=== PATIENT | female | born 1975 | race Caucasian/White ===

== ENCOUNTER → 2021-09-28 | Outpatient (REF) | payer MEDICAID, SELFPAY ==
[2021-09-28 06:47] LABS: Absolute Lymphocyte Count 2.91 X10^3/uL (0.83-4.51); Absolute Neutrophil Count 3.5 X10^3/uL (2.0-7.7); Basophil# 0.05 X10^3/uL; Basophil% 0.7 % (0-1); Eosinophils% 2.8 % (0-5); Hematocrit 43.9 % (37-47); Lymphocyte # 2.91 X10^3/ul (0.83-4.51); Lymphocyte % 40.9 % (19-41); Mean Corp Hgb Conc 34.2 g/dL (32-36); Mean Corpuscular Hgb 30.2 pg (27.0-32.0); Mean Corpuscular Volume 88.5 fL (81-99); Mean Platelet Vol. 12.3 fl (6.2-12.0); Monocyte# 0.46 X10^3/uL; Monocyte% 6.5 % (0-10); NRBC Flagged by Analyzer 0 % (0-5); Neutrophil # 3.48 X10^3/uL (2.7-7.7); Platelet Count 247 K/mm3 (150-450); RBC Distribution Width CV 13.6 % (11.6-14.6); RBC Distribution Width SD 43.6 fl (35.1-43.9); Red Blood Count 4.96 M/mm3 (4.2-5.4); White Blood Count 7.1 K/mm3 (4.4-11.0)
[2021-09-28 07:13] LABS: ALB/GLOB Ratio 0.8 RATIO (0.9-2.4); AST(SGOT) 11 U/L (15-37); Alanine Aminotransfer ALT/SGPT 26 U/L (13-56); Alkaline Phosphatase 130 U/L (45-117); Anion Gap 5 (5-15); BUN 18 mg/dL (7-18); BUN/Creat Ratio 35.9 RATIO (10-20); Calcium,Total 8.6 mg/dL (8.5-10.1); Chloride 111 mmol/L (98-107); EST Glomerular Filtration Rate 141 mL/min (>60); Est Glom Filt Rate - Afr Amer 170 mL/min (>60); Glucose 93 mg/dL (74-106); Potassium 3.7 mmol/L (3.5-5.1); Sodium Level 139 mmol/L (136-145)
[2021-09-28 07:19] LABS: Carbamazepine (Tegretol) < 0.5 ug/mL (4.0-12.0)
== END | disposition home or self-care (01) ==
LOC: OLS.SANC 04:50
PROVIDERS: Referring Provider Internal Medicine; Visit Provider Internal Medicine
DX: D64.9 Anemia, unspecified (principal); G40.909 Epilepsy, unspecified, not intractable, without status epilepticus
CPT/HCPCS: 36415; 80053; 80156; 85025

== ENCOUNTER → 2021-12-29 | Outpatient (REF) | payer MEDICAID, SELFPAY ==
[2021-12-29 10:48] LABS: Hematocrit 42.8 % (37-47); Hemoglobin 13.5 g/dL (12.0-15.0); Mean Corp Hgb Conc 31.5 g/dL (32-36); Mean Corpuscular Hgb 29.5 pg (27.0-32.0); Mean Corpuscular Volume 93.7 fL (81-99); Mean Platelet Vol. 12.6 fl (6.2-12.0); Platelet Count 241 K/mm3 (150-450); RBC Distribution Width CV 13.3 % (11.6-14.6); RBC Distribution Width SD 45.9 fl (35.1-43.9); Red Blood Count 4.57 M/mm3 (4.2-5.4); White Blood Count 5.8 K/mm3 (4.4-11.0)
[2021-12-29 11:10] LABS: ALB/GLOB Ratio 0.8 RATIO (0.9-2.4); AST(SGOT) 16 U/L (15-37); Alanine Aminotransfer ALT/SGPT 30 U/L (13-56); Albumin, Serum 2.9 g/dL (3.2-5.0); Alkaline Phosphatase 106 U/L (45-117); Anion Gap 7 (5-15); BUN 15 mg/dL (7-18); Calcium,Total 8.5 mg/dL (8.5-10.1); Chloride 112 mmol/L (98-107); Creatinine, Serum 0.72 mg/dL (0.55-1.02); EST Glomerular Filtration Rate 93 mL/min (>60); Est Glom Filt Rate - Afr Amer 113 mL/min (>60); Globulin 3.7 g/dL (2.2-4.2); Glucose 95 mg/dL (74-106); Potassium 3.6 mmol/L (3.5-5.1); Protein, Total 6.6 g/dL (6.4-8.2); Sodium Level 143 mmol/L (136-145)
== END | disposition home or self-care (01) ==
LOC: OLS.SANC 05:00
PROVIDERS: Visit Provider Internal Medicine
DX: I10 Essential (primary) hypertension (principal); D64.9 Anemia, unspecified
CPT/HCPCS: 36415; 80053; 85027

== ENCOUNTER → 2022-02-28 | Outpatient (REF) | payer MEDICAID, SELFPAY ==
[2022-02-28 10:26] LABS: Absolute Lymphocyte Count 1.92 X10^3/uL (0.83-4.51); Absolute Neutrophil Count 2.7 X10^3/uL (2.0-7.7); Basophil# 0.07 X10^3/uL; Basophil% 1.3 % (0-1); Eosinophil# 0.15 X10^3/uL; Eosinophils% 2.9 % (0-5); Hematocrit 47.1 % (37-47); Hemoglobin 15.5 g/dL (12.0-15.0); Lymphocyte # 1.92 X10^3/ul (0.83-4.51); Lymphocyte % 36.7 % (19-41); Mean Corp Hgb Conc 32.9 g/dL (32-36); Mean Corpuscular Hgb 30.3 pg (27.0-32.0); Mean Platelet Vol. 12.2 fl (6.2-12.0); Monocyte# 0.33 X10^3/uL; Monocyte% 6.3 % (0-10); NRBC Flagged by Analyzer 0 % (0-5); Neutrophil # 2.74 X10^3/uL (2.7-7.7); Neutrophil % 52.4 % (47-70); Platelet Count 208 K/mm3 (150-450); RBC Distribution Width CV 13.7 % (11.6-14.6); RBC Distribution Width SD 46.6 fl (35.1-43.9); Red Blood Count 5.12 M/mm3 (4.2-5.4); White Blood Count 5.2 K/mm3 (4.4-11.0)
[2022-02-28 10:38] LABS: ALB/GLOB Ratio 0.7 RATIO (0.9-2.4); AST(SGOT) 23 U/L (15-37); Alanine Aminotransfer ALT/SGPT 49 U/L (13-56); Alkaline Phosphatase 124 U/L (45-117); Anion Gap 7 (5-15); BUN 16 mg/dL (7-18); BUN/Creat Ratio 26.4 RATIO (10-20); Chloride 110 mmol/L (98-107); Creatinine, Serum 0.61 mg/dL (0.55-1.02); EST Glomerular Filtration Rate 113 mL/min (>60); Est Glom Filt Rate - Afr Amer 136 mL/min (>60); Globulin 4.2 g/dL (2.2-4.2); Glucose 81 mg/dL (74-106); Potassium 3.9 mmol/L (3.5-5.1); Protein, Total 7.2 g/dL (6.4-8.2); Sodium Level 139 mmol/L (136-145)
[2022-02-28 10:42] LABS: Carbamazepine (Tegretol) < 0.5 ug/mL (4.0-12.0)
== END | disposition home or self-care (01) ==
LOC: OLS.SANC 04:00
PROVIDERS: Referring Provider Internal Medicine; Visit Provider Internal Medicine
DX: E55.9 Vitamin D deficiency, unspecified (principal); D64.9 Anemia, unspecified; M25.50 Pain in unspecified joint
CPT/HCPCS: 36415; 80053; 80156; 85025

== ENCOUNTER → 2022-06-30 | Outpatient (REF) | payer MEDICAID, SELFPAY ==
[2022-06-30 10:02] LABS: Hematocrit 40.5 % (37-47); Hemoglobin 12.4 g/dL (12.0-15.0); Mean Corp Hgb Conc 30.6 g/dL (32-36); Mean Corpuscular Hgb 27.4 pg (27.0-32.0); Mean Corpuscular Volume 89.4 fL (81-99); Mean Platelet Vol. 10.8 fl (6.2-12.0); Platelet Count 285 K/mm3 (150-450); RBC Distribution Width CV 14.9 % (11.6-14.6); RBC Distribution Width SD 49.1 fl (35.1-43.9); Red Blood Count 4.53 M/mm3 (4.2-5.4); White Blood Count 6.4 K/mm3 (4.4-11.0)
[2022-06-30 10:13] LABS: Anion Gap 7 (5-15); BUN 22 mg/dL (7-18); BUN/Creat Ratio 26.5 RATIO (10-20); Calcium,Total 9.1 mg/dL (8.5-10.1); Chloride 107 mmol/L (98-107); Creatinine, Serum 0.83 mg/dL (0.55-1.02); EST Glomerular Filtration Rate 79 mL/min (>60); Est Glom Filt Rate - Afr Amer 95 mL/min (>60); Glucose 100 mg/dL (74-106); Potassium 3.9 mmol/L (3.5-5.1); Sodium Level 138 mmol/L (136-145)
== END | disposition home or self-care (01) ==
LOC: OLS.SANC 06:20
PROVIDERS: Visit Provider Internal Medicine
DX: I10 Essential (primary) hypertension (principal); D64.9 Anemia, unspecified
CPT/HCPCS: 36415; 80048; 85027

== ENCOUNTER → 2022-08-31 | Outpatient (REF) | payer MEDICAID, SELFPAY ==
[2022-08-31 09:23] LABS: Hemoglobin 12.6 g/dL (12.0-15.0); Mean Corp Hgb Conc 30.7 g/dL (32-36); Mean Corpuscular Volume 87.8 fL (81-99); Platelet Count 354 K/mm3 (150-450); RBC Distribution Width CV 15.6 % (11.6-14.6); Red Blood Count 4.67 M/mm3 (4.2-5.4); White Blood Count 6.6 K/mm3 (4.4-11.0)
[2022-08-31 09:52] LABS: ALB/GLOB Ratio 0.6 RATIO (0.9-2.4); AST(SGOT) 12 U/L (15-37); Alanine Aminotransfer ALT/SGPT 24 U/L (13-56); Albumin, Serum 2.6 g/dL (3.2-5.0); Alkaline Phosphatase 112 U/L (45-117); Anion Gap 8 (5-15); BUN 16 mg/dL (7-18); BUN/Creat Ratio 21.6 RATIO (10-20); Calcium,Total 8.5 mg/dL (8.5-10.1); Chloride 110 mmol/L (98-107); Creatinine, Serum 0.74 mg/dL (0.55-1.02); EST Glomerular Filtration Rate 89 mL/min (>60); Est Glom Filt Rate - Afr Amer 108 mL/min (>60); Globulin 4.5 g/dL (2.2-4.2); Glucose 93 mg/dL (74-106); Potassium 4.2 mmol/L (3.5-5.1); Protein, Total 7.1 g/dL (6.4-8.2); Sodium Level 142 mmol/L (136-145)
== END | disposition home or self-care (01) ==
LOC: OLS.SANC 05:00
PROVIDERS: Visit Provider Internal Medicine
DX: D64.9 Anemia, unspecified (principal); I10 Essential (primary) hypertension; Z79.899 Other long term (current) drug therapy
CPT/HCPCS: 36415; 80053; 85027

== ENCOUNTER → 2022-12-29 | Outpatient (REF) | payer MEDICAID, SELFPAY ==
[2022-12-29 09:58] LABS: Hematocrit 41.1 % (37-47); Hemoglobin 12.5 g/dL (12.0-15.0); Mean Corp Hgb Conc 30.4 g/dL (32-36); Mean Corpuscular Hgb 27.6 pg (27.0-32.0); Mean Corpuscular Volume 90.7 fL (81-99); Mean Platelet Vol. 10.7 fl (6.2-12.0); Platelet Count 324 K/mm3 (150-450); RBC Distribution Width CV 14.9 % (11.6-14.6); RBC Distribution Width SD 49.2 fl (35.1-43.9); Red Blood Count 4.53 M/mm3 (4.2-5.4); White Blood Count 6.6 K/mm3 (4.4-11.0)
[2022-12-29 10:25] LABS: ALB/GLOB Ratio 0.5 RATIO (0.9-2.4); AST(SGOT) 14 U/L (15-37); Alanine Aminotransfer ALT/SGPT 24 U/L (13-56); Albumin, Serum 2.7 g/dL (3.2-5.0); Alkaline Phosphatase 116 U/L (45-117); Anion Gap 6 (5-15); BUN 17 mg/dL (7-18); BUN/Creat Ratio 19.8 RATIO (10-20); Chloride 110 mmol/L (98-107); Creatinine, Serum 0.86 mg/dL (0.55-1.02); EST Glomerular Filtration Rate 75 mL/min (>60); Est Glom Filt Rate - Afr Amer 91 mL/min (>60); Globulin 5.1 g/dL (2.2-4.2); Glucose 93 mg/dL (74-106); Potassium 3.6 mmol/L (3.5-5.1); Protein, Total 7.8 g/dL (6.4-8.2); Sodium Level 141 mmol/L (136-145)
== END | disposition home or self-care (01) ==
LOC: OLS.SANC 05:00
PROVIDERS: Visit Provider Internal Medicine
DX: D64.9 Anemia, unspecified (principal); I10 Essential (primary) hypertension; E78.00 Pure hypercholesterolemia, unspecified
CPT/HCPCS: 36415; 80053; 85027

== ENCOUNTER → 2023-02-28 | Outpatient (REF) | payer MEDICAID, SELFPAY ==
[2023-02-28 10:22] LABS: Hematocrit 40.5 % (37-47); Hemoglobin 12.8 g/dL (12.0-15.0); Mean Corp Hgb Conc 31.6 g/dL (32-36); Mean Corpuscular Hgb 28.4 pg (27.0-32.0); Platelet Count 344 K/mm3 (150-450); RBC Distribution Width CV 15.3 % (11.6-14.6); RBC Distribution Width SD 50.6 fl (35.1-43.9); White Blood Count 7.3 K/mm3 (4.4-11.0)
[2023-02-28 10:53] LABS: ALB/GLOB Ratio 0.5 RATIO (0.9-2.4); AST(SGOT) 11 U/L (15-37); Alanine Aminotransfer ALT/SGPT 20 U/L (13-56); Albumin, Serum 2.7 g/dL (3.2-5.0); Alkaline Phosphatase 126 U/L (45-117); Anion Gap 5 (5-15); BUN 13 mg/dL (7-18); BUN/Creat Ratio 17.6 RATIO (10-20); Calcium,Total 8.8 mg/dL (8.5-10.1); Chloride 111 mmol/L (98-107); Creatinine, Serum 0.74 mg/dL (0.55-1.02); EST Glomerular Filtration Rate 90 mL/min (>60); Est Glom Filt Rate - Afr Amer 108 mL/min (>60); Globulin 5.2 g/dL (2.2-4.2); Glucose 88 mg/dL (74-106); Potassium 3.6 mmol/L (3.5-5.1); Protein, Total 7.9 g/dL (6.4-8.2); Sodium Level 139 mmol/L (136-145)
== END | disposition home or self-care (01) ==
LOC: OLS.SANC 05:00
PROVIDERS: Visit Provider Internal Medicine
DX: D64.9 Anemia, unspecified (principal); I10 Essential (primary) hypertension; G40.909 Epilepsy, unspecified, not intractable, without status epilepticus
CPT/HCPCS: 36415; 80053; 85027

== ENCOUNTER → 2023-04-26 | Outpatient (REF) | payer MEDICAID, SELFPAY ==
[2023-04-26 09:13] LABS: Carbamazepine (Tegretol) < 0.5 ug/mL (4.0-12.0)
== END | disposition home or self-care (01) ==
LOC: OLS.SANC 06:16
PROVIDERS: Visit Provider Internal Medicine
DX: D64.9 Anemia, unspecified (principal); I10 Essential (primary) hypertension; Z79.899 Other long term (current) drug therapy
CPT/HCPCS: 36415; 80156

== ENCOUNTER → 2023-06-20 | Outpatient (REF) | payer MEDICAID, SELFPAY ==
[2023-06-20 10:15] LABS: Hematocrit 41.8 % (37-47); Hemoglobin 12.9 g/dL (12.0-15.0); Mean Corp Hgb Conc 30.9 g/dL (32-36); Mean Corpuscular Hgb 27.9 pg (27.0-32.0); Mean Corpuscular Volume 90.3 fL (81-99); Platelet Count 321 K/mm3 (150-450); RBC Distribution Width CV 15.1 % (11.6-14.6); RBC Distribution Width SD 49.9 fl (35.1-43.9); Red Blood Count 4.63 M/mm3 (4.2-5.4); White Blood Count 6.2 K/mm3 (4.4-11.0)
[2023-06-20 10:26] LABS: ALB/GLOB Ratio 0.5 RATIO (0.9-2.4); AST(SGOT) 12 U/L (15-37); Alanine Aminotransfer ALT/SGPT 15 U/L (13-56); Albumin, Serum 2.6 g/dL (3.2-5.0); Alkaline Phosphatase 119 U/L (45-117); Anion Gap 2 (5-15); BUN 16 mg/dL (7-18); BUN/Creat Ratio 19.4 RATIO (10-20); Chloride 110 mmol/L (98-107); Creatinine, Serum 0.83 mg/dL (0.55-1.02); EST Glomerular Filtration Rate 79 mL/min (>60); Est Glom Filt Rate - Afr Amer 95 mL/min (>60); Globulin 5.2 g/dL (2.2-4.2); Glucose 97 mg/dL (74-106); Potassium 3.9 mmol/L (3.5-5.1); Protein, Total 7.8 g/dL (6.4-8.2); Sodium Level 140 mmol/L (136-145)
== END | disposition home or self-care (01) ==
LOC: OLS.SANC 05:00
PROVIDERS: Visit Provider Internal Medicine
DX: D64.9 Anemia, unspecified (principal); I10 Essential (primary) hypertension
CPT/HCPCS: 36415; 80053; 85027

== ENCOUNTER → 2023-07-19 | Outpatient (REF) | payer MEDICAID, SELFPAY ==
--- OUTSIDE RECORDS SUMMARY | 2023-07-19 04:41 | XMS RPT_ITS | CCD ---
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 oriented x2 Heent wnl Heart regular Lungs ctab Abd benign Ext no edema Labs Notable Labs: Current Medications Medication orders reviewed, see MAR Assessment/Plan Principal Problem: Urinary tract infection Bacteremia if contaminant or real on vanco for now Quadiplegia H/o TBI Migraines Bipolar HTN Normal body habitus Plan Await ID opinion on reaction to vanco await final blood cultures FEN:Adult diet Regular GI prophylaxis: PPI ordered DVT prophylaxis: lovenox # Anticipated Discharge - Date - 2 d - Location - [facility] Facility - Pending the following - YOKO M ESTERLE, DO 07/10/23 9:12 AM Pharmacy Vancomycin Consult Follow-Up Note Non-HEALTH DATA ANALYST Patients Current Dosinmg Q12 CREATININE Date Value Ref Range Status 07/10/2023 0.69 0.52 - 1.04 mg/dL Final 07/03/2021 0.72 0.52 - 1.25 mg/dL Final UREA NITROGEN Date Value Ref Range Status 07/10/2023 9 7 - 17 mg/dL Final Auto WBC Date Value Ref Range Status 07/10/2023 6.5 3.6 - 10.7 10*3/uL Final Ht Readings from Last 1 Encounters: 07/07/23 1.727 m (5' 8 ) Wt Readings from Last 1 Encounters: 07/07/23 87.9 kg (193 lb 12.6 oz) Body mass index is Body mass index is 29.46 kg/m . Random: 19.4 mcg/ml drawn correctly at 07/10/23 0548 Calculated AUC: 659 mg/L.hr Assessment/Plan: Calculated AUC is supratherapeutic at 569 mg/L.hr. Will decrease dose to 1g Q12 and continue to follow. Bright red face/neck noted at end of IV Vanc dose. Denies itch/Shortness of breath. Dr Morse/Dr Toscano notified. Redness faded 90% within 45 min and fiine minmally raised ,tiny dots scattered face/neck, upper chest. Benadryl 25mg IVP per order Dr Toscano. Continues to deny itching/burning. Images from the original note were not included. OCCUPATIONAL THERAPY [facility] Name/MRN: Diana Calabrese ([id number]) Date: 07/09/2023 OT orders received and chart reviewed. Per chart review, pt is dependent with ADLs and is bed bound at baseline. Pt not appropriate for OT evaluations. Will complete orders. Ranjana Enriquez OT Images from the original note were not included. PHYSICAL THERAPY [facility] Name/MRN: Diana Calabrese ([id number]) Date: 07/09/2023 Orders received, chart reviewed, and evaluation attempted. Spoke with nursing and patient is bed-bound and is at baseline functional level. Acute PT not indicated at this time. Orders complete. Wallace Napoles PT Department of Family Medicine Daily Progress Note Subjective Chief Complaint (required for billing): Urinary tract infection Pt doing ok today her second blood culture is positive. Dr Toscano is not sure if this is acccurate or a contaminant. She is on vanco for now ROS: Review of Systems Objective BP 99/65 Pulse 85 Temp 37.1 C (98.7 F) (Temporal) Resp 16 Ht 5' 8 (1.727 m) Wt 193 lb 12.6 oz (87.9 kg) SpO2 97% BMI 29.46 kg/m Physical Exam Pt is alert and oriented x2 Heent wnl Heart regular Lungs ctab Abd benign Ext no edema Labs Notable Labs: K 3.3 Current Medications Medication orders reviewed, see MAR Assessment/Plan Principal Problem: Urinary tract infection Bacteremia if contaminant or real on vanco for now Quadiplegia H/o TBI Migraines Bipolar HTN FEN:Adult diet Regular GI prophylaxis: PPI ordered DVT prophylaxis: lovenox # Anticipated Discharge - Date - 2 d - Location - Skilled Facility - Pending the following - YOKO MORSE DO 07/09/23 9:30 AM Nutrition rescreen completed. Pt referred to RD for poor oral intakes. documented in this encounter [facility] 07-11-2023 Note Formatting of this n ote might be different from the original. Discharge med list transmitted to return back to [facility] via [facility]port per TCC request. [facility] 07-11-2023 Note Formatting of this n ote might be different from the original. Discharge med list transmitted to return back to [facility] via [facility]port per TCC request. [facility] 07-11-2023 Miscellaneous Notes Discharge med list transmitted to return back to [facility] via [facility] per TCC request. Dc to [facility] this evening at 6:00. [facility] to transport. Ambulance form completed. [facility]port message sent the [facility] to notify them of patients return. Left message for patients legal Guardian, Hydropon[employer] Grower [place] to notify him of discharge and the pick up driver time. Report number provided to the bedside nurse. Received message from bedside RN; reports Dr. Morse is ready for DC. 2 [facility] aware. [facility] tasked to send final MAR, DC summary and final updates to [facility]. Received message from Dr. Morse; states patient is now complaining of abdominal pain. CT abdomen ordered. Will plan for discharge later today. Bedside RN and [address] aware. 1045: TCC section of ERNESTO completed. Noted patient discharge today. Received message from [facility]. Patient is a bed hold and no authorization required to return. Noted patient has Legal Guardian; Hydroponics Grower Eric Chappell: office, or Cell, . Spoke with Legal Guardian over the phone. Explained role. He is in agreement to return to [facility] when ready. He is aware to anticipate DC today. Facility updated. Will discuss in rounds today. Referral placed to [facility] via [facility] per TCC request. Await review and response regarding ability to accept. TCC notified. Care Managment Initial Assessment Date: 07/10/2023 Patient Name: Diana Calabrese : 1975 Patient Information Source of Information: Patient Cognition/Language: Impaired, Other (Comment) (Delayed -TBI) Permission given to speak with patient labor union business representative/caregiver as indicated: Yes Confirmation of Payer with patient/family: Yes Payer Name: Blaise Moreno [phone], friend, Erin Mora [phone], friend [place]: No Confirmation of Primary Care Physician: Confirmed PCP Name: Venkat Malin Primary Caregiver: Other (Comment) If assistance needed, confirmed caregiver ready, willing and able to care for patient at discharge: Confirmed with: Living Arrangements Current Residence: Number of Floors Number of Entry Steps: Bed/Bath Levels: Facility: [facility] Facility Name: [facility] Plan to Return: Yes Lives with: Other (Comment) Support Systems: Comments (Other) Activities of Daily Living Ambulation: Total Care (Patient is bed bound) Bathing/Dressing: Total Care Elimination/Continence/Toileting: Total Care Feeding: Total Care Who Assists with Activities of Daily Living: [facility] Instrumental Activities of Daily Living Prescription Coverage: Yes Pharmacy Used: Facility Medication Management: Assistance Type: Dose packaging system Who assists with medication securing and setup?: Facility Transportation/Shopping: Transportation Mode: Needs Assistance with Transportation at Discharge: Yes Meal Preparation: Assistance Provider Meal Prep Assistance Provider Name: Facility Laundry/Cleaning: Assistance Provider Laundry/Cleaning Assistance Provider Name: Facility Finances/Bill Paying: Assistance Provider Finances/Bill Payer Assistance Provider Name: Facility Communication: Independent Types of Care Services/Equipment Utilized Care Services: Dialysis Type: Durable Medical Equipment: Patient's Goal/Discharge Plan Patient expects to be discharged to: Return to [facility] Discharge Planning Actions: Continue to follow, [facility] Facility referral indicated Patient's Choice Rights and [employer] and Collaborative Relationships Disclosed as Indicated for Post-Acute Care: Interdisciplinary Team Engagement: Social Work Referral for: Additional Information: Chart reviewed. Patient admitted to [facility] for treatment of UTI. Blood cultures pending. HX of TBI, Bipolar, Paraplegia. Regular diet. On IV Vancomycin. Met with patient at bedside today. Explained role. Patient informs she is from [facility] and she would like to return there at discharge. W[employer] TURB[employer] ENGINEER tasked to create referral to [facility]. Will need to confirm level of care. DC plan: Return to [facility] Fatuma Palma RN Problem: Knowledge Deficit Goal: Patient/family/caregiver demonstrates understanding of disease process, treatment plan, medications, and discharge instructions Outcome: Progressing Problem: Potential for Compromised Skin Integrity Goal: Skin Integrity is Maintained or Improved Outcome: Progressing Goal: Nutritional status is improving Outcome: Progressing Problem: Urinary Incontinence Goal: Perineal skin integrity is maintained or improved Outcome: Progressing The patient is Moderately Unstable - Medium risk of patient condition declining or worsening The patient's goals for the shift include rest The clinical goals for the shift include rest Over the shift, the patient did not make progress toward the following goals. Barriers to progression include discomfort and decreased rest. Recommendations to address these barriers include medications per MAR, provide a restful environment. Problem: Knowledge Deficit Goal: Patient/family/caregiver demonstrates understanding of disease process, treatment plan, medications, and discharge instructions Outcome: Progressing Problem: Potential for Compromised Skin Integrity Goal: Skin Integrity is Maintained or Improved Outcome: Progressing Goal: Nutritional status is improving Outcome: Progressing Problem: Urinary Incontinence Goal: Perineal skin integrity is maintained or improved Outcome: Progressing The patient is Moderately Stable - Low risk of patient condition declining or worsening The patient's goals for the shift include rest The clinical goals for the shift include rest Over the shift, the patient did not make progress toward the following goals. Barriers to progression include . Recommendations to address these barriers include . Concern for patient BP being low, assessed patient in ED. Map 70s despite 2L IVF bolus. Ordered Albumin as lab revealed slightly low. Mentation baseline per previous notes. After review of previous admissions, patient's normal baseline BP 90/60s. Patient confirmed this is her normal. Does not need ICU level of care at this time. Please reach out if this changes. documented in this encounter [facility] 07-11-2023 Note Formatting of this n ote might be different from the original. Dc to [facility] this evening at 6:00. [facility] to transport. Ambulance form completed. [facility]port message sent the [facility] to notify them of patients return. Left message for patients legal Guardian, Hydropon[employer] Grower [place] to notify him of discharge and the pick up driver time. Report number provided to the bedside nurse. [facility] 07-11-2023 Note Formatting of this n ote might be different from the original. Dc to [facility] this evening at 6:00. [facility] to transport. Ambulance form completed. [facility]port message sent the [facility] to notify them of patients return. Left message for patients legal Guardian, Hydropon[employer] Grower [place] to notify him of discharge and the pick up driver time. Report number provided to the bedside nurse. [facility] 07-11-2023 Note Formatting of this n ote might be different from the original. Received message from bedside RN; reports Dr. Morse is ready for DC. 2 [facility] aware. [employer] ENGINEER tasked to send final MAR, DC summary and final updates to [facility]. [facility] 07-11-2023 Note Formatting of this n ote might be different from the original. Received message from bedside RN; reports Dr. Morse is ready for DC. 2 [facility] aware. W[employer] TURB[employer] ENGINEER tasked to send final MAR, DC summary and final updates to [facility]. [facility] 07-11-2023 Note Discharge Summary Diana Calabrese : 1975 ADMIT DATE: 07/07/2023 DISCHARGE DATE: 07/11/2023 PRIMARY CARE PHYSICIAN: Venkat Malin VISIT STATUS: Admission CODE STATUS: Full Code DISCHARGE DIAGNOSES: Principal Problem: Urinary tract infection HOSPITAL COURSE: Diana Calabrese is a 47 y.o. female with PMH per EMR history of Alzheimer's dementia, hypertension, quadriplegia, [facility] from [facility] facility with concern for altered mental status. Patient endorses recent subjective fever, dehydration, denies any other acute symptoms including chest pain, shortness of breath, vomiting, pain, fall or injury, she is alert and oriented, seemingly answering questions appropriately ocular provide limited history. Per report, patient brought by EMS with concern for changes in mental status. Pt diagnosed with UTI in the ER and now has positive blood cultures for G+ cocci. She is currently on rocephin. Her blood cultures both came back positive for G+ cocci form 2 different sites. ID felt this was a contaminant so her vanco was stopped. She also had an allergic reaction to it with a red rash. They felt that due to the fact she had no urinary s/s that she didn't need treatment for the uti so the rocephin was also stopped. She is returning to the [facility] today. SIGNIFICANT DIAGNOSTIC STUDIES: Labs xrays CONSULTANTS: ID RECOMMENDED NEXT STEPS: snf DISCHARGE MEDICATIONS: Medication List CONTINUE taking these medications acetaminophen 325 MG tablet Commonly known as: Tylenol baclofen 10 MG tablet Commonly known as: Lioresal * bisacodyl 10 MG suppository Commonly known as: Dulcolax * bisacodyl 5 MG EC tablet Commonly known as: Dulcolax clonazePAM 1 MG tablet Commonly known as: KlonoPIN gabapentin 400 MG capsule Commonly known as: Neurontin lactulose 10 GM/15ML solution Commonly known as: Chronulac magnesium hydroxide 400 MG/5ML suspension Commonly known as: Milk of Magnesia omega-3 1000 MG capsule Commonly known as: Fish Oil omeprazole [address] capsule Commonly known as: PriLOSEC OXcarbazepine 300 MG tablet Commonly known as: Trileptal polyethylene glycol (PEG) 3350 17 GM/SCOOP powder Commonly known as: Glycolax * sertraline 25 MG tablet Commonly known as: Zoloft * sertraline 50 MG tablet Commonly known as: Zoloft tamsulosin 0.4 MG 24 hr capsule Commonly known as: Flomax topiramate 200 MG tablet Commonly known as: Topamax * This list has 4 medication(s) that are the same as other medications prescribed for you. Read the directions carefully, and ask your doctor or other care provider to review them with you. DIET: Adult diet Regular ACTIVITY: Up with assist COMPLEXITY OF FOLLOW UP: [] Moderate Complexity: follow up within 7-14 calendar days (91135) [] Severe Complexity: follow up within 7 calendar days (49526) FOLLOW UP TESTING, PENDING RESULTS OR REFERRALS AT TRANSITIONAL CARE VISIT: [] Yes [] No PENDING STUDIES: none DISPOSITION: Skilled Facility [facility]ACILITY[facility]ARE [facility] up [facility]in at [facility] INSTRUCTIONS TO MA/SW: Please call patient on day after discharge (must document patient contacted within 2 business days of discharge). FOLLOW UP QUESTIONS FOR MA/SW: 1. Did you get medications filled and taking them as instructed from discharge? 2. Are you following your discharge instructions from your hospital stay? 3. Please confirm patient is scheduled for a follow up appointment within the above time frame. DISCHARGE TIME: > 30 minutes SIGNED: YOKO MORSE DO 07/11/2023, 8:54 AM [facility] 07-11-2023 Note Formatting of this n ote might be different from the original. Received message from Dr. Morse; states patient is now complaining of abdominal pain. CT abdomen ordered. Will plan for discharge later today. Bedside RN and [address] [place] [address] aware. 1045: TCC section of ERNESTO completed. [facility] 07-11-2023 Note Formatting of this n ote might be different from the original. Received message from Dr. Morse; states patient is now complaining of abdominal pain. CT abdomen ordered. Will plan for discharge later today. Bedside RN and [address] aware. 1045: TCC section of ERNESTO completed. [facility] 07-11-2023 Hospital course Narrative Images from the original note were not included. Discharge Summary Diana Calabrese : 1975 ADMIT DATE: 07/07/2023 DISCHARGE DATE: 07/11/2023 PRIMARY CARE PHYSICIAN: Venkat Malin VISIT STATUS: Admission CODE STATUS: Full Code DISCHARGE DIAGNOSES: Principal Problem: Urinary tract infection HOSPITAL COURSE: Diana Calabrese is a 47 y.o. female with PMH per EMR history of Alzheimer's dementia, hypertension, quadriplegia, presents from [facility] facility with concern for altered mental status. Patient endorses recent subjective fever, dehydration, denies any other acute symptoms including chest pain, shortness of breath, vomiting, pain, fall or injury, she is alert and oriented, seemingly answering questions appropriately ocular provide limited history. Per report, patient brought by EMS with concern for changes in mental status. Pt diagnosed with UTI in the ER and now has positive blood cultures for G+ cocci. She is currently on rocephin. Her blood cultures both came back positive for G+ cocci form 2 different sites. ID felt this was a contaminant so her vanco was stopped. She also had an allergic reaction to it with a red rash. They felt that due to the fact she had no urinary s/s that she didn't need treatment for the uti so the rocephin was also stopped. She is returning to the [facility] today. SIGNIFICANT DIAGNOSTIC STUDIES: Labs xrays CONSULTANTS: ALEKSEY RECOMMENDED NEXT STEPS: snf DISCHARGE MEDICATIONS: Medication List CONTINUE taking these medications acetaminophen 325 MG tablet Commonly known as: Tylenol baclofen 10 MG tablet Commonly known as: Lioresal * bisacodyl 10 MG suppository Commonly known as: Dulcolax * bisacodyl 5 MG EC tablet Commonly known as: Dulcolax clonazePAM 1 MG tablet Commonly known as: KlonoPIN gabapentin 400 MG capsule Commonly known as: Neurontin lactulose 10 GM/15ML solution Commonly known as: Chronulac magnesium hydroxide 400 MG/5ML suspension Commonly known as: Milk of Magnesia omega-3 1000 MG capsule Commonly known as: Fish Oil omeprazole [address] capsule Commonly known as: PriLOSEC OXcarbazepine 300 MG tablet Commonly known as: Trileptal polyethylene glycol (PEG) 3350 17 GM/SCOOP powder Commonly known as: Glycolax * sertraline 25 MG tablet Commonly known as: Zoloft * sertraline 50 MG tablet Commonly known as: Zoloft tamsulosin 0.4 MG 24 hr capsule Commonly known as: Flomax topiramate 200 MG tablet Commonly known as: Topamax * This list has 4 medication(s) that are the same as other medications prescribed for you. Read the directions carefully, and ask your doctor or other care provider to review them with you. DIET: Adult diet Regular ACTIVITY: Up with assist COMPLEXITY OF FOLLOW UP: [] Moderate Complexity: follow up within 7-14 calendar days (54528) [] Severe Complexity: follow up within 7 calendar days (56095) FOLLOW UP TESTING, PENDING RESULTS OR REFERRALS AT TRANSITIONAL CARE VISIT: [] Yes [] No PENDING STUDIES: none DISPOSITION: Skilled Facility FACILITY[facility]HOME CARE AGENCY [facility] Follow up with [facility] Malin at the [facility] INSTRUCTIONS TO MA/SW: Please call patient on day after discharge (must document patient contacted within 2 business days of discharge). FOLLOW UP QUESTIONS FOR MA/SW: 1. Did you get medications filled and taking them as instructed from discharge? 2. Are you following your discharge instructions from your hospital stay? 3. Please confirm patient is scheduled for a follow up appointment within the above time frame. DISCHARGE TIME: > 30 minutes SIGNED: YOKO MORSE DO 07/11/2023, 8:54 AM documented in this encounter [facility] 07-11-2023 Note Formatting of this n ote might be different from the original. Noted patient discharge today. Received message from [facility]. Patient is a bed hold and no authorization required to return. Noted patient has Legal Guardian; Hydroponics Grower Eric Chappell: office, or Cell, . Spoke with Legal Guardian over the phone. Explained role. He is in agreement to return to [facility] when ready. He is aware to anticipate DC today. Facility updated. Will discuss in rounds today. [facility] 07-11-2023 Note Formatting of this n ote might be different from the original. Noted patient discharge today. Received message from [facility]. Patient is a bed hold and no authorization required to return. Noted patient has Legal Guardian; Hydroponics Grower Eric Chappell: office, or Cell, . Spoke with Legal Guardian over the phone. Explained role. He is in agreement to return to [facility] when ready. He is aware to anticipate DC today. Facility updated. Will discuss in rounds today. [facility] 07-10-2023 Hospital Discharg e suki Da Silva RN - 07/10/2023 7:36 PM EST Continuity of Care Form Patient Name: Diana Calabrese : 1975 Admit date: 07/07/2023 Discharge date: 07-11-23 Code Status Order: Full Code Advance Directives: Y Admitting Physician: Yoko Morse DO PCP: Venkat Malin Discharging Nurse: Jere RN Discharging Hospital Unit/Room#: B2-266/B2-266 B Discharging Unit Emergency Contact: Extended Emergency Contact Information Primary Emergency Contact: Blaise Moreno Relation: Other Secondary Emergency Contact: Erin Mora Relation: Other Past Surgical History: Past Surgical History: Procedure Laterality Date CHOLECYSTECTOMY 11/03/2016 TRACHEOSTOMY Immunization History: Immunization History Administered Date(s) Administered Pfizer SARS-CoV-2 Vaccination 08/05/2020, 08/26/2020, 05/20/2021 Tdap 07/03/2021 Active Problems: Medical Problems Problem List * (Principal) Urinary tract infection Calculus of gallbladder with chronic cholecystitis without obstruction Quadriplegia (HCC) Low back pain Chronic pain due to injury Abnormal uterine bleeding Elevated liver enzymes Isolation/Infection: No active isolations No active infections Nurse Assessment: Last Vital Signs: BP 102/61 (BP Location: Right arm, Patient Position: Lying) Pulse 74 Temp 36.6 C (97.8 F) (Temporal) Resp 16 Ht 5' 8 (1.727 m) Wt 202 lb (91.6 kg) SpO2 100% BMI 30.71 kg/m Last documented pain score (0-10 scale): Last Weight: Wt Readings from Last 1 Encounters: 07/10/23 202 lb (91.6 kg) Mental Status: ERNESTO Patient Mental Status: oriented, alert, and poor frustrayion tolerance. IV Access: ERNESTO IV Access: None Nursing Mobility/ADLs: Walking Total assistance Transfer Independent Bathing Total assistance Dressing Total assistance Toileting Total assistance Feeding Minimal assistance Health Center Associate Total assistance Med Delivery no Wound Care Documentation and Therapy: Elimination: Continence: Bowel: no Bladder: no Urinary Catheter: None Colostomy/Ileostomy/Ileal Conduit: None Date of Last BM: 07/11/23 Intake/Output Summary (Last 24 hours) at 07/10/2023 1936 Last data filed at 07/10/2023 0800 Gross per 24 hour Intake 370 ml Output 1000 ml Net -630 ml I/O last 3 completed shifts: In: 620 (6.8 mL/kg) [P.O.:370; IV Piggyback:250] Out: 1700 (18.6 mL/kg) [Urine:1700 (0.5 mL/kg/hr)] Weight: 91.6 kg Safety Concerns: at risk for falls Impairments/Disabilities: paralysis - quad Nutrition Therapy: Current Nutrition Therapy: Oral diet: general Routes of Feeding: oral Liquids: thin liquids Daily Fluid Restriction: no Last Modified Barium Swallow with Video (Video Swallowing Test): not done Treatments at the Time of Hospital Discharge: Respiratory Treatments: na Oxygen Therapy: is not on home oxygen therapy. Ventilator: No ventilator support Rehab Therapies: physical therapy Weight Bearing Status/Restrictions: non-weight bearing Other Medical Equipment (for information only, NOT a DME order): none Other Treatments: Patient's personal belongings (please select all that are sent with patient): 2 stuffed toys RN SIGNATURE: MANAGEMENT/SOCIAL WORK SECTION Inpatient Status Date: 07-07-2023 Readmission Risk Assessment Score: @[email or web address]@ Discharging to Facility/ Agency Name: Return to [facility] Address: [address] [place] [address] Fax: Dialysis Facility (if applicable) Name: Address: Dialysis Schedule: Phone: Fax: [employer] signature: ICIAN SECTION Prognosis: poor Condition at Discharge: stable Rehab Potential (if transferring to Rehab): poor Recommended Labs or Other Treatments After Discharge: none Physician Certification: I certify the above information and transfer of Diana Calabrese is necessary for the continuing treatment of the diagnosis listed and that she requires correction facility for greater than 30 days. Update Admission H&P: No change in H&P PHYSICIAN SIGNATURE: documented in this encounter [facility] 07-10-2023 Note [facility] - Infectious Diseases Attending Progress Note Subjective: Follow up for CoNS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 questionnaire Fear of Current or Ex-Partner: No Emotionally Abused: No Physically Abused: No Sexually Abused: No Housing Stability: High Risk (07/08/2023) Housing Stability Vital Sign Unable to Pay for Housing in the Last Year: No Number of Places Lived in the Last Year: 4 Unstable Housing in the Last Year: No Family History: No family history on file. REVIEW OF SYSTEMS: Review of Systems 10 point ros negative except for HPI Objective Vitals: BP 92/60 Pulse 88 Temp 36.9 C (98.5 F) (Temporal) Resp 20 Ht 5' 8 (1.727 m) Wt 193 lb 12.6 oz (87.9 kg) SpO2 95% BMI 29.46 kg/m Physical Exam Pt is alert and oriented x2 Heent wnl Heart regular Lungs ctab Abd benign Ext no edema Assessment/Plan Patient Active Problem List Diagnosis Calculus of gallbladder with chronic cholecystitis without obstruction Quadriplegia (HCC) Low back pain Chronic pain due to injury Abnormal uterine bleeding Elevated liver enzymes Urinary tract infection Urosepsis Quadiplegia H/o TBI Migraines Bipolar HTN Plan Admit to tele Consult ID Iv rocephin Pt/ot Await blood culture results YOKO MORSE DO 07/08/23 9:35 AM [facility] 07-08-2023 History and physical note Department of Family Medicine Attending History and Physical CHIEF COMPLAINT: AMS Reason for Admission: uti History Obtained From: medical records History of Present Illness Diana Calabrese is a 47 y.o. female with PMH per EMR history of Alzheimer's dementia, hypertension, quadriplegia, [facility] from [facility] with concern for altered mental status. Patient endorses recent subjective fever, dehydration, denies any other acute symptoms including chest pain, shortness of breath, vomiting, pain, fall or injury, she is alert and oriented, seemingly answering questions appropriately ocular provide limited history. Per report, patient brought by EMS with concern for changes in mental status. Pt diagnosed with UTI in the ER and now has positive blood cultures for G+ cocci. She is currently on rocephin Past Medical History: Past Medical History: Diagnosis Date Abnormal uterine bleeding 07/19/2017 Alzheimer's dementia (HCC) Anemia Anxiety Bipolar 1 disorder (HCC) Cholecystitis with cholelithiasis SCHEDULED FOR SURGERY TODAT (11/03/2016) Constipated Dementia (HCC) Dysarthria Dysphagia Elevated liver enzymes Epilepsy (HCC) H/O urinary tract infection High blood cholesterol Hypertension Insomnia Joint pain Major depression Migraine Mononeuropathy Neuromuscular dysfunction of bladder Other migraine, not intractable, with status migrainosus Personal history of traumatic brain injury Pseudobulbar affect PTSD (post-traumatic stress disorder) Quadriplegia (HCC) Quadriplegia, unspecified (CMS/HCC) (HCC) Urine retention Vitamin D deficiency Past Surgical History: Past Surgical History: Procedure Laterality Date CHOLECYSTECTOMY 11/03/2016 TRACHEOSTOMY Medications Prior to Admission: Medications Prior to Admission Medication Sig Dispense Refill Last Dose acetaminophen (Tylenol) 325 MG tablet Take 650 mg by mouth every 6 hours as needed. baclofen (Lioresal) 10 MG tablet bisacodyl (Dulcolax) 10 MG suppository Insert 10 mg into the rectum. bisacodyl (Dulcolax) 5 MG EC tablet Take 5 mg by mouth daily as needed. clonazePAM (KlonoPIN) 1 MG tablet gabapentin (Neurontin) 400 MG capsule lactulose (Chronulac) 10 GM/15ML solution magnesium hydroxide (Milk of Magnesia) 400 MG/5ML suspension Take 30 mL by mouth. omega-3 (Fish Oil) 1000 MG capsule Take 1,000 mg by mouth daily. omeprazole (PriLOSEC) [address] capsule Take 20 mg by mouth in the morning. OXcarbazepine (Trileptal) 300 MG tablet polyethylene glycol, PEG, 3350 (Glycolax) 17 GM/SCOOP powder Take 17 g by mouth daily. sertraline (Zoloft) 25 MG tablet Take by mouth daily. sertraline (Zoloft) 50 MG tablet tamsulosin (Flomax) 0.4 MG 24 hr capsule topiramate (Topamax) 200 MG tablet Allergies: Alcohol, Avocado, Kiwi extract, Morphine, Pineapple, and Latex Social History: Social History Socioeconomic History Marital status: Single Tobacco Use Smoking status: Former Smokeless tobacco: Never Vaping Use Vaping Use: Never used Substance and Sexual Activity Alcohol use: No Drug use: No Sexual activity: Defer Social Determinants of Health Financial Resource Strain: Low Risk (07/08/2023) Overall Financial Resource Strain (CARDIA) Difficulty of Paying Living Expenses: Not hard at all Food Insecurity: No Food Insecurity (07/08/2023) Hunger Vital Sign Worried About Running Out of Food in the Last Year: Never true Ran Out of Food in the Last Year: Never true Transportation Needs: No Transportation Needs (07/08/2023) PRAPARE - Transportation Lack of Transportation (Medical): No Lack of Transportation (Non-Medical): No Physical Activity: Inactive (07/08/2023) Exercise Vital Sign Days of Exercise per Week: 0 days Minutes of Exercise per Session: 0 min Stress: No Stress Concern Present (07/08/2023) [employer] [place] [employer] - Occupational Stress Questionnaire Feeling of Stress : Not at all Social Connections: Unknown (07/08/2023) Social Connection and Isolation Panel [NHANES] Frequency of Communication with Friends and Family: Patient refused Frequency of Social Gatherings with Friends and Family: Patient refused Attends Gnosticism Services: Never Active Member of Clubs or Organizations: No Attends Club or Organization Meetings: Never Marital Status: Never Intimate Partner Violence: Not At Risk (07/07/2023) Humiliation, Afraid, Rape, and Kick questionnaire Fear of Current or Ex-Partner: No Emotionally Abused: No Physically Abused: No Sexually Abused: No Housing Stability: High Risk (07/08/2023) Housing Stability Vital Sign Unable to Pay for Housing in the Last Year: No Number of Places Lived in the Last Year: 4 Unstable Housing in the Last Year: No Family History: No family history on file. REVIEW OF SYSTEMS: Review of Systems 10 point ros negative except for HPI Objective Vitals: BP 92/60 Pulse 88 Temp 36.9 C (98.5 F) (Temporal) Resp 20 Ht 5' 8 (1.727 m) Wt 193 lb 12.6 oz (87.9 kg) SpO2 95% BMI 29.46 kg/m Physical Exam Pt is alert and oriented x2 Heent wnl Heart regular Lungs ctab Abd benign Ext no edema Assessment/Plan Patient Active Problem List Diagnosis Calculus of gallbladder with chronic cholecystitis without obstruction Quadriplegia (HCC) Low back pain Chronic pain due to injury Abnormal uterine bleeding Elevated liver enzymes Urinary tract infection Urosepsis Quadiplegia H/o TBI Migraines Bipolar HTN Plan Admit to tele Consult ID Iv rocephin Pt/ot Await blood culture results YOKO MORSE DO 07/08/23 9:35 AM documented in this encounter [employer] 07-08-2023 Plan of care note Problem: Knowledge Deficit Goal: Patient/family/caregiver demonstrates understanding of disease process, treatment plan, medications, and discharge instructions Outcome: Progressing Problem: Potential for Compromised Skin Integrity Goal: Skin Integrity is Maintained or Improved Outcome: Progressing Goal: Nutritional status is improving Outcome: Progressing Problem: Urinary Incontinence Goal: Perineal skin integrity is maintained or improved Outcome: Progressing The patient is Moderately Stable - Low risk of patient condition declining or worsening The patient's goals for the shift include rest The clinical goals for the shift include rest Over the shift, the patient did not make progress toward the following goals. Barriers to progression include . Recommendations to address these barriers include . [facility] 07-07-2023 Note Formatting of this n ote might be different from the original. Concern for patient BP being low, assessed patient in ED. Map 70s despite 2L IVF bolus. Ordered Albumin as lab revealed slightly low. Mentation baseline per previous notes. After review of previous admissions, patient's normal baseline BP 90/60s. Patient confirmed this is her normal. Does not need ICU level of care at this time. Please reach out if this changes. [employer] Work Phone: 07-07-2023 Note Formatting of this n ote might be different from the original. Concern for patient BP being low, assessed patient in ED. Map 70s despite 2L IVF bolus. Ordered Albumin as lab revealed slightly low. Mentation baseline per previous notes. After review of previous admissions, patient's normal baseline BP 90/60s. Patient confirmed this is her normal. Does not need ICU level of care at this time. Please reach out if this changes. [employer] Work Phone: 07-07-2023 Emergency department Note Bed: 14 Expected date: Expected time: Means of arrival: Comments: Darshan Read RN 07/07/23 [id number] [employer] 07-07-2023 Emergency department Note Emergency Department Encounter [facility] ED Patient: Diana Calabrese : 1975 Date of Evaluation: 07/07/2023 ED Provider: Dakotah Walters MD Note: I wore an N95 mask and gloves during this encounter. CHIEF COMPLAINT: Altered mental status HPI: Diana Calabrese is a 47 y.o. female with PMH per EMR history of Alzheimer's dementia, hypertension, quadriplegia, presents from [facility] facility with concern for altered mental status. Patient endorses recent subjective fever, dehydration, denies any other acute symptoms including chest pain, shortness of breath, vomiting, pain, fall or injury, she is alert and oriented, seemingly answering questions appropriately ocular provide limited history. Per report, patient brought by EMS with concern for changes in mental status. REVIEW OF SYSTEMS: Pertinent positives and negatives as per HPI. HISTORIES: PAST MEDICAL HISTORY: as per HPI SOCIAL HISTORY: Per EMR former tobacco use, no alcohol or drug use MEDICATIONS: Nursing notes and EMR reviewed ALLERGIES: Nursing notes and EMR reviewed PHYSICAL EXAM: Vital signs: reviewed General: no apparent distress or discomfort, chronically ill appearing, nontoxic appearing Eyes: no conjunctival injection, eyes tracking HEENT: airway patent, mucous membranes dry Cardiovascular: regular rhythm, normal rate Respiratory: non-labored breathing, breath sounds clear, no wheezing crackles or rhonchi, no tachypnea Gastrointestinal: soft, non-distended, non-tender to palpation throughout Extremities: no obvious deformity, non edematous, no wounds bilateral feet Integumentary: warm, dry, no sacral wound Neurologic: Alert, oriented to month and age, seemingly answering questions appropriately, tracks with eyes, follows commands, motor weakness in all extremities-patient reports baseline MEDICAL DECISION MAKING: Medications - No data to display Diana Calabrese is a 47 y.o. female who presents as above, report of altered mental status, patient endorses subjective fever, dehydration, clinically appears dehydrated, she is afebrile, borderline hypotensive with otherwise reassuring vitals, presentation concerning for an occult infectious or metabolic process, lesser suspicion for an intracranial process, will obtain workup to evaluate including CT head, EKG, chest x-ray, labs evaluation, urinalysis, will treat with IV fluids. Labs obtained, interpreted by me, notable for glucose within acceptable range, no renal dysfunction, leukocytosis urinalysis nitrite positive loaded with bacteria-we will obtain urine culture treat with ceftriaxone, patient developed hypotensive blood pressure-will obtain blood cultures and lactate and treat with additional IV fluid bolus (total greater than 30 cc/kg) EKG obtained, per my interpretation, notable for sinus rhythm. Troponin WNL CXR obtained, interpreted per radiologist no acute findings CT head per radiologist interpretation, no significant interval change since May 2022, fairly extensive bilateral frontal parietal encephalomalacia Patient's blood pressure remained hypotensive, however MAP greater than 65, discussed with admitting Dr. Morse, she is comfortable deferring ICU consult, and accepts for telemetry admission for further evaluation and management including antibiotics, patient appropriate for admission at this time. Note: Due to hypotension, ICU consulted, VALENCIA Fernando evaluated the patient, MAP currently greater than 65, agrees with telemetry admission. DIAGNOSIS: Urinary tract infection, hypotension DISPOSITION: Admission Comment: Please note this report has been produced using speech recognition software and may contain errors related to that system including errors in grammar, punctuation, and spelling, as well as words and phrases that may be inappropriate. If there are any questions or concerns please feel free to contact the dictating provider for clarification. Dakotah Walters MD [facility] Dakotah Walters MD 07/07/232049 Dakotah Walters MD 07/07/232131 Arrived via ems [place] [facility] [place] AMS per staff, A/0 x3 per EMS, patient A/0 x3, GCS 15, able to speak in slow clear sentences and respond to questions, providing limited pmhx, placed on monitor, continue with plan of care, patient with call light within reach Bed: 14 Expected date: Expected time: Means of arrival: Comments: Darshan Read RN 07/07/23 [id number] documented in this encounter [facility] 07-07-2023 Emergency department Triage note Arrived via ems from [facility] [place] AMS per staff, A/0 x3 per EMS, patient A/0 x3, GCS 15, able to speak in slow clear sentences and respond to questions, providing limited pmhx, placed on monitor, continue with plan of care, patient with call light within reach [facility] 07-07-2023 Physician Emergency department Note Emergency Department Encounter [facility] ED Patient: Diana Calabrese : 1975 Date of Evaluation: 07/07/2023 ED Provider: Dakotah Walters MD Note: I wore an N95 mask and gloves during this encounter. CHIEF COMPLAINT: Altered mental status HPI: Diana Calabrese is a 47 y.o. female with PMH per EMR history of Alzheimer's dementia, hypertension, quadriplegia, presents from [facility] facility with concern for altered mental status. Patient endorses recent subjective fever, dehydration, denies any other acute symptoms including chest pain, shortness of breath, vomiting, pain, fall or injury, she is alert and oriented, seemingly answering questions appropriately ocular provide limited history. Per report, patient brought by EMS with concern for changes in mental status. REVIEW OF SYSTEMS: Pertinent positives and negatives as per HPI. HISTORIES: PAST MEDICAL HISTORY: as per HPI SOCIAL HISTORY: Per EMR former tobacco use, no alcohol or drug use MEDICATIONS: Nursing notes and EMR reviewed ALLERGIES: Nursing notes and EMR reviewed PHYSICAL EXAM: Vital signs: reviewed General: no apparent distress or discomfort, chronically ill appearing, nontoxic appearing Eyes: no conjunctival injection, eyes tracking HEENT: airway patent, mucous membranes dry Cardiovascular: regular rhythm, normal rate Respiratory: non-labored breathing, breath sounds clear, no wheezing crackles or rhonchi, no tachypnea Gastrointestinal: soft, non-distended, non-tender to palpation throughout Extremities: no obvious deformity, non edematous, no wounds bilateral feet Integumentary: warm, dry, no sacral wound Neurologic: Alert, oriented to month and age, seemingly answering questions appropriately, tracks with eyes, follows commands, motor weakness in all extremities-patient reports baseline MEDICAL DECISION MAKING: Medications - No data to display Diana Calabrese is a 47 y.o. female who presents as above, report of altered mental status, patient endorses subjective fever, dehydration, clinically appears dehydrated, she is afebrile, borderline hypotensive with otherwise reassuring vitals, presentation concerning for an occult infectious or metabolic process, lesser suspicion for an intracranial process, will obtain workup to evaluate including CT head, EKG, chest x-ray, labs evaluation, urinalysis, will treat with IV fluids. Labs obtained, interpreted by me, notable for glucose within acceptable range, no renal dysfunction, leukocytosis urinalysis nitrite positive loaded with bacteria-we will obtain urine culture treat with ceftriaxone, patient developed hypotensive blood pressure-will obtain blood cultures and lactate and treat with additional IV fluid bolus (total greater than 30 cc/kg) EKG obtained, per my interpretation, notable for sinus rhythm. Troponin WNL CXR obtained, interpreted per radiologist no acute findings CT head per radiologist interpretation, no significant interval change since May 2022, fairly extensive bilateral frontal parietal encephalomalacia Patient's blood pressure remained hypotensive, however MAP greater than 65, discussed with admitting Dr. Morse, she is comfortable deferring ICU consult, and accepts for telemetry admission for further evaluation and management including antibiotics, patient appropriate for admission at this time. Note: Due to hypotension, ICU consulted, VALENCIA Fernando evaluated the patient, MAP currently greater than 65, agrees with telemetry admission. DIAGNOSIS: Urinary tract infection, hypotension DISPOSITION: Admission Comment: Please note this report has been produced using speech recognition software and may contain errors related to that system including errors in grammar, punctuation, and spelling, as well as words and phrases that may be inappropriate. If there are any questions or concerns please feel free to contact the dictating provider for clarification. Dakotah Walters MD Acute Care [facility] Dakotah Walters MD 07/07/232049 Dakotah Walters MD 07/07/232131 [facility] 05-09-2023 Note General Surgery History and Physical Zi Wright MD, MPH Patient ID: Diana Calabrese [id number] 47 y.o. 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 Malin HPI: Diana Calabrese is a 47 y.o. female who presents with abnormal US of L breast Patient presents today for evaluation of L breast lesion found on exam and screening US. Patient comes from [facility] and is joined by her transporter. Patient is unfortunately a very poor historian with difficulty speaking as a result of her quadriplegia, dementia, multiple underlying comorbidities. She is able to provide some detail but ultimately it is little. Patient states that she has experienced bilateral breast pain. She states that she had history of breast cancer in her R breast, no treatment was pursued and patient unable to provide further details and we have no records of this. Her transport nurse was also unsure of any of this and this was not documented anywhere is her chart both paper from [place] or from EMR. Patient states that she has family history of breast cancer but unable to name which family members. She notes that she is having normal bowel and bladder function. An outside US of L breast demonstrates superficial nodule may be associated with skin rather than a breast mass, overall appearance is benign, correlate with L breast mammogram; however, there is no mammogram and she cannot tell us if there is a mammogram on file in the past. Exam in the office is limited due to contractures. PMH notable for quadriplegia, dementia, bipolar I disorder, dysarthria. PSH notable for tracheostomy and PEG tube placement, cholecystectomy. Patient is not on blood thinning medication. US L Breast, Focused 01/06/2023: Past Medical History: Diagnosis Date Abnormal uterine bleeding 07/19/2017 Alzheimer's dementia (HCC) Anemia Anxiety Bipolar 1 disorder (HCC) Cholecystitis with cholelithiasis SCHEDULED FOR SURGERY TODAT (11/03/2016) Constipated Dementia (HCC) Dysarthria Dysphagia Elevated liver enzymes Epilepsy (HCC) H/O urinary tract infection High blood cholesterol Hypertension Insomnia Joint pain Major depression Migraine Mononeuropathy Neuromuscular dysfunction of bladder Other migraine, not intractable, with status migrainosus Personal history of traumatic brain injury Pseudobulbar affect PTSD (post-traumatic stress disorder) Quadriplegia (HCC) Quadriplegia, unspecified (CMS/HCC) (HCC) Urine retention Vitamin D deficiency Past Surgical History: Procedure Laterality Date CHOLECYSTECTOMY 11/03/2016 TRACHEOSTOMY Medications Prior to Visit: Prior to Admission medications Medication Sig Start Date End Date Taking? Authorizing Provider acetaminophen (Tylenol) 325 MG tablet Take 650 mg by mouth every 6 hours as needed. Yes Historical Provider, baclofen (Lioresal) 10 MG tablet 05/02/23 Yes Historical Provider, bisacodyl (Dulcolax) 10 MG suppository Insert 10 mg into the rectum. Yes Historical Provider, bisacodyl (Dulcolax) 5 MG EC tablet Take 5 mg by mouth daily as needed. Yes Historical Provider, clonazePAM (KlonoPIN) 1 MG tablet 04/07/23 Yes Historical Provider, gabapentin (Neurontin) 400 MG capsule 04/08/23 Yes Historical Provider, lactulose (Chronulac) 10 GM/15ML solution 04/10/23 Yes Historical Provider, magnesium hydroxide (Milk of Magnesia) 400 MG/5ML suspension Take 30 mL by mouth. Yes Historical Provider, omega-3 (Fish Oil) 1000 MG capsule Take 1,000 mg by mouth daily. Yes Historical Provider, omeprazole (PriLOSEC) [address] capsule Take 20 mg by mouth in the morning. Yes Historical Provider, OXcarbazepine (Trileptal) 300 MG tablet 04/11/23 Yes Historical Provider, polyethylene glycol, PEG, 3350 (Glycolax) 17 GM/SCOOP powder Take 17 g by mouth daily. Yes Historical Provider, sertraline (Zoloft) 25 MG tablet Take by mouth daily. Yes Historical Provider, sertraline (Zoloft) 50 MG tablet 05/08/23 Yes Historical Provider, tamsulosin (Flomax) 0.4 MG 24 hr capsule 04/21/23 Yes Historical Provider, topiramate (Topamax) 200 MG tablet 04/29/23 Yes Historical Provider, Allergies: Alcohol, Avocado, Kiwi extract, Morphine, Pineapple, and Latex Social History Socioeconomic History Marital status: Single Tobacco Use Smoking status: Former Smokeless tobacco: Never Substance and Sexual Activity Alcohol use: No Drug use: No No family history on file. Review of Systems: Review of Systems Constitutional: Positive for fatigue. Negative for appetite change, chills, fever and unexpected weight change. HENT: Positive for voice change (difficulty with talking. States seizures make speech worse and nurse at bedside states she has had a lot lately). Negative for hearing loss, nosebleeds, sneezing, sore throat and trouble (more content not included)... [facility] 05-09-2023 History of Presen t illness Narrative Images from the original note were not included. General Surgery History and Physical Zi Wright MD, MPH Patient ID: Diana Calabrese [id number] 47 y.o. 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 Malin HPI: Diana Calabrese is a 47 y.o. female who presents with abnormal US of L breast Patient presents today for evaluation of L breast lesion found on exam and screening US. Patient comes from [facility] and is joined by her transporter. Patient is unfortunately a very poor historian with difficulty speaking as a result of her quadriplegia, dementia, multiple underlying comorbidities. She is able to provide some detail but ultimately it is little. Patient states that she has experienced bilateral breast pain. She states that she had history of breast cancer in her R breast, no treatment was pursued and patient unable to provide further details and we have no records of this. Her transport nurse was also unsure of any of this and this was not documented anywhere is her chart both paper from [facility] or from EMR. Patient states that she has family history of breast cancer but unable to name which family members. She notes that she is having normal bowel and bladder function. An outside US of L breast demonstrates superficial nodule may be associated with skin rather than a breast mass, overall appearance is benign, correlate with L breast mammogram; however, there is no mammogram and she cannot tell us if there is a mammogram on file in the past. Exam in the office is limited due to contractures. PMH notable for quadriplegia, dementia, bipolar I disorder, dysarthria. PSH notable for tracheostomy and PEG tube placement, cholecystectomy. Patient is not on blood thinning medication. US L Breast, Focused 01/06/2023: Past Medical History: Diagnosis Date Abnormal uterine bleeding 07/19/2017 Alzheimer's dementia (HCC) Anemia Anxiety Bipolar 1 disorder (HCC) Cholecystitis with cholelithiasis SCHEDULED FOR SURGERY TODAT (11/03/2016) Constipated Dementia (HCC) Dysarthria Dysphagia Elevated liver enzymes Epilepsy (HCC) H/O urinary tract infection High blood cholesterol Hypertension Insomnia Joint pain Major depression Migraine Mononeuropathy Neuromuscular dysfunction of bladder Other migraine, not intractable, with status migrainosus Personal history of traumatic brain injury Pseudobulbar affect PTSD (post-traumatic stress disorder) Quadriplegia (HCC) Quadriplegia, unspecified (CMS/HCC) (HCC) Urine retention Vitamin D deficiency Past Surgical History: Procedure Laterality Date CHOLECYSTECTOMY 11/03/2016 TRACHEOSTOMY Medications Prior to Visit: Prior to Admission medications Medication Sig Start Date End Date Taking? Authorizing Provider acetaminophen (Tylenol) 325 MG tablet Take 650 mg by mouth every 6 hours as needed. Yes Historical Provider, baclofen (Lioresal) 10 MG tablet 05/02/23 Yes Historical Provider, bisacodyl (Dulcolax) 10 MG suppository Insert 10 mg into the rectum. Yes Historical Provider, bisacodyl (Dulcolax) 5 MG EC tablet Take 5 mg by mouth daily as needed. Yes Historical Provider, clonazePAM (KlonoPIN) 1 MG tablet 04/07/23 Yes Historical Provider, gabapentin (Neurontin) 400 MG capsule 04/08/23 Yes Historical Provider, lactulose (Chronulac) 10 GM/15ML solution 04/10/23 Yes Historical Provider, magnesium hydroxide (Milk of Magnesia) 400 MG/5ML suspension Take 30 mL by mouth. Yes Historical Provider, omega-3 (Fish Oil) 1000 MG capsule Take 1,000 mg by mouth daily. Yes Historical Provider, omeprazole (PriLOSEC) [address] capsule Take 20 mg by mouth in the morning. Yes Historical Provider, OXcarbazepine (Trileptal) 300 MG tablet 04/11/23 Yes Historical Provider, polyethylene glycol, PEG, 3350 (Glycolax) 17 GM/SCOOP powder Take 17 g by mouth daily. Yes Historical Provider, sertraline (Zoloft) 25 MG tablet Take by mouth daily. Yes Historical Provider, sertraline (Zoloft) 50 MG tablet 05/08/23 Yes Historical Provider, tamsulosin (Flomax) 0.4 MG 24 hr capsule 04/21/23 Yes Historical Provider, topiramate (Topamax) 200 MG tablet 04/29/23 Yes Historical Provider, Allergies: Alcohol, Avocado, Kiwi extract, Morphine, Pineapple, and Latex Social History Socioeconomic History Marital status: Single Tobacco Use Smoking status: Former Smokeless tobacco: Never Substance and Sexual Activity Alcohol use: No Drug use: No No family history on file. Review of Systems: Review of Systems Constitutional: Positive for fatigue. Negative for appetite change, chills, fever and unexpected weight change. HENT: Positive for voice change (difficulty with talking. States seizures make speech worse and nurse at bedside states she has had a lot lately). Negative for hearing loss, nosebleeds, sneezing, sore throat and trouble swallowing. Eyes: Negative for redness. Respiratory: Negative for cough, shortness of breath and wheezing. No evidence of requirement for supplementary oxygen Cardiovascular: Positive for chest pain (Bilateral breast pain, no cardiac or sternal pain) and leg swelling. Negative for palpitations. Gastrointestinal: Negative for abdominal distention, abdominal pain, constipation, diarrhea, nausea, rectal pain and vomiting. Endocrine: Negative for polydipsia and polyuria. Genitourinary: Negative for difficulty urinating (denies requiring catheterizations), dysuria, frequency, hematuria and urgency. Musculoskeletal: Positive for gait problem (quadriplegia) and neck stiffness. Skin: Negative for color change, pallor, rash and wound. Allergic/Immunologic: Negative for immunocompromised state. Neurological: Positive for seizures, speech difficulty and weakness. Negative for syncope. Hematological: Negative for adenopathy. Does not bruise/bleed easily. Psychiatric/Behavioral: Negative for agitation and confusion. Physical Exam: Ht 6' 2 (1.88 m) BMI 28.16 kg/m Physical Exam Exam conducted with a director drug safety present. Constitutional: General: She is not in acute distress. Appearance: She is ill-appearing (chronically). She is not toxic-appearing or diaphoretic. Comments: Chronically ill, appears much older than stated age given debility. HENT: Head: Normocephalic. Right Ear: External ear normal. Left Ear: External ear normal. Nose: Nose normal. Mouth/Throat: Mouth: Mucous membranes are dry. Eyes: Extraocular Movements: Extraocular movements intact. Pupils: Pupils are equal, round, and reactive to light. Neck: Comments: Well healed prior tracheostomy. Cardiovascular: Rate and Rhythm: Normal rate and regular rhythm. Pulses: Normal pulses. Pulmonary: Effort: Pulmonary effort is normal. No respiratory distress. Breath sounds: No rales. Chest: Breasts: Right: No swelling, bleeding, inverted nipple, mass, nipple discharge, skin change or tenderness. Left: No swelling, bleeding, inverted nipple, mass, nipple discharge, skin change or tenderness. Abdominal: General: There is no distension. Palpations: Abdomen is soft. There is no mass. Tenderness: There is no abdominal tenderness. Hernia: No hernia is present. Comments: Well healed prior periumbilical scar Musculoskeletal: General: Deformity (Contractures bilateral upper extremities and hands, lower extremities with supports in place) present. No tenderness. Cervical back: Rigidity present. No tenderness. Right lower leg: Edema present. Left lower leg: Edema present. Lymphadenopathy: Cervical: No cervical adenopathy. Upper Body: Right upper body: No supraclavicular or axillary adenopathy. Left upper body: No supraclavicular or axillary adenopathy. Skin: General: Skin is warm and dry. Coloration: Skin is not jaundiced or pale. Findings: Erythema (inframammary folds, power in place) present. No bruising. Neurological: Mental Status: She is alert. Mental status is at baseline. Comments: Challenging to assess given baseline debility. Psychiatric: Behavior: Behavior normal. Comments: Challenging to assess given baseline debility. Orders Placed This Encounter Procedures Bilateral diagnostic mammogram Left breast US limited Impression/Treatment Plan: Diana Calabrese is a 47 y.o. female with L breast lesion, concern for underlying breast mass, possible right sided breast cancer in the remote past without recent imaging and no reported treatment, minimal records overall to compare, only information available is an outside ultrasound showing left ?dermal breast lesion. -Unfortunately, the exam and discussion was very limited given lacking information, records, and inability of patient to appropriately contribute given debility and comorbids. -Given examination and symptoms, will proceed with bilateral diagnostic mammogram and US L breast to obtain in our own system. -Patient to return to office after imaging to discuss further treatment planning Patient counseled on risks, benefits, and alternatives of treatment plan at length while in the office today. Patient states an understandingand willingness to proceed with plan. I spent 30 minutes total on the day of the visit obtaining history, reviewing imaging and laboratory results, performing a physical exam and providing patient education and counseling. Department of Surgery [facility] documented in this encounter [facility] [employer] documented in this encounter [facility] Work Phone: Evaluation note* Diagnosis Mass of lower inner quadrant of left breast- Primary [facility] Diagnosis Mass of lower inner quadrant of left breast [facility] Diagnosis Urinary tract infection- Primary Urinary tract infection, site not specified Urinary tract infection Urinary tract infection, site not specified documented in this encounter [facility] Summary Purpose Family History No Family History Records FoundNo Family History Records FoundNo Family History Records FoundNo Family History Records FoundNo Family History Records FoundNo Family History Records Found Advance Directives No Advanced Directives Records FoundDocuments on File Type Date Recorded 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 ACP-Advance Directive ACP-Power of [employer]drop[employer] Grower ACP-Power of [employer]er 10/02/2020 3:31 PM PA IN [facility]- POA Latest Code Status on File Code Status Date Activated Date Inactivated Comments Full Code 11/03/2016 4:21 PM 11/04/2016 7:24 PM Full Code 11/03/2016 10:26 AM 11/03/2016 4:10 PM Documents on File Type Date Recorded 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 Advance Directives and Livin g Will 06/08/2023 2:26 PM Latest Code Status on File Code Status Date Activated Date Inactivated Comments Full Code 07/07/2023 10:13 PM 07/11/2023 9:26 PM Additional Source Comments INFORMATION SOURCE (unrecogn ized section and content) DATE CREATED AUTHOR AUTHOR'S ORGANIZ ATION 01/23/2018 [employer] DATE CREATED AUTHOR AUTHOR'S ORGANIZ ATION 06/20/2018 [employer] [place] DATE CREATED AUTHOR AUTHOR'S ORGANIZ ATION 08/03/2021 [facility] DATE CREATED AUTHOR AUTHOR'S ORGANIZ ATION 11/21/2022 [employer] DATE CREATED AUTHOR AUTHOR'S ORGANIZ ATION 07/15/2023 [employer] [facility] Reason for Visit (unrecogniz ed section and content) Reason Comments 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 Malin Reason Comments Altered Mental Status Per SNF, A/0 x3 pe r EMS Specialty Diagnoses / Procedures Referred By Contac t Referred To Contact Diagnoses Urinary tract infection Procedures . Yoko Morse M, DO [address] [place] [address] [facility] [address] [place] [address] Referral ID Status Reason Start Date Expiration Date Visits Re quested Visits Authorized [id number] 1 Scheduled Active and Recently Administ ered Medications (unrecognized section and content) Scheduled Medication Order 07/09/2023 07/10/2023 07/11/2023 baclofen (Lioresal) tablet 10 mg 10 mg, Oral, 3 times daily, First dose on Mon07/07/23 at 2215 1004 (Given - Provider: Dena Dejesus RN)1530 (Given - Provider: Dena Dejesus RN)2044 (Given - Provider: Azucena Godfrey RN) 1235 (Given - Provider: Tatianna Da Silva RN)1400 (Not Given - Provider: Tatianna Da Silva RN - Reason: Other - Comment: too close to last dose)2204 (Given - Provider: Azucena Godfrey RN) 1013 (Given - Provider: Tatianna Da Silva RN)1534 (Given - Provider: Tatianna Da Silva, RN)2100 (Canceled Entry - Provider: Automatic Discharge Provider - Comment: Automatically canceled at discontinue of medication order) clonazePAM (KlonoPIN) tablet 1 mg 1 mg, Oral, 2 times daily, First dose on Mon07/07/23 at 2215 1004 (Given - Provider: Dena Dejesus RN)2043 (Given - Provider: Azucena Godfrey RN) 1235 (Given - Provider: Tatianna Da Silva RN)2204 (Given - Provider: Azucena Godfrey RN) 1014 (Given - Provider: Tatianna Da Silva RN)2100 (Canceled Entry - Provider: Automatic Discharge Provider - Comment: Automatically canceled at discontinue of medication order) enoxaparin (Lovenox) syringe 40 mg 40 mg, SubCUTAneous, Every 24 hours scheduled (Daily), First dose on Mon07/08/23 at 0900, Indication of Use: Prophylaxis-DVT/PE, Indications: Prophylaxis of Venous Thromboembolism 1011 (Given - Provider: Dena Dejesus RN) 1237 (Given - Provider: Tatianna Da Silva RN) 1014 (Given - Provider: Tatianna Da Silva RN) gabapentin (Neurontin) capsule 400 mg 400 mg, Oral, Nightly, First dose on Mon07/07/23 at 2215 2044 (Given - Provider: Azucena Gdofrey RN) 2204 (Given - Provider: Azucena Godfrey RN) 2100 (Canceled Entry - Provider: Automatic Discharge Provider - Comment: Automatically canceled at discontinue of medication order) influenza vac subunit quadrivalent (Flucelvax) injection 0.5 mL 0.5 mL, IntraMUSCular, Prior to discharge, Starting on Mon07/08/23 at 0900, For 1 dose OXcarbazepine (Trileptal) tablet 300 mg 300 mg, Oral, 2 times daily, First dose on Mon07/07/23 at 2215 1004 (Given - Provider: Dena Dejesus RN)2043 (Given - Provider: Azucena Godfrey, MEGHNA) 1235 (Given - Provider: Tatianna Da Silva RN)2204 (Given - Provider: Azucena Godfrey RN) 1014 (Given - Provider: Tatianna Da Silva RN)2100 (Canceled Entry - Provider: Automatic Discharge Provider - Comment: Automatically canceled at discontinue of medication order) pantoprazole (ProtoNix) EC tablet 40 mg 40 mg, Oral, Daily before breakfast, First dose on 07/08/23 at 0700, Substituted for omeprazole (Prilosec). Do not crush, chew, or split. 0640 (Given - Provider: Summer Mora RN) 0559 (Given - Provider: Azucena Godfrey RN) 0524 (Given - Provider: Azucena Godfrey RN) polyethylene glycol (PEG) 3350 (Miralax) packet 17 g 17 g, Oral, Daily, First dose on 07/08/23 at 0900 1005 (Given - Provider: Dena Dejesus RN) 1200 (Not Given - Provider: Tatianna Da Silva RN - Reason: Patient/family refused) 0900 (Not Given - Provider: Tatianna Da Silva RN - Reason: Patient/family refused) potassium chloride CR (Klor-Con M20) ER tablet 20 mEq (COMPLETED) 20 mEq, Oral, Once, On 07/09/23 at 0930, For 1 dose, Best given with food and plenty of water to minimize gastric irritation. Do not crush or chew. 1004 (Given - Provider: Dena Dejesus RN) sertraline (Zoloft) tablet 25 mg 25 mg, Oral, Daily, First dose on 07/08/23 at 0900 1005 (Given - Provider: Dena Dejesus RN) 1236 (Given - Provider: Tatianna Da Silva RN) 1013 (Given - Provider: Tatianna Da Silva RN) sertraline (Zoloft) tablet 50 mg 50 mg, Oral, Daily, First dose on 07/08/23 at 0900 1004 (Given - Provider: Dena Dejesus RN) 1237 (Given - Provider: Tatianna Da Silva RN) 1015 (Given - Provider: Tatianna Da Silva RN) tamsulosin (Flomax) 24 hr capsule 0.4 mg 0.4 mg, Oral, Daily, First dose on Mon07/08/23 at 0900, Do not crush, chew, or split. 1004 (Given - Provider: Dena Dejesus RN) 1236 (Given - Provider: Tatianna Da Silva RN) 1014 (Given - Provider: Tatianna Da Silva RN) topiramate (Topamax) tablet 200 mg 200 mg, Oral, Daily, First dose on Mon07/08/23 at 0900, Do not crush, chew, or split. 1004 (Given - Provider: Dena Dejesus RN) 1234 (Given - Provider: Tatianna Da Silva RN) 1013 (Given - Provider: Tatianna Da Silva RN) vancomycin IVPB 1250 mg in 250 mL NS (premix) (CANCELED) 1,250 mg, IntraVENous, Administer over 90 Minutes, Every 12 hours, First dose on Mon07/09/23 at 0930, premix bag, Suspected Indication (Select all that apply): Sepsis of Unknown Etiology 1016 (New Bag - Provider: Dena Dejesus RN)1146 (Stopped - Provider: Dena Dejesus RN)2034 (New Bag - Provider: Azucena Godfrey, MEGHNA)2204 (Stopped - Provider: Azucena Godfrey, MEGHNA) Continuous Medication Order 07/09/2023 07/10/2023 07/11/2023 sodium chloride 0.9 % infusion 100 mL/hr, IntraVENous, Continuous, Starting on Mon07/07/23 at 2215 1002 (New Bag - Provider: Dena Dejesus RN) 1900 (Stopped - Provider: Azucena Godfrey, MEGHNA) PRN Medication Order 07/09/2023 07/10/2023 07/11/2023 acetaminophen (Tylenol) suppository 650 mg(Linked Group 1) 650 mg, Rectal, Every 6 hours PRN, mild pain (1-3), fever, For temp greater than 100.4 F (38 C), Starting on Mon07/07/23 at 2213, Administer if oral route cannot be used. Maximum dose of acetaminophen is 4000 mg from all sources in 24 hours. 1014 (See Alternative - Provider: Tatianna Da Silva RN) acetaminophen (Tylenol) tablet 650 mg(Linked Group 1) 650 mg, Oral, Every 6 hours PRN, mild pain (1-3), fever, For temp greater than 100.4 F (38 C), Starting on 07/07/23 at 2213, Maximum dose of acetaminophen is 4000 mg from all sources in 24 hours. 1014 (Given - Provider: Taitanna Da Silva, MEGHNA) diphenhydrAMINE (BENADryl) injection 25 mg(Linked Group 2) 25 mg, IntraVENous, Every 6 hours PRN, itching, Starting on 07/09/23 at 2241 0033 (Given - Provider: Azucena Godfrey, MEGHNA) diphenhydrAMINE (BENADryl) tablet/capsule 25 mg(Linked Group 2) 25 mg, Oral, Every 6 hours PRN, itching, Starting on 07/09/23 at 2241 0033 (See Alternative - Provider: Azucena Godfrey, MEGHNA) ondansetron (Zofran) injection 4 mg(Linked Group 3) 4 mg, IntraVENous, Every 6 hours PRN, nausea, vomiting, Starting on 07/07/23 at 2213, 1st Line. Give IV if patient is unable to take orally. If inadequate response within 60 minutes, proceed to next-line agent or contact provider if no further options ordered. ondansetron ODT (Zofran-ODT) disintegrating tablet 4 mg(Linked Group 3) 4 mg, Oral, Every 8 hours PRN, nausea, vomiting, Starting on 07/07/23 at 2213, 1st Line. If inadequate response within 60 minutes, proceed to next-line agent or contact provider if no further options ordered. Patient should allow tablet to dissolve on tongue. Do not remove from blister pack until just before administering. oxyCODONE (Roxicodone) immediate release tablet 2.5 mg(Linked Group 4) 2.5 mg, Oral, Every 4 hours PRN, moderate pain (4-6), Starting on 07/08/23 at 2316 0640 (See Alternative - Provider: Summer Mora RN)1843 (See Alternative - Provider: Dena Dejesus RN) 0053 (See Alternative - Provider: Azucena Godfrey, MEGHNA)1234 (See Alternative - Provider: Tatianna Da Silva RN)1709 (See Alternative - Provider: Tatianna Da Silva, MEGHNA)2252 (See Alternative - Provider: Azucena Godfrey, MEGHNA) 1135 (See Alternative - Provider: Tatianna Da Silva, MEGHNA)1534 (See Alternative - Provider: Tatianna Da Silva RN) oxyCODONE (Roxicodone) immediate release tablet 5 mg(Linked Group 4) 5 mg, Oral, Every 4 hours PRN, severe pain (7-10), Starting on Mon07/08/23 at 2316 0640 (Given - Provider: Summer Mora, MEGHNA)1843 (Given - Provider: Dena Dejesus RN) 0053 (Given - Provider: Azucena Godfrey, MEGHNA)1234 (Given - Provider: Tatianna Da Silva, MEGHNA)1709 (Given - Provider: Tatianna Da Silva RN)2252 (Given - Provider: Azucena Godfrey RN) 1135 (Given - Provider: Tatianna Da Silva, MEGHNA)1534 (Given - Provider: Tatianna Da Silva, MEGHNA) polyethylene glycol (PEG) 3350 (Miralax) packet 17 g 17 g, Oral, Daily PRN, constipation, Starting on Mon07/07/23 at 2213, 1st line for treatment of constipation - give scheduled if no bowel movement in past 24 hours. Linked Groups Order Group 1: acetaminophen (Tylenol) tablet 650 mgJump to med 650 mg, Oral, Every 6 hours PRN, mild pain (1-3), fever, For temp greater than 100.4 F (38 C), Starting on Mon07/07/23 at 2213, Maximum dose of acetaminophen is 4000 mg from all sources in 24 hours. Or acetaminophen (Tylenol) suppository 650 mgJump to med 650 mg, Rectal, Every 6 hours PRN, mild pain (1-3), fever, For temp greater than 100.4 F (38 C), Starting on Mon07/07/23 at 2213, Administer if oral route cannot be used. Maximum dose of acetaminophen is 4000 mg from all sources in 24 hours. Group 2: diphenhydrAMINE (BENADryl) injection 25 mgJump to med 25 mg, IntraVENous, Every 6 hours PRN, itching, Starting on Mon07/09/23 at 2241 Or diphenhydrAMINE (BENADryl) tablet/capsule 25 mgJump to med 25 mg, Oral, Every 6 hours PRN, itching, Starting on 07/09/23 at 2241 Group 3: ondansetron ODT (Zofran-ODT) disintegrating tablet 4 mgJump to med 4 mg, Oral, Every 8 hours PRN, nausea, vomiting, Starting on 07/07/23 at 2213, 1st Line. If inadequate response within 60 minutes, proceed to next-line agent or contact provider if no further options ordered. Patient should allow tablet to dissolve on tongue. Do not remove from blister pack until just before administering. Or ondansetron (Zofran) injection 4 mgJump to med 4 mg, IntraVENous, Every 6 hours PRN, nausea, vomiting, Starting on Mon07/07/23 at 2213, 1st Line. Give IV if patient is unable to take orally. If inadequate response within 60 minutes, proceed to next-line agent or contact provider if no further options ordered. Group 4: oxyCODONE (Roxicodone) immediate release tablet 2.5 mgJump to med 2.5 mg, Oral, Every 4 hours PRN, moderate pain (4-6), Starting on 07/08/23 at 2316 Or oxyCODONE (Roxicodone) immediate release tablet 5 mgJump to med 5 mg, Oral, Every 4 hours PRN, severe pain (7-10), Starting on 07/08/23 at 2316 Care Teams (unrecognized sec tion and content) [employer] Relationship Specialty Start Date End Date Venkat Malin [address] [facility] [address] [place] [phone] PCP - General Internal Medicine 06/03/22 [employer] Curric[employer] Developer Relationship Specialty Start Date End Date Venkat Malin [address] [facility] [address] [place] [phone] PCP - General Internal Medicine 06/03/22 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 This clinical summary was aggregated from multiple sources. Caution should be exercised in using it in the provision of clinical care. This summary normalizes information from multiple sources, and as a consequence, information in this document may materially change the coding, format and clinical context of patient data. In addition, data may be omitted in some cases. CLINICAL DECISIONS SHOULD BE BASED ON THE PRIMARY CLINICAL RECORDS. [facility] [employer] [facility]. provides no warranty or guarantee of the accuracy or completeness of information in this document.
[2023-07-19 08:10] LABS: Hematocrit 46.5 % (37-47); Hemoglobin 14.5 g/dL (12.0-15.0); Mean Corp Hgb Conc 31.2 g/dL (32-36); Mean Corpuscular Hgb 28.2 pg (27.0-32.0); Mean Corpuscular Volume 90.3 fL (81-99); Mean Platelet Vol. 11.1 fl (6.2-12.0); Platelet Count 341 K/mm3 (150-450); RBC Distribution Width CV 14.9 % (11.6-14.6); Red Blood Count 5.15 M/mm3 (4.2-5.4); White Blood Count 5.4 K/mm3 (4.4-11.0)
[2023-07-19 08:24] LABS: ALB/GLOB Ratio 0.7 RATIO (0.9-2.4); AST(SGOT) 15 U/L (15-37); Alanine Aminotransfer ALT/SGPT 33 U/L (13-56); Albumin, Serum 3.2 g/dL (3.2-5.0); Alkaline Phosphatase 170 U/L (45-117); Anion Gap 3 (5-15); BUN 17 mg/dL (7-18); BUN/Creat Ratio 19.5 RATIO (10-20); Calcium,Total 9.1 mg/dL (8.5-10.1); Chloride 110 mmol/L (98-107); Creatinine, Serum 0.87 mg/dL (0.55-1.02); EST Glomerular Filtration Rate 74 mL/min (>60); Est Glom Filt Rate - Afr Amer 89 mL/min (>60); Globulin 4.8 g/dL (2.2-4.2); Glucose 85 mg/dL (74-106); Potassium 3.7 mmol/L (3.5-5.1); Sodium Level 140 mmol/L (136-145)
== END | disposition home or self-care (01) ==
LOC: OLS.SANC 04:00
PROVIDERS: Referring Provider Internal Medicine; Visit Provider Internal Medicine
DX: D64.9 Anemia, unspecified (principal); I10 Essential (primary) hypertension
CPT/HCPCS: 36415; 80053; 85027

== ENCOUNTER → 2023-08-31 | Outpatient (REF) | payer MEDICAID, SELFPAY ==
[2023-08-31 10:28] LABS: Absolute Lymphocyte Count 2.12 X10^3/uL (0.83-4.51); Absolute Neutrophil Count 2.6 X10^3/uL (2.0-7.7); Basophil# 0.05 X10^3/uL; Basophil% 0.9 % (0-1); Eosinophil# 0.14 X10^3/uL; Eosinophils% 2.6 % (0-5); Hematocrit 44.1 % (37-47); Hemoglobin 13.3 g/dL (12.0-15.0); Lymphocyte # 2.12 X10^3/ul (0.83-4.51); Mean Corp Hgb Conc 30.2 g/dL (32-36); Mean Corpuscular Hgb 27.4 pg (27.0-32.0); Mean Corpuscular Volume 90.7 fL (81-99); Mean Platelet Vol. 11.7 fl (6.2-12.0); Monocyte# 0.47 X10^3/uL; Monocyte% 8.7 % (0-10); NRBC Flagged by Analyzer 0 % (0-5); Neutrophil # 2.63 X10^3/uL (2.7-7.7); Neutrophil % 48.4 % (47-70); Platelet Count 297 K/mm3 (150-450); RBC Distribution Width CV 14.4 % (11.6-14.6); RBC Distribution Width SD 47.8 fl (35.1-43.9); Red Blood Count 4.86 M/mm3 (4.2-5.4); White Blood Count 5.4 K/mm3 (4.4-11.0)
[2023-08-31 10:51] LABS: Carbamazepine (Tegretol) 0.7 ug/mL (4.0-12.0)
[2023-08-31 11:03] LABS: ALB/GLOB Ratio 0.6 RATIO (0.9-2.4); AST(SGOT) 10 U/L (15-37); Alanine Aminotransfer ALT/SGPT 14 U/L (13-56); Albumin, Serum 2.7 g/dL (3.2-5.0); Alkaline Phosphatase 103 U/L (45-117); Anion Gap 2 (5-15); BUN 15 mg/dL (7-18); BUN/Creat Ratio 21.6 RATIO (10-20); Calcium,Total 8.7 mg/dL (8.5-10.1); Chloride 108 mmol/L (98-107); Creatinine, Serum 0.69 mg/dL (0.55-1.02); EST Glomerular Filtration Rate 96 mL/min (>60); Est Glom Filt Rate - Afr Amer 116 mL/min (>60); Globulin 4.6 g/dL (2.2-4.2); Glucose 84 mg/dL (74-106); Potassium 3.4 mmol/L (3.5-5.1); Protein, Total 7.3 g/dL (6.4-8.2); Sodium Level 135 mmol/L (136-145)
--- OUTSIDE RECORDS SUMMARY | 2023-08-31 11:45 | XMS RPT_ITS | CCD ---
Author Name Unknown Address [address] [place] [address] Organization [facility] Care Team Providers Care Superior Court Judge Name Role Phone JUNIOR QUINONES Unavailable Unavailable JONI, JUNIOR J Unavailable Unavailable Egeland, Junior Unavailable Unavailable Esterle, Yoko Unavailable Unavailable Esterle, Yoko Unavailable Unavailable Aamir, Maurice Unavailable Unavailable Esterle DOYoko M Primary Care Provider Venkat Malin Primary Care Provider [phone] ZI WRIGHT Referring Unavailable ZI WRIGHT Attending [...] reactions to drug (disorder) 7 Rash, Swelling [facility] Repository (7 sources) morphine; Translations: [MORPHINE] Drug Allergy 7 Swelling [facility] Repository (7 sources) pineapple flavor; Translations: [PINEAPPLE] Drug Allergy 7 Swelling [facility] Repository (1 source) avocado allergenic extract Drug Allergy 1 [facility] (6 sources) Alcohol Propensity to adverse reactions to drug 7 Unknown [facility] (5 sources) avocado oil Drug Allergy 1 [facility] (5 sources) Kiwi fruit Allergy to substance 3 [facility] NEGATED: Highlighted row has been ruled out! (1 source) Other Propensity to adverse reactions 1 [employer] Work Phone: Medications Current Medications Medication Drug [...] 97.11 [degF] Dakotah Walters MD Work Phone: [facility] [employer] 07-11-2023 16:05-0500 Diastolic blood pressure 58 mm[Hg] Dakotah Walters MD Work Phone: [facility] [employer] 07-11-2023 16:05-0500 Heart rate 67 /min Dakotah Walters MD Work Phone: [facility] [employer] 07-11-2023 16:05-0500 Respiratory rate 18 /min Dakotah Walters MD Work Phone: [facility] [employer] 07-11-2023 16:05-0500 SaO2% (BldA) [Mass fraction] 95 % Dakotah Walters MD Work Phone: [facility] [employer] 07-11-2023 16:05-0500 Systolic blood pressure 102 mm[Hg] Dakotah Walters MD Work Phone: [facility] [employer] 07-10-2023 13:27-0500 Body height 172.7 cm Dakotah Walters MD Work Phone: [facility] [employer] 07-10-2023 13:00-0500 Body mass index (BMI) [Ratio] 30.71 kg/m2 Dakotah Walters MD Work Phone: [facility] 07-10-2023 13:00-0500 Body weight 91.63 kg Dakotah Walters MD Work Phone: [facility] 05-09-2023 13:57-0400 Body height 188 cm Zi Wright MD Work Phone: [facility] 07-03-2021 19:25-0500 Diastolic blood pressure 59 mm[Hg] Juanjose Patton MD Work Phone: [facility] 07-03-2021 19:25-0500 Systolic blood pressure 91 mm[Hg] Juanjose Patton MD Work Phone: [facility] 07-03-2021 19:21-0500 Heart rate 75 /min Juanjose Patton MD Work Phone: [facility] 07-03-2021 19:21-0500 Respiratory rate 15 /min Juanjose Patton MD Work Phone: [facility] 07-03-2021 19:21-0500 SaO2% (BldA) [Mass fraction] 97 % Juanjose Patton MD Work Phone: [facility] 07-03-2021 15:22-0500 Body temperature 98.01 [degF] Juanjose Patton MD Work Phone: [facility] Encounters Encounter Date Encounter Type Care Provider Facility Start: 07-07-2023 End: 07-11-2023 Evaluation and management of inpatient [facility] Start: 07-07-2023 End: 07-11-2023 Evaluation and management of inpatient Dakotah Walters MD Work Phone: [facility] Cardiac Progressive Care Unit PCU 2E Procedures [...] or older (1 - 1-dose 60+ series) [facility] Start: 07-03-2031 DTaP/Tdap/Td vaccine (2 - Td or Tdap) DTaP/Tdap/Td vaccine (2 - Td or Tdap) [facility] Start: 07-03-2031 DTaP/Tdap/Td Vaccine s (2 - Td or Tdap) DTaP/Tdap/Td Vaccines (2 - Td or Tdap) [facility] Start: 2025 Zoster Vaccines (1 of 2) Zoster Vacc lin (1 of 2) [facility] Start: 05-09-2023 End: 07-09-2024 MG Breast - bilateral Diagnostic Bilateral diagnostic mammogram Imaging Routine Mass of lower inner quadrant of left breast Expected: 05/09/2023, Expires: 07/09/2024 [facility] Work Phone: Immunizations Immunization Date Immunization Notes Care Provider Fa cili 07-08-2023 influenza vac subuni t quadrivalent (Flucelvax) injection 0.5 mL Dakotah Walters MD Work Phone: [facility] 07-03-2021 tetanus toxoid, redu teodoro diphtheria toxoid, and acellular pertussis vaccine, adsorbed Juanjose Patton MD Work Phone: [facility] 05-04-2021 influenza virus vacc ine, unspecified formulation Zi Wright MD Work Phone: [facility] [employer] Payers Date Payer Category Payer Medicaid 2016 Medicaid [id number] Unknown [id number] Social History Date Type Detail Facility Start: 09-06-2016 Tobacco smoking status NHIS Ex-smoke r [employer] Work Phone: Start: 09-06-2016 Tobacco use and exposure Smoke less tobacco non-user [employer] Work Phone: Start: 07-03-2021 End: 07-09-2023 Alcohol intake Current non-drinker of alcohol (finding) [employer] Work Phone: Start: 1975 Sex Assigned At Not on file S [facility] Work Phone: Exposure to SARS-CoV -2 (event) Unable to assess [facility] History of tobacco use Current smoker [facility] Start: 06-03-2022 End: 07-08-2023 History of Social function [facility] [employer] Start: 06-03-2022 End: 07-08-2023 Alcohol Use Disorder Identification Test - Consumption [AUDIT-C] [facility] How often to you hav e a drink containing alcohol? Never [facility] Average Number of Drinks Not on file [facility] [employer] Has the [employer], [employer], or water [employer] threatened to shut off services in your home in past 12Mo No [facility] Are you now , , , , never or living with a partner? Never [facility] Do you feel stress - tense, restless, nervous, or anxious, or unable to sleep at night because your mind is troubled all the time - these days [OSQ] Not at all [facility] [employer] (I/We) worried wheth er (my/our) food would run out before (I/we) got money to buy more. Never true [facility] Clinical Notes 05-09-2023 to 07-11-2023 Tatianna Da Silva RN - 07/11/2023 5:33 PM Rashard Da Silva RN - 07/11/2023 5:[address] - 07/10/2023 1:37 PM Declan Pelayo MD - 07/10/2023 12:57 PM Eunice Instr - ERNESTO Note Date & Type Note Facility 07-11-2023 History of Presen t illness Narrative Report was called to [facility]. They were notified of the estimated lease picker time of 1800. This nurse called [facility] to give report but received no answer. [...] muscle mass loss Fluid Accumulation: Mild Extremities Salesperson Books Strength: Not Performed Nutrition Assessment: Pt was [...] On: Kcal/kg Weight Used for Energy Requirements: [place] Weight for Energy Calculation (kg): 64 kg Total Energy Requirements (kcals/day): 9888-8336 kcals (25-30 kcals/kg) Weight Used for Protein Requirements: [place] Weight in Kg Used for Protein Requirements: 64 kg Estimated Total Protein (g/day): 51-64 (0.8-1g/kg) Estimated Daily Total Fluid (ml/day): 6499-9002 ml/day or per MD Nutrition Related Findings: [...] (219 lb) (estimated) Usual Body Weight: (BON) [place] Body Weight (lbs) (Calculated): 140 lbs [place] Body Weight (Kg) (Calculated): 64 kg % [place] Body Weight (Calculated): 144.3 % BMI (kg/m2) [...] soon to determine Addison Marroquin RD Contact: *[phone] or via Secure Chat Images from the [...] She was admitted on 07/07/23 from a group home facility via EMS with concern for altered [...] #1 - Assess for effectiveness of treatment [[id number]] Blood, Venous Preliminary result Component Value Blood Culture Blood culture incubation started P 07/09/2023 1237 07/09/2023 1701 Blood culture Site #2 - Assess for effectiveness of treatment [[id number]] Blood, Venous Preliminary result Component Value Blood Culture Blood culture incubation started P 07/08/2023 0655 07/10/2023 0734 Urine culture [[id number]] (Abnormal) Urine, Clean Catch Final result Component Value Urine Culture Normal urogenital alin present 50,000-90,000 CFU/mL Escherichia coli Abnormal 07/07/2023 1852 07/10/2023 0935 Blood culture Site #2 - Suspected Infection [[id number]] (Abnormal) Blood, Venous Final result Component Value Blood Culture Staphylococcus capitis Panic Contamination likely unless additional blood culture sets are found to be positive with the same organism. This is an edited result. Previous organism was Gram-positive cocci on 07/09/2023 at 0049 EST. 07/07/2023 1846 07/10/2023 0935 Blood culture Site #1 - Suspected Infection [[id number]] (Abnormal) Blood, Venous Final result Component Value Blood Culture Staphylococcus warneri Panic Contamination likely unless additional blood culture sets are found to be positive with the same organism. This is an edited result. Previous organism was Gram-positive cocci on 07/08/2023 at 1347 EST. 07/07/2023 1846 07/08/2023 1341 Blood Culture Identification - Anaerobic [[id number]] (Abnormal) Blood, Venous Final result Component Value Coagulase-negative Staphylococcus Detected Abnormal Lines: PIV site ok Radiography/Echo/Other: CT head wo IV contrast [[id number]] Collected: 07/07/231822 Order Status: Completed Updated: 07/07/231828 [...] 6:28 PM EST XR chest 1 view [[id number]] Collected: 07/07/231553 Order Status: Completed Updated: 07/07/231556 Narrative: [facility] 1975 [id number] Exam Date/Time: 07/07/2023 15:57 Procedure: XR CHEST [...] Date - 2 d - Location - [facility] Facility - Pending the following - YOKO M ESTERLE, DO 07/10/23 9:12 AM Pharmacy Vancomycin Consult Follow-Up Note Non-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 OCCUPATIONAL THERAPY [facility] Name/MRN: Diana Calabrese ([id number]) Date: 07/09/2023 OT orders received and chart reviewed. Per chart review, pt is dependent with ADLs and is bed bound at baseline. Pt not appropriate for OT evaluations. Will complete orders. Ranjana Enriquez OT Images from the original note were not included. PHYSICAL THERAPY [facility] Name/MRN: Diana Calabrese ([id number]) Date: 07/09/2023 Orders received, chart reviewed, and [...] poor oral intakes. documented in this encounter [facility] 07-11-2023 Note Formatting of this n ote might be different from the original. Discharge med list transmitted to return back to [facility] via [facility] per TCC request. [facility] 07-11-2023 Note Formatting of this n ote might be different from the original. Discharge med list transmitted to return back to [facility] via [facility] per TCC request. [facility] 07-11-2023 Miscellaneous Notes Discharge med list transmitted to return back to [facility] via [facility] per TCC request. Dc to [facility] this evening at 6:00. [facility] to transport. Ambulance form completed. [facility] message sent the [facility] to notify them of patients return. Left message for patients legal Guardian, Costume Design Teacher [place] to notify him of discharge and the lease picker time. Report number provided to the bedside nurse. Received message from bedside RN; reports Dr. Morse is ready for DC. 2 [facility] aware. [facility] tasked to send final MAR, DC summary and final updates to [facility]. Received message from Dr. Morse; states patient is now complaining of abdominal pain. CT abdomen ordered. Will plan for discharge later today. Bedside RN and [address] aware. 1045: TCC section of ERNESTO completed. Noted patient discharge today. Received message from [facility]. Patient is a bed hold and no authorization required to return. Noted patient has Legal Guardian; Costume Design Teacher Eric Chappell: office, or Cell, . Spoke with Legal Guardian over the phone. Explained role. He is in agreement to return to [facility] when ready. He is aware to anticipate DC today. Facility updated. Will discuss in rounds today. Referral placed to Return [facility] via [facility] per TCC request. Await review and response regarding ability to accept. TCC notified. Care Managment Initial Assessment Date: 07/10/2023 Patient Name: Diana Calabrese : 1975 Patient Information Source of Information: Patient Cognition/Language: Impaired, Other (Comment) (Delayed -TBI) Permission given to speak with patient practice representative/caregiver as indicated: Yes Confirmation of Payer with patient/family: Yes Payer Name: Blaise Moreno [phone], friend, Erin Mora [phone], friend [place]: No Confirmation of Primary Care Physician: Confirmed PCP Name: Venkat Malin Primary Caregiver: Other (Comment) If assistance needed, confirmed caregiver ready, willing and able to care for patient at discharge: Confirmed with: Living Arrangements Current Residence: Number of Floors Number of Entry Steps: Bed/Bath Levels: Facility: [facility] Facility Name: [facility] Plan to Return: Yes Lives with: Other (Comment) Support Systems: Comments (Other) Activities of Daily Living Ambulation: Total Care (Patient is bed bound) Bathing/Dressing: Total Care Elimination/Continence/Toileting: Total Care Feeding: Total Care Who Assists with Activities of Daily Living: [facility] Instrumental Activities of Daily Living Prescription Coverage: [...] expects to be discharged to: Return to [facility] Discharge Planning Actions: Continue to follow, Shelter Facility referral indicated Patient's Choice Rights and [employer] and Collaborative Relationships Disclosed as Indicated for Post-Acute Care: Interdisciplinary Team Engagement: Social Work Referral for: Additional Information: Chart reviewed. Patient admitted to [facility] for treatment of UTI. Blood cultures pending. HX of TBI, Bipolar, Paraplegia. Regular diet. On IV Vancomycin. Met with patient at bedside today. Explained role. Patient informs she is from [facility] and she would like to return there at discharge. 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 Will need to confirm level of care. DC plan: Return to [facility] Fatuma aPlma RN Problem: Knowledge Deficit Goal: Patient/family/caregiver demonstrates [...] if this changes. documented in this encounter [facility] 07-11-2023 Note Formatting of this n ote might be different from the original. Dc to [facility] this evening at 6:00. [facility] to transport. Ambulance form completed. [facility] message sent the [facility] to notify them of patients return. Left message for patients legal Guardian, Costume Design Teacher [place] to notify him of discharge and the lease picker time. Report number provided to the bedside nurse. [facility] 07-11-2023 Note Formatting of this n ote might be different from the original. Dc to [facility] this evening at 6:00. [facility] to transport. Ambulance form completed. [facility] message sent the [facility] to notify them of patients return. Left message for patients legal Guardian, Costume Design Teacher [place] to notify him of discharge and the lease picker time. Report number provided to the bedside nurse. [facility] 07-11-2023 Note Formatting of this n ote might be different from the original. Received message from bedside RN; reports Dr. Morse is ready for DC. 2 [facility] aware. LUMBER LOADER tasked to send final MAR, DC summary and final updates to [facility]. [facility] 07-11-2023 Note Formatting of this n ote might be different from the original. Received message from bedside RN; reports Dr. Morse is ready for DC. 2 [facility] aware. LUMBER LOADER tasked to send final MAR, DC summary and final updates to [facility]. [facility] 07-11-2023 Note Discharge Summary Diana Calabrese : 1975 ADMIT DATE: 07/07/2023 DISCHARGE DATE: 07/11/2023 PRIMARY CARE PHYSICIAN: Venkat Malin VISIT STATUS: Admission CODE STATUS: Full Code DISCHARGE DIAGNOSES: Principal Problem: Urinary tract infection HOSPITAL COURSE: Diana Calabrese is a 47 y.o. female with PMH per EMR history of Alzheimer's dementia, hypertension, quadriplegia, presents from group home facility with concern for altered mental status. [...] She [facility]. SIGNIFICANT DIAGNOSTIC STUDIES: Labs xrays CONSULTANTS: [...] Complexity: follow up within 7-14 calendar days (20339) [] Severe Complexity: follow up within 7 calendar days (58673) FOLLOW UP TESTING, PENDING RESULTS OR REFERRALS AT TRANSITIONAL CARE VISIT: [] Yes [] No PENDING STUDIES: none DISPOSITION: Skilled Facility FACILITY/HOME CARE AGENCY NAME: [facility] Follow up with Dr Malin at the [facility] INSTRUCTIONS TO MA/SW: Please call patient on [...] SIGNED: YOKO MORSE DO 07/11/2023, 8:54 AM [facility] 07-11-2023 Note Formatting of this n ote might be different from the original. Received message from Dr. Morse; states patient is now complaining of abdominal pain. CT abdomen ordered. Will plan for discharge later today. Bedside RN and [address] [place] [address] aware. 1045: TCC section of ERNESTO completed. [facility] 07-11-2023 Note Formatting of this n ote might be different from the original. Received message from Dr. Morse; states patient is now complaining of abdominal pain. CT abdomen ordered. Will plan for discharge later today. Bedside RN and [address] 1045: TCC section of ERNESTO completed. [facility] 07-11-2023 Hospital course Narrative Images from the [...] of Alzheimer's dementia, hypertension, quadriplegia, presents from group home facility with concern for altered mental status. [...] She is returning to [facility] today. SIGNIFICANT DIAGNOSTIC STUDIES: Labs xrays CONSULTANTS: [...] Complexity: follow up within 7-14 calendar days (27105) [] Severe Complexity: follow up within 7 calendar days (54953) FOLLOW UP TESTING, PENDING RESULTS OR REFERRALS AT TRANSITIONAL CARE VISIT: [] Yes [] No PENDING STUDIES: none DISPOSITION: Skilled Facility FACILITY/HOME CARE AGENCY NAME: [facility] Follow up with Dr Malin at the [...] 07/11/2023, 8:54 AM documented in this encounter [facility] 07-11-2023 Note Formatting of this n ote might be different from the original. Noted patient discharge today. Received message from [facility]. Patient is a bed hold and no authorization required to return. Noted patient has Legal Guardian; Costume Design Teacher Eric Chappell: office, or Cell, . Spoke with Legal Guardian over the phone. Explained role. He is in agreement to return to [facility] when ready. He is aware to anticipate DC today. Facility updated. Will discuss in rounds today. [facility] 07-11-2023 Note Formatting of this n ote might be different from the original. Noted patient discharge today. Received message from [facility]. Patient is a bed hold and no authorization required to return. Noted patient has Legal Guardian; Costume Design Teacher Eric Chappell: office, or Cell, . Spoke with Legal Guardian over the phone. Explained role. He is in agreement to return to [facility] when ready. He is aware to anticipate DC today. Facility updated. Will discuss in rounds today. [facility] 07-10-2023 Hospital Discharg e suki Da Silva [...] assistance Toileting Total assistance Feeding Minimal assistance Program And Research Coordinator Total assistance Med Delivery no Wound Care [...] Discharging to Facility/ Agency Name: Return to [facility] Address: [address] [place] [address] Fax: Dialysis Facility (if applicable) Name: Address: Dialysis Schedule: Phone: Fax: Teacher Of The Emotionally Disturbed/Alligator Trapper signature: ICIAN SECTION Prognosis: poor Condition at Discharge: stable Rehab Potential (if transferring to Rehab): poor Recommended Labs or Other Treatments After Discharge: none Physician Certification: I certify the above information and transfer of Diana Calabrese is necessary for the continuing treatment of the diagnosis listed and that she requires group home facility for greater than 30 days. Update Admission H&P: No change in H&P PHYSICIAN SIGNATURE: documented in this encounter [facility] 07-10-2023 Note [facility] Medical Group - Infectious Diseases Attending Progress [...] She was admitted on 07/07/23 from a group home facility via EMS with concern for altered [...] #1 - Assess for effectiveness of treatment [[id number]] Blood, Venous Preliminary result Component Value Blood Culture Blood culture incubation started P 07/09/2023 1237 07/09/2023 1701 Blood culture Site #2 - Assess for effectiveness of treatment [[id number]] Blood, Venous Preliminary result Component Value Blood Culture Blood culture incubation started P 07/08/2023 0655 07/10/2023 0734 Urine culture [[id number]] (Abnormal) Urine, Clean Catch Final result Component Value Urine Culture Normal urogenital alin present 50,000-90,000 CFU/mL Escherichia coli Abnormal 07/07/2023 1852 07/10/2023 0935 Blood culture Site #2 - Suspected Infection [[id number]] (Abnormal) Blood, Venous Final result Component Value Blood Culture Staphylococcus capitis Panic Contamination likely unless additional blood culture sets are found to be positive with the same organism. This is an edited result. Previous organism was Gram-positive cocci on 07/09/2023 at 0049 EST. 07/07/2023 1846 07/10/2023 0935 Blood culture Site #1 - Suspected Infection [[id number]] (Abnormal) Blood, Venous Final result Component Value Blood Culture Staphylococcus warneri Panic Contamination likely unless additional blood culture sets are found to be positive with the same organism. This is an edited (more content not included)... [facility] 07-10-2023 Note Referral placed to Emiliano gramajo [facility] via [facility] per [facility] request. Await review and response regarding ability to accept. [facility] notified. [facility] 07-10-2023 Consult note Associated Order (s): PHARMACY TO DOSE VANCO Vancomycin therapy has been discontinued by Dr Pelayo on 07/10/23. Thank you for the consult. Pharmacy signing off for vancomycin dosing. Mayra Cespedes PharmD Date: 07/10/23 Time: 1:29 PM [facility] 07-10-2023 Consult note Associated Order (s): PHARMACY TO DOSE VANCO Vancomycin therapy has been discontinued by Dr Pelayo on 07/10/23. Thank you for the consult. Pharmacy signing off for vancomycin dosing. 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 year [...] from the original note were not included. [facility] - Infectious Diseases Attending Consult Note Reason for Consult: UTI Bacteremia History of Present Illness: Patient is 47 year old admitted to [facility] because of mentation changes. History from patient [...] min Stress: No Stress Concern Present (07/08/2023) [place] [employer] - Occupational Stress Questionnaire Feeling of Stress : Not at all Social Connections: Unknown (07/08/2023) Social Connection and Isolation Panel [NHANES] Frequency of Communication with Friends and Family: Patient refused Frequency of Social Gatherings with Friends and Family: Patient refused Attends Scientology Services: Never Active Member of Clubs or [...] MD, MACP, FIDSA documented in this encounter [facility] 07-10-2023 Note Formatting of this n ote might be different from the original. Referral placed to Return [facility] via [facility] per [facility] request. Await review and response regarding ability to accept. [facility] notified. [facility] 07-10-2023 Note Formatting of this n ote might be different from the original. Referral placed to Return [facility] via [facility] per [facility] request. Await review and response regarding ability to accept. [facility] notified. [facility] 07-10-2023 Note Formatting of this n ote might be different from the original. Care Managment Initial Assessment Date: 07/10/2023 Patient Name: Diana Calabrese : 1975 Patient Information Source of Information: Patient Cognition/Language: Impaired, Other (Comment) (Delayed -TBI) Permission given to speak with patient practice representative/caregiver as indicated: Yes Confirmation of Payer with patient/family: Yes Payer Name: Blaise Moreno [phone], friend, Erin Mora [phone], friend : No Confirmation of Primary Care Physician: Confirmed PCP Name: Venkat Malin Primary Caregiver: Other (Comment) If assistance needed, confirmed caregiver ready, willing and able to care for patient at discharge: Confirmed with: Living Arrangements Current Residence: Number of Floors Number of Entry Steps: Bed/Bath Levels: Facility: [facility] Facility Name: [facility] Plan to Return: Yes Lives with: Other (Comment) Support Systems: Comments (Other) Activities of Daily Living Ambulation: Total Care (Patient is bed bound) Bathing/Dressing: Total Care Elimination/Continence/Toileting: Total Care Feeding: Total Care Who Assists with Activities of Daily Living: [facility] Instrumental Activities of Daily Living Prescription Coverage: [...] expects to be discharged to: Return to [facility] Discharge Planning Actions: Continue to follow, Shelter Facility referral indicated Patient's Choice Rights and [employer] and Collaborative Relationships Disclosed as Indicated for Post-Acute Care: Interdisciplinary Team Engagement: Social Work Referral for: Additional Information: Chart reviewed. Patient admitted to [facility] for treatment of UTI. Blood cultures pending. HX of TBI, Bipolar, Paraplegia. Regular diet. On IV Vancomycin. Met with patient at bedside today. Explained role. Patient informs she is from [facility] and she would like to return there at discharge. 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 Will need to confirm level of care. DC plan: Return to [facility] Fatuma Palma RN [facility] 07-10-2023 Note Formatting of this n ote might be different from the original. Care Managment Initial Assessment Date: 07/10/2023 Patient Name: Diana Calabrese : 1975 Patient Information Source of Information: Patient Cognition/Language: Impaired, Other (Comment) (Delayed -TBI) Permission given to speak with patient practice representative/caregiver as indicated: Yes Confirmation of Payer with patient/family: Yes Payer Name: Blaise Moreno [phone], friend, Erin Mora [phone], friend [place]: No Confirmation of Primary Care Physician: Confirmed PCP Name: Venkat Malin Primary Caregiver: Other (Comment) If assistance needed, confirmed caregiver ready, willing and able to care for patient at discharge: Confirmed with: Living Arrangements Current Residence: Number of Floors Number of Entry Steps: Bed/Bath Levels: Facility: [facility] Facility Name: [facility] Plan to Return: Yes Lives with: Other (Comment) Support Systems: Comments (Other) Activities of Daily Living Ambulation: Total Care (Patient is bed bound) Bathing/Dressing: Total Care Elimination/Continence/Toileting: Total Care Feeding: Total Care Who Assists with Activities of Daily Living: [facility] Instrumental Activities of Daily Living Prescription Coverage: [...] expects to be discharged to: Return to [facility] Discharge Planning Actions: Continue to follow, Shelter Facility referral indicated Patient's Choice Rights and [employer] and Collaborative Relationships Disclosed as Indicated for Post-Acute Care: Interdisciplinary Team Engagement: Social Work Referral for: Additional Information: Chart reviewed. Patient admitted to [facility] for treatment of UTI. Blood cultures pending. HX of TBI, Bipolar, Paraplegia. Regular diet. On IV Vancomycin. Met with patient at bedside today. Explained role. Patient informs she is from [facility] and she would like to return there at discharge. 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 Will need to confirm level of care. DC plan: Return to [facility] Fatuma Palma RN [facility] 07-10-2023 Note Department of Family Medicine Daily [...] - YOKO MORSE, DO 07/10/23 9:12 AM [facility] 07-09-2023 Note Department of Family Medicine Daily [...] - YOKO MORSE, DO 07/09/23 9:30 AM [facility] 07-09-2023 Consult note Formatting of th is note is different from the original. 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 year [...] for the consult. Will continue to follow. [facility] 07-09-2023 Consult note Associated Order (s): IP CONSULT TO INFECTIOUS DISEASES Images from the original note were not included. [facility] - Infectious Diseases Attending Consult Note Reason for Consult: UTI Bacteremia History of Present Illness: Patient is 47 year old admitted to [facility] because of mentation changes. History from patient [...] min Stress: No Stress Concern Present (07/08/2023) [place] [employer] - Occupational Stress Questionnaire Feeling of Stress : Not at all Social Connections: Unknown (07/08/2023) Social Connection and Isolation Panel [NHANES] Frequency of Communication with Friends and Family: Patient refused Frequency of Social Gatherings with Friends and Family: Patient refused Attends Scientology Services: Never Active Member of Clubs or [...] accounting for open encounter. Michael Toscano MD, [facility] Work Phone: 07-09-2023 Plan of care note [...] medications per MAR, provide a restful environment. [facility] 07-08-2023 Note Department of Family Medicine Attending History and Physical CHIEF COMPLAINT: AMS Reason for Admission: uti History Obtained From: medical records History of Present Illness Diana Calabrese is a 47 y.o. female with PMH per EMR history of Alzheimer's dementia, hypertension, quadriplegia, presents from group home facility with concern for altered mental status. [...] SCHEDULED FOR SURGERY TODAT (11/03/2016) Constipated Dementia ([facility]) Dysarthria Dysphagia Elevated liver enzymes Epilepsy (HCC) [...] min Stress: No Stress Concern Present (07/08/2023) [place] [employer] - Occupational Stress Questionnaire Feeling of Stress : Not at all Social Connections: Unknown (07/08/2023) Social Connection and Isolation Panel [NHANES] Frequency of Communication with Friends and Family: Patient refused Frequency of Social Gatherings with Friends and Family: Patient refused Attends Scientology Services: Never Active Member of Clubs or [...] 88 Temp 36 (more content not included)... [facility] 07-08-2023 History and physical note Department of Family Medicine Attending History and Physical CHIEF COMPLAINT: AMS Reason for Admission: uti History Obtained From: medical records History of Present Illness Diana Calabrese is a 47 y.o. female with PMH per EMR history of Alzheimer's dementia, hypertension, quadriplegia, presents from group home facility with concern for altered mental status. [...] min Stress: No Stress Concern Present (07/08/2023) [place] [employer] - Occupational Stress Questionnaire Feeling of Stress : Not at all Social Connections: Unknown (07/08/2023) Social Connection and Isolation Panel [NHANES] Frequency of Communication with Friends and Family: Patient refused Frequency of Social Gatherings with Friends and Family: Patient refused Attends Scientology Services: Never Active Member of Clubs or [...] results YOKO MORSE DO 07/08/23 9:35 AM [facility] 07-08-2023 History and physical note Department of Family Medicine Attending History and Physical CHIEF COMPLAINT: AMS Reason for Admission: uti History Obtained From: medical records History of Present Illness Diana Calabrese is a 47 y.o. female with PMH per EMR history of Alzheimer's dementia, hypertension, quadriplegia, presents from group home facility with concern for altered mental status. [...] min Stress: No Stress Concern Present (07/08/2023) [place] [employer] - Occupational Stress Questionnaire Feeling of Stress : Not at all Social Connections: Unknown (07/08/2023) Social Connection and Isolation Panel [NHANES] Frequency of Communication with Friends and Family: Patient refused Frequency of Social Gatherings with Friends and Family: Patient refused Attends Scientology Services: Never Active Member of Clubs or [...] 07/08/23 9:35 AM [facility] of care note Problem: Knowledge [...] Recommendations to address these barriers include . [facility] 07-07-2023 Note Formatting of this n ote [...] time. Please reach out if this changes. [employer] Work Phone: 07-07-2023 Note Formatting of this [...] time. Please reach out if this changes. [facility] Work Phone: 07-07-2023 Emergency department Note Bed: 14 Expected date: Expected time: Means of arrival: Comments: Darshan Read RN 07/07/23 7930 [place] 07-07-2023 Emergency department Note Emergency Department Encounter [facility] ED Patient: Diana Calabrese : 1975 Date of Evaluation: 07/07/2023 ED Provider: Dakotah Walters MD Note: I wore an N95 mask and gloves during this encounter. CHIEF COMPLAINT: Altered mental status HPI: Diana Calabrese is a 47 y.o. female with PMH per EMR history of Alzheimer's dementia, hypertension, quadriplegia, presents from group home facility with concern for altered mental status. [...] dictating provider for clarification. Dakotah Walters MD [facility] Dakotah Walters MD 07/07/232049 Dakotah Walters MD 07/07/232131 Arrived via ems [place] [facility] [place] AMS per staff, A/0 x3 per EMS, patient A/0 x3, GCS 15, able to speak in slow clear sentences and respond to questions, providing limited pmhx, placed on monitor, continue with plan of care, patient with call light within reach Bed: 14 Expected date: Expected time: Means of arrival: Comments: Darshan Read RN 07/07/23 1510 documented in this encounter [facility] 07-07-2023 Emergency department Triage note Arrived via ems from [facility] AMS per staff, A/0 x3 per EMS, patient A/0 x3, GCS 15, able to speak in slow clear sentences and respond to questions, providing limited pmhx, placed on monitor, continue with plan of care, patient with call light within reach [facility] 07-07-2023 Physician Emergency department Note Emergency Department Encounter [facility] ED Patient: Diana Calabrese : 1975 Date of Evaluation: 07/07/2023 ED Provider: Dakotah Walters MD Note: I wore an N95 mask and gloves during this encounter. CHIEF COMPLAINT: Altered mental status HPI: Diana Calabrese is a 47 y.o. female with PMH per EMR history of Alzheimer's dementia, hypertension, quadriplegia, presents from group home facility with concern for altered mental status. [...] for clarification. Dakotah Walters MD Acute Care [facility] Dakotah Walters MD 07/07/232049 Dakotah Walters MD 07/07/232131 [facility] 05-09-2023 Note General Surgery History and Physical Zi Wright MD, MPH Patient ID: Diana Calabrese [id number] 47 y.o. 1975 CHIEF COMPLAINT: Chief Complaint Patient presents with Abnormal Breast US SLUNK SKINNER Abnormal Breast US referral from Dr. Malin HPI: Diana Calabrese is a 47 y.o. female who presents with abnormal US of L breast Patient presents today for evaluation of L breast lesion found on exam and screening US. Patient comes from [facility] and is joined by her transporter. Patient [...] anywhere is her chart both paper from [place] or from EMR. Patient states that she [...] throat and trouble (more content not included)... [facility] 05-09-2023 History of Presen t illness Narrative Images from the original note were not included. General Surgery History and Physical Zi Wright MD, MPH Patient ID: Diana Calabrese [id number] 47 y.o. 1975 CHIEF COMPLAINT: Chief Complaint Patient presents with Abnormal Breast US SLUNK SKINNER Abnormal Breast US referral from Dr. Malin HPI: Diana Calabrese is a 47 y.o. female who presents with abnormal US of L breast Patient presents today for evaluation of L breast lesion found on exam and screening US. Patient comes from [facility] and is joined by her transporter. Patient [...] anywhere is her chart both paper from [place] or from EMR. Patient states that she [...] kg/m Physical Exam Exam conducted with a tamale machine feeder present. 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 Automatic Expl anation ACP-Advance Directive ACP-Power of Costume Design Teacher ACP-Power of Costume Design Teacher 10/02/2020 3:31 PM PA IN [facility]- POA Latest Code Status on File Code Status Date Activated Date Inactivated Comments Full Code 11/03/2016 4:21 PM 11/04/2016 7:24 PM Full Code 11/03/2016 10:26 AM 11/03/2016 4:10 PM Documents on File Type Date Recorded 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 Automatic Expl anation Advance Directives and Livin g Will 06/08/2023 2:26 PM Latest Code Status on File Code Status Date Activated Date Inactivated Comments Full Code 07/07/2023 10:13 PM 07/11/2023 9:26 PM Additional Source Comments INFORMATION SOURCE (unrecogn ized section and content) DATE CREATED AUTHOR AUTHOR'S ORGANIZ ATION 01/23/2018 [employer] DATE CREATED AUTHOR AUTHOR'S ORGANIZ ATION 06/20/2018 [facility] [place] DATE CREATED AUTHOR AUTHOR'S ORGANIZ ATION 08/03/2021 [facility] DATE CREATED AUTHOR AUTHOR'S ORGANIZ ATION 11/21/2022 [facility] DATE CREATED AUTHOR AUTHOR'S ORGANIZ ATION 07/15/2023 [employer] [facility] Reason for Visit (unrecogniz ed section and content) Reason Comments Abnormal Breast US SLUNK SKINNER Abnormal Breast U S referral from Dr. Malin Reason Comments Altered Mental Status Per SNF, A/0 x3 pe r EMS Specialty Diagnoses / Procedures Referred By Contac t Referred To Contact Diagnoses Urinary tract infection Procedures . Yoko Morse M, DO [address] [place] [address] [facility] [address] [place] [address] Referral ID Status Reason Start Date Expiration Date Visits Re quested Visits Authorized [id number] 1 Scheduled Active and Recently Administ [...] at 2215 2044 (Given - Provider: Azucena Godfrey RN) 2204 (Given - Provider: Azucena Godfrey [...] Dena Dejesus RN) 1236 (Given - Provider: Tatainna Da Silva RN) 1014 (Given - Provider: [...] in 24 hours. 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 [facility]. provides no warranty or guarantee of the accuracy or completeness of information in this document.
== END | disposition home or self-care (01) ==
LOC: OLS.SANC 08:00
PROVIDERS: Visit Provider Internal Medicine
DX: F03.90 Unspecified dementia, unspecified severity, without behavioral disturbance, psychotic disturbance, mood disturbance, and anxiety (principal); Z79.899 Other long term (current) drug therapy
CPT/HCPCS: 36415; 80053; 80156; 85025

== ENCOUNTER → 2023-09-19 | Outpatient (REF) | payer MEDICAID, SELFPAY ==
[2023-09-19 09:44] LABS: Hematocrit 44.8 % (37-47); Hemoglobin 13.6 g/dL (12.0-15.0); Mean Corp Hgb Conc 30.4 g/dL (32-36); Mean Corpuscular Hgb 27.3 pg (27.0-32.0); Mean Platelet Vol. 11.4 fl (6.2-12.0); Platelet Count 331 K/mm3 (150-450); RBC Distribution Width CV 14.5 % (11.6-14.6); Red Blood Count 4.98 M/mm3 (4.2-5.4); White Blood Count 7.7 K/mm3 (4.4-11.0)
[2023-09-19 10:40] LABS: ALB/GLOB Ratio 0.5 RATIO (0.9-2.4); AST(SGOT) 12 U/L (15-37); Alanine Aminotransfer ALT/SGPT 12 U/L (13-56); Albumin, Serum 2.8 g/dL (3.2-5.0); Alkaline Phosphatase 122 U/L (45-117); Anion Gap 5 (5-15); BUN 16 mg/dL (7-18); BUN/Creat Ratio 20.3 RATIO (10-20); Calcium,Total 9.3 mg/dL (8.5-10.1); Chloride 111 mmol/L (98-107); Creatinine, Serum 0.79 mg/dL (0.55-1.02); EST Glomerular Filtration Rate 83 mL/min (>60); Est Glom Filt Rate - Afr Amer 100 mL/min (>60); Globulin 5.1 g/dL (2.2-4.2); Glucose 97 mg/dL (74-106); Potassium 3.9 mmol/L (3.5-5.1); Protein, Total 7.9 g/dL (6.4-8.2); Sodium Level 139 mmol/L (136-145)
[2023-09-24 16:07] LABS: Trileptal-Oxcarbazepine 17 ug/mL (10-35)
== END | disposition home or self-care (01) ==
LOC: OLS.SANC 08:00
PROVIDERS: Visit Provider Internal Medicine
DX: D64.9 Anemia, unspecified (principal); F03.90 Unspecified dementia, unspecified severity, without behavioral disturbance, psychotic disturbance, mood disturbance, and anxiety; I10 Essential (primary) hypertension; Z79.899 Other long term (current) drug therapy
CPT/HCPCS: 36415; 80053; 82542; 85027

== ENCOUNTER → 2023-09-20 | Outpatient (REF) | payer MEDICAID, SELFPAY ==
--- OUTSIDE RECORDS SUMMARY | 2023-09-20 04:33 | XMS RPT_ITS | CCD ---
Author Name Unknown Address [address] [place] [address] Organization [facility] Care Team Providers Care Housekeeping Room Attendant Name Role Phone JUNIOR QUINONES Unavailable Unavailable JONI, JUNIOR J Unavailable Unavailable Gresham, Junior Unavailable Unavailable Esterle, Yoko Unavailable Unavailable Esterle, Yoko Unavailable Unavailable Aamir, Maurice Unavailable Unavailable Esterle DOYoko M Primary Care Provider Venkat Malin Primary Care Provider ZI WRIGHT Referring Unavailable ZI WRIGHT Attending [...] reactions to drug (disorder) 7 Rash, Swelling [facility] Repository (7 sources) morphine; Translations: [MORPHINE] Drug Allergy 7 Swelling [facility] Repository (7 sources) pineapple flavor; Translations: [PINEAPPLE] Drug Allergy 7 Swelling [facility] Repository (1 source) avocado allergenic extract Drug Allergy 1 [facility] (6 sources) Alcohol Propensity to adverse reactions to drug 7 Unknown [facility] (5 sources) avocado oil Drug Allergy 1 [facility] (5 sources) Kiwi fruit Allergy to substance 3 [facility] NEGATED: Highlighted row has been ruled out! (1 source) Other Propensity to adverse reactions 1 [employer] Work Phone: Medications Current Medications Medication Drug [...] 97.11 [degF] Dakotah Walters MD Work Phone: [facility] [employer] 07-11-2023 16:05-0500 Diastolic blood pressure 58 mm[Hg] Dakotah Walters MD Work Phone: [facility] [employer] 07-11-2023 16:05-0500 Heart rate 67 /min Dakotah Walters MD Work Phone: [facility] [employer] 07-11-2023 16:05-0500 Respiratory rate 18 /min Dakotah Walters MD Work Phone: [facility] [employer] 07-11-2023 16:05-0500 SaO2% (BldA) [Mass fraction] 95 % Dakotah Walters MD Work Phone: [facility] [employer] 07-11-2023 16:05-0500 Systolic blood pressure 102 mm[Hg] Dakotah Walters MD Work Phone: [facility] [employer] 07-10-2023 13:27-0500 Body height 172.7 cm Dakotah Walters MD Work Phone: [facility] [employer] 07-10-2023 13:00-0500 Body mass index (BMI) [Ratio] 30.71 kg/m2 Dakotah Walters MD Work Phone: [facility] 07-10-2023 13:00-0500 Body weight 91.63 kg Dakotah Walters MD Work Phone: [facility] 05-09-2023 13:57-0400 Body height 188 cm Zi Wright MD Work Phone: [facility] 07-03-2021 19:25-0500 Diastolic blood pressure 59 mm[Hg] Juanjose Patton MD Work Phone: [facility] 07-03-2021 19:25-0500 Systolic blood pressure 91 mm[Hg] Juanjose Patton MD Work Phone: [facility] 07-03-2021 19:21-0500 Heart rate 75 /min Juanjose Patton MD Work Phone: [facility] 07-03-2021 19:21-0500 Respiratory rate 15 /min Juanjose Patton MD Work Phone: [facility] 07-03-2021 19:21-0500 SaO2% (BldA) [Mass fraction] 97 % Juanjose Patton MD Work Phone: [facility] 07-03-2021 15:22-0500 Body temperature 98.01 [degF] Juanjose Patton MD Work Phone: [facility] Encounters Encounter Date Encounter Type Care Provider Facility Start: 07-07-2023 End: 07-11-2023 Evaluation and management of inpatient [facility] Start: 07-07-2023 End: 07-11-2023 Evaluation and management of inpatient Dakotah Walters MD Work Phone: [facility] Cardiac Progressive Care Unit PCU 2E Procedures Date Procedure Procedure Detail Performing Clinician Start: 07-11-2023 Ct abdomen & pelvis w/o contrast material Yoko Morse DO Work Phone: Start: 07-10-2023 Basic metabolic pane l calcium total Yoko Duran Esterlenore DO Work Phone: Start: 07-10-2023 Drug screen quantita tive vancomycin Michael Toscaon MD Work Phone: Start: 07-09-2023 Bacteria identified [...] or older (1 - 1-dose 60+ series) [facility] Start: 07-03-2031 DTaP/Tdap/Td vaccine (2 - Td or Tdap) DTaP/Tdap/Td vaccine (2 - Td or Tdap) [facility] Start: 07-03-2031 DTaP/Tdap/Td Vaccine s (2 - Td or Tdap) DTaP/Tdap/Td Vaccines (2 - Td or Tdap) [facility] Start: 2025 Zoster Vaccines (1 of 2) Zoster Vacc lin (1 of 2) [facility] Start: 05-09-2023 End: 07-09-2024 MG Breast - bilateral Diagnostic Bilateral diagnostic mammogram Imaging Routine Mass of lower inner quadrant of left breast Expected: 05/09/2023, Expires: 07/09/2024 [facility] Work Phone: Immunizations Immunization Date Immunization Notes Care Provider Fa cili 07-08-2023 influenza vac subuni t quadrivalent (Flucelvax) injection 0.5 mL Dakotah Walters MD Work Phone: [facility] 07-03-2021 tetanus toxoid, redu teodoro diphtheria toxoid, and acellular pertussis vaccine, adsorbed Juanjose Patton MD Work Phone: [facility] 05-04-2021 influenza virus vacc ine, unspecified formulation Zi Wright MD Work Phone: [facility] [employer] Payers Date Payer Category Payer Medicaid 2016 Medicaid [id number] Unknown [id number] Social History Date Type Detail Facility Start: 09-06-2016 Tobacco smoking status NHIS Ex-smoke r [facility] Work Phone: Start: 09-06-2016 Tobacco use and exposure Smoke less tobacco non-user [facility] Work Phone: Start: 07-03-2021 End: 07-09-2023 Alcohol intake Current non-drinker of alcohol (finding) [facility] Work Phone: Start: 1975 Sex Assigned At Not on file [facility] Work Phone: Exposure to SARS-CoV -2 (event) Unable to assess [facility] History of tobacco use Current smoker [facility] Start: 06-03-2022 End: 07-08-2023 History of Social function [facility] [employer] Start: 06-03-2022 End: 07-08-2023 Alcohol Use Disorder Identification Test - Consumption [AUDIT-C] [facility] How often to you hav e a drink containing alcohol? Never [facility] Average Number of Drinks Not on file [facility] [employer] Has the [employer], [employer], or water [employer] threatened to shut off services in your home in past 12Mo No [facility] Are you now , , , , never or living with a partner? Never [facility] Do you feel stress - tense, restless, nervous, or anxious, or unable to sleep at night because your mind is troubled all the time - these days [OSQ] Not at all [facility] (I/We) worried wheth er (my/our) food would run out before (I/we) got money to buy more. Never true [facility] Clinical Notes 05-09-2023 to 07-11-2023 Tatianna Da Silva RN - 07/11/2023 5:33 PM Rashard Da Silva RN - 07/11/2023 5:[address] - 07/10/2023 1:37 PM Declan Pelayo MD - 07/10/2023 12:57 PM Eunice Instr - ERNESTO Note Date & Type Note Facility 07-11-2023 History of Presen t illness Narrative Report was called to [facility]. They were notified of the estimated oyster picker time of 1800. This nurse called [facility] to give report but received no answer. [...] muscle mass loss Fluid Accumulation: Mild Extremities Technology Manager Strength: Not Performed Nutrition Assessment: Pt was [...] On: Kcal/kg Weight Used for Energy Requirements: [place] Weight for Energy Calculation (kg): 64 kg Total Energy Requirements (kcals/day): 1471-0491 kcals (25-30 kcals/kg) Weight Used for Protein Requirements: [place] Weight in Kg Used for Protein Requirements: 64 kg Estimated Total Protein (g/day): 51-64 (0.8-1g/kg) Estimated Daily Total Fluid (ml/day): 5730-2786 ml/day or per MD Nutrition Related Findings: [...] (219 lb) (estimated) Usual Body Weight: (BON) [place] Body Weight (lbs) (Calculated): 140 lbs [place] Body Weight (Kg) (Calculated): 64 kg % [place] Body Weight (Calculated): 144.3 % BMI (kg/m2) [...] soon to determine Addison Marroquin RD Contact: *[phone] or via Secure Chat Images from the [...] #1 - Assess for effectiveness of treatment [[id number]] Blood, Venous Preliminary result Component Value Blood Culture Blood culture incubation started P 07/09/2023 1237 07/09/2023 1701 Blood culture Site #2 - Assess for effectiveness of treatment [[id number]] Blood, Venous Preliminary result Component Value Blood Culture Blood culture incubation started P 07/08/2023 0655 07/10/2023 0734 Urine culture [[id number]] (Abnormal) Urine, Clean Catch Final result Component Value Urine Culture Normal urogenital alin present 50,000-90,000 CFU/mL Escherichia coli Abnormal 07/07/2023 1852 07/10/2023 0935 Blood culture Site #2 - Suspected Infection [[id number]] (Abnormal) Blood, Venous Final result Component Value Blood Culture Staphylococcus capitis Panic Contamination likely unless additional blood culture sets are found to be positive with the same organism. This is an edited result. Previous organism was Gram-positive cocci on 07/09/2023 at 0049 EST. 07/07/2023 1846 07/10/2023 0935 Blood culture Site #1 - Suspected Infection [[id number]] (Abnormal) Blood, Venous Final result Component Value Blood Culture Staphylococcus warneri Panic Contamination likely unless additional blood culture sets are found to be positive with the same organism. This is an edited result. Previous organism was Gram-positive cocci on 07/08/2023 at 1347 EST. 07/07/2023 1846 07/08/2023 1341 Blood Culture Identification - Anaerobic [[id number]] (Abnormal) Blood, Venous Final result Component Value Coagulase-negative Staphylococcus Detected Abnormal Lines: PIV site ok Radiography/Echo/Other: CT head wo IV contrast [[id number]] Collected: 07/07/231822 Order Status: Completed Updated: 07/07/231828 [...] 6:28 PM EST XR chest 1 view [[id number]] Collected: 07/07/231553 Order Status: Completed Updated: 07/07/231556 Narrative: Patient Name: DIA[facility] CALABRESE : 1975 [id number] Exam Date/Time: 07/07/2023 15:57 Procedure: XR CHEST [...] Date - 2 d - Location - [facility] Facility - Pending the following - YOKO M ESTERLE, DO 07/10/23 9:12 AM Pharmacy Vancomycin Consult Follow-Up Note 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 OCCUPATIONAL THERAPY [facility] Name/MRN: Diana Calabrese ([id number]) Date: 07/09/2023 OT orders received and chart reviewed. Per chart review, pt is dependent with ADLs and is bed bound at baseline. Pt not appropriate for OT evaluations. Will complete orders. Ranjana Enriquez OT Images from the original note were not included. PHYSICAL THERAPY [facility] Name/MRN: Diana Calabrese ([id number]) Date: 07/09/2023 Orders received, chart reviewed, and [...] poor oral intakes. documented in this encounter [facility] 07-11-2023 Note Formatting of this n ote might be different from the original. Discharge med list transmitted to return back to [facility] via [facility] per TCC request. [facility] 07-11-2023 Note Formatting of this n ote might be different from the original. Discharge med list transmitted to return back to [facility] via [facility] per TCC request. [facility] 07-11-2023 Miscellaneous Notes Discharge med list transmitted to return back to [facility] via [facility] per TCC request. Dc to [facility] this evening at 6:00. [facility] to transport. Ambulance form completed. [facility] message sent the [facility] to notify them of patients return. Left message for patients legal Guardian, Utility Lineman [place] to notify him of discharge and the oyster picker time. Report number provided to the bedside nurse. Received message from bedside RN; reports Dr. Morse is ready for DC. 2 [facility] aware. [facility] tasked to send final MAR, DC summary and final updates to [facility]. Received message from Dr. Morse; states patient is now complaining of abdominal pain. CT abdomen ordered. Will plan for discharge later today. Bedside RN and [address] aware. 1045: TCC section of ERNESTO completed. Noted patient discharge today. Received message from [facility]. Patient is a bed hold and no authorization required to return. Noted patient has Legal Guardian; Utility Lineman Eric Chappell: office, or Cell, . Spoke with Legal Guardian over the phone. Explained role. He is in agreement to return to [facility] when ready. He is aware to anticipate DC today. Facility updated. Will discuss in rounds today. Referral placed to Return [facility] via [facility] per TCC request. Await review and response regarding ability to accept. TCC notified. Care Managment Initial Assessment Date: 07/10/2023 Patient Name: Diana Calabrese : 1975 Patient Information Source of Information: Patient Cognition/Language: Impaired, Other (Comment) (Delayed -TBI) Permission given to speak with patient insurance claim representative/caregiver as indicated: Yes Confirmation of Payer with patient/family: Yes Payer Name: Blaise Moreno [phone], friend, Erin Mora [phone], friend [place]: No Confirmation of Primary Care Physician: Confirmed PCP Name: Venkat Malin Primary Caregiver: Other (Comment) If assistance needed, confirmed caregiver ready, willing and able to care for patient at discharge: Confirmed with: Living Arrangements Current Residence: Number of Floors Number of Entry Steps: Bed/Bath Levels: Facility: [facility] Facility Name: [facility] Plan to Return: Yes Lives with: Other (Comment) Support Systems: Comments (Other) Activities of Daily Living Ambulation: Total Care (Patient is bed bound) Bathing/Dressing: Total Care Elimination/Continence/Toileting: Total Care Feeding: Total Care Who Assists with Activities of Daily Living: [facility] Instrumental Activities of Daily Living Prescription Coverage: [...] expects to be discharged to: Return to [facility] Discharge Planning Actions: Continue to follow, Long Term Facility referral indicated Patient's Choice Rights and [employer] and Collaborative Relationships Disclosed as Indicated for Post-Acute Care: Interdisciplinary Team Engagement: Social Work Referral for: Additional Information: Chart reviewed. [facility]. Blood cultures pending. HX of TBI, Bipolar, Paraplegia. Regular diet. On IV Vancomycin. Met with patient at bedside today. Explained role. Patient informs she is from [facility] and she would like to return there at discharge. CONSTRUCTION PROJECT ADMINISTRATOR tasked to create referral to [facility]. Will need to confirm level of care. DC plan: Return to [facility] Fatuma Palma RN Problem: Knowledge Deficit Goal: [...] if this changes. documented in this encounter [facility] 07-11-2023 Note Formatting of this n ote might be different from the original. Dc to [facility] this evening at 6:00. [facility] to transport. Ambulance form completed. [facility] message sent the [facility] to notify them of patients return. Left message for patients legal Guardian, Utility Lineman G[place]ock to notify him of discharge and the oyster picker time. Report number provided to the bedside nurse. [facility] 07-11-2023 Note Formatting of this n ote might be different from the original. Dc to [facility] this evening at 6:00. [facility] to transport. Ambulance form completed. [facility] message sent the [facility] to notify them of patients return. Left message for patients legal Guardian, Utility Lineman Gresock to notify him of discharge and the oyster picker time. Report number provided to the bedside nurse. [facility] 07-11-2023 Note Formatting of this n ote might be different from the original. Received message from bedside RN; reports Dr. Morse is ready for DC. 2 [facility] aware. CONSTRUCTION PROJECT ADMINISTRATOR tasked to send final MAR, DC summary and final updates to [facility]. [facility] 07-11-2023 Note Formatting of this n ote might be different from the original. Received message from bedside RN; reports Dr. Morse is ready for DC. 2 [facility] aware. CONSTRUCTION PROJECT ADMINISTRATOR tasked to send final MAR, DC summary and final updates to [facility]. [facility] 07-11-2023 Note Discharge Summary Diana Calabrese [...] She is [facility] today. SIGNIFICANT DIAGNOSTIC STUDIES: Labs xrays CONSULTANTS: [...] Complexity: follow up within 7-14 calendar days (85511) [] Severe Complexity: follow up within 7 calendar days (74075) FOLLOW UP TESTING, PENDING RESULTS OR REFERRALS AT TRANSITIONAL CARE VISIT: [] Yes [] No PENDING STUDIES: none DISPOSITION: Skilled Facility FACILITY/HOME CARE AGENCY NAME: [facility] Follow up with Dr Malin at the [facility] INSTRUCTIONS TO MA/SW: Please call patient [...] SIGNED: YOKO MORSE DO 07/11/2023, 8:54 AM [facility] 07-11-2023 Note Formatting of this n ote might be different from the original. Received message from Dr. Morse; states patient is now complaining of abdominal pain. CT abdomen ordered. Will plan for discharge later today. Bedside RN and [address] [place] [address] aware. 1045: TCC section of ERNESTO completed. [facility] 07-11-2023 Note Formatting of this n ote might be different from the original. Received message from Dr. Morse; states patient is now complaining of abdominal pain. CT abdomen ordered. Will plan for discharge later today. Bedside RN and [address] aware. 1045: TCC section of ERNESTO completed. [facility] 07-11-2023 Hospital course Narrative Images from [...] She is returning to [facility] today. SIGNIFICANT DIAGNOSTIC STUDIES: Labs xrays CONSULTANTS: [...] Complexity: follow up within 7-14 calendar days (48818) [] Severe Complexity: follow up within 7 calendar days (09501) FOLLOW UP TESTING, PENDING RESULTS OR REFERRALS AT TRANSITIONAL CARE VISIT: [] Yes [] No PENDING STUDIES: none DISPOSITION: Skilled Facility FACILITY/HOME CARE AGENCY NAME: [facility] Follow up with Dr Malin at the [...] 07/11/2023, 8:54 AM documented in this encounter [facility] 07-11-2023 Note Formatting of this n ote might be different from the original. Noted patient discharge today. Received message from [facility]. Patient is a bed hold and no authorization required to return. Noted patient has Legal Guardian; Utility Lineman Eric Chappell: office, or Cell, . Spoke with Legal Guardian over the phone. Explained role. He is in agreement to return to [facility] when ready. He is aware to anticipate DC today. Facility updated. Will discuss in rounds today. [facility] 07-11-2023 Note Formatting of this n ote might be different from the original. Noted patient discharge today. Received message from [facility]. Patient is a bed hold and no authorization required to return. Noted patient has Legal Guardian; Utility Lineman Eric Chappell: office, or Cell, . Spoke with Legal Guardian over the phone. Explained role. He is in agreement to return to [facility] when ready. He is aware to anticipate DC today. Facility updated. Will discuss in rounds today. [facility] 07-10-2023 Hospital Discharg e suki [...] assistance Toileting Total assistance Feeding Minimal assistance Cripple Chaser Total assistance Med Delivery no Wound Care [...] Discharging to Facility/ Agency Name: Return to [facility] Address: [address] [place] [address] Fax: Dialysis Facility (if applicable) Name: Address: Dialysis Schedule: Phone: Fax: Entry Level Business Analyst/Cathode Builder signature: ICIAN SECTION Prognosis: poor Condition at [...] H&P PHYSICIAN SIGNATURE: documented in this encounter [facility] 07-10-2023 Note [facility] - Infectious Diseases [...] #1 - Assess for effectiveness of treatment [[id number]] Blood, Venous Preliminary result Component Value Blood Culture Blood culture incubation started P 07/09/2023 1237 07/09/2023 1701 Blood culture Site #2 - Assess for effectiveness of treatment [[id number]] Blood, Venous Preliminary result Component Value Blood Culture Blood culture incubation started P 07/08/2023 0655 07/10/2023 0734 Urine culture [[id number]] (Abnormal) Urine, Clean Catch Final result Component Value Urine Culture Normal urogenital alin present 50,000-90,000 CFU/mL Escherichia coli Abnormal 07/07/2023 1852 07/10/2023 0935 Blood culture Site #2 - Suspected Infection [[id number]] (Abnormal) Blood, Venous Final result Component Value Blood Culture Staphylococcus capitis Panic Contamination likely unless additional blood culture sets are found to be positive with the same organism. This is an edited result. Previous organism was Gram-positive cocci on 07/09/2023 at 0049 EST. 07/07/2023 1846 07/10/2023 0935 Blood culture Site #1 - Suspected Infection [[id number]] (Abnormal) Blood, Venous Final result Component Value Blood Culture Staphylococcus warneri Panic Contamination likely unless additional blood culture sets are found to be positive with the same organism. This is an edited (more content not included)... [facility] 07-10-2023 Note Referral placed to Emiliano gramajo [facility] via [facility] per [facility] request. Await review and response regarding ability to accept. [facility] notified. [facility] 07-10-2023 Consult note Associated Order (s): PHARMACY TO DOSE VANCO Vancomycin therapy has been discontinued by Dr Pelayo on 07/10/23. Thank you for the consult. Pharmacy signing off for vancomycin dosing. Mayra Cespedes PharmD Date: 07/10/23 Time: 1:29 PM [facility] 07-10-2023 Consult note Associated Order (s): PHARMACY TO DOSE VANCO Vancomycin therapy has been discontinued by Dr Pelayo on 07/10/23. Thank you for the consult. Pharmacy signing off for vancomycin dosing. 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 year [...] from the original note were not included. [facility] - Infectious Diseases Attending Consult Note Reason for Consult: UTI Bacteremia History of Present Illness: Patient is 47 year old admitted to [facility] because of mentation changes. History from [...] min Stress: No Stress Concern Present (07/08/2023) [employer] [place] [employer] - Occupational Stress Questionnaire Feeling of Stress : Not at all Social Connections: Unknown (07/08/2023) Social Connection and Isolation Panel [NHANES] Frequency of Communication with Friends and Family: Patient refused Frequency of Social Gatherings with Friends and Family: Patient refused Attends Hinduism Services: Never Active Member of Clubs or [...] MD, MACP, FIDSA documented in this encounter [facility] 07-10-2023 Note Formatting of this n ote might be different from the original. Referral placed to Return [facility] via [facility] per [facility] request. Await review and response regarding ability to accept. TCC notified. [facility] 07-10-2023 Note Formatting of this n ote might be different from the original. Referral placed to [facility] via [facility] per TCC request. Await review and response regarding ability to accept. TCC notified. [facility] 07-10-2023 Note Formatting of this n ote might be different from the original. Care Managment Initial Assessment Date: 07/10/2023 Patient Name: Diana Calabrese : 1975 Patient Information Source of Information: Patient Cognition/Language: Impaired, Other (Comment) (Delayed -TBI) Permission given to speak with patient insurance claim representative/caregiver as indicated: Yes Confirmation of Payer with patient/family: Yes Payer Name: Blaise Moreno [phone], friend, Erin Mora [phone], friend : No Confirmation of Primary Care Physician: Confirmed PCP Name: Venkat Malin Primary Caregiver: Other (Comment) If assistance needed, confirmed caregiver ready, willing and able to care for patient at discharge: Confirmed with: Living Arrangements Current Residence: Number of Floors Number of Entry Steps: Bed/Bath Levels: Facility: [facility] Facility Name: [facility] Plan to Return: Yes Lives with: Other (Comment) Support Systems: Comments (Other) Activities of Daily Living Ambulation: Total Care (Patient is bed bound) Bathing/Dressing: Total Care Elimination/Continence/Toileting: Total Care Feeding: Total Care Who Assists with Activities of Daily Living: [facility] Instrumental Activities of Daily Living Prescription Coverage: [...] expects to be discharged to: Return to [facility] Discharge Planning Actions: Continue to follow, Long Term Facility referral indicated Patient's Choice Rights and [employer] and Collaborative Relationships Disclosed as Indicated for Post-Acute Care: Interdisciplinary Team Engagement: Social Work Referral for: Additional Information: Chart reviewed. [facility] Blood cultures pending. HX of TBI, Bipolar, Paraplegia. Regular diet. On IV Vancomycin. Met with patient at bedside today. Explained role. Patient informs she is from [facility] and she would like to return there at discharge. CONSTRUCTION PROJECT ADMINISTRATOR tasked to create referral to [facility]. Will need to confirm level of care. DC plan: Return to [facility] Fatuma Palma RN [facility] 07-10-2023 Note Formatting of this n ote might be different from the original. Care Managment Initial Assessment Date: 07/10/2023 Patient Name: Diana Calabrese : 1975 Patient Information Source of Information: Patient Cognition/Language: Impaired, Other (Comment) (Delayed -TBI) Permission given to speak with patient insurance claim representative/caregiver as indicated: Yes Confirmation of Payer with patient/family: Yes Payer Name: Blaise Moreno [phone], friend, Erin Mora [phone], friend : No Confirmation of Primary Care Physician: Confirmed PCP Name: Venkat Malin Primary Caregiver: Other (Comment) If assistance needed, confirmed caregiver ready, willing and able to care for patient at discharge: Confirmed with: Living Arrangements Current Residence: Number of Floors Number of Entry Steps: Bed/Bath Levels: Facility: [facility] Facility Name: [facility] Plan to Return: Yes Lives with: Other (Comment) Support Systems: Comments (Other) Activities of Daily Living Ambulation: Total Care (Patient is bed bound) Bathing/Dressing: Total Care Elimination/Continence/Toileting: Total Care Feeding: Total Care Who Assists with Activities of Daily Living: [facility] Instrumental Activities of Daily Living Prescription Coverage: [...] expects to be discharged to: Return to [facility] Discharge Planning Actions: Continue to follow, Long Term Facility referral indicated Patient's Choice Rights and [employer] and Collaborative Relationships Disclosed as Indicated for Post-Acute Care: Interdisciplinary Team Engagement: Social Work Referral for: Additional Information: Chart reviewed. [facility]. Blood cultures pending. HX of TBI, Bipolar, Paraplegia. Regular diet. On IV Vancomycin. Met with patient at bedside today. Explained role. Patient informs she is from [facility] and she would like to return there at discharge. CONSTRUCTION PROJECT ADMINISTRATOR tasked to create referral to [facility]. Will need to confirm level of care. DC plan: Return to [facility] Fatuma Palma RN [facility] 07-10-2023 Note Department of Family Medicine [...] - YOKO MORSE, DO 07/10/23 9:12 AM [facility] 07-09-2023 Note Department of Family Medicine [...] - YOKO MORSE, DO 07/09/23 9:30 AM [facility] 07-09-2023 Consult note Formatting of th is note is different from the original. 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 year [...] for the consult. Will continue to follow. [facility] 07-09-2023 Consult note Associated Order (s): IP CONSULT TO INFECTIOUS DISEASES Images from the original note were not included. [facility] - Infectious Diseases Attending Consult Note Reason for Consult: UTI Bacteremia History of Present Illness: Patient is 47 year old admitted to [facility] because of mentation changes. History from [...] min Stress: No Stress Concern Present (07/08/2023) [employer] - Occupational Stress Questionnaire Feeling of Stress : Not at all Social Connections: Unknown (07/08/2023) Social Connection and Isolation Panel [NHANES] Frequency of Communication with Friends and Family: Patient refused Frequency of Social Gatherings with Friends and Family: Patient refused Attends Hinduism Services: Never Active Member of Clubs or [...] accounting for open encounter. Michael Toscano MD, [facility] [employer] Work Phone: 07-09-2023 Plan of care note [...] medications per MAR, provide a restful environment. [facility] 07-08-2023 Note Department of Family Medicine [...] SCHEDULED FOR SURGERY TODAT (11/03/2016) Constipated Dementia ([facility]) Dysarthria Dysphagia Elevated liver enzymes Epilepsy (HCC) [...] min Stress: No Stress Concern Present (07/08/2023) [employer] - Occupational Stress Questionnaire Feeling of Stress : Not at all Social Connections: Unknown (07/08/2023) Social Connection and Isolation Panel [NHANES] Frequency of Communication with Friends and Family: Patient refused Frequency of Social Gatherings with Friends and Family: Patient refused Attends Hinduism Services: Never Active Member of Clubs or [...] 88 Temp 36 (more content not included)... [facility] 07-08-2023 History and physical note Department [...] min Stress: No Stress Concern Present (07/08/2023) [employer] - Occupational Stress Questionnaire Feeling of Stress : Not at all Social Connections: Unknown (07/08/2023) Social Connection and Isolation Panel [NHANES] Frequency of Communication with Friends and Family: Patient refused Frequency of Social Gatherings with Friends and Family: Patient refused Attends Hinduism Services: Never Active Member of Clubs or [...] results YOKO MORSE DO 07/08/23 9:35 AM [facility] 07-08-2023 History and physical note Department [...] min Stress: No Stress Concern Present (07/08/2023) [employer] - Occupational Stress Questionnaire Feeling of Stress : Not at all Social Connections: Unknown (07/08/2023) Social Connection and Isolation Panel [NHANES] Frequency of Communication with Friends and Family: Patient refused Frequency of Social Gatherings with Friends and Family: Patient refused Attends Hinduism Services: Never Active Member of Clubs or [...] 07/08/23 9:35 AM documented in this encounter [facility] 07-08-2023 Plan of care note Problem: Knowledge [...] Recommendations to address these barriers include . [facility] 07-07-2023 Note Formatting of this [...] time. Please reach out if this changes. [employer] Work Phone: 07-07-2023 Note Formatting of this [...] time. Please reach out if this changes. [employer] Work Phone: 07-07-2023 Emergency department Note Bed: 14 Expected date: Expected time: Means of arrival: Comments: Darshan Read RN 07/07/23 [id number] [employer] 07-07-2023 Emergency department Note Emergency Department Encounter [facility] ED Patient: Diana Calabrese : 1975 [...] dictating provider for clarification. Dakotah Walters MD [facility] Dakotah Walters MD 07/07/232049 Dakotah Walters MD 07/07/232131 Arrived via ems [facility] AMS per staff, A/0 x3 per EMS, patient A/0 x3, GCS 15, able to speak in slow clear sentences and respond to questions, providing limited pmhx, placed on monitor, continue with plan of care, patient with call light within reach Bed: 14 Expected date: Expected time: Means of arrival: Comments: Darshan Read RN 07/07/23 1510 documented in this encounter [facility] 07-07-2023 Emergency department Triage note Arrived via ems from [facility] AMS per staff, A/0 x3 per EMS, patient A/0 x3, GCS 15, able to speak in slow clear sentences and respond to questions, providing limited pmhx, placed on monitor, continue with plan of care, patient with call light within reach [facility] 07-07-2023 Physician Emergency department Note Emergency Department Encounter [facility] ED Patient: Diana Calabrese : 1975 [...] for clarification. Dakotah Walters MD [facility] Dakotah Walters MD 07/07/232049 Dakotah Walters MD 07/07/232131 [facility] 05-09-2023 Note General Surgery History and Physical iZ Wright MD, MPH Patient ID: Diana Calabrese [id number] 47 y.o. 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 Malin HPI: Diana Calabrese is a 47 y.o. female who presents with abnormal US of L breast Patient presents today for evaluation of L breast lesion found on exam and screening US. Patient comes from [facility] and is joined by her transporter. Patient [...] anywhere is her chart both paper from [facility] or from EMR. Patient states that she [...] throat and trouble (more content not included)... [facility] 05-09-2023 History of Presen t illness Narrative Images from the original note were not included. General Surgery History and Physical Zi Wright MD, MPH Patient ID: Diana Calabrese [id number] 47 y.o. 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 Malin HPI: Diana Calabrese is a 47 y.o. female who presents with abnormal US of L breast Patient presents today for evaluation of L breast lesion found on exam and screening US. Patient comes from [facility] and is joined by her transporter. Patient [...] anywhere is her chart both paper from [facility] or from EMR. Patient states that she [...] kg/m Physical Exam Exam conducted with a airframe and power plant mechanic present. Constitutional: General: She is not in [...] of Surgery AG documented in this encounter [facility] [employer] documented in this encounter [facility] Work Phone: [...] FoundDocuments on File Type Date Recorded Patient Paper Coating Supervisor Expl anation ACP-Advance Directive ACP-Power of Utility Lineman ACP-Power of Utility Lineman 10/02/2020 3:31 PM PA IN [facility]- POA Latest Code Status on File Code Status Date Activated Date Inactivated Comments Full Code 11/03/2016 4:21 PM 11/04/2016 7:24 PM Full Code 11/03/2016 10:26 AM 11/03/2016 4:10 PM Documents on File Type Date Recorded Patient Paper Coating Supervisor Expl anation Advance Directives and Livin g Will 06/08/2023 2:26 PM Latest Code Status on File Code Status Date Activated Date Inactivated Comments Full Code 07/07/2023 10:13 PM 07/11/2023 9:26 PM Additional Source Comments INFORMATION SOURCE (unrecogn ized section and content) DATE CREATED AUTHOR AUTHOR'S ORGANIZ ATION 01/23/2018 [employer] [facility] DATE CREATED AUTHOR AUTHOR'S ORGANIZ ATION [facility] [place] DATE CREATED AUTHOR AUTHOR'S ORGANIZ ATION 08/03/2021 [facility] DATE CREATED AUTHOR AUTHOR'S ORGANIZ ATION [facility] DATE CREATED AUTHOR AUTHOR'S ORGANIZ ATION 07/15/2023 [facility] Reason for Visit (unrecogniz ed section and content) Reason Comments Abnormal Breast US SPOOL CLEANER Abnormal Breast U S referral from Dr. Malin Reason Comments Altered Mental Status Per SNF, A/0 x3 pe r EMS Specialty Diagnoses / Procedures Referred By Contac t Referred To Contact Diagnoses Urinary tract infection Procedures . Yoko Morse M, DO [address] [place] [address] [facility] [address] [place] [address] Referral ID Status Reason Start Date Expiration Date Visits Re quested Visits Authorized [id number] 1 1 Scheduled Active and Recently Administ [...] Care Teams (unrecognized sec tion and content) Housekeeping Room Attendant Relationship Specialty Start Date End Date Venkat Malin [address] [facility] [address] [place] [phone] PCP - General Internal Medicine 06/03/22 Housekeeping Room Attendant Relationship Specialty Start Date End Date Venkat Malin [address] [facility] [address] [place] [phone] PCP - General Internal Medicine 06/03/22 Housekeeping Room Attendant Relationship Specialty Start Date End Date Venkat Malin [address] [facility] [address] [place] [phone] PCP - General Internal Medicine 06/03/22 FOR [...] BE BASED ON THE PRIMARY CLINICAL RECORDS. [facility] [employer] [facility]. provides no warranty or guarantee of the accuracy or completeness of information in this document.
[2023-09-20 08:47] LABS: Hematocrit 44.2 % (37-47); Mean Corp Hgb Conc 31.7 g/dL (32-36); Mean Corpuscular Hgb 27.9 pg (27.0-32.0); Mean Platelet Vol. 11.6 fl (6.2-12.0); Platelet Count 276 K/mm3 (150-450); RBC Distribution Width CV 14.5 % (11.6-14.6); RBC Distribution Width SD 46.5 fl (35.1-43.9); Red Blood Count 5.02 M/mm3 (4.2-5.4); White Blood Count 7.2 K/mm3 (4.4-11.0)
[2023-09-20 09:39] LABS: ALB/GLOB Ratio 0.5 RATIO (0.9-2.4); AST(SGOT) 11 U/L (15-37); Alanine Aminotransfer ALT/SGPT 14 U/L (13-56); Albumin, Serum 2.6 g/dL (3.2-5.0); Alkaline Phosphatase 117 U/L (45-117); Anion Gap 6 (5-15); BUN 15 mg/dL (7-18); BUN/Creat Ratio 17.5 RATIO (10-20); Calcium,Total 9.3 mg/dL (8.5-10.1); Chloride 111 mmol/L (98-107); Creatinine, Serum 0.86 mg/dL (0.55-1.02); EST Glomerular Filtration Rate 75 mL/min (>60); Est Glom Filt Rate - Afr Amer 91 mL/min (>60); Globulin 5.1 g/dL (2.2-4.2); Glucose 105 mg/dL (74-106); Potassium 3.4 mmol/L (3.5-5.1); Protein, Total 7.7 g/dL (6.4-8.2); Sodium Level 140 mmol/L (136-145)
== END | disposition home or self-care (01) ==
LOC: OLS.SANC 05:00
PROVIDERS: Visit Provider Internal Medicine
DX: D64.9 Anemia, unspecified (principal); I10 Essential (primary) hypertension; F03.90 Unspecified dementia, unspecified severity, without behavioral disturbance, psychotic disturbance, mood disturbance, and anxiety
CPT/HCPCS: 36415; 80053; 85027

== ENCOUNTER → 2023-09-28 | Outpatient (REF) | payer MEDICAID, SELFPAY ==
[2023-09-28 09:41] LABS: Anion Gap 5 (5-15); BUN 18 mg/dL (7-18); BUN/Creat Ratio 21.7 RATIO (10-20); Calcium,Total 9.5 mg/dL (8.5-10.1); Chloride 110 mmol/L (98-107); Creatinine, Serum 0.83 mg/dL (0.55-1.02); EST Glomerular Filtration Rate 78 mL/min (>60); Est Glom Filt Rate - Afr Amer 95 mL/min (>60); Glucose 90 mg/dL (74-106); Potassium 3.6 mmol/L (3.5-5.1); Sodium Level 140 mmol/L (136-145)
== END | disposition home or self-care (01) ==
LOC: OLS.SANC 06:50
PROVIDERS: Visit Provider Internal Medicine
DX: D64.9 Anemia, unspecified (principal); I10 Essential (primary) hypertension
CPT/HCPCS: 36415; 80048

== ENCOUNTER → 2023-10-09 | Outpatient (REF) | payer MEDICAID, SELFPAY ==
[2023-10-09 10:11] LABS: Anion Gap 7 (5-15); BUN 19 mg/dL (7-18); BUN/Creat Ratio 25.7 RATIO (10-20); Calcium,Total 9.1 mg/dL (8.5-10.1); Chloride 108 mmol/L (98-107); Creatinine, Serum 0.74 mg/dL (0.55-1.02); EST Glomerular Filtration Rate 89 mL/min (>60); Est Glom Filt Rate - Afr Amer 108 mL/min (>60); Glucose 77 mg/dL (74-106); Potassium 3.7 mmol/L (3.5-5.1); Sodium Level 139 mmol/L (136-145)
== END | disposition home or self-care (01) ==
LOC: OLS.SANC 05:00
PROVIDERS: Visit Provider Internal Medicine
DX: D64.9 Anemia, unspecified (principal); I10 Essential (primary) hypertension
CPT/HCPCS: 36415; 80048

== ENCOUNTER → 2023-10-18 | Outpatient (REF) | payer MEDICAID, SELFPAY ==
[2023-10-18 07:59] LABS: Hematocrit 41.3 % (37-47); Hemoglobin 13.3 g/dL (12.0-15.0); Mean Corp Hgb Conc 32.2 g/dL (32-36); Mean Corpuscular Hgb 28.1 pg (27.0-32.0); Mean Corpuscular Volume 87.1 fL (81-99); Mean Platelet Vol. 12.1 fl (6.2-12.0); Platelet Count 224 K/mm3 (150-450); RBC Distribution Width CV 14.9 % (11.6-14.6); RBC Distribution Width SD 48.1 fl (35.1-43.9); Red Blood Count 4.74 M/mm3 (4.2-5.4)
[2023-10-18 08:15] LABS: Anion Gap 5 (5-15); BUN 16 mg/dL (7-18); BUN/Creat Ratio 24.5 RATIO (10-20); Calcium,Total 9.1 mg/dL (8.5-10.1); Chloride 111 mmol/L (98-107); Creatinine, Serum 0.65 mg/dL (0.55-1.02); EST Glomerular Filtration Rate 103 mL/min (>60); Est Glom Filt Rate - Afr Amer 124 mL/min (>60); Glucose 92 mg/dL (74-106); Potassium 3.6 mmol/L (3.5-5.1); Sodium Level 139 mmol/L (136-145)
== END | disposition home or self-care (01) ==
LOC: OLS.SANC 05:00
PROVIDERS: Visit Provider Internal Medicine
DX: D64.9 Anemia, unspecified (principal); Z79.899 Other long term (current) drug therapy
CPT/HCPCS: 36415; 80048; 85027

== ENCOUNTER → 2023-10-30 | Outpatient (REF) | payer MEDICAID, SELFPAY ==
[2023-10-30 09:01] LABS: Mucous, Urine 0 SEEN /hpf (<or=2+)
[2023-10-30 09:08] LABS: Color, Urine Yellow (Yellow); Glucose, Dipstick Normal (Normal); Ketone-Dipstick 5 mg/dl (Negative); Leukocyte Esterase-Dipstick 100 /ul (Negative); Nitrite-Dipstick Positive (Negative); Occult Blood-Urine 250 /ul (Negative); Protein-Dipstick 30 mg/dl (Negative); Urine Bilirubin Dipstick Negative (Negative); Urine Clarity Sl. Cloudy (Clear); Urine Urobilinogen 1 mg/dl (Normal)
[2023-10-30 09:17] LABS: Bacteria 3+ /hpf (None Seen)
[2023-10-30 09:18] LABS: Red Blood Cells-Urine 25-50 SEEN /hpf (0-5); Squamous Epithelial Cells - UA 0-5 SEEN /hpf (5-10); White Blood Cells 10-25 SEEN /hpf (0-5)
== END | disposition home or self-care (01) ==
LOC: OLS.SANC 05:00
PROVIDERS: Visit Provider Internal Medicine
DX: N39.0 Urinary tract infection, site not specified (principal)
CPT/HCPCS: 81001; 87077; 87086; 87088; 87186

== ENCOUNTER → 2023-11-21 | Outpatient (REF) | payer MEDICAID, SELFPAY ==
[2023-11-21 08:28] LABS: Hematocrit 40.8 % (37-47); Hemoglobin 12.8 g/dL (12.0-15.0); Mean Corp Hgb Conc 31.4 g/dL (32-36); Mean Corpuscular Hgb 27.8 pg (27.0-32.0); Mean Corpuscular Volume 88.7 fL (81-99); Mean Platelet Vol. 11.4 fl (6.2-12.0); Platelet Count 332 K/mm3 (150-450); RBC Distribution Width CV 15.4 % (11.6-14.6); RBC Distribution Width SD 50.4 fl (35.1-43.9); White Blood Count 8.4 K/mm3 (4.4-11.0)
[2023-11-21 08:29] LABS: ALB/GLOB Ratio 0.6 RATIO (0.9-2.4); AST(SGOT) 8 U/L (15-37); Alanine Aminotransfer ALT/SGPT 8 U/L (13-56); Albumin, Serum 2.6 g/dL (3.2-5.0); Alkaline Phosphatase 102 U/L (45-117); Anion Gap 4 (5-15); BUN 16 mg/dL (7-18); BUN/Creat Ratio 20.8 RATIO (10-20); Calcium,Total 8.7 mg/dL (8.5-10.1); Chloride 110 mmol/L (98-107); Creatinine, Serum 0.77 mg/dL (0.55-1.02); EST Glomerular Filtration Rate 85 mL/min (>60); Est Glom Filt Rate - Afr Amer 103 mL/min (>60); Globulin 4.7 g/dL (2.2-4.2); Glucose 99 mg/dL (74-106); Potassium 3.4 mmol/L (3.5-5.1); Protein, Total 7.3 g/dL (6.4-8.2); Sodium Level 139 mmol/L (136-145)
== END | disposition home or self-care (01) ==
LOC: OLS.SANC 05:00
PROVIDERS: Visit Provider Internal Medicine
DX: D64.9 Anemia, unspecified (principal); I10 Essential (primary) hypertension
CPT/HCPCS: 36415; 80053; 85027

== ENCOUNTER → 2023-11-28 | Outpatient (REF) | payer MEDICAID, SELFPAY ==
[2023-11-28 08:29] LABS: Anion Gap 4 (5-15); BUN 20 mg/dL (7-18); BUN/Creat Ratio 28.2 RATIO (10-20); Calcium,Total 8.9 mg/dL (8.5-10.1); Chloride 110 mmol/L (98-107); Creatinine, Serum 0.71 mg/dL (0.55-1.02); EST Glomerular Filtration Rate 93 mL/min (>60); Est Glom Filt Rate - Afr Amer 113 mL/min (>60); Glucose 91 mg/dL (74-106); Potassium 3.4 mmol/L (3.5-5.1); Sodium Level 140 mmol/L (136-145)
== END | disposition home or self-care (01) ==
LOC: OLS.SANC 05:00
PROVIDERS: Visit Provider Internal Medicine
DX: D64.9 Anemia, unspecified (principal); I10 Essential (primary) hypertension
CPT/HCPCS: 36415; 80048

== ENCOUNTER → 2023-11-29 | Outpatient (REF) | payer MEDICAID, SELFPAY ==
[2023-11-29 07:34] LABS: Hematocrit 44.3 % (37-47); Hemoglobin 13.6 g/dL (12.0-15.0); Mean Corp Hgb Conc 30.7 g/dL (32-36); Mean Corpuscular Hgb 27.3 pg (27.0-32.0); Mean Corpuscular Volume 88.8 fL (81-99); Mean Platelet Vol. 11.8 fl (6.2-12.0); Platelet Count 189 K/mm3 (150-450); RBC Distribution Width CV 15.3 % (11.6-14.6); RBC Distribution Width SD 49.2 fl (35.1-43.9); Red Blood Count 4.99 M/mm3 (4.2-5.4); White Blood Count 6.6 K/mm3 (4.4-11.0)
[2023-11-29 07:51] LABS: ALB/GLOB Ratio 0.6 RATIO (0.9-2.4); AST(SGOT) 12 U/L (15-37); Alanine Aminotransfer ALT/SGPT 8 U/L (13-56); Albumin, Serum 2.7 g/dL (3.2-5.0); Alkaline Phosphatase 108 U/L (45-117); Anion Gap 3 (5-15); BUN 16 mg/dL (7-18); BUN/Creat Ratio 25.8 RATIO (10-20); Calcium,Total 8.7 mg/dL (8.5-10.1); Chloride 110 mmol/L (98-107); Creatinine, Serum 0.62 mg/dL (0.55-1.02); EST Glomerular Filtration Rate 109 mL/min (>60); Est Glom Filt Rate - Afr Amer 132 mL/min (>60); Globulin 4.3 g/dL (2.2-4.2); Glucose 88 mg/dL (74-106); Potassium 4.2 mmol/L (3.5-5.1); Sodium Level 138 mmol/L (136-145)
[2023-12-04 07:07] LABS: Trileptal-Oxcarbazepine 12 ug/mL (10-35)
== END | disposition home or self-care (01) ==
LOC: OLS.SANC 05:00
PROVIDERS: Visit Provider Internal Medicine
DX: G40.909 Epilepsy, unspecified, not intractable, without status epilepticus (principal)
CPT/HCPCS: 36415; 80053; 82542; 85027

== ENCOUNTER → 2023-12-05 | Outpatient (REF) | payer MEDICAID, SELFPAY ==
[2023-12-05 09:06] LABS: Anion Gap 4 (5-15); BUN 18 mg/dL (7-18); BUN/Creat Ratio 26.1 RATIO (10-20); Calcium,Total 8.9 mg/dL (8.5-10.1); Chloride 111 mmol/L (98-107); Creatinine, Serum 0.69 mg/dL (0.55-1.02); EST Glomerular Filtration Rate 97 mL/min (>60); Est Glom Filt Rate - Afr Amer 117 mL/min (>60); Glucose 86 mg/dL (74-106); Potassium 3.6 mmol/L (3.5-5.1); Sodium Level 140 mmol/L (136-145)
== END | disposition home or self-care (01) ==
LOC: OLS.SANC 05:00
PROVIDERS: Visit Provider Internal Medicine
DX: D64.9 Anemia, unspecified (principal); I10 Essential (primary) hypertension
CPT/HCPCS: 36415; 80048

== ENCOUNTER → 2023-12-20 | Outpatient (REF) | payer MEDICAID, SELFPAY ==
[2023-12-20 08:03] LABS: Hematocrit 36.9 % (37-47); Hemoglobin 11.5 g/dL (12.0-15.0); Mean Corp Hgb Conc 31.2 g/dL (32-36); Mean Corpuscular Hgb 27.8 pg (27.0-32.0); Mean Corpuscular Volume 89.1 fL (81-99); Mean Platelet Vol. 11.1 fl (6.2-12.0); Platelet Count 367 K/mm3 (150-450); RBC Distribution Width CV 14.8 % (11.6-14.6); RBC Distribution Width SD 48.2 fl (35.1-43.9); Red Blood Count 4.14 M/mm3 (4.2-5.4)
[2023-12-20 08:26] LABS: Anion Gap 8 (5-15); BUN 15 mg/dL (7-18); BUN/Creat Ratio 24.4 RATIO (10-20); Calcium,Total 8.6 mg/dL (8.5-10.1); Chloride 108 mmol/L (98-107); Creatinine, Serum 0.62 mg/dL (0.55-1.02); EST Glomerular Filtration Rate 110 mL/min (>60); Est Glom Filt Rate - Afr Amer 133 mL/min (>60); Glucose 94 mg/dL (74-106); Potassium 3.2 mmol/L (3.5-5.1); Sodium Level 137 mmol/L (136-145)
== END | disposition home or self-care (01) ==
LOC: OLS.SANC 05:00
PROVIDERS: Visit Provider Internal Medicine
DX: I10 Essential (primary) hypertension (principal)
CPT/HCPCS: 36415; 80048; 85027

== ENCOUNTER → 2023-12-27 | Outpatient (REF) | payer MEDICAID, SELFPAY ==
[2023-12-27 08:09] LABS: Anion Gap 7 (5-15); BUN 16 mg/dL (7-18); BUN/Creat Ratio 24.5 RATIO (10-20); Chloride 107 mmol/L (98-107); Creatinine, Serum 0.65 mg/dL (0.55-1.02); EST Glomerular Filtration Rate 103 mL/min (>60); Est Glom Filt Rate - Afr Amer 124 mL/min (>60); Glucose 89 mg/dL (74-106); Potassium 4.1 mmol/L (3.5-5.1); Sodium Level 135 mmol/L (136-145)
== END | disposition home or self-care (01) ==
LOC: OLS.SANC 05:00
PROVIDERS: Visit Provider Internal Medicine
DX: D64.9 Anemia, unspecified (principal); I10 Essential (primary) hypertension
CPT/HCPCS: 36415; 80048

== ENCOUNTER → 2024-01-12 | Outpatient (REF) | payer MEDICAID, SELFPAY ==
[2024-01-12 08:40] LABS: Mucous, Urine 0 SEEN /hpf (<or=2+); Red Blood Cells-Urine 0 SEEN /hpf (0-5); Squamous Epithelial Cells - UA 0 SEEN /hpf (5-10)
[2024-01-12 08:50] LABS: Color, Urine Yellow (Yellow); Glucose, Dipstick Normal (Normal); Ketone-Dipstick Negative (Negative); Leukocyte Esterase-Dipstick Negative /ul (Negative); Nitrite-Dipstick Positive (Negative); Occult Blood-Urine 10 /ul (Negative); Protein-Dipstick 15 mg/dl (Negative); Specific Gravity, Urine 1.015 (1.002-1.030); Urine Bilirubin Dipstick Negative (Negative); Urine Clarity Clear (Clear); Urine Urobilinogen 1 mg/dl (Normal)
[2024-01-12 09:11] LABS: White Blood Cells 0-5 SEEN /hpf (0-5)
[2024-01-12 09:12] LABS: Bacteria 4+ /hpf (None Seen)
== END | disposition home or self-care (01) ==
LOC: OLS.SANC 05:00
PROVIDERS: Visit Provider Internal Medicine
DX: R39.89 Other symptoms and signs involving the genitourinary system (principal); F98.9 Unspecified behavioral and emotional disorders with onset usually occurring in childhood and adolescence
CPT/HCPCS: 81001; 87077; 87086; 87088; 87186

== ENCOUNTER → 2024-01-29 | Outpatient (REF) | payer MEDICAID, SELFPAY ==
[2024-01-29 08:20] LABS: Hematocrit 42.3 % (37-47); Hemoglobin 12.8 g/dL (12.0-15.0); Mean Corp Hgb Conc 30.3 g/dL (32-36); Mean Corpuscular Hgb 27.6 pg (27.0-32.0); Mean Corpuscular Volume 91.2 fL (81-99); Mean Platelet Vol. 11.2 fl (6.2-12.0); Platelet Count 344 K/mm3 (150-450); RBC Distribution Width CV 15.2 % (11.6-14.6); RBC Distribution Width SD 50.7 fl (35.1-43.9); Red Blood Count 4.64 M/mm3 (4.2-5.4); White Blood Count 5.1 K/mm3 (4.4-11.0)
[2024-01-29 08:29] LABS: ALB/GLOB Ratio 0.6 RATIO (0.9-2.4); AST(SGOT) 11 U/L (15-37); Alanine Aminotransfer ALT/SGPT 13 U/L (13-56); Albumin, Serum 2.8 g/dL (3.2-5.0); Alkaline Phosphatase 127 U/L (45-117); Anion Gap 7 (5-15); BUN 14 mg/dL (7-18); BUN/Creat Ratio 26.6 RATIO (10-20); Calcium,Total 8.8 mg/dL (8.5-10.1); Chloride 107 mmol/L (98-107); Creatinine, Serum 0.53 mg/dL (0.55-1.02); EST Glomerular Filtration Rate 132 mL/min (>60); Est Glom Filt Rate - Afr Amer 160 mL/min (>60); Globulin 4.5 g/dL (2.2-4.2); Glucose 70 mg/dL (74-106); Potassium 3.7 mmol/L (3.5-5.1); Protein, Total 7.3 g/dL (6.4-8.2); Sodium Level 138 mmol/L (136-145)
== END | disposition home or self-care (01) ==
LOC: OLS.SANC 05:00
PROVIDERS: Visit Provider Internal Medicine
DX: D64.9 Anemia, unspecified (principal); I10 Essential (primary) hypertension
CPT/HCPCS: 36415; 80053; 85027

== ENCOUNTER → 2024-02-20 | Outpatient (REF) | payer MEDICAID, SELFPAY ==
[2024-02-20 09:51] LABS: Hematocrit 46.1 % (37-47); Hemoglobin 13.9 g/dL (12.0-15.0); Mean Corp Hgb Conc 30.2 g/dL (32-36); Mean Corpuscular Volume 89.5 fL (81-99); Mean Platelet Vol. 11.4 fl (6.2-12.0); Platelet Count 412 K/mm3 (150-450); RBC Distribution Width SD 49.2 fl (35.1-43.9); Red Blood Count 5.15 M/mm3 (4.2-5.4); White Blood Count 10.4 K/mm3 (4.4-11.0)
[2024-02-20 10:01] LABS: Anion Gap 5 (5-15); BUN 17 mg/dL (7-18); BUN/Creat Ratio 23.8 RATIO (10-20); Chloride 112 mmol/L (98-107); Creatinine, Serum 0.71 mg/dL (0.55-1.02); EST Glomerular Filtration Rate 93 mL/min (>60); Est Glom Filt Rate - Afr Amer 112 mL/min (>60); Glucose 86 mg/dL (74-106); Potassium 3.7 mmol/L (3.5-5.1); Sodium Level 141 mmol/L (136-145)
== END | disposition home or self-care (01) ==
LOC: OLS.SANC 05:00
PROVIDERS: Referring Provider Internal Medicine; Visit Provider Internal Medicine
DX: D64.9 Anemia, unspecified (principal); I10 Essential (primary) hypertension
CPT/HCPCS: 36415; 80048; 85027

== ENCOUNTER → 2024-03-11 | Outpatient (REF) | payer MEDICAID, SELFPAY ==
[2024-03-11 09:23] LABS: Thyroid Stim Hormone (TSH) 1.37 uIU/mL (0.358-3.74)
== END | disposition home or self-care (01) ==
LOC: OLS.SANC 05:00
PROVIDERS: Visit Provider Internal Medicine
DX: E03.9 Hypothyroidism, unspecified (principal)
CPT/HCPCS: 36415; 84443

== ENCOUNTER → 2024-03-27 | Outpatient (REF) | payer MEDICAID, SELFPAY ==
[2024-03-27 09:18] LABS: Hematocrit 36.7 % (37-47); Hemoglobin 11.2 g/dL (12.0-15.0); Mean Corp Hgb Conc 30.5 g/dL (32-36); Mean Corpuscular Volume 88.4 fL (81-99); Mean Platelet Vol. 11.2 fl (6.2-12.0); Platelet Count 370 K/mm3 (150-450); RBC Distribution Width CV 15.5 % (11.6-14.6); RBC Distribution Width SD 50.2 fl (35.1-43.9); Red Blood Count 4.15 M/mm3 (4.2-5.4); White Blood Count 8.8 K/mm3 (4.4-11.0)
[2024-03-27 09:31] LABS: Anion Gap 4 (5-15); BUN 22 mg/dL (7-18); BUN/Creat Ratio 27.7 RATIO (10-20); Calcium,Total 8.9 mg/dL (8.5-10.1); Chloride 110 mmol/L (98-107); Creatinine, Serum 0.79 mg/dL (0.55-1.02); EST Glomerular Filtration Rate 82 mL/min (>60); Est Glom Filt Rate - Afr Amer 99 mL/min (>60); Glucose 91 mg/dL (74-106); Potassium 3.5 mmol/L (3.5-5.1); Sodium Level 139 mmol/L (136-145)
== END | disposition home or self-care (01) ==
LOC: OLS.SANC 05:00
PROVIDERS: Visit Provider Internal Medicine
DX: D64.9 Anemia, unspecified (principal); I10 Essential (primary) hypertension; Z87.820 Personal history of traumatic brain injury
CPT/HCPCS: 36415; 80048; 85027

== ENCOUNTER → 2024-04-26 | Outpatient (REF) | payer MEDICAID, SELFPAY ==
[2024-04-26 09:23] LABS: Hematocrit 34.6 % (37-47); Hemoglobin 10.4 g/dL (12.0-15.0); Mean Corp Hgb Conc 30.1 g/dL (32-36); Mean Corpuscular Hgb 26.9 pg (27.0-32.0); Mean Corpuscular Volume 89.4 fL (81-99); Mean Platelet Vol. 11.6 fl (6.2-12.0); Platelet Count 373 K/mm3 (150-450); RBC Distribution Width CV 15.5 % (11.6-14.6); Red Blood Count 3.87 M/mm3 (4.2-5.4); White Blood Count 7.9 K/mm3 (4.4-11.0)
[2024-04-26 09:30] LABS: Anion Gap 3 (5-15); BUN 19 mg/dL (7-18); BUN/Creat Ratio 24.6 RATIO (10-20); Calcium,Total 8.6 mg/dL (8.5-10.1); Chloride 108 mmol/L (98-107); Creatinine, Serum 0.77 mg/dL (0.55-1.02); EST Glomerular Filtration Rate 85 mL/min (>60); Est Glom Filt Rate - Afr Amer 103 mL/min (>60); Glucose 105 mg/dL (74-106); Potassium 3.5 mmol/L (3.5-5.1); Sodium Level 138 mmol/L (136-145)
== END | disposition home or self-care (01) ==
LOC: OLS.SANC 05:00
PROVIDERS: Visit Provider Internal Medicine
DX: D64.9 Anemia, unspecified (principal); I10 Essential (primary) hypertension; R33.9 Retention of urine, unspecified
CPT/HCPCS: 36415; 80048; 85027

== ENCOUNTER → 2024-05-17 | Outpatient (REF) | payer MEDICAID, SELFPAY ==
[2024-05-17 07:47] LABS: Mucous, Urine 0 SEEN /hpf (<or=2+); Red Blood Cells-Urine 0 SEEN /hpf (0-5); Squamous Epithelial Cells - UA 0 SEEN /hpf (5-10)
[2024-05-17 07:58] LABS: Color, Urine Yellow (Yellow); Glucose, Dipstick Normal (Normal); Ketone-Dipstick Negative (Negative); Leukocyte Esterase-Dipstick 100 /ul (Negative); Nitrite-Dipstick Positive (Negative); Occult Blood-Urine 150 /ul (Negative); Protein-Dipstick 30 mg/dl (Negative); Specific Gravity, Urine 1.015 (1.002-1.030); Urine Bilirubin Dipstick Negative (Negative); Urine Clarity Sl. Cloudy (Clear); Urine Urobilinogen Normal (Normal)
[2024-05-17 08:11] LABS: Bacteria 2+ /hpf (None Seen); Calcium Oxalate Crystals Ur 2+ /hpf (<or=2+); White Blood Cells 0-5 SEEN /hpf (0-5)
== END | disposition home or self-care (01) ==
LOC: OLS.SANC 02:00
PROVIDERS: Visit Provider Internal Medicine
DX: R39.9 Unspecified symptoms and signs involving the genitourinary system (principal)
CPT/HCPCS: 81001; 87077; 87086; 87088; 87186

== ENCOUNTER → 2024-05-24 | Outpatient (REF) | payer MEDICAID, SELFPAY ==
[2024-05-24 10:07] LABS: Hematocrit 34.3 % (37-47); Hemoglobin 10.4 g/dL (12.0-15.0); Mean Corp Hgb Conc 30.3 g/dL (32-36); Mean Corpuscular Hgb 27.2 pg (27.0-32.0); Mean Corpuscular Volume 89.6 fL (81-99); Mean Platelet Vol. 11.3 fl (6.2-12.0); Platelet Count 369 K/mm3 (150-450); RBC Distribution Width CV 15.5 % (11.6-14.6); RBC Distribution Width SD 50.7 fl (35.1-43.9); Red Blood Count 3.83 M/mm3 (4.2-5.4); White Blood Count 6.1 K/mm3 (4.4-11.0)
[2024-05-24 10:22] LABS: Vitamin B12 434 pg/mL (211-911)
[2024-05-24 11:01] LABS: Anion Gap 5 (5-15); BUN 17 mg/dL (7-18); BUN/Creat Ratio 19.4 RATIO (10-20); Calcium,Total 8.6 mg/dL (8.5-10.1); Chloride 112 mmol/L (98-107); Creatinine, Serum 0.88 mg/dL (0.55-1.02); EST Glomerular Filtration Rate 73 mL/min (>60); Est Glom Filt Rate - Afr Amer 88 mL/min (>60); Glucose 83 mg/dL (74-106); Iron 48 ug/dL (50-170); Iron Binding Capacity,Total 297 ug/dL (250-450); PERCENT IRON SATURATION 16.2 % (15.0-55.0); Potassium 3.9 mmol/L (3.5-5.1); Sodium Level 139 mmol/L (136-145)
== END | disposition home or self-care (01) ==
LOC: OLS.SANC 05:00
PROVIDERS: Visit Provider Internal Medicine
DX: D64.9 Anemia, unspecified (principal); I10 Essential (primary) hypertension; Z87.820 Personal history of traumatic brain injury
CPT/HCPCS: 36415; 80048; 82607; 82746; 83540; 83550; 85027

== ENCOUNTER → 2024-06-03 | Outpatient (REF) | payer MEDICAID, SELFPAY ==
[2024-06-03 08:53] LABS: Hematocrit 43.9 % (37-47); Hemoglobin 13.4 g/dL (12.0-15.0); Mean Corp Hgb Conc 30.5 g/dL (32-36); Mean Corpuscular Hgb 27.2 pg (27.0-32.0); Mean Corpuscular Volume 89.2 fL (81-99); Mean Platelet Vol. 11.3 fl (6.2-12.0); Platelet Count 324 K/mm3 (150-450); RBC Distribution Width CV 15.6 % (11.6-14.6); RBC Distribution Width SD 50.7 fl (35.1-43.9); Red Blood Count 4.92 M/mm3 (4.2-5.4); White Blood Count 5.2 K/mm3 (4.4-11.0)
[2024-06-03 09:08] LABS: ALB/GLOB Ratio 0.5 RATIO (0.9-2.4); AST(SGOT) 20 U/L (15-37); Alanine Aminotransfer ALT/SGPT 18 U/L (13-56); Albumin, Serum 2.8 g/dL (3.2-5.0); Alkaline Phosphatase 113 U/L (45-117); Anion Gap 6 (5-15); BUN 15 mg/dL (7-18); Chloride 111 mmol/L (98-107); Creatinine, Serum 0.79 mg/dL (0.55-1.02); EST Glomerular Filtration Rate 82 mL/min (>60); Est Glom Filt Rate - Afr Amer 99 mL/min (>60); Globulin 5.3 g/dL (2.2-4.2); Glucose 78 mg/dL (74-106); Protein, Total 8.1 g/dL (6.4-8.2); Sodium Level 139 mmol/L (136-145)
== END | disposition home or self-care (01) ==
LOC: OLS.SANC 05:00
PROVIDERS: Visit Provider Internal Medicine
DX: D64.9 Anemia, unspecified (principal); I10 Essential (primary) hypertension; E78.00 Pure hypercholesterolemia, unspecified; E55.9 Vitamin D deficiency, unspecified
CPT/HCPCS: 36415; 80053; 85027

== ENCOUNTER → 2024-06-05 | Outpatient (REF) | payer MEDICAID, SELFPAY | END | disposition home or self-care (01) | LOC: OLS.SANC 05:00 | PROVIDERS: Visit Provider Internal Medicine | DX: D64.9 Anemia, unspecified (principal); Z79.899 Other long term (current) drug therapy | CPT/HCPCS: 36415 ==

== ENCOUNTER → 2024-06-24 05:00 | Outpatient (REF) | payer MEDICAID, SELFPAY ==
[2024-06-24 08:50] LABS: Hematocrit 38.9 % (37-47); Hemoglobin 11.7 g/dL (12.0-15.0); Mean Corp Hgb Conc 30.1 g/dL (32-36); Mean Corpuscular Hgb 27.1 pg (27.0-32.0); Mean Platelet Vol. 11.4 fl (6.2-12.0); Platelet Count 306 K/mm3 (150-450); RBC Distribution Width SD 50.2 fl (35.1-43.9); Red Blood Count 4.32 M/mm3 (4.2-5.4); White Blood Count 7.3 K/mm3 (4.4-11.0)
[2024-06-24 09:18] LABS: ALB/GLOB Ratio 0.6 RATIO (0.9-2.4); AST(SGOT) 14 U/L (15-37); Alanine Aminotransfer ALT/SGPT 13 U/L (13-56); Albumin, Serum 2.7 g/dL (3.2-5.0); Alkaline Phosphatase 115 U/L (45-117); Anion Gap 4 (5-15); BUN 20 mg/dL (7-18); BUN/Creat Ratio 27.9 RATIO (10-20); Calcium,Total 8.8 mg/dL (8.5-10.1); Chloride 113 mmol/L (98-107); Creatinine, Serum 0.72 mg/dL (0.55-1.02); EST Glomerular Filtration Rate 92 mL/min (>60); Est Glom Filt Rate - Afr Amer 111 mL/min (>60); Globulin 4.8 g/dL (2.2-4.2); Glucose 87 mg/dL (74-106); Potassium 3.5 mmol/L (3.5-5.1); Protein, Total 7.5 g/dL (6.4-8.2); Sodium Level 142 mmol/L (136-145); Total Bilirubin < 0.10 mg/dL (0.20-1.00)
== END ==
LOC: OLS.SANC 05:00
PROVIDERS: Visit Provider Internal Medicine
DX: D64.9 Anemia, unspecified (principal); F03.90 Unspecified dementia, unspecified severity, without behavioral disturbance, psychotic disturbance, mood disturbance, and anxiety; Z79.899 Other long term (current) drug therapy
CPT/HCPCS: 36415; 80053; 85027

== ENCOUNTER → 2024-07-25 | Outpatient (REF) | payer MEDICAID, SELFPAY ==
[2024-07-25 09:09] LABS: Hematocrit 38.9 % (37-47); Hemoglobin 11.9 g/dL (12.0-15.0); Mean Corp Hgb Conc 30.6 g/dL (32-36); Mean Corpuscular Hgb 27.2 pg (27.0-32.0); Mean Platelet Vol. 10.7 fl (6.2-12.0); Platelet Count 401 K/mm3 (150-450); RBC Distribution Width CV 14.9 % (11.6-14.6); RBC Distribution Width SD 48.8 fl (35.1-43.9); Red Blood Count 4.37 M/mm3 (4.2-5.4); White Blood Count 7.6 K/mm3 (4.4-11.0)
[2024-07-25 10:30] LABS: ALB/GLOB Ratio 0.5 RATIO (0.9-2.4); AST(SGOT) 21 U/L (15-37); Alanine Aminotransfer ALT/SGPT 23 U/L (13-56); Albumin, Serum 2.5 g/dL (3.2-5.0); Alkaline Phosphatase 121 U/L (45-117); Anion Gap 3 (5-15); BUN 16 mg/dL (7-18); BUN/Creat Ratio 22.3 RATIO (10-20); Chloride 111 mmol/L (98-107); Creatinine, Serum 0.72 mg/dL (0.55-1.02); EST Glomerular Filtration Rate 92 mL/min (>60); Est Glom Filt Rate - Afr Amer 112 mL/min (>60); Glucose 104 mg/dL (74-106); Potassium 3.8 mmol/L (3.5-5.1); Protein, Total 7.5 g/dL (6.4-8.2); Sodium Level 140 mmol/L (136-145)
== END | disposition home or self-care (01) ==
LOC: OLS.SANC 04:00
PROVIDERS: Referring Provider Internal Medicine; Visit Provider Internal Medicine
DX: D64.9 Anemia, unspecified (principal); Z79.899 Other long term (current) drug therapy
CPT/HCPCS: 36415; 80053; 85027

== ENCOUNTER → 2024-09-03 | Outpatient (REF) | payer MEDICAID, SELFPAY ==
[2024-09-03 09:50] LABS: Hematocrit 37.9 % (37-47); Hemoglobin 11.6 g/dL (12.0-15.0); Mean Corp Hgb Conc 30.6 g/dL (32-36); Mean Corpuscular Hgb 27.4 pg (27.0-32.0); Mean Corpuscular Volume 89.4 fL (81-99); Mean Platelet Vol. 11.2 fl (6.2-12.0); Platelet Count 344 K/mm3 (150-450); RBC Distribution Width SD 49.1 fl (35.1-43.9); Red Blood Count 4.24 M/mm3 (4.2-5.4)
[2024-09-03 10:08] LABS: ALB/GLOB Ratio 0.5 RATIO (0.9-2.4); AST(SGOT) 13 U/L (15-37); Alanine Aminotransfer ALT/SGPT 15 U/L (13-56); Albumin, Serum 2.3 g/dL (3.2-5.0); Alkaline Phosphatase 116 U/L (45-117); Anion Gap 6 (5-15); BUN 19 mg/dL (7-18); BUN/Creat Ratio 24.2 RATIO (10-20); Calcium,Total 8.8 mg/dL (8.5-10.1); Chloride 109 mmol/L (98-107); Creatinine, Serum 0.79 mg/dL (0.55-1.02); EST Glomerular Filtration Rate 83 mL/min (>60); Est Glom Filt Rate - Afr Amer 100 mL/min (>60); Globulin 5.1 g/dL (2.2-4.2); Glucose 84 mg/dL (74-106); Potassium 3.7 mmol/L (3.5-5.1); Protein, Total 7.4 g/dL (6.4-8.2); Sodium Level 138 mmol/L (136-145)
== END | disposition home or self-care (01) ==
LOC: OLS.SANC 05:00
PROVIDERS: Visit Provider Internal Medicine
DX: D64.9 Anemia, unspecified (principal); I10 Essential (primary) hypertension; G82.50 Quadriplegia, unspecified
CPT/HCPCS: 36415; 80053; 85027

== ENCOUNTER → 2024-10-24 | Outpatient (REF) | payer MEDICAID, SELFPAY ==
[2024-10-24 08:09] LABS: Hematocrit 41.1 % (37-47); Hemoglobin 12.7 g/dL (12.0-15.0); Mean Corp Hgb Conc 30.9 g/dL (32-36); Mean Corpuscular Hgb 27.5 pg (27.0-32.0); Mean Platelet Vol. 11.1 fl (6.2-12.0); Platelet Count 348 K/mm3 (150-450); RBC Distribution Width CV 15.2 % (11.6-14.6); RBC Distribution Width SD 49.9 fl (35.1-43.9); Red Blood Count 4.62 M/mm3 (4.2-5.4); White Blood Count 7.9 K/mm3 (4.4-11.0)
[2024-10-24 09:52] LABS: ALB/GLOB Ratio 0.7 RATIO (0.9-2.4); AST(SGOT) 22 U/L (<=31); Alanine Aminotransfer ALT/SGPT 15 U/L (<=34); Alkaline Phosphatase 130 U/L (35-104); Anion Gap 10 (5-15); BUN 15 mg/dL (4-19); BUN/Creat Ratio 21.5 RATIO (10-20); Calcium,Total 8.7 mg/dL (7.6-11.0); Carbon Dioxide 21.9 mmol/L (21.0-32.0); Chloride 108 mmol/L (98-108); Creatinine, Serum 0.67 mg/dL (0.70-1.20); EST Glomerular Filtration Rate 107 (>60); Globulin 4.3 g/dL (2.2-4.2); Glucose 90 mg/dL (70-99); Potassium 3.9 mmol/L (3.3-5.1); Protein, Total 7.3 g/dL (5.9-8.4); Sodium Level 140 mmol/L (133-145); Total Bilirubin 0.18 mg/dL (0.00-1.30)
== END | disposition home or self-care (01) ==
LOC: OLS.SANC 04:00
PROVIDERS: Referring Provider Internal Medicine; Visit Provider Internal Medicine
DX: D64.9 Anemia, unspecified (principal); I10 Essential (primary) hypertension
CPT/HCPCS: 36415; 80053; 85027

== ENCOUNTER → 2024-12-11 | Outpatient (REF) | payer MEDICAID, SELFPAY ==
[2024-12-11 09:59] LABS: Absolute Lymphocyte Count 2.74 X10^3/uL (0.83-4.51); Absolute Neutrophil Count 4.3 X10^3/uL (2.0-7.7); Basophil# 0.04 X10^3/uL; Basophil% 0.5 % (0-1); Eosinophil# 0.14 X10^3/uL; Eosinophils% 1.8 % (0-5); Hematocrit 37.1 % (37-47); Hemoglobin 11.4 g/dL (12.0-15.0); Lymphocyte # 2.74 X10^3/ul (0.83-4.51); Lymphocyte % 34.7 % (19-41); Mean Corp Hgb Conc 30.7 g/dL (32-36); Mean Corpuscular Hgb 27.5 pg (27.0-32.0); Mean Corpuscular Volume 89.4 fL (81-99); Mean Platelet Vol. 10.8 fl (6.2-12.0); Monocyte% 8.9 % (0-10); NRBC Flagged by Analyzer 0 % (0-5); Neutrophil # 4.25 X10^3/uL (2.7-7.7); Neutrophil % 53.8 % (47-70); Platelet Count 345 K/mm3 (150-450); RBC Distribution Width CV 15.2 % (11.6-14.6); RBC Distribution Width SD 49.8 fl (35.1-43.9); Red Blood Count 4.15 M/mm3 (4.2-5.4); White Blood Count 7.9 K/mm3 (4.4-11.0)
== END | disposition home or self-care (01) ==
LOC: OLS.SANC 05:00
PROVIDERS: Visit Provider Internal Medicine
DX: D64.9 Anemia, unspecified (principal); N40.0 Benign prostatic hyperplasia without lower urinary tract symptoms
CPT/HCPCS: 36415; 85025

== ENCOUNTER → 2025-01-13 01:00 | Outpatient (REF) | payer MEDICAID, SELFPAY | LOC: OLS.SANC 01:00 | PROVIDERS: Referring Provider Internal Medicine; Visit Provider Internal Medicine | DX: T14.8XXA Other injury of unspecified body region, initial encounter (principal) | CPT/HCPCS: 87070; 87077; 87186; 87205 ==

== ENCOUNTER → 2025-01-28 | Outpatient (REF) | payer MEDICAID, SELFPAY ==
[2025-01-28 11:35] LABS: Hematocrit 38.1 % (37-47); Hemoglobin 11.7 g/dL (12.0-15.0); Mean Corp Hgb Conc 30.7 g/dL (32-36); Mean Corpuscular Volume 89.9 fL (81-99); Mean Platelet Vol. 11.1 fl (6.2-12.0); Platelet Count 309 K/mm3 (150-450); RBC Distribution Width CV 14.9 % (11.6-14.6); RBC Distribution Width SD 49.3 fl (35.1-43.9); Red Blood Count 4.24 M/mm3 (4.2-5.4); White Blood Count 6.8 K/mm3 (4.4-11.0)
[2025-01-28 11:51] LABS: AST(SGOT) 18 U/L (<=31); Alanine Aminotransfer ALT/SGPT 17 U/L (<=34); Albumin, Serum 3.2 g/dL (3.5-5.0); Alkaline Phosphatase 123 U/L (35-104); Anion Gap 11 (5-15); BUN 22 mg/dL (4-19); BUN/Creat Ratio 27.3 RATIO (10-20); Calcium,Total 9.2 mg/dL (7.6-11.0); Carbon Dioxide 23.7 mmol/L (21.0-32.0); Chloride 106 mmol/L (98-108); Globulin 3.8 g/dL (2.2-4.2); Glucose 91 mg/dL (70-99); Potassium 3.6 mmol/L (3.3-5.1)
== END | disposition home or self-care (01) ==
LOC: OLS.SANC 04:00
PROVIDERS: Referring Provider Internal Medicine; Visit Provider Internal Medicine
DX: D64.9 Anemia, unspecified (principal); N40.0 Benign prostatic hyperplasia without lower urinary tract symptoms
CPT/HCPCS: 36415; 80053; 85027

== ENCOUNTER → 2025-02-21 05:00 | Outpatient (REF) | payer MEDICAID, SELFPAY ==
--- OUTSIDE RECORDS SUMMARY | 2025-02-21 04:15 | XMS RPT_ITS | CCD ---
Author Organization [facility] Care Team Providers [facility] Social Worker Name Role Phone JONIELVER Unavailable Unavailable JONI, ELVER J Unavailable Unavailable [place], Elver Unavailable Unavailable Esterle, Yoko Unavailable Unavailable Esterle, Yoko Unavailable Unavailable Aamir, Maurice Unavailable Unavailable Esterle DO, Yoko M Primary Care Provider [phone] Venkat Malin Primary Care Provider Venkat Malin Primary Care Provider Venkat Melo Attending Provider Unavailab le Katsaros OLS, Venkat Referring Provider Unavailab le [place] OLS, Venkat Attending Provider Unavailab le [place] OLS, Venkat Referring Provider Unavailab le [place] OLS, Venkat Attending Provider Unavailab le [place] OLS, Venkat Referring Provider Unavailab le KATSAROSVENKAT Primary Care Unavailable DAJA VOGEL Admitting Unavailable CHERYL RAMIREZ Consulting Unavailable FLORENCIO HENNING Attending Unavailable [place] OLS, Venkat Attending Unavailable [place] OLS, Venkat Referring Unavailable [place] OLS, Venkat Attending Unavailable [place] OLS, Venkat Attending Unavailable K[place]ar[place] OLSVenkat Referring Unavailable [place] OLS, Venkat Attending Unavailable [place] OLS, Venkat Attending Unavailable [place] OLS, Venkat Attending Unavailable [place] OLS, Venkat Referring Unavailable [place] OLS, Venkat Attending Unavailable [place] OLS, Venkat Attending Unavailable [place] OLS, Venkat Attending Unavailable [place] OLS, Venkat Attending Unavailable [place] OLS, Venkat Attending Unavailable [place] OLS, Venkat Referring Unavailable [place] OLS, Venkat Attending Unavailable [place] OLS, Venkat Referring Unavailable [place] OLS, Venkat Attending Unavailable [place] OLS, Venkat Attending Unavailable Katsaros OLS, Venkat Attending Unavailable Allergies Allergy Classification Reported Allergen(s) Allergy Type Date of Onset Reaction(s) Facility (10 sources) Latex; Translations: [LATEX] Propensity to adverse reactions to drug (disorder) 7 Rash, Swelling [facility] Repository (10 sources) morphine; Translations: [MORPHINE] Drug Allergy 7 Swelling [facility] Repository (10 sources) pineapple flavor; Translations: [PINEAPPLE] Drug Allergy 7 Swelling [facility] Repository (1 source) avocado allergenic extract [facility] [address] [facility]) Alcohol Propensity to adverse reactions to drug 7 Unknown [facility] (8 sources) avocado oil [facility] Kiwi fruit Allergy to substance 3 [facility] NEGATED: Highlighted row has been ruled out! (1 source) Other Propensity to adverse reactions 1 [employer] Work Phone: Medications Current Medications Medication Drug Class(es) Dates Sig (Normalized) Sig (Original) Carboxymethylcellulose (1 source) take 3 drop(s) into the eye(s) every eight hours as needed Carboxymethylcellulose Sodium (ARTIFICIAL TEARS OP) Apply 3 drops to eye every 8 hours as needed (both eyes) 0 Active cetirizine hydrochloride 10 mg oral tablet (1 source) Histamine-1 Receptor Antagonist take 1 tablet by mouth once daily cetirizine (ZYRTEC) 10 MG tablet Take 10 mg by mouth daily 0 Active dextran 70 1 mg/ml / glycerin 2 mg/ml / hypromellose 3 mg/ml ophthalmic solution (3 sources) Plasma Volume Extension Service Specialist In Charge, Non-Standardize d Chemical Allergen Artificial Tears ophthalmic solution Administer 1 drop into both eyes as needed (Instill 1 drop in both eyes every 4 hours as needed). Active dextromethorphan hydrobromide 20 mg / quiNIDine sulfate 10 mg oral capsule (1 source) Antiarrhythmic, Uncompetitive S-zsuqbn-I-aspa rtate Receptor Antagonist, Cytochrome P450 2D6 Inhibitor, Sigma-1 Agonist dextromethorphan-irina NIDi ne (NUEDEXTA) 20-10 MG CAPS per capsule 1 capsule 0 Active docosahexaenoic acid 120 mg / eicosapentaenoic acid 180 mg oral capsule (9 sources) take 1 capsule by mouth once daily omega-3 (Fish Oil) 1000 MG capsule Take 1,000 mg by mouth daily. Active hypromellose (1 source) Hypromellose (NA TURAL BALANCE TEARS OP) Apply to eye 0 Active methadone hydrochloride 10 mg oral tablet (1 source) Opioid Agonist take 1 tablet by mouth every four hours as needed for pain methadone (DOLOPHINE) 10 MG tablet Take 10 mg by mouth every 4 hours as needed for Pain . 0 Active MULTIPLE VITAMIN PO (3 sources) take 1 tablet by mouth once daily MULTIPLE VITAMIN PO Indications: Supplement Take 1 tablet by mouth daily. Active Multiple Vitamins-Minerals (MULTIVITAMIN & MINERAL PO) (1 source) Multiple Vitamins-Minerals (MULTIVITAMIN & MINERAL PO) Take by mouth 0 Active naphazoline hydrochloride 0.25 mg/ml / pheniramine maleate 3 mg/ml ophthalmic solution (1 source) take 1 drop(s) into the eye(s) three times daily as needed naphazoline-pheniramine (VISINE-A) 0.025-0.3 % ophthalmic solution 1 drop 3 times daily as needed 0 Active nitrofurantoin, macrocrystals 50 mg oral capsule (1 source) Nitrofuran Antibacterial take 1 capsule by mouth once daily nitrofurantoin (MACRODANTIN) 50 MG capsule Take 50 mg by mouth nightly 0 Active omeprazole 20 mg delayed release oral capsule (9 sources) Proton Pump Inhibitor Start: 017 take 1 capsule by mouth once daily omeprazole (PRILOSEC) 20 MG delayed release capsule Take 1 capsule by mouth daily 30 capsule 0 11/05/2016 Active Completed/Discontinued Medications Medication Drug Class(es) Dates Sig (Normalized) Sig (Original) Acetaminophen (13 sources) Start: 01-14-2025 End: 01-20-2025 take 1 tablet by mouth every six hours as needed for pain and fever acetaminophen (Tylenol) tablet 650 mg Start: 07-07-2023 End: 07-11-2023 take 1 tablet by mouth every six hours as needed for pain and fever acetaminophen (Tylenol) tablet 650 mg take 2 tablets by mo uth every six hours as needed for fever and pain acetaminophen (Tylenol) 325 MG tablet Take 650 mg by mouth every 6 hours as needed for fever or mild pain (1-3). Active 20 ml albumin human, senior living 250 mg/ml injection (4 sources) Human Serum Albumin Start: 01-14-2025 End: 01-14-2025 50 g, IntraVENous, at 180 mL/hr, Once, On Mon01/14/25 at 1815, For 1 dose, Infusion rate depends on indication and clinical situation. In emergencies, may administer as rapidly as necessary to improve clinical condition. After initial volume replacement: 25%: Do not exceed 1 mL/minute (60 mL/hr) in patients with normal plasma volume; 2 to 3 mL/minute (120 to 180 mL/hr) in patients with hypoproteinemia Start: 07-07-2023 End: 07-08-2023 albumin human 25 % IV soluti on 50 g baclofen 10 mg oral tablet (13 sources) gamma-Aminobutyric Acid-ergic Agonist Start: 01-17-2025 End: 01-20-2025 take 10 mg by mouth three times daily 10 mg, Oral, 3 times daily, First dose on Mon01/17/25 at 2100, Indications: Muscle Spasm Start: 05-02-2023 End: 07-11-2023 take 1 tablet by mouth three times daily baclofen (Lioresal) 10 MG tablet Indications: Muscle Spasm Take 10 mg by mouth 3 times daily. 05/02/2023 Active take 10 mg by mouth three times daily baclofen (LIORESAL) 20 MG tablet Take 10 mg by mouth 3 times daily 0 Active bisacodyl 5 mg delayed relea se oral tablet (19 sources) Stimulant Laxative Start: 01-17-2025 End: 01-20-2025 End: 01-17-2025 bisacodyl (Dulcolax) 10 MG s uppository Insert 10 mg into the rectum. 01/17/2025 Discontinued (Med list cleanup) calcium chloride 0.0014 meq/ ml / potassium chloride 0.004 meq/ml / sodium chloride 0.103 meq/ml / sodium lactate 0.028 meq/ml injectable solution (2 sources) Start: 01-14-2025 End: 01-14-2025 1,000 mL, IntraVENous, at 1, 000 mL/hr, Administer over 1 Hours, Once, On Mon01/14/25 at 1330, For 1 dose cefTRIAXone (Rocephin) 1,000 mg in sodium chloride 0.9 % 50 mL IVPB Mini-Bag Plus (4 sources) Start: 07-08-2023 End: 07-09-2023 1,000 mg, IntraVENous, at 10 0 mL/hr, Administer over 30 Minutes, Every 24 hours, First dose on Mon07/08/23 at 1930, Mini-Bag Plus bag, Suspected Indication (Select all that apply): Urinary Tract Infection Start: 07-07-2023 End: 07-07-2023 cefTRIAXone (Rocephin) 1,000 mg in sodium chloride 0.9 % 50 mL IVPB Mini-Bag Plus clonazePAM 1 mg oral tablet (13 sources) Benzodiazepine Start: 01-17-2025 End: 01-20-2025 take 1 mg by mouth twice daily 1 mg, Oral, 2 times daily, First dose on Mon01/17/25 at 2100, Indications: Seizures Start: 04-07-2023 End: 07-11-2023 take 1 tablet by mouth twice daily clonazePAM (KlonoPIN) 1 MG tablet Indications: Seizures Take 1 mg by mouth 2 times daily. 04/07/2023 Active take 1 tablet by arlyn th once daily clonazePAM (KLONOPIN) 1 MG tablet Take 1 mg by mouth daily. 0 Active 2 ml dicyclomine hydrochloride 10 mg/ml injection (2 sources) Anticholinergic Start: 01-14-2025 End: 01-15-2025 inject 20 mg by intramuscular injection four times daily 20 mg, IntraMUSCular, 4 times daily, First dose on Mon01/14/25 at 2330, For 3 doses diphenhydrAMINE (BENADryl) injection 25 mg (2 sources) Start: 07-09-2023 End: 07-11-2023 take 25 mg intravenously every six hours as needed diphenhydrAMINE (BENADryl) injection 25 mg 0.4 ml enoxaparin sodium 100 mg/ml prefilled syringe (2 sources) Low Molecular Weight Heparin Start: 07-08-2023 End: 07-11-2023 inject 40 mg by subcutaneous injection every twenty-four hours 40 mg, SubCUTAneous, Every 24 hours scheduled (Daily), First dose on Mon07/08/23 at 0900, Indication of Use: Prophylaxis-DVT/PE , Indications: Prophylaxis of Venous Thromboembolism EPINEPHrine 0.01 mg/ml / lidocaine hydrochloride 10 mg/ml injectable solution (2 sources) Antiarrhythmic, alpha-Adrenergic Agonist, beta-Adrenergic Agonist, Catecholamine, Amide Local Anesthetic Start: 01-14-2025 End: 01-14-2025 5 mL, Infiltration, Once, On Mon01/14/25 at 1130, For 1 dose ferrous sulfate 325 mg oral tablet (5 sources) Start: 01-17-2025 End: 01-20-2025 take 325 mg by mouth twice daily 325 mg, Oral, 2 times daily, First dose on Mon01/17/25 at 2000 folic acid 1 mg oral tablet (5 sources) Start: 01-17-2025 End: 01-20-2025 take 1 mg by mouth once daily 1 mg, Oral, Daily, First dose on Mon01/17/25 at 2000, Indications: Supplement gabapentin 400 mg oral capsule (13 sources) Anti-epileptic Agent Start: 04-08-2023 End: 01-20-2025 take 400 mg by mouth twice daily 400 mg, Oral, 2 times daily, First dose on Mon01/17/25 at 2100, Indications: Epilepsy, unspecified, not intractable, without status epilepticus Start: 04-08-2023 End: 07-11-2023 take 400 mg by mouth once daily 400 mg, Oral, Nightly, First dose on Mon07/07/23 at 2215 take 1 capsule by [facility] three times daily gabapentin (NEURONTIN) 300 MG capsule Take 300 mg by mouth 3 times daily 0 Active glycerin 3 mg/ml / propylene glycol 10 mg/ml ophthalmic solution (2 sources) Non-Standardized Chemical Allergen Start: 01-17-2025 End: 01-20-2025 take 1 drop(s) into the eye(s) every four hours as needed 1 drop, Both Eyes, Every 4 hours PRN, dry eyes, Instill 1 drop in both eyes every 4 hours as needed for dry eyes, Starting on Mon01/17/25 at 1842 12 hr guaiFENesin 600 mg extended release oral tablet (11 sources) Start: 01-17-2025 End: 01-20-2025 take 600 mg by mouth once daily 600 mg, Oral, Daily, First dose on Mon01/17/25 at 2000, Administer with plenty of fluids to ensure proper action. Do not crush, chew, or split., Indications: Congestion take 100 mg by mouth every four hours as needed for cough guaiFENesin (Robitussin) 100 MG/5ML liqu id Take 100 mg by mouth every 4 hours as needed for cough. Active guaiFENesin (Muc us Relief) 400 MG tablet Take 400 mg by mouth. Active 0.5 ml heparin sodium, porcine 55083 unt/ml prefilled syringe (2 sources) Unfractionated Heparin, Anti-coagulant Start: 01-14-2025 End: 01-20-2025 inject 1 dose by subcutaneous injection twice daily 5,000 Units, SubCUTAneous, Every 12 hours scheduled (2 times per day), First dose on Mon01/14/25 at 2255 Ibuprofen (6 sources) Nonsteroidal Anti-inflammatory Drug Start: 01-17-2025 End: 01-20-2025 take 1 tablet by arlyn th every eight hours as needed for pain ibuprofen 800 MG tablet Indications: Lalito n , Encourage 6-8 onces of fluid to minimize possible GI irritation Take 800 mg by mouth every 8 hours as needed for mild pain (1-3). Active take 1 tablet by arlyn th every eight hours as needed for pain ibuprofen (ADVIL;MOTRIN) 200 MG tablet T rebeka 200 mg by mouth every 8 hours as needed for Pain 0 Active lactulose 667 mg/ml oral solution (11 sources) Osmotic Laxative Start: 04-10-2023 End: 01-20-2025 take 10 g by mouth once daily 10 g (15 mL), Oral, Daily, First dose on Mon01/17/25 at 1999, Indications: Constipation take 10 g by mouth once daily la ctulose (CEPHULAC) 10 G packet Take 10 g by mouth daily 0 Active magnesium hydroxide 80 mg/ml oral suspension (11 sources) Start: 01-17-2025 End: 01-20-2025 take 8 [oz_av] by mouth every twenty-four hours 30 mL, Oral, Every 24 hours, First dose on Mon01/17/25 at 1999, Follow dose with 8 oz of water., Indications: Constipation magnesium hydrox darcy (Milk of Magnesia) 400 MG/5ML suspension Take 30 mL by mouth. 0 Active take 30 mL by mouth once daily M agnesium Hydroxide (MILK OF MAGNESIA PO) Take 30 mLs by mouth daily 0 Active melatonin 3 mg oral tablet (2 sources) Start: 01-14-2025 End: 01-20-2025 take 3 mg by mouth once daily 3 mg, Oral, Nightly, First dose on Mon01/14/25 at 2255 mirtazapine 15 mg oral tablet (5 sources) Start: 01-17-2025 End: 01-20-2025 take 7.5 mg by mouth once daily 7.5 mg, Oral, Nightly, First dose on Mon01/17/25 at 2100, Indications: Appetite stimulant related to major depressive disorder take 0.5 mg by mouth once daily mirtazapine (Remeron) 15 MG tablet Indications: Appetite stimulant related to major depressive disorder Take 0.5 mg by mouth Nightly. Active ondansetron ODT (Zofran-ODT) disintegrating tablet 4 mg (4 sources) Start: 01-14-2025 End: 01-20-2025 take 1 tablet by mouth every eight hours as needed for nausea and vomiting ondansetron ODT (Zofran-ODT) disintegrating tablet 4 mg Start: 07-07-2023 End: 07-11-2023 take 1 tablet by mouth every eight hours as needed for nausea and vomiting ondansetron ODT (Zofran-ODT) disintegrating tablet 4 mg OXcarbazepine 150 mg oral tablet (13 sources) Anti-epileptic Agent Start: 01-17-2025 End: 01-20-2025 take 300 mg by mouth twice daily 300 mg, Oral, 2 times daily, First dose on Mon01/17/25 at 2015, Indications: Epilepsy Start: 07-07-2023 End: 07-11-2023 take 300 mg by mouth twice daily 300 mg, Oral, 2 times daily, First dose on Mon07/07/23 at 2215 Start: 04-11-2023 take 1 tablet by arlyn twice daily OXcarbazepine (Trileptal) 300 MG tablet Indications: Epilepsy Take 300 mg by mouth 2 times daily. 04/11/2023 Active take 1 tablet by arlyn th twice daily OXcarbazepine (TRILEPTAL) 300 MG tablet Take 300 mg by mouth 2 times daily 0 Active oxyCODONE (2 sources) Opioid Agonist Start: 07-08-2023 End: 07-11-2023 take 1 tablet by mouth every four hours as needed for pain oxyCODONE (Roxicodone) immediate release tablet 2.5 mg pantoprazole 40 mg delayed release oral tablet (4 sources) Proton Pump Inhibitor Start: 01-18-2025 End: 01-20-2025 take 40 mg by mouth once daily before breakfast 40 mg, Oral, Daily before breakfast, First dose on Mon01/18/25 at 0600, Substituted for omeprazole (Prilosec). Do not crush, chew, or split. Start: 07-08-2023 End: 07-11-2023 take 40 mg by mouth once daily before breakfast 40 mg, Oral, Daily before breakfast, First dose on Mon07/08/23 at 0700, Substituted for omeprazole (Prilosec). Do not crush, chew, or split. polyethylene glycol 3350 50009 mg powder for oral solution (15 sources) Osmotic Laxative Start: 01-14-2025 End: 01-20-2025 take 17 g by mouth every twenty-four hours as needed for constipation Start: 07-07-2023 End: 07-11-2023 17 g, Oral, Daily, First dos e on Mon07/08/23 at 0900 microencapsulated potassium chloride 10 meq extended release oral tablet (7 sources) Start: 01-17-2025 End: 01-17-2025 40 mEq, Oral, Once, On Mon01/17/25 at 1030, For 1 dose, Best given with food and plenty of water to minimize gastric irritation. Do not crush or chew. Start: 07-09-2023 End: 07-09-2023 potassium chloride CR (Klor- Con M20) ER tablet 20 mEq potassium chlori de CR (Klor-Con) 8 MEQ ER tablet Indications: Hypokalemia Take 20 mEq by mouth daily. Do not crush, chew, or split. Active Sertraline (20 sources) Serotonin Reuptake Inhibitor Start: 01-19-2025 End: 01-20-2025 take 75 mg by mouth once daily 75 mg, Oral, Daily, First dose (after last modification) on Mon01/19/25 at 0900 Start: 01-17-2025 End: 01-18-2025 take 25 mg by mouth once daily 25 mg, Oral, Daily, Fir st dose on Mon01/17/25 at 2015 Start: 07-08-2023 End: 07-11-2023 take 25 mg by mouth once daily 25 mg, Oral, Daily, Fir st dose on Mon07/08/23 at 0900 Start: 05-08-2023 End: 07-11-2023 sertraline (Zoloft) 50 MG ta blet 05/08/2023 Active take 1 tablet by arlyn th once daily sertraline (ZOLOFT) 100 MG tablet Take 100 mg by mouth daily 0 Active 50 ml sodium chloride 9 mg/m l injection (10 sources) Start: 01-14-2025 End: 01-14-2025 2,000 mL, IntraVENous, at 4, 000 mL/hr, Administer over 0.5 Hours, Once, On Mon01/14/25 at 1020, For 1 dose Start: 07-07-2023 End: 07-07-2023 1,000 mL, IntraVENous, at 2, 000 mL/hr, Administer over 30 Minutes, Once, On Mon07/07/23 at 2215, For 1 dose Start: 07-07-2023 End: 07-11-2023 take 100 mL intravenously every hour 100 mL/hr, IntraVENous, Continuous, Starting on Mon07/07/23 at 2215 Start: 07-07-2023 End: 07-07-2023 sodium chloride 0.9 % bolus 1,000 mL tamsulosin hydrochloride 0.4 mg oral capsule (13 sources) alpha-Adrenergic David Start: 01-17-2025 End: 01-20-2025 take 0.4 mg by mouth once daily 0.4 mg, Oral, Daily, First dose on Mon01/17/25 at 2000, Do not crush, chew, or split., Indications: Bladder spasms Start: 04-21-2023 End: 07-11-2023 take 1 capsule by mouth once daily tamsulosin (Flomax) 0.4 MG 24 hr capsule Indications: Bladder spasms Take 0.4 mg by mouth daily. 04/21/2023 Active Start: 04-21-2023 tamsulosin (Fl omax) 0.4 MG 24 hr capsule take 1 capsule by mo uth once daily tamsulosin (FLOMAX) 0.4 MG capsule Take 0.4 mg by mouth daily 0 Active topiramate 100 mg oral tablet (13 sources) Start: 01-18-2025 End: 01-20-2025 take 100 mg by mouth twice daily 100 mg, Oral, 2 times daily, First dose on Mon01/18/25 at 1145, Do not crush, chew, or split. Start: 07-08-2023 End: 07-11-2023 take 200 mg by mouth once daily 200 mg, Oral, Daily, F irst dose on 07/08/23 at 0900, Do not crush, chew, or split. Start: 04-29-2023 topiramate (To pamax) 200 MG tablet 04/29/2023 Active take 1 tablet by arlyn th twice daily topiramate (TOPAMAX) 200 MG tablet Take 200 mg by mouth 2 times daily 0 Active Vancomycin (2 sources) Glycopeptide Antibacterial Start: 07-09-2023 End: 07-10-2023 take 1250 mg intravenously every twelve hours vancomycin IVPB 1250 mg in 250 mL NS (premix) Problems Active Problems Problem Classification Problem Date Documented Da te Episodic/Chronic Deficiency and other anemia (2 sources) Anemia, unspecified; Translations: [Anemia, unspecified] Onset: 01-01-2025 Episodic Delirium, dementia, and amnestic and other cognitive disorders (1 source) Unspecified dementia without behavioral disturbance; Translations: [Unspecified dementia, unspecified severity, without behavioral disturbance, psychotic disturbance, mood disturbance, and anxiety] Onset: 07-05-2024 Chronic Disorders of lipid metabolism (1 source) Pure hypercholesterolemi a, unspecified; Translations: [Pure hypercholesterolemi a, unspecified] Onset: 07-05-2024 Chronic Essential hypertension (1 source) Essential (primary) hypertension; Translations: [Essential (primary) hypertension] Onset: 11-05-2024 Chronic Hyperplasia of prostate (2 sources) Benign prostatic hyperplasia without lower urinary tract symptoms; Translations: [Benign prostatic hyperplasia without lower urinary tract symptoms] Onset: 01-01-2025 Chronic Menstrual disorders (1 source) Excessive and frequent menstruation with regular cycle; Translations: [Excessive and frequent menstruation with regular cycle] Onset: 08-23-2017 Chronic Nonmalignant breast conditions (3 sources) Lump in lower inner quadrant of left breast; Translations: [Unspecified lump in the left breast, lower inner quadrant] 05-09-2023 Episodic Nutritional deficiencies (1 source) Vitamin D deficiency, unspecified; Translations: [Vitamin D deficiency, unspecified] Onset: 07-05-2024 Chronic Open wounds of head; neck; and trunk (1 source) Scalp laceration; Translations: [Laceration without foreign body of scalp, initial encounter] Episodic Other circulatory disease (10 sources) Low blood pressure; Translations: [Hypotension, unspecified] Onset: 01-14-2025 01-14-2025 Episodic Other circulatory disease (2 sources) Hypotension, unspecified; Translations: [Hypotension, unspecified] Onset: 01-14-2025 Episodic Other female genital disorders (10 sources) Abnormal uterine bleeding; Translations: [Abnormal uterine and vaginal bleeding, unspecified] Onset: 07-19-2017 07-19-2017 Chronic Other injuries and conditions due to external causes (1 source) Injury of head; Translations: [Unspecified injury of head, initial encounter] Episodic Other nervous system disorders (10 sources) Chronic pain due to injury; Translations: [Chronic pain due to trauma] Onset: 10-06-2020 10-06-2020 Chronic Paralysis (15 sources) Tetraplegia; Translations: [Quadriplegia, unspecified] Onset: 10-06-2020 10-06-2020 Chronic Residual codes; unclassified (2 sources) Disorientated; Translations: [Disorientation, unspecified] 01-14-2025 Episodic Residual codes; unclassified (2 sources) Disorientation, unspecified; Translations: [Disorientation, unspecified] Onset: 01-14-2025 Episodic Thyroid disorders (1 source) Hypothyroidism, unspecified; Translations: [Hypothyroidism, unspecified] Onset: 03-25-2024 Chronic Unclassified (1 source) Unknown / UNK(Unknown) Onset: 05-21-2018 Past or Other Problems Problem Classification Problem Date Documented Date Episodic/Chronic Benign neoplasm of uterus (2 sources) Leiomyoma of uterus, unspecified; Translations: [Leiomyoma of uterus, unspecified] Onset: 07-21-2017 Episodic Biliary tract disease (10 sources) Cholelithiasis AND cholecystitis without obstruction; Translations: [Calculus of gallbladder with chronic cholecystitis without obstruction] Onset: 09-06-2016 09-06-2016 Episodic Genitourinary symptoms and ill-defined conditions (1 source) Retention of urine, unspecified; Translations: [Retention of urine, unspecified] Onset: 05-03-2024 Episodic Intracranial injury (1 source) Personal history of traumatic brain injury; Translations: [Personal history of traumatic brain injury] Onset: 04-10-2024 Episodic Other aftercare (2 sources) Other senior care (current) drug therapy; Translations: [Other senior care (current) drug therapy] Onset: 07-05-2024 Episodic Other liver diseases (10 sources) Elevated liver enzymes level; Translations: [Abnormal levels of other serum enzymes] Onset: 08-17-2017 08-17-2017 Episodic Other non-traumatic joint disorders (1 source) Joint pain; Translations: [Pain in unspecified joint] Episodic Spondylosis; intervertebral disc disorders; other back problems (10 sources) Low back pain; Translations: [Low back pain] Onset: 10-06-2020 10-06-2020 Episodic Unclassified (1 source) ELEVATED LIVER ENZYMES~ Onset: 05-21-2018 Urinary tract infections (10 sources) Urinary tract infectious disease; Translations: [Urinary tract infection, site not specified] Onset: 07-07-2023 07-07-2023 Episodic Results Test Name Value Interpretation Reference Range Facility CBC-Complete Blood Cnt No Di ffon 01-28-2025 Erythrocyte distribution width (RBC) [Ratio] 14.9 % High 11.6-14.6 [facility] Comment on above: Order Comment: 302.1 Performed By: #### L [id number], L100.0500 #### [facility] [address] [place], [address] Hematocrit (Bld) [Volume fraction] 38.1 % Normal 37-47 [facility] Comment on above: Order Comment: 302.1 Performed By: #### L [id number], L100.0500 #### [facility] [address] [place], [address] Hemoglobin (Bld) [Mass/Vol] 11.7 g/dL Low 12.0-15.0 [facility] Comment on above: Order Comment: 302.1 Performed By: #### L 500.4050, L100.0500 #### [facility] [address] [place], [address] MCH (RBC) [Entitic mass] 27.6 pg Normal 27.0-32.0 [facility] Comment on above: Order Comment: 302.1 Performed By: #### L 500.4050, L100.0500 #### [facility] [address] [place], [address] MCHC (RBC) [Mass/Vol] 30.7 g/dL Low 32-36 [facility] Comment on above: Order Comment: 302.1 Performed By: #### L 500.4050, L100.0500 #### [facility] [address] [place], [address] MCV (RBC) [Entitic vol] 89.9 fL Normal 81-99 [facility] Comment on above: Order Comment: 302.1 Performed By: #### L 500.4050, L100.0500 #### [facility] [address] [place], [address] Platelet mean volume (Bld) [Entitic vol] 11.1 fL Normal 6.2-12.0 [facility] Comment on above: Order Comment: 302.1 Performed By: #### L 500.4050, L100.0500 #### [facility] [address] [place], [address] Platelets (Bld) [#/Vol] 309 10*3/uL Normal 150-450 [facility] Comment on above: Order Comment: 302.1 Performed By: #### L 500.4050, L100.0500 #### [facility] [address] [place], [address] RBC (Bld) [#/Vol] 4.24 10*6/uL Normal 4.2-5.[address] [facility] Comment on above: Order Comment: 302.1 Performed By: #### L 500.4050, L100.0500 #### [facility] [address] [place], [address] RDW SD 49.3 fl High 35.1-43.9 [facility] Comment on above: Order Comment: 302.1 Performed By: #### L 500.4050, L100.0500 #### [facility] [address] [place], [address] WBC (Bld) [#/Vol] 6.8 10*3/uL Normal 4.4-11.0 [facility] Comment on above: Order Comment: 302.1 Performed By: #### L 500.4050, L100.0500 #### [facility] [address] [place], [address] Comprehensive Metabolic Prof ilon 01-28-2025 Albumin [Mass/Vol] 3.2 g/dL Low 3.5-5.0 [facility] Comment on above: Order Comment: 302-1 Performed By: #### L 500.4050, L100.0500 #### [facility] [address] [place], [address] Albumin/Globulin [Mass ratio] 0.8 {ratio} Low 0.9-2.4 [facility] Comment on above: Order Comment: 302-1 Performed By: #### L 500.4050, L100.0500 #### [facility] [address] [place], [address] ALK PHOS 123 U/L High 35-104 [facility] Comment on above: Order Comment: 302-1 Performed By: #### L 500.4050, L100.0500 #### [facility] [address] [place], [address] ALT [Catalytic activity/Vol] 17 U/L Normal <=34 [facility] Comment on above: Order Comment: 302-1 Performed By: #### L 500.4050, L100.0500 #### [facility] [address] [place], [address] AST [Catalytic activity/Vol] 18 U/L Normal <=31 [facility] Comment on above: Order Comment: 302-1 Performed By: #### L 500.4050, L100.0500 #### [facility] [address] [place], [address] Bilirubin [Mass/Vol] 0.18 mg/dL Normal 0.00-1.30 [facility] Comment on above: Order Comment: 302-1 Performed By: #### L 500.4050, L100.0500 #### [facility] [address] [place], [address] BUN/CRE 27.3 RATIO High 10-20 [facility] Comment on above: Order Comment: 302-1 Performed By: #### L 500.4050, L100.0500 #### [facility] [address] [place], [address] Calcium [Mass/Vol] 9.2 mg/dL Normal 7.6-11.0 [facility] Comment on above: Order Comment: 302-1 Performed By: #### L 500.4050, L100.0500 #### [facility] [address] [place], [address] Chloride [Moles/Vol] 106 mmol/L Normal 98-108 [facility] Comment on above: Order Comment: 302-1 Performed By: #### L 500.4050, L100.0500 #### [facility] [address] [place], [address] CO2 [Moles/Vol] 23.7 mmol/L Normal 21.0-32.0 [facility] Comment on above: Order Comment: 302-1 Performed By: #### L 500.4050, L100.0500 #### [facility] [address] [place], [address] Creatinine [Mass/Vol] 0.79 mg/dL Normal 0.70-1.20 [facility] Comment on above: Order Comment: 302-1 Performed By: #### L 500.4050, L100.0500 #### [facility] [address] [place], [address] GAP 11 Normal 5-15 [facility] Comment on above: Order Comment: 302-1 Performed By: #### L 500.4050, L100.0500 #### [facility] [address] [place], [address] GFR/1.73 sq M.predicted among non-blacks MDRD (S/P/Bld) [Vol rate/Area] 92 mL/min/{1.73_m2} Normal >60 [facility] Comment on above: Order Comment: 302-1 Result Comment: mL/m in/1.73m2 CKD-EPI Creatinine Equation (2020) Performed By: #### L 500.4050, L100.0500 #### [facility] [address] [place], [address] Globulin (S) [Mass/Vol] 3.8 g/dL Normal 2.2-4.2 [facility] Comment on above: Order Comment: 302-1 Performed By: #### L 500.4050, L100.0500 #### [facility] [address] [place], [address] Glucose [Mass/Vol] 91 mg/dL Normal 70-99 [facility] Comment on above: Order Comment: 302-1 Performed By: #### L 500.4050, L100.0500 #### [facility] [address] [place], [address] Potassium [Moles/Vol] 3.6 mmol/L Normal 3.3-5.1 [facility] Comment on above: Order Comment: 302-1 Performed By: #### L 500.4050, L100.0500 #### [facility] [address] [place], [address] Sodium [Moles/Vol] 141 mmol/L Normal 133-145 [facility] Comment on above: Order Comment: 302-1 Performed By: #### L 500.4050, L100.0500 #### [facility] [address] [place], [address] T PROT 7.0 g/dL Normal 5.9-8.4 [facility] Comment on above: Order Comment: 302-1 Performed By: #### L 500.4050, L100.0500 #### [facility] [address] [place], [address] Urea nitrogen [Mass/Vol] 22 mg/dL High 4-19 [facility] Comment on above: Order Comment: 302-1 Performed By: #### L 500.4050, L100.0500 #### [facility] [address] [place], [address] 30on 01-20-2025 30 Problem: Knowledge D eficit Goal: Patient/family/caregiver demonstrates understanding of disease process, treatment plan, medications, and discharge instructions Outcome: Progressing Problem: Potential for Compromised Skin Integrity Goal: Skin Integrity is Maintained or Improved Outcome: Progressing [facility] [id number] 01-20-2025 [id number] Confirmed pickup tariq e of 5:00pm by transport company [employer] at phone number [phone]. Location of facility drop off is [facility]. Facility notified via [employer], TCC notified on secure chat. [facility] [phone] MAR, Med Rec and Upd ated Clinicals sent to [facility] via [employer] per TCC request. [facility] [phone] Pt is stable for DC. Attending to place DC orders and MAR. RN to complete ERNESTO. HOTEL ATTENDANT tasked to arrange transport for 5:00 today and to sen DC Summary and MAR. SNF updated. Legal Guardian Eric [phone] called and messaged left @DC. [facility] 36on 01-20-2025 36 S: Denise from [facility] spoke with CAC nurse regarding patient update B: Onset of symptoms/concern today A: Denise calling to updated Dr Malin patient was discharged from [facility] today and admitted to [facility]. R: Message to provider. Reason for Disposition General information question, no triage required and triager able to answer question Protocols used: Information Only Call - No [id number] Normal [facility] BASIC METABOLIC PANELon 12-30 Anion gap [Moles/Vol] 7 mmol/L Normal 3-13 [facility] Comment on above: Performed By: #### L AB15 ####Concrete Pourer: ERIKA ANGELO ([id number])[address] Calcium [Mass/Vol] 9.2 mg/dL Normal 8.4-10.2 [facility] Comment on above: Performed By: #### L AB15 ####Concrete Pourer: ERIKA ANGELO ([id number])[address] Chloride [Moles/Vol] 106 mmol/L Normal 98-107 [facility] Comment on above: Performed By: #### L AB15 ####Concrete Pourer: ERIKA ANGELO ([id number])[address] CO2 [Moles/Vol] 23 mmol/L Normal 22-29 [facility] Comment on above: Performed By: #### L AB15 ####Concrete Pourer: ERIKA ANGELO ([id number])[address] Creatinine [Mass/Vol] 0.73 mg/dL Normal 0.57-1.11 [facility] Comment on above: Performed By: #### L AB15 ####Concrete Pourer: ERIKA [id number])[facility])[address] [place] [address] GLOMERULAR FILTRATION RATE ML/MIN/1.73 SQ M.PREDICTED >90.0 Normal >60.0 [facility] Comment on above: Result Comment: Calc ulation based on the Chronic Kidney Disease Epidemiology Collaboration (CKD-EPI) equation refit without adjustment for race Performed By: #### L AB15 ####Concrete Pourer: ERIKA ANGELO ([id number])[facility])[address] [place] [address] Glucose [Mass/Vol] 98 mg/dL Normal 74-100 [facility] Comment on above: Performed By: #### L AB15 ####Concrete Pourer: ERIKA ANGELO ([id number])[facility])[address] [place] [address] Potassium [Moles/Vol] 3.9 mmol/L Normal 3.5-5.1 [facility] Comment on above: Result Comment: [facility] potassium values may be up to 0.5 mmol/L lower than serum values. Performed By: #### L AB15 ####Concrete Pourer: ERIKA ANGELO ([id number])[facility])[address] [place] [address] Sodium [Moles/Vol] 136 mmol/L Normal 136-145 [facility] Comment on above: Performed By: #### L AB15 ####Concrete Pourer: ERIKA ANGELO ([phone])[facility])[address] [place] [address] Urea nitrogen [Mass/Vol] 22 mg/dL High 8-21 [facility] Comment on above: Performed By: #### L AB15 ####Concrete Pourer: ERIKA ANGELO ([id number])[facility])[address] [place] [address] Basic metabolic 1998 panelon 01-20-2025 Anion gap [Moles/Vol] 7 mmol/L 3 - 13 mmol/L [facility] Calcium [Mass/Vol] 9.2 mg/dL 8.4 - 10. 2 mg/dL [facility] Chloride [Moles/Vol] 106 mmol/L 98 - 10 7 mmol/L [facility] CO2 [Moles/Vol] 23 mmol/L 22 - 29 mmol/L [facility] Creatinine [Mass/Vol] 0.73 mg/dL 0.57 - 1.11 mg/dL [facility] GFR/1.73 sq M.predicted (S/P/Bld) [Vol rate/Area] - PINF [facility] Comment on above: Calculation based on the Chronic Kidney Disease Epidemiology Collaboration (CKD-EPI) equation refit without adjustment for race Glucose [Mass/Vol] 98 mg/dL 74 - 100 mg/dL [facility] Interpretation and review of laboratory results Abnormal [facility] Potassium [Moles/Vol] 3.9 mmol/L 3.5 - 5.1 mmol/L [facility] Comment on above: Plasma potassium stacey ues may be up to 0.5 mmol/L lower than serum values. 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 Pt IV dcd tip intact. Awaiting transport. Normal [facility] 30on 01-19-2025 30 Problem: Knowledge D eficit Goal: Patient/family/caregiver demonstrates understanding of disease process, treatment plan, medications, and discharge instructions Outcome: Progressing Problem: Potential for Compromised Skin Integrity Goal: Skin Integrity is Maintained or Improved Outcome: Progressing Goal: Nutritional status is improving Outcome: Progressing Problem: Urinary Incontinence Goal: Perineal skin integrity is maintained or improved Outcome: Progressing Problem: Problem Interventions Goal: Assess Nutritional Intake Outcome: Progressing Normal [facility] Bacteria identified Cx Nom ( Bld)on 01-19-2025 Interpretation and review of laboratory results Normal [facility] Blood Collection Sit e: Left Arm [facility] Interpretation and review of laboratory results Normal [facility] Blood Collection Sit e: Right Femoral Line [facility] Laboratory - Microbiology an d Antimicrobial susceptibilityon 01-19-2025 Bacteria identified Cx Nom (Bld) No growth at 5 days [facility] Bacteria identified Cx Nom (Bld) No growth at 5 days [facility] 30on 01-18-2025 30 Problem: Potential f or Compromised Skin Integrity Goal: Skin Integrity is Maintained or Improved Outcome: Progressing Flowsheets (Taken 01/18/20251937) Skin integrity is maintained or improved: Assess and monitor skin integrity Collaborate with interdisciplinary team and initiate plans and interventions as needed Relieve pressure to bony prominences Keep skin clean and dry Encourage use of lotion/moisturizer on skin Collaborate with wound, ostomy, and continence nurse Identify patients at risk for skin breakdown on admission and per policy Turn patient Avoid shearing Problem: Urinary Incontinence Goal: Perineal skin integrity is maintained or improved Outcome: Progressing Flowsheets (Taken 01/18/20251937) Perineal skin integrity is maintained or improved: Assess genitourinary system, perineal skin, labs (urinalysis), and history of incontinence to include past management, aggravating, and alleviating factors Collaborate with interdisciplinary team including wound, ostomy, and continence nurse and initiate plans and interventions as needed Keep skin clean and dry Apply urine containment device Apply skin protectant Develop skin care regimen Provide privacy when changing patient's incontinence device to maintain their dignity Normal [facility] BASIC METABOLIC PANELon 06- Anion gap [Moles/Vol] 8 mmol/L Normal 3-13 [facility] Comment on above: Performed By: #### L AB15 ####Concrete Pourer: ERIKA ANGELO ([phone])[address] Calcium [Mass/Vol] 9.0 mg/dL Normal 8.4-10.2 [facility] Comment on above: Performed By: #### L AB15 ####Concrete Pourer: ERIKA ANGELO ([id number])[facility])[address] [place] [address] Chloride [Moles/Vol] 112 mmol/L High 98-107 [facility] Comment on above: Performed By: #### L AB15 ####Concrete Pourer: ERIKA ANGELO ([id number])[facility] ([facility])[address] [place] [address] CO2 [Moles/Vol] 23 mmol/L Normal 22-29 [facility] Comment on above: Performed By: #### L AB15 ####Concrete Pourer: ERIKA ANGELO ([id number])[facility])[address] [place] [address] Creatinine [Mass/Vol] 0.70 mg/dL Normal 0.57-1.11 [facility] Comment on above: Performed By: #### L AB15 ####Concrete Pourer: ERIKA ANGELO ([id number])[facility])[address] [place] [address] GLOMERULAR FILTRATION RATE ML/MIN/1.73 SQ M.PREDICTED >90.0 Normal >60.0 [facility] Comment on above: Result Comment: Calc ulation based on the Chronic Kidney Disease Epidemiology Collaboration (CKD-EPI) equation refit without adjustment for race Performed By: #### L AB15 ####Concrete Pourer: ERIKA ANGELO ([id number])[facility] ([facility])[address] [place] [address] Glucose [Mass/Vol] 95 mg/dL Normal 74-100 [facility] Comment on above: Performed By: #### L AB15 ####Concrete Pourer: ERIKA ANGELO ([id number])[facility])[address] [place] [address] Potassium [Moles/Vol] 4.8 mmol/L Normal 3.5-5.1 [facility] Comment on above: Result Comment: [facility] potassium values may be up to 0.5 mmol/L lower than serum values. Performed By: #### L AB15 ####Concrete Pourer: ERIKA ANGELO ([id number])[facility])[address] [place] [address] Sodium [Moles/Vol] 143 mmol/L Normal 136-145 [facility] Comment on above: Performed By: #### L AB15 ####Concrete Pourer: ERIKA ANGELO ([id number])[facility])[address] [place] [address] Urea nitrogen [Mass/Vol] 16 mg/dL Normal 8-21 [facility] Comment on above: Performed By: #### L AB15 ####Concrete Pourer: ERIKA ANGELO ([id number])[facility] ([facility])[address] [place] [address] Basic metabolic 1998 panelOr dered By: Libby Gregory on 01-18-2025 Anion gap [Moles/Vol] 8 mmol/L 3 - 13 mmol/L [facility] Calcium [Mass/Vol] 9 mg/dL 8.4 - 10. 2 mg/dL [facility] Chloride [Moles/Vol] 112 mmol/L High 98 - 10 7 mmol/L [facility] CO2 [Moles/Vol] 23 mmol/L 22 - 29 mmol/L [facility] Creatinine [Mass/Vol] 0.7 mg/dL 0.57 - 1.11 mg/dL [facility] GFR/1.73 sq M.predicted (S/P/Bld) [Vol rate/Area] - PINF [facility] Comment on above: Calculation based on the Chronic Kidney Disease Epidemiology Collaboration (CKD-EPI) equation refit without adjustment for race Glucose [Mass/Vol] 95 mg/dL 74 - 100 mg/dL [facility] Interpretation and review of laboratory results Abnormal [facility] Potassium [Moles/Vol] 4.8 mmol/L 3.5 - 5.1 mmol/L [facility] Comment on above: Plasma potassium stacey ues may be up to 0.5 mmol/L lower than serum values. Sodium [Moles/Vol] 143 mmol/L 136 - 145 mmol/L [facility] Urea nitrogen [Mass/Vol] 16 mg/dL 8 - 21 mg/dL [facility] CBC (HEMOGRAM)on 01-18-2025 Erythrocyte distribution width (RBC) [Ratio] 14.8 % Normal 11.5-15.0 [facility] Comment on above: Performed By: #### L AB294 ####Concrete Pourer: ERIKA ANGELO ([id number])[facility] ([facility])[address] [place] [address] Hematocrit (Bld) [Volume fraction] 37.2 % Normal 35.0-47.0 [facility] Comment on above: Performed By: #### L AB294 ####Concrete Pourer: ERIKA ANGELO ([id number])[facility] ([facility])[address] [place] [address] Hemoglobin (Bld) [Mass/Vol] 11.5 g/dL Low 11.7-16.0 [facility] Comment on above: Performed By: #### L AB294 ####Concrete Pourer: ERIKA ANGELO ([id number])[facility] ([facility])[address] [place] [address] MCH (RBC) [Entitic mass] 27.3 pg Normal 26.0-34.0 [facility] Comment on above: Performed By: #### L AB294 ####Concrete Pourer: ERIKA ANGELO ([id number])[facility])[address] [place] [address] MCHC 30.9 % Normal 30.5-36.0 [facility] Comment on above: Performed By: #### L AB294 ####Concrete Pourer: ERIKA ANGELO ([id number])[facility] ([facility])[address] [place] [address] MCV (RBC) [Entitic vol] 88.4 fL Normal 77.0-99.0 [facility] Comment on above: Performed By: #### L AB294 ####Concrete Pourer: ERIKA ANGELO ([id number])[facility])[address] [place] [address] Platelet mean volume (Bld) [Entitic vol] 10.3 fL Normal 9.0-12.7 [facility] Comment on above: Performed By: #### L AB294 ####Concrete Pourer: ERIKA ANGELO ([id number])[facility])[address] [place] [address] Platelets (Bld) [#/Vol] 299 10*3/uL Normal 140-440 [facility] Comment on above: Performed By: #### L AB294 ####Concrete Pourer: ERIKA ANGELO ([id number])[facility] ([facility])[address] [place] [address] RBC (Bld) [#/Vol] 4.21 10*6/uL Normal 3.80-5.20 [facility] Comment on above: Performed By: #### L AB294 ####Concrete Pourer: ERIKA ANGELO ([id number])[facility] ([facility])[address] [place] [address] WBC (Bld) [#/Vol] 7.1 10*3/uL Normal 3.6-10.7 [facility] Comment on above: Performed By: #### L AB294 ####Concrete Pourer: ERIKA ANGELO ([id number])[facility])[address] [place] [address] CBC panel Auto (Bld)on 01-18 Erythrocyte distribution width (RBC) [Ratio] 14.8 % 11.5 - 15.0 % [facility] Hematocrit (Bld) [Volume fraction] 37.2 % 35.0 - 47.0 % [facility] Hemoglobin (Bld) [Mass/Vol] 11.5 g/dL Low 11.7 - 16.0 g/dL [facility] Interpretation and review of laboratory results Abnormal [facility] MCH (RBC) [Entitic mass] 27.3 pg 26.0 - 34.0 pg [facility] MCHC (RBC) [Mass/Vol] 30.9 % 30.5 - 36.0 % [facility] MCV (RBC) [Entitic vol] 88.4 fL 77.0 - 99.0 fL [facility] Platelet mean volume (Bld) [Entitic vol] 10.3 fL 9.0 - 12.7 fL [facility] Platelets (Bld) [#/Vol] 299 10*3/uL 140 - 440 10*3/uL [facility] RBC (Bld) [#/Vol] 4.21 10*6/uL 3.80 - 5.20 10*6/uL [facility] WBC (Bld) [#/Vol] 7.1 10*3/uL 3.6 - 10.7 10*3/uL [facility] 30on 01-17-2025 30 Problem: Knowledge D eficit Goal: Patient/family/caregiver demonstrates understanding of disease process, treatment plan, medications, and discharge instructions Outcome: Progressing Problem: Potential for Compromised Skin Integrity Goal: Skin Integrity is Maintained or Improved Flowsheets (Taken 01/17/20252000) Skin integrity is maintained or improved: Assess and monitor skin integrity Collaborate with interdisciplinary team and initiate plans and interventions as needed Relieve pressure to bony prominences Keep skin clean and dry Encourage use of lotion/moisturizer on skin Monitor patient's hygiene practices Turn patient Identify patients at risk for skin breakdown on admission and per policy Avoid shearing Normal [facility] 30 Problem: Knowledge D eficit Goal: Patient/family/caregiver demonstrates understanding of disease process, treatment plan, medications, and discharge instructions Outcome: Progressing Problem: Potential for Compromised Skin Integrity Goal: Skin Integrity is Maintained or Improved Outcome: Progressing Goal: Nutritional status is improving Outcome: Progressing Problem: Urinary Incontinence Goal: Perineal skin integrity is maintained or improved Outcome: Progressing Normal [facility] 30 Problem: Knowledge D eficit Goal: Patient/family/caregiver demonstrates understanding of disease process, treatment plan, medications, and discharge instructions Outcome: Progressing Problem: Potential for Compromised Skin Integrity Goal: Skin Integrity is Maintained or Improved Outcome: Progressing Goal: Nutritional status is improving Outcome: Progressing Problem: Urinary Incontinence Goal: Perineal skin integrity is maintained or improved Outcome: Progressing Normal [facility] CBC W Auto Differential pane l (Bld)on 01-17-2025 Basophils (Bld) [#/Vol] 0 10*3/uL 0.0 - 0.2 10*3/uL [facility] Basophils/100 WBC (Bld) 0.5 % 0.0 - 2.0 % [facility] Eosinophils (Bld) [#/Vol] 0.1 10*3/uL 0.0 - 0.5 10*3/uL [facility] Eosinophils/100 WBC (Bld) 1.3 % 0.0 - 6.0 % [facility] Erythrocyte distribution width (RBC) [Ratio] 14.6 % 11.5 - 15.0 % [facility] Hematocrit (Bld) [Volume fraction] 40.1 % 35.0 - 47.0 % [facility] Hemoglobin (Bld) [Mass/Vol] 12.4 g/dL 11.7 - 16.0 g/dL [facility] Immature granulocytes (Bld) [#/Vol] 0 10*3/uL NINF - 0.1 10*3/uL [facility] Immature granulocytes/100 WBC (Bld) 0 % 0.0 - 2.0 % [facility] Interpretation and review of laboratory results Normal [facility] Lymphocytes (Bld) [#/Vol] 2.1 10*3/uL 1.0 - 4.3 10*3/uL [facility] Lymphocytes/100 WBC (Bld) 34.8 % 15.0 - 45.0 % [facility] MCH (RBC) [Entitic mass] 27.3 pg 26.0 - 34.0 pg [facility] MCHC (RBC) [Mass/Vol] 30.9 % 30.5 - 36.0 % [facility] MCV (RBC) [Entitic vol] 88.1 fL 77.0 - 99.0 fL [facility] Monocytes (Bld) [#/Vol] 0.4 10*3/uL 0.0 - 0.9 10*3/uL [facility] Monocytes/100 WBC (Bld) 6.9 % 5.0 - 13.0 % [facility] Neutrophils (Bld) [#/Vol] 3.4 10*3/uL 1.8 - 7.5 10*3/uL [facility] Neutrophils/100 WBC (Bld) 56.5 % 38.0 - 82.0 % [facility] Nucleated RBC/100 WBC (Bld) [Ratio] 0 % [facility] Platelet mean volume (Bld) [Entitic vol] 10.4 fL 9.0 - 12.7 fL [facility] Platelets (Bld) [#/Vol] 352 10*3/uL 140 - 440 10*3/uL [facility] RBC (Bld) [#/Vol] 4.55 10*6/uL 3.80 - 5.20 10*6/uL [facility] WBC (Bld) [#/Vol] 6 10*3/uL 3.6 - 10.7 10*3/uL [facility] CBC WITH AUTO DIFFERENTIALon 01-17-2025 Basophils (Bld) [#/Vol] 0.0 10*3/uL Normal 0.0-0.2 [facility] Comment on above: Performed By: #### L [id number] ####Concrete Pourer: ERIKA [id number])[facility])[address] [place] [address] Basophils/100 WBC (Bld) 0.5 % Normal 0.0-2.0 [facility] Comment on above: Performed By: #### L [id number] ####Concrete Pourer: ERIKA ANGELO ([phone])[facility])[address] [place] [address] Eosinophils (Bld) [#/Vol] 0.1 10*3/uL Normal 0.0-0.5 [facility] Comment on above: Performed By: #### L [id number] ####Concrete Pourer: ERIKA ANGELO ([phone])[address] Eosinophils/100 WBC (Bld) 1.3 % Normal 0.0-6.0 [facility] Comment on above: Performed By: #### L [id number] ####Concrete Pourer: ERIKA ANGELO ([phone])[facility])[address] [place] [address] Erythrocyte distribution width (RBC) [Ratio] 14.6 % Normal 11.5-15.0 [facility] Comment on above: Performed By: #### L [id number] ####Concrete Pourer: ERIKA ANGELO ([phone])[address] Hematocrit (Bld) [Volume fraction] 40.1 % Normal 35.0-47.0 [facility] Comment on above: Performed By: #### L [id number] ####Concrete Pourer: ERIKA ANGELO ([id number])[facility])[address] [place] [address] Hemoglobin (Bld) [Mass/Vol] 12.4 g/dL Normal 11.7-16.0 [facility] Comment on above: Performed By: #### L [id number] ####Concrete Pourer: ERIKA ANGELO ([phone])[facility] [address] IMMATURE GRANS % 0.0 % Normal 0.0-2.0 [facility] Comment on above: Performed By: #### L [id number] ####Concrete Pourer: ERIKA ANGELO ([phone])[facility])[address] [place] [address] IMMATURE GRANS ABSOLUTE 0.0 10*3/uL Normal <0.1 [facility] Comment on above: Performed By: #### L [id number] ####Concrete Pourer: ERIKA ANGELO ([phone])[facility])[address] [place] [address] Lymphocytes (Bld) [#/Vol] 2.1 10*3/uL Normal 1.0-4.3 [facility] Comment on above: Performed By: #### L [id number] ####Concrete Pourer: ERIKA ANGELO ([phone])[facility])[address] [place] [address] Lymphocytes/100 WBC (Bld) 34.8 % Normal 15.0-45.0 [facility] Comment on above: Performed By: #### L [id number] ####Concrete Pourer: ERIKA ANGELO ([phone])[facility])[address] [place] [address] MCH (RBC) [Entitic mass] 27.3 pg Normal 26.0-34.0 [facility] Comment on above: Performed By: #### L [id number] ####Concrete Pourer: ERIKA ANGELO ([phone])[facility])[address] [place] [address] MCHC 30.9 % Normal 30.5-36.0 [facility] Comment on above: Performed By: #### L [id number] ####Concrete Pourer: ERIKA ANGELO ([phone])[facility])[address] [place] [address] MCV (RBC) [Entitic vol] 88.1 fL Normal 77.0-99.0 [facility] Comment on above: Performed By: #### L [id number] ####Concrete Pourer: ERIKA ANGELO ([id number])[facility] ([facility])[address] [place] [address] Monocytes (Bld) [#/Vol] 0.4 10*3/uL Normal 0.0-0.9 [facility] Comment on above: Performed By: #### L [id number] ####Concrete Pourer: ERIKA ANGELO ([id number])[facility] ([facility])[address] [place] [address] Monocytes/100 WBC (Bld) 6.9 % Normal 5.0-13.0 [facility] Comment on above: Performed By: #### L [id number] ####Concrete Pourer: ERIKA ANGELO ([phone])[facility])[address] [place] [address] NEUTROPHILS ABSOLUTE 3.4 10*3/uL Normal 1.8-7.5 [facility] Comment on above: Performed By: #### L [id number] ####Concrete Pourer: ERIKA ANGELO ([id number])[facility] ([facility])[address] [place] [address] Neutrophils/100 WBC (Bld) 56.5 % Normal 38.0-82.0 [facility] Comment on above: Performed By: #### L [id number] ####Concrete Pourer: ERIKA ANGELO ([id number])[facility])[address] [place] [address] NRBC 0.0 /100 WBCs Normal 0.0-2.0 [facility] Comment on above: Performed By: #### L [id number] ####Concrete Pourer: ERIKA ANGELO ([id number])[facility])[address] [place] [address] Platelet mean volume (Bld) [Entitic vol] 10.4 fL Normal 9.0-12.7 [facility] Comment on above: Performed By: #### L [id number] ####Concrete Pourer: ERIKA ANGELO ([phone])[facility] ([facility])[address] [place] [address] Platelets (Bld) [#/Vol] 352 10*3/uL Normal 140-440 [facility] Comment on above: Performed By: #### L [id number] ####Concrete Pourer: ERIKA ANGELO ([id number])[facility] ([facility])[address] [place] [address] RBC (Bld) [#/Vol] 4.55 10*6/uL Normal 3.80-5.20 [facility] Comment on above: Performed By: #### L [id number] ####Concrete Pourer: ERIKA ANGELO ([id number])[facility] ([facility])[address] [place] [address] WBC (Bld) [#/Vol] 6.0 10*3/uL Normal 3.6-10.7 [facility] Comment on above: Performed By: #### L [id number] ####Concrete Pourer: ERIKA ANGELO ([phone])[facility] ([facility])[address] [place] [address] COMPREHENSIVE METABOLIC PANE Patricio 01-17-2025 Albumin [Mass/Vol] 2.8 g/dL Low 3.5-5.0 [facility] Comment on above: Performed By: #### L [id number], [id number] ####Concrete Pourer: ERIKA ANGELO ([phone])[facility] ([facility])[address] [place] [address] ALP [Catalytic activity/Vol] 125 U/L Normal 40-150 [facility] Comment on above: Performed By: #### L [id number], [id number] ####Concrete Pourer: ERIKA ANGELO ([id number])[facility])[address] [place] [address] ALT [Catalytic activity/Vol] 16 U/L Normal <30 [facility] Comment on above: Performed By: #### L AB17, [id number] ####Concrete Pourer: ERIKA ANGELO ([phone])[facility])[address] [place] [address] Anion gap [Moles/Vol] 7 mmol/L Normal 3-13 [facility] Comment on above: Performed By: #### L AB17, [id number] ####Concrete Pourer: ERIKA ANGELO ([id number])[facility] ([facility])[address] [place] [address] AST [Catalytic activity/Vol] 21 U/L Normal <34 [facility] Comment on above: Performed By: #### L [id number], [id number] ####Concrete Pourer: ERIKA ANGELO ([phone])[facility] ([facility])[address] [place] [address] Bilirubin [Mass/Vol] 0.2 mg/dL Normal <1.2 [facility] Comment on above: Performed By: #### L [id number], [id number] ####Concrete Pourer: ERIKA ANGELO ([id number])[facility] ([facility])[address] [place] [address] Calcium [Mass/Vol] 9.0 mg/dL Normal 8.4-10.2 [facility] Comment on above: Performed By: #### L [id number], [id number] ####Concrete Pourer: ERIKA ANGELO ([id number])[facility] ([facility])[address] [place] [address] [place] Chloride [Moles/Vol] 111 mmol/L High 98-107 [facility] Comment on above: Performed By: #### L AB17, [id number] ####Concrete Pourer: ERIKA ANGELO ([id number])[facility] ([facility])[address] [place] [address] [place] CO2 [Moles/Vol] 23 mmol/L Normal 22-29 [facility] Comment on above: Performed By: #### L AB17, [id number] ####Concrete Pourer: REIKA ANGELO ([id number])[facility] ([facility])[address] [place] [address] Creatinine [Mass/Vol] 0.67 mg/dL Normal 0.57-1.11 [facility] Comment on above: Performed By: #### L AB17, [id number] ####Concrete Pourer: ERIKA ANGELO ([phone])[facility])[address] [place] [address] GLOMERULAR FILTRATION RATE ML/MIN/1.73 SQ M.PREDICTED >90.0 Normal >60.0 [facility] Comment on above: Result Comment: Calc ulation based on the Chronic Kidney Disease Epidemiology Collaboration (CKD-EPI) equation refit without adjustment for race Performed By: #### L AB17, [id number] ####Concrete Pourer: ERIKA ANGELO ([id number])[facility] ([facility])[address] [place] [address] Glucose [Mass/Vol] 98 mg/dL Normal 74-100 [facility] Comment on above: Performed By: #### L AB17, [id number] ####Concrete Pourer: ERIKA ANGELO ([phone])[facility])[address] [place] [address] Potassium [Moles/Vol] 3.4 mmol/L Low 3.5-5.1 [facility] Comment on above: Result Comment: [facility] potassium values may be up to 0.5 mmol/L lower than serum values. Performed By: #### L AB17, [id number] ####Concrete Pourer: ERIKA ANGELO ([phone])[facility])[address] [place] [address] [place] Protein [Mass/Vol] 7.6 g/dL Normal 6.4-8.3 [facility] Comment on above: Performed By: #### L AB17, [id number] ####Concrete Pourer: ERIKA ANGELO ([id number])[facility])[address] [place] [address] [place] Sodium [Moles/Vol] 141 mmol/L Normal 136-145 [facility] Comment on above: Performed By: #### L AB17, [id number] ####Concrete Pourer: ERIKA ANGELO ([phone])[facility])[address] [place] [address] [place] Urea nitrogen [Mass/Vol] 13 mg/dL Normal 8-21 [facility] Comment on above: Performed By: #### L AB17, [id number] ####Concrete Pourer: ERIKA ANGELO ([id number])[facility] ([facility] Comprehensive metabolic 1998 panelon 01-17-2025 Albumin [Mass/Vol] 2.8 g/dL Low 3.5 - 5.0 g/dL [facility] ALP [Catalytic activity/Vol] 125 U/L 40 - 150 U/L [facility] ALT [Catalytic activity/Vol] 16 U/L NINF - 30 U/L [facility] Anion gap [Moles/Vol] 7 mmol/L 3 - 13 mmol/L [facility] AST [Catalytic activity/Vol] 21 U/L NINF - 34 U/L [facility] Bilirubin [Mass/Vol] 0.2 mg/dL NINF - 1.2 mg/dL [facility] Calcium [Mass/Vol] 9 mg/dL 8.4 - 10. 2 mg/dL [facility] Chloride [Moles/Vol] 111 mmol/L High 98 - 10 7 mmol/L [facility] CO2 [Moles/Vol] 23 mmol/L 22 - 29 mmol/L [facility] Creatinine [Mass/Vol] 0.67 mg/dL 0.57 - 1.11 mg/dL [facility] GFR/1.73 sq M.predicted (S/P/Bld) [Vol rate/Area] - PINF [facility] Comment on above: Calculation based on the Chronic Kidney Disease Epidemiology Collaboration (CKD-EPI) equation refit without adjustment for race Glucose [Mass/Vol] 98 mg/dL 74 - 100 mg/dL [facility] Interpretation and review of laboratory results Abnormal [facility] Potassium [Moles/Vol] 3.4 mmol/L Low 3.5 - 5.1 mmol/L [facility] Comment on above: Plasma potassium stacey ues may be up to 0.5 mmol/L lower than serum values. Protein [Mass/Vol] 7.6 g/dL 6.4 - 8.3 g/dL [facility] Sodium [Moles/Vol] 141 mmol/L 136 - 145 mmol/L [facility] Urea nitrogen [Mass/Vol] 13 mg/dL 8 - 21 mg/dL [facility] - Chemistry and C hemistry - challengeon 01-17-2025 Magnesium [Mass/Vol] 2.2 mg/dL 1.6 - 2 .6 mg/dL [facility] MAGNESIUMon 01-17-2025 Magnesium [Mass/Vol] 2.2 mg/dL Normal 1.6-2.6 [facility] Comment on above: Result Comment: BRIANA R COMMENTS: Higher values can be expected in females during menses. Performed By: #### L AB17, [id number] ####Concrete Pourer: ERIKA ANGELO ([phone])[facility] ([facility])[address] [place] [address] Magnesium [Mass/Vol]on 01-17 Interpretation and review of laboratory results Normal [facility] Higher values can be expected in females during menses. [facility] Nursing Noteon 01-17-2025 Nursing Note Called [facility] Emma houston to request an updated patient medication list to be faxed to [phone] [facility] Wound Cultureon 01-17-2025 WC UNKNOWN LOCATION OF WOUND #3 Clinical correlation necessary, Possible skin contamination. Wound Culture Copy of report sent to Infection Control Printer MS#[id number] 01/16/25 0805 CRISTHIAN. Wound Culture RESULTS CALLED TO SANCTUARY ANNALISA 01/16/25 0830 [place]. REPORT READ BACK BY ANNALISA. ESBL Klebsiella pneumoniae pne Amount Growth 2+ Providencia stuartii Providencia stuartii SCAP Amount Growth 1+ Staphylococcus capitis Amikacin Islt DARIO 4 Ampicillin Islt DARIO >=32 R Ampicillin+Sulbac Islt DARIO >=32 Cefepime Islt DARIO >=32 R Eravacycline Islt DARIO 0.25 S cefTRIAXone Islt DARIO >=64 R Ciprofloxacin Islt DARIO >=4 R B-Lactamase Extended Susc Islt POS Gentamicin Islt DARIO <=1 S Imipenem Islt DARIO <=0.25 S levoFLOXacin Islt DARIO 4 R Meropenem Islt DARIO <=0.25 S Pip+Tazo Islt DARIO 32 R Tobramycin Islt DARIO 8 R TMP SMX Islt DARIO >=320 R Providencia stuartii: REACTION Ampicillin Islt DARIO >=32 R Ampicillin+Sulbac Islt DARIO 16 I Cefepime Islt DARIO <=0.12 cefTRIAXone Islt DARIO <=0.25 S Ciprofloxacin Islt DARIO >=4 R Gentamicin Islt DARIO R levoFLOXacin Islt DARIO 4 R Meropenem Islt DARIO 1 S Pip+Tazo Islt DARIO <=4 S TMP SMX Islt DARIO >=320 R Staphylococcus capitis: REACTION Doxycycline Islt DARIO <=0.5 S Clindamycin Islt DARIO R Erythromycin Islt DARIO Gentamicin Islt DARIO <=0.5 S Oxacillin Susc Islt <=0.25 S Tetracycline Islt DARIO 2 S TMP SMX Islt DARIO <=10 S Vancomycin Islt DARIO 1 S Normal [facility] Comment on above: Performed By: #### L 500.4050, L100.0500 #### [facility] [address] [place], [address] 30on 01-16-2025 30 Problem: Knowledge D eficit Goal: Patient/family/caregiver demonstrates understanding of disease process, treatment plan, medications, and discharge instructions Outcome: Progressing Problem: Potential for Compromised Skin Integrity Goal: Skin Integrity is Maintained or Improved Outcome: Progressing Goal: Nutritional status is improving Outcome: Progressing Problem: Urinary Incontinence Goal: Perineal skin integrity is maintained or improved Outcome: Progressing [facility] [id number] 01-16-2025 [id number] Pt adm to hosp from [facility] w AMS, Hypotension, dehydration, N/V. BP stable. HOTEL ATTENDANT tasked to send return referral to SNF. Met w pt, A+O today. Voice is very weak. Soft. Called Legal Guardian,Leola Chappell, , updates given. Pt is a Quad and is Bed bound. CM to follow for DC needs. [facility] CBC W Auto Differential pane l (Bld)Ordered By: Celia Judge on 01-16-2025 Basophils (Bld) [#/Vol] 0 10*3/uL 0.0 - 0.2 10*3/uL [facility] Basophils/100 WBC (Bld) 0.6 % 0.0 - 2.0 % [facility] Eosinophils (Bld) [#/Vol] 0.1 10*3/uL 0.0 - 0.5 10*3/uL [facility] Eosinophils/100 WBC (Bld) 1.7 % 0.0 - 6.0 % [facility] Erythrocyte distribution width (RBC) [Ratio] 14.7 % 11.5 - 15.0 % [facility] Hematocrit (Bld) [Volume fraction] 34.6 % Low 35.0 - 47.0 % [facility] Hemoglobin (Bld) [Mass/Vol] 10.8 g/dL Low 11.7 - 16.0 g/dL [facility] Immature granulocytes (Bld) [#/Vol] 0 10*3/uL NINF - 0.1 10*3/uL [facility] Immature granulocytes/100 WBC (Bld) 0.4 % 0.0 - 2.0 % [facility] Interpretation and review of laboratory results Abnormal [facility] Lymphocytes (Bld) [#/Vol] 2 10*3/uL 1.0 - 4.3 10*3/uL [facility] Lymphocytes/100 WBC (Bld) 38.8 % 15.0 - 45.0 % [facility] MCH (RBC) [Entitic mass] 27.4 pg 26.0 - 34.0 pg [facility] MCHC (RBC) [Mass/Vol] 31.2 % 30.5 - 36.0 % [facility] MCV (RBC) [Entitic vol] 87.8 fL 77.0 - 99.0 fL [facility] Monocytes (Bld) [#/Vol] 0.3 10*3/uL 0.0 - 0.9 10*3/uL [facility] Monocytes/100 WBC (Bld) 5.8 % 5.0 - 13.0 % [facility] Neutrophils (Bld) [#/Vol] 2.8 10*3/uL 1.8 - 7.5 10*3/uL [facility] Neutrophils/100 WBC (Bld) 52.7 % 38.0 - 82.0 % [facility] Nucleated RBC/100 WBC (Bld) [Ratio] 0 % [facility] Platelet mean volume (Bld) [Entitic vol] 10.5 fL 9.0 - 12.7 fL [facility] Platelets (Bld) [#/Vol] 327 10*3/uL 140 - 440 10*3/uL [facility] RBC (Bld) [#/Vol] 3.94 10*6/uL 3.80 - 5.20 10*6/uL [facility] WBC (Bld) [#/Vol] 5.2 10*3/uL 3.6 - 10.7 10*3/uL [facility] CBC WITH AUTO DIFFERENTIALon 01-16-2025 Basophils (Bld) [#/Vol] 0.0 10*3/uL Normal 0.0-0.2 [facility] Comment on above: Performed By: #### L [id number] ####Concrete Pourer: ERIKA ANGELO ([phone])[facility])[address] [place] [address] Basophils/100 WBC (Bld) 0.6 % Normal 0.0-2.0 [facility] Comment on above: Performed By: #### L [id number] ####Concrete Pourer: ERIKA ANGELO ([phone])[facility] ([facility])[address] [place] [address] Eosinophils (Bld) [#/Vol] 0.1 10*3/uL Normal 0.0-0.5 [facility] Comment on above: Performed By: #### L [id number] ####Concrete Pourer: ERIKA ANGELO ([id number])[facility])[address] [place] [address] Eosinophils/100 WBC (Bld) 1.7 % Normal 0.0-6.0 [facility] Comment on above: Performed By: #### L [id number] ####Concrete Pourer: ERIKA ANGELO ([phone])[facility])[address] [place] [address] Erythrocyte distribution width (RBC) [Ratio] 14.7 % Normal 11.5-15.0 [facility] Comment on above: Performed By: #### L [id number] ####Concrete Pourer: ERIKA ANGELO ([phone])[facility] ([facility])[address] [place] [address] [place] Hematocrit (Bld) [Volume fraction] 34.6 % Low 35.0-47.0 [facility] Comment on above: Performed By: #### L [id number] ####Concrete Pourer: ERIKA ANGELO ([phone])[facility])[address] [place] [address] Hemoglobin (Bld) [Mass/Vol] 10.8 g/dL Low 11.7-16.0 [facility] Comment on above: Performed By: #### L [id number] ####Concrete Pourer: ERIKA ANGELO ([id number])[facility])[address] [place] [address] IMMATURE GRANS % 0.4 % Normal 0.0-2.0 [facility] Comment on above: Performed By: #### L [id number] ####Concrete Pourer: ERIKA ANGELO ([phone])[facility])[address] [place] [address] IMMATURE GRANS ABSOLUTE 0.0 10*3/uL Normal <0.1 [facility] Comment on above: Performed By: #### L [id number] ####Concrete Pourer: ERIKA ANGELO ([phone])[facility])[address] [place] [address] Lymphocytes (Bld) [#/Vol] 2.0 10*3/uL Normal 1.0-4.3 [facility] Comment on above: Performed By: #### L [id number] ####Concrete Pourer: ERIKA ANGELO ([phone])[facility])[address] [place] [address] [place] Lymphocytes/100 WBC (Bld) 38.8 % Normal 15.0-45.0 [facility] Comment on above: Performed By: #### L [id number] ####Concrete Pourer: ERIKA ANGELO ([id number])[facility])[address] [place] [address] MCH (RBC) [Entitic mass] 27.4 pg Normal 26.0-34.0 [facility] Comment on above: Performed By: #### L [id number] ####Concrete Pourer: ERIKA ANGELO ([id number])[facility])[address] [place] [address] MCHC 31.2 % Normal 30.5-36.0 [facility] Comment on above: Performed By: #### L [id number] ####Concrete Pourer: ERIKA ANGELO ([id number])[facility])[address] [place] [address] MCV (RBC) [Entitic vol] 87.8 fL Normal 77.0-99.0 [facility] Comment on above: Performed By: #### L [id number] ####Concrete Pourer: ERIKA ANGELO ([id number])[facility])[address] [place] [address] Monocytes (Bld) [#/Vol] 0.3 10*3/uL Normal 0.0-0.9 [facility] Comment on above: Performed By: #### L [id number] ####Concrete Pourer: ERIKA ANGELO ([phone])[facility])[address] [place] [address] Monocytes/100 WBC (Bld) 5.8 % Normal 5.0-13.0 [facility] Comment on above: Performed By: #### L [id number] ####Concrete Pourer: ERIKA ANGELO ([phone])[facility])[address] [place] [address] NEUTROPHILS ABSOLUTE 2.8 10*3/uL Normal 1.8-7.5 [facility] Comment on above: Performed By: #### L [id number] ####Concrete Pourer: ERIKA ANGELO ([id number])[facility])[address] [place] [address] Neutrophils/100 WBC (Bld) 52.7 % Normal 38.0-82.0 [facility] Comment on above: Performed By: #### L [id number] ####Concrete Pourer: ERIKA ANGELO ([id number])[facility] [place] [address] NRBC 0.0 /100 WBCs Normal 0.0-2.0 [facility] Comment on above: Performed By: #### L [id number] ####Concrete Pourer: ERIKA ANGELO ([id number])[facility])[address] [place] [address] Platelet mean volume (Bld) [Entitic vol] 10.5 fL Normal 9.0-12.7 [facility] Comment on above: Performed By: #### L [id number] ####Concrete Pourer: ERIKA ANGELO ([id number])[facility])[address] [place] [address] Platelets (Bld) [#/Vol] 327 10*3/uL Normal 140-440 [facility] Comment on above: Performed By: #### L [id number] ####Concrete Pourer: ERIKA ANGELO ([id number])[facility])[address] [place] [address] RBC (Bld) [#/Vol] 3.94 10*6/uL Normal 3.80-5.20 [facility] Comment on above: Performed By: #### L [id number] ####Concrete Pourer: ERIKA ANGELO ([phone])[facility] HE[facility])[address] [place] [address] WBC (Bld) [#/Vol] 5.2 10*3/uL Normal 3.6-10.7 [facility] Comment on above: Performed By: #### L [id number] ####Concrete Pourer: ERIKA ANGELO ([phone])[facility])[address] [place] [address] COMPREHENSIVE METABOLIC PANE Patricio 01-16-2025 Albumin [Mass/Vol] 2.7 g/dL Low 3.5-5.0 [facility] Comment on above: Performed By: #### L [id number], LAB17 ####Concrete Pourer: ERIKA ANGELO ([phone])[facility])[address] [place] [address] ALP [Catalytic activity/Vol] 127 U/L Normal 40-150 [facility] Comment on above: Performed By: #### L AB103, LAB17 ####Concrete Pourer: ERIKA ANGELO ([phone])[facility] ([facility])[address] [place] [address] ALT [Catalytic activity/Vol] 14 U/L Normal <30 [facility] Comment on above: Performed By: #### L AB103, LAB17 ####Concrete Pourer: ERIKA ANGELO ([phone])[facility] ([facility])[address] [place] [address] Anion gap [Moles/Vol] 8 mmol/L Normal 3-13 [facility] Comment on above: Performed By: #### L FRANCINE, LAB17 ####Concrete Pourer: ERIKA ANGELO ([phone])[facility] ([facility])[address] [place] [address] AST [Catalytic activity/Vol] 18 U/L Normal <34 [facility] Comment on above: Performed By: #### L ABBriseida, LAB17 ####Concrete Pourer: ERIKA ANGELO ([phone])[facility] ([facility])[address] [place] [address] Bilirubin [Mass/Vol] 0.2 mg/dL Normal <1.2 [facility] Comment on above: Performed By: #### L FRANCINE, LAB17 ####Concrete Pourer: ERIKA ANGELO ([phone])[facility])[address] [place] [address] Calcium [Mass/Vol] 8.8 mg/dL Normal 8.4-10.2 [facility] Comment on above: Performed By: #### L AB103, LAB17 ####Concrete Pourer: ERIKA ANGELO ([phone])[facility])[address] [place] [address] Chloride [Moles/Vol] 112 mmol/L High 98-107 [facility] Comment on above: Performed By: #### L AB103, LAB17 ####Concrete Pourer: ERIKA ANGELO ([phone])[facility])[address] [place] [address] CO2 [Moles/Vol] 21 mmol/L Low 22-29 [facility] Comment on above: Performed By: #### L AB103, LAB17 ####Concrete Pourer: ERIKA ANGELO ([phone])[facility])[address] [place] [address] Creatinine [Mass/Vol] 0.70 mg/dL Normal 0.57-1.11 [facility] Comment on above: Performed By: #### L AB103, LAB17 ####Concrete Pourer: ERIKA ANGELO ([phone])[facility])[address] [place] [address] GLOMERULAR FILTRATION RATE ML/MIN/1.73 SQ M.PREDICTED >90.0 Normal >60.0 [facility] Comment on above: Result Comment: Calc ulation based on the Chronic Kidney Disease Epidemiology Collaboration (CKD-EPI) equation refit without adjustment for race Performed By: #### L AB103, LAB17 ####Concrete Pourer: ERIKA ANGELO ([phone])[facility])[address] [place] [address] Glucose [Mass/Vol] 100 mg/dL Normal 74-100 [facility] Comment on above: Performed By: #### L AB103, LAB17 ####Concrete Pourer: ERIKA ANGELO ([phone])[facility])[address] [place] [address] Potassium [Moles/Vol] 3.5 mmol/L Normal 3.5-5.1 [facility] Comment on above: Result Comment: [facility] potassium values may be up to 0.5 mmol/L lower than serum values. Performed By: #### L AB103, LAB17 ####Concrete Pourer: ERIKA ANGELO ([phone])[facility])[address] [place] [address] Protein [Mass/Vol] 7.0 g/dL Normal 6.4-8.3 [facility] Comment on above: Performed By: #### L AB103, LAB17 ####Concrete Pourer: ERIKA ANGELO ([phone])[facility])[address] [place] [address] Sodium [Moles/Vol] 141 mmol/L Normal 136-145 [facility] Comment on above: Performed By: #### L AB103, LAB17 ####Concrete Pourer: ERIKA ANGELO ([phone])[facility] ([facility])[address] [place] [address] Urea nitrogen [Mass/Vol] 14 mg/dL Normal 8-21 [facility] Comment on above: Performed By: #### Hemal [id number], LAB17 ####Concrete Pourer: ERIKA ANGELO ([phone])[facility])[address] [place] [address] Comprehensive metabolic 1998 panelon 01-16-2025 Albumin [Mass/Vol] 2.7 g/dL Low 3.5 - 5.0 g/dL [facility] ALP [Catalytic activity/Vol] 127 U/L 40 - 150 U/L [facility] ALT [Catalytic activity/Vol] 14 [facility] Anion gap [Moles/Vol] 8 mmol/L 3 - 13 mmol/L [facility] AST [Catalytic activity/Vol] 18 U/L [facility]/L [facility] Bilirubin [Mass/Vol] 0.2 mg/dL NINF - 1.2 mg/dL [facility] Calcium [Mass/Vol] 8.8 mg/dL 8.4 - 10. 2 mg/dL [facility] Chloride [Moles/Vol] 112 mmol/L High 98 - 10 7 mmol/L [facility] CO2 [Moles/Vol] 21 mmol/L Low 22 - 29 mmol/L [facility] Creatinine [Mass/Vol] 0.7 mg/dL 0.57 - 1.11 mg/dL [facility] GFR/1.73 sq M.predicted (S/P/Bld) [Vol rate/Area] - PINF [facility] Comment on above: Calculation based on the Chronic Kidney Disease Epidemiology Collaboration (CKD-EPI) equation refit without adjustment for race Glucose [Mass/Vol] 100 mg/dL 74 - 100 mg/dL [facility] Interpretation and review of laboratory results Abnormal [facility] Potassium [Moles/Vol] 3.5 mmol/L 3.5 - 5.1 mmol/L [facility] Comment on above: Plasma potassium stacey ues may be up to 0.5 mmol/L lower than serum values. Protein [Mass/Vol] 7 g/dL 6.4 - 8.3 g/dL [facility] Sodium [Moles/Vol] 141 mmol/L 136 - 145 mmol/L [facility] Urea nitrogen [Mass/Vol] 14 mg/dL 8 - 21 mg/dL [facility] Laboratory - Chemistry and C hemistry - challengeon 01-16-2025 Magnesium [Mass/Vol] 2.2 mg/dL 1.6 - 2 .6 mg/dL [facility] MAGNESIUMon 01-16-2025 Magnesium [Mass/Vol] 2.2 mg/dL Normal 1.6-2.6 [facility] Comment on above: Result Comment: BRIANA Cummings COMMENTS: Higher values can be expected in females during menses. Performed By: #### L AB103, LAB17 ####Concrete Pourer: ERIKA ANGELO ([phone])[address] Magnesium [Mass/Vol]on 01-16 Interpretation and review of laboratory results Normal [facility] Higher values can be expected in females during menses. [facility] Progress Noteon 01-16-2025 Progress Note Nutrition rescreen completed. Patient referred to the Dietitian. Pressure injury. Normal [facility] CBC W Auto Differential pane l (Bld)Ordered By: Flip Kimball on 01-15-2025 Basophils (Bld) [#/Vol] 0 10*3/uL 0.0 - 0.2 10*3/uL [facility] Basophils/100 WBC (Bld) 0.6 % 0.0 - 2.0 % [facility] Eosinophils (Bld) [#/Vol] 0.1 10*3/uL 0.0 - 0.5 10*3/uL [facility] Eosinophils/100 WBC (Bld) 1.2 % 0.0 - 6.0 % [facility] Erythrocyte distribution width (RBC) [Ratio] 14.7 % 11.5 - 15.0 % [facility] Hematocrit (Bld) [Volume fraction] 37 % 35.0 - 47.0 % [facility] Hemoglobin (Bld) [Mass/Vol] 11.4 g/dL Low 11.7 - 16.0 g/dL [facility] Immature granulocytes (Bld) [#/Vol] 0 10*3/uL NINF - 0.1 10*3/uL [facility] Immature granulocytes/100 WBC (Bld) 0.3 % 0.0 - 2.0 % [facility] Interpretation and review of laboratory results Abnormal [facility] Lymphocytes (Bld) [#/Vol] 1.6 10*3/uL 1.0 - 4.3 10*3/uL [facility] Lymphocytes/100 WBC (Bld) 24.2 % 15.0 - 45.0 % [facility] MCH (RBC) [Entitic mass] 27.5 pg 26.0 - 34.0 pg [facility] MCHC (RBC) [Mass/Vol] 30.8 % 30.5 - 36.0 % [facility] MCV (RBC) [Entitic vol] 89.2 fL 77.0 - 99.0 fL [facility] Monocytes (Bld) [#/Vol] 0.4 10*3/uL 0.0 - 0.9 10*3/uL [facility] Monocytes/100 WBC (Bld) 6.7 % 5.0 - 13.0 % [facility] Neutrophils (Bld) [#/Vol] 4.4 10*3/uL 1.8 - 7.5 10*3/uL [facility] Neutrophils/100 WBC (Bld) 67 % 38.0 - 82.0 % [facility] Nucleated RBC/100 WBC (Bld) [Ratio] 0 % [facility] Platelet mean volume (Bld) [Entitic vol] 10.4 fL 9.0 - 12.7 fL [facility] Platelets (Bld) [#/Vol] 309 10*3/uL 140 - 440 10*3/uL [facility] RBC (Bld) [#/Vol] 4.15 10*6/uL 3.80 - 5.20 10*6/uL [facility] WBC (Bld) [#/Vol] 6.6 10*3/uL 3.6 - 10.7 10*3/uL [facility] CBC WITH AUTO DIFFERENTIALon 01-15-2025 Basophils (Bld) [#/Vol] 0.0 10*3/uL Normal 0.0-0.2 [facility] Comment on above: Performed By: #### L [id number] ####Concrete Pourer: ERIKA ANGELO ([phone])[facility])[address] [place] [address] Basophils/100 WBC (Bld) 0.6 % Normal 0.0-2.0 [facility] Comment on above: Performed By: #### L [id number] ####Concrete Pourer: ERIKA ANGELO ([phone])[facility])[address] [place] [address] Eosinophils (Bld) [#/Vol] 0.1 10*3/uL Normal 0.0-0.5 [facility] Comment on above: Performed By: #### L [id number] ####Concrete Pourer: ERIKA ANGELO ([phone])[facility])[address] [place] [address] Eosinophils/100 WBC (Bld) 1.2 % Normal 0.0-6.0 [facility] Comment on above: Performed By: #### L [id number] ####Concrete Pourer: ERIKA ANGELO ([phone])[facility])[address] [place] [address] Erythrocyte distribution width (RBC) [Ratio] 14.7 % Normal 11.5-15.0 [facility] Comment on above: Performed By: #### L [id number] ####Concrete Pourer: ERIKA ANGELO ([phone])[address] Hematocrit (Bld) [Volume fraction] 37.0 % Normal 35.0-47.0 [facility] Comment on above: Performed By: #### L [id number] ####Concrete Pourer: ERIKA [id number])[facility])[address] [place] [address] Hemoglobin (Bld) [Mass/Vol] 11.4 g/dL Low 11.7-16.0 [facility] Comment on above: Performed By: #### L [id number] ####Concrete Pourer: ERIKA ANGELO ([phone])[facility])[address] [place] [address] IMMATURE GRANS % 0.3 % Normal 0.0-2.0 [facility] Comment on above: Performed By: #### L [id number] ####Concrete Pourer: ERIKA ANGELO ([phone])[facility])[address] [place] [address] IMMATURE GRANS ABSOLUTE 0.0 10*3/uL Normal <0.1 [facility] Comment on above: Performed By: #### L [id number] ####Concrete Pourer: ERIKA ANGELO ([phone])[facility])[address] [place] [address] Lymphocytes (Bld) [#/Vol] 1.6 10*3/uL Normal 1.0-4.3 [facility] Comment on above: Performed By: #### L [id number] ####Concrete Pourer: ERIKA ANGELO ([phone])[facility])[address] [place] [address] Lymphocytes/100 WBC (Bld) 24.2 % Normal 15.0-45.0 [facility] Comment on above: Performed By: #### L [id number] ####Concrete Pourer: ERIKA ANGELO ([phone])[facility])[address] [place] [address] MCH (RBC) [Entitic mass] 27.5 pg Normal 26.0-34.0 [facility] Comment on above: Performed By: #### L [id number] ####Concrete Pourer: ERIKA ANGELO ([phone])[facility])[address] [place] [address] MCHC 30.8 % Normal 30.5-36.0 [facility] Comment on above: Performed By: #### L [id number] ####Concrete Pourer: ERIKA ANGELO ([phone])[facility])[address] [place] [address] MCV (RBC) [Entitic vol] 89.2 fL Normal 77.0-99.0 [facility] Comment on above: Performed By: #### L [id number] ####Concrete Pourer: ERIKA ANGELO ([phone])[facility])[address] [place] [address] Monocytes (Bld) [#/Vol] 0.4 10*3/uL Normal 0.0-0.9 [facility] Comment on above: Performed By: #### L [id number] ####Concrete Pourer: ERIKA ANGELO ([phone])[facility])[address] [place] [address] Monocytes/100 WBC (Bld) 6.7 % Normal 5.0-13.0 [facility] Comment on above: Performed By: #### L [id number] ####Concrete Pourer: ERIKA ANGELO ([phone])[facility])[address] [place] [address] NEUTROPHILS ABSOLUTE 4.4 10*3/uL Normal 1.8-7.5 [facility] Comment on above: Performed By: #### L [id number] ####Concrete Pourer: ERIKA ANGELO ([phone])[facility])[address] [place] [address] Neutrophils/100 WBC (Bld) 67.0 % Normal 38.0-82.0 [facility] Comment on above: Performed By: #### L [id number] ####Concrete Pourer: ERIKA ANGELO ([phone])[facility])[address] [place] [address] NRBC 0.0 /100 WBCs Normal 0.0-2.0 [facility] Comment on above: Performed By: #### L [id number] ####Concrete Pourer: ERIKA ANGELO ([phone])[facility] ([facility])[address] [place] [address] Platelet mean volume (Bld) [Entitic vol] 10.4 fL Normal 9.0-12.7 [facility] Comment on above: Performed By: #### L [id number] ####Concrete Pourer: ERIKA ANGELO ([phone])[facility] ([facility])[address] [place] [address] Platelets (Bld) [#/Vol] 309 10*3/uL Normal 140-440 [facility] Comment on above: Performed By: #### L [id number] ####Concrete Pourer: ERIKA ANGELO ([phone])[facility] ([facility])[address] [place] [address] RBC (Bld) [#/Vol] 4.15 10*6/uL Normal 3.80-5.20 [facility] Comment on above: Performed By: #### L [id number] ####Concrete Pourer: ERIKA ANGELO ([phone])[facility] ([facility])[address] [place] [address] WBC (Bld) [#/Vol] 6.6 10*3/uL Normal 3.6-10.7 [facility] Comment on above: Performed By: #### L [id number] ####Concrete Pourer: ERIKA ANGELO ([phone])[facility] ([facility])[address] [place] [address] COMPREHENSIVE METABOLIC PANE Patricio 01-15-2025 Albumin [Mass/Vol] 2.7 g/dL Low 3.5-5.0 [facility] Comment on above: Performed By: #### L [id number] ####Concrete Pourer: ERIKA ANGELO ([phone])[facility])[address] [place] [address] ALP [Catalytic activity/Vol] 116 U/L Normal 40-150 [facility] Comment on above: Performed By: #### L [id number] ####Concrete Pourer: ERIKA ANGELO ([phone])[facility] ([facility])[address] [place] [address] ALT [Catalytic activity/Vol] 18 U/L Normal <30 [facility] Comment on above: Performed By: #### L [id number] ####Concrete Pourer: ERIKA ANGELO ([phone])[facility] ([facility])[address] [place] [address] Anion gap [Moles/Vol] 6 mmol/L Normal 3-13 [facility] Comment on above: Performed By: #### L [id number] ####Concrete Pourer: ERIKA ANGELO ([phone])[facility] ([facility])[address] [place] [address] AST [Catalytic activity/Vol] 24 U/L Normal <34 [facility] Comment on above: Performed By: #### L [id number] ####Concrete Pourer: ERIKA ANGELO ([phone])[facility] ([facility])[address] [place] [address] Bilirubin [Mass/Vol] 0.3 mg/dL Normal <1.2 [facility] Comment on above: Performed By: #### L [id number] ####Concrete Pourer: ERIKA ANGELO ([phone])[facility] ([facility])[address] [place] [address] Calcium [Mass/Vol] 8.6 mg/dL Normal 8.4-10.2 [facility] Comment on above: Performed By: #### L [id number] ####Concrete Pourer: ERIKA ANGELO ([phone])[facility] ([facility])[address] [place] [address] Chloride [Moles/Vol] 113 mmol/L High 98-107 [facility] Comment on above: Performed By: #### L [id number] ####Concrete Pourer: ERIKA ANGELO ([phone])[facility])[address] [place] [address] CO2 [Moles/Vol] 21 mmol/L Low 22-29 [facility] Comment on above: Performed By: #### L [id number] ####Concrete Pourer: ERIKA ANGELO ([phone])[facility] ([facility])[address] [place] [address] Creatinine [Mass/Vol] 0.67 mg/dL Normal 0.57-1.11 [facility] Comment on above: Performed By: #### L [id number] ####Concrete Pourer: ERIKA ANGELO ([phone])[facility] ([facility])[address] [place] [address] [place] GLOMERULAR FILTRATION RATE ML/MIN/1.73 SQ M.PREDICTED >90.0 Normal >60.0 [facility] Comment on above: Result Comment: Calc ulation based on the Chronic Kidney Disease Epidemiology Collaboration (CKD-EPI) equation refit without adjustment for race Performed By: #### L [id number] ####Concrete Pourer: ERIKA ANGELO ([phone])[facility] ([facility])[address] [place] [address] Glucose [Mass/Vol] 94 mg/dL Normal 74-100 [facility] Comment on above: Performed By: #### L [id number] ####Concrete Pourer: ERIKA ANGELO ([phone])[facility])[address] [place] [address] [place] Potassium [Moles/Vol] 4.1 mmol/L Normal 3.5-5.1 [facility] Comment on above: Result Comment: [facility] potassium values may be up to 0.5 mmol/L lower than serum values. Performed By: #### L AB17 ####Concrete Pourer: ERIKA ANGELO ([phone])[facility] ([facility])[address] [place] [address] [place] Protein [Mass/Vol] 7.0 g/dL Normal 6.4-8.3 [facility] Comment on above: Performed By: #### L [id number] ####Concrete Pourer: ERIKA ANGELO ([phone])[facility])[address] [place] [address] [place] Sodium [Moles/Vol] 140 mmol/L Normal 136-145 [facility] Comment on above: Performed By: #### L [id number] ####Concrete Pourer: ERIKA ANGELO ([phone])[facility] ([facility])[address] [place] [address] Urea nitrogen [Mass/Vol] 12 mg/dL Normal 8-21 [facility] Comment on above: Performed By: #### L [id number] ####Concrete Pourer: ERIKA ANGELO ([phone])[facility] ([facility])[address] [place] [address] CT SHOULDER LEFT WO IV CONTR Freddy 01-15-2025 CT SHOULDER LEFT WO IV CONTRAST Patient Name: DIANA CALABRESE : 1975 Exam Date/Time: 01/15/2025 01:23 Procedure: CT SHOULDER LEFT WO IV CONTRAST Ordering Provider: VOGEL OSAMA Reason For Exam: s/p L humeral head IO, c/f arthrotomy CT LEFT SHOULDER WITHOUT CONTRAST CLINICAL INDICATION: Status post left humeral head intraosseous access. Pain. Concern for glenohumeral arthrotomy. Noncontrast axial CT images of the left shoulder were obtained. Coronal and sagittal reformatted images were also made available for interpretation. Dose reduction was employed with automated exposure control. COMPARISON: Plain films of the left shoulder performed the day prior FINDINGS: No fracture or dislocation of the left shoulder is identified. There is a faint linear density within the lateral aspect of the left humeral head which likely represent sequelae of the patient's recent intraosseous vascular access. The tract does not appear to extend to the posterior cortex of the left humeral head. No evidence of joint effusion is identified. No soft tissue gas is seen. There is moderate joint space loss and degenerative spurring of the glenohumeral joint. Mild joint space loss and degenerative spurring of the acromioclavicular joint is present. The visualized portion of the left lung, left basilar atelectasis and a left pleural effusion is noted, not fully imaged. IMPRESSION: No fracture or dislocation of the left shoulder is identified. No joint effusion, fluid collection, or soft tissue gas is identified. Degenerative changes of the left acromioclavicular and glenohumeral joints. Report Dictated on Electronically Signed By: Preston Ferrari MD Electronically Signed Date/Time: 01/15/2025 2:43 AM EDT s/p L humeral head IO, c/f arthrotomy Normal [facility] CT Shoulder - left WO vivi smyth 01-15-2025 No fracture or dislocation of the left shoulder is identified. No joint effusion, fluid collection, or soft tissue gas is identified. Degenerative changes of the left acromioclavicular and glenohumeral joints. Report Dictated on Electronically Signed By: Preston Ferrari MD Electronically Signed Date/Time: 01/15/2025 2:43 AM EDT [facility] [employer] Patient Name: [facility]IANA PUGH : 1975 [id number] Exam Date/Time: 01/15/2025 01:23 Procedure: CT SHOULDER LEFT WO IV CONTRAST Ordering Provider: VOGEL OSAMA Reason For Exam: s/p L humeral head IO, c/f arthrotomy CT LEFT SHOULDER WITHOUT CONTRAST CLINICAL INDICATION: Status post left humeral head intraosseous access. Pain. Concern for glenohumeral arthrotomy. Noncontrast axial CT images of the left shoulder were obtained. Coronal and sagittal reformatted images were also made available for interpretation. Dose reduction was employed with automated exposure control. COMPARISON: Plain films of the left shoulder performed the day prior FINDINGS: No fracture or dislocation of the left shoulder is identified. There is a faint linear density within the lateral aspect of the left humeral head which likely represent sequelae of the patient's recent intraosseous vascular access. The tract does not appear to extend to the posterior cortex of the left humeral head. No evidence of joint effusion is identified. No soft tissue gas is seen. There is moderate joint space loss and degenerative spurring of the glenohumeral joint. Mild joint space loss and degenerative spurring of the acromioclavicular joint is present. The visualized portion of the left lung, left basilar atelectasis and a left pleural effusion is noted, not fully imaged. [facility] [employer] Preston Ferrari MD - 01/15/2025 Patient Name: DIANA CALABRESE : 1975 [facility]#: [id number] Exam Date/Time: 01/15/2025 01:23 Procedure: CT SHOULDER LEFT WO IV CONTRAST Ordering Provider: VOGEL OSAMA Reason For Exam: s/p L humeral head IO, c/f arthrotomy CT LEFT SHOULDER WITHOUT CONTRAST CLINICAL INDICATION: Status post left humeral head intraosseous access. Pain. Concern for glenohumeral arthrotomy. Noncontrast axial CT images of the left shoulder were obtained. Coronal and sagittal reformatted images were also made available for interpretation. Dose reduction was employed with automated exposure control. COMPARISON: Plain films of the left shoulder performed the day prior FINDINGS: No fracture or dislocation of the left shoulder is identified. There is a faint linear density within the lateral aspect of the left humeral head which likely represent sequelae of the patient's recent intraosseous vascular access. The tract does not appear to extend to the posterior cortex of the left humeral head. No evidence of joint effusion is identified. No soft tissue gas is seen. There is moderate joint space loss and degenerative spurring of the glenohumeral joint. Mild joint space loss and degenerative spurring of the acromioclavicular joint is present. The visualized portion of the left lung, left basilar atelectasis and a left pleural effusion is noted, not fully imaged. IMPRESSION: No fracture or dislocation of the left shoulder is identified. No joint effusion, fluid collection, or soft tissue gas is identified. Degenerative changes of the left acromioclavicular and glenohumeral joints. Report Dictated on Electronically Signed By: Preston Ferrari MD Electronically Signed Date/Time: 01/15/2025 2:43 AM EDT [facility] Radiology Study observation (narrative) [facility] Comprehensive metabolic 1998 panelon 01-15-2025 Albumin [Mass/Vol] 2.7 g/dL Low 3.5 - 5.0 g/dL [facility] ALP [Catalytic activity/Vol] 116 U/L 40 - 150 U/L [facility] ALT [Catalytic activity/Vol] 18 U/L NINF - 30 U/L [facility] Anion gap [Moles/Vol] 6 mmol/L 3 - 13 mmol/L [facility] AST [Catalytic activity/Vol] 24 U/L NINF - 34 U/L [facility] Bilirubin [Mass/Vol] 0.3 mg/dL NINF - 1.2 mg/dL [facility] Calcium [Mass/Vol] 8.6 mg/dL 8.4 - 10. 2 mg/dL [facility] Chloride [Moles/Vol] 113 mmol/L High 98 - 10 7 mmol/L [facility] CO2 [Moles/Vol] 21 mmol/L Low 22 - 29 mmol/L [facility] Creatinine [Mass/Vol] 0.67 mg/dL 0.57 - 1.11 mg/dL [facility] GFR/1.73 sq M.predicted (S/P/Bld) [Vol rate/Area] - PINF [facility] Comment on above: Calculation based on the Chronic Kidney Disease Epidemiology Collaboration (CKD-EPI) equation refit without adjustment for race Glucose [Mass/Vol] 94 mg/dL 74 - 100 mg/dL [facility] Interpretation and review of laboratory results Abnormal [facility] Potassium [Moles/Vol] 4.1 mmol/L 3.5 - 5.1 mmol/L [facility] Comment on above: Plasma potassium stacey ues may be up to 0.5 mmol/L lower than serum values. Protein [Mass/Vol] 7 g/dL 6.4 - 8.3 g/dL [facility] Sodium [Moles/Vol] 140 mmol/L 136 - 145 mmol/L [facility] Urea nitrogen [Mass/Vol] 12 mg/dL 8 - 21 mg/dL [facility] Consulton 01-15-2025 Consult [facility] Wound Care CONSULT Note Diana Calabrese AGE: 49 y.o. GENDER: female : 1975 Subjective: HISTORY of PRESENT ILLNESS HPI Diana Calabrese is a 49 y.o. female who presents for a wound consult. HPI: 47 y.o. female with PMH per EMR history of Alzheimer's dementia, hypertension, quadriplegia, presents from [facility] facility with concern for altered mental status. Admitted for urosepsis, quadraplegia, H/O TBI, migraines, bipolar and HTN. Wound Care consulted for post head wound. Patient is resting in bed, aide assisted with lifting patient's head to assess ulcer. Treatment applied at time of visit today. PAST MEDICAL HISTORY Medical History[1] PAST SURGICAL HISTORY Surgical History[2] FAMILY HISTORY Family History[3] SOCIAL HISTORY Social History[4] ALLERGIES Allergies[5] MEDICATIONS Medications Ordered Prior to Encounter[6] REVIEW OF SYSTEMS Pertinent items are noted in HPI. Objective: BP 103/60 (BP Location: Right arm, Patient Position: Lying) Pulse 62 Temp 36.3 ?C (97.4 ?F) (Temporal) Resp 16 Ht 5' 7" (1.702 m) Wt 200 lb (90.7 kg) SpO2 98% BMI 31.32 kg/m? PHYSICAL EXAM General appearance: in no apparent distress, well developed and well nourished, in no respiratory distress and acyanotic, and alert Skin: warm and dry Pulmonary: Normal effort, no respiratory distress, no cyanosis Abdomen: soft, nontender, and nondistended Occiput - 1.0 x 0.8 x 0.1cm - wound bed with part thickness red tissue loss, ajay wound intact with small sanguinous drainage LABS CBC: Lab Results Component Value Date WBC 6.6 01/15/2025 HGB 11.4 (L) 01/15/2025 HCT 37.0 01/15/2025 MCV 89.2 01/15/2025 PLT 309 01/15/2025 BMP: Lab Results Component Value Date NA 140 01/15/2025 K 4.1 01/15/2025 CL 113 (H) 01/15/2025 CO2 21 (L) 01/15/2025 PHOS 4.3 01/14/2025 BUN 12 01/15/2025 CREATININE 0.67 01/15/2025 PT/INR: Lab Results Component Value Date PROTIME 11.1 01/14/2025 INR 1.0 01/14/2025 Prealbumin: No results found for: "PREALBUMIN" Albumin:No components found for: "LABALBU" Sed Rate:No results found for: "SEDRATE" Micro: No components found for: "BC" Assessment/Plan: Nursing staff to perform dressing change: Occiput - stage 2 pressure injury: -cleanse with NS, apply adaptic, cover with foam dressing daily and PRN. Nutritional support Wound Care to follow Recommend to follow up at [facility] Outpatient wound care center after hospital discharge. Any questions or concerns please secure chat "ACH wound/ostomy". Thank you for the consult! I personally obtained the ludwig and critical portions of the history and physical exam. I reviewed the labs, imaging studies, and electronic medical record. I reviewed the chart documentation and discussed the patient with treatment team members. I have edited the note to reflect my clinical findings and my assessment and plan. Please note, the time of this note does not reflect the time I saw this patient today, but the time of this documentaton. Portions of this note including HPI, ROS, impression/plan, and examination may have been copied forward from admission to today as to provide important historical information essential in contributing to medical decision making. Documentation has been reviewed and edited as necessary to support clinical decision making for today's visit and to reflect my own independent evaluation of this patient. Decision making for today's visit and to reflect my own independent evaluation of this patient. [1] Past Medical History: Diagnosis Date Abnormal uterine bleeding 07/19/2017 Anemia Anxiety Bipolar 1 disorder (HCC) Cholecystitis [...] (CMS/HCC) (HCC) Urine retention Vitamin D deficiency [2] Past Surgical History: Procedure Laterality Date CHOLECYSTECTOMY 11/03/2016 TRACHEOSTOMY [3] No family history on file. [4] Social History Tobacco Use Smoking status: Former Smokeless tobacco: Never Vaping Use Vaping status: Never Used Substance Use Topics Alcohol use: No Drug use: No [5] Allergies Allergen Reactions Alcohol Unknown Avocado Kiwi Extract Morphine Swelling Pineapple Swelling Latex Rash and Swelling [6] No current facility-administere (more content not included)... Normal [facility] ECG 12-LEADon 01-15-2025 ECG 12-LEAD IMPRESSION: Sinus rhythm Borderline T abnormalities, inferior leads Electronically Signed On 01-15-2025 15:46:22 EDT by Mendel Santiago Normal [facility] - Chemistry and C hemistry - challengeon 01-15-2025 Magnesium [Mass/Vol] 2.3 mg/dL 1.6 - 2 .6 mg/dL [facility] Magnesium [Mass/Vol]on 01-15 Higher values can be expected in females during menses. [facility] No Panel InformationOrdered By: Mendel Santiago on 01-15-2025 P [place] 65 degrees [employer] Work Phone: VA Interval 160 ms [facility] [facility] Work Phone: QRS [place] 60 degrees [employer] [facility] Work Phone: QRSD Interval 93 ms [facility] Work Phone: QT Interval 380 ms [facility] Work Phone: QTC Interval 425 ms [facility] Work Phone: T Wave [place] -29 degrees [employer] Work Phone: [facility] Work Phone: No Panel Informationon 01-15 Sinus rhythm Borderline T abnormalities, inferior leads Electronically Signed On 01-15-2025 15:46:22 EDT by Mendel Fuller MD - 01/15/2025 IMPRESSION: Sinus rhythm Borderline T abnormalities, inferior leads Electronically Signed On 01-15-2025 15:46:22 EDT by Mendel Santiago [facility] Interpretation and review of laboratory results Normal [facility] [employer] Phosphate [Moles/Vol]on 12-29 Phosphate [Mass/Vol] 4.3 mg/dL 2.3 - 4 .7 mg/dL [facility] Progress Noteon 01-15-2025 Progress Note PHYSICAL THERAPY [facility] Name/MRN: Diana Calabrese ([id number]) Date: 01/15/2025 DC Note Chart reviewed. Per chart , pt is dependent with ADLs and is bed bound at baseline. Pt not appropriate for PT. Will sign off. Manny Sucaldito, PT Normal [facility] Progress Note OCCUPATIONAL THERAPY [facility] Name/MRN: Diana Calabrese ([id number]) Date: 01/15/2025 Chart reviewed. Per chart , pt is dependent with ADLs and is bed bound at baseline. Pt not appropriate for OT. Will sign off. Dakotah Barnes, OT Normal [facility] Progress Note CT Left Shoulder (01/15/25): no acute fractures. Glenohumeral joint is reduced with advanced osteoarthritis. There is no obvious defects in the bone or evidence of prior IO access. There is no subcutaneous air or intra articular air. No plan for intervention. Low concern for arthrotomy at this time. Medical and pain management per primary. Ortho to sign off. Angela Quinones MD PGY-2, Orthopaedic Surgery Normal [facility] Vital signsOrdered By: Meet Jack on 01-15-2025 Heart rate 75 /min bpm [facility] Work Phone: 30on 01-14-2025 30 Problem: Knowledge D eficit Goal: Patient/family/caregiver demonstrates understanding of disease process, treatment plan, medications, and discharge instructions Outcome: Progressing Problem: Potential for Compromised Skin Integrity Goal: Skin Integrity is Maintained or Improved Outcome: Progressing Goal: Nutritional status is improving Outcome: Progressing Problem: Urinary Incontinence Goal: Perineal skin integrity is maintained or improved Outcome: Progressing Normal [facility] APTTon 01-14-2025 aPTT Coag (Bld) [Time] 29.1 s Normal 20.0-30.5 [facility] Comment on above: Result Comment: BRIANA Cummings COMMENTS: NOTE: The therapeutic time for Heparin anticoagulation, based on Xa activity inhibition, is an APTT of 46-80 seconds. Performed By: #### L [id number] ####Concrete Pourer: ERIKA ANGELO ([phone])[facility] ([facility])[address] [place] [address] BLOOD CULTUREon 01-14-2025 Bacteria identified Cx Nom (Bld) BLOOD CULTURE Reference No growth at 5 days ORDER COMMENTS: Blood Collection Site: Left Arm [ S = SUSCEPTIBLE R = RESISTANT I = INTERMEDIATE S-DD = Susceptible-dose dependent NS = Non-susceptible NO = No Interpretation ] Normal [facility] Comment on above: Performed By: #### L [id number] #### Concrete Pourer: ERIKA ANGELO ([id number]) [facility]) [address] [place] [address] Bacteria identified Cx Nom (Bld) BLOOD CULTURE Reference No growth at 5 days ORDER COMMENTS: Blood Collection Site: Right Femoral Line [ S = SUSCEPTIBLE R = RESISTANT I = INTERMEDIATE S-DD = Susceptible-dose dependent NS = Non-susceptible NO = No Interpretation ] Normal [facility] Comment on above: Performed By: #### L [id number] ####Concrete Pourer: ERIKA ANGELO ([id number])[facility] ([facility])[address] [place] [address] CBC W Auto Differential pane l (Bld)Ordered By: Melvi Jordan on 01-14-2025 Basophils (Bld) [#/Vol] 0 10*3/uL 0.0 - 0.2 10*3/uL [facility] Basophils/100 WBC (Bld) 0.5 % 0.0 - 2.0 % [facility] Eosinophils (Bld) [#/Vol] 0.1 10*3/uL 0.0 - 0.5 10*3/uL [facility] Eosinophils/100 WBC (Bld) 1.6 % 0.0 - 6.0 % [facility] Erythrocyte distribution width (RBC) [Ratio] 14.8 % 11.5 - 15.0 % [facility] Hematocrit (Bld) [Volume fraction] 42.9 % 35.0 - 47.0 % [facility] Hemoglobin (Bld) [Mass/Vol] 13.5 g/dL 11.7 - 16.0 g/dL [facility] Immature granulocytes (Bld) [#/Vol] 0 10*3/uL NINF - 0.1 10*3/uL [facility] Health Immature granulocytes/100 WBC (Bld) 0.4 % 0.0 - 2.0 % [facility] Interpretation and review of laboratory results Normal [facility] Lymphocytes (Bld) [#/Vol] 2.3 10*3/uL 1.0 - 4.3 10*3/uL [facility] Lymphocytes/100 WBC (Bld) 31.7 % 15.0 - 45.0 % [facility] MCH (RBC) [Entitic mass] 27.6 pg 26.0 - 34.0 pg [facility] MCHC (RBC) [Mass/Vol] 31.5 % 30.5 - 36.0 % [facility] MCV (RBC) [Entitic vol] 87.7 fL 77.0 - 99.0 fL [facility] Monocytes (Bld) [#/Vol] 0.7 10*3/uL 0.0 - 0.9 10*3/uL [facility] Monocytes/100 WBC (Bld) 10 % 5.0 - 13.0 % [facility] Neutrophils (Bld) [#/Vol] 4.1 10*3/uL 1.8 - 7.5 10*3/uL [facility] Neutrophils/100 WBC (Bld) 55.8 % 38.0 - 82.0 % [facility] Nucleated RBC/100 WBC (Bld) [Ratio] 0 % [facility] Platelet mean volume (Bld) [Entitic vol] 10.1 fL 9.0 - 12.7 fL [facility] Comment on above: MPV is a calculated measurement using platelet volume ratio Platelets (Bld) [#/Vol] 363 10*3/uL 140 - 440 10*3/uL [facility] RBC (Bld) [#/Vol] 4.89 10*6/uL 3.80 - 5.20 10*6/uL [facility] WBC (Bld) [#/Vol] 7.3 10*3/uL 3.6 - 10.7 10*3/uL [facility] CBC WITH AUTO DIFFERENTIALon 01-14-2025 Basophils (Bld) [#/Vol] 0.0 10*3/uL Normal 0.0-0.2 [facility] Comment on above: Performed By: #### L [id number] ####Concrete Pourer: ERIKA ANGELO ([id number])[facility] ([address] Basophils/100 WBC (Bld) 0.5 % Normal 0.0-2.0 [facility] Comment on above: Performed By: #### L [id number] ####Concrete Pourer: ERIKA ANGELO ([id number])[facility] ([facility])[address] [place] [address] Eosinophils (Bld) [#/Vol] 0.1 10*3/uL Normal 0.0-0.5 [facility] Comment on above: Performed By: #### L [id number] ####Concrete Pourer: ERIKA ANGELO ([id number])[facility] JIMENE[facility] ([facility])[address] [place] [address] Eosinophils/100 WBC (Bld) 1.6 % Normal 0.0-6.0 [facility] Comment on above: Performed By: #### L [id number] ####Concrete Pourer: ERIKA ANGELO ([id number])[facility] ([facility])[address] [place] [address] Erythrocyte distribution width (RBC) [Ratio] 14.8 % Normal 11.5-15.0 [facility] Comment on above: Performed By: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 a 49 y.o. that presents to the emergency department for evaluation after transfer from [facility] ER. Apparently the patient was transferred due to hypotension with plan for ICU evaluation. They apparently had trouble getting IVs established there and an IO was placed in the humerus. They did given her 3 L of fluid as well as albumin although never started Levophed. Her only complaint on arrival is left shoulder plain where the IO had been placed but interestingly removed prior to transport. She also had a reported wound to the back of her scalp. Her labs done at [facility] were without any acute findings. No chest x-ray have been performed. No antibiotics have been given. She apparently had been fed macaroni and cheese prior to transport. She has a history of TBI as well as quadriplegia. Focused exam: Alert and oriented x 2, small pressure wound noted to the back of her scalp, please see pictures in chart, heart rate is regular, lungs are clear, left anterior shoulder with puncture wound noted from recent IO that is in line with a axilla, tender to palpation with surrounding ecchymosis, contractures to all 4 extremities Brief ED course/MDM: X-rays were obtained of the left shoulder due to questionable placement of the IO. Orthopedics was also consulted secondary to this. ICU was consulted on arrival and states the patient is stable for the floor. Patient will be admitted to medicine for further evaluation and treatment Diagnostics interpreted by me: Left shoulder x-ray interpreted by me, no acute fracture Diagnoses as of 01/26/25 1624 Disorientation Functional quadriplegia (CMS/HCC) (HCC) Hypotension, unspecified hypotension type I personally discussed the patient's management with other clinicians: ICU and orthopedics CRITICAL CARE TIME None All diagnostic, treatment, and disposition decisions were made by myself in conjunction with the Resident. I also supervised ludwig portions of any procedures performed by the Resident. For all further details of the patient's emergency department visit, please see their documentation. (Comment: Please note this report has been produced using speech recognition software and may contain errors related to that system including errors in grammar, punctuation, and spelling, as well as words and phrases that may be inappropriate. If there are any questions or concerns please feel free to contact the dictating provider for clarification.) Luli Martins, [employer] Luli Martins DO 01/26/25 1624 [facility] ED Provider Note EMERGENCY DEPARTMENT ENCOUNTER Pt Name: Diana Calabrese Birthdate 1975 Date of evaluation: 01/14/2025 CHIEF COMPLAINT Chief Complaint Patient presents with Altered Mental Status HISTORY OF PRESENT ILLNESS History limited by: Mental status change Diana Calabrese is a 49 y.o. female who presents to the emergency department with change in mental status from nursing facility. Per nursing facility next of kin has not visited in 2 years. Patient is full code. Spoke with patient's court-appointed guardian Eric he gave permission for any and all treatments and procedures as necessary REVIEW OF SYSTEMS Review of Systems Problem List[1] CURRENT MEDICATIONS Previous Medications ACETAMINOPHEN (TYLENOL) 325 MG TABLET Take 650 mg by mouth every 6 hours as needed. BACLOFEN (LIORESAL) 10 MG TABLET BISACODYL (DULCOLAX) 10 MG SUPPOSITORY Insert 10 mg into the rectum. BISACODYL (DULCOLAX) 5 MG EC TABLET Take 5 mg by mouth daily as needed. CLONAZEPAM (KLONOPIN) 1 MG TABLET GABAPENTIN (NEURONTIN) 400 MG CAPSULE LACTULOSE (CHRONULAC) 10 GM/15ML SOLUTION MAGNESIUM HYDROXIDE (MILK OF MAGNESIA) 400 MG/5ML SUSPENSION Take 30 mL by mouth. OMEGA-3 (FISH OIL) 1000 MG CAPSULE Take 1,000 mg by mouth daily. OMEPRAZOLE (PRILOSEC) [address] CAPSULE Take 20 mg by mouth in the morning. OXCARBAZEPINE (TRILEPTAL) 300 MG TABLET POLYETHYLENE GLYCOL, PEG, 3350 (GLYCOLAX) 17 GM/SCOOP POWDER Take 17 g by mouth daily. SERTRALINE (ZOLOFT) 25 MG TABLET Take by mouth daily. SERTRALINE (ZOLOFT) 50 MG TABLET TAMSULOSIN (FLOMAX) 0.4 MG 24 HR CAPSULE TOPIRAMATE (TOPAMAX) 200 MG TABLET ALLERGIES Alcohol, Avocado, Kiwi extract, Morphine, Pineapple, and Latex SOCIAL HISTORY Social History[2] PHYSICAL EXAM Vitals: 01/14/25 1238 01/14/25 1430 01/14/25 1620 01/14/25 1715 BP: 95/63 92/62 88/59 84/55 BP Location: Right arm Right arm Right arm Patient Position: Lying Sitting Sitting Pulse: 83 63 85 72 Resp: 14 12 18 14 Temp: TempSrc: SpO2: 100% 100% 98% 98% Weight: Height: Physical Exam Vitals and nursing note reviewed. Eyes: General: No scleral icterus. Right eye: Discharge present. Left eye: Discharge present. Pupils: Pupils are equal, round, and reactive to light. Funduscopic exam: Right eye: No papilledema. Left eye: No papilledema. Cardiovascular: Rate and Rhythm: Normal rate and regular rhythm. Pulmonary: Effort: Pulmonary effort is normal. No respiratory distress. Breath sounds: No stridor. Abdominal: General: Bowel sounds are normal. Palpations: Abdomen is soft. Hernia: No hernia is present. Skin: General: Skin is warm. Coloration: Skin is not cyanotic or jaundiced. Findings: Wound (streaking erythema. some slough, biofilm) present. Neurological: Mental Status: She is alert. She is disoriented. Motor: Abnormal muscle tone present. Gait: Gait is intact. Psychiatric: Attention and Perception: She is inattentive. SCREENINGS Rock Coma Scale Best Eye Response: Spontaneous Best Verbal Response: Confused Best Motor Response: Withdraws to pain [place] Coma Scale Score: 12 HEART Score Age: 45-64 NIH Stroke Scale 1A. Level of Consciousness: Alert, Keenly Responsive 1B. Ask Month and Age: Both Questions Right 1C. Blink Eyes & Squeeze Hands: Performs 1 Task 2. Best Gaze: Normal 3. Visual: No Visual Loss 4. Facial Palsy: Normal Symmetrical Movements 5A. Motor - Left Arm: No Drift 5B. Motor - Right Arm: No Drift 6A. Motor - Left Leg: No Effort Against [place] 6B. Motor - Right Leg: No Effort Against [place] 7. Limb Ataxia: Absent 8. Sensory Loss: Enwj-tp-Vmzyohyj Sensory Loss 9. Best Language: Severe Aphasia 10. Dysarthria: Severe Dysarthria 11. Extinction and Inattention: Visual, Tactile, Auditory, Spatial, or Personal Inattention NIH Stroke Scale: 13 Medical decision making DIAGNOSTIC RESULTS Procedures/EKG: Physician EKG interpretation can be found in [facility] if done Radiologist results reviewed: CT head wo IV contrast Final Result 1. No acute intracranial abnormality is identified. 2. Redemonstration of extensive bilateral frontoparietal encephalomalacia. Report Dictated on Electronically Signed By: Dai Jones MD Electronically Signed Date/Time: 01/14/2025 11:37 AM EDT LABS: Labs Reviewed COMPREHENSIVE METABOLIC PANEL - Abnormal Result Value SODIUM 142 POTASSIUM 4.4 CHLORIDE 110 (*) CARBON DIOXIDE 25 ANION GAP 7 UREA NITROGEN 13 CREATININE 0.76 GLUCOSE 86 CALCIUM 9.1 AST (SGOT) 30 ALT 23 ALKALINE PHOSPHATASE 150 ALBUMIN 2.7 (*) BILIRUBIN, TOTAL 0.2 TOTAL PROTEIN 8.2 eGFR >90.0 BLOOD CULTURE - Normal Blood Culture Blood culture incubation started Narrative: Blood Collection Site: Right Femoral Line CBC WITH AUTO DIFFERENTIAL - Normal Auto WBC 7.3 RBC 4.89 Hemoglobin 13.5 Hematocrit 42.9 MCV 87.7 MCH 27.6 (more content not included)... Normal [facility] ED Provider Note EMERGENCY DEPARTMENT ENCOUNTER Patient Name: Diana Calabrese Birthdate 1975 Date of evaluation: 01/14/2025 ED Physician: Anuj Glover DO CHIEF COMPLAINT Chief Complaint Patient presents with Altered Mental Status HISTORY OF PRESENT ILLNESS (Location/Symptom, Timing/Onset, Context/Setting, Quality, Duration, Modifying Factors, Severity) Note limiting factors. I wore appropriate PPE for the entirety of this encounter. HPI Diana Calabrese is a 49 y.o. female presenting with hypotension, altered mental status, and multiple pain complaints after transfer from [place] ED. BP per EMS, last reading at 93 and previous readings in the low 80s. Her mean arterial pressure (MAP) has been between 61 and 65. The patient reports left shoulder pain. She also complains of left shoulder pain, which she believes may be due to a pulled muscle. The left shoulder pain began approximately 30 minutes ago. The pain is exacerbated by straightening the arm. Additionally, the patient reports hip pain that started today, specifically on the bottom of her hips. Limitations to history: Acuity REVIEW OF SYSTEMS Review of Systems Pertinent positives and negatives as per HPI. PAST MEDICAL HISTORY Medical History[1] SURGICAL HISTORY Surgical History[2] CURRENT MEDICATIONS Previous Medications ACETAMINOPHEN (TYLENOL) 325 MG TABLET Take 650 mg by mouth every 6 hours as needed. BACLOFEN (LIORESAL) 10 MG TABLET BISACODYL (DULCOLAX) 10 MG SUPPOSITORY Insert 10 mg into the rectum. BISACODYL (DULCOLAX) 5 MG EC TABLET Take 5 mg by mouth daily as needed. CLONAZEPAM (KLONOPIN) 1 MG TABLET GABAPENTIN (NEURONTIN) 400 MG CAPSULE LACTULOSE (CHRONULAC) 10 GM/15ML SOLUTION MAGNESIUM HYDROXIDE (MILK OF MAGNESIA) 400 MG/5ML SUSPENSION Take 30 mL by mouth. OMEGA-3 (FISH OIL) 1000 MG CAPSULE Take 1,000 mg by mouth daily. OMEPRAZOLE (PRILOSEC) [address] CAPSULE Take 20 mg by mouth in the morning. OXCARBAZEPINE (TRILEPTAL) 300 MG TABLET POLYETHYLENE GLYCOL, PEG, 3350 (GLYCOLAX) 17 GM/SCOOP POWDER Take 17 g by mouth daily. SERTRALINE (ZOLOFT) 25 MG TABLET Take by mouth daily. SERTRALINE (ZOLOFT) 50 MG TABLET TAMSULOSIN (FLOMAX) 0.4 MG 24 HR CAPSULE TOPIRAMATE (TOPAMAX) 200 MG TABLET ALLERGIES Alcohol, Avocado, Kiwi extract, Morphine, Pineapple, and Latex FAMILY HISTORY Family History[3] SOCIAL HISTORY Social History[4] SCREENINGS [place] Coma Scale Best Eye Response: Spontaneous Best Verbal Response: Confused Best Motor Response: Withdraws to pain [place] Coma Scale Score: 12 HEART Score Age: 45-64 NIH Stroke Scale 1A. Level of Consciousness: Alert, Keenly Responsive 1B. Ask Month and Age: Both Questions Right 1C. Blink Eyes & Squeeze Hands: Performs 1 Task 2. Best Gaze: Normal 3. Visual: No Visual Loss 4. Facial Palsy: Normal Symmetrical Movements 5A. Motor - Left Arm: No Drift 5B. Motor - Right Arm: No Drift 6A. Motor - Left Leg: No Effort Against [place] 6B. Motor - Right Leg: No Effort Against [place] 7. Limb Ataxia: Absent 8. Sensory Loss: Shkw-oe-Fwoxzqff Sensory Loss 9. Best Language: Severe Aphasia 10. Dysarthria: Severe Dysarthria 11. Extinction and Inattention: Visual, Tactile, Auditory, Spatial, or Personal Inattention NIH Stroke Scale: 13 PHYSICAL EXAM ED Triage Vitals [01/14/25 0925] Temp Heart Rate Resp BP 36.6 ?C (97.8 ?F) 71 16 91/64 SpO2 Temp Source Heart Rate Source Patient Position 99 % Oral Monitor Lying BP Location FiO2 (%) Right arm -- Physical Exam Vitals and nursing note reviewed. Constitutional: General: She is not in acute distress. Appearance: Normal appearance. HENT: Head: Normocephalic. Comments: 1 x 1 cm pressure wound on the back of the head Right Ear: External ear normal. Left Ear: External ear normal. Nose: Nose normal. Mouth/Throat: Mouth: Mucous membranes are moist. Eyes: Extraocular Movements: Extraocular movements intact. Pupils: Pupils are equal, round, and reactive to light. Cardiovascular: Rate and Rhythm: Regular rhythm. Tachycardia present. Pulmonary: Effort: Pulmonary effort is normal. No respiratory distress. Abdominal: General: There is no distension. Palpations: There is no mass. Tenderness: There is no abdominal tenderness. There is no guarding or rebound. Hernia: No hernia is present. Musculoskeletal: Comments: All 4 extremities with chronic contractures. Left anterior shoulder with pinpoint wound likely from recent IO. With tenderness to palpation. Skin: General: Skin is warm and dry. Neurological: Mental Status: She is alert. Comments: Aox2 DIAGNOSTIC RESULTS Procedures/EKG: EKG was reviewed by myself. Physician EKG interpretation can be found in [facility] RADIOLOGY (Per Emergency Physician): Interpretation per the Radiologist below, if available at the time of this note: XR shoulder 2+ views left Final Result 1. Allowi (more content not included)... Normal [facility] LACTIC ACID WITH REFLEXon Lactate [Moles/Vol] 1.5 mmol/L Normal 0.5-2.2 [facility] Comment on above: Performed By: #### L [id number] ####Concrete Pourer: ERIKA ANGELO ([phone])[facility] BARBARA MitokyneDOMENICJUWAN (SWRLAB)[address] [place] [address] Laboratory - Chemistry and C hemistry - challengeon 01-14-2025 Glucose [Mass/Vol] 76 mg/dL 70 - 100 mg/dL [facility] Lactate [Moles/Vol] 1.5 mmol/L 0.5 - 2. 2 mmol/L [facility] Laboratory - Coagulationon 0 01-14-2025 PT Coag (Bld) [Time] 11.1 s 9.0 - 1 2.0 s [facility] MAGNESIUMon 01-14-2025 Magnesium [Mass/Vol] 2.3 mg/dL Normal 1.6-2.6 [facility] Comment on above: Result Comment: BRIANA Cummings COMMENTS: Higher values can be expected in females during menses. Performed By: #### L [id number], [id number], [id number] ####Concrete Pourer: ERIKA ANGELO ([phone])[facility] ALISASHELLY (SWRLAB)[address] [place] [address] No Panel Informationon 01-14 Interpretation and review of laboratory results Normal [facility] Performed by: [facility], [address] [place] [address] CLIA ID: [id number] [facility] Interpretation and review of laboratory results Normal [facility] P [place] 43 degrees [facility] Interval 133 ms [facility] QRS [place] 37 degrees [facility] QRSD Interval 92 ms [facility] QT Interval 398 ms [facility] QTC Interval 432 ms [facility] T Wave [place] -3 degrees [facility] Sinus rhythm Low voltage, precordial leads Electronically Signed On 01-14-2025 11:27:04 EDT by Danny Balderas CV Danny Avila MD - 01/14/2025 IMPRESSION: Sinus rhythm Low voltage, precordial leads Electronically Signed On 01-14-2025 11:27:04 EDT by Danny Balderas [facility] Danny Balderas MD 12/29 6:23 PM IO Line Insertion Performed by: Danny Balderas MD Authorized by: Danny Balderas MD Consent: Consent was not able to be obtained because the procedure was emergent or the patient was unable to give consent and a surrogate decision maker was not available. Timeout: Completed immediately prior to the start of the procedure which included verification of the correct patient, correct site and agreement on the procedure to be done. Indications: Indications: hemodynamic instability and rapid vascular access Anesthetic: Local anesthetic used: lidocaine with epinephrine Preparation: Patient was prepped and draped in usual sterile fashion. Skin prepped: skin prepped with chlorhexidine Procedure details: Orientation: left Insertion site: proximal humerus Insertion device: drill device and 15 gauge IO needle Needle length: 45mm (yellow) Insertion: Needle was inserted through the bony cortex Number of attempts: 1 Insertion confirmation: aspiration of blood/marrow and easy infusion of fluids Post-procedure: Post-procedure: securement device and line flushed Estimated blood loss: none Specify complication(s): no apparent complications General Comments: Limited consent was obtained from patient. Rapid vascular access need secondary to failed multiple peripheral IV attempts multiple times by nursing staff. indication rapid Infuse fluids as patient systolic blood pressures less than 100 mmHg and altered mental status concern for sepsis. [facility] Nursing Noteon 01-14-2025 Nursing Note Pt arrived from ED, incontinent of urine and stool, cleaned and changed, external cath applied, pt A&O x 1, hallucinating, unable to do admit questions at this time, pt unable to move any extremities, blow in call light requested from [facility], bed alarm on for safety. Normal [facility] PHOSPHORUSon 01-14-2025 Phosphate [Mass/Vol] 4.3 mg/dL Normal 2.3-4.7 [facility] Comment on above: Performed By: #### L [id number], [id number], [id number] ####Concrete Pourer: ERIKA ANGELO ([phone])[facility]ITAL[facility] HUGHES (SWRLAB)[address] [place] [address] [place] PROTHROMBIN TIMEon INR Coag (PPP) [Relative time] 1.0 {INR} Normal 0.9-1.1 [facility] Comment on above: Result Comment: Keith mmended Anticoagulant Therapy: SEE BELOW ----- INR of 2.0 - 3.0 : - Prophylaxis of Venous Thrombosis (high-risk surgery) - Treatment of Venous Thrombosis - Treatment of Pulmonary Embolism (Includes tissue heart valves, Acute Myocardial Infarction to prevent systemic embolism, Valvular Heart Disease, and Atrial Fibrillation) ----- INR of 2.5 - 3.5 : - Mechanical Prosthetic Valves (high risk) - If oral anticoagulant therapy is used to prevent Myocardial Infarction Performed By: #### Hemal [id number] ####Concrete Pourer: ERIKA ANGELO ([phone])[facility]ITAL[facility] HUGHES (SWRLAB)[address] [place] [address] PT Coag (PPP) [Time] 11.1 s Normal 9.0-12.0 [facility] Comment on above: Performed By: #### Hemal [id number] ####Concrete Pourer: ERIKA ANGELO ([phone])[facility]ITAL[facility] HUGHES (SWRLAB)[address] [place] [address] [place] PT Coag (Bld) [Time]on 01-14 INR Coag (PPP) [Relative time] 1 {INR} 0.9 - 1.1 [facility] Comment on above: Recommended Anticoag ulant Therapy: SEE BELOW ----- INR of 2.0 - 3.0 : - Prophylaxis of Venous Thrombosis (high-risk surgery) - Treatment of Venous Thrombosis - Treatment of Pulmonary Embolism (Includes tissue heart valves, Acute Myocardial Infarction to prevent systemic embolism, Valvular Heart Disease, and Atrial Fibrillation) ----- INR of 2.5 - 3.5 : - Mechanical Prosthetic Valves (high risk) - If oral anticoagulant therapy is used to prevent Myocardial Infarction Interpretation and review of laboratory results Normal [facility] Progress Noteon 01-14-2025 Progress Note Care Coordination: Patient transferred to [facility] ED for ED to ED transfer by Dr. Sims for hypotension and possible sepsis. On arrival to [facility] ED ICU paged to assess patient. She had received 3L in crystalloid and albumin, and BP had normalized 110/70s (MAP 80s). Quadriplegic. Lungs CTAB. Heart RRR no m/r/g. Patient has chronic contractures and small wound on her posterior scalp. Getting XR of the shoulder for I/O which was placed at outside ED. She was awake, alert, mildly confused, uncertain her baseline. Reporting 1 week of ongoing nausea and vomiting, and associated dyspnea. No acute ICU needs at this time, hemodynamically stable, BP normalized IV fluids, no alarming lab abnormalities. Overall suspect volume depletion from ongoing nausea/vomiting. Discussed with Dr. Flynn. Discussed with ED Resident who was OK with forgoing formal ICU consult. Please call ICU if any change in patient condition or question and place consult. This is not a billable encounter. Normal [facility] Urinalysis complete panel (U )on 01-14-2025 Bilirubin Ql (U) Negative Negative mg/dL [facility] Clarity (U) Clear Clear [facility] Color (U) Colorless Lt. Yellow [facility] Glucose Ql (U) Normal Normal (<70) mg/dL [facility] Hemoglobin Ql (U) Negative Negative mg/dL [facility] Interpretation and review of laboratory results Normal [facility] Ketones (U) [Mass/Vol] Negative Negat golden mg/dL [facility] Leukocyte esterase Test strip Ql (U) Negative Negative Robert/uL [facility] Nitrite Ql (U) Negative Negative [facility] pH (U) 5.5 [pH] 5.0 - 8.0 pH [facility] Protein (U) [Mass/Vol] Negative Negat golden mg/dL [facility] Specific gravity (U) [Rel density] 1.006 1.005 - 1.030 [facility] Urobilinogen (U) [Mass/Vol] Normal Normal (0-1) mg/dL [facility] A specimen with <=10 WBC is not consistent with inflammation. This specimen will not reflex to a urine culture. [facility] Vital signson 01-14-2025 Heart rate 71 /min bpm [facility] XR Abdomen Single viewon Nonspecific, nonobstructive gas pattern. Large amount of stool within the rectum, which is suspected to measure at least 11 cm in diameter. Multiple large left renal calculi, similar to a CT from 07/11/2023. Report Dictated on Electronically Signed By: Preston Ferrari MD Electronically Signed Date/Time: 01/14/2025 11:59 PM EDT [facility] Patient Name: DIANA PUGH : 1975 Exam Date/Time: 01/14/2025 23:33 Procedure: XR ABDOMEN 1 VIEW Ordering Provider: VOGEL OSAMA Reason For Exam: ABDOMINAL PAIN SUPINE ABDOMEN (KUB) CLINICAL INDICATION: Hypotension A supine plain film of the abdomen was obtained. COMPARISON: CT dated 07/11/2023 FINDINGS: The bowel demonstrates a nonspecific, nonobstructive gas pattern. There appears to be a large amount of stool within the rectum. Free air under the diaphragm cannot be adequately assessed on this single, supine view. Upright or decubitus films may be obtained if clinically warranted. Multiple calcifications overlying the expected location of the left kidney and left renal pelvis are noted, measuring up to 2.7 cm in greatest diameter, similar to the study from 07/11/2023 calcifications are also noted within the lower pelvis which appear to correspond to dystrophic appearing calcifications near the expected location of the coccyx. [facility] Preston Ferrari MD - 01/15/2025 Patient Name: DIANA CALABRESE : 1975 Exam Date/Time: 01/14/2025 23:33 Procedure: XR ABDOMEN 1 VIEW Ordering Provider: VOGEL OSAMA Reason For Exam: ABDOMINAL PAIN SUPINE ABDOMEN (KUB) CLINICAL INDICATION: Hypotension A supine plain film of the abdomen was obtained. COMPARISON: CT dated 07/11/2023 FINDINGS: The bowel demonstrates a nonspecific, nonobstructive gas pattern. There appears to be a large amount of stool within the rectum. Free air under the diaphragm cannot be adequately assessed on this single, supine view. Upright or decubitus films may be obtained if clinically warranted. Multiple calcifications overlying the expected location of the left kidney and left renal pelvis are noted, measuring up to 2.7 cm in greatest diameter, similar to the study from 07/11/2023 calcifications are also noted within the lower pelvis which appear to correspond to dystrophic appearing calcifications near the expected location of the coccyx. IMPRESSION: Nonspecific, nonobstructive gas pattern. Large amount of stool within the rectum, which is suspected to measure at least 11 cm in diameter. Multiple large left renal calculi, similar to a CT from 07/11/2023. Report Dictated on Electronically Signed By: Preston Ferrari MD Electronically Signed Date/Time: 01/14/2025 11:59 PM EDT [facility] Rad[facility] Study observation (narrative) [id number] [address] [facility] XR Abdomen Single viewOrdere d By: Preston Ferrari on 01-14-2025 [facility] XR Shoulder - left 2 Viewson 01-14-2025 1. Allowing for limitations, no acute fracture or dislocation. 2. Moderate degenerative changes in the left glenohumeral joint and to lesser extent left acromioclavicular joint. Report Dictated on Electronically Signed By: Manoj Hogan MD Electronically Signed Date/Time: 01/14/2025 9:13 PM EDT [facility] Patient Name: DIANA PUGH : 1975 [id number] Exam Date/Time: 01/14/2025 20:57 Procedure: XR SHOULDER 2+ VIEWS LEFT Ordering Provider: ARMSTRONG SHELDON Reason For Exam: injury to left shoulder EXAM: XR Left Shoulder Complete, 2 or More Views CLINICAL INDICATION: injury to left shoulder. Left shoulder pain status post injury. TECHNIQUE: Two or more views of the left shoulder. COMPARISON: None available. FINDINGS: Limitations: Limited by patient positioning. Bones/joints: Allowing for limitations, no acute fracture or dislocation. Moderate degenerative changes in the left glenohumeral joint and to lesser extent left acromioclavicular joint. Mild subacromial spurring. Degenerative spondylosis in the visualized spine. Soft tissues: Within normal limits. [facility] Candy Hogan MD - 01/14/2025 Patient Name: DIANA CALABRESE : 1975 Exam Date/Time: 01/14/2025 20:57 Procedure: XR SHOULDER 2+ VIEWS LEFT Ordering Provider: ARMSTRONG SHELDON Reason For Exam: injury to left shoulder EXAM: XR Left Shoulder Complete, 2 or More Views CLINICAL INDICATION: injury to left shoulder. Left shoulder pain status post injury. TECHNIQUE: Two or more views of the left shoulder. COMPARISON: None available. FINDINGS: Limitations: Limited by patient positioning. Bones/joints: Allowing for limitations, no acute fracture or dislocation. Moderate degenerative changes in the left glenohumeral joint and to lesser extent left acromioclavicular joint. Mild subacromial spurring. Degenerative spondylosis in the visualized spine. Soft tissues: Within normal limits. IMPRESSION: 1. Allowing for limitations, no acute fracture or dislocation. 2. Moderate degenerative changes in the left glenohumeral joint and to lesser extent left acromioclavicular joint. Report Dictated on Electronically Signed By: Manoj Hogan MD Electronically Signed Date/Time: 01/14/2025 9:13 PM EDT [facility] Radiology Study observation (narrative) [facility] [address] XR Shoulder - left 2 ViewsOr dered By: Candy Hogan on 01-14-2025 [id number] Work Phone: aPTT Coag (Bld) [Time]on aPTT Coag (PPP) [Time] 29.1 s 20.0 - 30.5 s [facility] Interpretation and review of laboratory results Normal [facility] [address] NOTE: The therapeuti c time for Heparin anticoagulation, based on Xa activity inhibition, is an APTT of 46-80 seconds. [facility] Gram Stainon 01-13-2025 GS UNKNOWN LOCATION OF WOUND Gram Stain 2+ Gram negative rods Rare Gram positive cocci Normal [facility] Comment on above: Performed By: #### L [id number], L100.0500 #### [facility] [address] [place], [address] Absolute lymphocyte countOrd ered By: Venkat Malin on 12-11-2024 Lymphocytes Auto (Unsp spec) [#/Vol] 2.74 10*3/uL 0.83-4.51 [facility] Absolute neutrophil countOrd ered By: Venkat Malin on 12-11-2024 Neutrophils (Bld) [#/Vol] 4.3 10*3/uL 2.0-7.7 [facility] Automated lymphocyte count a s percentage of total leukocytesOrdered By: Venkat Malin on 12-11-2024 Lymphocytes/100 WBC Auto (Unsp spec) 34.7 % 19-41 [facility] Basophil percentageOrdered B y: Venkat Malin on 12-11-2024 Basophils/100 WBC (Bld) 0.5 % 0-1 [facility] CBC W/Diff, Automatedon 11-28 Absolute Lymph 2.74 X10 3/uL Normal 0.83-4.51 [facility] Comment on above: Order Comment: 302-1 Performed By: #### L [id number], [id number] #### [facility] [address] [place], [address] Absolute Neut 4.3 X10 3/uL Normal 2.0-7.7 [facility] Comment on above: Order Comment: 302-1 Performed By: #### L [id number], L100.0500 #### [facility] [address] [place], [address] Basophils/100 WBC (Bld) 0.5 % Normal 0-1 [facility] Comment on above: Order Comment: 302-1 Performed By: #### L [id number], [id number] #### [facility] [address] [place], [address] Eosinophils/100 WBC (Bld) 1.8 % Normal 0-5 [facility] Comment on above: Order Comment: 302-1 Performed By: #### L [id number], L100.0500 #### [facility] [address] [place], [address] Erythrocyte distribution width (RBC) [Ratio] 15.2 % High 11.6-14.6 [facility] Comment on above: Order Comment: 302-1 Performed By: #### L [id number], [id number] #### [facility] [address] [place], [address] Hematocrit (Bld) [Volume fraction] 37.1 % Normal 37-47 [facility] Comment on above: Order Comment: 302-1 Performed By: #### L [id number], [id number] #### [facility] [address] [place], [address] Hemoglobin (Bld) [Mass/Vol] 11.4 g/dL Low 12.0-15.0 [facility] Comment on above: Order Comment: 302-1 Performed By: #### L [id number], [id number] #### [facility] [address] [place], [address] IG% 0.300 Normal 0.0-0.9 [facility] Comment on above: Order Comment: 302-1 Result Comment: IG% - Immature Granulocytes (promyelocytes, myelocytes and metamyelocytes) > 1% indicates that a LEFT SHIFT is Present. Performed By: #### L [id number], L100.0500 #### [facility] [address] [place], [address] Lymphocytes/100 WBC (Bld) 34.7 % Normal 19-41 [facility] Comment on above: Order Comment: 302-1 Performed By: #### L [id number], [id number] #### [facility] [address], [address] MCH (RBC) [Entitic mass] 27.5 pg Normal 27.0-32.0 [facility] Comment on above: Order Comment: 302-1 Performed By: #### L [id number], L100.0500 #### [facility] [address] [place], [address] MCHC (RBC) [Mass/Vol] 30.7 g/dL Low 32-36 [facility] Comment on above: Order Comment: 302-1 Performed By: #### L [id number], [id number] #### [facility] [address] [place], [address] MCV (RBC) [Entitic vol] 89.4 fL Normal 81-99 [facility] Comment on above: Order Comment: 302-1 Performed By: #### L [id number], L100.0500 #### [facility] [address] [place], [address] Monocytes/100 WBC (Bld) 8.9 % Normal 0-10 [facility] Comment on above: Order Comment: 302-1 Performed By: #### L [id number], [id number] #### [facility] [address] [place], [address] Neutrophils/100 WBC (Bld) 53.8 % Normal 47-70 [facility] Comment on above: Order Comment: 302-1 Performed By: #### L [id number], [id number] #### [facility] [address] [place], [address] Nucleated RBC (Bld) [#/Vol] 0 10*3/uL Normal 0-5 [facility] Comment on above: Order Comment: 302-1 Performed By: #### L [id number], L100.0500 #### [facility] [address] [place], [address] Platelet mean volume (Bld) [Entitic vol] 10.8 fL Normal 6.2-12.0 [facility] Comment on above: Order Comment: 302-1 Performed By: #### L 500.4050, L100.0500 #### [facility] [address] [place], [address] Platelets (Bld) [#/Vol] 345 10*3/uL Normal 150-450 [facility] Comment on above: Order Comment: 302-1 Performed By: #### L 500.4050, L100.0500 #### [facility] [address] [place], [address] RBC (Bld) [#/Vol] 4.15 10*6/uL Low 4.2-5.[address] [facility] Comment on above: Order Comment: 302-1 Performed By: #### L 500.4050, L100.0500 #### [facility] [address] [place], [address] RDW SD 49.8 fl High 35.1-43.9 [facility] Comment on above: Order Comment: 302-1 Performed By: #### L 500.4050, L100.0500 #### [facility] [address] [place], [address] WBC (Bld) [#/Vol] 7.9 10*3/uL Normal 4.4-11.0 [facility] Comment on above: Order Comment: 302-1 Performed By: #### L 500.4050, L100.0500 #### [facility] [address] [place], [address] Eosinophil percentageOrdered By: Venkat Malin on 12-11-2024 Eosinophils/100 WBC (Bld) 1.8 % 0-5 [facility] Erythrocyte distribution wid th ratioOrdered By: Venkat Malin on 12-11-2024 Erythrocyte distribution width (RBC) [Ratio] 15.2 % High 11.6-14.6 [facility] Erythrocyte distribution wid th standard deviationOrdered By: Venkat Malin on 12-11-2024 Erythrocyte distribution width (RBC) [Ratio] 49.8 fl High 35.1-43.9 [facility] Hematocrit Auto (Bld) [Volum e fraction]Ordered By: Venkat Malin on 12-11-2024 Hematocrit (Bld) [Volume fraction] 37.1 % 37-47 [facility] Hemoglobin measurementOrdere d By: Venkat Malin on 12-11-2024 Hemoglobin (Bld) [Mass/Vol] 11.4 g/dL Low 12.0-15.0 [facility] Immature granulocytes/100 WB C Auto (Bld)Ordered By: Venkat Malin on 12-11-2024 Immature granulocytes/100 WBC (Bld) 0.300 % 0.0-0.9 [facility] Comment on above: IG% - Immature Granu locytes (promyelocytes, myelocytes and metamyelocytes) > 1% indicates that a LEFT SHIFT is Present. MCV (mean corpuscular volume ) determinationOrdered By: Venkat Malin on 12-11-2024 MCV (RBC) [Entitic vol] 89.4 fL 81-99 [facility] Mean corpuscular hemoglobin (MCH) determinationOrdered By: Venkat Malin on 12-11-2024 MCH (RBC) [Entitic mass] 27.5 pg 27.0-32.0 [facility] Mean corpuscular hemoglobin concentration (MCHC) determinationOrdered By: Venkat Malin on 12-11-2024 MCHC (RBC) [Mass/Vol] 30.7 g/dL Low 32-36 [facility] Mean platelet volume determi nationOrdered By: Venkat Malin on 12-11-2024 Platelet mean volume (Bld) [Entitic vol] 10.8 fL 6.2-12.0 [facility] Monocyte percentageOrdered B y: Venkat Mailn on 12-11-2024 Monocytes/100 WBC (Bld) 8.9 % 0-10 [facility] Neutrophil percentageOrdered By: Venkat Malin on 12-11-2024 Neutrophils/100 WBC (Bld) 53.8 % 47-70 [facility] Nucleated red blood cell per centageOrdered By: Venkat Malin on 12-11-2024 Nucleated RBC/100 WBC (Bld) [Ratio] 0 % 0-5 [facility] Platelet countOrdered By: Dov Gonzalez on 12-11-2024 Platelets (Bld) [#/Vol] 345 10*3/uL 150-450 [facility] RBC Auto (Bld) [#/Vol]Ordere d By: Venkat Malin on 12-11-2024 RBC (Bld) [#/Vol] 4.15 10*6/uL Low 4.2-5.[address] [facility] White blood cell (WBC) count Ordered By: Venkat Malin on 12-11-2024 WBC (Bld) [#/Vol] 7.9 10*3/uL 4.4-11.0 [facility] Anion gap in Serum or Plasma Ordered By: Venkat Malin on 10-24-2024 Anion gap [Moles/Vol] 10 mmol/L 5-15 [facility] BUN/creatinine ratioOrdered By: Venkat Malin on 10-24-2024 Urea nitrogen/Creatinine [Mass ratio] 21.5 mg/mg High 10-20 [facility] Bilirubin, totalOrdered By: Venkat Malin on 10-24-2024 Bilirubin [Mass/Vol] 0.18 mg/dL 0.00-1.30 [facility] CBC-Complete Blood Cnt No Di ffon 10-24-2024 Erythrocyte distribution width (RBC) [Ratio] 15.2 % High 11.6-14.6 [facility] Comment on above: Order Comment: 302.1 Performed By: #### L 500.4050, L100.0500 #### [facility] [address] [place], [address] Hematocrit (Bld) [Volume fraction] 41.1 % Normal 37-47 [facility] Comment on above: Order Comment: 302.1 Performed By: #### L 500.4050, L100.0500 #### [facility] [address] [place], [address] Hemoglobin (Bld) [Mass/Vol] 12.7 g/dL Normal 12.0-15.0 [facility] Comment on above: Order Comment: 302.1 Performed By: #### L 500.4050, L100.0500 #### [facility] [address] [place], [address] MCH (RBC) [Entitic mass] 27.5 pg Normal 27.0-32.0 [facility] Comment on above: Order Comment: 302.1 Performed By: #### L 500.4050, L100.0500 #### [facility] [address] [place], [address] MCHC (RBC) [Mass/Vol] 30.9 g/dL Low 32-36 [facility] Comment on above: Order Comment: 302.1 Performed By: #### L 500.4050, L100.0500 #### [facility] [address] [place], [address] MCV (RBC) [Entitic vol] 89.0 fL Normal 81-99 [facility] Comment on above: Order Comment: 302.1 Performed By: #### L [id number], L100.0500 #### [facility] [address] [place], [address] Platelet mean volume (Bld) [Entitic vol] 11.1 fL Normal 6.2-12.0 [facility] Comment on above: Order Comment: 302.1 Performed By: #### L 500.4050, L100.0500 #### [facility] [address] [place], [address] Platelets (Bld) [#/Vol] 348 10*3/uL Normal 150-450 [facility] Comment on above: Order Comment: 302.1 Performed By: #### L 500.4050, L100.0500 #### [facility] [address] [place], [address] RBC (Bld) [#/Vol] 4.62 10*6/uL Normal 4.2-5.[address] [facility] Comment on above: Order Comment: 302.1 Performed By: #### L 500.4050, L100.0500 #### [facility] [address] [place], [address] RDW SD 49.9 fl High 35.1-43.9 [facility] Comment on above: Order Comment: 302.1 Performed By: #### L 500.4050, L100.0500 #### [facility] [address] [place], [address] WBC (Bld) [#/Vol] 7.9 10*3/uL Normal 4.4-11.0 [facility] Comment on above: Order Comment: 302.1 Performed By: #### L 500.4050, L100.0500 #### [facility] [address] [place], [address] Carbon dioxide, total [Moles /volume] in Central venous bloodOrdered By: Venkat Malin on 10-24-2024 CO2 [Moles/Vol] 21.9 mmol/L 21.0-32.0 [facility] Chloride assayOrdered By: Dov Gonzalez on 10-24-2024 Chloride [Moles/Vol] 108 mmol/L 98-108 [facility] Comprehensive Metabolic Prof ilon 10-24-2024 Albumin [Mass/Vol] 3.0 g/dL Low 3.5-5.0 [facility] Comment on above: Order Comment: 302.1 Performed By: #### L 500.4050, L100.0500 #### [facility] [address] [place], [address] Albumin/Globulin [Mass ratio] 0.7 {ratio} Low 0.9-2.4 [facility] Comment on above: Order Comment: 302.1 Performed By: #### L 500.4050, L100.0500 #### [facility] [address] [place], [address] ALK PHOS 130 U/L High 35-104 [facility] Comment on above: Order Comment: 302.1 Performed By: #### L 500.4050, L100.0500 #### [facility] [address] [place], [address] ALT [Catalytic activity/Vol] 15 U/L Normal <=34 [facility] Comment on above: Order Comment: 302.1 Performed By: #### L 500.4050, L100.0500 #### [facility] [address] [place], [address] AST [Catalytic activity/Vol] 22 U/L Normal <=31 [facility] Comment on above: Order Comment: 302.1 Performed By: #### L 500.4050, L100.0500 #### [facility] [address] [place], [address] Bilirubin [Mass/Vol] 0.18 mg/dL Normal 0.00-1.30 [facility] Comment on above: Order Comment: 302.1 Performed By: #### L 500.4050, L100.0500 #### [facility] [address] [place], [address] BUN/CRE 21.5 RATIO High 10-20 [facility] Comment on above: Order Comment: 302.1 Performed By: #### L 500.4050, L100.0500 #### [facility] [address] [place], [address] Calcium [Mass/Vol] 8.7 mg/dL Normal 7.6-11.0 [facility] Comment on above: Order Comment: 302.1 Performed By: #### L 500.4050, L100.0500 #### [facility] [address] [place], [address] Chloride [Moles/Vol] 108 mmol/L Normal 98-108 [facility] Comment on above: Order Comment: 302.1 Performed By: #### L 500.4050, L100.0500 #### [facility] [address] [place], [address] CO2 [Moles/Vol] 21.9 mmol/L Normal 21.0-32.0 [facility] Comment on above: Order Comment: 302.1 Performed By: #### L 500.4050, L100.0500 #### [facility] [address] [place], [address] Creatinine [Mass/Vol] 0.67 mg/dL Low 0.70-1.20 [facility] Comment on above: Order Comment: 302.1 Performed By: #### L 500.4050, L100.0500 #### [facility] [address] [place], [address] GAP 10 Normal 5-15 [facility] Comment on above: Order Comment: 302.1 Performed By: #### L 500.4050, L100.0500 #### [facility] [address] [place], [address] GFR/1.73 sq M.predicted among non-blacks MDRD (S/P/Bld) [Vol rate/Area] 107 mL/min/{1.73_m2} Normal >60 [facility] Comment on above: Order Comment: 302.1 Result Comment: mL/m in/1.73m2 CKD-EPI Creatinine Equation (2020) Performed By: #### L 500.4050, L100.0500 #### [facility] [address] [place], [address] Globulin (S) [Mass/Vol] 4.3 g/dL High 2.2-4.2 [facility] Comment on above: Order Comment: 302.1 Performed By: #### L 500.4050, L100.0500 #### [facility] [address] [place], [address] Glucose [Mass/Vol] 90 mg/dL Normal 70-99 [facility] Comment on above: Order Comment: 302.1 Performed By: #### L 500.4050, L100.0500 #### [facility] [address] [place], [address] Potassium [Moles/Vol] 3.9 mmol/L Normal 3.3-5.1 [facility] Comment on above: Order Comment: 302.1 Result Comment: Hemo lysis present, Results??could be affected. ?? Performed By: #### L 500.4050, L100.0500 #### [facility] [address] [place], [address] Sodium [Moles/Vol] 140 mmol/L Normal 133-145 [facility] Comment on above: Order Comment: 302.1 Performed By: #### L 500.4050, L100.0500 #### [facility] [address] [place], [address] T PROT 7.3 g/dL Normal 5.9-8.4 [facility] Comment on above: Order Comment: 302.1 Performed By: #### L 500.4050, L100.0500 #### [facility] [address] [place], [address] Urea nitrogen [Mass/Vol] 15 mg/dL Normal 4-19 [facility] Comment on above: Order Comment: 302.1 Performed By: #### L 500.4050, L100.0500 #### [facility] [address] [place], [address] Erythrocyte distribution wid th (RBC) [Ratio]Ordered By: Venkat Malin on 10-24-2024 Erythrocyte distribution width (RBC) [Entitic vol] 49.9 fL High 35.1-43.9 [facility] Erythrocyte distribution wid th ratioOrdered By: Venkat Malin on 10-24-2024 Erythrocyte distribution width (RBC) [Ratio] 15.2 % High 11.6-14.6 [facility] Erythrocyte distribution wid th standard deviationOrdered By: Venkat Malin on 10-24-2024 Erythrocyte distribution width (RBC) [Ratio] 49.9 fl High 35.1-43.9 [facility] GFR/1.73 sq M.predicted jose g non-blacks MDRD (S/P/Bld) [Vol rate/Area]Ordered By: Venkat Malin on 10-24-2024 Estimated GFR (MDRD) Non-Af Amer 107 >60 [facility] Comment on above: mL/min/1.73m2 CKD-EP I Creatinine Equation (2020) Glomerular filtration rate ( GFR) estimation/1.73 sq m using serum, plasma, or whole bOrdered By: Venkat Malin on 10-24-2024 GFR/1.73 sq M.predicted among non-blacks MDRD (S/P/Bld) [Vol rate/Area] 107 mL/min/{1.73_m2} >60 [facility] Comment on above: mL/min/1.73m2 CKD-EP I Creatinine Equation (2020) Hematocrit Auto (Bld) [Volum e fraction]Ordered By: Venkat Malin on 10-24-2024 Hematocrit (Bld) [Volume fraction] 41.1 % 37-47 [facility] Hemoglobin measurementOrdere d By: Venkat Malin on 10-24-2024 Hemoglobin (Bld) [Mass/Vol] 12.7 g/dL 12.0-15.0 [facility] - Chemistry and C hemistry - challengeOrdered By: Venkat Malin on 10-24-2024 AST [Catalytic activity/Vol] 22 U/L <32 [facility] MCV (mean corpuscular volume ) determinationOrdered By: Venkat Malin on 10-24-2024 MCV (RBC) [Entitic vol] 89.0 fL 81-99 [facility] Mean corpuscular hemoglobin (MCH) determinationOrdered By: Venkat Malin on 10-24-2024 MCH (RBC) [Entitic mass] 27.5 pg 27.0-32.0 [facility] Mean corpuscular hemoglobin concentration (MCHC) determinationOrdered By: Venkat Malin on 10-24-2024 MCHC (RBC) [Mass/Vol] 30.9 g/dL Low 32-36 [facility] Mean platelet volume determi nationOrdered By: Venkat Malin on 10-24-2024 Platelet mean volume (Bld) [Entitic vol] 11.1 fL 6.2-12.0 [facility] Platelet countOrdered By: Dov Gonzalez on 10-24-2024 Platelets (Bld) [#/Vol] 348 10*3/uL 150-450 [facility] Potassium (Unsp spec) [Mass/ Vol]Ordered By: Venkat Malin on 10-24-2024 Potassium [Moles/Vol] 3.9 mmol/L 3.3-5.1 [facility] Comment on above: Hemolysis present, R esults could be affected. Potassium measurement (mass/ volume)Ordered By: Venkat Malin on 10-24-2024 Potassium (Unsp spec) [Mass/Vol] 3.9 mmol/L 3.3-5.1 [facility] Comment on above: Hemolysis present, R esults could be affected. RBC Auto (Bld) [#/Vol]Ordere d By: Venkat Malin on 10-24-2024 RBC (Bld) [#/Vol] 4.62 10*6/uL 4.2-5.[address] [facility] Serum creatinine measurement (mass/volume)Ordered By: Venkat Malin on 10-24-2024 Creatinine [Mass/Vol] 0.67 mg/dL Low 0.70-1.20 [facility] Serum globulin measurementOr dered By: Venkat Malin on 10-24-2024 Globulin (S) [Mass/Vol] 4.3 g/dL High 2.2-4.2 [facility] Serum glucose measurement (m ass/volume)Ordered By: Venkat Malin on 10-24-2024 Glucose [Mass/Vol] 90 mg/dL 70-99 [facility] Serum or plasma alanine gregorio otransferase (ALT) measurementOrdered By: Venkat Malin on 10-24-2024 ALT [Catalytic activity/Vol] 15 U/L <35 [facility] Serum or plasma albumin kavin urement (mass/volume)Ordered By: Venkat Malin on 10-24-2024 Albumin [Mass/Vol] 3.0 g/dL Low 3.5-5.0 [facility] Serum or plasma albumin/glob ulin mass ratioOrdered By: Venkat Malin on 10-24-2024 Albumin/Globulin [Mass ratio] 0.7 {ratio} Low 0.9-2.4 [facility] Serum or plasma alkaline raymond sphatase measurementOrdered By: Venkat Malin on 10-24-2024 ALP [Catalytic activity/Vol] 130 U/L High 35-104 [facility] Serum or plasma calcium kavin urement (mass/volume)Ordered By: Venkat Malin on 10-24-2024 Calcium [Mass/Vol] 8.7 mg/dL 7.6-11.0 [facility] Serum or plasma urea nitroge n measurement (mass/volume)Ordered By: Venkat Malin on 10-24-2024 Urea nitrogen [Mass/Vol] 15 mg/dL 4-19 [facility] Sodium levelOrdered By: Sai Malin on 10-24-2024 Sodium [Moles/Vol] 140 mmol/L 133-145 [facility] Total proteinOrdered By: Sarah Malin on 10-24-2024 Protein [Mass/Vol] 7.3 g/dL 5.9-8.4 [facility] White blood cell (WBC) count Ordered By: Venkat Malin on 10-24-2024 WBC (Bld) [#/Vol] 7.9 10*3/uL 4.4-11.0 [facility] Albumin to globulin ratioOrd ered By: Venkat Malin on 09-03-2024 Albumin/Globulin [Mass ratio] 0.5 {ratio} Low 0.9-2.4 [facility] Bilirubin, totalOrdered By: Venkat Malin on 09-03-2024 Bilirubin [Mass/Vol] 0.20 mg/dL 0.20-1.00 [facility] Comment on above: For patients on eltr ombopag therapy, use of Dimension [place] TBIL is not recommended. Blood urea nitrogen (BUN)/cr eatinine ratioOrdered By: Venkat Malin on 09-03-2024 Urea nitrogen/Creatinine [Mass ratio] 24.2 mg/mg High 10-20 [facility] CBC-Complete Blood Cnt No Di ffon 09-03-2024 Erythrocyte distribution width (RBC) [Ratio] 15.0 % High 11.6-14.6 [facility] Comment on above: Order Comment: 302-1 Performed By: #### L 500.4050, L100.0500 #### [facility] [address] [place], [address] Hematocrit (Bld) [Volume fraction] 37.9 % Normal 37-47 [facility] Comment on above: Order Comment: 302-1 Performed By: #### L 500.4050, L100.0500 #### [facility] [address] [place], [address] Hemoglobin (Bld) [Mass/Vol] 11.6 g/dL Low 12.0-15.0 [facility] Comment on above: Order Comment: 302-1 Performed By: #### L 500.4050, L100.0500 #### [facility] [address] [place], [address] MCH (RBC) [Entitic mass] 27.4 pg Normal 27.0-32.0 [facility] Comment on above: Order Comment: 302-1 Performed By: #### L 500.4050, L100.0500 #### [facility] [address] [place], [address] MCHC (RBC) [Mass/Vol] 30.6 g/dL Low 32-36 [facility] Comment on above: Order Comment: 302-1 Performed By: #### L 500.4050, L100.0500 #### [facility] [address] [place], [address] MCV (RBC) [Entitic vol] 89.4 fL Normal 81-99 [facility] Comment on above: Order Comment: 302-1 Performed By: #### L 500.4050, L100.0500 #### [facility] [address] [place], [address] Platelet mean volume (Bld) [Entitic vol] 11.2 fL Normal 6.2-12.0 [facility] Comment on above: Order Comment: 302-1 Performed By: #### L 500.4050, L100.0500 #### [facility] [address] [place], [address] Platelets (Bld) [#/Vol] 344 10*3/uL Normal 150-450 [facility] Comment on above: Order Comment: 302-1 Performed By: #### L 500.4050, L100.0500 #### [facility] [address] [place], [address] RBC (Bld) [#/Vol] 4.24 10*6/uL Normal 4.2-5.[address] [facility] Comment on above: Order Comment: 302-1 Performed By: #### L 500.4050, L100.0500 #### [facility] [address] [place], [address] RDW SD 49.1 fl High 35.1-43.9 [facility] Comment on above: Order Comment: 302-1 Performed By: #### L 500.4050, L100.0500 #### [facility] [address] [place], [address] WBC (Bld) [#/Vol] 7.0 10*3/uL Normal 4.4-11.0 [facility] Comment on above: Order Comment: 302-1 Performed By: #### L 500.4050, L100.0500 #### [facility] [address] [place], [address] Carbon dioxide measurementOr dered By: Venkat Malin on 09-03-2024 CO2 [Moles/Vol] 23.0 mmol/L 21.0-32.0 [facility] Chloride measurementOrdered By: Venkat Malin on 09-03-2024 Chloride [Moles/Vol] 109 mmol/L High 98-107 [facility] Comprehensive Metabolic Prof ilon 09-03-2024 Albumin [Mass/Vol] 2.3 g/dL Low 3.2-5.0 [facility] Comment on above: Order Comment: 302-1 Performed By: #### L 500.4050, L100.0500 #### [facility] [address] [place], [address] Albumin/Globulin [Mass ratio] 0.5 {ratio} Low 0.9-2.4 [facility] Comment on above: Order Comment: 302-1 Performed By: #### L 500.4050, L100.0500 #### [facility] [address] [place], [address] ALK P 116 U/L Normal 45-117 [facility] Comment on above: Order Comment: 302-1 Performed By: #### L 500.4050, L100.0500 #### [facility] [address] [place], [address] ALT [Catalytic activity/Vol] 15 U/L Normal 13-56 [facility] Comment on above: Order Comment: 302-1 Performed By: #### L 500.4050, L100.0500 #### [facility] [address] [place], [address] AST [Catalytic activity/Vol] 13 U/L Low 15-37 [facility] Comment on above: Order Comment: 302-1 Performed By: #### L 500.4050, L100.0500 #### [facility] [address] [place], [address] Bilirubin [Mass/Vol] 0.20 mg/dL Normal 0.20-1.00 [facility] Comment on above: Order Comment: 302-1 Result Comment: For patients on eltrombopag therapy, use of Dimension [place] TBIL is not recommended. Performed By: #### L 500.4050, L100.0500 #### [facility] [address] [place], [address] BUN/CRE 24.2 RATIO High 10-20 [facility] Comment on above: Order Comment: 302-1 Performed By: #### L 500.4050, L100.0500 #### [facility] [address] [place], [address] CA,Total 8.8 mg/dL Normal 8.5-10.1 [facility] Comment on above: Order Comment: 302-1 Performed By: #### L 500.4050, L100.0500 #### [facility] [address] [place], [address] Chloride [Moles/Vol] 109 mmol/L High 98-107 [facility] Comment on above: Order Comment: 302-1 Performed By: #### L 500.4050, L100.0500 #### [facility] [address] [place], [address] CO2 [Moles/Vol] 23.0 mmol/L Normal 21.0-32.0 [facility] Comment on above: Order Comment: 302-1 Performed By: #### L 500.4050, L100.0500 #### [facility] [address] [place], [address] Creatinine [Mass/Vol] 0.79 mg/dL Normal 0.55-1.02 [facility] Comment on above: Order Comment: 302-1 Result Comment: The validity of the calculated GFR GFRAA in patients over 70 years has not been determined. Clinical correlation is essential. Performed By: #### L 500.4050, L100.0500 #### [facility] [address] [place], [address] EST GFR - AA 100 mL/min Normal >60 [facility] Comment on above: Order Comment: 302- Result Comment: Afri can Spanish GFR Calc Performed By: #### L 500.4050, L100.0500 #### [facility] [address] [place], [address] GAP 6 Normal 5-15 [facility] Comment on above: Order Comment: 302-1 Performed By: #### L 500.4050, L100.0500 #### [facility] [address] [place], [address] GFR/1.73 sq M.predicted among non-blacks MDRD (S/P/Bld) [Vol rate/Area] 83 mL/min/{1.73_m2} Normal >60 [facility] Comment on above: Order Comment: 302- Result Comment: Non- GFR Calc Performed By: #### L 500.4050, L100.0500 #### [facility] [address] [place], [address] Globulin (S) [Mass/Vol] 5.1 g/dL High 2.2-4.2 [facility] Comment on above: Order Comment: 302-1 Performed By: #### L 500.4050, L100.0500 #### [facility] [address] [place], [address] Glucose [Mass/Vol] 84 mg/dL Normal 74-106 [facility] Comment on above: Order Comment: 302-1 Performed By: #### L 500.4050, L100.0500 #### [facility] [address] [place], [address] Potassium [Moles/Vol] 3.7 mmol/L Normal 3.5-5.1 [facility] Comment on above: Order Comment: 302-1 Performed By: #### L 500.4050, L100.0500 #### [facility] [address] [place], [address] Sodium [Moles/Vol] 138 mmol/L Normal 136-145 [facility] Comment on above: Order Comment: 302-1 Performed By: #### L 500.4050, L100.0500 #### [facility] [address] [place], [address] T PROT 7.4 g/dL Normal 6.4-8.2 [facility] Comment on above: Order Comment: 302-1 Performed By: #### L 500.4050, L100.0500 #### [facility] [address] [place], [address] Urea nitrogen [Mass/Vol] 19 mg/dL High 7-18 [facility] Comment on above: Order Comment: 302-1 Performed By: #### L 500.4050, L100.0500 #### [facility] [address] [place], [address] Erythrocyte distribution wid th ratioOrdered By: Venkat Malin on 09-03-2024 Erythrocyte distribution width (RBC) [Ratio] 15.0 % High 11.6-14.6 [facility] Erythrocyte distribution wid th standard deviationOrdered By: Venkat Malin on 09-03-2024 Erythrocyte distribution width (RBC) [Entitic vol] 49.1 fL High 35.1-43.9 [facility] Erythrocyte distribution width (RBC) [Ratio] 49.1 fl High 35.1-43.9 [facility] Estimated glomerular filtrat ion rate (GFR) AmericanOrdered By: Venkat Malin on 09-03-2024 Estimated GFR (MDRD) Amer 100 mL/min >60 [facility] Comment on above: GFR Calc Glomerular filtration rate ( GFR) estimationOrdered By: Venkat Malin on 09-03-2024 Estimated GFR (MDRD) Non-Af Amer 83 mL/min >60 [facility] Comment on above: Non- GFR Calc GFR/1.73 sq M.predicted among non-blacks MDRD (S/P/Bld) [Vol rate/Area] 83 mL/min/{1.73_m2} >60 [facility] Comment on above: Non- GFR Calc Glucose measurementOrdered B y: Venkat Malin on 09-03-2024 Glucose [Mass/Vol] 84 mg/dL 74-106 [facility] Hematocrit Auto (Bld) [Volum e fraction]Ordered By: Venkat Malin on 09-03-2024 Hematocrit (Bld) [Volume fraction] 37.9 % 37-47 [facility] Hemoglobin measurementOrdere d By: Venkat Malin on 09-03-2024 Hemoglobin (Bld) [Mass/Vol] 11.6 g/dL Low 12.0-15.0 [facility] - Chemistry and C hemistry - challengeOrdered By: Venkat Malin on 09-03-2024 AST [Catalytic activity/Vol] 13 U/L Low 15-37 [facility] MCV (mean corpuscular volume ) determinationOrdered By: Venkat Malin on 09-03-2024 MCV (RBC) [Entitic vol] 89.4 fL 81-99 [facility] Mean corpuscular hemoglobin (MCH) determinationOrdered By: Venkat Malin on 09-03-2024 MCH (RBC) [Entitic mass] 27.4 pg 27.0-32.0 [facility] Mean corpuscular hemoglobin concentration (MCHC) determinationOrdered By: Venkat Malin on 09-03-2024 MCHC (RBC) [Mass/Vol] 30.6 g/dL Low 32-36 [facility] Mean platelet volume determi nationOrdered By: Venkat Malin on 09-03-2024 Platelet mean volume (Bld) [Entitic vol] 11.2 fL 6.2-12.0 [facility] Platelet countOrdered By: Dov Gonzalez on 09-03-2024 Platelets (Bld) [#/Vol] 344 10*3/uL 150-450 [facility] Potassium measurementOrdered By: Venkat Malin on 09-03-2024 Potassium [Moles/Vol] 3.7 mmol/L 3.5-5.1 [facility] RBC Auto (Bld) [#/Vol]Ordere d By: Venkat Malin on 09-03-2024 RBC (Bld) [#/Vol] 4.24 10*6/uL 4.2-5.[address] [facility] Serum anion gap measurementO rdered By: Venkat Malin on 09-03-2024 Anion gap [Moles/Vol] 6 mmol/L 5-15 [facility] Serum globulin measurementOr dered By: Venkat Malin on 09-03-2024 Globulin (S) [Mass/Vol] 5.1 g/dL High 2.2-4.2 [facility] Serum or plasma alanine gregorio otransferase (ALT) measurementOrdered By: Venkat Malin on 09-03-2024 ALT [Catalytic activity/Vol] 15 U/L 13-56 [facility] Serum or plasma albumin kavin urement (mass/volume)Ordered By: Venkat Malin on 09-03-2024 Albumin [Mass/Vol] 2.3 g/dL Low 3.2-5.0 [facility] Serum or plasma alkaline raymond sphatase measurementOrdered By: Venkat Malin on 09-03-2024 ALP [Catalytic activity/Vol] 116 U/L 45-117 [facility] Serum or plasma calcium kavin urement (mass/volume)Ordered By: Venkat Malin on 09-03-2024 Calcium [Mass/Vol] 8.8 mg/dL 8.5-10.1 [facility] Serum or plasma creatinine m easurement (mass/volume)Ordered By: Venkat Malin on 09-03-2024 Creatinine [Mass/Vol] 0.79 mg/dL 0.55-1.02 [facility] Comment on above: The validity of the calculated GFR & GFRAA in patients over 70 years has not been determined. Clinical correlation is essential. Serum or plasma urea nitroge n measurement (mass/volume)Ordered By: Venkat Malin on 09-03-2024 Urea nitrogen [Mass/Vol] 19 mg/dL High 7-18 [facility] Sodium levelOrdered By: Sai Malin on 09-03-2024 Sodium [Moles/Vol] 138 mmol/L 136-145 [facility] Total proteinOrdered By: Sarah Malin on 09-03-2024 Protein [Mass/Vol] 7.4 g/dL 6.4-8.2 [facility] White blood cell (WBC) count Ordered By: Venkat Malin on 09-03-2024 WBC (Bld) [#/Vol] 7.0 10*3/uL 4.4-11.0 [facility] Albumin to globulin ratioOrd ered By: Venkat Malin on 07-25-2024 Albumin/Globulin [Mass ratio] 0.5 {ratio} Low 0.9-2.4 [facility] Bilirubin, totalOrdered By: Venkat Malin on 07-25-2024 Bilirubin [Mass/Vol] 0.20 mg/dL 0.20-1.00 [facility] Comment on above: For patients on eltr ombopag therapy, use of Dimension [place] TBIL is not recommended. Blood urea nitrogen (BUN)/cr eatinine ratioOrdered By: Venkat Malin on 07-25-2024 Urea nitrogen/Creatinine [Mass ratio] 22.3 mg/mg High 10-20 [facility] CBC-Complete Blood Cnt No Di ffon 07-25-2024 Erythrocyte distribution width (RBC) [Ratio] 14.9 % High 11.6-14.6 [facility] Comment on above: Order Comment: 302.1 Performed By: #### L 100.0500, L500.4050 #### [facility] [address] [place], [address] Hematocrit (Bld) [Volume fraction] 38.9 % Normal 37-47 [facility] Comment on above: Order Comment: 302.1 Performed By: #### L 100.0500, L500.4050 #### [facility] [address] [place], [address] Hemoglobin (Bld) [Mass/Vol] 11.9 g/dL Low 12.0-15.0 [facility] Comment on above: Order Comment: 302.1 Performed By: #### L 100.0500, L500.4050 #### [facility] [address] [place], [address] MCH (RBC) [Entitic mass] 27.2 pg Normal 27.0-32.0 [facility] Comment on above: Order Comment: 302.1 Performed By: #### L 100.0500, L500.4050 #### [facility] [address] [place], [address] MCHC (RBC) [Mass/Vol] 30.6 g/dL Low 32-36 [facility] Comment on above: Order Comment: 302.1 Performed By: #### L 100.0500, L500.4050 #### [facility] [address] [place], [address] MCV (RBC) [Entitic vol] 89.0 fL Normal 81-99 [facility] Comment on above: Order Comment: 302.1 Performed By: #### L 100.0500, L500.4050 #### [facility] [address] [place], [address] Platelet mean volume (Bld) [Entitic vol] 10.7 fL Normal 6.2-12.0 [facility] Comment on above: Order Comment: 302.1 Performed By: #### L 100.0500, L500.4050 #### [facility] [address] [place], [address] Platelets (Bld) [#/Vol] 401 10*3/uL Normal 150-450 [facility] Comment on above: Order Comment: 302.1 Performed By: #### L 100.0500, L500.4050 #### [facility] [address] [place], [address] RBC (Bld) [#/Vol] 4.37 10*6/uL Normal 4.2-5.[address] [facility] Comment on above: Order Comment: 302.1 Performed By: #### L 100.0500, L500.4050 #### [facility] [address] [place], [address] RDW SD 48.8 fl High 35.1-43.9 [facility] Comment on above: Order Comment: 302.1 Performed By: #### L 100.0500, L500.4050 #### [facility] [address] [place], [address] WBC (Bld) [#/Vol] 7.6 10*3/uL Normal 4.4-11.0 [facility] Comment on above: Order Comment: 302.1 Performed By: #### L 100.0500, L500.4050 #### [facility] [address] [place], [address] Carbon dioxide measurementOr dered By: Venkat Malin on 07-25-2024 CO2 [Moles/Vol] 26.0 mmol/L 21.0-32.0 [facility] Chloride measurementOrdered By: Venkat Malin on 07-25-2024 Chloride [Moles/Vol] 111 mmol/L High 98-107 [facility] Comprehensive Metabolic Prof ilon 07-25-2024 Albumin [Mass/Vol] 2.5 g/dL Low 3.2-5.0 [facility] Comment on above: Order Comment: 302.1 Performed By: #### L 100.0500, L500.4050 #### [facility] [address] [place], [address] Albumin/Globulin [Mass ratio] 0.5 {ratio} Low 0.9-2.4 [facility] Comment on above: Order Comment: 302.1 Performed By: #### L 100.0500, L500.4050 #### [facility] [address] [place], [address] ALK P 121 U/L High 45-117 [facility] Comment on above: Order Comment: 302.1 Performed By: #### L 100.0500, L500.4050 #### [facility] [address] [place], [address] ALT [Catalytic activity/Vol] 23 U/L Normal 13-56 [facility] Comment on above: Order Comment: 302.1 Performed By: #### L 100.0500, L500.4050 #### [facility] [address] [place], [address] AST [Catalytic activity/Vol] 21 U/L Normal 15-37 [facility] Comment on above: Order Comment: 302.1 Performed By: #### L 100.0500, L500.4050 #### [facility] [address] [place], [address] Bilirubin [Mass/Vol] 0.20 mg/dL Normal 0.20-1.00 [facility] Comment on above: Order Comment: 302.1 Result Comment: For patients on eltrombopag therapy, use of Dimension [place] TBIL is not recommended. Performed By: #### L 100.0500, L500.4050 #### [facility] [address] [place], [address] BUN/CRE 22.3 RATIO High 10-20 [facility] Comment on above: Order Comment: 302.1 Performed By: #### L 100.0500, L500.4050 #### [facility] [address] [place], [address] CA,Total 9.0 mg/dL Normal 8.5-10.1 [facility] Comment on above: Order Comment: 302.1 Performed By: #### L 100.0500, L500.4050 #### [facility] [address] [place], [address] Chloride [Moles/Vol] 111 mmol/L High 98-107 [facility] Comment on above: Order Comment: 302.1 Performed By: #### L 100.0500, L500.4050 #### [facility] [address] [place], [address] CO2 [Moles/Vol] 26.0 mmol/L Normal 21.0-32.0 [facility] Comment on above: Order Comment: 302.1 Performed By: #### L 100.0500, L500.4050 #### [facility] [address] [place], [address] Creatinine [Mass/Vol] 0.72 mg/dL Normal 0.55-1.02 [facility] Comment on above: Order Comment: 302.1 Result Comment: The validity of the calculated GFR GFRAA in patients over 70 years has not been determined. Clinical correlation is essential. Performed By: #### L 100.0500, L500.4050 #### [facility] [address] [place], [address] EST GFR - AA 112 mL/min Normal >60 [facility] Comment on above: Order Comment: 302.1 Result Comment: Afri can Spanish GFR Calc Performed By: #### L 100.0500, L500.4050 #### [facility] [address] [place], [address] GAP 3 Low 5-15 [facility] Comment on above: Order Comment: 302.1 Performed By: #### L 100.0500, L500.4050 #### [facility] [address] [place], [address] GFR/1.73 sq M.predicted among non-blacks MDRD (S/P/Bld) [Vol rate/Area] 92 mL/min/{1.73_m2} Normal >60 [facility] Comment on above: Order Comment: 302.1 Result Comment: Non- GFR Calc Performed By: #### L 100.0500, L500.4050 #### [facility] [address] [place], [address] Globulin (S) [Mass/Vol] 5.0 g/dL High 2.2-4.2 [facility] Comment on above: Order Comment: 302.1 Performed By: #### L 100.0500, L500.4050 #### [facility] [address] [place], [address] Glucose [Mass/Vol] 104 mg/dL Normal 74-106 [facility] Comment on above: Order Comment: 302.1 Result Comment: Fast ing Glucose result from 100 to 125 mg/dL suggests IMPAIRED HOMEOSTASIS per A.D.A. criteria. Performed By: #### L 100.0500, L500.4050 #### [facility] [address] [place], [address] Potassium [Moles/Vol] 3.8 mmol/L Normal 3.5-5.1 [facility] Comment on above: Order Comment: 302.1 Performed By: #### L 100.0500, L500.4050 #### [facility] [address] [place], [address] Sodium [Moles/Vol] 140 mmol/L Normal 136-145 [facility] Comment on above: Order Comment: 302.1 Performed By: #### L 100.0500, L500.4050 #### [facility] [address] [place], [address] T PROT 7.5 g/dL Normal 6.4-8.2 [facility] Comment on above: Order Comment: 302.1 Performed By: #### L 100.0500, L500.4050 #### [facility] [address] [place], [address] Urea nitrogen [Mass/Vol] 16 mg/dL Normal 7-18 [facility] Comment on above: Order Comment: 302.1 Performed By: #### L 100.0500, L500.4050 #### [facility] [address] [place], [address] Erythrocyte distribution wid th ratioOrdered By: Veknat Malin on 07-25-2024 Erythrocyte distribution width (RBC) [Ratio] 14.9 % High 11.6-14.6 [facility] Erythrocyte distribution wid th standard deviationOrdered By: Venkat Malin on 07-25-2024 Erythrocyte distribution width (RBC) [Entitic vol] 48.8 fL High 35.1-43.9 [facility] Estimated glomerular filtrat ion rate (GFR) AmericanOrdered By: Venkat Malin on 07-25-2024 Estimated GFR (MDRD) Amer 112 mL/min >60 [facility] Comment on above: GFR Calc Glomerular filtration rate ( GFR) estimationOrdered By: Venkat Malin on 07-25-2024 Estimated GFR (MDRD) Non-Af Amer 92 mL/min >60 [facility] Comment on above: Non- GFR Calc Glucose measurementOrdered B y: Venkat Malin on 07-25-2024 Glucose [Mass/Vol] 104 mg/dL 74-106 [facility] Comment on above: Fasting Glucose resu lt from 100 to 125 mg/dL suggests IMPAIRED HOMEOSTASIS per A.D.A. criteria. Hematocrit Auto (Bld) [Volum e fraction]Ordered By: Venkat Malin on 07-25-2024 Hematocrit (Bld) [Volume fraction] 38.9 % 37-47 [facility] Hemoglobin measurementOrdere d By: Venkat Malin on 07-25-2024 Hemoglobin (Bld) [Mass/Vol] 11.9 g/dL Low 12.0-15.0 [facility] - Chemistry and C hemistry - challengeOrdered By: Venkat Malin on 07-25-2024 AST [Catalytic activity/Vol] 21 U/L 15-37 [facility] MCV (mean corpuscular volume ) determinationOrdered By: Venkat Malin on 07-25-2024 MCV (RBC) [Entitic vol] 89.0 fL 81-99 [facility] Mean corpuscular hemoglobin (MCH) determinationOrdered By: Venkat Malin on 07-25-2024 MCH (RBC) [Entitic mass] 27.2 pg 27.0-32.0 [facility] Mean corpuscular hemoglobin concentration (MCHC) determinationOrdered By: Venkat Malin on 07-25-2024 MCHC (RBC) [Mass/Vol] 30.6 g/dL Low 32-36 [facility] Mean platelet volume determi nationOrdered By: Venkat Malin on 07-25-2024 Platelet mean volume (Bld) [Entitic vol] 10.7 fL 6.2-12.0 [facility] Platelet countOrdered By: Dov Gonzalez on 07-25-2024 Platelets (Bld) [#/Vol] 401 10*3/uL 150-450 [facility] Potassium measurementOrdered By: Venkat Malin on 07-25-2024 Potassium [Moles/Vol] 3.8 mmol/L 3.5-5.1 [facility] RBC Auto (Bld) [#/Vol]Ordere d By: Venkat Malin on 07-25-2024 RBC (Bld) [#/Vol] 4.37 10*6/uL 4.2-5.[address] [facility] Serum anion gap measurementO rdered By: Venkat Malin on 07-25-2024 Anion gap [Moles/Vol] 3 mmol/L Low 5-15 [facility] Serum globulin measurementOr dered By: Venkat Malin on 07-25-2024 Globulin (S) [Mass/Vol] 5.0 g/dL High 2.2-4.2 [facility] Serum or plasma alanine gregorio otransferase (ALT) measurementOrdered By: Venkat Malin on 07-25-2024 ALT [Catalytic activity/Vol] 23 U/L 13-56 [facility] Serum or plasma albumin kavin urement (mass/volume)Ordered By: Venkat Malin on 07-25-2024 Albumin [Mass/Vol] 2.5 g/dL Low 3.2-5.0 [facility] Serum or plasma alkaline raymond sphatase measurementOrdered By: Venkat Malin on 07-25-2024 ALP [Catalytic activity/Vol] 121 U/L High 45-117 [facility] Serum or plasma calcium kavin urement (mass/volume)Ordered By: Venkat Malin on 07-25-2024 Calcium [Mass/Vol] 9.0 mg/dL 8.5-10.1 [facility] Serum or plasma creatinine m easurement (mass/volume)Ordered By: Venkat Malin on 07-25-2024 Creatinine [Mass/Vol] 0.72 mg/dL 0.55-1.02 [facility] Comment on above: The validity of the calculated GFR & GFRAA in patients over 70 years has not been determined. Clinical correlation is essential. Serum or plasma urea nitroge n measurement (mass/volume)Ordered By: Venkat Malin on 07-25-2024 Urea nitrogen [Mass/Vol] 16 mg/dL 7-18 [facility] Sodium levelOrdered By: Sai Malin on 07-25-2024 Sodium [Moles/Vol] 140 mmol/L 136-145 [facility] Total proteinOrdered By: Sarah Malin on 07-25-2024 Protein [Mass/Vol] 7.5 g/dL 6.4-8.2 [facility] White blood cell (WBC) count Ordered By: Venkat Malin on 07-25-2024 WBC (Bld) [#/Vol] 7.6 10*3/uL 4.4-11.0 [facility] Albumin to globulin ratioOrd ered By: Venkat Malin on 06-24-2024 Albumin/Globulin [Mass ratio] 0.6 {ratio} Low 0.9-2.4 [facility] Bilirubin, totalOrdered By: Venkat Malin on 06-24-2024 Bilirubin [Mass/Vol] mg/dL Low 0.20-1.00 [facility] Comment on above: For patients on eltr ombopag therapy, use of Dimension [place] TBIL is not recommended. Blood urea nitrogen (BUN)/cr eatinine ratioOrdered By: Venkat Malin on 06-24-2024 Urea nitrogen/Creatinine [Mass ratio] 27.9 mg/mg High 10- [facility] CBC-Complete Blood Cnt No Di ffon 06-24-2024 Erythrocyte distribution width (RBC) [Ratio] 15.0 % High 11.6-14.6 [facility] Comment on above: Order Comment: 302-1 Performed By: #### L 500.4050, L100.0500 #### [facility] [place], [address] Hematocrit (Bld) [Volume fraction] 38.9 % Normal 37-47 [facility] Comment on above: Order Comment: 302-1 Performed By: #### L 500.4050, L100.0500 #### [facility] [address] [place], [address] Hemoglobin (Bld) [Mass/Vol] 11.7 g/dL Low 12.0-15.0 [facility] Comment on above: Order Comment: 302-1 Performed By: #### L 500.4050, L100.0500 #### [facility] [address] [place], [address] MCH (RBC) [Entitic mass] 27.1 pg Normal 27.0-32.0 [facility] Comment on above: Order Comment: 302-1 Performed By: #### L 500.4050, L100.0500 #### [facility] [address] [place], [address] MCHC (RBC) [Mass/Vol] 30.1 g/dL Low 32-36 [facility] Comment on above: Order Comment: 302-1 Performed By: #### L 500.4050, L100.0500 #### [facility] [address] [place], [address] MCV (RBC) [Entitic vol] 90.0 fL Normal 81-99 [facility] Comment on above: Order Comment: 302-1 Performed By: #### L 500.4050, L100.0500 #### [facility] [address] [place], [address] Platelet mean volume (Bld) [Entitic vol] 11.4 fL Normal 6.2-12.0 [facility] Comment on above: Order Comment: 302-1 Performed By: #### L 500.4050, L100.0500 #### [facility] [address] [place], [address] Platelets (Bld) [#/Vol] 306 10*3/uL Normal 150-450 [facility] Comment on above: Order Comment: 302-1 Performed By: #### L 500.4050, L100.0500 #### [facility] [address] [place], [address] RBC (Bld) [#/Vol] 4.32 10*6/uL Normal 4.2-5.[address] [facility] Comment on above: Order Comment: 302-1 Performed By: #### L 500.4050, L100.0500 #### [facility] [address] [place], [address] RDW SD 50.2 fl High 35.1-43.9 [facility] Comment on above: Order Comment: 302-1 Performed By: #### L 500.4050, L100.0500 #### [facility] [address] [place], [address] WBC (Bld) [#/Vol] 7.3 10*3/uL Normal 4.4-11.0 [facility] Comment on above: Order Comment: 302-1 Performed By: #### L 500.4050, L100.0500 #### [facility] [address] [place], [address] Carbon dioxide measurementOr dered By: Venkat Malin on 06-24-2024 CO2 [Moles/Vol] 25.0 mmol/L 21.0-32.0 [facility] Chloride measurementOrdered By: Venkat Malin on 06-24-2024 Chloride [Moles/Vol] 113 mmol/L High 98-107 [facility] Comprehensive Metabolic Prof ilon 06-24-2024 Albumin [Mass/Vol] 2.7 g/dL Low 3.2-5.0 [facility] Comment on above: Order Comment: 302-1 Performed By: #### L 500.4050, L100.0500 #### [facility] [address] [place], [address] Albumin/Globulin [Mass ratio] 0.6 {ratio} Low 0.9-2.4 [facility] Comment on above: Order Comment: 302-1 Performed By: #### L 500.4050, L100.0500 #### [facility] [address] [place], [address] ALK P 115 U/L Normal 45-117 [facility] Comment on above: Order Comment: 302-1 Performed By: #### L 500.4050, L100.0500 #### [facility] [address] [place], [address] ALT [Catalytic activity/Vol] 13 U/L Normal 13-56 [facility] Comment on above: Order Comment: 302-1 Performed By: #### L 500.4050, L100.0500 #### [facility] [address] [place], [address] AST [Catalytic activity/Vol] 14 U/L Low 15-37 [facility] Comment on above: Order Comment: 302-1 Performed By: #### L 500.4050, L100.0500 #### [facility] [address] [place], [address] BUN/CRE 27.9 RATIO High 10-20 [facility] Comment on above: Order Comment: 302-1 Performed By: #### L 500.4050, L100.0500 #### [facility] [address] [place], [address] CA,Total 8.8 mg/dL Normal 8.5-10.1 [facility] Comment on above: Order Comment: 302-1 Performed By: #### L 500.4050, L100.0500 #### [facility] [address] [place], [address] Chloride [Moles/Vol] 113 mmol/L High 98-107 [facility] Comment on above: Order Comment: 302-1 Performed By: #### L 500.4050, L100.0500 #### [facility] [address] [place], [address] CO2 [Moles/Vol] 25.0 mmol/L Normal 21.0-32.0 [facility] Comment on above: Order Comment: 302-1 Performed By: #### L 500.4050, L100.0500 #### [facility] [address] [place], [address] Creatinine [Mass/Vol] 0.72 mg/dL Normal 0.55-1.02 [facility] Comment on above: Order Comment: 302- Result Comment: The validity of the calculated GFR GFRAA in patients over 70 years has not been determined. Clinical correlation is essential. Performed By: #### L 500.4050, L100.0500 #### [facility] [address] [place], [address] EST GFR - AA 111 mL/min Normal >60 [facility] Comment on above: Order Comment: 302- Result Comment: Afri can Spanish GFR Calc Performed By: #### L 500.4050, L100.0500 #### [facility] [address] [place], [address] GAP 4 Low 5-15 [facility] Comment on above: Order Comment: 302-1 Performed By: #### L 500.4050, L100.0500 #### [facility] [address] [place], [address] GFR/1.73 sq M.predicted among non-blacks MDRD (S/P/Bld) [Vol rate/Area] 92 mL/min/{1.73_m2} Normal >60 [facility] Comment on above: Order Comment: 302- Result Comment: Non- GFR Calc Performed By: #### L 500.4050, L100.0500 #### [facility] [address] [place], [address] Globulin (S) [Mass/Vol] 4.8 g/dL High 2.2-4.2 [facility] Comment on above: Order Comment: 302-1 Performed By: #### L 500.4050, L100.0500 #### [facility] [address] [place], [address] Glucose [Mass/Vol] 87 mg/dL Normal 74-106 [facility] Comment on above: Order Comment: 302-1 Performed By: #### L 500.4050, L100.0500 #### [facility] [address] [place], [address] Potassium [Moles/Vol] 3.5 mmol/L Normal 3.5-5.1 [facility] Comment on above: Order Comment: 302-1 Performed By: #### L 500.4050, L100.0500 #### [facility] [address] [place], [address] Sodium [Moles/Vol] 142 mmol/L Normal 136-145 [facility] Comment on above: Order Comment: 302-1 Performed By: #### L 500.4050, L100.0500 #### [facility] [address] [place], [address] T BILI < 0.10 Low 0.20-1.00 [facility] Comment on above: Order Comment: 302-1 Result Comment: For patients on eltrombopag therapy, use of Dimension [place] TBIL is not recommended. Performed By: #### L 500.4050, L100.0500 #### [facility] [address] [place], [address] T PROT 7.5 g/dL Normal 6.4-8.2 [facility] Comment on above: Order Comment: 302-1 Performed By: #### L 500.4050, L100.0500 #### [facility] [address] [place], [address] Urea nitrogen [Mass/Vol] 20 mg/dL High 7-18 [facility] Comment on above: Order Comment: 302-1 Performed By: #### L 500.4050, L100.0500 #### [facility] [address] [place], [address] Erythrocyte distribution wid th ratioOrdered By: Venkat Malin on 06-24-2024 Erythrocyte distribution width (RBC) [Ratio] 15.0 % High 11.6-14.6 [facility] Erythrocyte distribution wid th standard deviationOrdered By: Venkat Malin on 06-24-2024 Erythrocyte distribution width (RBC) [Entitic vol] 50.2 fL High 35.1-43.9 [facility] Estimated glomerular filtrat ion rate (GFR) AmericanOrdered By: Venkat Malin on 06-24-2024 Estimated GFR (MDRD) Amer 111 mL/min >60 [facility] Comment on above: GFR Calc Glomerular filtration rate ( GFR) estimationOrdered By: Venkat Malin on 06-24-2024 Estimated GFR (MDRD) Non-Af Amer 92 mL/min >60 [facility] Comment on above: Non- GFR Calc Glucose measurementOrdered B y: Venkat Malin on 06-24-2024 Glucose [Mass/Vol] 87 mg/dL 74-106 [facility] Hematocrit Auto (Bld) [Volum e fraction]Ordered By: Venkat Malin on 06-24-2024 Hematocrit (Bld) [Volume fraction] 38.9 % 37-47 [facility] Hemoglobin measurementOrdere d By: Venkat Malin on 06-24-2024 Hemoglobin (Bld) [Mass/Vol] 11.7 g/dL Low 12.0-15.0 [facility] - Chemistry and C hemistry - challengeOrdered By: Venkat Malin on 06-24-2024 AST [Catalytic activity/Vol] 14 U/L Low 15-37 [facility] MCV (mean corpuscular volume ) determinationOrdered By: Venkat Malin on 06-24-2024 MCV (RBC) [Entitic vol] 90.0 fL 81-99 [facility] Mean corpuscular hemoglobin (MCH) determinationOrdered By: Venkat Malin on 06-24-2024 MCH (RBC) [Entitic mass] 27.1 pg 27.0-32.0 [facility] Mean corpuscular hemoglobin concentration (MCHC) determinationOrdered By: Venkat Malin on 06-24-2024 MCHC (RBC) [Mass/Vol] 30.1 g/dL Low 32-36 [facility] Mean platelet volume determi nationOrdered By: Venkat Malin on 06-24-2024 Platelet mean volume (Bld) [Entitic vol] 11.4 fL 6.2-12.0 [facility] Platelet countOrdered By: Dov Gonzalez on 06-24-2024 Platelets (Bld) [#/Vol] 306 10*3/uL 150-450 [facility] Potassium measurementOrdered By: Venkat Malin on 06-24-2024 Potassium [Moles/Vol] 3.5 mmol/L 3.5-5.1 [facility] RBC Auto (Bld) [#/Vol]Ordere d By: Venkat Malin on 06-24-2024 RBC (Bld) [#/Vol] 4.32 10*6/uL 4.2-5.[address] [facility] Serum anion gap measurementO rdered By: Venkat Malin on 06-24-2024 Anion gap [Moles/Vol] 4 mmol/L Low 5-15 [facility] Serum globulin measurementOr dered By: Venkat Malin on 06-24-2024 Globulin (S) [Mass/Vol] 4.8 g/dL High 2.2-4.2 [facility] Serum or plasma alanine gregorio otransferase (ALT) measurementOrdered By: Venkat Malin on 06-24-2024 ALT [Catalytic activity/Vol] 13 U/L 13-56 [facility] Serum or plasma albumin kavin urement (mass/volume)Ordered By: Venkat Malin on 06-24-2024 Albumin [Mass/Vol] 2.7 g/dL Low 3.2-5.0 [facility] Serum or plasma alkaline raymond sphatase measurementOrdered By: Venkat Malin on 06-24-2024 ALP [Catalytic activity/Vol] 115 U/L 45-117 [facility] Serum or plasma calcium kavin urement (mass/volume)Ordered By: Venkat Malin on 06-24-2024 Calcium [Mass/Vol] 8.8 mg/dL 8.5-10.1 [facility] Serum or plasma creatinine m easurement (mass/volume)Ordered By: Venkat Malin on 06-24-2024 Creatinine [Mass/Vol] 0.72 mg/dL 0.55-1.02 [facility] Comment on above: The validity of the calculated GFR & GFRAA in patients over 70 years has not been determined. Clinical correlation is essential. Serum or plasma urea nitroge n measurement (mass/volume)Ordered By: Venkat Malin on 06-24-2024 Urea nitrogen [Mass/Vol] 20 mg/dL High 7-18 [facility] Sodium levelOrdered By: Sai Malin on 06-24-2024 Sodium [Moles/Vol] 142 mmol/L 136-145 [facility] Total proteinOrdered By: Sarah Malin on 06-24-2024 Protein [Mass/Vol] 7.5 g/dL 6.4-8.2 [facility] White blood cell (WBC) count Ordered By: Venkat Malin on 06-24-2024 WBC (Bld) [#/Vol] 7.3 10*3/uL 4.4-11.0 [facility] Miscellaneous Lab Procedureo n 06-10-2024 [facility] TEST Normal [facility] Comment on above: Order Comment: 302.1 Result Comment: TEST RESULTS LIMITS Oxcarbazepine (Trileptal),S Oxcarbazepine, 10 ug/mL 10-35 Detection Limit = 1 TESTING PERFORMED AT [facility]. ORIGINAL REPORT ON FILE IN LAB CONTAINS ADDITIONAL TEST SITE INFORMATION. Performed By: #### L 500.4050, L100.0500 #### [facility] [address] [place], [address] CBC-Complete Blood Cnt No Di ffon 06-03-2024 Erythrocyte distribution width (RBC) [Ratio] 15.6 % High 11.6-14.6 [facility] Comment on above: Order Comment: 302.1 Performed By: #### L 500.4050, L100.0500 #### [facility] [address] [place], [address] Hematocrit (Bld) [Volume fraction] 43.9 % Normal 37-47 [facility] Comment on above: Order Comment: 302.1 Performed By: #### L 500.4050, L100.0500 #### [facility] [address] [place], [address] Hemoglobin (Bld) [Mass/Vol] 13.4 g/dL Normal 12.0-15.0 [facility] Comment on above: Order Comment: 302.1 Performed By: #### L 500.4050, L100.0500 #### [facility] [address] [place], [address] MCH (RBC) [Entitic mass] 27.2 pg Normal 27.0-32.0 [facility] Comment on above: Order Comment: 302.1 Performed By: #### L 500.4050, L100.0500 #### [facility] [address] [place], [address] MCHC (RBC) [Mass/Vol] 30.5 g/dL Low 32-36 [facility] Comment on above: Order Comment: 302.1 Performed By: #### L 500.4050, L100.0500 #### [facility] [address] [place], [address] MCV (RBC) [Entitic vol] 89.2 fL Normal 81-99 [facility] Comment on above: Order Comment: 302.1 Performed By: #### L 500.4050, L100.0500 #### [facility] [address] [place], [address] Platelet mean volume (Bld) [Entitic vol] 11.3 fL Normal 6.2-12.0 [facility] Comment on above: Order Comment: 302.1 Performed By: #### L 500.4050, L100.0500 #### [facility] [address] [place], [address] Platelets (Bld) [#/Vol] 324 10*3/uL Normal 150-450 [facility] Comment on above: Order Comment: 302.1 Performed By: #### L 500.4050, L100.0500 #### [facility] [address] [place], [address] RBC (Bld) [#/Vol] 4.92 10*6/uL Normal 4.2-5.[address] [facility] Comment on above: Order Comment: 302.1 Performed By: #### L 500.4050, L100.0500 #### [facility] [address] [place], [address] RDW SD 50.7 fl High 35.1-43.9 [facility] Comment on above: Order Comment: 302.1 Performed By: #### L 500.4050, L100.0500 #### [facility] [address] [place], [address] WBC (Bld) [#/Vol] 5.2 10*3/uL Normal 4.4-11.0 [facility] Comment on above: Order Comment: 302.1 Performed By: #### L 500.4050, L100.0500 #### [facility] [address] [place], [address] Comprehensive Metabolic Prof karin 06-03-2024 Albumin [Mass/Vol] 2.8 g/dL Low 3.2-5.0 [facility] Comment on above: Order Comment: 302.1 Performed By: #### L 500.4050, L100.0500 #### [facility] [address] [place], [address] Albumin/Globulin [Mass ratio] 0.5 {ratio} Low 0.9-2.4 [facility] Comment on above: Order Comment: 302.1 Performed By: #### L 500.4050, L100.0500 #### [facility] [address] [place], [address] ALK P 113 U/L Normal 45-117 [facility] Comment on above: Order Comment: 302.1 Performed By: #### L 500.4050, L100.0500 #### [facility] [address] [place], [address] ALT [Catalytic activity/Vol] 18 U/L Normal 13-56 [facility] Comment on above: Order Comment: 302.1 Performed By: #### L 500.4050, L100.0500 #### [facility] [address] [place], [address] AST [Catalytic activity/Vol] 20 U/L Normal 15-37 [facility] Comment on above: Order Comment: 302.1 Result Comment: Slig ht Hemolysis, Result may be falsely increased. Performed By: #### L 500.4050, L100.0500 #### [facility] [address] [place], [address] Bilirubin [Mass/Vol] 0.40 mg/dL Normal 0.20-1.00 [facility] Comment on above: Order Comment: 302.1 Result Comment: For patients on eltrombopag therapy, use of Dimension [place] TBIL is not recommended. Performed By: #### L 500.4050, L100.0500 #### [facility] [address] [place], [address] BUN/CRE 19.0 RATIO Normal 10-20 [facility] Comment on above: Order Comment: 302.1 Performed By: #### L 500.4050, L100.0500 #### [facility] [address] [place], [address] CA,Total 9.0 mg/dL Normal 8.5-10.1 [facility] Comment on above: Order Comment: 302.1 Performed By: #### L 500.4050, L100.0500 #### [facility] [address] [place], [address] Chloride [Moles/Vol] 111 mmol/L High 98-107 [facility] Comment on above: Order Comment: 302.1 Performed By: #### L 500.4050, L100.0500 #### [facility] [address] [place], [address] CO2 [Moles/Vol] 22.0 mmol/L Normal 21.0-32.0 [facility] Comment on above: Order Comment: 302.1 Performed By: #### L 500.4050, L100.0500 #### [facility] [address] [place], [address] Creatinine [Mass/Vol] 0.79 mg/dL Normal 0.55-1.02 [facility] Comment on above: Order Comment: 302.1 Result Comment: The validity of the calculated GFR GFRAA in patients over 70 years has not been determined. Clinical correlation is essential. Performed By: #### L 500.4050, L100.0500 #### [facility] [address] [place], [address] EST GFR - AA 99 mL/min Normal >60 [facility] Comment on above: Order Comment: 302.1 Result Comment: Afri can Spanish GFR Calc Performed By: #### L 500.4050, L100.0500 #### [facility] [address] [place], [address] GAP 6 Normal 5-15 [facility] Comment on above: Order Comment: 302.1 Performed By: #### L 500.4050, L100.0500 #### [facility] [address] [place], [address] GFR/1.73 sq M.predicted among non-blacks MDRD (S/P/Bld) [Vol rate/Area] 82 mL/min/{1.73_m2} Normal >60 [facility] Comment on above: Order Comment: 302.1 Result Comment: Non- GFR Calc Performed By: #### L 500.4050, L100.0500 #### [facility] [address] [place], [address] Globulin (S) [Mass/Vol] 5.3 g/dL High 2.2-4.2 [facility] Comment on above: Order Comment: 302.1 Performed By: #### L 500.4050, L100.0500 #### [facility] [address] [place], [address] Glucose [Mass/Vol] 78 mg/dL Normal 74-106 [facility] Comment on above: Order Comment: 302.1 Performed By: #### L 500.4050, L100.0500 #### [facility] [address] [place], [address] Potassium [Moles/Vol] 4.0 mmol/L Normal 3.5-5.1 [facility] Comment on above: Order Comment: 302.1 Result Comment: Slig ht Hemolysis, Result may be falsely increased. Performed By: #### L 500.4050, L100.0500 #### [facility] [address] [place], [address] Sodium [Moles/Vol] 139 mmol/L Normal 136-145 [facility] Comment on above: Order Comment: 302.1 Performed By: #### L 500.4050, L100.0500 #### [facility] [address] [place], [address] T PROT 8.1 g/dL Normal 6.4-8.2 [facility] Comment on above: Order Comment: 302.1 Performed By: #### L 500.4050, L100.0500 #### [facility] [address] [place], [address] Urea nitrogen [Mass/Vol] 15 mg/dL Normal 7-18 [facility] Comment on above: Order Comment: 302.1 Performed By: #### L 500.4050, L100.0500 #### [facility] [address] [place], [address] Urine Cultureon 05-29-2024 URC #2 Sensitivity perfo rmed at [facility] Escherichia coli [place] Count >100,000 Pseudomonas stutzeri Pseudomonas stutzeri PMIR [place] Count 1000-10,000 Proteus mirabilis Ampicillin Islt DARIO >=32 Ampicillin+Sulbac Islt DARIO >=32 R ceFAZolin Islt DARIO <=4 Cefepime Islt DARIO <=0.12 S cefTRIAXone Islt DARIO <=0.25 S Ciprofloxacin Islt DARIO >=4 R B-Lactamase Extended Susc Islt NEG Gentamicin Islt DARIO <=1 S Imipenem Islt DARIO <=0.25 S levoFLOXacin Islt DARIO >=8 R Nitrofurantoin Islt DARIO 64 I Pip+Tazo Islt DARIO <=4 S Tobramycin Islt DARIO <=1 S TMP SMX Islt DARIO <=20 S Pseudomonas stutzeri: REACTION Amikacin Islt DARIO S Aztreonam Islt DARIO S Cefepime Islt DARIO Cefotaxime Islt DARIO S cefTAZidime Islt DARIO S cefTRIAXone Islt DARIO S Gentamicin Islt DARIO S Imipenem Islt DARIO S Pip+Tazo Islt DARIO I Tetracycline Islt DARIO S Ticarcillin+Clav Islt DARIO S Tobramycin Islt DARIO S TMP SMX Islt DARIO S Proteus mirabilis: REACTION Ampicillin Islt DARIO >=32 R Ampicillin+Sulbac Islt DARIO 8 S ceFAZolin Islt DARIO Cefepime Islt DARIO 16 R cefTRIAXone Islt DARIO <=0.25 S Ciprofloxacin Islt DARIO >=4 R Gentamicin Islt DARIO <=1 S levoFLOXacin Islt DARIO >=8 R Nitrofurantoin Islt DARIO 128 R Pip+Tazo Islt DARIO <=4 S Tobramycin Islt DARIO <=1 S TMP SMX Islt DARIO >=320 R Normal [facility] Comment on above: Performed By: #### L 500.4050, L100.0500 #### [facility] [address] [place], [address] Basic Metabolic Profile (BMP )on 05-24-2024 BUN/CRE 19.4 RATIO Normal - [facility] Comment on above: Order Comment: 302.1 Performed By: #### L 500.4050, L100.0500 #### [facility] [address] [place], [address] CA,Total 8.6 mg/dL Normal 8.5-10.1 [facility] Comment on above: Order Comment: 302.1 Performed By: #### L 500.4050, L100.0500 #### [facility] [address] [place], [address] Chloride [Moles/Vol] 112 mmol/L High 98-107 [facility] Comment on above: Order Comment: 302.1 Performed By: #### L 500.4050, L100.0500 #### [facility] [address] [place], [address] CO2 [Moles/Vol] 22.0 mmol/L Normal 21.0-32.0 [facility] Comment on above: Order Comment: 302.1 Performed By: #### L 500.4050, L100.0500 #### [facility] [address] [place], [address] Creatinine [Mass/Vol] 0.88 mg/dL Normal 0.55-1.02 [facility] Comment on above: Order Comment: 302.1 Result Comment: The validity of the calculated GFR GFRAA in patients over 70 years has not been determined. Clinical correlation is essential. Performed By: #### L 500.4050, L100.0500 #### [facility] [address] [place], [address] EST GFR - AA 88 mL/min Normal >60 [facility] Comment on above: Order Comment: 302.1 Result Comment: Afri can Spanish GFR Calc Performed By: #### L 500.4050, L100.0500 #### [facility] [address] [place], [address] GAP 5 Normal 5-15 [facility] Comment on above: Order Comment: 302.1 Performed By: #### L 500.4050, L100.0500 #### [facility] [address] [place], [address] GFR/1.73 sq M.predicted among non-blacks MDRD (S/P/Bld) [Vol rate/Area] 73 mL/min/{1.73_m2} Normal >60 [facility] Comment on above: Order Comment: 302.1 Result Comment: Non- GFR Calc Performed By: #### L 500.4050, L100.0500 #### [facility] [address] [place], [address] Glucose [Mass/Vol] 83 mg/dL Normal 74-106 [facility] Comment on above: Order Comment: 302.1 Performed By: #### L 500.4050, L100.0500 #### [facility] [address] [place], [address] Potassium [Moles/Vol] 3.9 mmol/L Normal 3.5-5.1 [facility] Comment on above: Order Comment: 302.1 Performed By: #### L 500.4050, L100.0500 #### [facility] [address] [place], [address] Sodium [Moles/Vol] 139 mmol/L Normal 136-145 [facility] Comment on above: Order Comment: 302.1 Performed By: #### L 500.4050, L100.0500 #### [facility] [address] [place], [address] Urea nitrogen [Mass/Vol] 17 mg/dL Normal 7-18 [facility] Comment on above: Order Comment: 302.1 Performed By: #### L 500.4050, L100.0500 #### [facility] [address] [place], [address] CBC-Complete Blood Cnt No Di ffon 05-24-2024 Erythrocyte distribution width (RBC) [Ratio] 15.5 % High 11.6-14.6 [facility] Comment on above: Order Comment: 302.1 Performed By: #### L 500.4050, L100.0500 #### [facility] [address] [place], [address] Hematocrit (Bld) [Volume fraction] 34.3 % Low 37-47 [facility] Comment on above: Order Comment: 302.1 Performed By: #### L 500.4050, L100.0500 #### [facility] [address] [place], [address] Hemoglobin (Bld) [Mass/Vol] 10.4 g/dL Low 12.0-15.0 [facility] Comment on above: Order Comment: 302.1 Performed By: #### L 500.4050, L100.0500 #### [facility] [address] [place], [address] MCH (RBC) [Entitic mass] 27.2 pg Normal 27.0-32.0 [facility] Comment on above: Order Comment: 302.1 Performed By: #### L 500.4050, L100.0500 #### [facility] [address] [place], [address] MCHC (RBC) [Mass/Vol] 30.3 g/dL Low 32-36 [facility] Comment on above: Order Comment: 302.1 Performed By: #### L 500.4050, L100.0500 #### [facility] [address] [place], [address] MCV (RBC) [Entitic vol] 89.6 fL Normal 81-99 [facility] Comment on above: Order Comment: 302.1 Performed By: #### L 500.4050, L100.0500 #### [facility] [address] [place], [address] Platelet mean volume (Bld) [Entitic vol] 11.3 fL Normal 6.2-12.0 [facility] Comment on above: Order Comment: 302.1 Performed By: #### L 500.4050, L100.0500 #### [facility] [address] [place], [address] Platelets (Bld) [#/Vol] 369 10*3/uL Normal 150-450 [facility] Comment on above: Order Comment: 302.1 Performed By: #### L 500.4050, L100.0500 #### [facility] [address] [place], [address] RBC (Bld) [#/Vol] 3.83 10*6/uL Low 4.2-5.[address] [facility] Comment on above: Order Comment: 302.1 Performed By: #### L 500.4050, L100.0500 #### [facility] [address] [place], [address] RDW SD 50.7 fl High 35.1-43.9 [facility] Comment on above: Order Comment: 302.1 Performed By: #### L 500.4050, L100.0500 #### [facility] [address] [place], [address] WBC (Bld) [#/Vol] 6.1 10*3/uL Normal 4.4-11.0 [facility] Comment on above: Order Comment: 302.1 Performed By: #### L 500.4050, L100.0500 #### [facility] [address] [place], [address] Folates, (Folic Acid)on 05-01 FOLATES 2.20 ng/mL Low 3.1-55.4 [facility] Comment on above: Order Comment: 302.1 Result Comment: Slig ht Hemolysis, Result may be falsely increased. Performed By: #### L 500.4050, L100.0500 #### [facility] [address] [place], [address] Iron+Iron Binding Capacityon 05-24-2023 Iron [Mass/Vol] 48 ug/dL Low 50-170 [facility] Comment on above: Order Comment: 302.1 Performed By: #### L 500.4050, L100.0500 #### [facility] [address] [place], [address] IRON SATURATION 16.2 Normal 15.0-55.0 [facility] Comment on above: Order Comment: 302.1 Performed By: #### L 500.4050, L100.0500 #### [facility] [address] [place], [address] TIBC 297 ug/dL Normal 250-450 [facility] Comment on above: Order Comment: 302.1 Performed By: #### L 500.4050, L100.0500 #### [facility] [address] [place], [address] Vitamin B12on 05-24-2024 Cobalamin (Vitamin B12) [Mass/Vol] 434 pg/mL Normal 211-911 [facility] Comment on above: Order Comment: 302.1 Performed By: #### L 500.4050, L100.0500 #### [facility] [address] [place], [address] Urinalysis, Completeon 05-17 BACTERIA 2+ /hpf Normal None Seen [facility] Comment on above: Order Comment: 302-1 Performed By: #### L 500.4050, L100.0500 #### [facility] [address] [place], [address] CA OX CRYSTAL 2+ /hpf Normal [facility] Comment on above: Order Comment: 302-1 Performed By: #### L 500.4050, L100.0500 #### [facility] [address] [place], [address] WBC 0-5 SEEN Normal 0-5 [facility] Comment on above: Order Comment: 302-1 Performed By: #### L 500.4050, L100.0500 #### [facility] [address] [place], [address] EPI,SQUAMOUS 0 SEEN Normal 5-10 [facility] Comment on above: Order Comment: 302-1 Performed By: #### L 500.4050, L100.0500 #### [facility] [address] [place], [address] Mucus Ql (Urine sed) 0 SEEN Normal [facility] Comment on above: Order Comment: 302-1 Performed By: #### L 500.4050, L100.0500 #### [facility] [address] [place], [address] RBC 0 SEEN Normal 0-5 [facility] Comment on above: Order Comment: 302-1 Performed By: #### L 500.4050, L100.0500 #### [facility] [address] [place], [address] Basic Metabolic Profile (BMP )on 04-26-2024 BUN/CRE 24.6 RATIO High 10-20 [facility] Comment on above: Order Comment: 302.1 Performed By: #### L 500.4050, L100.0500 #### [facility] [address] [place], [address] CA,Total 8.6 mg/dL Normal 8.5-10.1 [facility] Comment on above: Order Comment: 302.1 Performed By: #### L 500.4050, L100.0500 #### [facility] [address] [place], [address] Chloride [Moles/Vol] 108 mmol/L High 98-107 [facility] Comment on above: Order Comment: 302.1 Performed By: #### L 500.4050, L100.0500 #### [facility] [address] [place], [address] CO2 [Moles/Vol] 27.0 mmol/L Normal 21.0-32.0 [facility] Comment on above: Order Comment: 302.1 Performed By: #### L 500.4050, L100.0500 #### [facility] [address] [place], [address] Creatinine [Mass/Vol] 0.77 mg/dL Normal 0.55-1.02 [facility] Comment on above: Order Comment: 302.1 Result Comment: The validity of the calculated GFR GFRAA in patients over 70 years has not been determined. Clinical correlation is essential. Performed By: #### L 500.4050, L100.0500 #### [facility] [address] [place], [address] EST GFR - AA 103 mL/min Normal >60 [facility] Comment on above: Order Comment: 302.1 Result Comment: Afri can Spanish GFR Calc Performed By: #### L 500.4050, L100.0500 #### [facility] [address] [place], [address] GAP 3 Low 5-15 [facility] Comment on above: Order Comment: 302.1 Performed By: #### L 500.4050, L100.0500 #### [facility] [address] [place], [address] GFR/1.73 sq M.predicted among non-blacks MDRD (S/P/Bld) [Vol rate/Area] 85 mL/min/{1.73_m2} Normal >60 [facility] Comment on above: Order Comment: 302.1 Result Comment: Non- GFR Calc Performed By: #### L 500.4050, L100.0500 #### [facility] [address] [place], [address] Glucose [Mass/Vol] 105 mg/dL Normal 74-106 [facility] Comment on above: Order Comment: 302.1 Result Comment: Fast ing Glucose result from 100 to 125 mg/dL suggests IMPAIRED HOMEOSTASIS per A.D.A. criteria. Performed By: #### L 500.4050, L100.0500 #### [facility] [address] [place], [address] Potassium [Moles/Vol] 3.5 mmol/L Normal 3.5-5.1 [facility] Comment on above: Order Comment: 302.1 Performed By: #### L 500.4050, L100.0500 #### [facility] [address] [place], [address] Sodium [Moles/Vol] 138 mmol/L Normal 136-145 [facility] Comment on above: Order Comment: 302.1 Performed By: #### L 500.4050, L100.0500 #### [facility] [address] [place], [address] Urea nitrogen [Mass/Vol] 19 mg/dL High 7-18 [facility] Comment on above: Order Comment: 302.1 Performed By: #### L 500.4050, L100.0500 #### [facility] [address] [place], [address] CBC-Complete Blood Cnt No Di ffon 04-26-2024 Erythrocyte distribution width (RBC) [Ratio] 15.5 % High 11.6-14.6 [facility] Comment on above: Order Comment: 302-1 Performed By: #### L 500.2500, L100.0500 #### [facility] [address] [place], [address] Hematocrit (Bld) [Volume fraction] 34.6 % Low 37-47 [facility] Comment on above: Order Comment: 302-1 Performed By: #### L 500.2500, L100.0500 #### [facility] [address] [place], [address] Hemoglobin (Bld) [Mass/Vol] 10.4 g/dL Low 12.0-15.0 [facility] Comment on above: Order Comment: 302-1 Performed By: #### L 500.2500, L100.0500 #### [facility] [address] [place], [address] MCH (RBC) [Entitic mass] 26.9 pg Low 27.0-32.0 [facility] Comment on above: Order Comment: 302-1 Performed By: #### L 500.2500, L100.0500 #### [facility] [address] [place], [address] MCHC (RBC) [Mass/Vol] 30.1 g/dL Low 32-36 [facility] Comment on above: Order Comment: 302-1 Performed By: #### L 500.2500, L100.0500 #### [facility] [address] [place], [address] MCV (RBC) [Entitic vol] 89.4 fL Normal 81-99 [facility] Comment on above: Order Comment: 302-1 Performed By: #### L 500.2500, L100.0500 #### [facility] [address] [place], [address] Platelet mean volume (Bld) [Entitic vol] 11.6 fL Normal 6.2-12.0 [facility] Comment on above: Order Comment: 302-1 Performed By: #### L 500.2500, L100.0500 #### [facility] [address] [place], [address] Platelets (Bld) [#/Vol] 373 10*3/uL Normal 150-450 [facility] Comment on above: Order Comment: 302-1 Performed By: #### L 500.2500, L100.0500 #### [facility] [address] [place], [address] RBC (Bld) [#/Vol] 3.87 10*6/uL Low 4.2-5.[address] [facility] Comment on above: Order Comment: 302-1 Performed By: #### L 500.2500, L100.0500 #### [facility] [address] [place], [address] RDW SD 51.0 fl High 35.1-43.9 [facility] Comment on above: Order Comment: 302-1 Performed By: #### L 500.2500, L100.0500 #### [facility] [address] [place], [address] WBC (Bld) [#/Vol] 7.9 10*3/uL Normal 4.4-11.0 [facility] Comment on above: Order Comment: 302-1 Performed By: #### L 500.2500, L100.0500 #### [facility] [address] [place], [address] Basic Metabolic Profile (BMP )on 03-27-2024 BUN/CRE 27.7 RATIO High 10-20 [facility] Comment on above: Order Comment: 302-1 Performed By: #### L 500.4050, L100.0500 #### [facility] [address] [place], [address] CA,Total 8.9 mg/dL Normal 8.5-10.1 [facility] Comment on above: Order Comment: 302-1 Performed By: #### L 500.4050, L100.0500 #### [facility] [address] [place], [address] Chloride [Moles/Vol] 110 mmol/L High 98-107 [facility] Comment on above: Order Comment: 302-1 Performed By: #### L 500.4050, L100.0500 #### [facility] [address] [place], [address] CO2 [Moles/Vol] 25.0 mmol/L Normal 21.0-32.0 [facility] Comment on above: Order Comment: 302-1 Performed By: #### L 500.4050, L100.0500 #### [facility] [address] [place], [address] Creatinine [Mass/Vol] 0.79 mg/dL Normal 0.55-1.02 [facility] Comment on above: Order Comment: 302-1 Result Comment: The validity of the calculated GFR GFRAA in patients over 70 years has not been determined. Clinical correlation is essential. Performed By: #### L 500.4050, L100.0500 #### [facility] [address] [place], [address] EST GFR - AA 99 mL/min Normal >60 [facility] Comment on above: Order Comment: 302-1 Result Comment: Afri can Spanish GFR Calc Performed By: #### L 500.4050, L100.0500 #### [facility] [address] [place], [address] GAP 4 Low 5-15 [facility] Comment on above: Order Comment: 302-1 Performed By: #### L 500.4050, L100.0500 #### [facility] [address] [place], [address] GFR/1.73 sq M.predicted among non-blacks MDRD (S/P/Bld) [Vol rate/Area] 82 mL/min/{1.73_m2} Normal >60 [facility] Comment on above: Order Comment: 302- Result Comment: Non- GFR Calc Performed By: #### L 500.4050, L100.0500 #### [facility] [address] [place], [address] Glucose [Mass/Vol] 91 mg/dL Normal 74-106 [facility] Comment on above: Order Comment: 302-1 Performed By: #### L 500.4050, L100.0500 #### [facility] [address] [place], [address] Potassium [Moles/Vol] 3.5 mmol/L Normal 3.5-5.1 [facility] Comment on above: Order Comment: 302-1 Performed By: #### L 500.4050, L100.0500 #### [facility] [address] [place], [address] Sodium [Moles/Vol] 139 mmol/L Normal 136-145 [facility] Comment on above: Order Comment: 302-1 Performed By: #### L 500.4050, L100.0500 #### [facility] [address] [place], [address] Urea nitrogen [Mass/Vol] 22 mg/dL High 7-18 [facility] Comment on above: Order Comment: 302-1 Performed By: #### L 500.4050, L100.0500 #### [facility] [address] [place], [address] CBC-Complete Blood Cnt No Di ffon 03-27-2024 Erythrocyte distribution width (RBC) [Ratio] 15.5 % High 11.6-14.6 [facility] Comment on above: Order Comment: 302-1 Performed By: #### L 500.4050, L100.0500 #### [facility] [address] [place], [address] Hematocrit (Bld) [Volume fraction] 36.7 % Low 37-47 [facility] Comment on above: Order Comment: 302-1 Performed By: #### L 500.4050, L100.0500 #### [facility] [address] [place], [address] Hemoglobin (Bld) [Mass/Vol] 11.2 g/dL Low 12.0-15.0 [facility] Comment on above: Order Comment: 302-1 Performed By: #### L 500.4050, L100.0500 #### [facility] [address] [place], [address] MCH (RBC) [Entitic mass] 27.0 pg Normal 27.0-32.0 [facility] Comment on above: Order Comment: 302-1 Performed By: #### L 500.4050, L100.0500 #### [facility] [address] [place], [address] MCHC (RBC) [Mass/Vol] 30.5 g/dL Low 32-36 [facility] Comment on above: Order Comment: 302-1 Performed By: #### L 500.4050, L100.0500 #### [facility] [address] [place], [address] MCV (RBC) [Entitic vol] 88.4 fL Normal 81-99 [facility] Comment on above: Order Comment: 302-1 Performed By: #### L 500.4050, L100.0500 #### [facility] [address] [place], [address] Platelet mean volume (Bld) [Entitic vol] 11.2 fL Normal 6.2-12.0 [facility] Comment on above: Order Comment: 302-1 Performed By: #### L 500.4050, L100.0500 #### [facility] [address] [place], [address] Platelets (Bld) [#/Vol] 370 10*3/uL Normal 150-450 [facility] Comment on above: Order Comment: 302-1 Performed By: #### L 500.4050, L100.0500 #### [facility] [address] [place], [address] RBC (Bld) [#/Vol] 4.15 10*6/uL Low 4.2-5.[address] [facility] Comment on above: Order Comment: 302-1 Performed By: #### L 500.4050, L100.0500 #### [facility] [address] [place], [address] RDW SD 50.2 fl High 35.1-43.9 [facility] Comment on above: Order Comment: 302-1 Performed By: #### L 500.4050, L100.0500 #### [facility] [address] [place], [address] WBC (Bld) [#/Vol] 8.8 10*3/uL Normal 4.4-11.0 [facility] Comment on above: Order Comment: 302-1 Performed By: #### L 500.4050, L100.0500 #### [facility] [address] [place], [address] Basic Metabolic Profile (BMP )on 03-26-2024 BUN Normal 7-18 [facility] Comment on above: Order Comment: Result Comment: UTO X1 TOLD NURSE Performed By: #### L 500.4050, L100.0500 #### [facility] [address] [place], [address] BUN/CRE Normal 10-20 [facility] Comment on above: Order Comment: Result Comment: UTO X1 TOLD NURSE Performed By: #### L 500.4050, L100.0500 #### [facility] [address] [place], [address] CA,Total Normal 8.5-10.1 [facility] Comment on above: Order Comment: Result Comment: UTO X1 TOLD NURSE Performed By: #### L 500.4050, L100.0500 #### [facility] [address] [place], [address] CL Normal 98-107 [facility] Comment on above: Order Comment: Result Comment: UTO X1 TOLD NURSE Performed By: #### L 500.4050, L100.0500 #### [facility] [address] [place], [address] CO2 Normal 21.0-32.0 [facility] Comment on above: Order Comment: Result Comment: UTO X1 TOLD NURSE Performed By: #### L 500.4050, L100.0500 #### [facility] [address] [place], [address] CREAT,SERUM Normal 0.55-1.02 [facility] Comment on above: Order Comment: Result Comment: UTO X1 TOLD NURSE Performed By: #### L 500.4050, L100.0500 #### [facility] [address] [place], [address] EST GFR Normal >60 [facility] Comment on above: Order Comment: Result Comment: UTO X1 TOLD NURSE Performed By: #### L 500.4050, L100.0500 #### [facility] [address] [place], [address] EST GFR - AA Normal >60 [facility] Comment on above: Order Comment: Result Comment: UTO X1 TOLD NURSE Performed By: #### L 500.4050, L100.0500 #### [facility] [address] [place], [address] GAP Normal 5-15 [facility] Comment on above: Order Comment: Result Comment: UTO X1 TOLD NURSE Performed By: #### L 500.4050, L100.0500 #### [facility] [address] [place], [address] GLU Normal 74-106 [facility] Comment on above: Order Comment: Result Comment: UTO X1 TOLD NURSE Performed By: #### L 500.4050, L100.0500 #### [facility] [address] [place], [address] Potassium Normal 3.5-5.1 [facility] Comment on above: Order Comment: Result Comment: UTO X1 TOLD NURSE Performed By: #### L 500.4050, L100.0500 #### [facility] [address] [place], [address] Basic Metabolic Profile (BMP) Normal 136-145 [facility] Comment on above: Order Comment: Result Comment: UTO X1 TOLD NURSE Performed By: #### L 500.4050, L100.0500 #### [facility] [address] [place], [address] CBC-Complete Blood Cnt No Di ffon 03-26-2024 HCT Normal 37-47 [facility] Comment on above: Order Comment: Result Comment: UTO X1 TOLD NURSE Performed By: #### L 500.4050, L100.0500 #### [facility] [address] [place], [address] HGB Normal 12.0-15.0 [facility] Comment on above: Order Comment: Result Comment: UTO X1 TOLD NURSE Performed By: #### L 500.4050, L100.0500 #### [facility] [address] [place], [address] MCH Normal 27.0-32.0 [facility] Comment on above: Order Comment: Result Comment: UTO X1 TOLD NURSE Performed By: #### L 500.4050, L100.0500 #### [facility] [address] [place], [address] MCHC Normal 32-36 [facility] Comment on above: Order Comment: Result Comment: UTO X1 TOLD NURSE Performed By: #### L 500.4050, L100.0500 #### [facility] [address] [place], [address] MCV Normal 81-99 [facility] Comment on above: Order Comment: Result Comment: UTO X1 TOLD NURSE Performed By: #### L 500.4050, L100.0500 #### [facility] [address] [place], [address] PLT Normal 150-450 [facility] Comment on above: Order Comment: Result Comment: UTO X1 TOLD NURSE Performed By: #### L 500.4050, L100.0500 #### [facility] [address] [place], [address] RBC Normal 4.2-5.4 [facility] Comment on above: Order Comment: Result Comment: UTO X1 TOLD NURSE Performed By: #### L 500.4050, L100.0500 #### [facility] [address] [place], [address] RDW CV Normal 11.6-14.6 [facility] Comment on above: Order Comment: 302- Result Comment: UTO X1 TOLD NURSE Performed By: #### L 500.4050, L100.0500 #### [facility] [address] [place], [address] RDW SD Normal 35.1-43.9 [facility] Comment on above: Order Comment: 302- Result Comment: UTO X1 TOLD NURSE Performed By: #### L 500.4050, L100.0500 #### [facility] [address] [place], [address] WBC Normal 4.4-11.0 [facility] Comment on above: Order Comment: 302- Result Comment: UTO X1 TOLD NURSE Performed By: #### L 500.4050, L100.0500 #### [facility] [address] [place], [address] Basic Metabolic Profile (BMP )on 03-25-2024 BUN Normal 7-18 [facility] Comment on above: Order Comment: 302.1 Result Comment: UTO X1-TOLD NURSE Performed By: #### L 500.2500, L100.0500 #### [facility] [address] [place], [address] BUN/CRE Normal 10-20 [facility] Comment on above: Order Comment: 302.1 Result Comment: UTO X1-TOLD NURSE Performed By: #### L 500.2500, L100.0500 #### [facility] [address] [place], [address] CA,Total Normal 8.5-10.1 [facility] Comment on above: Order Comment: 302.1 Result Comment: UTO X1-TOLD NURSE Performed By: #### L 500.2500, L100.0500 #### [facility] [address] [place], [address] CL Normal 98-107 [facility] Comment on above: Order Comment: 302.1 Result Comment: UTO X1-TOLD NURSE Performed By: #### L 500.2500, L100.0500 #### [facility] [address] [place], [address] CO2 Normal 21.0-32.0 [facility] Comment on above: Order Comment: 302.1 Result Comment: UTO X1-TOLD NURSE Performed By: #### L 500.2500, L100.0500 #### [facility] [address] [place], [address] CREAT,SERUM Normal 0.55-1.02 [facility] Comment on above: Order Comment: 302.1 Result Comment: UTO X1-TOLD NURSE Performed By: #### L 500.2500, L100.0500 #### [facility] [address] [place], [address] EST GFR Normal >60 [facility] Comment on above: Order Comment: 302.1 Result Comment: UTO X1-TOLD NURSE Performed By: #### L 500.2500, L100.0500 #### [facility] [address] [place], [address] EST GFR - AA Normal >60 [facility] Comment on above: Order Comment: 302.1 Result Comment: UTO X1-TOLD NURSE Performed By: #### L 500.2500, L100.0500 #### [facility] [address] [place], [address] GAP Normal 5-15 [facility] Comment on above: Order Comment: 302.1 Result Comment: UTO X1-TOLD NURSE Performed By: #### L 500.2500, L100.0500 #### [facility] [address] [place], [address] GLU Normal 74-106 [facility] Comment on above: Order Comment: 302.1 Result Comment: UTO X1-TOLD NURSE Performed By: #### L 500.2500, L100.0500 #### [facility] [address] [place], [address] Potassium Normal 3.5-5.1 [facility] Comment on above: Order Comment: 302.1 Result Comment: UTO X1-TOLD NURSE Performed By: #### L 500.2500, L100.0500 #### [facility] [address] [place], [address] Basic Metabolic Profile (BMP) Normal 136-145 [facility] Comment on above: Order Comment: 302.1 Result Comment: UTO X1-TOLD NURSE Performed By: #### L 500.2500, L100.0500 #### [facility] [address] [place], [address] CBC-Complete Blood Cnt No Di ffon 03-25-2024 HCT Normal 37-47 [facility] Comment on above: Order Comment: 302.1 Result Comment: UTO X1-TOLD NURSE Performed By: #### L 500.2500, L100.0500 #### [facility] [address] [place], [address] HGB Normal 12.0-15.0 [facility] Comment on above: Order Comment: 302.1 Result Comment: UTO X1-TOLD NURSE Performed By: #### L 500.2500, L100.0500 #### [facility] [address] [place], [address] MCH Normal 27.0-32.0 [facility] Comment on above: Order Comment: 302.1 Result Comment: UTO X1-TOLD NURSE Performed By: #### L 500.2500, L100.0500 #### [facility] [address] [place], [address] MCHC Normal 32-36 [facility] Comment on above: Order Comment: 302.1 Result Comment: UTO X1-TOLD NURSE Performed By: #### L 500.2500, L100.0500 #### [facility] [address] [place], [address] MCV Normal 81-99 [facility] Comment on above: Order Comment: 302.1 Result Comment: UTO X1-TOLD NURSE Performed By: #### L 500.2500, L100.0500 #### [facility] [address] [place], [address] PLT Normal 150-450 [facility] Comment on above: Order Comment: 302.1 Result Comment: UTO X1-TOLD NURSE Performed By: #### L 500.2500, L100.0500 #### [facility] [address] [place], [address] RBC Normal 4.2-5.4 [facility] Comment on above: Order Comment: 302.1 Result Comment: UTO X1-TOLD NURSE Performed By: #### L 500.2500, L100.0500 #### [facility] [address] [place], [address] RDW CV Normal 11.6-14.6 [facility] Comment on above: Order Comment: 302.1 Result Comment: UTO X1-TOLD NURSE Performed By: #### L 500.2500, L100.0500 #### [facility] [address] [place], [address] RDW SD Normal 35.1-43.9 [facility] Comment on above: Order Comment: 302.1 Result Comment: UTO X1-TOLD NURSE Performed By: #### L 500.2500, L100.0500 #### [facility] [address] [place], [address] WBC Normal 4.4-11.0 [facility] Comment on above: Order Comment: 302.1 Result Comment: UTO X1-TOLD NURSE Performed By: #### L 500.2500, L100.0500 #### [facility] [address] [place], [address] Thyroid Stim Hormone (TSH)on 03-11-2024 TSH 1.37 uIU/mL Normal 0.358-3.74 [facility] Comment on above: Order Comment: 302-1 Performed By: #### L 501.9520 #### [facility] [address] [place], [address] Basic Metabolic Profile (BMP )on 02-20-2024 BUN/CRE 23.8 RATIO High 10-20 [facility] Comment on above: Order Comment: 302-1 Performed By: #### L 500.4050, L100.0500 #### [facility] [address] [place], [address] CA,Total 9.0 mg/dL Normal 8.5-10.1 [facility] Comment on above: Order Comment: 302-1 Performed By: #### L 500.4050, L100.0500 #### [facility] [address] [place], [address] Chloride [Moles/Vol] 112 mmol/L High 98-107 [facility] Comment on above: Order Comment: 302-1 Performed By: #### L 500.4050, L100.0500 #### [facility] [address] [place], [address] CO2 [Moles/Vol] 24.0 mmol/L Normal 21.0-32.0 [facility] Comment on above: Order Comment: 302-1 Performed By: #### L 500.4050, L100.0500 #### [facility] Laboratory [address] [place], [address] Creatinine [Mass/Vol] 0.71 mg/dL Normal 0.55-1.02 [facility] Comment on above: Order Comment: 302-1 Result Comment: The validity of the calculated GFR GFRAA in patients over 70 years has not been determined. Clinical correlation is essential. Performed By: #### L 500.4050, [id number] #### [facility] [address] [place], [address] EST GFR - AA 112 mL/min Normal >60 [facility] Comment on above: Order Comment: 302- Result Comment: Afri can Spanish GFR Calc Performed By: #### L 500.4050, [id number] #### [facility] [address] [place], [address] GAP 5 Normal 5-15 [facility] Comment on above: Order Comment: 302- Performed By: #### L [id number], [id number] #### [facility] [address] [place], [address] GFR/1.73 sq M.predicted among non-blacks MDRD (S/P/Bld) [Vol rate/Area] 93 mL/min/{1.73_m2} Normal >60 [facility] Comment on above: Order Comment: 302- Result Comment: Non- GFR Calc Performed By: #### L 500.4050, [id number] #### [facility] [address] [place], [address] Glucose [Mass/Vol] 86 mg/dL Normal 74-106 [facility] Comment on above: Order Comment: 302-1 Performed By: #### L [id number], [id number] #### [facility] [address] [place], [address] Potassium [Moles/Vol] 3.7 mmol/L Normal 3.5-5.1 [facility] Comment on above: Order Comment: 302-1 Performed By: #### L [id number], [id number] #### [facility] [address] [place], [address] Sodium [Moles/Vol] 141 mmol/L Normal 136-145 [facility] Comment on above: Order Comment: 302-1 Performed By: #### L [id number], [id number] #### [facility] [address] [place], [address] Urea nitrogen [Mass/Vol] 17 mg/dL Normal 7-18 [facility] Comment on above: Order Comment: 302-1 Performed By: #### L [id number], [id number] #### [facility] [address] [place], [address] CBC-Complete Blood Cnt No ffon 02-20-2024 Erythrocyte distribution width (RBC) [Ratio] 15.0 % High 11.6-14.6 [facility] Comment on above: Order Comment: 302-1 Performed By: #### L 500.4050, [id number] #### [facility] [address] [place], [address] Hematocrit (Bld) [Volume fraction] 46.1 % Normal 37-47 [facility] Comment on above: Order Comment: 302-1 Performed By: #### L [id number], [id number] #### [facility] [address] [place], [address] Hemoglobin (Bld) [Mass/Vol] 13.9 g/dL Normal 12.0-15.0 [facility] Comment on above: Order Comment: 302-1 Performed By: #### L [id number], [id number] #### [facility] [address] [place], [address] MCH (RBC) [Entitic mass] 27.0 pg Normal 27.0-32.0 [facility] Comment on above: Order Comment: 302-1 Performed By: #### L [id number], [id number] #### [facility] [address] [place], [address] MCHC (RBC) [Mass/Vol] 30.2 g/dL Low 32-36 [facility] Comment on above: Order Comment: 302-1 Performed By: #### L [id number], [id number] #### [facility] [address] [place], [address] MCV (RBC) [Entitic vol] 89.5 fL Normal 81-99 [facility] Comment on above: Order Comment: 302-1 Performed By: #### L [id number], [id number] #### [facility] [address] [place], [address] Platelet mean volume (Bld) [Entitic vol] 11.4 fL Normal 6.2-12.0 [facility] Comment on above: Order Comment: 302-1 Performed By: #### L 500.4050, L100.0500 #### [facility] [address] [place], [address] Platelets (Bld) [#/Vol] 412 10*3/uL Normal 150-450 [facility] Comment on above: Order Comment: 302-1 Performed By: #### L [id number], [id number] #### [facility] [address] [place], [address] RBC (Bld) [#/Vol] 5.15 10*6/uL Normal 4.2-5.[address] [facility] Comment on above: Order Comment: 302-1 Performed By: #### L 500.4050, L100.0500 #### [facility] [address] [place], [address] RDW SD 49.2 fl High 35.1-43.9 [facility] Comment on above: Order Comment: 302-1 Performed By: #### L [id number], L100.0500 #### [facility] [address] [place], [address] WBC (Bld) [#/Vol] 10.4 10*3/uL Normal 4.4-11.[address] [facility] Comment on above: Order Comment: 302-1 Performed By: #### L 500.4050, L100.0500 #### [facility] [address] [place], [place], [address] Basophil percentageOrdered B y: Venkat Malin on 10-29-2023 Basophil percentage 10-25 SEEN /hpf 0-5 [facility] Bilirubin Test strip Ql (U)O rdered By: Venkat Malin on 10-29-2023 Bilirubin Ql (U) Negative Negative [facility] Culture, urineOrdered By: Dov Gonzalez on 10-29-2023 Bacteria identified Cx Nom (U) Escherichia coli [facility] Ketones Test strip Ql (U)Ord ered By: Venkat Malin on 10-29-2023 Ketones Ql (U) 5 mg/dl Negative [facility] Mucus LM Ql (Urine sed)Order ed By: Venkat Malin on 10-29-2023 Mucus Ql (Urine sed) 0 SEEN /hpf [facility] Nitrite Test strip Ql (U)Ord ered By: Venkat Malin on 10-29-2023 Nitrite Ql (U) Positive Negative [facility] No Panel InformationOrdered By: Venkat Malin on 10-29-2023 Urine RBC 25-50 SEEN /hpf 0-5 [facility] Protein Test strip Ql (U)Ord ered By: Venkat Malin on 10-29-2023 Protein Ql (U) 30 mg/dl Negative [facility] Squamous epithelial cells de tection in urine sediment by light microscopyOrdered By: Venkat Malin on 10-29-2023 Epithelial cells.squamous LM Ql (Urine sed) 0-5 SEEN /hpf 5-10 [facility] Urine blood detectionOrdered By: Venkat Malin on 10-29-2023 RBC Ql (U) 250 /ul Negative [facility] Urine clarityOrdered By: Sarah Malin on 10-29-2023 Clarity (U) Sl. Cloudy Clear [facility] Urine color determinationOrd ered By: Venkat Malin on 10-29-2023 Color (U) Yellow Yellow [facility] Urine glucose detectionOrder ed By: Venkat Malin on 10-29-2023 Glucose Ql (U) Normal mg/dl Normal [facility] Urine leukocyte esterase det ection by dipstickOrdered By: Venkat Malin on 10-29-2023 Leukocyte esterase Test strip Ql (U) 100 /ul Negative [facility] Urine pHOrdered By: Venkat glynn on 10-29-2023 pH (U) 6.0 [pH] 5.0 - 8.0 [facility] Urine sediment bacteria coun t by microscopy (number/high power field)Ordered By: Venkat Malin on 10-29-2023 Bacteria LM.HPF (Urine sed) [#/Area] 3 /[HPF] None Seen [facility] Urine specific gravity measu rementOrdered By: Venkat Malin on 10-29-2023 Specific gravity (U) [Rel density] 1.020 1.002-1.03 0 [facility] Urine urobilinogen measureme ntOrdered By: Venkat Malin on 10-29-2023 Urobilinogen Ql (U) 1 mg/dl Normal [facility] Basophil percentageOrdered B y: Venkat Malin on 10-18-2023 Chloride [Moles/Vol] 111 mmol/L 98-107 [facility] Glucose [Mass/Vol] 92 mg/dL 74-106 [facility] Hemoglobin (Bld) [Mass/Vol] 13.3 g/dL 12.0-15.0 [facility] Potassium [Moles/Vol] 3.6 mmol/L 3.5-5.1 [facility] Comment on above: Slight Hemolysis, Re sult may be falsely increased. Sodium [Moles/Vol] 139 mmol/L 136-145 [facility] WBC (Bld) [#/Vol] 8.0 10*3/uL 4.4-11.0 [facility] Determination of erythrocyte mean corpuscular volume (MCV)Ordered By: Venkat Malin on 10-18-2023 MCV (RBC) [Entitic vol] 87.1 fL 81-99 [facility] Erythrocyte distribution wid th ratioOrdered By: Venkat Malin on 10-18-2023 Erythrocyte distribution width (RBC) [Ratio] 14.9 % 11.6-14.6 [facility] Erythrocyte distribution wid th standard deviationOrdered By: Venkat Malin on 10-18-2023 Erythrocyte distribution width (RBC) [Entitic vol] 48.1 fL 35.1-43.9 [facility] Hematocrit Auto (Bld) [Volum e fraction]Ordered By: Venkat Malin on 10-18-2023 Hematocrit (Bld) [Volume fraction] 41.3 % 37-47 [facility] Laboratory - Chemistry and C hemistry - challengeOrdered By: Venkat Malin on 10-18-2023 CO2 [Moles/Vol] 23.0 mmol/L 21.0-32.0 [facility] Urea nitrogen/Creatinine [Mass ratio] 24.5 mg/mg 10-20 [facility] Laboratory - Hematology and Cell countsOrdered By: Venkat Malin on 10-18-2023 MCH (RBC) [Entitic mass] 28.1 pg 27.0-32.0 [facility] MCHC (RBC) [Mass/Vol] 32.2 g/dL 32-36 [facility] Platelet mean volume (Bld) [Entitic vol] 12.1 fL 6.2-12.0 [facility] Platelets (Bld) [#/Vol] 224 10*3/uL 150-450 [facility] No Panel InformationOrdered By: Venkat Malin on 10-18-2023 Estimated GFR (MDRD) Amer 124 mL/min >60 [facility] Comment on above: GFR Calc Estimated GFR (MDRD) Non-Af Amer 103 mL/min >60 [facility] Comment on above: Non- GFR Calc RBC Auto (Bld) [#/Vol]Ordere d By: Venkat Malin on 10-18-2023 RBC (Bld) [#/Vol] 4.74 10*6/uL 4.2-5.4 [facility] Serum or plasma calcium kavin urement (mass/volume)Ordered By: Venkat Malin on 10-18-2023 Calcium [Mass/Vol] 9.1 mg/dL 8.5-10.1 [facility] Serum or plasma creatinine m easurement (mass/volume)Ordered By: Venkat Malin on 10-18-2023 Creatinine [Mass/Vol] 0.65 mg/dL 0.55-1.02 [facility] Comment on above: The validity of the calculated GFR & GFRAA in patients over 70 years has not been determined. Clinical correlation is essential. Serum or plasma urea nitroge n measurement (mass/volume)Ordered By: Venkat Malin on 10-18-2023 Urea nitrogen [Mass/Vol] 16 mg/dL 7-18 [facility] Thin prep Papanicolaou smear with manual screeningOrdered By: Venkat Malin on 10-18-2023 Thin prep Papanicolaou smear with manual screening 5 5-15 [facility] Basophil percentageOrdered B y: Venkat Malin on 10-09-2023 Chloride [Moles/Vol] 108 mmol/L 98-107 [facility] Glucose [Mass/Vol] 77 mg/dL 74-106 [facility] Potassium [Moles/Vol] 3.7 mmol/L 3.5-5.1 [facility] Sodium [Moles/Vol] 139 mmol/L 136-145 [facility] Laboratory - Chemistry and C hemistry - challengeOrdered By: Venkat Malin on 10-09-2023 CO2 [Moles/Vol] 24.0 mmol/L 21.0-32.0 [facility] Urea nitrogen/Creatinine [Mass ratio] 25.7 mg/mg 10- [facility] No Panel InformationOrdered By: Venkat Malin on 10-09-2023 Estimated GFR (MDRD) Amer 108 mL/min >60 [facility] Comment on above: GFR Calc Estimated GFR (MDRD) Non-Af Amer 89 mL/min >60 [facility] Comment on above: Non- GFR Calc Serum or plasma calcium kavin urement (mass/volume)Ordered By: Venkat Malin on 10-09-2023 Calcium [Mass/Vol] 9.1 mg/dL 8.5-10.1 [facility] Serum or plasma creatinine m easurement (mass/volume)Ordered By: Venkat Malin on 10-09-2023 Creatinine [Mass/Vol] 0.74 mg/dL 0.55-1.02 [facility] Comment on above: The validity of the calculated GFR & GFRAA in patients over 70 years has not been determined. Clinical correlation is essential. Serum or plasma urea nitroge n measurement (mass/volume)Ordered By: Venkat Malin on 10-09-2023 Urea nitrogen [Mass/Vol] 19 mg/dL 7-18 [facility] Thin prep Papanicolaou smear with manual screeningOrdered By: Venkat Malin on 10-09-2023 Thin prep Papanicolaou smear with manual screening 7 5-15 [facility] Basophil percentageOrdered B y: Venkat Malin on 09-28-2023 Chloride [Moles/Vol] 110 mmol/L 98-107 [facility] Glucose [Mass/Vol] 90 mg/dL 74-106 [facility] Potassium [Moles/Vol] 3.6 mmol/L 3.5-5.1 [facility] Sodium [Moles/Vol] 140 mmol/L 136-145 [facility] Laboratory - Chemistry and C hemistry - challengeOrdered By: Venkat Malin on 09-28-2023 CO2 [Moles/Vol] 25.0 mmol/L 21.0-32.0 [facility] Urea nitrogen/Creatinine [Mass ratio] 21.7 mg/mg 10-20 [facility] No Panel InformationOrdered By: Venkat Malin on 09-28-2023 Estimated GFR (MDRD) Amer 95 mL/min >60 [facility] Comment on above: GFR Calc Estimated GFR (MDRD) Non-Af Amer 78 mL/min >60 [facility] Comment on above: Non- GFR Calc Serum or plasma calcium kavin urement (mass/volume)Ordered By: Venkat Malin on 09-28-2023 Calcium [Mass/Vol] 9.5 mg/dL 8.5-10.1 [facility] Serum or plasma creatinine m easurement (mass/volume)Ordered By: Venkat Malin on 09-28-2023 Creatinine [Mass/Vol] 0.83 mg/dL 0.55-1.02 [facility] Comment on above: The validity of the calculated GFR & GFRAA in patients over 70 years has not been determined. Clinical correlation is essential. Serum or plasma urea nitroge n measurement (mass/volume)Ordered By: Venkat Malin on 09-28-2023 Urea nitrogen [Mass/Vol] 18 mg/dL 7-18 [facility] Thin prep Papanicolaou smear with manual screeningOrdered By: Venkat Malin on 09-28-2023 Thin prep Papanicolaou smear with manual screening 5 5-15 [facility] Basophil percentageOrdered B y: Venkat Malin on 09-20-2023 Bilirubin [Mass/Vol] 0.40 mg/dL 0.20-1.00 [facility] Comment on above: For patients on eltr ombopag therapy, use of Dimension [place] TBIL is not recommended. Chloride [Moles/Vol] 111 mmol/L 98-107 [facility] Glucose [Mass/Vol] 105 mg/dL 74-106 [facility] Comment on above: Fasting Glucose resu lt from 100 to 125 mg/dL suggests IMPAIRED HOMEOSTASIS per A.D.A. criteria. Hemoglobin (Bld) [Mass/Vol] 14.0 g/dL 12.0-15.0 [facility] Potassium [Moles/Vol] 3.4 mmol/L 3.5-5.1 [facility] Comment on above: Slight Hemolysis, Re sult may be falsely increased. Protein [Mass/Vol] 7.7 g/dL 6.4-8.2 [facility] Sodium [Moles/Vol] 140 mmol/L 136-145 [facility] WBC (Bld) [#/Vol] 7.2 10*3/uL 4.4-11.0 [facility] Determination of erythrocyte mean corpuscular volume (MCV)Ordered By: Venkat Malin on 09-20-2023 MCV (RBC) [Entitic vol] 88.0 fL 81-99 [facility] Erythrocyte distribution wid th ratioOrdered By: Venkat Malin on 09-20-2023 Erythrocyte distribution width (RBC) [Ratio] 14.5 % 11.6-14.6 [facility] Erythrocyte distribution wid th standard deviationOrdered By: Venkat Malin on 09-20-2023 Erythrocyte distribution width (RBC) [Entitic vol] 46.5 fL 35.1-43.9 [facility] Hematocrit Auto (Bld) [Volum e fraction]Ordered By: Venkat Malin on 09-20-2023 Hematocrit (Bld) [Volume fraction] 44.2 % 37-47 [facility] Laboratory - Chemistry and C hemistry - challengeOrdered By: Venkat Malin on 09-20-2023 Albumin/Globulin [Mass ratio] 0.5 {ratio} 0.9-2.4 [facility] ALP [Catalytic activity/Vol] 117 U/L 45-117 [facility] ALT [Catalytic activity/Vol] 14 U/L 13-56 [facility] CO2 [Moles/Vol] 23.0 mmol/L 21.0-32.0 [facility] Globulin (S) [Mass/Vol] 5.1 g/dL 2.2-4.2 [facility] Urea nitrogen/Creatinine [Mass ratio] 17.5 mg/mg 10-20 [facility] Laboratory - Hematology and Cell countsOrdered By: Venkat Malin on 09-20-2023 MCH (RBC) [Entitic mass] 27.9 pg 27.0-32.0 [facility] MCHC (RBC) [Mass/Vol] 31.7 g/dL 32-36 [facility] Platelet mean volume (Bld) [Entitic vol] 11.6 fL 6.2-12.0 [facility] Platelets (Bld) [#/Vol] 276 10*3/uL 150-450 [facility] No Panel InformationOrdered By: Venkat Malin on 09-20-2023 Estimated GFR (MDRD) Amer 91 mL/min >60 [facility] Comment on above: GFR Calc Estimated GFR (MDRD) Non-Af Amer 75 mL/min >60 [facility] Comment on above: Non- GFR Calc RBC Auto (Bld) [#/Vol]Ordere d By: Venkat Malin on 09-20-2023 RBC (Bld) [#/Vol] 5.02 10*6/uL 4.2-5.4 [facility] Serum or plasma calcium kavin urement (mass/volume)Ordered By: Venkat Malin on 09-20-2023 Calcium [Mass/Vol] 9.3 mg/dL 8.5-10.1 [facility] Serum or plasma creatinine m easurement (mass/volume)Ordered By: Venkat Mlain on 09-20-2023 Creatinine [Mass/Vol] 0.86 mg/dL 0.55-1.02 [facility] Comment on above: The validity of the calculated GFR & GFRAA in patients over 70 years has not been determined. Clinical correlation is essential. Serum or plasma urea nitroge n measurement (mass/volume)Ordered By: Venkat Malin on 09-20-2023 Urea nitrogen [Mass/Vol] 15 mg/dL 7-18 [facility] Thin prep Papanicolaou smear with manual screeningOrdered By: Venkat Malin on 09-20-2023 Thin prep Papanicolaou smear with manual screening 2.6 g/dL 3.2-5.0 [facility] Thin prep Papanicolaou smear with manual screening 11 U/L 15-37 [facility] Comment on above: Slight Hemolysis, Re sult may be falsely increased. Thin prep Papanicolaou smear with manual screening 6 5-15 [facility] Basophil percentageOrdered B y: Venkat Malin on 09-19-2023 Bilirubin [Mass/Vol] 0.30 mg/dL 0.20-1.00 [facility] Comment on above: For patients on eltr ombopag therapy, use of Dimension [place] TBIL is not recommended. Chloride [Moles/Vol] 111 mmol/L 98-107 [facility] Glucose [Mass/Vol] 97 mg/dL 74-106 [facility] Hemoglobin (Bld) [Mass/Vol] 13.6 g/dL 12.0-15.0 [facility] Potassium [Moles/Vol] 3.9 mmol/L 3.5-5.1 [facility] Protein [Mass/Vol] 7.9 g/dL 6.4-8.2 [facility] Sodium [Moles/Vol] 139 mmol/L 136-145 [facility] WBC (Bld) [#/Vol] 7.7 10*3/uL 4.4-11.0 [facility] Determination of erythrocyte mean corpuscular volume (MCV)Ordered By: Venkat Malin on 09-19-2023 MCV (RBC) [Entitic vol] 90.0 fL 81-99 [facility] Erythrocyte distribution wid th ratioOrdered By: Venkat Malin on 09-19-2023 Erythrocyte distribution width (RBC) [Ratio] 14.5 % 11.6-14.6 [facility] Erythrocyte distribution wid th standard deviationOrdered By: Venkat Malin on 09-19-2023 Erythrocyte distribution width (RBC) [Entitic vol] 48.0 fL 35.1-43.9 [facility] Hematocrit Auto (Bld) [Volum e fraction]Ordered By: Venkat Malin on 09-19-2023 Hematocrit (Bld) [Volume fraction] 44.8 % 37-47 [facility] Laboratory - Chemistry and C hemistry - challengeOrdered By: Venkat Malin on 09-19-2023 Albumin/Globulin [Mass ratio] 0.5 {ratio} 0.9-2.4 [facility] ALP [Catalytic activity/Vol] 122 U/L 45-117 [facility] ALT [Catalytic activity/Vol] 12 U/L 13-56 [facility] CO2 [Moles/Vol] 23.0 mmol/L 21.0-32.0 [facility] Globulin (S) [Mass/Vol] 5.1 g/dL 2.2-4.2 [facility] Urea nitrogen/Creatinine [Mass ratio] 20.3 mg/mg 10-20 [facility] Laboratory - Hematology and Cell countsOrdered By: Venkat Malin on 09-19-2023 MCH (RBC) [Entitic mass] 27.3 pg 27.0-32.0 [facility] MCHC (RBC) [Mass/Vol] 30.4 g/dL 32-36 [facility] Platelet mean volume (Bld) [Entitic vol] 11.4 fL 6.2-12.0 [facility] Platelets (Bld) [#/Vol] 331 10*3/uL 150-450 [facility] No Panel InformationOrdered By: Venkat Malin on 09-19-2023 Estimated GFR (MDRD) Amer 100 mL/min >60 [facility] Comment on above: GFR Calc Estimated GFR (MDRD) Non-Af Amer 83 mL/min >60 [facility] Comment on above: Non- GFR Calc RBC Auto (Bld) [#/Vol]Ordere d By: Venkat Malin on 09-19-2023 RBC (Bld) [#/Vol] 4.98 10*6/uL 4.2-5.[address] [facility] Serum or plasma calcium kavin urement (mass/volume)Ordered By: Venkat Malin on 09-19-2023 Calcium [Mass/Vol] 9.3 mg/dL 8.5-10.1 [facility] Serum or plasma creatinine m easurement (mass/volume)Ordered By: Venkat Malin on 09-19-2023 Creatinine [Mass/Vol] 0.79 mg/dL 0.55-1.02 [facility] Comment on above: The validity of the calculated GFR & GFRAA in patients over 70 years has not been determined. Clinical correlation is essential. Serum or plasma oxcarbazepin e measurement (mass/volume)Ordered By: Venkat Malin on 09-19-2023 OXcarbazepine [Mass/Vol] 17 ug/mL 10- [facility] Comment on above: This test was develo ped and its performance characteristicsdetermined by [employer]. It has not been cleared orapproved by the Food and Drug Administration. Detection Limit = 1Performed at: [facility] [employer] [id number] Director: Martha Estrada MD, Phone: [phone] Serum or plasma urea nitroge n measurement (mass/volume)Ordered By: Venkat Malin on 09-19-2023 Urea nitrogen [Mass/Vol] 16 mg/dL 7-18 [facility] Thin prep Papanicolaou smear with manual screeningOrdered By: Venkat Malin on 09-19-2023 Thin prep Papanicolaou smear with manual screening 2.8 g/dL 3.2-5.0 [facility] Thin prep Papanicolaou smear with manual screening 12 U/L 15-37 [facility] Thin prep Papanicolaou smear with manual screening 5 5-15 [facility] Absolute lymphocyte countOrd ered By: Venkat Malin on 08-31-2023 Lymphocytes Auto (Unsp spec) [#/Vol] 2.12 10*3/uL 0.83-4.51 [facility] Automated lymphocyte count a s percentage of total leukocytesOrdered By: Venkat Malin on 08-31-2023 Lymphocytes/100 WBC Auto (Unsp spec) 39.0 % 19-41 [facility] Basophil percentageOrdered B y: Venkat Malin on 08-31-2023 Basophils/100 WBC (Bld) 0.9 % 0-1 [facility] Bilirubin [Mass/Vol] 0.30 mg/dL 0.20-1.00 [facility] Comment on above: For patients on eltr ombopag therapy, use of Dimension [place] TBIL is not recommended. Chloride [Moles/Vol] 108 mmol/L 98-107 [facility] Eosinophils/100 WBC (Bld) 2.6 % 0-5 [facility] Glucose [Mass/Vol] 84 mg/dL 74-106 [facility] Hemoglobin (Bld) [Mass/Vol] 13.3 g/dL 12.0-15.0 [facility] Monocytes/100 WBC (Bld) 8.7 % 0-10 [facility] Neutrophils (Bld) [#/Vol] 2.6 10*3/uL 2.0-7.7 [facility] Neutrophils/100 WBC (Bld) 48.4 % 47-70 [facility] Potassium [Moles/Vol] 3.4 mmol/L 3.5-5.1 [facility] Protein [Mass/Vol] 7.3 g/dL 6.4-8.2 [facility] Sodium [Moles/Vol] 135 mmol/L 136-145 [facility] WBC (Bld) [#/Vol] 5.4 10*3/uL 4.4-11.0 [facility] Determination of erythrocyte mean corpuscular volume (MCV)Ordered By: Venkat Malin on 08-31-2023 MCV (RBC) [Entitic vol] 90.7 fL 81-99 [facility] Erythrocyte distribution wid th ratioOrdered By: Venkat Malin on 08-31-2023 Erythrocyte distribution width (RBC) [Ratio] 14.4 % 11.6-14.6 [facility] Erythrocyte distribution wid th standard deviationOrdered By: Venkat Malin on 08-31-2023 Erythrocyte distribution width (RBC) [Entitic vol] 47.8 fL 35.1-43.9 [facility] Hematocrit Auto (Bld) [Volum e fraction]Ordered By: Venkat Malin on 08-31-2023 Hematocrit (Bld) [Volume fraction] 44.1 % 37-47 [facility] Immature granulocytes/100 WB C Auto (Bld)Ordered By: Venkat Malin on 08-31-2023 Immature granulocytes/100 WBC (Bld) 0.400 % 0.0-0.9 [facility] Comment on above: IG% - Immature Granu locytes (promyelocytes, myelocytes and metamyelocytes) > 1% indicates that a LEFT SHIFT is Present. Laboratory - Chemistry and C hemistry - challengeOrdered By: Venkat Malin on 08-31-2023 Albumin/Globulin [Mass ratio] 0.6 {ratio} 0.9-2.4 [facility] ALP [Catalytic activity/Vol] 103 U/L 45-117 [facility] ALT [Catalytic activity/Vol] 14 U/L 13-56 [facility] CO2 [Moles/Vol] 25.0 mmol/L 21.0-32.0 [facility] Globulin (S) [Mass/Vol] 4.6 g/dL 2.2-4.2 [facility] Urea nitrogen/Creatinine [Mass ratio] 21.6 mg/mg 10-20 [facility] Laboratory - Hematology and Cell countsOrdered By: Venkat Malin on 08-31-2023 MCH (RBC) [Entitic mass] 27.4 pg 27.0-32.0 [facility] MCHC (RBC) [Mass/Vol] 30.2 g/dL 32-36 [facility] Nucleated RBC/100 WBC (Bld) [Ratio] 0 % 0-5 [facility] Platelets (Bld) [#/Vol] 297 10*3/uL 150-450 [facility] No Panel InformationOrdered By: Venkat Malin on 08-31-2023 Carbamazepine (Tegretol) Level 0.7 ug/mL 4.0-12.0 [facility] Estimated GFR (MDRD) Amer 116 mL/min >60 [facility] Comment on above: GFR Calc Estimated GFR (MDRD) Non-Af Amer 96 mL/min >60 [facility] Comment on above: Non- GFR Calc Platelet mean volume [place] [facility] (Bld) [Entitic vol]Ordered By: Venkat Malin on 08-31-2023 Platelet mean volume (Bld) [Entitic vol] 11.7 fL 6.2-12.0 [facility] RBC Auto (Bld) [#/Vol]Ordere d By: Venkat Malin on 08-31-2023 RBC (Bld) [#/Vol] 4.86 10*6/uL 4.2-5.[address] [facility] Serum or plasma calcium kavin urement (mass/volume)Ordered By: Venkat Malin on 08-31-2023 Calcium [Mass/Vol] 8.7 mg/dL 8.5-10.1 [facility] Serum or plasma creatinine m easurement (mass/volume)Ordered By: Venkat Malin on 08-31-2023 Creatinine [Mass/Vol] 0.69 mg/dL 0.55-1.02 [facility] Comment on above: The validity of the calculated GFR & GFRAA in patients over 70 years has not been determined. Clinical correlation is essential. Serum or plasma urea nitroge n measurement (mass/volume)Ordered By: Venkat Malin on 08-31-2023 Urea nitrogen [Mass/Vol] 15 mg/dL 7-18 [facility] Thin prep Papanicolaou smear with manual screeningOrdered By: Venkat Malin on 08-31-2023 Thin prep Papanicolaou smear with manual screening 2.7 g/dL 3.2-5.0 [facility] Thin prep Papanicolaou smear with manual screening 10 U/L 15-37 [facility] Thin prep Papanicolaou smear with manual screening 2 5-15 [facility] Basophil percentageOrdered B y: Venkat Malin on 07-19-2023 Bilirubin [Mass/Vol] 0.30 mg/dL 0.20-1.00 [facility] Comment on above: For patients on eltr ombopag therapy, use of Dimension [place] TBIL is not recommended. Chloride [Moles/Vol] 110 mmol/L 98-107 [facility] Glucose [Mass/Vol] 85 mg/dL 74-106 [facility] Potassium [Moles/Vol] 3.7 mmol/L 3.5-5.1 [facility] Protein [Mass/Vol] 8.0 g/dL 6.4-8.2 [facility] Sodium [Moles/Vol] 140 mmol/L 136-145 [facility] WBC (Bld) [#/Vol] 5.4 10*3/uL 4.4-11.0 [facility] Blood erythrocytes count (nu mber/volume)Ordered By: Venkat Malin on 07-19-2023 RBC (Bld) [#/Vol] 5.15 10*6/uL 4.2-5.[address] [facility] Blood hemoglobin measurement (mass/volume)Ordered By: Venkat Malin on 07-19-2023 Hemoglobin (Bld) [Mass/Vol] 14.5 g/dL 12.0-15.0 [facility] Blood platelet mean volumeOr dered By: Venkat Malin on 07-19-2023 Platelet mean volume (Bld) [Entitic vol] 11.1 fL 6.2-12.0 [facility] Determination of erythrocyte mean corpuscular volume (MCV)Ordered By: Venkat Malin on 07-19-2023 MCV (RBC) [Entitic vol] 90.3 fL 81-99 [facility] Hematocrit Auto (Bld) [Volum e fraction]Ordered By: Venkat Malin on 07-19-2023 Hematocrit (Bld) [Volume fraction] 46.5 % 37-47 [facility] Laboratory - Chemistry and C hemistry - challengeOrdered By: Venkat Malin on 07-19-2023 ALP [Catalytic activity/Vol] 170 U/L 45-117 [facility] ALT [Catalytic activity/Vol] 33 U/L 13-56 [facility] CO2 [Moles/Vol] 27.0 mmol/L 21.0-32.0 [facility] Globulin (S) [Mass/Vol] 4.8 g/dL 2.2-4.2 [facility] Urea nitrogen/Creatinine [Mass ratio] 19.5 mg/mg 10-20 [facility] Laboratory - Hematology and Cell countsOrdered By: Venkat Malin on 07-19-2023 Erythrocyte distribution width (RBC) [Entitic vol] 50.0 fL 35.1-43.9 [facility] Erythrocyte distribution width (RBC) [Ratio] 14.9 % 11.6-14.6 [facility] MCH (RBC) [Entitic mass] 28.2 pg 27.0-32.0 [facility] MCHC Auto (RBC) [Mass/Vol]Or dered By: Venkat Malin on 07-19-2023 MCHC (RBC) [Mass/Vol] 31.2 g/dL 32-36 [facility] No Panel InformationOrdered By: Venkat Malin on 07-19-2023 Estimated GFR (MDRD) Amer 89 mL/min >60 [facility] Comment on above: GFR Calc Estimated GFR (MDRD) Non-Af Amer 74 mL/min >60 [facility] Comment on above: Non- GFR Calc Platelets bldOrdered By: Sarah Malin on 07-19-2023 Platelets (Bld) [#/Vol] 341 10*3/uL 150-450 [facility] Serum or plasma albumin kavin urement (mass/volume)Ordered By: Venkat Malin on 07-19-2023 Albumin [Mass/Vol] 3.2 g/dL 3.2-5.0 [facility] Serum or plasma albumin/glob ulin mass ratioOrdered By: Venkat Malin on 07-19-2023 Albumin/Globulin [Mass ratio] 0.7 {ratio} 0.9-2.4 [facility] Serum or plasma calcium kavin urement (mass/volume)Ordered By: Venkat Mailn on 07-19-2023 Calcium [Mass/Vol] 9.1 mg/dL 8.5-10.1 [facility] Serum or plasma creatinine m easurement (mass/volume)Ordered By: Venkat Malin on 07-19-2023 Creatinine [Mass/Vol] 0.87 mg/dL 0.55-1.02 [facility] Comment on above: The validity of the calculated GFR & GFRAA in patients over 70 years has not been determined. Clinical correlation is essential. Serum or plasma urea nitroge n measurement (mass/volume)Ordered By: Venkat Malin on 07-19-2023 Urea nitrogen [Mass/Vol] 17 mg/dL 7-18 [facility] Thin prep Papanicolaou smear with manual screeningOrdered By: Venkat Malin on 07-19-2023 Thin prep Papanicolaou smear with manual screening 15 U/L 15-37 [facility] Thin prep Papanicolaou smear with manual screening 3 5-[address] [facility] [address] Abdomen WO contraston 1. Left UPJ calculus and multiple left renal calculi. Moderate left hydronephrosis. 2. Moderate to large amount of stool in the colon. Consider constipation. 3. Left pleural effusion. Report Dictated on Electronically Signed By: Dakotah Alan MD Electronically Signed Date/Time: 07/11/2023 12:46 PM [facility] RADIOLOGY SYSTEM Patient Name: DIANA PUGH : 1975 Exam Date/Time: 07/11/2023 11:09 Procedure: CT ABDOMEN PELVIS WO IV CONTRAST Ordering Provider: WATERS LISA Reason For Exam: Abdominal pain, acute, nonlocalized CT ABDOMEN AND PELVIS WITHOUT IV CONTRAST CLINICAL INDICATION: Abdominal pain TECHNIQUE: Multidetector spiral transaxial sequence was performed through the abdomen and pelvis without intravenous contrast. Images were reconstructed at 3 mm slice width at 3 mm interval. Dose reduction was employed with automated exposure control. COMPARISON: None FINDINGS: Exam quality: This examination is limited for the evaluation of solid organs and vascular structures due to the lack of intravenous contrast. Also limited due to streak artifact from the patient's arms. Chest base: Small to moderate left pleural effusion and left basilar atelectasis. Liver: Normal size and contour. No identifiable lesion. Biliary tree: Normal caliber. The gallbladder is surgically absent. Spleen: Normal. Adrenals: Normal. Pancreas: Normal. Kidneys: No contour abnormality or focal renal lesion. Renal collecting systems: Large 17 mm left UPJ calculus causing moderate hydronephrosis. Numerous left renal calculi are present, measuring up to 11 mm. No radiopaque right-sided urinary calculi or hydroureteronephrosis. Free fluid: None. Retroperitoneal/mesenteric lymphadenopathy: None. Bowel: Normal caliber. The appendix is nondistended. There is a moderate to large amount of stool throughout the colon rectum. Aorta: Atherosclerotic calcifications are seen in the aorta and its branches. The aorta is normal in caliber. Abdominal wall: Normal. Pelvic organs/viscera: No mass identified. Bladder: No calculi or filling defects. Pelvic lymphadenopathy: None. Osseous structures: Dextrocurvature of the visualized spine. [facility] RAD[facility] Dakotah Alan MD - 07/11/2023 Patient Name: DIANA CALABRESE : 1975 [facility]#: [id number] Exam Date/Time: 07/11/2023 11:09 Procedure: CT ABDOMEN PELVIS WO IV CONTRAST Ordering Provider: WATERS LISA Reason For Exam: Abdominal pain, acute, nonlocalized CT ABDOMEN AND PELVIS WITHOUT IV CONTRAST CLINICAL INDICATION: Abdominal pain TECHNIQUE: Multidetector spiral transaxial sequence was performed through the abdomen and pelvis without intravenous contrast. Images were reconstructed at 3 mm slice width at 3 mm interval. Dose reduction was employed with automated exposure control. COMPARISON: None FINDINGS: Exam quality: This examination is limited for the evaluation of solid organs and vascular structures due to the lack of intravenous contrast. Also limited due to streak artifact from the patient's arms. Chest base: Small to moderate left pleural effusion and left basilar atelectasis. Liver: Normal size and contour. No identifiable lesion. Biliary tree: Normal caliber. The gallbladder is surgically absent. Spleen: Normal. Adrenals: Normal. Pancreas: Normal. Kidneys: No contour abnormality or focal renal lesion. Renal collecting systems: Large 17 mm left UPJ calculus causing moderate hydronephrosis. Numerous left renal calculi are present, measuring up to 11 mm. No radiopaque right-sided urinary calculi or hydroureteronephrosis. Free fluid: None. Retroperitoneal/mesenteric lymphadenopathy: None. Bowel: Normal caliber. The appendix is nondistended. There is a moderate to large amount of stool throughout the colon rectum. Aorta: Atherosclerotic calcifications are seen in the aorta and its branches. The aorta is normal in caliber. Abdominal wall: Normal. Pelvic organs/viscera: No mass identified. Bladder: No calculi or filling defects. Pelvic lymphadenopathy: None. Osseous structures: Dextrocurvature of the visualized spine. IMPRESSION: 1. Left UPJ calculus and multiple left renal calculi. Moderate left hydronephrosis. 2. Moderate to large amount of stool in the colon. Consider constipation. 3. Left pleural effusion. Report Dictated on Electronically Signed By: Dakotah Alan MD Electronically Signed Date/Time: 07/11/2023 12:46 PM EST [facility] Radiology Study observation (narrative) [facility] CT Abdomen WO contrastOrdere d By: Dakotah Alan on 07-11-2023 [facility] Work Phone: Bacteria identified Cx Nom ( Bld)Ordered By: Fide Lobato on 07-10-2023 Interpretation and review of laboratory results Abnormal [facility] Blood Collection Sit e: Left Hand [facility] Bacteria identified Cx Nom ( Bld)on 07-10-2023 Interpretation and review of laboratory results Abnormal [facility] Blood Collection Sit e: Right Arm [facility] Bacteria identified Cx Nom ( U)Ordered By: Duong Hall on 07-10-2023 Interpretation and review of laboratory results Abnormal [facility] Basic metabolic 1998 panelon 07-10-2023 Anion gap [Moles/Vol] 7 mmol/L 3 - 13 mmol/L [facility] Calcium [Mass/Vol] 8.2 mg/dL Low 8.4 - 10. 4 mg/dL [facility] Chloride [Moles/Vol] 109 mmol/L High 98 - 10 7 mmol/L [facility] CO2 [Moles/Vol] 21 mmol/L Low 22 - 30 mmol/L [facility] Creatinine [Mass/Vol] 0.69 mg/dL 0.52 - 1.04 mg/dL [facility] GFR/1.73 sq M.predicted MDRD (S/P/Bld) [Vol rate/Area] - PINF [facility] Comment on above: Calculation based on the Chronic Kidney Disease Epidemiology Collaboration (CKD-EPI) equation refit without adjustment for race Glucose [Mass/Vol] 89 mg/dL 70 - 100 mg/dL [facility] Interpretation and review of laboratory results Abnormal [facility] Potassium [Moles/Vol] 3.8 mmol/L 3.5 - 5.1 mmol/L [facility] Sodium [Moles/Vol] 137 mmol/L 135 - 145 mmol/L [facility] Urea nitrogen [Mass/Vol] 9 mg/dL 7 - 17 mg/dL [facility] CBC panel Auto (Bld)Ordered By: Dariel Hollins on 07-10-2023 Erythrocyte distribution width (RBC) [Ratio] 15.1 % High 11.5 - 14.5 % [facility] Hematocrit (Bld) [Volume fraction] 32.7 % Low 35.0 - 47.0 % [facility] Hemoglobin (Bld) [Mass/Vol] 10.8 g/dL Low 11.7 - 16.0 g/dL [facility] Interpretation and review of laboratory results Abnormal [facility] MCH (RBC) [Entitic mass] 28.4 pg 26.0 - 34.0 pg [facility] MCHC (RBC) [Mass/Vol] 33.1 % 32.0 - 36.0 % [facility] MCV (RBC) [Entitic vol] 85.8 fL 80.0 - 98.0 fL [facility] Platelet mean volume (Bld) [Entitic vol] 8.6 fL 7.4 - 12.4 fL [facility] Platelets (Bld) [#/Vol] 291 10*3/uL 140 - 440 10*3/uL [facility] RBC (Bld) [#/Vol] 3.82 10*6/uL 3.8 - 5.20 10*6/uL [facility] WBC (Bld) [#/Vol] 6.5 10*3/uL 3.6 - 10.7 10*3/uL [facility] Laboratory - Drug toxicology on 07-10-2023 Vancomycin [Mass/Vol] 19.4 ug/mL 15.0 - 20.0 ug/mL [facility] Laboratory - Microbiology an d Antimicrobial susceptibilityOrdered By: Fide Lobato on 07-10-2023 Bacteria identified Cx Nom (Bld) Staphylococcus warneri Critically abnormal [facility] Comment on above: Contamination likely unless additional blood culture sets are found to be positive with the same organism. This is an edited result. Previous organism was Gram-positive cocci on 07/08/2023 at 1347 EST. Laboratory - Microbiology an d Antimicrobial susceptibilityon 07-10-2023 Bacteria identified Cx Nom (Bld) Staphylococcus capitis Critically abnormal [facility] Comment on above: Contamination likely unless additional blood culture sets are found to be positive with the same organism. This is an edited result. Previous organism was Gram-positive cocci on 07/09/2023 at 0049 EST. Laboratory - Microbiology an d Antimicrobial susceptibilityOrdered By: Duong Hall on 07-10-2023 Bacteria identified Cx Nom (U) Normal urogenital alin present [facility] Bacteria identified Cx Nom (U) 50,000-90,000 CFU/mL Escherichia coli Abnormal [facility] No Panel Informationon 07-10 Interpretation and review of laboratory results Normal [facility] Basic metabolic 1998 panelon 07-09-2023 Anion gap [Moles/Vol] 10 mmol/L 3 - 13 mmol/L [facility] Calcium [Mass/Vol] 8.3 mg/dL Low 8.4 - 10. 4 mg/dL [facility] Chloride [Moles/Vol] 111 mmol/L High 98 - 10 7 mmol/L [facility] CO2 [Moles/Vol] 20 mmol/L Low 22 - 30 mmol/L [facility] Creatinine [Mass/Vol] 0.68 mg/dL 0.52 - 1.04 mg/dL [facility] GFR/1.73 sq M.predicted MDRD (S/P/Bld) [Vol rate/Area] - PINF [facility] Comment on above: Calculation based on the Chronic Kidney Disease Epidemiology Collaboration (CKD-EPI) equation refit without adjustment for race Glucose [Mass/Vol] 86 mg/dL 70 - 100 mg/dL [facility] Interpretation and review of laboratory results Abnormal [facility] Potassium [Moles/Vol] 3.4 mmol/L Low 3.5 - 5.1 mmol/L [facility] Sodium [Moles/Vol] 141 mmol/L 135 - 145 mmol/L [facility] Urea nitrogen [Mass/Vol] 9 mg/dL 7 - 17 mg/dL [facility] CBC panel Auto (Bld)Ordered By: Amanda Cedillo on 07-09-2023 Erythrocyte distribution width (RBC) [Ratio] 14.8 % High 11.5 - 14.5 % [facility] Hematocrit (Bld) [Volume fraction] 31.1 % Low 35.0 - 47.0 % [facility] Hemoglobin (Bld) [Mass/Vol] 10.3 g/dL Low 11.7 - 16.0 g/dL [facility] Interpretation and review of laboratory results Abnormal [facility] MCH (RBC) [Entitic mass] 28.7 pg 26.0 - 34.0 pg [facility] MCHC (RBC) [Mass/Vol] 33.2 % 32.0 - 36.0 % [facility] MCV (RBC) [Entitic vol] 86.3 fL 80.0 - 98.0 fL [facility] Platelet mean volume (Bld) [Entitic vol] 8.4 fL 7.4 - 12.4 fL [facility] Platelets (Bld) [#/Vol] 261 10*3/uL 140 - 440 10*3/uL [facility] RBC (Bld) [#/Vol] 3.61 10*6/uL Low 3.8 - 5.20 10*6/uL [facility] WBC (Bld) [#/Vol] 6.5 10*3/uL 3.6 - 10.7 10*3/uL [facility] No Panel Informationon 07-08 Coagulase-negative Staphylococcus Detected Abnormal Not Detected [facility] Interpretation and review of laboratory results Abnormal [facility] Methodology: Multipl ex PCR The [employer] BCID panel can detect the following organisms: E. faecalis, E. faecium, Staphylococcus spp., S. aureus, S. epidermidis, S. lugdunensis, Streptococcus spp., S. pyogenes (Group A), S. agalactiae (Group B), S. pneumoniae, A. baumannii complex, B. fragilis, H. influenzae, N. meningitidis, P. aeruginosa, S. maltophilia, Enterobacterales, E. cloacae complex, E. coli, K. aerogenes, K. oxytoca, K. pneumoniae, Proteus spp., Salmonella spp., S. marcescens, C. albicans, C. auris, C. glabrata, C. krusei, C. parapsilosis, C. tropicalis, and C. neoformans/gattii. The following antimicrobial resistance genes are reported if appropriate organisms are detected: mecA/C and Jalil/B. The following antimicrobial resistance genes are reported if detected and the appropriate organisms are detected: CTX-M, IMP, KPC, NDM, OXA-48-like, VIM, and mcr-1. [facility] CBC panel Auto (Bld)Ordered By: Sarahi Haas on 07-07-2023 Erythrocyte distribution width (RBC) [Ratio] 15.0 % High 11.5 - 14.5 % [facility] Hematocrit (Bld) [Volume fraction] 37.3 % 35.0 - 47.0 % [facility] Hemoglobin (Bld) [Mass/Vol] 12.3 g/dL 11.7 - 16.0 g/dL [facility] Interpretation and review of laboratory results Abnormal [facility] MCH (RBC) [Entitic mass] 28.2 pg 26.0 - 34.0 pg [facility] MCHC (RBC) [Mass/Vol] 33.0 % 32.0 - 36.0 % [facility] MCV (RBC) [Entitic vol] 85.4 fL 80.0 - 98.0 fL [facility] Platelet mean volume (Bld) [Entitic vol] 8.3 fL 7.4 - 12.4 fL [facility] Platelets (Bld) [#/Vol] 331 10*3/uL 140 - 440 10*3/uL [facility] RBC (Bld) [#/Vol] 4.37 10*6/uL 3.8 - 5.20 10*6/uL [facility] WBC (Bld) [#/Vol] 6.5 10*3/uL 3.6 - 10.7 10*3/uL [facility] CT Head WO contraston 2022 No significant inter stacey change since May 2022. Fairly extensive bilateral frontal-parietal encephalomalacia Report Dictated on Electronically Signed By: Denilson Gage MD Electronically Signed Date/Time: 07/07/2023 6:28 PM [facility] Patient Name: DIANA PUGH : 1975 Exam Date/Time: 07/07/2023 18:16 Procedure: CT HEAD WO IV CONTRAST Ordering Provider: DEJESUS NICHOLAS Reason For Exam: AMS EXAMINATION: CT [...] of the clivus and with C1 (anteriorly). [facility] Denilson Gage MD - 07/07/2023 Patient Name: DIA[facility] CALABRESE : 1975 [id number] Exam Date/Time: 07/07/2023 18:16 Procedure: CT HEAD WO IV CONTRAST Ordering Provider: DEJESUS NICHOLAS Reason For Exam: AMS EXAMINATION: CT [...] of the clivus and with C1 (anteriorly). IMPRESSION: No significant interval change since May 2022. Fairly extensive bilateral frontal-parietal encephalomalacia Report Dictated on Electronically Signed By: Denilson Gage MD Electronically Signed Date/Time: 07/07/2023 6:28 PM EST [facility] [address] Head WO contrastOrdered B y: Denilson Gage on 07-07-2023 [facility] Work Phone: Comprehensive metabolic 1998 panelon 07-07-2023 Albumin [Mass/Vol] 3.4 g/dL Low 3.5 - 5.0 g/dL [facility] ALP [Catalytic activity/Vol] 91 U/L 38 - 126 U/L [facility] ALT [Catalytic activity/Vol] 15 U/L 0 - 34 U/L [facility] Anion gap [Moles/Vol] 10 mmol/L 3 - 13 mmol/L [facility] AST [Catalytic activity/Vol] 26 U/L 15 - 46 U/L [facility] Bilirubin [Mass/Vol] 0.4 mg/dL 0.2 - 1 .3 mg/dL [facility] Calcium [Mass/Vol] 8.8 mg/dL 8.4 - 10. 4 mg/dL [facility] Chloride [Moles/Vol] 105 mmol/L 98 - 10 7 mmol/L [facility] CO2 [Moles/Vol] 23 mmol/L 22 - 30 mmol/L [facility] Creatinine [Mass/Vol] 0.76 mg/dL 0.52 - 1.04 mg/dL [facility] GFR/1.73 sq M.predicted MDRD (S/P/Bld) [Vol rate/Area] - PINF [facility] Comment on above: Calculation based on the Chronic Kidney Disease Epidemiology Collaboration (CKD-EPI) equation refit without adjustment for race Glucose [Mass/Vol] 110 mg/dL High 70 - 100 mg/dL [facility] Interpretation and review of laboratory results Abnormal [facility] Potassium [Moles/Vol] 4.3 mmol/L 3.5 - 5.1 mmol/L [facility] Protein [Mass/Vol] 8.0 g/dL 6.3 - 8.2 g/dL [facility] Sodium [Moles/Vol] 137 mmol/L 135 - 145 mmol/L [facility] Urea nitrogen [Mass/Vol] 20 mg/dL High 7 - 17 mg/dL [facility] Slight hemolysis [facility] Laboratory - Chemistry and C hemistry - challengeon 07-07-2023 Lactate [Moles/Vol] 0.7 mmol/L 0.7 - 2. 0 mmol/L [facility] Troponin I.cardiac [Mass/Vol] ng/mL NINF - 0.034 ng/mL [facility] Glucose [Mass/Vol] 106 mg/dL High 70 - 100 mg/dL [facility] No Panel Informationon 07-07 Interpretation and review of laboratory results Normal [facility] P [place] 40 degrees [facility] VA Interval 151 ms [facility] QRS [place] 39 degrees [facility] QRSD Interval 92 ms [facility] QT Interval 384 ms [facility] QTC Interval 423 ms [facility] T Wave [place] 24 degrees [facility] Sinus rhythm Compared to ECG 11/03/2016 11:45:08 T-wave abnormality no longer present Electronically Signed On 07-07-2023 17:12:08 EST by Dakotah Dejesus CV Dakotah Schuster MD - 07/07/2023 IMPRESSION: Sinus rhythm Compared to ECG 11/03/2016 11:45:08 T-wave abnormality no longer present Electronically Signed On 07-07-2023 17:12:08 EST by Dakotah Dejesus [facility] Interpretation and review of laboratory results Abnormal [facility]: [facility], [address] [place] [address] CLIA ID: [id number] [facility] Radiology Study observation (narrative) [facility] Troponin I.cardiac [Mass/Vol ]on 07-07-2023 Interpretation and review of laboratory results Normal [facility] Patients with high l evels of Biotin oral intake (ie >5 mg/day) may have falsely decreased Troponin levels. [facility] Urinalysis complete panel (U )Ordered By: Gabriella Bonilla on 07-07-2023 Bacteria LM.HPF (Urine sed) [#/Area] Loaded Abnormal Negative /HPF [facility] Bilirubin Ql (U) Negative Negative mg/dL [facility] Clarity (U) Turbid Abnormal Clear [facility] Color (U) Yellow Lt. Yellow [facility] Epithelial cells.squamous LM.HPF (Urine sed) [#/Area] 3-5 [facility] Glucose Ql (U) Normal Normal (<70) mg/dL [facility] Hemoglobin Ql (U) Negative Negative mg/dL [facility] Interpretation and review of laboratory results Abnormal [facility] Ketones (U) [Mass/Vol] Negative Negat golden mg/dL [facility] Leukocyte esterase Test strip Ql (U) Negative Negative Robert/uL [facility] Mucus LM.HPF (Urine sed) [#/Area] Few Negative /LPF [facility] Nitrite Ql (U) Positive Abnormal Negative [facility] Non-Squamous Epithalial Cells, Urine 0-2 Abnormal Negative /HPF [facility] pH (U) 6.0 [pH] 5.0 - 8.0 pH [facility] Protein (U) [Mass/Vol] 10 mg/dL Abnormal Negative [facility] RBC LM.HPF (Urine sed) [#/Area] 0-2 [facility] Specific gravity (U) [Rel density] 1.019 1.005 - 1.030 [facility] Urobilinogen (U) [Mass/Vol] Normal Normal (0-1) mg/dL [facility] WBC LM.HPF (Urine sed) [#/Area] 3-5 [facility] Vital signson 07-07-2023 Heart rate 73 /min bpm [facility] XR Chest Single viewon 07-07 Low lung volumes. No evidence of an acute abnormality. Report Dictated on Electronically Signed By: Jaspal Schwartz MD Electronically Signed Date/Time: 07/07/2023 3:56 PM [facility] [employer] Patient Name: DIANA PUGH : 1975 Exam Date/Time: 07/07/2023 15:57 Procedure: XR CHEST 1 VIEW Ordering Provider: DEJESUS NICHOLAS Reason For Exam: AMS AP CHEST X-RAY CLINICAL INDICATION: AMS TECHNIQUE: AP portable x-ray of the chest. COMPARISON: 07/03/2021 FINDINGS: Heart/Mediastinum: Within normal limits Lungs: Low lung volumes. No definite airspace consolidation or pleural effusion. Bones: Degenerative changes are seen in the thoracic spine and shoulders. No acute osseous findings. [facility] Jaspal Schwartz M D - 07/07/2023 Patient Name: DIANA CALABRESE : 1975 Exam Date/Time: 07/07/2023 15:57 Procedure: XR CHEST 1 VIEW Ordering Provider: DEJESUS NICHOLAS Reason For Exam: AMS AP CHEST X-RAY CLINICAL INDICATION: AMS TECHNIQUE: AP portable x-ray of the chest. COMPARISON: 07/03/2021 FINDINGS: Heart/Mediastinum: Within normal limits Lungs: Low lung volumes. No definite airspace consolidation or pleural effusion. Bones: Degenerative changes are seen in the thoracic spine and shoulders. No acute osseous findings. IMPRESSION: Low lung volumes. No evidence of an acute abnormality. Report Dictated on Electronically Signed By: Jaspal Schwartz MD Electronically Signed Date/Time: 07/07/2023 3:56 PM EST [facility] [address] XR Chest Single viewOrdered By: Jaspal Schwartz on 07-07-2023 [facility] [address] Work Phone: Basophil percentageOrdered B y: Venkat Malin on 06-20-2023 Bilirubin [Mass/Vol] 0.20 mg/dL 0.20-1.00 [facility] Comment on above: For patients on eltr ombopag therapy, use of Dimension [place] TBIL is not recommended. Chloride [Moles/Vol] 110 mmol/L 98-107 [facility] Glucose [Mass/Vol] 97 mg/dL 74-106 [facility] Potassium [Moles/Vol] 3.9 mmol/L 3.5-5.1 [facility] Protein [Mass/Vol] 7.8 g/dL 6.4-8.2 [facility] Sodium [Moles/Vol] 140 mmol/L 136-145 [facility] WBC (Bld) [#/Vol] 6.2 10*3/uL 4.4-11.0 [facility] Blood erythrocytes count (nu mber/volume)Ordered By: Venkat Malin on 06-20-2023 RBC (Bld) [#/Vol] 4.63 10*6/uL 4.2-5.[address] [facility] Blood hemoglobin measurement (mass/volume)Ordered By: Venkat Malin on 06-20-2023 Hemoglobin (Bld) [Mass/Vol] 12.9 g/dL 12.0-15.0 [facility] Blood platelet mean volumeOr dered By: Venkat Malin on 06-20-2023 Platelet mean volume (Bld) [Entitic vol] 11.0 fL 6.2-12.0 [facility] Determination of erythrocyte mean corpuscular volume (MCV)Ordered By: Venkat Malin on 06-20-2023 MCV (RBC) [Entitic vol] 90.3 fL 81-99 [facility] Hematocrit Auto (Bld) [Volum e fraction]Ordered By: Venkat Malin on 06-20-2023 Hematocrit (Bld) [Volume fraction] 41.8 % 37-47 [facility] Laboratory - Chemistry and C hemistry - challengeOrdered By: Venkat Malin on 06-20-2023 ALP [Catalytic activity/Vol] 119 U/L 45-117 [facility] ALT [Catalytic activity/Vol] 15 U/L 13-56 [facility] CO2 [Moles/Vol] 28.0 mmol/L 21.0-32.0 [facility] Globulin (S) [Mass/Vol] 5.2 g/dL 2.2-4.2 [facility] Urea nitrogen/Creatinine [Mass ratio] 19.4 mg/mg 10-20 [facility] Laboratory - Hematology and Cell countsOrdered By: Venkat Malin on 06-20-2023 Erythrocyte distribution width (RBC) [Entitic vol] 49.9 fL 35.1-43.9 [facility] Erythrocyte distribution width (RBC) [Ratio] 15.1 % 11.6-14.6 [facility] MCH (RBC) [Entitic mass] 27.9 pg 27.0-32.0 [facility] MCHC Auto (RBC) [Mass/Vol]Or dered By: Venkat Malin on 06-20-2023 MCHC (RBC) [Mass/Vol] 30.9 g/dL 32-36 [facility] No Panel InformationOrdered By: Venkat Malin on 06-20-2023 Estimated GFR (MDRD) Amer 95 mL/min >60 [facility] Comment on above: GFR Calc Estimated GFR (MDRD) Non-Af Amer 79 mL/min >60 [facility] Comment on above: Non- GFR Calc Platelets bldOrdered By: Pet er Katsaros on 06-20-2023 Platelets (Bld) [#/Vol] 321 10*3/uL 150-450 [facility] Serum or plasma albumin kavin urement (mass/volume)Ordered By: Venkat Malin on 06-20-2023 Albumin [Mass/Vol] 2.6 g/dL 3.2-5.0 [facility] Serum or plasma albumin/glob ulin mass ratioOrdered By: Venkat Malin on 06-20-2023 Albumin/Globulin [Mass ratio] 0.5 {ratio} 0.9-2.4 [facility] Serum or plasma calcium kavin urement (mass/volume)Ordered By: Venkat Malin on 06-20-2023 Calcium [Mass/Vol] 9.0 mg/dL 8.5-10.1 [facility] Serum or plasma creatinine m easurement (mass/volume)Ordered By: Venkat Malin on 06-20-2023 Creatinine [Mass/Vol] 0.83 mg/dL 0.55-1.02 [facility] Comment on above: The validity of the calculated GFR & GFRAA in patients over 70 years has not been determined. Clinical correlation is essential. Serum or plasma urea nitroge n measurement (mass/volume)Ordered By: Venkat Malin on 06-20-2023 Urea nitrogen [Mass/Vol] 16 mg/dL 7-18 [facility] Thin prep Papanicolaou smear with manual screeningOrdered By: Venkat Malin on 06-20-2023 Thin prep Papanicolaou smear with manual screening 12 U/L 15-37 [facility] Thin prep Papanicolaou smear with manual screening 2 5-15 [facility] US Breast - left limitedon 1 08-08-2022 Skin lesion likely representing a sebaceous cyst or epidermal cyst. ASSESSMENT: Category 2 Benign RECOMMENDATION: Clinical correlation Left Report Dictated on Electronically Signed By: Kylah Perez MD Electronically Signed Date/Time: 06/08/2023 3:24 PM [facility] [employer] Patient Name: DIANA PUGH : 1975 Exam Date/Time: 06/08/2023 15:01 Procedure: BI US BREAST LIMITED LEFT Ordering Provider: WRIGHT KYLE Reason For Exam: L breast lesion, pain Prior study Comparisons: There were no priors available for comparison. Findings: The patient is a 47-year-old presenting with a left breast mass. A mass was described on a prior mammogram however imaging is not available for comparison. Targeted ultrasound was performed in the area of palpable concern at the 8:00 position 4 cm from the nipple. At this location there is a predominantly hypoechoic mass within the dermis measuring 1.7 x 1.5 x 0.9 cm. There is no vascular flow. No tract is seen to the skin surface. The findings may represent a sebaceous cyst or epidermal cyst. The underlying breast parenchyma is normal. [facility] Kylah Perez MD - 06/08/2023 Patient Name: DIANA CALABRESE : 1975 Exam Date/Time: 06/08/2023 15:01 Procedure: BI US BREAST LIMITED LEFT Ordering Provider: WRIGHT KYLE Reason For Exam: L breast lesion, pain Prior study Comparisons: There were no priors available for comparison. Findings: The patient is a 47-year-old presenting with a left breast mass. A mass was described on a prior mammogram however imaging is not available for comparison. Targeted ultrasound was performed in the area of palpable concern at the 8:00 position 4 cm from the nipple. At this location there is a predominantly hypoechoic mass within the dermis measuring 1.7 x 1.5 x 0.9 cm. There is no vascular flow. No tract is seen to the skin surface. The findings may represent a sebaceous cyst or epidermal cyst. The underlying breast parenchyma is normal. IMPRESSION: Skin lesion likely representing a sebaceous cyst or epidermal cyst. ASSESSMENT: Category 2 Benign RECOMMENDATION: Clinical correlation Left Report Dictated on Electronically Signed By: Kylah Perez MD Electronically Signed Date/Time: 06/08/2023 3:24 PM EST [facility] [address] Radiology Study observation (narrative) [id number] [address] US Breast - left limitedOrde red By: Kylah Perez on 06-08-2023 [employer] Work Phone: No Panel InformationOrdered By: Venkat Malin on 04-26-2023 Carbamazepine (Tegretol) Level < 0.5 ug/mL 4.0-12.0 [facility] Basophil percentageOrdered B y: Venkat Malin on 02-28-2023 Bilirubin [Mass/Vol] 0.40 mg/dL 0.20-1.00 [facility] Comment on above: For patients on eltr ombopag therapy, use of Dimension [place] TBIL is not recommended. Chloride [Moles/Vol] 111 mmol/L 98-107 [facility] Glucose [Mass/Vol] 88 mg/dL 74-106 [facility] Potassium [Moles/Vol] 3.6 mmol/L 3.5-5.1 [facility] Protein [Mass/Vol] 7.9 g/dL 6.4-8.2 [facility] Sodium [Moles/Vol] 139 mmol/L 136-145 [facility] WBC (Bld) [#/Vol] 7.3 10*3/uL 4.4-11.0 [facility] Blood erythrocytes count (nu mber/volume)Ordered By: Venkat Malin on 02-28-2023 RBC (Bld) [#/Vol] 4.50 10*6/uL 4.2-5.[address] [facility] Blood hemoglobin measurement (mass/volume)Ordered By: Venkat Malin on 02-28-2023 Hemoglobin (Bld) [Mass/Vol] 12.8 g/dL 12.0-15.0 [facility] Blood platelet mean volumeOr dered By: Venkat Malin on 02-28-2023 Platelet mean volume (Bld) [Entitic vol] 11.0 fL 6.2-12.0 [facility] Determination of erythrocyte mean corpuscular volume (MCV)Ordered By: Venkat Malin on 02-28-2023 MCV (RBC) [Entitic vol] 90.0 fL 81-99 [facility] Hematocrit Auto (Bld) [Volum e fraction]Ordered By: Venkat Malin on 02-28-2023 Hematocrit (Bld) [Volume fraction] 40.5 % 37-47 [facility] Laboratory - Chemistry and C hemistry - challengeOrdered By: Venkat Malin on 02-28-2023 ALP [Catalytic activity/Vol] 126 U/L 45-117 [facility] ALT [Catalytic activity/Vol] 20 U/L 13-56 [facility] CO2 [Moles/Vol] 23.0 mmol/L 21.0-32.0 [facility] Globulin (S) [Mass/Vol] 5.2 g/dL 2.2-4.2 [facility] Urea nitrogen/Creatinine [Mass ratio] 17.6 mg/mg 10-20 [facility] Laboratory - Hematology and Cell countsOrdered By: Venkat Malin on 02-28-2023 Erythrocyte distribution width (RBC) [Entitic vol] 50.6 fL 35.1-43.9 [facility] Erythrocyte distribution width (RBC) [Ratio] 15.3 % 11.6-14.6 [facility] MCH (RBC) [Entitic mass] 28.4 pg 27.0-32.0 [facility] MCHC Auto (RBC) [Mass/Vol]Or dered By: Venkat Malin on 02-28-2023 MCHC (RBC) [Mass/Vol] 31.6 g/dL 32-36 [facility] No Panel InformationOrdered By: Venkat Malin on 02-28-2023 Estimated GFR (MDRD) Amer 108 mL/min >60 [facility] Comment on above: GFR Calc Estimated GFR (MDRD) Non-Af Amer 90 mL/min >60 [facility] Comment on above: Non- GFR Calc Miscellaneous Test See comment [facility] Comment on above: TEST RESULTS LIMITSC arbamazepine(Tegretol), S 1.6 Low ug/mL 4.0-12.0 In conjunction with other antiepileptic drugs Therapeutic 4.0 - 8.0 Toxicity 9.0 - 12.0 Carbamazepine alone Therapeutic 8.0 - 12.0 Detection Limit = 2.0 <2.0 indicates None Detected TESTING PERFORMED AT [facility]. ORIGINAL REPORT ON FILE IN LAB CONTAINS ADDITIONAL TEST SITE INFORMATION. Platelets bldOrdered By: Sarah Malin on 02-28-2023 Platelets (Bld) [#/Vol] 344 10*3/uL 150-450 [facility] Serum or plasma albumin kavin urement (mass/volume)Ordered By: Venkat Malin on 02-28-2023 Albumin [Mass/Vol] 2.7 g/dL 3.2-5.0 [facility] Serum or plasma albumin/glob ulin mass ratioOrdered By: Venkat Malin on 02-28-2023 Albumin/Globulin [Mass ratio] 0.5 {ratio} 0.9-2.4 [facility] Serum or plasma calcium kavin urement (mass/volume)Ordered By: Venkat Malin on 02-28-2023 Calcium [Mass/Vol] 8.8 mg/dL 8.5-10.1 [facility] Serum or plasma creatinine m easurement (mass/volume)Ordered By: Venkat Malin on 02-28-2023 Creatinine [Mass/Vol] 0.74 mg/dL 0.55-1.02 [facility] Comment on above: The validity of the calculated GFR & GFRAA in patients over 70 years has not been determined. Clinical correlation is essential. Serum or plasma urea nitroge n measurement (mass/volume)Ordered By: Venkat Malin on 02-28-2023 Urea nitrogen [Mass/Vol] 13 mg/dL 7-18 [facility] Thin prep Papanicolaou smear with manual screeningOrdered By: Venkat Malin on 02-28-2023 Thin prep Papanicolaou smear with manual screening 11 U/L 15-37 [facility] Thin prep Papanicolaou smear with manual screening 5 5-15 [facility] Basophil percentageOrdered B y: Venakt Malin on 12-29-2022 Bilirubin [Mass/Vol] 0.30 mg/dL 0.20-1.00 [facility] Comment on above: For patients on eltr ombopag therapy, use of Dimension [place] TBIL is not recommended. Chloride [Moles/Vol] 110 mmol/L 98-107 [facility] Glucose [Mass/Vol] 93 mg/dL 74-106 [facility] Potassium [Moles/Vol] 3.6 mmol/L 3.5-5.1 [facility] Protein [Mass/Vol] 7.8 g/dL 6.4-8.2 [facility] Sodium [Moles/Vol] 141 mmol/L 136-145 [facility] WBC (Bld) [#/Vol] 6.6 10*3/uL 4.4-11.0 [facility] Blood erythrocytes count (nu mber/volume)Ordered By: Venkat Malin on 12-29-2022 RBC (Bld) [#/Vol] 4.53 10*6/uL 4.2-5.[address] [facility] Blood hemoglobin measurement (mass/volume)Ordered By: Venkat Malin on 12-29-2022 Hemoglobin (Bld) [Mass/Vol] 12.5 g/dL 12.0-15.0 [facility] Blood platelet mean volumeOr dered By: Venkat Malin on 12-29-2022 Platelet mean volume (Bld) [Entitic vol] 10.7 fL 6.2-12.0 [facility] Determination of erythrocyte mean corpuscular volume (MCV)Ordered By: Venkat Malin on 12-29-2022 MCV (RBC) [Entitic vol] 90.7 fL 81-99 [facility] Hematocrit Auto (Bld) [Volum e fraction]Ordered By: Venkat Malin on 12-29-2022 Hematocrit (Bld) [Volume fraction] 41.1 % 37-47 [facility] Laboratory - Chemistry and C hemistry - challengeOrdered By: Venkat Malin on 12-29-2022 ALP [Catalytic activity/Vol] 116 U/L 45-117 [facility] ALT [Catalytic activity/Vol] 24 U/L 13-56 [facility] CO2 [Moles/Vol] 25.0 mmol/L 21.0-32.0 [facility] Globulin (S) [Mass/Vol] 5.1 g/dL 2.2-4.2 [facility] Urea nitrogen/Creatinine [Mass ratio] 19.8 mg/mg 10-20 [facility] Laboratory - Hematology and Cell countsOrdered By: Venkat Malin on 12-29-2022 Erythrocyte distribution width (RBC) [Entitic vol] 49.2 fL 35.1-43.9 [facility] Erythrocyte distribution width (RBC) [Ratio] 14.9 % 11.6-14.6 [facility] MCH (RBC) [Entitic mass] 27.6 pg 27.0-32.0 [facility] MCHC Auto (RBC) [Mass/Vol]Or dered By: Venkat Malin on 12-29-2022 MCHC (RBC) [Mass/Vol] 30.4 g/dL 32-36 [facility] No Panel InformationOrdered By: Venkat Malin on 12-29-2022 Estimated GFR (MDRD) Amer 91 mL/min >60 [facility] Comment on above: GFR Calc Estimated GFR (MDRD) Non-Af Amer 75 mL/min >60 [facility] Comment on above: Non- GFR Calc Platelets bldOrdered By: Sarah Malin on 12-29-2022 Platelets (Bld) [#/Vol] 324 10*3/uL 150-450 [facility] Serum or plasma albumin kavin urement (mass/volume)Ordered By: Venkat Malin on 12-29-2022 Albumin [Mass/Vol] 2.7 g/dL 3.2-5.0 [facility] Serum or plasma albumin/glob ulin mass ratioOrdered By: Venkat Malin on 12-29-2022 Albumin/Globulin [Mass ratio] 0.5 {ratio} 0.9-2.4 [facility] Serum or plasma calcium kavin urement (mass/volume)Ordered By: Venkat Malin on 12-29-2022 Calcium [Mass/Vol] 9.0 mg/dL 8.5-10.1 [facility] Serum or plasma creatinine m easurement (mass/volume)Ordered By: Venkat Malin on 12-29-2022 Creatinine [Mass/Vol] 0.86 mg/dL 0.55-1.02 [facility] Comment on above: The validity of the calculated GFR & GFRAA in patients over 70 years has not been determined. Clinical correlation is essential. Serum or plasma urea nitroge n measurement (mass/volume)Ordered By: Venkat Malin on 12-29-2022 Urea nitrogen [Mass/Vol] 17 mg/dL 7-18 [facility] Thin prep Papanicolaou smear with manual screeningOrdered By: Venkat Malin on 12-29-2022 Thin prep Papanicolaou smear with manual screening 14 U/L 15-37 [facility] Thin prep Papanicolaou smear with manual screening 6 5-15 [facility] CNCOon 11-21-2022 [facility] Letter Text [facility] Basophil percentageOrdered B y: Venkat Malin on 08-31-2022 Bilirubin [Mass/Vol] 0.20 mg/dL 0.20-1.00 [facility] Comment on above: For patients on eltr ombopag therapy, use of Dimension [place] TBIL is not recommended. Chloride [Moles/Vol] 110 mmol/L 98-107 [facility] Glucose [Mass/Vol] 93 mg/dL 74-106 [facility] Potassium [Moles/Vol] 4.2 mmol/L 3.5-5.1 [facility] Protein [Mass/Vol] 7.1 g/dL 6.4-8.2 [facility] Sodium [Moles/Vol] 142 mmol/L 136-145 [facility] WBC (Bld) [#/Vol] 6.6 10*3/uL 4.4-11.0 [facility] Blood erythrocytes count (nu mber/volume)Ordered By: Venkat Malin on 08-31-2022 RBC (Bld) [#/Vol] 4.67 10*6/uL 4.2-5.[address] [facility] Blood hemoglobin measurement (mass/volume)Ordered By: Venkat Malin on 08-31-2022 Hemoglobin (Bld) [Mass/Vol] 12.6 g/dL 12.0-15.0 [facility] Blood platelet mean volumeOr dered By: Venkat Malin on 08-31-2022 Platelet mean volume (Bld) [Entitic vol] 11.0 fL 6.2-12.0 [facility] Determination of erythrocyte mean corpuscular volume (MCV)Ordered By: Venkat Malin on 08-31-2022 MCV (RBC) [Entitic vol] 87.8 fL 81-99 [facility] Hematocrit Auto (Bld) [Volum e fraction]Ordered By: Venkat Malin on 08-31-2022 Hematocrit (Bld) [Volume fraction] 41.0 % 37-47 [facility] Laboratory - Chemistry and C hemistry - challengeOrdered By: Venkat Malin on 08-31-2022 ALP [Catalytic activity/Vol] 112 U/L 45-117 [facility] ALT [Catalytic activity/Vol] 24 U/L 13-56 [facility] CO2 [Moles/Vol] 24.0 mmol/L 21.0-32.0 [facility] Globulin (S) [Mass/Vol] 4.5 g/dL 2.2-4.2 [facility] Urea nitrogen/Creatinine [Mass ratio] 21.6 mg/mg 10-20 [facility] Laboratory - Hematology and Cell countsOrdered By: Venkat Malin on 08-31-2022 Erythrocyte distribution width (RBC) [Entitic vol] 50.0 fL 35.1-43.9 [facility] Erythrocyte distribution width (RBC) [Ratio] 15.6 % 11.6-14.6 [facility] MCH (RBC) [Entitic mass] 27.0 pg 27.0-32.0 [facility] MCHC Auto (RBC) [Mass/Vol]Or dered By: Venkat Malin on 08-31-2022 MCHC (RBC) [Mass/Vol] 30.7 g/dL 32-36 [facility] No Panel InformationOrdered By: Venkat Malin on 08-31-2022 Estimated GFR (MDRD) Amer 108 mL/min >60 [facility] Comment on above: GFR Calc Estimated GFR (MDRD) Non-Af Amer 89 mL/min >60 [facility] Comment on above: Non- GFR Calc Miscellaneous Test See comment [facility] Comment on above: TEST RESULT LIMITSCa rbamazepine (Tegretol), S <0.5 Low ug/mL 4.0-12.0 In conjunction with other antiepileptic drugs Therapeutic 4.0 - 8.0 Toxicity 9.0 - 12.0 Carbamazepine alone Therapeutic 8.0 - 12.0 Detection Limit = 2.0 <2.0 indicated None Detected Verified by repeat analysis ____ TESTING PERFORMED AT [facility]. ORIGINAL REPORT ON FILE IN LAB CONTAINS ADDITIONAL TEST SITE INFORMATION. Platelets bldOrdered By: Sarah Malin on 08-31-2022 Platelets (Bld) [#/Vol] 354 10*3/uL 150-450 [facility] Serum or plasma albumin kavin urement (mass/volume)Ordered By: Venkat Malin on 08-31-2022 Albumin [Mass/Vol] 2.6 g/dL 3.2-5.0 [facility] Serum or plasma albumin/glob ulin mass ratioOrdered By: Venkat Malin on 08-31-2022 Albumin/Globulin [Mass ratio] 0.6 {ratio} 0.9-2.4 [facility] Serum or plasma calcium kavin urement (mass/volume)Ordered By: Venkat Malin on 08-31-2022 Calcium [Mass/Vol] 8.5 mg/dL 8.5-10.1 [facility] Serum or plasma creatinine m easurement (mass/volume)Ordered By: Venkat Malin on 08-31-2022 Creatinine [Mass/Vol] 0.74 mg/dL 0.55-1.02 [facility] Comment on above: The validity of the calculated GFR & GFRAA in patients over 70 years has not been determined. Clinical correlation is essential. Serum or plasma urea nitroge n measurement (mass/volume)Ordered By: Venkat Malin on 08-31-2022 Urea nitrogen [Mass/Vol] 16 mg/dL 7-18 [facility] Thin prep Papanicolaou smear with manual screeningOrdered By: Venkat Malin on 08-31-2022 Thin prep Papanicolaou smear with manual screening 12 U/L 15-37 [facility] Thin prep Papanicolaou smear with manual screening 8 5-15 [facility] Basophil percentageOrdered B y: Venkat aMlin on 06-30-2022 Chloride [Moles/Vol] 107 mmol/L 98-107 [facility] Glucose [Mass/Vol] 100 mg/dL 74-106 [facility] Comment on above: Fasting Glucose resu lt from 100 to 125 mg/dL suggests IMPAIRED HOMEOSTASIS per A.D.A. criteria. Potassium [Moles/Vol] 3.9 mmol/L 3.5-5.1 [facility] Sodium [Moles/Vol] 138 mmol/L 136-145 [facility] WBC (Bld) [#/Vol] 6.4 10*3/uL 4.4-11.0 [facility] Blood erythrocytes count (nu mber/volume)Ordered By: Venkat Malin on 06-30-2022 RBC (Bld) [#/Vol] 4.53 10*6/uL 4.2-5.[address] [facility] Blood hemoglobin measurement (mass/volume)Ordered By: Venkat Malin on 06-30-2022 Hemoglobin (Bld) [Mass/Vol] 12.4 g/dL 12.0-15.0 [facility] Blood platelet mean volumeOr dered By: Venkat Malin on 06-30-2022 Platelet mean volume (Bld) [Entitic vol] 10.8 fL 6.2-12.0 [facility] Determination of erythrocyte mean corpuscular volume (MCV)Ordered By: Venkat Malin on 06-30-2022 MCV (RBC) [Entitic vol] 89.4 fL 81-99 [facility] Hematocrit Auto (Bld) [Volum e fraction]Ordered By: Venkat Malin on 06-30-2022 Hematocrit (Bld) [Volume fraction] 40.5 % 37-47 [facility] Laboratory - Chemistry and C hemistry - challengeOrdered By: Venkat Malin on 06-30-2022 CO2 [Moles/Vol] 24.0 mmol/L 21.0-32.0 [facility] Urea nitrogen/Creatinine [Mass ratio] 26.5 mg/mg 10-20 [facility] Laboratory - Hematology and Cell countsOrdered By: Venkat Malin on 06-30-2022 Erythrocyte distribution width (RBC) [Entitic vol] 49.1 fL 35.1-43.9 [facility] Erythrocyte distribution width (RBC) [Ratio] 14.9 % 11.6-14.6 [facility] MCH (RBC) [Entitic mass] 27.4 pg 27.0-32.0 [facility] MCHC Auto (RBC) [Mass/Vol]Or dered By: Venkat Malin on 06-30-2022 MCHC (RBC) [Mass/Vol] 30.6 g/dL 32-36 [facility] No Panel InformationOrdered By: Venkat Malin on 06-30-2022 Estimated GFR (MDRD) Amer 95 mL/min >60 [facility] Comment on above: GFR Calc Estimated GFR (MDRD) Non-Af Amer 79 mL/min >60 [facility] Comment on above: Non- GFR Calc Platelets bldOrdered By: Sarah Malin on 06-30-2022 Platelets (Bld) [#/Vol] 285 10*3/uL 150-450 [facility] Serum or plasma calcium kavin urement (mass/volume)Ordered By: Venkat Malin on 06-30-2022 Calcium [Mass/Vol] 9.1 mg/dL 8.5-10.1 [facility] Serum or plasma creatinine m easurement (mass/volume)Ordered By: Venkat Malin on 06-30-2022 Creatinine [Mass/Vol] 0.83 mg/dL 0.55-1.02 [facility] Comment on above: The validity of the calculated GFR & GFRAA in patients over 70 years has not been determined. Clinical correlation is essential. Serum or plasma urea nitroge n measurement (mass/volume)Ordered By: Venkat Malin on 06-30-2022 Urea nitrogen [Mass/Vol] 22 mg/dL 7-18 [facility] Thin prep Papanicolaou smear with manual screeningOrdered By: Venkat Malin on 06-30-2022 Thin prep Papanicolaou smear with manual screening 7 5-15 [facility] Absolute lymphocyte counton 02-28-2022 Lymphocytes Auto (Unsp spec) [#/Vol] 1.92 10*3/uL 0.83-4.51 [facility] Work Phone: Basophil percentageon 2021 Basophils/100 WBC (Bld) 1.3 % 0-1 [facility] Work Phone: Bilirubin [Mass/Vol] 0.40 mg/dL 0.20-1.00 [facility] Work Phone: Comment on above: For patients on eltr ombopag therapy, use of Dimension [place]man TBIL is not recommended. Chloride [Moles/Vol] 110 mmol/L 98-107 [facility] Work Phone: Eosinophils/100 WBC (Bld) 2.9 % 0-5 [facility] Work Phone: Glucose [Mass/Vol] 81 mg/dL 74-106 [facility] Work Phone: Neutrophils (Bld) [#/Vol] 2.7 10*3/uL 2.0-7.7 [facility] Work Phone: Neutrophils/100 WBC (Bld) 52.4 % 47-70 [facility] Work Phone: Potassium [Moles/Vol] 3.9 mmol/L 3.5-5.1 [facility] Work Phone: Protein [Mass/Vol] 7.2 g/dL 6.4-8.2 [facility] Work Phone: Sodium [Moles/Vol] 139 mmol/L 136-145 [facility] Work Phone: WBC (Bld) [#/Vol] 5.2 10*3/uL 4.4-11.0 [facility] Work Phone: Blood erythrocytes count (nu mber/volume)on 02-28-2022 RBC (Bld) [#/Vol] 5.12 10*6/uL 4.2-5.[address] [facility] Work Phone: Blood hemoglobin measurement (mass/volume)on 02-28-2022 Hemoglobin (Bld) [Mass/Vol] 15.5 g/dL 12.0-15.0 [facility] Work Phone: Blood lymphocytes/100 leukoc yteson 02-28-2022 Lymphocytes/100 WBC (Bld) 36.7 % 19-41 [facility] Work Phone: Blood monocytes/100 leukocyt eson 02-28-2022 Monocytes/100 WBC (Bld) 6.3 % 0-10 [facility] Work Phone: Blood platelet mean volumeon 02-28-2022 Platelet mean volume (Bld) [Entitic vol] 12.2 fL 6.2-12.0 [facility] Work Phone: Determination of erythrocyte mean corpuscular volume (MCV)on 02-28-2022 MCV (RBC) [Entitic vol] 92.0 fL 81-99 [facility] Work Phone: Hematocrit Auto (Bld) [Volum e fraction]on 02-28-2022 Hematocrit (Bld) [Volume fraction] 47.1 % 37-47 [facility] Work Phone: Laboratory - Chemistry and C hemistry - challengeon 02-28-2022 ALP [Catalytic activity/Vol] 124 U/L 45-117 [facility] Work Phone: ALT [Catalytic activity/Vol] 49 U/L 13-56 [facility] Work Phone: CO2 [Moles/Vol] 22.0 mmol/L 21.0-32.0 [facility] Work Phone: Globulin (S) [Mass/Vol] 4.2 g/dL 2.2-4.2 [facility] Work Phone: Urea nitrogen/Creatinine [Mass ratio] 26.4 mg/mg 10-20 [facility] Work Phone: Laboratory - Hematology and Cell countson 08-01-2022 Erythrocyte distribution width (RBC) [Entitic vol] 46.6 fL 35.1-43.9 [facility] Work Phone: Erythrocyte distribution width (RBC) [Ratio] 13.7 % 11.6-14.6 [facility] Work Phone: Immature granulocytes/100 WBC (Bld) 0.400 % 0.0-0.9 [facility] Work Phone: Comment on above: IG% - Immature Granu locytes (promyelocytes, myelocytes and metamyelocytes) > 1% indicates that a LEFT SHIFT is Present. MCH (RBC) [Entitic mass] 30.3 pg 27.0-32.0 [facility] Work Phone: Nucleated RBC/100 WBC (Bld) [Ratio] 0 % 0-5 [facility] Work Phone: MCHC Auto (RBC) [Mass/Vol]on 02-28-2022 MCHC (RBC) [Mass/Vol] 32.9 g/dL 32-36 [facility] Work Phone: No Panel Informationon 02-28 Carbamazepine (Tegretol) Level < 0.5 ug/mL 4.0-12.0 [facility] Work Phone: Estimated GFR (MDRD) Amer 136 mL/min >60 [facility] Work Phone: Comment on above: GFR Calc Estimated GFR (MDRD) Non-Af Amer 113 mL/min >60 [facility] Work Phone: Comment on above: Non- GFR Calc Platelets bldon 02-28-2022 Platelets (Bld) [#/Vol] 208 10*3/uL 150-450 [facility] Work Phone: Serum or plasma albumin kavin urement (mass/volume)on 02-28-2022 Albumin [Mass/Vol] 3.0 g/dL 3.2-5.0 [facility] Work Phone: Serum or plasma albumin/glob ulin mass ratioon 02-28-2022 Albumin/Globulin [Mass ratio] 0.7 {ratio} 0.9-2.4 [facility] Work Phone: Serum or plasma calcium kavin urement (mass/volume)on 02-28-2022 Calcium [Mass/Vol] 9.0 mg/dL 8.5-10.1 [facility] Work Phone: Serum or plasma creatinine m easurement (mass/volume)on 02-28-2022 Creatinine [Mass/Vol] 0.61 mg/dL 0.55-1.02 [facility] Work Phone: Comment on above: The validity of the calculated GFR & GFRAA in patients over 70 years has not been determined. Clinical correlation is essential. Serum or plasma urea nitroge n measurement (mass/volume)on 02-28-2022 Urea nitrogen [Mass/Vol] 16 mg/dL 7-18 [facility] Work Phone: Thin prep Papanicolaou smear with manual screeningon 02-28-2022 Thin prep Papanicolaou smear with manual screening 23 U/L 15-37 [facility] Work Phone: Thin prep Papanicolaou smear with manual screening 7 5-15 [facility] Work Phone: Basophil percentageon 2021 Bilirubin [Mass/Vol] 0.30 mg/dL 0.20-1.00 [facility] Work Phone: Comment on above: For patients on eltr ombopag therapy, use of Dimension [place] TBIL is not recommended. Chloride [Moles/Vol] 112 mmol/L 98-107 [facility] Work Phone: Glucose [Mass/Vol] 95 mg/dL 74-106 [facility] Work Phone: Potassium [Moles/Vol] 3.6 mmol/L 3.5-5.1 [facility] Work Phone: Protein [Mass/Vol] 6.6 g/dL 6.4-8.2 [facility] Work Phone: Sodium [Moles/Vol] 143 mmol/L 136-145 [facility] Work Phone: WBC (Bld) [#/Vol] 5.8 10*3/uL 4.4-11.0 [facility] Work Phone: Blood erythrocytes count (nu mber/volume)on 12-29-2021 RBC (Bld) [#/Vol] 4.57 10*6/uL 4.2-5.4 [facility]: Blood hemoglobin measurement (mass/volume)on 12-29-2021 Hemoglobin (Bld) [Mass/Vol] 13.5 g/dL 12.0-15.0 [facility] Work Phone: Blood platelet mean volumeon 12-29-2021 Platelet mean volume (Bld) [Entitic vol] 12.6 fL 6.2-12.0 [facility] Work Phone: Determination of erythrocyte mean corpuscular volume (MCV)on 12-29-2021 MCV (RBC) [Entitic vol] 93.7 fL 81-99 [facility] Work Phone: Hematocrit Auto (Bld) [Volum e fraction]on 12-29-2021 Hematocrit (Bld) [Volume fraction] 42.8 % 37-47 [facility] Work Phone: Laboratory - Chemistry and C hemistry - challengeon 12-29-2021 ALP [Catalytic activity/Vol] 106 U/L 45-117 [facility] Work Phone: ALT [Catalytic activity/Vol] 30 U/L 13-56 [facility] Work Phone: CO2 [Moles/Vol] 24.0 mmol/L 21.0-32.0 [facility] Work Phone: Globulin (S) [Mass/Vol] 3.7 g/dL 2.2-4.2 [facility] Work Phone: Urea nitrogen/Creatinine [Mass ratio] 21.0 mg/mg 10-20 [facility] Work Phone: Laboratory - Hematology and Cell countson 12-29-2021 Erythrocyte distribution width (RBC) [Entitic vol] 45.9 fL 35.1-43.9 [facility] Work Phone: Erythrocyte distribution width (RBC) [Ratio] 13.3 % 11.6-14.6 [facility] Work Phone: MCH (RBC) [Entitic mass] 29.5 pg 27.0-32.0 [facility] Work Phone: MCHC Auto (RBC) [Mass/Vol]on 12-29-2021 MCHC (RBC) [Mass/Vol] 31.5 g/dL 32-36 [facility] Work Phone: No Panel Informationon 12-29 Estimated GFR (MDRD) Amer 113 mL/min >60 [facility] Work Phone: Comment on above: GFR Calc Estimated GFR (MDRD) Non-Af Amer 93 mL/min >60 [facility] Work Phone: Comment on above: Non- GFR Calc Platelets bldon 12-29-2021 Platelets (Bld) [#/Vol] 241 10*3/uL 150-450 [facility] Work Phone: Serum or plasma albumin kavin urement (mass/volume)on 12-29-2021 Albumin [Mass/Vol] 2.9 g/dL 3.2-5.0 [facility] Work Phone: Serum or plasma albumin/glob ulin mass ratioon 12-29-2021 Albumin/Globulin [Mass ratio] 0.8 {ratio} 0.9-2.4 [facility] Work Phone: Serum or plasma calcium kavin urement (mass/volume)on 12-29-2021 Calcium [Mass/Vol] 8.5 mg/dL 8.5-10.1 [facility] Work Phone: Serum or plasma creatinine m easurement (mass/volume)on 12-29-2021 Creatinine [Mass/Vol] 0.72 mg/dL 0.55-1.02 [facility] Work Phone: Comment on above: The validity of the calculated GFR & GFRAA in patients over 70 years has not been determined. Clinical correlation is essential. Serum or plasma urea nitroge n measurement (mass/volume)on 12-29-2021 Urea nitrogen [Mass/Vol] 15 mg/dL 7-18 [facility] Work Phone: Thin prep Papanicolaou smear with manual screeningon 12-29-2021 Thin prep Papanicolaou smear with manual screening 16 U/L 15-37 [facility] Work Phone: Thin prep Papanicolaou smear with manual screening 7 5-15 [facility] Work Phone: Absolute lymphocyte counton 09-28-2021 Lymphocytes Auto (Unsp spec) [#/Vol] 2.91 10*3/uL 0.83-4.51 [facility] Work Phone: Basophil percentageon 2021 Basophils/100 WBC (Bld) 0.7 % 0-1 [facility] Work Phone: Bilirubin [Mass/Vol] 0.20 mg/dL 0.20-1.00 [facility] Work Phone: Comment on above: For patients on eltr ombopag therapy, use of Dimension [place] TBIL is not recommended. Chloride [Moles/Vol] 111 mmol/L 98-107 [facility] Work Phone: Eosinophils/100 WBC (Bld) 2.8 % 0-5 [facility] Work Phone: Glucose [Mass/Vol] 93 mg/dL 74-106 [facility] Work Phone: Neutrophils (Bld) [#/Vol] 3.5 10*3/uL 2.0-7.7 [facility] Work Phone: Neutrophils/100 WBC (Bld) 49.0 % 47-70 [facility] Work Phone: Potassium [Moles/Vol] 3.7 mmol/L 3.5-5.1 [facility] Work Phone: Protein [Mass/Vol] 7.0 g/dL 6.4-8.2 [facility] Work [facility]: Sodium [Moles/Vol] 139 mmol/L 136-145 [facility] Work Phone: WBC (Bld) [#/Vol] 7.1 10*3/uL 4.4-11.0 [facility] Work Phone: Blood erythrocytes count (nu mber/volume)on 09-28-2021 RBC (Bld) [#/Vol] 4.96 10*6/uL 4.2-5.4 [facility] Work [facility]: Blood hemoglobin measurement (mass/volume)on 09-28-2021 Hemoglobin (Bld) [Mass/Vol] 15.0 g/dL 12.0-15.0 [facility] Work Phone: Blood lymphocytes/100 leukoc yteson 09-28-2021 Lymphocytes/100 WBC (Bld) 40.9 % 19-41 [facility] Work Phone: Blood monocytes/100 leukocyt eson 09-28-2021 Monocytes/100 WBC (Bld) 6.5 % 0-10 [facility] Work Phone: Blood platelet mean volumeon 09-28-2021 Platelet mean volume (Bld) [Entitic vol] 12.3 fL 6.2-12.0 [facility] Work Phone: Determination of erythrocyte mean corpuscular volume (MCV)on 09-28-2021 MCV (RBC) [Entitic vol] 88.5 fL 81-99 [facility] Work Phone: Hematocrit Auto (Bld) [Volum e fraction]on 09-28-2021 Hematocrit (Bld) [Volume fraction] 43.9 % 37-47 [facility] Work Phone: Laboratory - Chemistry and C hemistry - challengeon 09-28-2021 ALP [Catalytic activity/Vol] 130 U/L 45-117 [facility] Work Phone: ALT [Catalytic activity/Vol] 26 U/L 13-56 [facility] Work Phone: CO2 [Moles/Vol] 23.0 mmol/L 21.0-32.0 [facility] Work Phone: Globulin (S) [Mass/Vol] 4.0 g/dL 2.2-4.2 [facility] Work Phone: Urea nitrogen/Creatinine [Mass ratio] 35.9 mg/mg 10-20 [facility] Work Phone: Laboratory - Hematology and Cell countson 09-28-2021 Erythrocyte distribution width (RBC) [Entitic vol] 43.6 fL 35.1-43.9 [facility] Work Phone: Erythrocyte distribution width (RBC) [Ratio] 13.6 % 11.6-14.6 [facility] Work Phone: Immature granulocytes/100 WBC (Bld) 0.100 % 0.0-0.9 [facility] Work Phone: Comment on above: IG% - Immature Granu locytes (promyelocytes, myelocytes and metamyelocytes) > 1% indicates that a LEFT SHIFT is Present. MCH (RBC) [Entitic mass] 30.2 pg 27.0-32.0 [facility] Work Phone: Nucleated RBC/100 WBC (Bld) [Ratio] 0 % 0-5 [facility] Work Phone: MCHC Auto (RBC) [Mass/Vol]on 09-28-2021 MCHC (RBC) [Mass/Vol] 34.2 g/dL 32-36 [facility] Work Phone: No Panel Informationon 09-28 Carbamazepine (Tegretol) Level < 0.5 ug/mL 4.0-12.0 [facility] Work Phone: Estimated GFR (MDRD) Amer 170 mL/min >60 [facility] Work Phone: [phone] Comment on above: GFR Calc Estimated GFR (MDRD) Non-Af Amer 141 mL/min >60 [facility] Work Phone: Comment on above: Non- GFR Calc Platelets bldon 09-28-2021 Platelets (Bld) [#/Vol] 247 10*3/uL 150-450 [facility] Work Phone: Serum or plasma albumin kavin urement (mass/volume)on 09-28-2021 Albumin [Mass/Vol] 3.0 g/dL 3.2-5.0 [facility] Work Phone: Serum or plasma albumin/glob ulin mass ratioon 09-28-2021 Albumin/Globulin [Mass ratio] 0.8 {ratio} 0.9-2.4 [facility] Work Phone: Serum or plasma calcium kavin urement (mass/volume)on 09-28-2021 Calcium [Mass/Vol] 8.6 mg/dL 8.5-10.1 [facility] Work Phone: Serum or plasma creatinine m easurement (mass/volume)on 09-28-2021 Creatinine [Mass/Vol] 0.50 mg/dL 0.55-1.02 [facility] Work Phone: Comment on above: The validity of the calculated GFR & GFRAA in patients over 70 years has not been determined. Clinical correlation is essential. Serum or plasma urea nitroge n measurement (mass/volume)on 09-28-2021 Urea nitrogen [Mass/Vol] 18 mg/dL 7-18 [facility] Work Phone: Thin prep Papanicolaou smear with manual screeningon 09-28-2021 Thin prep Papanicolaou smear with manual screening 11 U/L 15-37 [facility] Work Phone: Thin prep Papanicolaou smear with manual screening 5 5-15 [facility] Work Phone: Basic Metabolic Panelon 12-0 Anion gap [Moles/Vol] 8 mmol/L Normal 3-13 [facility] Comment on above: Performed By: #### B MP3, HEMOG #### [facility] [address], [place] Calcium [Mass/Vol] 9.0 mg/dL Normal 8.4-10.4 [facility] Comment on above: Performed By: #### B MP3, HEMOG #### [facility] [address], [place] CO2 [Moles/Vol] 24 mmol/L Normal 22-30 [facility] Comment on above: Performed By: #### B MP3, HEMOG #### [facility] [address], [place] Creatinine [Mass/Vol] 0.72 mg/dL Normal 0.52-1.25 [facility] Comment on above: Performed By: #### B MP3, HEMOG #### [facility] [address], [place] eGFR OTHER > 90.0 Normal >60 [facility] Comment on above: Result Comment: KDIG O guidelines provide the following GFR categories: Stage GFR(ml/min/1.73 m2) Terms G1 >=90 Normal or high G2 60-89 Mildly decreased* G3a 45-59 Mildly to moderately decreased G3b 30-44 Moderately to severely decreased G4 15-29 Severely decreased G5 <15 Kidney failure *Relative to young adult level. In the absence of evidence of kidney damage, neither GFR category G1 nor G2 fulfill the criteria for CKD. The CKD-EPI equation is validated in individuals 18 years of age and older. Currently the best equation for estimating glomerular filtration rate (GFR) from serum creatinine in children is the Bedside Charles equation. It is less accurate in patients with extremes of muscle mass, restriction of dietary protein, ingestion of creatine, extra-renal metabolism of creatinine, or treatment with medications that affect renal tubular creatinine secretion. Performed By: #### B MP3, HEMOG #### [facility] [address], [place] GFR/1.73 sq M.predicted among blacks MDRD (S/P/Bld) [Vol rate/Area] mL/min/{1.73_m2} Normal >60 [facility] Comment on above: Performed By: #### B MP3, HEMOG #### [facility] [address], [place] Glucose [Mass/Vol] 111 mg/dL High 70-100 [facility] Comment on above: Performed By: #### B MP3, HEMOG #### [facility] [address] [place] [address] Urea nitrogen [Mass/Vol] 18 mg/dL Normal 9-20 [facility] Comment on above: Performed By: #### B MP3, HEMOG #### [facility] [address], [place] Chloride [Moles/Vol] 110 mmol/L High 98-107 [facility] Comment on above: Performed By: #### B MP3, HEMOG #### [facility] [address], [place] Potassium [Moles/Vol] 4.1 mmol/L Normal 3.5-5.1 [facility] Comment on above: Performed By: #### B MP3, HEMOG #### [facility] [address], [place] Sodium [Moles/Vol] 141 mmol/L Normal 135-145 [facility] Comment on above: Performed By: #### B MP3, HEMOG #### [facility] [address], [place] Anion gap [Moles/Vol] 8 mmol/L 3 - 13 mmol/L [facility] Calcium [Mass/Vol] 9.0 mg/dL 8.4 - 10. 4 mg/dL [facility] Chloride [Moles/Vol] 110 mmol/L High 98 - 10 7 mmol/L [facility] CO2 [Moles/Vol] 24 mmol/L 22 - 30 mmol/L [facility] Creatinine [Mass/Vol] 0.72 mg/dL 0.52 - 1.25 mg/dL [facility] EGFR IF NonAfrican Spanish >90.0 >60 mL/min [facility] Comment on above: KDIGO guidelines pro vide the following GFR categories: Stage GFR(ml/min/1.73 m2) Terms G1 >=90 Normal or high G2 60-89 Mildly decreased* G3a 45-59 Mildly to moderately decreased G3b 30-44 Moderately to severely decreased G4 15-29 Severely decreased G5 <15 Kidney failure *Relative to young adult level. In the absence of evidence of kidney damage, neither GFR category G1 nor G2 fulfill the criteria for CKD. The CKD-EPI equation is validated in individuals 18 years of age and older. Currently the best equation for estimating glomerular filtration rate (GFR) from serum creatinine in children is the Bedside Charles equation. It is less accurate in patients with extremes of muscle mass, restriction of dietary protein, ingestion of creatine, extra-renal metabolism of creatinine, or treatment with medications that affect renal tubular creatinine secretion. GFR/1.73 sq M.predicted among blacks MDRD (S/P/Bld) [Vol rate/Area] mL/min/{1.73_m2} >60 mL/min [facility] Glucose [Mass/Vol] 111 mg/dL High 70 - 100 mg/dL [facility] Interpretation and review of laboratory results Abnormal [facility] Potassium [Moles/Vol] 4.1 mmol/L 3.5 - 5.1 mmol/L [facility] Sodium [Moles/Vol] 141 mmol/L 135 - 145 mmol/L [facility] Urea nitrogen (BldV) [Mass/Vol] 18 mg/dL 9 - 20 mg/dL [facility] Test Performed by [address] [facility] COVID-19on 07-03-2021 Interpretation and review of laboratory results Abnormal [facility] SARS-CoV-2 (COVID-19) RNA ELVIS+probe Ql (Unsp spec) Detected Abnormal Not Detected [facility] Comment on above: DETECTED Expected result: Not Detected _ Method: Real-time, RT-PCR Negative results do not preclude SARS-CoV-2 infection and should not be used as the sole basis for treatment or other patient management decisions. This assay was developed by [employer] and distributed under an Emergency Use Authorization (EUA) granted by the FDA for the qualitative detection of SARS-CoV-2 nucleic acid. Provider and patient fact sheets can be found at https://www.fda.gov/media/606915/download and https://www.fda.gov/media/844477/download. [place] [address] [facility] CR Chest Portableon 07-03-20 21 CR Chest Portable Patient Name: DIANA PUGH Diagnostic Radiology ACCESSION EXAM DATE/TIME PROCEDURE ORDERING PROVIDER [id number] 07/03/2021 16:22 EST CR Chest Portable [id number] RAFAT QIU CPT code 46329 Reason For Exam (CR Chest Portable) fall and shoulder pain Report EXAMINATION: XR chest AP. EXAM DATE and TIME: 07/03/2021 4:22 PM EST INDICATION: fall and shoulder pain ADDITIONAL INFORMATION: 45-year-old female status post fall with shoulder plain presents for evaluation COMPARISON: none TECHNIQUE: Frontal view of the chest was obtained. FINDINGS: Lines/support devices: None. Cardiomediastinal silhouette: Within normal limits. Lungs/pleura: No focal consolidation, pleural effusion or pneumothorax. Osseous structures: Degenerative changes of the shoulders are seen. No acute osseous abnormality is demonstrated. Other findings: Cholecystectomy clips project over the right upper quadrant. IMPRESSION: No acute cardiopulmonary abnormality identified. Report Dictated on Final Dictated: 07/03/2021 4:41 pm Dictating Physician: MD ANGEL CHRISTOPHER Signed Date and Time: 07/03/2021 4:43 pm Signed by: MD ANGEL CHRISTOPHER Transcribed Date and Time: 07/03/2021 4:41 Normal [facility] CR Foot Complete 3+ Views [facility] 07-03-2021 CR Foot Complete 3+ Views Right Patient Name: DIANA CALABRESE Diagnostic Radiology ACCESSION EXAM DATE/TIME PROCEDURE ORDERING PROVIDER [id number] 07/03/2021 16:22 EST CR Foot Complete 3+ [id number] RAFAT QIU Views Right CPT code 09631 Reason For Exam (CR Foot Complete 3+ Views Right) R foot pain following a fall Report RIGHT FOOT 3 VIEWS CLINICAL INDICATION: R foot pain following a fall TECHNIQUE: 3 views of the right foot. COMPARISON: None. FINDINGS: Chronic-appearing deformities, including plantar flexion of the foot and flexion configuration of all toes, with associated suboptimal positioning, limited evaluation somewhat. No apparent fracture or dislocation. Degenerative change in the midfoot. Soft tissues grossly unremarkable. IMPRESSION: 1. Limited examination. No apparent, acute osseous abnormality. 2. Degenerative change. Report Dictated on Workstation: CHAR Final Dictated: 07/03/2021 5:09 pm Dictating Physician: MD HICKS WENDELL Signed Date and Time: 07/03/2021 5:12 pm Signed by: MD HICKS WENDELL Transcribed Date and Time: 07/03/2021 5:09 Normal [facility] CR Shoulder 2+ Views Righton 07-03-2021 CR Shoulder 2+ Views Right Patient Name: DIANA CALABRESE Diagnostic Radiology ACCESSION EXAM DATE/TIME PROCEDURE ORDERING PROVIDER [id number] 07/03/2021 16:22 EST CR Shoulder 2+ Views [id number] -RAFAT HANEY Right CPT code 79252 Reason For Exam (CR Shoulder 2+ Views Right) shoulder pain following fall Report EXAMINATION: XR right shoulder. EXAM DATE and TIME: 07/03/2021 4:22 PM EST INDICATION: shoulder pain following fall ADDITIONAL INFORMATION: 45-year-old female status post fall with right shoulder pain presents for evaluation COMPARISON: None TECHNIQUE: AP, Grashey, axillary, and scapular Y views of the right shoulder were obtained. Limitations are present secondary to patient positioning and cooperation with the examination. FINDINGS: No acute fracture or traumatic dislocation is identified. The bones are well-mineralized and the joint spaces are satisfactorily maintained. No focal soft tissue abnormality is demonstrated. IMPRESSION: Limited examination as above. Allowing for this, no acute osseous abnormality identified. Follow-up imaging may be obtained when the patient is able. Report Dictated on Final Dictated: 07/03/2021 5:04 pm Dictating Physician: MD ANGEL CHRISTOPHER Signed Date and Time: 07/03/2021 5:05 pm Signed by: MD ANGEL CHRISTOPHER Transcribed Date and Time: 07/03/2021 5:04 Normal [facility] CT CERVICAL SPINE WO CONTRAS Ton 07-03-2021 Patient Name: DIANA MENEZES Computed Tomography ACCESSION EXAM DATE/TIME PROCEDURE ORDERING PROVIDER [id number] 07/03/2021 16:[address] Spine Cervical w/o [id number] -BLAKE PELAEZ Contrast CPT code 36352 Reason For Exam (CT Spine Cervical w/o Contrast) head injury, cannot clear c spine Report EXAMINATION: CT of the cervical spine without intravenous contrast. EXAM DATE & TIME: 07/03/2021 4:37 PM EST INDICATION: head injury, cannot clear c spine ADDITIONAL INFORMATION: 45-year-old female status post fall presents for evaluation COMPARISON: None LIMITATIONS: None TECHNIQUE: Thin isotropic axial images were obtained from the skull base to the upper thoracic spine without intravenous contrast. Images were reformatted in coronal and sagittal projections using the raw CT data and were interpreted in conjunction with the axial images to render the findings listed below. FINDINGS: Vertebrae: No acute fracture or traumatic malalignment. No aggressive osseous lesions. Multilevel spondylosis is present, including partial fusion of the atlas to the dens. Soft Tissues: No acute abnormality. IMPRESSION: No acute cervical spine fracture or traumatic malalignment. Spondylosis. Report Dictated on --- Final --- Dictated: 07/03/2021 4:58 pm Dictating Physician: MD ANGEL CHRISTOPHER Signed Date and Time: 07/03/2021 5:00 pm Signed by: MD ANGEL CHRISTOPHER Transcribed Date and Time: 07/03/2021 4:58 [facility] Result, Unknown Prov ider - 07/03/2021 Patient Name: DIANA CALABRESE Computed Tomography ACCESSION EXAM DATE/TIME PROCEDURE ORDERING PROVIDER [id number] 07/03/2021 16:[address] Spine Cervical w/o [id number] -BLAKE PELAEZ Contrast CPT code 44117 Reason For Exam (CT Spine Cervical w/o Contrast) head injury, cannot clear c spine Report EXAMINATION: CT of the cervical spine without intravenous contrast. EXAM DATE & TIME: 07/03/2021 4:37 PM EST INDICATION: head injury, cannot clear c spine ADDITIONAL INFORMATION: 45-year-old female status post fall presents for evaluation COMPARISON: None LIMITATIONS: None TECHNIQUE: Thin isotropic axial images were obtained from the skull base to the upper thoracic spine without intravenous contrast. Images were reformatted in coronal and sagittal projections using the raw CT data and were interpreted in conjunction with the axial images to render the findings listed below. FINDINGS: Vertebrae: No acute fracture or traumatic malalignment. No aggressive osseous lesions. Multilevel spondylosis is present, including partial fusion of the atlas to the dens. Soft Tissues: No acute abnormality. IMPRESSION: No acute cervical spine fracture or traumatic malalignment. Spondylosis. Report Dictated on --- Final --- Dictated: 07/03/2021 4:58 pm Dictating Physician: MD ANGEL CHRISTOPHER Signed Date and Time: 07/03/2021 5:00 pm Signed by: MD ANGEL CHRISTOPHER Transcribed Date and Time: 07/03/2021 4:58 [facility] Work Phone: [facility] Work Phone: CT HEAD WO CONTRASTon 2020 [id number] Computed Tomography ACCESSION EXAM DATE/TIME PROCEDURE ORDERING PROVIDER [id number] 07/03/2021 16:[address] Head or Brain w/o [id number] -JUANJOSE PATTON Contrast CPT code 08826 Reason For Exam (CT Head or Brain w/o Contrast) fall, trauma Report EXAMINATION: CT of the head without intravenous contrast. EXAM DATE & TIME: 07/03/2021 4:36 PM EST INDICATION: fall, trauma ADDITIONAL INFORMATION: 45-year-old female status post fall presents for evaluation COMPARISON: CT head dated 07/03/2006 LIMITATIONS: None TECHNIQUE: Thin axial imaging of the head was performed without intravenous contrast. Images were reformatted in coronal and sagittal projections using the raw CT data and were interpreted in conjunction with the axial images to render the findings listed below. FINDINGS: Brain: No mass or acute hemorrhage. No evidence of acute infarct. Large areas of encephalomalacia are present in the bilateral parietal lobes, right greater than left. Small elements of encephalomalacia are present in the bilateral frontal lobes. There is increased prominence of the right sylvian fissure. Multiple osseous fragments are present in the parafalcine region and in the right temporal lobe. Ventricles: Generalized enlargement of the ventricles and sulci is noted without extracerebral collection with mass effect. Skull and orbits: The patient is status post bilateral frontal craniotomies and a left parietal craniectomy with slight anterolateral displacement of the cranioplasty flap by approximately 1.7 cm on series 4, image 53. There is hyperostosis frontalis interna. The orbits and paranasal sinuses are unremarkable in appearance. IMPRESSION: Anterolateral displacement of the left parietal cranioplasty flap as described. No evidence of acute hemorrhage or infarction. CRITICAL TEST RESULT COMMUNICATION: The findings were discussed with Dr. Haney on 07/03/21 at 4:56 PM. Computed Tomography Report Report Dictated on --- Final --- Dictated: 07/03/2021 4:45 pm Dictating Physician: MD ANGEL CHRISTOPHER Signed Date and Time: 07/03/2021 4:57 pm Signed by: MD ANGEL CHRISTOPHER Transcribed Date and Time: 07/03/2021 4:45 [facility] Result, Unknown Prov ider - 07/03/2021 Patient Name: [facility] CALABRESE [facility] [id number] Computed Tomography ACCESSION EXAM DATE/TIME PROCEDURE ORDERING PROVIDER [id number] 07/03/2021 16:[address] Head or Brain w/o 035668 -JUANJOSE PATTON Contrast CPT code 11574 Reason For Exam (CT Head or Brain w/o Contrast) fall, trauma Report EXAMINATION: CT of the head without intravenous contrast. EXAM DATE & TIME: 07/03/2021 4:36 PM EST INDICATION: fall, trauma ADDITIONAL INFORMATION: 45-year-old female status post fall presents for evaluation COMPARISON: CT head dated 07/03/2006 LIMITATIONS: None TECHNIQUE: Thin axial imaging of the head was performed without intravenous contrast. Images were reformatted in coronal and sagittal projections using the raw CT data and were interpreted in conjunction with the axial images to render the findings listed below. FINDINGS: Brain: No mass or acute hemorrhage. No evidence of acute infarct. Large areas of encephalomalacia are present in the bilateral parietal lobes, right greater than left. Small elements of encephalomalacia are present in the bilateral frontal lobes. There is increased prominence of the right sylvian fissure. Multiple osseous fragments are present in the parafalcine region and in the right temporal lobe. Ventricles: Generalized enlargement of the ventricles and sulci is noted without extracerebral collection with mass effect. Skull and orbits: The patient is status post bilateral frontal craniotomies and a left parietal craniectomy with slight anterolateral displacement of the cranioplasty flap by approximately 1.7 cm on series 4, image 53. There is hyperostosis frontalis interna. The orbits and paranasal sinuses are unremarkable in appearance. IMPRESSION: Anterolateral displacement of the left parietal cranioplasty flap as described. No evidence of acute hemorrhage or infarction. CRITICAL TEST RESULT COMMUNICATION: The findings were discussed with Dr. Haney on 07/03/21 at 4:56 PM. Computed Tomography Report Report Dictated on --- Final --- Dictated: 07/03/2021 4:45 pm Dictating Physician: MD ANGEL CHRISTOPHER Signed Date and Time: 07/03/2021 4:57 pm Signed by: MD ANGEL CHRISTOPHER Transcribed Date and Time: 07/03/2021 4:45 [facility] Work Phone: [facility] Work Phone: CT Head or Brain w/o Contras ton 07-03-2021 CT Head or Brain w/o Contrast Patient Name: DIA[facility] CALABRESE [facility] [id number] Computed Tomography ACCESSION EXAM DATE/TIME PROCEDURE ORDERING PROVIDER [id number] 07/03/2021 16:[address] Head or Brain w/o 031982 -JUANJOSE PATTON Contrast CPT code 02074 Reason For Exam (CT Head or Brain w/o Contrast) fall, trauma Report EXAMINATION: CT of the head without intravenous contrast. EXAM DATE and TIME: 07/03/2021 4:36 PM EST INDICATION: fall, trauma ADDITIONAL INFORMATION: 45-year-old female status post fall presents for evaluation COMPARISON: CT head dated 07/03/2006 LIMITATIONS: None TECHNIQUE: Thin axial imaging of the head was performed without intravenous contrast. Images were reformatted in coronal and sagittal projections using the raw CT data and were interpreted in conjunction with the axial images to render the findings listed below. FINDINGS: Brain: No mass or acute hemorrhage. No evidence of acute infarct. Large areas of encephalomalacia are present in the bilateral parietal lobes, right greater than left. Small elements of encephalomalacia are present in the bilateral frontal lobes. There is increased prominence of the right sylvian fissure. Multiple osseous fragments are present in the parafalcine region and in the right temporal lobe. Ventricles: Generalized enlargement of the ventricles and sulci is noted without extracerebral collection with mass effect. Skull and orbits: The patient is status post bilateral frontal craniotomies and a left parietal craniectomy with slight anterolateral displacement of the cranioplasty flap by approximately 1.7 cm on series 4, image 53. There is hyperostosis frontalis interna. The orbits and paranasal sinuses are unremarkable in appearance. IMPRESSION: Anterolateral displacement of the left parietal cranioplasty flap as described. No evidence of acute hemorrhage or infarction. CRITICAL TEST RESULT COMMUNICATION: The findings were discussed with Dr. Haney on 07/03/21 at 4:56 PM. Computed Tomography Report Report Dictated on Final Dictated: 07/03/2021 4:45 pm Dictating Physician: MD ANGEL CHRISTOPHER Signed Date and Time: 07/03/2021 4:57 pm Signed by: MD ANGEL CHRISTOPHER Transcribed Date and Time: 07/03/2021 4:45 Normal [facility] CT Spine Cervical w/o Contra ston 07-03-2021 CT Spine Cervical w/o Contrast Patient Name: DIANA CALABRESE Computed Tomography ACCESSION EXAM DATE/TIME PROCEDURE ORDERING PROVIDER [id number] 07/03/2021 16:[address] Spine Cervical w/o [id number] -BLAKE PELAEZ Contrast CPT code 84652 Reason For Exam (CT Spine Cervical w/o Contrast) head injury, cannot clear c spine Report EXAMINATION: CT of the cervical spine without intravenous contrast. EXAM DATE and TIME: 07/03/2021 4:37 PM EST INDICATION: head injury, cannot clear c spine ADDITIONAL INFORMATION: 45-year-old female status post fall presents for evaluation COMPARISON: None LIMITATIONS: None TECHNIQUE: Thin isotropic axial images were obtained from the skull base to the upper thoracic spine without intravenous contrast. Images were reformatted in coronal and sagittal projections using the raw CT data and were interpreted in conjunction with the axial images to render the findings listed below. FINDINGS: Vertebrae: No acute fracture or traumatic malalignment. No aggressive osseous lesions. Multilevel spondylosis is present, including partial fusion of the atlas to the dens. Soft Tissues: No acute abnormality. IMPRESSION: No acute cervical spine fracture or traumatic malalignment. Spondylosis. Report Dictated on Final Dictated: 07/03/2021 4:58 pm Dictating Physician: MD ANGEL CHRISTOPHER Signed Date and Time: 07/03/2021 5:00 pm Signed by: MD ANGEL CHRISTOPHER Transcribed Date and Time: 07/03/2021 4:58 Normal [facility] ED [facility] Patient: Diana Calabrese : 1975 Date of Evaluation: 07/03/2021 ED Resident Provider: Rafat Haney MD ED care was supervised by Dr. Patton who independently examined and evaluated the patient. Please see their attestation note for further details. Chief Complaint Chief Complaint Patient presents with ? Fall Per EMS, patient fell out of bed 3ft, from correction, has laceration to back of head, arrives with C-collar. ? Laceration LIME I was wearing a surgical mask for the entirety of this encounter. Does this patient come from an ECF, SNF, Rehab, [facility] or other Congregate setting: Yes (If yes to above patient needs a Covid-19 test) Diana Calabrese is a 45 y.o. quadripilegic female who presents to the emergency department due to a fall at correction from a bed about 3 1/2 feet witnessed by medical csr that was helping take care of her. PMHx significant for quadriplegia following previous TBI. Complaining of pain in the back of her head, in her R shoulder/clavicle and R foot. Patient unable to give detailed history due to pain and baseline functional status. ROS: Review of Systems Unable to perform ROS: Other Musculoskeletal: Positive for arthralgias. Patient unable to respond to complete ROS due to baseline functional status Past History Past Medical History: Diagnosis Date ? Abnormal uterine bleeding 07/19/2017 ? Alzheimer's dementia (HCC) ? Anemia ? Anxiety ? Bipolar 1 disorder (HCC) ? Cholecystitis with cholelithiasis SCHEDULED FOR SURGERY TOT (11/03/2016) ? Constipated ? Dementia (HCC) ? Dysarthria ? Dysphagia ? Elevated liver enzymes ? Epilepsy (HCC) ? H/O urinary tract infection ? High blood cholesterol ? Hypertension ? Insomnia ? Joint pain ? Major depression ? Migraine ? Mononeuropathy ? Neuromuscular dysfunction of bladder ? Other migraine, not intractable, with status migrainosus ? Personal history of traumatic brain injury ? Pseudobulbar affect ? PTSD (post-traumatic stress disorder) ? Quadriplegia (HCC) ? Quadriplegia, unspecified (HCC) ? Urine retention ? Vitamin D deficiency Past Surgical History: Procedure Laterality Date ? CHOLECYSTECTOMY, LAPAROSCOPIC 11/03/2016 ? TRACHEOSTOMY Social History Socioeconomic History ? Marital status: Single Spouse name: None ? Number of children: None ? Years of education: None ? Highest education level: None Occupational History ? None Tobacco Use ? Smoking status: Former Smoker ? Smokeless tobacco: Never Used Substance and Sexual Activity ? Alcohol use: No ? Drug use: No ? Sexual activity: None Other Topics Concern ? None Social History Narrative ? None Social Determinants of Health Financial Resource Strain: ? Difficulty of Paying Living Expenses: Not on file Food Insecurity: ? Worried About Running Out of Food in the Last Year: Not on file ? Ran Out of Food in the Last Year: Not on file Transportation Needs: ? Lack of Transportation (Medical): Not on file ? Lack of Transportation (Non-Medical): Not on file Physical Activity: ? Days of Exercise per Week: Not on file ? Minutes of Exercise per Session: Not on file Stress: ? Feeling of Stress : Not on file Social Connections: ? Frequency of Communication with Friends and Family: Not on file ? Frequency of Social Gatherings with Friends and Family: Not on file ? Attends Yazidi Services: Not on file ? Active Member of Clubs or Organizations: Not on file ? Attends Club or Organization Meetings: Not on file ? Marital Status: Not on file Intimate Partner Violence: ? Fear of Current or Ex-Partner: Not on file ? Emotionally Abused: Not on file ? Physically Abused: Not on file ? Sexually Abused: Not on file Housing Stability: ? Unable to Pay for Housing in the Last Year: Not on file ? Number of Places Lived in the Last Year: Not on file ? Unstable Housing in the Last Year: Not on file Medications/Allergies Current Discharge Medication List CONTINUE these medications which have NOT CHANGED Details bisacodyl (DULCOLAX) 5 MG EC tablet Take 5 mg by mouth daily as needed for Constipation tamsulosin (FLOMAX) 0.4 MG capsule Take 0.4 mg by mouth daily ibuprofen (ADVIL;MOTRIN) 200 MG tablet Take 200 mg by mouth every 8 hours as needed for Pain !! Carboxymethylcellulose Sodium (ARTIFICIAL TEARS OP) Apply 3 drops to eye every 8 hours as needed (both eyes) naphazoline-pheniramine (VISINE-A) 0.025-0.3 % ophthalmic solution 1 drop 3 times daily as needed cetirizine (ZYRTEC) 10 MG tablet Take 10 mg by mouth daily dextromethorphan-quiNIDine (NUEDEXTA) 20-10 MG CAPS per capsule 1 capsule omeprazole (PRILOSEC) 20 MG delayed release capsule Take 1 capsule by mouth daily Qty: 30 capsule, Refills: 0 acetaminophen (TYLENOL) 325 MG tablet Take 650 mg by mouth every 6 hours as (more content not included)... Normal [facility] ED Provider Note Emergency Department Encounter [facility] EMERGENCY DEPT Patient: Diana Calabrese : 1975 Date of Evaluation: 07/03/2021 ED Supervising Physician: Juanjose Patton MD I independently examined and evaluated Diana Calabrese. In brief, Diana Calabrese is a 45 y.o. female that presents to the emergency department for evaluation after fall at correction. Focused exam: Awake and alert, no acute distress, hemodynamically stable. Normocephalic, atraumatic. Trachea midline. Breathing comfortably on room air. Breath sounds are clear to auscultation bilaterally. Regular rate and rhythm. Abdomen is soft, nondistended, nontender. No rebound or guarding. The patient moves all extremities equally. Distal pulses are intact and equal bilaterally. Posterior scalp laceration. Brief ED course/MDM: Patient presented after a fall at correction. Imaging reveals no acute traumatic injury. There was a questionable read of displacement of previous cranioplasty that was discussed with neurosurgery and deemed to require no intervention. The patient is stable for transfer back to sending facility. Discussed treatment plan, follow-up plan, and return precautions at bedside. Total critical care time today provided was at least 0 minutes. All diagnostic, treatment, and disposition decisions were made by myself in conjunction with the Resident. I also supervised ludwig portions of any procedures performed by the Resident. For all further details of the patient's emergency department visit, please see their documentation. (Please note that portions of this note may have been completed with a voice recognition program. Efforts were made to edit the dictations but occasionally words are mis-transcribed.) Juanjose Patton MD Acute Care [facility] Juanjose Patton MD 07/19/21 0821 Normal [facility] Hemogramon 07-03-2021 Erythrocyte distribution width (RBC) [Ratio] 13.8 % Normal 11.5-14.5 [facility] Comment on above: Performed By: #### B MP3, HEMOG #### [facility] [address], [place] Hematocrit (Bld) [Volume fraction] 45.3 % Normal 35.0-47.0 [facility] Comment on above: Performed By: #### B MP3, HEMOG #### [facility] [address], [place] Hemoglobin (Bld) [Mass/Vol] 14.9 g/dL Normal 11.7-16.0 [facility] Comment on above: Performed By: #### B MP3, HEMOG #### [facility] [address], [place] MCH (RBC) [Entitic mass] 29.8 pg Normal 26.0-34.0 [facility] Comment on above: Performed By: #### B MP3, HEMOG #### [facility] [address], [place] MCHC 32.9 % Normal 32.0-36.0 [facility] Comment on above: Performed By: #### B MP3, HEMOG #### [facility] [address], [place] MCV (RBC) [Entitic vol] 90.6 fL Normal 79.0-98.0 [facility] Comment on above: Performed By: #### B MP3, HEMOG #### [facility] [address], [place] Platelet mean volume (Bld) [Entitic vol] 10.5 fL High 7.4-10.4 [facility] Comment on above: Performed By: #### B MP3, HEMOG #### [place] [address] [place], [place] Platelets (Bld) [#/Vol] 220 10*3/uL Normal 140-440 [facility] Comment on above: Performed By: #### B MP3, HEMOG #### [place] [address] [place], [place] RBC (Bld) [#/Vol] 5.00 10*6/uL Normal 3.80-5.20 [facility] Comment on above: Performed By: #### B MP3, HEMOG #### [place] [address] [place], [place] WBC (Bld) [#/Vol] 7.6 10*3/uL Normal 3.6-10.7 [facility] Comment on above: Performed By: #### B MP3, HEMOG #### [place] [address] [place], [place] Hemogram (CBC)on 07-03-2021 Hematocrit (Bld) [Volume fraction] 45.3 % 35.0 - 47.0 % [facility] Hemoglobin.gastrointes tinal spec 1 Ql (Stl) 14.9 g/dL 11.7 - 16.0 g/dL [facility] Interpretation and review of laboratory results Abnormal [facility] MCH (RBC) [Entitic mass] 29.8 pg 26.0 - 34.0 pg [facility] MCHC (RBC) [Mass/Vol] 32.9 % 32.0 - 36.0 % [facility] MCV (RBC) [Entitic vol] 90.6 fL 79.0 - 98.0 fL [facility] Platelet distribution width (Bld) [Ratio] 13.8 % 11.5 - 14.5 % [facility] Platelet mean volume (Bld) [Entitic vol] 10.5 fL High 7.4 - 10.4 fL [facility] Platelets (Bld) [#/Vol] 220 10*3/uL 140 - 440 10*3/uL [facility] RBC (Bld) [#/Vol] 5.00 10*6/uL 3.80 - 5.20 10*6/uL [facility] WBC (Bld) [#/Vol] 7.6 10*3/uL 3.6 - 10.7 10*3/uL [facility] Test Performed by [address] [facility] No Panel Informationon 07-03 Radiology Study observation (narrative) [facility] Work Phone: Radiology Study observation (narrative) [facility] Work Phone: [id number] 07-03-2021 SARS-CoV-2 (COVID-19) RNA ELVIS+probe Ql (Unsp spec) SARS-CoV-2 --> Status: F DETECTED Expected result: Not Detected _ Method: Real-time, RT-PCR Negative results do not preclude SARS-CoV-2 infection and should not be used as the sole basis for treatment or other patient management decisions. This assay was developed by [employer] and distributed under an Emergency Use Authorization (EUA) granted by the FDA for the qualitative detection of SARS-CoV-2 nucleic acid. Provider and patient fact sheets can be found at https://www.fda.gov/media/ 52621/download and https://www.fda.gov/media/ 55954/download. Expected result: Not Detected _ Method: Real-time, RT-PCR Negative results do not preclude SARS-CoV-2 infection and should not be used as the sole basis for treatment or other patient management decisions. This assay was developed by [employer] and distributed under an Emergency Use Authorization (EUA) granted by the FDA for the qualitative detection of SARS-CoV-2 nucleic acid. Provider and patient fact sheets can be found at https://www.fda.gov/media/1 66496/download and https://www.fda.gov/media/1 49961/download. Abnormal [facility] Comment on above: Performed By: #### C OVID #### [facility] [address] [place] [address] XR CHEST PORTABLEon 07-03-20 Patient Name: DIANA PUGH Diagnostic Radiology ACCESSION EXAM DATE/TIME PROCEDURE ORDERING PROVIDER [id number] 07/03/2021 16:22 EST CR Chest Portable T[place] RAFAT QIU CPT code 45807 Reason For Exam (CR Chest Portable) fall and shoulder pain Report EXAMINATION: XR chest AP. EXAM DATE & TIME: 07/03/2021 4:22 PM EST INDICATION: fall and shoulder pain ADDITIONAL INFORMATION: 45-year-old female status post fall with shoulder plain presents for evaluation COMPARISON: none TECHNIQUE: Frontal view of the chest was obtained. FINDINGS: Lines/support devices: None. Cardiomediastinal silhouette: Within normal limits. Lungs/pleura: No focal consolidation, pleural effusion or pneumothorax. Osseous structures: Degenerative changes of the shoulders are seen. No acute osseous abnormality is demonstrated. Other findings: Cholecystectomy clips project over the right upper quadrant. IMPRESSION: No acute cardiopulmonary abnormality identified. Report Dictated on --- Final --- Dictated: 07/03/2021 4:41 pm Dictating Physician: MD ANGEL CHRISTOPHER Signed Date and Time: 07/03/2021 4:43 pm Signed by: MD ANGEL CHRISTOPHER Transcribed Date and Time: 07/03/2021 4:41 [facility] Result, Unknown Prov ider - 07/03/2021 Patient Name: DIANA CALABRESE Diagnostic Radiology ACCESSION EXAM DATE/TIME PROCEDURE ORDERING PROVIDER [id number] 07/03/2021 16:22 EST CR Chest Portable [id number] CARLSON CPT code 51531 Reason For Exam (CR Chest Portable) fall and shoulder pain Report EXAMINATION: XR chest AP. EXAM DATE & TIME: 07/03/2021 4:22 PM EST INDICATION: fall and shoulder pain ADDITIONAL INFORMATION: 45-year-old female status post fall with shoulder plain presents for evaluation COMPARISON: none TECHNIQUE: Frontal view of the chest was obtained. FINDINGS: Lines/support devices: None. Cardiomediastinal silhouette: Within normal limits. Lungs/pleura: No focal consolidation, pleural effusion or pneumothorax. Osseous structures: Degenerative changes of the shoulders are seen. No acute osseous abnormality is demonstrated. Other findings: Cholecystectomy clips project over the right upper quadrant. IMPRESSION: No acute cardiopulmonary abnormality identified. Report Dictated on --- Final --- Dictated: 07/03/2021 4:41 pm Dictating Physician: MD ANGEL CHRISTOPHER Signed Date and Time: 07/03/2021 4:43 pm Signed by: MD ANGEL CHRISTOPHER Transcribed Date and Time: 07/03/2021 4:41 [facility] Work Phone: XR CHEST PORTABLEOrdered By: Unknown Result on 07-03-2021 [facility] XR FOOT RIGHT (MIN 3 VIEWS)o n 07-03-2021 Patient Name: [id number] Diagnostic Radiology ACCESSION EXAM DATE/TIME PROCEDURE ORDERING PROVIDER [id number] 07/03/2021 16:22 EST CR Foot Complete 3+ [id number] -RAFAT HANEY Views Right CPT code 92359 Reason For Exam (CR Foot Complete 3+ Views Right) R foot pain following a fall Report RIGHT FOOT 3 VIEWS CLINICAL INDICATION: R foot pain following a fall TECHNIQUE: 3 views of the right foot. COMPARISON: None. FINDINGS: Chronic-appearing deformities, including plantar flexion of the foot and flexion configuration of all toes, with associated suboptimal positioning, limited evaluation somewhat. No apparent fracture or dislocation. Degenerative change in the midfoot. Soft tissues grossly unremarkable. IMPRESSION: 1. Limited examination. No apparent, acute osseous abnormality. 2. Degenerative change. Report Dictated on Workstation: CHAR --- Final --- Dictated: 07/03/2021 5:09 pm Dictating Physician: MD HICKS WENDELL Signed Date and Time: 07/03/2021 5:12 pm Signed by: MD HICKS WENDELL Transcribed Date and Time: 07/03/2021 5:09 [facility] Zak Hicks MD - 07/03/2021 Patient Name: DIANA CALABRESE Diagnostic Radiology ACCESSION EXAM DATE/TIME PROCEDURE ORDERING PROVIDER [id number] 07/03/2021 16:22 EST CR Foot Complete 3+ [id number] -LYNDON, RAFAT Views Right CPT code 48466 Reason For Exam (CR Foot Complete 3+ Views Right) R foot pain following a fall Report RIGHT FOOT 3 VIEWS CLINICAL INDICATION: R foot pain following a fall TECHNIQUE: 3 views of the right foot. COMPARISON: None. FINDINGS: Chronic-appearing deformities, including plantar flexion of the foot and flexion configuration of all toes, with associated suboptimal positioning, limited evaluation somewhat. No apparent fracture or dislocation. Degenerative change in the midfoot. Soft tissues grossly unremarkable. IMPRESSION: 1. Limited examination. No apparent, acute osseous abnormality. 2. Degenerative change. Report Dictated on Workstation: CHAR --- Final --- Dictated: 07/03/2021 5:09 pm Dictating Physician: MD HICKS WENDELL Signed Date and Time: 07/03/2021 5:12 pm Signed by: MD HICKS WENDELL Transcribed Date and Time: 07/03/2021 5:09 [facility] Work Phone: XR FOOT RIGHT (MIN 3 VIEWS)O rdered By: Zak Hicks on 07-03-2021 [facility] Work Phone: XR Shoulder Right 2 VWon Patient Name: DIANA PUGH Diagnostic Radiology ACCESSION EXAM DATE/TIME PROCEDURE ORDERING PROVIDER [id number] 07/03/2021 16:22 EST CR Shoulder 2+ Views [id number] -RAFAT HANEY Right CPT code 70021 Reason For Exam (CR Shoulder 2+ Views Right) shoulder pain following fall Report EXAMINATION: XR right shoulder. EXAM DATE & TIME: 07/03/2021 4:22 PM EST INDICATION: shoulder pain following fall ADDITIONAL INFORMATION: 45-year-old female status post fall with right shoulder pain presents for evaluation COMPARISON: None TECHNIQUE: AP, Grashey, axillary, and scapular Y views of the right shoulder were obtained. Limitations are present secondary to patient positioning and cooperation with the examination. FINDINGS: No acute fracture or traumatic dislocation is identified. The bones are well-mineralized and the joint spaces are satisfactorily maintained. No focal soft tissue abnormality is demonstrated. IMPRESSION: Limited examination as above. Allowing for this, no acute osseous abnormality identified. Follow-up imaging may be obtained when the patient is able. Report Dictated on --- Final --- Dictated: 07/03/2021 5:04 pm Dictating Physician: MD ANGEL CHRISTOPHER Signed Date and Time: 07/03/2021 5:05 pm Signed by: MD ANGEL CHRISTOPHER Transcribed Date and Time: 07/03/2021 5:04 [facility] RAD Result, Unknown Prov ider - 07/03/2021 Patient Name: DIANA CALABRESE Diagnostic Radiology ACCESSION EXAM DATE/TIME PROCEDURE ORDERING PROVIDER [id number] 07/03/2021 16:22 EST CR Shoulder 2+ Views [id number] -RAFAT HANEY Right CPT code 95065 Reason For Exam (CR Shoulder 2+ Views Right) shoulder pain following fall Report EXAMINATION: XR right shoulder. EXAM DATE & TIME: 07/03/2021 4:22 PM EST INDICATION: shoulder pain following fall ADDITIONAL INFORMATION: 45-year-old female status post fall with right shoulder pain presents for evaluation COMPARISON: None TECHNIQUE: AP, Grashey, axillary, and scapular Y views of the right shoulder were obtained. Limitations are present secondary to patient positioning and cooperation with the examination. FINDINGS: No acute fracture or traumatic dislocation is identified. The bones are well-mineralized and the joint spaces are satisfactorily maintained. No focal soft tissue abnormality is demonstrated. IMPRESSION: Limited examination as above. Allowing for this, no acute osseous abnormality identified. Follow-up imaging may be obtained when the patient is able. Report Dictated on --- Final --- Dictated: 07/03/2021 5:04 pm Dictating Physician: MD ANGEL CHRISTOPHER Signed Date and Time: 07/03/2021 5:05 pm Signed by: MD ANGEL CHRISTOPHER Transcribed Date and Time: 07/03/2021 5:04 [facility] Work Phone: [facility] Work Phone: ELASTOGRAPHY WITH IMAGINGon 05-21-2018 ELASTOGRAPHY WITH IMAGING US ABDOMEN LIMITED, ELASTOGRAPHY WITH IMAGINGOrdering Physician: Maurice Rutledge05/21/2018 1:30 PMULTRASOUND ABDOMEN LIMITED AND ELASTOGRAPHYClinical Statement: Elevated liver enzymesCOMPARISON: NoneFINDINGS: The pancreatic tail is obscured by bowel gas. Remainingpancreas is visualized segmentally and is not enlarged.The liver is visualized intercostally. There is no enlargement mass orduct dilatation. There is mild increased parenchymal echogenicitywhich can be seen with steatosis and or changes of chronic liverdisease.There is either gas within the gastric antrum versus incompletevisualization of the gallbladder containing a large calculus. Thepatient's caregiver cannot inform us if the patient still has hergallbladder.Common duct is upper normal caliber at 6 mm. The spleen is notenlarged.Elastography evaluation is limited due to intercostal scanning andlimited sonographic windowARFI median: 2.23 M/secIQR - 0.15IQR/median ratio equals 0.07 (must be 0.3 or less to ensure technicaladequacy)Optimal cutoffs for ARFI:Greater than or equal to F1 - 1.02 M/sec n/aGreater than or equal to F2 - 1.34 M/sec 5.7 kPaGreater than or equal to F3 - 1.55 M/sec 7.3 kPaGreater than or equal to F4 - 1.8 M/sec 10.0 kPaIMPRESSION:Limited study due to patient's clinical condition.Mild fatty metamorphosis of the visualized liver.Either incomplete visualization of the gallbladder containing a largecalculus versus lack of visualization of the gallbladder and imaging aportion of the stomach. Elastography score F4 indicating significant fibrosis. The accuracy isquestioned as noted above.---- Electronic Signature on File ----Signed By: Aayush Duran [email or web address]: 05/21/2018 2:03 PMSigned: 05/21/2018 2:15 PM Reported By: AAYUSH DURAN M.D. Signed By: AAYUSH DURAN M.D. [facility] US ABDOMEN LIMITEDon 018 US ABDOMEN LIMITED US ABDOMEN LIMITED, ELASTOGRAPHY WITH IMAGINGOrdering Physician: Maurice Rutledge05/21/2018 1:30 PMULTRASOUND ABDOMEN LIMITED AND ELASTOGRAPHYClinical Statement: Elevated liver enzymesCOMPARISON: NoneFINDINGS: The pancreatic tail is obscured by bowel gas. Remainingpancreas is visualized segmentally and is not enlarged.The liver is visualized intercostally. There is no enlargement mass orduct dilatation. There is mild increased parenchymal echogenicitywhich can be seen with steatosis and or changes of chronic liverdisease.There is either gas within the gastric antrum versus incompletevisualization of the gallbladder containing a large calculus. Thepatient's caregiver cannot inform us if the patient still has hergallbladder.Common duct is upper normal caliber at 6 mm. The spleen is notenlarged.Elastography evaluation is limited due to intercostal scanning andlimited sonographic windowARFI median: 2.23 M/secIQR - 0.15IQR/median ratio equals 0.07 (must be 0.3 or less to ensure technicaladequacy)Optimal cutoffs for ARFI:Greater than or equal to F1 - 1.02 M/sec n/aGreater than or equal to F2 - 1.34 M/sec 5.7 kPaGreater than or equal to F3 - 1.55 M/sec 7.3 kPaGreater than or equal to F4 - 1.8 M/sec 10.0 kPaIMPRESSION:Limited study due to patient's clinical condition.Mild fatty metamorphosis of the visualized liver.Either incomplete visualization of the gallbladder containing a largecalculus versus lack of visualization of the gallbladder and imaging aportion of the stomach. Elastography score F4 indicating significant fibrosis. The accuracy isquestioned as noted above.---- Electronic Signature on File ----Signed By: Aayush Duran [email or web address]: 05/21/2018 2:03 PMSigned: 05/21/2018 2:15 PM Reported By: AAYUSH DURAN M.D. Signed By: AAYUSH DURAN M.D. [facility] ANES Katiana 08-23-2017 ANES POST HNO ID: [id number] thor: Desmond MarteService: AnesthesiologyAuthor Type: AnesthesiologistType: Anesthesia PostOpFiled: 08/23/2017 3:23 PMNote Text:POST ANESTHESIA EVALUATION NOTESERVICE DATE: 08/23/2017SERVICE TIME: 1430DOB: 1975Vitals: 08/23/1812Temp: 37.7 ?C (99.9 ?F) 37 ?C (98.6 ?F) 08/23/1813BP: 108/73 103/67 106/70 105/72 08/23/1813Pulse: 73 73 79 75 08/23/1813Resp: 16 16 17 16 08/23/1813SpO2: 97% 94% 93% 95%Validated Vital Signs: YESNo apparent anesthetic complications. The patient is appropriatelyhydrated with stable respiratory and cardiovascular status. Patient hassafe and adequate airway control. The patient has appropriate pain reliefand no significant post operative nausea or vomiting. The patient hasachieved baseline mental status.Further assessment by Anesthesia Service: NoneOther Remarks:SIGNATURE: Desmond Marte MD PATIENT NAME: Diana CalabreseDATE: August 23, 2017 : 3:23 PM PAGER/CONTACT #: [phone] [facility] ANES PREOPon 08-23-2017 ANES PREOP HNO ID: [id number] thor: Desmond EstuardoService: AnesthesiologyAuthor Type: AnesthesiologistType: Anesthesia PreOpFiled: 08/23/2017 11:35 AMNote Text: ANESTHESIOLOGY DAY OF SURGERY NOTESERVICE DATE: 08/23/2017SERVICE TIME: 11:30 AMDOB: 1975Procedure(s) (LRB):HYSTEROSCOPY WITH ENDOMETRIAL ABLATION (N/A)DILATION AND CURETTAGE (N/A)Surgeon(s):Elvre Miller is no height or weight on file to calculate BMI.Most recent hematocrit and potassium results:No results found for this basename: HCT,HEMATOCRIT,K,POTASSIUMA WALLY DOS/PREOP NOTE:Vitals:There were no vitals filed for this visit.QuadriplegicHTNHLDDem entiaBipolarDysphagiaDepres sionSocial History:Social HistorySubstance Use Topics- Smoking status: Not on file- Smokeless tobacco: Not on file- Alcohol use Not on fileNo current facility-administered medications on file prior to encounter.No current outpatient prescriptions on file prior to encounter.Current Facility-Administered Medications:0.9% NaCl 2-10 mL 2-10 mL INTRAVENOUS q 12 H Elver Nguyenergies:ALLERGIESAl lergen Reactions- Latex Swelling- Morphine Swelling- Pineapple SwellingDOS EXAM: Adequate NPO Status: YesAnesthetic Risks, Benefits, Alternatives, Personnel and Consent Discussed:No, POA not presentPatient agrees to proceed: Yes per POAPrevious Anesthesia: No history of adverse eventAirway Assessment: MP 2; Neck ROM: Full ROM without neurologic symptoms;Airway Evaluation: No significant abnormalitiesSymptoms of Sleep Apnea: NoneDentition: Teeth intactAdditional Physical Exam:Lungs: Patient health status unchanged since recent history and physical.See history and physical for exam findings.Cardiac: Patient health status unchanged since recent history andphysical. See history and physical for exam findings.Additional Pertinent Findings: N/ABlood Products: Not anticipated for this procedureAnesthetic Plan: GeneralAnesthetic Monitoring: Standard ASA MonitorsPain Management Plan: Parenteral or OralASA Class: 4Other Medical Problems: quadriplegicChronic Beta David medication administered within 24 hours: N/AI have interviewed and examined the patient. I have reviewed the medicalrecord and/or the pre-anesthesia evaluation, pertinent labs, and testresults.Significant changes in the patient's condition since the History andPhysical, not otherwise documented in primary service progress notes: NoThis contains updated information obtained within 48 hours ofSurgery/Procedure.SIGNATU RE: Desmond Marte MD PATIENT NAME: Diana CalabreseDATE: August 23, 2017 : 11:30 AM CSN: [id number] [facility] BRIEF OP NOTon 08-23-2017 BRIEF OP NOT HNO ID: [id number] thor: Elver Correiaervice: GynecologyAuthor Type: PhysicianType: Brief Op NoteFiled: 08/23/2017 1:31 PMNote Text:Pre-op dx: menorragiaPost-op dx: sameSurgery: hysteroscopy, DANDC, Chrissy endometrial ablationSurgeon: Elver QuinonesAnesthesia: generalEBL: 0 [facility] HISTORY PHYSICALon 8 HISTORY PHYSICAL HNO ID: [id number] thor: Elver Correiaervice: GynecologyAuthor Type: PhysicianType: HANDPFiled: 08/25/2017 7:27 AMNote Text:[facility]- Surgical History and Physical PUNEET CALABRESE: 1975 AGE: 41 SEX: FMRN: [id number] ACCTNUM: [id number] [facility] LOCATION: [address] PHYSICIAN: Elver Quinones M.D.ADMIT DATE: 08/23/2017PREOPERATIVE DIAGNOSIS: Abnormal uterine bleeding, spastic quadriplegia.HISTORY: The patient is a 41-year-old, white female, who was presented tothe office from a correction for evaluation and treatment of abnormaluterine bleeding. History was unable to be obtained from the patientbecause of a previous traumatic brain injury. Apparently, the patienthas had random bleeding episodes which have been quite heavy. This hasbeen making care for the patient difficult. Pelvic ultrasound performedafter that visit showed 2 small fibroids. Uterus otherwise wasnormal-sized, endometrial stripe measures 7 mm. Ovaries appeared normal. Because of her history, the patient will undergo examination underanesthesia, hysteroscopy with D and C, and Chrissy endometrial ablation.The patient received medical clearance from her family physician, .PAST MEDICAL HISTORY: Illnesses: Traumatic brain injury, neuromusculardysfunction of the uterus, spastic quadriplegia.Surgeries: Tracheostomy, laparoscopic cholecystectomy.ALLERGIES: Latex, alcohol, morphine, and pineapple. Reactions are notindicated.SOCIAL HISTORY: The patient was a former smoker.FAMILY HISTORY: Unknown.REVIEW OF SYSTEMS: Unable to obtain.PHYSICAL EXAM: Showed a white female. General Appearance: Shows a whitefemale, who responds to some questioning, but is unable to give ahistory. She does not appear to be in distress at this time. NeckExamination: Negative. Heart has a regular rate and rhythm. Lungs areclear to auscultation and percussion. Abdominal exam showed the abdomento be soft. No masses felt. Pelvic exam unable to be performed becauseof the spastic quadriplegia.IMPRESSION: Abnormal uterine bleeding.PLAN OF ACTION: Hysteroscopy, D and C, with Chrissy endometrial ablation.Elver Quinones M.D.OB/GYNPJN:[id number]: 08/23/2017 10:49:41T: 08/23/2017 12:42:17Job #: [id number] [facility] NURSING PROGon 08-23-2017 NURSING PROG HNO ID: [id number] thor: Ann (Rn) CALISTA Griderervice: NursingAuthor Type: Registered NurseType: Nursing Progress NoteFiled: 08/23/2017 12:40 PMNote Text: Nursing Progress NotePatient Name: Diana CalabreseMRN: [id number] Location: [place] Surgery/[facility] Surgery 1230 Per HILARIO Oconnor dictated this morning. Consent with [facility] on it. stated he had discussed with POA, but miswrote on consentusing abbrev instead of words. Unable to reach POA at this time forclarification.This note was completed by: Ann Grider RN [facility] OPERATIVE NOon 08-23-2017 OPERATIVE NO HNO ID: [id number] thor: Elver Correiaervice: GynecologyAuthor Type: PhysicianType: Operative ReportFiled: 08/25/2017 7:27 AMNote Text:[facility]- Operative ReportBEAUDIANA JAMESDOB: 1975 AGE: 41 SEX: FMRN: [id number] ACCTNUM: [id number] SVC: [id number] LOCATION: [id number] PHYSICIAN: Elver Quinones M.D.DATE OF PROCEDURE: 08/23/2017SURGEON: Elver Quinones M.D.DOOR MACHINE OPERATOR: NONEANESTHESIA:PREOPERATIVE DIAGNOSIS(ES): Abnormal uterine bleeding.POSTOPERATIVE DIAGNOSIS(ES): Abnormal uterine bleeding.NAME OF OPERATION: Hysteroscopy, D and C, Chrissy endometrial ablation.INDICATIONS:OPERAT GOLDEN FINDINGS: Exam under anesthesia showed the vaginal lining andcervix appeared normal. The uterus sounded to 9 centimeters.Hysteroscopic examination of the endocervical canal revealed noabnormalities. Examination uterine cavity showed a thickenedbenign-appearing endometrium, after the curettage was completed, theendometrium was thinned out. No polyps or fibroids were noted.OPERATIVE PROCEDURE: The patient was taken to the operating room whereshe received a general anesthetic, placed in the supine position becauseof her spastic paraplegia. She could not be placed in stirrups and thelegs were held apart by the nurses. After the patient was prepped, abivalve speculum was placed. Cervix was grasped with a single-toothtenaculum. The uterus was sounded, cervix was dilated with #6 Hegardilator. A slimline hysteroscope was placed under direct visualization.After visualization was completed, sharp curettage was performed. TheMinerva device was prepared and entered into the uterine cavity. A2-minute treatment cycle was performed after procedure was completed.All instruments were removed. The patient was taken recovery room instable satisfactory condition.PROCEDURE:Elver Quinones M.D.OB/GYNPJN:[id number]: 08/23/2017 13:25:16T: 08/23/2017 22:37:56Job #: [id number] [facility] PROGRESSon 08-23-2017 PROGRESS HNO ID: [id number] thor: Elver Jackson Masoodervice: GynecologyAuthor Type: PhysicianType: Progress NotesFiled: 08/23/2017 12:45 PMNote Text:Pre-op note:Patient is non-communicative secondary to traumatic brain injury. She isscheduled for hysteroscopy, dilatation and curettage, and Minervaendometrial ablation. Consent inadvertantly had "DANDC" for dilatation andcurettage. Patient's doctor and power of assistant district attorney understand the procedurebeing performed. Patient received medical clearance from Dr. Waters. [facility] PT EDon 08-23-2017 PT ED HNO ID: [id number] thor: Agnieszka (Rn) CALISTA Meadervice: (none)Author Type: Registered NurseType: Patient EducationFiled: 08/23/2017 3:22 PMNote Text:POST OP LEARNING RESPONSEINSTRUCTION PROVIDED TO: Caregiver and SNF Nurse JessicaMETHOD OF INSTRUCTION: Written instruction - handoutsVerbal instructionPATIENT / FAMILY RESPONSE: Verbalizes understanding of: Post -OperativeInstructionsFOLLO W-UP PLAN: Complete - No need for follow-upSUPPLEMENTAL MATERIAL: NoneREFERRAL (RECOMMENDATION): NoneElectronically Signed By: Agnieszka Mead RN In Department: [facility] SURGERY [facility] PT ED HNO ID: [id number] thor: Ann WaldronRn) CALISTA Griderervice: NursingAuthor Type: Registered NurseType: Patient EducationFiled: 08/23/2017 11:50 AMNote Text:PRE OP LEARNING ASSESSMENTPROCEDURE/SURGERY : SURGERY: Hysteroscopy, DANDC, Endometrial AblationREADINESS TO LEARNCOGNITIVE ABILITY: Confused at timesMOTIVATION TO LEARN: ReluctantFAMILY SUPPORT: caregiver presentPATIENT LEARNS BEST BY: Verbal InstructionFACTORS AFFECTING LEARNING: Other mentally challengedPHYSICAL LIMITATIONS AFFECTING LEARNING: Limited Mobility and OtherLimitations quadriplegic, traumatic brain injuryElectronically Signed By: Ann Grider RN In Department: [facility] SURGICAL PATHOLOGYon 018 SURGICAL PATHOLOGY Specimen originated from [facility] #: [id number] Physician: Elver Quinones M.D. FIN AL DIAGNOSISEndometrial, curettings - Inactive endometrium with patchy stromalbreakdown.- Fragments of benign smooth muscle. - Benign endocervical tissue. SMS/dss 08/25/2017 Di Marcum M.D.(Electronic Signature) SPEC IMEN SUBMITTEDA: ENDOMETRIAL, CURETTINGS CLINICAL DATAMENORRHAGIA WITH REGULAR CYCLE, LMP: HCG NEGATIVEHYSTEROSCOPY, D & C CHRISSY ABLATIONGROSS DESCRIPTIONA. Received in formalin on Telfa gauze are multiple raya-red, soft featherysegments of tissue aggregating to 6.5 x 1.7 x 0.2 cm. Totally submitted inthree cassettes.Gross examination performed at [facility], [address] [place] [address] [id number] 08/23/2017 7:39:11 PMPatient ID #: [id number] of Report: 08/25/2017Date of Procedure: 08/23/2017Date of Receipt: 08/23/2017Submitted by: Elver Quinones M.D.Location: MEORDiagnostic interpretation performed at [facility], [address] [place] [address]. [facility] Comment on above: Performed By: #### P ATHS ####[facility] [address] [phone] Serum Beta HCG East/West/Med /Superior/[facility] use ONLYon 08-23-2017 HCG.beta subunit Qn Negative Normal Negative [facility] Comment on above: Result Comment: Fals e positives and false negatives are rare but have been described. Clinical correlation of the findings is recommended. Performed By: #### B ETAMM ####[facility] [address] [place], [place] [phone] HOSPon 08-22-2017 HOSP Patient:Henrik Calabrese N: Height:6' 2"(1.88 m)Weight:237 lb (107.502 kg)Outpatient Medications as of 08/23/17:norethindrone (AYGESTIN) 5 mg tabletbaclofen (LIORESAL) 20 mg tabletBISACODYL RECTALBlack Cohosh 540 mg capclonazePAM (KLONOPIN) 1 mg tabletferrous sulfate 325 mg (65 mg iron) [id number]-EPA-Fish Oil (FISH OIL) 1,000 mg (120 mg-180 mg) capgabapentin (NEURONTIN) 300 mg capsulegabapentin (NEURONTIN) 600 mg tabletlactulose (DUPHALAC, CONSTULOSE) 10 gram/15 mL solutionATORVASTATIN CALCIUM (LIPITOR ORAL)methadone (DOLOPHINE) 10 mg tabletmethadone (DOLOPHINE) 5 mg tabletMULTI-VITAMIN ORALNITROFURANTOIN MACROCRYSTAL ORALdextromethorphan 20 mg - quiNIDine 10 mg (NUEDEXTA) 20-10 mg capsuleOXcarbazepine (TRILEPTAL) 300 mg tabletpolyethylene glycol 3350 (MIRALAX, GLYCOLAX) 17 gram packetomeprazole (PRILOSEC) 20 mg capsuletopiramate (TOPAMAX) 200 mg tabletnaphazoline-phenirami ne eye drops (VISINE-A) 0.025-0.3 % ophthalmic solutionB Complex Vitamins capsulecholecalciferol (VITAMIN D-3) 2,000 unit tabletSERTRALINE HCL (ZOLOFT ORAL)Admission/Clinic Administered Medications as of 08/23/17:0.9% NaCl 2-10 mLProblem List:No problem list on file for this patient.Allergies:LatexMorp hinePineappleDate Verified: 08/23/17Lab ValuesNo results within the last 30 days for the following basenames: K,HCTProgress Notes ():Nancy Mittal RN, RN 08/22/2017 4:50 PM SignedPA Nurse Progress NoteHistory AND Physical:PACC Visit Date: N/AOutside HANDP Scanned Date: 07/19/17 office notes outdated.Nurse Pena from [place] will try to send a current HANDPLabs Within Last 6 Months:CBC: Date 08/11/17BMP/CMP: Date 08/11/17 AST 435,ALT 644PT: Date 08/11/17PTT: Date 08/11/17Imaging Within Last 12 Months:N/ACardiac Testing:EKG in last 12 Months: Yes: Date: 08/14/17, Comment: SR non-specific STANDT waveabnormalityLast Menstrual Period:LMP Date: unknownRisk Assessment: Medical Date: 08/15/17 Stephanie Chaudhry CNPAnesthesia Review:Email sentNarrative:Resident of [place] [phone] signed by guardian and scanned in epicTransportation by Maurice Conway to accompany patientPre-op Considerations:Quadriplegic ,Chart Check:COMPLETEDNancy Mittal RNAugust 22, 2017 4:31 PMInstructions reviewed with nurse PenaPATIENT PREOPERATIVE INSTRUCTIONSNo ref. provider found has scheduled you for your procedure at this surgerycenter:[facility]: [phone] -- [address] [id number].Please read below carefully for your personalized instructions.Blood Thinning Medications:- Stop NSAIDS (Ibuprofen, Advil, Aleve, Motrin, Celebrex, Mobic, etc.) 1 daysbefore surgery, as directed by your surgeon.- Stop Aspirin 1 days before surgery, as directed by your surgeon.- Stop Vitamin E, ALL multi-vitamins, herbals and dietary supplements 1 daysbefore surgery.Dietary Restrictions:- No solid food after midnight.- You may have 12 ounces of clear liquids (water, clear juices such as applejuice or gatorade, carbonated beverages, clear tea, black coffee, jello) until 2hours before scheduled arrival at facility.Pain Medications:- Please continue your current pain medications.Medications:Payton roved medications to take the morning of surgery with a sip of water:Prilosec,Neurontin,Me thadone,Baclofen,Oxycarbazp ineIf you start any new medications after today's visit, please contact the surgerycenter above.Important Reminders:- If you are prescribed inhalers for breathing, continue using them AND bringthem to the surgery center.- Candy, mints, gum and tobacco products are NOT permitted the morning ofsurgery.- Hearing aids, dentures and glasses may be worn the morning of surgery.- NO jewelry, body piercings, makeup, nail cypriot, hairpins or contacts are nara worn the day of surgery.If you develop symptoms such as a fever, cold, or flu, or have other changes toyour health within TWO DAYS of scheduled surgery or the morning of surgery,please contact the surgery center above.Personal Belongings:- Leave ALL valuables and money at home or with family members.For Outpatient Procedures: - YOU MUST HAVE A RESPONSIBLE LEGAL RECOVERY SPECIALIST TAKE YOU HOME. A SQL ENGINEER OR CAB DRIVERCANNOT BE MADE A RESPONSIBLE LEGAL RECOVERY SPECIALIST.- We recommend that a responsible person stays with you overnight to take careof you.- You cannot stay in a hotel alone after outpatient surgery. You will not bepermitted to have your surgery, if you do not have someone to take care of you. Arrival Time for Surgery:- The Surgery Center or hospital where you are having surgery will call theafternoon before surgery (or Monday for Monday surgery) with a scheduled arrivaltime.- If you have not heard by 4 pm, please contact the surgery center above.Please be aware that emergency situations arise, which may delay or change yoursurgical time. If this happens, we will notify you as soon as possible andregret any inconvenience.Hernando Tao MD 08/23/2017 11:35 AM Addendum ANESTHESIOLOGY DAY OF SURGERY NOTESERVICE DATE: 08/23/2017SERVICE TIME: 11:30 AMDOB: 1975Procedure(s) (LRB):HYSTEROSCOPY WITH ENDOMETRIAL ABLATION (N/A)DILATION AND CURETTAGE (N/A)Surgeon(s):Elver Miller is no height or weight on file to calculate BMI.Most recent hematocrit and potassium results:No results found for this basename: HCT,HEMATOCRIT,K,POTASSIUMA WALLY DOS/PREOP NOTE:Vitals:There were no vitals filed for this visit.QuadriplegicHTNHLDDem entiaBipolarDysphagiaDepres sionSocial History:Social HistorySubstance Use Topics- Smoking status: Not on file- Smokeless tobacco: Not on file- Alcohol use Not on fileNo current facility-administered medications on file prior to encounter.No current outpatient prescriptions on file prior to encounter.Current Facility-Administered Medications:0.9% NaCl 2-10 mL 2-10 mL INTRAVENOUS q 12 H Elver Nguyenergies:ALLERGIESAl lergen Reactions- Latex Swelling- Morphine Swelling- Pineapple SwellingDOS EXAM: Adequate NPO Status: YesAnesthetic Risks, Benefits, Alternatives, Personnel and Consent Discussed:No, POA not presentPatient agrees to proceed: Yes per POAPrevious Anesthesia: No history of adverse eventAirway Assessment: MP 2; Neck ROM: Full ROM without neurologic symptoms; AirwayEvaluation: No significant abnormalitiesSymptoms of Sleep Apnea: NoneDentition: Teeth intactAdditional Physical Exam:Lungs: Patient health status unchanged since recent history and physical. Seehistory and physical for exam findings.Cardiac: Patient health status unchanged since recent history and physical. Seehistory and physical for exam findings.Additional Pertinent Findings: N/ABlood Products: Not anticipated for this procedureAnesthetic Plan: GeneralAnesthetic Monitoring: Standard ASA MonitorsPain Management Plan: Parenteral or OralASA Class: 4Other Medical Problems: quadriplegicChronic Beta David medication administered within 24 hours: N/AI have interviewed and examined the patient. I have reviewed the medical recordand/or the pre-anesthesia evaluation, pertinent labs, and test results.Significant changes in the patient's condition since the History and Physical,not otherwise documented in primary service progress notes: [facility] information obtained within 48 hours of Surgery/Procedure.SIGNATURE : Desmond Marte MD PATIENT NAME: Diana CalabreseDATE: August 23, 2017 : 11:30 AM CSN: [id number] Lisa Grider RN, RN 08/23/2017 11:50 AM SignedPRE OP LEARNING ASSESSMENTPROCEDURE/SURGERY : SURGERY: Hysteroscopy, DANDC, Endometrial AblationREADINESS TO LEARNCOGNITIVE ABILITY: Confused at timesMOTIVATION TO LEARN: ReluctantFAMILY SUPPORT: caregiver presentPATIENT LEARNS BEST BY: Verbal InstructionFACTORS AFFECTING LEARNING: Other mentally challengedPHYSICAL LIMITATIONS AFFECTING LEARNING: Limited Mobility and Other Limitationsquadriplegic, traumatic brain injuryElectronically Signed By: Ann Grider, RN In Department: [facility]ENTERCharla Grider RN, RN 08/23/2017 12:40 PM Signed Nursing Progress NotePatient Name: Diana CalabreseMRN: [id number] Location: [place] [facility]/[place] Surgery [address] Quinones, HILARIO dictated this morning. Consent with initials DANDC onit. stated he had discussed with POA, but miswrote on consent using abbrevinstead of words. Unable to reach POA at this time for clarification.This note was completed by: Traci Wakefield MD 08/23/2017 12:45 PM SignedPre-op note:Patient is non-communicative secondary to traumatic brain injury. She isscheduled for hysteroscopy, dilatation and curettage, and Chrissy endometrialablation. Consent inadvertantly had "DANDC" for dilatation and curettage.Patient's doctor and power of assistant district attorney understand the procedure being performed.Patient received medical clearance from Dr. Waters. Normal [facility] NURSING PROGon 08-22-2017 NURSING PROG HNO ID: [id number] thor: Nancy (Rn) CALISTA Mittalervice: (none)Author Type: Registered NurseType: Nursing Progress NoteFiled: 08/22/2017 4:50 PMNote Text:PACC Nurse Progress NoteHistory AND Physical:PACC Visit Date: N/AOutside HANDP Scanned Date: 07/19/17 office notes outdated.Nurse Becky from [place] will try to send a current HANDPLabs Within Last 6 Months:CBC: Date 08/11/17BMP/CMP: Date 08/11/17 AST 435,ALT 644PT: Date 08/11/17PTT: Date 08/11/17Imaging Within Last 12 Months:N/ACardiac Testing:EKG in last 12 Months: Yes: Date: 08/14/17, Comment: SR non-specific STANDTwave abnormalityLast Menstrual Period:LMP Date: unknownRisk Assessment: Medical Date: 08/15/17 Stephanie Chaudhry CNPAnesthesia Review:Email sentNarrative:Resident tierney [place] [phone] signed by guardian and scanned in epicTransportation by Maurice Conway to accompany patientPre-op Considerations:Quadriplegic ,Chart Check:Jules Mittal RNJanuary 2017 4:31 PMInstructions reviewed with nurse David PREOPERATIVE INSTRUCTIONSNo ref. provider found has scheduled you for your procedure at [facility]: [phone] -- [address] [id number].Please read below carefully for your personalized instructions.Blood Thinning Medications:- Stop NSAIDS (Ibuprofen, Advil, Aleve, Motrin, Celebrex, Mobic, etc.) 1days before surgery, as directed by your surgeon.- Stop Aspirin 1 days before surgery, as directed by your surgeon.- Stop Vitamin E, ALL multi-vitamins, herbals and dietary supplements 1days before surgery.Dietary Restrictions:- No solid food after midnight.- You may have 12 ounces of clear liquids (water, clear juices such asapple juice or gatorade, carbonated beverages, clear tea, black coffee,jello) until 2 hours before scheduled arrival at facility.Pain Medications:- Please continue your current pain medications.Medications:Payton roved medications to take the morning of surgery with a sip of water:Prilosec,Neurontin,Me thadone,Baclofen,Oxycarbazp ineIf you start any new medications after today's visit, please [facility].Important Reminders:- If you are prescribed inhalers for breathing, continue using them ANDbring them to the surgery center.- Candy, mints, gum and tobacco products are NOT permitted the morning ofsurgery.- Hearing aids, dentures and glasses may be worn the morning of surgery.- NO jewelry, body piercings, makeup, nail cypriot, hairpins or contactsare to be worn the day of surgery.If you develop symptoms such as a fever, cold, or flu, or have otherchanges to your health within TWO DAYS of scheduled surgery or the morningof surgery, please contact the surgery center above.Personal Belongings:- Leave ALL valuables and money at home or with family members.For Outpatient Procedures: - YOU MUST HAVE A RESPONSIBLE LEGAL RECOVERY SPECIALIST TAKE YOU HOME. A SQL ENGINEER OR CABDRIVER CANNOT BE MADE A RESPONSIBLE LEGAL RECOVERY SPECIALIST.- We recommend that a responsible person stays with you overnight to takecare of you.- You cannot stay in a hotel alone after outpatient surgery. You will notbe permitted to have your surgery, if you do not have someone to take careof you. Arrival Time for Surgery:- The Surgery Center or hospital where you are having surgery will callthe afternoon before surgery (or Monday for Monday surgery) with ascheduled arrival time.- If you have not heard by 4 pm, please contact the surgery center above.Please be aware that emergency situations arise, which may delay or changeyour surgical time. If this happens, we will notify you as soon aspossible and regret any inconvenience.Nancy Mittal RN [facility] US Pelvis Completeon 017 US Pelvis Complete Patient Name: DIANA PUGH Ultrasound Exam Date/Time 07/21/2017 15:15:00 EST Exam US Pelvis Complete Ordering Physician ELVER QUINONES Accession Number [id number] CPT4 Codes 55421 () Reason For Exam Abnormal uterine bleeding Report ULTRASOUND PELVIS: CLINICAL INDICATION: Irregular bleeding LMP: Unknown COMPARISON: 04/29/2013 TECHNIQUE: Transabdominal ultrasound of pelvis, including color flow and spectral Doppler imaging FINDINGS: Uterus: Orientation: Anteverted Size: 9.3 x 8.3 x 4.8 cm Endometrium: 7 mm Mass: Two hypoechoic leiomyomas are seen, one located posteriorly measuring 4.3 x 4.4 x 3.1 cm, and the other located more anteriorly in the fundus measuring 6.2 x 4.8 x 4.2 cm. Cervix: normal Neither ovary was visualized. Cul-de-sac: No free fluid IMPRESSION: 1. Uterine leiomyomata. 2. Neither ovary was identified. Report Dictated on Final Dictating Physician: MD AALN NICHOLAS Signed Date and Time: 07/21/2017 4:31 pm Signed by: MD ALAN NICHOLAS Transcribed Date and Time: 07/21/2017 4:32 Normal [facility] Vital Signs Date Time Vital Sign Value Performing Clinician Faci lity 01-20-2025 07:47-0400 Body temperature 97.81 [degF] Danny Balderas MD Work Phone: [facility] 01-20-2025 07:47-0400 Diastolic blood pressure 63 mm[Hg] Danny Balderas MD Work Phone: [facility] 01-20-2025 07:47-0400 Heart rate 84 /min Danny Balderas MD Work Phone: [facility] 01-20-2025 07:47-0400 Respiratory rate 16 /min Danny Balderas MD Work Phone: [facility] 01-20-2025 07:47-0400 SaO2% (BldA) [Mass fraction] 99 % Danny Balderas MD Work Phone: [facility] 01-20-2025 07:47-0400 Systolic blood pressure 96 mm[Hg] Danny Balderas MD Work Phone: [facility] 01-20-2025 06:00-0400 Body mass index (BMI) [Ratio] 26.47 kg/m2 Danny Balderas MD Work Phone: [facility] 01-20-2025 06:00-0400 Body weight 76.66 kg Danny Balderas MD Work Phone: [facility] 01-17-2025 11:37-0400 Body height 170.2 cm Danny Balderas MD Work Phone: [facility] 07-11-2023 16:05-0500 Body temperature 97.11 [degF] Dakotah Dejesus MD Work Phone: [facility] 07-11-2023 16:05-0500 Diastolic blood pressure 58 mm[Hg] Dakotah Dejesus MD Work Phone: [facility] 07-11-2023 16:05-0500 Heart rate 67 /min Dakotah Dejesus MD Work Phone: [facility] 07-11-2023 16:05-0500 Respiratory rate 18 /min Dakotah Dejesus MD Work Phone: [facility] 07-11-2023 16:05-0500 SaO2% (BldA) [Mass fraction] 95 % Dakotah Dejesus MD Work Phone: [facility] 07-11-2023 16:05-0500 Systolic blood pressure 102 mm[Hg] Dakotah Dejesus MD Work Phone: [facility] 07-10-2023 13:27-0500 Body height 172.7 cm Dakotah Dejesus MD Work Phone: [facility] 07-10-2023 13:00-0500 Body mass index (BMI) [Ratio] 30.71 kg/m2 Dakotah Dejesus MD Work Phone: [facility] 07-10-2023 13:00-0500 Body weight 91.63 kg Dakotah Dejesus MD Work Phone: [facility] 05-09-2023 13:57-0400 Body height 188 cm Zi Wright MD Work Phone: [facility] 07-03-2021 19:25-0500 Diastolic blood pressure 59 mm[Hg] Juanjose Patton MD Work Phone: [facility] 07-03-2021 19:25-0500 Systolic blood pressure 91 mm[Hg] Juanjose Patton MD Work Phone: [facility] 07-03-2021 19:21-0500 Heart rate 75 /min Juanjose Patton MD Work Phone: [facility] 07-03-2021 19:21-0500 Respiratory rate 15 /min Juanjose Patton MD Work Phone: [facility] 07-03-2021 19:21-0500 SaO2% (BldA) [Mass fraction] 97 % Juanjose Patton MD Work Phone: [facility] 07-03-2021 15:22-0500 Body temperature 98.01 [degF] Juanjose Patton MD Work Phone: [facility] Encounters Encounter Date Encounter Type Care Provider Facility Start: 01-28-2025 ambulatory Venkat HONEYCUTT Faci lity:[facility] Start: 01-20-2025 End: 01-20-2025 ambulatory Diana Paredes RN [facility] Clinical Communication Start: 01-20-2025 End: 01-20-2025 Patient encounter procedure Diana Paredes RN [facility] Clinical Communication Start: 01-14-2025 End: 01-20-2025 Evaluation and management of inpatient Danny Balderas MD Work Phone: [facility] Comment on above: Hypotension, unspeci fied hypotension type (Primary Dx); Disorientation; Functional quadriplegia (CMS/HCC) (HCC) Start: 01-13-2025 ambulatory Venkat HONEYCUTT Faci lity:[facility] Start: 12-11-2024 End: 12-11-2024 ambulatory Venkat Delaneymaura HONEYCUTT [facility] Work Phone: Start: 12-11-2024 End: 12-11-2024 Departed Referred Venkat Moser [facility] Start: 12-11-2024 End: 12-11-2024 ambulatory Venkat HONEYCUTT Facility:[facility] Start: 10-24-2024 End: 10-24-2024 ambulatory Venkat HONEYCUTT [facility] Work Phone: Start: 10-24-2024 End: 10-24-2024 Departed Referred Venkat Moser [employer] Start: 10-24-2024 End: 10-24-2024 ambulatory Venkat HONEYCUTT Facility:[facility] Start: 09-03-2024 End: 09-03-2024 ambulatory Venkat HONEYCUTT [facility] Work Phone: Start: 09-03-2024 End: 09-03-2024 Departed Referred Venkat Malin -[facility] Start: 09-03-2024 End: 09-03-2024 ambulatory Venkat HONEYCUTT Facility:[facility] Start: 07-25-2024 End: 07-25-2024 Departed Referred Venkat Delaneymaura -[facility] Start: 07-25-2024 End: 07-25-2024 ambulatory Venkat HONEYCUTT Facility:[facility] Start: 06-24-2024 ambulatory Venkat HONEYCUTT Faci lity:[facility] Start: 06-24-2024 Registered Referred Venkat Malin - [facility] [employer] [facility] Start: 06-05-2024 End: 06-05-2024 ambulatory Venkat HONEYCUTT Facility:[facility] Start: 06-03-2024 End: 06-03-2024 ambulatory Venkat HONEYCUTT Facility:[facility] Start: 05-24-2024 End: 05-24-2024 ambulatory Venkat HONEYCUTT Facility:[facility] Start: 05-17-2024 End: 05-17-2024 ambulatory Venkat Baltazarsaredd [facility] Facility:[facility] Start: 04-26-2024 End: 04-26-2024 ambulatory Venkat HONEYCUTT Facility:[facility] Start: 03-27-2024 End: 03-27-2024 ambulatory Venkat Baltazarsaredd OLS Facility:[facility] Start: 03-11-2024 End: 03-11-2024 ambulatory Venkat Baltazarsaredd HONEYCUTT Facility:[facility] Start: 02-20-2024 End: 02-20-2024 ambulatory Venkat Katsaros OLS Facility:[facility] Start: 10-30-2023 End: 10-30-2023 ambulatory [facility] Work Phone: Start: 10-30-2023 End: 10-30-2023 [facility] Start: 10-30-[facility]23 [facility] [employer] [facility] Start: 10-18-2023 End: 10-18-2023 ambulatory [facility] Work Phone: Start: 10-18-2023 End: 10-18-2023 [facility] Start: 10-09-2023 End: 10-09-2023 ambulatory [facility] Work Phone: Start: 10-09-2023 End: 10-09-2023 [facility] Start: 09-28-2023 End: 09-28-2023 ambulatory [facility] Work Phone: Start: 09-28-2023 End: 09-28-2023 [facility] Start: 09-28-2023 [facility] [employer] [facility] Start: 09-20-2023 End: 09-20-2023 ambulatory [facility] Work Phone: Start: 09-20-2023 End: 09-20-2023 [facility] Start: 09-19-2023 End: 09-19-2023 ambulatory [facility] Work Phone: Start: 09-19-2023 End: 09-19-2023 [facility] Start: 09-19-2023 [facility] Start: 08-31-2023 End: 08-31-2023 ambulatory [facility] Work Phone: Start: 08-31-2023 End: 08-31-2023 [facility] Start: 07-19-2023 End: 07-19-2023 [facility] Start: 07-07-2023 End: 07-11-2023 Evaluation and management of inpatient Dakotah Dejesus MD Work Phone: [facility] Cardiac Progressive Care Unit PCU 2E Comment on above: Urinary tract infect ion (Primary Dx) Start: 06-20-2023 End: 06-20-2023 ambulatory [facility] Work Phone: Start: 06-20-2023 End: 06-20-2023 Departed Referred [facility] Start: 06-08-2023 End: 06-08-2023 Subsequent hospital visit by physician Zi Wright MD Work Phone: [facility] Comment on above: Mass of lower inner quadrant of left breast Start: 05-09-2023 End: 05-09-2023 Office outpatient new 45 minutes Zi Wright MD Work Phone: [facility] Comment on above: Mass of lower inner quadrant of left breast (Primary Dx) Start: 04-26-2023 End: 04-26-2023 ambulatory [facility] Work Phone: Start: 04-26-2023 End: 04-26-2023 Departed Referred [facility] [employer] Start: 02-28-2023 End: 02-28-2023 ambulatory [facility] Work Phone: Start: 02-28-2023 End: 02-28-2023 Departed Referred [facility] [employer] Start: 12-29-2022 End: 12-29-2022 ambulatory [facility] Work Phone: Start: 12-29-2022 End: 12-29-2022 Departed Referred [facility] [employer] Start: 08-31-2022 End: 08-31-2022 ambulatory [facility] Work Phone: Start: 08-31-2022 End: 08-31-2022 Departed Referred [facility] [employer] Start: 06-30-2022 End: 06-30-2022 ambulatory [facility] Work Phone: Start: 06-30-2022 End: 06-30-2022 Departed Referred [facility] Start: 06-07-2022 Transcribe Orders Venkat Delaneykiana os Work Phone: [facility] Central Scheduling Comment on above: Pain in unspecified joint (Primary Dx) Start: 02-28-2022 End: 02-28-2022 ambulatory [facility] Work Phone: Start: 02-28-2022 End: 02-28-2022 Departed Referred [facility] Start: 12-29-2021 End: 12-29-2021 Departed Referred [facility] Start: 09-28-2021 End: 09-28-2021 Departed Referred [facility] Start: 07-03-2021 End: 07-03-2021 Emergency department patient visit Juanjose Patton MD Work Phone: [facility] Emergency Dept Comment on above: Injury of head, init ial encounter (Primary Dx); Laceration of scalp, initial encounter Start: 05-21-2018 Patient encounter Maurice Mahoney ity:[facility] Start: 08-23-2017 End: 08-23-2017 Ambulatory [facility] Start: 07-21-2017 Ambulatory [facility] Procedures Date Procedure Procedure Detail Performing Clinician Start: 01-20-2025 Basic metabolic pane l calcium total Florencio Henning MD Work Phone: Start: 01-18-2025 Basic metabolic pane l calcium total Evy Núñez MD Work Phone: Start: 01-17-2025 Comprehensive metabo lic panel Daja Vogel MD Work Phone: Start: 01-16-2025 Comprehensive metabo lic panel Daja Vogel MD Work Phone: Start: 01-15-2025 Ecg routine ecg w/le ast 12 lds trcg only w/o i&r Daja Vogel MD Work Phone: Start: 01-15-2025 Comprehensive metabo lic panel Daja Vogel MD Work Phone: Start: 01-15-2025 Ct upper extremity w /o contrast material Angela Quinones MD Work Phone: Start: 01-14-2025 Radiologic exam abdo men 1 view Daja Vogel MD Work Phone: Start: 01-14-2025 Bacteria identified in Blood by Culture Bernard Isabel MD Work Phone: Start: 01-14-2025 Radex shoulder compl ete minimum 2 views Anuj Truongtravis DO Work Phone: Start: 01-14-2025 Urnls dip stick/tabl et rgnt auto w/o microscopy Danny Balderas MD Work Phone: Start: 01-14-2025 Glucose quantitative blood xcpt reagent strip Danny Balderas MD Work Phone: Start: 01-14-2025 Bacteria identified in Blood by Culture Danny Balderas MD Work Phone: Start: 01-14-2025 End: 01-14-2025 Comprehensive metabolic panel Danny Balderas MD Work Phone: Start: 01-14-2025 Ct head/brain w/o co ntrast material Danny Balderas MD Work Phone: Start: 01-14-2025 Ecg routine ecg w/le ast 12 lds trcg only w/o i&r Danny Balderas MD Work Phone: Start: 01-14-2025 HCS INTRAOSSEOUS LINE N cyndee Balderas MD Work Phone: Start: 01-14-2025 Placement needle intraosseous infusion Danny Balderas MD Work Phone: Start: 09-03-2024 Measurement of renal function Venkat HONEYCUTT Comment on above: GFR Calc Start: 10-29-2023 Urine culture Start: 07-11-2023 Ct abdomen & pelvis w/o contrast material Yoko M Esterle DO Work Phone: Start: 07-10-2023 Basic metabolic pane l calcium total Yoko M Esterle DO Work Phone: Start: 07-10-2023 Drug screen quantita tive vancomycin Prem Raya MD Work Phone: Start: 07-09-2023 Bacteria identified in Blood by Culture Prem Raya MD Work Phone: Start: 07-09-2023 Basic metabolic pane l calcium total Yoko M Esterle DO Work Phone: Start: 07-08-2023 Culture bacterial quanttative colony count urine Yoko M Esterle DO Work Phone: Start: 07-07-2023 Assay of lactate Ruby Dejesus MD Work Phone: Start: 07-07-2023 End: 07-07-2023 Bacteria identified in Blood by Culture Dakotah Dejesus MD Work Phone: Start: 07-07-2023 BLOOD CULTURE IDENTIFICATION - ANAEROBIC Dakotah Dejesus MD Work Phone: Start: 07-07-2023 Ct head/brain w/o co ntrast material Dakotah Dejesus MD Work Phone: Start: 07-07-2023 Urnls dip stick/tabl et reagent auto microscopy Dakotah Dejesus MD Work Phone: Start: 07-07-2023 End: 07-07-2023 Comprehensive metabolic panel Dakotah Dejesus MD Work Phone: Start: 07-07-2023 Ecg routine ecg w/le ast 12 lds trcg only w/o i&r Dakotah Dejesus MD Work Phone: Start: 07-07-2023 Radiologic exam ches t single view Dakotah Dejesus MD Work Phone: Start: 06-08-2023 Us breast uni real t marcelina with image limited Zi Wright MD Work Phone: Start: 07-03-2021 Ct cervical spine w/ o contrast material Blake Pelaez DO Work Phone: Start: 07-03-2021 Ct head/brain w/o co ntrast material Juanjose Patton MD Work Phone: Start: 07-03-2021 Radex foot complete minimum 3 views Rafat Haney MD Work Phone: Start: 07-03-2021 Radiologic exam ches t single view Rafat Haney MD Work Phone: Start: 07-03-2021 COVID-19 Rafat gonzalez MD Work Phone: Start: 07-03-2021 Basic metabolic pane l calcium total Rafat Haney MD Work Phone: Plan of Treatment Date Care Activity Detail Author Start: 2050 RSV Immunization for Adults (1 - 1-dose 75+ series) RSV Immunization for Adults (1 - 1-dose 75+ series) [facility] Start: 2035 RSV Immunization age d 60 or older (1 - 1-dose 60+ series) RSV Immunization aged 60 or older (1 - 1-dose 60+ series) [facility] Start: 07-03-2031 DTaP/Tdap/Td vaccine (2 - Td or Tdap) DTaP/Tdap/Td vaccine (2 - Td or Tdap) [facility] Start: 07-03-2031 DTaP/Tdap/Td Vaccine s (2 - Td or Tdap) DTaP/Tdap/Td Vaccines (2 - Td or Tdap) [facility] Start: 2025 Zoster Vaccines (1 of 2) Zoste r Vaccines (1 of 2) [facility] Start: 03-31-2025 Influenza vaccination Influenz a Vaccine (Season Ended) [facility] Start: 03-31-2024 COVID-19 Vaccine ( season) COVID-19 Vaccine ( season) [facility] Start: 09-19-2023 Measurement [facility] substance [facility] Start: 05-09-2023 End: 07-09-2024 MG Breast - bilateral Diagnostic Bilateral diagnostic mammogram Imaging Routine Mass of lower inner quadrant of left breast Expected: 05/09/2023, Expires: 07/09/2024 [facility] Work Phone: Comment on above: Expected: 05/09/2023 , Expires: 07/09/2024 Start: 05-09-2023 End: 07-09-2024 US Breast - left limited Left breast US limited Imaging Routine Mass of lower inner quadrant of left breast Expected: 05/09/2023, Expires: 07/09/2024 [facility] Comment on above: Expected: 05/09/2023 , Expires: 07/09/2024 Start: 03-31-2023 COVID-19 Vaccine ( season) COVID-19 Vaccine ( season) [facility] Start: 03-31-2023 Influenza vaccination Influenza Vacc ine (#1) [facility] Start: 06-07-2022 End: 06-07-2023 CT Lumbar spine WO contrast CT lumbar spine wo IV contrast Imaging Routine Pain in unspecified joint Expected: 06/07/2022, Expires: 06/07/2023 [facility] Work Phone: Comment on above: Expected: 06/07/2022 , Expires: 06/07/2023 Start: 06-07-2022 End: 06-07-2023 CT Pelvis WO contrast CT pelvis wo IV contrast Imaging Routine Pain in unspecified joint Expected: 06/07/2022, Expires: 06/07/2023 [facility] Comment on above: Expected: 06/07/2022 , Expires: 06/07/2023 Start: 03-31-2022 Influenza vaccination Influenza Vacc ine (#1) [facility] Start: 07-15-2021 COVID-19 Vaccine (4 - Booster for Pfizer series) COVID-19 Vaccine (4 - Booster for Pfizer series) [facility] Start: 07-15-2021 COVID-19 Vaccine (4 - Pfizer series) COVID-19 Vaccine (4 - Pfizer series) [facility] Start: 03-31-2021 Influenza vaccination Flu vaccine (# 1) [facility] Start: 2020 Screening for malign ant neoplasm of colon Colon cancer screen colonoscopy [facility] Start: 02-19-2020 Lipid panel [facility] screen [facility] Start: 2015 Diabetes screen Diabetes screen [facility] Start: 2015 Screening for malign ant neoplasm of breast Mammogram [facility] Start: 2005 Screening for malign ant neoplasm of cervix [facility] Start: 1996 Screening for malign ant neoplasm of cervix Pap smear [facility] Start: 1994 Hepatitis B Vaccines (1 of 3 - 19+ 3-dose series) Hepatitis B Vaccines (1 of 3 - 19+ 3-dose series) [facility] Start: 1993 Diabetes mellitus screening Diabetes Screening [facility] Start: 1993 Hepatitis C screening Hepatitis C Sc reening [facility] Start: 1990 HIV screening HIV screen [facility] Start: 1987 COVID-19 Vaccine (1) COVID-19 Vaccin e (1) [facility] Start: 1987 Depression Screening Depression Scre ening [facility] Start: 1976 MMR Vaccines (1 of 1 - Standard series) MMR Vaccines (1 of 1 - Standard series) [facility] Start: 1975 Hepatitis B Vaccines (1 of 3 - 3-dose series) Hepatitis B Vaccines (1 of 3 - 3-dose series) [facility] Start: 1975 Hepatitis C screening Hepatitis C sc reen [facility] Start: 1975 HIV screening HIV Screening [facility] Start: 1975 Lipid panel Lipid Panel [facility] Start: 1975 Screening for malign ant neoplasm of colon [facility] Bacteria identified in Blood by Culture [facility] Work Phone: Immunizations Immunization Date Immunization Notes Care Provider Fa [facility] 07-08-2023 influenza vac subuni t quadrivalent (Flucelvax) injection 0.5 mL Dakotah Dejesus MD Work Phone: [facility] 07-03-2021 tetanus toxoid, redu teodoro diphtheria toxoid, and acellular pertussis vaccine, adsorbed Juanjose Patton MD Work Phone: [facility] 05-04-2021 influenza virus vacc ine, unspecified formulation Venkat Malin Work Phone: [facility] Payers Date Payer Category Payer Self-pay 2017 Medicaid 2016 Medicaid [id number] Unknown [id number] 2.16.8 [id number] Unknown [id number] 2.16.8 [id number] Unknown [id number] 2.16.8 [id number] Unknown [id number] 2.16.8 [id number] Unknown [id number] 2.16.8 [id number] Unknown [id number] 2.16.8 [id number] Unknown [id number] 2.16.8 [id number] Unknown [id number] 2.16.8 [id number] Unknown [id number] 2.16.8 [id number] Unknown [id number] 2.16.8 [id number] Unknown [id number] 2.16.8 [id number] Unknown [id number] 2.16.8 [id number] Unknown [id number] 2.16.8 [id number] Unknown [id number] 2.16.8 [id number] Unknown [id number] 2.16.8 [id number] Unknown [id number] 2.16.8 [id number] Social History Date Type Detail Facility Start: [facility]07[facility]: Start: 09-06-2016 Tobacco use and exposure Smoke less tobacco non-user [facility] Work Phone: Start: 07-03-2021 End: 01-14-2025 Alcohol intake Current non-drinker of alcohol (finding) [facility] Work Phone: Start: 1975 Sex Assigned At Not on file [facility] Work Phone: Exposure to SARS-CoV -2 (event) Unable to assess [facility] Start: 1975 Sex Assigned At Female [facility] History of tobacco use Current smoker [facility] Start: 06-03-2022 End: 07-08-2023 History of Social function [facility] Start: 06-03-2022 End: 07-08-2023 Alcohol Use Disorder Identification Test - Consumption [AUDIT-C] [facility] How often to you hav e a drink containing alcohol? Never [facility] Average Number of Drinks Not on file [facility] Has the [employer], [employer], or [employer] threatened to shut off services in your home in past 12Mo No [facility] Are you now , , , , never or living with a partner? Never [facility] Do you feel stress - tense, restless, nervous, or anxious, or unable to sleep at night because your mind is troubled all the time - these days [OSQ] Not at all [facility] (I/We) worried wheth er (my/our) food would run out before (I/we) got money to buy more. Never true [facility] Start: 06-03-2022 History SDOH Alcohol Frequency 1 [facility] Start: 05-31-2022 End: 06-10-2022 Exposure to SARS-CoV-2 (event) Not sure [facility] Tobacco smoking stat [facility] Unknown if ever smoked [facility] Work Phone: Start: 02-28-2022 End: 10-04-2024 Sex Female (finding) [facility] Functional Status Date Assessment Result Facility [facility] Clinical Notes 05-09-2023 to 01-20-2025 Erika Gabriel RN - 01/20/2025 6:53 PM Deion Gabriel RN - 01/20/2025 6:53 PM Deion Gabriel RN - 01/20/2025 4:12 PM EDTJessica Hernandez RN - 01/17/2025 11:02 AM Deion Gabriel RN - 01/20/2025 4:12 PM EDT Note Date & Type Note Facility 01-20-2025 Nurse Note Pt taken to SNF with transportation [facility] 01-20-2025 Nurse Note Pt taken to SNF with transportation Report called to [facility] RN questions answered aware 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 Pt IV dcd tip intact. Awaiting transport. Called [facility] to request an updated patient medication list to be faxed to [phone] Pt arrived from ED, incontinent of urine and stool, cleaned and changed, external cath applied, pt A&O x 1, hallucinating, unable to do admit questions at this time, pt unable to move any extremities, blow in call light requested from [facility], bed alarm on for safety. documented in this encounter [facility] 01-20-2025 Telephone encounter Note S: Denise from [facility] spoke with [facility] nurse regarding patient update B: Onset of symptoms/concern today A: Denise calling to updated Dr Malin patient was discharged from [facility] today and admitted to [facility]. R: Message to provider. Reason for Disposition General information question, no triage required and triager able to answer question Protocols used: Information Only Call - No [id number] [facility] 01-20-2025 Miscellaneous Notes S: Denise from [facility] spoke with [facility] nurse regarding patient update B: Onset of symptoms/concern today A: Denise calling to updated Dr Malin patient was discharged from [facility] today and admitted to [facility]. R: Message to provider. 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 Pt IV dcd tip intact. Awaiting transport. [facility] 01-20-2025 Note Formatting of this n ote might be different from the original. Confirmed pickup time of 5:00pm by transport [facility] at phone number [phone]. Location of facility drop off is [facility]. Facility notified via [facility], [facility] notified on secure chat. [facility] 01-20-2025 Note Formatting of this n ote might be different from the original. Confirmed pickup time of 5:00pm by transport [facility] at phone number [phone]. Location of facility drop off is [facility]. Facility notified via [facility]port, [facility] notified on secure chat. [facility] 01-20-2025 Miscellaneous Notes Confirmed pickup time of 5:00pm by transport [facility] at phone number [phone]. Location of facility drop off is [facility]. Facility notified via Careport, [facility] notified on secure chat. MAR, Med Rec and Updated Clinicals sent to [facility] via [facility] per [facility] request. Pt is stable for DC. Attending to place DC orders and MAR. RN to complete ERNESTO. HOTEL ATTENDANT tasked to arrange transport for 5:00 today and to sen DC Summary and MAR. SNF updated. Legal Guardian Eric [phone] called and messaged left @DC. Problem: Knowledge Deficit Goal: Patient/family/caregiver demonstrates understanding of disease process, treatment plan, medications, and discharge instructions Outcome: Progressing Problem: Potential for Compromised Skin Integrity Goal: Skin Integrity is Maintained or Improved Outcome: Progressing Problem: Knowledge Deficit Goal: Patient/family/caregiver demonstrates understanding of disease process, treatment plan, medications, and discharge instructions Outcome: Progressing Problem: Potential for Compromised Skin Integrity Goal: Skin Integrity is Maintained or Improved Outcome: Progressing Goal: Nutritional status is improving Outcome: Progressing Problem: Urinary Incontinence Goal: Perineal skin integrity is maintained or improved Outcome: Progressing Problem: Problem Interventions Goal: Assess Nutritional Intake Outcome: Progressing Problem: Potential for Compromised Skin Integrity Goal: Skin Integrity is Maintained or Improved Outcome: Progressing Flowsheets (Taken 01/18/20251937) Skin integrity is maintained or improved: Assess and monitor skin integrity Collaborate with interdisciplinary team and initiate plans and interventions as needed Relieve pressure to bony prominences Keep skin clean and dry Encourage use of lotion/moisturizer on skin Collaborate with wound, ostomy, and continence nurse Identify patients at risk for skin breakdown on admission and per policy Turn patient Avoid shearing Problem: Urinary Incontinence Goal: Perineal skin integrity is maintained or improved Outcome: Progressing Flowsheets (Taken 01/18/20251937) Perineal skin integrity is maintained or improved: Assess genitourinary system, perineal skin, labs (urinalysis), and history of incontinence to include past management, aggravating, and alleviating factors Collaborate with interdisciplinary team including wound, ostomy, and continence nurse and initiate plans and interventions as needed Keep skin clean and dry Apply urine containment device Apply skin protectant Develop skin care regimen Provide privacy when changing patient's incontinence device to maintain their dignity Problem: Knowledge Deficit Goal: Patient/family/caregiver demonstrates understanding of disease process, treatment plan, medications, and discharge instructions Outcome: Progressing Problem: Potential for Compromised Skin Integrity Goal: Skin Integrity is Maintained or Improved Flowsheets (Taken 01/17/20252000) Skin integrity is maintained or improved: Assess and monitor skin integrity Collaborate with interdisciplinary team and initiate plans and interventions as needed Relieve pressure to bony prominences Keep skin clean and dry Encourage use of lotion/moisturizer on skin Monitor patient's hygiene practices Turn patient Identify patients at risk for skin breakdown on admission and per policy Avoid shearing Problem: Knowledge Deficit Goal: Patient/family/caregiver demonstrates understanding of disease process, treatment plan, medications, and discharge instructions Outcome: Progressing Problem: Potential for Compromised Skin Integrity Goal: Skin Integrity is Maintained or Improved Outcome: Progressing Goal: Nutritional status is improving Outcome: Progressing Problem: Urinary Incontinence Goal: Perineal skin integrity is maintained or improved Outcome: Progressing Problem: Knowledge Deficit Goal: Patient/family/caregiver demonstrates understanding of disease process, treatment plan, medications, and discharge instructions Outcome: Progressing Problem: Potential for Compromised Skin Integrity Goal: Skin Integrity is Maintained or Improved Outcome: Progressing Goal: Nutritional status is improving Outcome: Progressing Problem: Urinary Incontinence Goal: Perineal skin integrity is maintained or improved Outcome: Progressing Referral placed to [facility] via Careport per [facility] request. Await review and response regarding ability to accept. [facility] notified. Pt adm to hosp from [facility] w AMS, Hypotension, dehydration, N/V. BP stable. HOTEL ATTENDANT tasked to send return referral to SNF. Met w pt, A+O today. Voice is very weak. Soft. Called Legal Guardian,Eric Chappell, , updates given. Pt is a Quad and is Bed bound. CM to follow for DC needs. Problem: Knowledge Deficit Goal: Patient/family/caregiver demonstrates understanding of disease process, treatment plan, medications, and discharge instructions Outcome: Progressing Problem: Potential for Compromised Skin Integrity Goal: Skin Integrity is Maintained or Improved Outcome: Progressing Goal: Nutritional status is improving Outcome: Progressing Problem: Urinary Incontinence Goal: Perineal skin integrity is maintained or improved Outcome: Progressing Problem: Knowledge Deficit Goal: Patient/family/caregiver demonstrates understanding of disease process, treatment plan, medications, and discharge instructions Outcome: Progressing Problem: Potential for Compromised Skin Integrity Goal: Skin Integrity is Maintained or Improved Outcome: Progressing Goal: Nutritional status is improving Outcome: Progressing Problem: Urinary Incontinence Goal: Perineal skin integrity is maintained or improved Outcome: Progressing documented in this encounter [facility] 01-20-2025 Note Formatting of this n ote might be different from the original. MAR, Med Rec and Updated Clinicals sent to [facility] via Careport per [facility] request. [facility] 01-20-2025 Note Formatting of this n ote might be different from the original. MAR, Med Rec and Updated Clinicals sent to [facility] via Careport per [facility] request. [facility] 01-20-2025 Hospital course Narrative Hospitalist Discharge Summary Diana Calabrese : 1975 Admit date: 01/14/2025 Discharge date: 01/20/2025 Admitting Physician: Daja Vogel MD Primary Care Physician: Venkat Malin Visit Status: IP Code Status: Full Code BRIEF HOSPITAL COURSE: 49-year-old patient with past medical history of Major depressive disorder, anxiety, bipolar disorder, Alzheimer's dementia, hypertension, quadriplegia who presented with concerns of altered mentation and low blood pressure from his nursing facility (of note has not had an okay visit for 2 years, now with court-appointed guardian Eric ). Of note patient was originally at [facility] emergency department, EMS had a blood pressure with systolic reading of 80-90 when he was taken there. ICU originally paged at [facility] however no acute issues requiring further intensive management. Admitted to the floor where patient continued to receive management of his AMS which is resolving, hypotension which was also resolving after fluids abdominal pain being treated accordingly and pressure wound on back POA being managed as well. Did have to get proximal humerus IO access, Ortho was paged for assistance. Imaging of shoulder was ordered by orthopedic surgery and signed off 01/15. 01/17 Referral placed to [facility] via Careport per [facility] request. Await review and response regarding ability to accept. 01/20 still waiting on SNF. Later in afternoon, CM touched base, able to send pt back. Discharged in stable condition. Acute, acute on chronic, unstable/uncontrolled chronic problems/discharge diagnoses: Metabolic encephalopathy, resolved Hypotension resolved Abdominal pain due to constipation Pressure wound on back POA Left shoulder IO access Stable chronic problems affecting care, new non-acute discharge diagnoses: Quadriplegia Alzheimer's dementia HTN GERD Anxiety Medical History[1] Procedures: as above Hospital Course: See discharge diagnoses list above and medication adjustments below in med rec.The patient is discharged in improved and stable condition. Consults: IP CONSULT TO WOUND PREVENTION IP CONSULT TO ORTHOPAEDIC SURGERY INPATIENT CONSULT TO WOUND CARE PROVIDERS Discharge Instructions: Diet: Dietary Orders (From admission, onward) Start Ordered 01/17/25 153 Supplement:Breakfast, Dinner; Vanilla Ensure Plus High Protein Until discontinued Question Answer Comment Frequency Breakfast Frequency Dinner Select supplement: Vanilla Ensure Plus High Protein 01/17/25 1530 01/17/25 1531 Supplement:Lunch; Vanilla Magic Cup Until discontinued Question Answer Comment Frequency Lunch Select supplement: Vanilla Magic Cup 01/17/25 1530 01/14/25 2252 Adult diet Regular Diet effective now Comments: If the pt passed the swallow eval Question: Diet type Answer: Regular 01/14/25 2251 Activity: as tolerated Recommended Outpatient Tests: Disposition: Patient discharged in stable condition to [facility] . Greater than 31 minutes spent discharging the patient and coming up with patient discharge plan. Vitals: BP 96/63 (BP Location: Right arm, Patient Position: Sitting) Pulse 84 Temp 36.6 C (97.8 F) (Temporal) Resp 16 Ht 5' 7" (1.702 m) Wt 169 lb (76.7 kg) SpO2 99% BMI 26.47 kg/m Pulse Ox: SpO2 Av % Min: 99 % Max: 99 % Supplemental O2: Physical Exam Vitals reviewed. Constitutional: General: She is not in acute distress. Appearance: She is not ill-appearing or toxic-appearing. Cardiovascular: Rate and Rhythm: Normal rate. Pulmonary: Effort: Pulmonary effort is normal. No respiratory distress. Musculoskeletal: General: Deformity (contractures) present. Neurological: Mental Status: She is alert. Comments: Twitches in head/neck generalized non focal Psychiatric: Mood and Affect: Mood normal. Thought Content: Thought content normal. Comments: Thought content normal today LABS: Recent Labs 01/18/25 0440 01/20/25 0612 NA 143 136 K 4.8 3.9 CL 112* 106 CO2 23 23 BUN 16 22* CREATININE 0.70 0.73 GLUCOSE 95 98 CALCIUM 9.0 9.2 Recent Labs 01/18/25 0440 WBC 7.1 RBC 4.21 HGB 11.5* HCT 37.2 MCV 88.4 MCH 27.3 MCHC 30.9 RDW 14.8 PLT 299 MPV 10.3 Discharge Medications: Medication List CONTINUE taking these medications acetaminophen 325 MG tablet Commonly known as: Tylenol Artificial Tears ophthalmic solution baclofen 10 MG tablet Commonly known as: Lioresal bisacodyl 5 MG EC tablet Commonly known as: Dulcolax clonazePAM 1 MG tablet Commonly known as: KlonoPIN ferrous sulfate 325 (65 Fe) MG tablet folic acid 1 MG tablet Commonly known as: Folvite gabapentin 400 MG capsule Commonly known as: Neurontin * guaiFENesin 100 MG/5ML liquid Commonly known as: Robitussin * Mucus Relief 400 MG tablet Generic drug: guaiFENesin * guaiFENesin 600 MG 12 hr tablet Commonly known as: Mucinex ibuprofen 800 MG tablet lactulose 10 GM/15ML solution Commonly known as: Chronulac magnesium hydroxide 400 MG/5ML suspension Commonly known as: Milk of Magnesia mirtazapine 15 MG tablet Commonly known as: Remeron MULTIPLE VITAMIN PO omega-3 1000 MG capsule Commonly known as: Fish Oil omeprazole [address] capsule Commonly known as: PriLOSEC OXcarbazepine 300 MG tablet Commonly known as: Trileptal polyethylene glycol (PEG) 3350 17 GM/SCOOP powder Commonly known as: Glycolax potassium chloride CR 8 MEQ ER tablet Commonly known as: Klor-Con * sertraline 25 MG tablet Commonly known as: Zoloft * sertraline 50 MG tablet Commonly known as: Zoloft tamsulosin 0.4 MG 24 hr capsule Commonly known as: Flomax topiramate 200 MG tablet Commonly known as: Topamax * This list has 5 medication(s) that are the same as other medications prescribed for you. Read the directions carefully, and ask your doctor or other care provider to review them with you. Recommended Follow-up: Venkat Malin [address] [facility] [address] [facility] [id number] Follow up Complexity of Follow up: [] Moderate Complexity: follow up within 7-14 calendar days (14875) [x] Severe Complexity: follow up within 7 calendar days (38976) Follow up Testing, Pending results or Referrals at Transitional Care Visit: [x] yes [] no Instructions to MA: Please call patient on day after discharge (must document patient contacted within 2 business days of discharge). Follow up questions for MA: 1. Did you get medications filled and taking them as instructed from discharge? 2. Are you following your discharge instructions from your hospital stay? 3. Please confirm patient is scheduled for a follow up appointment within the above time frame. Signed: Florencio Henning MD Division of Hospitalist Medicine [facility] 01/20/2025, 9:30 PM [1] Past Medical History: Diagnosis Date Abnormal uterine bleeding 07/19/2017 Anemia Anxiety Bipolar 1 disorder (HCC) Cholecystitis [...] (CMS/HCC) (HCC) Urine retention Vitamin D deficiency documented in this encounter [facility] 01-20-2025 Note Formatting of this n ote might be different from the original. Pt is stable for DC. Attending to place DC orders and EMANI. RN to complete ERNESTO. HOTEL ATTENDANT tasked to arrange transport for 5:00 today and to [facility] DC Summary and MAR. SNF updated. Legal Guardian Eric, called and messaged left @DC. [facility] 01-20-2025 Note Formatting of this n ote might be different from the original. Pt is stable for DC. Attending to place DC orders and MAR. RN to complete ERNESTO. HOTEL ATTENDANT tasked to arrange transport for 5:00 today and to [facility] DC Summary and MAR. SNF updated. Legal Guardian Eric, called and messaged left @DC. [facility] 01-20-2025 Note Hospitalist Discharg e Summary Diana Calabrese : 1975 Admit date: 01/14/2025 Discharge date: 01/20/2025 Admitting Physician: Daja Vogel MD Primary Care Physician: Venkat Malin Visit Status: IP Code Status: Full Code BRIEF HOSPITAL COURSE: 49-year-old patient with past medical history of Major depressive disorder, anxiety, bipolar disorder, Alzheimer's dementia, hypertension, quadriplegia who presented with concerns of altered mentation and low blood pressure from his nursing facility (of note has not had an okay visit for 2 years, now with court-appointed guardijuwan BhagatEric ). Of note patient was originally at [place] emergency department, EMS had a blood pressure with systolic reading of 80-90 when he was taken there. ICU originally paged at [facility] however no acute issues requiring further intensive management. Admitted to the floor where patient continued to receive management of his AMS which is resolving, hypotension which was also resolving after fluids abdominal pain being treated accordingly and pressure wound on back POA being managed as well. Did have to get proximal humerus IO access, Ortho was paged for assistance. Imaging of shoulder was ordered by orthopedic surgery and signed off 01/15. 01/17 Referral placed to [facility] via [facility] per [facility] request. Await review and response regarding ability to accept. 01/20 still waiting on SNF. Later in afternoon, CM touched base, able to send pt back. Discharged in stable condition. Acute, acute on chronic, unstable/uncontrolled chronic problems/discharge diagnoses: Metabolic encephalopathy, resolved Hypotension resolved Abdominal pain due to constipation Pressure wound on back POA Left shoulder IO access Stable chronic problems affecting care, new non-acute discharge diagnoses: Quadriplegia Alzheimer's dementia HTN GERD Anxiety Medical History[1] Procedures: as above Hospital Course: See discharge diagnoses list above and medication adjustments below in med rec.The patient is discharged in improved and stable condition. Consults: IP CONSULT TO WOUND PREVENTION IP CONSULT TO ORTHOPAEDIC SURGERY INPATIENT CONSULT TO WOUND CARE PROVIDERS Discharge Instructions: Diet: Dietary Orders (From admission, onward) Start Ordered 01/17/25 1531 Supplement:Breakfast, Dinner; Vanilla Ensure Plus High Protein Until discontinued Question Answer Comment Frequency Breakfast Frequency Dinner Select supplement: Vanilla Ensure Plus High Protein 01/17/25 1530 01/17/25 1531 Supplement:Lunch; Vanilla Magic Cup Until discontinued Question Answer Comment Frequency Lunch Select supplement: Vanilla Magic Cup 01/17/25 1530 01/14/25 2252 Adult diet Regular Diet effective now Comments: If the pt passed the swallow eval Question: Diet type Answer: Regular 01/14/25 2251 Activity: as tolerated Recommended Outpatient Tests: Disposition: Patient discharged in stable condition to [facility] . Greater than 31 minutes spent discharging the patient and coming up with patient discharge plan. Vitals: BP 96/63 (BP Location: Right arm, Patient Position: Sitting) Pulse 84 Temp 36.6 ?C (97.8 ?F) (Temporal) Resp 16 Ht 5' 7" (1.702 m) Wt 169 lb (76.7 kg) SpO2 99% BMI 26.47 kg/m? Pulse Ox: SpO2 Av % Min: 99 % Max: 99 % Supplemental O2: Physical Exam Vitals reviewed. Constitutional: General: She is not in acute distress. Appearance: She is not ill-appearing or toxic-appearing. Cardiovascular: Rate and Rhythm: Normal rate. Pulmonary: Effort: Pulmonary effort is normal. No respiratory distress. Musculoskeletal: General: Deformity (contractures) present. Neurological: Mental Status: She is alert. Comments: Twitches in head/neck generalized non focal Psychiatric: Mood and Affect: Mood normal. Thought Content: Thought content normal. Comments: Thought content normal today LABS: Recent Labs 01/18/25 0440 01/20/25 0612 NA 143 136 K 4.8 3.9 CL 112* 106 CO2 23 23 BUN 16 22* CREATININE 0.70 0.73 GLUCOSE 95 98 CALCIUM 9.0 9.2 Recent Labs 01/18/25 0440 WBC 7.1 RBC 4.21 HGB 11.5* HCT 37.2 MCV 88.4 MCH 27.3 MCHC 30.9 RDW 14.8 PLT 299 MPV 10.3 Discharge Medications: Medication List CONTINUE taking these medications acetaminophen 325 MG tablet Commonly known as: Tylenol Artificial Tears ophthalmic solution baclofen 10 MG tablet Commonly known as: Lioresal bisacodyl 5 MG EC tablet Commonly known as: Dulcolax clonazePAM 1 MG tablet Commonly known as: KlonoPIN ferrous sulfate 325 (65 Fe) MG tablet folic acid 1 MG tablet Commonly known as: Folvite gabapentin 400 MG capsule Commonly known as: Neurontin * guaiFENesin 100 MG/5ML liquid Commonly known as: Robitussin * Mucus Relief 400 MG tablet Generic drug: guaiFENesin * guaiFENesin 600 MG 12 hr tablet Commonly known as: Mucinex (more content not included)... [facility] 01-20-2025 Note Hospitalist Progress Note 01/20/2025 Subjective: Admit Date: 01/14/2025 PCP: Venkat Malin Room#: [id number] A BRIEF HOSPITAL COURSE: 49-year-old patient with past medical history of Major depressive disorder, anxiety, bipolar disorder, Alzheimer's dementia, hypertension, quadriplegia who presented with concerns of altered mentation and low blood pressure from his nursing facility (of note has not had an okay visit for 2 years, now with court-appointed guardian Eric ). Of note patient was originally at [place] emergency department, EMS had a blood pressure with systolic reading of 80-90 when he was taken there. ICU originally paged at [facility] however no acute issues requiring further intensive management. Admitted to the floor where patient continued to receive management of his AMS which is resolving, hypotension which was also resolving after fluids abdominal pain being treated accordingly and pressure wound on back POA being managed as well. Did have to get proximal humerus IO access, Ortho was paged for assistance. Imaging of shoulder was ordered by orthopedic surgery and signed off 01/15. 01/17 Referral placed to [facility] via [facility] per [facility] request. Await review and response regarding ability to accept. 01/20 still waiting on SNF Interval History: No overnight issues. No major changes. Labs and vitals reviewed.BP a bit soft with SBP in the 90s. Adult diet Regular 24HR INTAKE/OUTPUT: BP a bit soft Intake/Output Summary (Last 24 hours) at 01/20/2025 1046 Last data filed at 01/20/2025 0900 Gross per 24 hour Intake 540 ml Output 800 ml Net -260 ml Past Medical History: Medical History[1] LABS: CBC: Recent Labs 01/18/25 0440 WBC 7.1 RBC 4.21 HGB 11.5* HCT 37.2 MCV 88.4 RDW 14.8 PLT 299 BMP: Recent Labs 01/18/25 0440 01/20/25 0612 NA 143 136 K 4.8 3.9 CL 112* 106 CO2 23 23 BUN 16 22* CREATININE 0.70 0.73 GLUCOSE 95 98 CALCIUM 9.0 9.2 ANIONGAP 8 7 LIVER PROFILE: No results for input(s): "AST", "ALT", "BILITOT", "ALKPHOS", "PROT" in the last 72 hours. No lab exists for component: LABALBU PT/INR: No results for input(s): "PROTIME", "INR" in the last 72 hours. CARDIAC ENZYMES: No results for input(s): "TROPONINI" in the last 72 hours. Procalcitonin: No results found for: "PROCAL" COVID-19 PCR: No results for input(s): "COVID19" in the last 72 hours. Objective: Vitals: BP 96/63 (BP Location: Right arm, Patient Position: Sitting) Pulse 84 Temp 36.6 ?C (97.8 ?F) (Temporal) Resp 16 Ht 5' 7" (1.702 m) Wt 169 lb (76.7 kg) SpO2 99% BMI 26.47 kg/m? Pulse Ox: SpO2 Av % Min: 99 % Max: 99 % Supplemental O2: Physical Exam Vitals reviewed. Constitutional: General: She is not in acute distress. Appearance: She is not ill-appearing or toxic-appearing. Cardiovascular: Rate and Rhythm: Normal rate. Pulmonary: Effort: Pulmonary effort is normal. No respiratory distress. Musculoskeletal: General: Deformity (contractures) present. Neurological: Mental Status: She is alert. Comments: Twitches in head/neck generalized non focal Psychiatric: Mood and Affect: Mood normal. Thought Content: Thought content normal. Comments: Thought content normal today Medications: Scheduled PRN Scheduled Meds[2] PRN Meds[3] Continuous Continuous Meds[4] Assessment Data: (LOW: 2x CAT1 or independent historian MOD: 3x CAT1 or 1x CAT3 EXTENSIVE: 3x CAT1 and 1x CAT3) Acute, acute on chronic, unstable/uncontrolled chronic problems/diagnoses: Metabolic encephalopathy, resolving Hypotension resolved Abdominal pain due to constipation Pressure wound on back POA Left shoulder IO access Stable chronic problems affecting care, new non-acute diagnoses: Quadriplegia Alzheimer's dementia HTN GERD Anxiety Plan As a result of the above findings & factors, the following mgmt was pursued: Metabolic encephalopathy resolved Hypertension resolved Abdominal pain due to constipation resolved - currently just awaiting fpc facility placement/return -Labs and vitals have remained stable otherwise - am labs, replace lytes prn - PT/OT/CM/SW - delirium precautions: increase activity - DVT prophylaxis: heparin and encourage ambulation Complexity: Acute illness with systemic symptoms (MOD). Risk: Admission to hospital-level care was considered or occurred (HIGH). Advance Directive: Full Code Anticipated Discharge - Date -medically stable - Location -SNF - Pending the following -improvement of acute medical issue Total time spent (which include face to face and non face to face encounters) : 35 minutes Toxic drug monitoring/narrow therapeutic index drug monitoring : # Drug name : na # Route administered : NA # Method of monitoring : NA Extended Emergency Contact Information Primary Emergency Contact: Blaise Moreno Relation: Oth (more content not included)... [facility] 01-20-2025 History of Presen t illness Narrative Hospitalist Progress Note 01/20/2025 Subjective: Admit Date: 01/14/2025 PCP: Venkat Malin Room#: [id number] A BRIEF HOSPITAL COURSE: 49-year-old patient with past medical history of Major depressive disorder, anxiety, bipolar disorder, Alzheimer's dementia, hypertension, quadriplegia who presented with concerns of altered mentation and low blood pressure from his nursing facility (of note has not had an okay visit for 2 years, now with court-appointed guardian Eric ). Of note patient was originally at [place] emergency department, EMS had a blood pressure with systolic reading of 80-90 when he was taken there. ICU originally paged at [facility] however no acute issues requiring further intensive management. Admitted to the floor where patient continued to receive management of his AMS which is resolving, hypotension which was also resolving after fluids abdominal pain being treated accordingly and pressure wound on back POA being managed as well. Did have to get proximal humerus IO access, Ortho was paged for assistance. Imaging of shoulder was ordered by orthopedic surgery and signed off 01/15. 01/17 [facility] per [facility] request. Await review and response regarding ability to accept. 01/20 still waiting on SNF Interval History: No overnight issues. No major changes. Labs and vitals reviewed.BP a bit soft with SBP in the 90s. Adult diet Regular 24HR INTAKE/OUTPUT: BP a bit soft Intake/Output Summary (Last 24 hours) at 01/20/2025 1046 Last data filed at 01/20/2025 0900 Gross per 24 hour Intake 540 ml Output 800 ml Net -260 ml Past Medical History: Medical History[1] LABS: CBC: Recent Labs 01/18/25 0440 WBC 7.1 RBC 4.21 HGB 11.5* HCT 37.2 MCV 88.4 RDW 14.8 PLT 299 BMP: Recent Labs 01/18/25 0440 01/20/25 0612 NA 143 136 K 4.8 3.9 CL 112* 106 CO2 23 23 BUN 16 22* CREATININE 0.70 0.73 GLUCOSE 95 98 CALCIUM 9.0 9.2 ANIONGAP 8 7 LIVER PROFILE: No results for input(s): "AST", "ALT", "BILITOT", "ALKPHOS", "PROT" in the last 72 hours. No lab exists for component: LABALBU PT/INR: No results for input(s): "PROTIME", "INR" in the last 72 hours. CARDIAC ENZYMES: No results for input(s): "TROPONINI" in the last 72 hours. Procalcitonin: No results found for: "PROCAL" COVID-19 PCR: No results for input(s): "COVID19" in the last 72 hours. Objective: Vitals: BP 96/63 (BP Location: Right arm, Patient Position: Sitting) Pulse 84 Temp 36.6 C (97.8 F) (Temporal) Resp 16 Ht 5' 7" (1.702 m) Wt 169 lb (76.7 kg) SpO2 99% BMI 26.47 kg/m Pulse Ox: SpO2 Av % Min: 99 % Max: 99 % Supplemental O2: Physical Exam Vitals reviewed. Constitutional: General: She is not in acute distress. Appearance: She is not ill-appearing or toxic-appearing. Cardiovascular: Rate and Rhythm: Normal rate. Pulmonary: Effort: Pulmonary effort is normal. No respiratory distress. Musculoskeletal: General: Deformity (contractures) present. Neurological: Mental Status: She is alert. Comments: Twitches in head/neck generalized non focal Psychiatric: Mood and Affect: Mood normal. Thought Content: Thought content normal. Comments: Thought content normal today Medications: Scheduled PRN Scheduled Meds[2] PRN Meds[3] Continuous Continuous Meds[4] Assessment Data: (LOW: 2x CAT1 or independent historian MOD: 3x CAT1 or 1x CAT3 EXTENSIVE: 3x CAT1 and 1x CAT3) Acute, acute on chronic, unstable/uncontrolled chronic problems/diagnoses: Metabolic encephalopathy, resolving Hypotension resolved Abdominal pain due to constipation Pressure wound on back POA Left shoulder IO access Stable chronic problems affecting care, new non-acute diagnoses: Quadriplegia Alzheimer's dementia HTN GERD Anxiety Plan As a result of the above findings & factors, the following mgmt was pursued: Metabolic encephalopathy resolved Hypertension resolved Abdominal pain due to constipation resolved - currently just awaiting fpc facility placement/return -Labs and vitals have remained stable otherwise - am labs, replace lytes prn - PT/OT/CM/SW - delirium precautions: increase activity - DVT prophylaxis: heparin and encourage ambulation Complexity: Acute illness with systemic symptoms (MOD). Risk: Admission to hospital-level care was considered or occurred (HIGH). Advance Directive: Full Code Anticipated Discharge - Date -medically stable - Location -SNF - Pending the following -improvement of acute medical issue Total time spent (which include face to face and non face to face encounters) : 35 minutes Toxic drug monitoring/narrow therapeutic index drug monitoring : # Drug name : na # Route administered : NA # Method of monitoring : NA Extended Emergency Contact Information Primary Emergency Contact: Blaise Moreno Relation: Other Secondary Emergency Contact: Erin Mora Relation: Other Comment: Please note that portions of the note for this encounter were entered using an speech recognition software and may contain errors related to that system including errors in grammar, punctuation, and spelling, as well as words and phrases that may be inappropriate. Best attempts were made to edit/proofread the information prior to note completion. Despite the review of information, some errors may remain. If there are questions related to the information contained within the note please contact the signing provider for clarification. Florencio Henning MD Division of Hospitalist Medicine [facility] [1] Past Medical History: Diagnosis Date Abnormal uterine bleeding 07/19/2017 Anemia Anxiety Bipolar 1 disorder (HCC) Cholecystitis [...] (CMS/HCC) (HCC) Urine retention Vitamin D deficiency [2] baclofen, 10 mg, Oral, TID clonazePAM, 1 mg, Oral, BID ferrous sulfate, 325 mg, Oral, BID folic acid, 1 mg, Oral, Daily gabapentin, 400 mg, Oral, BID guaiFENesin, 600 mg, Oral, Daily heparin, 5,000 Units, SubCUTAneous, 2 times per day lactulose, 15 mL, Oral, Daily magnesium hydroxide, 30 mL, Oral, q24h melatonin, 3 mg, Oral, Nightly mirtazapine, 7.5 mg, Oral, Nightly OXcarbazepine, 300 mg, Oral, BID pantoprazole, 40 mg, Oral, qAM AC sertraline, 75 mg, Oral, Daily tamsulosin, 0.4 mg, Oral, Daily topiramate, 100 mg, Oral, BID [3] PRN medications: acetaminophen OR acetaminophen, bisacodyl, ibuprofen, ondansetron ODT OR ondansetron, polyethylene glycol (PEG) 3350, Propylene Glycol-Glycerin [4] Hospitalist Progress Note 01/19/2025 Subjective: Admit Date: 01/14/2025 PCP: Venkat Malin Room#: [id number] A BRIEF HOSPITAL COURSE: 49-year-old patient with past medical history of Major depressive disorder, anxiety, bipolar disorder, Alzheimer's dementia, hypertension, quadriplegia who presented with concerns of altered mentation and low blood pressure from his nursing facility (of note has not had an okay visit for 2 years, now with court-appointed guardian Eric ). Of note patient was originally at [place] emergency department, EMS had a blood pressure with systolic reading of 80-90 when he was taken there. ICU originally paged at [facility] however no acute issues requiring further intensive management. Admitted to the floor where patient continued to receive management of his AMS which is resolving, hypotension which was also resolving after fluids abdominal pain being treated accordingly and pressure wound on back POA being managed as well. Did have to get proximal humerus IO access, Ortho was paged for assistance. Imaging of shoulder was ordered by orthopedic surgery and signed off 01/15. 01/17 Referral placed to [facility] [place] via [facility] per [facility] request. Await review and response regarding ability to accept. Interval History: No overnight issues. No major changes. Patient still laying in bed without any complaints today. Adult diet Regular 24HR INTAKE/OUTPUT: Intake/Output Summary (Last 24 hours) at 01/19/2025 0921 Last data filed at 01/19/2025 0300 Gross per 24 hour Intake 915 ml Output 950 ml Net -35 ml Past Medical History: Medical History[1] LABS: CBC: Recent Labs 01/17/25 0523 01/18/25 0440 WBC 6.0 7.1 RBC 4.55 4.21 HGB 12.4 11.5* HCT 40.1 37.2 MCV 88.1 88.4 RDW 14.6 14.8 PLT 352 299 BMP: Recent Labs 01/17/25 0523 01/18/25 0440 NA 141 143 K 3.4* 4.8 CL 111* 112* CO2 23 23 BUN 13 16 CREATININE 0.67 0.70 GLUCOSE 98 95 CALCIUM 9.0 9.0 ANIONGAP 7 8 LIVER PROFILE: Recent Labs 01/17/25 0523 AST 21 ALT 16 BILITOT 0.2 ALKPHOS 125 PROT 7.6 PT/INR: No results for input(s): "PROTIME", "INR" in the last 72 hours. CARDIAC ENZYMES: No results for input(s): "TROPONINI" in the last 72 hours. Procalcitonin: No results found for: "PROCAL" COVID-19 PCR: No results for input(s): "COVID19" in the last 72 hours. Objective: Vitals: BP 99/70 (BP Location: Right arm, Patient Position: Sitting) Pulse 83 Temp 36.9 C (98.4 F) (Temporal) Resp 16 Ht 5' 7" (1.702 m) Wt 169 lb 3.2 oz (76.7 kg) SpO2 97% BMI 26.50 kg/m Pulse Ox: SpO2 Av % Min: 97 % Max: 97 % Supplemental O2: Physical Exam Vitals reviewed. Constitutional: General: She is not in acute distress. Appearance: She is not ill-appearing or toxic-appearing. Cardiovascular: Rate and Rhythm: Normal rate. Pulmonary: Effort: Pulmonary effort is normal. No respiratory distress. Musculoskeletal: General: Deformity (contractures) present. Neurological: Mental Status: She is alert. Comments: Twitches in head/neck generalized non focal Psychiatric: Mood and Affect: Mood normal. Thought Content: Thought content normal. Comments: Thought content normal today Medications: Scheduled PRN Scheduled Meds[2] PRN Meds[3] Continuous Continuous Meds[4] Assessment Data: (LOW: 2x CAT1 or independent historian MOD: 3x CAT1 or 1x CAT3 EXTENSIVE: 3x CAT1 and 1x CAT3) Acute, acute on chronic, unstable/uncontrolled chronic problems/diagnoses: Metabolic encephalopathy, resolving Hypotension resolved Abdominal pain due to constipation Pressure wound on back POA Left shoulder IO access Stable chronic problems affecting care, new non-acute diagnoses: Quadriplegia Alzheimer's dementia HTN GERD Anxiety Plan As a result of the above findings & factors, the following mgmt was pursued: - Continues to do well off IV fluids, mentation continues to improve, monitoring hemoglobin transfuse if less than 10 - am labs, replace lytes prn - PT/OT/CM/SW - delirium precautions: increase activity - DVT prophylaxis: heparin and encourage ambulation Complexity: Acute illness with systemic symptoms (MOD). Risk: Admission to hospital-level care was considered or occurred (HIGH). Advance Directive: Full Code Anticipated Discharge - Date -medically stable - Location -SNF - Pending the following -improvement of acute medical issue Total time spent (which include face to face and non face to face encounters) : 35 minutes Toxic drug monitoring/narrow therapeutic index drug monitoring : # Drug name : na # Route administered : NA # Method of monitoring : NA Extended Emergency Contact Information Primary Emergency Contact: Blaise Moreno Relation: Other Secondary Emergency Contact: Eirn Mora Relation: Other Comment: Please note that portions of the note for this encounter were entered using an speech recognition software and may contain errors related to that system including errors in grammar, punctuation, and spelling, as well as words and phrases that may be inappropriate. Best attempts were made to edit/proofread the information prior to note completion. Despite the review of information, some errors may remain. If there are questions related to the information contained within the note please contact the signing provider for clarification. Florencio Henning MD Division of Hospitalist Medicine Acute care [facility] [1] Past Medical History: Diagnosis Date Abnormal uterine bleeding 07/19/2017 Anemia Anxiety Bipolar 1 disorder (HCC) Cholecystitis [...] (CMS/HCC) (HCC) Urine retention Vitamin D deficiency [2] baclofen, 10 mg, Oral, TID clonazePAM, 1 mg, Oral, BID ferrous sulfate, 325 mg, Oral, BID folic acid, 1 mg, Oral, Daily gabapentin, 400 mg, Oral, BID guaiFENesin, 600 mg, Oral, Daily heparin, 5,000 Units, SubCUTAneous, 2 times per day lactulose, 15 mL, Oral, Daily magnesium hydroxide, 30 mL, Oral, q24h melatonin, 3 mg, Oral, Nightly mirtazapine, 7.5 mg, Oral, Nightly OXcarbazepine, 300 mg, Oral, BID pantoprazole, 40 mg, Oral, qAM AC sertraline, 75 mg, Oral, Daily tamsulosin, 0.4 mg, Oral, Daily topiramate, 100 mg, Oral, BID [3] PRN medications: acetaminophen OR acetaminophen, bisacodyl, ibuprofen, ondansetron ODT OR ondansetron, polyethylene glycol (PEG) 3350, Propylene Glycol-Glycerin [4] Hospitalist Progress Note 01/18/2025 Subjective: Admit Date: 01/14/2025 PCP: Venkat Malin Room#: [id number] A BRIEF HOSPITAL COURSE: 49-year-old patient with past medical history of Major depressive disorder, anxiety, bipolar disorder, Alzheimer's dementia, hypertension, quadriplegia who presented with concerns of altered mentation and low blood pressure from his nursing facility (of note has not had an okay visit for 2 years, now with court-appointed guardian Eric ). Of note patient was originally at [place] emergency department, EMS had a blood pressure with systolic reading of 80-90 when he was taken there. ICU originally paged at [facility] however no acute issues requiring further intensive management. Admitted to the floor where patient continued to receive management of his AMS which is resolving, hypotension which was also resolving after fluids abdominal pain being treated accordingly and pressure wound on back POA being managed as well. Did have to get proximal humerus IO access, Ortho was paged for assistance. Imaging of shoulder was ordered by orthopedic surgery and signed off 01/15. 01/17 Referral placed to [facility] via [facility] per [facility] request. Await review and response regarding ability to accept. Interval History: No overnight issues. Case and plan discussed with patient and bedside nurse. All questions answered. States that she needs something for her nerves but just had klonopin. Also having some twithces, states she's getting shocked by an electric unit, and had to hide in a bomb longterm. Otherwise no major complaints today. Adult diet Regular 24HR INTAKE/OUTPUT: Intake/Output Summary (Last 24 hours) at 01/18/2025 0811 Last data filed at 01/17/2025 1829 Gross per 24 hour Intake 720 ml Output -- Net 720 ml Past Medical History: Medical History[1] LABS: CBC: Recent Labs 01/16/25 0602 01/17/25 0523 01/18/25 0440 WBC 5.2 6.0 7.1 RBC 3.94 4.55 4.21 HGB 10.8* 12.4 11.5* HCT 34.6* 40.1 37.2 MCV 87.8 88.1 88.4 RDW 14.7 14.6 14.8 PLT 327 352 299 BMP: Recent Labs 01/16/25 0602 01/17/25 0523 01/18/25 0440 NA 141 141 143 K 3.5 3.4* 4.8 CL 112* 111* 112* CO2 21* 23 23 BUN 14 13 16 CREATININE 0.70 0.67 0.70 GLUCOSE 100 98 95 CALCIUM 8.8 9.0 9.0 ANIONGAP 8 7 8 LIVER PROFILE: Recent Labs 01/16/25 0602 01/17/25 0523 AST 18 21 ALT 14 16 BILITOT 0.2 0.2 ALKPHOS 127 125 PROT 7.0 7.6 PT/INR: No results for input(s): "PROTIME", "INR" in the last 72 hours. CARDIAC ENZYMES: No results for input(s): "TROPONINI" in the last 72 hours. Procalcitonin: No results found for: "PROCAL" COVID-19 PCR: No results for input(s): "COVID19" in the last 72 hours. Objective: Vitals: BP 106/66 (BP Location: Left arm, Patient Position: Lying) Pulse 77 Temp 37.2 C (99 F) (Temporal) Resp 16 Ht 5' 7" (1.702 m) Wt 168 lb 12.8 oz (76.6 kg) SpO2 97% BMI 26.44 kg/m Pulse Ox: SpO2 Av % Min: 97 % Max: 97 % Supplemental O2: Physical Exam Vitals reviewed. Constitutional: General: She is not in acute distress. Appearance: She is not ill-appearing or toxic-appearing. Cardiovascular: Rate and Rhythm: Normal rate. Pulmonary: Effort: Pulmonary effort is normal. No respiratory distress. Musculoskeletal: General: Deformity (contractures) present. Neurological: Mental Status: She is alert. Comments: Twitches in head/neck generalized non focal Psychiatric: Mood and Affect: Mood normal. Comments: Thought content with delirious things Medications: Scheduled PRN Scheduled Meds[2] PRN Meds[3] Continuous Continuous Meds[4] Assessment Data: (LOW: 2x CAT1 or independent historian MOD: 3x CAT1 or 1x CAT3 EXTENSIVE: 3x CAT1 and 1x CAT3) Acute, acute on chronic, unstable/uncontrolled chronic problems/diagnoses: Metabolic encephalopathy, resolving Hypotension resolved Abdominal pain due to constipation Pressure wound on back POA Left shoulder IO access Stable chronic problems affecting care, new non-acute diagnoses: Quadriplegia Alzheimer's dementia HTN GERD Anxiety Plan As a result of the above findings & factors, the following mgmt was pursued: - Continues to do well off IV fluids, mentation continues to improve, monitoring hemoglobin transfuse if less than 10 - am labs, replace lytes prn - PT/OT/CM/SW - delirium precautions: increase activity - DVT prophylaxis: heparin and encourage ambulation Complexity: Acute illness with systemic symptoms (MOD). Risk: Admission to hospital-level care was considered or occurred (HIGH). Advance Directive: Full Code Anticipated Discharge - Date -medically stable - Location -SNF - Pending the following -improvement of acute medical issue Total time spent (which include face to face and non face to face encounters) : 45 minutes Toxic drug monitoring/narrow therapeutic index drug monitoring : # Drug name : na # Route administered : NA # Method of monitoring : NA Extended Emergency Contact Information Primary Emergency Contact: Blaise Moreno Relation: Other Secondary Emergency Contact: Erin Mora Relation: Other Comment: Please note that portions of the note for this encounter were entered using an speech recognition software and may contain errors related to that system including errors in grammar, punctuation, and spelling, as well as words and phrases that may be inappropriate. Best attempts were made to edit/proofread the information prior to note completion. Despite the review of information, some errors may remain. If there are questions related to the information contained within the note please contact the signing provider for clarification. Florencio Henning MD Division of Hospitalist Medicine [facility] [1] Past Medical History: Diagnosis Date Abnormal uterine bleeding 07/19/2017 Anemia Anxiety Bipolar 1 disorder (HCC) Cholecystitis with cholelithiasis SCHEDULED FOR SURGERY TODAT (11/03/2016) Constipated Dementia ([facility]) Dysarthria Dysphagia Elevated liver enzymes Epilepsy (HCC) H/O urinary tract infection High blood cholesterol Hypertension Insomnia Joint pain Major depression Migraine Mononeuropathy Neuromuscular dysfunction of bladder Other migraine, not intractable, with status migrainosus Personal history of traumatic brain injury Pseudobulbar affect PTSD (post-traumatic stress disorder) Quadriplegia (HCC) Quadriplegia, unspecified (CMS/HCC) (HCC) Urine retention Vitamin D deficiency [2] baclofen, 10 mg, Oral, TID clonazePAM, 1 mg, Oral, BID ferrous sulfate, 325 mg, Oral, BID folic acid, 1 mg, Oral, Daily gabapentin, 400 mg, Oral, BID guaiFENesin, 600 mg, Oral, Daily heparin, 5,000 Units, SubCUTAneous, 2 times per day lactulose, 15 mL, Oral, Daily magnesium hydroxide, 30 mL, Oral, q24h melatonin, 3 mg, Oral, Nightly mirtazapine, 7.5 mg, Oral, Nightly OXcarbazepine, 300 mg, Oral, BID pantoprazole, 40 mg, Oral, qAM AC sertraline, 25 mg, Oral, Daily tamsulosin, 0.4 mg, Oral, Daily [3] PRN medications: acetaminophen OR acetaminophen, bisacodyl, ibuprofen, ondansetron ODT OR ondansetron, polyethylene glycol (PEG) 3350, Propylene Glycol-Glycerin [4] Nutrition Assessment Type and Reason for Visit: Initial (DT referral -pressure injury) Nutrition Recommendations/Plan: Continue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 7.0 PT/INR: Recent Labs 01/14/25 1211 PROTIME 11.1 INR 1.0 CARDIAC ENZYMES: No results for input(s): "TROPONINI" in the last 72 hours. Procalcitonin: No results found for: "PROCAL" @RISRSLTSPECIALTY@ Objective: Vitals: BP 116/76 (BP Location: Right arm, Patient Position: Lying) Pulse 73 Temp 36 ?C (96.8 ?F) (Temporal) Resp 16 Ht 5' 7" (1.702 m) Wt 200 lb (90.7 kg) SpO2 100% BMI 31.32 kg/m? Pulse Ox: SpO2 Av % Min: 100 % Max: 100 % Supplemental O2: 01/16/2025 General appearance: No apparent distress, appears stated age, AAOX4 Cardiovascular: S1/S2 heard, RRR Respiratory: Clear to auscultation bilaterally Abdomen: Soft, non-tender, non-distended bowel sounds positive Medications: Continuous Meds[1] Scheduled Meds[2] Assessment Metabolic encephalopathy, resolving Hypotension resolved Abdominal pain due to constipation Pressure wound on back POA Left shoulder IO access Chronic problems Quadriplegia Alzheimer's dementia HTN GERD Anxiety Plan Blood pressure stable off IV fluids now Mental status improving Monitor hemoglobin likely dilutional, transfuse for hemoglobin less than 10 PT, OT Medically stable for discharge -am labs, replace lytes prn -increase activity Diet Adult diet Regular DVT Prophylaxis [] Lovenox, [x] Heparin, [] SCDs, [] Ambulation [] Already on Anticoagulation GI Prophylaxis [] PPI, [] H2 David, [] Carafate, [] Diet/Tube Feeds Code Status Full Code MDM [] Low, [x] Moderate,[] High Patient's risk as above Anticipated Discharge - Date -01/17 - Location - Skilled Facility - Pending the following -placement arrangements Total time spent (which include face to face and non face to face encounters) : 45 minutes Toxic drug monitoring/narrow therapeutic index drug monitoring : # Drug name : # Route administered : # Method of monitoring : Extended Emergency Contact Information Primary Emergency Contact: Blaise Moreno Relation: Other Secondary Emergency Contact: Erin Mora Relation: Other Advance Directive: Full Code Discharge planning: TBD Evy Núñez MD Division of Hospitalist Medicine Inpatient Medical Services/[facility] [1] [2] heparin, 5,000 Units, SubCUTAneous, 2 times per day melatonin, 3 mg, Oral, Nightly [facility] 01-16-2025 Plan of care note Problem: Knowledge Deficit Goal: Patient/family/caregiver demonstrates understanding of disease process, treatment plan, medications, and discharge instructions Outcome: Progressing Problem: Potential for Compromised Skin Integrity Goal: Skin Integrity is Maintained or Improved Outcome: Progressing Goal: Nutritional status is improving Outcome: Progressing Problem: Urinary Incontinence Goal: Perineal skin integrity is maintained or improved Outcome: Progressing [id number] [facility] 01-15-2025 Consult note Associated Order (s): INPATIENT CONSULT TO WOUND CARE PROVIDERS Images from the original note were not included. [facility] Wound Care CONSULT Note Diana Calabrese AGE: 49 y.o. GENDER: female : 1975 Subjective: HISTORY of PRESENT ILLNESS HPI Diana Calabrese is a 49 y.o. female who presents for a wound consult. HPI: 47 y.o. female with PMH per EMR history of Alzheimer's dementia, hypertension, quadriplegia, presents from [facility] facility with concern for altered mental status. Admitted for urosepsis, quadraplegia, H/O TBI, migraines, bipolar and HTN. Wound Care consulted for post head wound. Patient is resting in bed, aide assisted with lifting patient's head to assess ulcer. Treatment applied at time of visit today. PAST MEDICAL HISTORY Medical History[1] PAST SURGICAL HISTORY Surgical History[2] FAMILY HISTORY Family History[3] SOCIAL HISTORY Social History[4] ALLERGIES Allergies[5] MEDICATIONS Medications Ordered Prior to Encounter[6] REVIEW OF SYSTEMS Pertinent items are noted in HPI. Objective: BP 103/60 (BP Location: Right arm, Patient Position: Lying) Pulse 62 Temp 36.3 C (97.4 F) (Temporal) Resp 16 Ht 5' 7" (1.702 m) Wt 200 lb (90.7 kg) SpO2 98% BMI 31.32 kg/m PHYSICAL EXAM General appearance: in no apparent distress, well developed and well nourished, in no respiratory distress and acyanotic, and alert Skin: warm and dry Pulmonary: Normal effort, no respiratory distress, no cyanosis Abdomen: soft, nontender, and nondistended Occiput - 1.0 x 0.8 x 0.1cm - wound bed with part thickness red tissue loss, ajay wound intact with small sanguinous drainage LABS CBC: Lab Results Component Value Date WBC 6.6 01/15/2025 HGB 11.4 (L) 01/15/2025 HCT 37.0 01/15/2025 MCV 89.2 01/15/2025 PLT 309 01/15/2025 BMP: Lab Results Component Value Date NA 140 01/15/2025 K 4.1 01/15/2025 CL 113 (H) 01/15/2025 CO2 21 (L) 01/15/2025 PHOS 4.3 01/14/2025 BUN 12 01/15/2025 CREATININE 0.67 01/15/2025 PT/INR: Lab Results Component Value Date PROTIME 11.1 01/14/2025 INR 1.0 01/14/2025 Prealbumin: No results found for: PREALBUMIN Albumin:No components found for: LABALBU Sed Rate:No results found for: SEDRATE Micro: No components found for: BC Assessment/Plan: Nursing staff to perform dressing change: Occiput - stage 2 pressure injury: -cleanse with NS, apply adaptic, cover with foam dressing daily and PRN. Nutritional support Wound Care to follow Recommend to follow up at [facility] Outpatient wound care center after hospital discharge. Any questions or concerns please secure chat "ACH wound/ostomy". Thank you for the consult! I personally obtained the ludwig and critical portions of the history and physical exam. I reviewed the labs, imaging studies, and electronic medical record. I reviewed the chart documentation and discussed the patient with treatment team members. I have edited the note to reflect my clinical findings and my assessment and plan. Please note, the time of this note does not reflect the time I saw this patient today, but the time of this documentaton. Portions of this note including HPI, ROS, impression/plan, and examination may have been copied forward from admission to today as to provide important historical information essential in contributing to medical decision making. Documentation has been reviewed and edited as necessary to support clinical decision making for today's visit and to reflect my own independent evaluation of this patient. Decision making for today's visit and to reflect my own independent evaluation of this patient. [1] Past Medical History: Diagnosis Date Abnormal uterine bleeding 07/19/2017 Anemia Anxiety Bipolar 1 disorder (HCC) Cholecystitis [...] (CMS/HCC) (HCC) Urine retention Vitamin D deficiency [2] Past Surgical History: Procedure Laterality Date CHOLECYSTECTOMY 11/03/2016 TRACHEOSTOMY [3] No family history on file. [4] Social History Tobacco Use Smoking status: Former Smokeless tobacco: Never Vaping Use Vaping status: Never Used Substance Use Topics Alcohol use: No Drug use: No [5] Allergies Allergen Reactions Alcohol Unknown Avocado Kiwi Extract Morphine Swelling Pineapple Swelling Latex Rash and Swelling [6] No current facility-administered medications on file prior to encounter. Current Outpatient Medications on File Prior to Encounter Medication Sig Dispense Refill acetaminophen (Tylenol) 325 MG tablet Take 650 [...] hr capsule topiramate (Topamax) 200 MG tablet Cosigned by Aleksandr Gustafson DO at 01/20/2025 4:44 PM EDT [employer] Phone: 01-15-2025 Consult note Associated Order (s): INPATIENT CONSULT TO WOUND CARE PROVIDERS Images from the original note were not included. [facility] Wound Care CONSULT Note Diana Calabrese AGE: 49 y.o. GENDER: female : 1975 Subjective: HISTORY of PRESENT ILLNESS HPI Diana Calabrese is a 49 y.o. female who presents for a wound consult. HPI: 47 y.o. female with PMH per EMR history of Alzheimer's dementia, hypertension, quadriplegia, presents from [facility] facility with concern for altered mental status. Admitted for urosepsis, quadraplegia, H/O TBI, migraines, bipolar and HTN. Wound Care consulted for post head wound. Patient is resting in bed, aide assisted with lifting patient's head to assess ulcer. Treatment applied at time of visit today. PAST MEDICAL HISTORY Medical History[1] PAST SURGICAL HISTORY Surgical History[2] FAMILY HISTORY Family History[3] SOCIAL HISTORY Social History[4] ALLERGIES Allergies[5] MEDICATIONS Medications Ordered Prior to Encounter[6] REVIEW OF SYSTEMS Pertinent items are noted in HPI. Objective: BP 103/60 (BP Location: Right arm, Patient Position: Lying) Pulse 62 Temp 36.3 C (97.4 F) (Temporal) Resp 16 Ht 5' 7" (1.702 m) Wt 200 lb (90.7 kg) SpO2 98% BMI 31.32 kg/m PHYSICAL EXAM General appearance: in no apparent distress, well developed and well nourished, in no respiratory distress and acyanotic, and alert Skin: warm and dry Pulmonary: Normal effort, no respiratory distress, no cyanosis Abdomen: soft, nontender, and nondistended Occiput - 1.0 x 0.8 x 0.1cm - wound bed with part thickness red tissue loss, ajay wound intact with small sanguinous drainage LABS CBC: Lab Results Component Value Date WBC 6.6 01/15/2025 HGB 11.4 (L) 01/15/2025 HCT 37.0 01/15/2025 MCV 89.2 01/15/2025 PLT 309 01/15/2025 BMP: Lab Results Component Value Date NA 140 01/15/2025 K 4.1 01/15/2025 CL 113 (H) 01/15/2025 CO2 21 (L) 01/15/2025 PHOS 4.3 01/14/2025 BUN 12 01/15/2025 CREATININE 0.67 01/15/2025 PT/INR: Lab Results Component Value Date PROTIME 11.1 01/14/2025 INR 1.0 01/14/2025 Prealbumin: No results found for: PREALBUMIN Albumin:No components found for: LABALBU Sed Rate:No results found for: SEDRATE Micro: No components found for: BC Assessment/Plan: Nursing staff to perform dressing change: Occiput - stage 2 pressure injury: -cleanse with NS, apply adaptic, cover with foam dressing daily and PRN. Nutritional support Wound Care to follow Recommend to follow up at [facility] Outpatient wound care center after hospital discharge. Any questions or concerns please secure chat "ACH wound/ostomy". Thank you for the consult! I personally obtained the ludwig and critical portions of the history and physical exam. I reviewed the labs, imaging studies, and electronic medical record. I reviewed the chart documentation and discussed the patient with treatment team members. I have edited the note to reflect my clinical findings and my assessment and plan. Please note, the time of this note does not reflect the time I saw this patient today, but the time of this documentaton. Portions of this note including HPI, ROS, impression/plan, and examination may have been copied forward from admission to today as to provide important historical information essential in contributing to medical decision making. Documentation has been reviewed and edited as necessary to support clinical decision making for today's visit and to reflect my own independent evaluation of this patient. Decision making for today's visit and to reflect my own independent evaluation of this patient. [1] Past Medical History: Diagnosis Date Abnormal uterine bleeding 07/19/2017 Anemia Anxiety Bipolar 1 disorder (HCC) Cholecystitis [...] (CMS/HCC) (HCC) Urine retention Vitamin D deficiency [2] Past Surgical History: Procedure Laterality Date CHOLECYSTECTOMY 11/03/2016 TRACHEOSTOMY [3] No family history on file. [4] Social History Tobacco Use Smoking status: Former Smokeless tobacco: Never Vaping Use Vaping status: Never Used Substance Use Topics Alcohol use: No Drug use: No [5] Allergies Allergen Reactions Alcohol Unknown Avocado Kiwi Extract Morphine Swelling Pineapple Swelling Latex Rash and Swelling [6] No current facility-administered medications on file prior to encounter. Current Outpatient Medications on File Prior to Encounter Medication Sig Dispense Refill acetaminophen (Tylenol) 325 MG tablet Take 650 [...] hr capsule topiramate (Topamax) 200 MG tablet Cosigned by Aleksandr Gustafson DO at 01/20/2025 4:44 PM EDT Associated Order(s): IP CONSULT TO ORTHOPAEDIC SURGERY Images from the original note were not included. Ortho Consult Patient: Diana Calabrese Date of : 1975 Acct: [id number] PCP: Venkat Malin Date of Admission: 01/14/2025 Date of Service: Pt seen/examined on 01/14/2025 Chief Complaint: left shoulder pain, concern for glenohumeral arthrotomy History Of Present Illness: This is a 49 y.o. female who initially presented to [place] ED for altered mental status. Patient was then transferred to [facility] for further evaluation and possible ICU admit. While patient was at [facility], 15 gauge IO access was placed in the left proximal humerus. Procedure documentation indicates skin was appropriately prepped with chlorhexidine and that intramedullary placement was confirmed with aspiration of marrow. It was reported that this access was more anterior than typical placement, and therefore there was concern for shoulder arthrotomy. Reportedly, 3 L of fluids and albumin were given to the patient by this access. Ortho was consulted for concern for left shoulder arthrotomy 2/2 anterior placement of the IO. Patient mentation fluctuates, answers some questions and does not respond to others. She endorses pain in her stomach. Patient has past medical history of dementia, hypertension, quadriplegia. She currently lives in a facility. Patient ambulation status: wheelchair bound Antiplatelets/Anticoagulation includes: none Hx from chart and/or Pt. Past Medical History: Medical History[1] Past Surgical History: Surgical History[2] Home Medications: Prior to Admission medications Medication Sig Start Date End Date Taking? Authorizing Provider acetaminophen (Tylenol) 325 MG tablet Take 650 mg by mouth every 6 hours as needed. Historical Provider, baclofen (Lioresal) 10 MG tablet 05/02/23 Historical Provider, bisacodyl (Dulcolax) 10 MG suppository Insert 10 mg into the rectum. Historical Provider, bisacodyl (Dulcolax) 5 MG EC tablet Take 5 mg by mouth daily as needed. Historical Provider, clonazePAM (KlonoPIN) 1 MG tablet 04/07/23 Historical Provider, gabapentin (Neurontin) 400 MG capsule 04/08/23 Historical Provider, lactulose (Chronulac) 10 GM/15ML solution 04/10/23 Historical Provider, magnesium hydroxide (Milk of Magnesia) 400 MG/5ML suspension Take 30 mL by mouth. Historical Provider, omega-3 (Fish Oil) 1000 MG capsule Take 1,000 mg by mouth daily. Historical Provider, omeprazole (PriLOSEC) [address] capsule Take 20 mg by mouth in the morning. Historical Provider, OXcarbazepine (Trileptal) 300 MG tablet 04/11/23 Historical Provider, polyethylene glycol, PEG, 3350 (Glycolax) 17 GM/SCOOP powder Take 17 g by mouth daily. Historical Provider, sertraline (Zoloft) 25 MG tablet Take by mouth daily. Historical Provider, sertraline (Zoloft) 50 MG tablet 05/08/23 Historical Provider, tamsulosin (Flomax) 0.4 MG 24 hr capsule 04/21/23 Historical ProviderMD topiramate (Topamax) 200 MG tablet 04/29/23 Historical Provider, Current Hospital Medications: Current Medications[3] Allergies: Alcohol, Avocado, Kiwi extract, Morphine, Pineapple, and Latex Social History: Social History Socioeconomic History Marital status: Single Spouse name: Not on file Number of children: Not on file Years of education: Not on file Highest education level: Not on file Occupational History Not on file Tobacco Use Smoking status: Former Smokeless tobacco: Never Vaping Use Vaping status: Never Used Substance and Sexual Activity Alcohol use: No Drug use: No Sexual activity: Defer Other Topics Concern Not on file Social History Narrative Not on file Social Drivers of Health Financial Resource Strain: Low Risk [...] min Stress: No Stress Concern Present (07/08/2023) [employer] - Occupational Stress Questionnaire Feeling of Stress : Not at all Social Connections: Unknown (07/08/2023) Social Connection and Isolation Panel [NHANES] Frequency of Communication with Friends and Family: Patient declined Frequency of Social Gatherings with Friends and Family: Patient declined Attends Yazidi Services: Never Active Member of Clubs or [...] in the Last Year: No Family History: Family History[4] Further Family History is noncontributory to this injury. REVIEW OF SYSTEMS: Review of Systems - General ROS: negative for - chills, fatigue, fever, malaise or night sweats Psychological ROS: negative Ophthalmic ROS: negative ENT ROS: negative for - headaches or sore throat Hematological and Lymphatic ROS: negative for - bleeding problems or blood clots Respiratory ROS: no cough, shortness of breath, or wheezing Cardiovascular ROS: no chest pain or dyspnea on exertion Gastrointestinal ROS: negative Musculoskeletal ROS: See HPI Neurological ROS: negative for - bowel and bladder control changes, gait disturbance or numbness/tingling All other systems reviewed and are negative PHYSICAL EXAM: BP 101/62 Pulse 79 Temp 36.8 C (98.3 F) (Oral) Resp 16 Ht 1.702 m (5' 7") Wt 90.7 kg (200 lb) SpO2 99% BMI 31.32 kg/m GENERAL APPEARANCE: Awake and oriented x1. No acute distress, except appropriate to injury. MOOD AND AFFECT: Calm appropriate to situation GAIT AND STATION: Patient is in bed and unable to ambulate at baseline COORDINATION and BALANCE: Patient is quadriplegic Lymphadenopathy: none on examination of the affected extremity(s) Right Upper Extremity: -Radial pulse palpable -No Lymphedema -Skin intact except where noted below Quadriplegic at baseline. Flexion contracture of the elbow, wrist, fingers. these are not passively correctable. All compartments are soft and compressible. Patient endorses diffuse TTP throughout the extremity. No palpable instability, crepitance, or deformity noted. There are no focal areas of exquisite TTP. Unable to formally assess sensation 2/2 patient mentation Left Upper Extremity: -Radial pulse palpable -No Lymphedema -Skin intact except where noted below There is a small puncture wound over the anterior humerus with surrounding ecchymosis. There is no drainage from the site. This is lateral to the palpated glenohumeral joint. There is no apparent extravasation of fluid within the arm. quadriplegic at baseline. Flexion contracture of the elbow, wrist, fingers. these are not passively correctable. All compartments are soft and compressible. Patient endorses diffuse TTP throughout the extremity. There are no focal areas of exquisite TTP, including the shoulder. No palpable instability, crepitance, or deformity noted. Unable to formally assess sensation 2/2 patient mentation Right Lower Extremity: -DP pulse palpable -No Lymphedema -Skin intact except where noted below Quadriplegic at baseline. Patient endorses diffuse TTP over the entire extremity. Patient has equinus contracture of the foot with prominence of the talar head. This causes a small area of overlying erythema, which blanches. All compartments are soft and compresisble no focal areas of exquisite TTP, unable to assess sensation 2/2 patient mentation. No palpable instability, crepitance, or deformity noted. Left Lower Extremity: -DP pulse palpable -No Lymphedema -Skin intact except where noted below Quadriplegic at baseline. Patient endorses diffuse TTP over the entire extremity. Patient has equinus contracture of the foot with prominence of the talar head. This causes a small area of overlying erythema, which blanches. All compartments are soft and compresisble no focal areas of exquisite TTP, unable to assess sensation 2/2 patient mentation. No palpable instability, crepitance, or deformity noted. Labs: CBC: Lab Results Component Value Date WBC 7.3 01/14/2025 RBC 4.89 01/14/2025 BMP: Lab Results Component Value Date GLUCOSE 86 01/14/2025 CO2 25 01/14/2025 BUN 13 01/14/2025 CREATININE 0.76 01/14/2025 CALCIUM 9.1 01/14/2025 PT/INR: Lab Results Component Value Date INR 1.0 01/14/2025 APTT 29.1 01/14/2025 Type and Screen: No results found for: "RH", "LABANTI" CRP: No results found for: "CRP" ESR: No results found for: SEDRATE HgBA1c: No components found for: LABA1C The above labs were reviewed by me. Radiology: The below images were independently reviewed and interpreted with pertinent findings noted below. XR: XR Left Shoulder (01/14/25): No obvious fractures or osseous abnormalities. Osteoarthritis of the glenohumeral joint. No obvious bony path of previous IO access. No soft tissue gas or intra articular gas. Osteopenia. Radiology reports reviewed. ASSESSMENT: 49 y.o. female s/p L proximal humerus IO access PLAN: -No acute surgical intervention. Due to patient baseline mentation and inability to reliably participate in exam, plan for CT left shoulder -Up with assistance, NWB all extremities, patient is quadriplegic at baseline -no prophylactic antibiotics indicated at this time -Orthopaedic surgery will follow for CT results. Please page multi operation machine operator orthopaedic resident for questions or concerns. Angela Quinones MD PGY-2, Orthopaedic Surgery Attestation: The patient was seen and examined on 01/15/25. All relevant radiographs were reviewed and independently interpreted which show no free air within the left shoulder joint. Baseline glenohumeral arthritis. I agree with what is documented above with any changes noted. The plan of care was discussed with the evaluating resident. No surgical intervention required. Follow-up on as-needed basis. Electronically signed by Cheryl Ramirez M.D. 01/15/2025 at 8:37 AM. [1] Past Medical History: Diagnosis Date Abnormal uterine bleeding 07/19/2017 Anemia Anxiety Bipolar 1 disorder (HCC) Cholecystitis [...] (CMS/HCC) (HCC) Urine retention Vitamin D deficiency [2] Past Surgical History: Procedure Laterality Date CHOLECYSTECTOMY 11/03/2016 TRACHEOSTOMY [3] Current Facility-Administered Medications: acetaminophen (Tylenol) tablet 650 mg, 650 mg, Oral, q6h PRN OR acetaminophen (Tylenol) suppository 650 mg, 650 mg, Rectal, q6h PRN, Daja Vogel MD dicyclomine (Bentyl) injection 20 mg, 20 mg, IntraMUSCular, 4x daily, Daja Vogel MD heparin injection 5,000 Units, 5,000 Units, SubCUTAneous, 2 times per day, Daja Vogel MD melatonin tablet 3 mg, 3 mg, Oral, Nightly, Daja Vogel MD ondansetron ODT (Zofran-ODT) disintegrating tablet 4 mg, 4 mg, Oral, q8h PRN OR ondansetron (Zofran) injection 4 mg, 4 mg, IntraVENous, q6h PRN, Daja Vogel MD polyethylene glycol (PEG) 3350 (Miralax) packet 17 g, 17 g, Oral, Daily PRN, Daja Vogel MD [4] No family history on file. documented in this encounter [facility] 01-15-2025 Note Hospitalist Progress Note 01/15/2025 Subjective: Admit Date: 01/14/2025 PCP: Venkat Malin Room#: [id number] A BRIEF HOSPITAL COURSE: 49-year-old patient with past medical history of Major depressive disorder, anxiety, bipolar disorder, Alzheimer's dementia, hypertension, quadriplegia who presented with concerns of altered mentation and low blood pressure from his nursing facility (of note has not had an okay visit for 2 years, now with court-appointed guardian Eric ). Of note patient was originally at [facility] emergency department, EMS had a blood pressure with systolic reading of 80-90 when he was taken there. ICU originally paged at [facility] however no acute issues requiring further intensive management. Admitted to the floor where patient continued to receive management of his AMS which is resolving, his hypotension which was also resolving after fluids abdominal pain being treated accordingly and pressure wound on back POA being managed as well. Did have to get proximal humerus IO access, Ortho was paged for assistance. Imaging of shoulder was ordered by orthopedic surgery and signed off 01/15. Interval History: No overnight issues. Patient only complaining of being chilly this morning and requesting extra blankets. Otherwise no other complaints on review of systems. Adult diet Regular 24HR INTAKE/OUTPUT: Intake/Output Summary (Last 24 hours) at 01/15/2025 0734 Last data filed at 01/14/2025 2101 Gross per 24 hour Intake 2100 ml Output -- Net 2100 ml Past Medical History: Medical History[1] LABS: CBC: Recent Labs 01/14/25 1143 01/15/25 0300 WBC 7.3 6.6 RBC 4.89 4.15 HGB 13.5 11.4* HCT 42.9 37.0 MCV 87.7 89.2 RDW 14.8 14.7 PLT 363 309 BMP: Recent Labs 01/14/25 1143 01/15/25 0300 NA 142 140 K 4.4 4.1 CL 110* 113* CO2 25 21* BUN 13 12 CREATININE 0.76 0.67 GLUCOSE 86 94 CALCIUM 9.1 8.6 ANIONGAP 7 6 LIVER PROFILE: Recent Labs 01/14/25 1143 01/15/25 0300 AST 30 24 ALT 23 18 BILITOT 0.2 0.3 ALKPHOS 150 116 PROT 8.2 7.0 PT/INR: Recent Labs 01/14/25 1211 PROTIME 11.1 INR 1.0 CARDIAC ENZYMES: No results for input(s): "TROPONINI" in the last 72 hours. Procalcitonin: No results found for: "PROCAL" COVID-19 PCR: No results for input(s): "COVID19" in the last 72 hours. Objective: Vitals: BP 103/60 (BP Location: Right arm, Patient Position: Lying) Pulse 62 Temp 36.3 ?C (97.4 ?F) (Temporal) Resp 16 Ht 5' 7" (1.702 m) Wt 200 lb (90.7 kg) SpO2 98% BMI 31.32 kg/m? Pulse Ox: SpO2 Av.9 % Min: 98 % Max: 100 % Supplemental O2: Physical Exam Vitals reviewed. Constitutional: General: She is not in acute distress. Appearance: She is ill-appearing. She is not toxic-appearing. HENT: Head: Normocephalic. Neck: Comments: Trach scar on neck Cardiovascular: Rate and Rhythm: Normal rate. Heart sounds: No friction rub. Pulmonary: Effort: Pulmonary effort is normal. No respiratory distress. Musculoskeletal: Comments: Contractures of extremities Skin: General: Skin is warm. Neurological: Mental Status: She is alert. Psychiatric: Mood and Affect: Mood normal. Behavior: Behavior normal. Medications: Scheduled PRN Scheduled Meds[2] PRN Meds[3] Continuous Continuous Meds[4] Assessment Data: (LOW: 2x CAT1 or independent historian MOD: 3x CAT1 or 1x CAT3 EXTENSIVE: 3x CAT1 and 1x CAT3) Acute, acute on chronic, unstable/uncontrolled chronic problems/diagnoses: Metabolic encephalopathy, resolving Hypotension resolved Abdominal pain due to constipation Pressure wound on back POA Left shoulder IO access Electrolyte derangement including hypomagnesemia, hypophosphatemia Stable chronic problems affecting care, new non-acute diagnoses: Quadriplegia Alzheimer's dementia HTN GERD Anxiety Plan As a result of the above findings & factors, the following mgmt was pursued: - Blood pressure has been stable since yesterday. Patient with continuing improvement with her mentation. -KUB with large amount of stool, adjust bowel regimen and optimize as able -Mentation continues to improve, due to history of Alzheimer's will need continued delirium protocol - am labs, replace lytes prn - PT/OT/CM/SW - delirium precautions: schedule melatonin at bedtime and limit nighttime disturbances - DVT prophylaxis: heparin and encourage ambulation Complexity: Acute illness with systemic symptoms (MOD). Risk: Admission to hospital-level care was considered or occurred (HIGH). Advance Directive: Full Code Anticipated Discharge - Date - 01/16 - Location - [facility] - Pending the following -improvement of acute medical issue Total time spent (which include face to face and non face to face encounters) : 45 minutes Toxic drug monitoring/narrow therapeutic index drug monitoring : # Drug name : na # Route administered : NA # Method of monitoring : NA Extended Nabila (more content not included)... [facility] 01-14-2025 Consult note Associated Order (s): IP CONSULT TO ORTHOPAEDIC SURGERY Images from the original note were not included. Ortho Consult Patient: Diana Calabrese Date of : 1975 Acct: [id number] PCP: Venkat Malin Date of Admission: 01/14/2025 Date of Service: Pt seen/examined on 01/14/2025 Chief Complaint: left shoulder pain, concern for glenohumeral arthrotomy History Of Present Illness: This is a 49 y.o. female who initially presented to [place] ED for altered mental status. Patient was then transferred to [facility] for further evaluation and possible ICU admit. While patient was at [facility], 15 gauge IO access was placed in the left proximal humerus. Procedure documentation indicates skin was appropriately prepped with chlorhexidine and that intramedullary placement was confirmed with aspiration of marrow. It was reported that this access was more anterior than typical placement, and therefore there was concern for shoulder arthrotomy. Reportedly, 3 L of fluids and albumin were given to the patient by this access. Ortho was consulted for concern for left shoulder arthrotomy 2/2 anterior placement of the IO. Patient mentation fluctuates, answers some questions and does not respond to others. She endorses pain in her stomach. Patient has past medical history of dementia, hypertension, quadriplegia. She currently lives in a facility. Patient ambulation status: wheelchair bound Antiplatelets/Anticoagulation includes: none Hx from chart and/or Pt. Past Medical History: Medical History[1] Past Surgical History: Surgical History[2] Home Medications: Prior to Admission medications Medication Sig Start Date End Date Taking? Authorizing Provider acetaminophen (Tylenol) 325 MG tablet Take 650 mg by mouth every 6 hours as needed. Historical Provider, baclofen (Lioresal) 10 MG tablet 05/02/23 Historical Provider, bisacodyl (Dulcolax) 10 MG suppository Insert 10 mg into the rectum. Historical Provider, bisacodyl (Dulcolax) 5 MG EC tablet Take 5 mg by mouth daily as needed. Historical Provider, clonazePAM (KlonoPIN) 1 MG tablet 04/07/23 Historical Provider, gabapentin (Neurontin) 400 MG capsule 04/08/23 Historical Provider, lactulose (Chronulac) 10 GM/15ML solution 04/10/23 Historical Provider, magnesium hydroxide (Milk of Magnesia) 400 MG/5ML suspension Take 30 mL by mouth. Historical Provider, omega-3 (Fish Oil) 1000 MG capsule Take 1,000 mg by mouth daily. Historical Provider, omeprazole (PriLOSEC) [address] capsule Take 20 mg by mouth in the morning. Historical Provider, OXcarbazepine (Trileptal) 300 MG tablet 04/11/23 Historical Provider, polyethylene glycol, PEG, 3350 (Glycolax) 17 GM/SCOOP powder Take 17 g by mouth daily. Historical Provider, sertraline (Zoloft) 25 MG tablet Take by mouth daily. Historical Provider, sertraline (Zoloft) 50 MG tablet 05/08/23 Historical ProviderMD tamsulosin (Flomax) 0.4 MG 24 hr capsule 04/21/23 Historical ProviderMD topiramate (Topamax) 200 MG tablet 04/29/23 Historical Provider, Current Hospital Medications: Current Medications[3] Allergies: Alcohol, Avocado, Kiwi extract, Morphine, Pineapple, and Latex Social History: Social History Socioeconomic History Marital status: Single Spouse name: Not on file Number of children: Not on file Years of education: Not on file Highest education level: Not on file Occupational History Not on file Tobacco Use Smoking status: Former Smokeless tobacco: Never Vaping Use Vaping status: Never Used Substance and Sexual Activity Alcohol use: No Drug use: No Sexual activity: Defer Other Topics Concern Not on file Social History Narrative Not on file Social Drivers of Health Financial Resource Strain: Low Risk [...] min Stress: No Stress Concern Present (07/08/2023) [employer] - Occupational Stress Questionnaire Feeling of Stress : Not at all Social Connections: Unknown (07/08/2023) Social Connection and Isolation Panel [NHANES] Frequency of Communication with Friends and Family: Patient declined Frequency of Social Gatherings with Friends and Family: Patient declined Attends Yazidi Services: Never Active Member of Clubs or [...] in the Last Year: No Family History: Family History[4] Further Family History is noncontributory to this injury. REVIEW OF SYSTEMS: Review of Systems - General ROS: negative for - chills, fatigue, fever, malaise or night sweats Psychological ROS: negative Ophthalmic ROS: negative ENT ROS: negative for - headaches or sore throat Hematological and Lymphatic ROS: negative for - bleeding problems or blood clots Respiratory ROS: no cough, shortness of breath, or wheezing Cardiovascular ROS: no chest pain or dyspnea on exertion Gastrointestinal ROS: negative Musculoskeletal ROS: See HPI Neurological ROS: negative for - bowel and bladder control changes, gait disturbance or numbness/tingling All other systems reviewed and are negative PHYSICAL EXAM: BP 101/62 Pulse 79 Temp 36.8 C (98.3 F) (Oral) Resp 16 Ht 1.702 m (5' 7") Wt 90.7 kg (200 lb) SpO2 99% BMI 31.32 kg/m GENERAL APPEARANCE: Awake and oriented x1. No acute distress, except appropriate to injury. MOOD AND AFFECT: Calm appropriate to situation GAIT AND STATION: Patient is in bed and unable to ambulate at baseline COORDINATION and BALANCE: Patient is quadriplegic Lymphadenopathy: none on examination of the affected extremity(s) Right Upper Extremity: -Radial pulse palpable -No Lymphedema -Skin intact except where noted below Quadriplegic at baseline. Flexion contracture of the elbow, wrist, fingers. these are not passively correctable. All compartments are soft and compressible. Patient endorses diffuse TTP throughout the extremity. No palpable instability, crepitance, or deformity noted. There are no focal areas of exquisite TTP. Unable to formally assess sensation 2/2 patient mentation Left Upper Extremity: -Radial pulse palpable -No Lymphedema -Skin intact except where noted below There is a small puncture wound over the anterior humerus with surrounding ecchymosis. There is no drainage from the site. This is lateral to the palpated glenohumeral joint. There is no apparent extravasation of fluid within the arm. quadriplegic at baseline. Flexion contracture of the elbow, wrist, fingers. these are not passively correctable. All compartments are soft and compressible. Patient endorses diffuse TTP throughout the extremity. There are no focal areas of exquisite TTP, including the shoulder. No palpable instability, crepitance, or deformity noted. Unable to formally assess sensation 2/2 patient mentation Right Lower Extremity: -DP pulse palpable -No Lymphedema -Skin intact except where noted below Quadriplegic at baseline. Patient endorses diffuse TTP over the entire extremity. Patient has equinus contracture of the foot with prominence of the talar head. This causes a small area of overlying erythema, which blanches. All compartments are soft and compresisble no focal areas of exquisite TTP, unable to assess sensation 2/2 patient mentation. No palpable instability, crepitance, or deformity noted. Left Lower Extremity: -DP pulse palpable -No Lymphedema -Skin intact except where noted below Quadriplegic at baseline. Patient endorses diffuse TTP over the entire extremity. Patient has equinus contracture of the foot with prominence of the talar head. This causes a small area of overlying erythema, which blanches. All compartments are soft and compresisble no focal areas of exquisite TTP, unable to assess sensation 2/2 patient mentation. No palpable instability, crepitance, or deformity noted. Labs: CBC: Lab Results Component Value Date WBC 7.3 01/14/2025 RBC 4.89 01/14/2025 BMP: Lab Results Component Value Date GLUCOSE 86 01/14/2025 CO2 25 01/14/2025 BUN 13 01/14/2025 CREATININE 0.76 01/14/2025 CALCIUM 9.1 01/14/2025 PT/INR: Lab Results Component Value Date INR 1.0 01/14/2025 APTT 29.1 01/14/2025 Type and Screen: No results found for: "RH", "LABANTI" CRP: No results found for: "CRP" ESR: No results found for: SEDRATE HgBA1c: No components found for: LABA1C The above labs were reviewed by me. Radiology: The below images were independently reviewed and interpreted with pertinent findings noted below. XR: XR Left Shoulder (01/14/25): No obvious fractures or osseous abnormalities. Osteoarthritis of the glenohumeral joint. No obvious bony path of previous IO access. No soft tissue gas or intra articular gas. Osteopenia. Radiology reports reviewed. ASSESSMENT: 49 y.o. female s/p L proximal humerus IO access PLAN: -No acute surgical intervention. Due to patient baseline mentation and inability to reliably participate in exam, plan for CT left shoulder -Up with assistance, NWB all extremities, patient is quadriplegic at baseline -no prophylactic antibiotics indicated at this time -Orthopaedic surgery will follow for CT results. Please page multi operation machine operator orthopaedic resident for questions or concerns. Angela Quinones MD PGY-2, Orthopaedic Surgery Attestation: The patient was seen and examined on 01/15/25. All relevant radiographs were reviewed and independently interpreted which show no free air within the left shoulder joint. Baseline glenohumeral arthritis. I agree with what is documented above with any changes noted. The plan of care was discussed with the evaluating resident. No surgical intervention required. Follow-up on as-needed basis. Electronically signed by Cheryl Ramirez M.D. 01/15/2025 at 8:37 AM. [1] Past Medical History: Diagnosis Date Abnormal uterine bleeding 07/19/2017 Anemia Anxiety Bipolar 1 disorder (HCC) Cholecystitis [...] (CMS/HCC) (HCC) Urine retention Vitamin D deficiency [2] Past Surgical History: Procedure Laterality Date CHOLECYSTECTOMY 11/03/2016 TRACHEOSTOMY [3] Current Facility-Administered Medications: acetaminophen (Tylenol) tablet 650 mg, 650 mg, Oral, q6h PRN OR acetaminophen (Tylenol) suppository 650 mg, 650 mg, Rectal, q6h PRN, Daja Vogel MD dicyclomine (Bentyl) injection 20 mg, 20 mg, IntraMUSCular, 4x daily, Daja Vogel MD heparin injection 5,000 Units, 5,000 Units, SubCUTAneous, 2 times per day, Daja Vogel MD melatonin tablet 3 mg, 3 mg, Oral, Nightly, Daja Vogel MD ondansetron ODT (Zofran-ODT) disintegrating tablet 4 mg, 4 mg, Oral, q8h PRN OR ondansetron (Zofran) injection 4 mg, 4 mg, IntraVENous, q6h PRN, Daja Vogel MD polyethylene glycol (PEG) 3350 (Miralax) packet 17 g, 17 g, Oral, Daily PRN, Daja Vogel MD [4] No family history on file. [facility] [address] Work Phone: 01-14-2025 Plan of care note Problem: Knowledge Deficit Goal: Patient/family/caregiver demonstrates understanding of disease process, treatment plan, medications, and discharge instructions Outcome: Progressing Problem: Potential for Compromised Skin Integrity Goal: Skin Integrity is Maintained or Improved Outcome: Progressing Goal: Nutritional status is improving Outcome: Progressing Problem: Urinary Incontinence Goal: Perineal skin integrity is maintained or improved Outcome: Progressing [facility] 01-14-2025 Nurse Note Pt arrived from ED, incontinent of urine and stool, cleaned and changed, external cath applied, pt A&O x 1, hallucinating, unable to do admit questions at this time, pt unable to move any extremities, blow in call light requested from [employer], bed alarm on for safety. [facility] 01-14-2025 History and physical note Attending History and Physical Admit Date: 01/14/2025 PCP: Venkat Malin CHIEF COMPLAINT: AMS & Low BP History Obtained From: The patient & EHR HISTORY OF PRESENT ILLNESS: Diana is a 49 y.o. female with with PMH below who got admitted from the ED to the hospital for further evaluation and management of AMS & Low BP. Pt was brought initially from [facility] to [facility] ED with altered mental status, nausea, vomiting, hypotension. skilled nursing staff reports patient was lethargic and disoriented. Patient states that she has had nausea, vomiting, and abdominal pain for the past week Upon arrival to the [facility] ED, the pt was HDS, afebrile, satting well on RA. The initial workup at the ED revealed: - CBC, CMP, UA, Lactate are all unremarkable - EKG showed NSR - XR Lt Shoulder showed: 1. Allowing for limitations, no acute fracture or dislocation. 2. Moderate degenerative changes in the left glenohumeral joint and to lesser extent left acromioclavicular joint. - CTH showed: 1. No acute intracranial abnormality is identified. 2. Redemonstration of extensive bilateral frontoparietal encephalomalacia. At the ED, the pt was given Albumin, LR bolus, and NS bolus. The decision was then made to admit the pt to the hospital for further evaluation and management of Upon interviewing, the pt was lying on the bed in NAD. Pt reports stomachache, nausea & vomiting. Pt denies chest pain, SOB, fever. I attempted calling the legal guardian twice to confirm code status but they didn't citrus picker. Pt was able to communicate why she is in the hospital and expressed interests in being FULL CODE. Past Medical History: Medical History[1] Past Surgical History: Surgical History[2] Social History: Social History Socioeconomic History Marital status: Single Spouse name: Not on file Number of children: Not on file Years of education: Not on file Highest education level: Not on file Occupational History Not on file Tobacco Use Smoking status: Former Smokeless tobacco: Never Vaping Use Vaping status: Never Used Substance and Sexual Activity Alcohol use: No Drug use: No Sexual activity: Defer Other Topics Concern Not on file Social History Narrative Not on file Social Drivers of Health Financial Resource Strain: Low Risk [...] min Stress: No Stress Concern Present (07/08/2023) [employer] - Occupational Stress Questionnaire Feeling of Stress : Not at all Social Connections: Unknown (07/08/2023) Social Connection and Isolation Panel [NHANES] Frequency of Communication with Friends and Family: Patient declined Frequency of Social Gatherings with Friends and Family: Patient declined Attends Yazidi Services: Never Active Member of Clubs or [...] in the Last Year: No Family History: Family History[3] Medications Prior to Admission: Current Medications[4] Allergies: Allergies[5] REVIEW OF SYSTEMS: NEG with pert pos in HPI Vitals: BP 101/62 Pulse 79 Temp 36.8 C (98.3 F) (Oral) Resp 16 Ht 5' 7" (1.702 m) Wt 200 lb (90.7 kg) SpO2 99% BMI 31.32 kg/m BMI Classification: Body mass index is 31.32 kg/m . Pulse Ox: SpO2 Av.1 % Min: 98 % Max: 100 % Supplemental O2: PHYSICAL EXAM: Physical Exam Vitals reviewed. Cardiovascular: Pulses: Normal pulses. Pulmonary: Effort: Pulmonary effort is normal. No respiratory distress. Abdominal: General: Abdomen is flat. Bowel sounds are normal. Tenderness: There is abdominal tenderness. Musculoskeletal: Right lower leg: Edema present. Left lower leg: Edema present. Comments: Diffuse contractures Neurological: Mental Status: She is alert and oriented to person, place, and time. DATA: CBC: Recent Labs 01/14/25 1143 WBC 7.3 RBC 4.89 HGB 13.5 HCT 42.9 MCV 87.7 RDW 14.8 PLT 363 BMP: Recent Labs 01/14/25 1143 NA 142 K 4.4 CL 110* CO2 25 BUN 13 CREATININE 0.76 GLUCOSE 86 CALCIUM 9.1 ANIONGAP 7 LIVER PROFILE: Recent Labs 01/14/25 1143 AST 30 ALT 23 BILITOT 0.2 ALKPHOS 150 PROT 8.2 PT/INR: Recent Labs 01/14/25 1211 PROTIME 11.1 INR 1.0 CARDIAC ENZYMES: No results for input(s): "TROPONINI" in the last 72 hours. I reviewed: [x] laboratory results [x] radiographic results At the time of today's encounter. Pt was advised of the results. Data: Per HPI (LOW: 2x CAT1 or independent historian MOD: 3x CAT1 or 1x CAT3 EXTENSIVE: 3x CAT1 and 1x CAT3) Assessment Discussed management with the ED provider and agree with hospitalization. Acute, acute on chronic, unstable/uncontrolled chronic problems/diagnoses: - AMS (resolving) - Hypotension (resolving) - Abdominal pain - Pressure wound on the back (POA) - Lt Shoulder I/O Stable chronic problems affecting care, new non-acute diagnoses: SEE HPI - Quadriplegia - Alzheimer's dementia - HTN - GERD - Anxiety Plan As a result of the above findings & factors, the following mgmt was pursued: - Mg, Phos, TSH - EKG - Call SNF for Med Rec - TELE - Ortho Consult for shoulder I/O - Wound Care consult - KUB - Bentyl - AM labs, replace lytes prn - PT/OT/CM/SW - Delirium precautions: increase activity and limit nighttime disturbances - DVT prophylaxis: heparin and encourage ambulation Complexity: Acute illness or injury posing a threat to life or body function (HIGH). Risk: Admission to hospital-level care was considered or occurred (HIGH). Advance Directive: Full Code Anticipated Discharge - Date - TBD - Location - TBD - Pending the following - improvement in acute issue leading to hosp Extended Emergency Contact Information Primary Emergency Contact: Blaise Moreno Relation: Other Secondary Emergency Contact: Erin Mora Relation: Other [employer] Diana Calabrese : 1975 Primary Care Physician: Venkat Malin The patient and/or family/surrogate voluntarily agreed to participate in ACP services. Patient s cognitive capacity: FULL Code Status: Full Code ------- TOTAL time spent on H&P: 55 minutes were spent in patient care for this admission (including face to face, chart review, including discussion with ED providers and/or review of their notes, labs and images). TOTAL time spent on ACP: 10 minutes were spent discussing the patient's resuscitation status and end of life care, with patient and/or family/surrogate. Daja Vogel MD Division of Hospitalist Medicine [facility] [1] Past Medical History: Diagnosis Date Abnormal uterine bleeding 07/19/2017 Anemia Anxiety Bipolar 1 disorder (HCC) Cholecystitis [...] (CMS/HCC) (HCC) Urine retention Vitamin D deficiency [2] Past Surgical History: Procedure Laterality Date CHOLECYSTECTOMY 11/03/2016 TRACHEOSTOMY [3] No family history on file. [4] Current Facility-Administered Medications: acetaminophen (Tylenol) tablet 650 mg, 650 mg, Oral, q6h PRN OR acetaminophen (Tylenol) suppository 650 mg, 650 mg, Rectal, q6h PRN, Daja Vogel MD dicyclomine (Bentyl) injection 20 mg, 20 mg, IntraMUSCular, 4x daily, Daja Vogel MD heparin injection 5,000 Units, 5,000 Units, SubCUTAneous, 2 times per day, Daja Vogel MD melatonin tablet 3 mg, 3 mg, Oral, Nightly, Daja Vogel MD ondansetron ODT (Zofran-ODT) disintegrating tablet 4 mg, 4 mg, Oral, q8h PRN OR ondansetron (Zofran) injection 4 mg, 4 mg, IntraVENous, q6h PRN, Daja Vogel MD polyethylene glycol (PEG) 3350 (Miralax) packet 17 g, 17 g, Oral, Daily PRN, Daja Vogel MD Current Outpatient Medications: acetaminophen (Tylenol) 325 MG tablet, Take 650 mg by mouth every 6 hours as needed., Disp: , Rfl: baclofen (Lioresal) 10 MG tablet, , Disp: , Rfl: bisacodyl (Dulcolax) 10 MG suppository, Insert 10 mg into the rectum., Disp: , Rfl: bisacodyl (Dulcolax) 5 MG EC tablet, Take 5 mg by mouth daily as needed., Disp: , Rfl: clonazePAM (KlonoPIN) 1 MG tablet, , Disp: , Rfl: gabapentin (Neurontin) 400 MG capsule, , Disp: , Rfl: lactulose (Chronulac) 10 GM/15ML solution, , Disp: , Rfl: magnesium hydroxide (Milk of Magnesia) 400 MG/5ML suspension, Take 30 mL by mouth., Disp: , Rfl: omega-3 (Fish Oil) 1000 MG capsule, Take 1,000 mg by mouth daily., Disp: , Rfl: omeprazole (PriLOSEC) [address] capsule, Take 20 mg by mouth in the morning., Disp: , Rfl: OXcarbazepine (Trileptal) 300 MG tablet, , Disp: , Rfl: polyethylene glycol, PEG, 3350 (Glycolax) 17 GM/SCOOP powder, Take 17 g by mouth daily., Disp: , Rfl: sertraline (Zoloft) 25 MG tablet, Take by mouth daily., Disp: , Rfl: sertraline (Zoloft) 50 MG tablet, , Disp: , Rfl: tamsulosin (Flomax) 0.4 MG 24 hr capsule, , Disp: , Rfl: topiramate (Topamax) 200 MG tablet, , Disp: , Rfl: [5] Allergies Allergen Reactions Alcohol Unknown Avocado Kiwi Extract Morphine Swelling Pineapple Swelling Latex Rash and Swelling [employer] Work Phone: 01-14-2025 Note Attending History an d Physical Admit Date: 01/14/2025 PCP: Venkat Malni CHIEF COMPLAINT: AMS & Low BP History Obtained From: The patient & EHR HISTORY OF PRESENT ILLNESS: Diana is a 49 y.o. female with with PMH below who got admitted from the ED to the hospital for further evaluation and management of AMS & Low BP. Pt was brought initially from [facility] to [place] ED with altered mental status, nausea, vomiting, hypotension. skilled nursing staff reports patient was lethargic and disoriented. Patient states that she has had nausea, vomiting, and abdominal pain for the past week Upon arrival to the [facility] ED, the pt was HDS, afebrile, satting well on RA. The initial workup at the ED revealed: - CBC, CMP, UA, Lactate are all unremarkable - EKG showed NSR - XR Lt Shoulder showed: 1. Allowing for limitations, no acute fracture or dislocation. 2. Moderate degenerative changes in the left glenohumeral joint and to lesser extent left acromioclavicular joint. - CTH showed: 1. No acute intracranial abnormality is identified. 2. Redemonstration of extensive bilateral frontoparietal encephalomalacia. At the ED, the pt was given Albumin, LR bolus, and NS bolus. The decision was then made to admit the pt to the hospital for further evaluation and management of Upon interviewing, the pt was lying on the bed in NAD. Pt reports stomachache, nausea & vomiting. Pt denies chest pain, SOB, fever. I attempted calling the legal guardian twice to confirm code status but they didn't citrus picker. Pt was able to communicate why she is in the hospital and expressed interests in being FULL CODE. Past Medical History: Medical History[1] Past Surgical History: Surgical History[2]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 Blood culture Site #2 - Assess for effectiveness of treatment [[id number]] Blood, Venous Preliminary result Component Value Blood Culture Blood culture incubation started P 07/08/2023 0655 07/10/2023 0734 Urine culture [[id number]] (Abnormal) Urine, Clean Catch Final result Component Value Urine Culture Normal urogenital alin present 50,000-90,000 CFU/mL Escherichia coli Abnormal 07/07/2023 1852 07/10/2023 0935 Blood culture Site #2 - Suspected Infection [[id number]] (Abnormal) Blood, Venous Final result Component Value Blood Culture Staphylococcus capitis Panic Contamination likely unless additional blood culture sets are found to be positive with the same organism. This is an edited result. Previous organism was Gram-positive cocci on 07/09/2023 at 0049 EST. 07/07/2023 1846 07/10/2023 0935 Blood culture Site #1 - Suspected Infection [[id number]] (Abnormal) Blood, Venous Final result Component Value Blood Culture Staphylococcus warneri Panic Contamination likely unless additional blood culture sets are found to be positive with the same organism. This is an edited result. Previous organism was Gram-positive cocci on 07/08/2023 at 1347 EST. 07/07/2023 1846 07/08/2023 1341 Blood Culture Identification - Anaerobic [[id number]] (Abnormal) Blood, Venous Final result Component Value Coagulase-negative Staphylococcus Detected Abnormal Lines: PIV site ok Radiography/Echo/Other: CT head wo IV contrast [[id number]] Collected: 07/07/231822 Order Status: Completed Updated: 07/07/231828 Narrative: Patient Name: DIANA CALABRESE : 1975 Exam Date/Time: 07/07/2023 18:16 Procedure: CT HEAD WO IV CONTRAST Ordering Provider: DEJESUS NICHOLAS Reason For Exam: AMS EXAMINATION: CT [...] 6:28 PM EST XR chest 1 view [[id number]] Collected: 07/07/231553 Order Status: Completed Updated: 07/07/231556 Narrative: Patient Name: DIANA CALABRESE : 1975 [id number] Exam Date/Time: 07/07/2023 15:57 Procedure: XR CHEST 1 VIEW Ordering Provider: DEJESUS NICHOLAS Reason For Exam: AMS AP CHEST [...] (97.7 F) (Temporal) Resp 16 Ht 5' 8" (1.727 m) Wt 193 lb 12.6 oz [...] Facility - Pending the following - YOKO WATERS DO 07/10/23 9:12 AM Pharmacy Vancomycin Consult Follow-Up Note Non-COMPOSING ROOM SUPERVISOR Patients Current Dosinmg Q12 CREATININE Date Value Ref Range Status 07/10/2023 0.69 0.52 - 1.04 mg/dL Final 07/03/2021 0.72 0.52 - 1.25 mg/dL Final UREA NITROGEN Date Value Ref Range Status 07/10/2023 9 7 - 17 mg/dL Final Auto WBC Date Value Ref Range Status 07/10/2023 6.5 3.6 - 10.7 10*3/uL Final Ht Readings from Last 1 Encounters: 07/07/23 1.727 m (5' 8") Wt Readings from Last 1 Encounters: 07/07/23 [...] Vanc dose. Denies itch/Shortness of breath. Dr Waters/Dr Raya notified. Redness faded 90% within 45 min and fiine minmally raised ,tiny dots scattered face/neck, upper chest. Benadryl 25mg IVP per order Dr Raya. Continues to deny itching/burning. Images from the original note were not included. OCCUPATIONAL THERAPY [facility]'s Name/MRN: Diana Calabrese ([id number]) Date: 07/09/2023 OT orders received and chart reviewed. Per chart review, pt is dependent with ADLs and is bed bound at baseline. Pt not appropriate for OT evaluations. Will complete orders. Ranjana Enriquez OT Images from the original note were not included. PHYSICAL THERAPY [facility] Name/MRN: Diana Calabrese ([id number]) Date: 07/09/2023 Orders received, chart reviewed, and evaluation attempted. Spoke with nursing and patient is bed-bound and is at baseline functional level. Acute PT not indicated at this time. Orders complete. Wallace Napoles PT Department of Family Medicine Daily Progress Note Subjective Chief Complaint (required for billing): Urinary tract infection Pt doing ok today her second blood culture is positive. Dr Raya is not sure if this is acccurate or a contaminant. She is on vanco for now ROS: Review of Systems Objective BP 99/65 Pulse 85 Temp 37.1 C (98.7 F) (Temporal) Resp 16 Ht 5' 8" (1.727 m) Wt 193 lb 12.6 oz [...] Facility - Pending the following - YOKO WATERS DO 07/09/23 9:30 AM Nutrition rescreen completed. Pt referred to RD for poor oral intakes. documented in this encounter [facility] 07-11-2023 Note Formatting of this n ote might be different from the original. Discharge med list transmitted to return back to [facility] via [facility] per TCC request. [facility] 07-11-2023 Note Formatting of this n ote might be different from the original. Discharge med list transmitted to return back to [facility] via [facility] per TCC request. [facility] 07-11-2023 Miscellaneous Notes Discharge med list transmitted to return back to [facility] via [facility] per TCC request. Dc to [facility] this evening at 6:00. [facility] to transport. Ambulance form completed. [facility] message sent the [facility] to notify them of patients return. Left message for patients legal Guardian, Business Insight And Analytics Manager Patrizia to notify him of discharge and the citrus picker time. Report number provided to the bedside nurse. Received message from bedside RN; reports Dr. Waters is ready for DC. 2 [facility] aware. [facility] tasked to send final MAR, DC summary and final updates to [facility]. Received message from Dr. Waters; states patient is now complaining of abdominal pain. CT abdomen ordered. Will plan for discharge later today. Bedside RN and 2 [facility] aware. 1045: TCC section of ERNESTO completed. Noted patient discharge today. Received message from [facility]. Patient is a bed hold and no authorization required to return. Noted patient has Legal Guardian; Business Insight And Analytics Manager Eric Chappell: office, or Cell, . Spoke with Legal Guardian over the phone. Explained role. He is in agreement to return to [facility] when ready. He is aware to anticipate DC today. Facility updated. Will discuss in rounds today. Referral placed to Return [facility] via [facility] per TCC request. Await review and response regarding ability to accept. TCC notified. Care Managment Initial Assessment Date: 07/10/2023 Patient Name: Diana Calabrese : 1975 Patient Information Source of Information: Patient Cognition/Language: Impaired, Other (Comment) (Delayed -TBI) Permission given to speak with patient artists' booking representative/caregiver as indicated: Yes Confirmation of Payer with patient/family: Yes Payer Name: Blaise Moreno [phone], friend, Erin Mora [phone], friend : No Confirmation of Primary Care Physician: Confirmed PCP Name: Venkat Malin Primary Caregiver: Other (Comment) If assistance needed, confirmed caregiver ready, willing and able to care for patient at discharge: Confirmed with: Living Arrangements Current Residence: Number of Floors Number of Entry Steps: Bed/Bath Levels: Facility: [facility] Facility Name: [facility] Plan to Return: Yes Lives with: Other (Comment) Support Systems: Comments (Other) Activities of Daily Living Ambulation: Total Care (Patient is bed bound) Bathing/Dressing: Total Care Elimination/Continence/Toileting: Total Care Feeding: Total Care Who Assists with Activities of Daily Living: [facility] Instrumental Activities of Daily Living Prescription [...] expects to be discharged to: Return to [facility] Discharge Planning Actions: Continue to follow, Prison Facility referral indicated Patient's Choice Rights and [employer] and Collaborative Relationships Disclosed as Indicated for Post-Acute Care: Interdisciplinary Team Engagement: Social Work Referral for: Additional Information: Chart reviewed. Patient admitted to [facility] for treatment of UTI. Blood cultures pending. HX of TBI, Bipolar, Paraplegia. Regular diet. On IV Vancomycin. Met with patient at bedside today. Explained role. Patient informs she is from [facility] and she would like to return there at discharge. HOTEL ATTENDANT tasked to create referral to [facility]. Will need to confirm level of care. DC plan: Return to [facility] Fatuma Palma RN Problem: Knowledge Deficit [...] if this changes. documented in this encounter [facility] 07-11-2023 Note Formatting of this n ote might be different from the original. Dc to [facility] this evening at 6:00. [facility] to transport. Ambulance form completed. [facility] message sent the [facility] to notify them of patients return. Left message for patients legal Guardian, Business Insight And Analytics Manager [place] to notify him of discharge and the citrus picker time. Report number provided to the bedside nurse. [facility] 07-11-2023 Note Formatting of this n ote might be different from the original. [facility] to transport. Ambulance form completed. [facility] message sent the [facility] to notify them of patients return. Left message for patients legal Guardian, Business Insight And Analytics Manager [place] to notify him of discharge and the citrus picker time. Report number provided to the bedside nurse. [facility] 07-11-2023 Note Formatting of this n ote might be different from the original. Received message from bedside RN; reports Dr. Waters is ready for DC. 2 [facility] aware. HOTEL ATTENDANT tasked to send final MAR, DC summary and final updates to [facility]. [facility] 07-11-2023 Note Formatting of this n ote might be different from the original. Received message from bedside RN; reports Dr. Waters is ready for DC. 2 [facility] aware. HOTEL ATTENDANT tasked to send final MAR, DC summary and final updates to [facility]. [facility] [facility] 07-11-2023 Note Formatting of this n ote might be different from the original. Received message from Dr. Waters; states patient is now complaining of abdominal pain. CT abdomen ordered. Will plan for discharge later today. Bedside RN and 2 [facility] aware. 1045: TCC section of ERNESTO completed. [facility] 07-11-2023 Note Formatting of this n ote might be different from the original. Received message from Dr. Waters; states patient is now complaining of abdominal pain. CT abdomen ordered. Will plan for discharge later today. Bedside RN and 2 [facility] aware. 1045: TCC section of ERNESTO completed. [facility] 07-11-2023 Hospital course Narrative Images from the [...] of Alzheimer's dementia, hypertension, quadriplegia, presents from [facility]pc facility with concern for altered mental status. [...] She is returning to [facility] today. SIGNIFICANT DIAGNOSTIC STUDIES: Labs xrays CONSULTANTS: [...] Complexity: follow up within 7-14 calendar days (21409) [] Severe Complexity: follow up within 7 calendar days (30768) FOLLOW UP TESTING, PENDING RESULTS OR REFERRALS AT TRANSITIONAL CARE VISIT: [] Yes [] No PENDING STUDIES: none DISPOSITION: Skilled Facility FACILITY/HOME CARE AGENCY NAME: [facility] Follow up with Dr Malin at [...] DISCHARGE TIME: > 30 minutes SIGNED: YOKO WATERS DO 07/11/2023, 8:54 AM documented in this encounter [facility] 07-11-2023 Note Formatting of this n ote might be different from the original. Noted patient discharge today. Received message from [facility]. Patient is a bed hold and no authorization required to return. Noted patient has Legal Guardian; Business Insight And Analytics Manager Eric Chappell: office, or Cell, . Spoke with Legal Guardian over the phone. Explained role. He is in agreement to return to [facility] when ready. He is aware to anticipate DC today. Facility updated. Will discuss in rounds today. [facility] 07-11-2023 Note Formatting of this n ote might be different from the original. Noted patient discharge today. Received message from [facility]. Patient is a bed hold and no authorization required to return. Noted patient has Legal Guardian; Business Insight And Analytics Manager Eric Chappell: office, or Cell, . Spoke with Legal Guardian over the phone. Explained role. He is in agreement [facility]. He is aware to anticipate DC today. Facility updated. Will discuss in rounds today. [facility] 07-10-2023 Hospital Discharg e suki Da Silva RN - 07/10/2023 7:36 PM EST Continuity of Care Form Patient Name: Diana Calabrese : 1975 Admit date: 07/07/2023 Discharge date: 07-11-23 Code Status Order: Full Code Advance Directives: Y Admitting Physician: Yoko Waters DO PCP: Venkat Malin Discharging Nurse: Jere COFFMAN Discharging Hospital Unit/Room#: B2266/B2-266 B Discharging Unit Emergency Contact: Extended Emergency Contact Information Primary Emergency Contact: GatonathanielBlaise Relation: Other Secondary Emergency Contact: MorganErin cummings Relation: Other Past Surgical History: Past Surgical [...] (97.8 F) (Temporal) Resp 16 Ht 5' 8" (1.727 m) Wt 202 lb (91.6 kg) [...] assistance Toileting Total assistance Feeding Minimal assistance Stationary Equipment Mechanic Total assistance Med Delivery no Wound Care Documentation and Therapy: Elimination: Continence: Bowel: no Bladder: no Urinary Catheter: None Colostomy/Ileostomy/Ileal Conduit: None Date of Last BM: 07/11/23 Intake/Output Summary (Last 24 hours) at 07/10/2023 193 Last data filed at 07/10/2023 0800 Gross [...] all that are sent with patient): 2 nicko maxwell RN SIGNATURE: MANAGEMENT/SOCIAL WORK SECTION Inpatient Status Date: 07-07-2023 Readmission Risk Assessment Score: @READMISSIONRISKDETAILS@ Discharging to Facility/ Agency Name: Return to [facility] Address: [address] [place] [address] Fax: Dialysis Facility (if applicable) Name: Address: Dialysis Schedule: Phone: Fax: Signal Technician/Courtroom Deputy signature: ICIAN SECTION Prognosis: poor Condition at Discharge: stable Rehab Potential (if transferring to Rehab): poor Recommended Labs or Other Treatments After Discharge: none Physician Certification: I certify the above information and transfer of Diana Calabrese is necessary for the continuing treatment of the diagnosis listed and that she requires fpc facility for greater than 30 days. Update Admission H&P: No change in H&P PHYSICIAN SIGNATURE: documented in this encounter [facility] 07-10-2023 Consult note Associated Order (s): PHARMACY TO DOSE VANCO Vancomycin therapy has been discontinued by Dr Pelayo on 07/10/23. Thank you for the consult. Pharmacy signing off for vancomycin dosing. Mayra Cespedes PharmD Date: 07/10/23 Time: 1:29 PM [facility] 07-10-2023 Consult note Associated Order (s): PHARMACY TO DOSE VANCO Vancomycin therapy has been discontinued by Dr Pelayo on 07/10/23. Thank you for the consult. Pharmacy signing off for vancomycin dosing. Mayra Cespedes PharmD Date: 07/10/23 Time: 1:29 PM Pharmacy Note Vancomycin Consult Non-COMPOSING ROOM SUPERVISOR Diana Calabrese is a 47 y.o. year old female ordered vancomycin for bloodstream infection; consult from Dr. Raya to manage therapy. Patient Active Problem List [...] Last 1 Encounters: 07/07/23 1.727 m (5' 8") Wt Readings from Last 1 Encounters: 07/07/23 [...] from the original note were not included. [facility] - Infectious Diseases Attending Consult Note Reason for Consult: "UTI" Bacteremia History of Present Illness: Patient is 47 year old admitted to [facility] because of mentation changes. History from patient [...] or alleviating factors. Consult obtained because of "UTI and positive blood cultures." Past Medical History: Past Medical History: Diagnosis [...] Yoko M Esterle, DO 5 mg at 07/09/23 0640 pantoprazole (ProtoNix) EC tablet 40 mg 40 mg Oral qAM AC Yoko M Esterle, DO 40 mg at 07/09/23 0640 polyethylene glycol (PEG) 3350 (Miralax) packet 17 g 17 g Oral Daily Yoko M Esterle, DO 17 g at 07/08/23 0939 polyethylene glycol (PEG) 3350 (Miralax) packet 17 g 17 g Oral Daily PRN Yoko M Esterle, DO sertraline (Zoloft) tablet 25 mg 25 mg Oral Daily Yoko M Esterle, DO 25 mg at 07/08/23 0938 sertraline (Zoloft) tablet 50 mg 50 mg Oral Daily Yoko M Esterle, DO 50 mg at 07/08/23 0939 sodium chloride 0.9 % infusion 100 mL/hr IntraVENous Continuous Yoko M Esterle, DO 100 mL/hr at 07/08/23 2333 100 mL/hr at 07/08/23 2333 tamsulosin (Flomax) 24 hr capsule 0.4 mg 0.4 mg Oral Daily Yoko M Esterle, DO 0.4 mg at 07/08/23 0938 topiramate (Topamax) tablet 200 mg 200 mg Oral Daily Yoko M Esterle, DO 200 mg at 07/08/23 0938 Allergies: Allergies Allergen Reactions Alcohol Unknown Avocado [...] min Stress: No Stress Concern Present (07/08/2023) [employer] - Occupational Stress Questionnaire Feeling of Stress : Not at all Social Connections: Unknown (07/08/2023) Social Connection and Isolation Panel [NHANES] Frequency of Communication with Friends and Family: Patient refused Frequency of Social Gatherings with Friends and Family: Patient refused Attends Yazidi Services: Never Active Member of Clubs or [...] (99.2 F) Temporal 85 18 98 % 07/08/232026 98/59 37.2 C (99 F) Temporal 83 [...] 3-5 WBC. Micro: No results for input(s): "COVID19" in the last 72 hours. 07/07 Blood [...] time stamp for accounting for open encounter. Prem Raya MD, MACP, FIDSA documented in this encounter [facility] 07-10-2023 Note Formatting of this n ote might be different from the original. Referral placed to Return [facility] via [facility] per TCC request. Await review and response regarding ability to accept. TCC notified. [facility] 07-10-2023 Note Formatting of this n ote might be different from the original. Referral placed to Return [facility] via [facility] per TCC request. Await review and response regarding ability to accept. TCC notified. [facility] 07-10-2023 Note Formatting of this n ote might be different from the original. Care Managment Initial Assessment Date: 07/10/2023 Patient Name: Diana Calabrese : 1975 Patient Information Source of Information: Patient Cognition/Language: Impaired, Other (Comment) (Delayed -TBI) Permission given to speak with patient artists' booking representative/caregiver as indicated: Yes Confirmation of Payer with patient/family: Yes Payer Name: Blaise Moreno [phone], friend, Erin Mora [phone], friend : No Confirmation of Primary Care Physician: Confirmed PCP Name: Venkat Malin Primary Caregiver: Other (Comment) If assistance needed, confirmed caregiver ready, willing and able to care for patient at discharge: Confirmed with: Living Arrangements Current Residence: Number of Floors Number of Entry Steps: Bed/Bath Levels: Facility: [facility] Facility Name: [facility] Plan to Return: Yes Lives with: Other (Comment) Support Systems: Comments (Other) Activities of Daily Living Ambulation: Total Care (Patient is bed bound) Bathing/Dressing: Total Care Elimination/Continence/Toileting: Total Care Feeding: Total Care Who Assists with Activities of Daily Living: [facility] Instrumental Activities of Daily Living Prescription [...] expects to be discharged to: Return to [facility] Discharge Planning Actions: Continue to follow, Prison Facility referral indicated Patient's Choice Rights and [employer] and Collaborative Relationships Disclosed as Indicated for Post-Acute Care: Interdisciplinary Team Engagement: Social Work Referral for: Additional Information: Chart reviewed. Patient admitted to [facility] for treatment of UTI. Blood cultures pending. HX of TBI, Bipolar, Paraplegia. Regular diet. On IV Vancomycin. Met with patient at bedside today. Explained role. Patient informs she is from [facility] and she would like to return there at discharge. HOTEL ATTENDANT tasked to create referral to [facility]. Will need to confirm level of care. DC plan: Return to [facility] Fatuma Palma RN [facility] 07-10-2023 Note Formatting of this n ote might be different from the original. Care Managment Initial Assessment Date: 07/10/2023 Patient Name: Diana Calabrese : 1975 Patient Information Source of Information: Patient Cognition/Language: Impaired, Other (Comment) (Delayed -TBI) Permission given to speak with patient artists' booking representative/caregiver as indicated: Yes Confirmation of Payer with patient/family: Yes Payer Name: Blaise Moreno [phone], friend, Erin Mora [phone], friend : No Confirmation of Primary Care Physician: Confirmed PCP Name: Venkat Malin Primary Caregiver: Other (Comment) If assistance needed, confirmed caregiver ready, willing and able to care for patient at discharge: Confirmed with: Living Arrangements Current Residence: Number of Floors Number of Entry Steps: Bed/Bath Levels: Facility: [facility] Facility Name: [facility] Plan to Return: Yes Lives with: Other (Comment) Support Systems: Comments (Other) Activities of Daily Living Ambulation: Total Care (Patient is bed bound) Bathing/Dressing: Total Care Elimination/Continence/Toileting: Total Care Feeding: Total Care Who Assists with Activities of Daily Living: [facility] Instrumental Activities of Daily Living Prescription [...] expects to be discharged to: Return to [facility] Discharge Planning Actions: Continue to follow, Prison Facility referral indicated Patient's Choice Rights and [employer] and Collaborative Relationships Disclosed as Indicated for Post-Acute Care: Interdisciplinary Team Engagement: Social Work Referral for: Additional Information: Chart reviewed. Patient admitted to [facility] for treatment of UTI. Blood cultures pending. HX of TBI, Bipolar, Paraplegia. Regular diet. On IV Vancomycin. Met with patient at bedside today. Explained role. Patient informs she is from [facility] and she would like to return there at discharge. HOTEL ATTENDANT tasked to create referral to [facility]. Will need to confirm level of care. DC plan: Return to [facility] Fatuma Palma RN [facility] 07-09-2023 Consult note Formatting of th is note is different from the original. Pharmacy Note Vancomycin Consult Non-COMPOSING ROOM SUPERVISOR Diana S Deaver is a 47 y.o. year old female ordered vancomycin for bloodstream infection; consult from Dr. Raya to manage therapy. Patient Active Problem List [...] Last 1 Encounters: 07/07/23 1.727 m (5' 8") Wt Readings from Last 1 Encounters: 07/07/23 87.9 kg (193 lb 12.6 oz) Plan: Will initiate vancomycin 1250 mg IV every 12 hours based on predicted AUC of 481 mg/L.hr . Goal AUC is 400-600 mg/L.hr. Random level will be scheduled for 07/10/2023 @ 06:00. Thank you for the consult. Will continue to follow. [facility] 07-09-2023 Consult note Associated Order (s): IP CONSULT TO INFECTIOUS DISEASES Images from the original note were not included. [facility] - Infectious Diseases Attending Consult Note Reason for Consult: "UTI" Bacteremia History of Present Illness: Patient is 47 year old admitted to [facility] because of mentation changes. History from patient [...] or alleviating factors. Consult obtained because of "UTI and positive blood cultures." Past Medical History: Past Medical History: Diagnosis [...] Yoko M Esterle, DO 5 mg at 07/09/23 0640 pantoprazole (ProtoNix) EC tablet 40 mg 40 mg Oral qAM AC Yoko M Esterle, DO 40 mg at 07/09/23 0640 polyethylene glycol (PEG) 3350 (Miralax) packet 17 g 17 g Oral Daily Yoko M Esterle, DO 17 g at 07/08/23 0939 polyethylene glycol (PEG) 3350 (Miralax) packet 17 g 17 g Oral Daily PRN Yoko M Esterle, DO sertraline (Zoloft) tablet 25 mg 25 mg Oral Daily Yoko M Esterle, DO 25 mg at 07/08/2338 sertraline (Zoloft) tablet 50 mg 50 mg Oral Daily Yoko M Esterle, DO 50 mg at 07/08/23 0939 sodium chloride 0.9 % infusion 100 mL/hr IntraVENous Continuous Yoko M Esterle, DO 100 mL/hr at 07/08/23 2333 100 mL/hr at 07/08/23 2333 tamsulosin (Flomax) 24 hr capsule 0.4 mg 0.4 mg Oral Daily Yoko M Esterle, DO 0.4 mg at 07/08/23 0938 topiramate (Topamax) tablet 200 mg 200 mg Oral Daily Yoko M Esterle, DO 200 mg at 07/08/2338 Allergies: Allergies Allergen Reactions Alcohol Unknown Avocado [...] min Stress: No Stress Concern Present (07/08/2023) [employer] - Occupational Stress Questionnaire Feeling of Stress : Not at all Social Connections: Unknown (07/08/2023) Social Connection and Isolation Panel [NHANES] Frequency of Communication with Friends and Family: Patient refused Frequency of Social Gatherings with Friends and Family: Patient refused Attends Yazidi Services: Never Active Member of Clubs or [...] BP Temp Temp src Pulse Resp SpO2 12/10/23 0312 100/58 36.9 C (98.5 F) Temporal [...] 3-5 WBC. Micro: No results for input(s): "COVID19" in the last 72 hours. 07/07 Blood [...] time stamp for accounting for open encounter. Prem Raya MD, [facility] [place] FIDSA [facility] Work Phone: 07-09-2023 Plan of care note [...] medications per MAR, provide a restful environment. [facility] 07-08-2023 History and physical note Department of Family Medicine Attending History and Physical CHIEF COMPLAINT: AMS Reason for Admission: uti History Obtained From: medical records History of Present Illness Diana Calabrese is a 47 y.o. female with PMH per EMR history of Alzheimer's dementia, hypertension, quadriplegia, [facility] from [facility] facility with concern for altered mental status. [...] min Stress: No Stress Concern Present (07/08/2023) [employer] - Occupational Stress Questionnaire Feeling of Stress : Not at all Social Connections: Unknown (07/08/2023) Social Connection and Isolation Panel [NHANES] Frequency of Communication with Friends and Family: Patient refused Frequency of Social Gatherings with Friends and Family: Patient refused Attends Yazidi Services: Never Active Member of Clubs or [...] (98.5 F) (Temporal) Resp 20 Ht 5' 8" (1.727 m) Wt 193 lb 12.6 oz [...] rocephin Pt/ot Await blood culture results YOKO WATERS DO 07/08/23 9:35 AM [facility] 07-08-2023 History and physical note Department of Family Medicine Attending History and Physical CHIEF COMPLAINT: AMS Reason for Admission: uti History Obtained From: medical records History of Present Illness Diana Calabrese is a 47 y.o. female with PMH per EMR history of Alzheimer's dementia, hypertension, quadriplegia, presents from [facility] facility with concern for altered mental status. [...] min Stress: No Stress Concern Present (07/08/2023) [employer] - Occupational Stress Questionnaire Feeling of Stress : Not at all Social Connections: Unknown (07/08/2023) Social Connection and Isolation Panel [NHANES] Frequency of Communication with Friends and Family: Patient refused Frequency of Social Gatherings with Friends and Family: Patient refused Attends Yazidi Services: Never Active Member of Clubs or [...] (98.5 F) (Temporal) Resp 20 Ht 5' 8" (1.727 m) Wt 193 lb 12.6 oz [...] rocephin Pt/ot Await blood culture results YOKO WATERS DO 07/08/23 9:35 AM documented in this encounter [facility] 07-08-2023 Plan of care note Problem: [...] Recommendations to address these barriers include . [facility] 07-07-2023 Note Formatting of this n ote [...] time. Please reach out if this changes. [facility] Work Phone: 07-07-2023 Note Formatting of this [...] time. Please reach out if this changes. [facility] Work Phone: 07-07-2023 Emergency department Note Bed: 14 Expected date: Expected time: Means of arrival: Comments: Barbara Read RN 07/07/23 1510 [facility] 07-07-2023 Emergency department Note Emergency Department Encounter [facility] ED Patient: Diana Calabrese : 1975 Date of Evaluation: 07/07/2023 ED Provider: Dakotah Dejesus MD Note: I wore an N95 mask and gloves during this encounter. CHIEF COMPLAINT: Altered mental status HPI: Diana Calabrese is a 47 y.o. female with PMH per EMR history of Alzheimer's dementia, hypertension, quadriplegia, presents from [facility] facility with concern for altered mental status. [...] greater than 65, discussed with admitting Dr. Waters, she is comfortable deferring ICU consult, and accepts for telemetry admission for further evaluation and management including antibiotics, patient appropriate for admission at this time. Note: Due to hypotension, ICU consulted, PAYTON Fernando evaluated the patient, MAP currently greater [...] contact the dictating provider for clarification. Dakotah Dejesus MD Acute [facility] Dakotah Dejesus MD 07/07/232049 Dakotah Dejesus MD 07/07/232131 Arrived [place] em[place] from [facility] A[place] per staff, A/0 x3 per EMS, patient A/0 x3, GCS 15, able to speak in slow clear sentences and respond to questions, providing limited pmhx, placed on monitor, continue with plan of care, patient with call light within reach Bed: 14 Expected date: Expected time: Means of arrival: Comments: Barbara Read RN 07/07/23 1510 documented in this encounter [facility] 07-07-2023 Emergency department Triage note Arrived via ems from [facility] [place] AMS per staff, A/0 x3 per EMS, patient A/0 x3, GCS 15, able to speak in slow clear sentences and respond to questions, providing limited pmhx, placed on monitor, continue with plan of care, patient with call light within reach [facility] 07-07-2023 Physician Emergency department Note Emergency Department Encounter [facility] ED Patient: Diana Calabrese : 1975 Date of Evaluation: 07/07/2023 ED Provider: Dakotah Dejesus MD Note: I wore an N95 mask and gloves during this encounter. CHIEF COMPLAINT: Altered mental status HPI: Diana Calabrese is a 47 y.o. female with PMH per EMR history of Alzheimer's dementia, hypertension, quadriplegia, presents from [facility] facility with concern for altered mental status. [...] greater than 65, discussed with admitting Dr. Waters, she is comfortable deferring ICU consult, and accepts for telemetry admission for further evaluation and management including antibiotics, patient appropriate for admission at this time. Note: Due to hypotension, ICU consulted, PAYTON Fernando evaluated the patient, MAP currently greater [...] contact the dictating provider for clarification. Dakotah Dejesus MD [employer] Dakotah Deejsus MD 07/07/232049 Dakotah Dejesus MD 07/07/232131 [facility] 05-09-2023 History of Presen t illness Narrative Images from the original note were not included. General Surgery History and Physical Zi Wright MD, MPH Patient ID: Diana Calabrese [id number] 47 y.o. 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 Malin HPI: Diana Calabrese is a 47 y.o. female who presents with abnormal US of L breast Patient presents today for evaluation of L breast lesion found on exam and screening US. [facility] transporter. Patient [...] anywhere is her chart both paper from [facility] or from EMR. Patient states that she [...] agitation and confusion. Physical Exam: Ht 6' 2" (1.88 m) BMI 28.16 kg/m Physical Exam Exam conducted with a deputy chief executive present. Constitutional: General: She is not in [...] of Surgery AG [facility] Diagnosis Injury of head, initial encounter- Primary Laceration of scalp, initial encounter documented in this encounter [facility] Work Phone: Evaluation noteNo assessment information available [facility] Work Phone: Evaluation note* Diagnosis Mass of lower inner quadrant of left breast- Primary [facility] Diagnosis Mass of lower inner quadrant of left breast [facility] Diagnosis Urinary tract infection- Primary Urinary tract infection, site not specified Urinary tract infection Urinary tract infection, site not specified documented in this encounter [facility] note* Diagnosis Pain in unspecified joint- Primary [facility] Diagnosis Disorientation Other general symptoms Functional quadriplegia (CMS/HCC) (HCC) Functional quadriplegia Hypotension, unspecified hypotension type Hypotension, unspecified hypotension type documented in this encounter [facility] for referral (narrative)No reason for referral information [facility]WAvita [facility] Work Phone: Summary Purpose Family History No Family History Records FoundNo Family History Records FoundNo Family History Records FoundNo Family History Records FoundNo Family History Records FoundNo Family History Records FoundNo Family History Records Found Advance Directives No Advanced Directives Records FoundDocuments on File Type Date Recorded Patient Grinder Gear Expl anation ACP-Advance Directive ACP-Power of Business Insight And Analytics Manager ACP-Power of Business Insight And Analytics Manager 10/02/2020 3:31 PM PA IN [facility]- A Latest Code Status on File Code Status Date Activated Date Inactivated Comments Full Code 11/03/2016 4:21 PM 11/04/2016 7:24 PM Full Code 11/03/2016 10:26 AM 11/03/2016 4:10 PM Documents on File Type Date Recorded Patient Grinder Gear Expl anation Advance Directives and Livin g Will 06/08/2023 2:26 PM Latest Code Status on File Code Status Date Activated Date Inactivated Comments Full Code 07/07/2023 10:13 PM 07/11/2023 9:26 PM Documents on File Type Date Recorded Patient Grinder Gear Expl anation Power of Business Insight And Analytics Manager 01/14/2025 10:25 AM Advance Directives and Livin g Will 06/08/2023 2:26 PM Advance Directives and Livin g Will 01/14/2025 10:25 AM Date Activated Date Inactivated Comments 01/14/2025 11:25 PM 01/20/2025 10:18 PM Date Activated Date Inactivated Comments 07/07/2023 10:13 PM 07/11/2023 9:26 PM Healthcare Agents on File Name Relationship Healthcare Agent Relationship Communication Erin Mora Other Health Care Agent Eric Ba-Patrizia Legal Guardian Health Care Agent Blaise Moreno Other First Alternate Health Care Agent Healthcare Agents on File Name Relationship Healthcare Agent Relationship Communication Erin Mora Other Health Care Agent Eric Halland-Janettsorobert Legal Guardian Health Care Agent Blaise Moreno Other First Alternate Health Care Agent Chief Complaint and Reason for Visit Chief Complaint LABWORK HALFWAY LAB WORK Chief Complaint HALFWAY LABWORK Chief Complaint HALFWAY LABWORK LABWORK Chief Complaint HALFWAY LABWORK HALFWAY LABWORK Chief Complaint LABWORK HALFWAY LABWORK Chief Complaint HALFWAY LABWORK HALFWAY LAB WORK LABWORK Chief Complaint HALFWAY LABWORK HALFWAY LAB WORK LABWORK LABWORK Chief Complaint HALFWAY LABWORK HALFWAY LAB WORK LABWORK LABWORK LABWORK Chief Complaint HALFWAY LABWORK HALFWAY LAB WORK LABWORK LABWORK LABWORK LABWORK Chief Complaint HALFWAY LABWORK HALFWAY LAB WORK LABWORK LABWORK LABWORK LABWORK LABWORK Chief Complaint HALFWAY LAB WOR K LABWORK LABWORK LABWORK LABWORK LABWORK LABWORK Chief Complaint HALFWAY LAB WOR K LABWORK LABWORK LABWORK LABWORK LABWORK LABWORK LABWORK Chief Complaint Admit Date LABWORK June 24, 2024 5:00am HALFWAY LAB WORK July 25 4:00am HALFWAY LAB WORK September 03, 2024 5:00am Chief Complaint Admit Date HALFWAY LAB WORK July 25 4:00am HALFWAY LAB WORK September 03, 2024 5:00am HALFWAY LAB WORK October 24, 2024 4 :00am Chief Complaint Admit Date HALFWAY LAB WORK September 03, 2024 5:00am HALFWAY LAB WORK October 24, 2024 4 :00am LABOWRK December 11, 2024 5:00a m Reason for Referral Specialty Diagnoses / Procedures Referred By Contac t Referred To Contact Radiology Diagnoses Pain in unspecified joint Procedures CT pelvis wo IV contrast Venkat Malin [address] [place] [address] Referral ID Status Reason Start Date Expiration Date V isits Requested Visits Authorized [id number] Authorized 06/07/2022 12/04/2022 1 1 Specialty Diagnoses / Procedures Referred By Contac t Referred To Contact Radiology Diagnoses Pain in unspecified joint Procedures CT lumbar spine wo IV contrast Venkat Malin [address] [place] [address] Referral ID Status Reason Start Date Expiration Date V isits Requested Visits Authorized [id number] Authorized 06/07/2022 12/04/2022 1 1 Additional Source Comments INFORMATION SOURCE (unrecogn ized section and content) DATE CREATED AUTHOR 01/22/2018 [facility] DATE CREATED AUTHOR AUTHOR'S ORGANIZ ATION 01/23/2018 [facility] DATE CREATED AUTHOR AUTHOR'S ORGANIZ ATION 06/20/2018 [facility] DATE CREATED AUTHOR AUTHOR'S ORGANIZ ATION 08/03/2021 [facility] DATE CREATED AUTHOR AUTHOR'S ORGANIZ ATION 11/21/[address] [facility] DATE CREATED AUTHOR AUTHOR'S ORGANIZ ATION 01/26/2025 [facility] DATE CREATED AUTHOR AUTHOR'S ORGANIZ ATION 02/18/2025 [facility] Reason for Visit (unrecogniz ed section and content) Reason Comments Fall Per EMS, patient chris macias out of bed 3ft, from correction, has laceration to back of head, arrives with C-collar. 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 Malin Reason Comments Altered Mental Status Per SNF, A/0 x3 pe r EMS Specialty Diagnoses / Procedures Referred By Contac t Referred To Contact Diagnoses Urinary tract infection Procedures . Yoko Waters M, DO [address] [place] [address] [facility] [address] [place] [address] Referral ID Status Reason Start Date Expiration Date Visits Re quested Visits Authorized [id number] 1 1 Reason Onset Date Comments Other 01/20/2025 Reason Comments Altered Mental Status Specialty Diagnoses / Procedures Referred By Fabian t Referred To Contact Diagnoses Hypotension Disorientation Functional quadriplegia (CMS/HCC) (HCC) Hypotension, unspecified hypotension type Procedures ... Daja Vogel MD [address] [place] [address] Phone: tel: fax: [facility] [address] [place] [id number] Phone: tel: Referral ID Status Reason Start Date Expiration Date Visits Re quested Visits Authorized [id number] 1 1 Scheduled Active and Recently Administ ered Medications (unrecognized section and content) Medication Order 07/01/2021 07/02/2021 07/03/2021 lidocaine-EPINEPHrine 1 %-1:230254 injection 20 mL 20 mL, IntraDERmal, ONCE, On 07/03/21 at 1845, For 1 dose 1845 (Due) Scheduled Medication Order 07/09/2023 07/10/2023 07/11/2023 baclofen (Lioresal) tablet 10 mg 10 mg, Oral, 3 times daily, First dose on Mon07/07/23 at 2215 1004 (Given - Provider: Dena Pelaez RN)1530 (Given - Provider: Dena Pelaez RN)2044 (Given - Provider: Azucena Godfrey, MEGHNA) 1235 (Given - Provider: Tatianna Da Silva, RN)1400 (Not Given - Provider: Tatianna Da Silva, MEGHNA - Reason: Other - Comment: too close to last dose)2204 (Given - Provider: Azucena Godfrey RN) 1013 (Given - Provider: Tatianna Da Silva RN)1534 (Given - Provider: Tatianna Da Silva RN)2100 (Canceled Entry - Provider: Automatic Discharge Provider - Comment: Automatically canceled at discontinue of medication order) clonazePAM (KlonoPIN) tablet 1 mg 1 mg, Oral, 2 times daily, First dose on Mon07/07/23 at 2215 1004 (Given - Provider: Dena Pelaez RN)2043 (Given - Provider: Azucena Godfrey RN) 1235 (Given - Provider: Tatianna Da Silva RN)2203 (Given - Provider: Azucena Godfrey RN) 1014 (Given - Provider: Tatianna Da Silva RN)2100 (Canceled Entry - Provider: Automatic Discharge Provider - Comment: Automatically canceled at discontinue of medication order) enoxaparin (Lovenox) syringe 40 mg 40 mg, SubCUTAneous, Every 24 hours scheduled (Daily), First dose on Mon07/08/23 at 0900, Indication of Use: Prophylaxis-DVT/PE, Indications: Prophylaxis of Venous Thromboembolism 1011 (Given - Provider: Dena Pelaez RN) 1237 (Given - Provider: Tatianna Da Silva RN) 1014 (Given - Provider: Tatianna Da Silva RN) gabapentin (Neurontin) capsule 400 mg 400 mg, Oral, Nightly, First dose on Mon07/07/23 at 2215 2044 (Given - Provider: Azucena Godfrey RN) 2203 (Given - Provider: Azucena Godfrey RN) 2100 [...] at 2215 1004 (Given - Provider: Dena Pelaez RN)3 (Given - Provider: Azucena Godfrey RN) 1235 (Given - Provider: Tatianna Da Silva RN)2203 (Given - Provider: Azucena Godfrey RN) 1014 (Given - Provider: Tatianna Da Silva RN)2100 (Canceled Entry - Provider: Automatic Discharge Provider - Comment: Automatically canceled at discontinue of medication order) pantoprazole (ProtoNix) EC tablet 40 mg 40 mg, Oral, Daily before breakfast, First dose on Mon07/08/23 at 0700, Substituted for omeprazole (Prilosec). Do not crush, chew, or split. 0640 (Given - Provider: Summer Mora RN) 0559 (Given - Provider: Azucena Godfrey, MEGHNA) 0524 (Given - Provider: Azucena Godfrey RN) polyethylene glycol (PEG) 3350 (Miralax) packet 17 g 17 g, Oral, Daily, First dose on 07/08/23 at 0900 1005 (Given - Provider: Dena Pelaez RN) 1200 (Not Given - Provider: Tatianna [...] or chew. 1004 (Given - Provider: Dena Pelaez RN) sertraline (Zoloft) tablet 25 mg 25 mg, Oral, Daily, First dose on 07/08/23 at 0900 1005 (Given - Provider: Dena Pelaez RN) 1236 (Given - Provider: Tatianna Da Silva RN) 1013 (Given - Provider: Tatianna Da Silva RN) sertraline (Zoloft) tablet 50 mg 50 mg, Oral, Daily, First dose on 07/08/23 at 0900 1004 (Given - Provider: Dena Pelaez RN) 1237 (Given - Provider: Tatianna Da Silva RN) 1015 (Given - Provider: Tatianna Da Silva RN) tamsulosin (Flomax) 24 hr capsule 0.4 mg 0.4 mg, Oral, Daily, First dose on 07/08/23 at 0900, Do not crush, chew, or split. 1004 (Given - Provider: Dena Pelaez RN) 1236 (Given - Provider: Tatianna Da Silva RN) 1014 (Given - Provider: Tatianna Da Silva, MEGHNA) topiramate (Topamax) tablet 200 mg 200 mg, Oral, Daily, First dose on 07/08/23 at 0900, Do not crush, chew, or split. 1004 (Given - Provider: Dena Pelaez RN) 1234 (Given - Provider: Tatianna Da Silva RN) 1013 (Given - Provider: Tatianna Da Silva RN) vancomycin IVPB 1250 mg in 250 mL NS (premix) (CANCELED) 1,250 mg, IntraVENous, Administer over 90 Minutes, Every 12 hours, First dose on Mon07/09/23 at 0930, premix bag, Suspected Indication (Select all that apply): Sepsis of Unknown Etiology 1016 (New Bag - Provider: Dena Pelaez RN)1146 (Stopped - Provider: Dena Pelaez RN)2034 (New Bag - Provider: Azucena Godfrey, RN)2204 (Stopped - Provider: Azucena Godfrey, RN) Continuous Medication Order 07/09/2023 07/10/2023 07/11/2023 sodium chloride 0.9 % infusion 100 mL/hr, IntraVENous, Continuous, Starting on Mon07/07/23 at 2215 1002 (New Bag - Provider: Dena Pelaez RN) 1900 (Stopped - Provider: Azcuena Godfrey, MEGHNA) PRN Medication Order 07/09/2023 07/10/2023 [...] hours. 1014 (Given - Provider: Tatianna Da Silva RN) diphenhydrAMINE (BENADryl) injection 25 mg(Linked Group 2) 25 mg, IntraVENous, Every 6 hours PRN, itching, Starting on Mon07/09/23 at 2241 0033 (Given - Provider: Azucena Godfrey RN) diphenhydrAMINE (BENADryl) tablet/capsule 25 mg(Linked Group 2) 25 mg, Oral, Every 6 hours PRN, itching, Starting on 07/09/23 at 2241 0033 (See Alternative - Provider: Azucena Godfrey RN) ondansetron (Zofran) injection 4 mg(Linked Group 3) [...] Mora RN)1843 (See Alternative - Provider: Dena Pelaez RN) 0053 (See Alternative - Provider: Azucena Godfrey RN)1234 (See Alternative - Provider: Tatianna Da Silva RN)1709 (See Alternative - Provider: Tatianna Da Silva RN)2252 (See Alternative - Provider: Azucena Godfrey RN) 1135 (See Alternative - Provider: Tatianna Da Silva, MEGHNA)1534 (See Alternative - Provider: Tatianna Da Silva, MEGHNA) oxyCODONE (Roxicodone) immediate release tablet 5 mg(Linked Group 4) 5 mg, Oral, Every 4 hours PRN, severe pain (7-10), Starting on 07/08/23 at 2316 0640 (Given - Provider: Summer Mora RN)1843 (Given - Provider: Dena Pelaez RN) 0053 (Given - Provider: Azucena Godfrey, MEGHNA)1234 (Given - Provider: Tatianna Da Silva, RN)1709 (Given - Provider: Tatianna Da Silva, RN)2252 (Given - Provider: Azucena Godfrey, MEGHNA) 1135 (Given - Provider: Tatianna Da Silva, RN)1534 (Given - Provider: Tatianna Da Silva, RN) polyethylene glycol (PEG) 3350 (Miralax) packet [...] PRN, itching, Starting on 07/09/23 at 2241 Or diphenhydrAMINE (BENADryl) tablet/capsule 25 mgJump to med 25 mg, Oral, Every 6 hours PRN, itching, Starting on 07/09/23 at 2241 Group 3: ondansetron ODT (Zofran-ODT) disintegrating tablet 4 mgJump to med 4 mg, Oral, Every 8 hours PRN, nausea, vomiting, Starting on Mon07/07/23 at 2213, 1st Line. If inadequate response [...] pain (7-10), Starting on 07/08/23 at 2316 Scheduled Medication Order 01/18/2025 01/19/2025 01/20/2025 baclofen (Lioresal) tablet 10 mg 10 mg, Oral, 3 times daily, First dose on Mon01/17/25 at 2100, Indications: Muscle Spasm 0932 (Given - Provider: Liborio Mendoza RN)1403 (Given - Provider: Liborio Mendoza RN)2106 (Given - Provider: Diane Laguerre RN) 0928 (Given - Provider: Jessica Hernandez RN)1515 (Given - Provider: Jessica Hernandez RN)2139 (Given - Provider: Diane Laguerre RN) 0813 (Given - Provider: Erika Gabriel RN)1451 (Given - Provider: Erika Gabriel RN)2100 (Canceled Entry - Provider: Automatic Discharge Provider - Comment: Automatically canceled at discontinue of medication order) clonazePAM (KlonoPIN) tablet 1 mg 1 mg, Oral, 2 times daily, First dose on Mon01/17/25 at 2100, Indications: Seizures 0932 (Given - Provider: Liborio Mendoza RN)2106 (Given - Provider: Diane Laguerre RN) 0928 (Given - Provider: Jessica Hernandez RN)2139 (Given - Provider: Diane Laguerre RN) 0813 (Given - Provider: Erika Gabriel RN)2100 (Canceled Entry - Provider: Automatic Discharge Provider - Comment: Automatically canceled at discontinue of medication order) ferrous sulfate tablet 325 mg 325 mg, Oral, 2 times daily, First dose on Mon01/17/25 at 1999 0525 (Given - Provider: Diane Laguerre RN)1501 (Given - Provider: Liborio Mendoza RN) 0537 (Given - Provider: Diane Laguerre RN)1515 (Given - Provider: Jessica Hernandez RN) 0556 (Given - Provider: Diane Laguerre RN)1451 (Given - Provider: Erika Gabriel RN) folic acid (Folvite) tablet 1 mg 1 mg, Oral, Daily, First dose on Mon01/17/25 at 1999, Indications: Supplement 0933 (Given - Provider: Liborio Mendoza RN) 0929 (Given - Provider: Jessica Hernandez RN) 0813 (Given - Provider: Erika Gabriel RN) gabapentin (Neurontin) capsule 400 mg 400 mg, Oral, 2 times daily, First dose on Mon01/17/25 at 2100, Indications: Epilepsy, unspecified, not intractable, without status epilepticus 0931 (Given - Provider: Liborio Mendoza RN)2105 (Given - Provider: Diane Laguerre RN) 0928 (Given - Provider: Jessica Hernandez RN)213 (Given - Provider: Diane Laguerre RN) 0814 (Given - Provider: Erika Gabriel RN)2100 (Canceled Entry - Provider: Automatic Discharge Provider - Comment: Automatically canceled at discontinue of medication order) guaiFENesin (Mucinex) 12 hr tablet 600 mg 600 mg, Oral, Daily, First dose on Mon01/17/25 at 1999, Administer with plenty of fluids to ensure proper action. Do not crush, chew, or split., Indications: Congestion 0933 (Given - Provider: Liborio Mendoza RN) 0929 (Given - Provider: Jessica Hernandez RN) 0813 (Given - Provider: Erika Gabriel RN) heparin injection 5,000 Units 5,000 Units, SubCUTAneous, Every 12 hours scheduled (2 times per day), First dose on Mon01/14/25 at 2255 0935 (Given - Provider: Liborio Mendoza RN)210 (Given - Provider: Diane Laguerre RN) 09 (Given - Provider: Jessica Hernandez RN)213 (Given - Provider: Diane Laguerre RN) 0814 (Given - Provider: Erika Gabriel RN)2099 (Canceled Entry - Provider: Automatic Discharge Provider - Comment: Automatically canceled at discontinue of medication order) lactulose (Chronulac) 10 GM/15ML solution 10 g 10 g (15 mL), Oral, Daily, First dose on Mon01/17/25 at 1999, Indications: Constipation 0935 (Given - Provider: Liborio Mendoza RN) 0928 (Given - Provider: Jessica Hernandez RN) 0814 (Given - Provider: Erika Gabriel RN) magnesium hydroxide (Milk of Magnesia) 400 MG/5ML suspension 30 mL 30 mL, Oral, Every 24 hours, First dose on Mon01/17/25 at 1999, Follow dose with 8 oz of water., Indications: Constipation 2104 (Given - Provider: Diane Laguerre RN) 2139 (Given - Provider: Diane Laguerre RN) 1999 (Canceled Entry - Provider: Automatic Discharge Provider - Comment: Automatically canceled at discontinue of medication order) melatonin tablet 3 mg 3 mg, Oral, Nightly, First dose on Mon01/14/25 at 2255 2105 (Given - Provider: Diane Laguerre, MEGHNA) 2139 (Given - Provider: Diane Laguerre RN) 2099 (Canceled Entry - Provider: Automatic Discharge Provider - Comment: Automatically canceled at discontinue of medication order) mirtazapine (Remeron) tablet 7.5 mg 7.5 mg, Oral, Nightly, First dose on Mon01/17/25 at 2099, Indications: Appetite stimulant related to major depressive disorder 2105 (Given - Provider: Diane Laguerre RN) 2139 (Given - Provider: Diane Laguerre RN) 2099 (Canceled Entry - Provider: Automatic Discharge Provider - Comment: Automatically canceled at discontinue of medication order) OXcarbazepine (Trileptal) tablet 300 mg 300 mg, Oral, 2 times daily, First dose on Mon01/17/25 at 2015, Indications: Epilepsy 0526 (Given - Provider: Diane Laguerre, MEGHNA)1500 (Given - Provider: Liborio Mendoza RN) 0537 (Given - Provider: Diane Laguerre RN)1515 (Given - Provider: Jessica Hernandez RN) 0556 (Given - Provider: Diane Laguerre RN)1451 (Given - Provider: Erika Gabriel RN) pantoprazole (ProtoNix) EC tablet 40 mg 40 mg, Oral, Daily before breakfast, First dose on Mon01/18/25 at 0600, Substituted for omeprazole (Prilosec). Do not crush, chew, or split. 0526 (Given - Provider: Diane Laguerre RN) 0537 (Given - Provider: Diane Laguerre RN) 0556 (Given - Provider: Diane Laguerre RN) sertraline (Zoloft) tablet 25 mg (CANCELED) 25 mg, Oral, Daily, First dose on Mon01/17/25 at 2015 0934 (Given - Provider: Liborio Mendoza RN) sertraline (Zoloft) tablet 75 mg 75 mg, Oral, Daily, First dose (after last modification) on Mon01/19/25 at 0900 0928 (Given - Provider: Jessica Hernandez RN) 0948 (Given - Provider: Erika Gabriel RN) tamsulosin (Flomax) 24 hr capsule 0.4 mg 0.4 mg, Oral, Daily, First dose on Mon01/17/25 at 2000, Do not crush, chew, or split., Indications: Bladder spasms 0933 (Given - Provider: Liborio Mendoza RN) 0928 (Given - Provider: Jessica Hernandez RN) 0813 (Given - Provider: Erika Gabriel RN) topiramate (Topamax) tablet 100 mg 100 mg, Oral, 2 times daily, First dose on Mon01/18/25 at 1145, Do not crush, chew, or split. 1402 (Given - Provider: Liborio Mendoza RN - Comment: pt sleeping)2106 (Given - Provider: Diane Laguerre RN) 0929 (Given - Provider: Jessica Hernandez RN)2140 (Given - Provider: Diane Laguerre RN) 0814 (Given - Provider: Erika Gabriel RN)2100 (Canceled Entry - Provider: Automatic Discharge Provider - Comment: Automatically canceled at discontinue of medication order) PRN Medication Order 01/18/2025 01/19/2025 01/20/2025 acetaminophen (Tylenol) suppository 650 mg(Linked Group 1) 650 mg, Rectal, Every 6 hours PRN, mild pain (1-3), fever, For temp greater than 100.4 F (38 C), Starting on Mon01/14/25 at 2251, Administer if oral route cannot be used. Maximum dose of acetaminophen is 4000 mg from all sources in 24 hours. 1402 (See Alternative - Provider: Liborio Mendoza, EMGHNA) acetaminophen (Tylenol) tablet 650 mg(Linked Group 1) 650 mg, Oral, Every 6 hours PRN, mild pain (1-3), fever, For temp greater than 100.4 F (38 C), Starting on Mon01/14/25 at 2251, Maximum dose of acetaminophen is 4000 mg from all sources in 24 hours. 1402 (Given - Provider: Liborio Mendoza, MEGHNA) bisacodyl (Dulcolax) EC tablet 5 mg 5 mg, Oral, Daily PRN, constipation, Starting on Mon01/17/25 at 1759, Do not give within 1 hour of antacids, milk, or dairy products. Do not crush, chew, or split., Indications: Constipation ibuprofen tablet 800 mg 800 mg, Oral, Every 8 hours PRN, mild pain (1-3), Starting on Mon01/17/25 at 1759, Indications: Pain, Encourage 6-8 onces of fluid to minimize possible GI irritation ondansetron (Zofran) injection 4 mg(Linked Group 2) 4 mg, IntraVENous, Every 6 hours PRN, nausea, vomiting, Starting on Mon01/14/25 at 2251, 1st Line. Give IV if patient is unable to take orally. If inadequate response within 60 minutes, proceed to next-line agent or contact provider if no further options ordered. ondansetron ODT (Zofran-ODT) disintegrating tablet 4 mg(Linked Group 2) 4 mg, Oral, Every 8 hours PRN, nausea, vomiting, Starting on Mon01/14/25 at 2251, 1st Line. If inadequate response within 60 minutes, proceed to next-line agent or contact provider if no further options ordered. Patient should allow tablet to dissolve on tongue. Do not remove from blister pack until just before administering. polyethylene glycol (PEG) 3350 (Miralax) packet 17 g 17 g, Oral, Daily PRN, constipation, Starting on Mon01/14/25 at 2251, 1st line for treatment of constipation - give scheduled if no bowel movement in past 24 hours. Propylene Glycol-Glycerin (Artificial tears) 1-0.3 % solution 1 drop 1 drop, Both Eyes, Every 4 hours PRN, dry eyes, Instill 1 drop in both eyes every 4 hours as needed for dry eyes, Starting on Mon01/17/25 at 1842 0929 (Given - Provider: Jessica Hernandez RN) Linked Groups Order Group 1: acetaminophen (Tylenol) tablet 650 mgJump to med 650 mg, Oral, Every 6 hours PRN, mild pain (1-3), fever, For temp greater than 100.4 F (38 C), Starting on Mon01/14/25 at 2251, Maximum dose of acetaminophen is 4000 mg from all sources in 24 hours. Or acetaminophen (Tylenol) suppository 650 mgJump to med 650 mg, Rectal, Every 6 hours PRN, mild pain (1-3), fever, For temp greater than 100.4 F (38 C), Starting on Mon01/14/25 at 2251, Administer if oral route cannot be used. Maximum dose of acetaminophen is 4000 mg from all sources in 24 hours. Group 2: ondansetron ODT (Zofran-ODT) disintegrating tablet 4 mgJump to med 4 mg, Oral, Every 8 hours PRN, nausea, vomiting, Starting on Mon01/14/25 at 2251, 1st Line. If inadequate response within 60 minutes, proceed to next-line agent or contact provider if no further options ordered. Patient should allow tablet to dissolve on tongue. Do not remove from blister pack until just before administering. Or ondansetron (Zofran) injection 4 mgJump to med 4 mg, IntraVENous, Every 6 hours PRN, nausea, vomiting, Starting on Mon01/14/25 at 2251, 1st Line. Give IV if patient is unable to take orally. If inadequate response within 60 minutes, proceed to next-line agent or contact provider if no further options ordered. Care Teams (unrecognized sec tion and content) Team Status: Inactive Member Role Status Dates Venkat HONEYCUTT Attending Provider Active Team Status: Inactive Member Role Status Dates Venkat HONEYCUTT Attending Provider, Referring Provi yevgeniy Active Team Status: Active Member Role Status Dates Venkat HONEYCUTT Attending Provider Active Hospital Social Worker Relationship Specialty Start Date End Date Yoko Waters, DO [address] [place], [place] [id number] PCP - General 11/02/16 Team Status: Inactive Member Role Status Dates Venkat Malin Attending Provider Active Hospital Social Worker Relationship Specialty Start Date End Date Venkat Malin [address] [place] [phone] PCP - General Internal Medicine 06/03/22 Hospital Social Worker Relationship Specialty Start Date End Date Venkat Malin [address] [place] [phone] PCP - General Internal Medicine 06/03/22 Hospital Social Worker Relationship Specialty Start Date End Date Venkat Malin [address] [place] [phone] PCP - General Internal Medicine 06/03/22 Hospital Social Worker Relationship Specialty Start Date End Date Venkat Malin [address] [place] [phone] PCP - General Internal Medicine 06/03/22 Team Status: Active Member Role Status Dates Venkat HONEYCUTT Attending Provider Active Sta rt: June 24, 2024 Team Status: Inactive Member Role Status Dates Venkat HONEYCUTT Attending Provider Active Sta rt: July 25, 2024 End: July 25, 2024 Venkat HONEYCUTT Referring Provider Active Sta rt: July 25, 2024 End: July 25, 2024 Team Status: Inactive Member Role Status Dates Venkat HONEYCUTT Attending Provider Active Sta rt: September 03, 2024 End: September 03, 2024 Team Status: Inactive Member Role Status Dates Venkat HONEYCUTT Attending Provider Active Sta rt: October 24, 2024 End: October 24, 2024 Venkat HONEYCUTT Referring Provider Active Sta rt: October 24, 2024 End: October 24, 2024 Team Status: Inactive Member Role Status Dates Venkat HONEYCUTT Attending Provider Active Sta rt: December 11, 2024 End: December 11, 2024 Hospital Social Worker Relationship Specialty Start Date End Date Venkat Malin [address] [place] [phone] PCP - General Internal Medicine 06/03/22 Hospital Social Worker Relationship Specialty Start Date End Date Venkat Malin [address] [place] [phone] PCP - General Internal Medicine 06/03/22 Goals (unrecognized section and content) Goals may be documented in a n alternate sectionGoals may be documented in an alternate sectionGoals may be documented in an alternate sectionGoals may be documented in an alternate sectionGoals may be documented in an alternate sectionGoals may be documented in an alternate sectionGoals may be documented in an alternate sectionGoals may be documented in an alternate sectionGoals may be documented in an alternate sectionGoals may be documented in an alternate sectionGoals may be documented in an alternate sectionGoals may be documented in an alternate sectionGoals may be documented in an alternate sectionGoals may be documented in an alternate sectionGoals may be documented in an alternate sectionGoals may be documented in an alternate sectionGoals may be documented in an alternate sectionGoals may be documented in an alternate section FOR RECORDS PERTAINING TO PATIENTS WHO ARE [...] BE BASED ON THE PRIMARY CLINICAL RECORDS. [facility] [employer] [facility]. provides no warranty or guarantee of the accuracy or completeness of information in this document.
[2025-02-21 08:20] LABS: Hematocrit 44.0 % (37-47); Hemoglobin 13.5 g/dL (12.0-15.0); Mean Corp Hgb Conc 30.7 g/dL (32-36); Mean Corpuscular Volume 89.4 fL (81-99); Mean Platelet Vol. 11.2 fl (6.2-12.0); Platelet Count 325 K/mm3 (150-450); RBC Distribution Width CV 14.8 % (11.6-14.6); RBC Distribution Width SD 48.7 fl (35.1-43.9); Red Blood Count 4.92 M/mm3 (4.2-5.4); White Blood Count 7.4 K/mm3 (4.4-11.0)
[2025-02-21 08:38] LABS: AST(SGOT) 19 U/L (<=31); Alanine Aminotransfer ALT/SGPT 19 U/L (<=34); Albumin, Serum 3.4 g/dL (3.5-5.0); Alkaline Phosphatase 150 U/L (35-104); Anion Gap 12 (5-15); BUN 19 mg/dL (4-19); BUN/Creat Ratio 25.3 RATIO (10-20); Calcium,Total 9.3 mg/dL (7.6-11.0); Carbon Dioxide 23.0 mmol/L (21.0-32.0); Chloride 105 mmol/L (98-108); Globulin 4.5 g/dL (2.2-4.2); Glucose 86 mg/dL (70-99); Potassium 3.7 mmol/L (3.3-5.1)
== END ==
LOC: OLS.SANC 05:00
PROVIDERS: Visit Provider Internal Medicine
DX: D64.9 Anemia, unspecified (principal); F03.90 Unspecified dementia, unspecified severity, without behavioral disturbance, psychotic disturbance, mood disturbance, and anxiety; E11.9 Type 2 diabetes mellitus without complications; I10 Essential (primary) hypertension
CPT/HCPCS: 36415; 80053; 85027

== ENCOUNTER → 2025-04-10 | Outpatient (REF) | payer MEDICAID, SELFPAY ==
--- OUTSIDE RECORDS SUMMARY | 2025-04-10 04:52 | XMS RPT_ITS | CCD ---
Author Organization [facility] Care Team Providers Care Crystalizer Tender Name Role Phone ELVER QUINONES Unavailable Unavailable JONI, ELVER J Unavailable Unavailable Joni, Elver Unavailable Unavailable Esterle, Yoko Unavailable Unavailable Esterle, Yoko Unavailable Unavailable Aamir, Maurice Unavailable Unavailable Esterle DO, Yoko M Primary Care Provider Venkat Malin Primary Care Provider Venkat Malin Primary Care Provider [phone] Venkat Melo Attending Provider Unavailab le Katsaros Venkat HONEYCUTT Referring Provider Unavailab le Katsaros OLSVenkat Attending Provider Unavailab le Katsaros OLSVenkat Referring Provider Unavailab le Katsaros OLS, Venkat Attending Provider Unavailab le Katsaros YINKA, Venkat Referring Provider Unavailab le KATSAROSVENKAT Primary Care Unavailable DAJA VOGEL Admitting Unavailable CHERYL RAMIREZ Consulting Unavailable FLORENCIO HENNING Attending Unavailable Katsaros OLS, Venkat Attending Unavailable Katsaros OLS, Venkat Attending Unavailable Katsaros OLS, Venkat Attending Unavailable Katsaros Venkat HONEYCUTT Attending Unavailable Katsaros Venkat HONEYCUTT Referring Unavailable Katsaros OLSVenkat Attending Unavailable Katsaros OLS, Venkat Attending Unavailable [...] reactions to drug (disorder) 7 Rash, Swelling [facility] Repository (10 sources) morphine; Translations: [MORPHINE] Drug Allergy 7 Swelling [facility] Repository (10 sources) pineapple flavor; Translations: [PINEAPPLE] Drug Allergy 7 Swelling [facility] Repository (1 source) avocado allergenic extract Drug Allergy 1 [facility] (9 sources) Alcohol Propensity to adverse reactions to drug 7 Unknown [facility] (8 sources) avocado oil Drug Allergy 1 [facility] [employer] (8 sources) Kiwi fruit Allergy to substance 3 [facility] [employer] NEGATED: Highlighted row has been ruled out! (1 source) Other Propensity to adverse reactions 1 [facility] Work Phone: Medications Current Medications Medication Drug [...] mg/ml ophthalmic solution (3 sources) Plasma Volume Arbitrator, Non-Standardize d Chemical Allergen Artificial Tears ophthalmic solution Administer 1 drop into both eyes as needed (Instill 1 drop in both eyes every 4 hours as needed). Active dextromethorphan hydrobromide 20 mg / quiNIDine sulfate 10 mg oral capsule (1 source) Antiarrhythmic, Uncompetitive J-ondgxb-F-aspa rtate Receptor Antagonist, Cytochrome P450 2D6 Inhibitor, [...] 650 mg take 2 tablets by mo ut every six hours as needed for fever and pain acetaminophen (Tylenol) 325 MG tablet Take 650 mg by mouth every 6 hours as needed for fever or mild pain (1-3). Active 20 ml albumin human, group home 250 mg/ml injection (4 sources) Human Serum [...] Mon07/07/23 at 2215 take 1 capsule by [facility] three times daily gabapentin (NEURONTIN) 300 MG [...] mouth. Active 0.5 ml heparin sodium, porcine 54669 unt/ml prefilled syringe (2 sources) Unfractionated Heparin, [...] Start: 04-11-2023 take 1 tablet by arlyn th twice daily OXcarbazepine (Trileptal) 300 MG tablet [...] crush, chew, or split. polyethylene glycol 3350 07536 mg powder for oral solution (15 sources) [...] psychotic disturbance, mood disturbance, and anxiety] Onset: 03-12-2025 Chronic Diabetes mellitus without complication (1 source) Type 2 diabetes mellitus without complications; Translations: [Type 2 diabetes mellitus without complications] Onset: 03-12-2025 Chronic Disorders of lipid metabolism (1 source) Pure hypercholesterolemi a, unspecified; Translations: [Pure hypercholesterolemi a, unspecified] Onset: 07-05-2024 Chronic Essential hypertension (2 sources) Essential (primary) hypertension; Translations: [Essential (primary) hypertension] [...] unspecified; Translations: [Disorientation, unspecified] Onset: 01-14-2025 Episodic Unclassified (1 source) Unknown / UNK(Unknown) Onset: [...] 04-10-2024 Episodic Other aftercare (2 sources) Other terminal makeup operator (current) drug therapy; Translations: [Other terminal makeup operator (current) drug therapy] Onset: 07-05-2024 Episodic Other [...] Test Name Value Interpretation Reference Range Facility Comprehensive Metabolic Prof [facility] 02-21-2025 Albumin [Mass/Vol] 3.4 g/dL Low 3.5-5.0 [facility] Comment on above: Order Comment: 302.1 Performed By: #### L 500.4050, L100.0500 #### [facility] [address] [address] Albumin/Globulin [Mass ratio] 0.8 {ratio} Low 0.9-2.4 [facility] Comment on above: Order Comment: 302.1 Performed By: #### L 500.4050, L100.0500 #### [facility] [address] [address] ALK PHOS 150 U/L High 35-104 [facility] Comment on above: Order Comment: 302.1 Performed By: #### L 500.4050, L100.0500 #### [facility] [address] [address] ALT [Catalytic activity/Vol] 19 U/L Normal <=34 [facility] Comment on above: Order Comment: 302.1 Performed By: #### L 500.4050, L100.0500 #### [facility] [address] [place], [address] AST [Catalytic activity/Vol] 19 U/L Normal <=31 [facility] Comment on above: Order Comment: 302.1 Performed By: #### L 500.4050, L100.0500 #### [facility] [address] [place], [address] Bilirubin [Mass/Vol] 0.25 mg/dL Normal 0.00-1.30 [facility] Comment on above: Order Comment: 302.1 Performed By: #### L 500.4050, L100.0500 #### [facility] [address] [place], [address] BUN/CRE 25.3 RATIO High 10-20 [facility] Comment on above: Order Comment: 302.1 Performed By: #### L 500.4050, L100.0500 #### [facility] [address] [place], [address] Calcium [Mass/Vol] 9.3 mg/dL Normal 7.6-11.0 [facility] Comment on above: Order Comment: 302.1 Performed By: #### L 500.4050, L100.0500 #### [facility] [address] [place], [address] Chloride [Moles/Vol] 105 mmol/L Normal 98-108 [facility] Comment on above: Order Comment: 302.1 Performed By: #### L 500.4050, L100.0500 #### [facility] [address] [place], [address] CO2 [Moles/Vol] 23.0 mmol/L Normal 21.0-32.0 [facility] Comment on above: Order Comment: 302.1 Performed By: #### L 500.4050, L100.0500 #### [facility] [address] [place], [address] Creatinine [Mass/Vol] 0.75 mg/dL Normal 0.70-1.20 [facility] Comment on above: Order Comment: 302.1 Performed By: #### L 500.4050, L100.0500 #### [facility] [address] [place], [address] GAP 12 Normal 5-15 [facility] Comment on above: Order Comment: 302.1 Performed By: #### L 500.4050, L100.0500 #### [facility] [address] [place], [address] GFR/1.73 sq M.predicted among non-blacks MDRD (S/P/Bld) [Vol rate/Area] 97 mL/min/{1.73_m2} Normal >60 [facility] Comment on above: Order Comment: 302.1 Result Comment: mL/m in/1.73m2 CKD-EPI Creatinine Equation (2020) Performed By: #### L 500.4050, L100.0500 #### [facility] [address] [place], [address] Globulin (S) [Mass/Vol] 4.5 g/dL High 2.2-4.2 [facility] Comment on above: Order Comment: 302.1 Performed By: #### L 500.4050, L100.0500 #### [facility] [address] [place], [address] Glucose [Mass/Vol] 86 mg/dL Normal 70-99 [facility] Comment on above: Order Comment: 302.1 Performed By: #### L 500.4050, L100.0500 #### [facility] [address] [place], [address] Potassium [Moles/Vol] 3.7 mmol/L Normal 3.3-5.1 [facility] Comment on above: Order Comment: 302.1 Performed By: #### L 500.4050, L100.0500 #### [facility] [address] [place], [address] Sodium [Moles/Vol] 139 mmol/L Normal 133-145 [facility] Comment on above: Order Comment: 302.1 Performed By: #### L 500.4050, L100.0500 #### [facility] [address] [place], [address] T PROT 7.8 g/dL Normal 5.9-8.4 [facility] Comment on above: Order Comment: 302.1 Performed By: #### L 500.4050, L100.0500 #### [facility] [address] [place], [address] Urea nitrogen [Mass/Vol] 19 mg/dL Normal 4-19 [facility] Comment on above: Order Comment: 302.1 Performed By: #### L 500.4050, L100.0500 #### [facility] [address] [place], [address] CBC-Complete [facility] Erythrocyte distribution width (RBC) [Ratio] 14.9 % High 11.6-14.6 [facility] Comment on above: Order Comment: 302.1 Performed By: #### L 500.4050, L100.0500 #### [facility] [address] [place], [address] Hematocrit (Bld) [Volume fraction] 38.1 % Normal 37-47 [facility] Comment on above: Order Comment: 302.1 Performed By: #### L 500.4050, L100.0500 #### [facility] [address] [place], [address] Hemoglobin (Bld) [Mass/Vol] 11.7 g/dL Low 12.0-15.0 [facility] Comment on above: Order Comment: 302.1 Performed By: #### L 500.4050, L100.0500 #### [facility] [address] [place], [address] MCH (RBC) [Entitic mass] 27.6 pg Normal 27.0-32.0 [facility] Comment on above: Order Comment: 302.1 Performed By: #### L 500.4050, L100.0500 #### [facility] [address] [place], [address] MCHC (RBC) [Mass/Vol] 30.7 g/dL Low 32-36 [facility] Comment on above: Order Comment: 302.1 Performed By: #### L 500.4050, L100.0500 #### [facility] [address] [place], [address] MCV (RBC) [Entitic vol] 89.9 fL Normal 81-99 [facility] Comment on above: Order Comment: 302.1 Performed By: #### L 500.4050, L100.0500 #### [facility] [address] [place], [address] Platelet mean volume (Bld) [Entitic vol] 11.1 fL Normal 6.2-12.0 [facility] Comment on above: Order Comment: 302.1 Performed By: #### L 500.4050, L100.0500 #### [facility] [address] [place], [address] Platelets (Bld) [#/Vol] 309 10*3/uL Normal 150-450 [facility] Comment on above: Order Comment: 302.1 Performed By: #### L 500.4050, L100.0500 #### [facility] [address] [place], [address] RBC (Bld) [#/Vol] 4.24 10*6/uL Normal 4.2-5.4 [facility] Comment on above: Order Comment: 302.1 Performed By: #### L 500.4050, L100.0500 #### [facility] [address] [place], [address] RDW SD 49.3 fl High 35.1-43.9 [facility] Comment on above: Order Comment: 302.1 Performed By: #### L 500.4050, L100.0500 #### [facility] [address] [place], [address] WBC (Bld) [#/Vol] 6.8 10*3/uL Normal 4.4-11.0 [facility] Comment on above: Order Comment: 302.1 Performed By: #### L 500.4050, L100.0500 #### [facility] [address] [place], [address] Comprehensive Metabolic Prof [facility] 01-28-2025 Albumin [Mass/Vol] 3.2 g/dL Low 3.5-5.0 [facility] Comment on above: Order Comment: 302.1 Performed By: #### L 500.4050, L100.0500 #### [facility] [address] [place], [address] Albumin/Globulin [Mass ratio] 0.8 {ratio} Low 0.9-2.4 [facility] Comment on above: Order Comment: 302.1 Performed By: #### L 500.4050, L100.0500 #### [facility] [address] [place], [address] ALK PHOS 123 U/L High 35-104 [facility] Comment on above: Order Comment: 302.1 Performed By: #### L 500.4050, L100.0500 #### [facility] [address] [place], [address] ALT [Catalytic activity/Vol] 17 U/L Normal <=34 [facility] Comment on above: Order Comment: 302.1 Performed By: #### L 500.4050, L100.0500 #### [facility] [address] [place], [address] AST [Catalytic activity/Vol] 18 U/L Normal <=31 [facility] Comment on above: Order Comment: 302.1 Performed By: #### L 500.4050, L100.0500 #### [facility] [address] [place], [address] Bilirubin [Mass/Vol] 0.18 mg/dL Normal 0.00-1.30 [facility] Comment on above: Order Comment: 302.1 Performed By: #### L 500.4050, L100.0500 #### [facility] [address] [place], [address] BUN/CRE 27.3 RATIO High 10-20 [facility] Comment on above: Order Comment: 302.1 Performed By: #### L 500.4050, L100.0500 #### [facility] [address] [place], [address] Calcium [Mass/Vol] 9.2 mg/dL Normal 7.6-11.0 [facility] Comment on above: Order Comment: 302.1 Performed By: #### L 500.4050, L100.0500 #### [facility] [address] [place], [address] Chloride [Moles/Vol] 106 mmol/L Normal 98-108 [facility] Comment on above: Order Comment: 302.1 Performed By: #### L 500.4050, L100.0500 #### [facility] [address] [place], [address] CO2 [Moles/Vol] 23.7 mmol/L Normal 21.0-32.0 [facility] Comment on above: Order Comment: 302.1 Performed By: #### L 500.4050, L100.0500 #### [facility] [address] [place], [address] Creatinine [Mass/Vol] 0.79 mg/dL Normal 0.70-1.20 [facility] Comment on above: Order Comment: 302.1 Performed By: #### L 500.4050, L100.0500 #### [facility] [address] [place], [address] GAP 11 Normal 5-15 [facility] Comment on above: Order Comment: 302.1 Performed By: #### L 500.4050, L100.0500 #### [facility] [address] [place], [address] GFR/1.73 sq M.predicted among non-blacks MDRD (S/P/Bld) [Vol rate/Area] 92 mL/min/{1.73_m2} Normal >60 [facility] Comment on above: Order Comment: 302.1 Result Comment: mL/m in/1.73m2 CKD-EPI Creatinine Equation (2020) Performed By: #### L 500.4050, L100.0500 #### [facility] [address] [place], [address] Globulin (S) [Mass/Vol] 3.8 g/dL Normal 2.2-4.2 [facility] Comment on above: Order Comment: 302.1 Performed By: #### L 500.4050, L100.0500 #### [facility] [address] [place], [address] Glucose [Mass/Vol] 91 mg/dL Normal 70-99 [facility] Comment on above: Order Comment: 302.1 Performed By: #### L 500.4050, L100.0500 #### [facility] [address] [place], [address] Potassium [Moles/Vol] 3.6 mmol/L Normal 3.3-5.1 [facility] Comment on above: Order Comment: 302.1 Performed By: #### L 500.4050, L100.0500 #### [facility] [address] [place], [address] Sodium [Moles/Vol] 141 mmol/L Normal 133-145 [facility] Comment on above: Order Comment: 302.1 Performed By: #### L 500.4050, L100.0500 #### [facility] [address] [place], [address] T PROT 7.0 g/dL Normal 5.9-8.4 [facility] Comment on above: Order Comment: 302.1 Performed By: #### L 500.4050, L100.0500 #### [facility] [address] [place], [address] Urea nitrogen [Mass/Vol] 22 mg/dL High 4-19 [facility] Comment on above: Order Comment: 302.1 Performed By: #### L 500.4050, L100.0500 #### [facility] [address] [place], [address] 30on 01-20-2025 30 Problem: Knowledge D eficit Goal: Patient/family/caregiver demonstrates understanding of disease process, treatment plan, medications, and discharge instructions Outcome: Progressing Problem: Potential for Compromised Skin Integrity Goal: Skin Integrity is Maintained or Improved Outcome: Progressing Normal [facility] [id number] 01-20-2025 [id number] Confirmed pickup tariq e of 5:00pm by transport [employer] at phone number [phone]. Location of facility drop off is [facility]. Facility notified via [employer], TCC notified on secure chat. [facility] [phone] MAR, Med Rec and Upd ated Clinicals sent to [facility] via [employer] per TCC request. [facility] [phone] Pt is stable for DC. Attending to place DC orders and MAR. RN to complete ERNESTO. REFERRAL RN tasked to arrange transport for 5:00 today and to sen DC Summary and MAR. SNF updated. Legal Guardian Eric, called and messaged left @DC. [facility] 36on 01-20-2025 36 S: Denise from [facility] spoke with [facility] nurse regarding patient update B: Onset of symptoms/concern today A: Denise calling to updated Dr Malin patient was discharged from [facility] today and admitted to [place]. R: Message to provider. Reason for Disposition General information question, no triage required and triager able to answer question Protocols used: Information Only Call - [facility] BASIC METABOLIC PANELon 12-30 Anion gap [Moles/Vol] 7 mmol/L Normal 3-13 [facility] Comment on above: Performed By: #### L AB15 ####[employer] Area Supervisor: ERIKA ANGELO ([phone])[address] Calcium [Mass/Vol] 9.2 mg/dL Normal 8.4-10.2 [facility] Comment on above: Performed By: #### L AB15 ####[employer] Area Supervisor: ERIKA ANGELO ([phone])[address] Chloride [Moles/Vol] 106 mmol/L Normal 98-107 [facility] Comment on above: Performed By: #### L AB15 ####[employer] Area Supervisor: ERIKA [phone])[address] CO2 [Moles/Vol] 23 mmol/L Normal 22-29 [facility] Comment on above: Performed By: #### L AB15 ####[employer] Area Supervisor: ERIKA [phone])[facility] [place] [address] Creatinine [Mass/Vol] 0.73 mg/dL Normal 0.57-1.11 [facility] Comment on above: Performed By: #### L AB15 ####[employer] Area Supervisor: ERIKA ANGELO ([phone])[facility])[address] [place] [address] GLOMERULAR FILTRATION RATE ML/MIN/1.73 SQ M.PREDICTED >90.0 Normal >60.0 [facility] Comment on above: Result Comment: Calc ulation based on the Chronic Kidney Disease Epidemiology Collaboration (CKD-EPI) equation refit without adjustment for race Performed By: #### L AB15 ####[employer] Area Supervisor: ERIKA ANGELO ([phone])[facility] ([facility])[address] [place] [address] Glucose [Mass/Vol] 98 mg/dL Normal 74-100 [facility] Comment on above: Performed By: #### L AB15 ####[employer] Area Supervisor: ERIKA ANGELO ([phone])[facility])[address] [place] [address] Potassium [Moles/Vol] 3.9 mmol/L Normal 3.5-5.1 [facility] Comment on above: Result Comment: [facility] potassium values may be up to 0.5 mmol/L lower than serum values. Performed By: #### L AB15 ####[employer] Area Supervisor: ERIKA ANGELO ([phone])[facility] ([facility])[address] [place] [address] [place] Sodium [Moles/Vol] 136 mmol/L Normal 136-145 [facility] Comment on above: Performed By: #### L AB15 ####[employer] Area Supervisor: ERIKA ANGELO ([phone])[facility])[address] [place] [address] Urea nitrogen [Mass/Vol] 22 mg/dL High 8-21 [facility] Comment on above: Performed By: #### L AB15 ####[employer] Area Supervisor: ERIKA ANGELO ([phone])[facility] ([facility])[address] [place] [address] Basic metabolic 1998 panelon 01-20-2025 Anion gap [Moles/Vol] 7 mmol/L 3 - 13 mmol/L [facility] Calcium [Mass/Vol] 9.2 mg/dL 8.4 - 10. 2 mg/dL [facility] Chloride [Moles/Vol] 106 mmol/L 98 - 10 7 mmol/L [facility] CO2 [Moles/Vol] 23 mmol/L 22 - 29 mmol/L [facility] Creatinine [Mass/Vol] 0.73 mg/dL 0.57 - 1.11 mg/dL [facility] GFR/1.73 sq M.predicted (S/P/Bld) [Vol rate/Area] - PINF [facility] Comment on above: Calculation based on the Chronic Kidney Disease Epidemiology Collaboration (CKD-EPI) equation refit without adjustment for race Glucose [Mass/Vol] 98 mg/dL 74 - 100 mg/dL [facility] Interpretation and review of laboratory results Abnormal [facility] Potassium [Moles/Vol] 3.9 mmol/L 3.5 - 5.1 mmol/L [facility] Comment on above: Plasma potassium stacey ues may be up to 0.5 mmol/L lower than serum values. Sodium [Moles/Vol] 136 mmol/L 136 - 145 mmol/L [facility] Urea nitrogen [Mass/Vol] 22 mg/dL High 8 - 21 mg/dL [facility] Nursing Noteon 01-20-2025 Nursing Note Pt taken to SNF with transportation Normal [facility] Nursing Note Report called to [facility] RN questions answered aware 1700 pickle cutter. Pt IV dcd tip intact. Awaiting transport. Normal [facility] 30on 01-19-2025 30 Problem: Knowledge D eficit [...] Goal: Assess Nutritional Intake Outcome: Progressing Normal [facility] Bacteria identified Cx Nom ( Bld)on 01-19-2025 Interpretation and review of laboratory results Normal [facility] Blood Collection Sit e: Left Arm [facility] Interpretation and review of laboratory results Normal [facility] Blood Collection Sit e: Right Femoral Line [facility] Laboratory - Microbiology an d Antimicrobial susceptibilityon 01-19-2025 Bacteria identified Cx Nom (Bld) No growth at 5 days [facility] Bacteria identified Cx Nom (Bld) No growth at 5 days [facility] 30on 01-18-2025 30 Problem: Potential f [...] incontinence device to maintain their dignity Normal [facility] BASIC METABOLIC PANELon 12-30 Anion gap [Moles/Vol] 8 mmol/L Normal 3-13 [facility] Comment on above: Performed By: #### L AB15 ####[employer] Area Supervisor: ERIKA ANGELO ([phone])[facility] ([facility])[address] [place] [address] Calcium [Mass/Vol] 9.0 mg/dL Normal 8.4-10.2 [facility] Comment on above: Performed By: #### L AB15 ####[employer] Area Supervisor: ERIKA ANGELO ([phone])[facility] [place] [address] [place] Chloride [Moles/Vol] 112 mmol/L High 98-107 [facility] Comment on above: Performed By: #### L AB15 ####[employer] Area Supervisor: ERIKA ANGELO ([phone])[facility])[address] [place] [address] CO2 [Moles/Vol] 23 mmol/L Normal 22-29 [facility] Comment on above: Performed By: #### L AB15 ####[employer] Area Supervisor: ERIKA ANGELO ([phone])[facility])[address] [place] [address] Creatinine [Mass/Vol] 0.70 mg/dL Normal 0.57-1.11 [facility] Comment on above: Performed By: #### L AB15 ####[employer] Area Supervisor: ERIKA ANGELO ([phone])[facility])[address] [place] [address] GLOMERULAR FILTRATION RATE ML/MIN/1.73 SQ M.PREDICTED >90.0 Normal >60.0 [facility] Comment on above: Result Comment: Calc ulation based on the Chronic Kidney Disease Epidemiology Collaboration (CKD-EPI) equation refit without adjustment for race Performed By: #### L AB15 ####[employer] Area Supervisor: ERIKA ANGELO ([phone])[facility])[address] [place] [address] Glucose [Mass/Vol] 95 mg/dL Normal 74-100 [facility] Comment on above: Performed By: #### L AB15 ####[employer] Area Supervisor: ERIKA ANGELO ([phone])[facility])[address] [place] [address] Potassium [Moles/Vol] 4.8 mmol/L Normal 3.5-5.1 [facility] Comment on above: Result Comment: [facility] potassium values may be up to 0.5 mmol/L lower than serum values. Performed By: #### L AB15 ####[employer] Area Supervisor: ERIKA ANGELO ([phone])[facility])[address] [place] [address] [place] Sodium [Moles/Vol] 143 mmol/L Normal 136-145 [facility] Comment on above: Performed By: #### L AB15 ####[employer] Area Supervisor: ERIKA ANGELO ([phone])[facility])[address] [place] [address] Urea nitrogen [Mass/Vol] 16 mg/dL Normal 8-21 [facility] Comment on above: Performed By: #### L AB15 ####[employer] Area Supervisor: ERIKA ANGELO ([phone])[facility])[address] [place] [address] Basic metabolic 1998 panelOr dered By: Libby Gregory on 01-18-2025 Anion gap [Moles/Vol] 8 mmol/L 3 - 13 mmol/L [facility] Calcium [Mass/Vol] 9 mg/dL 8.4 - 10. 2 mg/dL [facility] Chloride [Moles/Vol] 112 mmol/L High 98 - 10 7 mmol/L [facility] CO2 [Moles/Vol] 23 mmol/L 22 - 29 mmol/L [facility] Creatinine [Mass/Vol] 0.7 mg/dL 0.57 - 1.11 mg/dL [facility] GFR/1.73 sq M.predicted (S/P/Bld) [Vol rate/Area] - PINF [facility] Comment on above: Calculation based on the Chronic Kidney Disease Epidemiology Collaboration (CKD-EPI) equation refit without adjustment for race Glucose [Mass/Vol] 95 mg/dL 74 - 100 mg/dL [facility] Interpretation and review of laboratory results Abnormal [facility] Potassium [Moles/Vol] 4.8 mmol/L 3.5 - 5.1 mmol/L [facility] Comment on above: Plasma potassium stacey ues may be up to 0.5 mmol/L lower than serum values. Sodium [Moles/Vol] 143 mmol/L 136 - 145 mmol/L [facility] Urea nitrogen [Mass/Vol] 16 mg/dL 8 - 21 mg/dL [facility] CBC (HEMOGRAM)on 01-18-2025 Erythrocyte distribution width (RBC) [Ratio] 14.8 % Normal 11.5-15.0 [facility] Comment on above: Performed By: #### L [id number] ####[employer] Area Supervisor: ERIKA ANGELO ([phone])[facility])[address] [place] [address] Hematocrit (Bld) [Volume fraction] 37.2 % Normal 35.0-47.0 [facility] Comment on above: Performed By: #### L [id number] ####[employer] Area Supervisor: ERIKA ANGELO ([phone])[facility])[address] [place] [address] Hemoglobin (Bld) [Mass/Vol] 11.5 g/dL Low 11.7-16.0 [facility] Comment on above: Performed By: #### L [id number] ####[employer] Area Supervisor: ERIKA ANGELO ([phone])[facility])[address] [place] [address] MCH (RBC) [Entitic mass] 27.3 pg Normal 26.0-34.0 [facility] Comment on above: Performed By: #### L [id number] ####[employer] Area Supervisor: ERIKA ANGELO ([phone])[facility])[address] [place] [address] MCHC 30.9 % Normal 30.5-36.0 [facility] Comment on above: Performed By: #### L [id number] ####[employer] Area Supervisor: ERIKA ANGELO ([phone])[facility])[address] [place] [address] MCV (RBC) [Entitic vol] 88.4 fL Normal 77.0-99.0 [facility] Comment on above: Performed By: #### L [id number] ####[employer] Area Supervisor: ERIKA ANGEOL ([phone])[facility])[address] [place] [address] Platelet mean volume (Bld) [Entitic vol] 10.3 fL Normal 9.0-12.7 [facility] Comment on above: Performed By: #### L [id number] ####[employer] Area Supervisor: ERIKA ANGELO ([phone])[facility])[address] [place] [address] Platelets (Bld) [#/Vol] 299 10*3/uL Normal 140-440 [facility] Comment on above: Performed By: #### L [id number] ####[employer] Area Supervisor: ERIKA ANGELO ([phone])[facility])[address] [place] [address] RBC (Bld) [#/Vol] 4.21 10*6/uL Normal 3.80-5.20 [facility] Comment on above: Performed By: #### L [id number] ####[employer] Area Supervisor: ERIKA ANGELO ([phone])[address] WBC (Bld) [#/Vol] 7.1 10*3/uL Normal 3.6-10.7 [facility] Comment on above: Performed By: #### L [id number] ####[employer] Area Supervisor: ERIKA ANGELO ([phone])[facility] ([facility])[address] [place] [address] CBC panel Auto (Bld)on 01-18 Erythrocyte distribution width (RBC) [Ratio] 14.8 % 11.5 - 15.0 % [facility] Hematocrit (Bld) [Volume fraction] 37.2 % 35.0 - 47.0 % [facility] Hemoglobin (Bld) [Mass/Vol] 11.5 g/dL Low 11.7 - 16.0 g/dL [facility] Interpretation and review of laboratory results Abnormal [facility] MCH (RBC) [Entitic mass] 27.3 pg 26.0 - 34.0 pg [facility] MCHC (RBC) [Mass/Vol] 30.9 % 30.5 - 36.0 % [facility] MCV (RBC) [Entitic vol] 88.4 fL 77.0 - 99.0 fL [facility] Platelet mean volume (Bld) [Entitic vol] 10.3 fL 9.0 - 12.7 fL [facility] Platelets (Bld) [#/Vol] 299 10*3/uL 140 - 440 10*3/uL [facility] RBC (Bld) [#/Vol] 4.21 10*6/uL 3.80 - 5.20 10*6/uL [facility] WBC (Bld) [#/Vol] 7.1 10*3/uL 3.6 - 10.7 10*3/uL [facility] 30on 01-17-2025 30 Problem: Knowledge D eficit [...] admission and per policy Avoid shearing Normal [facility] 30 Problem: Knowledge D eficit Goal: Patient/family/caregiver demonstrates understanding of disease process, treatment plan, medications, and discharge instructions Outcome: Progressing Problem: Potential for Compromised Skin Integrity Goal: Skin Integrity is Maintained or Improved Outcome: Progressing Goal: Nutritional status is improving Outcome: Progressing Problem: Urinary Incontinence Goal: Perineal skin integrity is maintained or improved Outcome: Progressing Normal [facility] 30 Problem: Knowledge D eficit Goal: Patient/family/caregiver demonstrates understanding of disease process, treatment plan, medications, and discharge instructions Outcome: Progressing Problem: Potential for Compromised Skin Integrity Goal: Skin Integrity is Maintained or Improved Outcome: Progressing Goal: Nutritional status is improving Outcome: Progressing Problem: Urinary Incontinence Goal: Perineal skin integrity is maintained or improved Outcome: Progressing Normal [facility] CBC W Auto Differential pane l (Bld)on 01-17-2025 Basophils (Bld) [#/Vol] 0 10*3/uL 0.0 - 0.2 10*3/uL [facility] Basophils/100 WBC (Bld) 0.5 % 0.0 - 2.0 % [facility] Eosinophils (Bld) [#/Vol] 0.1 10*3/uL 0.0 - 0.5 10*3/uL [facility] Eosinophils/100 WBC (Bld) 1.3 % 0.0 - 6.0 % [facility] Erythrocyte distribution width (RBC) [Ratio] 14.6 % 11.5 - 15.0 % [facility] Hematocrit (Bld) [Volume fraction] 40.1 % 35.0 - 47.0 % [facility] Hemoglobin (Bld) [Mass/Vol] 12.4 g/dL 11.7 - 16.0 g/dL [facility] Immature granulocytes (Bld) [#/Vol] 0 10*3/uL NINF - 0.1 10*3/uL [facility] Immature granulocytes/100 WBC (Bld) 0 % 0.0 - 2.0 % [facility] Interpretation and review of laboratory results Normal [facility] Lymphocytes (Bld) [#/Vol] 2.1 10*3/uL 1.0 - 4.3 10*3/uL [facility] Lymphocytes/100 WBC (Bld) 34.8 % 15.0 - 45.0 % [facility] MCH (RBC) [Entitic mass] 27.3 pg 26.0 - 34.0 pg [facility] MCHC (RBC) [Mass/Vol] 30.9 % 30.5 - 36.0 % [facility] MCV (RBC) [Entitic vol] 88.1 fL 77.0 - 99.0 fL [facility] Monocytes (Bld) [#/Vol] 0.4 10*3/uL 0.0 - 0.9 10*3/uL [facility] Monocytes/100 WBC (Bld) 6.9 % 5.0 - 13.0 % [facility] Neutrophils (Bld) [#/Vol] 3.4 10*3/uL 1.8 - 7.5 10*3/uL [facility] Neutrophils/100 WBC (Bld) 56.5 % 38.0 - 82.0 % [facility] Nucleated RBC/100 WBC (Bld) [Ratio] 0 % [facility] Platelet mean volume (Bld) [Entitic vol] 10.4 fL 9.0 - 12.7 fL [facility] Platelets (Bld) [#/Vol] 352 10*3/uL 140 - 440 10*3/uL [facility] RBC (Bld) [#/Vol] 4.55 10*6/uL 3.80 - 5.20 10*6/uL [facility] WBC (Bld) [#/Vol] 6 10*3/uL 3.6 - 10.7 10*3/uL [facility] CBC WITH AUTO DIFFERENTIALon 01-17-2025 Basophils (Bld) [#/Vol] 0.0 10*3/uL Normal 0.0-0.2 [facility] Comment on above: Performed By: #### L [id number] ####[employer] Area Supervisor: ERIKA ANGELO ([phone])[facility] ([facility])[address] [place] [address] [place] Basophils/100 WBC (Bld) 0.5 % Normal 0.0-2.0 [facility] Comment on above: Performed By: #### L [id number] ####[employer] Area Supervisor: ERIKA ANGELO ([phone])[facility])[address] [place] [address] Eosinophils (Bld) [#/Vol] 0.1 10*3/uL Normal 0.0-0.5 [facility] Comment on above: Performed By: #### L [id number] ####[employer] Area Supervisor: ERIKA ANGELO ([phone])[facility] ([facility])[address] [place] [address] Eosinophils/100 WBC (Bld) 1.3 % Normal 0.0-6.0 [facility] Comment on above: Performed By: #### L [id number] ####[employer] Area Supervisor: ERIKA ANGELO ([phone])[facility])[address] [place] [address] Erythrocyte distribution width (RBC) [Ratio] 14.6 % Normal 11.5-15.0 [facility] Comment on above: Performed By: #### L [id number] ####[employer] Area Supervisor: ERIKA ANGELO ([phone])[facility] ([facility])[address] [place] [address] Hematocrit (Bld) [Volume fraction] 40.1 % Normal 35.0-47.0 [facility] Comment on above: Performed By: #### L [id number] ####[employer] Area Supervisor: ERIKA ANGELO ([phone])[facility])[address] [place] [address] Hemoglobin (Bld) [Mass/Vol] 12.4 g/dL Normal 11.7-16.0 [facility] Comment on above: Performed By: #### L [id number] ####[employer] Area Supervisor: ERIKA ANGELO ([phone])[facility])[address] [place] [address] IMMATURE GRANS % 0.0 % Normal 0.0-2.0 [facility] Comment on above: Performed By: #### L [id number] ####[employer] Area Supervisor: ERIKA ANGELO ([phone])[facility])[address] [place] [address] IMMATURE GRANS ABSOLUTE 0.0 10*3/uL Normal <0.1 [facility] Comment on above: Performed By: #### L [id number] ####[employer] Area Supervisor: ERIKA ANGELO ([phone])[address] Lymphocytes (Bld) [#/Vol] 2.1 10*3/uL Normal 1.0-4.3 [facility] Comment on above: Performed By: #### L [id number] ####[employer] Area Supervisor: ERIKA ANGELO ([phone])[address] Lymphocytes/100 WBC (Bld) 34.8 % Normal 15.0-45.0 [facility] Comment on above: Performed By: #### L [id number] ####[employer] Area Supervisor: ERIKA ANGELO ([phone])[facility])[address] [place] [address] MCH (RBC) [Entitic mass] 27.3 pg Normal 26.0-34.0 [facility] Comment on above: Performed By: #### L [id number] ####[employer] Area Supervisor: ERIKA ANGELO ([phone])[facility])[address] [place] [address] MCHC 30.9 % Normal 30.5-36.0 [facility] Comment on above: Performed By: #### L [id number] ####[employer] Area Supervisor: ERKIA ANGELO ([phone])[facility] ([facility])[address] [place] [address] MCV (RBC) [Entitic vol] 88.1 fL Normal 77.0-99.0 [facility] Comment on above: Performed By: #### L [id number] ####[employer] Area Supervisor: ERIKA ANGELO ([phone])[facility] ([facility])[address] [place] [address] Monocytes (Bld) [#/Vol] 0.4 10*3/uL Normal 0.0-0.9 [facility] Comment on above: Performed By: #### L [id number] ####[employer] Area Supervisor: ERIKA ANGELO ([phone])[facility] ([facility])[address] [place] [address] Monocytes/100 WBC (Bld) 6.9 % Normal 5.0-13.0 [facility] Comment on above: Performed By: #### L [id number] ####[employer] Area Supervisor: ERIKA ANGELO ([phone])[facility] ([facility])[address] [place] [address] NEUTROPHILS ABSOLUTE 3.4 10*3/uL Normal 1.8-7.5 [facility] Comment on above: Performed By: #### L [id number] ####[employer] Area Supervisor: ERIKA ANGELO ([phone])[facility] ([facility])[address] [place] [address] Neutrophils/100 WBC (Bld) 56.5 % Normal 38.0-82.0 [facility] Comment on above: Performed By: #### L [id number] ####[employer] Area Supervisor: ERIKA ANGELO ([phone])[facility])[address] [place] [address] NRBC 0.0 /100 WBCs Normal 0.0-2.0 [facility] Comment on above: Performed By: #### L [id number] ####[employer] Area Supervisor: ERIKA ANGELO ([phone])[facility] ([facility])[address] [place] [address] Platelet mean volume (Bld) [Entitic vol] 10.4 fL Normal 9.0-12.7 [facility] Comment on above: Performed By: #### L [id number] ####[employer] Area Supervisor: ERIKA ANGELO ([phone])[facility])[address] [place] [address] Platelets (Bld) [#/Vol] 352 10*3/uL Normal 140-440 [facility] Comment on above: Performed By: #### L [id number] ####[employer] Area Supervisor: ERIKA ANGELO ([phone])[facility])[address] [place] [address] RBC (Bld) [#/Vol] 4.55 10*6/uL Normal 3.80-5.20 [facility] Comment on above: Performed By: #### L [id number] ####[employer] Area Supervisor: ERIKA ANGELO ([phone])[facility] ([facility])[address] [place] [address] WBC (Bld) [#/Vol] 6.0 10*3/uL Normal 3.6-10.7 [facility] Comment on above: Performed By: #### L [id number] ####[employer] Area Supervisor: ERIKA ANGELO ([phone])[facility])[address] [place] [address] COMPREHENSIVE METABOLIC PANE Patricio 01-17-2025 Albumin [Mass/Vol] 2.8 g/dL Low 3.5-5.0 [facility] Comment on above: Performed By: #### L AB17, [id number] ####[employer] Area Supervisor: ERIKA ANGELO ([phone])[facility])[address] [place] [address] ALP [Catalytic activity/Vol] 125 U/L Normal 40-150 [facility] Comment on above: Performed By: #### L AB17, [id number] ####[employer] Area Supervisor: ERIKA ANGELO ([phone])[facility])[address] ALT [Catalytic activity/Vol] 16 U/L Normal <30 [facility] Comment on above: Performed By: #### L AB17, [id number] ####[employer] Area Supervisor: ERIKA ANGELO ([phone])[facility] ([facility])[address] [place] [address] Anion gap [Moles/Vol] 7 mmol/L Normal 3-13 [facility] Comment on above: Performed By: #### L AB17, [id number] ####[employer] Area Supervisor: ERIKA ANGELO ([phone])[facility] ([facility])[address] [place] [address] AST [Catalytic activity/Vol] 21 U/L Normal <34 [facility] Comment on above: Performed By: #### L AB17, [id number] ####[employer] Area Supervisor: ERIKA ANGELO ([phone])[facility] ([facility])[address] [place] [address] Bilirubin [Mass/Vol] 0.2 mg/dL Normal <1.2 [facility] Comment on above: Performed By: #### L AB17, [id number] ####[employer] Area Supervisor: ERIKA ANGELO ([phone])[facility])[address] [place] [address] Calcium [Mass/Vol] 9.0 mg/dL Normal 8.4-10.2 [facility] Comment on above: Performed By: #### L AB17, [id number] ####[employer] Area Supervisor: ERIKA ANGELO ([phone])[facility])[address] [place] [address] [place] Chloride [Moles/Vol] 111 mmol/L High 98-107 [facility] Comment on above: Performed By: #### L AB17, [id number] ####[employer] Area Supervisor: ERIKA ANGELO ([phone])[facility])[address] [place] [address] [place] CO2 [Moles/Vol] 23 mmol/L Normal 22-29 [facility] Comment on above: Performed By: #### L AB17, [id number] ####[employer] Area Supervisor: ERIKA ANGELO ([phone])[facility] ([facility])[address] [place] [address] Creatinine [Mass/Vol] 0.67 mg/dL Normal 0.57-1.11 [facility] Comment on above: Performed By: #### L AB17, [id number] ####[employer] Area Supervisor: ERIKA ANGELO ([phone])[facility] ([facility])[address] [place] [address] GLOMERULAR FILTRATION RATE ML/MIN/1.73 SQ M.PREDICTED >90.0 Normal >60.0 [facility] Comment on above: Result Comment: Calc ulation based on the Chronic Kidney Disease Epidemiology Collaboration (CKD-EPI) equation refit without adjustment for race Performed By: #### L AB17, [id number] ####[employer] Area Supervisor: ERIKA ANGELO ([phone])[facility] ([facility])[address] [place] [address] Glucose [Mass/Vol] 98 mg/dL Normal 74-100 [facility] Comment on above: Performed By: #### L AB17, [id number] ####[employer] Area Supervisor: ERIKA ANGELO ([phone])[facility] ([facility])[address] [place] [address] Potassium [Moles/Vol] 3.4 mmol/L Low 3.5-5.1 [facility] Comment on above: Result Comment: [facility] potassium values may be up to 0.5 mmol/L lower than serum values. Performed By: #### L AB17, [id number] ####[employer] Area Supervisor: ERIKA ANGELO ([phone])[facility] [place] [address] [place] Protein [Mass/Vol] 7.6 g/dL Normal 6.4-8.3 [facility] Comment on above: Performed By: #### L AB17, [id number] ####[employer] Area Supervisor: ERIKA ANGELO ([phone])[facility] ([facility])[address] [place] [address] [place] Sodium [Moles/Vol] 141 mmol/L Normal 136-145 [facility] Comment on above: Performed By: #### L AB17, [id number] ####[employer] Area Supervisor: ERIKA ANGELO ([phone])[facility] ([facility])[address] [place] [address] Urea nitrogen [Mass/Vol] 13 mg/dL Normal 8-21 [facility] Comment on above: Performed By: #### L AB17, [id number] ####[employer] Area Supervisor: ERIKA ANGELO ([phone])[facility] [place] [address] Comprehensive metabolic 1998 panelon 01-17-2025 Albumin [Mass/Vol] 2.8 g/dL Low 3.5 - 5.0 g/dL [facility] ALP [Catalytic activity/Vol] 125 U/L 40 - 150 U/L [facility] ALT [Catalytic activity/Vol] 16 U/L NINF - 30 U/L [facility] Anion gap [Moles/Vol] 7 mmol/L 3 - 13 mmol/L [facility] AST [Catalytic activity/Vol] 21 U/L NINF - 34 U/L [facility] Bilirubin [Mass/Vol] 0.2 mg/dL NINF - 1.2 mg/dL [facility] Calcium [Mass/Vol] 9 mg/dL 8.4 - 10. 2 mg/dL [facility] Chloride [Moles/Vol] 111 mmol/L High 98 - 10 7 mmol/L [facility] CO2 [Moles/Vol] 23 mmol/L 22 - 29 mmol/L [facility] Creatinine [Mass/Vol] 0.67 mg/dL 0.57 - 1.11 mg/dL [facility] GFR/1.73 sq M.predicted (S/P/Bld) [Vol rate/Area] - PINF [facility] Comment on above: Calculation based on the Chronic Kidney Disease Epidemiology Collaboration (CKD-EPI) equation refit without adjustment for race Glucose [Mass/Vol] 98 mg/dL 74 - 100 mg/dL [facility] Interpretation and review of laboratory results Abnormal [facility] Potassium [Moles/Vol] 3.4 mmol/L Low 3.5 - 5.1 mmol/L [facility] Comment on above: Plasma potassium stacey ues may be up to 0.5 mmol/L lower than serum values. Protein [Mass/Vol] 7.6 g/dL 6.4 - 8.3 g/dL [facility] Sodium [Moles/Vol] 141 mmol/L 136 - 145 mmol/L [facility] Urea nitrogen [Mass/Vol] 13 mg/dL 8 - 21 mg/dL [facility] Laboratory - Chemistry and C hemistry - challengeon 01-17-2025 Magnesium [Mass/Vol] 2.2 mg/dL 1.6 - 2 .6 mg/dL [facility] MAGNESIUMon 01-17-2025 Magnesium [Mass/Vol] 2.2 mg/dL Normal 1.6-2.6 [facility] Comment on above: Result Comment: BRIANA R COMMENTS: Higher values can be expected in females during menses. Performed By: #### L AB17, [id number] ####[employer] Area Supervisor: ERIKA ANGELO ([phone])[facility] ([address] Magnesium [Mass/Vol]on 01-17 Interpretation and review of laboratory results Normal [facility] Higher values can be expected in females during menses. [facility] Nursing Noteon 01-17-2025 Nursing Note Called [facility] [place] to request an updated patient medication list to be faxed to [phone] [facility] Wound Cultureon 01-17-2025 WC UNKNOWN LOCATION OF WOUND #3 Clinical correlation necessary, Possible skin contamination. Wound Culture Copy of report sent to Infection Control Printer [id number] 01/16/25 0805 CRISTHIAN. Wound Culture RESULTS CALLED TO [facility] 01/16/25 0882 [place]. REPORT READ BACK BY [...] S Vancomycin Islt DARIO 1 S Normal [facility] Comment on above: Performed By: #### L 500.4050, L100.0500 #### [facility] Laboratory [address] [place], [address] 30on 01-16-2025 30 Problem: Knowledge D eficit Goal: Patient/family/caregiver demonstrates understanding of disease process, treatment plan, medications, and discharge instructions Outcome: Progressing Problem: Potential for Compromised Skin Integrity Goal: Skin Integrity is Maintained or Improved Outcome: Progressing Goal: Nutritional status is improving Outcome: Progressing Problem: Urinary Incontinence Goal: Perineal skin integrity is maintained or improved Outcome: Progressing Normal [facility] [phone] 01-16-2025 [id number] Pt adm to hosp from [facility] w AMS, Hypotension, dehydration, N/V. BP stable. REFERRAL RN tasked to send return referral to SNF. Met w pt, A+O today. Voice is very weak. Soft. Called Legal Guardian,Leola Chappell, , updates given. Pt is a Quad and is Bed bound. CM to follow for DC needs. [facility] CBC W Auto Differential pane l (Bld)Ordered By: Celia Judge on 01-16-2025 Basophils (Bld) [#/Vol] 0 10*3/uL 0.0 - 0.2 10*3/uL [facility] Basophils/100 WBC (Bld) 0.6 % 0.0 - 2.0 % [facility] Eosinophils (Bld) [#/Vol] 0.1 10*3/uL 0.0 - 0.5 10*3/uL [facility] Eosinophils/100 WBC (Bld) 1.7 % 0.0 - 6.0 % [facility] Erythrocyte distribution width (RBC) [Ratio] 14.7 % 11.5 - 15.0 % [facility] Hematocrit (Bld) [Volume fraction] 34.6 % Low 35.0 - 47.0 % [facility] Hemoglobin (Bld) [Mass/Vol] 10.8 g/dL Low 11.7 - 16.0 g/dL [facility] Immature granulocytes (Bld) [#/Vol] 0 10*3/uL NINF - 0.1 10*3/uL [facility] Immature granulocytes/100 WBC (Bld) 0.4 % 0.0 - 2.0 % [facility] Interpretation and review of laboratory results Abnormal [facility] Lymphocytes (Bld) [#/Vol] 2 10*3/uL 1.0 - 4.3 10*3/uL [facility] Lymphocytes/100 WBC (Bld) 38.8 % 15.0 - 45.0 % [facility] MCH (RBC) [Entitic mass] 27.4 pg 26.0 - 34.0 pg [facility] MCHC (RBC) [Mass/Vol] 31.2 % 30.5 - 36.0 % [facility] MCV (RBC) [Entitic vol] 87.8 fL 77.0 - 99.0 fL [facility] Monocytes (Bld) [#/Vol] 0.3 10*3/uL 0.0 - 0.9 10*3/uL [facility] Monocytes/100 WBC (Bld) 5.8 % 5.0 - 13.0 % [facility] Neutrophils (Bld) [#/Vol] 2.8 10*3/uL 1.8 - 7.5 10*3/uL [facility] Neutrophils/100 WBC (Bld) 52.7 % 38.0 - 82.0 % [facility] Nucleated RBC/100 WBC (Bld) [Ratio] 0 % [facility] Platelet mean volume (Bld) [Entitic vol] 10.5 fL 9.0 - 12.7 fL [facility] Platelets (Bld) [#/Vol] 327 10*3/uL 140 - 440 10*3/uL [facility] RBC (Bld) [#/Vol] 3.94 10*6/uL 3.80 - 5.20 10*6/uL [facility] WBC (Bld) [#/Vol] 5.2 10*3/uL 3.6 - 10.7 10*3/uL [facility] CBC WITH AUTO DIFFERENTIALon 01-16-2025 Basophils (Bld) [#/Vol] 0.0 10*3/uL Normal 0.0-0.2 [facility] Comment on above: Performed By: #### L [id number] ####[employer] Area Supervisor: ERIKA ANGELO ([phone])[facility])[address] [place] [address] Basophils/100 WBC (Bld) 0.6 % Normal 0.0-2.0 [facility] Comment on above: Performed By: #### L [id number] ####[employer] Area Supervisor: ERIKA ANGELO ([phone])[facility])[address] [place] [address] Eosinophils (Bld) [#/Vol] 0.1 10*3/uL Normal 0.0-0.5 [facility] Comment on above: Performed By: #### L [id number] ####[employer] Area Supervisor: ERIKA ANGELO ([phone])[facility])[address] [place] [address] Eosinophils/100 WBC (Bld) 1.7 % Normal 0.0-6.0 [facility] Comment on above: Performed By: #### L [id number] ####[employer] Area Supervisor: ERIKA ANGELO ([phone])[facility])[address] [place] [address] Erythrocyte distribution width (RBC) [Ratio] 14.7 % Normal 11.5-15.0 [facility] Comment on above: Performed By: #### L [id number] ####[employer] Area Supervisor: ERIKA ANGELO ([phone])[facility])[address] [place] [address] Hematocrit (Bld) [Volume fraction] 34.6 % Low 35.0-47.0 [facility] Comment on above: Performed By: #### L [id number] ####[employer] Area Supervisor: ERIKA ANGELO ([phone])[facility])[address] [place] [address] Hemoglobin (Bld) [Mass/Vol] 10.8 g/dL Low 11.7-16.0 [facility] Comment on above: Performed By: #### L [id number] ####[employer] Area Supervisor: ERIKA ANGELO ([phone])[address] IMMATURE GRANS % 0.4 % Normal 0.0-2.0 [facility] Comment on above: Performed By: #### L [id number] ####[employer] Area Supervisor: ERIKA ANGELO ([phone])[address] IMMATURE GRANS ABSOLUTE 0.0 10*3/uL Normal <0.1 [facility] Comment on above: Performed By: #### L [id number] ####[employer] Area Supervisor: ERIKA ANGELO ([phone])[facility])[address] [place] [address] Lymphocytes (Bld) [#/Vol] 2.0 10*3/uL Normal 1.0-4.3 [facility] Comment on above: Performed By: #### L [id number] ####[employer] Area Supervisor: ERIKA ANGELO ([phone])[address] Lymphocytes/100 WBC (Bld) 38.8 % Normal 15.0-45.0 [facility] Comment on above: Performed By: #### L [id number] ####[employer] Area Supervisor: ERIKA NAGELO ([phone])[facility])[address] [place] [address] MCH (RBC) [Entitic mass] 27.4 pg Normal 26.0-34.0 [facility] Comment on above: Performed By: #### L [id number] ####[employer] Area Supervisor: ERIKA ANGELO ([phone])[facility])[address] [place] [address] MCHC 31.2 % Normal 30.5-36.0 [facility] Comment on above: Performed By: #### L [id number] ####[employer] Area Supervisor: ERIKA ANGELO ([phone])[facility])[address] [place] [address] MCV (RBC) [Entitic vol] 87.8 fL Normal 77.0-99.0 [facility] Comment on above: Performed By: #### L [id number] ####[employer] Area Supervisor: ERIKA ANGELO ([phone])[facility] ([facility])[address] [place] [address] Monocytes (Bld) [#/Vol] 0.3 10*3/uL Normal 0.0-0.9 [facility] Comment on above: Performed By: #### L [id number] ####[employer] Area Supervisor: ERIKA ANGELO ([phone])[facility])[address] [place] [address] Monocytes/100 WBC (Bld) 5.8 % Normal 5.0-13.0 [facility] Comment on above: Performed By: #### L [id number] ####[employer] Area Supervisor: ERIKA ANGELO ([phone])[facility])[address] [place] [address] NEUTROPHILS ABSOLUTE 2.8 10*3/uL Normal 1.8-7.5 [facility] Comment on above: Performed By: #### L [id number] ####[employer] Area Supervisor: ERIKA ANGELO ([phone])[facility])[address] [place] [address] Neutrophils/100 WBC (Bld) 52.7 % Normal 38.0-82.0 [facility] Comment on above: Performed By: #### L [id number] ####[employer] Area Supervisor: ERIKA ANGELO ([phone])[facility])[address] [place] [address] NRBC 0.0 /100 WBCs Normal 0.0-2.0 [facility] Comment on above: Performed By: #### L [id number] ####[employer] Area Supervisor: ERIKA ANGELO ([phone])[facility])[address] [place] [address] Platelet mean volume (Bld) [Entitic vol] 10.5 fL Normal 9.0-12.7 [facility] Comment on above: Performed By: #### L [id number] ####[employer] Area Supervisor: ERIKA ANGELO ([phone])[facility] ([facility])[address] [place] [address] Platelets (Bld) [#/Vol] 327 10*3/uL Normal 140-440 [facility] Comment on above: Performed By: #### L [id number] ####[employer] Area Supervisor: ERIKA ANGELO ([phone])[facility])[address] [place] [address] RBC (Bld) [#/Vol] 3.94 10*6/uL Normal 3.80-5.20 [facility] Comment on above: Performed By: #### L [id number] ####[employer] Area Supervisor: ERIKA ANGELO ([phone])[facility])[address] [place] [address] WBC (Bld) [#/Vol] 5.2 10*3/uL Normal 3.6-10.7 [facility] Comment on above: Performed By: #### L [id number] ####[employer] Area Supervisor: ERIKA ANGELO ([phone])[facility])[address] [place] [address] COMPREHENSIVE METABOLIC PANE Patricio 01-16-2025 Albumin [Mass/Vol] 2.7 g/dL Low 3.5-5.0 [facility] Comment on above: Performed By: #### Hemal ESCAMILLA, LAB17 ####[employer] Area Supervisor: ERIKA ANGELO ([phone])[facility] ([facility])[address] [place] [address] ALP [Catalytic activity/Vol] 127 U/L Normal 40-150 [facility] Comment on above: Performed By: #### Hemal ESCAMILLA, LAB17 ####[employer] Area Supervisor: ERIKA ANGELO ([phone])[facility] ([facility])[address] [place] [address] ALT [Catalytic activity/Vol] 14 U/L Normal <30 [facility] Comment on above: Performed By: #### Hemal ESCAMILLA, LAB17 ####[employer] Area Supervisor: ERIKA ANGELO ([phone])[facility] ([facility])[address] [place] [address] Anion gap [Moles/Vol] 8 mmol/L Normal 3-13 [facility] Comment on above: Performed By: #### Hemal ESCAMILLA, LAB17 ####[employer] Area Supervisor: ERIKA ANGELO ([phone])[facility] ([facility])[address] [place] [address] AST [Catalytic activity/Vol] 18 U/L Normal <34 [facility] Comment on above: Performed By: #### Hemal ESCAMILLA, LAB17 ####[employer] Area Supervisor: ERIKA ANGELO ([phone])[facility])[address] [place] [address] Bilirubin [Mass/Vol] 0.2 mg/dL Normal <1.2 [facility] Comment on above: Performed By: #### Hemal ESCAMILLA, LAB17 ####[employer] Area Supervisor: ERIKA ANGELO ([phone])[facility])[address] [place] [address] Calcium [Mass/Vol] 8.8 mg/dL Normal 8.4-10.2 [facility] Comment on above: Performed By: #### L ABBriseida, LAB17 ####[employer] Area Supervisor: ERIKA ANGELO ([phone])[facility] ([facility])[address] [place] [address] Chloride [Moles/Vol] 112 mmol/L High 98-107 [facility] Comment on above: Performed By: #### L AB103, LAB17 ####[employer] Area Supervisor: ERIKA ANGELO ([phone])[facility])[address] [place] [address] CO2 [Moles/Vol] 21 mmol/L Low 22-29 [facility] Comment on above: Performed By: #### L 103, LAB17 ####[employer] Area Supervisor: ERIKA ANGELO ([phone])[facility])[address] [place] [address] Creatinine [Mass/Vol] 0.70 mg/dL Normal 0.57-1.11 [facility] Comment on above: Performed By: #### Hemal ESCAMILLA, LAB17 ####[employer] Area Supervisor: ERIKA ANGELO ([phone])[facility])[address] [place] [address] GLOMERULAR FILTRATION RATE ML/MIN/1.73 SQ M.PREDICTED >90.0 Normal >60.0 [facility] Comment on above: Result Comment: Calc ulation based on the Chronic Kidney Disease Epidemiology Collaboration (CKD-EPI) equation refit without adjustment for race Performed By: #### L FRANCINE, LAB17 ####[employer] Area Supervisor: ERIKA ANGELO ([phone])[facility])[address] [place] [address] Glucose [Mass/Vol] 100 mg/dL Normal 74-100 [facility] Comment on above: Performed By: #### L AB103, LAB17 ####[employer] Area Supervisor: ERIKA ANGELO ([phone])[facility])[address] [place] [address] Potassium [Moles/Vol] 3.5 mmol/L Normal 3.5-5.1 [facility] Comment on above: Result Comment: [facility] potassium values may be up to 0.5 mmol/L lower than serum values. Performed By: #### L AB103, LAB17 ####[employer] Area Supervisor: ERIKA ANGELO ([phone])[facility] ([facility])[address] [place] [address] Protein [Mass/Vol] 7.0 g/dL Normal 6.4-8.3 [facility] Comment on above: Performed By: #### L AB103, LAB17 ####[employer] Area Supervisor: ERIKA ANGELO ([phone])[facility] ([facility])[address] [place] [address] Sodium [Moles/Vol] 141 mmol/L Normal 136-145 [facility] Comment on above: Performed By: #### L AB103, LAB17 ####[employer] Area Supervisor: ERIKA ANGELO ([phone])[facility] ([facility])[address] [place] [address] Urea nitrogen [Mass/Vol] 14 mg/dL Normal 8-21 [facility] Comment on above: Performed By: #### L AB103, LAB17 ####[employer] Area Supervisor: ERIKA ANGELO ([phone])[facility] ([facility])[address] [place] [address] Comprehensive metabolic 1998 panelon 01-16-2025 Albumin [Mass/Vol] 2.7 g/dL Low 3.5 - 5.0 g/dL [facility] ALP [Catalytic activity/Vol] 127 U/L 40 - 150 U/L [facility] ALT [Catalytic activity/Vol] 14 U/L NINF - 30 U/L [facility] Anion gap [Moles/Vol] 8 mmol/L 3 - 13 mmol/L [facility] AST [Catalytic activity/Vol] 18 U/L NINF - 34 U/L [facility] Bilirubin [Mass/Vol] 0.2 mg/dL NINF - 1.2 mg/dL [facility] Calcium [Mass/Vol] 8.8 mg/dL 8.4 - 10. 2 mg/dL [facility] Chloride [Moles/Vol] 112 mmol/L High 98 - 10 7 mmol/L [facility] CO2 [Moles/Vol] 21 mmol/L Low 22 - 29 mmol/L [facility] Creatinine [Mass/Vol] 0.7 mg/dL 0.57 - 1.11 mg/dL [facility] GFR/1.73 sq M.predicted (S/P/Bld) [Vol rate/Area] - PINF [facility] Comment on above: Calculation based on the Chronic Kidney Disease Epidemiology Collaboration (CKD-EPI) equation refit without adjustment for race Glucose [Mass/Vol] 100 mg/dL 74 - 100 mg/dL [facility] Interpretation and review of laboratory results Abnormal [facility] Potassium [Moles/Vol] 3.5 mmol/L 3.5 - 5.1 mmol/L [facility] Comment on above: Plasma potassium stacey ues may be up to 0.5 mmol/L lower than serum values. Protein [Mass/Vol] 7 g/dL 6.4 - 8.3 g/dL [facility] Sodium [Moles/Vol] 141 mmol/L 136 - 145 mmol/L [facility] Urea nitrogen [Mass/Vol] 14 mg/dL 8 - 21 mg/dL [facility] Laboratory - Chemistry and C hemistry - challengeon 01-16-2025 Magnesium [Mass/Vol] 2.2 mg/dL 1.6 - 2 .6 mg/dL [facility] MAGNESIUMon 01-16-2025 Magnesium [Mass/Vol] 2.2 mg/dL Normal 1.6-2.6 [facility] Comment on above: Result Comment: BRIANA Cummings COMMENTS: Higher values can be expected in females during menses. Performed By: #### L AB103, LAB17 ####[employer] Area Supervisor: ERIKA ANGELO ([phone])[address] Magnesium [Mass/Vol]on 01-16 Interpretation and review of laboratory results Normal [facility] Higher values can be expected in females during menses. [facility] Progress Noteon 01-16-2025 Progress Note Nutrition rescreen completed. Patient referred to the Dietitian. Pressure injury. Normal [facility] CBC W Auto Differential pane l (Bld)Ordered By: Flip Kimball on 01-15-2025 Basophils (Bld) [#/Vol] 0 10*3/uL 0.0 - 0.2 10*3/uL [facility] Basophils/100 WBC (Bld) 0.6 % 0.0 - 2.0 % [facility] Eosinophils (Bld) [#/Vol] 0.1 10*3/uL 0.0 - 0.5 10*3/uL [facility] Eosinophils/100 WBC (Bld) 1.2 % 0.0 - 6.0 % [facility] Erythrocyte distribution width (RBC) [Ratio] 14.7 % 11.5 - 15.0 % [facility] Hematocrit (Bld) [Volume fraction] 37 % 35.0 - 47.0 % [facility] Hemoglobin (Bld) [Mass/Vol] 11.4 g/dL Low 11.7 - 16.0 g/dL [facility] Immature granulocytes (Bld) [#/Vol] 0 10*3/uL NINF - 0.1 10*3/uL [facility] Immature granulocytes/100 WBC (Bld) 0.3 % 0.0 - 2.0 % [facility] Interpretation and review of laboratory results Abnormal [facility] Lymphocytes (Bld) [#/Vol] 1.6 10*3/uL 1.0 - 4.3 10*3/uL [facility] Lymphocytes/100 WBC (Bld) 24.2 % 15.0 - 45.0 % [facility] MCH (RBC) [Entitic mass] 27.5 pg 26.0 - 34.0 pg [facility] MCHC (RBC) [Mass/Vol] 30.8 % 30.5 - 36.0 % [facility] MCV (RBC) [Entitic vol] 89.2 fL 77.0 - 99.0 fL [facility] Monocytes (Bld) [#/Vol] 0.4 10*3/uL 0.0 - 0.9 10*3/uL [facility] Monocytes/100 WBC (Bld) 6.7 % 5.0 - 13.0 % [facility] Neutrophils (Bld) [#/Vol] 4.4 10*3/uL 1.8 - 7.5 10*3/uL [facility] Neutrophils/100 WBC (Bld) 67 % 38.0 - 82.0 % [facility] Nucleated RBC/100 WBC (Bld) [Ratio] 0 % [facility] Platelet mean volume (Bld) [Entitic vol] 10.4 fL 9.0 - 12.7 fL [facility] Platelets (Bld) [#/Vol] 309 10*3/uL 140 - 440 10*3/uL [facility] RBC (Bld) [#/Vol] 4.15 10*6/uL 3.80 - 5.20 10*6/uL [facility] WBC (Bld) [#/Vol] 6.6 10*3/uL 3.6 - 10.7 10*3/uL [facility] CBC WITH AUTO DIFFERENTIALon 01-15-2025 Basophils (Bld) [#/Vol] 0.0 10*3/uL Normal 0.0-0.2 [facility] Comment on above: Performed By: #### L [id number] ####[employer] Area Supervisor: ERIKA ANGELO ([phone])[facility])[address] [place] [address] Basophils/100 WBC (Bld) 0.6 % Normal 0.0-2.0 [facility] Comment on above: Performed By: #### L [id number] ####[employer] Area Supervisor: ERIKA ANGELO ([phone])[facility] ([facility])[address] [place] [address] Eosinophils (Bld) [#/Vol] 0.1 10*3/uL Normal 0.0-0.5 [facility] Comment on above: Performed By: #### L [id number] ####[employer] Area Supervisor: ERIKA ANGELO ([phone])[facility] ([facility])[address] [place] [address] Eosinophils/100 WBC (Bld) 1.2 % Normal 0.0-6.0 [facility] Comment on above: Performed By: #### L [id number] ####[employer] Area Supervisor: ERIKA ANGELO ([phone])[facility])[address] [place] [address] Erythrocyte distribution width (RBC) [Ratio] 14.7 % Normal 11.5-15.0 [facility] Comment on above: Performed By: #### L [id number] ####[employer] Area Supervisor: ERIKA ANGELO ([phone])[facility] [address] Hematocrit (Bld) [Volume fraction] 37.0 % Normal 35.0-47.0 [facility] Comment on above: Performed By: #### L [id number] ####[employer] Area Supervisor: ERIKA ANGELO ([phone])[facility])[address] [place] [address] Hemoglobin (Bld) [Mass/Vol] 11.4 g/dL Low 11.7-16.0 [facility] Comment on above: Performed By: #### L [id number] ####[employer] Area Supervisor: ERIKA ANGELO ([phone])[facility])[address] [place] [address] IMMATURE GRANS % 0.3 % Normal 0.0-2.0 [facility] Comment on above: Performed By: #### L [id number] ####[employer] Area Supervisor: ERIKA ANGELO ([phone])[facility])[address] [place] [address] IMMATURE GRANS ABSOLUTE 0.0 10*3/uL Normal <0.1 [facility] Comment on above: Performed By: #### L [id number] ####[employer] Area Supervisor: ERIKA ANGELO ([phone])[facility])[address] [place] [address] Lymphocytes (Bld) [#/Vol] 1.6 10*3/uL Normal 1.0-4.3 [facility] Comment on above: Performed By: #### L [id number] ####[employer] Area Supervisor: ERIKA ANGELO ([phone])[facility])[address] [place] [address] Lymphocytes/100 WBC (Bld) 24.2 % Normal 15.0-45.0 [facility] Comment on above: Performed By: #### L [id number] ####[employer] Area Supervisor: ERIKA ANGELO ([phone])[facility])[address] [place] [address] MCH (RBC) [Entitic mass] 27.5 pg Normal 26.0-34.0 [facility] Comment on above: Performed By: #### L [id number] ####[employer] Area Supervisor: ERIKA ANGELO ([phone])[facility])[address] [place] [address] MCHC 30.8 % Normal 30.5-36.0 [facility] Comment on above: Performed By: #### L [id number] ####[employer] Area Supervisor: ERIKA ANGELO ([phone])[facility])[address] [place] [address] MCV (RBC) [Entitic vol] 89.2 fL Normal 77.0-99.0 [facility] Comment on above: Performed By: #### L [id number] ####[employer] Area Supervisor: ERIKA ANGELO ([phone])[facility])[address] [place] [address] Monocytes (Bld) [#/Vol] 0.4 10*3/uL Normal 0.0-0.9 [facility] Comment on above: Performed By: #### L [id number] ####[employer] Area Supervisor: ERIKA ANGELO ([phone])[facility])[address] [place] [address] Monocytes/100 WBC (Bld) 6.7 % Normal 5.0-13.0 [facility] Comment on above: Performed By: #### L [id number] ####[employer] Area Supervisor: ERIKA ANGELO ([phone])[facility])[address] [place] [address] NEUTROPHILS ABSOLUTE 4.4 10*3/uL Normal 1.8-7.5 [facility] Comment on above: Performed By: #### L [id number] ####[employer] Area Supervisor: ERIKA ANGELO ([phone])[facility])[address] [place] [address] Neutrophils/100 WBC (Bld) 67.0 % Normal 38.0-82.0 [facility] Comment on above: Performed By: #### L [id number] ####[employer] Area Supervisor: ERIKA [phone])[facility] ([facility])[address] [place] [address] NRBC 0.0 /100 WBCs Normal 0.0-2.0 [facility] Comment on above: Performed By: #### L [id number] ####[employer] Area Supervisor: ERIKA ANGELO ([phone])[facility])[address] [place] [address] Platelet mean volume (Bld) [Entitic vol] 10.4 fL Normal 9.0-12.7 [facility] Comment on above: Performed By: #### L [id number] ####[employer] Area Supervisor: ERIKA ANGELO ([phone])[facility])[address] [place] [address] Platelets (Bld) [#/Vol] 309 10*3/uL Normal 140-440 [facility] Comment on above: Performed By: #### L [id number] ####[employer] Area Supervisor: ERIKA ANGELO ([phone])[facility] ([facility])[address] [place] [address] RBC (Bld) [#/Vol] 4.15 10*6/uL Normal 3.80-5.20 [facility] Comment on above: Performed By: #### L [id number] ####[employer] Area Supervisor: ERIKA ANGELO ([phone])[facility])[address] [place] [address] WBC (Bld) [#/Vol] 6.6 10*3/uL Normal 3.6-10.7 [facility] Comment on above: Performed By: #### L [id number] ####[employer] Area Supervisor: ERIKA ANGELO ([phone])[facility])[address] [place] [address] COMPREHENSIVE METABOLIC PANE Patricio 01-15-2025 Albumin [Mass/Vol] 2.7 g/dL Low 3.5-5.0 [facility] Comment on above: Performed By: #### L AB17 ####[employer] Area Supervisor: ERIKA ANGELO ([phone])[facility] [place] [address] ALP [Catalytic activity/Vol] 116 U/L Normal 40-150 [facility] Comment on above: Performed By: #### L AB17 ####[employer] Area Supervisor: ERIKA ANGELO ([phone])[facility] ([facility])[address] [place] [address] ALT [Catalytic activity/Vol] 18 U/L Normal <30 [facility] Comment on above: Performed By: #### L AB17 ####[employer] Area Supervisor: ERIKA ANGELO ([phone])[facility] ([facility])[address] [place] [address] Anion gap [Moles/Vol] 6 mmol/L Normal 3-13 [facility] Comment on above: Performed By: #### L [id number] ####[employer] Area Supervisor: ERIKA ANGELO ([phone])[facility] ([facility])[address] [place] [address] AST [Catalytic activity/Vol] 24 U/L Normal <34 [facility] Comment on above: Performed By: #### L AB17 ####[employer] Area Supervisor: ERIKA ANGELO ([phone])[facility] ([facility])[address] [place] [address] Bilirubin [Mass/Vol] 0.3 mg/dL Normal <1.2 [facility] Comment on above: Performed By: #### L AB17 ####[employer] Area Supervisor: ERIKA ANGELO ([phone])[facility] ([facility])[address] [place] [address] Calcium [Mass/Vol] 8.6 mg/dL Normal 8.4-10.2 [facility] Comment on above: Performed By: #### L AB17 ####[employer] Area Supervisor: ERIKA ANGELO ([phone])[facility] ([facility])[address] [place] [address] Chloride [Moles/Vol] 113 mmol/L High 98-107 [facility] Comment on above: Performed By: #### L [id number] ####[employer] Area Supervisor: ERIKA ANGELO ([phone])[facility] [place] [address] CO2 [Moles/Vol] 21 mmol/L Low 22-29 [facility] Comment on above: Performed By: #### L AB17 ####[employer] Area Supervisor: ERIKA ANGELO ([phone])[facility] [facility])[address] [place] [address] Creatinine [Mass/Vol] 0.67 mg/dL Normal 0.57-1.11 [facility] Comment on above: Performed By: #### L [id number] ####[employer] Area Supervisor: ERIKA ANGELO ([phone])[facility])[address] [place] [address] GLOMERULAR FILTRATION RATE ML/MIN/1.73 SQ M.PREDICTED >90.0 Normal >60.0 [facility] Comment on above: Result Comment: Calc ulation based on the Chronic Kidney Disease Epidemiology Collaboration (CKD-EPI) equation refit without adjustment for race Performed By: #### L [id number] ####[employer] Area Supervisor: ERIKA ANGELO ([phone])[facility] ([facility])[address] [place] [address] Glucose [Mass/Vol] 94 mg/dL Normal 74-100 [facility] Comment on above: Performed By: #### L [id number] ####[employer] Area Supervisor: ERIKA ANGELO ([phone])[facility] ([facility])[address] [place] [address] Potassium [Moles/Vol] 4.1 mmol/L Normal 3.5-5.1 [facility] Comment on above: Result Comment: [facility] potassium values may be up to 0.5 mmol/L lower than serum values. Performed By: #### L [id number] ####[employer] Area Supervisor: ERIKA ANGELO ([phone])[facility] ([facility])[address] [place] [address] Protein [Mass/Vol] 7.0 g/dL Normal 6.4-8.3 [facility] Comment on above: Performed By: #### L [id number] ####[employer] Area Supervisor: ERIKA CABRERASOLEGregor ([phone])[facility] ([facility])[address] [place] [address] Sodium [Moles/Vol] 140 mmol/L Normal 136-145 [facility] Comment on above: Performed By: #### L [id number] ####[employer] Area Supervisor: ERIKA KAMARIGregor ([phone])[facility])[address] [place] [address] Urea nitrogen [Mass/Vol] 12 mg/dL Normal 8-21 [facility] Comment on above: Performed By: #### L [id number] ####[employer] Area Supervisor: ERIKA ANGELO ([phone])[facility] ([facility])[address] [place] [address] CT SHOULDER LEFT WO IV CONTR Freddy 01-15-2025 CT SHOULDER LEFT WO IV CONTRAST [facility] Name[facility]E [facility] 1975 [id number] Exam Date/Time: 01/15/2025 01:23 Procedure: CT SHOULDER [...] s/p L humeral head IO, c/f arthrotomy [facility] CT Shoulder - left WO vivi [facility] 01-15-2025 No fracture or dislocation of the left shoulder is identified. No joint effusion, fluid collection, or soft tissue gas is identified. Degenerative changes of the left acromioclavicular and glenohumeral joints. Report Dictated on Electronically Signed By: Preston Ferrari MD Electronically Signed Date/Time: 01/15/2025 2:43 AM EDT [facility] RADIOLOGY SYSTEM Patient Name: DIANA PUGH : 1975 Exam Date/Time: 01/15/2025 01:23 Procedure: [...] pleural effusion is noted, not fully imaged. [facility] RADIOLOGY SYSTEM Preston Ferrari MD - 01/15/2025 Patient Name: DIANA CALABRESE : 1975 [id number] Exam Date/Time: 01/15/2025 01:23 Procedure: CT SHOULDER [...] Electronically Signed Date/Time: 01/15/2025 2:43 AM EDT [facility] Radiology Study observation (narrative) [facility] Comprehensive metabolic 1998 panelon 01-15-2025 Albumin [Mass/Vol] 2.7 g/dL Low 3.5 - 5.0 g/dL [facility] ALP [Catalytic activity/Vol] 116 U/L 40 - 150 U/L [facility] ALT [Catalytic activity/Vol] 18 U/L NINF - 30 U/L [facility] Anion gap [Moles/Vol] 6 mmol/L 3 - 13 mmol/L [facility] AST [Catalytic activity/Vol] 24 U/L NINF - 34 U/L [facility] Bilirubin [Mass/Vol] 0.3 mg/dL NINF - 1.2 mg/dL [facility] Calcium [Mass/Vol] 8.6 mg/dL 8.4 - 10. 2 mg/dL [facility] Chloride [Moles/Vol] 113 mmol/L High 98 - 10 7 mmol/L [facility] CO2 [Moles/Vol] 21 mmol/L Low 22 - 29 mmol/L [facility] Creatinine [Mass/Vol] 0.67 mg/dL 0.57 - 1.11 mg/dL [facility] GFR/1.73 sq M.predicted (S/P/Bld) [Vol rate/Area] - PINF [facility] Comment on above: Calculation based on the Chronic Kidney Disease Epidemiology Collaboration (CKD-EPI) equation refit without adjustment for race Glucose [Mass/Vol] 94 mg/dL 74 - 100 mg/dL [facility] Interpretation and review of laboratory results Abnormal [facility] Potassium [Moles/Vol] 4.1 mmol/L 3.5 - 5.1 mmol/L [facility] Comment on above: Plasma potassium stacey ues may be up to 0.5 mmol/L lower than serum values. Protein [Mass/Vol] 7 g/dL 6.4 - 8.3 g/dL [facility] Sodium [Moles/Vol] 140 mmol/L 136 - 145 mmol/L [facility] Urea nitrogen [Mass/Vol] 12 mg/dL 8 - 21 mg/dL [facility] Consulton 01-15-2025 Consult [facility] Wound Care CONSULT Note Diana Calabrese AGE: [...] to follow Recommend to follow up at [facility] Outpatient wound care center after hospital [...] current facility-administere (more content not included)... Normal [facility] ECG 12-LEADon 01-15-2025 ECG 12-LEAD IMPRESSION: Sinus rhythm Borderline T abnormalities, inferior leads Electronically Signed On 01-15-2025 15:46:22 EDT by Mendel Santiago Normal [facility] Laboratory - Chemistry and C hemistry - challengeon 01-15-2025 Magnesium [Mass/Vol] 2.3 mg/dL 1.6 - 2 .6 mg/dL [employer] Magnesium [Mass/Vol]on 01-15 Higher values can be expected in females during menses. [employer] No Panel InformationOrdered By: Mendel Santiago on 01-15-2025 P [place] 65 degrees [employer] Work Phone: MO Interval 160 ms [employer] Work Phone: QRS [place] 60 degrees [employer] Work Phone: QRSD Interval 93 ms Hand[employer] Phone: QT Interval 380 ms Hand[employer] Phone: QTC Interval 425 ms Hand[employer] Phone: T Wave [place] -29 degrees [employer] Work Phone: [employer] Work Phone: No Panel Informationon 01-15 Sinus rhythm Borderline T abnormalities, inferior leads Electronically Signed On 01-15-2025 15:46:22 EDT by Mendel Fuller MD - 01/15/2025 IMPRESSION: Sinus rhythm Borderline T abnormalities, inferior leads Electronically Signed On 01-15-2025 15:46:22 EDT by Mendel Santiago [facility] Interpretation and review of laboratory results Normal [facility] Phosphate [Moles/Vol]on 12-29 Phosphate [Mass/Vol] 4.3 mg/dL 2.3 - 4 .7 mg/dL [facility] Progress Noteon 01-15-2025 Progress Note PHYSICAL THERAPY [facility] Name/MRN: Diana Calabrese ([id number]) Date: 01/15/2025 DC Note Chart reviewed. Per chart , pt is dependent with ADLs and is bed bound at baseline. Pt not appropriate for PT. Will sign off. Manny Bruner, PT Normal [facility] Progress Note OCCUPATIONAL THERAPY [facility] Name/MRN: Diana Calabrese ([id number]) Date: 01/15/2025 Chart reviewed. Per chart , pt is dependent with ADLs and is bed bound at baseline. Pt not appropriate for OT. Will sign off. Dakotah Barnes, OT Normal [facility] Progress Note CT Left Shoulder (01/15/25): no [...] Angela Quinones MD PGY-2, Orthopaedic Surgery Normal [facility] Vital signsOrdered By: Meet Jack on 01-15-2025 Heart rate 75 /min bpm [facility] Work Phone: 30on 01-14-2025 30 Problem: Knowledge D eficit Goal: Patient/family/caregiver demonstrates understanding of disease process, treatment plan, medications, and discharge instructions Outcome: Progressing Problem: Potential for Compromised Skin Integrity Goal: Skin Integrity is Maintained or Improved Outcome: Progressing Goal: Nutritional status is improving Outcome: Progressing Problem: Urinary Incontinence Goal: Perineal skin integrity is maintained or improved Outcome: Progressing Normal [facility] APTTon 01-14-2025 aPTT Coag (Bld) [Time] 29.1 s Normal 20.0-30.5 [facility] Comment on above: Result Comment: BRIANA Cummings COMMENTS: NOTE: The therapeutic time for Heparin anticoagulation, based on Xa activity inhibition, is an APTT of 46-80 seconds. Performed By: #### L [id number] ####[employer] Area Supervisor: ERIKA ANGELO ([phone])[facility])[address] [place] [address] BLOOD CULTUREon 01-14-2025 Bacteria identified Cx Nom (Bld) BLOOD CULTURE Reference No growth at 5 days ORDER COMMENTS: Blood Collection Site: Left Arm [ S = SUSCEPTIBLE R = RESISTANT I = INTERMEDIATE S-DD = Susceptible-dose dependent NS = Non-susceptible NO = No Interpretation ] Normal [facility] Comment on above: Performed By: #### L [id number] #### [employer] Area Supervisor: ERIKA ANGELO ([phone]) [facility] ([facility]) [address] [place] [address] Bacteria identified Cx Nom (Bld) BLOOD CULTURE Reference No growth at 5 days ORDER COMMENTS: Blood Collection Site: Right Femoral Line [ S = SUSCEPTIBLE R = RESISTANT I = INTERMEDIATE S-DD = Susceptible-dose dependent NS = Non-susceptible NO = No Interpretation ] Normal [facility] Comment on above: Performed By: #### L [id number] ####[employer] Area Supervisor: ERIKA ANGELO ([phone])[facility])[address] [place] [address] CBC W Auto Differential pane l (Bld)Ordered By: Melvi Jordan on 01-14-2025 Basophils (Bld) [#/Vol] 0 10*3/uL 0.0 - 0.2 10*3/uL [facility] Bas[facility]/100 WBC (Bld) 0.5 % 0.0 - 2.0 % [facility] Eosinophils (Bld) [#/Vol] 0.1 10*3/uL 0.0 - 0.5 10*3/uL [facility] Eosinophils/100 WBC (Bld) 1.6 % 0.0 - 6.0 % [facility] Erythrocyte distribution width (RBC) [Ratio] 14.8 % 11.5 - 15.0 % [facility] Hematocrit (Bld) [Volume fraction] 42.9 % 35.0 - 47.0 % [facility] Hemoglobin (Bld) [Mass/Vol] 13.5 g/dL 11.7 - 16.0 g/dL [facility] Immature granulocytes (Bld) [#/Vol] 0 10*3/uL NINF - 0.1 10*3/uL [facility] Immature granulocytes/100 WBC (Bld) 0.4 % 0.0 - 2.0 % [facility] Interpretation and review of laboratory results Normal [facility] Lymphocytes (Bld) [#/Vol] 2.3 10*3/uL 1.0 - 4.3 10*3/uL [facility] Lymphocytes/100 WBC (Bld) 31.7 % 15.0 - 45.0 % [facility] MCH (RBC) [Entitic mass] 27.6 pg 26.0 - 34.0 pg [facility] MCHC (RBC) [Mass/Vol] 31.5 % 30.5 - 36.0 % [facility] MCV (RBC) [Entitic vol] 87.7 fL 77.0 - 99.0 fL [facility] Monocytes (Bld) [#/Vol] 0.7 10*3/uL 0.0 - 0.9 10*3/uL [facility] Monocytes/100 WBC (Bld) 10 % 5.0 - 13.0 % [facility] Neutrophils (Bld) [#/Vol] 4.1 10*3/uL 1.8 - 7.5 10*3/uL [facility] Neutrophils/100 WBC (Bld) 55.8 % 38.0 - 82.0 % [facility] Nucleated RBC/100 WBC (Bld) [Ratio] 0 % [facility] Platelet mean volume (Bld) [Entitic vol] 10.1 fL 9.0 - 12.7 fL [facility] Comment on above: MPV is a calculated measurement using platelet volume ratio Platelets (Bld) [#/Vol] 363 10*3/uL 140 - 440 10*3/uL [facility] RBC (Bld) [#/Vol] 4.89 10*6/uL 3.80 - 5.20 10*6/uL [facility] WBC (Bld) [#/Vol] 7.3 10*3/uL 3.6 - 10.7 10*3/uL [facility] CBC WITH AUTO DIFFERENTIALon 01-14-2025 Basophils (Bld) [#/Vol] 0.0 10*3/uL Normal 0.0-0.2 [facility] Comment on above: Performed By: #### L [id number] ####[employer] Area Supervisor: ERIKA ANGELO ([phone])[facility] ([facility])[address] [place] [address] [place] Basophils/100 WBC (Bld) 0.5 % Normal 0.0-2.0 [facility] Comment on above: Performed By: #### L [id number] ####[employer] Area Supervisor: ERIKA ANGELO ([phone])[facility]ANNE JIMENEZ [facility] ([facility])[address] [place] [address] Eosinophils (Bld) [#/Vol] 0.1 10*3/uL Normal 0.0-0.5 [facility] Comment on above: Performed By: #### L [id number] ####[employer] Area Supervisor: ERIKA ANGELO ([phone])[facility] JIMENZE [facility]ITTMAN ([facility])[address] [place] [address] Eosinophils/100 WBC (Bld) 1.6 % Normal 0.0-6.0 [facility] Comment on above: Performed By: #### L [id number] ####[employer] Area Supervisor: ERIKA ANGELO ([phone])[facility] JIMENE[facility] ([facility])[address] [place] [address] Erythrocyte distribution width (RBC) [Ratio] 14.8 % Normal 11.5-15.0 [facility] Comment on above: Performed By: #### L [id number] ####[employer] Area Supervisor: ERIKA ANGELO ([phone])[facility] JIM[facility] ([facility])[address] [place] [address] Hematocrit (Bld) [Volume fraction] 42.9 % Normal 35.0-47.0 [facility] Comment on above: Performed By: #### L [id number] ####[employer] Area Supervisor: ERIKA ANGELO ([phone])[facility] JIMENEZ [facility] ([facility])[address] [place] [address] Hemoglobin (Bld) [Mass/Vol] 13.5 g/dL Normal 11.7-16.0 [facility] Comment on above: Performed By: #### L [id number] ####[employer] Area Supervisor: ERIKA ANGELO ([phone])[facility] ([facility])[address] [place] [address] IMMATURE GRANS % 0.4 % Normal 0.0-2.0 [facility] Comment on above: Performed By: #### L [id number] ####[employer] Area Supervisor: ERIKA ANGELO ([phone])[facility] JIMENE[facility] ([facility])[address] [place] [address] IMMATURE GRANS ABSOLUTE 0.0 10*3/uL Normal <0.1 [facility] Comment on above: Performed By: #### L [id number] ####[employer] Area Supervisor: ERIKA ANGELO ([phone])[facility] JIMENE[facility]IT[facility] ([facility])[address] [place] [address] Lymphocytes (Bld) [#/Vol] 2.3 10*3/uL Normal 1.0-4.3 [facility] Comment on above: Performed By: #### L [id number] ####[employer] Area Supervisor: ERIKA ANGELO ([phone])[facility] JIMENE[facility] R[facility] ([facility])[address] [place] [address] Lymphocytes/100 WBC (Bld) 31.7 % Normal 15.0-45.0 [facility] Comment on above: Performed By: #### L [id number] ####[employer] Area Supervisor: ERIKA ANGELO ([phone])[facility] JIMENE[facility] ([facility])[address] [place] [address] MCH (RBC) [Entitic mass] 27.6 pg Normal 26.0-34.0 [facility] Comment on above: Performed By: #### L [id number] ####[employer] Area Supervisor: ERIKA ANGELO ([phone])[facility] JIM[facility]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 19-41 [facility] Basophil percentageOrdered B y: Venkat Malin on 12-11-2024 Basophils/100 WBC (Bld) 0.5 % 0-1 [facility] CBC W/Diff, Automatedon 11-28 Absolute Lymph 2.74 X10 3/uL Normal 0.83-4.51 [facility] Comment on above: Order Comment: 302.1 Performed By: #### L [id number], L100.0500 #### [facility] [address] [place], [address] Absolute Neut 4.3 X10 3/uL Normal 2.0-7.7 [facility] Comment on above: Order Comment: 302.1 Performed By: #### L [id number], L100.0500 #### [facility] [address] [place], [address] Basophils/100 WBC (Bld) 0.5 % Normal 0-1 [facility] Comment on above: Order Comment: 302.1 Performed By: #### L 500.4050, L100.0500 #### [facility] [address] [place], [address] Eosinophils/100 WBC (Bld) 1.8 % Normal 0-5 [facility] Comment on above: Order Comment: 302.1 Performed By: #### L 500.4050, L100.0500 #### [facility] [address] [place], [address] Erythrocyte distribution width (RBC) [Ratio] 15.2 % High 11.6-14.6 [facility] Comment on above: Order Comment: 302.1 Performed By: #### L 500.4050, L100.0500 #### [facility] [address] [place], [address] Hematocrit (Bld) [Volume fraction] 37.1 % Normal 37-47 [facility] Comment on above: Order Comment: 302.1 Performed By: #### L 500.4050, L100.0500 #### [facility] [address] [place], [address] Hemoglobin (Bld) [Mass/Vol] 11.4 g/dL Low 12.0-15.0 [facility] Comment on above: Order Comment: 302.1 Performed By: #### L 500.4050, L100.0500 #### [facility] [address] [place], [address] IG% 0.300 Normal 0.0-0.9 [facility] Comment on above: Order Comment: 302.1 Result Comment: IG% - Immature Granulocytes (promyelocytes, myelocytes and metamyelocytes) > 1% indicates that a LEFT SHIFT is Present. Performed By: #### L 500.4050, L100.0500 #### [facility] [address] [place], [address] Lymphocytes/100 WBC (Bld) 34.7 % Normal 19-41 [facility] Comment on above: Order Comment: 302.1 Performed By: #### L 500.4050, L100.0500 #### [facility] [address] [place], [address] MCH (RBC) [Entitic mass] 27.5 pg Normal 27.0-32.0 [facility] Comment on above: Order Comment: 302.1 Performed By: #### L 500.4050, L100.0500 #### [facility] [address] [place], [address] MCHC (RBC) [Mass/Vol] 30.7 g/dL Low 32-36 [facility] Comment on above: Order Comment: 302.1 Performed By: #### L 500.4050, L100.0500 #### [facility] [address] [place], [address] MCV (RBC) [Entitic vol] 89.4 fL Normal 81-99 [facility] Comment on above: Order Comment: 302.1 Performed By: #### L 500.4050, L100.0500 #### [facility] [address] [place], [address] Monocytes/100 WBC (Bld) 8.9 % Normal 0-10 [facility] Comment on above: Order Comment: 302.1 Performed By: #### L 500.4050, L100.0500 #### [facility] [address] [place], [address] Neutrophils/100 WBC (Bld) 53.8 % Normal 47-70 [facility] Comment on above: Order Comment: 302.1 Performed By: #### L 500.4050, L100.0500 #### [facility] [address] [place], [address] Nucleated RBC (Bld) [#/Vol] 0 10*3/uL Normal 0-5 [facility] Comment on above: Order Comment: 302.1 Performed By: #### L 500.4050, L100.0500 #### [facility] [address] [place], [address] Platelet mean volume (Bld) [Entitic vol] 10.8 fL Normal 6.2-12.0 [facility] Comment on above: Order Comment: 302.1 Performed By: #### L 500.4050, L100.0500 #### [facility] [address] [place], [address] Platelets (Bld) [#/Vol] 345 10*3/uL Normal 150-450 [facility] Comment on above: Order Comment: 302.1 Performed By: #### L 500.4050, L100.0500 #### [facility] [address] [place], [address] RBC (Bld) [#/Vol] 4.15 10*6/uL Low 4.2-5.4 [facility] Comment on above: Order Comment: 302.1 Performed By: #### L 500.4050, L100.0500 #### [facility] [address] [place], [address] RDW SD 49.8 fl High 35.1-43.9 [facility] Comment on above: Order Comment: 302.1 Performed By: #### L 500.4050, L100.0500 #### [facility] [address] [place], [address] WBC (Bld) [#/Vol] 7.9 10*3/uL Normal 4.4-11.0 [facility] Comment on above: Order Comment: 302.1 Performed By: #### L 500.4050, L100.0500 #### [facility] [address] [place], [address] Eosinophil percentageOrdered By: Venkat Malin on 12-11-2024 Eosinophils/100 WBC (Bld) 1.8 % 0-5 [facility] Erythrocyte distribution wid th ratioOrdered By: Venkat Malin on 12-11-2024 Erythrocyte distribution width (RBC) [Ratio] 15.2 % High 11.6-14.6 [facility] Erythrocyte distribution wid th standard deviationOrdered By: Venkat Malin on 12-11-2024 Erythrocyte distribution width (RBC) [Ratio] 49.8 fl High 35.1-43.9 [facility] Hematocrit Auto (Bld) [Volum e fraction]Ordered By: Venkat Malin on 12-11-2024 Hematocrit (Bld) [Volume fraction] 37.1 % 37-47 [facility] Hemoglobin measurementOrdere d By: Venkat Malin on 12-11-2024 Hemoglobin (Bld) [Mass/Vol] 11.4 g/dL Low 12.0-15.0 [facility] Immature granulocytes/100 WB C Auto (Bld)Ordered By: Venkat Malin on 12-11-2024 Immature granulocytes/100 WBC (Bld) 0.300 % 0.0-0.9 [facility] Comment on above: IG% - Immature Granu locytes (promyelocytes, myelocytes and metamyelocytes) > 1% indicates that a LEFT SHIFT is Present. MCV (mean corpuscular volume ) determinationOrdered By: Venkat Malin on 12-11-2024 MCV (RBC) [Entitic vol] 89.4 fL 81-99 [facility] Mean corpuscular hemoglobin (MCH) determinationOrdered By: Venkat Malin on 12-11-2024 MCH (RBC) [Entitic mass] 27.5 pg 27.0-32.0 [facility] Mean corpuscular hemoglobin concentration (MCHC) determinationOrdered By: Venkat Malin on 12-11-2024 MCHC (RBC) [Mass/Vol] 30.7 g/dL Low 32-36 [facility] Mean platelet volume determi nationOrdered By: Venkat Malin on 12-11-2024 Platelet mean volume (Bld) [Entitic vol] 10.8 fL 6.2-12.0 [facility] Monocyte percentageOrdered B y: Venkat Malin on 12-11-2024 Monocytes/100 WBC (Bld) 8.9 % 0-10 [facility] Neutrophil percentageOrdered By: Venkat Malin on 12-11-2024 Neutrophils/100 WBC (Bld) 53.8 % 47-70 [facility] Nucleated red blood cell per centageOrdered By: Venkat Malin on 12-11-2024 Nucleated RBC/100 WBC (Bld) [Ratio] 0 % 0-5 [facility] Platelet countOrdered By: Dov Gonzalez on 12-11-2024 Platelets (Bld) [#/Vol] 345 10*3/uL 150-450 [facility] RBC Auto (Bld) [#/Vol]Ordere d By: Venkat Malin on 12-11-2024 RBC (Bld) [#/Vol] 4.15 10*6/uL Low 4.2-5.4 [facility] White blood cell (WBC) count Ordered By: Venkat Malin on 12-11-2024 WBC (Bld) [#/Vol] 7.9 10*3/uL 4.4-11.0 [facility] Anion gap in Serum or Plasma Ordered By: Venkat Malin on 10-24-2024 Anion gap [Moles/Vol] 10 mmol/L 5-15 [facility] BUN/creatinine ratioOrdered By: Venkat Malin on 10-24-2024 Urea nitrogen/Creatinine [Mass ratio] 21.5 mg/mg High 10-20 [facility] Bilirubin, totalOrdered By: Venkat Malin on 10-24-2024 Bilirubin [Mass/Vol] 0.18 mg/dL 0.00-1.30 [facility] CBC-Complete Blood Cnt No Di ffon 10-24-2024 Erythrocyte distribution width (RBC) [Ratio] 15.2 % High 11.6-14.6 [facility] Comment on above: Order Comment: 302.1 Performed By: #### M 100.2200, L400.0001 #### [facility] [address] [place] [address], [address] Hematocrit (Bld) [Volume fraction] 41.1 % Normal 37-47 [facility] Comment on above: Order Comment: 302.1 Performed By: #### M 100.2200, L400.0001 #### [facility] [address] [place], [address] Hemoglobin (Bld) [Mass/Vol] 12.7 g/dL Normal 12.0-15.0 [facility] Comment on above: Order Comment: 302.1 Performed By: #### M 100.2200, L400.0001 #### [facility] [address] [place], [address] MCH (RBC) [Entitic mass] 27.5 pg Normal 27.0-32.0 [facility] Comment on above: Order Comment: 302.1 Performed By: #### M 100.2200, L400.0001 #### [facility] [address] [place], [address] MCHC (RBC) [Mass/Vol] 30.9 g/dL Low 32-36 [facility] Comment on above: Order Comment: 302.1 Performed By: #### M 100.2200, L400.0001 #### [facility] [address] [place], [address] MCV (RBC) [Entitic vol] 89.0 fL Normal 81-99 [facility] Comment on above: Order Comment: 302.1 Performed By: #### M 100.2200, L400.0001 #### [facility] [address] [place], [address] Platelet mean volume (Bld) [Entitic vol] 11.1 fL Normal 6.2-12.0 [facility] Comment on above: Order Comment: 302.1 Performed By: #### M 100.2200, L400.0001 #### [facility] [address] [place], [address] Platelets (Bld) [#/Vol] 348 10*3/uL Normal 150-450 [facility] Comment on above: Order Comment: 302.1 Performed By: #### M 100.2200, L400.0001 #### [facility] [address] [place], [address] RBC (Bld) [#/Vol] 4.62 10*6/uL Normal 4.2-5.4 [facility] Comment on above: Order Comment: 302.1 Performed By: #### M 100.2200, L400.0001 #### [facility] [address] [place], [address] RDW SD 49.9 fl High 35.1-43.9 [facility] Comment on above: Order Comment: 302.1 Performed By: #### M 100.2200, L400.0001 #### [facility] [address] [place], [address] WBC (Bld) [#/Vol] 7.9 10*3/uL Normal 4.4-11.0 [facility] Comment on above: Order Comment: 302.1 Performed By: #### M 100.2200, L400.0001 #### [facility] [address] [place], [address] Carbon dioxide, total [Moles /volume] in Central venous bloodOrdered By: Venkat Malin on 10-24-2024 CO2 [Moles/Vol] 21.9 mmol/L 21.0-32.0 [facility] Chloride assayOrdered By: Dov Gonzalez on 10-24-2024 Chloride [Moles/Vol] 108 mmol/L 98-108 [facility] Comprehensive Metabolic Prof ilon 10-24-2024 Albumin [Mass/Vol] 3.0 g/dL Low 3.5-5.0 [facility] Comment on above: Order Comment: 302.1 Performed By: #### M 100.2200, L400.0001 #### [facility] [address] [place], [address] Albumin/Globulin [Mass ratio] 0.7 {ratio} Low 0.9-2.4 [facility] Comment on above: Order Comment: 302.1 Performed By: #### M 100.2200, L400.0001 #### [facility] [address] [place], [address] ALK PHOS 130 U/L High 35-104 [facility] Comment on above: Order Comment: 302.1 Performed By: #### M 100.2200, L400.0001 #### [facility] [address] [place], [address] ALT [Catalytic activity/Vol] 15 U/L Normal <=34 [facility] Comment on above: Order Comment: 302.1 Performed By: #### M 100.2200, L400.0001 #### [facility] [address] [place], [address] AST [Catalytic activity/Vol] 22 U/L Normal <=31 [facility] Comment on above: Order Comment: 302.1 Performed By: #### M 100.2200, L400.0001 #### [facility] [address] [place], [address] Bilirubin [Mass/Vol] 0.18 mg/dL Normal 0.00-1.30 [facility] Comment on above: Order Comment: 302.1 Performed By: #### M 100.2200, L400.0001 #### [facility] [address] [place], [address] BUN/CRE 21.5 RATIO High 10-20 [facility] Comment on above: Order Comment: 302.1 Performed By: #### M 100.2200, L400.0001 #### [facility] [address] [place], [address] Calcium [Mass/Vol] 8.7 mg/dL Normal 7.6-11.0 [facility] Comment on above: Order Comment: 302.1 Performed By: #### M 100.2200, L400.0001 #### [facility] [address] [place], [address] Chloride [Moles/Vol] 108 mmol/L Normal 98-108 [facility] Comment on above: Order Comment: 302.1 Performed By: #### M 100.2200, L400.0001 #### [facility] [address] [place], [address] CO2 [Moles/Vol] 21.9 mmol/L Normal 21.0-32.0 [facility] Comment on above: Order Comment: 302.1 Performed By: #### M 100.2200, L400.0001 #### [facility] [address] [place], [address] Creatinine [Mass/Vol] 0.67 mg/dL Low 0.70-1.20 [facility] Comment on above: Order Comment: 302.1 Performed By: #### M 100.2200, L400.0001 #### [facility] [address] [place], [address] GAP 10 Normal 5-15 [facility] Comment on above: Order Comment: 302.1 Performed By: #### M 100.2200, L400.0001 #### [facility] [address] [place], [address] GFR/1.73 sq M.predicted among non-blacks MDRD (S/P/Bld) [Vol rate/Area] 107 mL/min/{1.73_m2} Normal >60 [facility] Comment on above: Order Comment: 302.1 Result Comment: mL/m in/1.73m2 CKD-EPI Creatinine Equation (2020) Performed By: #### M 100.2200, L400.0001 #### [facility] [address] [place], [address] Globulin (S) [Mass/Vol] 4.3 g/dL High 2.2-4.2 [facility] Comment on above: Order Comment: 302.1 Performed By: #### M 100.2200, L400.0001 #### [facility] [address] [place], [address] Glucose [Mass/Vol] 90 mg/dL Normal 70-99 [facility] Comment on above: Order Comment: 302.1 Performed By: #### M 100.2200, L400.0001 #### [facility] [address] [place], [address] Potassium [Moles/Vol] 3.9 mmol/L Normal 3.3-5.1 [facility] Comment on above: Order Comment: 302.1 Result Comment: Hemo lysis present, Results??could be affected. ?? Performed By: #### M 100.2200, L400.0001 #### [facility] [address] [place], [address] Sodium [Moles/Vol] 140 mmol/L Normal 133-145 [facility] Comment on above: Order Comment: 302.1 Performed By: #### M 100.2200, L400.0001 #### [facility] [address] [place], [address] T PROT 7.3 g/dL Normal 5.9-8.4 [facility] Comment on above: Order Comment: 302.1 Performed By: #### M 100.2200, L400.0001 #### [facility] [address] [place], [address] Urea nitrogen [Mass/Vol] 15 mg/dL Normal 4-19 [facility] Comment on above: Order Comment: 302.1 Performed By: #### M 100.2200, L400.0001 #### [facility] [address] [place], [address] Erythrocyte distribution wid th (RBC) [Ratio]Ordered By: Venkat Malin on 10-24-2024 Erythrocyte distribution width (RBC) [Entitic vol] 49.9 fL High 35.1-43.9 [facility] Erythrocyte distribution wid th ratioOrdered By: Venkat Malin on 10-24-2024 Erythrocyte distribution width (RBC) [Ratio] 15.2 % High 11.6-14.6 [facility] Erythrocyte distribution wid th standard deviationOrdered By: Venkat Malin on 10-24-2024 Erythrocyte distribution width (RBC) [Ratio] 49.9 fl High 35.1-43.9 [facility] GFR/1.73 sq M.predicted jose g non-blacks MDRD (S/P/Bld) [Vol rate/Area]Ordered By: Venkat Malin on 10-24-2024 Estimated GFR (MDRD) Non-Af Amer 107 >60 [facility] Comment on above: mL/min/1.73m2 CKD-EP I Creatinine Equation (2020) Glomerular filtration rate ( GFR) estimation/1.73 sq m using serum, plasma, or whole bOrdered By: Venkat Malin on 10-24-2024 GFR/1.73 sq M.predicted among non-blacks MDRD (S/P/Bld) [Vol rate/Area] 107 mL/min/{1.73_m2} >60 [facility] Comment on above: mL/min/1.73m2 CKD-EP I Creatinine Equation (2020) Hematocrit Auto (Bld) [Volum e fraction]Ordered By: Venkat Malin on 10-24-2024 Hematocrit (Bld) [Volume fraction] 41.1 % 37-47 [facility] Hemoglobin measurementOrdere d By: Venkat Malin on 10-24-2024 Hemoglobin (Bld) [Mass/Vol] 12.7 g/dL 12.0-15.0 [facility] - Chemistry and C hemistry - challengeOrdered By: Venkat Malin on 10-24-2024 AST [Catalytic activity/Vol] 22 U/L <32 [facility] MCV (mean corpuscular volume ) determinationOrdered By: Venkat Malin on 10-24-2024 MCV (RBC) [Entitic vol] 89.0 fL 81-99 [facility] Mean corpuscular hemoglobin (MCH) determinationOrdered By: Venkat Malin on 10-24-2024 MCH (RBC) [Entitic mass] 27.5 pg 27.0-32.0 [facility] Mean corpuscular hemoglobin concentration (MCHC) determinationOrdered By: Venkat Malin on 10-24-2024 MCHC (RBC) [Mass/Vol] 30.9 g/dL Low 32-36 [facility] Mean platelet volume determi nationOrdered By: Venkat Malin on 10-24-2024 Platelet mean volume (Bld) [Entitic vol] 11.1 fL 6.2-12.0 [facility] Platelet countOrdered By: Dov Gonzalez on 10-24-2024 Platelets (Bld) [#/Vol] 348 10*3/uL 150-450 [facility] Potassium (Unsp spec) [Mass/ Vol]Ordered By: Venkat Malin on 10-24-2024 Potassium [Moles/Vol] 3.9 mmol/L 3.3-5.1 [facility] Comment on above: Hemolysis present, R esults could be affected. Potassium measurement (mass/ volume)Ordered By: Venkat Malin on 10-24-2024 Potassium (Unsp spec) [Mass/Vol] 3.9 mmol/L 3.3-5.1 [facility] Comment on above: Hemolysis present, R esults could be affected. RBC Auto (Bld) [#/Vol]Ordere d By: Venkat Malin on 10-24-2024 RBC (Bld) [#/Vol] 4.62 10*6/uL 4.2-5.4 [facility] Serum creatinine measurement (mass/volume)Ordered By: Venkat Malin on 10-24-2024 Creatinine [Mass/Vol] 0.67 mg/dL Low 0.70-1.20 [facility] Serum globulin measurementOr dered By: Venkat Malin on 10-24-2024 Globulin (S) [Mass/Vol] 4.3 g/dL High 2.2-4.2 [facility] Serum glucose measurement (m ass/volume)Ordered By: Venkat Malin on 10-24-2024 Glucose [Mass/Vol] 90 mg/dL 70-99 [facility] Serum or plasma alanine gregorio otransferase (ALT) measurementOrdered By: Venkat Malin on 10-24-2024 ALT [Catalytic activity/Vol] 15 U/L <35 [facility] Serum or plasma albumin kavin urement (mass/volume)Ordered By: Venkat Malin on 10-24-2024 Albumin [Mass/Vol] 3.0 g/dL Low 3.5-5.0 [facility] Serum or plasma albumin/glob ulin mass ratioOrdered By: Venkat Malin on 10-24-2024 Albumin/Globulin [Mass ratio] 0.7 {ratio} Low 0.9-2.4 [facility] Serum or plasma alkaline raymond sphatase measurementOrdered By: Venkat Malin on 10-24-2024 ALP [Catalytic activity/Vol] 130 U/L High 35-104 [facility] Serum or plasma calcium kavin urement (mass/volume)Ordered By: Venkat Malin on 10-24-2024 Calcium [Mass/Vol] 8.7 mg/dL 7.6-11.0 [facility] Serum or plasma urea nitroge n measurement (mass/volume)Ordered By: Venkat Malin on 10-24-2024 Urea nitrogen [Mass/Vol] 15 mg/dL 4-19 [facility] Sodium levelOrdered By: Sai Malin on 10-24-2024 Sodium [Moles/Vol] 140 mmol/L 133-145 [facility] Total proteinOrdered By: Sarah Malin on 10-24-2024 Protein [Mass/Vol] 7.3 g/dL 5.9-8.4 [facility] White blood cell (WBC) count Ordered By: Venkat Malin on 10-24-2024 WBC (Bld) [#/Vol] 7.9 10*3/uL 4.4-11.0 [facility] Albumin to globulin ratioOrd ered By: Venkat Malin on 09-03-2024 Albumin/Globulin [Mass ratio] 0.5 {ratio} Low 0.9-2.4 [facility] Bilirubin, totalOrdered By: Venkat Malin on 09-03-2024 Bilirubin [Mass/Vol] 0.20 mg/dL 0.20-1.00 [facility] Comment on above: For patients on eltr ombopag therapy, use of Dimension [place] TBIL is not recommended. Blood urea nitrogen (BUN)/cr eatinine ratioOrdered By: Venkat Malin on 09-03-2024 Urea nitrogen/Creatinine [Mass ratio] 24.2 mg/mg High 10-20 [facility] CBC-Complete Blood Cnt No Di ffon 09-03-2024 Erythrocyte distribution width (RBC) [Ratio] 15.0 % High 11.6-14.6 [facility] Comment on above: Order Comment: 302.1 Performed By: #### L 500.4050, L100.0500 #### [facility] [address] [place], [address] Hematocrit (Bld) [Volume fraction] 37.9 % Normal 37-47 [facility] Comment on above: Order Comment: 302.1 Performed By: #### L 500.4050, L100.0500 #### [facility] [address] [place], [address] Hemoglobin (Bld) [Mass/Vol] 11.6 g/dL Low 12.0-15.0 [facility] Comment on above: Order Comment: 302.1 Performed By: #### L [id number], L100.0500 #### [facility] [address] [place], [address] MCH (RBC) [Entitic mass] 27.4 pg Normal 27.0-32.0 [facility] Comment on above: Order Comment: 302.1 Performed By: #### L [id number], L100.0500 #### [facility] [address] [place], [address] MCHC (RBC) [Mass/Vol] 30.6 g/dL Low 32-36 [facility] Comment on above: Order Comment: 302.1 Performed By: #### L 500.4050, L100.0500 #### [facility] [address] [place], [address] MCV (RBC) [Entitic vol] 89.4 fL Normal 81-99 [facility] Comment on above: Order Comment: 302.1 Performed By: #### L [id number], L100.0500 #### [facility] [address] [place], [address] Platelet mean volume (Bld) [Entitic vol] 11.2 fL Normal 6.2-12.0 [facility] Comment on above: Order Comment: 302.1 Performed By: #### L 500.4050, L100.0500 #### [facility] [address] [place], [address] Platelets (Bld) [#/Vol] 344 10*3/uL Normal 150-450 [facility] Comment on above: Order Comment: 302.1 Performed By: #### L 500.4050, L100.0500 #### [facility] [address] [place], [address] RBC (Bld) [#/Vol] 4.24 10*6/uL Normal 4.2-5.4 [facility] Comment on above: Order Comment: 302.1 Performed By: #### L 500.4050, L100.0500 #### [facility] [address] [place], [address] RDW SD 49.1 fl High 35.1-43.9 [facility] Comment on above: Order Comment: 302.1 Performed By: #### L [id number], L100.0500 #### [facility] [address] [place], [address] WBC (Bld) [#/Vol] 7.0 10*3/uL Normal 4.4-11.0 [facility] Comment on above: Order Comment: 302.1 Performed By: #### L 500.4050, L100.0500 #### [facility] [address] [place], [address] Carbon dioxide measurementOr dered By: Venkat Malin on 09-03-2024 CO2 [Moles/Vol] 23.0 mmol/L 21.0-32.0 [facility] Chloride measurementOrdered By: Venkat Malin on 09-03-2024 Chloride [Moles/Vol] 109 mmol/L High 98-107 [facility] Comprehensive Metabolic Prof ilon 09-03-2024 Albumin [Mass/Vol] 2.3 g/dL Low 3.2-5.0 [facility] Comment on above: Order Comment: 302.1 Performed By: #### L 500.4050, L100.0500 #### [facility] [address] [place], [address] Albumin/Globulin [Mass ratio] 0.5 {ratio} Low 0.9-2.4 [facility] Comment on above: Order Comment: 302.1 Performed By: #### L 500.4050, L100.0500 #### [facility] [address] [place], [address] ALK P 116 U/L Normal 45-117 [facility] Comment on above: Order Comment: 302.1 Performed By: #### L 500.4050, L100.0500 #### [facility] [address] [place], [address] ALT [Catalytic activity/Vol] 15 U/L Normal 13-56 [facility] Comment on above: Order Comment: 302.1 Performed By: #### L 500.4050, L100.0500 #### [facility] [address] [place], [address] AST [Catalytic activity/Vol] 13 U/L Low 15-37 [facility] Comment on above: Order Comment: 302.1 Performed By: #### L 500.4050, L100.0500 #### [facility] [address] [place], [address] Bilirubin [Mass/Vol] 0.20 mg/dL Normal 0.20-1.00 [facility] Comment on above: Order Comment: 302.1 Result Comment: For patients on eltrombopag therapy, use of Dimension [place] TBIL is not recommended. Performed By: #### L 500.4050, L100.0500 #### [facility] [address] [place], [address] BUN/CRE 24.2 RATIO High 10-20 [facility] Comment on above: Order Comment: 302.1 Performed By: #### L 500.4050, L100.0500 #### [facility] [address] [place], [address] CA,Total 8.8 mg/dL Normal 8.5-10.1 [facility] Comment on above: Order Comment: 302.1 Performed By: #### L 500.4050, L100.0500 #### [facility] [address] [place], [address] Chloride [Moles/Vol] 109 mmol/L High 98-107 [facility] Comment on above: Order Comment: 302.1 Performed By: #### L 500.4050, L100.0500 #### [facility] [address] [place], [address] CO2 [Moles/Vol] 23.0 mmol/L Normal 21.0-32.0 [facility] Comment on above: Order Comment: 302.1 Performed By: #### L 500.4050, L100.0500 #### [facility] [address] [place], [address] Creatinine [Mass/Vol] 0.79 mg/dL Normal 0.55-1.02 [facility] Comment on above: Order Comment: 302.1 Result Comment: The validity of the calculated GFR GFRAA in patients over 70 years has not been determined. Clinical correlation is essential. Performed By: #### L 500.4050, L100.0500 #### [facility] [address] [place], [address] EST GFR - AA 100 mL/min Normal >60 [facility] Comment on above: Order Comment: 302.1 Result Comment: Afri can Taiwanese GFR Calc Performed By: #### L 500.4050, L100.0500 #### [facility] [address] [place], [address] GAP 6 Normal 5-15 [facility] Comment on above: Order Comment: 302.1 Performed By: #### L 500.4050, L100.0500 #### [facility] [address] [place], [address] GFR/1.73 sq M.predicted among non-blacks MDRD (S/P/Bld) [Vol rate/Area] 83 mL/min/{1.73_m2} Normal >60 [facility] Comment on above: Order Comment: 302.1 Result Comment: Non- GFR Calc Performed By: #### L 500.4050, L100.0500 #### [facility] [address] [place], [address] Globulin (S) [Mass/Vol] 5.1 g/dL High 2.2-4.2 [facility] Comment on above: Order Comment: 302.1 Performed By: #### L 500.4050, L100.0500 #### [facility] [address] [place], [address] Glucose [Mass/Vol] 84 mg/dL Normal 74-106 [facility] Comment on above: Order Comment: 302.1 Performed By: #### L 500.4050, L100.0500 #### [facility] [address] [place], [address] Potassium [Moles/Vol] 3.7 mmol/L Normal 3.5-5.1 [facility] Comment on above: Order Comment: 302.1 Performed By: #### L 500.4050, L100.0500 #### [facility] [address] [place], [address] Sodium [Moles/Vol] 138 mmol/L Normal 136-145 [facility] Comment on above: Order Comment: 302.1 Performed By: #### L 500.4050, L100.0500 #### [facility] [address] [place], [address] T PROT 7.4 g/dL Normal 6.4-8.2 [facility] Comment on above: Order Comment: 302.1 Performed By: #### L 500.4050, L100.0500 #### [facility] [address] [place], [address] Urea nitrogen [Mass/Vol] 19 mg/dL High 7-18 [facility] Comment on above: Order Comment: 302.1 Performed By: #### L 500.4050, L100.0500 #### [facility] [address] [place], [address] Erythrocyte distribution wid th ratioOrdered By: Venkat Malin on 09-03-2024 Erythrocyte distribution width (RBC) [Ratio] 15.0 % High 11.6-14.6 [facility] Erythrocyte distribution wid th standard deviationOrdered By: Venkat Malin on 09-03-2024 Erythrocyte distribution width (RBC) [Entitic vol] 49.1 fL High 35.1-43.9 [facility] Erythrocyte distribution width (RBC) [Ratio] 49.1 fl High 35.1-43.9 [facility] Estimated glomerular filtrat ion rate (GFR) AmericanOrdered By: Venkat Malin on 09-03-2024 Estimated GFR (MDRD) Amer 100 mL/min >60 [facility] Comment on above: GFR Calc Glomerular filtration rate ( GFR) estimationOrdered By: Venkat Malin on 09-03-2024 Estimated GFR (MDRD) Non-Af Amer 83 mL/min >60 [facility] Comment on above: Non- GFR Calc GFR/1.73 sq M.predicted among non-blacks MDRD (S/P/Bld) [Vol rate/Area] 83 mL/min/{1.73_m2} >60 [facility] Comment on above: Non- GFR Calc Glucose measurementOrdered B y: Venkat Malin on 09-03-2024 Glucose [Mass/Vol] 84 mg/dL 74-106 [facility] Hematocrit Auto (Bld) [Volum e fraction]Ordered By: Venkat Malin on 09-03-2024 Hematocrit (Bld) [Volume fraction] 37.9 % 37-47 [facility] Hemoglobin measurementOrdere d By: Venkat Malin on 09-03-2024 Hemoglobin (Bld) [Mass/Vol] 11.6 g/dL Low 12.0-15.0 [facility] Laboratory - Chemistry and C hemistry - challengeOrdered By: Venkat Malin on 09-03-2024 AST [Catalytic activity/Vol] 13 U/L Low 15-37 [facility] MCV (mean corpuscular volume ) determinationOrdered By: Venkat Malin on 09-03-2024 MCV (RBC) [Entitic vol] 89.4 fL 81-99 [facility] Mean corpuscular hemoglobin (MCH) determinationOrdered By: Venkat Malin on 09-03-2024 MCH (RBC) [Entitic mass] 27.4 pg 27.0-32.0 [facility] Mean corpuscular hemoglobin concentration (MCHC) determinationOrdered By: Venkat Malin on 09-03-2024 MCHC (RBC) [Mass/Vol] 30.6 g/dL Low 32-36 [facility] Mean platelet volume determi nationOrdered By: Venkat Malin on 09-03-2024 Platelet mean volume (Bld) [Entitic vol] 11.2 fL 6.2-12.0 [facility] Platelet countOrdered By: Dov Gonzalez on 09-03-2024 Platelets (Bld) [#/Vol] 344 10*3/uL 150-450 [facility] Potassium measurementOrdered By: Venkat Malin on 09-03-2024 Potassium [Moles/Vol] 3.7 mmol/L 3.5-5.1 [facility] RBC Auto (Bld) [#/Vol]Ordere d By: Venkat Malin on 09-03-2024 RBC (Bld) [#/Vol] 4.24 10*6/uL 4.2-5.4 [facility] Serum anion gap measurementO rdered By: Venkat Malin on 09-03-2024 Anion gap [Moles/Vol] 6 mmol/L 5-15 [facility] Serum globulin measurementOr dered By: Venkat Malin on 09-03-2024 Globulin (S) [Mass/Vol] 5.1 g/dL High 2.2-4.2 [facility] Serum or plasma alanine gregorio otransferase (ALT) measurementOrdered By: Venkat Malin on 09-03-2024 ALT [Catalytic activity/Vol] 15 U/L 13-56 [facility] Serum or plasma albumin kavin urement (mass/volume)Ordered By: Venkat Malin on 09-03-2024 Albumin [Mass/Vol] 2.3 g/dL Low 3.2-5.0 [facility] Serum or plasma alkaline raymond sphatase measurementOrdered By: Venkat Malin on 09-03-2024 ALP [Catalytic activity/Vol] 116 U/L 45-117 [facility] Serum or plasma calcium kavin urement (mass/volume)Ordered By: Venkat Malin on 09-03-2024 Calcium [Mass/Vol] 8.8 mg/dL 8.5-10.1 [facility] Serum or plasma creatinine m easurement (mass/volume)Ordered By: Venkat Malin on 09-03-2024 Creatinine [Mass/Vol] 0.79 mg/dL 0.55-1.02 [facility] Comment on above: The validity of the calculated GFR & GFRAA in patients over 70 years has not been determined. Clinical correlation is essential. Serum or plasma urea nitroge n measurement (mass/volume)Ordered By: Venkat Malin on 09-03-2024 Urea nitrogen [Mass/Vol] 19 mg/dL High 7-18 [facility] Sodium levelOrdered By: Sai Malin on 09-03-2024 Sodium [Moles/Vol] 138 mmol/L 136-145 [facility] Total proteinOrdered By: Sarah Malin on 09-03-2024 Protein [Mass/Vol] 7.4 g/dL 6.4-8.2 [facility] White blood cell (WBC) count Ordered By: Venkat Malin on 09-03-2024 WBC (Bld) [#/Vol] 7.0 10*3/uL 4.4-11.0 [facility] Albumin to globulin ratioOrd ered By: Venkat Malin on 07-25-2024 Albumin/Globulin [Mass ratio] 0.5 {ratio} Low 0.9-2.4 [facility] Bilirubin, totalOrdered By: Venkat Malin on 07-25-2024 Bilirubin [Mass/Vol] 0.20 mg/dL 0.20-1.00 [facility] Comment on above: For patients on eltr ombopag therapy, use of Dimension [place] TBIL is not recommended. Blood urea nitrogen (BUN)/cr eatinine ratioOrdered By: Venkat Malin on 07-25-2024 Urea nitrogen/Creatinine [Mass ratio] 22.3 mg/mg High 10-20 [facility] CBC-Complete Blood Cnt No Di ffon 07-25-2024 Erythrocyte distribution width (RBC) [Ratio] 14.9 % High 11.6-14.6 [facility] Comment on above: Order Comment: 302.1 Performed By: #### L 100.0500, L500.4050 #### [facility] Laboratory [address] [place], [address] Hematocrit (Bld) [Volume fraction] 38.9 % Normal 37-47 [facility] Comment on above: Order Comment: 302.1 Performed By: #### L 100.0500, L500.4050 #### [facility] [address] [place], [address] Hemoglobin (Bld) [Mass/Vol] 11.9 g/dL Low 12.0-15.0 [facility] Comment on above: Order Comment: 302.1 Performed By: #### L 100.0500, L500.4050 #### [facility] [address] [place], [address] MCH (RBC) [Entitic mass] 27.2 pg Normal 27.0-32.0 [facility] Comment on above: Order Comment: 302.1 Performed By: #### L 100.0500, L500.4050 #### [facility] [address] [place], [address] MCHC (RBC) [Mass/Vol] 30.6 g/dL Low 32-36 [facility] Comment on above: Order Comment: 302.1 Performed By: #### L 100.0500, L500.4050 #### [facility] [address] [place], [address] MCV (RBC) [Entitic vol] 89.0 fL Normal 81-99 [facility] Comment on above: Order Comment: 302.1 Performed By: #### L 100.0500, L500.4050 #### [facility] [address] [place], [address] Platelet mean volume (Bld) [Entitic vol] 10.7 fL Normal 6.2-12.0 [facility] Comment on above: Order Comment: 302.1 Performed By: #### L 100.0500, L500.4050 #### [facility] [address] [place], [address] Platelets (Bld) [#/Vol] 401 10*3/uL Normal 150-450 [facility] Comment on above: Order Comment: 302.1 Performed By: #### L 100.0500, L500.4050 #### [facility] [address] [place], [address] RBC (Bld) [#/Vol] 4.37 10*6/uL Normal 4.2-5.4 [facility] Comment on above: Order Comment: 302.1 Performed By: #### L 100.0500, L500.4050 #### [facility] [address] [place], [address] RDW SD 48.8 fl High 35.1-43.9 [facility] Comment on above: Order Comment: 302.1 Performed By: #### L 100.0500, L500.4050 #### [facility] [address] [place], [address] WBC (Bld) [#/Vol] 7.6 10*3/uL Normal 4.4-11.0 [facility] Comment on above: Order Comment: 302.1 Performed By: #### L 100.0500, L500.4050 #### [facility] [address] [place], [address] Carbon dioxide measurementOr dered By: Venkat Malin on 07-25-2024 CO2 [Moles/Vol] 26.0 mmol/L 21.0-32.0 [facility] Chloride measurementOrdered By: Venkat Malin on 07-25-2024 Chloride [Moles/Vol] 111 mmol/L High 98-107 [facility] Comprehensive Metabolic Prof ilon 07-25-2024 Albumin [Mass/Vol] 2.5 g/dL Low 3.2-5.0 [facility] Comment on above: Order Comment: 302.1 Performed By: #### L 100.0500, L500.4050 #### [facility] [address] [place], [address] Albumin/Globulin [Mass ratio] 0.5 {ratio} Low 0.9-2.4 [facility] Comment on above: Order Comment: 302.1 Performed By: #### L 100.0500, L500.4050 #### [facility] [address] [place], [address] ALK P 121 U/L High 45-117 [facility] Comment on above: Order Comment: 302.1 Performed By: #### L 100.0500, L500.4050 #### [facility] [address] [place], [address] ALT [Catalytic activity/Vol] 23 U/L Normal 13-56 [facility] Comment on above: Order Comment: 302.1 Performed By: #### L 100.0500, L500.4050 #### [facility] [address] [place], [address] AST [Catalytic activity/Vol] 21 U/L Normal 15-37 [facility] Comment on above: Order Comment: 302.1 Performed By: #### L 100.0500, L500.4050 #### [facility] [address] [place], [address] Bilirubin [Mass/Vol] 0.20 mg/dL Normal 0.20-1.00 [facility] Comment on above: Order Comment: 302.1 Result Comment: For patients on eltrombopag therapy, use of Dimension [place] TBIL is not recommended. Performed By: #### L 100.0500, L500.4050 #### [facility] [address] [place], [address] BUN/CRE 22.3 RATIO High 10-20 [facility] Comment on above: Order Comment: 302.1 Performed By: #### L 100.0500, L500.4050 #### [facility] [address] [place], [address] CA,Total 9.0 mg/dL Normal 8.5-10.1 [facility] Comment on above: Order Comment: 302.1 Performed By: #### L 100.0500, L500.4050 #### [facility] [address] [place], [address] Chloride [Moles/Vol] 111 mmol/L High 98-107 [facility] Comment on above: Order Comment: 302.1 Performed By: #### L 100.0500, L500.4050 #### [facility] [address] [place], [address] CO2 [Moles/Vol] 26.0 mmol/L Normal 21.0-32.0 [facility] Comment on above: Order Comment: 302.1 Performed By: #### L 100.0500, L500.4050 #### [facility] [address] [place], [address] Creatinine [Mass/Vol] 0.72 mg/dL Normal 0.55-1.02 [facility] Comment on above: Order Comment: 302.1 Result Comment: The validity of the calculated GFR GFRAA in patients over 70 years has not been determined. Clinical correlation is essential. Performed By: #### L 100.0500, L500.4050 #### [facility] [address] [place], [address] EST GFR - AA 112 mL/min Normal >60 [facility] Comment on above: Order Comment: 302.1 Result Comment: Afri can Taiwanese GFR Calc Performed By: #### L 100.0500, L500.4050 #### [facility] [address] [place], [address] GAP 3 Low 5-15 [facility] Comment on above: Order Comment: 302.1 Performed By: #### L 100.0500, L500.4050 #### [facility] [address] [place], [address] GFR/1.73 sq M.predicted among non-blacks MDRD (S/P/Bld) [Vol rate/Area] 92 mL/min/{1.73_m2} Normal >60 [facility] Comment on above: Order Comment: 302.1 Result Comment: Non- GFR Calc Performed By: #### L 100.0500, L500.4050 #### [facility] [address] [place], [address] Globulin (S) [Mass/Vol] 5.0 g/dL High 2.2-4.2 [facility] Comment on above: Order Comment: 302.1 Performed By: #### L 100.0500, L500.4050 #### [facility] [address] [place], [address] Glucose [Mass/Vol] 104 mg/dL Normal 74-106 [facility] Comment on above: Order Comment: 302.1 Result Comment: Fast ing Glucose result from 100 to 125 mg/dL suggests IMPAIRED HOMEOSTASIS per A.D.A. criteria. Performed By: #### L 100.0500, L500.4050 #### [facility] [address] [place], [address] Potassium [Moles/Vol] 3.8 mmol/L Normal 3.5-5.1 [facility] Comment on above: Order Comment: 302.1 Performed By: #### L 100.0500, L500.4050 #### [facility] [address] [place], [address] Sodium [Moles/Vol] 140 mmol/L Normal 136-145 [facility] Comment on above: Order Comment: 302.1 Performed By: #### L 100.0500, L500.4050 #### [facility] [address] [place], [address] T PROT 7.5 g/dL Normal 6.4-8.2 [facility] Comment on above: Order Comment: 302.1 Performed By: #### L 100.0500, L500.4050 #### [facility] [address] [place], [address] Urea nitrogen [Mass/Vol] 16 mg/dL Normal 7-18 [facility] Comment on above: Order Comment: 302.1 Performed By: #### L 100.0500, L500.4050 #### [facility] [address] [place], [address] Erythrocyte distribution wid th ratioOrdered By: Venkat Malin on 07-25-2024 Erythrocyte distribution width (RBC) [Ratio] 14.9 % High 11.6-14.6 [facility] Erythrocyte distribution wid th standard deviationOrdered By: Venkat Malin on 07-25-2024 Erythrocyte distribution width (RBC) [Entitic vol] 48.8 fL High 35.1-43.9 [facility] Estimated glomerular filtrat ion rate (GFR) AmericanOrdered By: Venkat Malin on 07-25-2024 Estimated GFR (MDRD) Amer 112 mL/min >60 [facility] Comment on above: GFR Calc Glomerular filtration rate ( GFR) estimationOrdered By: Venkat Malin on 07-25-2024 Estimated GFR (MDRD) Non-Af Amer 92 mL/min >60 [facility] Comment on above: Non- GFR Calc Glucose measurementOrdered B y: Venkat Malin on 07-25-2024 Glucose [Mass/Vol] 104 mg/dL 74-106 [facility] Comment on above: Fasting Glucose resu lt from 100 to 125 mg/dL suggests IMPAIRED HOMEOSTASIS per A.D.A. criteria. Hematocrit Auto (Bld) [Volum e fraction]Ordered By: Venkat Malin on 07-25-2024 Hematocrit (Bld) [Volume fraction] 38.9 % 37-47 [facility] Hemoglobin measurementOrdere d By: Venkat Malin on 07-25-2024 Hemoglobin (Bld) [Mass/Vol] 11.9 g/dL Low 12.0-15.0 [facility] Laboratory - Chemistry and C hemistry - challengeOrdered By: Venkat Malin on 07-25-2024 AST [Catalytic activity/Vol] 21 U/L 15-37 [facility] MCV (mean corpuscular volume ) determinationOrdered By: Venkat Malin on 07-25-2024 MCV (RBC) [Entitic vol] 89.0 fL 81-99 [facility] Mean corpuscular hemoglobin (MCH) determinationOrdered By: Venkat Malin on 07-25-2024 MCH (RBC) [Entitic mass] 27.2 pg 27.0-32.0 [facility] Mean corpuscular hemoglobin concentration (MCHC) determinationOrdered By: Venkat Malin on 07-25-2024 MCHC (RBC) [Mass/Vol] 30.6 g/dL Low 32-36 [facility] Mean platelet volume determi nationOrdered By: Venkat Malin on 07-25-2024 Platelet mean volume (Bld) [Entitic vol] 10.7 fL 6.2-12.0 [facility] Platelet countOrdered By: Dov Gonzalez on 07-25-2024 Platelets (Bld) [#/Vol] 401 10*3/uL 150-450 [facility] Potassium measurementOrdered By: Venkat Malin on 07-25-2024 Potassium [Moles/Vol] 3.8 mmol/L 3.5-5.1 [facility] RBC Auto (Bld) [#/Vol]Ordere d By: Venkat Malin on 07-25-2024 RBC (Bld) [#/Vol] 4.37 10*6/uL 4.2-5.4 [facility] Serum anion gap measurementO rdered By: Venkat Malin on 07-25-2024 Anion gap [Moles/Vol] 3 mmol/L Low 5-15 [facility] Serum globulin measurementOr dered By: Venkat Malin on 07-25-2024 Globulin (S) [Mass/Vol] 5.0 g/dL High 2.2-4.2 [facility] Serum or plasma alanine gregorio otransferase (ALT) measurementOrdered By: Venkat Malin on 07-25-2024 ALT [Catalytic activity/Vol] 23 U/L 13-56 [facility] Serum or plasma albumin kavin urement (mass/volume)Ordered By: Venkat Malin on 07-25-2024 Albumin [Mass/Vol] 2.5 g/dL Low 3.2-5.0 [facility] Serum or plasma alkaline raymond sphatase measurementOrdered By: Venkat Malin on 07-25-2024 ALP [Catalytic activity/Vol] 121 U/L High 45-117 [facility] Serum or plasma calcium kavin urement (mass/volume)Ordered By: Venkat Malin on 07-25-2024 Calcium [Mass/Vol] 9.0 mg/dL 8.5-10.1 [facility] Serum or plasma creatinine m easurement (mass/volume)Ordered By: Venkat Malin on 07-25-2024 Creatinine [Mass/Vol] 0.72 mg/dL 0.55-1.02 [facility] Comment on above: The validity of the calculated GFR & GFRAA in patients over 70 years has not been determined. Clinical correlation is essential. Serum or plasma urea nitroge n measurement (mass/volume)Ordered By: Venkat Malin on 07-25-2024 Urea nitrogen [Mass/Vol] 16 mg/dL 7-18 [facility] Sodium levelOrdered By: Sai Malin on 07-25-2024 Sodium [Moles/Vol] 140 mmol/L 136-145 [facility] Total proteinOrdered By: Sarah Malin on 07-25-2024 Protein [Mass/Vol] 7.5 g/dL 6.4-8.2 [facility] White blood cell (WBC) count Ordered By: Venkat Malin on 07-25-2024 WBC (Bld) [#/Vol] 7.6 10*3/uL 4.4-11.0 [facility] Albumin to globulin ratioOrd ered By: Venkat Malin on 06-24-2024 Albumin/Globulin [Mass ratio] 0.6 {ratio} Low 0.9-2.4 [facility] Bilirubin, totalOrdered By: Venkat Malin on 06-24-2024 Bilirubin [Mass/Vol] mg/dL Low 0.20-1.00 [facility] Comment on above: For patients on eltr ombopag therapy, use of Dimension [place] TBIL is not recommended. Blood urea nitrogen (BUN)/cr eatinine ratioOrdered By: Venkat Malin on 06-24-2024 Urea nitrogen/Creatinine [Mass ratio] 27.9 mg/mg High 10- [facility] CBC-Complete Blood Cnt No Di ffon 06-24-2024 Erythrocyte distribution width (RBC) [Ratio] 15.0 % High 11.6-14.6 [facility] Comment on above: Order Comment: 302-1 Performed By: #### L 500.9834, L100.0500 #### [facility] [address] [place], [address] Hematocrit (Bld) [Volume fraction] 38.9 % Normal 37-47 [facility] Comment on above: Order Comment: 302-1 Performed By: #### L 500.4050, L100.0500 #### [facility] [address] [place], [address] Hemoglobin (Bld) [Mass/Vol] 11.7 g/dL Low 12.0-15.0 [facility] Comment on above: Order Comment: 302-1 Performed By: #### L 500.4050, L100.0500 #### [facility] [address] [place], [address] MCH (RBC) [Entitic mass] 27.1 pg Normal 27.0-32.0 [facility] Comment on above: Order Comment: 302-1 Performed By: #### L 500.4050, L100.0500 #### [facility] [address] [place], [address] MCHC (RBC) [Mass/Vol] 30.1 g/dL Low 32-36 [facility] Comment on above: Order Comment: 302-1 Performed By: #### L 500.4050, L100.0500 #### [facility] [address] [place], [address] MCV (RBC) [Entitic vol] 90.0 fL Normal 81-99 [facility] Comment on above: Order Comment: 302-1 Performed By: #### L 500.4050, L100.0500 #### [facility] [address] [place], [address] Platelet mean volume (Bld) [Entitic vol] 11.4 fL Normal 6.2-12.0 [facility] Comment on above: Order Comment: 302-1 Performed By: #### L 500.4050, L100.0500 #### [facility] [address] [place], [address] Platelets (Bld) [#/Vol] 306 10*3/uL Normal 150-450 [facility] Comment on above: Order Comment: 302-1 Performed By: #### L 500.4050, L100.0500 #### [facility] [address] [place], [address] RBC (Bld) [#/Vol] 4.32 10*6/uL Normal 4.2-5.4 [facility] Comment on above: Order Comment: 302-1 Performed By: #### L 500.4050, L100.0500 #### [facility] [address] [place], [address] RDW SD 50.2 fl High 35.1-43.9 [facility] Comment on above: Order Comment: 302-1 Performed By: #### L 500.4050, L100.0500 #### [facility] [address] [place], [address] WBC (Bld) [#/Vol] 7.3 10*3/uL Normal 4.4-11.0 [facility] Comment on above: Order Comment: 302-1 Performed By: #### L 500.4050, L100.0500 #### [facility] [address] [place], [address] Carbon dioxide measurementOr dered By: Venkat Malin on 06-24-2024 CO2 [Moles/Vol] 25.0 mmol/L 21.0-32.0 [facility] Chloride measurementOrdered By: Venkat Malin on 06-24-2024 Chloride [Moles/Vol] 113 mmol/L High 98-107 [facility] Comprehensive Metabolic Prof ilon 06-24-2024 Albumin [Mass/Vol] 2.7 g/dL Low 3.2-5.0 [facility] Comment on above: Order Comment: 302-1 Performed By: #### L 500.4050, L100.0500 #### [facility] [address] [place], [address] Albumin/Globulin [Mass ratio] 0.6 {ratio} Low 0.9-2.4 [facility] Comment on above: Order Comment: 302-1 Performed By: #### L 500.4050, L100.0500 #### [facility] [address] [place], [address] ALK P 115 U/L Normal 45-117 [facility] Comment on above: Order Comment: 302-1 Performed By: #### L 500.4050, L100.0500 #### [facility] [address] [place], [address] ALT [Catalytic activity/Vol] 13 U/L Normal 13-56 [facility] Comment on above: Order Comment: 302-1 Performed By: #### L 500.4050, L100.0500 #### [facility] [address] [place], [address] AST [Catalytic activity/Vol] 14 U/L Low 15-37 [facility] Comment on above: Order Comment: 302-1 Performed By: #### L 500.4050, L100.0500 #### [facility] [address] [place], [address] BUN/CRE 27.9 RATIO High 10-20 [facility] Comment on above: Order Comment: 302-1 Performed By: #### L 500.4050, L100.0500 #### [facility] [address] [place], [address] CA,Total 8.8 mg/dL Normal 8.5-10.1 [facility] Comment on above: Order Comment: 302-1 Performed By: #### L 500.4050, L100.0500 #### [facility] [address] [place], [address] Chloride [Moles/Vol] 113 mmol/L High 98-107 [facility] Comment on above: Order Comment: 302-1 Performed By: #### L 500.4050, L100.0500 #### [facility] [address] [place], [address] CO2 [Moles/Vol] 25.0 mmol/L Normal 21.0-32.0 [facility] Comment on above: Order Comment: 302-1 Performed By: #### L 500.4050, L100.0500 #### [facility] [address] [place], [address] Creatinine [Mass/Vol] 0.72 mg/dL Normal 0.55-1.02 [facility] Comment on above: Order Comment: 302-1 Result Comment: The validity of the calculated GFR GFRAA in patients over 70 years has not been determined. Clinical correlation is essential. Performed By: #### L 500.4050, L100.0500 #### [facility] [address] [place], [address] EST GFR - AA 111 mL/min Normal >60 [facility] Comment on above: Order Comment: 302-1 Result Comment: Afri can Taiwanese GFR Calc Performed By: #### L 500.4050, L100.0500 #### [facility] [address] [place], [address] GAP 4 Low 5-15 [facility] Comment on above: Order Comment: 302-1 Performed By: #### L 500.4050, L100.0500 #### [facility] [address] [place], [address] GFR/1.73 sq M.predicted among non-blacks MDRD (S/P/Bld) [Vol rate/Area] 92 mL/min/{1.73_m2} Normal >60 [facility] Comment on above: Order Comment: 302-1 Result Comment: Non- GFR Calc Performed By: #### L 500.4050, L100.0500 #### [facility] [address] [place], [address] Globulin (S) [Mass/Vol] 4.8 g/dL High 2.2-4.2 [facility] Comment on above: Order Comment: 302-1 Performed By: #### L 500.4050, L100.0500 #### [facility] [address] [place], [address] Glucose [Mass/Vol] 87 mg/dL Normal 74-106 [facility] Comment on above: Order Comment: 302-1 Performed By: #### L 500.4050, L100.0500 #### [facility] [address] [place], [address] Potassium [Moles/Vol] 3.5 mmol/L Normal 3.5-5.1 [facility] Comment on above: Order Comment: 302-1 Performed By: #### L 500.4050, L100.0500 #### [facility] [address] [place], [address] Sodium [Moles/Vol] 142 mmol/L Normal 136-145 [facility] Comment on above: Order Comment: 302-1 Performed By: #### L 500.4050, L100.0500 #### [facility] [address] [place], [address] T BILI < 0.10 Low 0.20-1.00 [facility] Comment on above: Order Comment: 302-1 Result Comment: For patients on eltrombopag therapy, use of Dimension [place] TBIL is not recommended. Performed By: #### L 500.4050, L100.0500 #### [facility] [address] [place], [address] T PROT 7.5 g/dL Normal 6.4-8.2 [facility] Comment on above: Order Comment: 302-1 Performed By: #### L 500.4050, L100.0500 #### [facility] [address] [place], [address] Urea nitrogen [Mass/Vol] 20 mg/dL High 7-18 [facility] Comment on above: Order Comment: 302-1 Performed By: #### L 500.4050, L100.0500 #### [facility] [address] [place], [address] Erythrocyte distribution wid th ratioOrdered By: Venkat Malin on 06-24-2024 Erythrocyte distribution width (RBC) [Ratio] 15.0 % High 11.6-14.6 [facility] Erythrocyte distribution wid th standard deviationOrdered By: Venkat Malin on 06-24-2024 Erythrocyte distribution width (RBC) [Entitic vol] 50.2 fL High 35.1-43.9 [facility] Estimated glomerular filtrat ion rate (GFR) AmericanOrdered By: Venkat Malin on 06-24-2024 Estimated GFR (MDRD) Amer 111 mL/min >60 [facility] Comment on above: GFR Calc Glomerular filtration rate ( GFR) estimationOrdered By: Venkat Malin on 06-24-2024 Estimated GFR (MDRD) Non-Af Amer 92 mL/min >60 [facility] Comment on above: Non- GFR Calc Glucose measurementOrdered B y: Venkat Malin on 06-24-2024 Glucose [Mass/Vol] 87 mg/dL 74-106 [facility] Hematocrit Auto (Bld) [Volum e fraction]Ordered By: Venkat Malin on 06-24-2024 Hematocrit (Bld) [Volume fraction] 38.9 % 37-47 [facility] Hemoglobin measurementOrdere d By: Venkat Malin on 06-24-2024 Hemoglobin (Bld) [Mass/Vol] 11.7 g/dL Low 12.0-15.0 [facility] - Chemistry and C hemistry - challengeOrdered By: Venkat Malin on 06-24-2024 AST [Catalytic activity/Vol] 14 U/L Low 15-37 [facility] MCV (mean corpuscular volume ) determinationOrdered By: Venkat Malin on 06-24-2024 MCV (RBC) [Entitic vol] 90.0 fL 81-99 [facility] Mean corpuscular hemoglobin (MCH) determinationOrdered By: Venkat Malin on 06-24-2024 MCH (RBC) [Entitic mass] 27.1 pg 27.0-32.0 [facility] Mean corpuscular hemoglobin concentration (MCHC) determinationOrdered By: Venkat Malin on 06-24-2024 MCHC (RBC) [Mass/Vol] 30.1 g/dL Low 32-36 [facility] Mean platelet volume determi nationOrdered By: Venkat Malin on 06-24-2024 Platelet mean volume (Bld) [Entitic vol] 11.4 fL 6.2-12.0 [facility] Platelet countOrdered By: Dov Gonzalez on 06-24-2024 Platelets (Bld) [#/Vol] 306 10*3/uL 150-450 [facility] Potassium measurementOrdered By: Venkat Malin on 06-24-2024 Potassium [Moles/Vol] 3.5 mmol/L 3.5-5.1 [facility] RBC Auto (Bld) [#/Vol]Ordere d By: Venkat Malin on 06-24-2024 RBC (Bld) [#/Vol] 4.32 10*6/uL 4.2-5.4 [facility] Serum anion gap measurementO rdered By: Venkat Malin on 06-24-2024 Anion gap [Moles/Vol] 4 mmol/L Low 5-15 [facility] Serum globulin measurementOr dered By: Venkat Malin on 06-24-2024 Globulin (S) [Mass/Vol] 4.8 g/dL High 2.2-4.2 [facility] Serum or plasma alanine gregorio otransferase (ALT) measurementOrdered By: Venkat Malin on 06-24-2024 ALT [Catalytic activity/Vol] 13 U/L 13-56 [facility] Serum or plasma albumin kavin urement (mass/volume)Ordered By: Venkat Malin on 06-24-2024 Albumin [Mass/Vol] 2.7 g/dL Low 3.2-5.0 [facility] Serum or plasma alkaline raymond sphatase measurementOrdered By: Venkat Malin on 06-24-2024 ALP [Catalytic activity/Vol] 115 U/L 45-117 [facility] Serum or plasma calcium kavin urement (mass/volume)Ordered By: Venkat Malin on 06-24-2024 Calcium [Mass/Vol] 8.8 mg/dL 8.5-10.1 [facility] Serum or plasma creatinine m easurement (mass/volume)Ordered By: Venkat Malin on 06-24-2024 Creatinine [Mass/Vol] 0.72 mg/dL 0.55-1.02 [facility] Comment on above: The validity of the calculated GFR & GFRAA in patients over 70 years has not been determined. Clinical correlation is essential. Serum or plasma urea nitroge n measurement (mass/volume)Ordered By: Venkat Malin on 06-24-2024 Urea nitrogen [Mass/Vol] 20 mg/dL High 7-18 [facility] Sodium levelOrdered By: Sai Malin on 06-24-2024 Sodium [Moles/Vol] 142 mmol/L 136-145 [facility] Total proteinOrdered By: Sarah Malin on 06-24-2024 Protein [Mass/Vol] 7.5 g/dL 6.4-8.2 [facility] White blood cell (WBC) count Ordered By: Venkat Malin on 06-24-2024 WBC (Bld) [#/Vol] 7.3 10*3/uL 4.4-11.0 [facility] Miscellaneous Lab Procedureo n 06-10-2024 MISC LAB TEST Normal [facility] Comment on above: Order Comment: 302.1 [id number] oxcarbazepine/serum/RT Result Comment: TEST RESULTS LIMITS Oxcarbazepine (Trileptal),S Oxcarbazepine, 10 ug/mL 10-35 Detection Limit = 1 [facility] ORIGINAL REPORT ON FILE IN LAB CONTAINS ADDITIONAL TEST SITE INFORMATION. Performed By: #### M 100.2200, L400.0001 #### [facility] [address] [place], [address] CBC-Complete Blood Cnt No Di ffon 06-03-2024 Erythrocyte distribution width (RBC) [Ratio] 15.6 % High 11.6-14.6 [facility] Comment on above: Order Comment: 302.1 Performed By: #### L 500.4050, L100.0500 #### [facility] [address] [place], [address] Hematocrit (Bld) [Volume fraction] 43.9 % Normal 37-47 [facility] Comment on above: Order Comment: 302.1 Performed By: #### L 500.4050, L100.0500 #### [facility] [address] [place], [address] Hemoglobin (Bld) [Mass/Vol] 13.4 g/dL Normal 12.0-15.0 [facility] Comment on above: Order Comment: 302.1 Performed By: #### L 500.4050, L100.0500 #### [facility] [address] [place], [address] MCH (RBC) [Entitic mass] 27.2 pg Normal 27.0-32.0 [facility] Comment on above: Order Comment: 302.1 Performed By: #### L 500.4050, L100.0500 #### [facility] [address] [place], [address] MCHC (RBC) [Mass/Vol] 30.5 g/dL Low 32-36 [facility] Comment on above: Order Comment: 302.1 Performed By: #### L 500.4050, L100.0500 #### [facility] [address] [place], [address] MCV (RBC) [Entitic vol] 89.2 fL Normal 81-99 [facility] Comment on above: Order Comment: 302.1 Performed By: #### L 500.4050, L100.0500 #### [facility] [address] [place], [address] Platelet mean volume (Bld) [Entitic vol] 11.3 fL Normal 6.2-12.0 [facility] Comment on above: Order Comment: 302.1 Performed By: #### L 500.4050, L100.0500 #### [facility] [address] [place], [address] Platelets (Bld) [#/Vol] 324 10*3/uL Normal 150-450 [facility] Comment on above: Order Comment: 302.1 Performed By: #### L 500.4050, L100.0500 #### [facility] [address] [place], [address] RBC (Bld) [#/Vol] 4.92 10*6/uL Normal 4.2-5.4 [facility] Comment on above: Order Comment: 302.1 Performed By: #### L 500.4050, L100.0500 #### [facility] [address] [place], [address] RDW SD 50.7 fl High 35.1-43.9 [facility] Comment on above: Order Comment: 302.1 Performed By: #### L 500.4050, L100.0500 #### [facility] [address] [place], [address] WBC (Bld) [#/Vol] 5.2 10*3/uL Normal 4.4-11.0 [facility] Comment on above: Order Comment: 302.1 Performed By: #### L 500.4050, L100.0500 #### [facility] [address] [place], [address] Comprehensive Metabolic Prof ilon 06-03-2024 Albumin [Mass/Vol] 2.8 g/dL Low 3.2-5.0 [facility] Comment on above: Order Comment: 302.1 Performed By: #### L 500.4050, L100.0500 #### [facility] [address] [place], [address] Albumin/Globulin [Mass ratio] 0.5 {ratio} Low 0.9-2.4 [facility] Comment on above: Order Comment: 302.1 Performed By: #### L 500.4050, L100.0500 #### [facility] [address] [place], [address] ALK P 113 U/L Normal 45-117 [facility] Comment on above: Order Comment: 302.1 Performed By: #### L 500.4050, L100.0500 #### [facility] [address] [place], [address] ALT [Catalytic activity/Vol] 18 U/L Normal 13-56 [facility] Comment on above: Order Comment: 302.1 Performed By: #### L 500.4050, L100.0500 #### [facility] [address] [place], [address] AST [Catalytic activity/Vol] 20 U/L Normal 15-37 [facility] Comment on above: Order Comment: 302.1 Result Comment: Slig ht Hemolysis, Result may be falsely increased. Performed By: #### L 500.4050, L100.0500 #### [facility] [address] [place], [address] Bilirubin [Mass/Vol] 0.40 mg/dL Normal 0.20-1.00 [facility] Comment on above: Order Comment: 302.1 Result Comment: For patients on eltrombopag therapy, use of Dimension [place] TBIL is not recommended. Performed By: #### L 500.4050, L100.0500 #### [facility] [address] [place], [address] BUN/CRE 19.0 RATIO Normal 10-20 [facility] Comment on above: Order Comment: 302.1 Performed By: #### L 500.4050, L100.0500 #### [facility] [address] [place], [address] CA,Total 9.0 mg/dL Normal 8.5-10.1 [facility] Comment on above: Order Comment: 302.1 Performed By: #### L 500.4050, L100.0500 #### [facility] [address] [place], [address] Chloride [Moles/Vol] 111 mmol/L High 98-107 [facility] Comment on above: Order Comment: 302.1 Performed By: #### L 500.4050, L100.0500 #### [facility] [address] [place], [address] CO2 [Moles/Vol] 22.0 mmol/L Normal 21.0-32.0 [facility] Comment on above: Order Comment: 302.1 Performed By: #### L 500.4050, L100.0500 #### [facility] [address] [place], [address] Creatinine [Mass/Vol] 0.79 mg/dL Normal 0.55-1.02 [facility] Comment on above: Order Comment: 302.1 Result Comment: The validity of the calculated GFR GFRAA in patients over 70 years has not been determined. Clinical correlation is essential. Performed By: #### L 500.4050, L100.0500 #### [facility] [address] [place], [address] EST GFR - AA 99 mL/min Normal >60 [facility] Comment on above: Order Comment: 302.1 Result Comment: Afri can Taiwanese GFR Calc Performed By: #### L 500.4050, L100.0500 #### [facility] [address] [place], [address] GAP 6 Normal 5-15 [facility] Comment on above: Order Comment: 302.1 Performed By: #### L 500.4050, L100.0500 #### [facility] [address] [place], [address] GFR/1.73 sq M.predicted among non-blacks MDRD (S/P/Bld) [Vol rate/Area] 82 mL/min/{1.73_m2} Normal >60 [facility] Comment on above: Order Comment: 302.1 Result Comment: Non- GFR Calc Performed By: #### L 500.4050, L100.0500 #### [facility] [address] [place], [address] Globulin (S) [Mass/Vol] 5.3 g/dL High 2.2-4.2 [facility] Comment on above: Order Comment: 302.1 Performed By: #### L 500.4050, L100.0500 #### [facility] [address] [place], [address] Glucose [Mass/Vol] 78 mg/dL Normal 74-106 [facility] Comment on above: Order Comment: 302.1 Performed By: #### L 500.4050, L100.0500 #### [facility] [address] [place], [address] Potassium [Moles/Vol] 4.0 mmol/L Normal 3.5-5.1 [facility] Comment on above: Order Comment: 302.1 Result Comment: Slig ht Hemolysis, Result may be falsely increased. Performed By: #### L 500.4050, L100.0500 #### [facility] [address] [place], [address] Sodium [Moles/Vol] 139 mmol/L Normal 136-145 [facility] Comment on above: Order Comment: 302.1 Performed By: #### L 500.4050, L100.0500 #### [facility] [address] [place], [address] T PROT 8.1 g/dL Normal 6.4-8.2 [facility] Comment on above: Order Comment: 302.1 Performed By: #### L 500.4050, L100.0500 #### [facility] [address] [place], [address] Urea nitrogen [Mass/Vol] 15 mg/dL Normal 7-18 [facility] Comment on above: Order Comment: 302.1 Performed By: #### L 500.4050, L100.0500 #### [facility] [address] [place], [address] Urine Cultureon 05-29-2024 URC #2 Sensitivity perfo rmed at [facility] Escherichia coli [place] Count >100,000 Pseudomonas stutzeri Pseudomonas stutzeri PMIR [place] Count 1000-10,000 Proteus mirabilis Ampicillin Islt DARIO [...] TMP SMX Islt DARIO >=320 R Normal [facility] Comment on above: Performed By: #### M 100.2200, L400.0001 #### [facility] [address] [place], [address] Basic Metabolic Profile (BMP )on 05-24-2024 BUN/CRE 19.4 RATIO Normal 05-19 [facility] Comment on above: Order Comment: 302-1 N Performed By: #### M 100.2200, L400.0001 #### [facility] [address] [place], [address] CA,Total 8.6 mg/dL Normal 8.5-10.1 [facility] Comment on above: Order Comment: 302-1 N Performed By: #### M 100.2200, L400.0001 #### [facility] [address] [place], [address] Chloride [Moles/Vol] 112 mmol/L High 98-107 [facility] Comment on above: Order Comment: 302-1 N Performed By: #### M 100.2200, L400.0001 #### [facility] [address] [place], [address] CO2 [Moles/Vol] 22.0 mmol/L Normal 21.0-32.0 [facility] Comment on above: Order Comment: 302-1 N Performed By: #### M 100.2200, L400.0001 #### [facility] [address] [place], [address] Creatinine [Mass/Vol] 0.88 mg/dL Normal 0.55-1.02 [facility] Comment on above: Order Comment: 302-1 N Result Comment: The validity of the calculated GFR GFRAA in patients over 70 years has not been determined. Clinical correlation is essential. Performed By: #### M 100.2200, L400.0001 #### [facility] [address] [place], [address] EST GFR - AA 88 mL/min Normal >60 [facility] Comment on above: Order Comment: 302-1 N Result Comment: Afri can Taiwanese GFR Calc Performed By: #### M 100.2200, L400.0001 #### [facility] [address] [place], [address] GAP 5 Normal 5-15 [facility] Comment on above: Order Comment: 302-1 N Performed By: #### M 100.2200, L400.0001 #### [facility] [address] [place], [address] GFR/1.73 sq M.predicted among non-blacks MDRD (S/P/Bld) [Vol rate/Area] 73 mL/min/{1.73_m2} Normal >60 [facility] Comment on above: Order Comment: 302-1 N Result Comment: Non- GFR Calc Performed By: #### M 100.2200, L400.0001 #### [facility] [address] [place], [address] Glucose [Mass/Vol] 83 mg/dL Normal 74-106 [facility] Comment on above: Order Comment: 302-1 N Performed By: #### M 100.2200, L400.0001 #### [facility] [address] [place], [address] Potassium [Moles/Vol] 3.9 mmol/L Normal 3.5-5.1 [facility] Comment on above: Order Comment: 302-1 N Performed By: #### M 100.2200, L400.0001 #### [facility] [address] [place], [address] Sodium [Moles/Vol] 139 mmol/L Normal 136-145 [facility] Comment on above: Order Comment: 302-1 N Performed By: #### M 100.2200, L400.0001 #### [facility] [address] [place], [address] Urea nitrogen [Mass/Vol] 17 mg/dL Normal 7-18 [facility] Comment on above: Order Comment: 302-1 N Performed By: #### M 100.2200, L400.0001 #### [facility] [address] [place], [address] CBC-Complete Blood Cnt No Di ffon 05-24-2024 Erythrocyte distribution width (RBC) [Ratio] 15.5 % High 11.6-14.6 [facility] Comment on above: Order Comment: 302-1 Performed By: #### M 100.2200, L400.0001 #### [facility] [address] [place], [address] Hematocrit (Bld) [Volume fraction] 34.3 % Low 37-47 [facility] Comment on above: Order Comment: 302-1 Performed By: #### M 100.2200, L400.0001 #### [facility] [address] [place], [address] Hemoglobin (Bld) [Mass/Vol] 10.4 g/dL Low 12.0-15.0 [facility] Comment on above: Order Comment: 302-1 Performed By: #### M 100.2200, L400.0001 #### [facility] [address] [place], [address] MCH (RBC) [Entitic mass] 27.2 pg Normal 27.0-32.0 [facility] Comment on above: Order Comment: 302-1 Performed By: #### M 100.2200, L400.0001 #### [facility] [address] [place], [address] MCHC (RBC) [Mass/Vol] 30.3 g/dL Low 32-36 [facility] Comment on above: Order Comment: 302-1 Performed By: #### M 100.2200, L400.0001 #### [facility] [address] [place], [address] MCV (RBC) [Entitic vol] 89.6 fL Normal 81-99 [facility] Comment on above: Order Comment: 302-1 Performed By: #### M 100.2200, L400.0001 #### [facility] [address] [place], [address] Platelet mean volume (Bld) [Entitic vol] 11.3 fL Normal 6.2-12.0 [facility] Comment on above: Order Comment: 302-1 Performed By: #### M 100.2200, L400.0001 #### [facility] [address] [place], [address] Platelets (Bld) [#/Vol] 369 10*3/uL Normal 150-450 [facility] Comment on above: Order Comment: 302-1 Performed By: #### M 100.2200, L400.0001 #### [facility] [address] [place], [address] RBC (Bld) [#/Vol] 3.83 10*6/uL Low 4.2-5.4 [facility] Comment on above: Order Comment: 302-1 Performed By: #### M 100.2200, L400.0001 #### [facility] [address] [place], [address] RDW SD 50.7 fl High 35.1-43.9 [facility] Comment on above: Order Comment: 302-1 Performed By: #### M 100.2200, L400.0001 #### [facility] [address] [place], [address] WBC (Bld) [#/Vol] 6.1 10*3/uL Normal 4.4-11.0 [facility] Comment on above: Order Comment: 302-1 Performed By: #### M 100.2200, L400.0001 #### [facility] [address] [place], [address] Folates, (Folic Acid)on 05-01 FOLATES 2.20 ng/mL Low 3.1-55.4 [facility] Comment on above: Order Comment: 302-1 N Result Comment: Slig ht Hemolysis, Result may be falsely increased. Performed By: #### M 100.2200, L400.0001 #### [facility] [address] [place], [address] Iron+Iron Binding Capacityon 05-24-2024 Iron [Mass/Vol] 48 ug/dL Low 50-170 [facility] Comment on above: Order Comment: 302-1 N Performed By: #### M 100.2200, L400.0001 #### [facility] [address] [place], [address] IRON SATURATION 16.2 Normal 15.0-55.0 [facility] Comment on above: Order Comment: 302-1 N Performed By: #### M 100.2200, L400.0001 #### [facility] [address] [place], [address] TIBC 297 ug/dL Normal 250-450 [facility] Comment on above: Order Comment: 302-1 N Performed By: #### M 100.2200, L400.0001 #### [facility] Laboratory [address] [place], [address] Vitamin B12on 05-24-2024 Cobalamin (Vitamin B12) [Mass/Vol] 434 pg/mL Normal 211-911 [facility] Comment on above: Order Comment: 302-1 Performed By: #### M 100.2200, L400.0001 #### [facility] [address] [place], [address] Urinalysis, Completeon 05-17 BACTERIA 2+ /hpf Normal None Seen [facility] Comment on above: Order Comment: KALYANI TER SPECIMEN Performed By: #### M 100.2200, L400.0001 #### [facility] [address] [place], [address] CA OX CRYSTAL 2+ /hpf Normal [facility] Comment on above: Order Comment: KALYANI TER SPECIMEN Performed By: #### M 100.2200, L400.0001 #### [facility] [address] [place], [address] WBC 0-5 SEEN Normal 0-5 [facility] Comment on above: Order Comment: KALYANI TER SPECIMEN Performed By: #### M 100.2200, L400.0001 #### [facility] [address] [place], [address] EPI,SQUAMOUS 0 SEEN Normal 5-10 [facility] Comment on above: Order Comment: KALYANI TER SPECIMEN Performed By: #### M 100.2200, L400.0001 #### [facility] [address] [place], [address] Mucus Ql (Urine sed) 0 SEEN Normal [facility] Comment on above: Order Comment: KALYANI TER SPECIMEN Performed By: #### M 100.2200, L400.0001 #### [facility] [address] [place], [address] RBC 0 SEEN Normal 0-5 [facility] Comment on above: Order Comment: KALYANI TER SPECIMEN Performed By: #### M 100.2200, L400.0001 #### [facility] [address] [place], [address] Basic Metabolic Profile (BMP )on 04-26-2024 BUN/CRE 24.6 RATIO High 10-20 [facility] Comment on above: Order Comment: 302-1 Performed By: #### M 100.2200, L400.0001 #### [facility] [address] [place], [address] CA,Total 8.6 mg/dL Normal 8.5-10.1 [facility] Comment on above: Order Comment: 302-1 Performed By: #### M 100.2200, L400.0001 #### [facility] [address] [place], [address] Chloride [Moles/Vol] 108 mmol/L High 98-107 [facility] Comment on above: Order Comment: 302-1 Performed By: #### M 100.2200, L400.0001 #### [facility] [address] [place], [address] CO2 [Moles/Vol] 27.0 mmol/L Normal 21.0-32.0 [facility] Comment on above: Order Comment: 302-1 Performed By: #### M 100.2200, L400.0001 #### [facility] [address] [place], [address] Creatinine [Mass/Vol] 0.77 mg/dL Normal 0.55-1.02 [facility] Comment on above: Order Comment: 302-1 Result Comment: The validity of the calculated GFR GFRAA in patients over 70 years has not been determined. Clinical correlation is essential. Performed By: #### M 100.2200, L400.0001 #### [facility] [address] [place], [address] EST GFR - AA 103 mL/min Normal >60 [facility] Comment on above: Order Comment: 302- Result Comment: Afri can Taiwanese GFR Calc Performed By: #### M 100.2200, L400.0001 #### [facility] [address] [place], [address] GAP 3 Low 5-15 [facility] Comment on above: Order Comment: 302- Performed By: #### M 100.2200, L400.0001 #### [facility] [address] [place], [address] GFR/1.73 sq M.predicted among non-blacks MDRD (S/P/Bld) [Vol rate/Area] 85 mL/min/{1.73_m2} Normal >60 [facility] Comment on above: Order Comment: 302- Result Comment: Non- GFR Calc Performed By: #### M 100.2200, L400.0001 #### [facility] [address] [place], [address] Glucose [Mass/Vol] 105 mg/dL Normal 74-106 [facility] Comment on above: Order Comment: 302- Result Comment: Fast ing Glucose result from 100 to 125 mg/dL suggests IMPAIRED HOMEOSTASIS per A.D.A. criteria. Performed By: #### M 100.2200, L400.0001 #### [facility] [address] [place], [address] Potassium [Moles/Vol] 3.5 mmol/L Normal 3.5-5.1 [facility] Comment on above: Order Comment: 302- Performed By: #### M 100.2200, L400.0001 #### [facility] [address] [place], [address] Sodium [Moles/Vol] 138 mmol/L Normal 136-145 [facility] Comment on above: Order Comment: 302-1 Performed By: #### M 100.2200, L400.0001 #### [facility] [address] [place], [address] Urea nitrogen [Mass/Vol] 19 mg/dL High 7-18 [facility] Comment on above: Order Comment: 302-1 Performed By: #### M 100.2200, L400.0001 #### [facility] [address] [place], [address] CBC-Complete Blood Cnt No Di ffon 04-26-2024 Erythrocyte distribution width (RBC) [Ratio] 15.5 % High 11.6-14.6 [facility] Comment on above: Order Comment: 302-1 Performed By: #### M 100.2200, L400.0001 #### [facility] [address] [place], [address] Hematocrit (Bld) [Volume fraction] 34.6 % Low 37-47 [facility] Comment on above: Order Comment: 302-1 Performed By: #### M 100.2200, L400.0001 #### [facility] [address] [place], [address] Hemoglobin (Bld) [Mass/Vol] 10.4 g/dL Low 12.0-15.0 [facility] Comment on above: Order Comment: 302-1 Performed By: #### M 100.2200, L400.0001 #### [facility] [address] [place], [address] MCH (RBC) [Entitic mass] 26.9 pg Low 27.0-32.0 [facility] Comment on above: Order Comment: 302-1 Performed By: #### M 100.2200, L400.0001 #### [facility] [address] [place], [address] MCHC (RBC) [Mass/Vol] 30.1 g/dL Low 32-36 [facility] Comment on above: Order Comment: 302-1 Performed By: #### M 100.2200, L400.0001 #### [facility] [address] [place], [address] MCV (RBC) [Entitic vol] 89.4 fL Normal 81-99 [facility] Comment on above: Order Comment: 302-1 Performed By: #### M 100.2200, L400.0001 #### [facility] [address] [place], [address] Platelet mean volume (Bld) [Entitic vol] 11.6 fL Normal 6.2-12.0 [facility] Comment on above: Order Comment: 302-1 Performed By: #### M 100.2200, L400.0001 #### [facility] Laboratory [address] [place], [address] Platelets (Bld) [#/Vol] 373 10*3/uL Normal 150-450 [facility] Comment on above: Order Comment: 302-1 Performed By: #### M 100.2200, L400.0001 #### [facility] [address] [place], [address] RBC (Bld) [#/Vol] 3.87 10*6/uL Low 4.2-5.4 [facility] Comment on above: Order Comment: 302-1 Performed By: #### M 100.2200, L400.0001 #### [facility] [address] [place], [address] RDW SD 51.0 fl High 35.1-43.9 [facility] Comment on above: Order Comment: 302-1 Performed By: #### M 100.2200, L400.0001 #### [facility] [address] [place], [address] WBC (Bld) [#/Vol] 7.9 10*3/uL Normal 4.4-11.0 [facility] Comment on above: Order Comment: 302-1 Performed By: #### M 100.2200, L400.0001 #### [facility] [address] [place], [address] Basic Metabolic Profile (BMP )on 03-27-2024 BUN/CRE 27.7 RATIO High 10-20 [facility] Comment on above: Order Comment: 302.1 Performed By: #### L 500.4050, L100.0500 #### [facility] [address] [place], [address] CA,Total 8.9 mg/dL Normal 8.5-10.1 [facility] Comment on above: Order Comment: 302.1 Performed By: #### L 500.4050, L100.0500 #### [facility] [address] [place], [address] Chloride [Moles/Vol] 110 mmol/L High 98-107 [facility] Comment on above: Order Comment: 302.1 Performed By: #### L 500.4050, L100.0500 #### [facility] [address] [place], [address] CO2 [Moles/Vol] 25.0 mmol/L Normal 21.0-32.0 [facility] Comment on above: Order Comment: 302.1 Performed By: #### L 500.4050, L100.0500 #### [facility] [address] [place], [address] Creatinine [Mass/Vol] 0.79 mg/dL Normal 0.55-1.02 [facility] Comment on above: Order Comment: 302.1 Result Comment: The validity of the calculated GFR GFRAA in patients over 70 years has not been determined. Clinical correlation is essential. Performed By: #### L 500.4050, L100.0500 #### [facility] [address] [place], [address] EST GFR - AA 99 mL/min Normal >60 [facility] Comment on above: Order Comment: 302.1 Result Comment: Afri can Taiwanese GFR Calc Performed By: #### L 500.4050, L100.0500 #### [facility] [address] [place], [address] GAP 4 Low 5-15 [facility] Comment on above: Order Comment: 302.1 Performed By: #### L 500.4050, L100.0500 #### [facility] [address] [place], [address] GFR/1.73 sq M.predicted among non-blacks MDRD (S/P/Bld) [Vol rate/Area] 82 mL/min/{1.73_m2} Normal >60 [facility] Comment on above: Order Comment: 302.1 Result Comment: Non- GFR Calc Performed By: #### L 500.4050, L100.0500 #### [facility] [address] [place], [address] Glucose [Mass/Vol] 91 mg/dL Normal 74-106 [facility] Comment on above: Order Comment: 302.1 Performed By: #### L 500.4050, L100.0500 #### [facility] [address] [place], [address] Potassium [Moles/Vol] 3.5 mmol/L Normal 3.5-5.1 [facility] Comment on above: Order Comment: 302.1 Performed By: #### L 500.4050, L100.0500 #### [facility] [address] [place], [address] Sodium [Moles/Vol] 139 mmol/L Normal 136-145 [facility] Comment on above: Order Comment: 302.1 Performed By: #### L 500.4050, L100.0500 #### [place] [facility] [address] [place], [address] Urea nitrogen [Mass/Vol] 22 mg/dL High 7-18 [facility] Comment on above: Order Comment: 302.1 Performed By: #### L 500.4050, L100.0500 #### [facility] [address] [place], [address] CBC-Complete Blood Cnt No Di ffon 03-27-2024 Erythrocyte distribution width (RBC) [Ratio] 15.5 % High 11.6-14.6 [facility] Comment on above: Order Comment: 302.1 Performed By: #### L 500.4050, L100.0500 #### [facility] [address] [place], [address] Hematocrit (Bld) [Volume fraction] 36.7 % Low 37-47 [facility] Comment on above: Order Comment: 302.1 Performed By: #### L 500.4050, L100.0500 #### [facility] [address] [place], [address] Hemoglobin (Bld) [Mass/Vol] 11.2 g/dL Low 12.0-15.0 [facility] Comment on above: Order Comment: 302.1 Performed By: #### L 500.4050, L100.0500 #### [facility] [address] [place], [address] MCH (RBC) [Entitic mass] 27.0 pg Normal 27.0-32.0 [facility] Comment on above: Order Comment: 302.1 Performed By: #### L 500.4050, L100.0500 #### [facility] [address] [place], [address] MCHC (RBC) [Mass/Vol] 30.5 g/dL Low 32-36 [facility] Comment on above: Order Comment: 302.1 Performed By: #### L 500.4050, L100.0500 #### [facility] [address] [place], [address] MCV (RBC) [Entitic vol] 88.4 fL Normal 81-99 [facility] Comment on above: Order Comment: 302.1 Performed By: #### L 500.4050, L100.0500 #### [facility] [address] [place], [address] Platelet mean volume (Bld) [Entitic vol] 11.2 fL Normal 6.2-12.0 [facility] Comment on above: Order Comment: 302.1 Performed By: #### L 500.4050, L100.0500 #### [facility] [address] [place], [address] Platelets (Bld) [#/Vol] 370 10*3/uL Normal 150-450 [facility] Comment on above: Order Comment: 302.1 Performed By: #### L 500.4050, L100.0500 #### [facility] [address] [place], [address] RBC (Bld) [#/Vol] 4.15 10*6/uL Low 4.2-5.4 [facility] Comment on above: Order Comment: 302.1 Performed By: #### L 500.4050, L100.0500 #### [facility] [address] [place], [address] RDW SD 50.2 fl High 35.1-43.9 [facility] Comment on above: Order Comment: 302.1 Performed By: #### L 500.4050, L100.0500 #### [facility] [address] [place], [address] WBC (Bld) [#/Vol] 8.8 10*3/uL Normal 4.4-11.0 [facility] Comment on above: Order Comment: 302.1 Performed By: #### L 500.4050, L100.0500 #### [facility] [address] [place], [address] Basic Metabolic Profile (BMP )on 03-26-2024 BUN Normal 7-18 [facility] Comment on above: Order Comment: 302.1 Result Comment: UTO X1 TOLD NURSE Performed By: #### L 500.4050, L100.0500 #### [facility] [address] [place], [address] BUN/CRE Normal 10-20 [facility] Comment on above: Order Comment: 302.1 Result Comment: UTO X1 TOLD NURSE Performed By: #### L 500.4050, L100.0500 #### [facility] [address] [place], [address] CA,Total Normal 8.5-10.1 [facility] Comment on above: Order Comment: 302.1 Result Comment: UTO X1 TOLD NURSE Performed By: #### L 500.4050, L100.0500 #### [facility] [address] [place], [address] CL Normal 98-107 [facility] Comment on above: Order Comment: 302.1 Result Comment: UTO X1 TOLD NURSE Performed By: #### L 500.4050, L100.0500 #### [facility] [address] [place], [address] CO2 Normal 21.0-32.0 [facility] Comment on above: Order Comment: 302.1 Result Comment: UTO X1 TOLD NURSE Performed By: #### L 500.4050, L100.0500 #### [facility] [address] [place], [address] CREAT,SERUM Normal 0.55-1.02 [facility] Comment on above: Order Comment: 302.1 Result Comment: UTO X1 TOLD NURSE Performed By: #### L 500.4050, L100.0500 #### [facility] [address] [place], [address] EST GFR Normal >60 [facility] Comment on above: Order Comment: 302.1 Result Comment: UTO X1 TOLD NURSE Performed By: #### L 500.4050, L100.0500 #### [facility] [address] [place], [address] EST GFR - AA Normal >60 [facility] Comment on above: Order Comment: 302.1 Result Comment: UTO X1 TOLD NURSE Performed By: #### L 500.4050, L100.0500 #### [facility] [address] [place], [address] GAP Normal 5-15 [facility] Comment on above: Order Comment: 302.1 Result Comment: UTO X1 TOLD NURSE Performed By: #### L 500.4050, L100.0500 #### [facility] [address] [place], [address] GLU Normal 74-106 [facility] Comment on above: Order Comment: 302.1 Result Comment: UTO X1 TOLD NURSE Performed By: #### L 500.4050, L100.0500 #### [facility] [address] [place], [address] Potassium Normal 3.5-5.1 [facility] Comment on above: Order Comment: 302.1 Result Comment: UTO X1 TOLD NURSE Performed By: #### L 500.4050, L100.0500 #### [facility] [address] [place], [address] Basic Metabolic Profile (BMP) Normal 136-145 [facility] Comment on above: Order Comment: 302.1 Result Comment: UTO X1 TOLD NURSE Performed By: #### L 500.4050, L100.0500 #### [facility] [address] [place], [address] CBC-Complete Blood Cnt No Di fareedon 03-26-2024 HCT Normal 37-47 [facility] Comment on above: Order Comment: 302.1 Result Comment: UTO X1 TOLD NURSE Performed By: #### L 500.4050, L100.0500 #### [facility] [address] [place], [address] HGB Normal 12.0-15.0 [facility] Comment on above: Order Comment: 302.1 Result Comment: UTO X1 TOLD NURSE Performed By: #### L 500.4050, L100.0500 #### [facility] [address] [place], [address] MCH Normal 27.0-32.0 [facility] Comment on above: Order Comment: 302.1 Result Comment: UTO X1 TOLD NURSE Performed By: #### L 500.4050, L100.0500 #### [facility] [address] [place], [address] MCHC Normal 32-36 [facility] Comment on above: Order Comment: 302.1 Result Comment: UTO X1 TOLD NURSE Performed By: #### L 500.4050, L100.0500 #### [facility] [address] [place], [address] MCV Normal 81-99 [facility] Comment on above: Order Comment: 302.1 Result Comment: UTO X1 TOLD NURSE Performed By: #### L 500.4050, L100.0500 #### [facility] [address] [place], [address] PLT Normal 150-450 [facility] Comment on above: Order Comment: 302.1 Result Comment: UTO X1 TOLD NURSE Performed By: #### L 500.4050, L100.0500 #### [facility] [address] [place], [address] RBC Normal 4.2-5.4 [facility] Comment on above: Order Comment: 302.1 Result Comment: UTO X1 TOLD NURSE Performed By: #### L 500.4050, L100.0500 #### [facility] [address] [place], [address] RDW CV Normal 11.6-14.6 [facility] Comment on above: Order Comment: 302.1 Result Comment: UTO X1 TOLD NURSE Performed By: #### L 500.4050, L100.0500 #### [facility] [address] [place], [address] RDW SD Normal 35.1-43.9 [facility] Comment on above: Order Comment: 302.1 Result Comment: UTO X1 TOLD NURSE Performed By: #### L 500.4050, L100.0500 #### [facility] [address] [place], [address] WBC Normal 4.4-11.0 [facility] Comment on above: Order Comment: 302.1 Result Comment: UTO X1 TOLD NURSE Performed By: #### L 500.4050, L100.0500 #### [facility] [address] [place], [address] Basic Metabolic Profile (BMP )on 03-25-2024 BUN Normal 7-18 [facility] Comment on above: Order Comment: 302.1 Result Comment: UTO X1-TOLD NURSE Performed By: #### L 500.2500, L100.0500 #### [facility] [address] [place], [address] BUN/CRE Normal 10-20 [facility] Comment on above: Order Comment: 302.1 Result Comment: UTO X1-TOLD NURSE Performed By: #### L 500.2500, L100.0500 #### [facility] [address] [place], [address] CA,Total Normal 8.5-10.1 [facility] Comment on above: Order Comment: 302.1 Result Comment: UTO X1-TOLD NURSE Performed By: #### L 500.2500, L100.0500 #### [facility] [address] [place], [address] CL Normal 98-107 [facility] Comment on above: Order Comment: 302.1 Result Comment: UTO X1-TOLD NURSE Performed By: #### L 500.2500, L100.0500 #### [facility] [address] [place], [address] CO2 Normal 21.0-32.0 [facility] Comment on above: Order Comment: 302.1 Result Comment: UTO X1-TOLD NURSE Performed By: #### L 500.2500, L100.0500 #### [facility] [address] [place], [address] CREAT,SERUM Normal 0.55-1.02 [facility] Comment on above: Order Comment: 302.1 Result Comment: UTO X1-TOLD NURSE Performed By: #### L 500.2500, L100.0500 #### [facility] [address] [place], [address] EST GFR Normal >60 [facility] Comment on above: Order Comment: 302.1 Result Comment: UTO X1-TOLD NURSE Performed By: #### L 500.2500, L100.0500 #### [facility] [address] [place], [address] EST GFR - AA Normal >60 [facility] Comment on above: Order Comment: 302.1 Result Comment: UTO X1-TOLD NURSE Performed By: #### L 500.2500, L100.0500 #### [facility] [address] [place], [address] GAP Normal 5-15 [facility] Comment on above: Order Comment: 302.1 Result Comment: UTO X1-TOLD NURSE Performed By: #### L 500.2500, L100.0500 #### [facility] [address] [place], [address] GLU Normal 74-106 [facility] Comment on above: Order Comment: 302.1 Result Comment: UTO X1-TOLD NURSE Performed By: #### L 500.2500, L100.0500 #### [facility] [address] [place], [address] Potassium Normal 3.5-5.1 [facility] Comment on above: Order Comment: 302.1 Result Comment: UTO X1-TOLD NURSE Performed By: #### L 500.2500, L100.0500 #### [facility] [address] [place], [address] Basic Metabolic Profile (BMP) Normal 136-145 [facility] Comment on above: Order Comment: 302.1 Result Comment: UTO X1-TOLD NURSE Performed By: #### L 500.2500, L100.0500 #### [facility] [address] [place], [address] CBC-Complete Blood Cnt No Di ffon 03-25-2024 HCT Normal 37-47 [facility] Comment on above: Order Comment: 302.1 Result Comment: UTO X1-TOLD NURSE Performed By: #### L 500.2500, L100.0500 #### [facility] [address] [place], [address] HGB Normal 12.0-15.0 [facility] Comment on above: Order Comment: 302.1 Result Comment: UTO X1-TOLD NURSE Performed By: #### L 500.2500, L100.0500 #### [facility] [address] [place], [address] MCH Normal 27.0-32.0 [facility] Comment on above: Order Comment: 302.1 Result Comment: UTO X1-TOLD NURSE Performed By: #### L 500.2500, L100.0500 #### [facility] [address] [place], [address] MCHC Normal 32-36 [facility] Comment on above: Order Comment: 302.1 Result Comment: UTO X1-TOLD NURSE Performed By: #### L 500.2500, L100.0500 #### [facility] [address] [place], [address] MCV Normal 81-99 [facility] Comment on above: Order Comment: 302.1 Result Comment: UTO X1-TOLD NURSE Performed By: #### L 500.2500, L100.0500 #### [facility] [address] [place], [address] PLT Normal 150-450 [facility] Comment on above: Order Comment: 302.1 Result Comment: UTO X1-TOLD NURSE Performed By: #### L 500.2500, L100.0500 #### [facility] [address] [place], [address] RBC Normal 4.2-5.4 [facility] Comment on above: Order Comment: 302.1 Result Comment: UTO X1-TOLD NURSE Performed By: #### L 500.2500, L100.0500 #### [facility] [address] [place], [address] RDW CV Normal 11.6-14.6 [facility] Comment on above: Order Comment: 302.1 Result Comment: UTO X1-TOLD NURSE Performed By: #### L 500.2500, L100.0500 #### [facility] [address] [place], [address] RDW SD Normal 35.1-43.9 [facility] Comment on above: Order Comment: 302.1 Result Comment: UTO X1-TOLD NURSE Performed By: #### L 500.2500, L100.0500 #### [facility] [address] [place], [address] WBC Normal 4.4-11.0 [facility] Comment on above: Order Comment: 302.1 Result Comment: UTO X1-TOLD NURSE Performed By: #### L 500.2500, L100.0500 #### [facility] [address] [place], [address] Basophil percentageOrdered B y: Venkat Malin on 10-29-2023 Basophil percentage 10-25 SEEN /hpf 0-5 [facility] Bilirubin Test strip Ql (U)O rdered By: Venkat Malin on 10-29-2023 Bilirubin Ql (U) Negative Negative [facility] Culture, urineOrdered By: Dov Gonzalez on 10-29-2023 Bacteria identified Cx Nom (U) Escherichia coli [facility] Ketones Test strip Ql (U)Ord ered By: Venkat Malin on 10-29-2023 Ketones Ql (U) 5 mg/dl Negative [facility] Mucus LM Ql (Urine sed)Order ed By: Venkat Malin on 10-29-2023 Mucus Ql (Urine sed) 0 SEEN /hpf [facility] Nitrite Test strip Ql (U)Ord ered By: Venkat Malin on 10-29-2023 Nitrite Ql (U) Positive Negative [facility] No Panel InformationOrdered By: Venkat Malin on 10-29-2023 Urine RBC 25-50 SEEN /hpf 0-5 [facility] Protein Test strip Ql (U)Ord ered By: Venkat Malin on 10-29-2023 Protein Ql (U) 30 mg/dl Negative [facility] Squamous epithelial cells de tection in urine sediment by light microscopyOrdered By: Venkat Malin on 10-29-2023 Epithelial cells.squamous LM Ql (Urine sed) 0-5 SEEN /hpf 5-10 [facility] Urine blood detectionOrdered By: Venkat Malin on 10-29-2023 RBC Ql (U) 250 /ul Negative [facility] Urine clarityOrdered By: Sarah Malin on 10-29-2023 Clarity (U) Sl. Cloudy Clear [facility] Urine color determinationOrd ered By: Venkat Malin on 10-29-2023 Color (U) Yellow Yellow [facility] Urine glucose detectionOrder ed By: Venkat Malin on 10-29-2023 Glucose Ql (U) Normal mg/dl Normal [facility] Urine leukocyte esterase det ection by dipstickOrdered By: Venkat Malin on 10-29-2023 Leukocyte esterase Test strip Ql (U) 100 /ul Negative [facility] Urine pHOrdered By: Venkat glynn on 10-29-2023 pH (U) 6.0 [pH] 5.0 - 8.0 [facility] Urine sediment bacteria coun t by microscopy (number/high power field)Ordered By: Venkat Malin on 10-29-2023 Bacteria LM.HPF (Urine sed) [#/Area] 3 /[HPF] None Seen [facility] Urine specific gravity measu rementOrdered By: Venkat Malin on 10-29-2023 Specific gravity (U) [Rel density] 1.020 1.002-1.03 0 [facility] Urine urobilinogen measureme ntOrdered By: Venkat Malin on 10-29-2023 Urobilinogen Ql (U) 1 mg/dl Normal [facility] Basophil percentageOrdered B y: Venkat Malin on 10-18-2023 Chloride [Moles/Vol] 111 mmol/L 98-107 [facility] Glucose [Mass/Vol] 92 mg/dL 74-106 [facility] Hemoglobin (Bld) [Mass/Vol] 13.3 g/dL 12.0-15.0 [facility] Potassium [Moles/Vol] 3.6 mmol/L 3.5-5.1 [facility] Comment on above: Slight Hemolysis, Re sult may be falsely increased. Sodium [Moles/Vol] 139 mmol/L 136-145 [facility] WBC (Bld) [#/Vol] 8.0 10*3/uL 4.4-11.0 [facility] Determination of erythrocyte mean corpuscular volume (MCV)Ordered By: Venkat Malin on 10-18-2023 MCV (RBC) [Entitic vol] 87.1 fL 81-99 [facility] Erythrocyte distribution wid th ratioOrdered By: Venkat Malin on 10-18-2023 Erythrocyte distribution width (RBC) [Ratio] 14.9 % 11.6-14.6 [facility] Erythrocyte distribution wid th standard deviationOrdered By: Venkat Malin on 10-18-2023 Erythrocyte distribution width (RBC) [Entitic vol] 48.1 fL 35.1-43.9 [facility] Hematocrit Auto (Bld) [Volum e fraction]Ordered By: Venkat Malin on 10-18-2023 Hematocrit (Bld) [Volume fraction] 41.3 % 37-47 [facility] - Chemistry and C hemistry - challengeOrdered By: Venkat Malin on 10-18-2023 CO2 [Moles/Vol] 23.0 mmol/L 21.0-32.0 [facility] Urea nitrogen/Creatinine [Mass ratio] 24.5 mg/mg 10-20 [facility] - Hematology and Cell countsOrdered By: Venkat Malin on 10-18-2023 MCH (RBC) [Entitic mass] 28.1 pg 27.0-32.0 [facility] MCHC (RBC) [Mass/Vol] 32.2 g/dL 32-36 [facility] Platelet mean volume (Bld) [Entitic vol] 12.1 fL 6.2-12.0 [facility] Platelets (Bld) [#/Vol] 224 10*3/uL 150-450 [facility] No Panel InformationOrdered By: Venkat Malin on 10-18-2023 Estimated GFR (MDRD) Amer 124 mL/min >60 [facility] Comment on above: GFR Calc Estimated GFR (MDRD) Non-Af Amer 103 mL/min >60 [facility] Comment on above: Non- GFR Calc RBC Auto (Bld) [#/Vol]Ordere d By: Venkat Malin on 10-18-2023 RBC (Bld) [#/Vol] 4.74 10*6/uL 4.2-5.4 [facility] Serum or plasma calcium kavin urement (mass/volume)Ordered By: Venkat Malin on 10-18-2023 Calcium [Mass/Vol] 9.1 mg/dL 8.5-10.1 [facility] Serum or plasma creatinine m easurement (mass/volume)Ordered By: Venkat Malin on 10-18-2023 Creatinine [Mass/Vol] 0.65 mg/dL 0.55-1.02 [facility] Comment on above: The validity of the calculated GFR & GFRAA in patients over 70 years has not been determined. Clinical correlation is essential. Serum or plasma urea nitroge n measurement (mass/volume)Ordered By: Venkat Malin on 10-18-2023 Urea nitrogen [Mass/Vol] 16 mg/dL 7-18 [facility] Thin prep Papanicolaou smear with manual screeningOrdered By: Venkat Malin on 10-18-2023 Thin prep Papanicolaou smear with manual screening 5 5-15 [facility] Basophil percentageOrdered B y: Venkat Malin on 10-09-2023 Chloride [Moles/Vol] 108 mmol/L 98-107 [facility] Glucose [Mass/Vol] 77 mg/dL 74-106 [facility] Potassium [Moles/Vol] 3.7 mmol/L 3.5-5.1 [facility] Sodium [Moles/Vol] 139 mmol/L 136-145 [facility] Laboratory - Chemistry and C hemistry - challengeOrdered By: Venkat Malin on 10-09-2023 CO2 [Moles/Vol] 24.0 mmol/L 21.0-32.0 [facility] Urea nitrogen/Creatinine [Mass ratio] 25.7 mg/mg 10- [facility] No Panel InformationOrdered By: Venkat Malin on 10-09-2023 Estimated GFR (MDRD) Amer 108 mL/min >60 [facility] Comment on above: GFR Calc Estimated GFR (MDRD) Non-Af Amer 89 mL/min >60 [facility] Comment on above: Non- GFR Calc Serum or plasma calcium kavin urement (mass/volume)Ordered By: Venkat Malin on 10-09-2023 Calcium [Mass/Vol] 9.1 mg/dL 8.5-10.1 [facility] Serum or plasma creatinine m easurement (mass/volume)Ordered By: Venkat Malin on 10-09-2023 Creatinine [Mass/Vol] 0.74 mg/dL 0.55-1.02 [facility] Comment on above: The validity of the calculated GFR & GFRAA in patients over 70 years has not been determined. Clinical correlation is essential. Serum or plasma urea nitroge n measurement (mass/volume)Ordered By: Venkat Malin on 10-09-2023 Urea nitrogen [Mass/Vol] 19 mg/dL 7-18 [facility] Thin prep Papanicolaou smear with manual screeningOrdered By: Venkat Malin on 10-09-2023 Thin prep Papanicolaou smear with manual screening 7 5-15 [facility] Basophil percentageOrdered B y: Venkat Malin on 09-28-2023 Chloride [Moles/Vol] 110 mmol/L 98-107 [facility] Glucose [Mass/Vol] 90 mg/dL 74-106 [facility] Potassium [Moles/Vol] 3.6 mmol/L 3.5-5.1 [facility] Sodium [Moles/Vol] 140 mmol/L 136-145 [facility] Laboratory - Chemistry and C hemistry - challengeOrdered By: Venkat Malin on 09-28-2023 CO2 [Moles/Vol] 25.0 mmol/L 21.0-32.0 [facility] Urea nitrogen/Creatinine [Mass ratio] 21.7 mg/mg 10-20 [facility] No Panel InformationOrdered By: Venkat Malin on 09-28-2023 Estimated GFR (MDRD) Amer 95 mL/min >60 [facility] Comment on above: GFR Calc Estimated GFR (MDRD) Non-Af Amer 78 mL/min >60 [facility] Comment on above: Non- GFR Calc Serum or plasma calcium kavin urement (mass/volume)Ordered By: Venkat Malin on 09-28-2023 Calcium [Mass/Vol] 9.5 mg/dL 8.5-10.1 [facility] Serum or plasma creatinine m easurement (mass/volume)Ordered By: Venkat Malin on 09-28-2023 Creatinine [Mass/Vol] 0.83 mg/dL 0.55-1.02 [facility] Comment on above: The validity of the calculated GFR & GFRAA in patients over 70 years has not been determined. Clinical correlation is essential. Serum or plasma urea nitroge n measurement (mass/volume)Ordered By: Venkat Malin on 09-28-2023 Urea nitrogen [Mass/Vol] 18 mg/dL 7-18 [facility] Thin prep Papanicolaou smear with manual screeningOrdered By: Venkat Malin on 09-28-2023 Thin prep Papanicolaou smear with manual screening 5 5-15 [facility] Basophil percentageOrdered B y: Venkat Malin on 09-20-2023 Bilirubin [Mass/Vol] 0.40 mg/dL 0.20-1.00 [facility] Comment on above: For patients on eltr ombopag therapy, use of Dimension [place] TBIL is not recommended. Chloride [Moles/Vol] 111 mmol/L 98-107 [facility] Glucose [Mass/Vol] 105 mg/dL 74-106 [facility] Comment on above: Fasting Glucose resu lt from 100 to 125 mg/dL suggests IMPAIRED HOMEOSTASIS per A.D.A. criteria. Hemoglobin (Bld) [Mass/Vol] 14.0 g/dL 12.0-15.0 [facility] Potassium [Moles/Vol] 3.4 mmol/L 3.5-5.1 [facility] Comment on above: Slight Hemolysis, Re sult may be falsely increased. Protein [Mass/Vol] 7.7 g/dL 6.4-8.2 [facility] Sodium [Moles/Vol] 140 mmol/L 136-145 [facility] WBC (Bld) [#/Vol] 7.2 10*3/uL 4.4-11.0 [facility] Determination of erythrocyte mean corpuscular volume (MCV)Ordered By: Venkat Malin on 09-20-2023 MCV (RBC) [Entitic vol] 88.0 fL 81-99 [facility] Erythrocyte distribution wid th ratioOrdered By: Venkat Malin on 09-20-2023 Erythrocyte distribution width (RBC) [Ratio] 14.5 % 11.6-14.6 [facility] Erythrocyte distribution wid th standard deviationOrdered By: Venkat Malin on 09-20-2023 Erythrocyte distribution width (RBC) [Entitic vol] 46.5 fL 35.1-43.9 [facility] Hematocrit Auto (Bld) [Volum e fraction]Ordered By: Venkat Malin on 09-20-2023 Hematocrit (Bld) [Volume fraction] 44.2 % 37-47 [facility] - Chemistry and C hemistry - challengeOrdered By: Venkat Malin on 09-20-2023 Albumin/Globulin [Mass ratio] 0.5 {ratio} 0.9-2.4 [facility] ALP [Catalytic activity/Vol] 117 U/L 45-117 [facility] ALT [Catalytic activity/Vol] 14 U/L 13-56 [facility] CO2 [Moles/Vol] 23.0 mmol/L 21.0-32.0 [facility] Globulin (S) [Mass/Vol] 5.1 g/dL 2.2-4.2 [facility] Urea nitrogen/Creatinine [Mass ratio] 17.5 mg/mg 10-20 [facility] - Hematology and Cell countsOrdered By: Venkat Malin on 09-20-2023 MCH (RBC) [Entitic mass] 27.9 pg 27.0-32.0 [facility] MCHC (RBC) [Mass/Vol] 31.7 g/dL 32-36 [facility] Platelet mean volume (Bld) [Entitic vol] 11.6 fL 6.2-12.0 [facility] Platelets (Bld) [#/Vol] 276 10*3/uL 150-450 [facility] No Panel InformationOrdered By: Venkat Malin on 09-20-2023 Estimated GFR (MDRD) Amer 91 mL/min >60 [facility] Comment on above: GFR Calc Estimated GFR (MDRD) Non-Af Amer 75 mL/min >60 [facility] Comment on above: Non- GFR Calc RBC Auto (Bld) [#/Vol]Ordere d By: Venkat Malin on 09-20-2023 RBC (Bld) [#/Vol] 5.02 10*6/uL 4.2-5.4 [facility] Serum or plasma calcium kavin urement (mass/volume)Ordered By: Venkat Malin on 09-20-2023 Calcium [Mass/Vol] 9.3 mg/dL 8.5-10.1 [facility] Serum or plasma creatinine m easurement (mass/volume)Ordered By: Venkat Malin on 09-20-2023 Creatinine [Mass/Vol] 0.86 mg/dL 0.55-1.02 [facility] Comment on above: The validity of the calculated GFR & GFRAA in patients over 70 years has not been determined. Clinical correlation is essential. Serum or plasma urea nitroge n measurement (mass/volume)Ordered By: Venkat Malin on 09-20-2023 Urea nitrogen [Mass/Vol] 15 mg/dL 7-18 [facility] Thin prep Papanicolaou smear with manual screeningOrdered By: Venkat Malin on 09-20-2023 Thin prep Papanicolaou smear with manual screening 2.6 g/dL 3.2-5.0 [facility] Thin prep Papanicolaou smear with manual screening 11 U/L 15-37 [facility] Comment on above: Slight Hemolysis, Re sult may be falsely increased. Thin prep Papanicolaou smear with manual screening 6 5-15 [facility] Basophil percentageOrdered B y: Venkat Malin on 09-19-2023 Bilirubin [Mass/Vol] 0.30 mg/dL 0.20-1.00 [facility] Comment on above: For patients on eltr ombopag therapy, use of Dimension [place] TBIL is not recommended. Chloride [Moles/Vol] 111 mmol/L 98-107 [facility] Glucose [Mass/Vol] 97 mg/dL 74-106 [facility] Hemoglobin (Bld) [Mass/Vol] 13.6 g/dL 12.0-15.0 [facility] Potassium [Moles/Vol] 3.9 mmol/L 3.5-5.1 [facility] Protein [Mass/Vol] 7.9 g/dL 6.4-8.2 [facility] Sodium [Moles/Vol] 139 mmol/L 136-145 [facility] WBC (Bld) [#/Vol] 7.7 10*3/uL 4.4-11.0 [facility] Determination of erythrocyte mean corpuscular volume (MCV)Ordered By: Venkat Malin on 09-19-2023 MCV (RBC) [Entitic vol] 90.0 fL 81-99 [facility] Erythrocyte distribution wid th ratioOrdered By: Venkat Malin on 09-19-2023 Erythrocyte distribution width (RBC) [Ratio] 14.5 % 11.6-14.6 [facility] Erythrocyte distribution wid th standard deviationOrdered By: Venkat Malin on 09-19-2023 Erythrocyte distribution width (RBC) [Entitic vol] 48.0 fL 35.1-43.9 [facility] Hematocrit Auto (Bld) [Volum e fraction]Ordered By: Venkat Malin on 09-19-2023 Hematocrit (Bld) [Volume fraction] 44.8 % 37-47 [facility] - Chemistry and C hemistry - challengeOrdered By: Venkat Malin on 09-19-2023 Albumin/Globulin [Mass ratio] 0.5 {ratio} 0.9-2.4 [facility] ALP [Catalytic activity/Vol] 122 U/L 45-117 [facility] ALT [Catalytic activity/Vol] 12 U/L 13-56 [facility] CO2 [Moles/Vol] 23.0 mmol/L 21.0-32.0 [facility] Globulin (S) [Mass/Vol] 5.1 g/dL 2.2-4.2 [facility] Urea nitrogen/Creatinine [Mass ratio] 20.3 mg/mg 10-20 [facility] - Hematology and Cell countsOrdered By: Venkat Malin on 09-19-2023 MCH (RBC) [Entitic mass] 27.3 pg 27.0-32.0 [facility] MCHC (RBC) [Mass/Vol] 30.4 g/dL 32-36 [facility] Platelet mean volume (Bld) [Entitic vol] 11.4 fL 6.2-12.0 [facility] Platelets (Bld) [#/Vol] 331 10*3/uL 150-450 [facility] No Panel InformationOrdered By: Venkat Malin on 09-19-2023 Estimated GFR (MDRD) Amer 100 mL/min >60 [facility] Comment on above: GFR Calc Estimated GFR (MDRD) Non-Af Amer 83 mL/min >60 [facility] Comment on above: Non- GFR Calc RBC Auto (Bld) [#/Vol]Ordere d By: Venkat Malin on 09-19-2023 RBC (Bld) [#/Vol] 4.98 10*6/uL 4.2-5.4 [facility] Serum or plasma calcium kavin urement (mass/volume)Ordered By: Venkat Malin on 09-19-2023 Calcium [Mass/Vol] 9.3 mg/dL 8.5-10.1 [facility] Serum or plasma creatinine m easurement (mass/volume)Ordered By: Venkat Malin on 09-19-2023 Creatinine [Mass/Vol] 0.79 mg/dL 0.55-1.02 [facility] Comment on above: The validity of the calculated GFR & GFRAA in patients over 70 years has not been determined. Clinical correlation is essential. Serum or plasma oxcarbazepin e measurement (mass/volume)Ordered By: Venkat Malin on 09-19-2023 OXcarbazepine [Mass/Vol] 17 ug/mL 10-35 [facility] Comment on above: This test was develo ped and its performance characteristicsdetermined by [employer]. It has not been cleared orapproved by the Food and Drug Administration. Detection Limit = 1Performed at: [facility] [address] [id number] Director: Martha Estrada MD, Phone: [phone] Serum or plasma urea nitroge n measurement (mass/volume)Ordered By: Venkat Malin on 09-19-2023 Urea nitrogen [Mass/Vol] 16 mg/dL 7-18 [facility] Thin prep Papanicolaou smear with manual screeningOrdered By: Venkat Malin on 09-19-2023 Thin prep Papanicolaou smear with manual screening 2.8 g/dL 3.2-5.0 [facility] Thin prep Papanicolaou smear with manual screening 12 U/L 15-37 [facility] Thin prep Papanicolaou smear with manual screening 5 5-15 [facility] Absolute lymphocyte countOrd ered By: Venkat Malin on 08-31-2023 Lymphocytes Auto (Unsp spec) [#/Vol] 2.12 10*3/uL 0.83-4.51 [facility] Automated lymphocyte count a s percentage of total leukocytesOrdered By: Venkat Mailn on 08-31-2023 Lymphocytes/100 WBC Auto (Unsp spec) 39.0 % 19-41 [facility] Basophil percentageOrdered B y: Venkat Malin on 08-31-2023 Basophils/100 WBC (Bld) 0.9 % 0-1 [facility] Bilirubin [Mass/Vol] 0.30 mg/dL 0.20-1.00 [facility] Comment on above: For patients on eltr ombopag therapy, use of Dimension [place] TBIL is not recommended. Chloride [Moles/Vol] 108 mmol/L 98-107 [facility] Eosinophils/100 WBC (Bld) 2.6 % 0-5 [facility] Glucose [Mass/Vol] 84 mg/dL 74-106 [facility] Hemoglobin (Bld) [Mass/Vol] 13.3 g/dL 12.0-15.0 [facility] Monocytes/100 WBC (Bld) 8.7 % 0-10 [facility] Neutrophils (Bld) [#/Vol] 2.6 10*3/uL 2.0-7.7 [facility] Neutrophils/100 WBC (Bld) 48.4 % 47-70 [facility] Potassium [Moles/Vol] 3.4 mmol/L 3.5-5.1 [facility] Protein [Mass/Vol] 7.3 g/dL 6.4-8.2 [facility] Sodium [Moles/Vol] 135 mmol/L 136-145 [facility] WBC (Bld) [#/Vol] 5.4 10*3/uL 4.4-11.0 [facility] Determination of erythrocyte mean corpuscular volume (MCV)Ordered By: Venkat Malin on 08-31-2023 MCV (RBC) [Entitic vol] 90.7 fL 81-99 [facility] Erythrocyte distribution wid th ratioOrdered By: Venkat Malin on 08-31-2023 Erythrocyte distribution width (RBC) [Ratio] 14.4 % 11.6-14.6 [facility] Erythrocyte distribution wid th standard deviationOrdered By: Venkat Malin on 08-31-2023 Erythrocyte distribution width (RBC) [Entitic vol] 47.8 fL 35.1-43.9 [facility] Hematocrit Auto (Bld) [Volum e fraction]Ordered By: Venkat Malin on 08-31-2023 Hematocrit (Bld) [Volume fraction] 44.1 % 37-47 [facility] Immature granulocytes/100 WB C Auto (Bld)Ordered By: Venkat Malin on 08-31-2023 Immature granulocytes/100 WBC (Bld) 0.400 % 0.0-0.9 [facility] Comment on above: IG% - Immature Granu locytes (promyelocytes, myelocytes and metamyelocytes) > 1% indicates that a LEFT SHIFT is Present. Laboratory - Chemistry and C hemistry - challengeOrdered By: Venkat Malin on 08-31-2023 Albumin/Globulin [Mass ratio] 0.6 {ratio} 0.9-2.4 [facility] ALP [Catalytic activity/Vol] 103 U/L 45-117 [facility] ALT [Catalytic activity/Vol] 14 U/L 13-56 [facility] CO2 [Moles/Vol] 25.0 mmol/L 21.0-32.0 [facility] Globulin (S) [Mass/Vol] 4.6 g/dL 2.2-4.2 [facility] Urea nitrogen/Creatinine [Mass ratio] 21.6 mg/mg 10-20 [facility] Laboratory - Hematology and Cell countsOrdered By: Venkat Malni on 08-31-2023 MCH (RBC) [Entitic mass] 27.4 pg 27.0-32.0 [facility] MCHC (RBC) [Mass/Vol] 30.2 g/dL 32-36 [facility] Nucleated RBC/100 WBC (Bld) [Ratio] 0 % 0-5 [facility] Platelets (Bld) [#/Vol] 297 10*3/uL 150-450 [facility] No Panel InformationOrdered By: Venkat Malin on 08-31-2023 Carbamazepine (Tegretol) Level 0.7 ug/mL 4.0-12.0 [facility] Estimated GFR (MDRD) Amer 116 mL/min >60 [facility] Comment on above: GFR Calc Estimated GFR (MDRD) Non-Af Amer 96 mL/min >60 [facility] Comment on above: Non- GFR Calc Platelet mean volume [place]-Ec ker (Bld) [Entitic vol]Ordered By: Venkat Malin on 08-31-2023 Platelet mean volume (Bld) [Entitic vol] 11.7 fL 6.2-12.0 [facility] RBC Auto (Bld) [#/Vol]Ordere d By: Venkat Malin on 08-31-2023 RBC (Bld) [#/Vol] 4.86 10*6/uL 4.2-5.4 [facility] Serum or plasma calcium kavin urement (mass/volume)Ordered By: Venkat aMlin on 08-31-2023 Calcium [Mass/Vol] 8.7 mg/dL 8.5-10.1 [facility] Serum or plasma creatinine m easurement (mass/volume)Ordered By: Venkat Malin on 08-31-2023 Creatinine [Mass/Vol] 0.69 mg/dL 0.55-1.02 [facility] Comment on above: The validity of the calculated GFR & GFRAA in patients over 70 years has not been determined. Clinical correlation is essential. Serum or plasma urea nitroge n measurement (mass/volume)Ordered By: Venkat Malin on 08-31-2023 Urea nitrogen [Mass/Vol] 15 mg/dL 7-18 [facility] Thin prep Papanicolaou smear with manual screeningOrdered By: Venkat Malin on 08-31-2023 Thin prep Papanicolaou smear with manual screening 2.7 g/dL 3.2-5.0 [facility] Thin prep Papanicolaou smear with manual screening 10 U/L 15-37 [facility] Thin prep Papanicolaou smear with manual screening 2 5-15 [facility] Basophil percentageOrdered B y: Venkat Malin on 07-19-2023 Bilirubin [Mass/Vol] 0.30 mg/dL 0.20-1.00 [facility] Comment on above: For patients on eltr ombopag therapy, use of Dimension [place] TBIL is not recommended. Chloride [Moles/Vol] 110 mmol/L 98-107 [facility] Glucose [Mass/Vol] 85 mg/dL 74-106 [facility] Potassium [Moles/Vol] 3.7 mmol/L 3.5-5.1 [facility] Protein [Mass/Vol] 8.0 g/dL 6.4-8.2 [facility] Sodium [Moles/Vol] 140 mmol/L 136-145 [facility] WBC (Bld) [#/Vol] 5.4 10*3/uL 4.4-11.0 [facility] Blood erythrocytes count (nu mber/volume)Ordered By: Venkat Malin on 07-19-2023 RBC (Bld) [#/Vol] 5.15 10*6/uL 4.2-5.4 [facility] Blood hemoglobin measurement (mass/volume)Ordered By: Venkat Malin on 07-19-2023 Hemoglobin (Bld) [Mass/Vol] 14.5 g/dL 12.0-15.0 [facility] Blood platelet mean volumeOr dered By: Venkat Malin on 07-19-2023 Platelet mean volume (Bld) [Entitic vol] 11.1 fL 6.2-12.0 [facility] Determination of erythrocyte mean corpuscular volume (MCV)Ordered By: Venkat Malin on 07-19-2023 MCV (RBC) [Entitic vol] 90.3 fL 81-99 [facility] Hematocrit Auto (Bld) [Volum e fraction]Ordered By: Venkat Malin on 07-19-2023 Hematocrit (Bld) [Volume fraction] 46.5 % 37-47 [facility] Laboratory - Chemistry and C hemistry - challengeOrdered By: Venkat Malin on 07-19-2023 ALP [Catalytic activity/Vol] 170 U/L 45-117 [facility] ALT [Catalytic activity/Vol] 33 U/L 13-56 [facility] CO2 [Moles/Vol] 27.0 mmol/L 21.0-32.0 [facility] Globulin (S) [Mass/Vol] 4.8 g/dL 2.2-4.2 [facility] Urea nitrogen/Creatinine [Mass ratio] 19.5 mg/mg 10-20 [facility] Laboratory - Hematology and Cell countsOrdered By: Venkat Malin on 07-19-2023 Erythrocyte distribution width (RBC) [Entitic vol] 50.0 fL 35.1-43.9 [facility] Erythrocyte distribution width (RBC) [Ratio] 14.9 % 11.6-14.6 [facility] MCH (RBC) [Entitic mass] 28.2 pg 27.0-32.0 [facility] MCHC Auto (RBC) [Mass/Vol]Or dered By: Venkat Malin on 07-19-2023 MCHC (RBC) [Mass/Vol] 31.2 g/dL 32-36 [facility] No Panel InformationOrdered By: Venkat Malin on 07-19-2023 Estimated GFR (MDRD) Amer 89 mL/min >60 [facility] Comment on above: GFR Calc Estimated GFR (MDRD) Non-Af Amer 74 mL/min >60 [facility] Comment on above: Non- GFR Calc Platelets bldOrdered By: Sarah Malin on 07-19-2023 Platelets (Bld) [#/Vol] 341 10*3/uL 150-450 [facility] Serum or plasma albumin kavin urement (mass/volume)Ordered By: Venkat Malin on 07-19-2023 Albumin [Mass/Vol] 3.2 g/dL 3.2-5.0 [facility] Serum or plasma albumin/glob ulin mass ratioOrdered By: Venkat Malin on 07-19-2023 Albumin/Globulin [Mass ratio] 0.7 {ratio} 0.9-2.4 [facility] Serum or plasma calcium kavin urement (mass/volume)Ordered By: Venkat Malin on 07-19-2023 Calcium [Mass/Vol] 9.1 mg/dL 8.5-10.1 [facility] Serum or plasma creatinine m easurement (mass/volume)Ordered By: Venkat Malin on 07-19-2023 Creatinine [Mass/Vol] 0.87 mg/dL 0.55-1.02 [facility] Comment on above: The validity of the calculated GFR & GFRAA in patients over 70 years has not been determined. Clinical correlation is essential. Serum or plasma urea nitroge n measurement (mass/volume)Ordered By: Venkat Malin on 07-19-2023 Urea nitrogen [Mass/Vol] 17 mg/dL 7-18 [facility] Thin prep Papanicolaou smear with manual screeningOrdered By: Venkat Malin on 07-19-2023 Thin prep Papanicolaou smear with manual screening 15 U/L 15-37 [facility] Thin prep Papanicolaou smear with manual screening 3 5-[address] [facility] [address] Abdomen WO contraston 1. Left UPJ calculus and multiple left renal calculi. Moderate left hydronephrosis. 2. Moderate to large amount of stool in the colon. Consider constipation. 3. Left pleural effusion. Report Dictated on Electronically Signed By: Dakotah Alan MD Electronically Signed Date/Time: 07/11/2023 12:46 PM [facility] RADIOLOGY SYSTEM Patient Name: DIANA PUGH : [...] Osseous structures: Dextrocurvature of the visualized spine. [facility] RADIOLOGY SYSTEM Dakotah Alan MD - 07/11/2023 [facility] Name: [facility]ABRESE [facility] 1975 [id number] Exam Date/Time: 07/11/2023 11:09 Procedure: CT ABDOMEN [...] Electronically Signed Date/Time: 07/11/2023 12:46 PM EST [facility] Radiology Study observation (narrative) [facility] CT Abdomen WO contrastOrdere d By: Dakotah Alan on 07-11-2023 [facility] Work Phone: Bacteria identified Cx Nom ( Bld)Ordered By: Fide Lobato on 07-10-2023 Interpretation and review of laboratory results Abnormal [facility] Blood Collection Sit e: Left Hand [facility] Bacteria identified Cx Nom ( Bld)on 07-10-2023 Interpretation and review of laboratory results Abnormal [facility] Blood Collection Sit e: Right Arm [facility] Bacteria identified Cx Nom ( U)Ordered By: Duong Hall on 07-10-2023 Interpretation and review of laboratory results Abnormal [facility] Basic metabolic 1998 panelon 07-10-2023 Anion gap [Moles/Vol] 7 mmol/L 3 - 13 mmol/L [facility] Calcium [Mass/Vol] 8.2 mg/dL Low 8.4 - 10. 4 mg/dL [facility] Chloride [Moles/Vol] 109 mmol/L High 98 - 10 7 mmol/L [facility] CO2 [Moles/Vol] 21 mmol/L Low 22 - 30 mmol/L [facility] Creatinine [Mass/Vol] 0.69 mg/dL 0.52 - 1.04 mg/dL [facility] GFR/1.73 sq M.predicted MDRD (S/P/Bld) [Vol rate/Area] - PINF [facility] Comment on above: Calculation based on the Chronic Kidney Disease Epidemiology Collaboration (CKD-EPI) equation refit without adjustment for race Glucose [Mass/Vol] 89 mg/dL 70 - 100 mg/dL [facility] Interpretation and review of laboratory results Abnormal [facility] Potassium [Moles/Vol] 3.8 mmol/L 3.5 - 5.1 mmol/L [facility] Sodium [Moles/Vol] 137 mmol/L 135 - 145 mmol/L [facility] Urea nitrogen [Mass/Vol] 9 mg/dL 7 - 17 mg/dL [facility] CBC panel Auto (Bld)Ordered By: Dariel Hollins on 07-10-2023 Erythrocyte distribution width (RBC) [Ratio] 15.1 % High 11.5 - 14.5 % [facility] Hematocrit (Bld) [Volume fraction] 32.7 % Low 35.0 - 47.0 % [facility] Hemoglobin (Bld) [Mass/Vol] 10.8 g/dL Low 11.7 - 16.0 g/dL [facility] Interpretation and review of laboratory results Abnormal [facility] MCH (RBC) [Entitic mass] 28.4 pg 26.0 - 34.0 pg [facility] MCHC (RBC) [Mass/Vol] 33.1 % 32.0 - 36.0 % [facility] MCV (RBC) [Entitic vol] 85.8 fL 80.0 - 98.0 fL [facility] Platelet mean volume (Bld) [Entitic vol] 8.6 fL 7.4 - 12.4 fL [facility] Platelets (Bld) [#/Vol] 291 10*3/uL 140 - 440 10*3/uL [facility] RBC (Bld) [#/Vol] 3.82 10*6/uL 3.8 - 5.20 10*6/uL [facility] WBC (Bld) [#/Vol] 6.5 10*3/uL 3.6 - 10.7 10*3/uL [facility] Laboratory - Drug toxicology on 07-10-2023 Vancomycin [Mass/Vol] 19.4 ug/mL 15.0 - 20.0 ug/mL [facility] Laboratory - Microbiology an d Antimicrobial susceptibilityOrdered By: Fide Lobato on 07-10-2023 Bacteria identified Cx Nom (Bld) Staphylococcus warneri Critically abnormal [facility] Comment on above: Contamination likely unless additional blood culture sets are found to be positive with the same organism. This is an edited result. Previous organism was Gram-positive cocci on 07/08/2023 at 1347 EST. Laboratory - Microbiology an d Antimicrobial susceptibilityon 07-10-2023 Bacteria identified Cx Nom (Bld) Staphylococcus capitis Critically abnormal [facility] Comment on above: Contamination likely unless additional blood culture sets are found to be positive with the same organism. This is an edited result. Previous organism was Gram-positive cocci on 07/09/2023 at 0049 EST. Laboratory - Microbiology an d Antimicrobial susceptibilityOrdered By: Duong Hall on 07-10-2023 Bacteria identified Cx Nom (U) Normal urogenital alin present [facility] Bacteria identified Cx Nom (U) 50,000-90,000 CFU/mL Escherichia coli Abnormal [facility] No Panel Informationon 07-10 Interpretation and review of laboratory results Normal [facility] Basic metabolic 1998 panelon 07-09-2023 Anion gap [Moles/Vol] 10 mmol/L 3 - 13 mmol/L [facility] Calcium [Mass/Vol] 8.3 mg/dL Low 8.4 - 10. 4 mg/dL [facility] Chloride [Moles/Vol] 111 mmol/L High 98 - 10 7 mmol/L [facility] CO2 [Moles/Vol] 20 mmol/L Low 22 - 30 mmol/L [facility] Creatinine [Mass/Vol] 0.68 mg/dL 0.52 - 1.04 mg/dL [facility] GFR/1.73 sq M.predicted MDRD (S/P/Bld) [Vol rate/Area] - PINF [facility] Comment on above: Calculation based on the Chronic Kidney Disease Epidemiology Collaboration (CKD-EPI) equation refit without adjustment for race Glucose [Mass/Vol] 86 mg/dL 70 - 100 mg/dL [facility] Interpretation and review of laboratory results Abnormal [facility] Potassium [Moles/Vol] 3.4 mmol/L Low 3.5 - 5.1 mmol/L [facility] Sodium [Moles/Vol] 141 mmol/L 135 - 145 mmol/L [facility] Urea nitrogen [Mass/Vol] 9 mg/dL 7 - 17 mg/dL [facility] CBC panel Auto (Bld)Ordered By: Amanda Cedillo on 07-09-2023 Erythrocyte distribution width (RBC) [Ratio] 14.8 % High 11.5 - 14.5 % [facility] Hematocrit (Bld) [Volume fraction] 31.1 % Low 35.0 - 47.0 % [facility] Hemoglobin (Bld) [Mass/Vol] 10.3 g/dL Low 11.7 - 16.0 g/dL [facility] Interpretation and review of laboratory results Abnormal [facility] MCH (RBC) [Entitic mass] 28.7 pg 26.0 - 34.0 pg [facility] MCHC (RBC) [Mass/Vol] 33.2 % 32.0 - 36.0 % [facility] MCV (RBC) [Entitic vol] 86.3 fL 80.0 - 98.0 fL [facility] Platelet mean volume (Bld) [Entitic vol] 8.4 fL 7.4 - 12.4 fL [facility] Platelets (Bld) [#/Vol] 261 10*3/uL 140 - 440 10*3/uL [facility] RBC (Bld) [#/Vol] 3.61 10*6/uL Low 3.8 - 5.20 10*6/uL [facility] WBC (Bld) [#/Vol] 6.5 10*3/uL 3.6 - 10.7 10*3/uL [facility] No Panel Informationon 07-08 Coagulase-negative Staphylococcus Detected Abnormal Not Detected [facility] Interpretation and review of laboratory results Abnormal [facility] Methodology: Multipl ex PCR [employer] BCID panel can detect the following organisms: [...] IMP, KPC, NDM, OXA-48-like, VIM, and mcr-1. [facility] CBC panel Auto (Bld)Ordered By: Sarahi Haas on 07-07-2023 Erythrocyte distribution width (RBC) [Ratio] 15.0 % High 11.5 - 14.5 % [facility] Hematocrit (Bld) [Volume fraction] 37.3 % 35.0 - 47.0 % [facility] Hemoglobin (Bld) [Mass/Vol] 12.3 g/dL 11.7 - 16.0 g/dL [facility] Interpretation and review of laboratory results Abnormal [facility] MCH (RBC) [Entitic mass] 28.2 pg 26.0 - 34.0 pg [facility] MCHC (RBC) [Mass/Vol] 33.0 % 32.0 - 36.0 % [facility] MCV (RBC) [Entitic vol] 85.4 fL 80.0 - 98.0 fL [facility] Platelet mean volume (Bld) [Entitic vol] 8.3 fL 7.4 - 12.4 fL [facility] Platelets (Bld) [#/Vol] 331 10*3/uL 140 - 440 10*3/uL [facility] RBC (Bld) [#/Vol] 4.37 10*6/uL 3.8 - 5.20 10*6/uL [facility] WBC (Bld) [#/Vol] 6.5 10*3/uL 3.6 - 10.7 10*3/uL [facility] CT Head WO contraston 2022 No significant inter stacey change since May 2022. Fairly extensive bilateral frontal-parietal encephalomalacia Report Dictated on Electronically Signed By: Denilson Gage MD Electronically Signed Date/Time: 07/07/2023 6:28 PM [facility] RADIOLOGY [facility] Patient Name[facility]IA[facility]GH [facility] 1975 [id number] Exam Date/Time: 07/07/2023 18:16 Procedure: CT HEAD [...] of the clivus and with C1 (anteriorly). [facility] RADIOLOGY SYSTEM Denilson Gage MD - 07/07/2023 Patient [...] Electronically Signed Date/Time: 07/07/2023 6:28 PM EST [employer] CT Head WO contrastOrdered B y: Denilson Gage on 07-07-2023 [employer] Work Phone: Comprehensive metabolic 1998 panelon 07-07-2023 Albumin [Mass/Vol] 3.4 g/dL Low 3.5 - 5.0 g/dL [facility] ALP [Catalytic activity/Vol] 91 U/L 38 - 126 U/L [facility] ALT [Catalytic activity/Vol] 15 U/L 0 - 34 U/L [facility] Anion gap [Moles/Vol] 10 mmol/L 3 - 13 mmol/L [facility] AST [Catalytic activity/Vol] 26 U/L 15 - 46 U/L [facility] Bilirubin [Mass/Vol] 0.4 mg/dL 0.2 - 1 .3 mg/dL [facility] Calcium [Mass/Vol] 8.8 mg/dL 8.4 - 10. 4 mg/dL [facility] Chloride [Moles/Vol] 105 mmol/L 98 - 10 7 mmol/L [facility] CO2 [Moles/Vol] 23 mmol/L 22 - 30 mmol/L [facility] Creatinine [Mass/Vol] 0.76 mg/dL 0.52 - 1.04 mg/dL [facility] GFR/1.73 sq M.predicted MDRD (S/P/Bld) [Vol rate/Area] - PINF [facility] Comment on above: Calculation based on the Chronic Kidney Disease Epidemiology Collaboration (CKD-EPI) equation refit without adjustment for race Glucose [Mass/Vol] 110 mg/dL High 70 - 100 mg/dL [facility] Interpretation and review of laboratory results Abnormal [facility] Potassium [Moles/Vol] 4.3 mmol/L 3.5 - 5.1 mmol/L [facility] Protein [Mass/Vol] 8.0 g/dL 6.3 - 8.2 g/dL [facility] Sodium [Moles/Vol] 137 mmol/L 135 - 145 mmol/L [facility] Urea nitrogen [Mass/Vol] 20 mg/dL High 7 - 17 mg/dL [facility] Slight hemolysis [facility] Laboratory - Chemistry and C hemistry - challengeon 07-07-2023 Lactate [Moles/Vol] 0.7 mmol/L 0.7 - 2. 0 mmol/L [facility] Troponin I.cardiac [Mass/Vol] ng/mL NINF - 0.034 ng/mL [facility] Glucose [Mass/Vol] 106 mg/dL High 70 - 100 mg/dL [facility] No Panel Informationon 07-07 Interpretation and review of laboratory results Normal [facility] P [place] 40 degrees [facility] MO Interval 151 ms [facility] QRS [place] 39 degrees [facility] QRSD Interval 92 ms [facility] QT Interval 384 ms [facility] QTC Interval 423 ms [facility] T Wave [place] 24 degrees [facility] Sinus rhythm Compared to ECG 11/03/2016 11:45:08 T-wave abnormality no longer present Electronically Signed On 07-07-2023 17:12:08 EST by Dakotah Dejesus CV Dakotah Schuster MD - 07/07/2023 IMPRESSION: Sinus rhythm Compared to ECG 11/03/2016 11:45:08 T-wave abnormality no longer present Electronically Signed On 07-07-2023 17:12:08 EST by Dakotah Dejesus [facility] Interpretation and review of laboratory results Abnormal [facility]formed by: [facility], [address] [place], [place] [id number] CLIA ID: [id number] [facility] Radiology Study observation (narrative) [facility] Troponin I.cardiac [Mass/Vol ]on 07-07-2023 Interpretation and review of laboratory results Normal [facility] Patients with high l evels of Biotin oral intake (ie >5 mg/day) may have falsely decreased Troponin levels. [facility] Urinalysis complete panel (U )Ordered By: Gabriella Bonilla on 07-07-2023 Bacteria LM.HPF (Urine sed) [#/Area] Loaded Abnormal Negative /HPF [facility] Bilirubin Ql (U) Negative Negative mg/dL [facility] Clarity (U) Turbid Abnormal Clear [facility] Color (U) Yellow Lt. Yellow [facility] Epithelial cells.squamous LM.HPF (Urine sed) [#/Area] 3-5 [facility] Glucose Ql (U) Normal Normal (<70) mg/dL [facility] Hemoglobin Ql (U) Negative Negative mg/dL [facility] Interpretation and review of laboratory results Abnormal [facility] Ketones (U) [Mass/Vol] Negative Negat golden mg/dL [facility] Leukocyte esterase Test strip Ql (U) Negative Negative Robert/uL [facility] Mucus LM.HPF (Urine sed) [#/Area] Few Negative /LPF [facility] Nitrite Ql (U) Positive Abnormal Negative [facility] Non-Squamous Epithalial Cells, Urine 0-2 Abnormal Negative /HPF [facility] pH (U) 6.0 [pH] 5.0 - 8.0 pH [facility] Protein (U) [Mass/Vol] 10 mg/dL Abnormal Negative [facility] RBC LM.HPF (Urine sed) [#/Area] 0-2 [facility] Specific gravity (U) [Rel density] 1.019 1.005 - 1.030 [facility] Urobilinogen (U) [Mass/Vol] Normal Normal (0-1) mg/dL [facility] WBC LM.HPF (Urine sed) [#/Area] 3-5 [facility] Vital signson 07-07-2023 Heart rate 73 /min bpm [facility] XR Chest Single viewon 07-07 Low lung volumes. No evidence of an acute abnormality. Report Dictated on Electronically Signed By: Jaspal Schwartz MD Electronically Signed Date/Time: 07/07/2023 3:56 PM EST [facility] Patient Name: DIANA PUGH : [...] spine and shoulders. No acute osseous findings. [facility] Jaspal Schwartz M D - 07/07/2023 Patient [...] Electronically Signed Date/Time: 07/07/2023 3:56 PM EST [employer] XR Chest Single viewOrdered By: Jaspal Schwartz on 07-07-2023 [employer] Work Phone: Basophil percentageOrdered B y: Venkat Malin on 06-20-2023 Bilirubin [Mass/Vol] 0.20 mg/dL 0.20-1.00 [facility] Comment on above: For patients on eltr ombopag therapy, use of Dimension [place] TBIL is not recommended. Chloride [Moles/Vol] 110 mmol/L 98-107 [facility] Glucose [Mass/Vol] 97 mg/dL 74-106 [facility] Potassium [Moles/Vol] 3.9 mmol/L 3.5-5.1 [facility] Protein [Mass/Vol] 7.8 g/dL 6.4-8.2 [facility] Sodium [Moles/Vol] 140 mmol/L 136-145 [facility] WBC (Bld) [#/Vol] 6.2 10*3/uL 4.4-11.0 [facility] Blood erythrocytes count (nu mber/volume)Ordered By: Venkat Malin on 06-20-2023 RBC (Bld) [#/Vol] 4.63 10*6/uL 4.2-5.4 [facility] Blood hemoglobin measurement (mass/volume)Ordered By: Venkat Malin on 06-20-2023 Hemoglobin (Bld) [Mass/Vol] 12.9 g/dL 12.0-15.0 [facility] Blood platelet mean volumeOr dered By: Venkat Malin on 06-20-2023 Platelet mean volume (Bld) [Entitic vol] 11.0 fL 6.2-12.0 [facility] Determination of erythrocyte mean corpuscular volume (MCV)Ordered By: Venkat Malin on 06-20-2023 MCV (RBC) [Entitic vol] 90.3 fL 81-99 [facility] Hematocrit Auto (Bld) [Volum e fraction]Ordered By: Venkat Malin on 06-20-2023 Hematocrit (Bld) [Volume fraction] 41.8 % 37-47 [facility] Laboratory - Chemistry and C hemistry - challengeOrdered By: Venkat Malin on 06-20-2023 ALP [Catalytic activity/Vol] 119 U/L 45-117 [facility] ALT [Catalytic activity/Vol] 15 U/L 13-56 [facility] CO2 [Moles/Vol] 28.0 mmol/L 21.0-32.0 [facility] Globulin (S) [Mass/Vol] 5.2 g/dL 2.2-4.2 [facility] Urea nitrogen/Creatinine [Mass ratio] 19.4 mg/mg 10-20 [facility] Laboratory - Hematology and Cell countsOrdered By: Venkat Malin on 06-20-2023 Erythrocyte distribution width (RBC) [Entitic vol] 49.9 fL 35.1-43.9 [facility] Erythrocyte distribution width (RBC) [Ratio] 15.1 % 11.6-14.6 [facility] MCH (RBC) [Entitic mass] 27.9 pg 27.0-32.0 [facility] MCHC Auto (RBC) [Mass/Vol]Or dered By: Venkat Malin on 06-20-2023 MCHC (RBC) [Mass/Vol] 30.9 g/dL 32-36 [facility] No Panel InformationOrdered By: Venkat Malin on 06-20-2023 Estimated GFR (MDRD) Amer 95 mL/min >60 [facility] Comment on above: GFR Calc Estimated GFR (MDRD) Non-Af Amer 79 mL/min >60 [facility] Comment on above: Non- GFR Calc Platelets bldOrdered By: Pet andrew Malin on 06-20-2023 Platelets (Bld) [#/Vol] 321 10*3/uL 150-450 [facility] Serum or plasma albumin kavin urement (mass/volume)Ordered By: Venkat Malin on 06-20-2023 Albumin [Mass/Vol] 2.6 g/dL 3.2-5.0 [facility] Serum or plasma albumin/glob ulin mass ratioOrdered By: Venkat Malin on 06-20-2023 Albumin/Globulin [Mass ratio] 0.5 {ratio} 0.9-2.4 [facility] Serum or plasma calcium kavin urement (mass/volume)Ordered By: Venkat Malin on 06-20-2023 Calcium [Mass/Vol] 9.0 mg/dL 8.5-10.1 [facility] Serum or plasma creatinine m easurement (mass/volume)Ordered By: Venkat Malin on 06-20-2023 Creatinine [Mass/Vol] 0.83 mg/dL 0.55-1.02 [facility] Comment on above: The validity of the calculated GFR & GFRAA in patients over 70 years has not been determined. Clinical correlation is essential. Serum or plasma urea nitroge n measurement (mass/volume)Ordered By: Venkat Malin on 06-20-2023 Urea nitrogen [Mass/Vol] 16 mg/dL 7-18 [facility] Thin prep Papanicolaou smear with manual screeningOrdered By: Venkat Malin on 06-20-2023 Thin prep Papanicolaou smear with manual screening 12 U/L 15-37 [facility] Thin prep Papanicolaou smear with manual screening 2 5-15 [facility] US Breast - left limitedon 1 08-08-2022 Skin lesion likely representing a sebaceous cyst or epidermal cyst. ASSESSMENT: Category 2 Benign RECOMMENDATION: Clinical correlation Left Report Dictated on Electronically Signed By: Kylah Perez MD Electronically Signed Date/Time: 06/08/2023 3:24 PM [facility] [employer] RADIOLOGY SYSTEM Patient Name: DIANA PUGH : [...] cyst. The underlying breast parenchyma is normal. [facility] EM[facility] RADIOLOGY [facility] Kylah Perez MD - 06/08/2023 Patient [...] Electronically Signed Date/Time: 06/08/2023 3:24 PM EST [facility] [employer] Radiology Study observation (narrative) [employer] US Breast - left limitedOrde red By: Kylah Perez on 06-08-2023 [employer] Work Phone: No Panel InformationOrdered By: Venkat Malin on 04-26-2023 Carbamazepine (Tegretol) Level < 0.5 ug/mL 4.0-12.0 [facility] Basophil percentageOrdered B y: Venkat Malin on 02-28-2023 Bilirubin [Mass/Vol] 0.40 mg/dL 0.20-1.00 [facility] Comment on above: For patients on eltr ombopag therapy, use of Dimension [place] TBIL is not recommended. Chloride [Moles/Vol] 111 mmol/L 98-107 [facility] Glucose [Mass/Vol] 88 mg/dL 74-106 [facility] Potassium [Moles/Vol] 3.6 mmol/L 3.5-5.1 [facility] Protein [Mass/Vol] 7.9 g/dL 6.4-8.2 [facility] Sodium [Moles/Vol] 139 mmol/L 136-145 [facility] WBC (Bld) [#/Vol] 7.3 10*3/uL 4.4-11.0 [facility] Blood erythrocytes count (nu mber/volume)Ordered By: Venkat Malin on 02-28-2023 RBC (Bld) [#/Vol] 4.50 10*6/uL 4.2-5.4 [facility] Blood hemoglobin measurement (mass/volume)Ordered By: Venkat Malin on 02-28-2023 Hemoglobin (Bld) [Mass/Vol] 12.8 g/dL 12.0-15.0 [facility] [facility] Blood platelet mean volumeOr dered By: Venkat Malin on 02-28-2023 Platelet mean volume (Bld) [Entitic vol] 11.0 fL 6.2-12.0 [facility] Determination of erythrocyte mean corpuscular volume (MCV)Ordered By: Venkat Malin on 02-28-2023 MCV (RBC) [Entitic vol] 90.0 fL 81-99 [facility] Hematocrit Auto (Bld) [Volum e fraction]Ordered By: Venkat Malin on 02-28-2023 Hematocrit (Bld) [Volume fraction] 40.5 % 37-47 [facility] Laboratory - Chemistry and C hemistry - challengeOrdered By: Venkat Malin on 02-28-2023 ALP [Catalytic activity/Vol] 126 U/L 45-117 [facility] ALT [Catalytic activity/Vol] 20 U/L 13-56 [facility] CO2 [Moles/Vol] 23.0 mmol/L 21.0-32.0 [facility] Globulin (S) [Mass/Vol] 5.2 g/dL 2.2-4.2 [facility] Urea nitrogen/Creatinine [Mass ratio] 17.6 mg/mg 10-20 [facility] Laboratory - Hematology and Cell countsOrdered By: Venkat Malin on 02-28-2023 Erythrocyte distribution width (RBC) [Entitic vol] 50.6 fL 35.1-43.9 [facility] Erythrocyte distribution width (RBC) [Ratio] 15.3 % 11.6-14.6 [facility] MCH (RBC) [Entitic mass] 28.4 pg 27.0-32.0 [facility] MCHC Auto (RBC) [Mass/Vol]Or dered By: Venkat Malin on 02-28-2023 MCHC (RBC) [Mass/Vol] 31.6 g/dL 32-36 [facility] No Panel InformationOrdered By: Venkat Malin on 02-28-2023 Estimated GFR (MDRD) Amer 108 mL/min >60 [facility] Comment on above: GFR Calc Estimated GFR (MDRD) Non-Af Amer 90 mL/min >60 [facility] Comment on above: Non- GFR Calc Miscellaneous Test See comment [facility] Comment on above: TEST RESULTS LIMITSC arbamazepine(Tegretol), S 1.6 Low ug/mL 4.0-12.0 In conjunction with other antiepileptic drugs Therapeutic 4.0 - 8.0 Toxicity 9.0 - 12.0 Carbamazepine alone Therapeutic 8.0 - 12.0 Detection Limit = 2.0 <2.0 indicates None Detected TESTING PERFORMED AT [facility]. ORIGINAL REPORT ON FILE IN LAB CONTAINS ADDITIONAL TEST SITE INFORMATION. Platelets bldOrdered By: Sarah Malin on 02-28-2023 Platelets (Bld) [#/Vol] 344 10*3/uL 150-450 [facility] Serum or plasma albumin kavin urement (mass/volume)Ordered By: Venkat Malin on 02-28-2023 Albumin [Mass/Vol] 2.7 g/dL 3.2-5.0 [facility] Serum or plasma albumin/glob ulin mass ratioOrdered By: Venkat Malin on 02-28-2023 Albumin/Globulin [Mass ratio] 0.5 {ratio} 0.9-2.4 [facility] Serum or plasma calcium kavin urement (mass/volume)Ordered By: Venkat Malin on 02-28-2023 Calcium [Mass/Vol] 8.8 mg/dL 8.5-10.1 [facility] Serum or plasma creatinine m easurement (mass/volume)Ordered By: Venkat Malin on 02-28-2023 Creatinine [Mass/Vol] 0.74 mg/dL 0.55-1.02 [facility] Comment on above: The validity of the calculated GFR & GFRAA in patients over 70 years has not been determined. Clinical correlation is essential. Serum or plasma urea nitroge n measurement (mass/volume)Ordered By: Venkat Malin on 02-28-2023 Urea nitrogen [Mass/Vol] 13 mg/dL 7-18 [facility] Thin prep Papanicolaou smear with manual screeningOrdered By: Venkat Malin on 02-28-2023 Thin prep Papanicolaou smear with manual screening 11 U/L 15-37 [facility] Thin prep Papanicolaou smear with manual screening 5 5-15 [facility] Basophil percentageOrdered B y: Venkat Malin on 12-29-2022 Bilirubin [Mass/Vol] 0.30 mg/dL 0.20-1.00 [facility] Comment on above: For patients on eltr ombopag therapy, use of Dimension [place] TBIL is not recommended. Chloride [Moles/Vol] 110 mmol/L 98-107 [facility] Glucose [Mass/Vol] 93 mg/dL 74-106 [facility] Potassium [Moles/Vol] 3.6 mmol/L 3.5-5.1 [facility] Protein [Mass/Vol] 7.8 g/dL 6.4-8.2 [facility] Sodium [Moles/Vol] 141 mmol/L 136-145 [facility] WBC (Bld) [#/Vol] 6.6 10*3/uL 4.4-11.0 [facility] Blood erythrocytes count (nu mber/volume)Ordered By: Venkat Malin on 12-29-2022 RBC (Bld) [#/Vol] 4.53 10*6/uL 4.2-5.4 [facility] Blood hemoglobin measurement (mass/volume)Ordered By: Venkat Malin on 12-29-2022 Hemoglobin (Bld) [Mass/Vol] 12.5 g/dL 12.0-15.0 [facility] Blood platelet mean volumeOr dered By: Venkat Malin on 12-29-2022 Platelet mean volume (Bld) [Entitic vol] 10.7 fL 6.2-12.0 [facility] Determination of erythrocyte mean corpuscular volume (MCV)Ordered By: Venkat Malin on 12-29-2022 MCV (RBC) [Entitic vol] 90.7 fL 81-99 [facility] Hematocrit Auto (Bld) [Volum e fraction]Ordered By: Venkat Malin on 12-29-2022 Hematocrit (Bld) [Volume fraction] 41.1 % 37-47 [facility] Laboratory - Chemistry and C hemistry - challengeOrdered By: Venkat Malin on 12-29-2022 ALP [Catalytic activity/Vol] 116 U/L 45-117 [facility] ALT [Catalytic activity/Vol] 24 U/L 13-56 [facility] CO2 [Moles/Vol] 25.0 mmol/L 21.0-32.0 [facility] Globulin (S) [Mass/Vol] 5.1 g/dL 2.2-4.2 [facility] Urea nitrogen/Creatinine [Mass ratio] 19.8 mg/mg 10-20 [facility] Laboratory - Hematology and Cell countsOrdered By: Venkat Malin on 12-29-2022 Erythrocyte distribution width (RBC) [Entitic vol] 49.2 fL 35.1-43.9 [facility] Erythrocyte distribution width (RBC) [Ratio] 14.9 % 11.6-14.6 [facility] MCH (RBC) [Entitic mass] 27.6 pg 27.0-32.0 [facility] MCHC Auto (RBC) [Mass/Vol]Or dered By: Venkat Malin on 12-29-2022 MCHC (RBC) [Mass/Vol] 30.4 g/dL 32-36 [facility] No Panel InformationOrdered By: Venkat Malin on 12-29-2022 Estimated GFR (MDRD) Amer 91 mL/min >60 [facility] Comment on above: GFR Calc Estimated GFR (MDRD) Non-Af Amer 75 mL/min >60 [facility] Comment on above: Non- GFR Calc Platelets bldOrdered By: Sarah Malin on 12-29-2022 Platelets (Bld) [#/Vol] 324 10*3/uL 150-450 [facility] Serum or plasma albumin kavin urement (mass/volume)Ordered By: Venkat Malin on 12-29-2022 Albumin [Mass/Vol] 2.7 g/dL 3.2-5.0 [facility] Serum or plasma albumin/glob ulin mass ratioOrdered By: Venkat Malin on 12-29-2022 Albumin/Globulin [Mass ratio] 0.5 {ratio} 0.9-2.4 [facility] Serum or plasma calcium kavin urement (mass/volume)Ordered By: Venkat Malin on 12-29-2022 Calcium [Mass/Vol] 9.0 mg/dL 8.5-10.1 [facility] Serum or plasma creatinine m easurement (mass/volume)Ordered By: Venkat Malin on 12-29-2022 Creatinine [Mass/Vol] 0.86 mg/dL 0.55-1.02 [facility] Comment on above: The validity of the calculated GFR & GFRAA in patients over 70 years has not been determined. Clinical correlation is essential. Serum or plasma urea nitroge n measurement (mass/volume)Ordered By: Venkat Malin on 12-29-2022 Urea nitrogen [Mass/Vol] 17 mg/dL 7-18 [facility] Thin prep Papanicolaou smear with manual screeningOrdered By: Venkat Malin on 12-29-2022 Thin prep Papanicolaou smear with manual screening 14 U/L 15-37 [facility] Thin prep Papanicolaou smear with manual screening 6 5-15 [facility] CNCOon 11-21-2022 CNCO Letter Text Normal [facility] Basophil percentageOrdered B y: Venkat Malin on 08-31-2022 Bilirubin [Mass/Vol] 0.20 mg/dL 0.20-1.00 [facility] Comment on above: For patients on eltr ombopag therapy, use of Dimension [place] TBIL is not recommended. Chloride [Moles/Vol] 110 mmol/L 98-107 [facility] Glucose [Mass/Vol] 93 mg/dL 74-106 [facility] Potassium [Moles/Vol] 4.2 mmol/L 3.5-5.1 [facility] Protein [Mass/Vol] 7.1 g/dL 6.4-8.2 [facility] Sodium [Moles/Vol] 142 mmol/L 136-145 [facility] WBC (Bld) [#/Vol] 6.6 10*3/uL 4.4-11.0 [facility] Blood erythrocytes count (nu mber/volume)Ordered By: Venkat Malin on 08-31-2022 RBC (Bld) [#/Vol] 4.67 10*6/uL 4.2-5.4 [facility] Blood hemoglobin measurement (mass/volume)Ordered By: Venkat Malin on 08-31-2022 Hemoglobin (Bld) [Mass/Vol] 12.6 g/dL 12.0-15.0 [facility] Blood platelet mean volumeOr dered By: Venkat Malin on 08-31-2022 Platelet mean volume (Bld) [Entitic vol] 11.0 fL 6.2-12.0 [facility] Determination of erythrocyte mean corpuscular volume (MCV)Ordered By: Venkat Malin on 08-31-2022 MCV (RBC) [Entitic vol] 87.8 fL 81-99 [facility] Hematocrit Auto (Bld) [Volum e fraction]Ordered By: Venkat Malin on 08-31-2022 Hematocrit (Bld) [Volume fraction] 41.0 % 37-47 [facility] Laboratory - Chemistry and C hemistry - challengeOrdered By: Venkat Malin on 08-31-2022 ALP [Catalytic activity/Vol] 112 U/L 45-117 [facility] ALT [Catalytic activity/Vol] 24 U/L 13-56 [facility] CO2 [Moles/Vol] 24.0 mmol/L 21.0-32.0 [facility] Globulin (S) [Mass/Vol] 4.5 g/dL 2.2-4.2 [facility] Urea nitrogen/Creatinine [Mass ratio] 21.6 mg/mg 10-20 [facility] Laboratory - Hematology and Cell countsOrdered By: Venkat Malin on 08-31-2022 Erythrocyte distribution width (RBC) [Entitic vol] 50.0 fL 35.1-43.9 [facility] Erythrocyte distribution width (RBC) [Ratio] 15.6 % 11.6-14.6 [facility] MCH (RBC) [Entitic mass] 27.0 pg 27.0-32.0 [facility] MCHC Auto (RBC) [Mass/Vol]Or dered By: Venkat Malin on 08-31-2022 MCHC (RBC) [Mass/Vol] 30.7 g/dL 32-36 [facility] No Panel InformationOrdered By: Venkat Malin on 08-31-2022 Estimated GFR (MDRD) Amer 108 mL/min >60 [facility] Comment on above: GFR Calc Estimated GFR (MDRD) Non-Af Amer 89 mL/min >60 [facility] Comment on above: Non- GFR Calc Miscellaneous Test See comment [facility] Comment on above: TEST RESULT LIMITSCa rbamazepine (Tegretol), S <0.5 Low ug/mL 4.0-12.0 In conjunction with other antiepileptic drugs Therapeutic 4.0 - 8.0 Toxicity 9.0 - 12.0 Carbamazepine alone Therapeutic 8.0 - 12.0 Detection Limit = 2.0 <2.0 indicated None Detected Verified by repeat analysis ____ TESTING PERFORMED AT [facility]. ORIGINAL REPORT ON FILE IN LAB CONTAINS ADDITIONAL TEST SITE INFORMATION. Platelets bldOrdered By: Sarah Malin on 08-31-2022 Platelets (Bld) [#/Vol] 354 10*3/uL 150-450 [facility] Serum or plasma albumin kavin urement (mass/volume)Ordered By: Venkat Malin on 08-31-2022 Albumin [Mass/Vol] 2.6 g/dL 3.2-5.0 [facility] Serum or plasma albumin/glob ulin mass ratioOrdered By: Venkat Malin on 08-31-2022 Albumin/Globulin [Mass ratio] 0.6 {ratio} 0.9-2.4 [facility] Serum or plasma calcium kavin urement (mass/volume)Ordered By: Venkat Malin on 08-31-2022 Calcium [Mass/Vol] 8.5 mg/dL 8.5-10.1 [facility] Serum or plasma creatinine m easurement (mass/volume)Ordered By: Venkat Malin on 08-31-2022 Creatinine [Mass/Vol] 0.74 mg/dL 0.55-1.02 [facility] Comment on above: The validity of the calculated GFR & GFRAA in patients over 70 years has not been determined. Clinical correlation is essential. Serum or plasma urea nitroge n measurement (mass/volume)Ordered By: Venkat Malin on 08-31-2022 Urea nitrogen [Mass/Vol] 16 mg/dL 7-18 [facility] Thin prep Papanicolaou smear with manual screeningOrdered By: Venkat Malin on 08-31-2022 Thin prep Papanicolaou smear with manual screening 12 U/L 15-37 [facility] Thin prep Papanicolaou smear with manual screening 8 5-15 [facility] Basophil percentageOrdered B y: Venkat Malin on 06-30-2022 Chloride [Moles/Vol] 107 mmol/L 98-107 [facility] Glucose [Mass/Vol] 100 mg/dL 74-106 [facility] Comment on above: Fasting Glucose resu lt from 100 to 125 mg/dL suggests IMPAIRED HOMEOSTASIS per A.D.A. criteria. Potassium [Moles/Vol] 3.9 mmol/L 3.5-5.1 [facility] Sodium [Moles/Vol] 138 mmol/L 136-145 [facility] WBC (Bld) [#/Vol] 6.4 10*3/uL 4.4-11.0 [facility] Blood erythrocytes count (nu mber/volume)Ordered By: Venkat Malin on 06-30-2022 RBC (Bld) [#/Vol] 4.53 10*6/uL 4.2-5.4 [facility] Blood hemoglobin measurement (mass/volume)Ordered By: Venkat Malin on 06-30-2022 Hemoglobin (Bld) [Mass/Vol] 12.4 g/dL 12.0-15.0 [facility] Blood platelet mean volumeOr dered By: Venkat Malin on 06-30-2022 Platelet mean volume (Bld) [Entitic vol] 10.8 fL 6.2-12.0 [facility] Determination of erythrocyte mean corpuscular volume (MCV)Ordered By: Venkat Malin on 06-30-2022 MCV (RBC) [Entitic vol] 89.4 fL 81-99 [facility] Hematocrit Auto (Bld) [Volum e fraction]Ordered By: Venkat Malin on 06-30-2022 Hematocrit (Bld) [Volume fraction] 40.5 % 37-47 [facility] Laboratory - Chemistry and C hemistry - challengeOrdered By: Venkat Malin on 06-30-2022 CO2 [Moles/Vol] 24.0 mmol/L 21.0-32.0 [facility] Urea nitrogen/Creatinine [Mass ratio] 26.5 mg/mg 10-20 [facility] Laboratory - Hematology and Cell countsOrdered By: Venkat Malin on 06-30-2022 Erythrocyte distribution width (RBC) [Entitic vol] 49.1 fL 35.1-43.9 [facility] Erythrocyte distribution width (RBC) [Ratio] 14.9 % 11.6-14.6 [facility] MCH (RBC) [Entitic mass] 27.4 pg 27.0-32.0 [facility] MCHC Auto (RBC) [Mass/Vol]Or dered By: Venkat Malin on 06-30-2022 MCHC (RBC) [Mass/Vol] 30.6 g/dL 32-36 [facility] No Panel InformationOrdered By: Venkat Malin on 06-30-2022 Estimated GFR (MDRD) Amer 95 mL/min >60 [facility] Comment on above: GFR Calc Estimated GFR (MDRD) Non-Af Amer 79 mL/min >60 [facility] Comment on above: Non- GFR Calc Platelets bldOrdered By: Sarah Malin on 06-30-2022 Platelets (Bld) [#/Vol] 285 10*3/uL 150-450 [facility] Serum or plasma calcium kavin urement (mass/volume)Ordered By: Venkat Malin on 06-30-2022 Calcium [Mass/Vol] 9.1 mg/dL 8.5-10.1 [facility] Serum or plasma creatinine m easurement (mass/volume)Ordered By: Venkat Malin on 06-30-2022 Creatinine [Mass/Vol] 0.83 mg/dL 0.55-1.02 [facility] Comment on above: The validity of the calculated GFR & GFRAA in patients over 70 years has not been determined. Clinical correlation is essential. Serum or plasma urea nitroge n measurement (mass/volume)Ordered By: Venkat Malin on 06-30-2022 Urea nitrogen [Mass/Vol] 22 mg/dL 7-18 [facility] Thin prep Papanicolaou smear with manual screeningOrdered By: Venkat Malin on 06-30-2022 Thin prep Papanicolaou smear with manual screening 7 5-15 [facility] Absolute lymphocyte counton 02-28-2022 Lymphocytes Auto (Unsp spec) [#/Vol] 1.92 10*3/uL 0.83-4.51 [facility] Work Phone: Basophil percentageon 2021 Basophils/100 WBC (Bld) 1.3 % 0-1 [facility] Work Phone: [phone] Bilirubin [Mass/Vol] 0.40 mg/dL 0.20-1.00 [facility] Work Phone: Comment on above: For patients on eltr ombopag therapy, use of Dimension [place] TBIL is not recommended. Chloride [Moles/Vol] 110 mmol/L 98-107 [facility] Work Phone: [phone] Eosinophils/100 WBC (Bld) 2.9 % 0-5 [facility] Work Phone: Glucose [Mass/Vol] 81 mg/dL 74-106 [facility] Work Phone: Neutrophils (Bld) [#/Vol] 2.7 10*3/uL 2.0-7.7 [facility] Work Phone: [phone] Neutrophils/100 WBC (Bld) 52.4 % 47-70 [facility] Work Phone: [phone] Potassium [Moles/Vol] 3.9 mmol/L 3.5-5.1 [facility] Work Phone: [phone] Protein [Mass/Vol] 7.2 g/dL 6.4-8.2 [facility] Work Phone: [phone] Sodium [Moles/Vol] 139 mmol/L 136-145 [facility] Work Phone: [phone] WBC (Bld) [#/Vol] 5.2 10*3/uL 4.4-11.0 [facility] Work Phone: Blood erythrocytes count (nu mber/volume)on 02-28-2022 RBC (Bld) [#/Vol] 5.12 10*6/uL 4.2-5.4 [facility] Work Phone: Blood hemoglobin measurement (mass/volume)on 02-28-2022 Hemoglobin (Bld) [Mass/Vol] 15.5 g/dL 12.0-15.0 [facility] Work Phone: Blood lymphocytes/100 leukoc yteson 02-28-2022 Lymphocytes/100 WBC (Bld) 36.7 % 19-41 [facility] Work Phone: Blood monocytes/100 leukocyt eson 02-28-2022 Monocytes/100 WBC (Bld) 6.3 % 0-10 [facility] Work Phone: Blood platelet mean volumeon 02-28-2022 Platelet mean volume (Bld) [Entitic vol] 12.2 fL 6.2-12.0 [facility] Work Phone: Determination of erythrocyte mean corpuscular volume (MCV)on 02-28-2022 MCV (RBC) [Entitic vol] 92.0 fL 81-99 [facility] Work Phone: Hematocrit Auto (Bld) [Volum e fraction]on 02-28-2022 Hematocrit (Bld) [Volume fraction] 47.1 % 37-47 [facility] Work Phone: Laboratory - Chemistry and C hemistry - challengeon 02-28-2022 ALP [Catalytic activity/Vol] 124 U/L 45-117 [facility] Work Phone: ALT [Catalytic activity/Vol] 49 U/L 13-56 [facility] Work Phone: CO2 [Moles/Vol] 22.0 mmol/L 21.0-32.0 [facility] Work Phone: Globulin (S) [Mass/Vol] 4.2 g/dL 2.2-4.2 [facility] Work Phone: Urea nitrogen/Creatinine [Mass ratio] 26.4 mg/mg 10-20 [facility] Work Phone: Laboratory - Hematology and Cell countson 02-28-2022 Erythrocyte distribution width (RBC) [Entitic vol] 46.6 fL 35.1-43.9 [facility] Work Phone: Erythrocyte distribution width (RBC) [Ratio] 13.7 % 11.6-14.6 [facility] Work Phone: Immature granulocytes/100 WBC (Bld) 0.400 % 0.0-0.9 [facility] Work Phone: Comment on above: IG% - Immature Granu locytes (promyelocytes, myelocytes and metamyelocytes) > 1% indicates that a LEFT SHIFT is Present. MCH (RBC) [Entitic mass] 30.3 pg 27.0-32.0 [facility] Work Phone: Nucleated RBC/100 WBC (Bld) [Ratio] 0 % 0-5 [facility] Work Phone: MCHC Auto (RBC) [Mass/Vol]on 02-28-2022 MCHC (RBC) [Mass/Vol] 32.9 g/dL 32-36 [facility] Work Phone: No Panel Informationon 02-28 Carbamazepine (Tegretol) Level < 0.5 ug/mL 4.0-12.0 [facility] Work Phone: Estimated GFR (MDRD) Amer 136 mL/min >60 [facility] Work Phone: Comment on above: GFR Calc Estimated GFR (MDRD) Non-Af Amer 113 mL/min >60 [facility] Work Phone: Comment on above: Non- GFR Calc Platelets bldon 02-28-2022 Platelets (Bld) [#/Vol] 208 10*3/uL 150-450 [facility] Work Phone: Serum or plasma albumin kavin urement (mass/volume)on 02-28-2022 Albumin [Mass/Vol] 3.0 g/dL 3.2-5.0 [facility] Work Phone: Serum or plasma albumin/glob ulin mass ratioon 02-28-2022 Albumin/Globulin [Mass ratio] 0.7 {ratio} 0.9-2.4 [facility] Work Phone: Serum or plasma calcium kavin urement (mass/volume)on 02-28-2022 Calcium [Mass/Vol] 9.0 mg/dL 8.5-10.1 [facility] Work Phone: Serum or plasma creatinine m easurement (mass/volume)on 02-28-2022 Creatinine [Mass/Vol] 0.61 mg/dL 0.55-1.02 [facility] Work Phone: Comment on above: The validity of the calculated GFR & GFRAA in patients over 70 years has not been determined. Clinical correlation is essential. Serum or plasma urea nitroge n measurement (mass/volume)on 02-28-2022 Urea nitrogen [Mass/Vol] 16 mg/dL 7-18 [facility] Work Phone: Thin prep Papanicolaou smear with manual screeningon 02-28-2022 Thin prep Papanicolaou smear with manual screening 23 U/L 15-37 [facility] Work Phone: Thin prep Papanicolaou smear with manual screening 7 5-15 [facility] Work Phone: Basophil percentageon 2021 Bilirubin [Mass/Vol] 0.30 mg/dL 0.20-1.00 [facility] Work Phone: Comment on above: For patients on eltr ombopag therapy, use of Dimension [place] TBIL is not recommended. Chloride [Moles/Vol] 112 mmol/L 98-107 [facility] Work Phone: Glucose [Mass/Vol] 95 mg/dL 74-106 [facility] Work Phone: Potassium [Moles/Vol] 3.6 mmol/L 3.5-5.1 [facility] Work Phone: Protein [Mass/Vol] 6.6 g/dL 6.4-8.2 [facility] Work Phone: Sodium [Moles/Vol] 143 mmol/L 136-145 [facility] Work Phone: WBC (Bld) [#/Vol] 5.8 10*3/uL 4.4-11.0 [facility] Work Phone: Blood erythrocytes count (nu mber/volume)on 12-29-2021 RBC (Bld) [#/Vol] 4.57 10*6/uL 4.2-5.4 [facility] Work Phone: Blood hemoglobin measurement (mass/volume)on 12-29-2021 Hemoglobin (Bld) [Mass/Vol] 13.5 g/dL 12.0-15.0 [facility] Work Phone: Blood platelet mean volumeon 12-29-2021 Platelet mean volume (Bld) [Entitic vol] 12.6 fL 6.2-12.0 [facility] Work Phone: Determination of erythrocyte mean corpuscular volume (MCV)on 12-29-2021 MCV (RBC) [Entitic vol] 93.7 fL 81-99 [facility] Work Phone: Hematocrit Auto (Bld) [Volum e fraction]on 12-29-2021 Hematocrit (Bld) [Volume fraction] 42.8 % 37-47 [facility] Work Phone: Laboratory - Chemistry and C hemistry - challengeon 12-29-2021 ALP [Catalytic activity/Vol] 106 U/L 45-117 [facility] Work Phone: ALT [Catalytic activity/Vol] 30 U/L 13-56 [facility] Work Phone: CO2 [Moles/Vol] 24.0 mmol/L 21.0-32.0 [facility] Work Phone: Globulin (S) [Mass/Vol] 3.7 g/dL 2.2-4.2 [facility] Work Phone: Urea nitrogen/Creatinine [Mass ratio] 21.0 mg/mg 10-20 [facility] Work Phone: Laboratory - Hematology and Cell countson 12-29-2021 Erythrocyte distribution width (RBC) [Entitic vol] 45.9 fL 35.1-43.9 [facility] Work Phone: Erythrocyte distribution width (RBC) [Ratio] 13.3 % 11.6-14.6 [facility] Work Phone: MCH (RBC) [Entitic mass] 29.5 pg 27.0-32.0 [facility] Work Phone: MCHC Auto (RBC) [Mass/Vol]on 12-29-2021 MCHC (RBC) [Mass/Vol] 31.5 g/dL 32-36 [facility] Work Phone: No Panel Informationon 12-29 Estimated GFR (MDRD) Amer 113 mL/min >60 [facility] Work Phone: Comment on above: GFR Calc Estimated GFR (MDRD) Non-Af Amer 93 mL/min >60 [facility] Work Phone: Comment on above: Non- GFR Calc Platelets bldon 12-29-2021 Platelets (Bld) [#/Vol] 241 10*3/uL 150-450 [facility] Work Phone: Serum or plasma albumin kavin urement (mass/volume)on 12-29-2021 Albumin [Mass/Vol] 2.9 g/dL 3.2-5.0 [facility] Work Phone: Serum or plasma albumin/glob ulin mass ratioon 12-29-2021 Albumin/Globulin [Mass ratio] 0.8 {ratio} 0.9-2.4 [facility] Work Phone: Serum or plasma calcium kavin urement (mass/volume)on 12-29-2021 Calcium [Mass/Vol] 8.5 mg/dL 8.5-10.1 [facility] Work Phone: Serum or plasma creatinine m easurement (mass/volume)on 12-29-2021 Creatinine [Mass/Vol] 0.72 mg/dL 0.55-1.02 [facility] Work Phone: Comment on above: The validity of the calculated GFR & GFRAA in patients over 70 years has not been determined. Clinical correlation is essential. Serum or plasma urea nitroge n measurement (mass/volume)on 12-29-2021 Urea nitrogen [Mass/Vol] 15 mg/dL 7-18 [facility] Work Phone: Thin prep Papanicolaou smear with manual screeningon 12-29-2021 Thin prep Papanicolaou smear with manual screening 16 U/L 15-37 [facility] Work Phone: Thin prep Papanicolaou smear with manual screening 7 5-15 [facility] Work Phone: Absolute lymphocyte counton 09-28-2021 Lymphocytes Auto (Unsp spec) [#/Vol] 2.91 10*3/uL 0.83-4.51 [facility] Work Phone: Basophil percentageon 2021 Basophils/100 WBC (Bld) 0.7 % 0-1 [facility] Work Phone: Bilirubin [Mass/Vol] 0.20 mg/dL 0.20-1.00 [facility] Work Phone: Comment on above: For patients on eltr ombopag therapy, use of Dimension [place] TBIL is not recommended. Chloride [Moles/Vol] 111 mmol/L 98-107 [facility] Work Phone: [phone] Eosinophils/100 WBC (Bld) 2.8 % 0-5 [facility] Work Phone: [phone] Glucose [Mass/Vol] 93 mg/dL 74-106 [facility] Work Phone: Neutrophils (Bld) [#/Vol] 3.5 10*3/uL 2.0-7.7 [facility] Work Phone: [phone] Neutrophils/100 WBC (Bld) 49.0 % 47-70 [facility] Work Phone: [phone] Potassium [Moles/Vol] 3.7 mmol/L 3.5-5.1 [facility] Work Phone: Protein [Mass/Vol] 7.0 g/dL 6.4-8.2 [facility] Work Phone: Sodium [Moles/Vol] 139 mmol/L 136-145 [facility] Work Phone: [phone] WBC (Bld) [#/Vol] 7.1 10*3/uL 4.4-11.0 [facility] Work Phone: Blood erythrocytes count (nu mber/volume)on 09-28-2021 RBC (Bld) [#/Vol] 4.96 10*6/uL 4.2-5.4 [facility] Work Phone: Blood hemoglobin measurement (mass/volume)on 09-28-2021 Hemoglobin (Bld) [Mass/Vol] 15.0 g/dL 12.0-15.0 [facility] Work Phone: Blood lymphocytes/100 leukoc yteson 09-28-2021 Lymphocytes/100 WBC (Bld) 40.9 % 19-41 [facility] Work Phone: Blood monocytes/100 leukocyt eson 09-28-2021 Monocytes/100 WBC (Bld) 6.5 % 0-10 [facility] Work Phone: Blood platelet mean volumeon 09-28-2021 Platelet mean volume (Bld) [Entitic vol] 12.3 fL 6.2-12.0 [facility] Work Phone: Determination of erythrocyte mean corpuscular volume (MCV)on 09-28-2021 MCV (RBC) [Entitic vol] 88.5 fL 81-99 [facility] Work Phone: Hematocrit Auto (Bld) [Volum e fraction]on 09-28-2021 Hematocrit (Bld) [Volume fraction] 43.9 % 37-47 [facility] Work Phone: Laboratory - Chemistry and C hemistry - challengeon 09-28-2021 ALP [Catalytic activity/Vol] 130 U/L 45-117 [facility] Work Phone: ALT [Catalytic activity/Vol] 26 U/L 13-56 [facility] Work Phone: CO2 [Moles/Vol] 23.0 mmol/L 21.0-32.0 [facility] Work Phone: Globulin (S) [Mass/Vol] 4.0 g/dL 2.2-4.2 [facility] Work Phone: Urea nitrogen/Creatinine [Mass ratio] 35.9 mg/mg 10-20 [facility] Work Phone: Laboratory - Hematology and Cell countson 09-28-2021 Erythrocyte distribution width (RBC) [Entitic vol] 43.6 fL 35.1-43.9 [facility] Work Phone: Erythrocyte distribution width (RBC) [Ratio] 13.6 % 11.6-14.6 [facility] Work Phone: Immature granulocytes/100 WBC (Bld) 0.100 % 0.0-0.9 [facility] Work Phone: Comment on above: IG% - Immature Granu locytes (promyelocytes, myelocytes and metamyelocytes) > 1% indicates that a LEFT SHIFT is Present. MCH (RBC) [Entitic mass] 30.2 pg 27.0-32.0 [facility] Work Phone: Nucleated RBC/100 WBC (Bld) [Ratio] 0 % 0-5 [facility] Work Phone: MCHC Auto (RBC) [Mass/Vol]on 09-28-2021 MCHC (RBC) [Mass/Vol] 34.2 g/dL 32-36 [facility] Work Phone: No Panel Informationon 09-28 Carbamazepine (Tegretol) Level < 0.5 ug/mL 4.0-12.0 [facility] Work Phone: Estimated GFR (MDRD) Amer 170 mL/min >60 [facility] Work Phone: Comment on above: GFR Calc Estimated GFR (MDRD) Non-Af Amer 141 mL/min >60 [facility] Work Phone: Comment on above: Non- GFR Calc Platelets bldon 09-28-2021 Platelets (Bld) [#/Vol] 247 10*3/uL 150-450 [facility] Work Phone: Serum or plasma albumin kavin urement (mass/volume)on 09-28-2021 Albumin [Mass/Vol] 3.0 g/dL 3.2-5.0 [facility] Work Phone: Serum or plasma albumin/glob ulin mass ratioon 09-28-2021 Albumin/Globulin [Mass ratio] 0.8 {ratio} 0.9-2.4 [facility] Work Phone: Serum or plasma calcium kavin urement (mass/volume)on 09-28-2021 Calcium [Mass/Vol] 8.6 mg/dL 8.5-10.1 [facility] Work Phone: Serum or plasma creatinine m easurement (mass/volume)on 09-28-2021 Creatinine [Mass/Vol] 0.50 mg/dL 0.55-1.02 [facility] Work Phone: Comment on above: The validity of the calculated GFR & GFRAA in patients over 70 years has not been determined. Clinical correlation is essential. Serum or plasma urea nitroge n measurement (mass/volume)on 09-28-2021 Urea nitrogen [Mass/Vol] 18 mg/dL 7-18 [facility] Work Phone: Thin prep Papanicolaou smear with manual screeningon 09-28-2021 Thin prep Papanicolaou smear with manual screening 11 U/L 15-37 [facility] Work Phone: Thin prep Papanicolaou smear with manual screening 5 5-15 [facility] Work Phone: Basic Metabolic Panelon 12-0 Anion gap [Moles/Vol] 8 mmol/L Normal 3-13 [facility] Comment on above: Performed By: #### B MP3, HEMOG #### [facility] [address], [place] Calcium [Mass/Vol] 9.0 mg/dL Normal 8.4-10.4 [facility] Comment on above: Performed By: #### B MP3, HEMOG #### [facility] [address], [place] CO2 [Moles/Vol] 24 mmol/L Normal 22-30 [facility] Comment on above: Performed By: #### B MP3, HEMOG #### [facility] [address], [place] Creatinine [Mass/Vol] 0.72 mg/dL Normal 0.52-1.25 [facility] Comment on above: Performed By: #### B MP3, HEMOG #### [facility] [address], [place] eGFR OTHER > 90.0 Normal >60 [facility] Comment on above: Result Comment: KDIG [...] Performed By: #### B MP3, HEMOG #### [facility] [address], [place] GFR/1.73 sq M.predicted among blacks MDRD (S/P/Bld) [Vol rate/Area] mL/min/{1.73_m2} Normal >60 [facility] Comment on above: Performed By: #### B MP3, HEMOG #### [facility] [address], [place] Glucose [Mass/Vol] 111 mg/dL High 70-100 [facility] Comment on above: Performed By: #### B MP3, HEMOG #### [facility] [address] [place], [place] Urea nitrogen [Mass/Vol] 18 mg/dL Normal 9-20 [facility] Comment on above: Performed By: #### B MP3, HEMOG #### [facility] [address], [place] Chloride [Moles/Vol] 110 mmol/L High 98-107 [facility] Comment on above: Performed By: #### B MP3, HEMOG #### [address] [address] [place], [place] Potassium [Moles/Vol] 4.1 mmol/L Normal 3.5-5.1 [facility] Comment on above: Performed By: #### Clementina FIGUEROA3, HEMOG #### [address] [place], [place] Sodium [Moles/Vol] 141 mmol/L Normal 135-145 [facility] Comment on above: Performed By: #### B MP3, HEMOG #### [address] [address] [place], [place] Anion gap [Moles/Vol] 8 mmol/L 3 - 13 mmol/L [facility] Calcium [Mass/Vol] 9.0 mg/dL 8.4 - 10. 4 mg/dL [facility] Chloride [Moles/Vol] 110 mmol/L High 98 - 10 7 mmol/L [facility] CO2 [Moles/Vol] 24 mmol/L 22 - 30 mmol/L [facility] Creatinine [Mass/Vol] 0.72 mg/dL 0.52 - 1.25 mg/dL [facility] EGFR IF NonAfrican Taiwanese >90.0 >60 mL/min [facility] Comment on above: KDIGO guidelines pro vide [...] 111 mg/dL High 70 - 100 mg/dL [facility] Interpretation and review of laboratory results Abnormal [facility] Potassium [Moles/Vol] 4.1 mmol/L 3.5 - 5.1 mmol/L [facility] Sodium [Moles/Vol] 141 mmol/L 135 - 145 mmol/L [facility] Urea nitrogen (BldV) [Mass/Vol] 18 mg/dL 9 - 20 mg/dL [facility] Test Performed by [address] [facility] COVID-19on 07-03-2021 Interpretation and review of laboratory results Abnormal [facility] SARS-CoV-2 (COVID-19) RNA ELVIS+probe Ql (Unsp spec) Detected Abnormal Not Detected [facility] Comment on above: DETECTED Expected result: Not Detected _ Method: Real-time, RT-PCR Negative results do not preclude SARS-CoV-2 infection and should not be used as the sole basis for treatment or other patient management decisions. This assay was developed by [employer] and distributed under an Emergency Use Authorization (EUA) granted by the FDA for the qualitative detection of SARS-CoV-2 nucleic acid. Provider and patient fact sheets can be found at https://www.fda.gov/media/566888/download and https://www.fda.gov/media/010079/download. Test Performed by [address] [address] [facility] CR Chest Portableon 07-03-20 21 CR Chest Portable Patient Name: DIANA PUGH Diagnostic Radiology ACCESSION EXAM DATE/TIME PROCEDURE ORDERING PROVIDER [id number] 07/03/2021 16:22 EST CR Chest Portable [id number] CARLSON CPT code 46660 Reason For Exam (CR Chest Portable) fall [...] Transcribed Date and Time: 07/03/2021 4:41 Normal [facility] CR Foot Complete 3+ Views [facility] 07-03-2021 CR Foot Complete 3+ Views Right Patient Name: DIANA CALABRESE Diagnostic Radiology ACCESSION EXAM DATE/TIME PROCEDURE ORDERING PROVIDER [id number] 07/03/2021 16:22 EST CR Foot Complete 3+ [id number] CARLSON Views Right CPT code 68251 Reason For Exam (CR Foot Complete 3+ [...] Transcribed Date and Time: 07/03/2021 5:09 Normal [facility] CR Shoulder 2+ Views Righton 07-03-2021 CR Shoulder 2+ Views Right Patient Name: DIANA CALABRESE Diagnostic Radiology ACCESSION EXAM DATE/TIME PROCEDURE ORDERING PROVIDER [id number] 07/03/2021 16:22 EST CR Shoulder 2+ Views [id number] -RAFAT HANEY Right CPT code 91185 Reason For Exam (CR Shoulder 2+ Views [...] Transcribed Date and Time: 07/03/2021 5:04 [address] [facility] [address] CERVICAL SPINE WO CONTRAS Ton 07-03-2021 Patient Name: DIANA PUGH Computed Tomography ACCESSION EXAM DATE/TIME PROCEDURE ORDERING PROVIDER [id number] 07/03/2021 16:[address] Spine Cervical w/o [id number] -BLAKE PELAEZ Contrast CPT code 17314 Reason For Exam (CT Spine Cervical w/o [...] ider - 07/03/2021 [facility]: [id number] Tomography ACCESSION EXAM DATE/TIME PROCEDURE ORDERING PROVIDER [id number] 07/03/2021 16:[address] Spine Cervical w/o [id number] -BLAKE PELAEZ Contrast CPT code 96919 Reason For Exam (CT Spine Cervical w/o [...] WO CONTRASTon 2020 [facility]: [id number] Computed Tomography ACCESSION EXAM DATE/TIME PROCEDURE ORDERING PROVIDER [id number] 07/03/2021 16:[address] Head or Brain w/o 926086 -JUANJOSE PATTON Contrast CPT code 87565 Reason For Exam (CT Head or Brain [...] Tomography ACCESSION EXAM DATE/TIME PROCEDURE ORDERING PROVIDER [id number] 07/03/2021 16:[address] Head or Brain w/o 936476 -JUANJOSE PATTON Contrast CPT code 01377 Reason For Exam (CT Head or Brain [...] Phone: CT Head or Brain w/o Contras leidy 07-03-2021 CT Head or Brain w/o Contrast Patient Name: DIANA CALABRESE Computed Tomography ACCESSION EXAM DATE/TIME PROCEDURE ORDERING PROVIDER [id number] 07/03/2021 16:[address] Head or Brain w/o [id number] -JUANJOSE PATTON Contrast CPT code 77771 Reason For Exam (CT Head or Brain [...] Transcribed Date and Time: 07/03/2021 4:45 [address] [facility] [address] Spine Cervical w/o Contra ston 07-03-2021 CT Spine Cervical w/o Contrast Patient Name: DIANA CALABRESE [facility]#: [id number] Computed Tomography ACCESSION EXAM DATE/TIME PROCEDURE ORDERING PROVIDER [id number] 07/03/2021 16:[address] Spine Cervical w/o 720952 -BLAKE PELAEZ Contrast CPT code 55166 Reason For Exam (CT Spine Cervical w/o [...] Transcribed Date and Time: 07/03/2021 4:58 Normal [facility] ED [facility] Patient: Diana Calabrese : 1975 Date of Evaluation: 07/03/2021 ED Resident Provider: Rafat Haney MD ED care was supervised by Dr. Patton who independently examined and evaluated the patient. Please see their attestation note for further details. Chief Complaint Chief Complaint Patient presents with ? Fall Per EMS, patient fell out of bed 3ft, from custodial, has laceration to back of head, arrives with C-collar. ? Laceration UPPER [place] I was wearing a surgical mask for the entirety of this encounter. Does this patient come from an ECF, SNF, Rehab, Detention or other Congregate setting: Yes (If yes to above patient needs a Covid-19 test) Diana Calabrese is a 45 y.o. 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 [...] ? Cholecystitis with cholelithiasis SCHEDULED FOR SURGERY TODAT (11/03/2016) ? Constipated ? Dementia (HCC) ? [...] and Family: Not on file ? Attends Church Services: Not on file ? Active Member [...] hours as (more content not included)... Normal [facility] ED Provider Note Emergency Department Encounter [facility] EMERGENCY DEPT Patient: Diana Calabrese : 1975 Date of Evaluation: 07/03/2021 ED Supervising Physician: Juanjose Patton MD I independently examined and evaluated Diana Calabrese. In brief, Diana Calabrese is a 45 y.o. female that presents to the emergency department for evaluation after fall at custodial. Focused exam: Awake and alert, no acute [...] course/MDM: Patient presented after a fall at custodial. Imaging reveals no acute traumatic injury. There [...] are mis-transcribed.) Juanjose Patton MD Acute Care [facility] Juanjose Patton MD 07/19/21 0821 Normal [facility] Hemogramon 07-03-2021 Erythrocyte distribution width (RBC) [Ratio] 13.8 % Normal 11.5-14.5 [facility] Comment on above: Performed By: #### B MP3, HEMOG #### [address] Hematocrit (Bld) [Volume fraction] 45.3 % Normal 35.0-47.0 [facility] Comment on above: Performed By: #### Clementina MP3, HEMOG #### [address] [address] Hemoglobin (Bld) [Mass/Vol] 14.9 g/dL Normal 11.7-16.0 [facility] Comment on above: Performed By: #### B MP3, HEMOG #### [address] [address] MCH (RBC) [Entitic mass] 29.8 pg Normal 26.0-34.0 [facility] Comment on above: Performed By: #### B MP3, HEMOG #### [address] [address] MCHC 32.9 % Normal 32.0-36.0 [facility] Comment on above: Performed By: #### B MP3, HEMOG #### [address] [address] [place], [place] MCV (RBC) [Entitic vol] 90.6 fL Normal 79.0-98.0 [facility] Comment on above: Performed By: #### B MP3, HEMOG #### [facility] [address], [place] Platelet mean volume (Bld) [Entitic vol] 10.5 fL High 7.4-10.4 [facility] Comment on above: Performed By: #### B MP3, HEMOG #### [address], [place] Platelets (Bld) [#/Vol] 220 10*3/uL Normal 140-440 [facility] Comment on above: Performed By: #### B MP3, HEMOG #### [address] [address] [place], [place] RBC (Bld) [#/Vol] 5.00 10*6/uL Normal 3.80-5.20 [facility] Comment on above: Performed By: #### B MP3, HEMOG #### [address] [address] [place], [place] WBC (Bld) [#/Vol] 7.6 10*3/uL Normal 3.6-10.7 [facility] Comment on above: Performed By: #### B MP3, HEMOG #### [address] [address] [place], [place] Hemogram (CBC)on 07-03-2021 Hematocrit (Bld) [Volume fraction] 45.3 % 35.0 - 47.0 % [facility] Hemoglobin.gastrointes tinal spec 1 Ql (Stl) 14.9 g/dL 11.7 - 16.0 g/dL [facility] Interpretation and review of laboratory results [...] - 10.7 10*3/uL [facility] Test Performed by [facility], [address] [place] [id number] [place] [address] LAB [facility] No Panel Informationon 07-03 Radiology Study observation (narrative) [facility] Work Phone: Radiology Study observation (narrative) [facility] Work Phone: [id number] 07-03-2021 SARS-CoV-2 (COVID-19) RNA ELVIS+probe Ql (Unsp spec) SARS-CoV-2 --> Status: F DETECTED Expected result: Not Detected _ Method: Real-time, RT-PCR Negative results do not preclude SARS-CoV-2 infection and should not be used as the sole basis for treatment or other patient management decisions. This assay was developed by [employer] and distributed under an Emergency Use Authorization (EUA) granted by the FDA for the qualitative detection of SARS-CoV-2 nucleic acid. Provider and patient fact sheets can be found at https://www.fda.gov/media/ 60759/download and https://www.fda.gov/media/ 13946/download. Expected result: Not Detected _ Method: Real-time, RT-PCR Negative results do not preclude SARS-CoV-2 infection and should not be used as the sole basis for treatment or other patient management decisions. This assay was developed by [employer] and distributed under an Emergency Use Authorization (EUA) granted by the FDA for the qualitative detection of SARS-CoV-2 nucleic acid. Provider and patient fact sheets can be found at https://www.fda.gov/media/ 34033/download and https://www.fda.gov/media/ 81067/download. Abnormal [facility] Comment on above: Performed By: #### C OVID #### [address] [address] XR CHEST PORTABLEon 07-03-20 Patient Name: DIANA PUGH Diagnostic Radiology ACCESSION EXAM DATE/TIME PROCEDURE ORDERING PROVIDER [id number] 07/03/2021 16:22 EST CR Chest Portable Tico VarnerRAFAT HANEY CPT code 88448 Reason For Exam (CR Chest Portable) fall [...] CHRISTOPHER Transcribed Date and Time: 07/03/2021 4:41 [facility] RAD Result, Unknown Prov ider - 07/03/2021 Patient Name: DIANA CALABRESE Diagnostic Radiology ACCESSION EXAM DATE/TIME PROCEDURE ORDERING PROVIDER [id number] 07/03/2021 16:22 EST CR Chest Portable T[place] RAFAT QIU CPT code 34530 Reason For Exam (CR Chest Portable) fall [...] VIEWS)o n 07-03-2021 Patient Name: DIANA PUGH Diagnostic Radiology ACCESSION EXAM DATE/TIME PROCEDURE ORDERING PROVIDER [id number] 07/03/2021 16:22 EST CR Foot Complete 3+ [id number] -RAFAT HANEY Views Right CPT code 78733 Reason For Exam (CR Foot Complete 3+ [...] WENDELL Transcribed Date and Time: 07/03/2021 5:09 [facility] RAD Zak Hicks MD - 07/03/2021 Patient Name: DIANA CALABRESE Diagnostic Radiology ACCESSION EXAM DATE/TIME PROCEDURE ORDERING PROVIDER [id number] 07/03/2021 16:22 EST CR Foot Complete 3+ [id number] UYEN RAFAT Views Right CPT code 75019 Reason For Exam (CR Foot Complete 3+ [...] WENDELL Transcribed Date and Time: 07/03/2021 5:09 [facility] Work Phone: XR FOOT RIGHT (MIN 3 VIEWS)O rdered By: Zak Hicks on 07-03-2021 [facility] Work Phone: XR Shoulder Right 2 VWon Patient Name: DIANA MENEZES Diagnostic Radiology ACCESSION EXAM DATE/TIME PROCEDURE ORDERING PROVIDER [id number] 07/03/2021 16:22 EST CR Shoulder 2+ Views [id number] GardeniaLYNDON RAFAT Right CPT code 23648 Reason For Exam (CR Shoulder 2+ Views [...] ider - 07/03/2021 [facility]: [id number] Radiology ACCESSION EXAM DATE/TIME PROCEDURE ORDERING PROVIDER [id number] 07/03/2021 16:22 EST CR Shoulder 2+ Views [id number] -RAFAT HANEY Right CPT code 54430 Reason For Exam (CR Shoulder 2+ Views [...] Signature on File ----Signed By: Aayush Duran [email or web address]: 05/21/2018 2:03 PMSigned: 05/21/2018 2:15 PM Reported By: AAYUSH DURAN M.D. Signed By: AAYUSH DURAN M.D. [facility] US ABDOMEN LIMITEDon 05-21- 018 US ABDOMEN LIMITED US ABDOMEN LIMITED, [...] above.---- Electronic Signature on File ----Signed By: Annmarie [email or web address]: 05/21/2018 2:03 PMSigned: 05/21/2018 2:15 PM Reported By: AAYUSH DURAN M.D. Signed By: AAYUSH DURAN M.D. [facility] ANE Katiana 08-23-2017 ANES POST HNO ID: [id number] thor: Desmond Valladarese: AnesthesiologyAuthor Type: AnesthesiologistType: Anesthesia PostOpFiled: 08/23/2017 3:23 [...] Remarks:SIGNATURE: Desmond Marte MD PATIENT NAME: Diana ClarkregardDATE: August 23, 2017 : 3:23 PM PAGER/CONTACT #: [phone] [facility] ANE PREOPon 08-23-2017 ANES PREOP HNO ID: [id number] thor: Desmond Valladarese: AnesthesiologyAuthor Type: AnesthesiologistType: Anesthesia PreOpFiled: 08/23/2017 11:35 [...] August 23, 2017 : 11:30 AM CSN: [id number] [facility] BRIEF OP NOTon 08-23-2017 BRIEF OP NOT HNO ID: [id number] thor: Elver Correiaervice: GynecologyAuthor Type: PhysicianType: Brief Op NoteFiled: 08/23/2017 1:31 PMNote Text:Pre-op dx: menorragiaPost-op dx: sameSurgery: hysteroscopy, DANDC, Chrissy endometrial ablationSurgeon: Elver QuinonesAnesthesia: generalEBL: 0 [facility] HISTORY PHYSICALon 8 HISTORY PHYSICAL HNO ID: [id number] thor: Elver Desouzaice: GynecologyAuthor Type: PhysicianType: HANDPFiled: 08/25/2017 7:27 AMNote Text:[facility]- [facility] and Physical DIANA CALABRESEDOB: 1975 AGE: 41 SEX: FMRN: [id number] ACCTNUM: [id number] [facility]: [facility] LOCATION: [address] PHYSICIAN: Elver Quinones M.D.ADMIT DATE: 08/23/2017PREOPERATIVE DIAGNOSIS: Abnormal uterine bleeding, spastic quadriplegia.HISTORY: The patient is a 41-year-old, white female, who was presented tothe office from a custodial for evaluation and treatment of abnormaluterine bleeding. [...] and C, with Chrissy endometrial ablation.Elver Quinones M.D.OB/GYNPJN:[id number]: 08/23/2017 10:49:41T: 08/23/2017 12:42:17Job #: [id number] [facility] NURSING PROGon 08-23-2017 NURSING PROG HNO ID: [id number] thor: Ann (Rn) CALISTA Griderervice: NursingAuthor Type: Registered NurseType: Nursing Progress NoteFiled: 08/23/2017 12:40 PMNote Text: Nursing Progress NotePatient Name: Diana CalabreseMRN: [id number] Location: [place] [facility] 1230 Per HILARIO Oconnor dictated this morning. Consent with [facility] on it. stated he had discussed with POA, but miswrote on consentusing abbrev instead of words. Unable to reach POA at this time forclarification.This note was completed by: Ann Grider, MEGHNA [facility] OPERATIVE NOon 08-23-2017 OPERATIVE NO HNO ID: [id number] thor: Elver Correiaervice: GynecologyAuthor Type: PhysicianType: Operative ReportFiled: 08/25/2017 7:27 AMNote Text:[facility]- Operative ReportBEMIKAL VILLARREALB: 1975 AGE: 41 SEX: FMRN: [id number] ACCTNUM: [id number] SVC: OBN LOCATION: [address] PHYSICIAN: Elver Quinones M.D.DATE OF PROCEDURE: 08/23/2017SURGEON: Elver Quinones M.D.DIE GRINDER: NONEANESTHESIA:PREOPERATIVE DIAGNOSIS(ES): Abnormal uterine bleeding.POSTOPERATIVE DIAGNOSIS(ES): Abnormal [...] taken recovery room instable satisfactory condition.PROCEDURE:Elver Quinones M.D.OB/GYNPJN:[id number]: 08/23/2017 13:25:16T: 08/23/2017 22:37:56Job #: [id number] Normal [facility] PROGRESSon 08-23-2017 PROGRESS HNO ID: [id number] thor: Elver Correiaervice: GynecologyAuthor Type: PhysicianType: Progress NotesFiled: 08/23/2017 12:45 PMNote Text:Pre-op note:Patient is non-communicative secondary to traumatic brain injury. She isscheduled for hysteroscopy, dilatation and curettage, and Minervaendometrial ablation. Consent inadvertantly had "DANDC" for dilatation andcurettage. Patient's doctor and power of managing attorney understand the procedurebeing performed. Patient received medical clearance from Dr. Waters. [facility] PT EDon 08-23-2017 PT ED HNO ID: [id number] thor: Agnieszka (Rn) CALISTA Meadervice: (none)Author Type: Registered NurseType: Patient EducationFiled: 08/23/2017 3:22 PMNote Text:POST OP LEARNING RESPONSEINSTRUCTION PROVIDED TO: Caregiver and SNF Nurse JessicaMETHOD OF INSTRUCTION: Written instruction - handoutsVerbal instructionPATIENT / FAMILY RESPONSE: Verbalizes understanding of: Post -OperativeInstructionsFOLLO W-UP PLAN: Complete - No need for follow-upSUPPLEMENTAL MATERIAL: NoneREFERRAL (RECOMMENDATION): NoneElectronically Signed By: Agnieszka Mead RN In Department: [facility] PT ED HNO ID: [id number] thor: Ann WaldronRn) CALISTA Griderervice: NursingAuthor Type: [...] Signed By: Ann Grider RN In Department: [facility] SURGICAL PATHOLOGYon 018 SURGICAL PATHOLOGY [facility]: [id number] Physician: Elver Quinones M.D. FIN AL DIAGNOSISEndometrial, curettings - Inactive endometrium with patchy stromalbreakdown.- Fragments of benign smooth muscle. - Benign endocervical tissue. [facility]/dss 08/25/2017 Di Marcum M.D.(Electronic Signature) SPEC IMEN SUBMITTEDA: ENDOMETRIAL, CURETTINGS CLINICAL DATAMENORRHAGIA WITH REGULAR CYCLE, LMP: HCG NEGATIVEHYSTEROSCOPY, D & C CHRISSY ABLATIONGROSS DESCRIPTIONA. Received in formalin on Telfa gauze are multiple raya-red, soft featherysegments of tissue aggregating to 6.5 x 1.7 x 0.2 cm. Totally submitted inthree cassettes.Gross examination performed at [facility], [address] [place] [address] [id number] 08/23/2017 7:39:11 PMPatient ID #: [id number] of Report: 08/25/2017Date of Procedure: 08/23/2017Date of Receipt: 08/23/2017Submitted by: Elver Quinones M.D.Location: MEORDiagnostic interpretation performed at [facility], [address] [place] [address]. Normal [facility] Comment on above: Performed By: #### P ATHS ####[facility] [address] [phone] Serum Beta HCG East/West/Med /Superior/[facility] use ONLYon 08-23-2017 HCG.beta subunit Qn Negative Normal Negative [facility] Comment on above: Result Comment: Fals e positives and false negatives are rare but have been described. Clinical correlation of the findings is recommended. Performed By: #### B ETAMM ####[facility] [address] [place], [place] [id number] HOSPon 08-22-2017 HOSP Patient:Henrik Calabrese N: Height:6' 2"(1.88 m)Weight:237 lb (107.502 kg)Outpatient Medications as of 08/23/17:norethindrone (AYGESTIN) 5 mg tabletbaclofen (LIORESAL) 20 mg tabletBISACODYL RECTALBlack Cohosh 540 mg capclonazePAM (KLONOPIN) 1 mg tabletferrous sulfate 325 mg (65 mg iron) vusuktWucay-6-LVY-EPA-Fish Oil (FISH OIL) 1,000 mg (120 mg-180 [...] for the following basenames: K,HCTProgress Notes ():Nancy Mittal, RN, RN 08/22/2017 4:50 PM SignedPA Nurse Progress NoteHistory AND Physical:PACC Visit Date: N/AOutside HANDP Scanned Date: 07/19/17 office notes outdated.Nurse Becky from [place] will try to send a current HANDPLabs Within Last 6 Months:CBC: Date 08/11/17BMP/CMP: Date 08/11/17 AST 435,ALT 644PT: Date 08/11/17PTT: Date 08/11/17Imaging Within Last 12 Months:N/ACardiac Testing:EKG in last 12 Months: Yes: Date: 08/14/17, Comment: SR non-specific STANDT waveabnormalityLast Menstrual Period:LMP Date: unknownRisk Assessment: Medical Date: 08/15/17 Dr Waters,Stephanie Graham CNPAnesthesia Review:Email sentNarrative:Resident of [place] [phone] signed by guardian and scanned in epicTransportation by Maurice Conway to accompany patientPre-op Considerations:Quadriplegic ,Chart Check:Jules Mittal RNJanuary 2017 4:31 PMInstructions reviewed with nurse PenaPATIENT PREOPERATIVE INSTRUCTIONSNo ref. provider found has scheduled you for your procedure at this surgerycenter:[facility]: [phone] -- [address] [facility] [id number].Please read below carefully for your personalized instructions.Blood [...] surgery.- NO jewelry, body piercings, makeup, nail lao, hairpins or contacts are nara worn the day of surgery.If you develop symptoms such as a fever, cold, or flu, or have other changes [facility] within TWO DAYS of scheduled surgery or the morning of surgery,please contact the surgery center above.Personal Belongings:- Leave ALL valuables and money at home or with family members.For Outpatient Procedures: - YOU MUST HAVE A RESPONSIBLE SCROLL SAW OPERATOR TAKE YOU HOME. A EQUAL OPPORTUNITY REPRESENTATIVE OR CAB DRIVERCANNOT BE MADE A RESPONSIBLE SCROLL SAW OPERATOR.- We recommend that a responsible person stays [...] otherwise documented in primary service progress notes: [facility] contains updated information obtained within 48 hours of Surgery/Procedure.SIGNATURE : Desmond Marte MD PATIENT NAME: Diana CalabreseDATE: August 23, 2017 : 11:30 AM CSN: [id number] Lisa Grider RN, RN 08/23/2017 11:50 AM SignedPRE OP LEARNING ASSESSMENTPROCEDURE/SURGERY : SURGERY: Hysteroscopy, DANDC, Endometrial AblationREADINESS TO LEARNCOGNITIVE ABILITY: Confused at timesMOTIVATION TO LEARN: ReluctantFAMILY SUPPORT: caregiver presentPATIENT LEARNS BEST BY: Verbal InstructionFACTORS AFFECTING LEARNING: Other mentally challengedPHYSICAL LIMITATIONS AFFECTING LEARNING: Limited Mobility and Other Limitationsquadriplegic, traumatic brain injuryElectronically Signed By: Ann Grider RN In Department: [facility]OSPITALCharla Grider RN, RN 08/23/2017 12:40 PM Signed Nursing Progress NotePatient Name: Diana CalabreseMRN: [id number] Location: [facility] 1230 Per HILARIO Oconnor dictated this morning. Consent with initials DANDC [...] dilatation and curettage.Patient's doctor and power of managing attorney understand the procedure being performed.Patient received medical clearance from Dr. Waters. Normal [facility] NURSING PROGon 08-22-2017 NURSING PROG HNO ID: [id number] thor: Nancy (Rn) CALISTA Mittalervice: (none)Author Type: Registered NurseType: Nursing Progress NoteFiled: 08/22/2017 4:50 PMNote Text:PACC Nurse Progress NoteHistory AND Physical:PACC Visit Date: N/AOutsdarcy HANDP Scanned Date: 07/19/17 office notes outdated.Nurse Becky from [place] will try to send a current HANDPLabs Within Last 6 Months:CBC: Date 08/11/17BMP/CMP: Date 08/11/17 AST 435,ALT 644PT: Date 08/11/17PTT: Date 08/11/17Imaging Within Last 12 Months:N/ACardiac Testing:EKG in last 12 Months: Yes: Date: 08/14/17, Comment: SR non-specific STANDTwave abnormalityLast Menstrual Period:LMP Date: unknownRisk Assessment: Medical Date: 08/15/17 Stephanie Chaudhry CNPAnesthesia Review:Email sentNarrative:Resident tierney Pathak [phone] signed by guardian and scanned in epicTransportation by Maurice Conway to accompany patientPre-op Considerations:Quadriplegic ,Chart Check:Jules Mittal RNJanuary 2017 4:31 PMInstructions reviewed with nurse David PREOPERATIVE INSTRUCTIONSNo ref. provider found has scheduled you for your procedure at [facility]: [phone] -- [address] [facility] [id number].Please read below carefully for your personalized instructions.Blood [...] new medications after today's visit, please contact [facility] above.Important Reminders:- If you are prescribed inhalers for breathing, continue using them ANDbring them to the surgery center.- Candy, mints, gum and tobacco products are NOT permitted the morning ofsurgery.- Hearing aids, dentures and glasses may be worn the morning of surgery.- NO jewelry, body piercings, makeup, nail lao, hairpins or contactsare to be worn the day of surgery.If you develop symptoms such as a fever, cold, or flu, or have otherchanges to your health within TWO DAYS of scheduled surgery or the morningof surgery, please contact the surgery center above.Personal Belongings:- Leave ALL valuables and money at home or with family members.For Outpatient Procedures: - YOU MUST HAVE A RESPONSIBLE SCROLL SAW OPERATOR TAKE YOU HOME. A EQUAL OPPORTUNITY REPRESENTATIVE OR CABDRIVER CANNOT BE MADE A RESPONSIBLE SCROLL SAW OPERATOR.- We recommend that a responsible person stays [...] aspossible and regret any inconvenience.Nancy Mittal RN [facility] US Pelvis Completeon 017 US Pelvis Complete Patient Name: DIANA PUGH Ultrasound Exam Date/Time 07/21/2017 15:15:00 EST Exam US Pelvis Complete Ordering Physician ELVER QUINONES Accession Number [id number] CPT4 Codes 81171 () Reason For Exam Abnormal uterine bleeding [...] Report Dictated on Final Dictating Physician: MD ALAN NICHOLAS Signed Date and Time: 07/21/2017 4:31 pm Signed by: MD ALAN NICHOLAS Transcribed Date and Time: 07/21/2017 4:32 Normal [facility] Vital Signs Date Time Vital Sign Value Performing Clinician Faci lity 01-20-2025 07:47-0400 Body temperature 97.81 [degF] Danny Balderas MD Work Phone: [facility] 01-20-2025 07:47-0400 Diastolic blood pressure 63 mm[Hg] Danny Balderas MD Work Phone: [facility] 01-20-2025 07:47-0400 Heart rate 84 /min Danny Balderas MD Work Phone: [facility] 01-20-2025 07:47-0400 Respiratory rate 16 /min Danny Balderas MD Work Phone: [facility] 01-20-2025 07:47-0400 SaO2% (BldA) [Mass fraction] 99 % Danny Balderas MD Work Phone: [facility] 01-20-2025 07:47-0400 Systolic blood pressure 96 mm[Hg] Danny Balderas MD Work Phone: [facility] 01-20-2025 06:00-0400 Body mass index (BMI) [Ratio] 26.47 kg/m2 Danny Balderas MD Work Phone: [facility] 01-20-2025 06:00-0400 Body weight 76.66 kg Danny Balderas MD Work Phone: [facility] [employer] 01-17-2025 11:37-0400 Body height 170.2 cm Danny Balderas MD Work Phone: [facility] [employer] 07-11-2023 16:05-0500 Body temperature 97.11 [degF] Dak[facility] Dejesus [facility] 07-11-2023 16:05-0500 Diastolic blood pressure 58 mm[Hg] Dakotah Dejesus MD Work Phone: [facility] 07-11-2023 16:05-0500 Heart rate 67 /min Dakotah Dejesus MD Work Phone: [facility] 07-11-2023 16:05-0500 Respiratory rate 18 /min Dakotah Dejesus MD Work Phone: [facility] 07-11-2023 16:05-0500 SaO2% (BldA) [Mass fraction] 95 % Dakotah Dejesus MD Work Phone: [facility] 07-11-2023 16:05-0500 Systolic blood pressure 102 mm[Hg] Dakotah Dejesus MD Work Phone: [facility] 07-10-2023 13:27-0500 Body height 172.7 cm Dakotah Dejesus MD Work Phone: [facility] 07-10-2023 13:00-0500 Body mass index (BMI) [Ratio] 30.71 kg/m2 Dakotah Dejesus MD Work Phone: [facility] 07-10-2023 13:00-0500 Body weight 91.63 kg Dakotah Dejesus MD Work Phone: [facility] 05-09-2023 13:57-0400 Body height 188 cm Zi Wrihgt MD Work Phone: [facility] 07-03-2021 19:25-0500 Diastolic blood pressure 59 mm[Hg] Juanjose Patton MD Work Phone: [facility] 07-03-2021 19:25-0500 Systolic blood pressure 91 mm[Hg] Juanjose Patton MD Work Phone: [facility] 07-03-2021 19:21-0500 Heart rate 75 /min Juanjose Patton MD Work Phone: [facility] 07-03-2021 19:21-0500 Respiratory rate 15 /min Juanjose Patton MD Work Phone: [facility] 07-03-2021 19:21-0500 SaO2% (BldA) [Mass fraction] 97 % Juanjose Patton MD Work Phone: [facility] 07-03-2021 15:22-0500 Body temperature 98.01 [degF] Juanjose Patton MD Work Phone: [facility] Encounters Encounter Date Encounter Type Care Provider Facility Start: 02-21-2025 ambulatory Venkat HONEYCUTT Faci lity:[facility] Start: 01-28-2025 ambulatory Venkat HONEYCUTT Faci lity:[facility] Start: 01-20-2025 End: 01-20-2025 ambulatory Diana Paredes RN [facility] Clinical Communication Start: 01-20-2025 End: 01-20-2025 Patient encounter procedure Diana Paredes RN [facility] Communication Start: 01-14-2025 End: 01-20-2025 Evaluation and management of inpatient Danny Balderas MD Work Phone: [facility] Comment on above: Hypotension, unspeci fied hypotension type (Primary Dx); Disorientation; Functional quadriplegia (CMS/HCC) (HCC) Start: 01-13-2025 ambulatory Venkta HONEYCUTT Faci lity:[facility] Start: 12-11-2024 End: 12-11-2024 ambulatory Venkat HONEYCUTT [facility] Work Phone: Start: 12-11-2024 End: 12-11-2024 Departed Referred Venkat Malin -[facility] Start: 12-11-2024 End: 12-11-2024 ambulatory Venkat HONEYCUTT Facility:[facility] Start: 10-24-2024 End: 10-24-2024 ambulatory Venkat HONEYCUTT [facility] Work Phone: Start: 10-24-2024 End: 10-24-2024 Departed Referred Venkat Moser [facility] Start: 10-24-2024 End: 10-24-2024 ambulatory Venkat HONEYCUTT Facility:[facility] Start: 09-03-2024 End: 09-03-2024 ambulatory Venkat HONEYCUTT [facility] Work Phone: Start: 09-03-2024 End: 09-03-2024 Departed Referred Venkat Malin -[facility] Start: 09-03-2024 End: 09-03-2024 ambulatory Venkat HONEYCUTT Facility:[facility] Start: 07-25-2024 End: 07-25-2024 Departed Referred Venkat Malin -[facility] Start: 07-25-2024 End: 07-25-2024 ambulatory Venkat HONEYCUTT Facility:[facility] Start: 06-24-2024 ambulatory Venkat HONEYCUTT Faci lity:[facility] Start: 06-24-2024 Registered [facility] [employer] [facility] Start: 06-05-2024 End: 06-05-2024 ambulatory Venkat HONEYCUTT Facility:[facility] Start: 06-03-2024 End: 06-03-2024 ambulatory Venkat HONEYCUTT Facility:[facility] Start: 05-24-2024 End: 05-24-2024 ambulatory Venkat HONEYCUTT Facility:[facility] Start: 05-17-2024 End: 05-17-2024 ambulatory Venkat HONEYCUTT Facility:[facility] Start: 04-26-2024 End: 04-26-2024 ambulatory Venkat HONEYCUTT Facility:[facility] Start: 03-27-2024 End: 03-27-2024 ambulatory Venkat HONEYCUTT Facility:[facility] Start: 10-30-2023 End: 10-30-2023 ambulatory [facility] Work Phone: Start: 10-30-2023 End: 10-30-2023 [facility] Start: 10-30-2023 [facility] Start: 10-18-2023 End: 10-18-2023 ambulatory [facility] Work Phone: Start: 10-18-2023 End: 10-18-2023 Departed Referred [facility] [employer] Start: 10-09-2023 End: 10-09-2023 ambulatory [facility] Work Phone: Start: 10-09-2023 End: 10-09-2023 Departed Referred [facility] Start: 09-28-2023 End: 09-28-2023 ambulatory [facility] Work Phone: Start: 09-28-2023 End: 09-28-2023 Departed Referred [facility] Start: 09-28-2023 [facility] Start: 09-20-2023 End: 09-20-2023 ambulatory [facility] Work Phone: Start: 09-20-2023 End: 09-20-2023 Departed Referred [facility] Start: 09-19-2023 End: 09-19-2023 ambulatory [facility] Work Phone: Start: 09-19-2023 End: 09-19-2023 [facility] Start: 09-19-2023 [facility] Start: 08-31-2023 End: 08-31-2023 ambulatory [facility] Work Phone: Start: 08-31-2023 End: 08-31-2023 [facility] Start: 07-19-2023 End: 07-19-2023 Departed Referred [facility] [employer] Start: 07-07-2023 End: 07-11-2023 Evaluation and management of inpatient Dakotah Dejesus MD Work Phone: [facility] Cardiac Progressive Care Unit PCU 2E Comment on above: Urinary tract infect ion (Primary Dx) Start: 06-20-2023 End: 06-20-2023 ambulatory [facility] Work Phone: Start: 06-20-2023 End: 06-20-2023 [facility] Start: 06-08-2023 End: 06-08-2023 Subsequent hospital visit by physician Zi Wright MD Work Phone: [facility] Comment on above: Mass of lower inner quadrant of left breast Start: 05-09-2023 End: 05-09-2023 Office outpatient new 45 minutes Zi Wright MD Work Phone: [facility] General Surgery Comment on above: Mass of lower inner quadrant of left breast (Primary Dx) Start: 04-26-2023 End: 04-26-2023 ambulatory [facility] Work Phone: Start: 04-26-2023 End: 04-26-2023 [facility] Start: 02-28-2023 End: 02-28-2023 ambulatory [facility] Work Phone: Start: 02-28-2023 End: 02-28-2023 Departed Referred [facility] [employer] Start: 12-29-2022 End: 12-29-2022 ambulatory [facility] Work Phone: Start: 12-29-2022 End: 12-29-2022 Departed Referred [facility] [employer] Start: 08-31-2022 End: 08-31-2022 ambulatory [facility] Work Phone: Start: 08-31-2022 End: 08-31-2022 Departed Referred [facility] [employer] Start: 06-30-2022 End: 06-30-2022 ambulatory [facility] Work Phone: Start: 06-30-2022 End: 06-30-2022 Departed Referred [facility] [employer] Start: 06-07-2022 Transcribe Orders Venkat paz Work Phone: [facility] Scheduling Comment on above: Pain in unspecified joint (Primary Dx) Start: 02-28-2022 End: 02-28-2022 ambulatory [facility] Work Phone: Start: 02-28-2022 End: 02-28-2022 Departed Referred [facility] Start: 12-29-2021 End: 12-29-2021 Departed Referred [facility] Start: 09-28-2021 End: 09-28-2021 Departed Referred [facility] Start: 07-03-2021 End: 07-03-2021 Emergency department patient visit Juanjose Patton MD Work Phone: [facility] Emergency Dept Comment on above: Injury of head, init ial encounter (Primary Dx); Laceration of scalp, initial encounter Start: 05-21-2018 Patient encounter Maurice Mahoney ity:[facility] Start: 08-23-2017 End: 08-23-2017 Ambulatory [facility] Start: 07-21-2017 Ambulatory [facility] Procedures Date Procedure Procedure Detail Performing [...] shoulder compl ete minimum 2 views Anuj Glover DO Work Phone: Start: 01-14-2025 Urnls dip [...] abdomen & pelvis w/o contrast material Yoko Renee Esterle DO Work Phone: Start: 07-10-2023 Basic metabolic pane l calcium total Yoko M Esterle DO Work Phone: Start: 07-10-2023 Drug screen quantita tive vancomycin Prem Raya MD Work Phone: Start: 07-09-2023 Bacteria identified in Blood by Culture Prem Raya MD Work Phone: Start: 07-09-2023 Basic metabolic pane l calcium total Yoko Renee Esterle DO Work Phone: Start: 07-08-2023 Culture [...] 07-07-2023 End: 07-07-2023 Comprehensive metabolic panel Dakotah Djeesus MD Work Phone: Start: 07-07-2023 Ecg routine [...] for Adults (1 - 1-dose 75+ series) [facility] Start: 2035 RSV Immunization age d 60 or older (1 - 1-dose 60+ series) RSV Immunization aged 60 or older (1 - 1-dose 60+ series) [facility] Start: 07-03-2031 DTaP/Tdap/Td vaccine (2 - Td or Tdap) DTaP/Tdap/Td vaccine (2 - Td or Tdap) [facility] Start: 07-03-2031 DTaP/Tdap/Td Vaccine s (2 - Td or Tdap) DTaP/Tdap/Td Vaccines (2 - Td or Tdap) [facility] Start: 2025 Zoster Vaccines (1 of 2) Zoste r Vaccines (1 of 2) [facility] Start: 03-31-2025 Influenza vaccination Influenz a Vaccine (Season Ended) [facility] Start: 03-31-2024 COVID-19 Vaccine ( season) COVID-19 Vaccine ( season) [facility] Start: 09-19-2023 Measurement of substance [facility] Start: 05-09-2023 End: 07-09-2024 MG Breast - bilateral Diagnostic Bilateral diagnostic mammogram Imaging Routine Mass of lower inner quadrant of left breast Expected: 05/09/2023, Expires: 07/09/2024 [facility] Work Phone: Comment on above: Expected: 05/09/2023 , Expires: 07/09/2024 Start: 05-09-2023 End: 07-09-2024 US Breast - left limited Left breast US limited Imaging Routine Mass of lower inner quadrant of left breast Expected: 05/09/2023, Expires: 07/09/2024 [facility] Comment on above: Expected: 05/09/2023 , Expires: 07/09/2024 Start: 03-31-2023 COVID-19 Vaccine () COVID-19 Vaccine () [facility] Start: 03-31-2023 Influenza vaccination Influenza Vacc ine (#1) [facility] Start: 06-07-2022 End: 06-07-2023 CT Lumbar spine WO contrast CT lumbar spine wo IV contrast Imaging Routine Pain in unspecified joint Expected: 06/07/2022, Expires: 06/07/2023 [facility] Work Phone: Comment on above: Expected: 06/07/2022 , Expires: 06/07/2023 Start: 06-07-2022 End: 06-07-2023 CT Pelvis WO contrast CT pelvis wo IV contrast Imaging Routine Pain in unspecified joint Expected: 06/07/2022, Expires: 06/07/2023 [facility] Comment on above: Expected: 06/07/2022 , Expires: 06/07/2023 Start: 03-31-2022 Influenza vaccination Influenza Vacc ine (#1) [facility] Start: 07-15-2021 COVID-19 Vaccine (4 - Booster for Pfizer series) COVID-19 Vaccine (4 - Booster for Pfizer series) [facility] Start: 07-15-2021 COVID-19 Vaccine (4 - Pfizer series) COVID-19 Vaccine (4 - Pfizer series) [facility] Start: 03-31-2021 Influenza vaccination Flu vaccine (# 1) [facility] Start: 2020 Screening for malign ant neoplasm of colon Colon [facility] Start: 02-19-2020 Lipid panel Lipid screen [facility] Start: 2015 Diabetes screen Diabetes screen [facility] Start: 2015 Screening for malign ant neoplasm of breast Mammogram [facility] Start: 2005 Screening for malign ant neoplasm of cervix [facility] Start: 1996 Screening for malign ant neoplasm of cervix Pap smear [facility] Start: 1994 Hepatitis B Vaccines (1 of 3 - 19+ 3-dose series) Hepatitis B Vaccines (1 of 3 - 19+ 3-dose series) [facility] Start: 1993 Diabetes mellitus screening Diabetes Screening [facility] Start: 1993 Hepatitis C screening Hepatitis C Sc reening [facility] Start: 1990 HIV screening [facility] screen [facility] Start: 1987 COVID-19 Vaccine (1) COVID-19 Vaccin e (1) [facility] Start: 1987 Depression Screening Depression Scre ening [facility] Start: 1976 MMR Vaccines (1 of 1 - Standard series) MMR Vaccines (1 of 1 - Standard series) [facility] Start: 1975 Hepatitis B Vaccines (1 of 3 - 3-dose series) Hepatitis B Vaccines (1 of 3 - 3-dose series) [facility] Start: 1975 Hepatitis C screening Hepatitis C sc reen [facility] Start: 1975 HIV screening HIV Screening [facility] Start: 1975 Lipid panel Lipid Panel [facility] Start: 1975 Screening for malign ant neoplasm of colon [facility] Bacteria identified in Blood by Culture [facility] Work Phone: Immunizations Immunization Date Immunization Notes Care Provider [facility] 07-08-2023 influenza vac subuni t quadrivalent (Flucelvax) injection 0.5 mL Dakotah Dejesus MD Work Phone: [facility] 07-03-2021 tetanus toxoid, redu teodoro diphtheria toxoid, and acellular pertussis vaccine, adsorbed Juanjose Patton MD Work Phone: [facility] 05-04-2021 influenza virus vacc ine, unspecified formulation Venkat Malin Work Phone: [facility] Payers Date Payer Category Payer Self-pay 2017 Medicaid 2016 Medicaid [id number] Unknown [id number] 2.16.8 [id number] Unknown [id number] 2.16.8 [id number] Unknown [id number] 2.16.8 [id number] Unknown [id number] 2.16.8 [id number] Unknown [id number] 2.16.8 [id number] Unknown [id number] 2.16.8 [id number] Unknown [id number] 2.16.8 [id number] Unknown [id number] 2.16.8 [id number] Unknown [id number] 2.16.8 [id number] Unknown [id number] 2.16.8 [id number] Unknown [id number] 2.16.8 [id number] Unknown [id number] 2.16.8 [id number] Unknown [id number] 2.16.8 [id number] Unknown [id number] 2.16.8 [id number] Unknown [id number] 2.16.8 [id number] Social History Date Type Detail Facility Start[facility] 09-06-2016 [facility] Work Phone: Start: 09-06-2016 Tobacco use and exposure Smoke less tobacco non-user [facility] Work Phone: Start: 07-03-2021 End: 01-14-2025 Alcohol intake Current non-drinker of alcohol (finding) [facility] Work Phone: Start: 1975 Sex Assigned At Not on file [facility] Work Phone: Exposure to SARS-CoV -2 (event) Unable to assess [facility] Start: 1975 Sex Assigned At Female [facility] History of tobacco use Current smoker [employer] Start: 06-03-2022 End: 07-08-2023 History of Social function [facility] Start: 06-03-2022 End: 07-08-2023 Alcohol Use Disorder Identification Test - Consumption [AUDIT-C] [facility] How often to you hav e a drink containing alcohol? Never [facility] Average Number of Drinks Not on file Sum [facility] Has the [employer], [employer], or water company threatened to shut off services in your home in past 12Mo No [facility] Are you now , , , , never or living with a partner? Never [facility] Do you feel stress - tense, restless, nervous, or anxious, or unable to sleep at night because your mind is troubled all the time - these days [OSQ] Not at all [facility] (I/We) worried whecece er (my/our) food would run out before (I/we) got money to buy more. Never true [facility] Start: 06-03-2022 History SDOH Alcohol Frequency 1 [facility] Start: 05-31-2022 End: 06-10-2022 Exposure to SARS-CoV-2 (event) Not sure [facility] Tobacco smoking stat [facility] Unknown if ever smoked [facility] Work Phone: Start: 02-28-2022 End: 10-04-2024 Sex Female (finding) [facility] Functional Status Date Assessment Result Facility [facility] Clinical Notes 05-09-2023 to 01-20-2025 Erika Gabriel RN - 01/20/2025 6:53 PM Deion Gabriel RN - 01/20/2025 6:53 PM Deion Gabriel RN - 01/20/2025 4:12 PM EDTJessica Hernandez RN - 01/17/2025 11:02 AM Deion Gabriel RN - 01/20/2025 4:12 PM EDT Note Date & Type Note Facility 01-20-2025 Nurse Note Pt taken to SNF with transportation [facility] 01-20-2025 Nurse Note Pt taken to SNF with transportation Report called to [facility] RN questions answered aware 1700 pickle cutter. Pt IV dcd tip intact. Awaiting transport. [facility] patient medication list to be faxed to [phone] Pt arrived from ED, incontinent of urine and stool, cleaned and changed, external cath applied, pt A&O x 1, hallucinating, unable to do admit questions at this time, pt unable to move any extremities, [facility] bed alarm on for safety. documented in this encounter [facility] 01-20-2025 Telephone encounter Note S: Denise from [facility] spoke with [facility] nurse regarding patient update B: Onset of symptoms/concern today A: Denise calling to updated Dr Malin patient was discharged from [facility] today and admitted to [facility]. R: Message to provider. Reason for Disposition General information question, no triage required and triager able to answer question Protocols used: Information Only Call - No [id number] [facility] 01-20-2025 Miscellaneous Notes S: Denise from [facility] spoke with [facility] nurse regarding patient update B: Onset of symptoms/concern today A: Denise calling to updated Dr Malin patient was discharged from [facility] today and admitted to [facility]. R: Message to provider. Reason for Disposition General information question, no triage required and triager able to answer question Protocols used: Information Only Call - No [id number] documented in this encounter [facility] 01-20-2025 Nurse Note Report called to [facility] RN questions answered aware [address] pickle cutter. Pt IV dcd tip intact. Awaiting transport. [facility] 01-20-2025 Note Formatting of this n ote might be different from the original. Confirmed pickup time of 5:00pm by transport [employer] at phone number [phone]. Location of facility drop off is [facility]. Facility notified via [facility] notified on secure chat. [facility] 01-20-2025 Note Formatting of this n ote might be different from the original. Confirmed pickup time of 5:00pm by transport [facility] at phone number [phone]. Location of facility drop off is [facility]. Facility notified via [facility] [place] notified on secure chat. [facility] 01-20-2025 Miscellaneous Notes Confirmed pickup time of 5:00pm by transport [facility] at phone number [phone]. Location of facility drop off is [facility]. Facility notified via [facility] [place] notified on secure chat. MAR, Med Rec and Updated Clinicals sent to [facility] via [facility] per TCC request. Pt is stable for DC. Attending to place DC orders and MAR. RN to complete ERNESTO. REFERRAL RN tasked to arrange transport for 5:00 today and to sen DC Summary and MAR. SNF updated. Legal Guardian Eric [phone] called and messaged left @DC. Problem: Knowledge [...] Maintained or Improved Outcome: Progressing Flowsheets (Taken 01/18/2025 1938) Skin integrity is maintained or improved: Assess [...] maintained or improved Outcome: Progressing Flowsheets (Taken 01/18/2025 1938) Perineal skin integrity is maintained or improved: [...] or improved Outcome: Progressing Referral placed to [facility] via [facility] per TCC request. Await review and response regarding ability to accept. TCC notified. Pt adm to hosp from [facility] w AMS, Hypotension, dehydration, N/V. BP stable. REFERRAL RN tasked to send return referral to SNF. [...] improved Outcome: Progressing documented in this encounter [facility] 01-20-2025 Note Formatting of this n ote might be different from the original. MAR, Med Rec and Updated Clinicals [facility] request. [facility] 01-20-2025 Note Formatting of this n ote might be different from the original. MAR, Med Rec and Updated Clinicals sent to [facility] via [facility] per TCC request. [facility] 01-20-2025 Hospital course Narrative Hospitalist Discharge [...] ). Of note patient was originally at [place] [facility], EMS had a blood pressure with systolic reading of 80-90 when he was taken there. ICU originally paged at [facility] however no acute issues requiring further intensive [...] signed off 01/15. 01/17 Referral placed to [facility] via [facility] per TCC request. Await [...] Disposition: [facility] . Greater than 31 minutes spent discharging [...] with you. Recommended Follow-up: Venkat Malin [address] [facility] [id number] Follow up Complexity of Follow up: [] Moderate Complexity: follow up within 7-14 calendar days (92178) [x] Severe Complexity: follow up within 7 calendar days (22338) Follow up Testing, Pending results or Referrals [...] Florencio Henning MD Division of Hospitalist Medicine [facility] 01/20/2025, 9:30 PM [1] Past Medical History: [...] Vitamin D deficiency documented in this encounter [facility] 01-20-2025 Note Formatting of this n ote might be different from the original. Pt is stable for DC. Attending to place DC orders and MAR. RN to complete ERNESTO. REFERRAL RN tasked to arrange transport for 5:00 today and to sen DC Summary and MAR. SNF updated. Legal Guardian Eric [phone] called and messaged left @DC. [facility] 01-20-2025 Note Formatting of this n ote might be different from the original. Pt is stable for DC. Attending to place DC orders and MAR. RN to complete ERNESTO. REFERRAL RN tasked to arrange transport for 5:00 today and to sen DC Summary and MAR. SNF updated. Legal Guardian Eric, called and messaged left @DC. [facility] 01-20-2025 Note Hospitalist Discharg e Summary [...] ). Of note patient was originally at [place] [facility], EMS had a blood pressure with systolic reading of 80-90 when he was taken there. ICU originally paged at [facility] however no acute issues requiring further intensive [...] signed off 01/15. 01/17 [facility] per [facility] request. Await review and response regarding [...] swallow eval Question: Diet type Answer: Regular 01/14/252250 Activity: as tolerated Recommended Outpatient Tests: Disposition: Patient discharged in stable condition to [facility] . Greater than 31 minutes spent discharging [...] known as: Mucinex (more content not included)... [facility] 01-20-2025 Note Hospitalist Progress Note 01/20/2025 Subjective: Admit Date: 01/14/2025 PCP: Venkat Malin Room#: [id number] A BRIEF HOSPITAL COURSE: 49-year-old patient with past medical history of Major depressive disorder, anxiety, bipolar disorder, Alzheimer's dementia, hypertension, quadriplegia who presented with concerns of altered mentation and low blood pressure from his nursing facility (of note has not had an okay visit for 2 years, now with court-appointed guardian Eric ). Of note patient was originally at [place] [facility], EMS had a blood pressure with systolic reading of 80-90 when he was taken there. ICU originally paged at [facility] however no acute issues requiring further intensive [...] signed off 01/15. 01/17 [facility] per TCC request. [...] to constipation resolved - currently just awaiting group home facility placement/return -Labs and vitals have remained [...] Moreno Relation: Oth (more content not included)... [facility] 01-20-2025 History of Presen t illness Narrative Hospitalist Progress Note 01/20/2025 Subjective: Admit Date: 01/14/2025 PCP: Venkat Malin Room#: [id number] A BRIEF HOSPITAL COURSE: 49-year-old patient with past medical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 discuss in rounds today. [facility] 07-10-2023 Hospital Discharg e instructions Tatianna Da Silva RN - 07/10/2023 7:36 PM EST Continuity of Care Form Patient Name: Diana Calabrese : 1975 Admit date: 07/07/2023 Discharge date: 07-11-23 Code Status Order: Full Code Advance Directives: Y Admitting Physician: Yoko Waters DO PCP: Venkat Malin Discharging Nurse: Jere COFFMAN Discharging Hospital Unit/Room#: B2-266/B2-266 B Discharging Unit [...] assistance Toileting Total assistance Feeding Minimal assistance Coiler Operator Total assistance Med Delivery no Wound Care [...] Discharging to Facility/ Agency Name: Return to [facility] Address: [address] [place] [address] Fax: Dialysis Facility (if applicable) Name: Address: Dialysis Schedule: Phone: Fax: Medical Director Of Hospice/Thread Marker signature: ICIAN SECTION Prognosis: poor Condition at [...] H&P PHYSICIAN SIGNATURE: documented in this encounter [facility] 07-10-2023 Consult note Associated Order (s): PHARMACY TO DOSE VANCO Vancomycin therapy has been discontinued by Dr Pelayo on 07/10/23. Thank you for the consult. Pharmacy signing off for vancomycin dosing. Mayra Cespedes PharmD Date: 07/10/23 Time: 1:29 PM [facility] 07-10-2023 Consult note Associated Order (s): PHARMACY TO DOSE VANCO Vancomycin therapy has been discontinued by Dr Pelayo on 07/10/23. Thank you for the consult. Pharmacy signing off for vancomycin dosing. 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 year [...] from the original note were not included. [facility] - Infectious Diseases Attending Consult Note Reason for Consult: "UTI" Bacteremia History of Present Illness: Patient is 47 year old admitted to [facility] because of mentation changes. History from patient [...] Yoko M Esterle, DO 40 mg at 12/10/23 0640 polyethylene glycol (PEG) 3350 (Miralax) packet [...] min Stress: No Stress Concern Present (07/08/2023) [place] of [employer]ational Health - Occupational Stress Questionnaire Feeling of Stress : Not at all Social Connections: Unknown (07/08/2023) Social Connection and Isolation Panel [NHANES] Frequency of Communication with Friends and Family: Patient refused Frequency of Social Gatherings with Friends and Family: Patient refused Attends Church Services: Never Active Member of Clubs or [...] MD, MACP, FIDSA documented in this encounter [facility] 07-10-2023 Note Formatting of this n ote might be different from the original. Referral placed to [facility] via [facility] per TCC request. Await review and response regarding ability to accept. TCC notified. [facility] 07-10-2023 Note Formatting of this n ote might be different from the original. Referral placed to Return [facility] via [facility] per TCC request. Await review and response regarding ability to accept. TCC notified. [facility] 07-10-2023 Note Formatting of this n ote might be different from the original. Care Managment Initial Assessment Date: 07/10/2023 Patient Name: Diana Calabrese : 1975 Patient Information Source of Information: Patient Cognition/Language: Impaired, Other (Comment) (Delayed -TBI) Permission given to speak with patient technical sales representative/caregiver as indicated: Yes Confirmation of Payer with patient/family: Yes Payer Name: Blaise Moreno [phone], friend, Erin Mora [phone], friend [place]: No Confirmation of Primary Care Physician: Confirmed PCP Name: Venkat Malin Primary Caregiver: Other (Comment) If assistance needed, confirmed caregiver ready, willing and able to care for patient at discharge: Confirmed with: Living Arrangements Current Residence: Number of Floors Number of Entry Steps: Bed/Bath Levels: Facility: Intermediate/Residental Care Facility Name: [facility] Plan to Return: Yes Lives with: Other (Comment) Support Systems: Comments (Other) Activities of Daily Living Ambulation: Total Care (Patient is bed bound) Bathing/Dressing: Total Care Elimination/Continence/Toileting: Total Care Feeding: Total Care Who Assists with Activities of Daily Living: [facility] Instrumental Activities of Daily Living [...] expects to be discharged to: Return to [facility] Discharge Planning Actions: Continue to follow, Long-Term Facility referral indicated Patient's Choice Rights and [employer] and Collaborative Relationships Disclosed as Indicated for Post-Acute Care: Interdisciplinary Team Engagement: Social Work Referral for: Additional Information: Chart reviewed. Patient admitted to [facility] for treatment of UTI. Blood cultures pending. HX of TBI, Bipolar, Paraplegia. Regular diet. On IV Vancomycin. Met with patient at bedside today. Explained role. Patient informs she is from [facility] and she would like to return there at discharge. REFERRAL RN tasked to create referral to [facility]. Will need to confirm level of care. DC plan: Return to [facility] Fatuma Palma RN [facility] 07-10-2023 Note Formatting of this n ote might be different from the original. Care Managment Initial Assessment Date: 07/10/2023 Patient Name: Diana Calabrese : 1975 Patient Information Source of Information: Patient Cognition/Language: Impaired, Other (Comment) (Delayed -TBI) Permission given to speak with patient technical sales representative/caregiver as indicated: Yes Confirmation of Payer with patient/family: Yes Payer Name: Blaise Moreno [phone], friend, Erin Mora [phone], friend : No Confirmation of Primary Care Physician: Confirmed PCP Name: Venkat Malin Primary Caregiver: Other (Comment) If assistance needed, confirmed caregiver ready, willing and able to care for patient at discharge: Confirmed with: Living Arrangements Current Residence: Number of Floors Number of Entry Steps: Bed/Bath Levels: Facility: Intermediate/Residental Care Facility Name: [facility] Plan to Return: Yes Lives with: Other (Comment) Support Systems: Comments (Other) Activities of Daily Living Ambulation: Total Care (Patient is bed bound) Bathing/Dressing: Total Care Elimination/Continence/Toileting: Total Care Feeding: Total Care Who Assists with Activities of Daily Living: [facility] Instrumental Activities of Daily Living [...] expects to be discharged to: Return to [facility] Discharge Planning Actions: Continue to follow, Long-Term Facility referral indicated Patient's Choice Rights and [employer] and Collaborative Relationships Disclosed as Indicated for Post-Acute Care: Interdisciplinary Team Engagement: Social Work Referral for: Additional Information: Chart reviewed. Patient admitted to [facility] for treatment of UTI. Blood cultures pending. HX of TBI, Bipolar, Paraplegia. Regular diet. On IV Vancomycin. Met with patient at bedside today. Explained role. Patient informs she is from [facility] and she would like to return there at discharge. REFERRAL RN tasked to create referral to [facility]. Will need to confirm level of care. DC plan: Return to [facility] Fatuma Palma RN [facility] 07-09-2023 Consult note Formatting of th is note is different from the original. 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 year [...] for the consult. Will continue to follow. [facility] 07-09-2023 Consult note Associated Order (s): IP CONSULT TO INFECTIOUS DISEASES Images from the original note were not included. [facility] - Infectious Diseases Attending Consult Note Reason for Consult: "UTI" Bacteremia History of Present Illness: Patient is 47 year old admitted to [facility] because of mentation changes. History from patient [...] min Stress: No Stress Concern Present (07/08/2023) [place] [facility] [employer] - Occupational Stress Questionnaire Feeling of Stress : Not at all Social Connections: Unknown (07/08/2023) Social Connection and Isolation Panel [NHANES] Frequency of Communication with Friends and Family: Patient refused Frequency of Social Gatherings with Friends and Family: Patient refused Attends Church Services: Never Active Member of Clubs or [...] in the last 72 hours. 07/07 Blood 2/ GPC, 07/07 molecular CoNS, no mec A [...] accounting for open encounter. Prem Raya MD, [facility], FIDSA [employer] Work Phone: 07-09-2023 Plan of care note [...] medications per MAR, provide a restful environment. [employer] 07-08-2023 History and physical note Department of [...] min Stress: No Stress Concern Present (07/08/2023) [place] [facility] [employer] - Occupational Stress Questionnaire Feeling of Stress : Not at all Social Connections: Unknown (07/08/2023) Social Connection and Isolation Panel [NHANES] Frequency of Communication with Friends and Family: Patient refused Frequency of Social Gatherings with Friends and Family: Patient refused Attends Church Services: Never Active Member of Clubs or [...] results YOKO WATERS DO 07/08/23 9:35 AM [facility] 07-08-2023 History and physical note Department [...] min Stress: No Stress Concern Present (07/08/2023) [place] [facility] [employer] [facility] - Occupational Stress Questionnaire Feeling of Stress : Not at all Social Connections: Unknown (07/08/2023) Social Connection and Isolation Panel [NHANES] Frequency of Communication with Friends and Family: Patient refused Frequency of Social Gatherings with Friends and Family: Patient refused Attends Church Services: Never Active Member of Clubs or [...] 07/08/23 9:35 AM documented in this encounter [facility] 07-08-2023 Plan of care note Problem: [...] Recommendations to address these barriers include . [facility] 07-07-2023 Note Formatting of this n ote [...] time. Please reach out if this changes. [employer] Phone: 07-07-2023 Note Formatting of this n [...] time. Please reach out if this changes. [employer] Phone: 07-07-2023 Emergency department Note Bed: 14 Expected date: Expected time: Means of arrival: Comments: Barbara Read RN 07/07/23 1510 [employer] 07-07-2023 Emergency department Note Emergency Department Encounter [facility] ED Patient: Diana Calabrese : 1975 Date [...] Note: Due to hypotension, ICU consulted, PAYTON King evaluated the patient, MAP currently greater than [...] provider for clarification. Dakotah Dejesus MD Acute [facility] Dakotah Dejesus MD 07/07/232049 Dakotah Dejesus MD 07/07/232131 Arrived via ems from [facility], co AMS per staff, A/0 x3 per EMS, patient A/0 x3, GCS 15, able to speak in slow clear sentences and respond to questions, providing limited pmhx, placed on monitor, continue with plan of care, patient with call light within reach Bed: 14 Expected date: Expected time: Means of arrival: Comments: Barbara Read RN 07/07/23 1510 documented in this encounter [facility] 07-07-2023 Emergency department Triage note Arrived via ems from [facility], co AMS per staff, A/0 x3 per EMS, patient A/0 x3, GCS 15, able to speak in slow clear sentences and respond to questions, providing limited pmhx, placed on monitor, continue with plan of care, patient with call light within reach [facility] 07-07-2023 Physician Emergency department Note Emergency Department Encounter [facility] ED Patient: Diana Calabrese : 1975 Date [...] for clarification. Dakotah Dejesus MD Acute Care [facility] Dakotah Dejesus MD 07/07/232049 Dakotah Dejesus MD 07/07/232131 [facility] 05-09-2023 History of Presen t illness Narrative Images from the original note were not included. General Surgery History and Physical Zi Wright MD, MPH Patient ID: Diana Calabrese [id number] 47 y.o. 1975 CHIEF COMPLAINT: Chief Complaint Patient presents with Abnormal Breast US NUCLEAR PHYSICIST Abnormal Breast US referral from Dr. Malin HPI: Diana Calabrese is a 47 y.o. female who presents with abnormal US of L breast Patient presents today for evaluation of L breast lesion found on exam and screening US. Patient comes from [facility] and is joined by her transporter. [...] anywhere is her chart both paper from [place] or from EMR. Patient states that she [...] kg/m Physical Exam Exam conducted with a building surveyor present. Constitutional: General: She is not in [...] of Surgery AG documented in this encounter [facility] Evaluation note Diagnosis Injury of head, initial encounter- Primary Laceration of scalp, initial encounter [facility] Work Phone: Evaluation noteNo assessment information available [facility] Work Phone: Evaluation note* Diagnosis Mass of lower inner quadrant of left breast- Primary [facility] Diagnosis Mass of lower inner quadrant of left breast [facility] Diagnosis Urinary tract infection- Primary Urinary tract infection, site not specified Urinary tract infection Urinary tract infection, site not specified [facility] Diagnosis Pain in unspecified joint- Primary documented [facility]* Diagnosis Disorientation Other general symptoms Functional quadriplegia (CMS/HCC) (HCC) Functional quadriplegia Hypotension, unspecified hypotension type Hypotension, unspecified hypotension type [facility]No reason for referral information availableWLicking [facility] Work Phone: Summary Purpose Family History No Family History Records FoundNo Family History Records FoundNo Family History Records FoundNo Family History Records FoundNo Family History Records FoundNo Family History Records FoundNo Family History Records Found Advance Directives No Advanced Directives Records FoundDocuments on File Type Date Recorded 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 ACP-Advance Directive ACP-Power of Tape Rules Printing Machine Operator ACP-Power of Tape Rules Printing Machine Operator 10/02/2020 3:31 PM PA IN MGNT- POA Latest Code Status on File Code Status Date Activated Date Inactivated Comments Full Code 11/03/2016 4:21 PM 11/04/2016 7:24 PM Full Code 11/03/2016 10:26 AM 11/03/2016 4:10 PM Documents on File Type Date Recorded 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 Advance Directives and Livin g Will 06/08/2023 2:26 PM Latest Code Status on File Code Status Date Activated Date Inactivated Comments Full Code 07/07/2023 10:13 PM 07/11/2023 9:26 PM Documents on File Type Date Recorded 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 Power of Tape Rules Printing Machine Operator 01/14/2025 10:25 AM Advance Directives and Livin g Will 06/08/2023 2:26 PM Advance Directives and Livin g Will 01/14/2025 10:25 AM Date Activated Date Inactivated Comments 01/14/2025 11:25 PM 01/20/2025 10:18 PM Date Activated Date Inactivated Comments 07/07/2023 10:13 PM 07/11/2023 9:26 PM Healthcare Agents on File Name Relationship Healthcare Agent Relationship Communication Erin Mora Other Health Care Agent Eric Chappell Legal Guardian Health Care Agent Blaise Moreno Other First Alternate Health Care Agent Healthcare Agents on File Name Relationship Healthcare Agent Relationship Communication Erin Moar Other Health Care Agent Eric Misti Legal Guardian Health Care Agent Blaise Moreno Other First Alternate Health Care Agent Chief Complaint and Reason for Visit Chief Complaint LABWORK [facility] LAB WORK Chief Complaint [facility] LABWORK Chief Complaint [facility] LABWORK LABWORK Chief Complaint [facility] LABWORK [facility] LABWORK Chief Complaint LABWORK [facility] LABWORK Chief Complaint [facility] LABWORK [facility] LAB WORK LABWORK Chief Complaint [facility] LABWORK [facility] LAB WORK LABWORK LABWORK Chief Complaint [facility] LABWORK [facility] LAB WORK LABWORK LABWORK LABWORK Chief Complaint [facility] LABWORK [facility] LAB WORK LABWORK LABWORK LABWORK LABWORK Chief Complaint [facility] LABWORK [facility] LAB WORK LABWORK LABWORK LABWORK LABWORK LABWORK Chief Complaint [facility] LAB WOR K LABWORK LABWORK LABWORK LABWORK LABWORK LABWORK Chief Complaint [facility] LAB WOR K LABWORK LABWORK LABWORK LABWORK LABWORK LABWORK LABWORK Chief Complaint Admit Date LABWORK June 24, 2024 5:00am [facility] LAB WORK July 25 4:00am [facility] LAB WORK September 03, 2024 5:00am Chief Complaint Admit Date [facility] LAB WORK July 25 4:00am [facility] LAB WORK September 03, 2024 5:00am [facility] LAB WORK October 24, 2024 4 :00am Chief Complaint Admit Date [facility] LAB WORK September 03, 2024 5:00am [facility] LAB WORK October 24, 2024 4 :00am [facility] December 11, 2024 5:00a m Reason for Referral Specialty Diagnoses / Procedures Referred By Fabian singh Referred To Contact Radiology Diagnoses Pain in unspecified joint Procedures CT pelvis wo IV contrast Venkat Malin [address] [facility] [address] [place] [address] Referral ID Status Reason Start Date Expiration Date V isits Requested Visits Authorized [id number] Authorized 06/07/2022 12/04/2022 1 1 Specialty Diagnoses / Procedures Referred By Contac t Referred To Contact Radiology Diagnoses Pain in unspecified joint Procedures CT lumbar spine wo IV contrast Venkat Malin [address] [place] [address] Referral ID Status Reason Start Date Expiration Date V isits Requested Visits Authorized [id number] Authorized 06/07/2022 12/04/2022 1 1 Additional Source Comments INFORMATION SOURCE (unrecogn ized section and content) DATE CREATED AUTHOR 01/22/2018 [facility] DATE CREATED AUTHOR AUTHOR'S ORGANIZ ATION 01/23/2018 [facility] DATE CREATED AUTHOR AUTHOR'S ORGANIZ ATION 06/20/2018 [facility] [place] DATE CREATED AUTHOR AUTHOR'S ORGANIZ ATION 08/03/2021 [facility] DATE CREATED AUTHOR AUTHOR'S ORGANIZ ATION 11/21/2022 [facility] DATE CREATED AUTHOR AUTHOR'S ORGANIZ ATION 01/26/2025 [facility] DATE CREATED AUTHOR AUTHOR'S ORGANIZ ATION 03/13/2025 [facility] Reason for Visit (unrecogniz ed section and content) Reason Comments Fall Per EMS, patient chris macias out of bed 3ft, from custodial, has laceration to back of head, arrives with C-collar. Laceration Reason Comments Abnormal Breast US NUCLEAR PHYSICIST Abnormal Breast U S referral from Dr. Malin Reason Comments Altered Mental Status Per SNF, A/0 x3 pe r EMS Specialty Diagnoses / Procedures Referred By Contac t Referred To Contact Diagnoses Urinary tract infection Procedures . Yoko Waters M, DO [address] [place] [address] [facility] [address] [place] [address] Referral ID Status Reason Start Date Expiration Date Visits Re quested Visits Authorized [id number] 1 1 Reason Onset Date Comments Other 01/20/2025 Reason Comments Altered Mental Status Specialty Diagnoses / Procedures Referred By Contac t Referred To Contact Diagnoses Hypotension Disorientation Functional quadriplegia (CMS/HCC) (HCC) Hypotension, unspecified hypotension type Procedures ... Daja Vogel MD [address] [place] [address] Phone: tel: fax: [facility] [address] [place] [address] Phone: tel: Referral ID Status Reason Start Date Expiration Date Visits Re quested Visits Authorized [id number] 1 1 Scheduled Active and Recently Administ ered Medications (unrecognized section and content) Medication Order 07/01/2021 07/02/2021 07/03/2021 lidocaine-EPINEPHrine 1 %-[id number] injection 20 mL 20 mL, IntraDERmal, ONCE, On 07/03/21 at 1845, For 1 dose 1845 (Due) Scheduled Medication Order 07/09/2023 07/10/2023 07/11/2023 baclofen (Lioresal) tablet 10 mg 10 mg, Oral, 3 times daily, First dose on Mon07/07/23 at 2215 1004 (Given - Provider: Dena Pelaez, MEGHNA)1530 (Given - Provider: Dena Pelaez RN)2044 (Given - Provider: Azucena Godfrey RN) [...] 2215 1004 (Given - Provider: Dena Pelaez RN)2044 (Given [...] 17 g, Oral, Daily, First dose on Mon07/08/23 at 0900 1005 (Given - Provider: Dena [...] RN) 1015 (Given - Provider: Tatianna Da Silva, RN) tamsulosin (Flomax) 24 hr capsule 0.4 [...] RN) 1013 (Given - Provider: Tatianna Da Silva, MEGHNA) vancomycin IVPB 1250 mg in 250 mL NS (premix) (CANCELED) 1,250 mg, IntraVENous, Administer over 90 Minutes, Every 12 hours, First dose on 07/09/23 at 0930, premix bag, Suspected Indication (Select all that apply): Sepsis of Unknown Etiology 1016 (New Bag - Provider: Dena Pelaez RN)1146 (Stopped - Provider: Dena Pelaez RN)2033 (New Bag - Provider: Azucena Godfrey RN)220 (Stopped - Provider: Azucena Godfrey RN) Continuous Medication Order 07/09/2023 07/10/2023 07/11/2023 sodium chloride 0.9 % infusion 100 mL/hr, IntraVENous, Continuous, Starting on Mon07/07/23 at 2215 1002 (New Bag - Provider: Dena Pelaez RN) 1900 (Stopped - Provider: Azucena Godfrey RN) PRN Medication Order 07/09/2023 07/10/2023 07/11/2023 acetaminophen [...] 1135 (See Alternative - Provider: Tatianna Da Silva RN)1534 (See Alternative - Provider: Tatianna Da Silva, RN) oxyCODONE (Roxicodone) immediate release tablet 5 mg(Linked Group 4) 5 mg, Oral, Every 4 hours PRN, severe pain (7-10), Starting on 07/08/23 at 2316 0640 (Given - Provider: Summer Mora RN)1843 (Given - Provider: Dena Pelaez RN) 0053 (Given - Provider: Azucena Godfrey RN)1234 (Given - Provider: Tatianna Da Silva RN)1709 (Given - Provider: Tatianna Da Silva RN)2252 (Given - Provider: Azucena Godfrey RN) 1135 (Given - Provider: Tatianna Da Silva RN)1534 (Given - Provider: Tatianna Da Silva RN) polyethylene glycol (PEG) 3350 (Miralax) packet [...] Seizures 0932 (Given - Provider: Liborio Mendoza RN)210 (Given - Provider: Diane Laguerre RN) 0928 (Given - Provider: Jessica Hernandez RN)2139 (Given - Provider: Diane Laguerre RN) 0813 (Given - Provider: Erika Gabriel RN)2100 (Canceled Entry - Provider: Automatic Discharge Provider - Comment: Automatically canceled at discontinue of medication order) ferrous sulfate tablet 325 mg 325 mg, Oral, 2 times daily, First dose on Mon01/17/25 at 2000 0525 (Given - Provider: Diane Laguerre RN)1501 [...] times daily, First dose on Mon01/17/25 at 2099, Indications: Epilepsy, unspecified, not intractable, without status epilepticus 0931 (Given - Provider: Liborio Mendoza RN)2105 (Given - Provider: Diane Laguerre, MEGHNA) 09 (Given - Provider: Jessica Hernandez RN)2138 (Given - Provider: Diane Laguerre RN) 0814 [...] Mendoza RN) 0929 (Given - Provider: Jessica Hernandez, MEGHNA) 0813 (Given - Provider: Erika Gabriel RN) heparin injection 5,000 Units 5,000 Units, SubCUTAneous, Every 12 hours scheduled (2 times per day), First dose on Mon01/14/25 at 2255 0935 (Given - Provider: Liborio Mendoza RN)2105 (Given - Provider: Diane Laguerre RN) 09 (Given - Provider: Jessica Hernandez, MEGHNA)2138 (Given - Provider: Diane Laguerre, MEGHNA) 0814 (Given - Provider: Erika Gabriel RN)2100 (Canceled Entry - Provider: Automatic Discharge Provider - Comment: Automatically canceled at discontinue of medication order) lactulose (Chronulac) 10 GM/15ML solution 10 g 10 g (15 mL), Oral, Daily, First dose on Mon01/17/25 at 1999, Indications: Constipation 0935 (Given - Provider: Liborio Mendoza RN) 0928 (Given - Provider: Jessica Hernandez, RN) 0814 (Given - Provider: Erika Gabriel, MEGHNA) magnesium hydroxide (Milk of Magnesia) 400 MG/5ML [...] at 2255 2105 (Given - Provider: Diane Laguerre RN) [...] Indications: Epilepsy 0526 (Given - Provider: Diane Laguerre RN)1500 (Given - Provider: Liborio Mendoza RN) 0537 (Given - Provider: Diane Laguerre, MEGHNA)1515 (Given - Provider: Jessica Hernandez, MEGHNA) 0556 (Given - Provider: Diane Laguerre, MEGHNA)1451 (Given - Provider: Erika Gabriel, MEGHNA) pantoprazole (ProtoNix) EC tablet 40 mg 40 [...] hours. 1402 (See Alternative - Provider: Liborio Mendoza RN) acetaminophen (Tylenol) tablet 650 mg(Linked Group 1) 650 mg, Oral, Every 6 hours PRN, mild pain (1-3), fever, For temp greater than 100.4 F (38 C), Starting on Mon01/14/25 at 2251, Maximum dose of acetaminophen is 4000 mg from all sources in 24 hours. 1402 (Given - Provider: Liborio Mendoza RN) bisacodyl (Dulcolax) EC tablet 5 mg 5 [...] Status Dates Venkat HONEYCUTT Attending Provider Active Crystalizer Tender Relationship Specialty Start Date End Date Yoko Waters, DO [address] [place] [address] PCP - General 11/02/16 Team Status: Inactive Member Role Status Dates Venkat Malin Attending Provider Active Crystalizer Tender Relationship Specialty Start Date End Date Venkat Malin [address] [place] [phone] PCP - General Internal Medicine 06/03/22 Crystalizer Tender Relationship Specialty Start Date End Date Delaneymaura Venkat [address] [place] [address] PCP - General Internal Medicine 06/03/22 Crystalizer Tender Relationship Specialty Start Date End Date Venkat Malin [address] [place] [phone] PCP - General Internal Medicine 06/03/22 Crystalizer Tender Relationship Specialty Start Date End Date Venkat Malin [address] [place] [phone] PCP - General Internal Medicine 06/03/22 Team [...] December 11, 2024 End: December 11, 2024 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 [facility]. provides no warranty or guarantee of the accuracy or completeness of information in this document.
== END | disposition home or self-care (01) ==
LOC: OLS.SANC 05:00
PROVIDERS: Visit Provider Internal Medicine
DX: Z79.899 Other long term (current) drug therapy (principal)
CPT/HCPCS: 36415

== ENCOUNTER → 2025-06-09 05:00 | Outpatient (REF) | payer MEDICAID, SELFPAY ==
--- OUTSIDE RECORDS SUMMARY | 2025-06-09 03:33 | XMS RPT_ITS | CCD ---
Author Organization [facility] Care Team Providers Care Architecture Department Chair Name Role Phone ELVER QUINONES Unavailable Unavailable JONI, ELVER J Unavailable Unavailable Bivalve, Elver Unavailable Unavailable Esterle, Yoko Unavailable Unavailable Esterle, Yoko Unavailable Unavailable Aamir, Maurice Unavailable Unavailable Esterle DO, Yoko M Primary Care Provider Venkat Malin Primary Care Provider Venkat Malin Primary Care Provider Venkat Melo Attending Provider Unavailab le Katsaros OLS, Venkat Referring Provider Unavailab le Katsaros OLS, Venkat Attending Provider Unavailab le Katsaros OLSVenkat Referring Provider Unavailab le Katsaros OLS, Venkat Attending Provider Unavailab le Katsaros OLS, Venkat Referring Provider Unavailab le KATSAROSVENKAT Primary Care Unavailable DAJA VOGEL Admitting Unavailable CHERYL RAMIREZ Consulting Unavailable FLORENCIO HENNING Attending Unavailable Katsaros OLS, Venkat Attending Unavailable Katsaros OLS, Venkat Attending Unavailable Katsaros OLS, Venkat Attending Unavailable Katsaros Venkat H[place]T Referring Unavailable Katsaros OLS, Venkat Attending Unavailable Katsaros OLS, Venkat Attending Unavailable Katsaros OLS, Venkat Referring Unavailable Katsaros OLS, Venkat Attending Unavailable Katsaros OLS, Venkat Attending Unavailable Katsaros OLS, Venkat Referring Unavailable Katsaros OLS, Venkat Attending Unavailable Katsaros OLS, Venkat Attending Unavailable Katsaros OLS, Venkat Attending Unavailable Katsaros OLS, Venkat Attending Unavailable Katsaros OLS, Venkat Referring Unavailable Allergies Allergy Classification Reported Allergen(s) Allergy Type Date of Onset Reaction(s) Facility (10 sources) Latex; Translations: [LATEX] Propensity to adverse reactions to drug (disorder) Rash, Swelling [facility] Other [facility] (10 sources) morphine; Translations: [MORPHINE] Drug Allergy 7 Swelling [facility] Repository (10 sources) pineapple flavor; Translations: [PINEAPPLE] Drug Allergy 7 Swelling [facility] Repository (1 source) avocado allergenic extract [facility]) Alcohol Propensity to adverse reactions to drug 7 Unknown [facility] (8 sources) avocado oil Drug Allergy 1 [facility] [employer] (8 sources) Kiwi fruit Allergy to substance 3 [facility] [employer] NEGATED: Highlighted row has been ruled out! (1 source) Other Propensity to adverse reactions 1 [facility] Work Phone: Medications Current Medications Medication Drug [...] mg/ml ophthalmic solution (3 sources) Plasma Volume Store Worker, Non-Standardize d Chemical Allergen Artificial Tears ophthalmic solution Administer 1 drop into both eyes as needed (Instill 1 drop in both eyes every 4 hours as needed). Active dextromethorphan hydrobromide 20 mg / quiNIDine sulfate 10 mg oral capsule (1 source) Antiarrhythmic, Uncompetitive G-habwzi-Q-aspa rtate Receptor Antagonist, Cytochrome P450 2D6 Inhibitor, [...] pain (1-3). Active 20 ml albumin human, half-way 250 mg/ml injection (4 sources) Human Serum [...] Mon07/07/23 at 2215 take 1 capsule by [facility] three times daily gabapentin (NEURONTIN) 300 [...] mouth. Active 0.5 ml heparin sodium, porcine 93059 unt/ml prefilled syringe (2 sources) Unfractionated Heparin, [...] First dose on Mon01/17/25 at 2000, Indications: Constipation take 10 g by mouth [...] crush, chew, or split. polyethylene glycol 3350 39566 mg powder for oral solution (15 sources) Osmotic Laxative Start: 01-14-2025 End: 01-20-2025 take 17 g by mouth every twenty-four hours as needed for constipation Start: 07-07-2023 End: 07-11-2023 17 g, Oral, Daily, First dos e on 07/08/23 at 0900 microencapsulated potassium chloride 10 meq [...] Daily, Fir st dose on Mon01/17/25 at 2014 Start: 07-08-2023 End: 07-11-2023 take 25 mg by mouth once daily 25 mg, Oral, Daily, Fir st dose on 07/08/23 at 0900 Start: 05-08-2023 End: 07-11-2023 sertraline (Zoloft) 50 MG ta blet 05/08/2023 Active take 1 tablet by arlyn once daily sertraline (ZOLOFT) 100 MG tablet [...] hr capsule take 1 capsule by mo [facility] once daily tamsulosin (FLOMAX) 0.4 MG capsule [...] sources) Anemia, unspecified; Translations: [Anemia, unspecified] Onset: 03-12-2025 Episodic Delirium, dementia, and amnestic and other [...] hypertension] Onset: 11-05-2024 Chronic Hyperplasia of prostate (1 source) Benign prostatic hyperplasia without lower urinary tract symptoms; Translations: [Benign prostatic hyperplasia without lower urinary tract symptoms] Onset: 05-30-2025 Chronic Menstrual disorders (1 source) Excessive and [...] body of scalp, initial encounter] Episodic Other aftercare (2 sources) Other roasterman (current) drug therapy; Translations: [Other roasterman (current) drug therapy] Onset: 07-05-2024 Episodic Other circulatory disease (10 sources) Low [...] Onset: 09-06-2016 09-06-2016 Episodic Other liver diseases (10 sources) Elevated [...] LIVER ENZYMES~ Onset: 05-21-2018 Urinary tract infections (9 sources) Urinary tract infectious disease; Translations: [Urinary tract infection, site not specified] Onset: 07-07-2023 07-07-2023 Episodic Results Test Name Value Interpretation Reference Range Facility L3410.9992on 04-14-2025 [facility] Misc. COMMENT Normal . [facility] Comment on above: Order Comment: 302.1 [id number] OXCARBAZEPINE Result Comment: Test Ordered: [id number] Oxcarbazepine (Trileptal),S Oxcarbazepine Metabolite 11 ug/mL Reference Range: 10-35 This test was developed and its performance characteristics determined by [facility]. It has not been cleared or approved by the Food and Drug Administration. Detection Limit = 1 Performed at: [address] [id number] [employer]vel Log Loader Operator: Martha Estrada MD, Phone: [phone] Performed at: [address] [id number] [employer] Load[employer] Operator: Hans Hagen PhD, Phone: [phone] Performed By: #### L 3410.9992 #### [facility] [address] [place], [place], [id number] Comprehensive Metabolic Prof [facility] 02-21-2025 Albumin [Mass/Vol] 3.4 g/dL Low 3.5-5.0 [facility] Comment on above: Order Comment: 302.1 Performed By: #### L 500.4050, L100.0500 #### [facility] [address] [place], [place], [address] Albumin/Globulin [Mass ratio] 0.8 {ratio} Low 0.9-2.4 [facility] Comment on above: Order Comment: 302.1 Performed By: #### L 500.4050, L100.0500 #### [facility] [address] [place], [address] ALK PHOS 150 U/L High 35-104 [facility] Comment on above: Order Comment: 302.1 Performed By: #### L 500.4050, L100.0500 #### [facility] [address] [place], [address] ALT [Catalytic activity/Vol] 19 U/L Normal <=34 [facility] Comment on above: Order Comment: 302.1 Performed By: #### L 500.4050, L100.0500 #### [facility] [address] [place], [address] AST [Catalytic activity/Vol] 19 U/L Normal <=31 [facility] Comment on above: Order Comment: 302.1 Performed By: #### L 500.4050, L100.0500 #### [facility] [address] [place], [address] Bilirubin [Mass/Vol] 0.25 mg/dL Normal 0.00-1.30 [facility] Comment on above: Order Comment: 302.1 Performed By: #### L 500.4050, L100.0500 #### [facility] [address] [place], [address] BUN/CRE 25.3 RATIO High 10-20 [facility] Comment on above: Order Comment: 302.1 Performed By: #### L 500.4050, L100.0500 #### [facility] [address] [place], [address] Calcium [Mass/Vol] 9.3 mg/dL Normal 7.6-11.0 [facility] Comment on above: Order Comment: 302.1 Performed By: #### L 500.4050, L100.0500 #### [facility] [address] [place], [address] Chloride [Moles/Vol] 105 mmol/L Normal 98-108 [facility] Comment on above: Order Comment: 302.1 Performed By: #### L 500.4050, L100.0500 #### [facility] [address] [place], [address] CO2 [Moles/Vol] 23.0 mmol/L Normal 21.0-32.0 [facility] Comment on above: Order Comment: 302.1 Performed By: #### L 500.4050, L100.0500 #### [facility] [address] [place], [address] Creatinine [Mass/Vol] 0.75 mg/dL Normal 0.70-1.20 [facility] Comment on above: Order Comment: 302.1 Performed By: #### L 500.4050, L100.0500 #### [facility] [address] [place], [address] GAP 12 Normal 5-15 [facility] Comment on above: Order Comment: 302.1 Performed By: #### L 500.4050, L100.0500 #### [facility] [address] [place], [address] GFR/1.73 sq M.predicted among non-blacks MDRD (S/P/Bld) [Vol rate/Area] 97 mL/min/{1.73_m2} Normal >60 [facility] Comment on above: Order Comment: 302.1 Result Comment: mL/m in/1.73m2 CKD-EPI Creatinine Equation (2020) Performed By: #### L 500.4050, L100.0500 #### [facility] [address] [place], [address] Globulin (S) [Mass/Vol] 4.5 g/dL High 2.2-4.2 [facility] Comment on above: Order Comment: 302.1 Performed By: #### L 500.4050, L100.0500 #### [facility] [address] [place], [address] Glucose [Mass/Vol] 86 mg/dL Normal 70-99 [facility] Comment on above: Order Comment: 302.1 Performed By: #### L 500.4050, L100.0500 #### [facility] [address] [place], [address] Potassium [Moles/Vol] 3.7 mmol/L Normal 3.3-5.1 [facility] Comment on above: Order Comment: 302.1 Performed By: #### L 500.4050, L100.0500 #### [facility] [address] [place], [address] Sodium [Moles/Vol] 139 mmol/L Normal 133-145 [facility] Comment on above: Order Comment: 302.1 Performed By: #### L 500.4050, L100.0500 #### [facility] [address] [place], [address] T PROT 7.8 g/dL Normal 5.9-8.4 [facility] Comment on above: Order Comment: 302.1 Performed By: #### L 500.4050, L100.0500 #### [facility] [address] [place], [address] Urea nitrogen [Mass/Vol] 19 mg/dL Normal 4-19 [facility] Comment on above: Order Comment: 302.1 Performed By: #### L 500.4050, L100.0500 #### [facility] [address] [place], [address] CBC-Complete Blood Cnt No Di ffon 01-28-2025 Erythrocyte distribution width (RBC) [Ratio] 14.9 % High 11.6-14.6 [facility] Comment on above: Order Comment: 302.1 Performed By: #### L 500.4050, L100.0500 #### [facility] [address] [place], [address] Hematocrit (Bld) [Volume fraction] 38.1 % Normal 37-47 [facility] Comment on above: Order Comment: 302.1 Performed By: #### L 500.4050, L100.0500 #### [facility] [address] [place], [address] Hemoglobin (Bld) [Mass/Vol] 11.7 g/dL Low 12.0-15.0 [facility] Comment on above: Order Comment: 302.1 Performed By: #### L 500.4050, L100.0500 #### [facility] [address] [place], [address] MCH (RBC) [Entitic mass] 27.6 pg Normal 27.0-32.0 [facility] Comment on above: Order Comment: 302.1 Performed By: #### L 500.4050, L100.0500 #### [facility] [address] [place], [address] MCHC (RBC) [Mass/Vol] 30.7 g/dL Low 32-36 [facility] Comment on above: Order Comment: 302.1 Performed By: #### L 500.4050, L100.0500 #### [facility] [address] [place], [address] MCV (RBC) [Entitic vol] 89.9 fL Normal 81-99 [facility] Comment on above: Order Comment: 302.1 Performed By: #### L 500.4050, L100.0500 #### [facility] [address] [place], [address] Platelet mean volume (Bld) [Entitic vol] 11.1 fL Normal 6.2-12.0 [facility] Comment on above: Order Comment: 302.1 Performed By: #### L 500.4050, L100.0500 #### [facility] [address] [place], [address] Platelets (Bld) [#/Vol] 309 10*3/uL Normal 150-450 [facility] Comment on above: Order Comment: 302.1 Performed By: #### L 500.4050, L100.0500 #### [facility] [address] [place], [address] RBC (Bld) [#/Vol] 4.24 10*6/uL Normal 4.2-5.4 [facility] Comment on above: Order Comment: 302.1 Performed By: #### L 500.4050, L100.0500 #### [facility] [address] [place], [address] RDW SD 49.3 fl High 35.1-43.9 [facility] Comment on above: Order Comment: 302.1 Performed By: #### L 500.4050, L100.0500 #### [facility] [address] [place], [address] WBC (Bld) [#/Vol] 6.8 10*3/uL Normal 4.4-11.0 [facility] Comment on above: Order Comment: 302.1 Performed By: #### L 500.4050, L100.0500 #### [facility] [address] [place], [address] Comprehensive Metabolic Prof [facility] 01-28-2025 Albumin [Mass/Vol] 3.2 g/dL Low 3.5-5.0 [facility] Comment on above: Order Comment: 302.1 Performed By: #### L 500.4050, L100.0500 #### [facility] [address] [place], [address] Albumin/Globulin [Mass ratio] 0.8 {ratio} Low 0.9-2.4 [facility] Comment on above: Order Comment: 302.1 Performed By: #### L 500.4050, L100.0500 #### [facility] [address] [place], [address] ALK PHOS 123 U/L High 35-104 [facility] Comment on above: Order Comment: 302.1 Performed By: #### L 500.4050, L100.0500 #### [facility] [address] [place], [address] ALT [Catalytic activity/Vol] 17 U/L Normal <=34 [facility] Comment on above: Order Comment: 302.1 Performed By: #### L 500.4050, L100.0500 #### [facility] [address] [place], [address] AST [Catalytic activity/Vol] 18 U/L Normal <=31 [facility] Comment on above: Order Comment: 302.1 Performed By: #### L 500.4050, L100.0500 #### [facility] [address] [place], [address] Bilirubin [Mass/Vol] 0.18 mg/dL Normal 0.00-1.30 [facility] Comment on above: Order Comment: 302.1 Performed By: #### L 500.4050, L100.0500 #### [facility] [address] [place], [address] BUN/CRE 27.3 RATIO High 10-20 [facility] Comment on above: Order Comment: 302.1 Performed By: #### L 500.4050, L100.0500 #### [facility] [address] [place], [address] Calcium [Mass/Vol] 9.2 mg/dL Normal 7.6-11.0 [facility] Comment on above: Order Comment: 302.1 Performed By: #### L 500.4050, L100.0500 #### [facility] [address] [place], [address] Chloride [Moles/Vol] 106 mmol/L Normal 98-108 [facility] Comment on above: Order Comment: 302.1 Performed By: #### L 500.4050, L100.0500 #### [facility] [address] [place], [address] CO2 [Moles/Vol] 23.7 mmol/L Normal 21.0-32.0 [facility] Comment on above: Order Comment: 302.1 Performed By: #### L 500.4050, L100.0500 #### [facility] [address] [place], [address] Creatinine [Mass/Vol] 0.79 mg/dL Normal 0.70-1.20 [facility] Comment on above: Order Comment: 302.1 Performed By: #### L 500.4050, L100.0500 #### [facility] [address] [place], [address] GAP 11 Normal 5-15 [facility] Comment on above: Order Comment: 302.1 Performed By: #### L 500.4050, L100.0500 #### [facility] [address] [place], [address] GFR/1.73 sq M.predicted among non-blacks MDRD (S/P/Bld) [Vol rate/Area] 92 mL/min/{1.73_m2} Normal >60 [facility] Comment on above: Order Comment: 302.1 Result Comment: mL/m in/1.73m2 CKD-EPI Creatinine Equation (2020) Performed By: #### L 500.4050, L100.0500 #### [facility] [address] [place], [address] Globulin (S) [Mass/Vol] 3.8 g/dL Normal 2.2-4.2 [facility] Comment on above: Order Comment: 302.1 Performed By: #### L 500.4050, L100.0500 #### [facility] [address] [place], [address] Glucose [Mass/Vol] 91 mg/dL Normal 70-99 [facility] Comment on above: Order Comment: 302.1 Performed By: #### L 500.4050, L100.0500 #### [facility] [address] [place], [address] Potassium [Moles/Vol] 3.6 mmol/L Normal 3.3-5.1 [facility] Comment on above: Order Comment: 302.1 Performed By: #### L 500.4050, L100.0500 #### [facility] [address] [place], [address] Sodium [Moles/Vol] 141 mmol/L Normal 133-145 [facility] Comment on above: Order Comment: 302.1 Performed By: #### L 500.4050, L100.0500 #### [facility] [address] [place], [address] T PROT 7.0 g/dL Normal 5.9-8.4 [facility] Comment on above: Order Comment: 302.1 Performed By: #### L 500.4050, L100.0500 #### [facility] [address] [place], [address] Urea nitrogen [Mass/Vol] 22 mg/dL High 4-19 [facility] Comment on above: Order Comment: 302.1 Performed By: #### L 500.4050, L100.0500 #### [facility] [address] [place], [address] 30on 01-20-2025 30 Problem: Knowledge D eficit Goal: Patient/family/caregiver demonstrates understanding of disease process, treatment plan, medications, and discharge instructions Outcome: Progressing Problem: Potential for Compromised Skin Integrity Goal: Skin Integrity is Maintained or Improved Outcome: Progressing Normal [facility] [id number] 01-20-2025 [id number] Confirmed pickup tariq e of 5:00pm by transport company [employer] at phone number [phone]. Location of facility drop off is [facility]. Facility notified via [facility], TCC notified on secure chat. [facility] [phone] MAR, Med Rec and Upd ated Clinicals sent to [facility] via [employer] per TCC request. [facility] [phone] Pt is stable for DC. Attending to place DC orders and MAR. RN to complete ERNESTO. DOUBLE END SEWER tasked to arrange transport for 5:00 today and to sen DC Summary and MAR. SNF updated. Legal Guardian Eric, called and messaged left @DC. [facility] 36on 01-20-2025 36 S: Denise from [facility] spoke with [facility] nurse regarding patient update B: Onset of symptoms/concern today A: Denise calling to updated Dr Malin patient was discharged from [facility] today and admitted to [facility]. R: Message to provider. Reason for Disposition General information question, no triage required and triager able to answer question Protocols used: Information Only Call - No [id number] Normal [facility] BASIC METABOLIC PANELon 12-30 Anion gap [Moles/Vol] 7 mmol/L Normal 3- [facility] Comment on above: Performed By: #### L AB15 ####Lace Cutter: ERIKA ANGELO ([id number])[facility] ([address] Calcium [Mass/Vol] 9.2 mg/dL Normal 8.4-10.2 [facility] Comment on above: Performed By: #### L AB15 ####Lace Cutter: ERIKA ANGELO ([phone])[facility] ([facility] [place] [address] Chloride [Moles/Vol] 106 mmol/L Normal 98-107 [facility] Comment on above: Performed By: #### L AB15 ####Lace Cutter: ERIKA ANGELO ([phone])[facility] ([facility])[address] [place] [address] CO2 [Moles/Vol] 23 mmol/L Normal 22-29 [facility] Comment on above: Performed By: #### L AB15 ####Lace Cutter: ERIKA ANGELO ([phone])[facility] ([facility])[address] [place] [address] Creatinine [Mass/Vol] 0.73 mg/dL Normal 0.57-1.11 [facility] Comment on above: Performed By: #### L AB15 ####Lace Cutter: ERIKA ANGELO ([phone])[facility] ([facility])[address] [place] [address] GLOMERULAR FILTRATION RATE ML/MIN/1.73 SQ M.PREDICTED >90.0 Normal >60.0 [facility] Comment on above: Result Comment: Calc ulation based on the Chronic Kidney Disease Epidemiology Collaboration (CKD-EPI) equation refit without adjustment for race Performed By: #### L AB15 ####Lace Cutter: ERIKA ANGELO ([phone])[facility])[address] [place] [address] Glucose [Mass/Vol] 98 mg/dL Normal 74-100 [facility] Comment on above: Performed By: #### L AB15 ####Lace Cutter: ERIKA ANGELO ([phone])[facility] ([facility])[address] [place] [address] [place] Potassium [Moles/Vol] 3.9 mmol/L Normal 3.5-5.1 [facility] Comment on above: Result Comment: [facility] potassium values may be up to 0.5 mmol/L lower than serum values. Performed By: #### L AB15 ####Lace Cutter: ERIKA ANGELO ([phone])[facility] ([facility] [place] [address] Sodium [Moles/Vol] 136 mmol/L Normal 136-145 [facility] Comment on above: Performed By: #### L AB15 ####Lace Cutter: ERIKA ANGELO ([phone])[facility] ([facility])[address] [place] [address] Urea nitrogen [Mass/Vol] 22 mg/dL High 8-21 [facility] Comment on above: Performed By: #### L AB15 ####Lace Cutter: ERIKA ANGELO ([phone])[facility] ([facility])[address] [place] [address] Basic metabolic 1998 panelon 01-20-2025 Anion gap [Moles/Vol] 7 mmol/L 3 - 13 mmol/L [facility] Calcium [Mass/Vol] 9.2 mg/dL 8.4 - 10. 2 mg/dL [facility] Chloride [Moles/Vol] 106 mmol/L 98 - 10 7 mmol/L [facility] CO2 [Moles/Vol] 23 mmol/L 22 - 29 mmol/L [facility] Creatinine [Mass/Vol] 0.73 mg/dL 0.57 - 1.11 mg/dL [facility] GFR/1.73 sq M.predicted (S/P/Bld) [Vol rate/Area] - PINF [facility] Comment on above: Calculation based on the Chronic Kidney Disease Epidemiology Collaboration (CKD-EPI) equation refit without adjustment for race Glucose [Mass/Vol] 98 mg/dL 74 - 100 mg/dL [facility] Interpretation and review of laboratory results Abnormal [facility] Potassium [Moles/Vol] 3.9 mmol/L 3.5 - 5.1 mmol/L [facility] Comment on above: Plasma potassium stacey ues may be up to 0.5 mmol/L lower than serum values. Sodium [Moles/Vol] 136 mmol/L 136 - 145 mmol/L [facility] Urea nitrogen [Mass/Vol] 22 mg/dL High 8 - 21 mg/dL [facility] Nursing Noteon 01-20-2025 Nursing Note Pt taken to SNF with transportation Normal [facility] Nursing Note Report called to [facility] emergency department RN questions answered aware 1700 grape picker. Pt IV dcd tip intact. Awaiting transport. Normal [facility] 30on 01-19-2025 30 Problem: Knowledge D [...] Assess Nutritional Intake Outcome: Progressing Normal [facility] Bacteria identified Cx Nom ( Bld)on 01-19-2025 Interpretation and review of laboratory results Normal [facility] Blood Collection Sit e: Left Arm [facility] Interpretation and review of laboratory results Normal [facility] Blood Collection Sit e: Right Femoral Line [facility] Laboratory - Microbiology an d Antimicrobial susceptibilityon 01-19-2025 Bacteria identified Cx Nom (Bld) No growth at 5 days [facility] Bacteria identified Cx Nom (Bld) No growth at 5 days [facility] 30on 01-18-2025 30 Problem: Potential f or [...] device to maintain their dignity Normal [facility] BASIC METABOLIC PANELon 12-30 Anion gap [Moles/Vol] 8 mmol/L Normal 3-13 [facility] Comment on above: Performed By: #### L [id number] ####Lace Cutter: ERIKA ANGELO ([phone])[facility] ([facility])[address] [place] [address] Calcium [Mass/Vol] 9.0 mg/dL Normal 8.4-10.2 [facility] Comment on above: Performed By: #### L AB15 ####Lace Cutter: ERIKA ANGELO ([phone])[facility] ([facility])[address] [place] [address] Chloride [Moles/Vol] 112 mmol/L High 98-107 [facility] Comment on above: Performed By: #### L AB15 ####Lace Cutter: ERIKA ANGELO ([phone])[facility] ([facility])[address] [place] [address] CO2 [Moles/Vol] 23 mmol/L Normal 22-29 [facility] Comment on above: Performed By: #### L AB15 ####Lace Cutter: ERIKA ANGELO ([phone])[facility] ([facility])[address] [place] [address] Creatinine [Mass/Vol] 0.70 mg/dL Normal 0.57-1.11 [facility] Comment on above: Performed By: #### L AB15 ####Lace Cutter: ERIKA ANGELO ([phone])[facility] ([facility])[address] [place] [address] GLOMERULAR FILTRATION RATE ML/MIN/1.73 SQ M.PREDICTED >90.0 Normal >60.0 [facility] Comment on above: Result Comment: Calc ulation based on the Chronic Kidney Disease Epidemiology Collaboration (CKD-EPI) equation refit without adjustment for race Performed By: #### L AB15 ####Lace Cutter: ERIKA ANGELO ([phone])[facility] ([facility])[address] [place] [address] Glucose [Mass/Vol] 95 mg/dL Normal 74-100 [facility] Comment on above: Performed By: #### L AB15 ####Lace Cutter: ERIKA ANGELO ([phone])[facility] ([facility])[address] [place] [address] Potassium [Moles/Vol] 4.8 mmol/L Normal 3.5-5.1 [facility] Comment on above: Result Comment: [facility] potassium values may be up to 0.5 mmol/L lower than serum values. Performed By: #### L AB15 ####Lace Cutter: ERIKA ANGELO ([phone])[facility] ([facility])[address] [place] [address] Sodium [Moles/Vol] 143 mmol/L Normal 136-145 [facility] Comment on above: Performed By: #### L AB15 ####Lace Cutter: ERIKA ANGELO ([phone])[facility] ([facility])[address] [place] [address] Urea nitrogen [Mass/Vol] 16 mg/dL Normal 8-21 [facility] Comment on above: Performed By: #### L AB15 ####Lace Cutter: ERIKA ANGELO ([phone])[facility] ([facility])[address] [place] [address] Basic metabolic 1998 panelOr dered By: Libby Gregory on 01-18-2025 Anion gap [Moles/Vol] 8 mmol/L 3 - 13 mmol/L [facility] Calcium [Mass/Vol] 9 mg/dL 8.4 - 10. 2 mg/dL [facility] Chloride [Moles/Vol] 112 mmol/L High 98 - 10 7 mmol/L [facility] CO2 [Moles/Vol] 23 mmol/L 22 - 29 mmol/L [facility] Creatinine [Mass/Vol] 0.7 mg/dL 0.57 - 1.11 mg/dL [facility] GFR/1.73 sq M.predicted (S/P/Bld) [Vol rate/Area] - PINF [facility] Comment on above: Calculation based on the Chronic Kidney Disease Epidemiology Collaboration (CKD-EPI) equation refit without adjustment for race Glucose [Mass/Vol] 95 mg/dL 74 - 100 mg/dL [facility] Interpretation and review of laboratory results Abnormal [facility] Potassium [Moles/Vol] 4.8 mmol/L 3.5 - 5.1 mmol/L [facility] Comment on above: Plasma potassium stacey ues may be up to 0.5 mmol/L lower than serum values. Sodium [Moles/Vol] 143 mmol/L 136 - 145 mmol/L [facility] Urea nitrogen [Mass/Vol] 16 mg/dL 8 - 21 mg/dL [facility] CBC (HEMOGRAM)on 01-18-2025 Erythrocyte distribution width (RBC) [Ratio] 14.8 % Normal 11.5-15.0 [facility] Comment on above: Performed By: #### L [id number] ####Lace Cutter: ERIKA ANGELO ([phone])[facility])[address] [place] [address] Hematocrit (Bld) [Volume fraction] 37.2 % Normal 35.0-47.0 [facility] Comment on above: Performed By: #### L [id number] ####Lace Cutter: ERIKA ANGELO ([phone])[facility])[address] [place] [address] Hemoglobin (Bld) [Mass/Vol] 11.5 g/dL Low 11.7-16.0 [facility] Comment on above: Performed By: #### L [id number] ####Lace Cutter: ERIKA ANGELO ([phone])[facility])[address] [place] [address] MCH (RBC) [Entitic mass] 27.3 pg Normal 26.0-34.0 [facility] Comment on above: Performed By: #### L [id number] ####Lace Cutter: ERIKA ANGELO ([phone])[facility])[address] [place] [address] MCHC 30.9 % Normal 30.5-36.0 [facility] Comment on above: Performed By: #### L [id number] ####Lace Cutter: ERIKA ANGELO ([phone])[facility])[address] [place] [address] MCV (RBC) [Entitic vol] 88.4 fL Normal 77.0-99.0 [facility] Comment on above: Performed By: #### L [id number] ####Lace Cutter: ERIKA ANGELO ([id number])[facility])[address] [place] [address] Platelet mean volume (Bld) [Entitic vol] 10.3 fL Normal 9.0-12.7 [facility] Comment on above: Performed By: #### L [id number] ####Lace Cutter: ERIKA ANGELO ([phone])[facility] ([facility])[address] [place] [address] Platelets (Bld) [#/Vol] 299 10*3/uL Normal 140-440 [facility] Comment on above: Performed By: #### L [id number] ####Lace Cutter: ERIKA ANGELO ([id number])[facility] ([facility])[address] [place] [address] RBC (Bld) [#/Vol] 4.21 10*6/uL Normal 3.80-5.20 [facility] Comment on above: Performed By: #### L [id number] ####Lace Cutter: ERIKA ANGELO ([phone])[facility] ([facility])[address] [place] [address] WBC (Bld) [#/Vol] 7.1 10*3/uL Normal 3.6-10.7 [facility] Comment on above: Performed By: #### L [id number] ####Lace Cutter: ERIKA ANGELO ([phone])[facility] ([facility])[address] [place] [address] CBC panel Auto (Bld)on 01-18 Erythrocyte distribution width (RBC) [Ratio] 14.8 % 11.5 - 15.0 % [facility] Hematocrit (Bld) [Volume fraction] 37.2 % 35.0 - 47.0 % [facility] Hemoglobin (Bld) [Mass/Vol] 11.5 g/dL Low 11.7 - 16.0 g/dL [facility] Interpretation and review of laboratory results Abnormal [facility] MCH (RBC) [Entitic mass] 27.3 pg 26.0 - 34.0 pg [facility] MCHC (RBC) [Mass/Vol] 30.9 % 30.5 - 36.0 % [facility] MCV (RBC) [Entitic vol] 88.4 fL 77.0 - 99.0 fL [facility] Platelet mean volume (Bld) [Entitic vol] 10.3 fL 9.0 - 12.7 fL [facility] Platelets (Bld) [#/Vol] 299 10*3/uL 140 - 440 10*3/uL [facility] RBC (Bld) [#/Vol] 4.21 10*6/uL 3.80 - 5.20 10*6/uL [facility] WBC (Bld) [#/Vol] 7.1 10*3/uL 3.6 - 10.7 10*3/uL [facility] 30on 01-17-2025 Problem: Knowledge D eficit Goal: Patient/family/caregiver demonstrates [...] and per policy Avoid shearing Normal [facility] 30 Problem: Knowledge D eficit Goal: Patient/family/caregiver demonstrates understanding of disease process, treatment plan, medications, and discharge instructions Outcome: Progressing Problem: Potential for Compromised Skin Integrity Goal: Skin Integrity is Maintained or Improved Outcome: Progressing Goal: Nutritional status is improving Outcome: Progressing Problem: Urinary Incontinence Goal: Perineal skin integrity is maintained or improved Outcome: Progressing Normal [facility] 30 Problem: Knowledge D eficit Goal: Patient/family/caregiver demonstrates understanding of disease process, treatment plan, medications, and discharge instructions Outcome: Progressing Problem: Potential for Compromised Skin Integrity Goal: Skin Integrity is Maintained or Improved Outcome: Progressing Goal: Nutritional status is improving Outcome: Progressing Problem: Urinary Incontinence Goal: Perineal skin integrity is maintained or improved Outcome: Progressing Normal [facility] CBC W Auto Differential pane l (Bld)on 01-17-2025 Basophils (Bld) [#/Vol] 0 10*3/uL 0.0 - 0.2 10*3/uL [facility] Basophils/100 WBC (Bld) 0.5 % 0.0 - 2.0 % [facility] Eosinophils (Bld) [#/Vol] 0.1 10*3/uL 0.0 - 0.5 10*3/uL [facility] Eosinophils/100 WBC (Bld) 1.3 % 0.0 - 6.0 % [facility] Erythrocyte distribution width (RBC) [Ratio] 14.6 % 11.5 - 15.0 % [facility] Hematocrit (Bld) [Volume fraction] 40.1 % 35.0 - 47.0 % [facility] Hemoglobin (Bld) [Mass/Vol] 12.4 g/dL 11.7 - 16.0 g/dL [facility] Immature granulocytes (Bld) [#/Vol] 0 10*3/uL NINF - 0.1 10*3/uL [facility] Immature granulocytes/100 WBC (Bld) 0 % 0.0 - 2.0 % [facility] Interpretation and review of laboratory results Normal [facility] Lymphocytes (Bld) [#/Vol] 2.1 10*3/uL 1.0 - 4.3 10*3/uL [facility] Lymphocytes/100 WBC (Bld) 34.8 % 15.0 - 45.0 % [facility] MCH (RBC) [Entitic mass] 27.3 pg 26.0 - 34.0 pg [facility] MCHC (RBC) [Mass/Vol] 30.9 % 30.5 - 36.0 % [facility] MCV (RBC) [Entitic vol] 88.1 fL 77.0 - 99.0 fL [facility] Monocytes (Bld) [#/Vol] 0.4 10*3/uL 0.0 - 0.9 10*3/uL [facility] Monocytes/100 WBC (Bld) 6.9 % 5.0 - 13.0 % [facility] Neutrophils (Bld) [#/Vol] 3.4 10*3/uL 1.8 - 7.5 10*3/uL [facility] Neutrophils/100 WBC (Bld) 56.5 % 38.0 - 82.0 % [facility] Nucleated RBC/100 WBC (Bld) [Ratio] 0 % [facility] Platelet mean volume (Bld) [Entitic vol] 10.4 fL 9.0 - 12.7 fL [facility] Platelets (Bld) [#/Vol] 352 10*3/uL 140 - 440 10*3/uL [facility] RBC (Bld) [#/Vol] 4.55 10*6/uL 3.80 - 5.20 10*6/uL [facility] WBC (Bld) [#/Vol] 6 10*3/uL 3.6 - 10.7 10*3/uL [facility] CBC WITH AUTO DIFFERENTIALon 01-17-2025 Basophils (Bld) [#/Vol] 0.0 10*3/uL Normal 0.0-0.2 [facility] Comment on above: Performed By: #### L [id number] ####Lace Cutter: ERIKA ANGELO ([phone])[facility])[address] [place] [address] Basophils/100 WBC (Bld) 0.5 % Normal 0.0-2.0 [facility] Comment on above: Performed By: #### L [id number] ####Lace Cutter: ERIKA ANGELO ([phone])[facility])[address] [place] [address] Eosinophils (Bld) [#/Vol] 0.1 10*3/uL Normal 0.0-0.5 [facility] Comment on above: Performed By: #### L [id number] ####Lace Cutter: ERIKA ANGELO ([phone])[facility])[address] [place] [address] Eosinophils/100 WBC (Bld) 1.3 % Normal 0.0-6.0 [facility] Comment on above: Performed By: #### L [id number] ####Lace Cutter: ERIKA ANGELO ([id number])[facility])[address] [place] [address] Erythrocyte distribution width (RBC) [Ratio] 14.6 % Normal 11.5-15.0 [facility] Comment on above: Performed By: #### L [id number] ####Lace Cutter: ERIKA ANGELO ([phone])[address] Hematocrit (Bld) [Volume fraction] 40.1 % Normal 35.0-47.0 [facility] Comment on above: Performed By: #### L [id number] ####Lace Cutter: ERIKA ANGELO ([id number])[facility])[address] [place] [address] Hemoglobin (Bld) [Mass/Vol] 12.4 g/dL Normal 11.7-16.0 [facility] Comment on above: Performed By: #### L [id number] ####Lace Cutter: ERIKA ANGELO ([phone])[address] IMMATURE GRANS % 0.0 % Normal 0.0-2.0 [facility] Comment on above: Performed By: #### L [id number] ####Lace Cutter: ERIKA ANGELO ([id number])[address] IMMATURE GRANS ABSOLUTE 0.0 10*3/uL Normal <0.1 [facility] Comment on above: Performed By: #### L [id number] ####Lace Cutter: ERIKA ANGELO ([id number])[address] Lymphocytes (Bld) [#/Vol] 2.1 10*3/uL Normal 1.0-4.3 [facility] Comment on above: Performed By: #### L [id number] ####Lace Cutter: ERIKA ANGELO ([id number])[address] Lymphocytes/100 WBC (Bld) 34.8 % Normal 15.0-45.0 [facility] Comment on above: Performed By: #### L [id number] ####Lace Cutter: ERIKA ANGELO ([phone])[facility])[address] [place] [address] MCH (RBC) [Entitic mass] 27.3 pg Normal 26.0-34.0 [facility] Comment on above: Performed By: #### L [id number] ####Lace Cutter: ERIKA ANGELO ([phone])[facility])[address] [place] [address] MCHC 30.9 % Normal 30.5-36.0 [facility] Comment on above: Performed By: #### L [id number] ####Lace Cutter: ERIKA ANGELO ([phone])[facility])[address] [place] [address] MCV (RBC) [Entitic vol] 88.1 fL Normal 77.0-99.0 [facility] Comment on above: Performed By: #### L [id number] ####Lace Cutter: ERIKA ANGELO ([phone])[facility])[address] [place] [address] Monocytes (Bld) [#/Vol] 0.4 10*3/uL Normal 0.0-0.9 [facility] Comment on above: Performed By: #### L [id number] ####Lace Cutter: EIRKA ANGELO ([phone])[facility])[address] [place] [address] Monocytes/100 WBC (Bld) 6.9 % Normal 5.0-13.0 [facility] Comment on above: Performed By: #### L [id number] ####Lace Cutter: ERIKA ANGELO ([phone])[facility])[address] [place] [address] NEUTROPHILS ABSOLUTE 3.4 10*3/uL Normal 1.8-7.5 [facility] Comment on above: Performed By: #### L [id number] ####Lace Cutter: ERIKA ANGELO ([id number])[facility])[address] [place] [address] Neutrophils/100 WBC (Bld) 56.5 % Normal 38.0-82.0 [facility] Comment on above: Performed By: #### L [id number] ####Lace Cutter: ERIKA ANGELO ([phone])[facility] ([facility])[address] [place] [address] NRBC 0.0 /100 WBCs Normal 0.0-2.0 [facility] Comment on above: Performed By: #### L [id number] ####Lace Cutter: ERIKA ANGELO ([phone])[facility] ([facility])[address] [place] [address] Platelet mean volume (Bld) [Entitic vol] 10.4 fL Normal 9.0-12.7 [facility] Comment on above: Performed By: #### L [id number] ####Lace Cutter: ERIKA ANGELO ([phone])[facility] ([facility])[address] [place] [address] Platelets (Bld) [#/Vol] 352 10*3/uL Normal 140-440 [facility] Comment on above: Performed By: #### L [id number] ####Lace Cutter: ERIKA ANGELO ([phone])[facility] ([facility])[address] [place] [address] RBC (Bld) [#/Vol] 4.55 10*6/uL Normal 3.80-5.20 [facility] Comment on above: Performed By: #### L [id number] ####Lace Cutter: ERIKA ANGELO ([phone])[facility] ([facility])[address] [place] [address] WBC (Bld) [#/Vol] 6.0 10*3/uL Normal 3.6-10.7 [facility] Comment on above: Performed By: #### L [id number] ####Lace Cutter: ERIKA ANGELO ([phone])[facility] ([facility])[address] [place] [address] COMPREHENSIVE METABOLIC PANE Patricio 01-17-2025 Albumin [Mass/Vol] 2.8 g/dL Low 3.5-5.0 [facility] Comment on above: Performed By: #### L AB17, [id number] ####Lace Cutter: ERIKA ANGELO ([phone])[facility] ([facility])[address] [place] [address] ALP [Catalytic activity/Vol] 125 U/L Normal 40-150 [facility] Comment on above: Performed By: #### L AB17, [id number] ####Lace Cutter: ERIKA ANGELO ([id number])[facility] ([facility])[address] [place] [address] ALT [Catalytic activity/Vol] 16 U/L Normal <30 [facility] Comment on above: Performed By: #### L AB17, [id number] ####Lace Cutter: ERIKA ANGELO ([phone])[facility] ([facility])[address] [place] [address] Anion gap [Moles/Vol] 7 mmol/L Normal 3-13 [facility] Comment on above: Performed By: #### L AB17, [id number] ####Lace Cutter: ERIKA ANGELO ([phone])[facility] ([facility])[address] [place] [address] AST [Catalytic activity/Vol] 21 U/L Normal <34 [facility] Comment on above: Performed By: #### L AB17, [id number] ####Lace Cutter: ERIKA ANGELO ([phone])[facility])[address] [place] [address] Bilirubin [Mass/Vol] 0.2 mg/dL Normal <1.2 [facility] Comment on above: Performed By: #### L AB17, [id number] ####Lace Cutter: ERIKA ANGELO ([phone])[facility])[address] [place] [address] Calcium [Mass/Vol] 9.0 mg/dL Normal 8.4-10.2 [facility] Comment on above: Performed By: #### L AB17, [id number] ####Lace Cutter: ERIKA ANGELO ([phone])[facility] ([facility])[address] [place] [address] Chloride [Moles/Vol] 111 mmol/L High 98-107 [facility] Comment on above: Performed By: #### L AB17, [id number] ####Lace Cutter: ERIKA ANGELO ([phone])[facility])[address] [place] [address] CO2 [Moles/Vol] 23 mmol/L Normal 22-29 [facility] Comment on above: Performed By: #### L AB17, [id number] ####Lace Cutter: ERIKA ANGELO ([phone])[facility])[address] [place] [address] Creatinine [Mass/Vol] 0.67 mg/dL Normal 0.57-1.11 [facility] Comment on above: Performed By: #### L AB17, [id number] ####Lace Cutter: ERIKA ANGELO ([phone])[facility])[address] [place] [address] GLOMERULAR FILTRATION RATE ML/MIN/1.73 SQ M.PREDICTED >90.0 Normal >60.0 [facility] Comment on above: Result Comment: Calc ulation based on the Chronic Kidney Disease Epidemiology Collaboration (CKD-EPI) equation refit without adjustment for race Performed By: #### L AB17, [id number] ####Lace Cutter: ERIKA ANGELO ([id number])[facility])[address] [place] [address] Glucose [Mass/Vol] 98 mg/dL Normal 74-100 [facility] Comment on above: Performed By: #### L AB17, [id number] ####Lace Cutter: ERIKA ANGELO ([phone])[facility])[address] [place] [address] Potassium [Moles/Vol] 3.4 mmol/L Low 3.5-5.1 [facility] Comment on above: Result Comment: [facility] potassium values may be up to 0.5 mmol/L lower than serum values. Performed By: #### L AB17, [id number] ####Lace Cutter: ERIKA ANGELO ([phone])[facility] ([facility])[address] [place] [address] Protein [Mass/Vol] 7.6 g/dL Normal 6.4-8.3 [facility] Comment on above: Performed By: #### L AB17, [id number] ####Lace Cutter: ERIKA ANGELO ([phone])[facility] ([facility])[address] [place] [address] Sodium [Moles/Vol] 141 mmol/L Normal 136-145 [facility] Comment on above: Performed By: #### L AB17, [id number] ####Lace Cutter: ERIKA ANGELO ([phone])[facility] ([facility])[address] [place] [address] Urea nitrogen [Mass/Vol] 13 mg/dL Normal 8-21 [facility] Comment on above: Performed By: #### L AB17, [id number] ####Lace Cutter: ERIKA ANGELO ([phone])[facility] ([facility])[address] [place] [address] Comprehensive metabolic 1998 panelon 01-17-2025 Albumin [Mass/Vol] 2.8 g/dL Low 3.5 - 5.0 g/dL [facility] ALP [Catalytic activity/Vol] 125 U/L 40 - 150 U/L [facility] ALT [Catalytic activity/Vol] 16 U/L NINF - 30 U/L [facility] Anion gap [Moles/Vol] 7 mmol/L 3 - 13 mmol/L [facility] AST [Catalytic activity/Vol] 21 U/L NINF - 34 U/L [facility] Bilirubin [Mass/Vol] 0.2 mg/dL NINF - 1.2 mg/dL [facility] Calcium [Mass/Vol] 9 mg/dL 8.4 - 10. 2 mg/dL [facility] Chloride [Moles/Vol] 111 mmol/L High 98 - 10 7 mmol/L [facility] CO2 [Moles/Vol] 23 mmol/L 22 - 29 mmol/L [facility] Creatinine [Mass/Vol] 0.67 mg/dL 0.57 - 1.11 mg/dL [facility] GFR/1.73 sq M.predicted (S/P/Bld) [Vol rate/Area] - PINF [facility] Comment on above: Calculation based on the Chronic Kidney Disease Epidemiology Collaboration (CKD-EPI) equation refit without adjustment for race Glucose [Mass/Vol] 98 mg/dL 74 - 100 mg/dL [facility] Interpretation and review of laboratory results Abnormal [facility] Potassium [Moles/Vol] 3.4 mmol/L Low 3.5 - 5.1 mmol/L [facility] Comment on above: Plasma potassium stacey ues may be up to 0.5 mmol/L lower than serum values. Protein [Mass/Vol] 7.6 g/dL 6.4 - 8.3 g/dL [facility] Sodium [Moles/Vol] 141 mmol/L 136 - 145 mmol/L [facility] Urea nitrogen [Mass/Vol] 13 mg/dL 8 - 21 mg/dL [facility] - Chemistry and C hemistry - challengeon 01-17-2025 Magnesium [Mass/Vol] 2.2 mg/dL 1.6 - 2 .6 mg/dL [facility] MAGNESIUMon 01-17-2025 Magnesium [Mass/Vol] 2.2 mg/dL Normal 1.6-2.6 [facility] Comment on above: Result Comment: BRIANA Cummings COMMENTS: Higher values can be expected in females during menses. Performed By: #### L AB17, [id number] ####Lace Cutter: ERIKA ANGELO ([id number])[address] Magnesium [Mass/Vol]on 01-17 Interpretation and review of laboratory results Normal [facility] Higher values can be expected in females during menses. [facility] Nursing Noteon 01-17-2025 Nursing Note Called [facility] to request an updated patient medication list to be faxed to [phone] [facility] Wound Cultureon 01-17-2025 WC UNKNOWN LOCATION OF WOUND #3 Clinical correlation necessary, Possible skin contamination. Wound Culture Copy of report sent to Infection Control Printer MS#[id number] 01/16/25 08Willie MORROW. Wound Culture RESULTS CALLED TO SANCTUARY ANNALISA [...] Gentamicin Islt DARIO <=1 S Imipenem Islt DAROI <=0.25 S levoFLOXacin Islt DARIO 4 R [...] S Vancomycin Islt DARIO 1 S Normal [facility] Comment on above: Performed By: #### M 100.2000, M100.3000 #### [facility] [address] [place], [address] 30on 01-16-2025 30 Problem: Knowledge D eficit Goal: Patient/family/caregiver demonstrates understanding of disease process, treatment plan, medications, and discharge instructions Outcome: Progressing Problem: Potential for Compromised Skin Integrity Goal: Skin Integrity is Maintained or Improved Outcome: Progressing Goal: Nutritional status is improving Outcome: Progressing Problem: Urinary Incontinence Goal: Perineal skin integrity is maintained or improved Outcome: Progressing Normal [facility] [id number] 01-16-2025 [id number] Pt adm to hosp from [facility] w AMS, Hypotension, dehydration, N/V. BP stable. DOUBLE END SEWER tasked to send return referral to SNF. Met w pt, A+O today. Voice is very weak. Soft. Called Legal Guardian,Leola Chappell, , updates given. Pt is a Quad and is Bed bound. CM to follow for DC needs. Normal [facility] CBC W Auto Differential pane l (Bld)Ordered By: Celia Judge on 01-16-2025 Basophils (Bld) [#/Vol] 0 10*3/uL 0.0 - 0.2 10*3/uL [facility] Basophils/100 WBC (Bld) 0.6 % 0.0 - 2.0 % [facility] Eosinophils (Bld) [#/Vol] 0.1 10*3/uL 0.0 - 0.5 10*3/uL [facility] Eosinophils/100 WBC (Bld) 1.7 % 0.0 - 6.0 % [facility] Erythrocyte distribution width (RBC) [Ratio] 14.7 % 11.5 - 15.0 % [facility] Hematocrit (Bld) [Volume fraction] 34.6 % Low 35.0 - 47.0 % [facility] Hemoglobin (Bld) [Mass/Vol] 10.8 g/dL Low 11.7 - 16.0 g/dL [facility] Immature granulocytes (Bld) [#/Vol] 0 10*3/uL NINF - 0.1 10*3/uL [facility] Immature granulocytes/100 WBC (Bld) 0.4 % 0.0 - 2.0 % [facility] [employer] Interpretation and review of laboratory results Abnormal [facility] Lymphocytes (Bld) [#/Vol] 2 10*3/uL 1.0 - 4.3 10*3/uL [facility] Lymphocytes/100 WBC (Bld) 38.8 % 15.0 - 45.0 % [facility] [employer] MCH (RBC) [Entitic mass] 27.4 pg 26.0 - 34.0 pg [facility] MCHC (RBC) [Mass/Vol] 31.2 % 30.5 - 36.0 % [facility] MCV (RBC) [Entitic vol] 87.8 fL 77.0 - 99.0 fL [facility] Monocytes (Bld) [#/Vol] 0.3 10*3/uL 0.0 - 0.9 10*3/uL [facility] Monocytes/100 WBC (Bld) 5.8 % 5.0 - 13.0 % [facility] Neutrophils (Bld) [#/Vol] 2.8 10*3/uL 1.8 - 7.5 10*3/uL [facility] Neutrophils/100 WBC (Bld) 52.7 % 38.0 - 82.0 % [facility] Nucleated RBC/100 WBC (Bld) [Ratio] 0 % [facility] Platelet mean volume (Bld) [Entitic vol] 10.5 fL 9.0 - 12.7 fL [facility] Platelets (Bld) [#/Vol] 327 10*3/uL 140 - 440 10*3/uL [facility] RBC (Bld) [#/Vol] 3.94 10*6/uL 3.80 - 5.20 10*6/uL [facility] WBC (Bld) [#/Vol] 5.2 10*3/uL 3.6 - 10.7 10*3/uL [facility] CBC WITH AUTO DIFFERENTIALon 01-16-2025 Basophils (Bld) [#/Vol] 0.0 10*3/uL Normal 0.0-0.2 [facility] Comment on above: Performed By: #### L [id number] ####Lace Cutter: ERIKA ANGELO ([id number])[address] Basophils/100 WBC (Bld) 0.6 % Normal 0.0-2.0 [facility] Comment on above: Performed By: #### L [id number] ####Lace Cutter: ERIKA ANGELO ([phone])[facility])[address] [place] [address] Eosinophils (Bld) [#/Vol] 0.1 10*3/uL Normal 0.0-0.5 [facility] Comment on above: Performed By: #### L [id number] ####Lace Cutter: ERIKA ANGELO ([id number])[address] Eosinophils/100 WBC (Bld) 1.7 % Normal 0.0-6.0 [facility] Comment on above: Performed By: #### L [id number] ####Lace Cutter: ERIKA ANGELO ([id number])[facility])[address] [place] [address] Erythrocyte distribution width (RBC) [Ratio] 14.7 % Normal 11.5-15.0 [facility] Comment on above: Performed By: #### L [id number] ####Lace Cutter: ERIKA ANGELO ([id number])[address] Hematocrit (Bld) [Volume fraction] 34.6 % Low 35.0-47.0 [facility] Comment on above: Performed By: #### L [id number] ####Lace Cutter: ERIKA ANGELO ([id number])[address] Hemoglobin (Bld) [Mass/Vol] 10.8 g/dL Low 11.7-16.0 [facility] Comment on above: Performed By: #### L [id number] ####Lace Cutter: ERIKA ANGELO ([id number])[address] IMMATURE GRANS % 0.4 % Normal 0.0-2.0 [facility] Comment on above: Performed By: #### L [id number] ####Lace Cutter: ERIKA ANGELO ([id number])[address] IMMATURE GRANS ABSOLUTE 0.0 10*3/uL Normal <0.1 [facility] Comment on above: Performed By: #### L [id number] ####Lace Cutter: ERIKA [id number])[facility])[address] [place] [address] Lymphocytes (Bld) [#/Vol] 2.0 10*3/uL Normal 1.0-4.3 [facility] Comment on above: Performed By: #### L [id number] ####Lace Cutter: ERIKA ANGELO ([id number])[facility])[address] [place] [address] Lymphocytes/100 WBC (Bld) 38.8 % Normal 15.0-45.0 [facility] Comment on above: Performed By: #### L [id number] ####Lace Cutter: ERIKA ANGELO ([id number])[facility])[address] [place] [address] MCH (RBC) [Entitic mass] 27.4 pg Normal 26.0-34.0 [facility] Comment on above: Performed By: #### L [id number] ####Lace Cutter: ERIKA ANGELO ([id number])[facility])[address] [place] [address] MCHC 31.2 % Normal 30.5-36.0 [facility] Comment on above: Performed By: #### L [id number] ####Lace Cutter: ERIKA ANGELO ([id number])[facility])[address] [place] [address] MCV (RBC) [Entitic vol] 87.8 fL Normal 77.0-99.0 [facility] Comment on above: Performed By: #### L [id number] ####Lace Cutter: ERIKA ANGELO ([id number])[facility])[address] [place] [address] Monocytes (Bld) [#/Vol] 0.3 10*3/uL Normal 0.0-0.9 [facility] Comment on above: Performed By: #### L [id number] ####Lace Cutter: ERIKA ANGELO ([id number])[facility])[address] [place] [address] [place] Monocytes/100 WBC (Bld) 5.8 % Normal 5.0-13.0 [facility] Comment on above: Performed By: #### L [id number] ####Lace Cutter: ERIKA ANGELO ([id number])[facility] ([facility])[address] [place] [address] NEUTROPHILS ABSOLUTE 2.8 10*3/uL Normal 1.8-7.5 [facility] Comment on above: Performed By: #### L [id number] ####Lace Cutter: ERIKA ANGELO ([id number])[facility] ([facility])[address] [place] [address] Neutrophils/100 WBC (Bld) 52.7 % Normal 38.0-82.0 [facility] Comment on above: Performed By: #### L [id number] ####Lace Cutter: ERIKA ANGELO ([id number])[facility])[address] [place] [address] NRBC 0.0 /100 WBCs Normal 0.0-2.0 [facility] Comment on above: Performed By: #### L [id number] ####Lace Cutter: ERIKA ANGELO ([id number])[facility] ([facility])[address] [place] [address] Platelet mean volume (Bld) [Entitic vol] 10.5 fL Normal 9.0-12.7 [facility] Comment on above: Performed By: #### L [id number] ####Lace Cutter: ERIKA ANGELO ([id number])[facility] ([facility])[address] [place] [address] [place] Platelets (Bld) [#/Vol] 327 10*3/uL Normal 140-440 [facility] Comment on above: Performed By: #### L [id number] ####Lace Cutter: ERIKA ANGELO ([id number])[facility] ([facility])[address] [place] [address] RBC (Bld) [#/Vol] 3.94 10*6/uL Normal 3.80-5.20 [facility] Comment on above: Performed By: #### L [id number] ####Lace Cutter: ERIKA ANGELO ([id number])[facility] ([facility])[address] [place] [address] WBC (Bld) [#/Vol] 5.2 10*3/uL Normal 3.6-10.7 [facility] Comment on above: Performed By: #### L [id number] ####Lace Cutter: ERIKA ANGELO ([phone])[facility] ([facility])[address] [place] [address] COMPREHENSIVE METABOLIC PANE Patricio 01-16-2025 Albumin [Mass/Vol] 2.7 g/dL Low 3.5-5.0 [facility] Comment on above: Performed By: #### L AB103, LAB17 ####Lace Cutter: ERIKA ANGELO ([id number])[facility])[address] [place] [address] ALP [Catalytic activity/Vol] 127 U/L Normal 40-150 [facility] Comment on above: Performed By: #### L AB103, LAB17 ####Lace Cutter: ERIKA ANGELO ([id number])[facility] ([facility])[address] [place] [address] ALT [Catalytic activity/Vol] 14 U/L Normal <30 [facility] Comment on above: Performed By: #### L AB103, LAB17 ####Lace Cutter: ERIKA ANGELO ([phone])[facility])[address] [place] [address] Anion gap [Moles/Vol] 8 mmol/L Normal 3-13 [facility] Comment on above: Performed By: #### L AB103, LAB17 ####Lace Cutter: ERIKA ANGELO ([id number])[facility])[address] [place] [address] AST [Catalytic activity/Vol] 18 U/L Normal <34 [facility] Comment on above: Performed By: #### L AB103, LAB17 ####Lace Cutter: ERIKA ANGELO ([id number])[facility])[address] [place] [address] Bilirubin [Mass/Vol] 0.2 mg/dL Normal <1.2 [facility] Comment on above: Performed By: #### Hemal ESCAMILLA, LAB17 ####Lace Cutter: ERIKA ANGELO ([id number])[facility])[address] [place] [address] Calcium [Mass/Vol] 8.8 mg/dL Normal 8.4-10.2 [facility] Comment on above: Performed By: #### Hemal ESCAMILLA, LAB17 ####Lace Cutter: ERIKA ANGELO ([id number])[facility] ([facility])[address] [place] [address] Chloride [Moles/Vol] 112 mmol/L High 98-107 [facility] Comment on above: Performed By: #### Hemal ESCAMILLA, LAB17 ####Lace Cutter: ERIKA ANGELO ([phone])[facility] ([facility])[address] [place] [address] CO2 [Moles/Vol] 21 mmol/L Low 22-29 [facility] Comment on above: Performed By: #### Hemal ESCAMILLA, LAB17 ####Lace Cutter: ERIKA ANGELO ([phone])[facility])[address] [place] [address] Creatinine [Mass/Vol] 0.70 mg/dL Normal 0.57-1.11 [facility] Comment on above: Performed By: #### Hemal ESCAMILLA, LAB17 ####Lace Cutter: ERIKA ANGELO ([phone])[facility])[address] [place] [address] GLOMERULAR FILTRATION RATE ML/MIN/1.73 SQ M.PREDICTED >90.0 Normal >60.0 [facility] Comment on above: Result Comment: Calc ulation based on the Chronic Kidney Disease Epidemiology Collaboration (CKD-EPI) equation refit without adjustment for race Performed By: #### Hemal ESCAMILLA, LAB17 ####Lace Cutter: ERIKA ANGELO ([phone])[facility])[address] [place] [address] Glucose [Mass/Vol] 100 mg/dL Normal 74-100 [facility] Comment on above: Performed By: #### L AB103, LAB17 ####Lace Cutter: ERIKA ANGELO ([id number])[facility] ([facility])[address] [place] [address] Potassium [Moles/Vol] 3.5 mmol/L Normal 3.5-5.1 [facility] Comment on above: Result Comment: [facility] potassium values may be up to 0.5 mmol/L lower than serum values. Performed By: #### L AB103, LAB17 ####Lace Cutter: ERIKA ANGELO ([id number])[facility] ([facility])[address] [place] [address] Protein [Mass/Vol] 7.0 g/dL Normal 6.4-8.3 [facility] Comment on above: Performed By: #### L AB103, LAB17 ####Lace Cutter: ERIKA ANGELO ([phone])[facility] ([facility])[address] [place] [address] Sodium [Moles/Vol] 141 mmol/L Normal 136-145 [facility] Comment on above: Performed By: #### L AB103, LAB17 ####Lace Cutter: ERIKA ANGELO ([phone])[facility] ([facility])[address] [place] [address] Urea nitrogen [Mass/Vol] 14 mg/dL Normal 8-21 [facility] Comment on above: Performed By: #### L AB103, LAB17 ####Lace Cutter: ERIKA ANGELO ([phone])[facility])[address] [place] [address] Comprehensive metabolic 1998 panelon 01-16-2025 Albumin [Mass/Vol] 2.7 g/dL Low 3.5 - 5.0 g/dL [facility] ALP [Catalytic activity/Vol] 127 U/L 40 - 150 U/L [facility] ALT [Catalytic activity/Vol] 14 U/L NINF - 30 U/L [facility] Anion gap [Moles/Vol] 8 mmol/L 3 - 13 mmol/L [facility] AST [Catalytic activity/Vol] 18 U/L NINF - 34 U/L [facility] Bilirubin [Mass/Vol] 0.2 mg/dL NINF - 1.2 mg/dL [facility] Calcium [Mass/Vol] 8.8 mg/dL 8.4 - 10. 2 mg/dL [facility] Chloride [Moles/Vol] 112 mmol/L High 98 - 10 7 mmol/L [facility] CO2 [Moles/Vol] 21 mmol/L Low 22 - 29 mmol/L [facility] Creatinine [Mass/Vol] 0.7 mg/dL 0.57 - 1.11 mg/dL [facility] GFR/1.73 sq M.predicted (S/P/Bld) [Vol rate/Area] - PINF [facility] Comment on above: Calculation based on the Chronic Kidney Disease Epidemiology Collaboration (CKD-EPI) equation refit without adjustment for race Glucose [Mass/Vol] 100 mg/dL 74 - 100 mg/dL [facility] Interpretation and review of laboratory results Abnormal [facility] Potassium [Moles/Vol] 3.5 mmol/L 3.5 - 5.1 mmol/L [facility] Comment on above: Plasma potassium stacey ues may be up to 0.5 mmol/L lower than serum values. Protein [Mass/Vol] 7 g/dL 6.4 - 8.3 g/dL [facility] Sodium [Moles/Vol] 141 mmol/L 136 - 145 mmol/L [facility] Urea nitrogen [Mass/Vol] 14 mg/dL 8 - 21 mg/dL [facility] - Chemistry and C hemistry - challengeon 01-16-2025 Magnesium [Mass/Vol] 2.2 mg/dL 1.6 - 2 .6 mg/dL [facility] MAGNESIUMon 01-16-2025 Magnesium [Mass/Vol] 2.2 mg/dL Normal 1.6-2.6 [facility] Comment on above: Result Comment: BRIANA Cummings COMMENTS: Higher values can be expected in females during menses. Performed By: #### L AB103, LAB17 ####Lace Cutter: ERIKA ANGELO ([phone])[facility] ([facility])[address] [place], [place] [id number] [facility] Magnesium [Mass/Vol]on 01-16 Interpretation and review of laboratory results Normal [facility] Higher values can be expected in females during menses. [facility] Progress Noteon 01-16-2025 Progress Note Nutrition rescreen completed. Patient referred to the Dietitian. Pressure injury. Normal [facility] CBC W Auto Differential pane l (Bld)Ordered By: Flip Kimball on 01-15-2025 Basophils (Bld) [#/Vol] 0 10*3/uL 0.0 - 0.2 10*3/uL [facility] Basophils/100 WBC (Bld) 0.6 % 0.0 - 2.0 % [facility] Eosinophils (Bld) [#/Vol] 0.1 10*3/uL 0.0 - 0.5 10*3/uL [facility] Eosinophils/100 WBC (Bld) 1.2 % 0.0 - 6.0 % [facility] Erythrocyte distribution width (RBC) [Ratio] 14.7 % 11.5 - 15.0 % [facility] Hematocrit (Bld) [Volume fraction] 37 % 35.0 - 47.0 % [facility] Hemoglobin (Bld) [Mass/Vol] 11.4 g/dL Low 11.7 - 16.0 g/dL [facility] Immature granulocytes (Bld) [#/Vol] 0 10*3/uL NINF - 0.1 10*3/uL [facility] Immature granulocytes/100 WBC (Bld) 0.3 % 0.0 - 2.0 % [facility] Interpretation and review of laboratory results Abnormal [facility] Lymphocytes (Bld) [#/Vol] 1.6 10*3/uL 1.0 - 4.3 10*3/uL [facility] Lymphocytes/100 WBC (Bld) 24.2 % 15.0 - 45.0 % [facility] MCH (RBC) [Entitic mass] 27.5 pg 26.0 - 34.0 pg [facility] MCHC (RBC) [Mass/Vol] 30.8 % 30.5 - 36.0 % [facility] MCV (RBC) [Entitic vol] 89.2 fL 77.0 - 99.0 fL [facility] Monocytes (Bld) [#/Vol] 0.4 10*3/uL 0.0 - 0.9 10*3/uL [facility] Monocytes/100 WBC (Bld) 6.7 % 5.0 - 13.0 % [facility] Neutrophils (Bld) [#/Vol] 4.4 10*3/uL 1.8 - 7.5 10*3/uL [facility] Neutrophils/100 WBC (Bld) 67 % 38.0 - 82.0 % [facility] Nucleated RBC/100 WBC (Bld) [Ratio] 0 % [facility] Platelet mean volume (Bld) [Entitic vol] 10.4 fL 9.0 - 12.7 fL [facility] Platelets (Bld) [#/Vol] 309 10*3/uL 140 - 440 10*3/uL [facility] RBC (Bld) [#/Vol] 4.15 10*6/uL 3.80 - 5.20 10*6/uL [facility] WBC (Bld) [#/Vol] 6.6 10*3/uL 3.6 - 10.7 10*3/uL [facility] CBC WITH AUTO DIFFERENTIALon 01-15-2025 Basophils (Bld) [#/Vol] 0.0 10*3/uL Normal 0.0-0.2 [facility] Comment on above: Performed By: #### L [id number] ####Lace Cutter: ERIKA ANGELO ([phone])[facility])[address] [place] [address] Basophils/100 WBC (Bld) 0.6 % Normal 0.0-2.0 [facility] Comment on above: Performed By: #### L [id number] ####Lace Cutter: ERIKA ANGELO ([phone])[facility] ([facility])[address] [place] [address] [place] Eosinophils (Bld) [#/Vol] 0.1 10*3/uL Normal 0.0-0.5 [facility] Comment on above: Performed By: #### L [id number] ####Lace Cutter: ERIKA ANGELO ([phone])[facility] ([facility])[address] [place] [address] [place] Eosinophils/100 WBC (Bld) 1.2 % Normal 0.0-6.0 [facility] Comment on above: Performed By: #### L [id number] ####Lace Cutter: ERIKA ANGELO ([id number])[facility])[address] [place] [address] Erythrocyte distribution width (RBC) [Ratio] 14.7 % Normal 11.5-15.0 [facility] Comment on above: Performed By: #### L [id number] ####Lace Cutter: ERIKA ANGELO ([id number])[facility])[address] [place] [address] Hematocrit (Bld) [Volume fraction] 37.0 % Normal 35.0-47.0 [facility] Comment on above: Performed By: #### L [id number] ####Lace Cutter: ERIKA ANGELO ([id number])[address] Hemoglobin (Bld) [Mass/Vol] 11.4 g/dL Low 11.7-16.0 [facility] Comment on above: Performed By: #### L [id number] ####Lace Cutter: ERIKA ANGELO ([phone])[address] IMMATURE GRANS % 0.3 % Normal 0.0-2.0 [facility] Comment on above: Performed By: #### L [id number] ####Lace Cutter: ERIKA ANGELO ([id number])[address] IMMATURE GRANS ABSOLUTE 0.0 10*3/uL Normal <0.1 [facility] Comment on above: Performed By: #### L [id number] ####Lace Cutter: ERIKA ANGELO ([phone])[place] [address] [place] Lymphocytes (Bld) [#/Vol] 1.6 10*3/uL Normal 1.0-4.3 [facility] Comment on above: Performed By: #### L [id number] ####Lace Cutter: ERIKA ANGELO ([phone])[facility] ([facility])[address] [place] [address] Lymphocytes/100 WBC (Bld) 24.2 % Normal 15.0-45.0 [facility] Comment on above: Performed By: #### L [id number] ####Lace Cutter: ERIKA ANGELO ([phone])[facility])[address] [place] [address] MCH (RBC) [Entitic mass] 27.5 pg Normal 26.0-34.0 [facility] Comment on above: Performed By: #### L [id number] ####Lace Cutter: ERIKA ANGELO ([phone])[facility])[address] [place] [address] MCHC 30.8 % Normal 30.5-36.0 [facility] Comment on above: Performed By: #### L [id number] ####Lace Cutter: ERIKA ANGELO ([phone])[facility] ([facility])[address] [place] [address] MCV (RBC) [Entitic vol] 89.2 fL Normal 77.0-99.0 [facility] Comment on above: Performed By: #### L [id number] ####Lace Cutter: ERIKA ANGELO ([phone])[facility])[address] [place] [address] Monocytes (Bld) [#/Vol] 0.4 10*3/uL Normal 0.0-0.9 [facility] Comment on above: Performed By: #### L [id number] ####Lace Cutter: ERIKA ANGELO ([id number])[facility])[address] [place] [address] Monocytes/100 WBC (Bld) 6.7 % Normal 5.0-13.0 [facility] Comment on above: Performed By: #### L [id number] ####Lace Cutter: ERIKA ANGELO ([id number])[facility])[address] [place] [address] NEUTROPHILS ABSOLUTE 4.4 10*3/uL Normal 1.8-7.5 [facility] Comment on above: Performed By: #### L [id number] ####Lace Cutter: ERIKA ANGELO ([phone])[facility] ([facility])[address] [place] [address] Neutrophils/100 WBC (Bld) 67.0 % Normal 38.0-82.0 [facility] Comment on above: Performed By: #### L [id number] ####Lace Cutter: ERIKA ANGELO ([phone])[facility] ([facility])[address] [place] [address] NRBC 0.0 /100 WBCs Normal 0.0-2.0 [facility] Comment on above: Performed By: #### L [id number] ####Lace Cutter: ERIKA ANGELO ([id number])[facility] ([facility])[address] [place] [address] Platelet mean volume (Bld) [Entitic vol] 10.4 fL Normal 9.0-12.7 [facility] Comment on above: Performed By: #### L [id number] ####Lace Cutter: ERIKA ANGELO ([phone])[facility] ([facility])[address] [place] [address] Platelets (Bld) [#/Vol] 309 10*3/uL Normal 140-440 [facility] Comment on above: Performed By: #### L [id number] ####Lace Cutter: ERIKA ANGELO ([id number])[facility] ([facility])[address] [place] [address] [place] RBC (Bld) [#/Vol] 4.15 10*6/uL Normal 3.80-5.20 [facility] Comment on above: Performed By: #### L [id number] ####Lace Cutter: ERIKA ANGELO ([id number])[facility] ([facility])[address] [place] [address] [place] WBC (Bld) [#/Vol] 6.6 10*3/uL Normal 3.6-10.7 [facility] Comment on above: Performed By: #### L [id number] ####Lace Cutter: ERIKA ANGELO ([phone])[facility])[address] [place] [address] COMPREHENSIVE METABOLIC PANE Patricio 01-15-2025 Albumin [Mass/Vol] 2.7 g/dL Low 3.5-5.0 [facility] Comment on above: Performed By: #### L [id number] ####Lace Cutter: ERIKA ANGELO ([id number])[facility] ([facility])[address] [place] [address] ALP [Catalytic activity/Vol] 116 U/L Normal 40-150 [facility] Comment on above: Performed By: #### L [id number] ####Lace Cutter: ERIKA ANGELO ([phone])[facility])[address] [place] [address] ALT [Catalytic activity/Vol] 18 U/L Normal <30 [facility] Comment on above: Performed By: #### L [id number] ####Lace Cutter: ERIKA ANGELO ([id number])[facility])[address] [place] [address] Anion gap [Moles/Vol] 6 mmol/L Normal 3-13 [facility] Comment on above: Performed By: #### L [id number] ####Lace Cutter: ERIKA ANGELO ([id number])[facility])[address] [place] [address] AST [Catalytic activity/Vol] 24 U/L Normal <34 [facility] Comment on above: Performed By: #### L [id number] ####Lace Cutter: ERIKA ANGELO ([id number])[facility])[address] [place] [address] Bilirubin [Mass/Vol] 0.3 mg/dL Normal <1.2 [facility] Comment on above: Performed By: #### L [id number] ####Lace Cutter: ERIKA ANGELO ([id number])[facility] [place] [address] Calcium [Mass/Vol] 8.6 mg/dL Normal 8.4-10.2 [facility] Comment on above: Performed By: #### L [id number] ####Lace Cutter: ERIKA ANGELO ([id number])[facility] ([facility])[address] [place] [address] Chloride [Moles/Vol] 113 mmol/L High 98-107 [facility] Comment on above: Performed By: #### L [id number] ####Lace Cutter: ERIKA ANGELO ([id number])[facility] ([facility])[address] [place] [address] CO2 [Moles/Vol] 21 mmol/L Low 22-29 [facility] Comment on above: Performed By: #### L [id number] ####Lace Cutter: ERIKA ANGELO ([phone])[facility] ([facility])[address] [place] [address] Creatinine [Mass/Vol] 0.67 mg/dL Normal 0.57-1.11 [facility] Comment on above: Performed By: #### L [id number] ####Lace Cutter: ERIKA ANGELO ([id number])[facility])[address] [place] [address] GLOMERULAR FILTRATION RATE ML/MIN/1.73 SQ M.PREDICTED >90.0 Normal >60.0 [facility] Comment on above: Result Comment: Calc ulation based on the Chronic Kidney Disease Epidemiology Collaboration (CKD-EPI) equation refit without adjustment for race Performed By: #### L [id number] ####Lace Cutter: ERIKA ANGELO ([phone])[facility] ([facility])[address] [place] [address] [place] Glucose [Mass/Vol] 94 mg/dL Normal 74-100 [facility] Comment on above: Performed By: #### L [id number] ####Lace Cutter: ERIKA ANGELO ([id number])[facility] ([facility])[address] [place] [address] [place] Potassium [Moles/Vol] 4.1 mmol/L Normal 3.5-5.1 [facility] Comment on above: Result Comment: [facility] potassium values may be up to 0.5 mmol/L lower than serum values. Performed By: #### L [id number] ####Lace Cutter: ERIKA ANGELO ([phone])[facility])[address] [place] [address] Protein [Mass/Vol] 7.0 g/dL Normal 6.4-8.3 [facility] Comment on above: Performed By: #### L [id number] ####Lace Cutter: ERIKA ANGELO ([id number])[facility])[address] [place] [address] Sodium [Moles/Vol] 140 mmol/L Normal 136-145 [facility] Comment on above: Performed By: #### L [id number] ####Lace Cutter: ERIKA ANGELO ([id number])[address] Urea nitrogen [Mass/Vol] 12 mg/dL Normal 8-21 [facility] Comment on above: Performed By: #### L [id number] ####Lace Cutter: ERIKA ANGELO ([phone])[address] SHOULDER LEFT WO IV CONTR Freddy 01-15-2025 CT SHOULDER LEFT WO IV CONTRAST [facility] Name[facility] 1975 [id number] Exam Date/Time: 01/15/2025 01:23 Procedure: CT SHOULDER [...] s/p L humeral head IO, c/f arthrotomy [facility] CT Shoulder - left WO [facility] 01-15-2025 No fracture or dislocation of the left shoulder is identified. No joint effusion, fluid collection, or soft tissue gas is identified. Degenerative changes of the left acromioclavicular and glenohumeral joints. Report Dictated on Electronically Signed By: Preston Ferrari MD Electronically Signed Date/Time: 01/15/2025 2:43 AM [facility] RADIOLOGY [facility] Patient Name: DIANA PUGH [facility] 1975 [id number] Exam Date/Time: 01/15/2025 01:23 Procedure: CT SHOULDER [...] pleural effusion is noted, not fully imaged. [facility] RADIOLOGY SYSTEM Preston Ferrari MD - 01/15/2025 Patient Name: DIANA CALABRESE [facility] 1975 [id number] Exam Date/Time: 01/15/2025 01:23 Procedure: CT SHOULDER [...] Electronically Signed Date/Time: 01/15/2025 2:43 AM EDT [facility] Radiology Study observation (narrative) [facility] Comprehensive metabolic 1998 panelon 01-15-2025 Albumin [Mass/Vol] 2.7 g/dL Low 3.5 - 5.0 g/dL [facility] ALP [Catalytic activity/Vol] 116 U/L 40 - 150 U/L [facility] ALT [Catalytic activity/Vol] 18 U/L NINF - 30 U/L [facility] Anion gap [Moles/Vol] 6 mmol/L 3 - 13 mmol/L [facility] AST [Catalytic activity/Vol] 24 U/L NINF - 34 U/L [facility] Bilirubin [Mass/Vol] 0.3 mg/dL NINF - 1.2 mg/dL [facility] Calcium [Mass/Vol] 8.6 mg/dL 8.4 - 10. 2 mg/dL [facility] Chloride [Moles/Vol] 113 mmol/L High 98 - 10 7 mmol/L [facility] CO2 [Moles/Vol] 21 mmol/L Low 22 - 29 mmol/L [facility] Creatinine [Mass/Vol] 0.67 mg/dL 0.57 - 1.11 mg/dL [facility] GFR/1.73 sq M.predicted (S/P/Bld) [Vol rate/Area] - PINF [facility] Comment on above: Calculation based on the Chronic Kidney Disease Epidemiology Collaboration (CKD-EPI) equation refit without adjustment for race Glucose [Mass/Vol] 94 mg/dL 74 - 100 mg/dL [facility] Interpretation and review of laboratory results Abnormal [facility] Potassium [Moles/Vol] 4.1 mmol/L 3.5 - 5.1 mmol/L [facility] Comment on above: Plasma potassium stacey ues may be up to 0.5 mmol/L lower than serum values. Protein [Mass/Vol] 7 g/dL 6.4 - 8.3 g/dL [facility] Sodium [Moles/Vol] 140 mmol/L 136 - 145 mmol/L [facility] Urea nitrogen [Mass/Vol] 12 mg/dL 8 - 21 mg/dL [facility] Consulton 01-15-2025 Consult [facility] Wound Care CONSULT Note Diana Calabrese AGE: 49 y.o. GENDER: female : 1975 Subjective: HISTORY of PRESENT ILLNESS HPI Diana Calabrese is a 49 y.o. female who presents for a wound consult. HPI: 47 y.o. female with PMH per EMR history of Alzheimer's dementia, hypertension, quadriplegia, presents from intermediate facility with concern for altered mental status. [...] to follow Recommend to follow up at [facility] Outpatient wound care center after hospital discharge. [...] facility-administere (more content not included)... Normal [facility] ECG 12-LEADon 01-15-2025 ECG 12-LEAD IMPRESSION: Sinus rhythm Borderline T abnormalities, inferior leads Electronically Signed On 01-15-2025 15:46:22 EDT by Mendel Santiago Normal [facility] Laboratory - Chemistry and C hemistry - challengeon 01-15-2025 Magnesium [Mass/Vol] 2.3 mg/dL 1.6 - 2 .6 mg/dL [facility] Magnesium [Mass/Vol]on 01-15 Higher values can be expected in females during menses. [facility] No Panel InformationOrdered By: Mendel Santiago on 01-15-2025 P [place] 65 degrees [employer] Phone: AL Interval 160 ms [employer] Phone: QRS [place] 60 degrees [employer] Phone: QRSD Interval 93 ms [employer] Phone: QT Interval 380 ms [employer] Phone: QTC Interval 425 ms [employer] Phone: T Wave [place] -29 degrees [employer] Phone: [employer] Phone: [phone] No Panel Informationon 01-15 Sinus rhythm Borderline T abnormalities, inferior leads Electronically Signed On 01-15-2025 15:46:22 EDT by Mendel Fuller MD - 01/15/2025 IMPRESSION: Sinus rhythm Borderline T abnormalities, inferior leads Electronically Signed On 01-15-2025 15:46:22 EDT by Mendel Santiago [facility] Interpretation and review of laboratory results Normal [facility] Phosphate [Moles/Vol]on 12-29 Phosphate [Mass/Vol] 4.3 mg/dL 2.3 - 4 .7 mg/dL [facility] Progress Noteon 01-15-2025 Progress Note PHYSICAL THERAPY [facility] Name/MRN: Diana Calabrese ([id number]) Date: 01/15/2025 DC Note Chart reviewed. Per chart , pt is dependent with ADLs and is bed bound at baseline. Pt not appropriate for PT. Will sign off. Manny Bruner, PT Normal [facility] Progress Note OCCUPATIONAL THERAPY [facility] Name/MRN: Diana Calabrese ([id number]) Date: 01/15/2025 Chart reviewed. Per chart , pt is dependent with ADLs and is bed bound at baseline. Pt not appropriate for OT. Will sign off. Dakotah Barnes, OT Normal [facility] Progress Note CT Left Shoulder (01/15/25): [...] Quinones MD PGY-2, Orthopaedic Surgery Normal [facility] Vital signsOrdered By: Mendel Santiago on 01-15-2025 Heart rate 75 /min bpm [facility] Work Phone: 30on 01-14-2025 30 Problem: Knowledge D eficit Goal: Patient/family/caregiver demonstrates understanding of disease process, treatment plan, medications, and discharge instructions Outcome: Progressing Problem: Potential for Compromised Skin Integrity Goal: Skin Integrity is Maintained or Improved Outcome: Progressing Goal: Nutritional status is improving Outcome: Progressing Problem: Urinary Incontinence Goal: Perineal skin integrity is maintained or improved Outcome: Progressing Normal [facility] APTTon 01-14-2025 aPTT Coag (Bld) [Time] 29.1 s Normal 20.0-30.5 [facility] Comment on above: Result Comment: BRIANA Cummings COMMENTS: NOTE: The therapeutic time for Heparin anticoagulation, based on Xa activity inhibition, is an APTT of 46-80 seconds. Performed By: #### L [id number] ####Lace Cutter: ERIKA ANGELO ([id number])[facility] ([facility])[address] [place] [address] BLOOD CULTUREon 01-14-2025 Bacteria identified Cx Nom (Bld) BLOOD CULTURE Reference No growth at 5 days ORDER COMMENTS: Blood Collection Site: Left Arm [ S = SUSCEPTIBLE R = RESISTANT I = INTERMEDIATE S-DD = Susceptible-dose dependent NS = Non-susceptible NO = No Interpretation ] Normal [facility] Comment on above: Performed By: #### L [id number] #### Lace Cutter: ERIKA ANGELO ([phone]) [facility] ([facility]) [address] [place] [address] Bacteria identified Cx Nom (Bld) BLOOD CULTURE Reference No growth at 5 days ORDER COMMENTS: Blood Collection Site: Right Femoral Line [ S = SUSCEPTIBLE R = RESISTANT I = INTERMEDIATE S-DD = Susceptible-dose dependent NS = Non-susceptible NO = No Interpretation ] Normal [facility] Comment on above: Performed By: #### L [id number] ####Lace Cutter: ERIKA ANGELO ([id number])[facility] ([facility])[address] [place] [address] CBC W Auto Differential pane l (Bld)Ordered By: Melvi Jordan on 01-14-2025 Basophils (Bld) [#/Vol] 0 10*3/uL 0.0 - 0.2 10*3/uL [facility] Basophils/100 WBC (Bld) 0.5 % 0.0 - 2.0 % [facility] Eosinophils (Bld) [#/Vol] 0.1 10*3/uL 0.0 - 0.5 10*3/uL [facility] Eosinophils/100 WBC (Bld) 1.6 % 0.0 - 6.0 % [facility] Erythrocyte distribution width (RBC) [Ratio] 14.8 % 11.5 - 15.0 % [facility] Hematocrit (Bld) [Volume fraction] 42.9 % 35.0 - 47.0 % [facility] Hemoglobin (Bld) [Mass/Vol] 13.5 g/dL 11.7 - 16.0 g/dL [facility] Immature granulocytes (Bld) [#/Vol] 0 10*3/uL NINF - 0.1 10*3/uL [facility] Immature granulocytes/100 WBC (Bld) 0.4 % 0.0 - 2.0 % [facility] Interpretation and review of laboratory results Normal [facility] Lymphocytes (Bld) [#/Vol] 2.3 10*3/uL 1.0 - 4.3 10*3/uL [facility] Lymphocytes/100 WBC (Bld) 31.7 % 15.0 - 45.0 % [facility] MCH (RBC) [Entitic mass] 27.6 pg 26.0 - 34.0 pg [facility] MCHC (RBC) [Mass/Vol] 31.5 % 30.5 - 36.0 % [facility] MCV (RBC) [Entitic vol] 87.7 fL 77.0 - 99.0 fL [facility] Monocytes (Bld) [#/Vol] 0.7 10*3/uL 0.0 - 0.9 10*3/uL [facility] Monocytes/100 WBC (Bld) 10 % 5.0 - 13.0 % [facility] Neutrophils (Bld) [#/Vol] 4.1 10*3/uL 1.8 - 7.5 10*3/uL [facility] Neutrophils/100 WBC (Bld) 55.8 % 38.0 - 82.0 % [facility] Nucleated RBC/100 WBC (Bld) [Ratio] 0 % [facility] Platelet mean volume (Bld) [Entitic vol] 10.1 fL 9.0 - 12.7 fL [facility] Comment on above: MPV is a calculated measurement using platelet volume ratio Platelets (Bld) [#/Vol] 363 10*3/uL 140 - 440 10*3/uL [facility] RBC (Bld) [#/Vol] 4.89 10*6/uL 3.80 - 5.20 10*6/uL [facility] WBC (Bld) [#/Vol] 7.3 10*3/uL 3.6 - 10.7 10*3/uL [facility] CBC WITH AUTO DIFFERENTIALon 01-14-2025 Basophils (Bld) [#/Vol] 0.0 10*3/uL Normal 0.0-0.2 [facility] Comment on above: Performed By: #### L [id number] ####Lace Cutter: ERIKA ANGELO ([id number])[facility] ([facility])[address] [place] [address] [place] Basophils/100 WBC (Bld) 0.5 % Normal 0.0-2.0 [facility] Comment on above: Performed By: #### L [id number] ####Lace Cutter: ERIKA ANGELO ([id number])[facility] ([facility])[address] [place] [address] [place] Eosinophils (Bld) [#/Vol] 0.1 10*3/uL Normal 0.0-0.5 [facility] Comment on above: Performed By: #### L [id number] ####Lace Cutter: ERIKA ANGELO ([id number])[facility] ([facility])[address] [place] [address] [place] Eosinophils/100 WBC (Bld) 1.6 % Normal 0.0-6.0 [facility] Comment on above: Performed By: #### L [id number] ####Lace Cutter: ERIKA ANGELO ([id number])[facility] ([facility])[address] [place] [address] Erythrocyte distribution width (RBC) [Ratio] 14.8 % Normal 11.5-15.0 [facility] Comment on above: Performed By: #### L [id number] ####Lace Cutter: ERIKA ANGELO ([id number])[facility] ([facility])[address] [place] [address] Hematocrit (Bld) [Volume fraction] 42.9 % Normal 35.0-47.0 [facility] Comment on above: Performed By: #### L [id number] ####Lace Cutter: ERIKA ANGELO ([id number])[facility] ([facility])[address] [place] [address] Hemoglobin (Bld) [Mass/Vol] 13.5 g/dL Normal 11.7-16.0 [facility] Comment on above: Performed By: #### L [id number] ####Lace Cutter: ERIKA ANGELO ([id number])[facility] ([facility])[address] [place] [address] IMMATURE GRANS % 0.4 % Normal 0.0-2.0 [facility] Comment on above: Performed By: #### L [id number] ####Lace Cutter: ERIKA ANGELO ([id number])[facility] ([facility])[address] [place] [address] IMMATURE GRANS ABSOLUTE 0.0 10*3/uL Normal <0.1 [facility] Comment on above: Performed By: #### L [id number] ####Lace Cutter: ERIKA ANGELO ([id number])[facility] ([facility])[address] [place] [address] [place] Lymphocytes (Bld) [#/Vol] 2.3 10*3/uL Normal 1.0-4.3 [facility] Comment on above: Performed By: #### L [id number] ####Lace Cutter: ERIKA ANGELO ([id number])[facility] ([facility])[address] [place] [address] [place] Lymphocytes/100 WBC (Bld) 31.7 % Normal 15.0-45.0 [facility] Comment on above: Performed By: #### L [id number] ####Lace Cutter: ERIKA ANGELO ([id number])[facility] ([facility])[address] [place] [address] MCH (RBC) [Entitic mass] 27.6 pg Normal 26.0-34.0 [facility] Comment on above: Performed By: #### L [id number] ####Lace Cutter: ERIKA ANGELO ([id number])[facility] ([facility])[address] [place] [address] MCHC 31.5 % Normal 30.5-36.0 [facility] Comment on above: Performed By: #### L [id number] ####Lace Cutter: ERIKA ANGELO ([id number])[facility] ([facility])[address] [place] [address] MCV (RBC) [Entitic vol] 87.7 fL Normal 77.0-99.0 [facility] Comment on above: Performed By: #### L [id number]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 (promyelocytes, myelocytes and metamyelocytes) > 1% indicates that a LEFT SHIFT is Present. Performed By: #### L 500.4050, L100.0500 #### [facility] [address] [place], [address] Lymphocytes/100 WBC (Bld) 34.7 % Normal 19-41 [facility] Comment on above: Order Comment: 302.1 Performed By: #### L 500.4050, L100.0500 #### [facility] [address] [place], [address] MCH (RBC) [Entitic mass] 27.5 pg Normal 27.0-32.0 [facility] Comment on above: Order Comment: 302.1 Performed By: #### L 500.4050, L100.0500 #### [facility] [address] [place], [address] MCHC (RBC) [Mass/Vol] 30.7 g/dL Low 32-36 [facility] Comment on above: Order Comment: 302.1 Performed By: #### L 500.4050, L100.0500 #### [facility] [address] [place], [address] MCV (RBC) [Entitic vol] 89.4 fL Normal 81-99 [facility] Comment on above: Order Comment: 302.1 Performed By: #### L 500.4050, L100.0500 #### [facility] [address] [place], [address] Monocytes/100 WBC (Bld) 8.9 % Normal 0-10 [facility] Comment on above: Order Comment: 302.1 Performed By: #### L 500.4050, L100.0500 #### [facility] [address] [place], [address] Neutrophils/100 WBC (Bld) 53.8 % Normal 47-70 [facility] Comment on above: Order Comment: 302.1 Performed By: #### L 500.4050, L100.0500 #### [facility] [address] [place], [address] Nucleated RBC (Bld) [#/Vol] 0 10*3/uL Normal 0-5 [facility] Comment on above: Order Comment: 302.1 Performed By: #### L 500.4050, L100.0500 #### [facility] [address] [place], [address] Platelet mean volume (Bld) [Entitic vol] 10.8 fL Normal 6.2-12.0 [facility] Comment on above: Order Comment: 302.1 Performed By: #### L 500.4050, L100.0500 #### [facility] [address] [place], [address] Platelets (Bld) [#/Vol] 345 10*3/uL Normal 150-450 [facility] Comment on above: Order Comment: 302.1 Performed By: #### L 500.4050, L100.0500 #### [facility] [address] [place], [address] RBC (Bld) [#/Vol] 4.15 10*6/uL Low 4.2-5.4 [facility] Comment on above: Order Comment: 302.1 Performed By: #### L 500.4050, L100.0500 #### [facility] [address] [place], [address] RDW SD 49.8 fl High 35.1-43.9 [facility] Comment on above: Order Comment: 302.1 Performed By: #### L 500.4050, L100.0500 #### [facility] [address] [place], [address] WBC (Bld) [#/Vol] 7.9 10*3/uL Normal 4.4-11.0 [facility] Comment on above: Order Comment: 302.1 Performed By: #### L 500.4050, L100.0500 #### [facility] [address] [place], [address] Eosinophil percentageOrdered By: Venkat Malin on 12-11-2024 Eosinophils/100 WBC (Bld) 1.8 % 0-5 [facility] Erythrocyte distribution wid th ratioOrdered By: Venkat Malin on 12-11-2024 Erythrocyte distribution width (RBC) [Ratio] 15.2 % High 11.6-14.6 [facility] Erythrocyte distribution wid th standard deviationOrdered By: Venkat Malin on 12-11-2024 Erythrocyte distribution width (RBC) [Ratio] 49.8 fl High 35.1-43.9 [facility] Hematocrit Auto (Bld) [Volum e fraction]Ordered By: Venkat Malin on 12-11-2024 Hematocrit (Bld) [Volume fraction] 37.1 % 37-47 [facility] Hemoglobin measurementOrdere d By: Venkat Malin on 12-11-2024 Hemoglobin (Bld) [Mass/Vol] 11.4 g/dL Low 12.0-15.0 [facility] Immature granulocytes/100 WB C Auto (Bld)Ordered By: Venkat Malin on 12-11-2024 Immature granulocytes/100 WBC (Bld) 0.300 % 0.0-0.9 [facility] Comment on above: IG% - Immature Granu locytes (promyelocytes, myelocytes and metamyelocytes) > 1% indicates that a LEFT SHIFT is Present. MCV (mean corpuscular volume ) determinationOrdered By: Venkat Malin on 12-11-2024 MCV (RBC) [Entitic vol] 89.4 fL 81-99 [facility] Mean corpuscular hemoglobin (MCH) determinationOrdered By: Venkat Malin on 12-11-2024 MCH (RBC) [Entitic mass] 27.5 pg 27.0-32.0 [facility] Mean corpuscular hemoglobin concentration (MCHC) determinationOrdered By: Venkat Malin on 12-11-2024 MCHC (RBC) [Mass/Vol] 30.7 g/dL Low 32-36 [facility] Mean platelet volume determi nationOrdered By: Venkat Malin on 12-11-2024 Platelet mean volume (Bld) [Entitic vol] 10.8 fL 6.2-12.0 [facility] Monocyte percentageOrdered B y: Venkat Malin on 12-11-2024 Monocytes/100 WBC (Bld) 8.9 % 0-10 [facility] Neutrophil percentageOrdered By: Venkat Malin on 12-11-2024 Neutrophils/100 WBC (Bld) 53.8 % 47-70 [facility] Nucleated red blood cell per centageOrdered By: Venkat Malin on 12-11-2024 Nucleated RBC/100 WBC (Bld) [Ratio] 0 % 0-5 [facility] Platelet countOrdered By: Dov Gonzalez on 12-11-2024 Platelets (Bld) [#/Vol] 345 10*3/uL 150-450 [facility] RBC Auto (Bld) [#/Vol]Ordere d By: Venkat Malin on 12-11-2024 RBC (Bld) [#/Vol] 4.15 10*6/uL Low 4.2-5.4 [facility] White blood cell (WBC) count Ordered By: Venkat Malin on 12-11-2024 WBC (Bld) [#/Vol] 7.9 10*3/uL 4.4-11.0 [facility] Anion gap in Serum or Plasma Ordered By: Venkat Malin on 10-24-2024 Anion gap [Moles/Vol] 10 mmol/L 5-15 [facility] BUN/creatinine ratioOrdered By: Venkat Malin on 10-24-2024 Urea nitrogen/Creatinine [Mass ratio] 21.5 mg/mg High 10-20 [facility] Bilirubin, totalOrdered By: Venkat Malin on 10-24-2024 Bilirubin [Mass/Vol] 0.18 mg/dL 0.00-1.30 [facility] CBC-Complete Blood Cnt No Di ffon 10-24-2024 Erythrocyte distribution width (RBC) [Ratio] 15.2 % High 11.6-14.6 [facility] Comment on above: Order Comment: 302.1 Performed By: #### L 500.4050, L100.0500 #### [facility] [address] [place], [address] Hematocrit (Bld) [Volume fraction] 41.1 % Normal 37-47 [facility] Comment on above: Order Comment: 302.1 Performed By: #### L 500.4050, L100.0500 #### [facility] [address] [place], [address] Hemoglobin (Bld) [Mass/Vol] 12.7 g/dL Normal 12.0-15.0 [facility] Comment on above: Order Comment: 302.1 Performed By: #### L 500.4050, L100.0500 #### [facility] [address] [place], [address] MCH (RBC) [Entitic mass] 27.5 pg Normal 27.0-32.0 [facility] Comment on above: Order Comment: 302.1 Performed By: #### L 500.4050, L100.0500 #### [facility] [address] [place], [address] MCHC (RBC) [Mass/Vol] 30.9 g/dL Low 32-36 [facility] Comment on above: Order Comment: 302.1 Performed By: #### L 500.4050, L100.0500 #### [facility] [address] [place], [address] MCV (RBC) [Entitic vol] 89.0 fL Normal 81-99 [facility] Comment on above: Order Comment: 302.1 Performed By: #### L 500.4050, L100.0500 #### [facility] [address] [place], [address] Platelet mean volume (Bld) [Entitic vol] 11.1 fL Normal 6.2-12.0 [facility] Comment on above: Order Comment: 302.1 Performed By: #### L 500.4050, L100.0500 #### [facility] [address] [place], [address] Platelets (Bld) [#/Vol] 348 10*3/uL Normal 150-450 [facility] Comment on above: Order Comment: 302.1 Performed By: #### L 500.4050, L100.0500 #### [facility] [address] [place], [address] RBC (Bld) [#/Vol] 4.62 10*6/uL Normal 4.2-5.4 [facility] Comment on above: Order Comment: 302.1 Performed By: #### L 500.4050, L100.0500 #### [facility] [address] [place], [address] RDW SD 49.9 fl High 35.1-43.9 [facility] Comment on above: Order Comment: 302.1 Performed By: #### L 500.4050, L100.0500 #### [facility] [address] [place], [address] WBC (Bld) [#/Vol] 7.9 10*3/uL Normal 4.4-11.0 [facility] Comment on above: Order Comment: 302.1 Performed By: #### L 500.4050, L100.0500 #### [facility] [address] [place], [address] Carbon dioxide, total [Moles /volume] in Central venous bloodOrdered By: Venkat Malin on 10-24-2024 CO2 [Moles/Vol] 21.9 mmol/L 21.0-32.0 [facility] Chloride assayOrdered By: Dov Gonzalez on 10-24-2024 Chloride [Moles/Vol] 108 mmol/L 98-108 [facility] Comprehensive Metabolic Prof ilon 10-24-2024 Albumin [Mass/Vol] 3.0 g/dL Low 3.5-5.0 [facility] Comment on above: Order Comment: 302.1 Performed By: #### L 500.4050, L100.0500 #### [facility] [address] [place], [address] Albumin/Globulin [Mass ratio] 0.7 {ratio} Low 0.9-2.4 [facility] Comment on above: Order Comment: 302.1 Performed By: #### L 500.4050, L100.0500 #### [facility] [address] [place], [address] ALK PHOS 130 U/L High 35-104 [facility] Comment on above: Order Comment: 302.1 Performed By: #### L 500.4050, L100.0500 #### [facility] [address] [place], [address] ALT [Catalytic activity/Vol] 15 U/L Normal <=34 [facility] Comment on above: Order Comment: 302.1 Performed By: #### L 500.4050, L100.0500 #### [facility] [address] [place], [address] AST [Catalytic activity/Vol] 22 U/L Normal <=31 [facility] Comment on above: Order Comment: 302.1 Performed By: #### L 500.4050, L100.0500 #### [facility] [address] [place], [address] Bilirubin [Mass/Vol] 0.18 mg/dL Normal 0.00-1.30 [facility] Comment on above: Order Comment: 302.1 Performed By: #### L 500.4050, L100.0500 #### [facility] [address] [place], [address] BUN/CRE 21.5 RATIO High 10-20 [facility] Comment on above: Order Comment: 302.1 Performed By: #### L 500.4050, L100.0500 #### [facility] [address] [place], [address] Calcium [Mass/Vol] 8.7 mg/dL Normal 7.6-11.0 [facility] Comment on above: Order Comment: 302.1 Performed By: #### L 500.4050, L100.0500 #### [facility] [address] [place], [address] Chloride [Moles/Vol] 108 mmol/L Normal 98-108 [facility] Comment on above: Order Comment: 302.1 Performed By: #### L 500.4050, L100.0500 #### [facility] [address] [place], [address] CO2 [Moles/Vol] 21.9 mmol/L Normal 21.0-32.0 [facility] Comment on above: Order Comment: 302.1 Performed By: #### L 500.4050, L100.0500 #### [facility] [address] [place], [address] Creatinine [Mass/Vol] 0.67 mg/dL Low 0.70-1.20 [facility] Comment on above: Order Comment: 302.1 Performed By: #### L 500.4050, L100.0500 #### [facility] [address] [place], [address] GAP 10 Normal 5-15 [facility] Comment on above: Order Comment: 302.1 Performed By: #### L 500.4050, L100.0500 #### [facility] [address] [place], [address] GFR/1.73 sq M.predicted among non-blacks MDRD (S/P/Bld) [Vol rate/Area] 107 mL/min/{1.73_m2} Normal >60 [facility] Comment on above: Order Comment: 302.1 Result Comment: mL/m in/1.73m2 CKD-EPI Creatinine Equation (2020) Performed By: #### L 500.4050, L100.0500 #### [facility] [address] [place], [address] Globulin (S) [Mass/Vol] 4.3 g/dL High 2.2-4.2 [facility] Comment on above: Order Comment: 302.1 Performed By: #### L 500.4050, L100.0500 #### [facility] [address] [place], [address] Glucose [Mass/Vol] 90 mg/dL Normal 70-99 [facility] Comment on above: Order Comment: 302.1 Performed By: #### L 500.4050, L100.0500 #### [facility] [address] [place], [address] Potassium [Moles/Vol] 3.9 mmol/L Normal 3.3-5.1 [facility] Comment on above: Order Comment: 302.1 Result Comment: Hemo lysis present, Results??could be affected. ?? Performed By: #### L 500.4050, L100.0500 #### [facility] [address] [place], [address] Sodium [Moles/Vol] 140 mmol/L Normal 133-145 [facility] Comment on above: Order Comment: 302.1 Performed By: #### L 500.4050, L100.0500 #### [facility] [address] [place], [address] T PROT 7.3 g/dL Normal 5.9-8.4 [facility] Comment on above: Order Comment: 302.1 Performed By: #### L 500.4050, L100.0500 #### [facility] [address] [place], [address] Urea nitrogen [Mass/Vol] 15 mg/dL Normal 4-19 [facility] Comment on above: Order Comment: 302.1 Performed By: #### L 500.4050, L100.0500 #### [facility] [address] [place], [address] Erythrocyte distribution wid th (RBC) [Ratio]Ordered By: Venkat Malin on 10-24-2024 Erythrocyte distribution width (RBC) [Entitic vol] 49.9 fL High 35.1-43.9 [facility] Erythrocyte distribution wid th ratioOrdered By: Venkat Malin on 10-24-2024 Erythrocyte distribution width (RBC) [Ratio] 15.2 % High 11.6-14.6 [facility] Erythrocyte distribution wid th standard deviationOrdered By: Venkat Malin on 10-24-2024 Erythrocyte distribution width (RBC) [Ratio] 49.9 fl High 35.1-43.9 [facility] GFR/1.73 sq M.predicted jose g non-blacks MDRD (S/P/Bld) [Vol rate/Area]Ordered By: Venkat Malin on 10-24-2024 Estimated GFR (MDRD) Non-Af Amer 107 >60 [facility] Comment on above: mL/min/1.73m2 CKD-EP I Creatinine Equation (2020) Glomerular filtration rate ( GFR) estimation/1.73 sq m using serum, plasma, or whole bOrdered By: Venkat Malin on 10-24-2024 GFR/1.73 sq M.predicted among non-blacks MDRD (S/P/Bld) [Vol rate/Area] 107 mL/min/{1.73_m2} >60 [facility] Comment on above: mL/min/1.73m2 CKD-EP I Creatinine Equation (2020) Hematocrit Auto (Bld) [Volum e fraction]Ordered By: Venkat Malin on 10-24-2024 Hematocrit (Bld) [Volume fraction] 41.1 % 37-47 [facility] Hemoglobin measurementOrdere d By: Venkat Malin on 10-24-2024 Hemoglobin (Bld) [Mass/Vol] 12.7 g/dL 12.0-15.0 [facility] - Chemistry and C hemistry - challengeOrdered By: Venkat Malin on 10-24-2024 AST [Catalytic activity/Vol] 22 U/L <32 [facility] MCV (mean corpuscular volume ) determinationOrdered By: Venkat Malin on 10-24-2024 MCV (RBC) [Entitic vol] 89.0 fL 81-99 [facility] Mean corpuscular hemoglobin (MCH) determinationOrdered By: Venkat Malin on 10-24-2024 MCH (RBC) [Entitic mass] 27.5 pg 27.0-32.0 [facility] Mean corpuscular hemoglobin concentration (MCHC) determinationOrdered By: Venkat Malin on 10-24-2024 MCHC (RBC) [Mass/Vol] 30.9 g/dL Low 32-36 [facility] Mean platelet volume determi nationOrdered By: Venkat Malin on 10-24-2024 Platelet mean volume (Bld) [Entitic vol] 11.1 fL 6.2-12.0 [facility] Platelet countOrdered By: Dov Gonzalez on 10-24-2024 Platelets (Bld) [#/Vol] 348 10*3/uL 150-450 [facility] Potassium (Unsp spec) [Mass/ Vol]Ordered By: Venkat Malin on 10-24-2024 Potassium [Moles/Vol] 3.9 mmol/L 3.3-5.1 [facility] Comment on above: Hemolysis present, R esults could be affected. Potassium measurement (mass/ volume)Ordered By: Venkat Malin on 10-24-2024 Potassium (Unsp spec) [Mass/Vol] 3.9 mmol/L 3.3-5.1 [facility] Comment on above: Hemolysis present, R esults could be affected. RBC Auto (Bld) [#/Vol]Ordere d By: Venkat Malin on 10-24-2024 RBC (Bld) [#/Vol] 4.62 10*6/uL 4.2-5.4 [facility] Serum creatinine measurement (mass/volume)Ordered By: Venkat Malin on 10-24-2024 Creatinine [Mass/Vol] 0.67 mg/dL Low 0.70-1.20 [facility] Serum globulin measurementOr dered By: Venkat Malin on 10-24-2024 Globulin (S) [Mass/Vol] 4.3 g/dL High 2.2-4.2 [facility] Serum glucose measurement (m ass/volume)Ordered By: Venkat Malin on 10-24-2024 Glucose [Mass/Vol] 90 mg/dL 70-99 [facility] Serum or plasma alanine gregorio otransferase (ALT) measurementOrdered By: Venkat Malin on 10-24-2024 ALT [Catalytic activity/Vol] 15 U/L <35 [facility] Serum or plasma albumin kavin urement (mass/volume)Ordered By: Venkat Malin on 10-24-2024 Albumin [Mass/Vol] 3.0 g/dL Low 3.5-5.0 [facility] Serum or plasma albumin/glob ulin mass ratioOrdered By: Venkat Malin on 10-24-2024 Albumin/Globulin [Mass ratio] 0.7 {ratio} Low 0.9-2.4 [facility] Serum or plasma alkaline raymond sphatase measurementOrdered By: Venkat Malin on 10-24-2024 ALP [Catalytic activity/Vol] 130 U/L High 35-104 [facility] Serum or plasma calcium kavin urement (mass/volume)Ordered By: Venkat Malin on 10-24-2024 Calcium [Mass/Vol] 8.7 mg/dL 7.6-11.0 [facility] Serum or plasma urea nitroge n measurement (mass/volume)Ordered By: Venkat Malin on 10-24-2024 Urea nitrogen [Mass/Vol] 15 mg/dL 4-19 [facility] Sodium levelOrdered By: Sai Malin on 10-24-2024 Sodium [Moles/Vol] 140 mmol/L 133-145 [facility] Total proteinOrdered By: Sarah Malin on 10-24-2024 Protein [Mass/Vol] 7.3 g/dL 5.9-8.4 [facility] White blood cell (WBC) count Ordered By: Venkat Malin on 10-24-2024 WBC (Bld) [#/Vol] 7.9 10*3/uL 4.4-11.0 [facility] Albumin to globulin ratioOrd ered By: Venkat Malin on 09-03-2024 Albumin/Globulin [Mass ratio] 0.5 {ratio} Low 0.9-2.4 [facility] Bilirubin, totalOrdered By: Venkat Malin on 09-03-2024 Bilirubin [Mass/Vol] 0.20 mg/dL 0.20-1.00 [facility] Comment on above: For patients on eltr ombopag therapy, use of Dimension [place] TBIL is not recommended. Blood urea nitrogen (BUN)/cr eatinine ratioOrdered By: Venkat Malin on 09-03-2024 Urea nitrogen/Creatinine [Mass ratio] 24.2 mg/mg High 10-20 [facility] CBC-Complete Blood Cnt No Di ffon 09-03-2024 Erythrocyte distribution width (RBC) [Ratio] 15.0 % High 11.6-14.6 [facility] Comment on above: Order Comment: 302.1 Performed By: #### L 500.4050, L100.0500 #### [facility] [address] [place], [address] Hematocrit (Bld) [Volume fraction] 37.9 % Normal 37-47 [facility] Comment on above: Order Comment: 302.1 Performed By: #### L 500.4050, L100.0500 #### [facility] [address] [place], [address] Hemoglobin (Bld) [Mass/Vol] 11.6 g/dL Low 12.0-15.0 [facility] Comment on above: Order Comment: 302.1 Performed By: #### L 500.4050, L100.0500 #### [facility] [address] [place], [address] MCH (RBC) [Entitic mass] 27.4 pg Normal 27.0-32.0 [facility] Comment on above: Order Comment: 302.1 Performed By: #### L 500.4050, L100.0500 #### [facility] [address] [place], [address] MCHC (RBC) [Mass/Vol] 30.6 g/dL Low 32-36 [facility] Comment on above: Order Comment: 302.1 Performed By: #### L 500.4050, L100.0500 #### [facility] [address] [place], [address] MCV (RBC) [Entitic vol] 89.4 fL Normal 81-99 [facility] Comment on above: Order Comment: 302.1 Performed By: #### L 500.4050, L100.0500 #### [facility] [address] [place], [address] Platelet mean volume (Bld) [Entitic vol] 11.2 fL Normal 6.2-12.0 [facility] Comment on above: Order Comment: 302.1 Performed By: #### L 500.4050, L100.0500 #### [facility] [address] [place], [address] Platelets (Bld) [#/Vol] 344 10*3/uL Normal 150-450 [facility] Comment on above: Order Comment: 302.1 Performed By: #### L 500.4050, L100.0500 #### [facility] [address] [place], [address] RBC (Bld) [#/Vol] 4.24 10*6/uL Normal 4.2-5.4 [facility] Comment on above: Order Comment: 302.1 Performed By: #### L 500.4050, L100.0500 #### [facility] [address] [place], [address] RDW SD 49.1 fl High 35.1-43.9 [facility] Comment on above: Order Comment: 302.1 Performed By: #### L 500.4050, L100.0500 #### [facility] [address] [place], [address] WBC (Bld) [#/Vol] 7.0 10*3/uL Normal 4.4-11.0 [facility] Comment on above: Order Comment: 302.1 Performed By: #### L 500.4050, L100.0500 #### [facility] [address] [place], [address] Carbon dioxide measurementOr dered By: Venkat Malin on 09-03-2024 CO2 [Moles/Vol] 23.0 mmol/L 21.0-32.0 [facility] Chloride measurementOrdered By: Venkat Malin on 09-03-2024 Chloride [Moles/Vol] 109 mmol/L High 98-107 [facility] Comprehensive Metabolic Prof ilon 09-03-2024 Albumin [Mass/Vol] 2.3 g/dL Low 3.2-5.0 [facility] Comment on above: Order Comment: 302.1 Performed By: #### L 500.4050, L100.0500 #### [facility] [address] [place], [address] Albumin/Globulin [Mass ratio] 0.5 {ratio} Low 0.9-2.4 [facility] Comment on above: Order Comment: 302.1 Performed By: #### L 500.4050, L100.0500 #### [facility] [address] [place], [address] ALK P 116 U/L Normal 45-117 [facility] Comment on above: Order Comment: 302.1 Performed By: #### L 500.4050, L100.0500 #### [facility] [address] [place], [address] ALT [Catalytic activity/Vol] 15 U/L Normal 13-56 [facility] Comment on above: Order Comment: 302.1 Performed By: #### L 500.4050, L100.0500 #### [facility] [address] [place], [address] AST [Catalytic activity/Vol] 13 U/L Low 15-37 [facility] Comment on above: Order Comment: 302.1 Performed By: #### L 500.4050, L100.0500 #### [facility] [address] [place], [address] Bilirubin [Mass/Vol] 0.20 mg/dL Normal 0.20-1.00 [facility] Comment on above: Order Comment: 302.1 Result Comment: For patients on eltrombopag therapy, use of Dimension [place] TBIL is not recommended. Performed By: #### L 500.4050, L100.0500 #### [facility] [address] [place], [address] BUN/CRE 24.2 RATIO High 10-20 [facility] Comment on above: Order Comment: 302.1 Performed By: #### L 500.4050, L100.0500 #### [facility] [address] [place], [address] CA,Total 8.8 mg/dL Normal 8.5-10.1 [facility] Comment on above: Order Comment: 302.1 Performed By: #### L 500.4050, L100.0500 #### [facility] [address] [place], [address] Chloride [Moles/Vol] 109 mmol/L High 98-107 [facility] Comment on above: Order Comment: 302.1 Performed By: #### L 500.4050, L100.0500 #### [facility] [address] [place], [address] CO2 [Moles/Vol] 23.0 mmol/L Normal 21.0-32.0 [facility] Comment on above: Order Comment: 302.1 Performed By: #### L 500.4050, L100.0500 #### [facility] [address] [place], [address] Creatinine [Mass/Vol] 0.79 mg/dL Normal 0.55-1.02 [facility] Comment on above: Order Comment: 302.1 Result Comment: The validity of the calculated GFR GFRAA in patients over 70 years has not been determined. Clinical correlation is essential. Performed By: #### L 500.4050, L100.0500 #### [facility] [address] [place], [address] EST GFR - AA 100 mL/min Normal >60 [facility] Comment on above: Order Comment: 302.1 Result Comment: Afri can [place] GFR Calc Performed By: #### L 500.4050, L100.0500 #### [facility] [address] [place], [address] GAP 6 Normal 5-15 [facility] Comment on above: Order Comment: 302.1 Performed By: #### L 500.4050, L100.0500 #### [facility] [address] [place], [address] GFR/1.73 sq M.predicted among non-blacks MDRD (S/P/Bld) [Vol rate/Area] 83 mL/min/{1.73_m2} Normal >60 [facility] Comment on above: Order Comment: 302.1 Result Comment: Non- GFR Calc Performed By: #### L 500.4050, L100.0500 #### [facility] [address] [place], [address] Globulin (S) [Mass/Vol] 5.1 g/dL High 2.2-4.2 [facility] Comment on above: Order Comment: 302.1 Performed By: #### L 500.4050, L100.0500 #### [facility] [address] [place], [address] Glucose [Mass/Vol] 84 mg/dL Normal 74-106 [facility] Comment on above: Order Comment: 302.1 Performed By: #### L 500.4050, L100.0500 #### [facility] [address] [place], [address] Potassium [Moles/Vol] 3.7 mmol/L Normal 3.5-5.1 [facility] Comment on above: Order Comment: 302.1 Performed By: #### L 500.4050, L100.0500 #### [facility] [address] [place], [address] Sodium [Moles/Vol] 138 mmol/L Normal 136-145 [facility] Comment on above: Order Comment: 302.1 Performed By: #### L 500.4050, L100.0500 #### [facility] [address] [place], [address] T PROT 7.4 g/dL Normal 6.4-8.2 [facility] Comment on above: Order Comment: 302.1 Performed By: #### L 500.4050, L100.0500 #### [facility] [address] [place], [address] Urea nitrogen [Mass/Vol] 19 mg/dL High 7-18 [facility] Comment on above: Order Comment: 302.1 Performed By: #### L 500.4050, L100.0500 #### [facility] [address] [place], [address] Erythrocyte distribution wid th ratioOrdered By: Venkat Malin on 09-03-2024 Erythrocyte distribution width (RBC) [Ratio] 15.0 % High 11.6-14.6 [facility] Erythrocyte distribution wid th standard deviationOrdered By: Venkat Malin on 09-03-2024 Erythrocyte distribution width (RBC) [Entitic vol] 49.1 fL High 35.1-43.9 [facility] Erythrocyte distribution width (RBC) [Ratio] 49.1 fl High 35.1-43.9 [facility] Estimated glomerular filtrat ion rate (GFR) AmericanOrdered By: Venkat Malin on 09-03-2024 Estimated GFR (MDRD) Amer 100 mL/min >60 [facility] Comment on above: GFR Calc Glomerular filtration rate ( GFR) estimationOrdered By: Venkat Malin on 09-03-2024 Estimated GFR (MDRD) Non-Af Amer 83 mL/min >60 [facility] Comment on above: Non- GFR Calc GFR/1.73 sq M.predicted among non-blacks MDRD (S/P/Bld) [Vol rate/Area] 83 mL/min/{1.73_m2} >60 [facility] Comment on above: Non- GFR Calc Glucose measurementOrdered B y: Venkat Malin on 09-03-2024 Glucose [Mass/Vol] 84 mg/dL 74-106 [facility] Hematocrit Auto (Bld) [Volum e fraction]Ordered By: Venkat Malin on 09-03-2024 Hematocrit (Bld) [Volume fraction] 37.9 % 37-47 [facility] Hemoglobin measurementOrdere d By: Venkat Malin on 09-03-2024 Hemoglobin (Bld) [Mass/Vol] 11.6 g/dL Low 12.0-15.0 [facility] - Chemistry and C hemistry - challengeOrdered By: Venkat Malin on 09-03-2024 AST [Catalytic activity/Vol] 13 U/L Low 15-37 [facility] MCV (mean corpuscular volume ) determinationOrdered By: Venkat Malin on 09-03-2024 MCV (RBC) [Entitic vol] 89.4 fL 81-99 [facility] Mean corpuscular hemoglobin (MCH) determinationOrdered By: Venkat Malin on 09-03-2024 MCH (RBC) [Entitic mass] 27.4 pg 27.0-32.0 [facility] Mean corpuscular hemoglobin concentration (MCHC) determinationOrdered By: Venkat Malin on 09-03-2024 MCHC (RBC) [Mass/Vol] 30.6 g/dL Low 32-36 [facility] Mean platelet volume determi nationOrdered By: Venkat Malin on 09-03-2024 Platelet mean volume (Bld) [Entitic vol] 11.2 fL 6.2-12.0 [facility] Platelet countOrdered By: Dov Gonzalez on 09-03-2024 Platelets (Bld) [#/Vol] 344 10*3/uL 150-450 [facility] Potassium measurementOrdered By: Venkat Malin on 09-03-2024 Potassium [Moles/Vol] 3.7 mmol/L 3.5-5.1 [facility] RBC Auto (Bld) [#/Vol]Ordere d By: Venkat Malin on 09-03-2024 RBC (Bld) [#/Vol] 4.24 10*6/uL 4.2-5.4 [facility] Serum anion gap measurementO rdered By: Venkat Malin on 09-03-2024 Anion gap [Moles/Vol] 6 mmol/L 5-15 [facility] Serum globulin measurementOr dered By: Venkat Malin on 09-03-2024 Globulin (S) [Mass/Vol] 5.1 g/dL High 2.2-4.2 [facility] Serum or plasma alanine gregorio otransferase (ALT) measurementOrdered By: Venkat Malin on 09-03-2024 ALT [Catalytic activity/Vol] 15 U/L 13-56 [facility] Serum or plasma albumin kavin urement (mass/volume)Ordered By: Venkat Malin on 09-03-2024 Albumin [Mass/Vol] 2.3 g/dL Low 3.2-5.0 [facility] Serum or plasma alkaline raymond sphatase measurementOrdered By: Venkat Malin on 09-03-2024 ALP [Catalytic activity/Vol] 116 U/L 45-117 [facility] Serum or plasma calcium kavin urement (mass/volume)Ordered By: Venkat Malin on 09-03-2024 Calcium [Mass/Vol] 8.8 mg/dL 8.5-10.1 [facility] Serum or plasma creatinine m easurement (mass/volume)Ordered By: Venkat Malin on 09-03-2024 Creatinine [Mass/Vol] 0.79 mg/dL 0.55-1.02 [facility] Comment on above: The validity of the calculated GFR & GFRAA in patients over 70 years has not been determined. Clinical correlation is essential. Serum or plasma urea nitroge n measurement (mass/volume)Ordered By: Venkat Malin on 09-03-2024 Urea nitrogen [Mass/Vol] 19 mg/dL High 7- [facility] Sodium levelOrdered By: Sai Malin on 09-03-2024 Sodium [Moles/Vol] 138 mmol/L 136-145 [facility] Total proteinOrdered By: Sarah Malin on 09-03-2024 Protein [Mass/Vol] 7.4 g/dL 6.4-8.2 [facility] White blood cell (WBC) count Ordered By: Venkat Malin on 09-03-2024 WBC (Bld) [#/Vol] 7.0 10*3/uL 4.4-11.0 [facility] Albumin to globulin ratioOrd ered By: Venkat Malin on 07-25-2024 Albumin/Globulin [Mass ratio] 0.5 {ratio} Low 0.9-2.4 [facility] Bilirubin, totalOrdered By: Venkat Malin on 07-25-2024 Bilirubin [Mass/Vol] 0.20 mg/dL 0.20-1.00 [facility] Comment on above: For patients on eltr ombopag therapy, use of Dimension [place] TBIL is not recommended. Blood urea nitrogen (BUN)/cr eatinine ratioOrdered By: Venkat Malin on 07-25-2024 Urea nitrogen/Creatinine [Mass ratio] 22.3 mg/mg High 10- [facility] CBC-Complete Blood Cnt No Di ffon 07-25-2024 Erythrocyte distribution width (RBC) [Ratio] 14.9 % High 11.6-14.6 [facility] Comment on above: Order Comment: 302.1 Performed By: #### L 500.4050, L100.0500 #### [facility] [address] [place], [address] Hematocrit (Bld) [Volume fraction] 38.9 % Normal 37-47 [facility] Comment on above: Order Comment: 302.1 Performed By: #### L 500.4050, L100.0500 #### [facility] [address] [place], [address] Hemoglobin (Bld) [Mass/Vol] 11.9 g/dL Low 12.0-15.0 [facility] Comment on above: Order Comment: 302.1 Performed By: #### L 500.4050, L100.0500 #### [facility] [address] [place], [address] MCH (RBC) [Entitic mass] 27.2 pg Normal 27.0-32.0 [facility] Comment on above: Order Comment: 302.1 Performed By: #### L 500.4050, L100.0500 #### [facility] [address] [place], [address] MCHC (RBC) [Mass/Vol] 30.6 g/dL Low 32-36 [facility] Comment on above: Order Comment: 302.1 Performed By: #### L 500.4050, L100.0500 #### [facility] [address] [place], [address] MCV (RBC) [Entitic vol] 89.0 fL Normal 81-99 [facility] Comment on above: Order Comment: 302.1 Performed By: #### L 500.4050, L100.0500 #### [facility] [address] [place], [address] Platelet mean volume (Bld) [Entitic vol] 10.7 fL Normal 6.2-12.0 [facility] Comment on above: Order Comment: 302.1 Performed By: #### L 500.4050, L100.0500 #### [facility] [address] [place], [address] Platelets (Bld) [#/Vol] 401 10*3/uL Normal 150-450 [facility] Comment on above: Order Comment: 302.1 Performed By: #### L 500.4050, L100.0500 #### [facility] [address] [place], [address] RBC (Bld) [#/Vol] 4.37 10*6/uL Normal 4.2-5.4 [facility] Comment on above: Order Comment: 302.1 Performed By: #### L 500.4050, L100.0500 #### [facility] [address] [place], [address] RDW SD 48.8 fl High 35.1-43.9 [facility] Comment on above: Order Comment: 302.1 Performed By: #### L 500.4050, L100.0500 #### [facility] [address] [place], [address] WBC (Bld) [#/Vol] 7.6 10*3/uL Normal 4.4-11.0 [facility] Comment on above: Order Comment: 302.1 Performed By: #### L 500.4050, L100.0500 #### [facility] [address] [place], [address] Carbon dioxide measurementOr dered By: Venkat Malin on 07-25-2024 CO2 [Moles/Vol] 26.0 mmol/L 21.0-32.0 [facility] Chloride measurementOrdered By: Venkat Malin on 07-25-2024 Chloride [Moles/Vol] 111 mmol/L High 98-107 [facility] Comprehensive Metabolic Prof ilon 07-25-2024 Albumin [Mass/Vol] 2.5 g/dL Low 3.2-5.0 [facility] Comment on above: Order Comment: 302.1 Performed By: #### L 500.4050, L100.0500 #### [facility] [address] [place], [address] Albumin/Globulin [Mass ratio] 0.5 {ratio} Low 0.9-2.4 [facility] Comment on above: Order Comment: 302.1 Performed By: #### L 500.4050, L100.0500 #### [facility] [address] [place], [address] ALK P 121 U/L High 45-117 [facility] Comment on above: Order Comment: 302.1 Performed By: #### L 500.4050, L100.0500 #### [facility] [address] [place], [address] ALT [Catalytic activity/Vol] 23 U/L Normal 13-56 [facility] Comment on above: Order Comment: 302.1 Performed By: #### L 500.4050, L100.0500 #### [facility] [address] [place], [address] AST [Catalytic activity/Vol] 21 U/L Normal 15-37 [facility] Comment on above: Order Comment: 302.1 Performed By: #### L 500.4050, L100.0500 #### [facility] [address] [place], [address] Bilirubin [Mass/Vol] 0.20 mg/dL Normal 0.20-1.00 [facility] Comment on above: Order Comment: 302.1 Result Comment: For patients on eltrombopag therapy, use of Dimension [place] TBIL is not recommended. Performed By: #### L 500.4050, L100.0500 #### [facility] [address] [place], [address] BUN/CRE 22.3 RATIO High 10-20 [facility] Comment on above: Order Comment: 302.1 Performed By: #### L 500.4050, L100.0500 #### [facility] [address] [place], [address] CA,Total 9.0 mg/dL Normal 8.5-10.1 [facility] Comment on above: Order Comment: 302.1 Performed By: #### L 500.4050, L100.0500 #### [facility] [address] [place], [address] Chloride [Moles/Vol] 111 mmol/L High 98-107 [facility] Comment on above: Order Comment: 302.1 Performed By: #### L 500.4050, L100.0500 #### [facility] [address] [place], [address] CO2 [Moles/Vol] 26.0 mmol/L Normal 21.0-32.0 [facility] Comment on above: Order Comment: 302.1 Performed By: #### L 500.4050, L100.0500 #### [facility] [address] [place], [address] Creatinine [Mass/Vol] 0.72 mg/dL Normal 0.55-1.02 [facility] Comment on above: Order Comment: 302.1 Result Comment: The validity of the calculated GFR GFRAA in patients over 70 years has not been determined. Clinical correlation is essential. Performed By: #### L 500.4050, L100.0500 #### [facility] [address] [place], [address] EST GFR - AA 112 mL/min Normal >60 [facility] Comment on above: Order Comment: 302.1 Result Comment: Afri can [place]an GFR Calc Performed By: #### L 500.4050, L100.0500 #### [facility] [address] [place], [address] GAP 3 Low 5-15 [facility] Comment on above: Order Comment: 302.1 Performed By: #### L 500.4050, L100.0500 #### [facility] [address] [place], [address] GFR/1.73 sq M.predicted among non-blacks MDRD (S/P/Bld) [Vol rate/Area] 92 mL/min/{1.73_m2} Normal >60 [facility] Comment on above: Order Comment: 302.1 Result Comment: Non- GFR Calc Performed By: #### L 500.4050, L100.0500 #### [facility] [address] [place], [address] Globulin (S) [Mass/Vol] 5.0 g/dL High 2.2-4.2 [facility] Comment on above: Order Comment: 302.1 Performed By: #### L 500.4050, L100.0500 #### [facility] [address] [place], [address] Glucose [Mass/Vol] 104 mg/dL Normal 74-106 [facility] Comment on above: Order Comment: 302.1 Result Comment: Fast ing Glucose result from 100 to 125 mg/dL suggests IMPAIRED HOMEOSTASIS per A.D.A. criteria. Performed By: #### L 500.4050, L100.0500 #### [facility] [address] [place], [address] Potassium [Moles/Vol] 3.8 mmol/L Normal 3.5-5.1 [facility] Comment on above: Order Comment: 302.1 Performed By: #### L 500.4050, L100.0500 #### [facility] [address] [place], [address] Sodium [Moles/Vol] 140 mmol/L Normal 136-145 [facility] Comment on above: Order Comment: 302.1 Performed By: #### L 500.4050, L100.0500 #### [facility] [address] [place], [address] T PROT 7.5 g/dL Normal 6.4-8.2 [facility] Comment on above: Order Comment: 302.1 Performed By: #### L 500.4050, L100.0500 #### [facility] [address] [place], [address] Urea nitrogen [Mass/Vol] 16 mg/dL Normal 7-18 [facility] Comment on above: Order Comment: 302.1 Performed By: #### L 500.4050, L100.0500 #### [facility] [address] [place], [address] Erythrocyte distribution wid th ratioOrdered By: Venkat Malin on 07-25-2024 Erythrocyte distribution width (RBC) [Ratio] 14.9 % High 11.6-14.6 [facility] Erythrocyte distribution wid th standard deviationOrdered By: Venkat Malin on 07-25-2024 Erythrocyte distribution width (RBC) [Entitic vol] 48.8 fL High 35.1-43.9 [facility] Estimated glomerular filtrat ion rate (GFR) AmericanOrdered By: Venkat Malin on 07-25-2024 Estimated GFR (MDRD) Amer 112 mL/min >60 [facility] Comment on above: GFR Calc Glomerular filtration rate ( GFR) estimationOrdered By: Venkat Malni on 07-25-2024 Estimated GFR (MDRD) Non-Af Amer 92 mL/min >60 [facility] Comment on above: Non- GFR Calc Glucose measurementOrdered B y: Venkat Malin on 07-25-2024 Glucose [Mass/Vol] 104 mg/dL 74-106 [facility] Comment on above: Fasting Glucose resu lt from 100 to 125 mg/dL suggests IMPAIRED HOMEOSTASIS per A.D.A. criteria. Hematocrit Auto (Bld) [Volum e fraction]Ordered By: Venkat Malin on 07-25-2024 Hematocrit (Bld) [Volume fraction] 38.9 % 37-47 [facility] Hemoglobin measurementOrdere d By: Venkat Malin on 07-25-2024 Hemoglobin (Bld) [Mass/Vol] 11.9 g/dL Low 12.0-15.0 [facility] - Chemistry and C hemistry - challengeOrdered By: Venkat Malin on 07-25-2024 AST [Catalytic activity/Vol] 21 U/L 15-37 [facility] MCV (mean corpuscular volume ) determinationOrdered By: Venkat Malin on 07-25-2024 MCV (RBC) [Entitic vol] 89.0 fL 81-99 [facility] Mean corpuscular hemoglobin (MCH) determinationOrdered By: Venkat Malin on 07-25-2024 MCH (RBC) [Entitic mass] 27.2 pg 27.0-32.0 [facility] Mean corpuscular hemoglobin concentration (MCHC) determinationOrdered By: Venkat Malin on 07-25-2024 MCHC (RBC) [Mass/Vol] 30.6 g/dL Low 32-36 [facility] Mean platelet volume determi nationOrdered By: Venkat Malin on 07-25-2024 Platelet mean volume (Bld) [Entitic vol] 10.7 fL 6.2-12.0 [facility] Platelet countOrdered By: Dov Gonzalez on 07-25-2024 Platelets (Bld) [#/Vol] 401 10*3/uL 150-450 [facility] Potassium measurementOrdered By: Venkat Malin on 07-25-2024 Potassium [Moles/Vol] 3.8 mmol/L 3.5-5.1 [facility] RBC Auto (Bld) [#/Vol]Ordere d By: Venkat Malin on 07-25-2024 RBC (Bld) [#/Vol] 4.37 10*6/uL 4.2-5.4 [facility] Serum anion gap measurementO rdered By: Venkat Malin on 07-25-2024 Anion gap [Moles/Vol] 3 mmol/L Low 5-15 [facility] Serum globulin measurementOr dered By: Venkat Malni on 07-25-2024 Globulin (S) [Mass/Vol] 5.0 g/dL High 2.2-4.2 [facility] Serum or plasma alanine gregorio otransferase (ALT) measurementOrdered By: Venkat Malin on 07-25-2024 ALT [Catalytic activity/Vol] 23 U/L 13-56 [facility] Serum or plasma albumin kavin urement (mass/volume)Ordered By: Venkat Malin on 07-25-2024 Albumin [Mass/Vol] 2.5 g/dL Low 3.2-5.0 [facility] Serum or plasma alkaline raymond sphatase measurementOrdered By: Venkat Malin on 07-25-2024 ALP [Catalytic activity/Vol] 121 U/L High 45-117 [facility] Serum or plasma calcium kavin urement (mass/volume)Ordered By: Venkat Malin on 07-25-2024 Calcium [Mass/Vol] 9.0 mg/dL 8.5-10.1 [facility] Serum or plasma creatinine m easurement (mass/volume)Ordered By: Venkat Malin on 07-25-2024 Creatinine [Mass/Vol] 0.72 mg/dL 0.55-1.02 [facility] Comment on above: The validity of the calculated GFR & GFRAA in patients over 70 years has not been determined. Clinical correlation is essential. Serum or plasma urea nitroge n measurement (mass/volume)Ordered By: Venkat Malin on 07-25-2024 Urea nitrogen [Mass/Vol] 16 mg/dL 7-18 [facility] Sodium levelOrdered By: Sai Malin on 07-25-2024 Sodium [Moles/Vol] 140 mmol/L 136-145 [facility] Total proteinOrdered By: Sarah Malin on 07-25-2024 Protein [Mass/Vol] 7.5 g/dL 6.4-8.2 [facility] White blood cell (WBC) count Ordered By: Venkat Malin on 07-25-2024 WBC (Bld) [#/Vol] 7.6 10*3/uL 4.4-11.0 [facility] Albumin to globulin ratioOrd ered By: Venkat Malin on 06-24-2024 Albumin/Globulin [Mass ratio] 0.6 {ratio} Low 0.9-2.4 [facility] Bilirubin, totalOrdered By: Venkat Malin on 06-24-2024 Bilirubin [Mass/Vol] mg/dL Low 0.20-1.00 [facility] Comment on above: For patients on eltr ombopag therapy, use of Dimension [place] TBIL is not recommended. Blood urea nitrogen (BUN)/cr eatinine ratioOrdered By: Venkat Malin on 06-24-2024 Urea nitrogen/Creatinine [Mass ratio] 27.9 mg/mg High 10-20 [facility] CBC-Complete Blood Cnt No Di ffon 06-24-2024 Erythrocyte distribution width (RBC) [Ratio] 15.0 % High 11.6-14.6 [facility] Comment on above: Order Comment: 302-1 Performed By: #### L 500.4050, L100.0500 #### [facility] [address] [place], [address] Hematocrit (Bld) [Volume fraction] 38.9 % Normal 37-47 [facility] Comment on above: Order Comment: 302-1 Performed By: #### L 500.4050, L100.0500 #### [facility] [address] [place], [address] Hemoglobin (Bld) [Mass/Vol] 11.7 g/dL Low 12.0-15.0 [facility] Comment on above: Order Comment: 302-1 Performed By: #### L 500.4050, L100.0500 #### [facility] [address] [place], [address] MCH (RBC) [Entitic mass] 27.1 pg Normal 27.0-32.0 [facility] Comment on above: Order Comment: 302-1 Performed By: #### L 500.4050, L100.0500 #### [facility] [address] [place], [address] MCHC (RBC) [Mass/Vol] 30.1 g/dL Low 32-36 [facility] Comment on above: Order Comment: 302-1 Performed By: #### L 500.4050, L100.0500 #### [facility] [address] [place], [address] MCV (RBC) [Entitic vol] 90.0 fL Normal 81-99 [facility] Comment on above: Order Comment: 302-1 Performed By: #### L 500.4050, L100.0500 #### [facility] [address] [place], [address] Platelet mean volume (Bld) [Entitic vol] 11.4 fL Normal 6.2-12.0 [facility] Comment on above: Order Comment: 302-1 Performed By: #### L 500.4050, L100.0500 #### [facility] [address] [place], [address] Platelets (Bld) [#/Vol] 306 10*3/uL Normal 150-450 [facility] Comment on above: Order Comment: 302-1 Performed By: #### L 500.4050, L100.0500 #### [facility] [address] [place], [address] RBC (Bld) [#/Vol] 4.32 10*6/uL Normal 4.2-5.4 [facility] Comment on above: Order Comment: 302-1 Performed By: #### L 500.4050, L100.0500 #### [facility] [address] [place], [address] RDW SD 50.2 fl High 35.1-43.9 [facility] Comment on above: Order Comment: 302-1 Performed By: #### L 500.4050, L100.0500 #### [facility] [address] [place], [address] WBC (Bld) [#/Vol] 7.3 10*3/uL Normal 4.4-11.0 [facility] Comment on above: Order Comment: 302-1 Performed By: #### L 500.4050, L100.0500 #### [facility] [address] [place], [address] Carbon dioxide measurementOr dered By: Venkat Malin on 06-24-2024 CO2 [Moles/Vol] 25.0 mmol/L 21.0-32.0 [facility] Chloride measurementOrdered By: Venkat Malin on 06-24-2024 Chloride [Moles/Vol] 113 mmol/L High 98-107 [facility] Comprehensive Metabolic Prof ilon 06-24-2024 Albumin [Mass/Vol] 2.7 g/dL Low 3.2-5.0 [facility] Comment on above: Order Comment: 302-1 Performed By: #### L 500.4050, L100.0500 #### [facility] [address] [place], [address] Albumin/Globulin [Mass ratio] 0.6 {ratio} Low 0.9-2.4 [facility] Comment on above: Order Comment: 302-1 Performed By: #### L 500.4050, L100.0500 #### [facility] [address] [place], [address] ALK P 115 U/L Normal 45-117 [facility] Comment on above: Order Comment: 302-1 Performed By: #### L 500.4050, L100.0500 #### [facility] [address] [place], [address] ALT [Catalytic activity/Vol] 13 U/L Normal 13-56 [facility] Comment on above: Order Comment: 302-1 Performed By: #### L 500.4050, L100.0500 #### [facility] [address] [place], [address] AST [Catalytic activity/Vol] 14 U/L Low 15-37 [facility] Comment on above: Order Comment: 302-1 Performed By: #### L 500.4050, L100.0500 #### [facility] [address] [place], [address] BUN/CRE 27.9 RATIO High 10-20 [facility] Comment on above: Order Comment: 302-1 Performed By: #### L 500.4050, L100.0500 #### [facility] [address] [place], [address] CA,Total 8.8 mg/dL Normal 8.5-10.1 [facility] Comment on above: Order Comment: 302-1 Performed By: #### L 500.4050, L100.0500 #### [facility] [address] [place], [address] Chloride [Moles/Vol] 113 mmol/L High 98-107 [facility] Comment on above: Order Comment: 302-1 Performed By: #### L 500.4050, L100.0500 #### [facility] [address] [place], [address] CO2 [Moles/Vol] 25.0 mmol/L Normal 21.0-32.0 [facility] Comment on above: Order Comment: 302-1 Performed By: #### L 500.4050, L100.0500 #### [facility] [address] [place], [address] Creatinine [Mass/Vol] 0.72 mg/dL Normal 0.55-1.02 [facility] Comment on above: Order Comment: 302-1 Result Comment: The validity of the calculated GFR GFRAA in patients over 70 years has not been determined. Clinical correlation is essential. Performed By: #### L 500.4050, L100.0500 #### [facility] [address] [place], [address] EST GFR - AA 111 mL/min Normal >60 [facility] Comment on above: Order Comment: 302-1 Result Comment: Afri can [place]an GFR Calc Performed By: #### L 500.4050, L100.0500 #### [facility] [address] [place], [address] GAP 4 Low 5-15 [facility] Comment on above: Order Comment: 302-1 Performed By: #### L 500.4050, L100.0500 #### [facility] [address] [place], [address] GFR/1.73 sq M.predicted among non-blacks MDRD (S/P/Bld) [Vol rate/Area] 92 mL/min/{1.73_m2} Normal >60 [facility] Comment on above: Order Comment: 302-1 Result Comment: Non- GFR Calc Performed By: #### L 500.4050, L100.0500 #### [facility] [address] [place], [address] Globulin (S) [Mass/Vol] 4.8 g/dL High 2.2-4.2 [facility] Comment on above: Order Comment: 302-1 Performed By: #### L 500.4050, L100.0500 #### [facility] [address] [place], [address] Glucose [Mass/Vol] 87 mg/dL Normal 74-106 [facility] Comment on above: Order Comment: 302-1 Performed By: #### L 500.4050, L100.0500 #### [facility] [address] [place], [address] Potassium [Moles/Vol] 3.5 mmol/L Normal 3.5-5.1 [facility] Comment on above: Order Comment: 302-1 Performed By: #### L 500.4050, L100.0500 #### [facility] [address] [place], [address] Sodium [Moles/Vol] 142 mmol/L Normal 136-145 [facility] Comment on above: Order Comment: 302-1 Performed By: #### L [id number], L100.0500 #### [facility] [address] [place], [address] T BILI < 0.10 Low 0.20-1.00 [facility] Comment on above: Order Comment: 302-1 Result Comment: For patients on eltrombopag therapy, use of Dimension [place] TBIL is not recommended. Performed By: #### L [id number], L100.0500 #### [facility] [address] [place], [address] T PROT 7.5 g/dL Normal 6.4-8.2 [facility] Comment on above: Order Comment: 302-1 Performed By: #### L [id number], L100.0500 #### [facility] [address] [place], [address] Urea nitrogen [Mass/Vol] 20 mg/dL High 7-18 [facility] Comment on above: Order Comment: 302-1 Performed By: #### L [id number], L100.0500 #### [facility] [address] [place], [address] Erythrocyte distribution wid th ratioOrdered By: Venkat Malin on 06-24-2024 Erythrocyte distribution width (RBC) [Ratio] 15.0 % High 11.6-14.6 [facility] Erythrocyte distribution wid th standard deviationOrdered By: Venkat Malin on 06-24-2024 Erythrocyte distribution width (RBC) [Entitic vol] 50.2 fL High 35.1-43.9 [facility] Estimated glomerular filtrat ion rate (GFR) AmericanOrdered By: Venkat Malin on 06-24-2024 Estimated GFR (MDRD) Amer 111 mL/min >60 [facility] Comment on above: GFR Calc Glomerular filtration rate ( GFR) estimationOrdered By: Venkat Malin on 06-24-2024 Estimated GFR (MDRD) Non-Af Amer 92 mL/min >60 [facility] Comment on above: Non- GFR Calc Glucose measurementOrdered B y: Venkat Malin on 06-24-2024 Glucose [Mass/Vol] 87 mg/dL 74-106 [facility] Hematocrit Auto (Bld) [Volum e fraction]Ordered By: Venkat Malin on 06-24-2024 Hematocrit (Bld) [Volume fraction] 38.9 % 37-47 [facility] Hemoglobin measurementOrdere d By: Venkat Malin on 06-24-2024 Hemoglobin (Bld) [Mass/Vol] 11.7 g/dL Low 12.0-15.0 [facility] - Chemistry and C hemistry - challengeOrdered By: Venkat Malin on 06-24-2024 AST [Catalytic activity/Vol] 14 U/L Low 15-37 [facility] MCV (mean corpuscular volume ) determinationOrdered By: Venkat Malin on 06-24-2024 MCV (RBC) [Entitic vol] 90.0 fL 81-99 [facility] Mean corpuscular hemoglobin (MCH) determinationOrdered By: Venkat Malin on 06-24-2024 MCH (RBC) [Entitic mass] 27.1 pg 27.0-32.0 [facility] Mean corpuscular hemoglobin concentration (MCHC) determinationOrdered By: Venkat Malin on 06-24-2024 MCHC (RBC) [Mass/Vol] 30.1 g/dL Low 32-36 [facility] Mean platelet volume determi nationOrdered By: Venkat Malin on 06-24-2024 Platelet mean volume (Bld) [Entitic vol] 11.4 fL 6.2-12.0 [facility] Platelet countOrdered By: Dov Gonzalez on 06-24-2024 Platelets (Bld) [#/Vol] 306 10*3/uL 150-450 [facility] Potassium measurementOrdered By: Venkat Malin on 06-24-2024 Potassium [Moles/Vol] 3.5 mmol/L 3.5-5.1 [facility] RBC Auto (Bld) [#/Vol]Ordere d By: Venkat Malin on 06-24-2024 RBC (Bld) [#/Vol] 4.32 10*6/uL 4.2-5.4 [facility] Serum anion gap measurementO rdered By: Venkat Malin on 06-24-2024 Anion gap [Moles/Vol] 4 mmol/L Low 5-15 [facility] Serum globulin measurementOr dered By: Venkat Malin on 06-24-2024 Globulin (S) [Mass/Vol] 4.8 g/dL High 2.2-4.2 [facility] Serum or plasma alanine gregorio otransferase (ALT) measurementOrdered By: Venkat Malin on 06-24-2024 ALT [Catalytic activity/Vol] 13 U/L 13-56 [facility] Serum or plasma albumin kavin urement (mass/volume)Ordered By: Venkat Malin on 06-24-2024 Albumin [Mass/Vol] 2.7 g/dL Low 3.2-5.0 [facility] Serum or plasma alkaline raymond sphatase measurementOrdered By: Venkat Malin on 06-24-2024 ALP [Catalytic activity/Vol] 115 U/L 45-117 [facility] Serum or plasma calcium kavin urement (mass/volume)Ordered By: Venkat Malin on 06-24-2024 Calcium [Mass/Vol] 8.8 mg/dL 8.5-10.1 [facility] Serum or plasma creatinine m easurement (mass/volume)Ordered By: Venkat Malin on 06-24-2024 Creatinine [Mass/Vol] 0.72 mg/dL 0.55-1.02 [facility] Comment on above: The validity of the calculated GFR & GFRAA in patients over 70 years has not been determined. Clinical correlation is essential. Serum or plasma urea nitroge n measurement (mass/volume)Ordered By: Venkat Malin on 06-24-2024 Urea nitrogen [Mass/Vol] 20 mg/dL High 7-18 [facility] Sodium levelOrdered By: Sai Malin on 06-24-2024 Sodium [Moles/Vol] 142 mmol/L 136-145 [facility] Total proteinOrdered By: Sarah Malin on 06-24-2024 Protein [Mass/Vol] 7.5 g/dL 6.4-8.2 [facility] White blood cell (WBC) count Ordered By: Venkat Malin on 06-24-2024 WBC (Bld) [#/Vol] 7.3 10*3/uL 4.4-11.0 [facility] Miscellaneous Lab Procedureo n 06-10-2024 MISC LAB TEST Normal [facility] Comment on above: Order Comment: 302.1 Result Comment: TEST RESULTS LIMITS Oxcarbazepine (Trileptal),S Oxcarbazepine, 10 ug/mL 10-35 Detection Limit = 1 TESTING PERFORMED AT [facility]. ORIGINAL REPORT ON FILE IN LAB CONTAINS ADDITIONAL TEST SITE INFORMATION. Performed By: #### L [id number], L100.0500 #### [facility] [address] [place], [address] CBC-Complete Blood Cnt No Di ffon 06-03-2024 Erythrocyte distribution width (RBC) [Ratio] 15.6 % High 11.6-14.6 [facility] Comment on above: Order Comment: 302.1 Performed By: #### L [id number], L100.0500 #### [facility] [address] [place], [address] Hematocrit (Bld) [Volume fraction] 43.9 % Normal 37-47 [facility] Comment on above: Order Comment: 302.1 Performed By: #### L [id number], L100.0500 #### [facility] [address] [place], [address] Hemoglobin (Bld) [Mass/Vol] 13.4 g/dL Normal 12.0-15.0 [facility] Comment on above: Order Comment: 302.1 Performed By: #### L [id number], L100.0500 #### [facility] [address] [place], [address] MCH (RBC) [Entitic mass] 27.2 pg Normal 27.0-32.0 [facility] Comment on above: Order Comment: 302.1 Performed By: #### L [id number], L100.0500 #### [facility] [address] [place], [address] MCHC (RBC) [Mass/Vol] 30.5 g/dL Low 32-36 [facility] Comment on above: Order Comment: 302.1 Performed By: #### L [id number], L100.0500 #### [facility] [address] [place], [address] MCV (RBC) [Entitic vol] 89.2 fL Normal 81-99 [facility] Comment on above: Order Comment: 302.1 Performed By: #### L [id number], L100.0500 #### [facility] [address] [place], [address] Platelet mean volume (Bld) [Entitic vol] 11.3 fL Normal 6.2-12.0 [facility] Comment on above: Order Comment: 302.1 Performed By: #### L [id number], L100.0500 #### [facility] [address] [place], [address] Platelets (Bld) [#/Vol] 324 10*3/uL Normal 150-450 [facility] Comment on above: Order Comment: 302.1 Performed By: #### L [id number], L100.0500 #### [facility] [address] [place], [address] RBC (Bld) [#/Vol] 4.92 10*6/uL Normal 4.2-5.4 [facility] Comment on above: Order Comment: 302.1 Performed By: #### L [id number], L100.0500 #### [facility] [address] [place], [address] RDW SD 50.7 fl High 35.1-43.9 [facility] Comment on above: Order Comment: 302.1 Performed By: #### L [id number], L100.0500 #### [facility] [address] [place], [address] WBC (Bld) [#/Vol] 5.2 10*3/uL Normal 4.4-11.0 [facility] Comment on above: Order Comment: 302.1 Performed By: #### L [id number], L100.0500 #### [facility] [address] [place], [address] Comprehensive Metabolic Prof [facility] 06-03-2024 Albumin [Mass/Vol] 2.8 g/dL Low 3.2-5.0 [facility] Comment on above: Order Comment: 302.1 Performed By: #### L [id number], L100.0500 #### [facility] [address] [place], [address] Albumin/Globulin [Mass ratio] 0.5 {ratio} Low 0.9-2.4 [facility] Comment on above: Order Comment: 302.1 Performed By: #### L [id number], L100.0500 #### [facility] [address] [place], [address] ALK P 113 U/L Normal 45-117 [facility] Comment on above: Order Comment: 302.1 Performed By: #### L [id number], L100.0500 #### [facility] [address] [place], [address] ALT [Catalytic activity/Vol] 18 U/L Normal 13-56 [facility] Comment on above: Order Comment: 302.1 Performed By: #### L 500.4050, L100.0500 #### [facility] [address] [place], [address] AST [Catalytic activity/Vol] 20 U/L Normal 15-37 [facility] Comment on above: Order Comment: 302.1 Result Comment: Slig ht Hemolysis, Result may be falsely increased. Performed By: #### L 500.4050, L100.0500 #### [facility] [address] [place], [address] Bilirubin [Mass/Vol] 0.40 mg/dL Normal 0.20-1.00 [facility] Comment on above: Order Comment: 302.1 Result Comment: For patients on eltrombopag therapy, use of Dimension [place] TBIL is not recommended. Performed By: #### L 500.4050, L100.0500 #### [facility] [address] [place], [address] BUN/CRE 19.0 RATIO Normal 10-20 [facility] Comment on above: Order Comment: 302.1 Performed By: #### L 500.4050, L100.0500 #### [facility] [address] [place], [address] CA,Total 9.0 mg/dL Normal 8.5-10.1 [facility] Comment on above: Order Comment: 302.1 Performed By: #### L 500.4050, L100.0500 #### [facility] [address] [place], [address] Chloride [Moles/Vol] 111 mmol/L High 98-107 [facility] Comment on above: Order Comment: 302.1 Performed By: #### L 500.4050, L100.0500 #### [facility] [address] [place], [address] CO2 [Moles/Vol] 22.0 mmol/L Normal 21.0-32.0 [facility] Comment on above: Order Comment: 302.1 Performed By: #### L 500.4050, L100.0500 #### [facility] [address] [place], [address] Creatinine [Mass/Vol] 0.79 mg/dL Normal 0.55-1.02 [facility] Comment on above: Order Comment: 302.1 Result Comment: The validity of the calculated GFR GFRAA in patients over 70 years has not been determined. Clinical correlation is essential. Performed By: #### L 500.4050, L100.0500 #### [facility] [address] [place], [address] EST GFR - AA 99 mL/min Normal >60 [facility] Comment on above: Order Comment: 302.1 Result Comment: Afri can [place] GFR Calc Performed By: #### L 500.4050, L100.0500 #### [facility] [address] [place], [address] GAP 6 Normal 5-15 [facility] Comment on above: Order Comment: 302.1 Performed By: #### L 500.4050, L100.0500 #### [facility] [address] [place], [address] GFR/1.73 sq M.predicted among non-blacks MDRD (S/P/Bld) [Vol rate/Area] 82 mL/min/{1.73_m2} Normal >60 [facility] Comment on above: Order Comment: 302.1 Result Comment: Non- GFR Calc Performed By: #### L 500.4050, L100.0500 #### [facility] [address] [place], [address] Globulin (S) [Mass/Vol] 5.3 g/dL High 2.2-4.2 [facility] Comment on above: Order Comment: 302.1 Performed By: #### L 500.4050, L100.0500 #### [facility] [address] [place], [address] Glucose [Mass/Vol] 78 mg/dL Normal 74-106 [facility] Comment on above: Order Comment: 302.1 Performed By: #### L 500.4050, L100.0500 #### [facility] [address] [place], [address] Potassium [Moles/Vol] 4.0 mmol/L Normal 3.5-5.1 [facility] Comment on above: Order Comment: 302.1 Result Comment: Slig ht Hemolysis, Result may be falsely increased. Performed By: #### L 500.4050, L100.0500 #### [facility] [address] [place], [address] Sodium [Moles/Vol] 139 mmol/L Normal 136-145 [facility] Comment on above: Order Comment: 302.1 Performed By: #### L 500.4050, L100.0500 #### [facility] [address] [place], [address] T PROT 8.1 g/dL Normal 6.4-8.2 [facility] Comment on above: Order Comment: 302.1 Performed By: #### L 500.4050, L100.0500 #### [facility] [address] [place], [address] Urea nitrogen [Mass/Vol] 15 mg/dL Normal 7-18 [facility] Comment on above: Order Comment: 302.1 Performed By: #### L 500.4050, L100.0500 #### [facility] [address] [place], [address] Basophil percentageOrdered B y: Venkat Malin on 10-29-2023 Basophil percentage 10-25 SEEN /hpf 0-5 [facility] Bilirubin Test strip Ql (U)O rdered By: Venkat Malin on 10-29-2023 Bilirubin Ql (U) Negative Negative [facility] Culture, urineOrdered By: Dov Gonzalez on 10-29-2023 Bacteria identified Cx Nom (U) Escherichia coli [facility] Ketones Test strip Ql (U)Ord ered By: Venkat Malin on 10-29-2023 Ketones Ql (U) 5 mg/dl Negative [facility] Mucus LM Ql (Urine sed)Order ed By: Venkat Malin on 10-29-2023 Mucus Ql (Urine sed) 0 SEEN /hpf [facility] Nitrite Test strip Ql (U)Ord ered By: Venkat Malin on 10-29-2023 Nitrite Ql (U) Positive Negative [facility] No Panel InformationOrdered By: Venkat Malin on 10-29-2023 Urine RBC 25-50 SEEN /hpf 0-5 [facility] Protein Test strip Ql (U)Ord ered By: Venkat Malin on 10-29-2023 Protein Ql (U) 30 mg/dl Negative [facility] Squamous epithelial cells de tection in urine sediment by light microscopyOrdered By: Venkat Malin on 10-29-2023 Epithelial cells.squamous LM Ql (Urine sed) 0-5 SEEN /hpf 5-10 [facility] Urine blood detectionOrdered By: Venkat Malin on 10-29-2023 RBC Ql (U) 250 /ul Negative [facility] Urine clarityOrdered By: Sarah Malin on 10-29-2023 Clarity (U) Sl. Cloudy Clear [facility] Urine color determinationOrd ered By: Venkat Malin on 10-29-2023 Color (U) Yellow Yellow [facility] Urine glucose detectionOrder ed By: Venkat Malin on 10-29-2023 Glucose Ql (U) Normal mg/dl Normal [facility] Urine leukocyte esterase det ection by dipstickOrdered By: Venkat Malin on 10-29-2023 Leukocyte esterase Test strip Ql (U) 100 /ul Negative [facility] Urine pHOrdered By: Venkat glynn on 10-29-2023 pH (U) 6.0 [pH] 5.0 - 8.0 [facility] Urine sediment bacteria coun t by microscopy (number/high power field)Ordered By: Venkat Malin on 10-29-2023 Bacteria LM.HPF (Urine sed) [#/Area] 3 /[HPF] None Seen [facility] Urine specific gravity measu rementOrdered By: Venkat Malin on 10-29-2023 Specific gravity (U) [Rel density] 1.020 1.002-1.03 0 [facility] Urine urobilinogen measureme ntOrdered By: Venkat Malin on 10-29-2023 Urobilinogen Ql (U) 1 mg/dl Normal [facility] Basophil percentageOrdered B y: Venkat Malin on 10-18-2023 Chloride [Moles/Vol] 111 mmol/L 98-107 [facility] Glucose [Mass/Vol] 92 mg/dL 74-106 [facility] Hemoglobin (Bld) [Mass/Vol] 13.3 g/dL 12.0-15.0 [facility] Potassium [Moles/Vol] 3.6 mmol/L 3.5-5.1 [facility] Comment on above: Slight Hemolysis, Re sult may be falsely increased. Sodium [Moles/Vol] 139 mmol/L 136-145 [facility] WBC (Bld) [#/Vol] 8.0 10*3/uL 4.4-11.0 [facility] Determination of erythrocyte mean corpuscular volume (MCV)Ordered By: Venkat Malin on 10-18-2023 MCV (RBC) [Entitic vol] 87.1 fL 81-99 [facility] Erythrocyte distribution wid th ratioOrdered By: Venkat Malin on 10-18-2023 Erythrocyte distribution width (RBC) [Ratio] 14.9 % 11.6-14.6 [facility] Erythrocyte distribution wid th standard deviationOrdered By: Venkat Malin on 10-18-2023 Erythrocyte distribution width (RBC) [Entitic vol] 48.1 fL 35.1-43.9 [facility] Hematocrit Auto (Bld) [Volum e fraction]Ordered By: Venkat Malin on 10-18-2023 Hematocrit (Bld) [Volume fraction] 41.3 % 37-47 [facility] - Chemistry and C hemistry - challengeOrdered By: Venkat Malin on 10-18-2023 CO2 [Moles/Vol] 23.0 mmol/L 21.0-32.0 [facility] Urea nitrogen/Creatinine [Mass ratio] 24.5 mg/mg 10- [facility] - Hematology and Cell countsOrdered By: Venkat Malin on 10-18-2023 MCH (RBC) [Entitic mass] 28.1 pg 27.0-32.0 [facility] MCHC (RBC) [Mass/Vol] 32.2 g/dL 32-36 [facility] Platelet mean volume (Bld) [Entitic vol] 12.1 fL 6.2-12.0 [facility] Platelets (Bld) [#/Vol] 224 10*3/uL 150-450 [facility] No Panel InformationOrdered By: Venkat Malin on 10-18-2023 Estimated GFR (MDRD) Amer 124 mL/min >60 [facility] Comment on above: GFR Calc Estimated GFR (MDRD) Non-Af Amer 103 mL/min >60 [facility] Comment on above: Non- GFR Calc RBC Auto (Bld) [#/Vol]Ordere d By: Venkat Malin on 10-18-2023 RBC (Bld) [#/Vol] 4.74 10*6/uL 4.2-5.4 [facility] Serum or plasma calcium kavin urement (mass/volume)Ordered By: Venkat Malin on 10-18-2023 Calcium [Mass/Vol] 9.1 mg/dL 8.5-10.1 [facility] Serum or plasma creatinine m easurement (mass/volume)Ordered By: Venkat Malin on 10-18-2023 Creatinine [Mass/Vol] 0.65 mg/dL 0.55-1.02 [facility] Comment on above: The validity of the calculated GFR & GFRAA in patients over 70 years has not been determined. Clinical correlation is essential. Serum or plasma urea nitroge n measurement (mass/volume)Ordered By: Venkat Malin on 10-18-2023 Urea nitrogen [Mass/Vol] 16 mg/dL 7-18 [facility] Thin prep Papanicolaou smear with manual screeningOrdered By: Venkat Malin on 10-18-2023 Thin prep Papanicolaou smear with manual screening 5 5-15 [facility] Basophil percentageOrdered B y: Venkat Malin on 10-09-2023 Chloride [Moles/Vol] 108 mmol/L 98-107 [facility] Glucose [Mass/Vol] 77 mg/dL 74-106 [facility] Potassium [Moles/Vol] 3.7 mmol/L 3.5-5.1 [facility] Sodium [Moles/Vol] 139 mmol/L 136-145 [facility] - Chemistry and C hemistry - challengeOrdered By: Venkat Malin on 10-09-2023 CO2 [Moles/Vol] 24.0 mmol/L 21.0-32.0 [facility] Urea nitrogen/Creatinine [Mass ratio] 25.7 mg/mg 10- [facility] No Panel InformationOrdered By: Venkat Malin on 10-09-2023 Estimated GFR (MDRD) Amer 108 mL/min >60 [facility] Comment on above: GFR Calc Estimated GFR (MDRD) Non-Af Amer 89 mL/min >60 [facility] Comment on above: Non- GFR Calc Serum or plasma calcium kavin urement (mass/volume)Ordered By: Venkat Malin on 10-09-2023 Calcium [Mass/Vol] 9.1 mg/dL 8.5-10.1 [facility] Serum or plasma creatinine m easurement (mass/volume)Ordered By: Venkat Malin on 10-09-2023 Creatinine [Mass/Vol] 0.74 mg/dL 0.55-1.02 [facility] Comment on above: The validity of the calculated GFR & GFRAA in patients over 70 years has not been determined. Clinical correlation is essential. Serum or plasma urea nitroge n measurement (mass/volume)Ordered By: Venkat Malin on 10-09-2023 Urea nitrogen [Mass/Vol] 19 mg/dL 7-18 [facility] Thin prep Papanicolaou smear with manual screeningOrdered By: Venkat Malin on 10-09-2023 Thin prep Papanicolaou smear with manual screening 7 5-15 [facility] Basophil percentageOrdered B y: Venkat Malin on 09-28-2023 Chloride [Moles/Vol] 110 mmol/L 98-107 [facility] Glucose [Mass/Vol] 90 mg/dL 74-106 [facility] Potassium [Moles/Vol] 3.6 mmol/L 3.5-5.1 [facility] Sodium [Moles/Vol] 140 mmol/L 136-145 [facility] - Chemistry and C hemistry - challengeOrdered By: Venkat Malin on 09-28-2023 CO2 [Moles/Vol] 25.0 mmol/L 21.0-32.0 [facility] Urea nitrogen/Creatinine [Mass ratio] 21.7 mg/mg 10-20 [facility] No Panel InformationOrdered By: Venkat Malin on 09-28-2023 Estimated GFR (MDRD) Amer 95 mL/min >60 [facility] Comment on above: GFR Calc Estimated GFR (MDRD) Non-Af Amer 78 mL/min >60 [facility] Comment on above: Non- GFR Calc Serum or plasma calcium kavin urement (mass/volume)Ordered By: Venkat Malin on 09-28-2023 Calcium [Mass/Vol] 9.5 mg/dL 8.5-10.1 [facility] Serum or plasma creatinine m easurement (mass/volume)Ordered By: Venkat Malin on 09-28-2023 Creatinine [Mass/Vol] 0.83 mg/dL 0.55-1.02 [facility] Comment on above: The validity of the calculated GFR & GFRAA in patients over 70 years has not been determined. Clinical correlation is essential. Serum or plasma urea nitroge n measurement (mass/volume)Ordered By: Venkat Malin on 09-28-2023 Urea nitrogen [Mass/Vol] 18 mg/dL 7-18 [facility] Thin prep Papanicolaou smear with manual screeningOrdered By: Venkat Malin on 09-28-2023 Thin prep Papanicolaou smear with manual screening 5 5-15 [facility] Basophil percentageOrdered B y: Venkat Malin on 09-20-2023 Bilirubin [Mass/Vol] 0.40 mg/dL 0.20-1.00 [facility] Comment on above: For patients on eltr ombopag therapy, use of Dimension [place] TBIL is not recommended. Chloride [Moles/Vol] 111 mmol/L 98-107 [facility] Glucose [Mass/Vol] 105 mg/dL 74-106 [facility] Comment on above: Fasting Glucose resu lt from 100 to 125 mg/dL suggests IMPAIRED HOMEOSTASIS per A.D.A. criteria. Hemoglobin (Bld) [Mass/Vol] 14.0 g/dL 12.0-15.0 [facility] Potassium [Moles/Vol] 3.4 mmol/L 3.5-5.1 [facility] Comment on above: Slight Hemolysis, Re sult may be falsely increased. Protein [Mass/Vol] 7.7 g/dL 6.4-8.2 [facility] Sodium [Moles/Vol] 140 mmol/L 136-145 [facility] WBC (Bld) [#/Vol] 7.2 10*3/uL 4.4-11.0 [facility] Determination of erythrocyte mean corpuscular volume (MCV)Ordered By: Venkat Malin on 09-20-2023 MCV (RBC) [Entitic vol] 88.0 fL 81-99 [facility] Erythrocyte distribution wid th ratioOrdered By: Venkat Malin on 09-20-2023 Erythrocyte distribution width (RBC) [Ratio] 14.5 % 11.6-14.6 [facility] Erythrocyte distribution wid th standard deviationOrdered By: Venkat Malin on 09-20-2023 Erythrocyte distribution width (RBC) [Entitic vol] 46.5 fL 35.1-43.9 [facility] Hematocrit Auto (Bld) [Volum e fraction]Ordered By: Venkat Malin on 09-20-2023 Hematocrit (Bld) [Volume fraction] 44.2 % 37-47 [facility] - Chemistry and C hemistry - challengeOrdered By: Venkat Malin on 09-20-2023 Albumin/Globulin [Mass ratio] 0.5 {ratio} 0.9-2.4 [facility] ALP [Catalytic activity/Vol] 117 U/L 45-117 [facility] ALT [Catalytic activity/Vol] 14 U/L 13-56 [facility] CO2 [Moles/Vol] 23.0 mmol/L 21.0-32.0 [facility] Globulin (S) [Mass/Vol] 5.1 g/dL 2.2-4.2 [facility] Urea nitrogen/Creatinine [Mass ratio] 17.5 mg/mg 10-20 [facility] - Hematology and Cell countsOrdered By: Venkat Malin on 09-20-2023 MCH (RBC) [Entitic mass] 27.9 pg 27.0-32.0 [facility] MCHC (RBC) [Mass/Vol] 31.7 g/dL 32-36 [facility] Platelet mean volume (Bld) [Entitic vol] 11.6 fL 6.2-12.0 [facility] Platelets (Bld) [#/Vol] 276 10*3/uL 150-450 [facility] No Panel InformationOrdered By: Venkat Malin on 09-20-2023 Estimated GFR (MDRD) Amer 91 mL/min >60 [facility] Comment on above: GFR Calc Estimated GFR (MDRD) Non-Af Amer 75 mL/min >60 [facility] Comment on above: Non- GFR Calc RBC Auto (Bld) [#/Vol]Ordere d By: Venkat Malin on 09-20-2023 RBC (Bld) [#/Vol] 5.02 10*6/uL 4.2-5.4 [facility] Serum or plasma calcium kavin urement (mass/volume)Ordered By: Venkat Malin on 09-20-2023 Calcium [Mass/Vol] 9.3 mg/dL 8.5-10.1 [facility] Serum or plasma creatinine m easurement (mass/volume)Ordered By: Venkat Malin on 09-20-2023 Creatinine [Mass/Vol] 0.86 mg/dL 0.55-1.02 [facility] Comment on above: The validity of the calculated GFR & GFRAA in patients over 70 years has not been determined. Clinical correlation is essential. Serum or plasma urea nitroge n measurement (mass/volume)Ordered By: Venkat Malin on 09-20-2023 Urea nitrogen [Mass/Vol] 15 mg/dL 7-18 [facility] Thin prep Papanicolaou smear with manual screeningOrdered By: Venkat Malin on 09-20-2023 Thin prep Papanicolaou smear with manual screening 2.6 g/dL 3.2-5.0 [facility] Thin prep Papanicolaou smear with manual screening 11 U/L 15-37 [facility] Comment on above: Slight Hemolysis, Re sult may be falsely increased. Thin prep Papanicolaou smear with manual screening 6 5-15 [facility] Basophil percentageOrdered B y: Venkat Malin on 09-19-2023 Bilirubin [Mass/Vol] 0.30 mg/dL 0.20-1.00 [facility] Comment on above: For patients on eltr ombopag therapy, use of Dimension [place] TBIL is not recommended. Chloride [Moles/Vol] 111 mmol/L 98-107 [facility] Glucose [Mass/Vol] 97 mg/dL 74-106 [facility] Hemoglobin (Bld) [Mass/Vol] 13.6 g/dL 12.0-15.0 [facility] Potassium [Moles/Vol] 3.9 mmol/L 3.5-5.1 [facility] Protein [Mass/Vol] 7.9 g/dL 6.4-8.2 [facility] Sodium [Moles/Vol] 139 mmol/L 136-145 [facility] WBC (Bld) [#/Vol] 7.7 10*3/uL 4.4-11.0 [facility] Determination of erythrocyte mean corpuscular volume (MCV)Ordered By: Venkat Malin on 09-19-2023 MCV (RBC) [Entitic vol] 90.0 fL 81-99 [facility] Erythrocyte distribution wid th ratioOrdered By: Venkat Malin on 09-19-2023 Erythrocyte distribution width (RBC) [Ratio] 14.5 % 11.6-14.6 [facility] Erythrocyte distribution wid th standard deviationOrdered By: Venkat Malin on 09-19-2023 Erythrocyte distribution width (RBC) [Entitic vol] 48.0 fL 35.1-43.9 [facility] Hematocrit Auto (Bld) [Volum e fraction]Ordered By: Venkat Malin on 02-20-2024 Hematocrit (Bld) [Volume fraction] 44.8 % 37-47 [facility] Laboratory - Chemistry and C hemistry - challengeOrdered By: Venkat Malin on 09-19-2023 Albumin/Globulin [Mass ratio] 0.5 {ratio} 0.9-2.4 [facility] ALP [Catalytic activity/Vol] 122 U/L 45-117 [facility] ALT [Catalytic activity/Vol] 12 U/L 13-56 [facility] CO2 [Moles/Vol] 23.0 mmol/L 21.0-32.0 [facility] Globulin (S) [Mass/Vol] 5.1 g/dL 2.2-4.2 [facility] Urea nitrogen/Creatinine [Mass ratio] 20.3 mg/mg 10-20 [facility] Laboratory - Hematology and Cell countsOrdered By: Venkat Malin on 09-19-2023 MCH (RBC) [Entitic mass] 27.3 pg 27.0-32.0 [facility] MCHC (RBC) [Mass/Vol] 30.4 g/dL 32-36 [facility] Platelet mean volume (Bld) [Entitic vol] 11.4 fL 6.2-12.0 [facility] Platelets (Bld) [#/Vol] 331 10*3/uL 150-450 [facility] No Panel InformationOrdered By: Venkat Malin on 09-19-2023 Estimated GFR (MDRD) Amer 100 mL/min >60 [facility] Comment on above: GFR Calc Estimated GFR (MDRD) Non-Af Amer 83 mL/min >60 [facility] Comment on above: Non- GFR Calc RBC Auto (Bld) [#/Vol]Ordere d By: Venkat Malin on 09-19-2023 RBC (Bld) [#/Vol] 4.98 10*6/uL 4.2-5.4 [facility] Serum or plasma calcium kavin urement (mass/volume)Ordered By: Venkat Malin on 09-19-2023 Calcium [Mass/Vol] 9.3 mg/dL 8.5-10.1 [facility] Serum or plasma creatinine m easurement (mass/volume)Ordered By: Venkat Malin on 09-19-2023 Creatinine [Mass/Vol] 0.79 mg/dL 0.55-1.02 [facility] Comment on above: The validity of the calculated GFR & GFRAA in patients over 70 years has not been determined. Clinical correlation is essential. Serum or plasma oxcarbazepin e measurement (mass/volume)Ordered By: Venkat Malin on 09-19-2023 OXcarbazepine [Mass/Vol] 17 ug/mL 10-35 [facility] Comment on above: This test was develo ped and its performance characteristicsdetermined by [employer]. It has not been cleared orapproved by the Food and Drug Administration. Detection Limit = 1Performed at: [facility] [address] [id number] Director: Martha Estrada MD, Phone: [phone] Serum or plasma urea nitroge n measurement (mass/volume)Ordered By: Venkat Malin on 09-19-2023 Urea nitrogen [Mass/Vol] 16 mg/dL 7-18 [facility] Thin prep Papanicolaou smear with manual screeningOrdered By: Venkat Malin on 09-19-2023 Thin prep Papanicolaou smear with manual screening 2.8 g/dL 3.2-5.0 [facility] Thin prep Papanicolaou smear with manual screening 12 U/L 15-37 [facility] Thin prep Papanicolaou smear with manual screening 5 5-15 [facility] Absolute lymphocyte countOrd ered By: Venkat Malin on 08-31-2023 Lymphocytes Auto (Unsp spec) [#/Vol] 2.12 10*3/uL 0.83-4.51 [facility] Automated lymphocyte count a s percentage of total leukocytesOrdered By: Venkat Malin on 08-31-2023 Lymphocytes/100 WBC Auto (Unsp spec) 39.0 % 19-41 [facility] Basophil percentageOrdered B y: Venkat Malin on 08-31-2023 Basophils/100 WBC (Bld) 0.9 % 0-1 [facility] Bilirubin [Mass/Vol] 0.30 mg/dL 0.20-1.00 [facility] Comment on above: For patients on eltr ombopag therapy, use of [place] TBIL is not recommended. Chloride [Moles/Vol] 108 mmol/L 98-107 [facility] Eosinophils/100 WBC (Bld) 2.6 % 0-5 [facility] Glucose [Mass/Vol] 84 mg/dL 74-106 [facility] Hemoglobin (Bld) [Mass/Vol] 13.3 g/dL 12.0-15.0 [facility] Monocytes/100 WBC (Bld) 8.7 % 0-10 [facility] Neutrophils (Bld) [#/Vol] 2.6 10*3/uL 2.0-7.7 [facility] Neutrophils/100 WBC (Bld) 48.4 % 47-70 [facility] Potassium [Moles/Vol] 3.4 mmol/L 3.5-5.1 [facility] Protein [Mass/Vol] 7.3 g/dL 6.4-8.2 [facility] Sodium [Moles/Vol] 135 mmol/L 136-145 [facility] WBC (Bld) [#/Vol] 5.4 10*3/uL 4.4-11.0 [facility] Determination of erythrocyte mean corpuscular volume (MCV)Ordered By: Venkat Malin on 08-31-2023 MCV (RBC) [Entitic vol] 90.7 fL 81-99 [facility] Erythrocyte distribution wid th ratioOrdered By: Venkat Malin on 08-31-2023 Erythrocyte distribution width (RBC) [Ratio] 14.4 % 11.6-14.6 [facility] Erythrocyte distribution wid th standard deviationOrdered By: Venkat Malin on 08-31-2023 Erythrocyte distribution width (RBC) [Entitic vol] 47.8 fL 35.1-43.9 [facility] Hematocrit Auto (Bld) [Volum e fraction]Ordered By: Venkat Malin on 08-31-2023 Hematocrit (Bld) [Volume fraction] 44.1 % 37-47 [facility] Immature granulocytes/100 WB C Auto (Bld)Ordered By: Venkat Malin on 08-31-2023 Immature granulocytes/100 WBC (Bld) 0.400 % 0.0-0.9 [facility] Comment on above: IG% - Immature Granu locytes (promyelocytes, myelocytes and metamyelocytes) > 1% indicates that a LEFT SHIFT is Present. Laboratory - Chemistry and C hemistry - challengeOrdered By: Venkat Malin on 08-31-2023 Albumin/Globulin [Mass ratio] 0.6 {ratio} 0.9-2.4 [facility] ALP [Catalytic activity/Vol] 103 U/L 45-117 [facility] ALT [Catalytic activity/Vol] 14 U/L 13-56 [facility] CO2 [Moles/Vol] 25.0 mmol/L 21.0-32.0 [facility] Globulin (S) [Mass/Vol] 4.6 g/dL 2.2-4.2 [facility] Urea nitrogen/Creatinine [Mass ratio] 21.6 mg/mg 10-20 [facility] Laboratory - Hematology and Cell countsOrdered By: Venkat Malin on 08-31-2023 MCH (RBC) [Entitic mass] 27.4 pg 27.0-32.0 [facility] MCHC (RBC) [Mass/Vol] 30.2 g/dL 32-36 [facility] Nucleated RBC/100 WBC (Bld) [Ratio] 0 % 0-5 [facility] Platelets (Bld) [#/Vol] 297 10*3/uL 150-450 [facility] No Panel InformationOrdered By: Venkat Malin on 08-31-2023 Carbamazepine (Tegretol) Level 0.7 ug/mL 4.0-12.0 [facility] Estimated GFR (MDRD) Amer 116 mL/min >60 [facility] Comment on above: GFR Calc Estimated GFR (MDRD) Non-Af Amer 96 mL/min >60 [facility] Comment on above: Non- GFR Calc Platelet mean volume [place] (Bld) [Entitic vol]Ordered By: Venkat Malin on 08-31-2023 Platelet mean volume (Bld) [Entitic vol] 11.7 fL 6.2-12.0 [facility] RBC Auto (Bld) [#/Vol]Ordere d By: Venkat Malin on 08-31-2023 RBC (Bld) [#/Vol] 4.86 10*6/uL 4.2-5.4 [facility] Serum or plasma calcium kavin urement (mass/volume)Ordered By: Venakt Malin on 08-31-2023 Calcium [Mass/Vol] 8.7 mg/dL 8.5-10.1 [facility] Serum or plasma creatinine m easurement (mass/volume)Ordered By: Venkat Malin on 08-31-2023 Creatinine [Mass/Vol] 0.69 mg/dL 0.55-1.02 [facility] Comment on above: The validity of the calculated GFR & GFRAA in patients over 70 years has not been determined. Clinical correlation is essential. Serum or plasma urea nitroge n measurement (mass/volume)Ordered By: Venkat Malin on 08-31-2023 Urea nitrogen [Mass/Vol] 15 mg/dL 7-18 [facility] Thin prep Papanicolaou smear with manual screeningOrdered By: Venkat Malin on 08-31-2023 Thin prep Papanicolaou smear with manual screening 2.7 g/dL 3.2-5.0 [facility] Thin prep Papanicolaou smear with manual screening 10 U/L 15-37 [facility] Thin prep Papanicolaou smear with manual screening 2 5-15 [facility] Basophil percentageOrdered B y: Venkat Malin on 07-19-2023 Bilirubin [Mass/Vol] 0.30 mg/dL 0.20-1.00 [facility] Comment on above: For patients on eltr ombopag therapy, use of [place] TBIL is not recommended. Chloride [Moles/Vol] 110 mmol/L 98-107 [facility] Glucose [Mass/Vol] 85 mg/dL 74-106 [facility] Potassium [Moles/Vol] 3.7 mmol/L 3.5-5.1 [facility] Protein [Mass/Vol] 8.0 g/dL 6.4-8.2 [facility] Sodium [Moles/Vol] 140 mmol/L 136-145 [facility] WBC (Bld) [#/Vol] 5.4 10*3/uL 4.4-11.0 [facility] Blood erythrocytes count (nu mber/volume)Ordered By: Venkat Malin on 07-19-2023 RBC (Bld) [#/Vol] 5.15 10*6/uL 4.2-5.4 [facility] Blood hemoglobin measurement (mass/volume)Ordered By: Venkat Malin on 07-19-2023 Hemoglobin (Bld) [Mass/Vol] 14.5 g/dL 12.0-15.0 [facility] Blood platelet mean volumeOr dered By: Venkat Malin on 07-19-2023 Platelet mean volume (Bld) [Entitic vol] 11.1 fL 6.2-12.0 [facility] Determination of erythrocyte mean corpuscular volume (MCV)Ordered By: Venkat Malin on 07-19-2023 MCV (RBC) [Entitic vol] 90.3 fL 81-99 [facility] Hematocrit Auto (Bld) [Volum e fraction]Ordered By: Venkat Malin on 07-19-2023 Hematocrit (Bld) [Volume fraction] 46.5 % 37-47 [facility] Laboratory - Chemistry and C hemistry - challengeOrdered By: Venkat Malin on 07-19-2023 ALP [Catalytic activity/Vol] 170 U/L 45-117 [facility] ALT [Catalytic activity/Vol] 33 U/L 13-56 [facility] CO2 [Moles/Vol] 27.0 mmol/L 21.0-32.0 [facility] Globulin (S) [Mass/Vol] 4.8 g/dL 2.2-4.2 [facility] Urea nitrogen/Creatinine [Mass ratio] 19.5 mg/mg 10-20 [facility] Laboratory - Hematology and Cell countsOrdered By: Venkat Malin on 07-19-2023 Erythrocyte distribution width (RBC) [Entitic vol] 50.0 fL 35.1-43.9 [facility] Erythrocyte distribution width (RBC) [Ratio] 14.9 % 11.6-14.6 [facility] MCH (RBC) [Entitic mass] 28.2 pg 27.0-32.0 [facility] MCHC Auto (RBC) [Mass/Vol]Or dered By: Venkat Malin on 07-19-2023 MCHC (RBC) [Mass/Vol] 31.2 g/dL 32-36 [facility] No Panel InformationOrdered By: Venkat Malin on 07-19-2023 Estimated GFR (MDRD) Amer 89 mL/min >60 [facility] Comment on above: GFR Calc Estimated GFR (MDRD) Non-Af Amer 74 mL/min >60 [facility] Comment on above: Non- GFR Calc Platelets bldOrdered By: Pet er Dea on 07-19-2023 Platelets (Bld) [#/Vol] 341 10*3/uL 150-450 [facility] Serum or plasma albumin kavin urement (mass/volume)Ordered By: Venkat Malin on 07-19-2023 Albumin [Mass/Vol] 3.2 g/dL 3.2-5.0 [facility] Serum or plasma albumin/glob ulin mass ratioOrdered By: Venkat Malin on 07-19-2023 Albumin/Globulin [Mass ratio] 0.7 {ratio} 0.9-2.4 [facility] Serum or plasma calcium kavin urement (mass/volume)Ordered By: Venkat Malin on 07-19-2023 Calcium [Mass/Vol] 9.1 mg/dL 8.5-10.1 [facility] Serum or plasma creatinine m easurement (mass/volume)Ordered By: Venkat Malin on 07-19-2023 Creatinine [Mass/Vol] 0.87 mg/dL 0.55-1.02 [facility] Comment on above: The validity of the calculated GFR & GFRAA in patients over 70 years has not been determined. Clinical correlation is essential. Serum or plasma urea nitroge n measurement (mass/volume)Ordered By: Venkat Malin on 07-19-2023 Urea nitrogen [Mass/Vol] 17 mg/dL 7-18 [facility] Thin prep Papanicolaou smear with manual screeningOrdered By: Venkat Malin on 07-19-2023 Thin prep Papanicolaou smear with manual screening 15 U/L 15-37 [facility] Thin prep Papanicolaou smear with manual screening 3 5-[address] [facility] [address] Abdomen WO contraston 1. Left UPJ calculus and multiple left renal calculi. Moderate left hydronephrosis. 2. Moderate to large amount of stool in the colon. Consider constipation. 3. Left pleural effusion. Report Dictated on Electronically Signed By: Dakotah Alan MD Electronically Signed Date/Time: 07/11/2023 12:46 PM EST [facility] Patient Name: DIANA PUGH : [...] Osseous structures: Dextrocurvature of the visualized spine. [facility] Dakotah Alan MD - 07/11/2023 Patient Name: DIANA CALABRESE : 1975 Exam Date/Time: 07/11/2023 11:09 Procedure: [...] Electronically Signed Date/Time: 07/11/2023 12:46 PM EST [facility] Study observation (narrative) [facility] Abdomen WO contrastOrdere d By: Dakotah Alan on 07-11-2023 [facility] Work Phone: Bacteria identified Cx Nom ( Bld)Ordered By: Fide Lobato on 07-10-2023 Interpretation and review of laboratory results Abnormal [facility] Blood Collection Sit e: Left Hand [facility] Bacteria identified Cx Nom ( Bld)on 07-10-2023 Interpretation and review of laboratory results Abnormal [facility] Blood Collection Sit e: Right Arm [facility] Bacteria identified Cx Nom ( U)Ordered By: Duong Hall on 07-10-2023 Interpretation and review of laboratory results Abnormal [facility] Basic metabolic 1998 panelon 07-10-2023 Anion gap [Moles/Vol] 7 mmol/L 3 - 13 mmol/L [facility] Calcium [Mass/Vol] 8.2 mg/dL Low 8.4 - 10. 4 mg/dL [facility] Chloride [Moles/Vol] 109 mmol/L High 98 - 10 7 mmol/L [facility] CO2 [Moles/Vol] 21 mmol/L Low 22 - 30 mmol/L [facility] Creatinine [Mass/Vol] 0.69 mg/dL 0.52 - 1.04 mg/dL [facility] GFR/1.73 sq M.predicted MDRD (S/P/Bld) [Vol rate/Area] - PINF [facility] Comment on above: Calculation based on the Chronic Kidney Disease Epidemiology Collaboration (CKD-EPI) equation refit without adjustment for race Glucose [Mass/Vol] 89 mg/dL 70 - 100 mg/dL [facility] Interpretation and review of laboratory results Abnormal [facility] Potassium [Moles/Vol] 3.8 mmol/L 3.5 - 5.1 mmol/L [facility] Sodium [Moles/Vol] 137 mmol/L 135 - 145 mmol/L [facility] Urea nitrogen [Mass/Vol] 9 mg/dL 7 - 17 mg/dL [facility] CBC panel Auto (Bld)Ordered By: Dariel Hollins on 07-10-2023 Erythrocyte distribution width (RBC) [Ratio] 15.1 % High 11.5 - 14.5 % [facility] Hematocrit (Bld) [Volume fraction] 32.7 % Low 35.0 - 47.0 % [facility] Hemoglobin (Bld) [Mass/Vol] 10.8 g/dL Low 11.7 - 16.0 g/dL [facility] Interpretation and review of laboratory results Abnormal [facility] MCH (RBC) [Entitic mass] 28.4 pg 26.0 - 34.0 pg [facility] MCHC (RBC) [Mass/Vol] 33.1 % 32.0 - 36.0 % [facility] MCV (RBC) [Entitic vol] 85.8 fL 80.0 - 98.0 fL [facility] Platelet mean volume (Bld) [Entitic vol] 8.6 fL 7.4 - 12.4 fL [facility] Platelets (Bld) [#/Vol] 291 10*3/uL 140 - 440 10*3/uL [facility] RBC (Bld) [#/Vol] 3.82 10*6/uL 3.8 - 5.20 10*6/uL [facility] WBC (Bld) [#/Vol] 6.5 10*3/uL 3.6 - 10.7 10*3/uL [facility] Laboratory - Drug toxicology on 07-10-2023 Vancomycin [Mass/Vol] 19.4 ug/mL 15.0 - 20.0 ug/mL [facility] Laboratory - Microbiology an d Antimicrobial susceptibilityOrdered By: Fide Lobato on 07-10-2023 Bacteria identified Cx Nom (Bld) Staphylococcus warneri Critically abnormal [facility] Comment on above: Contamination likely unless additional blood culture sets are found to be positive with the same organism. This is an edited result. Previous organism was Gram-positive cocci on 07/08/2023 at 1347 EST. Laboratory - Microbiology an d Antimicrobial susceptibilityon 07-10-2023 Bacteria identified Cx Nom (Bld) Staphylococcus capitis Critically abnormal [facility] Comment on above: Contamination likely unless additional blood culture sets are found to be positive with the same organism. This is an edited result. Previous organism was Gram-positive cocci on 07/09/2023 at 0049 EST. Laboratory - Microbiology an d Antimicrobial susceptibilityOrdered By: Duong Hall on 07-10-2023 Bacteria identified Cx Nom (U) Normal urogenital alin present [facility] Bacteria identified Cx Nom (U) 50,000-90,000 CFU/mL Escherichia coli Abnormal [facility] No Panel Informationon 07-10 Interpretation and review of laboratory results Normal [facility] Basic metabolic 1998 panelon 07-09-2023 Anion gap [Moles/Vol] 10 mmol/L 3 - 13 mmol/L [facility] Calcium [Mass/Vol] 8.3 mg/dL Low 8.4 - 10. 4 mg/dL [facility] Chloride [Moles/Vol] 111 mmol/L High 98 - 10 7 mmol/L [facility] CO2 [Moles/Vol] 20 mmol/L Low 22 - 30 mmol/L [facility] Creatinine [Mass/Vol] 0.68 mg/dL 0.52 - 1.04 mg/dL [facility] GFR/1.73 sq M.predicted MDRD (S/P/Bld) [Vol rate/Area] - PINF [facility] Comment on above: Calculation based on the Chronic Kidney Disease Epidemiology Collaboration (CKD-EPI) equation refit without adjustment for race Glucose [Mass/Vol] 86 mg/dL 70 - 100 mg/dL [facility] Interpretation and review of laboratory results Abnormal [facility] Potassium [Moles/Vol] 3.4 mmol/L Low 3.5 - 5.1 mmol/L [facility] Sodium [Moles/Vol] 141 mmol/L 135 - 145 mmol/L [facility] Urea nitrogen [Mass/Vol] 9 mg/dL 7 - 17 mg/dL [facility] CBC panel Auto (Bld)Ordered By: Amanda Cedillo on 07-09-2023 Erythrocyte distribution width (RBC) [Ratio] 14.8 % High 11.5 - 14.5 % [facility] Hematocrit (Bld) [Volume fraction] 31.1 % Low 35.0 - 47.0 % [facility] Hemoglobin (Bld) [Mass/Vol] 10.3 g/dL Low 11.7 - 16.0 g/dL [facility] Interpretation and review of laboratory results Abnormal [facility] MCH (RBC) [Entitic mass] 28.7 pg 26.0 - 34.0 pg [facility] MCHC (RBC) [Mass/Vol] 33.2 % 32.0 - 36.0 % [facility] MCV (RBC) [Entitic vol] 86.3 fL 80.0 - 98.0 fL [facility] Platelet mean volume (Bld) [Entitic vol] 8.4 fL 7.4 - 12.4 fL [facility] Platelets (Bld) [#/Vol] 261 10*3/uL 140 - 440 10*3/uL [facility] RBC (Bld) [#/Vol] 3.61 10*6/uL Low 3.8 - 5.20 10*6/uL [facility] WBC (Bld) [#/Vol] 6.5 10*3/uL 3.6 - 10.7 10*3/uL [facility] No Panel Informationon 07-08 Coagulase-negative Staphylococcus Detected Abnormal Not Detected [facility] Interpretation and review of laboratory results Abnormal [facility] Methodology: Multipl ex PCR [employer] BCID panel can detect the following organisms: [...] IMP, KPC, NDM, OXA-48-like, VIM, and mcr-1. [facility] CBC panel Auto (Bld)Ordered By: Sarahi Haas on 07-07-2023 Erythrocyte distribution width (RBC) [Ratio] 15.0 % High 11.5 - 14.5 % [facility] Hematocrit (Bld) [Volume fraction] 37.3 % 35.0 - 47.0 % [facility] Hemoglobin (Bld) [Mass/Vol] 12.3 g/dL 11.7 - 16.0 g/dL [facility] Interpretation and review of laboratory results Abnormal [facility] MCH (RBC) [Entitic mass] 28.2 pg 26.0 - 34.0 pg [facility] MCHC (RBC) [Mass/Vol] 33.0 % 32.0 - 36.0 % [facility] MCV (RBC) [Entitic vol] 85.4 fL 80.0 - 98.0 fL [facility] Platelet mean volume (Bld) [Entitic vol] 8.3 fL 7.4 - 12.4 fL [facility] Platelets (Bld) [#/Vol] 331 10*3/uL 140 - 440 10*3/uL [facility] RBC (Bld) [#/Vol] 4.37 10*6/uL 3.8 - 5.20 10*6/uL [facility] WBC (Bld) [#/Vol] 6.5 10*3/uL 3.6 - 10.7 10*3/uL [facility] CT Head WO contraston 2022 No significant inter stacey change since May 2022. Fairly extensive bilateral frontal-parietal encephalomalacia Report Dictated on Electronically Signed By: Denilson Gage MD Electronically Signed Date/Time: 07/07/2023 6:28 PM [facility] Patient Name: DIANA PUGH : 1975 Exam [...] of the clivus and with C1 (anteriorly). [facility] Denilson Gage MD - 07/07/2023 Patient Name: DIANA CALABRESE : 1975 [facility]#: [id number] Exam Date/Time: 07/07/2023 18:16 Procedure: CT HEAD [...] Electronically Signed Date/Time: 07/07/2023 6:28 PM EST [facility] [employer] CT Head WO contrastOrdered B y: Denilson Gage on 07-07-2023 [employer] Work Phone: Comprehensive metabolic 1998 panelon 07-07-2023 Albumin [Mass/Vol] 3.4 g/dL Low 3.5 - 5.0 g/dL [facility] [employer] ALP [Catalytic activity/Vol] 91 U/L 38 - 126 U/L [facility] [employer] ALT [Catalytic activity/Vol] 15 U/L 0 - 34 U/L [facility] Anion gap [Moles/Vol] 10 mmol/L 3 - 13 mmol/L [facility] [employer] AST [Catalytic activity/Vol] 26 U/L 15 - 46 U/L [facility] Bilirubin [Mass/Vol] 0.4 mg/dL 0.2 - 1 .3 mg/dL [facility] Calcium [Mass/Vol] 8.8 mg/dL 8.4 - 10. 4 mg/dL [facility] Chloride [Moles/Vol] 105 mmol/L 98 - 10 7 mmol/L [facility] CO2 [Moles/Vol] 23 mmol/L 22 - 30 mmol/L [facility] Creatinine [Mass/Vol] 0.76 mg/dL 0.52 - 1.04 mg/dL [facility] GFR/1.73 sq M.predicted MDRD (S/P/Bld) [Vol rate/Area] - PINF [facility] Comment on above: Calculation based on the Chronic Kidney Disease Epidemiology Collaboration (CKD-EPI) equation refit without adjustment for race Glucose [Mass/Vol] 110 mg/dL High 70 - 100 mg/dL [facility] Interpretation and review of laboratory results Abnormal [facility] Potassium [Moles/Vol] 4.3 mmol/L 3.5 - 5.1 mmol/L [facility] Protein [Mass/Vol] 8.0 g/dL 6.3 - 8.2 g/dL [facility] Sodium [Moles/Vol] 137 mmol/L 135 - 145 mmol/L [facility] Urea nitrogen [Mass/Vol] 20 mg/dL High 7 - 17 mg/dL [facility] Slight hemolysis [facility] Laboratory - Chemistry and C hemistry - challengeon 07-07-2023 Lactate [Moles/Vol] 0.7 mmol/L 0.7 - 2. 0 mmol/L [facility] Troponin I.cardiac [Mass/Vol] ng/mL NINF - 0.034 ng/mL [facility] Glucose [Mass/Vol] 106 mg/dL High 70 - 100 mg/dL [facility] [facility] No Panel Informationon 07-07 Interpretation and review of laboratory results Normal [facility] P Boyds 40 degrees [facility] AL Interval 151 ms [facility] QRS Boyds 39 degrees [facility] QRSD Interval 92 ms [facility] QT Interval 384 ms [facility] QTC Interval 423 ms [facility] T Wave Boyds 24 degrees [facility] Sinus rhythm Compared to ECG 11/03/2016 11:45:08 T-wave abnormality no longer present Electronically Signed On 07-07-2023 17:12:08 EST by Dakotah Dejesus CV Dakotah Schuster MD - 07/07/2023 IMPRESSION: Sinus rhythm Compared to ECG 11/03/2016 11:45:08 T-wave abnormality no longer present Electronically Signed On 07-07-2023 17:12:08 EST by Dakotah Dejesus [facility] Interpretation and review of laboratory results Abnormal [facility], [address] [place], [place] [id number] CLIA ID: [id number] [facility] Radiology Study observation (narrative) [facility] Troponin I.cardiac [Mass/Vol ]on 07-07-2023 Interpretation and review of laboratory results Normal [facility] Patients with high l evels of Biotin oral intake (ie >5 mg/day) may have falsely decreased Troponin levels. [facility] Urinalysis complete panel (U )Ordered By: Gabriella Bonilla on 07-07-2023 Bacteria LM.HPF (Urine sed) [#/Area] Loaded Abnormal Negative /HPF [facility] Bilirubin Ql (U) Negative Negative mg/dL [facility] Clarity (U) Turbid Abnormal Clear [facility] Color (U) Yellow Lt. Yellow [facility] Epithelial cells.squamous LM.HPF (Urine sed) [#/Area] 3-5 [facility] Glucose Ql (U) Normal Normal (<70) mg/dL [facility] Hemoglobin Ql (U) Negative Negative mg/dL [facility] Interpretation and review of laboratory results Abnormal [facility] Ketones (U) [Mass/Vol] Negative Negat golden mg/dL [facility] Leukocyte esterase Test strip Ql (U) Negative Negative Robert/uL [facility] Mucus LM.HPF (Urine sed) [#/Area] Few Negative /LPF [facility] Nitrite Ql (U) Positive Abnormal Negative [facility] Non-Squamous Epithalial Cells, Urine 0-2 Abnormal Negative /HPF [facility] pH (U) 6.0 [pH] 5.0 - 8.0 pH [facility] Protein (U) [Mass/Vol] 10 mg/dL Abnormal Negative [facility] RBC LM.HPF (Urine sed) [#/Area] 0-2 [facility] Specific gravity (U) [Rel density] 1.019 1.005 - 1.030 [facility] Urobilinogen (U) [Mass/Vol] Normal Normal (0-1) mg/dL [facility] WBC LM.HPF (Urine sed) [#/Area] 3-5 [facility] Vital signson 07-07-2023 Heart rate 73 /min bpm [facility] XR Chest Single viewon 07-07 Low lung volumes. No evidence of an acute abnormality. Report Dictated on Electronically Signed By: Jaspal Schwartz MD Electronically Signed Date/Time: 07/07/2023 3:56 PM EST [facility] Patient Name: DIANA PUGH : [...] spine and shoulders. No acute osseous findings. [facility] Jaspal Schwartz M D - 07/07/2023 Patient [...] Electronically Signed Date/Time: 07/07/2023 3:56 PM EST [facility] XR Chest Single viewOrdered By: Jaspal Schwartz on 07-07-2023 [facility] Work Phone: Basophil percentageOrdered B y: Venkat Malin on 06-20-2023 Bilirubin [Mass/Vol] 0.20 mg/dL 0.20-1.00 [facility] Comment on above: For patients on eltr ombopag therapy, use of Dimension [place] TBIL is not recommended. Chloride [Moles/Vol] 110 mmol/L 98-107 [facility] Glucose [Mass/Vol] 97 mg/dL 74-106 [facility] Potassium [Moles/Vol] 3.9 mmol/L 3.5-5.1 [facility] Protein [Mass/Vol] 7.8 g/dL 6.4-8.2 [facility] Sodium [Moles/Vol] 140 mmol/L 136-145 [facility] WBC (Bld) [#/Vol] 6.2 10*3/uL 4.4-11.0 [facility] Blood erythrocytes count (nu mber/volume)Ordered By: Venkat Malin on 06-20-2023 RBC (Bld) [#/Vol] 4.63 10*6/uL 4.2-5.4 [facility] Blood hemoglobin measurement (mass/volume)Ordered By: Venkat Malin on 06-20-2023 Hemoglobin (Bld) [Mass/Vol] 12.9 g/dL 12.0-15.0 [facility] Blood platelet mean volumeOr dered By: Venkat Malin on 06-20-2023 Platelet mean volume (Bld) [Entitic vol] 11.0 fL 6.2-12.0 [facility] Determination of erythrocyte mean corpuscular volume (MCV)Ordered By: Venkat Malin on 06-20-2023 MCV (RBC) [Entitic vol] 90.3 fL 81-99 [facility] Hematocrit Auto (Bld) [Volum e fraction]Ordered By: Venkat Malin on 06-20-2023 Hematocrit (Bld) [Volume fraction] 41.8 % 37-47 [facility] Laboratory - Chemistry and C hemistry - challengeOrdered By: Venkat Malin on 06-20-2023 ALP [Catalytic activity/Vol] 119 U/L 45-117 [facility] ALT [Catalytic activity/Vol] 15 U/L 13-56 [facility] CO2 [Moles/Vol] 28.0 mmol/L 21.0-32.0 [facility] Globulin (S) [Mass/Vol] 5.2 g/dL 2.2-4.2 [facility] Urea nitrogen/Creatinine [Mass ratio] 19.4 mg/mg 10-20 [facility] - Hematology and Cell countsOrdered By: Venkat Malin on 06-20-2023 Erythrocyte distribution width (RBC) [Entitic vol] 49.9 fL 35.1-43.9 [facility] Erythrocyte distribution width (RBC) [Ratio] 15.1 % 11.6-14.6 [facility] MCH (RBC) [Entitic mass] 27.9 pg 27.0-32.0 [facility] MCHC Auto (RBC) [Mass/Vol]Or dered By: Venkat Malin on 06-20-2023 MCHC (RBC) [Mass/Vol] 30.9 g/dL 32-36 [facility] No Panel InformationOrdered By: Venkat Malin on 06-20-2023 Estimated GFR (MDRD) Amer 95 mL/min >60 [facility] Comment on above: GFR Calc Estimated GFR (MDRD) Non-Af Amer 79 mL/min >60 [facility] Comment on above: Non- GFR Calc Platelets bldOrdered By: Sarah Malin on 06-20-2023 Platelets (Bld) [#/Vol] 321 10*3/uL 150-450 [facility] Serum or plasma albumin kavin urement (mass/volume)Ordered By: Venkat Malin on 06-20-2023 Albumin [Mass/Vol] 2.6 g/dL 3.2-5.0 [facility] Serum or plasma albumin/glob ulin mass ratioOrdered By: Venkat Malin on 06-20-2023 Albumin/Globulin [Mass ratio] 0.5 {ratio} 0.9-2.4 [facility] Serum or plasma calcium kavin urement (mass/volume)Ordered By: Venkat Malin on 06-20-2023 Calcium [Mass/Vol] 9.0 mg/dL 8.5-10.1 [facility] Serum or plasma creatinine m easurement (mass/volume)Ordered By: Venkat Malin on 06-20-2023 Creatinine [Mass/Vol] 0.83 mg/dL 0.55-1.02 [facility] Comment on above: The validity of the calculated GFR & GFRAA in patients over 70 years has not been determined. Clinical correlation is essential. Serum or plasma urea nitroge n measurement (mass/volume)Ordered By: Venkat Malin on 06-20-2023 Urea nitrogen [Mass/Vol] 16 mg/dL 7-18 [facility] Thin prep Papanicolaou smear with manual screeningOrdered By: Venkat Malin on 06-20-2023 Thin prep Papanicolaou smear with manual screening 12 U/L 15-37 [facility] Thin prep Papanicolaou smear with manual screening 2 5-15 [facility] US Breast - left limitedon 1 08-08-2022 Skin lesion likely representing a sebaceous cyst or epidermal cyst. ASSESSMENT: Category 2 Benign RECOMMENDATION: Clinical correlation Left Report Dictated on Electronically Signed By: Kylah Perez MD Electronically Signed Date/Time: 06/08/2023 3:24 PM [facility] Name[facility]IA[facility] 1975 [id number] Exam Date/Time: 06/08/2023 15:01 Procedure: BI US [...] cyst. The underlying breast parenchyma is normal. [facility] Kylah Perez MD - 06/08/2023 [...] Electronically Signed Date/Time: 06/08/2023 3:24 PM EST [facility] Radiology Study observation (narrative) [facility] US Breast - left limitedOrde red By: Kylah Perez on 06-08-2023 [facility] [employer] Work Phone: No Panel InformationOrdered By: Venkat Malin on 04-26-2023 Carbamazepine (Tegretol) Level < 0.5 ug/mL 4.0-12.0 [facility] Basophil percentageOrdered B y: Venkat Malin on 02-28-2023 Bilirubin [Mass/Vol] 0.40 mg/dL 0.20-1.00 [facility] Comment on above: For patients on eltr ombopag therapy, use of Dimension [place] TBIL is not recommended. Chloride [Moles/Vol] 111 mmol/L 98-107 [facility] Glucose [Mass/Vol] 88 mg/dL 74-106 [facility] Potassium [Moles/Vol] 3.6 mmol/L 3.5-5.1 [facility] Protein [Mass/Vol] 7.9 g/dL 6.4-8.2 [facility] Sodium [Moles/Vol] 139 mmol/L 136-145 [facility] WBC (Bld) [#/Vol] 7.3 10*3/uL 4.4-11.0 [facility] Blood erythrocytes count (nu mber/volume)Ordered By: Venkat Malin on 02-28-2023 RBC (Bld) [#/Vol] 4.50 10*6/uL 4.2-5.4 [facility] Blood hemoglobin measurement (mass/volume)Ordered By: Venkat Malin on 02-28-2023 Hemoglobin (Bld) [Mass/Vol] 12.8 g/dL 12.0-15.0 [facility] Blood platelet mean volumeOr dered By: Venkat Malin on 02-28-2023 Platelet mean volume (Bld) [Entitic vol] 11.0 fL 6.2-12.0 [facility] Determination of erythrocyte mean corpuscular volume (MCV)Ordered By: Venkat Malin on 02-28-2023 MCV (RBC) [Entitic vol] 90.0 fL 81-99 [facility] Hematocrit Auto (Bld) [Volum e fraction]Ordered By: Venkat Malin on 02-28-2023 Hematocrit (Bld) [Volume fraction] 40.5 % 37-47 [facility] - Chemistry and C hemistry - challengeOrdered By: Venkat Malin on 02-28-2023 ALP [Catalytic activity/Vol] 126 U/L 45-117 [facility] ALT [Catalytic activity/Vol] 20 U/L 13-56 [facility] CO2 [Moles/Vol] 23.0 mmol/L 21.0-32.0 [facility] Globulin (S) [Mass/Vol] 5.2 g/dL 2.2-4.2 [facility] Urea nitrogen/Creatinine [Mass ratio] 17.6 mg/mg 10-20 [facility] - Hematology and Cell countsOrdered By: Venkat Malin on 02-28-2023 Erythrocyte distribution width (RBC) [Entitic vol] 50.6 fL 35.1-43.9 [facility] Erythrocyte distribution width (RBC) [Ratio] 15.3 % 11.6-14.6 [facility] MCH (RBC) [Entitic mass] 28.4 pg 27.0-32.0 [facility] MCHC Auto (RBC) [Mass/Vol]Or dered By: Venkat Malin on 02-28-2023 MCHC (RBC) [Mass/Vol] 31.6 g/dL 32-36 [facility] No Panel InformationOrdered By: Venkat Malin on 02-28-2023 Estimated GFR (MDRD) Amer 108 mL/min >60 [facility] Comment on above: GFR Calc Estimated GFR (MDRD) Non-Af Amer 90 mL/min >60 [facility] Comment on above: Non- GFR Calc Miscellaneous Test See comment [facility] Comment on above: TEST RESULTS LIMITSC [...] 02-28-2023 Platelets (Bld) [#/Vol] 344 10*3/uL 150-450 [facility] Serum or plasma albumin kavin urement (mass/volume)Ordered By: Venkat Malin on 02-28-2023 Albumin [Mass/Vol] 2.7 g/dL 3.2-5.0 [facility] Serum or plasma albumin/glob ulin mass ratioOrdered By: Venkat Malin on 02-28-2023 Albumin/Globulin [Mass ratio] 0.5 {ratio} 0.9-2.4 [facility] Serum or plasma calcium kavin urement (mass/volume)Ordered By: Venkat Malin on 02-28-2023 Calcium [Mass/Vol] 8.8 mg/dL 8.5-10.1 [facility] Serum or plasma creatinine m easurement (mass/volume)Ordered By: Venkat Malin on 02-28-2023 Creatinine [Mass/Vol] 0.74 mg/dL 0.55-1.02 [facility] Comment on above: The validity of the calculated GFR & GFRAA in patients over 70 years has not been determined. Clinical correlation is essential. Serum or plasma urea nitroge n measurement (mass/volume)Ordered By: Venkat Malin on 02-28-2023 Urea nitrogen [Mass/Vol] 13 mg/dL 7-18 [facility] Thin prep Papanicolaou smear with manual screeningOrdered By: Venkat Malin on 02-28-2023 Thin prep Papanicolaou smear with manual screening 11 U/L 15-37 [facility] Thin prep Papanicolaou smear with manual screening 5 5-15 [facility] Basophil percentageOrdered B y: Venkat Malin on 12-29-2022 Bilirubin [Mass/Vol] 0.30 mg/dL 0.20-1.00 [facility] Comment on above: For patients on eltr ombopag therapy, use of Dimension [place] TBIL is not recommended. Chloride [Moles/Vol] 110 mmol/L 98-107 [facility] Glucose [Mass/Vol] 93 mg/dL 74-106 [facility] Potassium [Moles/Vol] 3.6 mmol/L 3.5-5.1 [facility] Protein [Mass/Vol] 7.8 g/dL 6.4-8.2 [facility] Sodium [Moles/Vol] 141 mmol/L 136-145 [facility] WBC (Bld) [#/Vol] 6.6 10*3/uL 4.4-11.0 [facility] Blood erythrocytes count (nu mber/volume)Ordered By: Venkat Malin on 12-29-2022 RBC (Bld) [#/Vol] 4.53 10*6/uL 4.2-5.4 [facility] Blood hemoglobin measurement (mass/volume)Ordered By: Venkat Malin on 12-29-2022 Hemoglobin (Bld) [Mass/Vol] 12.5 g/dL 12.0-15.0 [facility] Blood platelet mean volumeOr dered By: Venkat Malin on 12-29-2022 Platelet mean volume (Bld) [Entitic vol] 10.7 fL 6.2-12.0 [facility] Determination of erythrocyte mean corpuscular volume (MCV)Ordered By: Venkat Malin on 12-29-2022 MCV (RBC) [Entitic vol] 90.7 fL 81-99 [facility] Hematocrit Auto (Bld) [Volum e fraction]Ordered By: Venkat Malin on 12-29-2022 Hematocrit (Bld) [Volume fraction] 41.1 % 37-47 [facility] - Chemistry and C hemistry - challengeOrdered By: Venkat Malin on 12-29-2022 ALP [Catalytic activity/Vol] 116 U/L 45-117 [facility] ALT [Catalytic activity/Vol] 24 U/L 13-56 [facility] CO2 [Moles/Vol] 25.0 mmol/L 21.0-32.0 [facility] Globulin (S) [Mass/Vol] 5.1 g/dL 2.2-4.2 [facility] Urea nitrogen/Creatinine [Mass ratio] 19.8 mg/mg 10-20 [facility] - Hematology and Cell countsOrdered By: Venkat Malin on 12-29-2022 Erythrocyte distribution width (RBC) [Entitic vol] 49.2 fL 35.1-43.9 [facility] Erythrocyte distribution width (RBC) [Ratio] 14.9 % 11.6-14.6 [facility] MCH (RBC) [Entitic mass] 27.6 pg 27.0-32.0 [facility] Auto (RBC) [Mass/Vol]Or dered By: Venkat Malin on 12-29-2022 MCHC (RBC) [Mass/Vol] 30.4 g/dL 32-36 [facility] No Panel InformationOrdered By: Venkat Malin on 12-29-2022 Estimated GFR (MDRD) Amer 91 mL/min >60 [facility] Comment on above: GFR Calc Estimated GFR (MDRD) Non-Af Amer 75 mL/min >60 [facility] Comment on above: Non- GFR Calc Platelets bldOrdered By: Sarah Malin on 12-29-2022 Platelets (Bld) [#/Vol] 324 10*3/uL 150-450 [facility] Serum or plasma albumin kavin urement (mass/volume)Ordered By: Venkat Malin on 12-29-2022 Albumin [Mass/Vol] 2.7 g/dL 3.2-5.0 [facility] Serum or plasma albumin/glob ulin mass ratioOrdered By: Venkat Malin on 12-29-2022 Albumin/Globulin [Mass ratio] 0.5 {ratio} 0.9-2.4 [facility] Serum or plasma calcium kavin urement (mass/volume)Ordered By: Venkat Malin on 12-29-2022 Calcium [Mass/Vol] 9.0 mg/dL 8.5-10.1 [facility] Serum or plasma creatinine m easurement (mass/volume)Ordered By: Venkat Malin on 12-29-2022 Creatinine [Mass/Vol] 0.86 mg/dL 0.55-1.02 [facility] Comment on above: The validity of the calculated GFR & GFRAA in patients over 70 years has not been determined. Clinical correlation is essential. Serum or plasma urea nitroge n measurement (mass/volume)Ordered By: Venkat Malin on 12-29-2022 Urea nitrogen [Mass/Vol] 17 mg/dL 7-18 [facility] Thin prep Papanicolaou smear with manual screeningOrdered By: Venkat Malin on 12-29-2022 Thin prep Papanicolaou smear with manual screening 14 U/L 15-37 [facility] Thin prep Papanicolaou smear with manual screening 6 5-15 [facility] CNCOon 11-21-2022 CNCO Letter Text Normal [facility] Basophil percentageOrdered B y: Venkat Malin on 08-31-2022 Bilirubin [Mass/Vol] 0.20 mg/dL 0.20-1.00 [facility] Comment on above: For patients on eltr ombopag therapy, use of Dimension [place] TBIL is not recommended. Chloride [Moles/Vol] 110 mmol/L 98-107 [facility] Glucose [Mass/Vol] 93 mg/dL 74-106 [facility] Potassium [Moles/Vol] 4.2 mmol/L 3.5-5.1 [facility] Protein [Mass/Vol] 7.1 g/dL 6.4-8.2 [facility] Sodium [Moles/Vol] 142 mmol/L 136-145 [facility] WBC (Bld) [#/Vol] 6.6 10*3/uL 4.4-11.0 [facility] Blood erythrocytes count (nu mber/volume)Ordered By: Venkat Malin on 08-31-2022 RBC (Bld) [#/Vol] 4.67 10*6/uL 4.2-5.4 [facility] Blood hemoglobin measurement (mass/volume)Ordered By: Venkat Malin on 08-31-2022 Hemoglobin (Bld) [Mass/Vol] 12.6 g/dL 12.0-15.0 [facility] Blood platelet mean volumeOr dered By: Venkat Malin on 08-31-2022 Platelet mean volume (Bld) [Entitic vol] 11.0 fL 6.2-12.0 [facility] Determination of erythrocyte mean corpuscular volume (MCV)Ordered By: Venkat Malin on 08-31-2022 MCV (RBC) [Entitic vol] 87.8 fL 81-99 [facility] Hematocrit Auto (Bld) [Volum e fraction]Ordered By: Venkat Malin on 08-31-2022 Hematocrit (Bld) [Volume fraction] 41.0 % 37-47 [facility] - Chemistry and C hemistry - challengeOrdered By: Venkat Malin on 08-31-2022 ALP [Catalytic activity/Vol] 112 U/L 45-117 [facility] ALT [Catalytic activity/Vol] 24 U/L 13-56 [facility] CO2 [Moles/Vol] 24.0 mmol/L 21.0-32.0 [facility] Globulin (S) [Mass/Vol] 4.5 g/dL 2.2-4.2 [facility] Urea nitrogen/Creatinine [Mass ratio] 21.6 mg/mg 10-20 [facility] - Hematology and Cell countsOrdered By: Venkat Malin on 08-31-2022 Erythrocyte distribution width (RBC) [Entitic vol] 50.0 fL 35.1-43.9 [facility] Erythrocyte distribution width (RBC) [Ratio] 15.6 % 11.6-14.6 [facility] MCH (RBC) [Entitic mass] 27.0 pg 27.0-32.0 [facility] MCHC Auto (RBC) [Mass/Vol]Or dered By: Venkat Malin on 08-31-2022 MCHC (RBC) [Mass/Vol] 30.7 g/dL 32-36 [facility] No Panel InformationOrdered By: Venkat Malin on 08-31-2022 Estimated GFR (MDRD) Amer 108 mL/min >60 [facility] Comment on above: GFR Calc Estimated GFR (MDRD) Non-Af Amer 89 mL/min >60 [facility] Comment on above: Non- GFR Calc Miscellaneous Test See comment [facility] Comment on above: TEST RESULT LIMITSCa rbamazepine (Tegretol), S <0.5 Low ug/mL 4.0-12.0 In conjunction with other antiepileptic drugs Therapeutic 4.0 - 8.0 Toxicity 9.0 - 12.0 Carbamazepine alone Therapeutic 8.0 - 12.0 Detection Limit = 2.0 <2.0 indicated None Detected Verified by repeat analysis ____ TESTING PERFORMED AT [facility]. ORIGINAL REPORT ON FILE IN LAB CONTAINS ADDITIONAL TEST SITE INFORMATION. Platelets bldOrdered By: Sarah Malin on 08-31-2022 Platelets (Bld) [#/Vol] 354 10*3/uL 150-450 [facility] Serum or plasma albumin kavin urement (mass/volume)Ordered By: Venkat Malin on 08-31-2022 Albumin [Mass/Vol] 2.6 g/dL 3.2-5.0 [facility] Serum or plasma albumin/glob ulin mass ratioOrdered By: Venkat Malin on 08-31-2022 Albumin/Globulin [Mass ratio] 0.6 {ratio} 0.9-2.4 [facility] Serum or plasma calcium kavin urement (mass/volume)Ordered By: Venkat Malin on 08-31-2022 Calcium [Mass/Vol] 8.5 mg/dL 8.5-10.1 [facility] Serum or plasma creatinine m easurement (mass/volume)Ordered By: Venkat Malin on 08-31-2022 Creatinine [Mass/Vol] 0.74 mg/dL 0.55-1.02 [facility] Comment on above: The validity of the calculated GFR & GFRAA in patients over 70 years has not been determined. Clinical correlation is essential. Serum or plasma urea nitroge n measurement (mass/volume)Ordered By: Venkat Malin on 08-31-2022 Urea nitrogen [Mass/Vol] 16 mg/dL 7-18 [facility] Thin prep Papanicolaou smear with manual screeningOrdered By: Venkat Malin on 08-31-2022 Thin prep Papanicolaou smear with manual screening 12 U/L 15-37 [facility] Thin prep Papanicolaou smear with manual screening 8 5-15 [facility] Basophil percentageOrdered B y: Venkat Malin on 06-30-2022 Chloride [Moles/Vol] 107 mmol/L 98-107 [facility] Glucose [Mass/Vol] 100 mg/dL 74-106 [facility] Comment on above: Fasting Glucose resu lt from 100 to 125 mg/dL suggests IMPAIRED HOMEOSTASIS per A.D.A. criteria. Potassium [Moles/Vol] 3.9 mmol/L 3.5-5.1 [facility] Sodium [Moles/Vol] 138 mmol/L 136-145 [facility] WBC (Bld) [#/Vol] 6.4 10*3/uL 4.4-11.0 [facility] Blood erythrocytes count (nu mber/volume)Ordered By: Venkat Malin on 06-30-2022 RBC (Bld) [#/Vol] 4.53 10*6/uL 4.2-5.4 [facility] Blood hemoglobin measurement (mass/volume)Ordered By: Venkat Malin on 06-30-2022 Hemoglobin (Bld) [Mass/Vol] 12.4 g/dL 12.0-15.0 [facility] Blood platelet mean volumeOr dered By: Venkat Malin on 06-30-2022 Platelet mean volume (Bld) [Entitic vol] 10.8 fL 6.2-12.0 [facility] Determination of erythrocyte mean corpuscular volume (MCV)Ordered By: Venkat Malin on 06-30-2022 MCV (RBC) [Entitic vol] 89.4 fL 81-99 [facility] Hematocrit Auto (Bld) [Volum e fraction]Ordered By: Venkat Malin on 06-30-2022 Hematocrit (Bld) [Volume fraction] 40.5 % 37-47 [facility] - Chemistry and C hemistry - challengeOrdered By: Venkat Malin on 06-30-2022 CO2 [Moles/Vol] 24.0 mmol/L 21.0-32.0 [facility] Urea nitrogen/Creatinine [Mass ratio] 26.5 mg/mg 10-20 [facility] - Hematology and Cell countsOrdered By: Venkat Malin on 06-30-2022 Erythrocyte distribution width (RBC) [Entitic vol] 49.1 fL 35.1-43.9 [facility] Erythrocyte distribution width (RBC) [Ratio] 14.9 % 11.6-14.6 [facility] MCH (RBC) [Entitic mass] 27.4 pg 27.0-32.0 [facility] MCHC Auto (RBC) [Mass/Vol]Or dered By: Venkat Malin on 06-30-2022 MCHC (RBC) [Mass/Vol] 30.6 g/dL 32-36 [facility] No Panel InformationOrdered By: Venkat Malin on 06-30-2022 Estimated GFR (MDRD) Amer 95 mL/min >60 [facility] Comment on above: GFR Calc Estimated GFR (MDRD) Non-Af Amer 79 mL/min >60 [facility] Comment on above: Non- GFR Calc Platelets bldOrdered By: Pet er Dea on 06-30-2022 Platelets (Bld) [#/Vol] 285 10*3/uL 150-450 [facility] Serum or plasma calcium kavin urement (mass/volume)Ordered By: Venkat Malin on 06-30-2022 Calcium [Mass/Vol] 9.1 mg/dL 8.5-10.1 [facility] Serum or plasma creatinine m easurement (mass/volume)Ordered By: Venkat Malin on 06-30-2022 Creatinine [Mass/Vol] 0.83 mg/dL 0.55-1.02 [facility] Comment on above: The validity of the calculated GFR & GFRAA in patients over 70 years has not been determined. Clinical correlation is essential. Serum or plasma urea nitroge n measurement (mass/volume)Ordered By: Venkat Malin on 06-30-2022 Urea nitrogen [Mass/Vol] 22 mg/dL 7-18 [facility] Thin prep Papanicolaou smear with manual screeningOrdered By: Venkat Malin on 06-30-2022 Thin prep Papanicolaou smear with manual screening 7 5-15 [facility] Absolute lymphocyte counton 02-28-2022 Lymphocytes Auto (Unsp spec) [#/Vol] 1.92 10*3/uL 0.83-4.51 [facility] Work Phone: Basophil percentageon 2021 Basophils/100 WBC (Bld) 1.3 % 0-1 [facility] Work Phone: Bilirubin [Mass/Vol] 0.40 mg/dL 0.20-1.00 [facility] Work Phone: Comment on above: For patients on eltr ombopag therapy, use of Dimension [place] TBIL is not recommended. Chloride [Moles/Vol] 110 mmol/L 98-107 [facility] Work Phone: Eosinophils/100 WBC (Bld) 2.9 % 0-5 [facility] Work Phone: Glucose [Mass/Vol] 81 mg/dL 74-106 [facility] Work Phone: Neutrophils (Bld) [#/Vol] 2.7 10*3/uL 2.0-7.7 [facility] Work Phone: Neutrophils/100 WBC (Bld) 52.4 % 47-70 [facility] Work Phone: Potassium [Moles/Vol] 3.9 mmol/L 3.5-5.1 [facility] Work Phone: Protein [Mass/Vol] 7.2 g/dL 6.4-8.2 [facility] Work Phone: Sodium [Moles/Vol] 139 mmol/L 136-145 [facility] Work Phone: WBC (Bld) [#/Vol] 5.2 10*3/uL 4.4-11.0 [facility] Work Phone: Blood erythrocytes count (nu mber/volume)on 02-28-2022 RBC (Bld) [#/Vol] 5.12 10*6/uL 4.2-5.4 [facility] Work Phone: Blood hemoglobin measurement (mass/volume)on 02-28-2022 Hemoglobin (Bld) [Mass/Vol] 15.5 g/dL 12.0-15.0 [facility] Work Phone: Blood lymphocytes/100 leukoc yteson 02-28-2022 Lymphocytes/100 WBC (Bld) 36.7 % 19-41 [facility] Work Phone: Blood monocytes/100 leukocyt eson 02-28-2022 Monocytes/100 WBC (Bld) 6.3 % 0-10 [facility] Work Phone: Blood platelet mean volumeon 02-28-2022 Platelet mean volume (Bld) [Entitic vol] 12.2 fL 6.2-12.0 [facility] Work Phone: Determination of erythrocyte mean corpuscular volume (MCV)on 02-28-2022 MCV (RBC) [Entitic vol] 92.0 fL 81-99 [facility] Work Phone: Hematocrit Auto (Bld) [Volum e fraction]on 02-28-2022 Hematocrit (Bld) [Volume fraction] 47.1 % 37-47 [facility] Work Phone: Laboratory - Chemistry and C hemistry - challengeon 02-28-2022 ALP [Catalytic activity/Vol] 124 U/L 45-117 [facility] Work Phone: ALT [Catalytic activity/Vol] 49 U/L 13-56 [facility] Work Phone: CO2 [Moles/Vol] 22.0 mmol/L 21.0-32.0 [facility] Work Phone: Globulin (S) [Mass/Vol] 4.2 g/dL 2.2-4.2 [facility] Work Phone: Urea nitrogen/Creatinine [Mass ratio] 26.4 mg/mg 10-20 [facility] Work Phone: Laboratory - Hematology and Cell countson 02-28-2022 Erythrocyte distribution width (RBC) [Entitic vol] 46.6 fL 35.1-43.9 [facility] Work Phone: Erythrocyte distribution width (RBC) [Ratio] 13.7 % 11.6-14.6 [facility] Work Phone: [phone] Immature granulocytes/100 WBC (Bld) 0.400 % 0.0-0.9 [facility] Work Phone: Comment on above: IG% - Immature Granu locytes (promyelocytes, myelocytes and metamyelocytes) > 1% indicates that a LEFT SHIFT is Present. MCH (RBC) [Entitic mass] 30.3 pg 27.0-32.0 [facility] Work Phone: Nucleated RBC/100 WBC (Bld) [Ratio] 0 % 0-5 [facility] Work Phone: MCHC Auto (RBC) [Mass/Vol]on 02-28-2022 MCHC (RBC) [Mass/Vol] 32.9 g/dL 32-36 [facility] Work Phone: No Panel Informationon 02-28 Carbamazepine (Tegretol) Level < 0.5 ug/mL 4.0-12.0 [facility] Work Phone: Estimated GFR (MDRD) Amer 136 mL/min >60 [facility] Work Phone: Comment on above: GFR Calc Estimated GFR (MDRD) Non-Af Amer 113 mL/min >60 [facility] Work Phone: Comment on above: Non- GFR Calc Platelets bldon 02-28-2022 Platelets (Bld) [#/Vol] 208 10*3/uL 150-450 [facility] Work Phone: Serum or plasma albumin kavin urement (mass/volume)on 02-28-2022 Albumin [Mass/Vol] 3.0 g/dL 3.2-5.0 [facility] Work Phone: Serum or plasma albumin/glob ulin mass ratioon 02-28-2022 Albumin/Globulin [Mass ratio] 0.7 {ratio} 0.9-2.4 [facility] Work Phone: Serum or plasma calcium kavin urement (mass/volume)on 02-28-2022 Calcium [Mass/Vol] 9.0 mg/dL 8.5-10.1 [facility] Work Phone: Serum or plasma creatinine m easurement (mass/volume)on 02-28-2022 Creatinine [Mass/Vol] 0.61 mg/dL 0.55-1.02 [facility] Work Phone: Comment on above: The validity of the calculated GFR & GFRAA in patients over 70 years has not been determined. Clinical correlation is essential. Serum or plasma urea nitroge n measurement (mass/volume)on 02-28-2022 Urea nitrogen [Mass/Vol] 16 mg/dL 7-18 [facility] Work Phone: Thin prep Papanicolaou smear with manual screeningon 02-28-2022 Thin prep Papanicolaou smear with manual screening 23 U/L 15-37 [facility] Work Phone: Thin prep Papanicolaou smear with manual screening 7 5-15 [facility] Work Phone: Basophil percentageon 2021 Bilirubin [Mass/Vol] 0.30 mg/dL 0.20-1.00 [facility] Work Phone: Comment on above: For patients on eltr ombopag therapy, use of Dimension [place] TBIL is not recommended. Chloride [Moles/Vol] 112 mmol/L 98-107 [facility] Work Phone: Glucose [Mass/Vol] 95 mg/dL 74-106 [facility] Work Phone: Potassium [Moles/Vol] 3.6 mmol/L 3.5-5.1 [facility] Work Phone: Protein [Mass/Vol] 6.6 g/dL 6.4-8.2 [facility] Work Phone: Sodium [Moles/Vol] 143 mmol/L 136-145 [facility] Work Phone: WBC (Bld) [#/Vol] 5.8 10*3/uL 4.4-11.0 [facility] Work Phone: Blood erythrocytes count (nu mber/volume)on 12-29-2021 RBC (Bld) [#/Vol] 4.57 10*6/uL 4.2-5.4 [facility] Work Phone: Blood hemoglobin measurement (mass/volume)on 12-29-2021 Hemoglobin (Bld) [Mass/Vol] 13.5 g/dL 12.0-15.0 [facility] Work Phone: Blood platelet mean volumeon 12-29-2021 Platelet mean volume (Bld) [Entitic vol] 12.6 fL 6.2-12.0 [facility] Work Phone: Determination of erythrocyte mean corpuscular volume (MCV)on 12-29-2021 MCV (RBC) [Entitic vol] 93.7 fL 81-99 [facility] Work Phone: Hematocrit Auto (Bld) [Volum e fraction]on 12-29-2021 Hematocrit (Bld) [Volume fraction] 42.8 % 37-47 [facility] Work Phone: Laboratory - Chemistry and C hemistry - challengeon 12-29-2021 ALP [Catalytic activity/Vol] 106 U/L 45-117 [facility] Work Phone: ALT [Catalytic activity/Vol] 30 U/L 13-56 [facility] Work Phone: CO2 [Moles/Vol] 24.0 mmol/L 21.0-32.0 [facility] Work Phone: Globulin (S) [Mass/Vol] 3.7 g/dL 2.2-4.2 [facility] Work Phone: Urea nitrogen/Creatinine [Mass ratio] 21.0 mg/mg 10-20 [facility] Work Phone: Laboratory - Hematology and Cell countson 12-29-2021 Erythrocyte distribution width (RBC) [Entitic vol] 45.9 fL 35.1-43.9 [facility] Work Phone: Erythrocyte distribution width (RBC) [Ratio] 13.3 % 11.6-14.6 [facility] Work Phone: MCH (RBC) [Entitic mass] 29.5 pg 27.0-32.0 [facility] Work Phone: MCHC Auto (RBC) [Mass/Vol]on 12-29-2021 MCHC (RBC) [Mass/Vol] 31.5 g/dL 32-36 [facility] Work Phone: No Panel Informationon 12-29 Estimated GFR (MDRD) Amer 113 mL/min >60 [facility] Work Phone: Comment on above: GFR Calc Estimated GFR (MDRD) Non-Af Amer 93 mL/min >60 [facility] Work Phone: Comment on above: Non- GFR Calc Platelets bldon 12-29-2021 Platelets (Bld) [#/Vol] 241 10*3/uL 150-450 [facility] Work Phone: Serum or plasma albumin kavin urement (mass/volume)on 12-29-2021 Albumin [Mass/Vol] 2.9 g/dL 3.2-5.0 [facility] Work Phone: Serum or plasma albumin/glob ulin mass ratioon 12-29-2021 Albumin/Globulin [Mass ratio] 0.8 {ratio} 0.9-2.4 [facility] Work Phone: Serum or plasma calcium kavin urement (mass/volume)on 12-29-2021 Calcium [Mass/Vol] 8.5 mg/dL 8.5-10.1 [facility] Work Phone: Serum or plasma creatinine m easurement (mass/volume)on 12-29-2021 Creatinine [Mass/Vol] 0.72 mg/dL 0.55-1.02 [facility] Work Phone: Comment on above: The validity of the calculated GFR & GFRAA in patients over 70 years has not been determined. Clinical correlation is essential. Serum or plasma urea nitroge n measurement (mass/volume)on 12-29-2021 Urea nitrogen [Mass/Vol] 15 mg/dL 7-18 [facility] Work Phone: Thin prep Papanicolaou smear with manual screeningon 12-29-2021 Thin prep Papanicolaou smear with manual screening 16 U/L 15-37 [facility] Work Phone: Thin prep Papanicolaou smear with manual screening 7 5-15 [facility] Work Phone: Absolute lymphocyte counton 09-28-2021 Lymphocytes Auto (Unsp spec) [#/Vol] 2.91 10*3/uL 0.83-4.51 [facility] Work Phone: Basophil percentageon 2021 Basophils/100 WBC (Bld) 0.7 % 0-1 [facility] Work Phone: Bilirubin [Mass/Vol] 0.20 mg/dL 0.20-1.00 [facility] Work Phone: Comment on above: For patients on eltr ombopag therapy, use of [place] TBIL is not recommended. Chloride [Moles/Vol] 111 mmol/L 98-107 [facility] Work Phone: Eosinophils/100 WBC (Bld) 2.8 % 0-5 [facility] Work Phone: Glucose [Mass/Vol] 93 mg/dL 74-106 [facility] Work Phone: Neutrophils (Bld) [#/Vol] 3.5 10*3/uL 2.0-7.7 [facility] Work Phone: Neutrophils/100 WBC (Bld) 49.0 % 47-70 [facility] Work Phone: Potassium [Moles/Vol] 3.7 mmol/L 3.5-5.1 [facility] Work Phone: Protein [Mass/Vol] 7.0 g/dL 6.4-8.2 [facility] Work Phone: Sodium [Moles/Vol] 139 mmol/L 136-145 [facility] Work Phone: WBC (Bld) [#/Vol] 7.1 10*3/uL 4.4-11.0 [facility] Work Phone: Blood erythrocytes count (nu mber/volume)on 09-28-2021 RBC (Bld) [#/Vol] 4.96 10*6/uL 4.2-5.[address] [facility] Phone: Blood hemoglobin measurement (mass/volume)on 09-28-2021 Hemoglobin (Bld) [Mass/Vol] 15.0 g/dL 12.0-15.0 [facility] Work Phone: Blood lymphocytes/100 leukoc yteson 09-28-2021 Lymphocytes/100 WBC (Bld) 40.9 % 19-41 [facility] Work Phone: Blood monocytes/100 leukocyt eson 09-28-2021 Monocytes/100 WBC (Bld) 6.5 % 0-10 [facility] Work Phone: Blood platelet mean volumeon 09-28-2021 Platelet mean volume (Bld) [Entitic vol] 12.3 fL 6.2-12.0 [facility] Work Phone: Determination of erythrocyte mean corpuscular volume (MCV)on 09-28-2021 MCV (RBC) [Entitic vol] 88.5 fL 81-99 [facility] Work Phone: Hematocrit Auto (Bld) [Volum e fraction]on 09-28-2021 Hematocrit (Bld) [Volume fraction] 43.9 % 37-47 [facility] Work Phone: Laboratory - Chemistry and C hemistry - challengeon 09-28-2021 ALP [Catalytic activity/Vol] 130 U/L 45-117 [facility] Work Phone: ALT [Catalytic activity/Vol] 26 U/L 13-56 [facility] Work Phone: CO2 [Moles/Vol] 23.0 mmol/L 21.0-32.0 [facility] Work Phone: Globulin (S) [Mass/Vol] 4.0 g/dL 2.2-4.2 [facility] Work Phone: Urea nitrogen/Creatinine [Mass ratio] 35.9 mg/mg 10-20 [facility] Work Phone: Laboratory - Hematology and Cell countson 09-28-2021 Erythrocyte distribution width (RBC) [Entitic vol] 43.6 fL 35.1-43.9 [facility] Work Phone: Erythrocyte distribution width (RBC) [Ratio] 13.6 % 11.6-14.6 [facility] Work Phone: Immature granulocytes/100 WBC (Bld) 0.100 % 0.0-0.9 [facility] Work Phone: Comment on above: IG% - Immature Granu locytes (promyelocytes, myelocytes and metamyelocytes) > 1% indicates that a LEFT SHIFT is Present. MCH (RBC) [Entitic mass] 30.2 pg 27.0-32.0 [facility] Work Phone: Nucleated RBC/100 WBC (Bld) [Ratio] 0 % 0-5 [facility] Work Phone: MCHC Auto (RBC) [Mass/Vol]on 09-28-2021 MCHC (RBC) [Mass/Vol] 34.2 g/dL 32-36 [facility] Work Phone: No Panel Informationon 09-28 Carbamazepine (Tegretol) Level < 0.5 ug/mL 4.0-12.0 [facility] Work Phone: Estimated GFR (MDRD) Amer 170 mL/min >60 [facility] Work Phone: Comment on above: GFR Calc Estimated GFR (MDRD) Non-Af Amer 141 mL/min >60 [facility] Work Phone: Comment on above: Non- GFR Calc Platelets bldon 09-28-2021 Platelets (Bld) [#/Vol] 247 10*3/uL 150-450 [facility] Work Phone: Serum or plasma albumin kavin urement (mass/volume)on 09-28-2021 Albumin [Mass/Vol] 3.0 g/dL 3.2-5.0 [facility] Work Phone: Serum or plasma albumin/glob ulin mass ratioon 09-28-2021 Albumin/Globulin [Mass ratio] 0.8 {ratio} 0.9-2.4 [facility] Work Phone: Serum or plasma calcium kavin urement (mass/volume)on 09-28-2021 Calcium [Mass/Vol] 8.6 mg/dL 8.5-10.1 [facility] Work Phone: Serum or plasma creatinine m easurement (mass/volume)on 09-28-2021 Creatinine [Mass/Vol] 0.50 mg/dL 0.55-1.02 [facility] Work Phone: Comment on above: The validity of the calculated GFR & GFRAA in patients over 70 years has not been determined. Clinical correlation is essential. Serum or plasma urea nitroge n measurement (mass/volume)on 09-28-2021 Urea nitrogen [Mass/Vol] 18 mg/dL 7-18 [facility] Work Phone: Thin prep Papanicolaou smear with manual screeningon 09-28-2021 Thin prep Papanicolaou smear with manual screening 11 U/L 15-37 [facility] Work Phone: Thin prep Papanicolaou smear with manual screening 5 5-15 [facility] Work Phone: Basic Metabolic Panelon 12-0 Anion gap [Moles/Vol] 8 mmol/L Normal 3-13 [facility] Comment on above: Performed By: #### B MP3, HEMOG #### [facility] [address] [place] [address] Calcium [Mass/Vol] 9.0 mg/dL Normal 8.4-10.4 [facility] Comment on above: Performed By: #### B MP3, HEMOG #### [facility] [address] [place] [address] CO2 [Moles/Vol] 24 mmol/L Normal 22-30 [facility] Comment on above: Performed By: #### B MP3, HEMOG #### [facility] [address] [place] [address] Creatinine [Mass/Vol] 0.72 mg/dL Normal 0.52-1.25 [facility] Comment on above: Performed By: #### B MP3, HEMOG #### [facility] [address] [place] [address] eGFR OTHER > 90.0 Normal >60 [facility] Comment on above: Result Comment: KDIG O [...] renal tubular creatinine secretion. Performed By: #### Clementina MP3, HEMOG #### [facility] [address], [place] GFR/1.73 sq M.predicted among blacks MDRD (S/P/Bld) [Vol rate/Area] mL/min/{1.73_m2} Normal >60 [facility] Comment on above: Performed By: #### B MP3, HEMOG #### [facility] [address] [place], [place] Glucose [Mass/Vol] 111 mg/dL High 70-100 [facility] Comment on above: Performed By: #### B MP3, HEMOG #### [facility] [address] [place] [address] Urea nitrogen [Mass/Vol] 18 mg/dL Normal 9-20 [facility] Comment on above: Performed By: #### B MP3, HEMOG #### [facility] [address] [place] [address] Chloride [Moles/Vol] 110 mmol/L High 98-107 [facility] Comment on above: Performed By: #### B MP3, HEMOG #### [facility] [address] [place] [address] Potassium [Moles/Vol] 4.1 mmol/L Normal 3.5-5.1 [facility] Comment on above: Performed By: #### B MP3, HEMOG #### [facility] [address] [place] [address] Sodium [Moles/Vol] 141 mmol/L Normal 135-145 [facility] Comment on above: Performed By: #### B MP3, HEMOG #### [facility] [address] [place] [address] Anion gap [Moles/Vol] 8 mmol/L 3 - 13 mmol/L [facility] Calcium [Mass/Vol] 9.0 mg/dL 8.4 - 10. 4 mg/dL [facility] Chloride [Moles/Vol] 110 mmol/L High 98 - 10 7 mmol/L [facility] CO2 [Moles/Vol] 24 mmol/L 22 - 30 mmol/L [facility] Creatinine [Mass/Vol] 0.72 mg/dL 0.52 - 1.25 mg/dL [facility] EGFR IF NonAfrican [place]an >90.0 >60 mL/min [facility] Comment on above: KDIGO guidelines pro [...] 111 mg/dL High 70 - 100 mg/dL [facility] Interpretation and review of laboratory results Abnormal [facility] Potassium [Moles/Vol] 4.1 mmol/L 3.5 - 5.1 mmol/L [facility] Sodium [Moles/Vol] 141 mmol/L 135 - 145 mmol/L [facility] Urea nitrogen (BldV) [Mass/Vol] 18 mg/dL 9 - 20 mg/dL [facility] Test Performed by [id number] [place] [address] LAB [facility] COVID-19on 07-03-2021 Interpretation and review of laboratory results Abnormal [facility] SARS-CoV-2 (COVID-19) RNA ELVIS+probe Ql (Unsp spec) Detected Abnormal Not Detected [facility] Comment on above: DETECTED Expected result: Not Detected _ Method: Real-time, RT-PCR Negative results do not preclude SARS-CoV-2 infection and should not be used as the sole basis for treatment or other patient management decisions. This assay was developed by [employer] and distributed under an Emergency Use Authorization (EUA) granted by the FDA for the qualitative detection of SARS-CoV-2 nucleic acid. Provider and patient fact sheets can be found at https://www.fda.gov/media/073784/download and https://www.fda.gov/media/773508/download. Test Performed by [address] [address] [facility] CR Chest Portableon 07-03-20 21 CR Chest Portable Patient Name: DIANA PUGH Diagnostic Radiology ACCESSION EXAM DATE/TIME PROCEDURE ORDERING PROVIDER [id number] 07/03/2021 16:22 EST CR Chest Portable [id number] RAFAT QIU CPT code 62216 Reason For Exam (CR Chest Portable) fall [...] Transcribed Date and Time: 07/03/2021 4:41 Normal [facility] CR Foot Complete 3+ Views Cachorro moreno 07-03-2021 CR Foot Complete 3+ Views Right Patient Name: DIANA CALABRESE Diagnostic Radiology ACCESSION EXAM DATE/TIME PROCEDURE ORDERING PROVIDER [id number] 07/03/2021 16:22 EST CR Foot Complete 3+ [id number] -RAFAT HANEY Views Right CPT code 17060 Reason For Exam (CR Foot Complete 3+ [...] Transcribed Date and Time: 07/03/2021 5:09 Normal [facility] CR Shoulder 2+ Views Righton 07-03-2021 CR Shoulder 2+ Views Right Patient Name: DIANA CALABRESE Diagnostic Radiology ACCESSION EXAM DATE/TIME PROCEDURE ORDERING PROVIDER [id number] 07/03/2021 16:22 EST CR Shoulder 2+ Views [id number] -RAFTA HANEY Right CPT code 28070 Reason For Exam (CR Shoulder 2+ Views [...] Transcribed Date and Time: 07/03/2021 5:[address] [facility] [address] CERVICAL SPINE WO CONTRAS Ton 07-03-2021 Patient Name: DIANA PUGH Computed Tomography ACCESSION EXAM DATE/TIME PROCEDURE ORDERING PROVIDER [id number] 07/03/2021 16:[address] Spine Cervical w/o [id number] -BLAKE PELAEZ Contrast CPT code 15423 Reason For Exam (CT Spine Cervical w/o [...] Tomography ACCESSION EXAM DATE/TIME PROCEDURE ORDERING PROVIDER [id number] 07/03/2021 16:[address] Spine Cervical w/o 017890 -BLAKE PELAEZ Contrast CPT code 10945 Reason For Exam (CT Spine Cervical w/o [...] WO CONTRASTon 2020 Patient Name: DIANA PUGH Computed Tomography ACCESSION EXAM DATE/TIME PROCEDURE ORDERING PROVIDER [id number] 07/03/2021 16:[address] Head or Brain w/o 270950 -JUANJOSE PATTON Contrast CPT code 09381 Reason For Exam (CT Head or Brain [...] ider - 07/03/2021 [facility]: [id number] ACCESSION EXAM DATE/TIME PROCEDURE ORDERING PROVIDER [id number] 07/03/2021 16:[address] Head or Brain w/o 504812 -JUANJOSE PATTON Contrast CPT code 51964 Reason For Exam (CT Head or Brain [...] Brain w/o Contrast [facility]: [id number] Computed Tomography ACCESSION EXAM DATE/TIME PROCEDURE ORDERING PROVIDER [id number] 07/03/2021 16:[address] Head or Brain w/o 769545 -JUANJOSE PATTON Contrast CPT code 50953 Reason For Exam (CT Head or Brain [...] Transcribed Date and Time: 07/03/2021 4:[address] [facility] [address] Spine Cervical w/o Contra ston 07-03-2021 CT Spine Cervical w/o Contrast Patient Name: DIANA CALABRESE Computed Tomography ACCESSION EXAM DATE/TIME PROCEDURE ORDERING PROVIDER [id number] 07/03/2021 16:[address] Spine Cervical w/o 815113 -BLAKE PELAEZ Contrast CPT code 01671 Reason For Exam (CT Spine Cervical w/o [...] Transcribed Date and Time: 07/03/2021 4:58 Normal [facility] ED [facility] Patient: Diana Calabrese : 1975 Date of Evaluation: 07/03/2021 ED Resident Provider: Rafat Haney MD ED care was supervised by Dr. Patton who independently examined and evaluated the patient. Please see their attestation note for further details. Chief Complaint Chief Complaint Patient presents with ? Fall Per EMS, patient fell out of bed 3ft, from longterm, has laceration to back of head, arrives with C-collar. ? Laceration [place] I was wearing a surgical mask for the entirety of this encounter. Does this patient come from an ECF, SNF, Rehab, Penitentiary or other Congregate setting: Yes (If yes to above patient needs a Covid-19 test) Diana Calabrese is a 45 y.o. 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 [...] and Family: Not on file ? Attends [employer]: Not on file ? Active Member [...] hours as (more content not included)... Normal [facility] ED Provider Note Emergency Department Encounter [facility] EMERGENCY DEPT Patient: Diana Calabrese : 1975 Date of Evaluation: 07/03/2021 ED Supervising Physician: Juanjose Patton MD I independently examined and evaluated Diana Calabrese. In brief, Diana Calabrese is a 45 y.o. female that presents to the emergency department for evaluation after fall at longterm. Focused exam: Awake and alert, no acute [...] course/MDM: Patient presented after a fall at longterm. Imaging reveals no acute traumatic injury. There [...] occasionally words are mis-transcribed.) Juanjose Patton MD [facility] Juanjose Patton MD 07/19/21 0821 Normal [facility] Hemogramon 07-03-2021 Erythrocyte distribution width (RBC) [Ratio] 13.8 % Normal 11.5-14.5 [facility] Comment on above: Performed By: #### B MP3, HEMOG #### [address] [place] [address] [address], [place] Hematocrit (Bld) [Volume fraction] 45.3 % Normal 35.0-47.0 [facility] Comment on above: Performed By: #### B MP3, HEMOG #### [address] [place] [address] [address], [place] Hemoglobin (Bld) [Mass/Vol] 14.9 g/dL Normal 11.7-16.0 [facility] Comment on above: Performed By: #### B MP3, HEMOG #### [address] [place] [address] [address] [place], [place] MCH (RBC) [Entitic mass] 29.8 pg Normal 26.0-34.0 [facility] Comment on above: Performed By: #### B MP3, HEMOG #### [address] [place] [address] [address] [place], [place] MCHC 32.9 % Normal 32.0-36.0 [facility] Comment on above: Performed By: #### B MP3, HEMOG #### [address] [place] [address] [address], [place] MCV (RBC) [Entitic vol] 90.6 fL Normal 79.0-98.0 [facility] Comment on above: Performed By: #### B MP3, HEMOG #### [address] [place] [address] [address], [place] Platelet mean volume (Bld) [Entitic vol] 10.5 fL High 7.4-10.4 [facility] Comment on above: Performed By: #### B MP3, HEMOG #### [facility] [address], [place] Platelets (Bld) [#/Vol] 220 10*3/uL Normal 140-440 [facility] Comment on above: Performed By: #### B MP3, HEMOG #### [facility] [address] [place], [place] RBC (Bld) [#/Vol] 5.00 10*6/uL Normal 3.80-5.20 [facility] Comment on above: Performed By: #### B MP3, HEMOG #### [facility] [address] [place], [place] WBC (Bld) [#/Vol] 7.6 10*3/uL Normal 3.6-10.7 [facility] Comment on above: Performed By: #### B MP3, HEMOG #### [facility] [address] [place], [place] Hemogram (CBC)on 07-03-2021 Hematocrit (Bld) [Volume fraction] 45.3 % 35.0 - 47.0 % [facility] Hemoglobin.gastrointes tinal spec 1 Ql (Stl) 14.9 g/dL 11.7 - 16.0 g/dL [facility] Interpretation and review of laboratory results [...] [#/Vol] 7.6 10*3/uL 3.6 - 10.7 10*3/uL [facility] Test Performed by [facility], [address] [place] [id number] [facility] No Panel Informationon 07-03 Radiology Study observation (narrative) [facility] Work Phone: Radiology Study observation (narrative) [facility] Work Phone: [id number] 07-03-2021 SARS-CoV-2 (COVID-19) RNA ELVIS+probe Ql (Unsp spec) SARS-CoV-2 --> Status: F DETECTED Expected result: Not Detected _ Method: Real-time, RT-PCR Negative results do not preclude SARS-CoV-2 infection and should not be used as the sole basis for treatment or other patient management decisions. This assay was developed by [employer] and distributed under an Emergency Use Authorization (EUA) granted by the FDA for the qualitative detection of SARS-CoV-2 nucleic acid. Provider and patient fact sheets can be found at https://www.fda.gov/media/ 43021/download and https://www.fda.gov/media/ 51103/download. Expected result: Not Detected _ Method: Real-time, RT-PCR Negative results do not preclude SARS-CoV-2 infection and should not be used as the sole basis for treatment or other patient management decisions. This assay was developed by [employer] and distributed under an Emergency Use Authorization (EUA) granted by the FDA for the qualitative detection of SARS-CoV-2 nucleic acid. Provider and patient fact sheets can be found at https://www.fda.gov/media/ 92104/download and https://www.fda.gov/media/ 25384/download. Abnormal [facility] Comment on above: Performed By: #### C OVID #### [address] [address] XR CHEST PORTABLEon 07-03-20 Patient Name: DIANA PUGH Diagnostic Radiology ACCESSION EXAM DATE/TIME PROCEDURE ORDERING PROVIDER [id number] 07/03/2021 16:22 EST CR Chest Portable RAFAT CUBA CPT code 09900 Reason For Exam (CR Chest Portable) fall [...] Radiology ACCESSION EXAM DATE/TIME PROCEDURE ORDERING PROVIDER [id number] 07/03/2021 16:22 EST CR Chest Portable [place] RAFAT QIU CPT code 66294 Reason For Exam (CR Chest Portable) fall [...] CHEST PORTABLEOrdered By: Unknown Result on [facility]03[facility]2021 [facility] (MIN 3 VIEWS)o n 07-03-2021 Patient Name: DIANA PUGH Diagnostic Radiology ACCESSION EXAM DATE/TIME PROCEDURE ORDERING PROVIDER [id number] 07/03/2021 16:22 EST CR Foot Complete 3+ [id number] -RAFAT HANEY Views Right CPT code 79182 Reason For Exam (CR Foot Complete 3+ [...] WENDELL Transcribed Date and Time: 07/03/2021 5:09 [facility] RAD Zak Hicks MD - 07/03/2021 Patient Name: DIANA CALABRESE Diagnostic Radiology ACCESSION EXAM DATE/TIME PROCEDURE ORDERING PROVIDER [id number] 07/03/2021 16:22 EST CR Foot Complete 3+ [id number] NICHOLE Views Right CPT code 79169 Reason For Exam (CR Foot Complete 3+ [...] WENDELL Transcribed Date and Time: 07/03/2021 5:09 [facility] Work [facility]: XR FOOT RIGHT (MIN 3 VIEWS)O rdered By: Zak Hicks on 07-03-2021 [facility] Work [facility]: XR Shoulder Right 2 VWon Patient Name: DIANA MENEZES Diagnostic Radiology ACCESSION EXAM DATE/TIME PROCEDURE ORDERING PROVIDER [id number] 07/03/2021 16:22 EST CR Shoulder 2+ Views RAFAT CUBA Right CPT code 59496 Reason For Exam (CR Shoulder 2+ Views [...] Radiology ACCESSION EXAM DATE/TIME PROCEDURE ORDERING PROVIDER [id number] 07/03/2021 16:22 EST CR Shoulder 2+ Views [id number] -RAFAT HANEY Right CPT code 30213 Reason For Exam (CR Shoulder 2+ Views [...] Signature on File ----Signed By: Aayush Duran [email or web address]: 05/21/2018 2:03 PMSigned: 05/21/2018 2:15 PM Reported By: AAYUSH DURAN M.D. Signed By: AAYUSH DURAN M.D. [facility] US ABDOMEN LIMITEDon 018 US ABDOMEN [...] Electronic Signature on File ----Signed By: Annmarie [email or web address]: 05/21/2018 2:03 PMSigned: 05/21/2018 2:15 PM Reported By: AAYUSH DURAN M.D. Signed By: AAYUSH DURAN M.D. [facility] ANES Katiana 08-23-2017 ANES POST HNO ID: [id number] thor: Desmond Carlton: AnesthesiologyAuthor Type: AnesthesiologistType: Anesthesia PostOpFiled: 08/23/2017 3:23 [...] 23, 2017 : 3:23 PM PAGER/CONTACT #: [phone] [facility] ANES PREOPon 08-23-2017 ANES PREOP HNO ID: [id number] thor: Desmond Carlton: AnesthesiologyAuthor Type: AnesthesiologistType: Anesthesia PreOpFiled: 08/23/2017 11:35 AMNote Text: ANESTHESIOLOGY DAY OF SURGERY NOTESERVICE DATE: 08/23/2017SERVICE TIME: 11:30 AMDOB: 1975Procedure(s) (LRB):HYSTEROSCOPY WITH ENDOMETRIAL ABLATION (N/A)DILATION AND CURETTAGE (N/A)Surgeon(s):Elver J NaplesThere is no height or weight on file [...] RE: Desmond Marte MD PATIENT NAME: Diana AaronardDATE: August 23, 2017 : 11:30 AM CSN: [id number] [facility] BRIEF OP NOTon 08-23-2017 BRIEF OP NOT HNO ID: [id number] thor: Elver Jackson Masoodervice: GynecologyAuthor Type: PhysicianType: Brief Op NoteFiled: 08/23/2017 1:31 PMNote Text:Pre-op dx: menorragiaPost-op dx: sameSurgery: hysteroscopy, DANDC, Chrissy endometrial ablationSurgeon: Elver QuinonesAnesthesia: generalEBL: 0 Normal [facility] HISTORY PHYSICALon 8 HISTORY PHYSICAL HNO ID: [id number] thor: Elver Correiaervice: GynecologyAuthor Type: PhysicianType: HANDPFiled: 08/25/2017 7:27 AMNote Text:[facility]- Surgical History and Physical PUNEET CALABRESE: 1975 AGE: 41 SEX: FMRN: [id number] ACCTNUM: [id number] [facility] [place]: [facility] LOCATION: [address] PHYSICIAN: Elver Quinones M.D.ADMIT DATE: 08/23/2017PREOPERATIVE DIAGNOSIS: Abnormal uterine bleeding, spastic quadriplegia.HISTORY: The patient is a 41-year-old, white female, who was presented tothe office from a longterm for evaluation and treatment of abnormaluterine bleeding. [...] and C, with Chrissy endometrial ablation.Elver Quinones M.D.OB/GYNPJN:[id number]: 08/23/2017 10:49:41T: 08/23/2017 12:42:17Job #: [id number] [facility] NURSING PROGon 08-23-2017 NURSING PROG HNO ID: [id number] thor: Ann (Rn) CALISTA Griderervice: NursingAuthor Type: Registered NurseType: Nursing Progress NoteFiled: 08/23/2017 12:40 PMNote Text: Nursing Progress NotePatient Name: Diana CalabreseMRN: [id number] [place] [address] Quinones, HANDAnil dictated this morning. Consent with [facility] on it. stated he had discussed with POA, but miswrote on consentusing abbrev instead of words. Unable to reach POA at this time forclarification.This note was completed by: Ann Grider, MEGHNA [facility] OPERATIVE NOon 08-23-2017 OPERATIVE NO HNO ID: [id number] thor: Elver Correiaervice: GynecologyAuthor Type: PhysicianType: Operative ReportFiled: 08/25/2017 7:27 AMNote Text:[facility]- Operative ReportDIANA CALABRESEDOB: 1975 AGE: 41 SEX: FMRN: [id number] ACCTNUM: [id number] SVC: OBGYN LOCATION: [id number] PHYSICIAN: Elver Quinones M.D.DATE OF PROCEDURE: 08/23/2017SURGEON: Elver Quinones M.D.CHILD CARE WORKER: NONEANESTHESIA:PREOPERATIVE DIAGNOSIS(ES): Abnormal uterine bleeding.POSTOPERATIVE DIAGNOSIS(ES): Abnormal [...] taken recovery room instable satisfactory condition.PROCEDURE:Elver Quinones M.D.OB/GYNPJN:[id number]: 08/23/2017 13:25:16T: 08/23/2017 22:37:56Job #: [id number] [facility] PROGRESSon 08-23-2017 PROGRESS HNO ID: [id number] thor: Elver JuarzelesService: GynecologyAuthor Type: PhysicianType: Progress NotesFiled: 08/23/2017 12:45 PMNote Text:Pre-op note:Patient is non-communicative secondary to traumatic brain injury. She isscheduled for hysteroscopy, dilatation and curettage, and Minervaendometrial ablation. Consent inadvertantly had "DANDC" for dilatation andcurettage. Patient's doctor and power of state's attorney understand the procedurebeing performed. Patient received medical clearance from Dr. Waters. [facility] PT EDon 08-23-2017 PT ED HNO ID: [id number] thor: Agnieszka WaldronRn) CALISTA Meadervice: (none)Author Type: Registered NurseType: Patient EducationFiled: 08/23/2017 3:22 PMNote Text:POST OP LEARNING RESPONSEINSTRUCTION PROVIDED TO: Caregiver and SNF Nurse CynthiaOD OF INSTRUCTION: Written instruction - handoutsVerbal instructionPATIENT / FAMILY RESPONSE: Verbalizes understanding of: Post -OperativeInstructionsFOLLO W-UP PLAN: Complete - No need for follow-upSUPPLEMENTAL MATERIAL: NoneREFERRAL (RECOMMENDATION): NoneElectronically Signed By: Agnieszka Mead RN In Department: [facility] SURGERY [facility] PT ED HNO ID: [id number] thor: Ann WaldronRn) CALISTA Griderervice: NursingAuthor Type: [...] Signed By: Ann Grider RN [facility] SURGICAL PATHOLOGYon 018 SURGICAL PATHOLOGY [facility]: [id number] Physician: Elver Quinones M.D. FIN AL DIAGNOSISEndometrial, [...] Totally submitted inthree cassettes.Gross examination performed at [facility], [address] [place] [address] [id number] 08/23/2017 7:39:11 PMPatient ID #: [id number] of Report: 08/25/2017Date of Procedure: 08/23/2017Date of Receipt: 08/23/2017Submitted by: Elver Quinones M.D.Location: MEORDiagnostic interpretation performed at [facility], [address] [place] [address]. Normal [facility] Comment on above: Performed By: #### P ATHS ####[facility] [address] [phone] Serum Beta HCG [place]/[facility] /[place]/[facility] use ONLYon 08-23-2017 HCG.beta subunit Qn Negative Normal Negative [facility] Comment on above: Result Comment: Fals e positives and false negatives are rare but have been described. Clinical correlation of the findings is recommended. Performed By: #### B ETAMM ####[facility] [address] [place], [place] [phone] HOSPon 08-22-2017 HOSP Patient:Henrik Calabrese N: Height:6' 2"(1.88 m)Weight:237 lb (107.502 kg)Outpatient Medications as of 08/23/17:norethindrone (AYGESTIN) 5 mg tabletbaclofen (LIORESAL) 20 mg tabletBISACODYL RECTALBlack Cohosh 540 mg capclonazePAM (KLONOPIN) 1 mg tabletferrous sulfate 325 mg (65 mg iron) npntkgYbetr-2-BDZ-EPA-Fish Oil (FISH OIL) 1,000 mg (120 mg-180 [...] ():Nancy Mittal, RN, RN 08/22/2017 4:50 PM SignedSW[facility] Nurse Progress NoteHistory AND Physical:PACC Visit Date: N/Karla DOSHIP Scanned Date: 07/19/17 office notes outdated.Nurse Becky from [place] will try to send a current HANDPLabs Within Last 6 Months:CBC: Date 08/11/17BMP/CMP: Date 08/11/17 AST 435,ALT 644PT: Date 08/11/17PTT: Date 08/11/17Imaging Within Last 12 Months:N/ACardiac Testing:EKG in last 12 Months: Yes: Date: 08/14/17, Comment: SR non-specific STANDT waveabnormalityLast Menstrual Period:LMP Date: unknownRisk Assessment: Medical Date: 08/15/17 Stephanie Chaudhry CNPAnesthesia Review:Email sentNarrative:Resident tierney Pathak [phone] signed by guardian and scanned in epicTransportation by Maurice Conway to accompany patientPre-op Considerations:Quadriplegic ,Chart Check:Jules Mittal RNJanuary 2017 4:31 PMInstructions reviewed with nurse David PREOPERATIVE INSTRUCTIONSNo ref. provider found has scheduled you for your procedure at this surgerycenter:[facility]: [phone] -- [address] [facility] [id number].Please read below carefully for your personalized instructions.Blood [...] surgery.- NO jewelry, body piercings, makeup, nail persian, hairpins or contacts are nara worn the day of surgery.If you develop symptoms such as a fever, cold, or flu, or have other changes toyour health within TWO DAYS of scheduled surgery or the morning of surgery,please contact the surgery center above.Personal Belongings:- Leave ALL valuables and money at home or with family members.For Outpatient Procedures: - YOU MUST HAVE A RESPONSIBLE COMMUNITY OUTREACH COORDINATOR TAKE YOU HOME. A PARTS COUNTERMAN OR CAB DRIVERCANNOT BE MADE A RESPONSIBLE COMMUNITY OUTREACH COORDINATOR.- We recommend that a responsible person stays [...] August 23, 2017 : 11:30 AM CSN: [id number] Lisa Grider RN, RN 08/23/2017 11:50 AM SignedPRE OP LEARNING ASSESSMENTPROCEDURE/SURGERY : SURGERY: Hysteroscopy, DANDC, Endometrial AblationREADINESS TO LEARNCOGNITIVE ABILITY: Confused at timesMOTIVATION TO LEARN: ReluctantFAMILY SUPPORT: caregiver presentPATIENT LEARNS BEST BY: Verbal InstructionFACTORS AFFECTING LEARNING: Other mentally challengedPHYSICAL LIMITATIONS AFFECTING LEARNING: Limited Mobility and Other Limitationsquadriplegic, traumatic brain injuryElectronically Signed By: Ann Grider RN In Department: [facility]ENTERCharla Grider RN, RN 08/23/2017 12:40 PM Signed Nursing Progress NotePatient Name: Diana CalabreseMRN: [id number] [place] [address] Quinones, HILARIO dictated [...] dilatation and curettage.Patient's doctor and power of state's attorney understand the procedure being performed.Patient received medical clearance from Dr. Waters. [facility] NURSING PROGon 08-22-2017 NURSING PROG HNO ID: [id number] thor: Nancy (Rn) CALISTA Mittalervice: (none)Author Type: Registered NurseType: Nursing Progress NoteFiled: 08/22/2017 4:50 PMNote Text:PACC Nurse Progress NoteHistory AND Physical:PACC Visit Date: N/AOutsdarcy HANDP Scanned Date: 07/19/17 office notes outdated.Nurse Becky from [place] will try to send a current HANDPLabs Within Last 6 Months:CBC: Date 08/11/17BMP/CMP: Date 08/11/17 AST 435,ALT 644PT: Date 08/11/17PTT: Date 08/11/17Imaging Within Last 12 Months:N/ACardiac Testing:EKG in last 12 Months: Yes: Date: 08/14/17, Comment: SR non-specific STANDTwave abnormalityLast Menstrual Period:LMP Date: unknownRisk Assessment: Medical Date: 08/15/17 Stephanie Chaudhry CNPAnesthesia Review:Email sentNarrative:Resident of [place] [phone] signed by guardian and scanned in epicTransportation by Maurice Conway to accompany patientPre-op Considerations:Quadriplegic ,Chart Check:Jules Mittal RNJanuary 2017 4:31 PMInstructions reviewed with nurse David PREOPERATIVE INSTRUCTIONSNo ref. provider found has scheduled you for [facility]: [phone] -- [address] [facility] [id number].Please read below carefully for your personalized instructions.Blood [...] new medications after today's visit, please contact thergery center above.Important Reminders:- If you are prescribed inhalers for breathing, continue using them ANDbring them to the surgery center.- Candy, mints, gum and tobacco products are NOT permitted the morning ofsurgery.- Hearing aids, dentures and glasses may be worn the morning of surgery.- NO jewelry, body piercings, makeup, nail persian, hairpins or contactsare to be worn the day of surgery.If you develop symptoms such as a fever, cold, or flu, or have otherchanges to your health within TWO DAYS of scheduled surgery or the morningof surgery, please contact the surgery center above.Personal Belongings:- Leave ALL valuables and money at home or with family members.For Outpatient Procedures: - YOU MUST HAVE A RESPONSIBLE COMMUNITY OUTREACH COORDINATOR TAKE YOU HOME. A PARTS COUNTERMAN OR CABDRIVER CANNOT BE MADE A RESPONSIBLE COMMUNITY OUTREACH COORDINATOR.- We recommend that a responsible person stays [...] aspossible and regret any inconvenience.Nancy Mittal RN [facility] US Pelvis Completeon 017 US Pelvis Complete Patient Name: DIANA PUGH Ultrasound Exam Date/Time 07/21/2017 15:15:00 EST Exam US Pelvis Complete Ordering Physician ELVER QUINONES Accession Number [id number] CPT4 Codes 60617 () Reason For Exam Abnormal uterine bleeding [...] Transcribed Date and Time: 07/21/2017 4:32 Normal [facility] System Vital Signs Date Time Vital Sign Value Performing Clinician Teresa serra 01-20-2025 07:47-0400 Body temperature 97.81 [degF] Danny Balderas MD Work Phone: [facility] 01-20-2025 07:47-0400 Diastolic blood pressure 63 mm[Hg] Danny Balderas MD Work Phone: [facility] 01-20-2025 07:47-0400 Heart rate 84 /min Danny Balderas MD Work Phone: [facility] 01-20-2025 07:47-0400 Respiratory rate 16 /min Danny Balderas MD Work Phone: [facility] 01-20-2025 07:47-0400 SaO2% (BldA) [Mass fraction] 99 % Danny Balderas MD Work Phone: [facility] 01-20-2025 07:47-0400 Systolic blood pressure 96 mm[Hg] Danny Balderas MD Work Phone: [facility] 01-20-2025 06:00-0400 Body mass index (BMI) [Ratio] 26.47 kg/m2 Danny Balderas MD Work Phone: [facility] 01-20-2025 06:00-0400 Body weight 76.66 kg Danny Balderas MD Work Phone: [facility] 01-17-2025 11:37-0400 Body height 170.2 cm Danny Balderas MD Work Phone: [facility] 07-11-2023 16:05-0500 Body temperature 97.11 [degF] Dakotah Dejesus MD Work Phone: [facility] 07-11-2023 16:05-0500 Diastolic blood pressure 58 mm[Hg] Dakotah Dejesus MD Work Phone: [facility] 07-11-2023 16:05-0500 Heart rate 67 /min Dakotah Dejesus MD Work Phone: [facility] [employer] 07-11-2023 16:05-0500 Respiratory rate 18 /min Dakotah Dejesus MD Work Phone: [facility] 07-11-2023 16:05-0500 SaO2% (BldA) [Mass fraction] 95 % Dakotah Dejesus MD Work Phone: [facility] 07-11-2023 16:05-0500 Systolic blood pressure 102 mm[Hg] Dakotah Dejesus MD Work Phone: [facility] 07-10-2023 13:27-0500 Body height 172.7 cm Dakotah Dejesus MD Work Phone: [facility] 07-10-2023 13:00-0500 Body mass index (BMI) [Ratio] 30.71 kg/m2 Dakotah Dejesus MD Work Phone: [facility] 07-10-2023 13:00-0500 Body weight 91.63 kg Dakotah Dejesus MD Work Phone: [facility] 05-09-2023 13:57-0400 Body height 188 cm Zi Wright MD Work Phone: [facility] [employer] 07-03-2021 19:25-0500 Diastolic blood pressure 59 mm[Hg] Juanjose Patton MD Work Phone: [facility] 07-03-2021 19:25-0500 Systolic blood pressure 91 mm[Hg] Juanjose Patton MD Work Phone: [facility] 07-03-2021 19:21-0500 Heart rate 75 /min Juanjose Patton MD Work Phone: [facility] 07-03-2021 19:21-0500 Respiratory rate 15 /min Juanjose Patton MD Work Phone: [facility] 07-03-2021 19:21-0500 SaO2% (BldA) [Mass fraction] 97 % Juanjose Patton MD Work Phone: [facility] 07-03-2021 15:22-0500 Body temperature 98.01 [degF] Juanjose Patton MD Work Phone: [facility] Encounters Encounter Date Encounter Type Care Provider Facility Start: 04-10-2025 End: 04-10-2025 ambulatory Venkat HONEYCUTT Facility:[facility] Start: 02-21-2025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 Collaborative Relationships Disclosed as Indicated for Post-Acute Care: Interdisciplinary Team Engagement: Social Work Referral for: Additional Information: Chart reviewed. Patient admitted to [facility] for treatment of UTI. Blood cultures pending. HX of TBI, Bipolar, Paraplegia. Regular diet. On IV Vancomycin. Met with patient at bedside today. Explained role. [facility] and she would [facility] to return there at discharge. DOUBLE END SEWER tasked to create referral to [facility]. Will need to confirm level of care. DC plan: Return to [facility] Fatuma Palma RN [facility] 07-09-2023 Consult note Formatting of th is note is different from the original. Pharmacy Note Vancomycin Consult Non-OVEN ATTENDANT Diana Calabrese is a 47 y.o. year [...] for the consult. Will continue to follow. [facility] 07-09-2023 Consult note Associated Order (s): IP CONSULT TO INFECTIOUS DISEASES Images from the original note were not included. [facility] - Infectious Diseases Attending Consult Note Reason for Consult: "UTI" Bacteremia History of Present Illness: Patient is 47 year old admitted to [facility] because of mentation changes. History from [...] q24h Yoko M Esterle, DO Stopped at 07/08/23 185 clonazePAM (KlonoPIN) tablet 1 mg 1 mg [...] M Esterle, DO 25 mg at 07/08/23 09 sertraline (Zoloft) tablet 50 mg 50 mg [...] min Stress: No Stress Concern Present (07/08/2023) [facility] [employer] [facility] - Occupational Stress Questionnaire [...] of an acute abnormality. Antimicrobials,Start/End Dates: Ceftriaxone 07/07-9 Vanc 07/09- Impression: CoNS Blood cultures 2/2, [...] accounting for open encounter. Prem Raya MD, [facility] [place], FIDSA [employer] Work Phone: 07-09-2023 Plan of care note [...] medications per MAR, provide a restful environment. [facility] 07-08-2023 History and physical note Department of Family Medicine Attending History and Physical CHIEF COMPLAINT: AMS Reason for Admission: uti History Obtained From: medical records History of Present Illness Diana Calabrese is a 47 y.o. female with PMH per EMR history of Alzheimer's dementia, hypertension, quadriplegia, presents from intermediate facility with concern for altered mental status. [...] FOR SURGERY TODAT (11/03/2016) Constipated Dementia ([facility]) Dysarthria Dysphagia Elevated liver enzymes Epilepsy (HCC) [...] min Stress: No Stress Concern Present (07/08/2023) [facility] [employer] - Occupational Stress Questionnaire [...] results YOKO WATERS DO 07/08/23 9:35 AM [facility] 07-08-2023 History and physical note Department of Family Medicine Attending History and Physical CHIEF COMPLAINT: AMS Reason for Admission: uti History Obtained From: medical records History of Present Illness Diana Calabrese is a 47 y.o. female with PMH per EMR history of Alzheimer's dementia, hypertension, quadriplegia, presents from intermediate facility with concern for altered mental status. [...] min Stress: No Stress Concern Present (07/08/2023) [facility] [employer] - Occupational Stress Questionnaire [...] Await blood culture results YOKO WATERS DO 12/09/23 9:35 AM documented in this encounter [facility] [employer] 07-08-2023 Plan of care note Problem: Knowledge [...] Recommendations to address these barriers include . [facility] [employer] 07-07-2023 Note Formatting of this n ote [...] time. Please reach out if this changes. [employer] Work Phone: 07-07-2023 Note Formatting of this [...] time. Please reach out if this changes. [employer] Work Phone: 07-07-2023 Emergency department Note Bed: 14 Expected date: Expected time: Means of arrival: Comments: Barbara Read RN 07/07/23 1510 [employer] 07-07-2023 Emergency department Note Emergency Department Encounter [facility] ED Patient: Diana Calabrese : 1975 Date of Evaluation: 07/07/2023 ED Provider: Dakotah Dejesus MD Note: I wore an N95 mask and gloves during this encounter. CHIEF COMPLAINT: Altered mental status HPI: Diana Calabrese is a 47 y.o. female with PMH per EMR history of Alzheimer's dementia, hypertension, quadriplegia, presents from intermediate facility with concern for altered mental status. [...] Dakotah Dejesus MD [employer] Dakotah Dejesus MD 07/07/232049 Dakotah Dejesus MD 07/07/232131 Arrived via ems from [facility] co AMS [...] RN 07/07/23 1510 documented in this encounter [facility] 07-07-2023 Emergency department Triage note Arrived via ems from [facility] AMS per staff, A/0 x3 per EMS, patient A/0 x3, GCS 15, able to speak in slow clear sentences and respond to questions, providing limited pmhx, placed on monitor, continue with plan of care, patient with call light within reach [facility] 07-07-2023 Physician Emergency department Note Emergency Department Encounter [facility] ED Patient: Diana Calabrese : 1975 Date of Evaluation: 07/07/2023 ED Provider: Dakotah Dejesus MD Note: I wore an N95 mask and gloves during this encounter. CHIEF COMPLAINT: Altered mental status HPI: Diana Calabrese is a 47 y.o. female with PMH per EMR history of Alzheimer's dementia, hypertension, quadriplegia, presents from intermediate facility with concern for altered mental status. [...] Dakotah Dejesus MD [employer] Dakotah Dejesus MD 07/07/232049 Dakotah Dejesus MD 07/07/232131 [facility] 05-09-2023 History of Presen t illness Narrative Images from the original note were not included. General Surgery History and Physical Zi Wright MD, MPH Patient ID: Diana Calabrese [id number] 47 y.o. 1975 CHIEF COMPLAINT: Chief Complaint Patient presents with Abnormal Breast US ORTHOPAEDIC DOCTOR Abnormal Breast US referral from Dr. Malin HPI: Diana Calabrese is a 47 y.o. female who presents with abnormal US of L breast Patient presents today for evaluation of L breast lesion found on exam and screening US. Patient comes from [facility] and is joined by her transporter. Patient [...] anywhere is her chart both paper from [facility] or from EMR. Patient states that she [...] kg/m Physical Exam Exam conducted with a footwear sales associate present. Constitutional: General: She is not in [...] of Surgery AG [facility] Evaluation note Diagnosis Injury of head, initial encounter- Primary Laceration of scalp, initial encounter documented in this encounter [facility] Work Phone: Evaluation noteNo assessment information available [facility] Work Phone: Evaluation note* Diagnosis Mass of lower inner quadrant of left breast- Primary [facility] Diagnosis Mass of lower inner quadrant of left breast [facility] Diagnosis Urinary tract infection- Primary Urinary tract infection, site not specified Urinary tract infection Urinary tract infection, site not specified [facility] Diagnosis Pain in unspecified joint- Primary [facility] Diagnosis Disorientation Other general symptoms Functional quadriplegia (CMS/HCC) (HCC) Functional quadriplegia Hypotension, unspecified hypotension type Hypotension, unspecified hypotension type documented in this encounter [facility] (narrative)No reason for referral information availableC[facility] Work Phone: Summary Purpose Family History No Family History Records FoundNo Family History Records FoundNo Family History Records FoundNo Family History Records FoundNo Family History Records FoundNo Family History Records FoundNo Family History Records Found Advance Directives No Advanced Directives Records FoundDocuments on File Type Date Recorded Patient Crabber Expl anation ACP-Advance Directive ACP-Power of Founder & Ceo ACP-Power of Founder & Ceo 10/02/2020 3:31 PM PA IN MGNT- POA Latest Code Status on File Code Status Date Activated Date Inactivated Comments Full Code 11/03/2016 4:21 PM 11/04/2016 7:24 PM Full Code 11/03/2016 10:26 AM 11/03/2016 4:10 PM Documents on File Type Date Recorded Patient Crabber Expl anation Advance Directives and Livin g Will 06/08/2023 2:26 PM Latest Code Status on File Code Status Date Activated Date Inactivated Comments Full Code 07/07/2023 10:13 PM 07/11/2023 9:26 PM Documents on File Type Date Recorded Patient Crabber Expl anation Power of Founder & Ceo 01/14/2025 10:25 AM Advance Directives and Livin g Will 06/08/2023 2:26 PM Advance Directives and Livin g Will 01/14/2025 10:25 AM Date Activated Date Inactivated Comments 01/14/2025 11:25 PM 01/20/2025 10:18 PM Date Activated Date Inactivated Comments 07/07/2023 10:13 PM 07/11/2023 9:26 PM Healthcare Agents on File Name Relationship Healthcare Agent Relationship Communication Erin Mora Other Health Care Agent Eric Ba-Clin[employer] Legal Guardian Health Care Agent Blaise Petrella Other First Alternate Health Care Agent Healthcare Agents on File Name Relationship Healthcare Agent Relationship Communication Erin Mora Other Health Care Agent Eric Ba-[employer] Legal Guardian Health Care Agent Blaise Petrella Other First Alternate Health Care Agent Chief Complaint and Reason for Visit Chief Complaint LABWORK SNF LAB WORK Chief Complaint SNF LABWORK Chief Complaint SNF LABWORK LABWORK Chief Complaint SNF LABWORK SNF LABWORK Chief Complaint LABWORK SNF LABWORK Chief Complaint SNF LABWORK SNF LAB WORK LABWORK Chief Complaint SNF LABWORK SNF LAB WORK LABWORK LABWORK Chief Complaint SNF LABWORK SNF LAB WORK LABWORK LABWORK LABWORK Chief Complaint SNF LABWORK SNF LAB WORK LABWORK LABWORK LABWORK LABWORK Chief Complaint SNF LABWORK SNF LAB WORK LABWORK LABWORK LABWORK LABWORK LABWORK Chief Complaint SNF LAB WOR K LABWORK LABWORK LABWORK LABWORK LABWORK LABWORK Chief Complaint SNF LAB WOR K LABWORK LABWORK LABWORK LABWORK LABWORK LABWORK LABWORK Chief Complaint Admit Date LABWORK June 24, 2024 5:00am SNF LAB WORK July 25 4:00am SNF LAB WORK September 03, 2024 5:00am Chief Complaint Admit Date SNF LAB WORK July 25 4:00am SNF LAB WORK September 03, 2024 5:00am SNF LAB WORK October 24, 2024 4 :00am Chief Complaint Admit Date SNF LAB WORK September 03, 2024 5:00am SNF LAB WORK October 24, 2024 4 :00am LABOWRK December 11, 2024 5:00a m Reason for Referral Specialty Diagnoses / Procedures Referred By Juliaac t Referred To Contact Radiology Diagnoses Pain in unspecified joint Procedures CT pelvis wo IV contrast Venkat Malin [address] [place] [address] Referral ID Status Reason Start Date Expiration Date V isits Requested Visits Authorized [id number] Authorized 06/07/2022 12/04/2022 1 1 Specialty Diagnoses / Procedures Referred By Fabian singh Referred To Contact Radiology Diagnoses Pain in unspecified joint Procedures CT lumbar spine wo IV contrast Venkat Malin [address] [place] [address] Referral ID Status Reason Start Date Expiration Date V isits Requested Visits Authorized [id number] Authorized 06/07/2022 12/04/2022 1 1 Additional Source Comments INFORMATION SOURCE (unrecogn ized section and content) DATE CREATED AUTHOR 01/22/2018 [facility] DATE CREATED AUTHOR AUTHOR'S ORGANIZ ATION 01/23/2018 [facility] DATE CREATED AUTHOR AUTHOR'S ORGANIZ ATION 06/20/2018 [facility] [place] DATE CREATED AUTHOR AUTHOR'S ORGANIZ ATION 08/03/2021 [facility] DATE CREATED AUTHOR AUTHOR'S ORGANIZ ATION 11/21/2022 [facility] [employer] [facility] DATE CREATED AUTHOR AUTHOR'S ORGANIZ ATION 01/26/2025 [facility] DATE CREATED AUTHOR AUTHOR'S ORGANIZ ATION 05/31/2025 [facility] Reason for Visit (unrecogniz ed section and content) Reason Comments Fall Per EMS, patient chris macias out of bed 3ft, from longterm, has laceration to back of head, arrives with C-collar. Laceration Reason Comments Abnormal Breast US ORTHOPAEDIC DOCTOR Abnormal Breast U S referral from Dr. Malin Reason Comments Altered Mental Status Per SNF, A/0 x3 pe r EMS Specialty Diagnoses / Procedures Referred By Contac t Referred To Contact Diagnoses Urinary tract infection Procedures . Yoko Waters, DO [address] [place] [address] [facility] [address] [place] [address] Referral ID Status Reason Start Date Expiration Date Visits Re quested Visits Authorized [id number] 1 1 Reason Onset Date Comments Other 01/20/2025 Reason Comments Altered Mental Status Specialty Diagnoses / Procedures Referred By Contac t Referred To Contact Diagnoses Hypotension Disorientation Functional quadriplegia (CMS/HCC) (HCC) Hypotension, unspecified hypotension type Procedures ... Daja Vogel MD [address] [place] [address] Phone: tel: fax: [facility] [address] [place] [phone] Phone: tel: Referral ID Status Reason Start Date Expiration Date Visits Re quested Visits Authorized [id number] 1 1 Scheduled Active and Recently Administ ered Medications (unrecognized section and content) Medication Order 07/01/2021 07/02/2021 07/03/2021 lidocaine-EPINEPHrine 1 %[id number] injection 20 mL 20 mL, IntraDERmal, ONCE, [...] Da Silva RN) 1014 (Given - Provider: Tatinana Da Silva RN) gabapentin (Neurontin) capsule 400 [...] mEq (COMPLETED) 20 mEq, Oral, Once, On Mon07/09/23 at 0930, For 1 dose, Best given [...] RN) 1236 (Given - Provider: Tatianna Da iSlva RN) 1014 (Given - Provider: Tatianna Da [...] Pelaez RN) 1900 (Stopped - Provider: Azucena Godfrey, RN) PRN Medication Order 07/09/2023 07/10/2023 07/11/2023 [...] RN)1234 (See Alternative - Provider: Tatianna Da Silva, MEGHNA)1709 (See Alternative - Provider: Tatianna Da Silva, MEGHNA)2252 (See Alternative - Provider: Azucena Godfrey RN) [...] PRN, itching, Starting on Mon07/09/23 at 2241 Group 3: ondansetron ODT (Zofran-ODT) [...] Jessica Hernandez RN)2139 (Given - Provider: Diane Laguerre, MEGHNA) 0813 (Given - Provider: Erika Gabriel RN)1451 (Given - Provider: Erika Gabriel RN)2100 (Canceled Entry - Provider: Automatic Discharge Provider - Comment: Automatically canceled at discontinue of medication order) clonazePAM (KlonoPIN) tablet 1 mg 1 mg, Oral, 2 times daily, First dose on Mon01/17/25 at 2099, Indications: Seizures 0932 (Given - Provider: Liborio Mendoza RN)2105 (Given - Provider: Diane Laguerre RN) 927 (Given - Provider: Jessica Hernandez RN)2138 (Given - Provider: Diane Laguerre RN) 08 (Given - Provider: Erika Gabriel RN)2099 (Canceled [...] RN) 09 (Given - Provider: Jessica Hernandez RN)2138 [...] RN)2105 (Given - Provider: Diane Laguerre RN) 0929 (Given - Provider: Jessica Hernandez, MEGHNA)2138 (Given - Provider: Diane Laguerre, MEGHNA) 0814 (Given - Provider: Erika Gabriel RN)2099 (Canceled Entry - Provider: Automatic Discharge Provider - Comment: Automatically canceled at discontinue of medication order) lactulose (Chronulac) 10 GM/15ML solution 10 g 10 g (15 mL), Oral, Daily, First dose on Mon01/17/25 at 1999, Indications: Constipation 0935 (Given - Provider: Liborio Mendoza RN) 0928 (Given - Provider: Jessica Hernandez, MEGHNA) 0814 (Given - Provider: Erika Gabriel RN) [...] Nightly, First dose on Mon01/14/25 at 2255 210 (Given - Provider: Diane Laguerre RN) 2139 (Given - Provider: Diane Laguerre, MEGHNA) 2099 (Canceled Entry - Provider: Automatic Discharge Provider - Comment: Automatically canceled at discontinue of medication order) mirtazapine (Remeron) tablet 7.5 mg 7.5 mg, Oral, Nightly, First dose on Mon01/17/25 at 2100, Indications: Appetite stimulant related to major depressive disorder 2105 (Given - Provider: Diane Laguerre RN) 0 (Given - Provider: Diane Laguerre RN) 2100 (Canceled Entry - Provider: Automatic Discharge Provider - Comment: Automatically canceled at discontinue of medication order) OXcarbazepine (Trileptal) tablet 300 mg 300 mg, Oral, 2 times daily, First dose on Mon01/17/25 at 2014, Indications: Epilepsy 0526 (Given - Provider: Diane [...] Oral, Daily, First dose on Mon01/17/25 at 2014 0934 (Given - Provider: Liborio Mendoza RN) [...] RN) 0928 (Given - Provider: Jessica Hernandez, MEGHNA) 0813 (Given - Provider: Erika Gabriel RN) topiramate (Topamax) tablet 100 mg 100 mg, Oral, 2 times daily, First dose on Mon01/18/25 at 1145, Do not crush, chew, or split. 1402 (Given - Provider: Liborio Mendoza RN - Comment: pt sleeping)210 (Given - Provider: Diane Laguerre, RN) 0929 (Given - Provider: Jessica Hernandez RN)2140 (Given - Provider: Diane Laguerre, RN) 0814 (Given - Provider: Erika Gabriel [...] Status Dates Venkat HONEYCUTT Attending Provider Active Architecture Department Chair Relationship Specialty Start Date End Date Yoko Waters, DO [address] [place], [place] [id number] PCP - General 11/02/16 Team Status: Inactive Member Role Status Dates Venkat Malin Attending Provider Active Architecture Department Chair Relationship Specialty Start Date End Date Venkat Malin [address] [place] [address] PCP - General Internal Medicine 06/03/22 Architecture Department Chair Relationship Specialty Start Date End Date Venkat Malin [address] [place] [address] PCP - General Internal Medicine 06/03/22 Architecture Department Chair Relationship Specialty Start Date End Date Venkat Malin [address] [place] [address] PCP - General Internal Medicine 06/03/22 Architecture Department Chair Relationship Specialty Start Date End Date Venkat Malin [address] [place] [address] PCP - General Internal Medicine 06/03/22 Team Status: Active Member Role Status Dates Venkat Delaneymaura OHNEYCUTT Attending Provider Active Sta rt: June 24, 2024 Team Status: Inactive Member Role Status Dates Venkat Malin YINKA Attending Provider Active Sta rt: July 25, 2024 End: July 25, 2024 Venkat HONEYCUTT Referring Provider Active Sta rt: July 25, 2024 End: July 25, 2024 Team Status: Inactive Member Role Status Dates Venkat Delaneymaura HONEYCUTT Attending Provider Active Sta rt: September 03, 2024 End: September 03, 2024 Team Status: Inactive Member Role Status Dates Venkat OHNEYCUTT Attending Provider Active Sta rt: October 24, 2024 End: October 24, 2024 Venkat HONEYCUTT Referring Provider Active Sta rt: October 24, 2024 End: October 24, 2024 Team Status: Inactive Member Role Status Dates Venkat Howardredd HONEYCUTT Attending Provider Active Sta rt: December 11, 2024 End: December 11, 2024 Architecture Department Chair Relationship Specialty Start Date End Date Dea Venakt [address] [place] [phone] PCP - General Internal Medicine 06/03/22 Architecture Department Chair Relationship Specialty Start Date End Date Dea Venkat [address] [place] [phone] PCP - General Internal Medicine 06/03/22 Goals [...] BE BASED ON THE PRIMARY CLINICAL RECORDS. [facility] [employer] [facility]. provides no warranty or guarantee of the accuracy or completeness of information in this document.
[2025-06-09 07:40] LABS: Hematocrit 40.6 % (37-47); Hemoglobin 12.9 g/dL (12.0-15.0); Mean Corp Hgb Conc 31.8 g/dL (32-36); Mean Corpuscular Volume 88.5 fL (81-99); Mean Platelet Vol. 10.3 fl (6.2-12.0); Platelet Count 343 K/mm3 (150-450); RBC Distribution Width CV 15.0 % (11.6-14.6); RBC Distribution Width SD 48.5 fl (35.1-43.9); Red Blood Count 4.59 M/mm3 (4.2-5.4); White Blood Count 8.1 K/mm3 (4.4-11.0)
[2025-06-09 08:00] LABS: AST(SGOT) 19 U/L (<=31); Alanine Aminotransfer ALT/SGPT 11 U/L (<=34); Albumin, Serum 3.2 g/dL (3.5-5.0); Alkaline Phosphatase 123 U/L (35-104); Anion Gap 11 (5-15); BUN 20 mg/dL (4-19); BUN/Creat Ratio 29.4 RATIO (10-20); Calcium,Total 9.4 mg/dL (7.6-11.0); Carbon Dioxide 23.5 mmol/L (21.0-32.0); Chloride 106 mmol/L (98-108); Globulin 4.5 g/dL (2.2-4.2); Glucose 90 mg/dL (70-99); Potassium 4.0 mmol/L (3.3-5.1)
== END ==
LOC: OLS.SANC 05:00
PROVIDERS: Visit Provider Internal Medicine
DX: D64.9 Anemia, unspecified (principal); I10 Essential (primary) hypertension
CPT/HCPCS: 36415; 80053; 85027

== ENCOUNTER → 2025-07-30 05:00 | Outpatient (REF) | payer MEDICAID, SELFPAY ==
--- OUTSIDE RECORDS SUMMARY | 2025-07-30 04:37 | XMS RPT_ITS | CCD ---
Author Organization [facility] Care Team Providers Care 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 Name Role Phone ELVER QUINONES Unavailable Unavailable JONI, ELVER J Unavailable Unavailable Nickerson, Elver Unavailable Unavailable Esterle, Yoko Unavailable Unavailable Esterle, Yoko Unavailable Unavailable Aamir, Maurice Unavailable Unavailable Esterle DO, Yoko M Primary Care Provider Venkat Malin Primary Care Provider [phone] Venkat Malin Primary Care Provider Venkat Melo Attending Provider Unavailab le Katsaros OLS, Venkat Referring Provider Unavailab le Katsaros OLSVenkat Attending Provider Unavailab le Katsaros OLSVenkat Referring Provider Unavailab le [place] OLS, Venakt Attending Provider Unavailab le Katsaros OLS, Venkat Referring Provider Unavailab le KATSAROSVENKAT Primary Care Unavailable DAJA VOGEL Admitting Unavailable CHERYL RAMIREZ Consulting Unavailable FLORENCIO HENNING Attending Unavailable Katsaros OLS, Venkat Referring Unavailable Katsaros OLS, Venkat Attending Unavailable Katsaros YINKA, Venkat Attending Unavailable Katsaros Venkat HONEYCUTT Attending Unavailable Katsaros OLSVenkat Referring Unavailable Katsaros [...] [facility] Repository (10 sources) morphine; Translations: [MORPHINE] Drug Allergy [address] [facility] Repository (10 sources) pineapple flavor; Translations: [PINEAPPLE] Drug Allergy [address] [facility] Repository (1 source) avocado allergenic extract Drug Allergy 1 [facility] (9 sources) Alcohol Propensity to adverse reactions to drug 7 Unknown [facility] (8 sources) avocado oil Drug Allergy 1 [facility] (8 sources) Kiwi fruit Allergy to substance 3 [facility] NEGATED: Highlighted row has been ruled out! (1 source) Other Propensity to adverse reactions 1 [facility] Work Phone: Medications Current Medications Medication [...] mg/ml ophthalmic solution (3 sources) Plasma Volume Director Of Dietary, Non-Standardize d Chemical Allergen Artificial Tears ophthalmic solution Administer 1 drop into both eyes as needed (Instill 1 drop in both eyes every 4 hours as needed). Active dextromethorphan hydrobromide 20 mg / quiNIDine sulfate 10 mg oral capsule (1 source) Antiarrhythmic, Uncompetitive O-vgrssn-T-aspa rtate Receptor Antagonist, Cytochrome P450 2D6 Inhibitor, [...] pain (1-3). Active 20 ml albumin human, snf 250 mg/ml injection (4 sources) Human Serum [...] Mon07/07/23 at 2215 take 1 capsule by [facility] three times daily gabapentin (NEURONTIN) 300 [...] mouth. Active 0.5 ml heparin sodium, porcine 29956 unt/ml prefilled syringe (2 sources) Unfractionated Heparin, [...] crush, chew, or split. polyethylene glycol 3350 25115 mg powder for oral solution (15 sources) [...] hr capsule take 1 capsule by mo moh once daily tamsulosin (FLOMAX) 0.4 MG capsule [...] diabetes mellitus without complications] Onset: 03-12-2025 Chronic Essential hypertension (2 sources) Essential (primary) [...] left breast, lower inner quadrant] 05-09-2023 Episodic Open wounds of head; neck; and trunk (1 source) Scalp laceration; Translations: [Laceration without foreign body of scalp, initial encounter] Episodic Other aftercare (2 sources) Other jail (current) drug therapy; Translations: [Other jail (current) drug therapy] Onset: 07-05-2024 Episodic Other [...] Facility CBC-Complete Blood Cnt No Di ffon 06-09-2025 Erythrocyte distribution width (RBC) [Ratio] 15.0 % High 11.6-14.6 [facility] Comment on above: Order Comment: 302-1 Performed By: #### L 500.4050, L100.0500 #### [facility] [address] [place], [address] Hematocrit (Bld) [Volume fraction] 40.6 % Normal 37-47 [facility] Comment on above: Order Comment: 302-1 Performed By: #### L 500.4050, L100.0500 #### [facility] [address] [place], [address] Hemoglobin (Bld) [Mass/Vol] 12.9 g/dL Normal 12.0-15.0 [facility] Comment on above: Order Comment: 302-1 Performed By: #### L 500.4050, L100.0500 #### [facility] [address] [place], [address] MCH (RBC) [Entitic mass] 28.1 pg Normal 27.0-32.0 [facility] Comment on above: Order Comment: 302-1 Performed By: #### L 500.4050, L100.0500 #### [facility] [address] [place], [address] MCHC (RBC) [Mass/Vol] 31.8 g/dL Low 32-[address] [facility] Comment on above: Order Comment: 302-1 Performed By: #### L 500.4050, L100.0500 #### [facility] [address] [place], [address] MCV (RBC) [Entitic vol] 88.5 fL Normal 81-99 [facility] Comment on above: Order Comment: 302-1 Performed By: #### L 500.4050, L100.0500 #### [facility] [address] [place], [address] Platelet mean volume (Bld) [Entitic vol] 10.3 fL Normal 6.2-12.0 [facility] Comment on above: Order Comment: 302-1 Performed By: #### L 500.4050, L100.0500 #### [facility] [address] [place], [address] Platelets (Bld) [#/Vol] 343 10*3/uL Normal 150-450 [facility] Comment on above: Order Comment: 302-1 Performed By: #### L 500.4050, L100.0500 #### [facility] [address] [place], [address] RBC (Bld) [#/Vol] 4.59 10*6/uL Normal 4.2-5.4 [facility] Comment on above: Order Comment: 302-1 Performed By: #### L 500.4050, L100.0500 #### [facility] [address] [place], [address] RDW SD 48.5 fl High 35.1-43.9 [facility] Comment on above: Order Comment: 302-1 Performed By: #### L 500.4050, L100.0500 #### [facility] [address] [place], [address] WBC (Bld) [#/Vol] 8.1 10*3/uL Normal 4.4-11.0 [facility] Comment on above: Order Comment: 302-1 Performed By: #### L 500.4050, L100.0500 #### [facility] [address] [place], [address] Comprehensive Metabolic Prof ilon 06-09-2025 Albumin [Mass/Vol] 3.2 g/dL Low 3.5-5.0 [facility] Comment on above: Order Comment: 302-1 Performed By: #### L 500.4050, L100.0500 #### [facility] [address] [place], [address] Albumin/Globulin [Mass ratio] 0.7 {ratio} Low 0.9-2.4 [facility] Comment on above: Order Comment: 302-1 Performed By: #### L 500.4050, L100.0500 #### [facility] [address] [place], [address] ALK PHOS 123 U/L High 35-104 [facility] Comment on above: Order Comment: 302-1 Performed By: #### L 500.4050, L100.0500 #### [facility] [address] [place], [address] ALT [Catalytic activity/Vol] 11 U/L Normal <=34 [facility] Comment on above: Order Comment: 302-1 Performed By: #### L 500.4050, L100.0500 #### [facility] [address] [place], [address] AST [Catalytic activity/Vol] 19 U/L Normal <=31 [facility] Comment on above: Order Comment: 302-1 Performed By: #### L 500.4050, L100.0500 #### [facility] [address] [place], [address] Bilirubin [Mass/Vol] 0.27 mg/dL Normal 0.00-1.30 [facility] Comment on above: Order Comment: 302-1 Performed By: #### L 500.4050, L100.0500 #### [facility] [address] [place], [address] BUN/CRE 29.4 RATIO High 10-20 [facility] Comment on above: Order Comment: 302-1 Performed By: #### L 500.4050, L100.0500 #### [facility] [address] [place], [address] Calcium [Mass/Vol] 9.4 mg/dL Normal 7.6-11.0 [facility] Comment on above: Order Comment: 302-1 Performed By: #### L 500.4050, L100.0500 #### [facility] [address] [place], [address] Chloride [Moles/Vol] 106 mmol/L Normal 98-108 [facility] Comment on above: Order Comment: 302-1 Performed By: #### L 500.4050, L100.0500 #### [facility] [address] [place], [address] CO2 [Moles/Vol] 23.5 mmol/L Normal 21.0-32.0 [facility] Comment on above: Order Comment: 302-1 Performed By: #### L 500.4050, L100.0500 #### [facility] [address] [place], [address] Creatinine [Mass/Vol] 0.69 mg/dL Low 0.70-1.[address] [facility] Comment on above: Order Comment: 302-1 Performed By: #### L 500.4050, L100.0500 #### [facility] [address] [place], [address] GAP 11 Normal 5-15 [facility] Comment on above: Order Comment: 302-1 Performed By: #### L 500.4050, L100.0500 #### [facility] [address] [place], [address] GFR/1.73 sq M.predicted among non-blacks MDRD (S/P/Bld) [Vol rate/Area] 106 mL/min/{1.73_m2} Normal >60 [facility] Comment on above: Order Comment: 302-1 Result Comment: mL/m in/1.73m2 CKD-EPI Creatinine Equation (2020) Performed By: #### L 500.4050, L100.0500 #### [facility] [address] [place], [address] Globulin (S) [Mass/Vol] 4.5 g/dL High 2.2-4.2 [facility] Comment on above: Order Comment: 302-1 Performed By: #### L 500.4050, L100.0500 #### [facility] [address] [place], [address] Glucose [Mass/Vol] 90 mg/dL Normal 70-99 [facility] Comment on above: Order Comment: 302-1 Performed By: #### L 500.4050, L100.0500 #### [facility] [address] [place], [address] Potassium [Moles/Vol] 4.0 mmol/L Normal 3.3-5.[address] [facility] Comment on above: Order Comment: 302-1 Performed By: #### L 500.4050, L100.0500 #### [facility] [address] [place], [address] Sodium [Moles/Vol] 140 mmol/L Normal 133-145 [facility] Comment on above: Order Comment: 302-1 Performed By: #### L 500.4050, L100.0500 #### [facility] [address] [place], [address] T PROT 7.7 g/dL Normal 5.9-8.4 [facility] Comment on above: Order Comment: 302-1 Performed By: #### L 500.4050, L100.0500 #### [facility] [address] [place], [address] Urea nitrogen [Mass/Vol] 20 mg/dL High 4-19 [facility] Comment on above: Order Comment: 302-1 Performed By: #### L 500.4050, L100.0500 #### [facility] [address] [place], [address] L3410.9992on 04-14-2025 [facility]. COMMENT Normal . [facility] Comment on above: Order Comment: 302.1 475953 OXCARBAZEPINE Result Comment: Test Ordered: [id number] Oxcarbazepine (Trileptal),S Oxcarbazepine Metabolite 11 ug/mL Reference Range: 10-35 This test was developed and its performance characteristics determined by [facility]. It has not been cleared or approved by the Food and Drug Administration. Detection Limit = 1 Performed at: - [address] [id number] [employer] Developer: Martha Estrada MD, Phone: [phone] Performed at: [address] [id number] [employer] Developer: Hans Hagen PhD, Phone: [phone] Performed By: #### L 3410.9992 #### [facility] [address] [place], [address] Comprehensive Metabolic Prof [facility] 02-21-2025 Albumin [Mass/Vol] 3.4 g/dL Low 3.5-5.0 [facility] Comment on above: Order Comment: 302-1 Performed By: #### L 500.4050, L100.0500 #### [facility] [address] [place], [address] Albumin/Globulin [Mass ratio] 0.8 {ratio} Low 0.9-2.4 [facility] Comment on above: Order Comment: 302-1 Performed By: #### L 500.4050, L100.0500 #### [facility] [address] [place], [address] ALK PHOS 150 U/L High 35-104 [facility] Comment on above: Order Comment: 302-1 Performed By: #### L 500.4050, L100.0500 #### [facility] [address] [place], [address] ALT [Catalytic activity/Vol] 19 U/L Normal <=34 [facility] Comment on above: Order Comment: 302-1 Performed By: #### L 500.4050, L100.0500 #### [facility] [address] [place], [address] AST [Catalytic activity/Vol] 19 U/L Normal <=31 [facility] Comment on above: Order Comment: 302-1 Performed By: #### L 500.4050, L100.0500 #### [facility] [address] [place], [address] Bilirubin [Mass/Vol] 0.25 mg/dL Normal 0.00-1.30 [facility] Comment on above: Order Comment: 302-1 Performed By: #### L 500.4050, L100.0500 #### [facility] [address] [place], [address] BUN/CRE 25.3 RATIO High 10-20 [facility] Comment on above: Order Comment: 302-1 Performed By: #### L 500.4050, L100.0500 #### [facility] [address] [place], [address] Calcium [Mass/Vol] 9.3 mg/dL Normal 7.6-11.0 [facility] Comment on above: Order Comment: 302-1 Performed By: #### L 500.4050, L100.0500 #### [facility] [address] [place], [address] Chloride [Moles/Vol] 105 mmol/L Normal 98-108 [facility] Comment on above: Order Comment: 302-1 Performed By: #### L 500.4050, L100.0500 #### [facility] [address] [place], [address] CO2 [Moles/Vol] 23.0 mmol/L Normal 21.0-32.0 [facility] Comment on above: Order Comment: 302-1 Performed By: #### L 500.4050, L100.0500 #### [facility] [address] [place], [address] Creatinine [Mass/Vol] 0.75 mg/dL Normal 0.70-1.[address] [facility] Comment on above: Order Comment: 302-1 Performed By: #### L 500.4050, L100.0500 #### [facility] [address] [place], [address] GAP 12 Normal 5-15 [facility] Comment on above: Order Comment: 302-1 Performed By: #### L 500.4050, L100.0500 #### [facility] [address] [place], [address] GFR/1.73 sq M.predicted among non-blacks MDRD (S/P/Bld) [Vol rate/Area] 97 mL/min/{1.73_m2} Normal >60 [facility] Comment on above: Order Comment: 302-1 Result Comment: mL/m in/1.73m2 CKD-EPI Creatinine Equation (2020) Performed By: #### L 500.4050, L100.0500 #### [facility] [address] [place], [address] Globulin (S) [Mass/Vol] 4.5 g/dL High 2.2-4.2 [facility] Comment on above: Order Comment: 302-1 Performed By: #### L 500.4050, L100.0500 #### [facility] [address] [place], [address] Glucose [Mass/Vol] 86 mg/dL Normal 70-99 [facility] Comment on above: Order Comment: 302-1 Performed By: #### L 500.4050, L100.0500 #### [facility] [address] [place], [address] Potassium [Moles/Vol] 3.7 mmol/L Normal 3.3-5.[address] [facility] Comment on above: Order Comment: 302-1 Performed By: #### L 500.4050, L100.0500 #### [facility] [address] [place], [address] Sodium [Moles/Vol] 139 mmol/L Normal 133-145 [facility] Comment on above: Order Comment: 302-1 Performed By: #### L 500.4050, L100.0500 #### [facility] [address] [place], [address] T PROT 7.8 g/dL Normal 5.9-8.4 [facility] Comment on above: Order Comment: 302-1 Performed By: #### L 500.4050, L100.0500 #### [facility] [address] [place], [address] Urea nitrogen [Mass/Vol] 19 mg/dL Normal 4-19 [facility] Comment on above: Order Comment: 302-1 Performed By: #### L 500.4050, L100.0500 #### [facility] [address] [place], [address] CBC-Complete Blood Cnt No Di ffon 01-28-2025 Erythrocyte distribution width (RBC) [Ratio] 14.9 % High 11.6-14.6 [facility] Comment on above: Order Comment: 302.1 Performed By: #### L 100.0500, L500.4050 #### [facility] [address] [place], [address] Hematocrit (Bld) [Volume fraction] 38.1 % Normal 37-47 [facility] Comment on above: Order Comment: 302.1 Performed By: #### L 100.0500, L500.4050 #### [facility] [address] [place], [address] Hemoglobin (Bld) [Mass/Vol] 11.7 g/dL Low 12.0-15.0 [facility] Comment on above: Order Comment: 302.1 Performed By: #### L 100.0500, L500.4050 #### [facility] [address] [place], [address] MCH (RBC) [Entitic mass] 27.6 pg Normal 27.0-32.0 [facility] Comment on above: Order Comment: 302.1 Performed By: #### L 100.0500, L500.4050 #### [facility] [address] [place], [address] MCHC (RBC) [Mass/Vol] 30.7 g/dL Low 32-[address] [facility] Comment on above: Order Comment: 302.1 Performed By: #### L 100.0500, L500.4050 #### [facility] [address] [place], [address] MCV (RBC) [Entitic vol] 89.9 fL Normal 81-99 [facility] Comment on above: Order Comment: 302.1 Performed By: #### L 100.0500, L500.4050 #### [facility] [address] [place], [address] Platelet mean volume (Bld) [Entitic vol] 11.1 fL Normal 6.2-12.0 [facility] Comment on above: Order Comment: 302.1 Performed By: #### L 100.0500, L500.4050 #### [facility] [address] [place], [address] Platelets (Bld) [#/Vol] 309 10*3/uL Normal 150-450 [facility] Comment on above: Order Comment: 302.1 Performed By: #### L 100.0500, L500.4050 #### [facility] [address] [place], [address] RBC (Bld) [#/Vol] 4.24 10*6/uL Normal 4.2-5.4 [facility] Comment on above: Order Comment: 302.1 Performed By: #### L 100.0500, L500.4050 #### [facility] [address] [place], [address] RDW SD 49.3 fl High 35.1-43.9 [facility] Comment on above: Order Comment: 302.1 Performed By: #### L 100.0500, L500.4050 #### [facility] [address] [place], [address] WBC (Bld) [#/Vol] 6.8 10*3/uL Normal 4.4-11.0 [facility] Comment on above: Order Comment: 302.1 Performed By: #### L 100.0500, L500.4050 #### [facility] [address] [place], [address] Comprehensive Metabolic Prof [facility] 01-28-2025 Albumin [Mass/Vol] 3.2 g/dL Low 3.5-5.0 [facility] Comment on above: Order Comment: 302-1 Performed By: #### L 500.4050, L100.0500 #### [facility] [address] [place], [address] Albumin/Globulin [Mass ratio] 0.8 {ratio} Low 0.9-2.4 [facility] Comment on above: Order Comment: 302-1 Performed By: #### L 500.4050, L100.0500 #### [facility] [address] [place], [address] ALK PHOS 123 U/L High 35-104 [facility] Comment on above: Order Comment: 302-1 Performed By: #### L 500.4050, L100.0500 #### [facility] [address] [place], [address] ALT [Catalytic activity/Vol] 17 U/L Normal <=34 [facility] Comment on above: Order Comment: 302-1 Performed By: #### L 500.4050, L100.0500 #### [facility] [address] [place], [address] AST [Catalytic activity/Vol] 18 U/L Normal <=31 [facility] Comment on above: Order Comment: 302-1 Performed By: #### L 500.4050, L100.0500 #### [facility] [address] [place], [address] Bilirubin [Mass/Vol] 0.18 mg/dL Normal 0.00-1.30 [facility] Comment on above: Order Comment: 302-1 Performed By: #### L 500.4050, L100.0500 #### [facility] [address] [place], [address] BUN/CRE 27.3 RATIO High 10-20 [facility] Comment on above: Order Comment: 302-1 Performed By: #### L 500.4050, L100.0500 #### [facility] [address] [place], [address] Calcium [Mass/Vol] 9.2 mg/dL Normal 7.6-11.0 [facility] Comment on above: Order Comment: 302-1 Performed By: #### L 500.4050, L100.0500 #### [facility] [address] [place], [address] Chloride [Moles/Vol] 106 mmol/L Normal 98-108 [facility] Comment on above: Order Comment: 302-1 Performed By: #### L 500.4050, L100.0500 #### [facility] [address] [place], [address] CO2 [Moles/Vol] 23.7 mmol/L Normal 21.0-32.0 [facility] Comment on above: Order Comment: 302-1 Performed By: #### L 500.4050, L100.0500 #### [facility] [address] [place], [address] Creatinine [Mass/Vol] 0.79 mg/dL Normal 0.70-1.[address] [facility] Comment on above: Order Comment: 302-1 Performed By: #### L 500.4050, L100.0500 #### [facility] [address] [place], [address] GAP 11 Normal 5-15 [facility] Comment on above: Order Comment: 302-1 Performed By: #### L 500.4050, L100.0500 #### [facility] [address] [place], [address] GFR/1.73 sq M.predicted among non-blacks MDRD (S/P/Bld) [Vol rate/Area] 92 mL/min/{1.73_m2} Normal >60 [facility] Comment on above: Order Comment: 302-1 Result Comment: mL/m in/1.73m2 CKD-EPI Creatinine Equation (2020) Performed By: #### L 500.4050, L100.0500 #### [facility] [address] [place], [address] Globulin (S) [Mass/Vol] 3.8 g/dL Normal 2.2-4.2 [facility] Comment on above: Order Comment: 302-1 Performed By: #### L 500.4050, L100.0500 #### [facility] [address] [place], [address] Glucose [Mass/Vol] 91 mg/dL Normal 70-99 [facility] Comment on above: Order Comment: 302-1 Performed By: #### L 500.4050, L100.0500 #### [facility] [address] [place], [address] Potassium [Moles/Vol] 3.6 mmol/L Normal 3.3-5.[address] [facility] Comment on above: Order Comment: 302-1 Performed By: #### L 500.4050, L100.0500 #### [facility] [address] [place], [address] Sodium [Moles/Vol] 141 mmol/L Normal 133-145 [facility] Comment on above: Order Comment: 302-1 Performed By: #### L 500.4050, L100.0500 #### [facility] [address] [place], [address] T PROT 7.0 g/dL Normal 5.9-8.4 [facility] Comment on above: Order Comment: 302-1 Performed By: #### L 500.4050, L100.0500 #### [facility] [address] [place], [address] Urea nitrogen [Mass/Vol] 22 mg/dL High 4-19 [facility] Comment on above: Order Comment: 302-1 Performed By: #### L 500.4050, L100.0500 #### [facility] [address] [place], [address] 30on 01-20-2025 30 Problem: Knowledge D eficit Goal: Patient/family/caregiver demonstrates understanding of disease process, treatment plan, medications, and discharge instructions Outcome: Progressing Problem: Potential for Compromised Skin Integrity Goal: Skin Integrity is Maintained or Improved Outcome: Progressing Normal [facility] [id number] 01-20-2025 [id number] Confirmed pickup tariq e of 5:00pm by transport company [employer] at phone number [phone]. Location of facility drop off is [facility]. Facility notified via [employer], TCC notified on secure chat. [facility] [phone] MAR, Med Rec and Upd ated Clinicals sent to [facility] via [employer] per TCC request. [facility] [phone] Pt is stable for DC. Attending to place DC orders and MAR. RN to complete ERNESTO. HIDE INSPECTOR tasked to arrange transport for 5:00 today and to sen DC Summary and MAR. SNF updated. Legal Guardian Eric, called and messaged left @DC. [facility] 36on 01-20-2025 36 S: Denise from [facility] spoke with [facility] nurse regarding patient update B: Onset of symptoms/concern today A: Denise calling to updated Dr Malin patient was discharged from [facility] today and admitted to [place]. R: Message to provider. Reason for Disposition General information question, no triage required and triager able to answer question Protocols used: Information Only Call - No [id number] BASIC METABOLIC PANELon 12-30 Anion gap [Moles/Vol] 7 mmol/L Normal 3-13 [facility] Comment on above: Performed By: #### L [id number] ####Cardiopulmonary Physical Therapist: ERIKA ANGELO ([phone])[address] Calcium [Mass/Vol] 9.2 mg/dL Normal 8.4-10.2 [facility] Comment on above: Performed By: #### L AB15 ####Cardiopulmonary Physical Therapist: ERIKA ANGELO ([id number])[facility] ([facility])[address] [place] [address] Chloride [Moles/Vol] 106 mmol/L Normal 98-107 [facility] Comment on above: Performed By: #### L AB15 ####Cardiopulmonary Physical Therapist: ERIKA ANGELO ([id number])[facility] [place] [address] CO2 [Moles/Vol] 23 mmol/L Normal 22-29 [facility] Comment on above: Performed By: #### L [id number] ####Cardiopulmonary Physical Therapist: ERIKA ANGELO ([phone])[facility] ([facility])[address] [place] [address] Creatinine [Mass/Vol] 0.73 mg/dL Normal 0.57-1.11 [facility] Comment on above: Performed By: #### L AB15 ####Cardiopulmonary Physical Therapist: ERIKA ANGELO ([phone])[facility])[address] [place] [address] GLOMERULAR FILTRATION RATE ML/MIN/1.73 SQ M.PREDICTED >90.0 Normal >60.0 [facility] Comment on above: Result Comment: Calc ulation based on the Chronic Kidney Disease Epidemiology Collaboration (CKD-EPI) equation refit without adjustment for race Performed By: #### L [id number] ####Cardiopulmonary Physical Therapist: ERIKA ANGELO ([id number])[facility] ([facility])[address] [place] [address] Glucose [Mass/Vol] 98 mg/dL Normal 74-100 [facility] Comment on above: Performed By: #### L [id number] ####Cardiopulmonary Physical Therapist: ERIKA ANGELO ([phone])[facility] ([facility])[address] [place] [address] Potassium [Moles/Vol] 3.9 mmol/L Normal 3.5-5.1 [facility] Comment on above: Result Comment: [facility] potassium values may be up to 0.5 mmol/L lower than serum values. Performed By: #### L AB15 ####Cardiopulmonary Physical Therapist: ERIKA ANGELO ([id number])[facility] ([facility])[address] [place] [address] Sodium [Moles/Vol] 136 mmol/L Normal 136-145 [facility] Comment on above: Performed By: #### L AB15 ####Cardiopulmonary Physical Therapist: ERIKA ANGELO ([id number])[facility] ([facility])[address] [place] [address] Urea nitrogen [Mass/Vol] 22 mg/dL High 8-21 [facility] Comment on above: Performed By: #### L [id number] ####Cardiopulmonary Physical Therapist: ERIKA ANGELO ([id number])[facility] ([facility])[address] [place] [address] Basic metabolic 1998 panelon 01-20-2025 Anion gap [Moles/Vol] 7 mmol/L 3 - 13 mmol/L [facility] Calcium [Mass/Vol] 9.2 mg/dL 8.4 - 10. 2 mg/dL [facility] Chloride [Moles/Vol] 106 mmol/L 98 - 10 7 mmol/L [facility] CO2 [Moles/Vol] 23 mmol/L 22 - 29 mmol/L [facility] Creatinine [Mass/Vol] 0.73 mg/dL 0.57 - 1.11 mg/dL [facility] GFR/1.73 sq M.predicted (S/P/Bld) [Vol rate/Area] - PINF [facility] Comment on above: Calculation based on the Chronic Kidney Disease Epidemiology Collaboration (CKD-EPI) equation refit without adjustment for race Glucose [Mass/Vol] 98 mg/dL 74 - 100 mg/dL [facility] Interpretation and review of laboratory results Abnormal [facility] Potassium [Moles/Vol] 3.9 mmol/L 3.5 - 5.1 mmol/L [facility] Comment on above: Plasma potassium stacey ues may be up to 0.5 mmol/L lower than serum values. Sodium [Moles/Vol] 136 mmol/L 136 - 145 mmol/L [facility] Urea nitrogen [Mass/Vol] 22 mg/dL High 8 - 21 mg/dL [facility] Nursing Noteon 01-20-2025 Nursing Note Pt taken to SNF with transportation Normal [facility] Nursing Note Report called to cleopatra fabian RN questions answered aware 1700 supervisor opening and picking. Pt IV dcd tip intact. Awaiting transport. Normal [facility] 30on 01-19-2025 30 Problem: Knowledge D [...] Goal: Assess Nutritional Intake Outcome: Progressing Normal [facility] Bacteria identified Cx Nom ( Bld)on 01-19-2025 Interpretation and review of laboratory results Normal [facility] Blood Collection Sit e: Left Arm [facility] Interpretation and review of laboratory results Normal [facility] Blood Collection Sit e: Right Femoral Line [facility] Laboratory - Microbiology an d Antimicrobial susceptibilityon 01-19-2025 Bacteria identified Cx Nom (Bld) No growth at 5 days [facility] Bacteria identified Cx Nom (Bld) No growth at 5 days [facility] 30on 01-18-2025 30 Problem: Potential f or [...] incontinence device to maintain their dignity Normal [facility] BASIC METABOLIC PANELon 12-30 Anion gap [Moles/Vol] 8 mmol/L Normal 3-13 [facility] Comment on above: Performed By: #### L [id number] ####Cardiopulmonary Physical Therapist: ERIKA ANGELO ([id number])[facility] ([facility] Calcium [Mass/Vol] 9.0 mg/dL Normal 8.4-10.2 [facility] Comment on above: Performed By: #### L [id number] ####Cardiopulmonary Physical Therapist: ERIKA ANGELO ([id number])[facility] ([facility])[address] [place] [address] Chloride [Moles/Vol] 112 mmol/L High 98-107 [facility] Comment on above: Performed By: #### L [id number] ####Cardiopulmonary Physical Therapist: ERIKA ANGELO ([id number])[facility] ([facility])[address] [place] [address] CO2 [Moles/Vol] 23 mmol/L Normal 22-29 [facility] Comment on above: Performed By: #### L [id number] ####Cardiopulmonary Physical Therapist: ERIKA ANGELO ([id number])[facility] ([facility])[address] [place] [address] Creatinine [Mass/Vol] 0.70 mg/dL Normal 0.57-1.11 [facility] Comment on above: Performed By: #### L AB15 ####Cardiopulmonary Physical Therapist: ERIKA ANGELO ([id number])[facility] ([facility])[address] [place] [address] GLOMERULAR FILTRATION RATE ML/MIN/1.73 SQ M.PREDICTED >90.0 Normal >60.0 [facility] Comment on above: Result Comment: Calc ulation based on the Chronic Kidney Disease Epidemiology Collaboration (CKD-EPI) equation refit without adjustment for race Performed By: #### L [id number] ####Cardiopulmonary Physical Therapist: ERIKA ANGELO ([id number])[facility] ([facility])[address] [place] [address] [place] Glucose [Mass/Vol] 95 mg/dL Normal 74-100 [facility] Comment on above: Performed By: #### L AB15 ####Cardiopulmonary Physical Therapist: ERIKA ANGELO ([id number])[facility] ([facility])[address] [place] [address] [place] Potassium [Moles/Vol] 4.8 mmol/L Normal 3.5-5.1 [facility] Comment on above: Result Comment: [facility] potassium values may be up to 0.5 mmol/L lower than serum values. Performed By: #### L AB15 ####Cardiopulmonary Physical Therapist: ERIKA ANGELO ([id number])[facility] [place] [address] Sodium [Moles/Vol] 143 mmol/L Normal 136-145 [facility] Comment on above: Performed By: #### L [id number] ####Cardiopulmonary Physical Therapist: ERIKA ANGELO ([id number])[facility] ([facility])[address] [place] [address] Urea nitrogen [Mass/Vol] 16 mg/dL Normal 8-21 [facility] Comment on above: Performed By: #### L [id number] ####Cardiopulmonary Physical Therapist: ERIKA ANGELO ([id number])[facility] ([facility])[address] [place] [address] Basic metabolic 1998 panelOr dered By: Libby Gregory on 01-18-2025 Anion gap [Moles/Vol] 8 mmol/L 3 - 13 mmol/L [facility] Calcium [Mass/Vol] 9 mg/dL 8.4 - 10. 2 mg/dL [facility] Chloride [Moles/Vol] 112 mmol/L High 98 - 10 7 mmol/L [facility] CO2 [Moles/Vol] 23 mmol/L 22 - 29 mmol/L [facility] Creatinine [Mass/Vol] 0.7 mg/dL 0.57 - 1.11 mg/dL [facility] GFR/1.73 sq M.predicted (S/P/Bld) [Vol rate/Area] - PINF [facility] Comment on above: Calculation based on the Chronic Kidney Disease Epidemiology Collaboration (CKD-EPI) equation refit without adjustment for race Glucose [Mass/Vol] 95 mg/dL 74 - 100 mg/dL [facility] Interpretation and review of laboratory results Abnormal [facility] Potassium [Moles/Vol] 4.8 mmol/L 3.5 - 5.1 mmol/L [facility] Comment on above: Plasma potassium stacey ues may be up to 0.5 mmol/L lower than serum values. Sodium [Moles/Vol] 143 mmol/L 136 - 145 mmol/L [facility] Urea nitrogen [Mass/Vol] 16 mg/dL 8 - 21 mg/dL [facility] CBC (HEMOGRAM)on 01-18-2025 Erythrocyte distribution width (RBC) [Ratio] 14.8 % Normal 11.5-15.0 [facility] Comment on above: Performed By: #### L [id number] ####Cardiopulmonary Physical Therapist: ERIKA ANGELO ([id number])[address] Hematocrit (Bld) [Volume fraction] 37.2 % Normal 35.0-47.0 [facility] Comment on above: Performed By: #### L [id number] ####Cardiopulmonary Physical Therapist: REIKA ANGELO ([id number])[address] Hemoglobin (Bld) [Mass/Vol] 11.5 g/dL Low 11.7-16.0 [facility] Comment on above: Performed By: #### L [id number] ####Cardiopulmonary Physical Therapist: ERIKA ANGELO ([id number])[address] MCH (RBC) [Entitic mass] 27.3 pg Normal 26.0-34.0 [facility] Comment on above: Performed By: #### L [id number] ####Cardiopulmonary Physical Therapist: ERIKA ANGELO ([id number])[address] MCHC 30.9 % Normal 30.5-36.0 [facility] Comment on above: Performed By: #### L [id number] ####Cardiopulmonary Physical Therapist: ERIKA ANGELO ([id number])[address] MCV (RBC) [Entitic vol] 88.4 fL Normal 77.0-99.0 [facility] Comment on above: Performed By: #### L [id number] ####Cardiopulmonary Physical Therapist: ERIKA ANGELO ([id number])[facility] ([facility])[address] [place] [address] Platelet mean volume (Bld) [Entitic vol] 10.3 fL Normal 9.0-12.7 [facility] Comment on above: Performed By: #### L [id number] ####Cardiopulmonary Physical Therapist: ERIKA ANGELO ([phone])[facility])[address] [place] [address] Platelets (Bld) [#/Vol] 299 10*3/uL Normal 140-440 [facility] Comment on above: Performed By: #### L [id number] ####Cardiopulmonary Physical Therapist: ERIKA ANGELO ([id number])[facility])[address] [place] [address] RBC (Bld) [#/Vol] 4.21 10*6/uL Normal 3.80-5.20 [facility] Comment on above: Performed By: #### L [id number] ####Cardiopulmonary Physical Therapist: ERIKA ANGELO ([id number])[facility] ([facility])[address] [place] [address] WBC (Bld) [#/Vol] 7.1 10*3/uL Normal 3.6-10.7 [facility] Comment on above: Performed By: #### L [id number] ####Cardiopulmonary Physical Therapist: ERIKA ANGELO ([id number])[facility])[address] [place] [address] CBC panel Auto (Bld)on 01-18 Erythrocyte distribution width (RBC) [Ratio] 14.8 % 11.5 - 15.0 % [facility] Hematocrit (Bld) [Volume fraction] 37.2 % 35.0 - 47.0 % [facility] Hemoglobin (Bld) [Mass/Vol] 11.5 g/dL Low 11.7 - 16.0 g/dL [facility] Interpretation and review of laboratory results Abnormal [facility] MCH (RBC) [Entitic mass] 27.3 pg 26.0 - 34.0 pg [facility] MCHC (RBC) [Mass/Vol] 30.9 % 30.5 - 36.0 % [facility] MCV (RBC) [Entitic vol] 88.4 fL 77.0 - 99.0 fL [facility] Platelet mean volume (Bld) [Entitic vol] 10.3 fL 9.0 - 12.7 fL [facility] Platelets (Bld) [#/Vol] 299 10*3/uL 140 - 440 10*3/uL [facility] RBC (Bld) [#/Vol] 4.21 10*6/uL 3.80 - 5.20 10*6/uL [facility] WBC (Bld) [#/Vol] 7.1 10*3/uL 3.6 - 10.7 10*3/uL [facility] 30on 01-17-2025 Problem: Knowledge D eficit Goal: [...] admission and per policy Avoid shearing Normal [facility] 30 Problem: Knowledge D eficit Goal: Patient/family/caregiver demonstrates understanding of disease process, treatment plan, medications, and discharge instructions Outcome: Progressing Problem: Potential for Compromised Skin Integrity Goal: Skin Integrity is Maintained or Improved Outcome: Progressing Goal: Nutritional status is improving Outcome: Progressing Problem: Urinary Incontinence Goal: Perineal skin integrity is maintained or improved Outcome: Progressing Normal [facility] 30 Problem: Knowledge D eficit Goal: Patient/family/caregiver demonstrates understanding of disease process, treatment plan, medications, and discharge instructions Outcome: Progressing Problem: Potential for Compromised Skin Integrity Goal: Skin Integrity is Maintained or Improved Outcome: Progressing Goal: Nutritional status is improving Outcome: Progressing Problem: Urinary Incontinence Goal: Perineal skin integrity is maintained or improved Outcome: Progressing Normal [facility] CBC W Auto Differential pane l (Bld)on 01-17-2025 Basophils (Bld) [#/Vol] 0 10*3/uL 0.0 - 0.2 10*3/uL [facility] Basophils/100 WBC (Bld) 0.5 % 0.0 - 2.0 % [facility] Eosinophils (Bld) [#/Vol] 0.1 10*3/uL 0.0 - 0.5 10*3/uL [facility] Eosinophils/100 WBC (Bld) 1.3 % 0.0 - 6.0 % [facility] Erythrocyte distribution width (RBC) [Ratio] 14.6 % 11.5 - 15.0 % [facility] Hematocrit (Bld) [Volume fraction] 40.1 % 35.0 - 47.0 % [facility] Hemoglobin (Bld) [Mass/Vol] 12.4 g/dL 11.7 - 16.0 g/dL [facility] Immature granulocytes (Bld) [#/Vol] 0 10*3/uL NINF - 0.1 10*3/uL [facility] Immature granulocytes/100 WBC (Bld) 0 % 0.0 - 2.0 % [facility] Interpretation and review of laboratory results Normal [facility] Lymphocytes (Bld) [#/Vol] 2.1 10*3/uL 1.0 - 4.3 10*3/uL [facility] Lymphocytes/100 WBC (Bld) 34.8 % 15.0 - 45.0 % [facility] MCH (RBC) [Entitic mass] 27.3 pg 26.0 - 34.0 pg [facility] MCHC (RBC) [Mass/Vol] 30.9 % 30.5 - 36.0 % [facility] MCV (RBC) [Entitic vol] 88.1 fL 77.0 - 99.0 fL [facility] Monocytes (Bld) [#/Vol] 0.4 10*3/uL 0.0 - 0.9 10*3/uL [facility] Monocytes/100 WBC (Bld) 6.9 % 5.0 - 13.0 % [facility] Neutrophils (Bld) [#/Vol] 3.4 10*3/uL 1.8 - 7.5 10*3/uL [facility] Neutrophils/100 WBC (Bld) 56.5 % 38.0 - 82.0 % [facility] Nucleated RBC/100 WBC (Bld) [Ratio] 0 % [facility] Platelet mean volume (Bld) [Entitic vol] 10.4 fL 9.0 - 12.7 fL [facility] Platelets (Bld) [#/Vol] 352 10*3/uL 140 - 440 10*3/uL [facility] RBC (Bld) [#/Vol] 4.55 10*6/uL 3.80 - 5.20 10*6/uL [facility] WBC (Bld) [#/Vol] 6 10*3/uL 3.6 - 10.7 10*3/uL [facility] CBC WITH AUTO DIFFERENTIALon 01-17-2025 Basophils (Bld) [#/Vol] 0.0 10*3/uL Normal 0.0-0.2 [facility] Comment on above: Performed By: #### L [id number] ####Cardiopulmonary Physical Therapist: ERIKA ANGELO ([id number])[facility])[address] [place] [address] Basophils/100 WBC (Bld) 0.5 % Normal 0.0-2.0 [facility] Comment on above: Performed By: #### L [id number] ####Cardiopulmonary Physical Therapist: ERIKA ANGELO ([id number])[facility])[address] [place] [address] Eosinophils (Bld) [#/Vol] 0.1 10*3/uL Normal 0.0-0.5 [facility] Comment on above: Performed By: #### L [id number] ####Cardiopulmonary Physical Therapist: ERIKA ANGELO ([id number])[facility])[address] [place] [address] Eosinophils/100 WBC (Bld) 1.3 % Normal 0.0-6.0 [facility] Comment on above: Performed By: #### L [id number] ####Cardiopulmonary Physical Therapist: ERIKA ANGELO ([id number])[facility])[address] [place] [address] Erythrocyte distribution width (RBC) [Ratio] 14.6 % Normal 11.5-15.0 [facility] Comment on above: Performed By: #### L [id number] ####Cardiopulmonary Physical Therapist: ERIKA ANGELO ([id number])[facility])[address] [place] [address] Hematocrit (Bld) [Volume fraction] 40.1 % Normal 35.0-47.0 [facility] Comment on above: Performed By: #### L [id number] ####Cardiopulmonary Physical Therapist: ERIKA ANGELO ([id number])[facility])[address] [place] [address] Hemoglobin (Bld) [Mass/Vol] 12.4 g/dL Normal 11.7-16.0 [facility] Comment on above: Performed By: #### L [id number] ####Cardiopulmonary Physical Therapist: ERIKA ANGELO ([id number])[facility])[address] [place] [address] IMMATURE GRANS % 0.0 % Normal 0.0-2.0 [facility] Comment on above: Performed By: #### L [id number] ####Cardiopulmonary Physical Therapist: ERIKA ANGELO ([id number])[facility])[address] [place] [address] IMMATURE GRANS ABSOLUTE 0.0 10*3/uL Normal <0.1 [facility] Comment on above: Performed By: #### L [id number] ####Cardiopulmonary Physical Therapist: ERIKA ANGELO ([id number])[facility])[address] [place] [address] Lymphocytes (Bld) [#/Vol] 2.1 10*3/uL Normal 1.0-4.3 [facility] Comment on above: Performed By: #### L [id number] ####Cardiopulmonary Physical Therapist: ERIKA ANGELO ([id number])[facility])[address] [place] [address] Lymphocytes/100 WBC (Bld) 34.8 % Normal 15.0-45.0 [facility] Comment on above: Performed By: #### L [id number] ####Cardiopulmonary Physical Therapist: ERIKA ANGELO ([id number])[facility])[address] [place] [address] MCH (RBC) [Entitic mass] 27.3 pg Normal 26.0-34.0 [facility] Comment on above: Performed By: #### L [id number] ####Cardiopulmonary Physical Therapist: ERIKA ANGELO ([id number])[facility])[address] [place] [address] MCHC 30.9 % Normal 30.5-36.0 [facility] Comment on above: Performed By: #### L [id number] ####Cardiopulmonary Physical Therapist: ERIKA ANGELO ([phone])[facility])[address] [place] [address] MCV (RBC) [Entitic vol] 88.1 fL Normal 77.0-99.0 [facility] Comment on above: Performed By: #### L [id number] ####Cardiopulmonary Physical Therapist: ERIKA ANGELO ([id number])[facility])[address] [place] [address] Monocytes (Bld) [#/Vol] 0.4 10*3/uL Normal 0.0-0.9 [facility] Comment on above: Performed By: #### L [id number] ####Cardiopulmonary Physical Therapist: ERIKA ANGELO ([id number])[facility])[address] [place] [address] Monocytes/100 WBC (Bld) 6.9 % Normal 5.0-13.0 [facility] Comment on above: Performed By: #### L [id number] ####Cardiopulmonary Physical Therapist: ERIKA ANGELO ([id number])[facility])[address] [place] [address] NEUTROPHILS ABSOLUTE 3.4 10*3/uL Normal 1.8-7.5 [facility] Comment on above: Performed By: #### L [id number] ####Cardiopulmonary Physical Therapist: ERIKA ANGELO ([id number])[facility])[address] [place] [address] Neutrophils/100 WBC (Bld) 56.5 % Normal 38.0-82.0 [facility] Comment on above: Performed By: #### L [id number] ####Cardiopulmonary Physical Therapist: ERIKA [id number])[facility] ([facility])[address] [place] [address] NRBC 0.0 /100 WBCs Normal 0.0-2.0 [facility] Comment on above: Performed By: #### L [id number] ####Cardiopulmonary Physical Therapist: ERIKA ANGELO ([phone])[facility] ([facility])[address] [place] [address] Platelet mean volume (Bld) [Entitic vol] 10.4 fL Normal 9.0-12.7 [facility] Comment on above: Performed By: #### L [id number] ####Cardiopulmonary Physical Therapist: ERIKA ANGELO ([phone])[facility] ([facility])[address] [place] [address] Platelets (Bld) [#/Vol] 352 10*3/uL Normal 140-440 [facility] Comment on above: Performed By: #### L [id number] ####Cardiopulmonary Physical Therapist: ERIKA ANGELO ([phone])[facility] ([facility])[address] [place] [address] RBC (Bld) [#/Vol] 4.55 10*6/uL Normal 3.80-5.20 [facility] Comment on above: Performed By: #### L [id number] ####Cardiopulmonary Physical Therapist: ERIKA ANGELO ([phone])[facility])[address] [place] [address] WBC (Bld) [#/Vol] 6.0 10*3/uL Normal 3.6-10.7 [facility] Comment on above: Performed By: #### L [id number] ####Cardiopulmonary Physical Therapist: ERIKA ANGELO ([phone])[facility])[address] [place] [address] COMPREHENSIVE METABOLIC PANE Patricio 01-17-2025 Albumin [Mass/Vol] 2.8 g/dL Low 3.5-5.0 [facility] Comment on above: Performed By: #### L AB17, [id number] ####Cardiopulmonary Physical Therapist: ERIKA ANGELO ([phone])[facility])[address] [place] [address] ALP [Catalytic activity/Vol] 125 U/L Normal 40-150 [facility] Comment on above: Performed By: #### L AB17, [id number] ####Cardiopulmonary Physical Therapist: ERIKA ANGELO ([phone])[facility] ([facility])[address] [place] [address] ALT [Catalytic activity/Vol] 16 U/L Normal <30 [facility] Comment on above: Performed By: #### L AB17, [id number] ####Cardiopulmonary Physical Therapist: ERIKA ANGELO ([phone])[facility] ([facility])[address] [place] [address] Anion gap [Moles/Vol] 7 mmol/L Normal 3-13 [facility] Comment on above: Performed By: #### L AB17, [id number] ####Cardiopulmonary Physical Therapist: ERIKA ANGELO ([phone])[facility] ([facility])[address] [place] [address] AST [Catalytic activity/Vol] 21 U/L Normal <34 [facility] Comment on above: Performed By: #### L AB17, [id number] ####Cardiopulmonary Physical Therapist: ERIKA ANGELO ([phone])[facility] ([facility])[address] [place] [address] Bilirubin [Mass/Vol] 0.2 mg/dL Normal <1.2 [facility] Comment on above: Performed By: #### L AB17, [id number] ####Cardiopulmonary Physical Therapist: ERIKA ANGELO ([phone])[facility] ([facility])[address] [place] [address] Calcium [Mass/Vol] 9.0 mg/dL Normal 8.4-10.2 [facility] Comment on above: Performed By: #### L AB17, [id number] ####Cardiopulmonary Physical Therapist: ERIKA ANGELO ([phone])[facility] ([facility])[address] [place] [address] [place] Chloride [Moles/Vol] 111 mmol/L High 98-107 [facility] Comment on above: Performed By: #### L AB17, [id number] ####Cardiopulmonary Physical Therapist: ERIKA ANGELO ([phone])[facility])[address] [place] [address] CO2 [Moles/Vol] 23 mmol/L Normal 22-29 [facility] Comment on above: Performed By: #### L AB17, [id number] ####Cardiopulmonary Physical Therapist: ERIKA ANGELO ([phone])[facility])[address] [place] [address] Creatinine [Mass/Vol] 0.67 mg/dL Normal 0.57-1.11 [facility] Comment on above: Performed By: #### L AB17, [id number] ####Cardiopulmonary Physical Therapist: ERIKA ANGELO ([phone])[facility])[address] [place] [address] GLOMERULAR FILTRATION RATE ML/MIN/1.73 SQ M.PREDICTED >90.0 Normal >60.0 [facility] Comment on above: Result Comment: Calc ulation based on the Chronic Kidney Disease Epidemiology Collaboration (CKD-EPI) equation refit without adjustment for race Performed By: #### L AB17, [id number] ####Cardiopulmonary Physical Therapist: ERIKA ANGELO ([phone])[facility])[address] [place] [address] Glucose [Mass/Vol] 98 mg/dL Normal 74-100 [facility] Comment on above: Performed By: #### L AB17, [id number] ####Cardiopulmonary Physical Therapist: ERIKA ANGELO ([phone])[facility])[address] [place] [address] Potassium [Moles/Vol] 3.4 mmol/L Low 3.5-5.1 [facility] Comment on above: Result Comment: [facility] potassium values may be up to 0.5 mmol/L lower than serum values. Performed By: #### L AB17, [id number] ####Cardiopulmonary Physical Therapist: ERIKA ANGELO ([id number])[facility])[address] [place] [address] Protein [Mass/Vol] 7.6 g/dL Normal 6.4-8.3 [facility] Comment on above: Performed By: #### L AB17, [id number] ####Cardiopulmonary Physical Therapist: ERIKA ANGELO ([phone])[facility])[address] [place] [address] Sodium [Moles/Vol] 141 mmol/L Normal 136-145 [facility] Comment on above: Performed By: #### L AB17, [id number] ####Cardiopulmonary Physical Therapist: ERIKA ANGELO ([phone])[facility] ([facility])[address] [place] [address] Urea nitrogen [Mass/Vol] 13 mg/dL Normal 8-21 [facility] Comment on above: Performed By: #### Hemal AB17, [id number] ####Cardiopulmonary Physical Therapist: ERIKA ANGELO ([phone])[facility])[address] [place] [address] Comprehensive metabolic 1998 panelon 01-17-2025 Albumin [Mass/Vol] 2.8 g/dL Low 3.5 - 5.0 g/dL [facility] ALP [Catalytic activity/Vol] 125 U/L 40 - 150 U/L [facility] ALT [Catalytic activity/Vol] 16 U/L [facility] U/L [facility] Anion gap [Moles/Vol] 7 mmol/L 3 - 13 mmol/L [facility] AST [Catalytic activity/Vol] 21 U/L [facility] - 34 U/L [facility] Bilirubin [Mass/Vol] 0.2 mg/dL NINF - 1.2 mg/dL [facility] Calcium [Mass/Vol] 9 mg/dL 8.4 - 10. 2 mg/dL [facility] Chloride [Moles/Vol] 111 mmol/L High 98 - 10 7 mmol/L [facility] CO2 [Moles/Vol] 23 mmol/L 22 - 29 mmol/L [facility] Creatinine [Mass/Vol] 0.67 mg/dL 0.57 - 1.11 mg/dL [facility] GFR/1.73 sq M.predicted (S/P/Bld) [Vol rate/Area] - PINF [facility] Comment on above: Calculation based on the Chronic Kidney Disease Epidemiology Collaboration (CKD-EPI) equation refit without adjustment for race Glucose [Mass/Vol] 98 mg/dL 74 - 100 mg/dL [facility] Interpretation and review of laboratory results Abnormal [facility] Potassium [Moles/Vol] 3.4 mmol/L Low 3.5 - 5.1 mmol/L [facility] Comment on above: Plasma potassium stacey ues may be up to 0.5 mmol/L lower than serum values. Protein [Mass/Vol] 7.6 g/dL 6.4 - 8.3 g/dL [facility] Sodium [Moles/Vol] 141 mmol/L 136 - 145 mmol/L [facility] Urea nitrogen [Mass/Vol] 13 mg/dL 8 - 21 mg/dL [facility] Laboratory - Chemistry and C hemistry - challengeon 01-17-2025 Magnesium [Mass/Vol] 2.2 mg/dL 1.6 - 2 .6 mg/dL [facility] MAGNESIUMon 01-17-2025 Magnesium [Mass/Vol] 2.2 mg/dL Normal 1.6-2.6 [facility] Comment on above: Result Comment: BRIANA Cummings COMMENTS: Higher values can be expected in females during menses. Performed By: #### L AB17, [id number] ####Cardiopulmonary Physical Therapist: ERIKA ANGELO ([phone])[address] Magnesium [Mass/Vol]on 01-17 Interpretation and review of laboratory results Normal [facility] Higher values can be expected in females during menses. [facility] Nursing Noteon 01-17-2025 Nursing Note Called [place] [facility] to request an updated patient medication list to be faxed to [phone] [facility] Wound Cultureon 01-17-2025 WC UNKNOWN LOCATION OF WOUND #3 Clinical correlation necessary, Possible skin contamination. Wound Culture Copy of report sent to Infection Control Printer MS#[id number] 01/16/25 0805 CRISTHIAN. Wound Culture RESULTS CALLED TO [facility]CTU[facility] ANNALISA 01/16/25 0891 [place]. REPORT READ BACK BY [...] Meropenem Islt DARIO <=0.25 S Pip+Tazo Islt DAIRO 32 R Tobramycin Islt DARIO 8 R [...] S Vancomycin Islt DARIO 1 S Normal [facility] Comment on above: Performed By: #### M 100.2000, M100.3000 #### [facility] Laboratory [address] [place] [place], [address] 30on 01-16-2025 30 Problem: Knowledge D eficit Goal: Patient/family/caregiver demonstrates understanding of disease process, treatment plan, medications, and discharge instructions Outcome: Progressing Problem: Potential for Compromised Skin Integrity Goal: Skin Integrity is Maintained or Improved Outcome: Progressing Goal: Nutritional status is improving Outcome: Progressing Problem: Urinary Incontinence Goal: Perineal skin integrity is maintained or improved Outcome: Progressing Normal [facility] [id number] 01-16-2025 [id number] Pt adm to hosp from [place] [facility] w AMS, Hypotension, dehydration, N/V. BP stable. HIDE INSPECTOR tasked to send return referral to SNF. Met w pt, A+O today. Voice is very weak. Soft. Called Legal Guardian,Leola Chappell, , updates given. Pt is a Quad and is Bed bound. CM to follow for DC needs. Normal [facility] CBC W Auto Differential pane l (Bld)Ordered By: Celia Judge on 01-16-2025 Basophils (Bld) [#/Vol] 0 10*3/uL 0.0 - 0.2 10*3/uL [facility] Basophils/100 WBC (Bld) 0.6 % 0.0 - 2.0 % [facility] Eosinophils (Bld) [#/Vol] 0.1 10*3/uL 0.0 - 0.5 10*3/uL [facility] Eosinophils/100 WBC (Bld) 1.7 % 0.0 - 6.0 % [facility] Erythrocyte distribution width (RBC) [Ratio] 14.7 % 11.5 - 15.0 % [facility] Hematocrit (Bld) [Volume fraction] 34.6 % Low 35.0 - 47.0 % [facility] Hemoglobin (Bld) [Mass/Vol] 10.8 g/dL Low 11.7 - 16.0 g/dL [facility] Immature granulocytes (Bld) [#/Vol] 0 10*3/uL NINF - 0.1 10*3/uL [facility] Immature granulocytes/100 WBC (Bld) 0.4 % 0.0 - 2.0 % [facility] Interpretation and review of laboratory results Abnormal [facility] Lymphocytes (Bld) [#/Vol] 2 10*3/uL 1.0 - 4.3 10*3/uL [facility] Lymphocytes/100 WBC (Bld) 38.8 % 15.0 - 45.0 % [facility] MCH (RBC) [Entitic mass] 27.4 pg 26.0 - 34.0 pg [facility] MCHC (RBC) [Mass/Vol] 31.2 % 30.5 - 36.0 % [facility] MCV (RBC) [Entitic vol] 87.8 fL 77.0 - 99.0 fL [facility] Monocytes (Bld) [#/Vol] 0.3 10*3/uL 0.0 - 0.9 10*3/uL [facility] Monocytes/100 WBC (Bld) 5.8 % 5.0 - 13.0 % [facility] Neutrophils (Bld) [#/Vol] 2.8 10*3/uL 1.8 - 7.5 10*3/uL [facility] Neutrophils/100 WBC (Bld) 52.7 % 38.0 - 82.0 % [facility] Nucleated RBC/100 WBC (Bld) [Ratio] 0 % [facility] Platelet mean volume (Bld) [Entitic vol] 10.5 fL 9.0 - 12.7 fL [facility] Platelets (Bld) [#/Vol] 327 10*3/uL 140 - 440 10*3/uL [facility] RBC (Bld) [#/Vol] 3.94 10*6/uL 3.80 - 5.20 10*6/uL [facility] WBC (Bld) [#/Vol] 5.2 10*3/uL 3.6 - 10.7 10*3/uL [facility] CBC WITH AUTO DIFFERENTIALon 01-16-2025 Basophils (Bld) [#/Vol] 0.0 10*3/uL Normal 0.0-0.2 [facility] Comment on above: Performed By: #### L [id number] ####Cardiopulmonary Physical Therapist: ERIKA ANGELO ([phone])[facility])[address] [place] [address] Basophils/100 WBC (Bld) 0.6 % Normal 0.0-2.0 [facility] Comment on above: Performed By: #### L [id number] ####Cardiopulmonary Physical Therapist: ERIKA ANGELO ([phone])[facility] ([facility])[address] [place] [address] [place] Eosinophils (Bld) [#/Vol] 0.1 10*3/uL Normal 0.0-0.5 [facility] Comment on above: Performed By: #### L [id number] ####Cardiopulmonary Physical Therapist: ERIKA ANGELO ([phone])[facility] ([facility])[address] [place] [address] [place] Eosinophils/100 WBC (Bld) 1.7 % Normal 0.0-6.0 [facility] Comment on above: Performed By: #### L [id number] ####Cardiopulmonary Physical Therapist: ERIKA ANGELO ([phone])[facility])[address] [place] [address] Erythrocyte distribution width (RBC) [Ratio] 14.7 % Normal 11.5-15.0 [facility] Comment on above: Performed By: #### L [id number] ####Cardiopulmonary Physical Therapist: ERIKA ANGELO ([phone])[facility])[address] [place] [address] Hematocrit (Bld) [Volume fraction] 34.6 % Low 35.0-47.0 [facility] Comment on above: Performed By: #### L [id number] ####Cardiopulmonary Physical Therapist: ERIKA ANGELO ([phone])[address] Hemoglobin (Bld) [Mass/Vol] 10.8 g/dL Low 11.7-16.0 [facility] Comment on above: Performed By: #### L [id number] ####Cardiopulmonary Physical Therapist: ERIKA ANGELO ([phone])[address] IMMATURE GRANS % 0.4 % Normal 0.0-2.0 [facility] Comment on above: Performed By: #### L [id number] ####Cardiopulmonary Physical Therapist: ERIKA ANGELO ([phone])[address] IMMATURE GRANS ABSOLUTE 0.0 10*3/uL Normal <0.1 [facility] Comment on above: Performed By: #### L [id number] ####Cardiopulmonary Physical Therapist: ERIKA ANGELO ([phone])[place] [address] [place] Lymphocytes (Bld) [#/Vol] 2.0 10*3/uL Normal 1.0-4.3 [facility] Comment on above: Performed By: #### L [id number] ####Cardiopulmonary Physical Therapist: ERIKA ANGELO ([phone])[facility] ([facility])[address] [place] [address] Lymphocytes/100 WBC (Bld) 38.8 % Normal 15.0-45.0 [facility] Comment on above: Performed By: #### L [id number] ####Cardiopulmonary Physical Therapist: ERIKA ANGELO ([phone])[facility])[address] [place] [address] MCH (RBC) [Entitic mass] 27.4 pg Normal 26.0-34.0 [facility] Comment on above: Performed By: #### L [id number] ####Cardiopulmonary Physical Therapist: ERIKA ANGELO ([phone])[facility])[address] [place] [address] MCHC 31.2 % Normal 30.5-36.0 [facility] Comment on above: Performed By: #### L [id number] ####Cardiopulmonary Physical Therapist: ERIKA ANGELO ([id number])[facility] ([facility])[address] [place] [address] MCV (RBC) [Entitic vol] 87.8 fL Normal 77.0-99.0 [facility] Comment on above: Performed By: #### L [id number] ####Cardiopulmonary Physical Therapist: ERIKA ANGELO ([phone])[facility])[address] [place] [address] Monocytes (Bld) [#/Vol] 0.3 10*3/uL Normal 0.0-0.9 [facility] Comment on above: Performed By: #### L [id number] ####Cardiopulmonary Physical Therapist: ERIKA ANGELO ([phone])[facility])[address] [place] [address] Monocytes/100 WBC (Bld) 5.8 % Normal 5.0-13.0 [facility] Comment on above: Performed By: #### L [id number] ####Cardiopulmonary Physical Therapist: ERIKA ANGELO ([phone])[facility])[address] [place] [address] NEUTROPHILS ABSOLUTE 2.8 10*3/uL Normal 1.8-7.5 [facility] Comment on above: Performed By: #### L [id number] ####Cardiopulmonary Physical Therapist: ERIKA ANGELO ([phone])[facility] ([facility])[address] [place] [address] Neutrophils/100 WBC (Bld) 52.7 % Normal 38.0-82.0 [facility] Comment on above: Performed By: #### L [id number] ####Cardiopulmonary Physical Therapist: ERIKA ANGELO ([id number])[facility] ([facility])[address] [place] [address] NRBC 0.0 /100 WBCs Normal 0.0-2.0 [facility] Comment on above: Performed By: #### L [id number] ####Cardiopulmonary Physical Therapist: ERIKA ANGELO ([phone])[facility] ([facility])[address] [place] [address] Platelet mean volume (Bld) [Entitic vol] 10.5 fL Normal 9.0-12.7 [facility] Comment on above: Performed By: #### L [id number] ####Cardiopulmonary Physical Therapist: ERIKA ANGELO ([phone])[facility] ([facility])[address] [place] [address] Platelets (Bld) [#/Vol] 327 10*3/uL Normal 140-440 [facility] Comment on above: Performed By: #### L [id number] ####Cardiopulmonary Physical Therapist: ERIKA ANGELO ([phone])[facility] ([facility])[address] [place] [address] [place] RBC (Bld) [#/Vol] 3.94 10*6/uL Normal 3.80-5.20 [facility] Comment on above: Performed By: #### L [id number] ####Cardiopulmonary Physical Therapist: ERIKA ANGELO ([id number])[facility] ([facility])[address] [place] [address] [place] WBC (Bld) [#/Vol] 5.2 10*3/uL Normal 3.6-10.7 [facility] Comment on above: Performed By: #### L [id number] ####Cardiopulmonary Physical Therapist: ERIKA ANGELO ([phone])[facility])[address] [place] [address] COMPREHENSIVE METABOLIC PANE Patricio 01-16-2025 Albumin [Mass/Vol] 2.7 g/dL Low 3.5-5.0 [facility] Comment on above: Performed By: #### L AB103, LAB17 ####Cardiopulmonary Physical Therapist: ERIKA ANGELO ([phone])[facility] ([facility])[address] [place] [address] ALP [Catalytic activity/Vol] 127 U/L Normal 40-150 [facility] Comment on above: Performed By: #### L AB103, LAB17 ####Cardiopulmonary Physical Therapist: ERIKA ANGELO ([phone])[facility] ([facility])[address] [place] [address] ALT [Catalytic activity/Vol] 14 U/L Normal <30 [facility] Comment on above: Performed By: #### L AB103, LAB17 ####Cardiopulmonary Physical Therapist: ERIKA ANGELO ([phone])[facility])[address] [place] [address] Anion gap [Moles/Vol] 8 mmol/L Normal 3-13 [facility] Comment on above: Performed By: #### L AB103, LAB17 ####Cardiopulmonary Physical Therapist: ERIKA ANGELO ([phone])[facility])[address] [place] [address] AST [Catalytic activity/Vol] 18 U/L Normal <34 [facility] Comment on above: Performed By: #### L AB103, LAB17 ####Cardiopulmonary Physical Therapist: ERIKA ANGELO ([phone])[facility])[address] [place] [address] Bilirubin [Mass/Vol] 0.2 mg/dL Normal <1.2 [facility] Comment on above: Performed By: #### L AB103, LAB17 ####Cardiopulmonary Physical Therapist: ERIKA ANGELO ([phone])[facility] [place] [address] Calcium [Mass/Vol] 8.8 mg/dL Normal 8.4-10.2 [facility] Comment on above: Performed By: #### Hemal ESCAMILLA, LAB17 ####Cardiopulmonary Physical Therapist: ERIKA ANGELO ([phone])[facility] [place] [address] [place] Chloride [Moles/Vol] 112 mmol/L High 98-107 [facility] Comment on above: Performed By: #### Hemal ESCAMILLA, LAB17 ####Cardiopulmonary Physical Therapist: ERIKA ANGELO ([phone])[facility] ([facility])[address] [place] [address] CO2 [Moles/Vol] 21 mmol/L Low 22-29 [facility] Comment on above: Performed By: #### Hemal ESCAMILLA, LAB17 ####Cardiopulmonary Physical Therapist: ERIKA ANGELO ([phone])[facility] [place] [address] Creatinine [Mass/Vol] 0.70 mg/dL Normal 0.57-1.11 [facility] Comment on above: Performed By: #### Hemal ESCAMILLA, LAB17 ####Cardiopulmonary Physical Therapist: ERIKA ANGELO ([phone])[facility] ([facility])[address] [place] [address] GLOMERULAR FILTRATION RATE ML/MIN/1.73 SQ M.PREDICTED >90.0 Normal >60.0 [facility] Comment on above: Result Comment: Calc ulation based on the Chronic Kidney Disease Epidemiology Collaboration (CKD-EPI) equation refit without adjustment for race Performed By: #### L FRANCINE, LAB17 ####Cardiopulmonary Physical Therapist: ERIKA ANGELO ([phone])[facility] ([facility])[address] [place] [address] Glucose [Mass/Vol] 100 mg/dL Normal 74-100 [facility] Comment on above: Performed By: #### Hemal ESCAMILLA, LAB17 ####Cardiopulmonary Physical Therapist: ERIKA ANGELO ([phone])[facility] ([facility])[address] [place] [address] Potassium [Moles/Vol] 3.5 mmol/L Normal 3.5-5.1 [facility] Comment on above: Result Comment: [facility] potassium values may be up to 0.5 mmol/L lower than serum values. Performed By: #### L AB103, LAB17 ####Cardiopulmonary Physical Therapist: ERIKA ANGELO ([phone])[facility] ([facility])[address] [place] [address] Protein [Mass/Vol] 7.0 g/dL Normal 6.4-8.3 [facility] Comment on above: Performed By: #### L AB103, LAB17 ####Cardiopulmonary Physical Therapist: ERIKA ANGELO ([phone])[facility] ([facility])[address] [place] [address] Sodium [Moles/Vol] 141 mmol/L Normal 136-145 [facility] Comment on above: Performed By: #### L AB103, LAB17 ####Cardiopulmonary Physical Therapist: ERIKA ANGELO ([phone])[facility] ([facility])[address] [place] [address] Urea nitrogen [Mass/Vol] 14 mg/dL Normal 8-21 [facility] Comment on above: Performed By: #### L AB103, LAB17 ####Cardiopulmonary Physical Therapist: ERIKA ANGELO ([phone])[facility] ([facility] [place])[address] [place] [address] Comprehensive metabolic 1998 panelon 01-16-2025 Albumin [Mass/Vol] 2.7 g/dL Low 3.5 - 5.0 g/dL [facility] ALP [Catalytic activity/Vol] 127 U/L 40 - 150 U/L [facility] ALT [Catalytic activity/Vol] 14 U/L NINF - 30 U/L [facility] Anion gap [Moles/Vol] 8 mmol/L 3 - 13 mmol/L [facility] AST [Catalytic activity/Vol] 18 U/L NINF - 34 U/L [facility] Bilirubin [Mass/Vol] 0.2 mg/dL NINF - 1.2 mg/dL [facility] Calcium [Mass/Vol] 8.8 mg/dL 8.4 - 10. 2 mg/dL [facility] Chloride [Moles/Vol] 112 mmol/L High 98 - 10 7 mmol/L [facility] CO2 [Moles/Vol] 21 mmol/L Low 22 - 29 mmol/L [facility] Creatinine [Mass/Vol] 0.7 mg/dL 0.57 - 1.11 mg/dL [facility] GFR/1.73 sq M.predicted (S/P/Bld) [Vol rate/Area] - PINF [facility] Comment on above: Calculation based on the Chronic Kidney Disease Epidemiology Collaboration (CKD-EPI) equation refit without adjustment for race Glucose [Mass/Vol] 100 mg/dL 74 - 100 mg/dL [facility] Interpretation and review of laboratory results Abnormal [facility] Potassium [Moles/Vol] 3.5 mmol/L 3.5 - 5.1 mmol/L [facility] Comment on above: Plasma potassium stacey ues may be up to 0.5 mmol/L lower than serum values. Protein [Mass/Vol] 7 g/dL 6.4 - 8.3 g/dL [facility] Sodium [Moles/Vol] 141 mmol/L 136 - 145 mmol/L [facility] Urea nitrogen [Mass/Vol] 14 mg/dL 8 - 21 mg/dL [facility] Laboratory - Chemistry and C hemistry - challengeon 01-16-2025 Magnesium [Mass/Vol] 2.2 mg/dL 1.6 - 2 .6 mg/dL [facility] MAGNESIUMon 01-16-2025 Magnesium [Mass/Vol] 2.2 mg/dL Normal 1.6-2.6 [facility] Comment on above: Result Comment: ORDE R COMMENTS: Higher values can be expected in females during menses. Performed By: #### L [id number], LAB17 ####Cardiopulmonary Physical Therapist: ERIKA ANGELO ([phone])[facility] ([address] Magnesium [Mass/Vol]on 01-16 Interpretation and review of laboratory results Normal [facility] Higher values can be expected in females during menses. [facility] Progress Noteon 01-16-2025 Progress Note Nutrition rescreen completed. Patient referred to the Dietitian. Pressure injury. Normal [facility] CBC W Auto Differential pane l (Bld)Ordered By: Flip Kimball on 01-15-2025 Basophils (Bld) [#/Vol] 0 10*3/uL 0.0 - 0.2 10*3/uL [facility] Basophils/100 WBC (Bld) 0.6 % 0.0 - 2.0 % [facility] Eosinophils (Bld) [#/Vol] 0.1 10*3/uL 0.0 - 0.5 10*3/uL [facility] Eosinophils/100 WBC (Bld) 1.2 % 0.0 - 6.0 % [facility] Erythrocyte distribution width (RBC) [Ratio] 14.7 % 11.5 - 15.0 % [facility] Hematocrit (Bld) [Volume fraction] 37 % 35.0 - 47.0 % [facility] Hemoglobin (Bld) [Mass/Vol] 11.4 g/dL Low 11.7 - 16.0 g/dL [facility] Immature granulocytes (Bld) [#/Vol] 0 10*3/uL NINF - 0.1 10*3/uL [facility] Immature granulocytes/100 WBC (Bld) 0.3 % 0.0 - 2.0 % [facility] Interpretation and review of laboratory results Abnormal [facility] Lymphocytes (Bld) [#/Vol] 1.6 10*3/uL 1.0 - 4.3 10*3/uL [facility] Lymphocytes/100 WBC (Bld) 24.2 % 15.0 - 45.0 % [facility] MCH (RBC) [Entitic mass] 27.5 pg 26.0 - 34.0 pg [facility] MCHC (RBC) [Mass/Vol] 30.8 % 30.5 - 36.0 % [facility] MCV (RBC) [Entitic vol] 89.2 fL 77.0 - 99.0 fL [facility] Monocytes (Bld) [#/Vol] 0.4 10*3/uL 0.0 - 0.9 10*3/uL [facility] Monocytes/100 WBC (Bld) 6.7 % 5.0 - 13.0 % [facility] Neutrophils (Bld) [#/Vol] 4.4 10*3/uL 1.8 - 7.5 10*3/uL [facility] Neutrophils/100 WBC (Bld) 67 % 38.0 - 82.0 % [facility] Nucleated RBC/100 WBC (Bld) [Ratio] 0 % [facility] Platelet mean volume (Bld) [Entitic vol] 10.4 fL 9.0 - 12.7 fL [facility] Platelets (Bld) [#/Vol] 309 10*3/uL 140 - 440 10*3/uL [facility] RBC (Bld) [#/Vol] 4.15 10*6/uL 3.80 - 5.20 10*6/uL [facility] WBC (Bld) [#/Vol] 6.6 10*3/uL 3.6 - 10.7 10*3/uL [facility] CBC WITH AUTO DIFFERENTIALon 01-15-2025 Basophils (Bld) [#/Vol] 0.0 10*3/uL Normal 0.0-0.2 [facility] Comment on above: Performed By: #### L [id number] ####Cardiopulmonary Physical Therapist: ERIKA ANGELO ([phone])[facility])[address] [place] [address] Basophils/100 WBC (Bld) 0.6 % Normal 0.0-2.0 [facility] Comment on above: Performed By: #### L [id number] ####Cardiopulmonary Physical Therapist: ERIKA ANGELO ([id number])[facility])[address] [place] [address] [place] Eosinophils (Bld) [#/Vol] 0.1 10*3/uL Normal 0.0-0.5 [facility] Comment on above: Performed By: #### L [id number] ####Cardiopulmonary Physical Therapist: ERIKA ANGELO ([id number])[facility])[address] [place] [address] [place] Eosinophils/100 WBC (Bld) 1.2 % Normal 0.0-6.0 [facility] Comment on above: Performed By: #### L [id number] ####Cardiopulmonary Physical Therapist: ERIKA [id number])[facility] [place] [address] Erythrocyte distribution width (RBC) [Ratio] 14.7 % Normal 11.5-15.0 [facility] Comment on above: Performed By: #### L [id number] ####Cardiopulmonary Physical Therapist: ERIKA ANGELO ([phone])[facility])[address] [place] [address] Hematocrit (Bld) [Volume fraction] 37.0 % Normal 35.0-47.0 [facility] Comment on above: Performed By: #### L [id number] ####Cardiopulmonary Physical Therapist: ERIKA ANGELO ([phone])[facility])[address] [place] [address] Hemoglobin (Bld) [Mass/Vol] 11.4 g/dL Low 11.7-16.0 [facility] Comment on above: Performed By: #### L [id number] ####Cardiopulmonary Physical Therapist: ERIKA ANGELO ([phone])[facility])[address] [place] [address] IMMATURE GRANS % 0.3 % Normal 0.0-2.0 [facility] Comment on above: Performed By: #### L [id number] ####Cardiopulmonary Physical Therapist: ERIKA ANGELO ([id number])[facility])[address] [place] [address] IMMATURE GRANS ABSOLUTE 0.0 10*3/uL Normal <0.1 [facility] Comment on above: Performed By: #### L [id number] ####Cardiopulmonary Physical Therapist: ERIKA ANGELO ([id number])[facility])[address] [place] [address] Lymphocytes (Bld) [#/Vol] 1.6 10*3/uL Normal 1.0-4.3 [facility] Comment on above: Performed By: #### L [id number] ####Cardiopulmonary Physical Therapist: ERIKA ANGELO ([id number])[facility])[address] [place] [address] Lymphocytes/100 WBC (Bld) 24.2 % Normal 15.0-45.0 [facility] Comment on above: Performed By: #### L [id number] ####Cardiopulmonary Physical Therapist: ERIKA ANGELO ([phone])[facility])[address] [place] [address] MCH (RBC) [Entitic mass] 27.5 pg Normal 26.0-34.0 [facility] Comment on above: Performed By: #### L [id number] ####Cardiopulmonary Physical Therapist: ERIKA ANGELO ([phone])[facility])[address] [place] [address] MCHC 30.8 % Normal 30.5-36.0 [facility] Comment on above: Performed By: #### L [id number] ####Cardiopulmonary Physical Therapist: ERIKA ANGELO ([id number])[facility])[address] [place] [address] MCV (RBC) [Entitic vol] 89.2 fL Normal 77.0-99.0 [facility] Comment on above: Performed By: #### L [id number] ####Cardiopulmonary Physical Therapist: ERIKA ANGELO ([id number])[facility])[address] [place] [address] Monocytes (Bld) [#/Vol] 0.4 10*3/uL Normal 0.0-0.9 [facility] Comment on above: Performed By: #### L [id number] ####Cardiopulmonary Physical Therapist: ERIKA ANGELO ([id number])[facility])[address] [place] [address] Monocytes/100 WBC (Bld) 6.7 % Normal 5.0-13.0 [facility] Comment on above: Performed By: #### L [id number] ####Cardiopulmonary Physical Therapist: ERIKA ANGELO ([phone])[facility])[address] [place] [address] NEUTROPHILS ABSOLUTE 4.4 10*3/uL Normal 1.8-7.5 [facility] Comment on above: Performed By: #### L [id number] ####Cardiopulmonary Physical Therapist: ERIKA ANGELO ([id number])[facility] ([facility])[address] [place] [address] Neutrophils/100 WBC (Bld) 67.0 % Normal 38.0-82.0 [facility] Comment on above: Performed By: #### L [id number] ####Cardiopulmonary Physical Therapist: ERIKA ANGELO ([id number])[facility] ([facility])[address] [place] [address] NRBC 0.0 /100 WBCs Normal 0.0-2.0 [facility] Comment on above: Performed By: #### L [id number] ####Cardiopulmonary Physical Therapist: ERIKA ANGELO ([phone])[facility])[address] [place] [address] Platelet mean volume (Bld) [Entitic vol] 10.4 fL Normal 9.0-12.7 [facility] Comment on above: Performed By: #### L [id number] ####Cardiopulmonary Physical Therapist: ERIKA ANGELO ([id number])[facility] ([facility])[address] [place] [address] Platelets (Bld) [#/Vol] 309 10*3/uL Normal 140-440 [facility] Comment on above: Performed By: #### L [id number] ####Cardiopulmonary Physical Therapist: ERIKA ANGELO ([id number])[facility])[address] [place] [address] RBC (Bld) [#/Vol] 4.15 10*6/uL Normal 3.80-5.20 [facility] Comment on above: Performed By: #### L [id number] ####Cardiopulmonary Physical Therapist: ERIKA ANGELO ([id number])[facility] ([facility])[address] [place] [address] [place] WBC (Bld) [#/Vol] 6.6 10*3/uL Normal 3.6-10.7 [facility] Comment on above: Performed By: #### L [id number] ####Cardiopulmonary Physical Therapist: ERIKA ANGELO ([id number])[facility])[address] [place] [address] COMPREHENSIVE METABOLIC PANE Patricio 01-15-2025 Albumin [Mass/Vol] 2.7 g/dL Low 3.5-5.0 [facility] Comment on above: Performed By: #### L [id number] ####Cardiopulmonary Physical Therapist: ERIKA ANGELO ([id number])[facility] ([facility])[address] [place] [address] ALP [Catalytic activity/Vol] 116 U/L Normal 40-150 [facility] Comment on above: Performed By: #### L [id number] ####Cardiopulmonary Physical Therapist: ERIKA ANGELO ([id number])[facility])[address] [place] [address] ALT [Catalytic activity/Vol] 18 U/L Normal <30 [facility] Comment on above: Performed By: #### L [id number] ####Cardiopulmonary Physical Therapist: ERIKA ANGELO ([id number])[facility])[address] [place] [address] Anion gap [Moles/Vol] 6 mmol/L Normal 3-13 [facility] Comment on above: Performed By: #### L [id number] ####Cardiopulmonary Physical Therapist: ERIKA ANGELO ([id number])[facility])[address] [place] [address] AST [Catalytic activity/Vol] 24 U/L Normal <34 [facility] Comment on above: Performed By: #### L [id number] ####Cardiopulmonary Physical Therapist: ERIKA ANGELO ([id number])[facility])[address] [place] [address] Bilirubin [Mass/Vol] 0.3 mg/dL Normal <1.2 [facility] Comment on above: Performed By: #### L [id number] ####Cardiopulmonary Physical Therapist: ERIKA ANGELO ([phone])[facility])[address] [place] [address] Calcium [Mass/Vol] 8.6 mg/dL Normal 8.4-10.2 [facility] Comment on above: Performed By: #### L [id number] ####Cardiopulmonary Physical Therapist: ERIKA ANGELO ([id number])[facility])[address] [place] [address] Chloride [Moles/Vol] 113 mmol/L High 98-107 [facility] Comment on above: Performed By: #### L [id number] ####Cardiopulmonary Physical Therapist: ERIKA ANGELO ([id number])[facility])[address] [place] [address] CO2 [Moles/Vol] 21 mmol/L Low 22-29 [facility] Comment on above: Performed By: #### L [id number] ####Cardiopulmonary Physical Therapist: ERIKA ANGELO ([id number])[facility])[address] [place] [address] Creatinine [Mass/Vol] 0.67 mg/dL Normal 0.57-1.11 [facility] Comment on above: Performed By: #### L [id number] ####Cardiopulmonary Physical Therapist: ERIKA ANGELO ([id number])[facility])[address] [place] [address] GLOMERULAR FILTRATION RATE ML/MIN/1.73 SQ M.PREDICTED >90.0 Normal >60.0 [facility] Comment on above: Result Comment: Calc ulation based on the Chronic Kidney Disease Epidemiology Collaboration (CKD-EPI) equation refit without adjustment for race Performed By: #### L [id number] ####Cardiopulmonary Physical Therapist: ERIKA ANGELO ([id number])[facility])[address] [place] [address] Glucose [Mass/Vol] 94 mg/dL Normal 74-100 [facility] Comment on above: Performed By: #### L [id number] ####Cardiopulmonary Physical Therapist: ERIKA ANGELO ([phone])[facility])[address] [place] [address] Potassium [Moles/Vol] 4.1 mmol/L Normal 3.5-5.1 [facility] Comment on above: Result Comment: [facility] potassium values may be up to 0.5 mmol/L lower than serum values. Performed By: #### L [id number] ####Cardiopulmonary Physical Therapist: ERIKA ANGELO ([id number])[facility])[address] [place] [address] Protein [Mass/Vol] 7.0 g/dL Normal 6.4-8.3 [facility] Comment on above: Performed By: #### L [id number] ####Cardiopulmonary Physical Therapist: ERIKA ANGELO ([phone])[facility])[address] [place] [address] Sodium [Moles/Vol] 140 mmol/L Normal 136-145 [facility] Comment on above: Performed By: #### L [id number] ####Cardiopulmonary Physical Therapist: ERIKA ANGELO ([id number])[address] Urea nitrogen [Mass/Vol] 12 mg/dL Normal 8-21 [facility] Comment on above: Performed By: #### L [id number] ####Cardiopulmonary Physical Therapist: ERIKA ANGELO ([phone])[address] SHOULDER LEFT WO IV CONTR Freddy 01-15-2025 CT SHOULDER LEFT WO IV CONTRAST Patient Name: DIANA CALABRESE : 1975 [facility]#: [id number] Exam Date/Time: 01/15/2025 01:23 Procedure: CT SHOULDER [...] s/p L humeral head IO, c/f arthrotomy [facility] CT Shoulder - left WO [facility] 01-15-2025 No fracture or dislocation of the left shoulder is identified. No joint effusion, fluid collection, or soft tissue gas is identified. Degenerative changes of the left acromioclavicular and glenohumeral joints. Report Dictated on Electronically Signed By: Preston Ferrari MD Electronically Signed Date/Time: 01/15/2025 2:43 AM T [facility] 1975 [id number] Exam Date/Time: 01/15/2025 01:23 Procedure: CT SHOULDER [...] pleural effusion is noted, not fully imaged. [facility] Preston Ferrari MD - 01/15/2025 [...] Electronically Signed Date/Time: 01/15/2025 2:43 AM EDT [facility] Radiology Study observation (narrative) [facility] Comprehensive metabolic 1998 panelon 01-15-2025 Albumin [Mass/Vol] 2.7 g/dL Low 3.5 - 5.0 g/dL [facility] ALP [Catalytic activity/Vol] 116 U/L 40 - 150 U/L [facility] ALT [Catalytic activity/Vol] 18 U/L NINF - 30 U/L [facility] Anion gap [Moles/Vol] 6 mmol/L 3 - 13 mmol/L [facility] AST [Catalytic activity/Vol] 24 U/L NINF - 34 U/L [facility] Bilirubin [Mass/Vol] 0.3 mg/dL NINF - 1.2 mg/dL [facility] Calcium [Mass/Vol] 8.6 mg/dL 8.4 - 10. 2 mg/dL [facility] Chloride [Moles/Vol] 113 mmol/L High 98 - 10 7 mmol/L [facility] CO2 [Moles/Vol] 21 mmol/L Low 22 - 29 mmol/L [facility] Creatinine [Mass/Vol] 0.67 mg/dL 0.57 - 1.11 mg/dL [facility] GFR/1.73 sq M.predicted (S/P/Bld) [Vol rate/Area] - PINF [facility] Comment on above: Calculation based on the Chronic Kidney Disease Epidemiology Collaboration (CKD-EPI) equation refit without adjustment for race Glucose [Mass/Vol] 94 mg/dL 74 - 100 mg/dL [facility] Interpretation and review of laboratory results Abnormal [facility] Potassium [Moles/Vol] 4.1 mmol/L 3.5 - 5.1 mmol/L [facility] Comment on above: Plasma potassium stacey ues may be up to 0.5 mmol/L lower than serum values. Protein [Mass/Vol] 7 g/dL 6.4 - 8.3 g/dL [facility] Sodium [Moles/Vol] 140 mmol/L 136 - 145 mmol/L [facility] Urea nitrogen [Mass/Vol] 12 mg/dL 8 - 21 mg/dL [facility] Consulton 01-15-2025 Consult [facility] CONSULT Note Diana Calabrese [...] (97.4 ?F) (Temporal) Resp 16 Ht 5' 7 (1.702 m) Wt 200 lb (90.7 kg) [...] to follow Recommend to follow up at [facility] wound care center after hospital discharge. Any questions or concerns please secure chat [facility] wound/ostomy. Thank you for the consult! I personally [...] current facility-administere (more content not included)... Normal [facility] ECG 12-LEADon 01-15-2025 ECG 12-LEAD IMPRESSION: Sinus rhythm Borderline T abnormalities, inferior leads Electronically Signed On 01-15-2025 15:46:22 EDT by Mendel Santiago Normal [facility] Laboratory - Chemistry and C hemistry - challengeon 01-15-2025 Magnesium [Mass/Vol] 2.3 mg/dL 1.6 - 2 .6 mg/dL [facility] Magnesium [Mass/Vol]on 01-15 Higher values can be expected in females during menses. [facility] No Panel InformationOrdered By: Mendel Santiago on 01-15-2025 P [place] 65 degrees [employer] Phone: OK Interval 160 ms [employer] Phone: QRS [place] 60 degrees [employer] Phone: QRSD Interval 93 ms [employer] Phone: QT Interval 380 ms [employer] Phone: QTC Interval 425 ms [employer] Phone: T Wave [place] -29 degrees [employer] Phone: [employer] Phone: No Panel Informationon 01-15 Sinus rhythm Borderline T abnormalities, inferior leads Electronically Signed On 01-15-2025 15:46:22 EDT by Mendel Fuller MD - 01/15/2025 IMPRESSION: Sinus rhythm Borderline T abnormalities, inferior leads Electronically Signed On 01-15-2025 15:46:22 EDT by Mendel Santiago [facility] Interpretation and review of laboratory results Normal [facility] Phosphate [Moles/Vol]on 12-29 Phosphate [Mass/Vol] 4.3 mg/dL 2.3 - 4 .7 mg/dL [facility] Progress Noteon 01-15-2025 Progress Note PHYSICAL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 ACID WITH REFLEXon Lactate [Moles/Vol] 1.5 mmol/L Normal 0.5-2.2 [facility] Comment on above: Performed By: #### L [id number] ####Cardiopulmonary Physical Therapist: ERIKA ANGELO ([phone])[facility] [employer] ([employer])[address] [place] [address] Laboratory - Chemistry and C hemistry - challengeon 01-14-2025 Glucose [Mass/Vol] 76 mg/dL 70 - 100 mg/dL [facility] Lactate [Moles/Vol] 1.5 mmol/L 0.5 - 2. 2 mmol/L [facility] Laboratory - Coagulationon 0 01-14-2025 PT Coag (Bld) [Time] 11.1 s 9.0 - 1 2.0 s [facility] MAGNESIUMon 01-14-2025 Magnesium [Mass/Vol] 2.3 mg/dL Normal 1.6-2.6 [facility] Comment on above: Result Comment: ORDE R COMMENTS: Higher values can be expected in females during menses. Performed By: #### L [id number], [id number], [id number] ####Cardiopulmonary Physical Therapist: ERIKA ANGELO ([phone])[facility]MINISTRATIONRollCall (roll.[employer])AN ([employer])[address] [place] [address] No Panel Informationon 01-14 Interpretation and review of laboratory results Normal [facility] Performed by: [facility] CorbinWame[facility] Saul, [address] [place] [address] CLIA ID: [id number] [facility] Interpretation and review of laboratory results Normal [facility] P [place] 43 degrees [facility] OK Interval 133 ms [facility] QRS [place] 37 degrees [facility] QRSD Interval 92 ms [facility] QT Interval 398 ms [facility] QTC Interval 432 ms [facility] T Wave [place] -3 degrees [facility] Sinus rhythm Low voltage, precordial leads Electronically Signed On 01-14-2025 11:27:04 EDT by Danny Balderas CV Danny Avila MD - 01/14/2025 IMPRESSION: Sinus rhythm Low voltage, precordial leads Electronically Signed On 01-14-2025 11:27:04 EDT by Danny Balderas [facility] Danny Balderas MD 12/29 6:23 PM [...] and altered mental status concern for sepsis. [facility] Nursing Noteon 01-14-2025 Nursing Note Pt arrived from ED, incontinent of urine and stool, cleaned and changed, external cath applied, pt A&O x 1, hallucinating, unable to do admit questions at this time, pt unable to move any extremities, blow in call light requested from [facility], bed alarm on for safety. Normal [facility] PHOSPHORUSon 01-14-2025 Phosphate [Mass/Vol] 4.3 mg/dL Normal 2.3-4.7 [facility] Comment on above: Performed By: #### L AB17, [id number], [id number] ####Cardiopulmonary Physical Therapist: ERIKA ANGELO ([phone])[facility]MINISTRATIONDaniel BARBARA ALISASHLELY ([facility])[address] [place] [address] PROTHROMBIN TIMEon INR Coag (PPP) [Relative time] 1.0 {INR} Normal 0.9-1.1 [facility] Comment on above: Result Comment: Keith [...] Myocardial Infarction Performed By: #### L [id number] ####Cardiopulmonary Physical Therapist: ERIKA ANGELO ([phone])[facility]MINISTRATIONDaniel BARBARA ALISADOMENICAN ([employer])[address] [place] [address] PT Coag (PPP) [Time] 11.1 s Normal 9.0-12.0 [facility] Comment on above: Performed By: #### L AB320 ####Cardiopulmonary Physical Therapist: ERIKA ANGELO ([phone])[facility]ISTRATIONDaniel BARBARA ALISADOMENICAN ([employer])[address] [place] [address] PT Coag (Bld) [Time]on 01-14 INR Coag (PPP) [Relative time] 1 {INR} 0.9 - 1.1 [facility] Comment on above: Recommended Anticoag ulant Therapy: [...] Interpretation and review of laboratory results Normal [facility] Progress Noteon 01-14-2025 Progress Note Care Coordination: Patient transferred to [facility] ED for ED to ED transfer by Dr. Sims for hypotension and possible sepsis. On arrival to [facility] ED ICU paged to assess patient. She [...] This is not a billable encounter. Normal [facility] System [facility]S Urinalysis complete panel (U )on 01-14-2025 Bilirubin Ql (U) Negative Negative mg/dL [facility] Clarity (U) Clear Clear [facility] Color (U) Colorless Lt. Yellow [facility] Glucose Ql (U) Normal Normal (<70) mg/dL [facility] Hemoglobin Ql (U) Negative Negative mg/dL [facility] Interpretation and review of laboratory results Normal [facility] Ketones (U) [Mass/Vol] Negative Negat golden mg/dL [facility] Leukocyte esterase Test strip Ql (U) Negative Negative Robert/uL [facility] Nitrite Ql (U) Negative Negative [facility] pH (U) 5.5 [pH] 5.0 - 8.0 pH [facility] Protein (U) [Mass/Vol] Negative Negat golden mg/dL [facility] Specific gravity (U) [Rel density] 1.006 1.005 - 1.030 [facility] Urobilinogen (U) [Mass/Vol] Normal Normal (0-1) mg/dL [facility] A specimen with <=10 WBC is not consistent with inflammation. This specimen will not reflex to a urine culture. [facility] Vital signson 01-14-2025 Heart rate 71 /min bpm [facility] XR Abdomen Single viewon Nonspecific, nonobstructive gas pattern. Large amount of stool within the rectum, which is suspected to measure at least 11 cm in diameter. Multiple large left renal calculi, similar to a CT from 07/11/2023. Report Dictated on Electronically Signed By: Preston Ferrari MD Electronically Signed Date/Time: 01/14/2025 11:59 PM EDT [facility] [facility] Patient Name: DIANA PUGH : 1975 [...] near the expected location of the coccyx. [facility] Preston Ferrari MD - 01/15/2025 [facility] Name[facility]ABRESE [facility] 1975 [id number] Exam Date/Time: 01/14/2025 23:33 Procedure: XR ABDOMEN [...] Electronically Signed Date/Time: 01/14/2025 11:59 PM EDT [facility] Radiology Study observation (narrative) [facility] XR Abdomen Single viewOrdere d By: Preston Ferrari on 01-14-2025 [facility] XR Shoulder - left 2 Viewson 01-14-2025 1. Allowing for limitations, no acute fracture or dislocation. 2. Moderate degenerative changes in the left glenohumeral joint and to lesser extent left acromioclavicular joint. Report Dictated on Electronically Signed By: Manoj Hogan MD Electronically Signed Date/Time: 01/14/2025 9:13 PM EDT [facility] Patient Name: DIANA PUGH : 1975 [...] visualized spine. Soft tissues: Within normal limits. [facility] Candy Hogan MD - 01/14/2025 [...] Electronically Signed Date/Time: 01/14/2025 9:13 PM EDT [facility] Radiology Study observation (narrative) [facility] XR Shoulder - left 2 ViewsOr dered By: Candy Hogan on 01-14-2025 [facility] Work Phone: aPTT Coag (Bld) [Time]on aPTT Coag (PPP) [Time] 29.1 s 20.0 - 30.5 s [facility] Interpretation and review of laboratory results Normal [facility] NOTE: The therapeuti c time for Heparin anticoagulation, based on Xa activity inhibition, is an APTT of 46-80 seconds. [facility] Gram Stainon 01-13-2025 GS UNKNOWN LOCATION OF WOUND Gram Stain 2+ Gram negative rods Rare Gram positive cocci Normal [facility] Comment on above: Performed By: #### M 100.2000, M100.3000 #### [facility] Laboratory [address] [place], [place], [id number] Absolute lymphocyte countOrd ered By: Venkat Malin on 12-11-2024 Lymphocytes Auto (Unsp spec) [#/Vol] 2.74 10*3/uL 0.83-4.51 [facility] Absolute neutrophil countOrd ered By: Venkat Malin on 12-11-2024 Neutrophils (Bld) [#/Vol] 4.3 10*3/uL 2.0-7.7 [facility] Automated lymphocyte count a s percentage of total leukocytesOrdered By: Venkat Malin on 12-11-2024 Lymphocytes/100 WBC Auto (Unsp spec) 34.7 % 19-41 [facility] Basophil percentageOrdered B y: Venkat Malin on 12-11-2024 Basophils/100 WBC (Bld) 0.5 % 0-1 [facility] CBC W/Diff, Automatedon 11-28 Absolute Lymph 2.74 X10 3/uL Normal 0.83-4.51 [facility] Comment on above: Order Comment: 302-1 Performed By: #### L 500.4050, L100.0500 #### [facility] Laboratory [address] [place], [place], [id number] Absolute Neut 4.3 X10 3/uL Normal 2.0-7.7 [facility] Comment on above: Order Comment: 302-1 Performed By: #### L 500.4050, L100.0500 #### [facility] Laboratory [address] [place], [address] Basophils/100 WBC (Bld) 0.5 % Normal 0-1 [facility] Comment on above: Order Comment: 302-1 Performed By: #### L 500.4050, L100.0500 #### [facility] Laboratory [address] [place], [address] Eosinophils/100 WBC (Bld) 1.8 % Normal 0-5 [facility] Comment on above: Order Comment: 302-1 Performed By: #### L 500.4050, L100.0500 #### [facility] Laboratory [address] [place], [address] Erythrocyte distribution width (RBC) [Ratio] 15.2 % High 11.6-14.6 [facility] Comment on above: Order Comment: 302-1 Performed By: #### L 500.4050, L100.0500 #### [facility] Laboratory [address] [place], [address] Hematocrit (Bld) [Volume fraction] 37.1 % Normal 37-47 [facility] Comment on above: Order Comment: 302-1 Performed By: #### L 500.4050, L100.0500 #### [facility] [address] [place], [address] Hemoglobin (Bld) [Mass/Vol] 11.4 g/dL Low 12.0-15.0 [facility] Comment on above: Order Comment: 302-1 Performed By: #### L 500.4050, L100.0500 #### [facility] [address] [place], [address] IG% 0.300 Normal 0.0-0.9 [facility] Comment on above: Order Comment: 302-1 Result Comment: IG% - Immature Granulocytes (promyelocytes, myelocytes and metamyelocytes) > 1% indicates that a LEFT SHIFT is Present. Performed By: #### L 500.4050, L100.0500 #### [facility] [address] [place], [address] Lymphocytes/100 WBC (Bld) 34.7 % Normal 19-41 [facility] Comment on above: Order Comment: 302-1 Performed By: #### L 500.4050, L100.0500 #### [facility] [address] [place], [address] MCH (RBC) [Entitic mass] 27.5 pg Normal 27.0-32.0 [facility] Comment on above: Order Comment: 302-1 Performed By: #### L 500.4050, L100.0500 #### [facility] [address] [place], [address] MCHC (RBC) [Mass/Vol] 30.7 g/dL Low 32-[address] [facility] Comment on above: Order Comment: 302-1 Performed By: #### L 500.4050, L100.0500 #### [facility] [address] [place], [address] MCV (RBC) [Entitic vol] 89.4 fL Normal 81-99 [facility] Comment on above: Order Comment: 302-1 Performed By: #### L 500.4050, L100.0500 #### [facility] [address] [place], [address] Monocytes/100 WBC (Bld) 8.9 % Normal 0-10 [facility] Comment on above: Order Comment: 302-1 Performed By: #### L 500.4050, L100.0500 #### [facility] [address] [place], [address] Neutrophils/100 WBC (Bld) 53.8 % Normal 47-70 [facility] Comment on above: Order Comment: 302-1 Performed By: #### L 500.4050, L100.0500 #### [facility] [address] [place], [address] Nucleated RBC (Bld) [#/Vol] 0 10*3/uL Normal 0-5 [facility] Comment on above: Order Comment: 302-1 Performed By: #### L 500.4050, L100.0500 #### [facility] Laboratory [address] [place], [address] Platelet mean volume (Bld) [Entitic vol] 10.8 fL Normal 6.2-12.0 [facility] Comment on above: Order Comment: 302-1 Performed By: #### L 500.4050, L100.0500 #### [facility] Laboratory [address] [place], [address] Platelets (Bld) [#/Vol] 345 10*3/uL Normal 150-450 [facility] Comment on above: Order Comment: 302-1 Performed By: #### L 500.4050, L100.0500 #### [facility] Laboratory [address] [place], [address] RBC (Bld) [#/Vol] 4.15 10*6/uL Low 4.2-5.4 [facility] Comment on above: Order Comment: 302-1 Performed By: #### L 500.4050, L100.0500 #### [facility] Laboratory [address] [place], [address] RDW SD 49.8 fl High 35.1-43.9 [facility] Comment on above: Order Comment: 302-1 Performed By: #### L 500.4050, L100.0500 #### [facility] [address] [place], [address] WBC (Bld) [#/Vol] 7.9 10*3/uL Normal 4.4-11.0 [facility] Comment on above: Order Comment: 302-1 Performed By: #### L 500.4050, L100.0500 #### [facility] [address] [place], [address] Eosinophil percentageOrdered By: Venkat Malin on 12-11-2024 Eosinophils/100 WBC (Bld) 1.8 % 0-5 [facility] Erythrocyte distribution wid th ratioOrdered By: Venkat Malin on 12-11-2024 Erythrocyte distribution width (RBC) [Ratio] 15.2 % High 11.6-14.6 [facility] Erythrocyte distribution wid th standard deviationOrdered By: Venkat Malin on 12-11-2024 Erythrocyte distribution width (RBC) [Ratio] 49.8 fl High 35.1-43.9 [facility] Hematocrit Auto (Bld) [Volum e fraction]Ordered By: Venkat Malin on 12-11-2024 Hematocrit (Bld) [Volume fraction] 37.1 % 37-47 [facility] Hemoglobin measurementOrdere d By: Venkat Malin on 12-11-2024 Hemoglobin (Bld) [Mass/Vol] 11.4 g/dL Low 12.0-15.0 [facility] Immature granulocytes/100 WB C Auto (Bld)Ordered By: Venkat Malin on 12-11-2024 Immature granulocytes/100 WBC (Bld) 0.300 % 0.0-0.9 [facility] Comment on above: IG% - Immature Granu locytes (promyelocytes, myelocytes and metamyelocytes) > 1% indicates that a LEFT SHIFT is Present. MCV (mean corpuscular volume ) determinationOrdered By: Venkat Malin on 12-11-2024 MCV (RBC) [Entitic vol] 89.4 fL 81-99 [facility] Mean corpuscular hemoglobin (MCH) determinationOrdered By: Venkat Malin on 12-11-2024 MCH (RBC) [Entitic mass] 27.5 pg 27.0-32.0 [facility] Mean corpuscular hemoglobin concentration (MCHC) determinationOrdered By: Venkat Malin on 12-11-2024 MCHC (RBC) [Mass/Vol] 30.7 g/dL Low 32-[address] [facility] Mean platelet volume determi nationOrdered By: Venkat Malin on 12-11-2024 Platelet mean volume (Bld) [Entitic vol] 10.8 fL 6.2-12.0 [facility] Monocyte percentageOrdered B y: Venkat Malin on 12-11-2024 Monocytes/100 WBC (Bld) 8.9 % 0-10 [facility] Neutrophil percentageOrdered By: Venkat Malin on 12-11-2024 Neutrophils/100 WBC (Bld) 53.8 % 47-70 [facility] Nucleated red blood cell per centageOrdered By: Venkat Malin on 12-11-2024 Nucleated RBC/100 WBC (Bld) [Ratio] 0 % 0-5 [facility] Platelet countOrdered By: Dov Gonzalez on 12-11-2024 Platelets (Bld) [#/Vol] 345 10*3/uL 150-450 [facility] RBC Auto (Bld) [#/Vol]Ordere d By: Venkat Malin on 12-11-2024 RBC (Bld) [#/Vol] 4.15 10*6/uL Low 4.2-5.4 [facility] White blood cell (WBC) count Ordered By: Venkat Malin on 12-11-2024 WBC (Bld) [#/Vol] 7.9 10*3/uL 4.4-11.0 [facility] Anion gap in Serum or Plasma Ordered By: Venkat Malin on 10-24-2024 Anion gap [Moles/Vol] 10 mmol/L 5-[address] [facility] BUN/creatinine ratioOrdered By: Venkat Malin on 10-24-2024 Urea nitrogen/Creatinine [Mass ratio] 21.5 mg/mg High 10-20 [facility] Bilirubin, totalOrdered By: Venkat Malin on 10-24-2024 Bilirubin [Mass/Vol] 0.18 mg/dL 0.00-1.30 [facility] CBC-Complete Blood Cnt No Di ffon 10-24-2024 Erythrocyte distribution width (RBC) [Ratio] 15.2 % High 11.6-14.6 [facility] Comment on above: Order Comment: 302.1 Performed By: #### L 100.0500, L500.4050 #### [facility] Laboratory [address] [place], [address] Hematocrit (Bld) [Volume fraction] 41.1 % Normal 37-47 [facility] Comment on above: Order Comment: 302.1 Performed By: #### L 100.0500, L500.4050 #### [facility] [address] [place], [address] Hemoglobin (Bld) [Mass/Vol] 12.7 g/dL Normal 12.0-15.0 [facility] Comment on above: Order Comment: 302.1 Performed By: #### L 100.0500, L500.4050 #### [facility] [address] [place], [address] MCH (RBC) [Entitic mass] 27.5 pg Normal 27.0-32.0 [facility] Comment on above: Order Comment: 302.1 Performed By: #### L 100.0500, L500.4050 #### [facility] [address] [place], [address] MCHC (RBC) [Mass/Vol] 30.9 g/dL Low 32-[address] [facility] Comment on above: Order Comment: 302.1 Performed By: #### L 100.0500, L500.4050 #### [facility] [address] [place], [address] MCV (RBC) [Entitic vol] 89.0 fL Normal 81-99 [facility] Comment on above: Order Comment: 302.1 Performed By: #### L 100.0500, L500.4050 #### [facility] [address] [place], [address] Platelet mean volume (Bld) [Entitic vol] 11.1 fL Normal 6.2-12.0 [facility] Comment on above: Order Comment: 302.1 Performed By: #### L 100.0500, L500.4050 #### [facility] [address] [place], [address] Platelets (Bld) [#/Vol] 348 10*3/uL Normal 150-450 [facility] Comment on above: Order Comment: 302.1 Performed By: #### L 100.0500, L500.4050 #### [facility] [address] [place], [address] RBC (Bld) [#/Vol] 4.62 10*6/uL Normal 4.2-5.4 [facility] Comment on above: Order Comment: 302.1 Performed By: #### L 100.0500, L500.4050 #### [facility] [address] [place], [address] RDW SD 49.9 fl High 35.1-43.9 [facility] Comment on above: Order Comment: 302.1 Performed By: #### L 100.0500, L500.4050 #### [facility] [address] [place], [address] WBC (Bld) [#/Vol] 7.9 10*3/uL Normal 4.4-11.0 [facility] Comment on above: Order Comment: 302.1 Performed By: #### L 100.0500, L500.4050 #### [facility] [address] [place], [address] Carbon dioxide, total [Moles /volume] in Central venous bloodOrdered By: Venkat Malin on 10-24-2024 CO2 [Moles/Vol] 21.9 mmol/L 21.0-32.0 [facility] Chloride assayOrdered By: Dov Gonzalez on 10-24-2024 Chloride [Moles/Vol] 108 mmol/L 98-108 [facility] Comprehensive Metabolic Prof ilon 10-24-2024 Albumin [Mass/Vol] 3.0 g/dL Low 3.5-5.0 [facility] Comment on above: Order Comment: 302.1 Performed By: #### L 100.0500, L500.4050 #### [facility] [address] [place], [address] Albumin/Globulin [Mass ratio] 0.7 {ratio} Low 0.9-2.4 [facility] Comment on above: Order Comment: 302.1 Performed By: #### L 100.0500, L500.4050 #### [facility] [address] [place], [address] ALK PHOS 130 U/L High 35-104 [facility] Comment on above: Order Comment: 302.1 Performed By: #### L 100.0500, L500.4050 #### [facility] [address] [place], [address] ALT [Catalytic activity/Vol] 15 U/L Normal <=34 [facility] Comment on above: Order Comment: 302.1 Performed By: #### L 100.0500, L500.4050 #### [facility] [address] [place], [address] AST [Catalytic activity/Vol] 22 U/L Normal <=31 [facility] Comment on above: Order Comment: 302.1 Performed By: #### L 100.0500, L500.4050 #### [facility] [address] [place], [address] Bilirubin [Mass/Vol] 0.18 mg/dL Normal 0.00-1.30 [facility] Comment on above: Order Comment: 302.1 Performed By: #### L 100.0500, L500.4050 #### [facility] [address] [place], [address] BUN/CRE 21.5 RATIO High 10-20 [facility] Comment on above: Order Comment: 302.1 Performed By: #### L 100.0500, L500.4050 #### [facility] [address] [place], [address] Calcium [Mass/Vol] 8.7 mg/dL Normal 7.6-11.0 [facility] Comment on above: Order Comment: 302.1 Performed By: #### L 100.0500, L500.4050 #### [facility] [address] [place], [address] Chloride [Moles/Vol] 108 mmol/L Normal 98-108 [facility] Comment on above: Order Comment: 302.1 Performed By: #### L 100.0500, L500.4050 #### [facility] [address] [place], [address] CO2 [Moles/Vol] 21.9 mmol/L Normal 21.0-32.0 [facility] Comment on above: Order Comment: 302.1 Performed By: #### L 100.0500, L500.4050 #### [facility] [address] [place], [address] Creatinine [Mass/Vol] 0.67 mg/dL Low 0.70-1.[address] [facility] Comment on above: Order Comment: 302.1 Performed By: #### L 100.0500, L500.4050 #### [facility] [address] [place], [address] GAP 10 Normal 5-15 [facility] Comment on above: Order Comment: 302.1 Performed By: #### L 100.0500, L500.4050 #### [facility] [address] [place], [address] GFR/1.73 sq M.predicted among non-blacks MDRD (S/P/Bld) [Vol rate/Area] 107 mL/min/{1.73_m2} Normal >60 [facility] Comment on above: Order Comment: 302.1 Result Comment: mL/m in/1.73m2 CKD-EPI Creatinine Equation (2020) Performed By: #### L 100.0500, L500.4050 #### [facility] [address] [place], [address] Globulin (S) [Mass/Vol] 4.3 g/dL High 2.2-4.2 [facility] Comment on above: Order Comment: 302.1 Performed By: #### L 100.0500, L500.4050 #### [facility] [address] [place], [address] Glucose [Mass/Vol] 90 mg/dL Normal 70-99 [facility] Comment on above: Order Comment: 302.1 Performed By: #### L 100.0500, L500.4050 #### [facility] [address] [place], [address] Potassium [Moles/Vol] 3.9 mmol/L Normal 3.3-5.[address] [facility] Comment on above: Order Comment: 302.1 Result Comment: Hemo lysis present, Results??could be affected. ?? Performed By: #### L 100.0500, L500.4050 #### [facility] [address] [place], [address] Sodium [Moles/Vol] 140 mmol/L Normal 133-145 [facility] Comment on above: Order Comment: 302.1 Performed By: #### L 100.0500, L500.4050 #### [facility] [address] [place], [address] T PROT 7.3 g/dL Normal 5.9-8.4 [facility] Comment on above: Order Comment: 302.1 Performed By: #### L 100.0500, L500.4050 #### [facility] [address] [place], [address] Urea nitrogen [Mass/Vol] 15 mg/dL Normal 4-19 [facility] Comment on above: Order Comment: 302.1 Performed By: #### L 100.0500, L500.4050 #### [facility] [address] [place], [place], [id number] Erythrocyte distribution wid th (RBC) [Ratio]Ordered By: Venkat Malin on 10-24-2024 Erythrocyte distribution width (RBC) [Entitic vol] 49.9 fL High 35.1-43.9 [facility] Erythrocyte distribution wid th ratioOrdered By: Venkat Malin on 10-24-2024 Erythrocyte distribution width (RBC) [Ratio] 15.2 % High 11.6-14.6 [facility] Erythrocyte distribution wid th standard deviationOrdered By: Venkat Malin on 10-24-2024 Erythrocyte distribution width (RBC) [Ratio] 49.9 fl High 35.1-43.9 [facility] GFR/1.73 sq M.predicted jose g non-blacks MDRD (S/P/Bld) [Vol rate/Area]Ordered By: Venkat Malin on 10-24-2024 Estimated GFR (MDRD) Non-Af Amer 107 >60 [facility] Comment on above: mL/min/1.73m2 CKD-EP I Creatinine Equation (2020) Glomerular filtration rate ( GFR) estimation/1.73 sq m using serum, plasma, or whole bOrdered By: Venkat Malin on 10-24-2024 GFR/1.73 sq M.predicted among non-blacks MDRD (S/P/Bld) [Vol rate/Area] 107 mL/min/{1.73_m2} >60 [facility] Comment on above: mL/min/1.73m2 CKD-EP I Creatinine Equation (2020) Hematocrit Auto (Bld) [Volum e fraction]Ordered By: Venkat Malin on 10-24-2024 Hematocrit (Bld) [Volume fraction] 41.1 % 37-47 [facility] Hemoglobin measurementOrdere d By: Venkat Malin on 10-24-2024 Hemoglobin (Bld) [Mass/Vol] 12.7 g/dL 12.0-15.0 [facility] - Chemistry and C hemistry - challengeOrdered By: Venkat Malin on 10-24-2024 AST [Catalytic activity/Vol] 22 U/L <32 [facility] MCV (mean corpuscular volume ) determinationOrdered By: Venkat Malin on 10-24-2024 MCV (RBC) [Entitic vol] 89.0 fL 81-99 [facility] Mean corpuscular hemoglobin (MCH) determinationOrdered By: Venkat Malin on 10-24-2024 MCH (RBC) [Entitic mass] 27.5 pg 27.0-32.0 [facility] Mean corpuscular hemoglobin concentration (MCHC) determinationOrdered By: Venkat Malin on 10-24-2024 MCHC (RBC) [Mass/Vol] 30.9 g/dL Low 32-[address] [facility] Mean platelet volume determi nationOrdered By: Venkat Malin on 10-24-2024 Platelet mean volume (Bld) [Entitic vol] 11.1 fL 6.2-12.0 [facility] Platelet countOrdered By: Dov Gonzalez on 10-24-2024 Platelets (Bld) [#/Vol] 348 10*3/uL 150-450 [facility] Potassium (Unsp spec) [Mass/ Vol]Ordered By: Venkat Malin on 10-24-2024 Potassium [Moles/Vol] 3.9 mmol/L 3.3-5.[address] [facility] Comment on above: Hemolysis present, R esults could be affected. Potassium measurement (mass/ volume)Ordered By: Venkat Malin on 10-24-2024 Potassium (Unsp spec) [Mass/Vol] 3.9 mmol/L 3.3-5.1 [facility] Comment on above: Hemolysis present, R esults could be affected. RBC Auto (Bld) [#/Vol]Ordere d By: Venkat Malin on 10-24-2024 RBC (Bld) [#/Vol] 4.62 10*6/uL 4.2-5.4 [facility] Serum creatinine measurement (mass/volume)Ordered By: Venkat Malin on 10-24-2024 Creatinine [Mass/Vol] 0.67 mg/dL Low 0.70-1.[address] [facility] Serum globulin measurementOr dered By: Venkat Mlain on 10-24-2024 Globulin (S) [Mass/Vol] 4.3 g/dL High 2.2-4.2 [facility] Serum glucose measurement (m ass/volume)Ordered By: Venkat Malin on 10-24-2024 Glucose [Mass/Vol] 90 mg/dL 70-99 [facility] Serum or plasma alanine gregorio otransferase (ALT) measurementOrdered By: Venkat Malin on 10-24-2024 ALT [Catalytic activity/Vol] 15 U/L <35 [facility] Serum or plasma albumin kavin urement (mass/volume)Ordered By: Venkat Malin on 10-24-2024 Albumin [Mass/Vol] 3.0 g/dL Low 3.5-5.0 [facility] Serum or plasma albumin/glob ulin mass ratioOrdered By: Venkat Malin on 10-24-2024 Albumin/Globulin [Mass ratio] 0.7 {ratio} Low 0.9-2.4 [facility] Serum or plasma alkaline raymond sphatase measurementOrdered By: Venkat Malin on 10-24-2024 ALP [Catalytic activity/Vol] 130 U/L High 35-104 [facility] Serum or plasma calcium kavin urement (mass/volume)Ordered By: Venkat Malin on 10-24-2024 Calcium [Mass/Vol] 8.7 mg/dL 7.6-11.0 [facility] Serum or plasma urea nitroge n measurement (mass/volume)Ordered By: Venkat Malin on 10-24-2024 Urea nitrogen [Mass/Vol] 15 mg/dL 4-19 [facility] Sodium levelOrdered By: Sai Malin on 10-24-2024 Sodium [Moles/Vol] 140 mmol/L 133-145 [facility] Total proteinOrdered By: Sarah Malin on 10-24-2024 Protein [Mass/Vol] 7.3 g/dL 5.9-8.4 [facility] White blood cell (WBC) count Ordered By: Venkat Malin on 10-24-2024 WBC (Bld) [#/Vol] 7.9 10*3/uL 4.4-11.0 [facility] Albumin to globulin ratioOrd ered By: Venkat Malin on 09-03-2024 Albumin/Globulin [Mass ratio] 0.5 {ratio} Low 0.9-2.4 [facility] Bilirubin, totalOrdered By: Venkat Malin on 09-03-2024 Bilirubin [Mass/Vol] 0.20 mg/dL 0.20-1.00 [facility] Comment on above: For patients on eltr ombopag therapy, use of Dimension [place] TBIL is not recommended. Blood urea nitrogen (BUN)/cr eatinine ratioOrdered By: Venkat Malin on 09-03-2024 Urea nitrogen/Creatinine [Mass ratio] 24.2 mg/mg High 10-20 [facility] CBC-Complete Blood Cnt No Di ffon 09-03-2024 Erythrocyte distribution width (RBC) [Ratio] 15.0 % High 11.6-14.6 [facility] Comment on above: Order Comment: 302-1 Performed By: #### L 500.4050, L100.0500 #### [facility] [address] [place], [address] Hematocrit (Bld) [Volume fraction] 37.9 % Normal 37-47 [facility] Comment on above: Order Comment: 302-1 Performed By: #### L 500.4050, L100.0500 #### [facility] [address] [place], [address] Hemoglobin (Bld) [Mass/Vol] 11.6 g/dL Low 12.0-15.0 [facility] Comment on above: Order Comment: 302-1 Performed By: #### L 500.4050, L100.0500 #### [facility] [address] [place], [address] MCH (RBC) [Entitic mass] 27.4 pg Normal 27.0-32.0 [facility] Comment on above: Order Comment: 302-1 Performed By: #### L 500.4050, L100.0500 #### [facility] [address] [place], [address] MCHC (RBC) [Mass/Vol] 30.6 g/dL Low 32-[address] [facility] Comment on above: Order Comment: 302-1 Performed By: #### L 500.4050, L100.0500 #### [facility] [address] [place], [address] MCV (RBC) [Entitic vol] 89.4 fL Normal 81-99 [facility] Comment on above: Order Comment: 302-1 Performed By: #### L 500.4050, L100.0500 #### [facility] [address] [place], [address] Platelet mean volume (Bld) [Entitic vol] 11.2 fL Normal 6.2-12.0 [facility] Comment on above: Order Comment: 302-1 Performed By: #### L 500.4050, L100.0500 #### [facility] [address] [place], [address] Platelets (Bld) [#/Vol] 344 10*3/uL Normal 150-450 [facility] Comment on above: Order Comment: 302-1 Performed By: #### L 500.4050, L100.0500 #### [facility] [address] [place], [address] RBC (Bld) [#/Vol] 4.24 10*6/uL Normal 4.2-5.4 [facility] Comment on above: Order Comment: 302-1 Performed By: #### L 500.4050, L100.0500 #### [facility] [address] [place], [address] RDW SD 49.1 fl High 35.1-43.9 [facility] Comment on above: Order Comment: 302-1 Performed By: #### L 500.4050, L100.0500 #### [facility] [address] [place], [address] WBC (Bld) [#/Vol] 7.0 10*3/uL Normal 4.4-11.0 [facility] Comment on above: Order Comment: 302-1 Performed By: #### L 500.4050, L100.0500 #### [facility] [address] [place], [address] Carbon dioxide measurementOr dered By: Venkat Malin on 09-03-2024 CO2 [Moles/Vol] 23.0 mmol/L 21.0-32.0 [facility] Chloride measurementOrdered By: Venkat Malin on 09-03-2024 Chloride [Moles/Vol] 109 mmol/L High 98-107 [facility] Metabolic Prof ilon 09-03-2024 Albumin [Mass/Vol] 2.3 g/dL Low 3.2-5.0 [facility] Comment on above: Order Comment: 302-1 Performed By: #### L 500.4050, L100.0500 #### [facility] [address] [place], [address] Albumin/Globulin [Mass ratio] 0.5 {ratio} Low 0.9-2.4 [facility] Comment on above: Order Comment: 302-1 Performed By: #### L 500.4050, L100.0500 #### [facility] [address] [place], [address] ALK P 116 U/L Normal 45-117 [facility] Comment on above: Order Comment: 302-1 Performed By: #### L 500.4050, L100.0500 #### [facility] [address] [place], [address] ALT [Catalytic activity/Vol] 15 U/L Normal 13-56 [facility] Comment on above: Order Comment: 302-1 Performed By: #### L 500.4050, L100.0500 #### [facility] [address] [place], [address] AST [Catalytic activity/Vol] 13 U/L Low 15-37 [facility] Comment on above: Order Comment: 302-1 Performed By: #### L 500.4050, L100.0500 #### [facility] [address] [place], [address] Bilirubin [Mass/Vol] 0.20 mg/dL Normal 0.20-1.00 [facility] Comment on above: Order Comment: 302-1 Result Comment: For patients on eltrombopag therapy, use of Dimension [place] TBIL is not recommended. Performed By: #### L 500.4050, L100.0500 #### [facility] [address] [place], [address] BUN/CRE 24.2 RATIO High 10-20 [facility] Comment on above: Order Comment: 302-1 Performed By: #### L 500.4050, L100.0500 #### [facility] [address] [place], [address] CA,Total 8.8 mg/dL Normal 8.5-10.1 [facility] Comment on above: Order Comment: 302-1 Performed By: #### L 500.4050, L100.0500 #### [facility] [address] [place], [address] Chloride [Moles/Vol] 109 mmol/L High 98-107 [facility] Comment on above: Order Comment: 302-1 Performed By: #### L 500.4050, L100.0500 #### [facility] [address] [place], [address] CO2 [Moles/Vol] 23.0 mmol/L Normal 21.0-32.0 [facility] Comment on above: Order Comment: 302-1 Performed By: #### L 500.4050, L100.0500 #### [facility] [address] [place], [address] Creatinine [Mass/Vol] 0.79 mg/dL Normal 0.55-1.[address] [facility] Comment on above: Order Comment: - Result Comment: The validity of the calculated GFR GFRAA in patients over 70 years has not been determined. Clinical correlation is essential. Performed By: #### L 500.4050, L100.0500 #### [facility] [address] [place], [address] EST GFR - AA 100 mL/min Normal >60 [facility] Comment on above: Order Comment: Result Comment: Afri can Nepalese GFR Calc Performed By: #### L 500.4050, L100.0500 #### [facility] [address] [place], [address] GAP 6 Normal 5-15 [facility] Comment on above: Order Comment: Performed By: #### L 500.4050, L100.0500 #### [facility] [address] [place], [address] GFR/1.73 sq M.predicted among non-blacks MDRD (S/P/Bld) [Vol rate/Area] 83 mL/min/{1.73_m2} Normal >60 [facility] Comment on above: Order Comment: Result Comment: Non- GFR Calc Performed By: #### L 500.4050, L100.0500 #### [facility] [address] [place], [address] Globulin (S) [Mass/Vol] 5.1 g/dL High 2.2-4.2 [facility] Comment on above: Order Comment: 302- Performed By: #### L 500.4050, L100.0500 #### [facility] [address] [place], [address] Glucose [Mass/Vol] 84 mg/dL Normal 74-106 [facility] Comment on above: Order Comment: 302-1 Performed By: #### L 500.4050, L100.0500 #### [facility] [address] [place], [address] Potassium [Moles/Vol] 3.7 mmol/L Normal 3.5-5.[address] [facility] Comment on above: Order Comment: 302-1 Performed By: #### L 500.4050, L100.0500 #### [facility] [address] [place], [address] Sodium [Moles/Vol] 138 mmol/L Normal 136-145 [facility] Comment on above: Order Comment: 302-1 Performed By: #### L 500.4050, L100.0500 #### [facility] [address] [place], [address] T PROT 7.4 g/dL Normal 6.4-8.2 [facility] Comment on above: Order Comment: 302-1 Performed By: #### L 500.4050, L100.0500 #### [facility] [address] [place], [address] Urea nitrogen [Mass/Vol] 19 mg/dL High 7-18 [facility] Comment on above: Order Comment: 302-1 Performed By: #### L 500.4050, L100.0500 #### [facility] [address] [place], [address] Erythrocyte distribution wid th ratioOrdered By: Venkat Malin on 09-03-2024 Erythrocyte distribution width (RBC) [Ratio] 15.0 % High 11.6-14.6 [facility] Erythrocyte distribution wid th standard deviationOrdered By: Venkat Malin on 09-03-2024 Erythrocyte distribution width (RBC) [Entitic vol] 49.1 fL High 35.1-43.9 [facility] Erythrocyte distribution width (RBC) [Ratio] 49.1 fl High 35.1-43.9 [facility] Estimated glomerular filtrat ion rate (GFR) AmericanOrdered By: Venkat Malin on 09-03-2024 Estimated GFR (MDRD) Amer 100 mL/min >60 [facility] Comment on above: GFR Calc Glomerular filtration rate ( GFR) estimationOrdered By: Venkat Malin on 09-03-2024 Estimated GFR (MDRD) Non-Af Amer 83 mL/min >60 [facility] Comment on above: Non- GFR Calc GFR/1.73 sq M.predicted among non-blacks MDRD (S/P/Bld) [Vol rate/Area] 83 mL/min/{1.73_m2} >60 [facility] Comment on above: Non- GFR Calc Glucose measurementOrdered B y: Venkat Malin on 09-03-2024 Glucose [Mass/Vol] 84 mg/dL 74-106 [facility] Hematocrit Auto (Bld) [Volum e fraction]Ordered By: Venkat Malin on 09-03-2024 Hematocrit (Bld) [Volume fraction] 37.9 % 37-47 [facility] Hemoglobin measurementOrdere d By: Venkat Malin on 09-03-2024 Hemoglobin (Bld) [Mass/Vol] 11.6 g/dL Low 12.0-15.0 [facility] - Chemistry and C hemistry - challengeOrdered By: Venkat Malin on 09-03-2024 AST [Catalytic activity/Vol] 13 U/L Low 15-37 [facility] MCV (mean corpuscular volume ) determinationOrdered By: Venkat Malin on 09-03-2024 MCV (RBC) [Entitic vol] 89.4 fL 81-99 [facility] Mean corpuscular hemoglobin (MCH) determinationOrdered By: Venkat Malin on 09-03-2024 MCH (RBC) [Entitic mass] 27.4 pg 27.0-32.0 [facility] Mean corpuscular hemoglobin concentration (MCHC) determinationOrdered By: Venkat Malin on 09-03-2024 MCHC (RBC) [Mass/Vol] 30.6 g/dL Low 32-[address] [facility] Mean platelet volume determi nationOrdered By: Venkat Mlain on 09-03-2024 Platelet mean volume (Bld) [Entitic vol] 11.2 fL 6.2-12.0 [facility] Platelet countOrdered By: Dov Gonzalez on 09-03-2024 Platelets (Bld) [#/Vol] 344 10*3/uL 150-450 [facility] Potassium measurementOrdered By: Venkat Malin on 09-03-2024 Potassium [Moles/Vol] 3.7 mmol/L 3.5-5.[address] [facility] RBC Auto (Bld) [#/Vol]Ordere d By: Venkat Malin on 09-03-2024 RBC (Bld) [#/Vol] 4.24 10*6/uL 4.2-5.4 [facility] Serum anion gap measurementO rdered By: Venkat Malin on 09-03-2024 Anion gap [Moles/Vol] 6 mmol/L 5-[address] [facility] Serum globulin measurementOr dered By: Venkat Malin on 09-03-2024 Globulin (S) [Mass/Vol] 5.1 g/dL High 2.2-4.2 [facility] Serum or plasma alanine gregorio otransferase (ALT) measurementOrdered By: Venkat Malin on 09-03-2024 ALT [Catalytic activity/Vol] 15 U/L 13-56 [facility] Serum or plasma albumin kavin urement (mass/volume)Ordered By: Venkat Malin on 09-03-2024 Albumin [Mass/Vol] 2.3 g/dL Low 3.2-5.0 [facility] Serum or plasma alkaline raymond sphatase measurementOrdered By: Venkat Malin on 09-03-2024 ALP [Catalytic activity/Vol] 116 U/L 45-117 [facility] Serum or plasma calcium kavin urement (mass/volume)Ordered By: Venkat Malin on 09-03-2024 Calcium [Mass/Vol] 8.8 mg/dL 8.5-10.1 [facility] Serum or plasma creatinine m easurement (mass/volume)Ordered By: Venkat Malin on 09-03-2024 Creatinine [Mass/Vol] 0.79 mg/dL 0.55-1.[address] [facility] Comment on above: The validity of the calculated GFR & GFRAA in patients over 70 years has not been determined. Clinical correlation is essential. Serum or plasma urea nitroge n measurement (mass/volume)Ordered By: Venkat Malin on 09-03-2024 Urea nitrogen [Mass/Vol] 19 mg/dL High 7-18 [facility] Sodium levelOrdered By: Sai Malin on 09-03-2024 Sodium [Moles/Vol] 138 mmol/L 136-145 [facility] Total proteinOrdered By: Sarah Malin on 09-03-2024 Protein [Mass/Vol] 7.4 g/dL 6.4-8.2 [facility] White blood cell (WBC) count Ordered By: Venkat Malin on 09-03-2024 WBC (Bld) [#/Vol] 7.0 10*3/uL 4.4-11.0 [facility] Albumin to globulin ratioOrd ered By: Venkat Malin on 07-25-2024 Albumin/Globulin [Mass ratio] 0.5 {ratio} Low 0.9-2.4 [facility] Bilirubin, totalOrdered By: Venkat Malin on 07-25-2024 Bilirubin [Mass/Vol] 0.20 mg/dL 0.20-1.00 [facility] Comment on above: For patients on eltr ombopag therapy, use of Dimension [place] TBIL is not recommended. Blood urea nitrogen (BUN)/cr eatinine ratioOrdered By: Venkat Malin on 07-25-2024 Urea nitrogen/Creatinine [Mass ratio] 22.3 mg/mg High 10 [facility] CBC-Complete Blood Cnt No Di ffon 07-25-2024 Erythrocyte distribution width (RBC) [Ratio] 14.9 % High 11.6-14.6 [facility] Comment on above: Order Comment: 302.1 Performed By: #### L 500.4050, L100.0500 #### [facility] [address] [place], [address] Hematocrit (Bld) [Volume fraction] 38.9 % Normal 37-47 [facility] Comment on above: Order Comment: 302.1 Performed By: #### L 500.4050, L100.0500 #### [facility] [address] [place], [address] Hemoglobin (Bld) [Mass/Vol] 11.9 g/dL Low 12.0-15.0 [facility] Comment on above: Order Comment: 302.1 Performed By: #### L 500.4050, L100.0500 #### [facility] [address] [place], [address] MCH (RBC) [Entitic mass] 27.2 pg Normal 27.0-32.0 [facility] Comment on above: Order Comment: 302.1 Performed By: #### L 500.4050, L100.0500 #### [facility] [address] [place], [address] MCHC (RBC) [Mass/Vol] 30.6 g/dL Low 32-[address] [facility] Comment on above: Order Comment: 302.1 Performed By: #### L 500.4050, L100.0500 #### [facility] [address] [place], [address] MCV (RBC) [Entitic vol] 89.0 fL Normal 81-99 [facility] Comment on above: Order Comment: 302.1 Performed By: #### L 500.4050, L100.0500 #### [facility] [address] [place], [address] Platelet mean volume (Bld) [Entitic vol] 10.7 fL Normal 6.2-12.0 [facility] Comment on above: Order Comment: 302.1 Performed By: #### L 500.4050, L100.0500 #### [facility] [address] [place], [address] Platelets (Bld) [#/Vol] 401 10*3/uL Normal 150-450 [facility] Comment on above: Order Comment: 302.1 Performed By: #### L 500.4050, L100.0500 #### [facility] [address] [place], [address] RBC (Bld) [#/Vol] 4.37 10*6/uL Normal 4.2-5.4 [facility] Comment on above: Order Comment: 302.1 Performed By: #### L 500.4050, L100.0500 #### [facility] [address] [place], [address] RDW SD 48.8 fl High 35.1-43.9 [facility] Comment on above: Order Comment: 302.1 Performed By: #### L [id number], L100.0500 #### [facility] [address] [place], [address] WBC (Bld) [#/Vol] 7.6 10*3/uL Normal 4.4-11.0 [facility] Comment on above: Order Comment: 302.1 Performed By: #### L 500.4050, L100.0500 #### [facility] [address] [place], [address] Carbon dioxide measurementOr dered By: Venkat Malin on 07-25-2024 CO2 [Moles/Vol] 26.0 mmol/L 21.0-32.0 [facility] Chloride measurementOrdered By: Venkat Malin on 07-25-2024 Chloride [Moles/Vol] 111 mmol/L High 98-107 [facility] Comprehensive Metabolic Prof ilon 07-25-2024 Albumin [Mass/Vol] 2.5 g/dL Low 3.2-5.0 [facility] Comment on above: Order Comment: 302.1 Performed By: #### L 500.4050, L100.0500 #### [facility] [address] [place], [address] Albumin/Globulin [Mass ratio] 0.5 {ratio} Low 0.9-2.4 [facility] Comment on above: Order Comment: 302.1 Performed By: #### L 500.4050, L100.0500 #### [facility] [address] [place], [address] ALK P 121 U/L High 45-117 [facility] Comment on above: Order Comment: 302.1 Performed By: #### L 500.4050, L100.0500 #### [facility] [address] [place], [address] ALT [Catalytic activity/Vol] 23 U/L Normal 13-56 [facility] Comment on above: Order Comment: 302.1 Performed By: #### L 500.4050, L100.0500 #### [facility] [address] [place], [address] AST [Catalytic activity/Vol] 21 U/L Normal 15-37 [facility] Comment on above: Order Comment: 302.1 Performed By: #### L 500.4050, L100.0500 #### [facility] [address] [place], [address] Bilirubin [Mass/Vol] 0.20 mg/dL Normal 0.20-1.00 [facility] Comment on above: Order Comment: 302.1 Result Comment: For patients on eltrombopag therapy, use of Dimension [place] TBIL is not recommended. Performed By: #### L 500.4050, L100.0500 #### [facility] [address] [place], [address] BUN/CRE 22.3 RATIO High 10-20 [facility] Comment on above: Order Comment: 302.1 Performed By: #### L 500.4050, L100.0500 #### [facility] [address] [place], [address] CA,Total 9.0 mg/dL Normal 8.5-10.1 [facility] Comment on above: Order Comment: 302.1 Performed By: #### L 500.4050, L100.0500 #### [facility] [address] [place], [address] Chloride [Moles/Vol] 111 mmol/L High 98-107 [facility] Comment on above: Order Comment: 302.1 Performed By: #### L 500.4050, L100.0500 #### [facility] [address] [place], [address] CO2 [Moles/Vol] 26.0 mmol/L Normal 21.0-32.0 [facility] Comment on above: Order Comment: 302.1 Performed By: #### L 500.4050, L100.0500 #### [facility] [address] [place], [address] Creatinine [Mass/Vol] 0.72 mg/dL Normal 0.55-1.[address] [facility] Comment on above: Order Comment: 302.1 Result Comment: The validity of the calculated GFR GFRAA in patients over 70 years has not been determined. Clinical correlation is essential. Performed By: #### L 500.4050, L100.0500 #### [facility] [address] [place], [address] EST GFR - AA 112 mL/min Normal >60 [facility] Comment on above: Order Comment: 302.1 Result Comment: Afri can Nepalese GFR Calc Performed By: #### L 500.4050, L100.0500 #### [facility] [address] [place], [address] GAP 3 Low 5-15 [facility] Comment on above: Order Comment: 302.1 Performed By: #### L 500.4050, L100.0500 #### [facility] [address] [place], [address] GFR/1.73 sq M.predicted among non-blacks MDRD (S/P/Bld) [Vol rate/Area] 92 mL/min/{1.73_m2} Normal >60 [facility] Comment on above: Order Comment: 302.1 Result Comment: Non- GFR Calc Performed By: #### L 500.4050, L100.0500 #### [facility] [address] [place], [address] Globulin (S) [Mass/Vol] 5.0 g/dL High 2.2-4.2 [facility] Comment on above: Order Comment: 302.1 Performed By: #### L 500.4050, L100.0500 #### [facility] [address] [place], [address] Glucose [Mass/Vol] 104 mg/dL Normal 74-106 [facility] Comment on above: Order Comment: 302.1 Result Comment: Fast ing Glucose result from 100 to 125 mg/dL suggests IMPAIRED HOMEOSTASIS per A.D.A. criteria. Performed By: #### L 500.4050, L100.0500 #### [facility] [address] [place], [address] Potassium [Moles/Vol] 3.8 mmol/L Normal 3.5-5.[address] [facility] Comment on above: Order Comment: 302.1 Performed By: #### L 500.4050, L100.0500 #### [facility] [address] [place], [address] Sodium [Moles/Vol] 140 mmol/L Normal 136-145 [facility] Comment on above: Order Comment: 302.1 Performed By: #### L 500.4050, L100.0500 #### [facility] [address] [place], [address] T PROT 7.5 g/dL Normal 6.4-8.2 [facility] Comment on above: Order Comment: 302.1 Performed By: #### L 500.4050, L100.0500 #### [facility] [address] [place], [place], [address] Urea nitrogen [Mass/Vol] 16 mg/dL Normal 7-18 [facility] Comment on above: Order Comment: 302.1 Performed By: #### L 500.4050, L100.0500 #### [facility] [address] [place], [address] Erythrocyte distribution wid th ratioOrdered By: Venkat Malin on 07-25-2024 Erythrocyte distribution width (RBC) [Ratio] 14.9 % High 11.6-14.6 [facility] Erythrocyte distribution wid th standard deviationOrdered By: Venkat Malin on 07-25-2024 Erythrocyte distribution width (RBC) [Entitic vol] 48.8 fL High 35.1-43.9 [facility] Estimated glomerular filtrat ion rate (GFR) AmericanOrdered By: Venkat Malin on 07-25-2024 Estimated GFR (MDRD) Amer 112 mL/min >60 [facility] Comment on above: GFR Calc Glomerular filtration rate ( GFR) estimationOrdered By: Venkat Malin on 07-25-2024 Estimated GFR (MDRD) Non-Af Amer 92 mL/min >60 [facility] Comment on above: Non- GFR Calc Glucose measurementOrdered B y: Venkat Malin on 07-25-2024 Glucose [Mass/Vol] 104 mg/dL 74-106 [facility] Comment on above: Fasting Glucose resu lt from 100 to 125 mg/dL suggests IMPAIRED HOMEOSTASIS per A.D.A. criteria. Hematocrit Auto (Bld) [Volum e fraction]Ordered By: Venkat Malin on 07-25-2024 Hematocrit (Bld) [Volume fraction] 38.9 % 37-47 [facility] Hemoglobin measurementOrdere d By: Venkat Malin on 07-25-2024 Hemoglobin (Bld) [Mass/Vol] 11.9 g/dL Low 12.0-15.0 [facility] - Chemistry and C hemistry - challengeOrdered By: Venkat Malin on 07-25-2024 AST [Catalytic activity/Vol] 21 U/L 15-37 [facility] MCV (mean corpuscular volume ) determinationOrdered By: Venkat Malin on 07-25-2024 MCV (RBC) [Entitic vol] 89.0 fL 81-99 [facility] Mean corpuscular hemoglobin (MCH) determinationOrdered By: Venkat Malin on 07-25-2024 MCH (RBC) [Entitic mass] 27.2 pg 27.0-32.0 [facility] Mean corpuscular hemoglobin concentration (MCHC) determinationOrdered By: Venkat Malin on 07-25-2024 MCHC (RBC) [Mass/Vol] 30.6 g/dL Low 32-[address] [facility] Mean platelet volume determi nationOrdered By: Venkat Malin on 07-25-2024 Platelet mean volume (Bld) [Entitic vol] 10.7 fL 6.2-12.0 [facility] Platelet countOrdered By: Dov Gonzalez on 07-25-2024 Platelets (Bld) [#/Vol] 401 10*3/uL 150-450 [facility] Potassium measurementOrdered By: Venkat Malin on 07-25-2024 Potassium [Moles/Vol] 3.8 mmol/L 3.5-5.[address] [facility] RBC Auto (Bld) [#/Vol]Ordere d By: Venkat Malin on 07-25-2024 RBC (Bld) [#/Vol] 4.37 10*6/uL 4.2-5.4 [facility] Serum anion gap measurementO rdered By: Venkat Malin on 07-25-2024 Anion gap [Moles/Vol] 3 mmol/L Low 5-[address] [facility] Serum globulin measurementOr dered By: Venkat Malin on 07-25-2024 Globulin (S) [Mass/Vol] 5.0 g/dL High 2.2-4.2 [facility] Serum or plasma alanine gregorio otransferase (ALT) measurementOrdered By: Venkat Malin on 07-25-2024 ALT [Catalytic activity/Vol] 23 U/L 13-56 [facility] Serum or plasma albumin kavin urement (mass/volume)Ordered By: Venkat Malin on 07-25-2024 Albumin [Mass/Vol] 2.5 g/dL Low 3.2-5.0 [facility] Serum or plasma alkaline raymond sphatase measurementOrdered By: Venkat Malin on 07-25-2024 ALP [Catalytic activity/Vol] 121 U/L High 45-117 [facility] Serum or plasma calcium kavin urement (mass/volume)Ordered By: Venkat Malin on 07-25-2024 Calcium [Mass/Vol] 9.0 mg/dL 8.5-10.1 [facility] Serum or plasma creatinine m easurement (mass/volume)Ordered By: Venkat Malin on 07-25-2024 Creatinine [Mass/Vol] 0.72 mg/dL 0.55-1.[address] [facility] Comment on above: The validity of the calculated GFR & GFRAA in patients over 70 years has not been determined. Clinical correlation is essential. Serum or plasma urea nitroge n measurement (mass/volume)Ordered By: Venkat Malin on 07-25-2024 Urea nitrogen [Mass/Vol] 16 mg/dL 7-18 [facility] Sodium levelOrdered By: Sai Malin on 07-25-2024 Sodium [Moles/Vol] 140 mmol/L 136-145 [facility] Total proteinOrdered By: Sarah Malin on 07-25-2024 Protein [Mass/Vol] 7.5 g/dL 6.4-8.2 [facility] White blood cell (WBC) count Ordered By: Venkat Malin on 07-25-2024 WBC (Bld) [#/Vol] 7.6 10*3/uL 4.4-11.0 [facility] Albumin to globulin ratioOrd ered By: Venkat Malin on 06-24-2024 Albumin/Globulin [Mass ratio] 0.6 {ratio} Low 0.9-2.4 [facility] Bilirubin, totalOrdered By: Venkat Malin on 06-24-2024 Bilirubin [Mass/Vol] mg/dL Low 0.20-1.00 [facility] Comment on above: For patients on eltr ombopag therapy, use of Dimension [place] TBIL is not recommended. Blood urea nitrogen (BUN)/cr eatinine ratioOrdered By: Venkat Malin on 06-24-2024 Urea nitrogen/Creatinine [Mass ratio] 27.9 mg/mg High 10-20 [facility] CBC-Complete Blood Cnt No Di ffon 06-24-2024 Erythrocyte distribution width (RBC) [Ratio] 15.0 % High 11.6-14.6 [facility] Comment on above: Order Comment: 302-1 Performed By: #### L 500.4050, L100.0500 #### [facility] [address] [place], [address] Hematocrit (Bld) [Volume fraction] 38.9 % Normal 37-47 [facility] Comment on above: Order Comment: 302-1 Performed By: #### L 500.4050, L100.0500 #### [facility] [address] [place], [address] Hemoglobin (Bld) [Mass/Vol] 11.7 g/dL Low 12.0-15.0 [facility] Comment on above: Order Comment: 302-1 Performed By: #### L 500.4050, L100.0500 #### [facility] [address] [place], [address] MCH (RBC) [Entitic mass] 27.1 pg Normal 27.0-32.0 [facility] Comment on above: Order Comment: 302-1 Performed By: #### L 500.4050, L100.0500 #### [facility] [address] [place], [address] MCHC (RBC) [Mass/Vol] 30.1 g/dL Low 32-[address] [facility] Comment on above: Order Comment: 302-1 Performed By: #### L 500.4050, L100.0500 #### [facility] [address] [place], [address] MCV (RBC) [Entitic vol] 90.0 fL Normal 81-99 [facility] Comment on above: Order Comment: 302-1 Performed By: #### L 500.4050, L100.0500 #### [facility] [address] [place], [address] Platelet mean volume (Bld) [Entitic vol] 11.4 fL Normal 6.2-12.0 [facility] Comment on above: Order Comment: 302-1 Performed By: #### L 500.4050, L100.0500 #### [facility] [address] [place], [address] Platelets (Bld) [#/Vol] 306 10*3/uL Normal 150-450 [facility] Comment on above: Order Comment: 302-1 Performed By: #### L 500.4050, L100.0500 #### [facility] [address] [place], [address] RBC (Bld) [#/Vol] 4.32 10*6/uL Normal 4.2-5.4 [facility] Comment on above: Order Comment: 302-1 Performed By: #### L 500.4050, L100.0500 #### [facility] [address] [place], [address] RDW SD 50.2 fl High 35.1-43.9 [facility] Comment on above: Order Comment: 302-1 Performed By: #### L 500.4050, L100.0500 #### [facility] [address] [place], [address] WBC (Bld) [#/Vol] 7.3 10*3/uL Normal 4.4-11.0 [facility] Comment on above: Order Comment: 302-1 Performed By: #### L 500.4050, L100.0500 #### [facility] [address] [place], [address] Carbon dioxide measurementOr dered By: Venkat Malin on 06-24-2024 CO2 [Moles/Vol] 25.0 mmol/L 21.0-32.0 [facility] Chloride measurementOrdered By: Venkat Malin on 06-24-2024 Chloride [Moles/Vol] 113 mmol/L High 98-107 [facility] Comprehensive Metabolic Prof ilon 06-24-2024 Albumin [Mass/Vol] 2.7 g/dL Low 3.2-5.0 [facility] Comment on above: Order Comment: 302-1 Performed By: #### L 500.4050, L100.0500 #### [facility] [address] [place], [address] Albumin/Globulin [Mass ratio] 0.6 {ratio} Low 0.9-2.4 [facility] Comment on above: Order Comment: 302-1 Performed By: #### L 500.4050, L100.0500 #### [facility] [address] [place], [address] ALK P 115 U/L Normal 45-117 [facility] Comment on above: Order Comment: 302-1 Performed By: #### L 500.4050, L100.0500 #### [facility] [address] [place], [address] ALT [Catalytic activity/Vol] 13 U/L Normal 13-56 [facility] Comment on above: Order Comment: 302-1 Performed By: #### L 500.4050, L100.0500 #### [facility] [address] [place], [address] AST [Catalytic activity/Vol] 14 U/L Low 15-37 [facility] Comment on above: Order Comment: 302-1 Performed By: #### L 500.4050, L100.0500 #### [facility] [address] [place], [address] BUN/CRE 27.9 RATIO High 10-20 [facility] Comment on above: Order Comment: 302-1 Performed By: #### L 500.4050, L100.0500 #### [facility] [address] [place], [address] CA,Total 8.8 mg/dL Normal 8.5-10.1 [facility] Comment on above: Order Comment: 302-1 Performed By: #### L 500.4050, L100.0500 #### [facility] [address] [place], [address] Chloride [Moles/Vol] 113 mmol/L High 98-107 [facility] Comment on above: Order Comment: 302-1 Performed By: #### L 500.4050, L100.0500 #### [facility] [address] [place], [address] CO2 [Moles/Vol] 25.0 mmol/L Normal 21.0-32.0 [facility] Comment on above: Order Comment: 302-1 Performed By: #### L 500.4050, L100.0500 #### [facility] [address] [place], [address] Creatinine [Mass/Vol] 0.72 mg/dL Normal 0.55-1.[address] [facility] Comment on above: Order Comment: 302-1 Result Comment: The validity of the calculated GFR GFRAA in patients over 70 years has not been determined. Clinical correlation is essential. Performed By: #### L 500.4050, L100.0500 #### [facility] [address] [place], [address] EST GFR - AA 111 mL/min Normal >60 [facility] Comment on above: Order Comment: 302-1 Result Comment: Afri can Nepalese GFR Calc Performed By: #### L 500.4050, L100.0500 #### [facility] [address] [place], [address] GAP 4 Low 5-15 [facility] Comment on above: Order Comment: 302-1 Performed By: #### L 500.4050, L100.0500 #### [facility] [address] [place], [address] GFR/1.73 sq M.predicted among non-blacks MDRD (S/P/Bld) [Vol rate/Area] 92 mL/min/{1.73_m2} Normal >60 [facility] Comment on above: Order Comment: 302-1 Result Comment: Non- GFR Calc Performed By: #### L 500.4050, L100.0500 #### [facility] [address] [place], [address] Globulin (S) [Mass/Vol] 4.8 g/dL High 2.2-4.2 [facility] Comment on above: Order Comment: 302-1 Performed By: #### L 500.4050, L100.0500 #### [facility] [address] [place], [address] Glucose [Mass/Vol] 87 mg/dL Normal 74-106 [facility] Comment on above: Order Comment: 302-1 Performed By: #### L 500.4050, L100.0500 #### [facility] [address] [place], [address] Potassium [Moles/Vol] 3.5 mmol/L Normal 3.5-5.[address] [facility] Comment on above: Order Comment: 302-1 Performed By: #### L 500.4050, L100.0500 #### [facility] [address] [place], [address] Sodium [Moles/Vol] 142 mmol/L Normal 136-145 [facility] Comment on above: Order Comment: 302-1 Performed By: #### L 500.4050, L100.0500 #### [facility] [address] [place], [address] T BILI < 0.10 Low 0.20-1.00 [facility] Comment on above: Order Comment: 302- Result Comment: For patients on eltrombopag therapy, use of Dimension [place] TBIL is not recommended. Performed By: #### L 500.4050, L100.0500 #### [facility] [address] [place], [address] T PROT 7.5 g/dL Normal 6.4-8.2 [facility] Comment on above: Order Comment: 302-1 Performed By: #### L 500.4050, L100.0500 #### [facility] [address] [place], [address] Urea nitrogen [Mass/Vol] 20 mg/dL High 7-18 [facility] Comment on above: Order Comment: 302- Performed By: #### L 500.4050, L100.0500 #### [facility] [address] [place], [address] Erythrocyte distribution wid th ratioOrdered By: Venkat Malin on 06-24-2024 Erythrocyte distribution width (RBC) [Ratio] 15.0 % High 11.6-14.6 [facility] Erythrocyte distribution wid th standard deviationOrdered By: Venkat Malin on 06-24-2024 Erythrocyte distribution width (RBC) [Entitic vol] 50.2 fL High 35.1-43.9 [facility] Estimated glomerular filtrat ion rate (GFR) AmericanOrdered By: Venkat Malin on 06-24-2024 Estimated GFR (MDRD) Amer 111 mL/min >60 [facility] Comment on above: GFR Calc Glomerular filtration rate ( GFR) estimationOrdered By: Venkat Malin on 06-24-2024 Estimated GFR (MDRD) Non-Af Amer 92 mL/min >60 [facility] Comment on above: Non- GFR Calc Glucose measurementOrdered B y: Venkat Malin on 06-24-2024 Glucose [Mass/Vol] 87 mg/dL 74-106 [facility] Hematocrit Auto (Bld) [Volum e fraction]Ordered By: Venkat Malin on 06-24-2024 Hematocrit (Bld) [Volume fraction] 38.9 % 37-47 [facility] Hemoglobin measurementOrdere d By: Venkat Malin on 06-24-2024 Hemoglobin (Bld) [Mass/Vol] 11.7 g/dL Low 12.0-15.0 [facility] - Chemistry and C hemistry - challengeOrdered By: Venkat Malin on 06-24-2024 AST [Catalytic activity/Vol] 14 U/L Low 15-37 [facility] MCV (mean corpuscular volume ) determinationOrdered By: Venkat Malin on 06-24-2024 MCV (RBC) [Entitic vol] 90.0 fL 81-99 [facility] Mean corpuscular hemoglobin (MCH) determinationOrdered By: Venkat Malin on 06-24-2024 MCH (RBC) [Entitic mass] 27.1 pg 27.0-32.0 [facility] Mean corpuscular hemoglobin concentration (MCHC) determinationOrdered By: Venkat Malin on 06-24-2024 MCHC (RBC) [Mass/Vol] 30.1 g/dL Low 32-[address] [facility] Mean platelet volume determi nationOrdered By: Venkat Malin on 06-24-2024 Platelet mean volume (Bld) [Entitic vol] 11.4 fL 6.2-12.0 [facility] Platelet countOrdered By: Dov Gonzalez on 06-24-2024 Platelets (Bld) [#/Vol] 306 10*3/uL 150-450 [facility] Potassium measurementOrdered By: Venkat Malin on 06-24-2024 Potassium [Moles/Vol] 3.5 mmol/L 3.5-5.[address] [facility] RBC Auto (Bld) [#/Vol]Ordere d By: Venkat Malin on 06-24-2024 RBC (Bld) [#/Vol] 4.32 10*6/uL 4.2-5.4 [facility] Serum anion gap measurementO rdered By: Venkat Malin on 06-24-2024 Anion gap [Moles/Vol] 4 mmol/L Low 5-[address] [facility] Serum globulin measurementOr dered By: Venkat Malin on 06-24-2024 Globulin (S) [Mass/Vol] 4.8 g/dL High 2.2-4.2 [facility] Serum or plasma alanine gregorio otransferase (ALT) measurementOrdered By: Venkat Malin on 06-24-2024 ALT [Catalytic activity/Vol] 13 U/L 13-56 [facility] Serum or plasma albumin kavin urement (mass/volume)Ordered By: Venkat Malin on 06-24-2024 Albumin [Mass/Vol] 2.7 g/dL Low 3.2-5.0 [facility] Serum or plasma alkaline raymond sphatase measurementOrdered By: Venkat Malin on 06-24-2024 ALP [Catalytic activity/Vol] 115 U/L 45-117 [facility] Serum or plasma calcium kavin urement (mass/volume)Ordered By: Venkat Malin on 06-24-2024 Calcium [Mass/Vol] 8.8 mg/dL 8.5-10.1 [facility] Serum or plasma creatinine m easurement (mass/volume)Ordered By: Venkat Malin on 06-24-2024 Creatinine [Mass/Vol] 0.72 mg/dL 0.55-1.[address] [facility] Comment on above: The validity of the calculated GFR & GFRAA in patients over 70 years has not been determined. Clinical correlation is essential. Serum or plasma urea nitroge n measurement (mass/volume)Ordered By: Venkat Malin on 06-24-2024 Urea nitrogen [Mass/Vol] 20 mg/dL High 7-18 [facility] Sodium levelOrdered By: Sai Malin on 06-24-2024 Sodium [Moles/Vol] 142 mmol/L 136-145 [facility] Total proteinOrdered By: Sarah Malin on 06-24-2024 Protein [Mass/Vol] 7.5 g/dL 6.4-8.2 [facility] White blood cell (WBC) count Ordered By: Venkat Malin on 06-24-2024 WBC (Bld) [#/Vol] 7.3 10*3/uL 4.4-11.0 [facility] Basophil percentageOrdered B y: Venkat Malin on 10-29-2023 Basophil percentage 10-25 SEEN /hpf 0-5 [facility] Bilirubin Test strip Ql (U)O rdered By: Venkat Malin on 10-29-2023 Bilirubin Ql (U) Negative Negative [facility] Culture, urineOrdered By: Dov Gonzalez on 10-29-2023 Bacteria identified Cx Nom (U) Escherichia coli [facility] Ketones Test strip Ql (U)Ord ered By: Venkat Malin on 10-29-2023 Ketones Ql (U) 5 mg/dl Negative [facility] Mucus LM Ql (Urine sed)Order ed By: Venkat Malin on 10-29-2023 Mucus Ql (Urine sed) 0 SEEN /hpf [facility] Nitrite Test strip Ql (U)Ord ered By: Venkat Malin on 10-29-2023 Nitrite Ql (U) Positive Negative [facility] No Panel InformationOrdered By: Venkat Malin on 10-29-2023 Urine RBC 25-50 SEEN /hpf 0-5 [facility] Protein Test strip Ql (U)Ord ered By: Venkat Malin on 10-29-2023 Protein Ql (U) 30 mg/dl Negative [facility] Squamous epithelial cells de tection in urine sediment by light microscopyOrdered By: Venkat Malin on 10-29-2023 Epithelial cells.squamous LM Ql (Urine sed) 0-5 SEEN /hpf 5-10 [facility] Urine blood detectionOrdered By: Venkat Malin on 10-29-2023 RBC Ql (U) 250 /ul Negative [facility] Urine clarityOrdered By: aSrah Malin on 10-29-2023 Clarity (U) Sl. Cloudy Clear [facility] Urine color determinationOrd ered By: Venkat Malin on 10-29-2023 Color (U) Yellow Yellow [facility] Urine glucose detectionOrder ed By: Venkat Malin on 10-29-2023 Glucose Ql (U) Normal mg/dl Normal [facility] Urine leukocyte esterase det ection by dipstickOrdered By: Venkat Malin on 10-29-2023 Leukocyte esterase Test strip Ql (U) 100 /ul Negative [facility] Urine pHOrdered By: Venkat glynn on 10-29-2023 pH (U) 6.0 [pH] 5.0 - 8.0 [facility] Urine sediment bacteria coun t by microscopy (number/high power field)Ordered By: Venkat Malin on 10-29-2023 Bacteria LM.HPF (Urine sed) [#/Area] 3 /[HPF] None Seen [facility] Urine specific gravity measu rementOrdered By: Venkat Malin on 10-29-2023 Specific gravity (U) [Rel density] 1.020 1.002-1.03 0 [facility] Urine urobilinogen measureme ntOrdered By: Venkat Malin on 10-29-2023 Urobilinogen Ql (U) 1 mg/dl Normal [facility] Basophil percentageOrdered B y: Venkat Malin on 10-18-2023 Chloride [Moles/Vol] 111 mmol/L 98-107 [facility] Glucose [Mass/Vol] 92 mg/dL 74-106 [facility] Hemoglobin (Bld) [Mass/Vol] 13.3 g/dL 12.0-15.0 [facility] Potassium [Moles/Vol] 3.6 mmol/L 3.5-5.[address] [facility] Comment on above: Slight Hemolysis, Re sult may be falsely increased. Sodium [Moles/Vol] 139 mmol/L 136-145 [facility] WBC (Bld) [#/Vol] 8.0 10*3/uL 4.4-11.0 [facility] Determination of erythrocyte mean corpuscular volume (MCV)Ordered By: Venkat Malin on 10-18-2023 MCV (RBC) [Entitic vol] 87.1 fL 81-99 [facility] Erythrocyte distribution wid th ratioOrdered By: Venkat Malin on 10-18-2023 Erythrocyte distribution width (RBC) [Ratio] 14.9 % 11.6-14.6 [facility] Erythrocyte distribution wid th standard deviationOrdered By: Venkat Malin on 10-18-2023 Erythrocyte distribution width (RBC) [Entitic vol] 48.1 fL 35.1-43.9 [facility] Hematocrit Auto (Bld) [Volum e fraction]Ordered By: Venkat Malin on 10-18-2023 Hematocrit (Bld) [Volume fraction] 41.3 % 37-47 [facility] Laboratory - Chemistry and C hemistry - challengeOrdered By: Venkat Malin on 10-18-2023 CO2 [Moles/Vol] 23.0 mmol/L 21.0-32.0 [facility] Urea nitrogen/Creatinine [Mass ratio] 24.5 mg/mg 10-20 [facility] Laboratory - Hematology and Cell countsOrdered By: Venkat Malin on 10-18-2023 MCH (RBC) [Entitic mass] 28.1 pg 27.0-32.0 [facility] MCHC (RBC) [Mass/Vol] 32.2 g/dL 32-[address] [facility] Platelet mean volume (Bld) [Entitic vol] 12.1 fL 6.2-12.0 [facility] Platelets (Bld) [#/Vol] 224 10*3/uL 150-450 [facility] No Panel InformationOrdered By: Venkat Malin on 10-18-2023 Estimated GFR (MDRD) Amer 124 mL/min >60 [facility] Comment on above: GFR Calc Estimated GFR (MDRD) Non-Af Amer 103 mL/min >60 [facility] Comment on above: Non- GFR Calc RBC Auto (Bld) [#/Vol]Ordere d By: Venkat Malin on 10-18-2023 RBC (Bld) [#/Vol] 4.74 10*6/uL 4.2-5.4 [facility] Serum or plasma calcium kavin urement (mass/volume)Ordered By: Venkat Malin on 10-18-2023 Calcium [Mass/Vol] 9.1 mg/dL 8.5-10.1 [facility] Serum or plasma creatinine m easurement (mass/volume)Ordered By: Venkat Malin on 10-18-2023 Creatinine [Mass/Vol] 0.65 mg/dL 0.55-1.[address] [facility] Comment on above: The validity of the calculated GFR & GFRAA in patients over 70 years has not been determined. Clinical correlation is essential. Serum or plasma urea nitroge n measurement (mass/volume)Ordered By: Venkat Malin on 10-18-2023 Urea nitrogen [Mass/Vol] 16 mg/dL 7-18 [facility] Thin prep Papanicolaou smear with manual screeningOrdered By: Venkat Malin on 10-18-2023 Thin prep Papanicolaou smear with manual screening 5 5-15 [facility] Basophil percentageOrdered B y: Venkat Malin on 10-09-2023 Chloride [Moles/Vol] 108 mmol/L 98-107 [facility] Glucose [Mass/Vol] 77 mg/dL 74-106 [facility] Potassium [Moles/Vol] 3.7 mmol/L 3.5-5.[address] [facility] Sodium [Moles/Vol] 139 mmol/L 136-145 [facility] Laboratory - Chemistry and C hemistry - challengeOrdered By: Venkat Malin on 10-09-2023 CO2 [Moles/Vol] 24.0 mmol/L 21.0-32.0 [facility] Urea nitrogen/Creatinine [Mass ratio] 25.7 mg/mg 10- [facility] No Panel InformationOrdered By: Venkat Malin on 10-09-2023 Estimated GFR (MDRD) Amer 108 mL/min >60 [facility] Comment on above: GFR Calc Estimated GFR (MDRD) Non-Af Amer 89 mL/min >60 [facility] Comment on above: Non- GFR Calc Serum or plasma calcium kavin urement (mass/volume)Ordered By: Venkat Malni on 10-09-2023 Calcium [Mass/Vol] 9.1 mg/dL 8.5-10.1 [facility] Serum or plasma creatinine m easurement (mass/volume)Ordered By: Venkat Malin on 10-09-2023 Creatinine [Mass/Vol] 0.74 mg/dL 0.55-1.[address] [facility] Comment on above: The validity of the calculated GFR & GFRAA in patients over 70 years has not been determined. Clinical correlation is essential. Serum or plasma urea nitroge n measurement (mass/volume)Ordered By: Venkat Malin on 10-09-2023 Urea nitrogen [Mass/Vol] 19 mg/dL - [facility] Thin prep Papanicolaou smear with manual screeningOrdered By: Venkat Malin on 10-09-2023 Thin prep Papanicolaou smear with manual screening 7 5-15 [facility] Basophil percentageOrdered B y: Venkat Malin on 09-28-2023 Chloride [Moles/Vol] 110 mmol/L 98-107 [facility] Glucose [Mass/Vol] 90 mg/dL 74-106 [facility] Potassium [Moles/Vol] 3.6 mmol/L 3.5-5.[address] [facility] Sodium [Moles/Vol] 140 mmol/L 136-145 [facility] Laboratory - Chemistry and C hemistry - challengeOrdered By: Venkat Malin on 09-28-2023 CO2 [Moles/Vol] 25.0 mmol/L 21.0-32.0 [facility] Urea nitrogen/Creatinine [Mass ratio] 21.7 mg/mg 10-20 [facility] No Panel InformationOrdered By: Venkat Malin on 09-28-2023 Estimated GFR (MDRD) Amer 95 mL/min >60 [facility] Comment on above: GFR Calc Estimated GFR (MDRD) Non-Af Amer 78 mL/min >60 [facility] Comment on above: Non- GFR Calc Serum or plasma calcium kavin urement (mass/volume)Ordered By: Venkat Malin on 09-28-2023 Calcium [Mass/Vol] 9.5 mg/dL 8.5-10.1 [facility] Serum or plasma creatinine m easurement (mass/volume)Ordered By: Venkat Malin on 09-28-2023 Creatinine [Mass/Vol] 0.83 mg/dL 0.55-1.[address] [facility] Comment on above: The validity of the calculated GFR & GFRAA in patients over 70 years has not been determined. Clinical correlation is essential. Serum or plasma urea nitroge n measurement (mass/volume)Ordered By: Venkat Malin on 09-28-2023 Urea nitrogen [Mass/Vol] 18 mg/dL 7-18 [facility] Thin prep Papanicolaou smear with manual screeningOrdered By: Venkat Malin on 09-28-2023 Thin prep Papanicolaou smear with manual screening 5 5-15 [facility] Basophil percentageOrdered B y: Venkat Malin on 09-20-2023 Bilirubin [Mass/Vol] 0.40 mg/dL 0.20-1.00 [facility] Comment on above: For patients on eltr ombopag therapy, use of Dimension [place] TBIL is not recommended. Chloride [Moles/Vol] 111 mmol/L 98-107 [facility] Glucose [Mass/Vol] 105 mg/dL 74-106 [facility] Comment on above: Fasting Glucose resu lt from 100 to 125 mg/dL suggests IMPAIRED HOMEOSTASIS per A.D.A. criteria. Hemoglobin (Bld) [Mass/Vol] 14.0 g/dL 12.0-15.0 [facility] Potassium [Moles/Vol] 3.4 mmol/L 3.5-5.[address] [facility] Comment on above: Slight Hemolysis, Re sult may be falsely increased. Protein [Mass/Vol] 7.7 g/dL 6.4-8.2 [facility] Sodium [Moles/Vol] 140 mmol/L 136-145 [facility] WBC (Bld) [#/Vol] 7.2 10*3/uL 4.4-11.0 [facility] Determination of erythrocyte mean corpuscular volume (MCV)Ordered By: Venkat Malin on 09-20-2023 MCV (RBC) [Entitic vol] 88.0 fL 81-99 [facility] Erythrocyte distribution wid th ratioOrdered By: Venkat Malin on 09-20-2023 Erythrocyte distribution width (RBC) [Ratio] 14.5 % 11.6-14.6 [facility] Erythrocyte distribution wid th standard deviationOrdered By: Venkat Malin on 09-20-2023 Erythrocyte distribution width (RBC) [Entitic vol] 46.5 fL 35.1-43.9 [facility] Hematocrit Auto (Bld) [Volum e fraction]Ordered By: Venkat Malin on 09-20-2023 Hematocrit (Bld) [Volume fraction] 44.2 % 37-47 [facility] Laboratory - Chemistry and C hemistry - challengeOrdered By: Venkat Malin on 09-20-2023 Albumin/Globulin [Mass ratio] 0.5 {ratio} 0.9-2.4 [facility] ALP [Catalytic activity/Vol] 117 U/L 45-117 [facility] ALT [Catalytic activity/Vol] 14 U/L 13-56 [facility] CO2 [Moles/Vol] 23.0 mmol/L 21.0-32.0 [facility] Globulin (S) [Mass/Vol] 5.1 g/dL 2.2-4.2 [facility] Urea nitrogen/Creatinine [Mass ratio] 17.5 mg/mg 10-20 [facility] Laboratory - Hematology and Cell countsOrdered By: Venkat Malin on 09-20-2023 MCH (RBC) [Entitic mass] 27.9 pg 27.0-32.0 [facility] MCHC (RBC) [Mass/Vol] 31.7 g/dL 32-[address] [facility] Platelet mean volume (Bld) [Entitic vol] 11.6 fL 6.2-12.0 [facility] Platelets (Bld) [#/Vol] 276 10*3/uL 150-450 [facility] No Panel InformationOrdered By: Venkat Malin on 09-20-2023 Estimated GFR (MDRD) Amer 91 mL/min >60 [facility] Comment on above: GFR Calc Estimated GFR (MDRD) Non-Af Amer 75 mL/min >60 [facility] Comment on above: Non- GFR Calc RBC Auto (Bld) [#/Vol]Ordere d By: Venkat Malin on 09-20-2023 RBC (Bld) [#/Vol] 5.02 10*6/uL 4.2-5.4 [facility] Serum or plasma calcium kavin urement (mass/volume)Ordered By: Venkat Malin on 09-20-2023 Calcium [Mass/Vol] 9.3 mg/dL 8.5-10.1 [facility] Serum or plasma creatinine m easurement (mass/volume)Ordered By: Venkat Malin on 09-20-2023 Creatinine [Mass/Vol] 0.86 mg/dL 0.55-1.[address] [facility] Comment on above: The validity of the calculated GFR & GFRAA in patients over 70 years has not been determined. Clinical correlation is essential. Serum or plasma urea nitroge n measurement (mass/volume)Ordered By: Venkat Malin on 09-20-2023 Urea nitrogen [Mass/Vol] 15 mg/dL 7-18 [facility] Thin prep Papanicolaou smear with manual screeningOrdered By: Venkat Malin on 09-20-2023 Thin prep Papanicolaou smear with manual screening 2.6 g/dL 3.2-5.0 [facility] Thin prep Papanicolaou smear with manual screening 11 U/L 15-37 [facility] Comment on above: Slight Hemolysis, Re sult may be falsely increased. Thin prep Papanicolaou smear with manual screening 6 5-15 [facility] Basophil percentageOrdered B y: Venkat Malin on 09-19-2023 Bilirubin [Mass/Vol] 0.30 mg/dL 0.20-1.00 [facility] Comment on above: For patients on eltr ombopag therapy, use of Dimension [place] TBIL is not recommended. Chloride [Moles/Vol] 111 mmol/L 98-107 [facility] Glucose [Mass/Vol] 97 mg/dL 74-106 [facility] Hemoglobin (Bld) [Mass/Vol] 13.6 g/dL 12.0-15.0 [facility] Potassium [Moles/Vol] 3.9 mmol/L 3.5-5.[address] [facility] Protein [Mass/Vol] 7.9 g/dL 6.4-8.2 [facility] Sodium [Moles/Vol] 139 mmol/L 136-145 [facility] WBC (Bld) [#/Vol] 7.7 10*3/uL 4.4-11.0 [facility] Determination of erythrocyte mean corpuscular volume (MCV)Ordered By: Venkat Malin on 09-19-2023 MCV (RBC) [Entitic vol] 90.0 fL 81-99 [facility] Erythrocyte distribution wid th ratioOrdered By: Venkat Malin on 09-19-2023 Erythrocyte distribution width (RBC) [Ratio] 14.5 % 11.6-14.6 [facility] Erythrocyte distribution wid th standard deviationOrdered By: Venkat Malin on 09-19-2023 Erythrocyte distribution width (RBC) [Entitic vol] 48.0 fL 35.1-43.9 [facility] Hematocrit Auto (Bld) [Volum e fraction]Ordered By: Venkat Malin on 09-19-2023 Hematocrit (Bld) [Volume fraction] 44.8 % 37-47 [facility] Laboratory - Chemistry and C hemistry - challengeOrdered By: Venkat Malin on 09-19-2023 Albumin/Globulin [Mass ratio] 0.5 {ratio} 0.9-2.4 [facility] ALP [Catalytic activity/Vol] 122 U/L 45-117 [facility] ALT [Catalytic activity/Vol] 12 U/L 13-56 [facility] CO2 [Moles/Vol] 23.0 mmol/L 21.0-32.0 [facility] Globulin (S) [Mass/Vol] 5.1 g/dL 2.2-4.2 [facility] Urea nitrogen/Creatinine [Mass ratio] 20.3 mg/mg 10-20 [facility] Laboratory - Hematology and Cell countsOrdered By: Venkat Malin on 09-19-2023 MCH (RBC) [Entitic mass] 27.3 pg 27.0-32.0 [facility] MCHC (RBC) [Mass/Vol] 30.4 g/dL 32-[address] [facility] Platelet mean volume (Bld) [Entitic vol] 11.4 fL 6.2-12.0 [facility] Platelets (Bld) [#/Vol] 331 10*3/uL 150-450 [facility] No Panel InformationOrdered By: Venkat Malin on 09-19-2023 Estimated GFR (MDRD) Amer 100 mL/min >60 [facility] Comment on above: GFR Calc Estimated GFR (MDRD) Non-Af Amer 83 mL/min >60 [facility] Comment on above: Non- GFR Calc RBC Auto (Bld) [#/Vol]Ordere d By: Venkat Malin on 09-19-2023 RBC (Bld) [#/Vol] 4.98 10*6/uL 4.2-5.4 [facility] Serum or plasma calcium kavin urement (mass/volume)Ordered By: Venkat Malin on 09-19-2023 Calcium [Mass/Vol] 9.3 mg/dL 8.5-10.1 [facility] Serum or plasma creatinine m easurement (mass/volume)Ordered By: Venkat Malin on 09-19-2023 Creatinine [Mass/Vol] 0.79 mg/dL 0.55-1.[address] [facility] Comment on above: The validity of the calculated GFR & GFRAA in patients over 70 years has not been determined. Clinical correlation is essential. Serum or plasma oxcarbazepin e measurement (mass/volume)Ordered By: Venkat Malin on 09-19-2023 OXcarbazepine [Mass/Vol] 17 ug/mL 10-35 [facility] Comment on above: This test was develo ped and its performance characteristicsdetermined by [employer]. It has not been cleared orapproved by the Food and Drug Administration. Detection Limit = 1Performed at: [facility]) [place] [id number] Director: Martha Estrada MD, Phone: [phone] Serum or plasma urea nitroge n measurement (mass/volume)Ordered By: Venkat Malin on 09-19-2023 Urea nitrogen [Mass/Vol] 16 mg/dL 7-18 [facility] Thin prep Papanicolaou smear with manual screeningOrdered By: Venkat Malin on 09-19-2023 Thin prep Papanicolaou smear with manual screening 2.8 g/dL 3.2-5.0 [facility] Thin prep Papanicolaou smear with manual screening 12 U/L 15-37 [facility] Thin prep Papanicolaou smear with manual screening 5 5-15 [facility] Absolute lymphocyte countOrd ered By: Venkat Malin on 08-31-2023 Lymphocytes Auto (Unsp spec) [#/Vol] 2.12 10*3/uL 0.83-4.51 [facility] Automated lymphocyte count a s percentage of total leukocytesOrdered By: Venkat Malin on 08-31-2023 Lymphocytes/100 WBC Auto (Unsp spec) 39.0 % 19-41 [facility] Basophil percentageOrdered B y: Venkat Malin on 08-31-2023 Basophils/100 WBC (Bld) 0.9 % 0-1 [facility] Bilirubin [Mass/Vol] 0.30 mg/dL 0.20-1.00 [facility] Comment on above: For patients on eltr ombopag therapy, use of Dimension [place] TBIL is not recommended. Chloride [Moles/Vol] 108 mmol/L 98-107 [facility] Eosinophils/100 WBC (Bld) 2.6 % 0-5 [facility] Glucose [Mass/Vol] 84 mg/dL 74-106 [facility] Hemoglobin (Bld) [Mass/Vol] 13.3 g/dL 12.0-15.0 [facility] Monocytes/100 WBC (Bld) 8.7 % 0-10 [facility] Neutrophils (Bld) [#/Vol] 2.6 10*3/uL 2.0-7.7 [facility] Neutrophils/100 WBC (Bld) 48.4 % 47-70 [facility] Potassium [Moles/Vol] 3.4 mmol/L 3.5-5.[address] [facility] Protein [Mass/Vol] 7.3 g/dL 6.4-8.2 [facility] Sodium [Moles/Vol] 135 mmol/L 136-145 [facility] WBC (Bld) [#/Vol] 5.4 10*3/uL 4.4-11.0 [facility] Determination of erythrocyte mean corpuscular volume (MCV)Ordered By: Venkat Malin on 08-31-2023 MCV (RBC) [Entitic vol] 90.7 fL 81-99 [facility] Erythrocyte distribution wid th ratioOrdered By: Venkat Malin on 08-31-2023 Erythrocyte distribution width (RBC) [Ratio] 14.4 % 11.6-14.6 [facility] Erythrocyte distribution wid th standard deviationOrdered By: Venkat Malin on 08-31-2023 Erythrocyte distribution width (RBC) [Entitic vol] 47.8 fL 35.1-43.9 [facility] Hematocrit Auto (Bld) [Volum e fraction]Ordered By: Venkat Malin on 08-31-2023 Hematocrit (Bld) [Volume fraction] 44.1 % 37-47 [facility] Immature granulocytes/100 WB C Auto (Bld)Ordered By: Venkat Malin on 08-31-2023 Immature granulocytes/100 WBC (Bld) 0.400 % 0.0-0.9 [facility] Comment on above: IG% - Immature Granu locytes (promyelocytes, myelocytes and metamyelocytes) > 1% indicates that a LEFT SHIFT is Present. Laboratory - Chemistry and C hemistry - challengeOrdered By: Venkat Malin on 08-31-2023 Albumin/Globulin [Mass ratio] 0.6 {ratio} 0.9-2.4 [facility] ALP [Catalytic activity/Vol] 103 U/L 45-117 [facility] ALT [Catalytic activity/Vol] 14 U/L 13-56 [facility] CO2 [Moles/Vol] 25.0 mmol/L 21.0-32.0 [facility] Globulin (S) [Mass/Vol] 4.6 g/dL 2.2-4.2 [facility] Urea nitrogen/Creatinine [Mass ratio] 21.6 mg/mg 10-20 [facility] Laboratory - Hematology and Cell countsOrdered By: Venkat Malin on 08-31-2023 MCH (RBC) [Entitic mass] 27.4 pg 27.0-32.0 [facility] MCHC (RBC) [Mass/Vol] 30.2 g/dL 32-[address] [facility] Nucleated RBC/100 WBC (Bld) [Ratio] 0 % 0-5 [facility] Platelets (Bld) [#/Vol] 297 10*3/uL 150-450 [facility] No Panel InformationOrdered By: Venkat Malin on 08-31-2023 Carbamazepine (Tegretol) Level 0.7 ug/mL 4.0-12.0 [facility] Estimated GFR (MDRD) Amer 116 mL/min >60 [facility] Comment on above: GFR Calc Estimated GFR (MDRD) Non-Af Amer 96 mL/min >60 [facility] Comment on above: Non- GFR Calc Platelet mean volume [place] ker (Bld) [Entitic vol]Ordered By: Venkat Malin on 08-31-2023 Platelet mean volume (Bld) [Entitic vol] 11.7 fL 6.2-12.0 [facility] RBC Auto (Bld) [#/Vol]Ordere d By: Venkat Malin on 08-31-2023 RBC (Bld) [#/Vol] 4.86 10*6/uL 4.2-5.4 [facility] Serum or plasma calcium kavin urement (mass/volume)Ordered By: Venkat Malin on 08-31-2023 Calcium [Mass/Vol] 8.7 mg/dL 8.5-10.1 [facility] Serum or plasma creatinine m easurement (mass/volume)Ordered By: Venkat Malin on 08-31-2023 Creatinine [Mass/Vol] 0.69 mg/dL 0.55-1.[address] [facility] Comment on above: The validity of the calculated GFR & GFRAA in patients over 70 years has not been determined. Clinical correlation is essential. Serum or plasma urea nitroge n measurement (mass/volume)Ordered By: Venkat Malin on 08-31-2023 Urea nitrogen [Mass/Vol] 15 mg/dL 7-18 [facility] Thin prep Papanicolaou smear with manual screeningOrdered By: Venkat Malin on 08-31-2023 Thin prep Papanicolaou smear with manual screening 2.7 g/dL 3.2-5.0 [facility] Thin prep Papanicolaou smear with manual screening 10 U/L 15-37 [facility] Thin prep Papanicolaou smear with manual screening 2 5-15 [facility] Basophil percentageOrdered B y: Venkat Malin on 07-19-2023 Bilirubin [Mass/Vol] 0.30 mg/dL 0.20-1.00 [facility] Comment on above: For patients on eltr ombopag therapy, use of Dimension [place] TBIL is not recommended. Chloride [Moles/Vol] 110 mmol/L 98-107 [facility] Glucose [Mass/Vol] 85 mg/dL 74-106 [facility] Potassium [Moles/Vol] 3.7 mmol/L 3.5-5.[address] [facility] Protein [Mass/Vol] 8.0 g/dL 6.4-8.2 [facility] Sodium [Moles/Vol] 140 mmol/L 136-145 [facility] WBC (Bld) [#/Vol] 5.4 10*3/uL 4.4-11.0 [facility] Blood erythrocytes count (nu mber/volume)Ordered By: Venkat Malin on 07-19-2023 RBC (Bld) [#/Vol] 5.15 10*6/uL 4.2-5.4 [facility] Blood hemoglobin measurement (mass/volume)Ordered By: Venkat Malin on 07-19-2023 Hemoglobin (Bld) [Mass/Vol] 14.5 g/dL 12.0-15.0 [facility] Blood platelet mean volumeOr dered By: Venkat Malin on 07-19-2023 Platelet mean volume (Bld) [Entitic vol] 11.1 fL 6.2-12.0 [facility] Determination of erythrocyte mean corpuscular volume (MCV)Ordered By: Venkat Malin on 07-19-2023 MCV (RBC) [Entitic vol] 90.3 fL 81-99 [facility] Hematocrit Auto (Bld) [Volum e fraction]Ordered By: Venkat Malin on 07-19-2023 Hematocrit (Bld) [Volume fraction] 46.5 % 37-47 [facility] Laboratory - Chemistry and C hemistry - challengeOrdered By: Venkat Malin on 07-19-2023 ALP [Catalytic activity/Vol] 170 U/L 45-117 [facility] ALT [Catalytic activity/Vol] 33 U/L 13-56 [facility] CO2 [Moles/Vol] 27.0 mmol/L 21.0-32.0 [facility] Globulin (S) [Mass/Vol] 4.8 g/dL 2.2-4.2 [facility] Urea nitrogen/Creatinine [Mass ratio] 19.5 mg/mg 10-20 [facility] Laboratory - Hematology and Cell countsOrdered By: Venkat Malin on 07-19-2023 Erythrocyte distribution width (RBC) [Entitic vol] 50.0 fL 35.1-43.9 [facility] Erythrocyte distribution width (RBC) [Ratio] 14.9 % 11.6-14.6 [facility] MCH (RBC) [Entitic mass] 28.2 pg 27.0-32.0 [facility] MCHC Auto (RBC) [Mass/Vol]Or dered By: Venkat Malin on 07-19-2023 MCHC (RBC) [Mass/Vol] 31.2 g/dL 32-[address] [facility] No Panel InformationOrdered By: Venkat Malin on 07-19-2023 Estimated GFR (MDRD) Amer 89 mL/min >60 [facility] Comment on above: GFR Calc Estimated GFR (MDRD) Non-Af Amer 74 mL/min >60 [facility] Comment on above: Non- GFR Calc Platelets bldOrdered By: Pet er Dea on 07-19-2023 Platelets (Bld) [#/Vol] 341 10*3/uL 150-450 [facility] Serum or plasma albumin kavin urement (mass/volume)Ordered By: Venkat Malin on 07-19-2023 Albumin [Mass/Vol] 3.2 g/dL 3.2-5.0 [facility] Serum or plasma albumin/glob ulin mass ratioOrdered By: Venkat Malin on 07-19-2023 Albumin/Globulin [Mass ratio] 0.7 {ratio} 0.9-2.4 [facility] Serum or plasma calcium kavin urement (mass/volume)Ordered By: Venkat Malin on 07-19-2023 Calcium [Mass/Vol] 9.1 mg/dL 8.5-10.1 [facility] Serum or plasma creatinine m easurement (mass/volume)Ordered By: Venkat Malin on 07-19-2023 Creatinine [Mass/Vol] 0.87 mg/dL 0.55-1.[address] [facility] Comment on above: The validity of the calculated GFR & GFRAA in patients over 70 years has not been determined. Clinical correlation is essential. Serum or plasma urea nitroge n measurement (mass/volume)Ordered By: Venkat Malin on 07-19-2023 Urea nitrogen [Mass/Vol] 17 mg/dL 7-18 [facility] Thin prep Papanicolaou smear with manual screeningOrdered By: Venkat Malin on 07-19-2023 Thin prep Papanicolaou smear with manual screening 15 U/L 15-37 [facility] Thin prep Papanicolaou smear with manual screening 3 5-[address] [facility] [address] Abdomen WO contraston 1. Left UPJ calculus and multiple left renal calculi. Moderate left hydronephrosis. 2. Moderate to large amount of stool in the colon. Consider constipation. 3. Left pleural effusion. Report Dictated on Electronically Signed By: Dakotah Alan MD Electronically Signed Date/Time: 07/11/2023 12:46 PM EST [facility] [employer] [facility] 1975 [id number] Exam Date/Time: 07/11/2023 11:09 Procedure: CT ABDOMEN [...] Osseous structures: Dextrocurvature of the visualized spine. [facility] Dakotah Alan MD - 07/11/2023 Patient Name: DIANA CALABRESE : 1975 [facility]#: [id number] Exam Date/Time: 07/11/2023 11:09 Procedure: CT ABDOMEN [...] Electronically Signed Date/Time: 07/11/2023 12:46 PM EST [facility] Study observation (narrative) [facility] Abdomen WO contrastOrdere d By: Dakotah Alan on 07-11-2023 [facility] Work Phone: Bacteria identified Cx Nom ( Bld)Ordered By: Fide Lobato on 07-10-2023 Interpretation and review of laboratory results Abnormal [facility] Blood Collection Sit e: Left Hand [facility] Bacteria identified Cx Nom ( Bld)on 07-10-2023 Interpretation and review of laboratory results Abnormal [facility] Blood Collection Sit e: Right Arm [facility] Bacteria identified Cx Nom ( U)Ordered By: Duong Hall on 07-10-2023 Interpretation and review of laboratory results Abnormal [facility] Basic metabolic 1998 panelon 07-10-2023 Anion gap [Moles/Vol] 7 mmol/L 3 - 13 mmol/L [facility] Calcium [Mass/Vol] 8.2 mg/dL Low 8.4 - 10. 4 mg/dL [facility] Chloride [Moles/Vol] 109 mmol/L High 98 - 10 7 mmol/L [facility] CO2 [Moles/Vol] 21 mmol/L Low 22 - 30 mmol/L [facility] Creatinine [Mass/Vol] 0.69 mg/dL 0.52 - 1.04 mg/dL [facility] GFR/1.73 sq M.predicted MDRD (S/P/Bld) [Vol rate/Area] - PINF [facility] Comment on above: Calculation based on the Chronic Kidney Disease Epidemiology Collaboration (CKD-EPI) equation refit without adjustment for race Glucose [Mass/Vol] 89 mg/dL 70 - 100 mg/dL [facility] Interpretation and review of laboratory results Abnormal [facility] Potassium [Moles/Vol] 3.8 mmol/L 3.5 - 5.1 mmol/L [facility] Sodium [Moles/Vol] 137 mmol/L 135 - 145 mmol/L [facility] Urea nitrogen [Mass/Vol] 9 mg/dL 7 - 17 mg/dL [facility] CBC panel Auto (Bld)Ordered By: Dariel Hollins on 07-10-2023 Erythrocyte distribution width (RBC) [Ratio] 15.1 % High 11.5 - 14.5 % [facility] Hematocrit (Bld) [Volume fraction] 32.7 % Low 35.0 - 47.0 % [facility] Hemoglobin (Bld) [Mass/Vol] 10.8 g/dL Low 11.7 - 16.0 g/dL [facility] Interpretation and review of laboratory results Abnormal [facility] MCH (RBC) [Entitic mass] 28.4 pg 26.0 - 34.0 pg [facility] MCHC (RBC) [Mass/Vol] 33.1 % 32.0 - 36.0 % [facility] MCV (RBC) [Entitic vol] 85.8 fL 80.0 - 98.0 fL [facility] Platelet mean volume (Bld) [Entitic vol] 8.6 fL 7.4 - 12.4 fL [facility] Platelets (Bld) [#/Vol] 291 10*3/uL 140 - 440 10*3/uL [facility] RBC (Bld) [#/Vol] 3.82 10*6/uL 3.8 - 5.20 10*6/uL [facility] WBC (Bld) [#/Vol] 6.5 10*3/uL 3.6 - 10.7 10*3/uL [facility] Laboratory - Drug toxicology on 07-10-2023 Vancomycin [Mass/Vol] 19.4 ug/mL 15.0 - 20.0 ug/mL [facility] Laboratory - Microbiology an d Antimicrobial susceptibilityOrdered By: Fide Lobato on 07-10-2023 Bacteria identified Cx Nom (Bld) Staphylococcus warneri Critically abnormal [facility] Comment on above: Contamination likely unless additional blood culture sets are found to be positive with the same organism. This is an edited result. Previous organism was Gram-positive cocci on 07/08/2023 at 1347 EST. Laboratory - Microbiology an d Antimicrobial susceptibilityon 07-10-2023 Bacteria identified Cx Nom (Bld) Staphylococcus capitis Critically abnormal [facility] Comment on above: Contamination likely unless additional blood culture sets are found to be positive with the same organism. This is an edited result. Previous organism was Gram-positive cocci on 07/09/2023 at 0049 EST. Laboratory - Microbiology an d Antimicrobial susceptibilityOrdered By: Duong Hall on 07-10-2023 Bacteria identified Cx Nom (U) Normal urogenital alin present [facility] Bacteria identified Cx Nom (U) 50,000-90,000 CFU/mL Escherichia coli Abnormal [facility] No Panel Informationon 07-10 Interpretation and review of laboratory results Normal [facility] Basic metabolic 1998 panelon 07-09-2023 Anion gap [Moles/Vol] 10 mmol/L 3 - 13 mmol/L [facility] Calcium [Mass/Vol] 8.3 mg/dL Low 8.4 - 10. 4 mg/dL [facility] Chloride [Moles/Vol] 111 mmol/L High 98 - 10 7 mmol/L [facility] CO2 [Moles/Vol] 20 mmol/L Low 22 - 30 mmol/L [facility] Creatinine [Mass/Vol] 0.68 mg/dL 0.52 - 1.04 mg/dL [facility] GFR/1.73 sq M.predicted MDRD (S/P/Bld) [Vol rate/Area] - PINF [facility] Comment on above: Calculation based on the Chronic Kidney Disease Epidemiology Collaboration (CKD-EPI) equation refit without adjustment for race Glucose [Mass/Vol] 86 mg/dL 70 - 100 mg/dL [facility] Interpretation and review of laboratory results Abnormal [facility] Potassium [Moles/Vol] 3.4 mmol/L Low 3.5 - 5.1 mmol/L [facility] Sodium [Moles/Vol] 141 mmol/L 135 - 145 mmol/L [facility] Urea nitrogen [Mass/Vol] 9 mg/dL 7 - 17 mg/dL [facility] CBC panel Auto (Bld)Ordered By: Amanda Cedillo on 07-09-2023 Erythrocyte distribution width (RBC) [Ratio] 14.8 % High 11.5 - 14.5 % [facility] Hematocrit (Bld) [Volume fraction] 31.1 % Low 35.0 - 47.0 % [facility] Hemoglobin (Bld) [Mass/Vol] 10.3 g/dL Low 11.7 - 16.0 g/dL [facility] Interpretation and review of laboratory results Abnormal [facility] MCH (RBC) [Entitic mass] 28.7 pg 26.0 - 34.0 pg [facility] MCHC (RBC) [Mass/Vol] 33.2 % 32.0 - 36.0 % [facility] MCV (RBC) [Entitic vol] 86.3 fL 80.0 - 98.0 fL [facility] Platelet mean volume (Bld) [Entitic vol] 8.4 fL 7.4 - 12.4 fL [facility] Platelets (Bld) [#/Vol] 261 10*3/uL 140 - 440 10*3/uL [facility] RBC (Bld) [#/Vol] 3.61 10*6/uL Low 3.8 - 5.20 10*6/uL [facility] WBC (Bld) [#/Vol] 6.5 10*3/uL 3.6 - 10.7 10*3/uL [facility] No Panel Informationon 07-08 Coagulase-negative Staphylococcus Detected Abnormal Not Detected [facility] Interpretation and review of laboratory results Abnormal [facility] Methodology: Multipl ex PCR The [employer] BCID panel can detect the following organisms: [...] IMP, KPC, NDM, OXA-48-like, VIM, and mcr-1. [facility] CBC panel Auto (Bld)Ordered By: Sarahi Haas on 07-07-2023 Erythrocyte distribution width (RBC) [Ratio] 15.0 % High 11.5 - 14.5 % [facility] Hematocrit (Bld) [Volume fraction] 37.3 % 35.0 - 47.0 % [facility] Hemoglobin (Bld) [Mass/Vol] 12.3 g/dL 11.7 - 16.0 g/dL [facility] Interpretation and review of laboratory results Abnormal [facility] MCH (RBC) [Entitic mass] 28.2 pg 26.0 - 34.0 pg [facility] MCHC (RBC) [Mass/Vol] 33.0 % 32.0 - 36.0 % [facility] MCV (RBC) [Entitic vol] 85.4 fL 80.0 - 98.0 fL [facility] Platelet mean volume (Bld) [Entitic vol] 8.3 fL 7.4 - 12.4 fL [facility] Platelets (Bld) [#/Vol] 331 10*3/uL 140 - 440 10*3/uL [facility] RBC (Bld) [#/Vol] 4.37 10*6/uL 3.8 - 5.20 10*6/uL [facility] WBC (Bld) [#/Vol] 6.5 10*3/uL 3.6 - 10.7 10*3/uL [facility] CT Head WO contraston 2022 No significant inter stacey change since May 2022. Fairly extensive bilateral frontal-parietal encephalomalacia Report Dictated on Electronically Signed By: Denilson Gage MD Electronically Signed Date/Time: 07/07/2023 6:28 PM [facility] Patient Name[facility] DIANA PUGH [facility] 1975 [id number] Exam Date/Time: 07/07/2023 18:16 Procedure: CT HEAD [...] of the clivus and with C1 (anteriorly). [facility] Denilson Gage MD - 07/07/2023 [...] Electronically Signed Date/Time: 07/07/2023 6:28 PM EST [facility] Head WO contrastOrdered B y: Denilson Gage on 07-07-2023 [facility] Work Phone: Comprehensive metabolic 1998 panelon 07-07-2023 Albumin [Mass/Vol] 3.4 g/dL Low 3.5 - 5.0 g/dL [facility] ALP [Catalytic activity/Vol] 91 U/L 38 - 126 U/L [facility] ALT [Catalytic activity/Vol] 15 U/L 0 - 34 U/L [facility] Anion gap [Moles/Vol] 10 mmol/L 3 - 13 mmol/L [facility] AST [Catalytic activity/Vol] 26 U/L 15 - 46 U/L [facility] Bilirubin [Mass/Vol] 0.4 mg/dL 0.2 - 1 .3 mg/dL [facility] Calcium [Mass/Vol] 8.8 mg/dL 8.4 - 10. 4 mg/dL [facility] Chloride [Moles/Vol] 105 mmol/L 98 - 10 7 mmol/L [facility] CO2 [Moles/Vol] 23 mmol/L 22 - 30 mmol/L [facility] Creatinine [Mass/Vol] 0.76 mg/dL 0.52 - 1.04 mg/dL [facility] GFR/1.73 sq M.predicted MDRD (S/P/Bld) [Vol rate/Area] - PINF [facility] Comment on above: Calculation based on the Chronic Kidney Disease Epidemiology Collaboration (CKD-EPI) equation refit without adjustment for race Glucose [Mass/Vol] 110 mg/dL High 70 - 100 mg/dL [facility] Interpretation and review of laboratory results Abnormal [facility] Potassium [Moles/Vol] 4.3 mmol/L 3.5 - 5.1 mmol/L [facility] Protein [Mass/Vol] 8.0 g/dL 6.3 - 8.2 g/dL [facility] Sodium [Moles/Vol] 137 mmol/L 135 - 145 mmol/L [facility] Urea nitrogen [Mass/Vol] 20 mg/dL High 7 - 17 mg/dL [facility] Slight hemolysis [facility] Laboratory - Chemistry and C hemistry - challengeon 07-07-2023 Lactate [Moles/Vol] 0.7 mmol/L 0.7 - 2. 0 mmol/L [facility] Troponin I.cardiac [Mass/Vol] ng/mL NINF - 0.034 ng/mL [facility] Glucose [Mass/Vol] 106 mg/dL High 70 - 100 mg/dL [facility] No Panel Informationon 07-07 Interpretation and review of laboratory results Normal [facility] P [place] 40 degrees [facility] OK Interval 151 ms [facility] QRS [place] 39 degrees [facility] QRSD Interval 92 ms [facility] QT Interval 384 ms [facility] QTC Interval 423 ms [facility] T Wave [place] 24 degrees [facility] Sinus rhythm Compared to ECG 11/03/2016 11:45:08 T-wave abnormality no longer present Electronically Signed On 07-07-2023 17:12:08 EST by Dakotah Dejesus CV Dakotah Schuster MD - 07/07/2023 IMPRESSION: Sinus rhythm Compared to ECG 11/03/2016 11:45:08 T-wave abnormality no longer present Electronically Signed On 07-07-2023 17:12:08 EST by Dakotah Dejesus [facility] Interpretation and review of laboratory results Abnormal [facility] [address] [place] [address] CLIA ID: [id number] [facility] Radiology Study observation (narrative) [facility] Troponin I.cardiac [Mass/Vol ]on 07-07-2023 Interpretation and review of laboratory results Normal [facility] Patients with high l evels of Biotin oral intake (ie >5 mg/day) may have falsely decreased Troponin levels. [facility] Urinalysis complete panel (U )Ordered By: Gabriella Bonilla on 07-07-2023 Bacteria LM.HPF (Urine sed) [#/Area] Loaded Abnormal Negative /HPF [facility] Bilirubin Ql (U) Negative Negative mg/dL [facility] Clarity (U) Turbid Abnormal Clear [facility] Color (U) Yellow Lt. Yellow [facility] Epithelial cells.squamous LM.HPF (Urine sed) [#/Area] 3-5 [facility] Glucose Ql (U) Normal Normal (<70) mg/dL [facility] Hemoglobin Ql (U) Negative Negative mg/dL [facility] Interpretation and review of laboratory results Abnormal [facility] Ketones (U) [Mass/Vol] Negative Negat golden mg/dL [facility] Leukocyte esterase Test strip Ql (U) Negative Negative Robert/uL [facility] Mucus LM.HPF (Urine sed) [#/Area] Few Negative /LPF [facility] Nitrite Ql (U) Positive Abnormal Negative [facility] Non-Squamous Epithalial Cells, Urine 0-2 Abnormal Negative /HPF [facility] pH (U) 6.0 [pH] 5.0 - 8.0 pH [facility] Protein (U) [Mass/Vol] 10 mg/dL Abnormal Negative [facility] RBC LM.HPF (Urine sed) [#/Area] 0-2 [facility] Specific gravity (U) [Rel density] 1.019 1.005 - 1.030 [facility] Urobilinogen (U) [Mass/Vol] Normal Normal (0-1) mg/dL [facility] WBC LM.HPF (Urine sed) [#/Area] 3-5 [facility] Vital signson 07-07-2023 Heart rate 73 /min bpm [facility] XR Chest Single viewon 07-07 Low lung volumes. No evidence of an acute abnormality. Report Dictated on Electronically Signed By: Jaspal Schwartz MD Electronically Signed Date/Time: 07/07/2023 3:56 PM EST [facility] Patient Name: DIANA PUGH : 1975 [...] spine and shoulders. No acute osseous findings. [facility] Jaspal Schwartz M D - 07/07/2023 Patient [...] Electronically Signed Date/Time: 07/07/2023 3:56 PM EST [facility] XR Chest Single viewOrdered By: Jaspal Schwartz on 07-07-2023 [facility] Work Phone: Basophil percentageOrdered B y: Venkat Malin on 06-20-2023 Bilirubin [Mass/Vol] 0.20 mg/dL 0.20-1.00 [facility] Comment on above: For patients on eltr ombopag therapy, use of Dimension [place] TBIL is not recommended. Chloride [Moles/Vol] 110 mmol/L 98-107 [facility] Glucose [Mass/Vol] 97 mg/dL 74-106 [facility] Potassium [Moles/Vol] 3.9 mmol/L 3.5-5.[address] [facility] Protein [Mass/Vol] 7.8 g/dL 6.4-8.2 [facility] Sodium [Moles/Vol] 140 mmol/L 136-145 [facility] WBC (Bld) [#/Vol] 6.2 10*3/uL 4.4-11.0 [facility] Blood erythrocytes count (nu mber/volume)Ordered By: Venkat Malin on 06-20-2023 RBC (Bld) [#/Vol] 4.63 10*6/uL 4.2-5.4 [facility] Blood hemoglobin measurement (mass/volume)Ordered By: Venkat Malin on 06-20-2023 Hemoglobin (Bld) [Mass/Vol] 12.9 g/dL 12.0-15.0 [facility] Blood platelet mean volumeOr dered By: Venkat Malin on 06-20-2023 Platelet mean volume (Bld) [Entitic vol] 11.0 fL 6.2-12.0 [facility] Determination of erythrocyte mean corpuscular volume (MCV)Ordered By: Venkat Malin on 06-20-2023 MCV (RBC) [Entitic vol] 90.3 fL 81-99 [facility] Hematocrit Auto (Bld) [Volum e fraction]Ordered By: Venkat Malin on 06-20-2023 Hematocrit (Bld) [Volume fraction] 41.8 % 37-47 [facility] Laboratory - Chemistry and C hemistry - challengeOrdered By: Venkat Malin on 06-20-2023 ALP [Catalytic activity/Vol] 119 U/L 45-117 [facility] ALT [Catalytic activity/Vol] 15 U/L 13-56 [facility] CO2 [Moles/Vol] 28.0 mmol/L 21.0-32.0 [facility] Globulin (S) [Mass/Vol] 5.2 g/dL 2.2-4.2 [facility] Urea nitrogen/Creatinine [Mass ratio] 19.4 mg/mg 10-20 [facility] Laboratory - Hematology and Cell countsOrdered By: Venkat Malin on 06-20-2023 Erythrocyte distribution width (RBC) [Entitic vol] 49.9 fL 35.1-43.9 [facility] Erythrocyte distribution width (RBC) [Ratio] 15.1 % 11.6-14.6 [facility] MCH (RBC) [Entitic mass] 27.9 pg 27.0-32.0 [facility] MCHC Auto (RBC) [Mass/Vol]Or dered By: Venkat Malin on 06-20-2023 MCHC (RBC) [Mass/Vol] 30.9 g/dL 32-[address] [facility] No Panel InformationOrdered By: Venkat Malin on 06-20-2023 Estimated GFR (MDRD) Amer 95 mL/min >60 [facility] Comment on above: GFR Calc Estimated GFR (MDRD) Non-Af Amer 79 mL/min >60 [facility] Comment on above: Non- GFR Calc Platelets bldOrdered By: Sarah Malin on 06-20-2023 Platelets (Bld) [#/Vol] 321 10*3/uL 150-450 [facility] Serum or plasma albumin kavin urement (mass/volume)Ordered By: Venkat Malin on 06-20-2023 Albumin [Mass/Vol] 2.6 g/dL 3.2-5.0 [facility] Serum or plasma albumin/glob ulin mass ratioOrdered By: Venkat Malin on 06-20-2023 Albumin/Globulin [Mass ratio] 0.5 {ratio} 0.9-2.4 [facility] Serum or plasma calcium kavin urement (mass/volume)Ordered By: Venkat Malin on 06-20-2023 Calcium [Mass/Vol] 9.0 mg/dL 8.5-10.1 [facility] Serum or plasma creatinine m easurement (mass/volume)Ordered By: Venkat Malin on 06-20-2023 Creatinine [Mass/Vol] 0.83 mg/dL 0.55-1.[address] [facility] Comment on above: The validity of the calculated GFR & GFRAA in patients over 70 years has not been determined. Clinical correlation is essential. Serum or plasma urea nitroge n measurement (mass/volume)Ordered By: Venkat Malin on 06-20-2023 Urea nitrogen [Mass/Vol] 16 mg/dL 7-18 [facility] Thin prep Papanicolaou smear with manual screeningOrdered By: Venkat Malin on 06-20-2023 Thin prep Papanicolaou smear with manual screening 12 U/L 15-37 [facility] Thin prep Papanicolaou smear with manual screening 2 5-15 [facility] US Breast - left limitedon 1 08-08-2022 Skin lesion likely representing a sebaceous cyst or epidermal cyst. ASSESSMENT: Category 2 Benign RECOMMENDATION: Clinical correlation Left Report Dictated on Electronically Signed By: Kylah Perez MD Electronically Signed Date/Time: 06/08/2023 3:24 PM [facility] 1975 [id number] Exam Date/Time: 06/08/2023 15:01 Procedure: BI US [...] cyst. The underlying breast parenchyma is normal. [facility] Kylah Perez MD - 06/08/2023 Patient Name: [facility]IA[facility]ABRESE [facility] 1975 [id number] Exam Date/Time: 06/08/2023 15:01 Procedure: BI US [...] Electronically Signed Date/Time: 06/08/2023 3:24 PM EST [facility] Radiology Study observation (narrative) [facility] US Breast - left limitedOrde red By: Kylah Perez on 06-08-2023 [facility] [place] Work Phone: No Panel InformationOrdered By: Venkat Malin on 04-26-2023 Carbamazepine (Tegretol) Level < 0.5 ug/mL 4.0-12.0 [facility] Basophil percentageOrdered B y: Venkat Malin on 02-28-2023 Bilirubin [Mass/Vol] 0.40 mg/dL 0.20-1.00 [facility] Comment on above: For patients on eltr ombopag therapy, use of Dimension [place] TBIL is not recommended. Chloride [Moles/Vol] 111 mmol/L 98-107 [facility] Glucose [Mass/Vol] 88 mg/dL 74-106 [facility] Potassium [Moles/Vol] 3.6 mmol/L 3.5-5.[address] [facility] Protein [Mass/Vol] 7.9 g/dL 6.4-8.2 [facility] Sodium [Moles/Vol] 139 mmol/L 136-145 [facility] WBC (Bld) [#/Vol] 7.3 10*3/uL 4.4-11.0 [facility] Blood erythrocytes count (nu mber/volume)Ordered By: Venkat Malin on 02-28-2023 RBC (Bld) [#/Vol] 4.50 10*6/uL 4.2-5.4 [facility] Blood hemoglobin measurement (mass/volume)Ordered By: Venkat Malin on 02-28-2023 Hemoglobin (Bld) [Mass/Vol] 12.8 g/dL 12.0-15.0 [facility] Blood platelet mean volumeOr dered By: Venkat Malin on 02-28-2023 Platelet mean volume (Bld) [Entitic vol] 11.0 fL 6.2-12.0 [facility] Determination of erythrocyte mean corpuscular volume (MCV)Ordered By: Venkat Malin on 02-28-2023 MCV (RBC) [Entitic vol] 90.0 fL 81-99 [facility] Hematocrit Auto (Bld) [Volum e fraction]Ordered By: Venkat Malin on 02-28-2023 Hematocrit (Bld) [Volume fraction] 40.5 % 37-47 [facility] Laboratory - Chemistry and C hemistry - challengeOrdered By: Venkat Malin on 02-28-2023 ALP [Catalytic activity/Vol] 126 U/L 45-117 [facility] ALT [Catalytic activity/Vol] 20 U/L 13-56 [facility] CO2 [Moles/Vol] 23.0 mmol/L 21.0-32.0 [facility] Globulin (S) [Mass/Vol] 5.2 g/dL 2.2-4.2 [facility] Urea nitrogen/Creatinine [Mass ratio] 17.6 mg/mg 10-20 [facility] Laboratory - Hematology and Cell countsOrdered By: Venkat Malin on 02-28-2023 Erythrocyte distribution width (RBC) [Entitic vol] 50.6 fL 35.1-43.9 [facility] Erythrocyte distribution width (RBC) [Ratio] 15.3 % 11.6-14.6 [facility] MCH (RBC) [Entitic mass] 28.4 pg 27.0-32.0 [facility] MCHC Auto (RBC) [Mass/Vol]Or dered By: Venkat Malin on 02-28-2023 MCHC (RBC) [Mass/Vol] 31.6 g/dL 32-[address] [facility] No Panel InformationOrdered By: Venkat Malin on 02-28-2023 Estimated GFR (MDRD) Amer 108 mL/min >60 [facility] Comment on above: GFR Calc Estimated GFR (MDRD) Non-Af Amer 90 mL/min >60 [facility] Comment on above: Non- GFR Calc Miscellaneous Test See comment [facility] Comment on above: TEST RESULTS LIMITSC arbamazepine(Tegretol), S 1.6 Low ug/mL 4.0-12.0 In conjunction with other antiepileptic drugs Therapeutic 4.0 - 8.0 Toxicity 9.0 - 12.0 Carbamazepine alone Therapeutic 8.0 - 12.0 Detection Limit = 2.0 <2.0 indicates None Detected TESTING PERFORMED AT [facility]. ORIGINAL REPORT ON FILE IN LAB CONTAINS ADDITIONAL TEST SITE INFORMATION. Platelets bldOrdered By: Pet andrew Malin on 02-28-2023 Platelets (Bld) [#/Vol] 344 10*3/uL 150-450 [facility] Serum or plasma albumin kavin urement (mass/volume)Ordered By: Venkat Malin on 02-28-2023 Albumin [Mass/Vol] 2.7 g/dL 3.2-5.0 [facility] Serum or plasma albumin/glob ulin mass ratioOrdered By: Venkat Malin on 02-28-2023 Albumin/Globulin [Mass ratio] 0.5 {ratio} 0.9-2.4 [facility] Serum or plasma calcium kavin urement (mass/volume)Ordered By: Venkat Malin on 02-28-2023 Calcium [Mass/Vol] 8.8 mg/dL 8.5-10.1 [facility] Serum or plasma creatinine m easurement (mass/volume)Ordered By: Venkat Malin on 02-28-2023 Creatinine [Mass/Vol] 0.74 mg/dL 0.55-1.[address] [facility] Comment on above: The validity of the calculated GFR & GFRAA in patients over 70 years has not been determined. Clinical correlation is essential. Serum or plasma urea nitroge n measurement (mass/volume)Ordered By: Venkat Malin on 02-28-2023 Urea nitrogen [Mass/Vol] 13 mg/dL 7-18 [facility] Thin prep Papanicolaou smear with manual screeningOrdered By: Venkat Malin on 02-28-2023 Thin prep Papanicolaou smear with manual screening 11 U/L 15-37 [facility] Thin prep Papanicolaou smear with manual screening 5 5-15 [facility] Basophil percentageOrdered B y: Venkat Malin on 12-29-2022 Bilirubin [Mass/Vol] 0.30 mg/dL 0.20-1.00 [facility] Comment on above: For patients on eltr ombopag therapy, use of Dimension [place] TBIL is not recommended. Chloride [Moles/Vol] 110 mmol/L 98-107 [facility] Glucose [Mass/Vol] 93 mg/dL 74-106 [facility] Potassium [Moles/Vol] 3.6 mmol/L 3.5-5.[address] [facility] Protein [Mass/Vol] 7.8 g/dL 6.4-8.2 [facility] Sodium [Moles/Vol] 141 mmol/L 136-145 [facility] WBC (Bld) [#/Vol] 6.6 10*3/uL 4.4-11.0 [facility] Blood erythrocytes count (nu mber/volume)Ordered By: Venkat Malin on 12-29-2022 RBC (Bld) [#/Vol] 4.53 10*6/uL 4.2-5.4 [facility] Blood hemoglobin measurement (mass/volume)Ordered By: Venkat Malin on 12-29-2022 Hemoglobin (Bld) [Mass/Vol] 12.5 g/dL 12.0-15.0 [facility] Blood platelet mean volumeOr dered By: Venkat Malin on 12-29-2022 Platelet mean volume (Bld) [Entitic vol] 10.7 fL 6.2-12.0 [facility] Determination of erythrocyte mean corpuscular volume (MCV)Ordered By: Venkat Malin on 12-29-2022 MCV (RBC) [Entitic vol] 90.7 fL 81-99 [facility] Hematocrit Auto (Bld) [Volum e fraction]Ordered By: Venkat Malin on 12-29-2022 Hematocrit (Bld) [Volume fraction] 41.1 % 37-47 [facility] Laboratory - Chemistry and C hemistry - challengeOrdered By: Venkat Malin on 12-29-2022 ALP [Catalytic activity/Vol] 116 U/L 45-117 [facility] ALT [Catalytic activity/Vol] 24 U/L 13-56 [facility] CO2 [Moles/Vol] 25.0 mmol/L 21.0-32.0 [facility] Globulin (S) [Mass/Vol] 5.1 g/dL 2.2-4.2 [facility] Urea nitrogen/Creatinine [Mass ratio] 19.8 mg/mg 10-20 [facility] Laboratory - Hematology and Cell countsOrdered By: Venkat Malin on 12-29-2022 Erythrocyte distribution width (RBC) [Entitic vol] 49.2 fL 35.1-43.9 [facility] Erythrocyte distribution width (RBC) [Ratio] 14.9 % 11.6-14.6 [facility] MCH (RBC) [Entitic mass] 27.6 pg 27.0-32.0 [facility] [Mass/Vol]Or dered By: Venkat Malin on 12-29-2022 MCHC (RBC) [Mass/Vol] 30.4 g/dL 32-[address] [facility] No Panel InformationOrdered By: Venkat Malin on 12-29-2022 Estimated GFR (MDRD) Amer 91 mL/min >60 [facility] Comment on above: GFR Calc Estimated GFR (MDRD) Non-Af Amer 75 mL/min >60 [facility] Comment on above: Non- GFR Calc Platelets bldOrdered By: Sarah Malin on 12-29-2022 Platelets (Bld) [#/Vol] 324 10*3/uL 150-450 [facility] Serum or plasma albumin kavin urement (mass/volume)Ordered By: Venkat Malin on 12-29-2022 Albumin [Mass/Vol] 2.7 g/dL 3.2-5.0 [facility] Serum or plasma albumin/glob ulin mass ratioOrdered By: Venkat Malin on 12-29-2022 Albumin/Globulin [Mass ratio] 0.5 {ratio} 0.9-2.4 [facility] Serum or plasma calcium kavin urement (mass/volume)Ordered By: Venkat Malin on 12-29-2022 Calcium [Mass/Vol] 9.0 mg/dL 8.5-10.1 [facility] Serum or plasma creatinine m easurement (mass/volume)Ordered By: Venkat Malin on 12-29-2022 Creatinine [Mass/Vol] 0.86 mg/dL 0.55-1.[address] [facility] Comment on above: The validity of the calculated GFR & GFRAA in patients over 70 years has not been determined. Clinical correlation is essential. Serum or plasma urea nitroge n measurement (mass/volume)Ordered By: Venkat Malin on 12-29-2022 Urea nitrogen [Mass/Vol] 17 mg/dL 7-18 [facility] Thin prep Papanicolaou smear with manual screeningOrdered By: Venkat Malin on 12-29-2022 Thin prep Papanicolaou smear with manual screening 14 U/L 15-37 [facility] Thin prep Papanicolaou smear with manual screening 6 5-15 [facility] CNCOon 11-21-2022 CNCO Letter Text Normal [facility] Basophil percentageOrdered B y: Venkat Malin on 08-31-2022 Bilirubin [Mass/Vol] 0.20 mg/dL 0.20-1.00 [facility] Comment on above: For patients on eltr ombopag therapy, use of Dimension [place] TBIL is not recommended. Chloride [Moles/Vol] 110 mmol/L 98-107 [facility] Glucose [Mass/Vol] 93 mg/dL 74-106 [facility] Potassium [Moles/Vol] 4.2 mmol/L 3.5-5.[address] [facility] Protein [Mass/Vol] 7.1 g/dL 6.4-8.2 [facility] Sodium [Moles/Vol] 142 mmol/L 136-145 [facility] WBC (Bld) [#/Vol] 6.6 10*3/uL 4.4-11.0 [facility] Blood erythrocytes count (nu mber/volume)Ordered By: Venkat Malin on 08-31-2022 RBC (Bld) [#/Vol] 4.67 10*6/uL 4.2-5.4 [facility] Blood hemoglobin measurement (mass/volume)Ordered By: Venkat Malin on 08-31-2022 Hemoglobin (Bld) [Mass/Vol] 12.6 g/dL 12.0-15.0 [facility] Blood platelet mean volumeOr dered By: Venkat Malin on 08-31-2022 Platelet mean volume (Bld) [Entitic vol] 11.0 fL 6.2-12.0 [facility] Determination of erythrocyte mean corpuscular volume (MCV)Ordered By: Venkat Malin on 08-31-2022 MCV (RBC) [Entitic vol] 87.8 fL 81-99 [facility] Hematocrit Auto (Bld) [Volum e fraction]Ordered By: Venkat Malin on 08-31-2022 Hematocrit (Bld) [Volume fraction] 41.0 % 37-47 [facility] Laboratory - Chemistry and C hemistry - challengeOrdered By: Venkat Malin on 08-31-2022 ALP [Catalytic activity/Vol] 112 U/L 45-117 [facility] ALT [Catalytic activity/Vol] 24 U/L 13-56 [facility] CO2 [Moles/Vol] 24.0 mmol/L 21.0-32.0 [facility] Globulin (S) [Mass/Vol] 4.5 g/dL 2.2-4.2 [facility] Urea nitrogen/Creatinine [Mass ratio] 21.6 mg/mg 10-20 [facility] Laboratory - Hematology and Cell countsOrdered By: Venkat Malin on 08-31-2022 Erythrocyte distribution width (RBC) [Entitic vol] 50.0 fL 35.1-43.9 [facility] Erythrocyte distribution width (RBC) [Ratio] 15.6 % 11.6-14.6 [facility] MCH (RBC) [Entitic mass] 27.0 pg 27.0-32.0 [facility] MCHC Auto (RBC) [Mass/Vol]Or dered By: Venkat Malin on 08-31-2022 MCHC (RBC) [Mass/Vol] 30.7 g/dL 32-[address] [facility] No Panel InformationOrdered By: Venkat Malin on 08-31-2022 Estimated GFR (MDRD) Amer 108 mL/min >60 [facility] Comment on above: GFR Calc Estimated GFR (MDRD) Non-Af Amer 89 mL/min >60 [facility] Comment on above: Non- GFR Calc Miscellaneous Test See comment [facility] Comment on above: TEST RESULT LIMITSCa rbamazepine (Tegretol), S <0.5 Low ug/mL 4.0-12.0 In conjunction with other antiepileptic drugs Therapeutic 4.0 - 8.0 Toxicity 9.0 - 12.0 Carbamazepine alone Therapeutic 8.0 - 12.0 Detection Limit = 2.0 <2.0 indicated None Detected Verified by repeat analysis ____ TESTING PERFORMED AT [facility]. ORIGINAL REPORT ON FILE IN LAB CONTAINS ADDITIONAL TEST SITE INFORMATION. Platelets bldOrdered By: Sarah Malin on 08-31-2022 Platelets (Bld) [#/Vol] 354 10*3/uL 150-450 [facility] Serum or plasma albumin kavin urement (mass/volume)Ordered By: Venkat Malin on 08-31-2022 Albumin [Mass/Vol] 2.6 g/dL 3.2-5.0 [facility] Serum or plasma albumin/glob ulin mass ratioOrdered By: Venkat Malin on 08-31-2022 Albumin/Globulin [Mass ratio] 0.6 {ratio} 0.9-2.4 [facility] Serum or plasma calcium kavin urement (mass/volume)Ordered By: Venkat Malin on 08-31-2022 Calcium [Mass/Vol] 8.5 mg/dL 8.5-10.1 [facility] Serum or plasma creatinine m easurement (mass/volume)Ordered By: Venkat Malin on 08-31-2022 Creatinine [Mass/Vol] 0.74 mg/dL 0.55-1.[address] [facility] Comment on above: The validity of the calculated GFR & GFRAA in patients over 70 years has not been determined. Clinical correlation is essential. Serum or plasma urea nitroge n measurement (mass/volume)Ordered By: Venkat Malin on 08-31-2022 Urea nitrogen [Mass/Vol] 16 mg/dL 7-18 [facility] Thin prep Papanicolaou smear with manual screeningOrdered By: Venkat Malin on 08-31-2022 Thin prep Papanicolaou smear with manual screening 12 U/L 15-37 [facility] Thin prep Papanicolaou smear with manual screening 8 5-15 [facility] Basophil percentageOrdered B y: Venkat Malin on 06-30-2022 Chloride [Moles/Vol] 107 mmol/L 98-107 [facility] Glucose [Mass/Vol] 100 mg/dL 74-106 [facility] Comment on above: Fasting Glucose resu lt from 100 to 125 mg/dL suggests IMPAIRED HOMEOSTASIS per A.D.A. criteria. Potassium [Moles/Vol] 3.9 mmol/L 3.5-5.[address] [facility] Sodium [Moles/Vol] 138 mmol/L 136-145 [facility] WBC (Bld) [#/Vol] 6.4 10*3/uL 4.4-11.0 [facility] Blood erythrocytes count (nu mber/volume)Ordered By: Venkat Malin on 06-30-2022 RBC (Bld) [#/Vol] 4.53 10*6/uL 4.2-5.4 [facility] Blood hemoglobin measurement (mass/volume)Ordered By: Venkat Malin on 06-30-2022 Hemoglobin (Bld) [Mass/Vol] 12.4 g/dL 12.0-15.0 [facility] Blood platelet mean volumeOr dered By: Venkat Malin on 06-30-2022 Platelet mean volume (Bld) [Entitic vol] 10.8 fL 6.2-12.0 [facility] Determination of erythrocyte mean corpuscular volume (MCV)Ordered By: Venkat Malin on 06-30-2022 MCV (RBC) [Entitic vol] 89.4 fL 81-99 [facility] Hematocrit Auto (Bld) [Volum e fraction]Ordered By: Venkat Malin on 06-30-2022 Hematocrit (Bld) [Volume fraction] 40.5 % 37-47 [facility] Laboratory - Chemistry and C hemistry - challengeOrdered By: Venkat Malin on 06-30-2022 CO2 [Moles/Vol] 24.0 mmol/L 21.0-32.0 [facility] Urea nitrogen/Creatinine [Mass ratio] 26.5 mg/mg 10-20 [facility] Laboratory - Hematology and Cell countsOrdered By: Venkat Malin on 06-30-2022 Erythrocyte distribution width (RBC) [Entitic vol] 49.1 fL 35.1-43.9 [facility] Erythrocyte distribution width (RBC) [Ratio] 14.9 % 11.6-14.6 [facility] MCH (RBC) [Entitic mass] 27.4 pg 27.0-32.0 [facility] MCHC Auto (RBC) [Mass/Vol]Or dered By: Venkat Malin on 06-30-2022 MCHC (RBC) [Mass/Vol] 30.6 g/dL 32-[address] [facility] No Panel InformationOrdered By: Venkat Malin on 06-30-2022 Estimated GFR (MDRD) Amer 95 mL/min >60 [facility] Comment on above: GFR Calc Estimated GFR (MDRD) Non-Af Amer 79 mL/min >60 [facility] Comment on above: Non- GFR Calc Platelets bldOrdered By: Sarah Malin on 06-30-2022 Platelets (Bld) [#/Vol] 285 10*3/uL 150-450 [facility] Serum or plasma calcium kavin urement (mass/volume)Ordered By: Venkat Malin on 06-30-2022 Calcium [Mass/Vol] 9.1 mg/dL 8.5-10.1 [facility] Serum or plasma creatinine m easurement (mass/volume)Ordered By: Venkat Malin on 06-30-2022 Creatinine [Mass/Vol] 0.83 mg/dL 0.55-1.[address] [facility] Comment on above: The validity of the calculated GFR & GFRAA in patients over 70 years has not been determined. Clinical correlation is essential. Serum or plasma urea nitroge n measurement (mass/volume)Ordered By: Venkat Malin on 06-30-2022 Urea nitrogen [Mass/Vol] 22 mg/dL 7-18 [facility] Thin prep Papanicolaou smear with manual screeningOrdered By: Venkat Malin on 06-30-2022 Thin prep Papanicolaou smear with manual screening 7 5-15 [facility] Absolute lymphocyte counton 02-28-2022 Lymphocytes Auto (Unsp spec) [#/Vol] 1.92 10*3/uL 0.83-4.51 [facility] Work Phone: Basophil percentageon 2021 Basophils/100 WBC (Bld) 1.3 % 0-1 [facility] Work Phone: [phone] Bilirubin [Mass/Vol] 0.40 mg/dL 0.20-1.00 [facility] Work Phone: Comment on above: For patients on eltr ombopag therapy, use of Dimension [place] TBIL is not recommended. Chloride [Moles/Vol] 110 mmol/L 98-107 [facility] Work Phone: Eosinophils/100 WBC (Bld) 2.9 % 0-5 [facility] Work Phone: Glucose [Mass/Vol] 81 mg/dL 74-106 [facility] Work Phone: Neutrophils (Bld) [#/Vol] 2.7 10*3/uL 2.0-7.7 [facility] Work Phone: [phone] Neutrophils/100 WBC (Bld) 52.4 % 47-70 [facility] Work Phone: [phone] Potassium [Moles/Vol] 3.9 mmol/L 3.5-5.[address] [facility] Work Phone: [phone] Protein [Mass/Vol] 7.2 g/dL 6.4-8.2 [facility] Work Phone: [phone] Sodium [Moles/Vol] 139 mmol/L 136-145 [facility] Work Phone: WBC (Bld) [#/Vol] 5.2 10*3/uL 4.4-11.0 [facility] Work Phone: [phone] Blood erythrocytes count (nu mber/volume)on 02-28-2022 RBC (Bld) [#/Vol] 5.12 10*6/uL 4.2-5.4 [facility] Work Phone: Blood hemoglobin measurement (mass/volume)on 02-28-2022 Hemoglobin (Bld) [Mass/Vol] 15.5 g/dL 12.0-15.0 [facility] Work Phone: [phone] Blood lymphocytes/100 leukoc yteson 02-28-2022 Lymphocytes/100 WBC (Bld) 36.7 % 19-41 [facility] Work Phone: Blood monocytes/100 leukocyt eson 02-28-2022 Monocytes/100 WBC (Bld) 6.3 % 0-10 [facility] Work Phone: Blood platelet mean volumeon 02-28-2022 Platelet mean volume (Bld) [Entitic vol] 12.2 fL 6.2-12.0 [facility] Work Phone: Determination of erythrocyte mean corpuscular volume (MCV)on 02-28-2022 MCV (RBC) [Entitic vol] 92.0 fL 81-99 [facility] Work Phone: Hematocrit Auto (Bld) [Volum e fraction]on 02-28-2022 Hematocrit (Bld) [Volume fraction] 47.1 % 37-47 [facility] Work Phone: Laboratory - Chemistry and C hemistry - challengeon 02-28-2022 ALP [Catalytic activity/Vol] 124 U/L 45-117 [facility] Work Phone: ALT [Catalytic activity/Vol] 49 U/L 13-56 [facility] Work Phone: CO2 [Moles/Vol] 22.0 mmol/L 21.0-32.0 [facility] Work Phone: Globulin (S) [Mass/Vol] 4.2 g/dL 2.2-4.2 [facility] Work Phone: Urea nitrogen/Creatinine [Mass ratio] 26.4 mg/mg 10-20 [facility] Work Phone: Laboratory - Hematology and Cell countson 02-28-2022 Erythrocyte distribution width (RBC) [Entitic vol] 46.6 fL 35.1-43.9 [facility] Work Phone: Erythrocyte distribution width (RBC) [Ratio] 13.7 % 11.6-14.6 [facility] Work Phone: Immature granulocytes/100 WBC (Bld) 0.400 % 0.0-0.9 [facility] Work Phone: Comment on above: IG% - Immature Granu locytes (promyelocytes, myelocytes and metamyelocytes) > 1% indicates that a LEFT SHIFT is Present. MCH (RBC) [Entitic mass] 30.3 pg 27.0-32.0 [facility] Work Phone: Nucleated RBC/100 WBC (Bld) [Ratio] 0 % 0-5 [facility] Work Phone: MCHC Auto (RBC) [Mass/Vol]on 02-28-2022 MCHC (RBC) [Mass/Vol] 32.9 g/dL 32-[address] [facility] Work Phone: No Panel Informationon 02-28 Carbamazepine (Tegretol) Level < 0.5 ug/mL 4.0-12.0 [facility] Work Phone: Estimated GFR (MDRD) Amer 136 mL/min >60 [facility] Work Phone: Comment on above: GFR Calc Estimated GFR (MDRD) Non-Af Amer 113 mL/min >60 [facility] Work Phone: Comment on above: Non- GFR Calc Platelets bldon 02-28-2022 Platelets (Bld) [#/Vol] 208 10*3/uL 150-450 [facility] Work Phone: Serum or plasma albumin kavin urement (mass/volume)on 02-28-2022 Albumin [Mass/Vol] 3.0 g/dL 3.2-5.0 [facility] Work Phone: Serum or plasma albumin/glob ulin mass ratioon 02-28-2022 Albumin/Globulin [Mass ratio] 0.7 {ratio} 0.9-2.4 [facility] Work Phone: Serum or plasma calcium kavin urement (mass/volume)on 02-28-2022 Calcium [Mass/Vol] 9.0 mg/dL 8.5-10.1 [facility] Work Phone: Serum or plasma creatinine m easurement (mass/volume)on 02-28-2022 Creatinine [Mass/Vol] 0.61 mg/dL 0.55-1.[address] [facility] Work Phone: Comment on above: The validity of the calculated GFR & GFRAA in patients over 70 years has not been determined. Clinical correlation is essential. Serum or plasma urea nitroge n measurement (mass/volume)on 02-28-2022 Urea nitrogen [Mass/Vol] 16 mg/dL 7-18 [facility] Work Phone: Thin prep Papanicolaou smear with manual screeningon 02-28-2022 Thin prep Papanicolaou smear with manual screening 23 U/L 15-37 [facility] Work Phone: Thin prep Papanicolaou smear with manual screening 7 5-15 [facility] Work Phone: Basophil percentageon 2021 Bilirubin [Mass/Vol] 0.30 mg/dL 0.20-1.00 [facility] Work Phone: Comment on above: For patients on eltr ombopag therapy, use of Dimension [place] TBIL is not recommended. Chloride [Moles/Vol] 112 mmol/L 98-107 [facility] Work Phone: Glucose [Mass/Vol] 95 mg/dL 74-106 [facility] Work Phone: Potassium [Moles/Vol] 3.6 mmol/L 3.5-5.[address] [facility] Work Phone: Protein [Mass/Vol] 6.6 g/dL 6.4-8.2 [facility] Work Phone: Sodium [Moles/Vol] 143 mmol/L 136-145 [facility] Work Phone: WBC (Bld) [#/Vol] 5.8 10*3/uL 4.4-11.0 [facility] Work Phone: Blood erythrocytes count (nu mber/volume)on 12-29-2021 RBC (Bld) [#/Vol] 4.57 10*6/uL 4.2-5.4 [facility] Work Phone: Blood hemoglobin measurement (mass/volume)on 12-29-2021 Hemoglobin (Bld) [Mass/Vol] 13.5 g/dL 12.0-15.0 [facility] Work Phone: Blood platelet mean volumeon 12-29-2021 Platelet mean volume (Bld) [Entitic vol] 12.6 fL 6.2-12.0 [facility] Work Phone: Determination of erythrocyte mean corpuscular volume (MCV)on 12-29-2021 MCV (RBC) [Entitic vol] 93.7 fL 81-99 [facility] Work Phone: Hematocrit Auto (Bld) [Volum e fraction]on 12-29-2021 Hematocrit (Bld) [Volume fraction] 42.8 % 37-47 [facility] Work Phone: Laboratory - Chemistry and C hemistry - challengeon 12-29-2021 ALP [Catalytic activity/Vol] 106 U/L 45-117 [facility] Work Phone: ALT [Catalytic activity/Vol] 30 U/L 13-56 [facility] Work Phone: CO2 [Moles/Vol] 24.0 mmol/L 21.0-32.0 [facility] Work Phone: Globulin (S) [Mass/Vol] 3.7 g/dL 2.2-4.2 [facility] Work Phone: Urea nitrogen/Creatinine [Mass ratio] 21.0 mg/mg 10-20 [facility] Work Phone: Laboratory - Hematology and Cell countson 12-29-2021 Erythrocyte distribution width (RBC) [Entitic vol] 45.9 fL 35.1-43.9 [facility] Work Phone: Erythrocyte distribution width (RBC) [Ratio] 13.3 % 11.6-14.6 [facility] Work Phone: MCH (RBC) [Entitic mass] 29.5 pg 27.0-32.0 [facility] Work Phone: MCHC Auto (RBC) [Mass/Vol]on 12-29-2021 MCHC (RBC) [Mass/Vol] 31.5 g/dL 32-[address] [facility] Work Phone: No Panel Informationon 12-29 Estimated GFR (MDRD) Amer 113 mL/min >60 [facility] Work Phone: Comment on above: GFR Calc Estimated GFR (MDRD) Non-Af Amer 93 mL/min >60 [facility] Work Phone: Comment on above: Non- GFR Calc Platelets bldon 12-29-2021 Platelets (Bld) [#/Vol] 241 10*3/uL 150-450 [facility] Work Phone: Serum or plasma albumin kavin urement (mass/volume)on 12-29-2021 Albumin [Mass/Vol] 2.9 g/dL 3.2-5.0 [facility] Work Phone: Serum or plasma albumin/glob ulin mass ratioon 12-29-2021 Albumin/Globulin [Mass ratio] 0.8 {ratio} 0.9-2.4 [facility] Work Phone: Serum or plasma calcium kavin urement (mass/volume)on 12-29-2021 Calcium [Mass/Vol] 8.5 mg/dL 8.5-10.1 [facility] Work Phone: Serum or plasma creatinine m easurement (mass/volume)on 12-29-2021 Creatinine [Mass/Vol] 0.72 mg/dL 0.55-1.[address] [facility] Work Phone: Comment on above: The validity of the calculated GFR & GFRAA in patients over 70 years has not been determined. Clinical correlation is essential. Serum or plasma urea nitroge n measurement (mass/volume)on 12-29-2021 Urea nitrogen [Mass/Vol] 15 mg/dL 7-18 [facility] Work Phone: Thin prep Papanicolaou smear with manual screeningon 12-29-2021 Thin prep Papanicolaou smear with manual screening 16 U/L 15-37 [facility] Work Phone: Thin prep Papanicolaou smear with manual screening 7 5-15 [facility] Work Phone: Absolute lymphocyte counton 09-28-2021 Lymphocytes Auto (Unsp spec) [#/Vol] 2.91 10*3/uL 0.83-4.51 [facility] Work Phone: Basophil percentageon 2021 Basophils/100 WBC (Bld) 0.7 % 0-1 [facility] Work Phone: Bilirubin [Mass/Vol] 0.20 mg/dL 0.20-1.00 [facility] Work Phone: Comment on above: For patients on eltr ombopag therapy, use of Dimension [place] TBIL is not recommended. Chloride [Moles/Vol] 111 mmol/L 98-107 [facility] Work Phone: [phone] Eosinophils/100 WBC (Bld) 2.8 % 0-5 [facility] Work Phone: Glucose [Mass/Vol] 93 mg/dL 74-106 [facility] Work Phone: [phone] Neutrophils (Bld) [#/Vol] 3.5 10*3/uL 2.0-7.7 [facility] Work Phone: [phone] Neutrophils/100 WBC (Bld) 49.0 % 47-70 [facility] Work Phone: Potassium [Moles/Vol] 3.7 mmol/L 3.5-5.[address] [facility] Work Phone: Protein [Mass/Vol] 7.0 g/dL 6.4-8.2 [facility] Work Phone: Sodium [Moles/Vol] 139 mmol/L 136-145 [facility] Work Phone: WBC (Bld) [#/Vol] 7.1 10*3/uL 4.4-11.0 [facility] Work Phone: Blood erythrocytes count (nu mber/volume)on 09-28-2021 RBC (Bld) [#/Vol] 4.96 10*6/uL 4.2-5.4 [facility] Work Phone: Blood hemoglobin measurement (mass/volume)on 09-28-2021 Hemoglobin (Bld) [Mass/Vol] 15.0 g/dL 12.0-15.0 [facility] Work Phone: Blood lymphocytes/100 leukoc yteson 09-28-2021 Lymphocytes/100 WBC (Bld) 40.9 % 19-41 [facility] Work Phone: Blood monocytes/100 leukocyt eson 09-28-2021 Monocytes/100 WBC (Bld) 6.5 % 0-10 [facility] Work Phone: Blood platelet mean volumeon 09-28-2021 Platelet mean volume (Bld) [Entitic vol] 12.3 fL 6.2-12.0 [facility] Work Phone: Determination of erythrocyte mean corpuscular volume (MCV)on 09-28-2021 MCV (RBC) [Entitic vol] 88.5 fL 81-99 [facility] Work Phone: Hematocrit Auto (Bld) [Volum e fraction]on 09-28-2021 Hematocrit (Bld) [Volume fraction] 43.9 % 37-47 [facility] Work Phone: Laboratory - Chemistry and C hemistry - challengeon 09-28-2021 ALP [Catalytic activity/Vol] 130 U/L 45-117 [facility] Work Phone: ALT [Catalytic activity/Vol] 26 U/L 13-56 [facility] Work Phone: CO2 [Moles/Vol] 23.0 mmol/L 21.0-32.0 [facility] Work Phone: Globulin (S) [Mass/Vol] 4.0 g/dL 2.2-4.2 [facility] Work Phone: Urea nitrogen/Creatinine [Mass ratio] 35.9 mg/mg 10-20 [facility] Work Phone: Laboratory - Hematology and Cell countson 09-28-2021 Erythrocyte distribution width (RBC) [Entitic vol] 43.6 fL 35.1-43.9 [facility] Work Phone: Erythrocyte distribution width (RBC) [Ratio] 13.6 % 11.6-14.6 [facility] Work Phone: Immature granulocytes/100 WBC (Bld) 0.100 % 0.0-0.9 [facility] Work Phone: Comment on above: IG% - Immature Granu locytes (promyelocytes, myelocytes and metamyelocytes) > 1% indicates that a LEFT SHIFT is Present. MCH (RBC) [Entitic mass] 30.2 pg 27.0-32.0 [facility] Work Phone: Nucleated RBC/100 WBC (Bld) [Ratio] 0 % 0-5 [facility] Work Phone: MCHC Auto (RBC) [Mass/Vol]on 09-28-2021 MCHC (RBC) [Mass/Vol] 34.2 g/dL 32-[address] [facility] Work Phone: No Panel Informationon 09-28 Carbamazepine (Tegretol) Level < 0.5 ug/mL 4.0-12.0 [facility] Work Phone: Estimated GFR (MDRD) Amer 170 mL/min >60 [facility] Work Phone: Comment on above: GFR Calc Estimated GFR (MDRD) Non-Af Amer 141 mL/min >60 [facility] Work Phone: Comment on above: Non- GFR Calc Platelets bldon 09-28-2021 Platelets (Bld) [#/Vol] 247 10*3/uL 150-450 [facility] Work Phone: Serum or plasma albumin kavin urement (mass/volume)on 09-28-2021 Albumin [Mass/Vol] 3.0 g/dL 3.2-5.0 [facility] Work Phone: Serum or plasma albumin/glob ulin mass ratioon 09-28-2021 Albumin/Globulin [Mass ratio] 0.8 {ratio} 0.9-2.4 [facility] Work Phone: Serum or plasma calcium kavin urement (mass/volume)on 09-28-2021 Calcium [Mass/Vol] 8.6 mg/dL 8.5-10.1 [facility] Work Phone: Serum or plasma creatinine m easurement (mass/volume)on 09-28-2021 Creatinine [Mass/Vol] 0.50 mg/dL 0.55-1.[address] [facility] Work Phone: Comment on above: The validity of the calculated GFR & GFRAA in patients over 70 years has not been determined. Clinical correlation is essential. Serum or plasma urea nitroge n measurement (mass/volume)on 09-28-2021 Urea nitrogen [Mass/Vol] 18 mg/dL 7-18 [facility] Work Phone: Thin prep Papanicolaou smear with manual screeningon 09-28-2021 Thin prep Papanicolaou smear with manual screening 11 U/L 15-37 [facility] Work Phone: Thin prep Papanicolaou smear with manual screening 5 5-15 [facility] Work Phone: Basic Metabolic Panelon 12-0 Anion gap [Moles/Vol] 8 mmol/L Normal 3-13 [facility] Comment on above: Performed By: #### B MP3, HEMOG #### [facility] [address] [address] Calcium [Mass/Vol] 9.0 mg/dL Normal 8.4-10.4 [facility] Comment on above: Performed By: #### B MP3, HEMOG #### [facility] [address] [place] [address] CO2 [Moles/Vol] 24 mmol/L Normal 22-30 [facility] Comment on above: Performed By: #### B MP3, HEMOG #### [facility] [address] [place], [place] Creatinine [Mass/Vol] 0.72 mg/dL Normal 0.52-1.25 [facility] Comment on above: Performed By: #### B MP3, HEMOG #### [facility] [address] [place], [place] eGFR OTHER > 90.0 Normal >60 [facility] Comment on above: Result Comment: KDIG [...] #### B MP3, HEMOG #### [facility] [address] [place], [place] GFR/1.73 sq M.predicted among blacks MDRD (S/P/Bld) [Vol rate/Area] mL/min/{1.73_m2} Normal >60 [facility] Comment on above: Performed By: #### B MP3, HEMOG #### [facility] [address] [place], [place] Glucose [Mass/Vol] 111 mg/dL High 70-100 [facility] Comment on above: Performed By: #### B MP3, HEMOG #### [facility] [address] [place], [place] Urea nitrogen [Mass/Vol] 18 mg/dL Normal 9-20 [facility] Comment on above: Performed By: #### B MP3, HEMOG #### [facility] [address] [place] [address] Chloride [Moles/Vol] 110 mmol/L High 98-107 [facility] Comment on above: Performed By: #### B MP3, HEMOG #### [facility] [address] [place] [address] Potassium [Moles/Vol] 4.1 mmol/L Normal 3.5-5.1 [facility] Comment on above: Performed By: #### B MP3, HEMOG #### [facility] [address] [place] [address] Sodium [Moles/Vol] 141 mmol/L Normal 135-145 [facility] Comment on above: Performed By: #### B MP3, HEMOG #### [facility] [address] [place], [place] Anion gap [Moles/Vol] 8 mmol/L 3 - 13 mmol/L [facility] Calcium [Mass/Vol] 9.0 mg/dL 8.4 - 10. 4 mg/dL [facility] Chloride [Moles/Vol] 110 mmol/L High 98 - 10 7 mmol/L [facility] CO2 [Moles/Vol] 24 mmol/L 22 - 30 mmol/L [facility] Creatinine [Mass/Vol] 0.72 mg/dL 0.52 - 1.25 mg/dL [facility] EGFR IF NonAfrican Nepalese >90.0 >60 mL/min [facility] Comment on above: KDIGO guidelines pro [...] [Moles/Vol] 141 mmol/L 135 - 145 mmol/L [facility] Urea nitrogen (BldV) [Mass/Vol] 18 mg/dL 9 - 20 mg/dL [facility] Test Performed by [address] [address] [facility] COVID-19on 07-03-2021 Interpretation and review of laboratory results Abnormal [facility] SARS-CoV-2 (COVID-19) RNA ELVIS+probe Ql (Unsp spec) Detected Abnormal Not Detected [facility] Comment on above: DETECTED Expected result: Not Detected _ Method: Real-time, RT-PCR Negative results do not preclude SARS-CoV-2 infection and should not be used as the sole basis for treatment or other patient management decisions. This assay was developed by [employer] and distributed under an Emergency Use Authorization (EUA) granted by the FDA for the qualitative detection of SARS-CoV-2 nucleic acid. Provider and patient fact sheets can be found at https://www.fda.gov/media/142727/download and https://www.fda.gov/media/083418/download. Test Performed by [address] [address] [facility] CR Chest Portableon 07-03-20 21 CR Chest Portable Patient Name: DIANA PUGH Diagnostic Radiology ACCESSION EXAM DATE/TIME PROCEDURE ORDERING PROVIDER [id number] 07/03/2021 16:22 EST CR Chest Portable [id number] -RAFAT HANEY CPT code 43444 Reason For Exam (CR Chest Portable) fall [...] and Time: 07/03/2021 4:41 Normal [facility] CR Foot Complete 3+ Views [facility] 07-03-2021 CR Foot Complete 3+ Views Right Patient Name: DIANA CALABRESE Diagnostic Radiology ACCESSION EXAM DATE/TIME PROCEDURE ORDERING PROVIDER [id number] 07/03/2021 16:22 EST CR Foot Complete 3+ [id number] -RAFAT HANEY Views Right CPT code 79434 Reason For Exam (CR Foot Complete 3+ [...] and Time: 07/03/2021 5:09 Normal [facility] CR Shoulder 2+ Views Righton 07-03-2021 CR Shoulder 2+ Views Right Patient Name: DIANA CALABRESE Diagnostic Radiology ACCESSION EXAM DATE/TIME PROCEDURE ORDERING PROVIDER [id number] 07/03/2021 16:22 EST CR Shoulder 2+ Views [id number] -RAFAT HANEY Right CPT code 38277 Reason For Exam (CR Shoulder 2+ Views [...] and Time: 07/03/2021 5:04 [address] [facility] CT CERVICAL SPINE WO CONTRAS Ton 07-03-2021 Patient Name: DIANA PUGH Computed Tomography ACCESSION EXAM DATE/TIME PROCEDURE ORDERING PROVIDER [id number] 07/03/2021 16:[address] Spine Cervical w/o [id number] -BLAKE PELAEZ Contrast CPT code 99359 Reason For Exam (CT Spine Cervical w/o [...] Tomography ACCESSION EXAM DATE/TIME PROCEDURE ORDERING PROVIDER [id number] 07/03/2021 16:[address] Spine Cervical w/o [id number] -BLAKE PELAEZ Contrast CPT code 19319 Reason For Exam (CT Spine Cervical w/o [...] Tomography ACCESSION EXAM DATE/TIME PROCEDURE ORDERING PROVIDER [id number] 07/03/2021 16:[address] Head or Brain w/o [id number] -JUANJOSE PATTON Contrast CPT code 57727 Reason For Exam (CT Head or Brain [...] Tomography ACCESSION EXAM DATE/TIME PROCEDURE ORDERING PROVIDER [id number] 07/03/2021 16:[address] Head or Brain w/o [id number] -JUANJOSE PATTON Contrast CPT code 87538 Reason For Exam (CT Head or Brain [...] Tomography ACCESSION EXAM DATE/TIME PROCEDURE ORDERING PROVIDER [id number] 07/03/2021 16:[address] Head or Brain w/o [id number] -JUANJOSE PATTON Contrast CPT code 97250 Reason For Exam (CT Head or Brain [...] and Time: 07/03/2021 4:45 [address] [facility] CT Spine Cervical w/o Contra ston 07-03-2021 CT Spine Cervical w/o Contrast [facility]: [id number] ACCESSION EXAM DATE/TIME PROCEDURE ORDERING PROVIDER [id number] 07/03/2021 16:[address] Spine Cervical w/o [id number] -BLAKE PELAEZ Contrast CPT code 38425 Reason For Exam (CT Spine Cervical w/o [...] and Time: 07/03/2021 4:58 Normal [facility] ED [facility] Patient: Diana Calabrese : 1975 Date of Evaluation: 07/03/2021 ED Resident Provider: Rafat Haney MD ED care was supervised by Dr. Patton who independently examined and evaluated the patient. Please see their attestation note for further details. Chief Complaint Chief Complaint Patient presents with ? Fall Per EMS, patient fell out of bed 3ft, from long-term, has laceration to back of head, arrives with C-collar. ? Laceration TLINGIT & HAIDA I was wearing a surgical mask for the entirety of this encounter. Does this patient come from an ECF, SNF, Rehab, Nursing Home or other Congregate setting: Yes (If yes to above patient needs a Covid-19 test) Diana Calabrese is a 45 y.o. 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 [...] and Family: Not on file ? Attends Buddhism Services: Not on file ? Active Member [...] Normal [facility] ED Provider Note Emergency Department Encounter [facility] EMERGENCY DEPT Patient: Diana Calabrese : 1975 Date of Evaluation: 07/03/2021 ED Supervising Physician: Juanjose Patton MD I independently examined and evaluated Diana Calabrese. In brief, Diana Calabrese is a 45 y.o. female that presents to the emergency department for evaluation after fall at long-term. Focused exam: Awake and alert, no acute [...] course/MDM: Patient presented after a fall at long-term. Imaging reveals no acute traumatic injury. There [...] are mis-transcribed.) Juanjose Patton MD Acute Care [facility] Juanjose Patton MD 07/19/21 0821 Normal [facility] Hemogramon 07-03-2021 Erythrocyte distribution width (RBC) [Ratio] 13.8 % Normal 11.5-14.5 [facility] Comment on above: Performed By: #### B MP3, HEMOG #### [address] Hematocrit (Bld) [Volume fraction] 45.3 % Normal 35.0-47.0 [facility] Comment on above: Performed By: #### B MP3, HEMOG #### [address] Hemoglobin (Bld) [Mass/Vol] 14.9 g/dL Normal 11.7-16.0 [facility] Comment on above: Performed By: #### B MP3, HEMOG #### [address] MCH (RBC) [Entitic mass] 29.8 pg Normal 26.0-34.0 [facility] Comment on above: Performed By: #### B MP3, HEMOG #### [address] MCHC 32.9 % Normal 32.0-36.0 [facility] Comment on above: Performed By: #### B MP3, HEMOG #### [address] MCV (RBC) [Entitic vol] 90.6 fL Normal 79.0-98.0 [facility] Comment on above: Performed By: #### B MP3, HEMOG #### [address] Platelet mean volume (Bld) [Entitic vol] 10.5 fL High 7.4-10.4 [facility] Comment on above: Performed By: #### B MP3, HEMOG #### [place] [address] [place] Platelets (Bld) [#/Vol] 220 10*3/uL Normal 140-440 [facility] Comment on above: Performed By: #### B MP3, HEMOG #### [place] [address] [address] [place], [place] RBC (Bld) [#/Vol] 5.00 10*6/uL Normal 3.80-5.20 [facility] Comment on above: Performed By: #### B MP3, HEMOG #### [place] [address] [address] [place], [place] WBC (Bld) [#/Vol] 7.6 10*3/uL Normal 3.6-10.7 [facility] Comment on above: Performed By: #### Clementina MP3, HEMOG #### [place] [address] [address] [place], [place] Hemogram (CBC)on 07-03-2021 Hematocrit (Bld) [Volume fraction] 45.3 % 35.0 - 47.0 % [facility] Hemoglobin.gastrointes tinal spec 1 Ql (Stl) 14.9 g/dL 11.7 - 16.0 g/dL [facility] Interpretation and review of laboratory results Abnormal [...] [#/Vol] 5.00 10*6/uL 3.80 - 5.20 10*6/uL [facility] WBC (Bld) [#/Vol] 7.6 10*3/uL 3.6 - 10.7 10*3/uL [facility] Test Performed by [facility], [address] [place] [address] [facility] No Panel Informationon 07-03 Radiology Study observation (narrative) [facility] Work Phone: Radiology Study observation (narrative) [facility] Work Phone: [id number] 07-03-2021 SARS-CoV-2 (COVID-19) RNA ELVIS+probe Ql (Unsp spec) SARS-CoV-2 --> Status: F DETECTED Expected result: Not Detected _ Method: Real-time, RT-PCR Negative results do not preclude SARS-CoV-2 infection and should not be used as the sole basis for treatment or other patient management decisions. This assay was developed by [employer] and distributed under an Emergency Use Authorization (EUA) granted by the FDA for the qualitative detection of SARS-CoV-2 nucleic acid. Provider and patient fact sheets can be found at https://www.fda.gov/media/ 07454/download and https://www.fda.gov/media/ 99384/download. Expected result: Not Detected _ Method: Real-time, RT-PCR Negative results do not preclude SARS-CoV-2 infection and should not be used as the sole basis for treatment or other patient management decisions. This assay was developed by [employer] and distributed under an Emergency Use Authorization (EUA) granted by the FDA for the qualitative detection of SARS-CoV-2 nucleic acid. Provider and patient fact sheets can be found at https://www.fda.gov/media/ 93663/download and https://www.fda.gov/media/ 34675/download. Abnormal [facility] Comment on above: Performed By: #### C OVID #### [address] [address] XR CHEST PORTABLEon 07-03-20 Patient Name: DIANA MENEZES Diagnostic Radiology ACCESSION EXAM DATE/TIME PROCEDURE ORDERING PROVIDER [id number] 07/03/2021 16:22 EST CR Chest Portable [id number] QIURAFAT CPT code 14110 Reason For Exam (CR Chest Portable) fall [...] ider - 07/03/2021 [facility]: [id number] Radiology ACCESSION EXAM DATE/TIME PROCEDURE ORDERING PROVIDER [id number] 07/03/2021 16:22 EST CR Chest Portable [place] RAFAT QIU CPT code 03878 Reason For Exam (CR Chest Portable) fall [...] Radiology ACCESSION EXAM DATE/TIME PROCEDURE ORDERING PROVIDER [id number] 07/03/2021 16:22 EST CR Foot Complete 3+ [id number] -RAFAT HANEY Views Right CPT code 47106 Reason For Exam (CR Foot Complete 3+ [...] WENDELL Transcribed Date and Time: 07/03/2021 5:09 [facility] Zak Oneill MD - 07/03/2021 Patient Name: DIANA CALABRESE Diagnostic Radiology ACCESSION EXAM DATE/TIME PROCEDURE ORDERING PROVIDER [id number] 07/03/2021 16:22 EST CR Foot Complete 3+ [id number] RAFAT QIU Views Right CPT code 36557 Reason For Exam (CR Foot Complete 3+ [...] WENDELL Transcribed Date and Time: 07/03/2021 5:09 [facility] Work Phone: XR FOOT RIGHT (MIN 3 VIEWS)O rdered By: Zak Hicks on 07-03-2021 [facility] Work Phone: XR Shoulder Right 2 VWon Patient [facility]: [id number] Diagnostic Radiology ACCESSION EXAM DATE/TIME PROCEDURE ORDERING PROVIDER [id number] 07/03/2021 16:22 EST CR Shoulder 2+ Views [id number] CARLSON Right CPT code 12048 Reason For Exam (CR Shoulder 2+ Views [...] Radiology ACCESSION EXAM DATE/TIME PROCEDURE ORDERING PROVIDER [id number] 07/03/2021 16:22 EST CR Shoulder 2+ Views [id number] -RAFAT HANEY Right CPT code 28593 Reason For Exam (CR Shoulder 2+ Views [...] on File ----Signed By: Aayush Duran [email or web address]: 05/21/2018 2:03 PMSigned: 05/21/2018 2:15 PM Reported By: AAYUSH DURAN M.D. Signed By: AAYUSH DURAN M.D. [facility] US ABDOMEN LIMITEDon 018 US ABDOMEN LIMITED [...] DURAN M.D. Signed By: AAYUSH DURAN M.D. [facility] SAMANTHA Katiana 08-23-2017 ANES POST HNO ID: [id number] thor: Desmond Valladarese: AnesthesiologyAuthor Type: AnesthesiologistType: Anesthesia [...] 23, 2017 : 3:23 PM PAGER/CONTACT [facility]: [phone] [facility]2017 ANES PREOP HNO ID: [id number] thor: Desmond Carlton: AnesthesiologyAuthor Type: AnesthesiologistType: Anesthesia [...] August 23, 2017 : 11:30 AM CSN: [id number] [facility] BRIEF OP NOTon 08-23-2017 BRIEF OP NOT HNO ID: [id number] thor: Elver Correiaervice: GynecologyAuthor Type: PhysicianType: Brief Op NoteFiled: 08/23/2017 1:31 PMNote Text:Pre-op dx: menorragiaPost-op dx: sameSurgery: hysteroscopy, DANDC, Chrissy endometrial ablationSurgeon: Elver QuinonesAnesthesia: generalEBL: 0 Normal [facility] HISTORY PHYSICALon 8 HISTORY PHYSICAL HNO ID: [id number] thor: Elver Jackson Masoodervice: GynecologyAuthor Type: PhysicianType: HANDPFiled: 08/25/2017 7:27 AMNote Text:[facility]- Surgical History and Physical MIKAL CALABRESEB: 1975 AGE: 41 SEX: FMRN: [id number] ACCTNUM: [id number] [facility]: [facility] LOCATION: [address] PHYSICIAN: Elver Quinones M.D.ADMIT DATE: 08/23/2017PREOPERATIVE DIAGNOSIS: Abnormal uterine bleeding, spastic quadriplegia.HISTORY: The patient is a 41-year-old, white female, who was presented tothe office from a long-term for evaluation and treatment of abnormaluterine bleeding. [...] and C, with Chrissy endometrial ablation.Elver Quinones M.D.OB/GYNPJN:[id number]: 08/23/2017 10:49:41T: 08/23/2017 12:42:17Job #: [id number] [facility] NURSING PROGon 08-23-2017 NURSING PROG HNO ID: [id number] thor: Ann (Rn) CALISTA Griderervice: NursingAuthor Type: Registered NurseType: Nursing Progress NoteFiled: 08/23/2017 12:40 PMNote Text: Nursing Progress NotePatient Name: Diana CalabreseMRN: [id number] Location: [place] Surgery/[place] Surgery [address] Quinones, HANDP dictated this morning. Consent with [facility] on it. stated he had discussed with POA, but miswrote on consentusing abbrev instead of words. Unable to reach POA at this time forclarification.This note was completed by: Ann Grider RN [facility] OPERATIVE NOon 08-23-2017 OPERATIVE NO HNO ID: [id number] thor: Elver Correiaervice: GynecologyAuthor Type: PhysicianType: Operative ReportFiled: 08/25/2017 7:27 AMNote Text:[facility]- Operative ReportDIANA CALABRESEDOB: 1975 AGE: 41 SEX: FMRN: [id number] ACCTNUM: [id number] [facility]: OBGYN LOCATION: [address] PHYSICIAN: Elver Quinones M.D.DATE OF PROCEDURE: 08/23/2017SURGEON: Elver Quinones M.D.[employer]: NONEANESTHESIA:PREOPERATIVE DIAGNOSIS(ES): Abnormal uterine bleeding.POSTOPERATIVE DIAGNOSIS(ES): Abnormal [...] taken recovery room instable satisfactory condition.PROCEDURE:Elver Quinones M.D.OB/GYNPJN:[id number]: 08/23/2017 13:25:16T: 08/23/2017 22:37:56Job #: [id number] [facility] PROGRESSon 08-23-2017 PROGRESS HNO ID: [id number] thor: Elver Correiaervice: GynecologyAuthor Type: PhysicianType: Progress NotesFiled: 08/23/2017 12:45 PMNote Text:Pre-op note:Patient is non-communicative secondary to traumatic brain injury. She isscheduled for hysteroscopy, dilatation and curettage, and Minervaendometrial ablation. Consent inadvertantly had DANDC for dilatation andcurettage. Patient's doctor and power of securities attorney understand the procedurebeing performed. Patient received medical clearance from Dr. Waters. [facility] PT EDon 08-23-2017 PT ED HNO ID: [id number] thor: Agnieszka WaldronRn) [place] RNService: (none)Author Type: Registered NurseType: Patient EducationFiled: 08/23/2017 3:22 PMNote Text:POST OP LEARNING RESPONSEINSTRUCTION PROVIDED TO: Caregiver and SNF Nurse JessicaMETHOD OF INSTRUCTION: Written instruction - handoutsVerbal instructionPATIENT / FAMILY RESPONSE: Verbalizes understanding of: Post -OperativeInstructionsFOLLO W-UP PLAN: Complete - No need for follow-upSUPPLEMENTAL MATERIAL: NoneREFERRAL (RECOMMENDATION): NoneElectronically Signed By: Agnieszka Mead RN [facility] PT ED HNO ID: [id number] thor: Ann (Rn) CALISTA Griderervice: NursingAuthor Type: Registered NurseType: Patient EducationFiled: 08/23/2017 11:50 AMNote Text:PRE OP LEARNING ASSESSMENTPROCEDURE/SURGERY : SURGERY: Hysteroscopy, DANDC, Endometrial AblationREADINESS TO LEARNCOGNITIVE ABILITY: Confused at timesMOTIVATION TO LEARN: ReluctantFAMILY SUPPORT: caregiver presentPATIENT LEARNS BEST BY: Verbal InstructionFACTORS AFFECTING LEARNING: Other mentally challengedPHYSICAL LIMITATIONS AFFECTING LEARNING: Limited Mobility and OtherLimitations quadriplegic, traumatic brain injuryElectronically Signed By: Ann Grider RN In Department: [facility] SURGICAL PATHOLOGYon 018 SURGICAL PATHOLOGY [facility]: [id number] Physician: Elver Quinones M.D. FIN AL DIAGNOSISEndometrial, [...] Totally submitted inthree cassettes.Gross examination performed at [facility], [address] [place], [place] [id number] 08/23/2017 7:39:11 PMPatient ID #: [id number] of Report: 08/25/2017Date of Procedure: 08/23/2017Date of Receipt: 08/23/2017Submitted by: Elver Quinones M.D.Location: [place]ORDi[place] [address]. Normal [facility] Comment on above: Performed By: #### P ATHS ####[facility] [id number] [place] [address] [phone] Serum Beta HCG [place] /[place]/[facility] use ONLYon 08-23-2017 HCG.beta subunit Qn Negative Normal Negative [facility] Comment on above: Result Comment: Fals e positives and false negatives are rare but have been described. Clinical correlation of the findings is recommended. Performed By: #### B ETAMM ####[facility] [address] [phone] HOSPon 08-22-2017 HOSP Patient:Henrik Calabrese N: Height:6' 2(1.88 m)Weight:237 lb (107.502 kg)Outpatient Medications as of 08/23/17:norethindrone (AYGESTIN) 5 mg tabletbaclofen (LIORESAL) 20 mg tabletBISACODYL RECTALBlack Cohosh 540 mg capclonazePAM (KLONOPIN) 1 mg tabletferrous sulfate 325 mg (65 mg iron) wnpolcFrlbl-8-IKF-EPA-Fish Oil (FISH OIL) 1,000 mg (120 mg-180 [...] ():Nancy Mittal, RN, RN 08/22/2017 4:50 PM [facility]igned[facility] Nurse Progress NoteHistory AND Physical:PACC Visit Date: N/AOsofie HANDP Scanned Date: 07/19/17 office notes outdated.Nurse Becky from [place] will try to send a current HANDPLabs Within Last 6 Months:CBC: Date 08/11/17BMP/CMP: Date 08/11/17 AST 435,ALT 644PT: Date 1/12/18PTT: Date 08/11/17Imaging Within Last 12 Months:N/ACardiac Testing:EKG in last 12 Months: Yes: Date: 08/14/17, Comment: SR non-specific STANDT waveabnormalityLast Menstrual Period:LMP Date: unknownRisk Assessment: Medical Date: 08/15/17 Stephanie Chaudhry CNPAnesthesia Review:Email sentNarrative:Resident tierney Pathak [phone] signed by guardian and scanned in epicTransportation by Maurice Conway to accompany patientPre-op Considerations:Quadriplegic ,Chart Check:Jules Mittal RNJanuary 2017 4:31 PMInstructions reviewed with nurse David PREOPERATIVE INSTRUCTIONSNo ref. provider found has scheduled you for your procedure at this surgerycenter:[facility]: [phone] -- [address] [facility] [id number].Please read below carefully for your personalized instructions.Blood [...] surgery.- NO jewelry, body piercings, makeup, nail kazakh, hairpins or contacts are nara worn the day of surgery.If you develop symptoms such as a fever, cold, or flu, or have other changes toyour health within TWO DAYS of scheduled surgery or the morning of surgery,please contact the surgery center above.Personal Belongings:- Leave ALL valuables and money at home or with family members.For Outpatient Procedures: - YOU MUST HAVE A RESPONSIBLE LEAD DENTAL ASSISTANT TAKE YOU HOME. A IMPLEMENTATION COORDINATOR OR CAB DRIVERCANNOT BE MADE A RESPONSIBLE LEAD DENTAL ASSISTANT.- We recommend that a responsible person stays [...] otherwise documented in primary service progress notes: [facility] contains updated information obtained within 48 hours of Surgery/Procedure.SIGNATURE : Desmond Marte MD PATIENT NAME: Diana CalabreseDATE: August 23, 2017 : 11:30 AM CSN: [id number] Lisa Grider RN, RN 08/23/2017 11:50 AM SignedPRE OP LEARNING ASSESSMENTPROCEDURE/SURGERY : SURGERY: Hysteroscopy, DANDC, Endometrial AblationREADINESS TO LEARNCOGNITIVE ABILITY: Confused at timesMOTIVATION TO LEARN: ReluctantFAMILY SUPPORT: caregiver presentPATIENT LEARNS BEST BY: Verbal InstructionFACTORS AFFECTING LEARNING: Other mentally challengedPHYSICAL LIMITATIONS AFFECTING LEARNING: Limited Mobility and Other Limitationsquadriplegic, traumatic brain injuryElectronically Signed By: Ann Grider RN In Department: [facility] CENTERCharla Grider RN, RN 08/23/2017 12:40 PM Signed Nursing Progress NotePatient Name: Diana CalabreseMRN: [id number] Location: [place] Surgery/ME Surgery [address] Quinones, HANDAnil dictated this morning. Consent with initials DANDC onit. stated he had discussed with POA, but miswrote on consent using abbrevinstead of words. Unable to reach POA at this time for clarification.This note was completed by: Traci Wakefield MD 08/23/2017 12:45 PM SignedPre-op note:Patient is non-communicative secondary to traumatic brain injury. She isscheduled for hysteroscopy, dilatation and curettage, and Chrissy endometrialablation. Consent inadvertantly had DANDC for dilatation and curettage.Patient's doctor and power of securities attorney understand the procedure being performed.Patient received medical clearance from Dr. Waters. [facility] NURSING PROGon 08-22-2017 NURSING PROG HNO ID: [id number] thor: Nancy (Rn) CALISTA Mittalervice: (none)Author Type: Registered NurseType: Nursing Progress NoteFiled: 08/22/2017 4:50 PMNote Text:PACC Nurse Progress NoteHistory AND Physical:PACC Visit Date: N/AOuts GLENDAP Scanned Date: 07/19/17 office notes outdated.Nurse Becky from [place] will try to send a current HANDPLabs Within Last 6 Months:CBC: Date 08/11/17BMP/CMP: Date 08/11/17 AST 435,ALT 644PT: Date 08/11/17PTT: Date 08/11/17Imaging Within Last 12 Months:N/ACardiac Testing:EKG in last 12 Months: Yes: Date: 08/14/17, Comment: SR non-specific STANDTwave abnormalityLast Menstrual Period:LMP Date: unknownRisk Assessment: Medical Date: 08/15/17 Stephanie Chaudhry CNPAnesthesia Review:Email sentNarrative:Resident of [place] [phone] signed by guardian and scanned in epicTransportation by Maurice Conway to accompany patientPre-op Considerations:Quadriplegic ,Chart Check:Jules Mittal RNJanuary 2017 4:31 PMInstructions reviewed with nurse David PREOPERATIVE INSTRUCTIONSNo ref. provider found has scheduled you for your procedure at [facility] center:[facility]: [phone] -- [address] [facility] [address].Please read below carefully for your personalized instructions.Blood [...] surgery.- NO jewelry, body piercings, makeup, nail kazakh, hairpins or contactsare to be worn the day of surgery.If you develop symptoms such as a fever, cold, or flu, or have otherchanges to your health within TWO DAYS of scheduled surgery or the morningof surgery, please contact the surgery center above.Personal Belongings:- Leave ALL valuables and money at home or with family members.For Outpatient Procedures: - YOU MUST HAVE A RESPONSIBLE LEAD DENTAL ASSISTANT TAKE YOU HOME. A IMPLEMENTATION COORDINATOR OR CABDRIVER CANNOT BE MADE A RESPONSIBLE LEAD DENTAL ASSISTANT.- We recommend that a responsible person stays [...] aspossible and regret any inconvenience.Nancy Mittal RN [facility] US Pelvis Completeon 017 US Pelvis Complete Patient Name: DIANA PUGH Ultrasound Exam Date/Time 07/21/2017 15:15:00 EST Exam US Pelvis Complete Ordering Physician ELVER QUINONES Accession Number [id number] CPT4 Codes 37081 () Reason For Exam Abnormal uterine bleeding [...] Transcribed Date and Time: 07/21/2017 4:32 Normal [facility] Vital Signs Date Time Vital Sign Value Performing Clinician Teresa serra 01-20-2025 07:47-0400 Body temperature 97.81 [degF] Danny Balderas MD Work Phone: [facility] 01-20-2025 07:47-0400 Diastolic blood pressure 63 mm[Hg] Danny Balderas MD Work Phone: [facility] 01-20-2025 07:47-0400 Heart rate 84 /min Danny Balderas MD Work Phone: [facility] 01-20-2025 07:47-0400 Respiratory rate 16 /min Danny Balderas MD Work Phone: [facility] 01-20-2025 07:47-0400 SaO2% (BldA) [Mass fraction] 99 % Danny Balderas MD Work Phone: [facility] 01-20-2025 07:47-0400 Systolic blood pressure 96 mm[Hg] Danny Balderas MD Work Phone: [facility] 01-20-2025 06:00-0400 Body mass index (BMI) [Ratio] 26.47 kg/m2 Danny Balderas MD Work Phone: [facility] 01-20-2025 06:00-0400 Body weight 76.66 kg Danny Balderas MD Work Phone: [facility] 01-17-2025 11:37-0400 Body height 170.2 cm Danny Balderas MD Work Phone: [facility] 07-11-2023 16:05-0500 Body temperature 97.11 [degF] Dakotah Dejesus MD Work Phone: [facility] 07-11-2023 16:05-0500 Diastolic blood pressure 58 mm[Hg] Dakotah Dejesus MD Work Phone: [facility] 07-11-2023 16:05-0500 Heart rate 67 /min Dakotah Dejesus MD Work Phone: [facility] 07-11-2023 16:05-0500 Respiratory rate 18 /min Dakotah Dejesus MD Work Phone: [facility] 07-11-2023 16:05-0500 SaO2% (BldA) [Mass fraction] 95 % Dakotah Dejesus MD Work Phone: [facility] 07-11-2023 16:05-0500 Systolic blood pressure 102 mm[Hg] Dakotah Dejesus MD Work Phone: [facility] 07-10-2023 13:27-0500 Body height 172.7 cm Dakotah Dejesus MD Work Phone: [facility] 07-10-2023 13:00-0500 Body mass index (BMI) [Ratio] 30.71 kg/m2 Dakotah Dejesus MD Work Phone: [facility] 07-10-2023 13:00-0500 Body weight 91.63 kg Dakotah Dejesus MD Work Phone: [facility] 05-09-2023 13:57-0400 Body height 188 cm Zi Wright MD Work Phone: [facility] 07-03-2021 19:25-0500 Diastolic blood pressure 59 mm[Hg] Juanjose Patton MD Work Phone: [facility] 07-03-2021 19:25-0500 Systolic blood pressure 91 mm[Hg] Juanjose Patton MD Work Phone: [facility] 07-03-2021 19:21-0500 Heart rate 75 /min Juanjose Patton MD Work Phone: [facility] 07-03-2021 19:21-0500 Respiratory rate 15 /min Juanjose Patton MD Work Phone: [facility] 07-03-2021 19:21-0500 SaO2% (BldA) [Mass fraction] 97 % Juanjose Patton MD Work Phone: [facility] 07-03-2021 15:22-0500 Body temperature 98.01 [degF] Juanjose Patton MD Work Phone: [facility] Encounters Encounter Date Encounter Type Care Provider Facility Start: 06-09-2025 ambulatory Venkat HONEYCUTT Faci lity:[facility] Start: 04-10-2025 End: 04-10-2025 ambulatory Venkat HONEYCUTT Facility:[facility] Start: 02-21-2025 ambulatory Venkat HONEYCUTT Faci lity:[facility] Start: 01-28-2025 End: 01-28-2025 ambulatory Venkat Dea HONEYCUTT Facility:[facility] Start: 01-20-2025 End: 01-20-2025 ambulatory Diana Paredes RN [facility] Start: 01-20-2025 End: 01-20-2025 Patient encounter procedure Daina Paredes RN [facility] Start: 01-14-2025 End: 01-20-2025 Evaluation and management of inpatient Danny Balderas MD Work Phone: [facility] Comment on above: Hypotension, unspeci fied hypotension type (Primary Dx); Disorientation; Functional quadriplegia (CMS/HCC) (HCC) Start: 01-13-2025 ambulatory Venkat Malin YINKA Faci lity:[facility] Start: 12-11-2024 End: 12-11-2024 ambulatory Venkat Dea HONEYCUTT [facility] Work Phone: Start: 12-11-2024 End: 12-11-2024 Departed Referred Venkat Malin -[facility] Start: 12-11-2024 End: 12-11-2024 ambulatory Venkat HONEYCUTT Facility:[facility] Start: 10-24-2024 End: 10-24-2024 ambulatory Venkat Delaneyredd HONEYCUTT [facility] Work Phone: Start: 10-24-2024 End: 10-24-2024 Departed Referred Venkat MASCORRO Start: 10-24-2024 End: 10-24-2024 ambulatory Venkat HONEYCUTT Facility:[facility] Start: 09-03-2024 End: 09-03-2024 ambulatory Venkat HONEYCUTT [facility] Work Phone: Start: 09-03-2024 End: 09-03-2024 Departed Referred Venkat Delaneymaura -[facility] Start: 09-03-2024 End: 09-03-2024 ambulatory Venkat HONEYCUTT Facility:[facility] Start: 07-25-2024 End: 07-25-2024 Departed Referred Venkat Delaneymaura -[facility] Start: 07-25-2024 End: 07-25-2024 ambulatory Venkat HONEYCUTT Facility:[facility] Start: 06-24-2024 ambulatory Venkat HONEYCUTT Faci lity:[facility] Start: 06-24-2024 Registered Referred Venkat Delaneymaura [facility] Start: 10-30-2023 End: 10-30-2023 ambulatory [facility] Work Phone: Start: 10-30-2023 End: 10-30-2023 [facility] Start: 10-30-2023 [facility] Start: 10-18-2023 End: 10-18-2023 ambulatory [facility] Work Phone: Start: 10-18-2023 End: 10-18-2023 [facility] Start: 10-09-2023 End: 10-09-2023 ambulatory [facility] Work Phone: Start: 10-09-2023 End: 10-09-2023 [facility] Start: 09-28-2023 End: 09-28-2023 ambulatory [facility] Work Phone: Start: 09-28-2023 End: 09-28-2023 [facility] Start: 09-28-2023 [facility] Start: 09-20-2023 End: 09-20-2023 ambulatory [facility] Work Phone: Start: 09-20-2023 End: 09-20-2023 Departed Referred [facility] Start: 09-19-2023 End: 09-19-2023 ambulatory [facility] Work Phone: Start: 09-19-2023 End: 09-19-2023 Departed Referred [facility] Start: 09-19-2023 Registered Referred [facility] Start: 08-31-2023 End: 08-31-2023 ambulatory [facility] Work Phone: Start: 08-31-2023 End: 08-31-2023 Departed Referred [facility] Start: 07-19-2023 End: 07-19-2023 Departed Referred [facility] Start: 07-07-2023 End: 07-11-2023 Evaluation and management of inpatient Dakotah Dejesus MD Work Phone: [facility] PCU 2E Comment on above: Urinary tract infect ion (Primary Dx) Start: 06-20-2023 End: 06-20-2023 ambulatory [facility] Work Phone: Start: 06-20-2023 End: 06-20-2023 Departed Referred [facility] Start: 06-08-2023 End: 06-08-2023 Subsequent hospital visit by physician Zi Wright MD Work Phone: [facility] Comment on above: Mass of lower inner quadrant of left breast Start: 05-09-2023 End: 05-09-2023 Office outpatient new 45 minutes Zi Wright MD Work Phone: [facility] Comment on above: Mass of lower inner quadrant of left breast (Primary Dx) Start: 04-26-2023 End: 04-26-2023 ambulatory [facility] Work Phone: Start: 04-26-2023 End: 04-26-2023 [facility] Start: 02-28-2023 End: 02-28-2023 ambulatory [facility] Work Phone: Start: 02-28-2023 End: 02-28-2023 [facility] Start: 12-29-2022 End: 12-29-2022 ambulatory [facility] Work Phone: Start: 12-29-2022 End: 12-29-2022 Departed Referred [facility] Start: 08-31-2022 End: 08-31-2022 ambulatory [facility] Work Phone: Start: 08-31-2022 End: 08-31-2022 [facility] Start: 06-30-2022 End: 06-30-2022 ambulatory [facility] Work Phone: Start: 06-30-2022 End: 06-30-2022 [facility] Start: 06-07-2022 Transcribe Orders Venkat paz Work Phone: [facility] Comment on above: Pain in unspecified joint (Primary Dx) Start: 02-28-2022 End: 02-28-2022 ambulatory [facility] Work Phone: Start: 02-28-2022 End: 02-28-2022 Departed Referred [facility] Start: 12-29-2021 End: 12-29-2021 [facility] Start: 09-28-2021 End: 09-28-2021 [facility] Start: 07-03-2021 End: 07-03-2021 Emergency department patient visit Juanjose Patton MD Work Phone: [facility] Emergency Dept Comment on above: Injury of head, init ial encounter (Primary Dx); Laceration of scalp, initial encounter Start: 05-21-2018 Patient encounter Maurice Mahoney ity:[facility] Start: 08-23-2017 End: 08-23-2017 Ambulatory [facility] Start: 07-21-2017 Ambulatory [facility] Procedures Date Procedure [...] Basic metabolic pane l calcium total Rafat Hnaey MD Work Phone: Plan of Treatment Date Care Activity Detail Author Start: 2050 RSV Immunization for Adults (1 - 1-dose 75+ series) RSV Immunization for Adults (1 - 1-dose 75+ series) [facility] Start: 2035 RSV Immunization age d 60 or older (1 - 1-dose 60+ series) RSV Immunization aged 60 or older (1 - 1-dose 60+ series) [facility] Start: 07-03-2031 DTaP/Tdap/Td vaccine (2 - Td or Tdap) DTaP/Tdap/Td vaccine (2 - Td or Tdap) [facility] Start: 07-03-2031 DTaP/Tdap/Td Vaccine s (2 - Td or Tdap) DTaP/Tdap/Td Vaccines (2 - Td or Tdap) [facility] Start: 2025 Zoster Vaccines (1 of 2) Zoste r Vaccines (1 of 2) [facility] Start: 03-31-2025 Influenza vaccination Influenz a Vaccine (Season Ended) [facility] Start: 03-31-2024 COVID-19 Vaccine ( season) COVID-19 Vaccine ( season) [facility] Start: 09-19-2023 Measurement of substance [facility] Start: 05-09-2023 End: 07-09-2024 MG Breast - bilateral Diagnostic Bilateral diagnostic mammogram Imaging Routine Mass of lower inner quadrant of left breast Expected: 05/09/2023, Expires: 07/09/2024 [facility] Work Phone: Comment on above: Expected: 05/09/2023 , Expires: 07/09/2024 Start: 05-09-2023 End: 07-09-2024 US Breast - left limited Left breast US limited Imaging Routine Mass of lower inner quadrant of left breast Expected: 05/09/2023, Expires: 07/09/2024 [facility] Comment on above: Expected: 05/09/2023 , Expires: 07/09/2024 Start: 03-31-2023 COVID-19 Vaccine ( season) COVID-19 Vaccine ( season) [facility] Start: 03-31-2023 Influenza vaccination Influenza Vacc ine (#1) [facility] Start: 06-07-2022 End: 06-07-2023 CT Lumbar spine WO contrast CT lumbar spine wo IV contrast Imaging Routine Pain in unspecified joint Expected: 06/07/2022, Expires: 06/07/2023 [facility] Work Phone: Comment on above: Expected: 06/07/2022 , Expires: 06/07/2023 Start: 06-07-2022 End: 06-07-2023 CT Pelvis WO contrast CT pelvis wo IV contrast Imaging Routine Pain in unspecified joint Expected: 06/07/2022, Expires: 06/07/2023 [facility] Comment on above: Expected: 06/07/2022 , Expires: 06/07/2023 Start: 03-31-2022 Influenza vaccination Influenza Vacc ine (#1) [facility] Start: 07-15-2021 COVID-19 Vaccine (4 - Booster for Pfizer series) COVID-19 Vaccine (4 - Booster for Pfizer series) [facility] Start: 07-15-2021 COVID-19 Vaccine (4 - Pfizer series) COVID-19 Vaccine (4 - Pfizer series) [facility] Start: 03-31-2021 Influenza vaccination Flu vaccine (# 1) [facility] Start: 2020 Screening for malign ant neoplasm of colon Colon cancer screen colonoscopy [facility] Start: 02-19-2020 Lipid panel Lipid screen [facility] Start: 2015 Diabetes screen Diabetes screen [facility] Start: 2015 Screening for malign ant neoplasm of breast Mammogram [facility] Start: 2005 Screening for malign ant neoplasm of cervix [facility] Start: 1996 Screening for malign ant neoplasm of cervix Pap smear [facility] Start: 1994 Hepatitis B Vaccines (1 of 3 - 19+ 3-dose series) Hepatitis B Vaccines (1 of 3 - 19+ 3-dose series) [facility] Start: 1993 Diabetes mellitus screening Diabetes Screening [facility] Start: 1993 Hepatitis C screening Hepatitis C Sc reening [facility] Start: 1990 HIV screening HIV screen [facility] Start: 1987 COVID-19 Vaccine (1) COVID-19 Vaccin e (1) [facility] Start: 1987 Depression Screening Depression Scre ening [facility] Start: 1976 MMR Vaccines (1 of 1 - Standard series) MMR Vaccines (1 of 1 - Standard series) [facility] Start: 1975 Hepatitis B Vaccines (1 of 3 - 3-dose series) Hepatitis B Vaccines (1 of 3 - 3-dose series) [facility] Start: 1975 Hepatitis C screening Hepatitis C sc reen [facility] Start: 1975 HIV screening HIV Screening [facility] [place] [facility] Start: 1975 Lipid panel Lipid Panel [facility] Start: 1975 Screening for malign ant neoplasm of colon [facility] Bacteria identified in Blood by Culture [facility] Work Phone: Immunizations Immunization Date Immunization Notes Care Provider [facility] 07-08-2023 influenza vac subuni t quadrivalent (Flucelvax) injection 0.5 mL Dakotah Dejesus MD Work Phone: [facility] 07-03-2021 tetanus toxoid, redu teodoro diphtheria toxoid, and acellular pertussis vaccine, adsorbed Juanjose Patton MD Work Phone: [facility] 05-04-2021 influenza virus vacc ine, unspecified formulation Venkat Malin Work Phone: [facility] Payers Date Payer Category Payer Self-pay 2017 Medicaid 2016 Medicaid [id number] Unknown [id number] 2.16.8 [id number] Unknown [id number] 2.16.8 [id number] Unknown [id number] 2.16.8 [id number] Unknown [id number] 2.16.8 [id number] Unknown [id number] 2.16.8 [id number] Unknown [id number] 2.16.8 [id number] Unknown [id number] 2.16.8 [id number] Unknown [id number] 2.16.8 [id number] Unknown [id number] 2.16.8 [id number] Unknown [id number] 2.16.8 [id number] Unknown [id number] 2.16.8 [id number] Social History Date Type Detail Facility Start: 09-06-2016 Tobacco smoking stat [facility] Ex-smoker [facility] Work Phone: Start: 09-06-2016 Tobacco use and exposure Smoke less tobacco non-user [facility] Work Phone: Start: 07-03-2021 End: 01-14-2025 Alcohol intake Current non-drinker of alcohol (finding) [facility] Work Phone: Start: 1975 Sex Assigned At Not on file [facility] [employer] Work Phone: Exposure to SARS-CoV -2 (event) Unable to assess [facility] Start: 1975 Sex Assigned At Female [facility] History of tobacco use Current smoker [facility] Start: 06-03-2022 End: 07-08-2023 History of Social function [facility] [place] Start: 06-03-2022 End: 07-08-2023 Alcohol Use Disorder Identification Test - Consumption [AUDIT-C] [facility] How often to you hav e a drink containing alcohol? Never [facility] Average Number of Drinks Not on file [facility] [place] Has the [employer], or [employer] threatened to shut off services in your home in past 12Mo No [facility] Are you now , , , , never or living with a partner? Never [facility] [place] Do you feel stress - tense, restless, nervous, or anxious, or unable to sleep at night because your mind is troubled all the time - these days [OSQ] Not at all [facility] (I/We) worried wheth er (my/our) food would run out before (I/we) got money to buy more. Never true [facility] Start: 06-03-2022 History SDOH Alcohol Frequency 1 [facility] Start: 05-31-2022 End: 06-10-2022 Exposure to SARS-CoV-2 (event) Not sure [facility] Tobacco smoking stat us DCIS Unknown if ever smoked [facility] Work Phone: Start: 02-28-2022 End: 10-04-2024 Sex Female (finding) [facility] Functional Status Date Assessment Result Facility [facility] Clinical Notes 05-09-2023 to 01-20-2025 Erika Gabriel RN - 01/20/2025 6:53 PM Deion Gabriel RN - 01/20/2025 6:53 PM Deion Gabriel RN - 01/20/2025 4:12 PM EDTJessica Hernandez RN - 01/17/2025 11:02 AM Deion Gabriel RN - 01/20/2025 4:12 PM EDT Note Date & Type Note Facility 01-20-2025 Nurse Note Pt taken to SNF with transportation [facility] 01-20-2025 Nurse Note Pt taken to SNF with transportation Report called to [facility] RN questions answered aware 1700 supervisor opening and picking. Pt IV dcd tip intact. Awaiting transport. Called [place] [facility] to request an updated patient medication list to be faxed to [phone] Pt arrived from ED, incontinent of urine and stool, cleaned and changed, external cath applied, pt A&O x 1, hallucinating, unable to do admit questions at this time, pt unable to move any extremities, blow in call light requested from [facility], bed alarm on for safety. documented in this encounter [facility] 01-20-2025 Telephone encounter Note S: Denise from [place] spoke with [facility] nurse regarding patient update B: Onset of symptoms/concern today A: Denise calling to updated Dr Malin patient was discharged from [facility] today and admitted to [place]. R: Message to provider. Reason for Disposition General information question, no triage required and triager able to answer question Protocols used: Information Only Call - No [id number] [facility] 01-20-2025 Miscellaneous Notes S: Denise from [place] spoke with [facility] nurse regarding patient update B: Onset of symptoms/concern today A: Denise calling to updated Dr Malin patient was discharged from [facility] today and admitted to [place]. R: Message to provider. Reason for Disposition General information question, no triage required and triager able to answer question Protocols used: Information Only Call - No [id number] documented in this encounter [facility] 01-20-2025 Nurse Note Report called to [facility] RN questions answered aware 1700 supervisor opening and picking. Pt IV dcd tip intact. Awaiting transport. [facility] 01-20-2025 Note Formatting of this n ote might be different from the original. Confirmed pickup time of 5:00pm by transport [facility]. at phone number [phone]. Location of facility drop off is [facility]. Facility notified via [facility], [facility] notified on secure chat. [facility] 01-20-2025 Note Formatting of this n ote might be different from the original. Confirmed pickup time of 5:00pm by transport [facility] at phone number [phone]. Location of facility drop off is [facility]. Facility notified via [employer], [facility] notified on secure chat. [facility] 01-20-2025 Miscellaneous Notes Confirmed pickup time of 5:00pm by transport [facility] at phone number [phone]. Location of facility drop off is [facility]. Facility notified via [employer], [facility] notified on secure chat. MAR, Med Rec and Updated Clinicals sent to [facility] via [employer] per T[facility] request. Pt is stable for DC. Attending to place DC orders and MAR. RN to complete ERNESTO. HIDE INSPECTOR tasked to arrange transport for 5:00 today and to sen DC Summary and MAR. SNF updated. Legal Guardian Eric [phone] called and messaged left @DC. Problem: Knowledge [...] or improved Outcome: Progressing Referral placed to [facility] via [facility] per [facility] request. Await review and response regarding ability to accept. [facility] notified. Pt adm to hosp from [facility] w AMS, Hypotension, dehydration, N/V. BP stable. HIDE INSPECTOR tasked to send return referral to SNF. [...] improved Outcome: Progressing documented in this encounter [facility] 01-20-2025 Note Formatting of this n ote might be different from the original. MAR, Med Rec and Updated Clinicals sent to [facility] via [facility] per TCC request. [facility] 01-20-2025 Note Formatting of this n ote might be different from the original. MAR, Med Rec and Updated Clinicals sent to [facility] via [facility] per TCC request. [facility] 01-20-2025 Hospital course Narrative Hospitalist Discharge Summary [...] ). Of note patient was originally at [place] emergency [facility], EMS had a blood pressure with systolic reading of 80-90 when he was taken there. ICU originally paged at [facility] however no acute issues requiring further intensive [...] signed off 01/15. 01/17 Referral placed to [facility] via [facility] per T[facility] request. [...] Disposition: Patient discharged in stable condition to [facility] . Greater than 31 minutes spent discharging the patient and coming up with patient discharge plan. Vitals: BP 96/63 (BP Location: Right arm, Patient Position: Sitting) Pulse 84 Temp 36.6 C (97.8 F) (Temporal) Resp 16 Ht 5' 7 (1.702 m) Wt 169 lb (76.7 kg) [...] MG/5ML suspension Commonly known as: Milk of Varioptictristen corleyzapine 15 MG tablet Commonly known as: Remeron [...] with you. Recommended Follow-up: Venkat Malin [address] [facility] [id number] Follow up Complexity of Follow up: [] Moderate Complexity: follow up within 7-14 calendar days (22512) [x] Severe Complexity: follow up within 7 calendar days (82410) Follow up Testing, Pending results or Referrals [...] MD Division of Hospitalist Medicine Acute care [facility] 01/20/2025, 9:30 PM [1] Past Medical History: [...] Vitamin D deficiency documented in this encounter [facility] 01-20-2025 Note Formatting of this n ote might be different from the original. Pt is stable for DC. Attending to place DC orders and MAR. RN to complete ERNESTO. HIDE INSPECTOR tasked to arrange transport for 5:00 today and to [facility] DC Summary and MAR. SNF updated. Legal Guardian Eric, called and messaged left @DC. [facility] 01-20-2025 Note Formatting of this n ote might be different from the original. Pt is stable for DC. Attending to place DC orders and MAR. RN to complete ERNESTO. HIDE INSPECTOR tasked to arrange transport for 5:00 today and to [facility] DC Summary and MAR. SNF updated. Legal Guardian Eric, called and messaged left @DC. [facility] 01-20-2025 Note Hospitalist Discharg e Summary Diana [...] ). Of note patient was originally at [place] emergency [facility], EMS had a blood pressure with systolic reading of 80-90 when he was taken there. ICU originally paged at [facility] however no acute issues requiring further intensive [...] signed off 01/15. 01/17 Referral placed to [facility] via [facility] per TCC request. [...] Disposition: Patient discharged in stable condition to [facility] . Greater than 31 minutes spent discharging the patient and coming up with patient discharge plan. Vitals: BP 96/63 (BP Location: Right arm, Patient Position: Sitting) Pulse 84 Temp 36.6 ?C (97.8 ?F) (Temporal) Resp 16 Ht 5' 7 (1.702 m) Wt 169 lb (76.7 kg) [...] known as: Mucinex (more content not included)... [facility] 01-20-2025 Note Hospitalist Progress Note 01/20/2025 Subjective: Admit Date: 01/14/2025 PCP: Venkat Malin Room#: [id number] A BRIEF HOSPITAL COURSE: 49-year-old patient with past medical history of Major depressive disorder, anxiety, bipolar disorder, Alzheimer's dementia, hypertension, quadriplegia who presented with concerns of altered mentation and low blood pressure from his nursing facility (of note has not had an okay visit for 2 years, now with court-appointed guardian Eric ). Of note patient was originally at [place] emergency [facility], EMS had a blood pressure with systolic reading of 80-90 when he was taken there. ICU originally paged at [facility] however no acute issues requiring further intensive [...] signed off 01/15. 01/17 Referral placed to [facility] via [facility] per TCC request. [...] 7 LIVER PROFILE: No results for input(s): AST, ALT, BILITOT, ALKPHOS, PROT in the last 72 hours. No lab exists for component: LABALBU PT/INR: No results for input(s): PROTIME, INR in the last 72 hours. CARDIAC ENZYMES: No results for input(s): TROPONINI in the last 72 hours. Procalcitonin: No results found for: PROCAL COVID-19 PCR: No results for input(s): COVID19 in the last 72 hours. Objective: Vitals: BP 96/63 (BP Location: Right arm, Patient Position: Sitting) Pulse 84 Temp 36.6 ?C (97.8 ?F) (Temporal) Resp 16 Ht 5' 7 (1.702 m) Wt 169 lb (76.7 kg) [...] to constipation resolved - currently just awaiting correction facility placement/return -Labs and vitals have remained [...] Moreno Relation: Oth (more content not included)... [facility] 01-20-2025 History of Presen t illness Narrative Hospitalist Progress Note 01/20/2025 Subjective: Admit Date: 01/14/2025 PCP: Venkat Malin Room#: [id number] A BRIEF HOSPITAL COURSE: 49-year-old patient with past medical history of Major depressive disorder, anxiety, bipolar disorder, Alzheimer's dementia, hypertension, quadriplegia who presented with concerns of altered mentation and low blood pressure from his nursing facility (of note has not had an okay visit for 2 years, now with court-appointed guardian Eric ). Of note patient was originally at [place] [facility], EMS had a blood pressure with systolic reading of 80-90 when he was taken there. ICU originally paged at [facility] however no acute issues requiring further intensive [...] signed off 01/15. 01/17 Referral placed to [facility] [place] via [facility] per [facility] request. Await review and response regarding ability [...] 7 LIVER PROFILE: No results for input(s): AST, ALT, BILITOT, ALKPHOS, PROT in the last 72 hours. No lab exists for component: LABALBU PT/INR: No results for input(s): PROTIME, INR in the last 72 hours. CARDIAC ENZYMES: No results for input(s): TROPONINI in the last 72 hours. Procalcitonin: No results found for: PROCAL COVID-19 PCR: No results for input(s): COVID19 in the last 72 hours. Objective: Vitals: BP 96/63 (BP Location: Right arm, Patient Position: Sitting) Pulse 84 Temp 36.6 C (97.8 F) (Temporal) Resp 16 Ht 5' 7 (1.702 m) Wt 169 lb (76.7 kg) [...] to constipation resolved - currently just awaiting correction facility placement/return -Labs and vitals have remained [...] Florencio Henning MD Division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 [facility] and she would like to return there at discharge. HIDE INSPECTOR tasked to create referral to [facility]. Will need to confirm level of care. DC plan: Return to [facility] Fatuma Palma RN Problem: Knowledge [...] if this changes. documented in this encounter [facility] 07-11-2023 Note Formatting of this n ote might be different from the original. Dc to [facility] this evening at 6:00. [facility] to transport. Ambulance form completed. [facility]port message sent the [place] to notify them of patients return. Left message for patients legal Guardian, Network Architect Manager [place] to notify him of discharge and the supervisor opening and picking time. Report number provided to the bedside nurse. [facility] 07-11-2023 Note Formatting of this n ote might be different from the original. Dc to [facility] this evening at 6:00. [facility] to transport. Ambulance form completed. [facility] message sent the [place] to notify them of patients return. Left message for patients legal Guardian, Network Architect Manager [place] to notify him of discharge and the supervisor opening and picking time. Report number provided to the bedside nurse. [facility] 07-11-2023 Note Formatting of this n ote might be different from the original. Received message from bedside RN; reports Dr. Waters is ready for DC. 2 [facility] aware. HIDE INSPECTOR tasked to send final MAR, DC summary and final updates to [facility]. [facility] 07-11-2023 Note Formatting of this n ote might be different from the original. Received message from bedside RN; reports Dr. Waters is ready for DC. 2 [facility] aware. HIDE INSPECTOR tasked to send final MAR, DC summary and final updates to [facility]. [facility] 07-11-2023 Note Formatting of this n ote might be different from the original. Received message from Dr. Waters; states patient is now complaining of abdominal pain. CT abdomen ordered. Will plan for discharge later today. Bedside RN and 2 [facility] aware. 1045: TCC section of ERNESTO completed. [facility] 07-11-2023 Note Formatting of this n ote might be different from the original. Received message from Dr. Waters; states patient is now complaining of abdominal pain. CT abdomen ordered. Will plan for discharge later today. Bedside RN and 2 [facility] aware. 1045: TCC section of ERNESTO completed. [facility] 07-11-2023 Hospital course Narrative Images from the original note were not included. Discharge Summary Daina Calabrese : 1975 ADMIT DATE: 07/07/2023 DISCHARGE [...] also stopped. She is returning to the [facility] today. SIGNIFICANT DIAGNOSTIC STUDIES: Labs xrays CONSULTANTS: [...] Complexity: follow up within 7-14 calendar days (36607) [] Severe Complexity: follow up within 7 calendar days (18575) FOLLOW UP TESTING, PENDING RESULTS OR REFERRALS AT TRANSITIONAL CARE VISIT: [] Yes [] No PENDING STUDIES: none DISPOSITION: Skilled Facility FACILITY/HOME CARE AGENCY NAME: [facility] Follow up with Dr Malin at the [facility] INSTRUCTIONS TO MA/SW: Please call patient [...] 07/11/2023, 8:54 AM documented in this encounter [facility] 07-11-2023 Note Formatting of this n ote might be different from the original. Noted patient discharge today. Received message from [facility]. Patient is a bed hold and no authorization required to return. Noted patient has Legal Guardian; Network Architect Manager Eric Chappell: office, or Cell, . Spoke with Legal Guardian over the phone. Explained role. He is in agreement to return to [facility] when ready. He is aware to anticipate DC today. Facility updated. Will discuss in rounds today. [facility] 07-11-2023 Note Formatting of this n ote might be different from the original. Noted patient discharge today. Received message from [facility]. Patient is a bed hold and no authorization required to return. Noted patient has Legal Guardian; Network Architect Manager Eric Chappell: office, or Cell, . Spoke with Legal Guardian over the phone. Explained role. He is in agreement to return to [facility] when ready. He is aware to anticipate DC today. Facility updated. Will discuss in rounds today. [facility] 07-10-2023 Hospital Discharg e instructions Tatianna Da [...] assistance Toileting Total assistance Feeding Minimal assistance Lens Coater Total assistance Med Delivery no Wound Care Documentation and Therapy: Elimination: Continence: Bowel: no Bladder: no Urinary Catheter: None Colostomy/Ileostomy/Ileal Conduit: None Date of Last BM: 07/11/23 Intake/Output Summary (Last 24 hours) at 07/10/20231935 Last data filed at 07/10/2023 0800 Gross [...] Discharging to Facility/ Agency Name: Return to [facility] Address: [address] [place] [address] Fax: Dialysis Facility (if applicable) Name: Address: Dialysis Schedule: Phone: Fax: Dredgemaster/Manager Hotel signature: ICIAN SECTION Prognosis: poor Condition at [...] H&P PHYSICIAN SIGNATURE: documented in this encounter [facility] 07-10-2023 Consult note Associated Order (s): PHARMACY TO DOSE VANCO Vancomycin therapy has been discontinued by Dr Pelayo on 07/10/23. Thank you for the consult. Pharmacy signing off for vancomycin dosing. Mayra Cespedes PharmD Date: 07/10/23 Time: 1:29 PM [facility] 07-10-2023 Consult note Associated Order (s): PHARMACY TO DOSE VANCO Vancomycin therapy has been discontinued by Dr Pelayo on 07/10/23. Thank you for the consult. Pharmacy signing off for vancomycin dosing. 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 year [...] Last 1 Encounters: 07/07/23 1.727 m (5' 8) Wt Readings from Last 1 Encounters: 07/07/23 [...] from the original note were not included. [facility] - Infectious Diseases Attending Consult Note Reason for Consult: UTI Bacteremia History of Present Illness: Patient is 47 year old admitted to [facility] because of mentation changes. History [...] IVPB Mini-Bag Plus 1,000 mg IntraVENous q24h Ykoo M Esterle, DO Stopped at 07/08/231856 clonazePAM [...] M Esterle, DO 0.4 mg at 07/08/23 09 topiramate (Topamax) tablet 200 mg 200 mg [...] min Stress: No Stress Concern Present (07/08/2023) [place] - Occupational Stress Questionnaire Feeling of Stress : Not at all Social Connections: Unknown (07/08/2023) Social Connection and Isolation Panel [NHANES] Frequency of Communication with Friends and Family: Patient refused Frequency of Social Gatherings with Friends and Family: Patient refused Attends Buddhism Services: Never Active Member of Clubs or [...] for open encounter. Prem Raya MD, MACP, KENDYSA documented in this encounter [facility] 07-10-2023 Note Formatting of this n ote might be different from the original. [facility]. Await review and response regarding ability to accept. TCC notified. [facility] 07-10-2023 Note Formatting of this n ote might be different from the original. Referral placed to Return [facility] via [facility] per TCC request. Await review and response regarding ability to accept. TCC notified. [facility] 07-10-2023 Note Formatting of this n ote might be different from the original. Care Managment Initial Assessment Date: 07/10/2023 Patient Name: Diana Calabrese : 1975 Patient Information Source of Information: Patient Cognition/Language: Impaired, Other (Comment) (Delayed -TBI) Permission given to speak with patient customer relations representative/caregiver as indicated: Yes Confirmation of Payer with patient/family: Yes Payer Name: Blaise Moreno [phone], friend, Erin Mora [phone], friend : No Confirmation of Primary Care Physician: Confirmed PCP Name: Venkat Malin Primary Caregiver: Other (Comment) If assistance needed, confirmed caregiver ready, willing and able to care for patient at discharge: Confirmed with: Living Arrangements Current Residence: Number of Floors Number of Entry Steps: Bed/Bath Levels: Facility: Longterm/Residental Care Facility Name: [facility] Plan to Return: Yes Lives with: Other (Comment) Support Systems: Comments (Other) Activities of Daily Living Ambulation: Total Care (Patient is bed bound) Bathing/Dressing: Total Care Elimination/Continence/Toileting: Total Care Feeding: Total Care Who Assists with Activities of Daily Living: [facility] Instrumental Activities of Daily Living [...] expects to be discharged to: Return to [facility] Discharge Planning Actions: Continue to follow, [facility] Facility referral indicated Patient's Choice Rights and [employer] and Collaborative Relationships Disclosed as Indicated for Post-Acute Care: Interdisciplinary Team Engagement: Social Work Referral for: Additional Information: Chart reviewed. [facility] Blood cultures pending. HX of TBI, Bipolar, Paraplegia. Regular diet. On IV Vancomycin. Met with patient at bedside today. Explained role. Patient informs she is from [facility] and she would like to return there at discharge. HIDE INSPECTOR tasked to create referral to [facility]. Will need to confirm level of care. DC plan: Return to [facility] Fatuma Palma RN [facility] 07-10-2023 Note Formatting of this n ote might be different from the original. Care Managment Initial Assessment Date: 07/10/2023 Patient Name: Diana Calabrese : 1975 Patient Information Source of Information: Patient Cognition/Language: Impaired, Other (Comment) (Delayed -TBI) Permission given to speak with patient customer relations representative/caregiver as indicated: Yes Confirmation of Payer with patient/family: Yes Payer Name: Blaise Moreno [phone], friend, Erin Mora [phone], friend : No Confirmation of Primary Care Physician: Confirmed PCP Name: Venkat Malin Primary Caregiver: Other (Comment) If assistance needed, confirmed caregiver ready, willing and able to care for patient at discharge: Confirmed with: Living Arrangements Current Residence: Number of Floors Number of Entry Steps: Bed/Bath Levels: Facility: Longterm/Residental Care Facility Name: [facility] Plan to Return: Yes Lives with: Other (Comment) Support Systems: Comments (Other) Activities of Daily Living Ambulation: Total Care (Patient is bed bound) Bathing/Dressing: Total Care Elimination/Continence/Toileting: Total Care Feeding: Total Care Who Assists with Activities of Daily Living: [facility] Instrumental Activities of Daily Living [...] expects to be discharged to: Return to [facility] Discharge Planning Actions: Continue to follow, [facility] Facility referral indicated Patient's Choice Rights and [employer] and Collaborative Relationships Disclosed as Indicated for Post-Acute Care: Interdisciplinary Team Engagement: Social Work Referral for: Additional Information: Chart reviewed. [facility]. Blood cultures pending. HX of TBI, Bipolar, Paraplegia. Regular diet. On IV Vancomycin. Met with patient at bedside today. Explained role. Patient informs she is from [facility] and she would like to return there at discharge. HIDE INSPECTOR tasked to create referral to [facility]. Will need to confirm level of care. DC plan: Return to [facility] Fatuma Palma RN [facility] 07-09-2023 Consult note Formatting of th is note is different from the original. 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 year [...] Last 1 Encounters: 07/07/23 1.727 m (5' 8) Wt Readings from Last 1 Encounters: 07/07/23 87.9 kg (193 lb 12.6 oz) Plan: Will initiate vancomycin 1250 mg IV every 12 hours based on predicted AUC of 481 mg/L.hr . Goal AUC is 400-600 mg/L.hr. Random level will be scheduled for 07/10/2023 @ 06:00. Thank you for the consult. Will continue to follow. [facility] 07-09-2023 Consult note Associated Order (s): IP CONSULT TO INFECTIOUS DISEASES Images from the original note were not included. [facility] - Infectious Diseases Attending Consult Note Reason for Consult: UTI Bacteremia History of Present Illness: Patient is 47 year old admitted to [facility] because of mentation changes. History [...] Yoko M Esterle, DO 0.4 mg at 07/08/2338 topiramate (Topamax) tablet 200 mg 200 mg [...] min Stress: No Stress Concern Present (07/08/2023) [place] [employer] Health - Occupational Stress Questionnaire Feeling of Stress : Not at all Social Connections: Unknown (07/08/2023) Social Connection and Isolation Panel [NHANES] Frequency of Communication with Friends and Family: Patient refused Frequency of Social Gatherings with Friends and Family: Patient refused Attends Buddhism Services: Never Active Member of Clubs or [...] accounting for open encounter. Prem Raya MD, [facility], FIDSA [employer] Work Phone: 07-09-2023 Plan of care note [...] medications per MAR, provide a restful environment. [employer] 07-08-2023 History and physical note Department of [...] min Stress: No Stress Concern Present (07/08/2023) [place] [employer] Health - Occupational Stress Questionnaire Feeling of Stress : Not at all Social Connections: Unknown (07/08/2023) Social Connection and Isolation Panel [NHANES] Frequency of Communication with Friends and Family: Patient refused Frequency of Social Gatherings with Friends and Family: Patient refused Attends Buddhism Services: Never Active Member of Clubs or [...] WATERS DO 07/08/23 9:35 AM [facility] 07-08-2023 History and physical note Department of [...] dementia (HCC) Anemia Anxiety Bipolar 1 disorder ([facility]) Cholecystitis with cholelithiasis SCHEDULED FOR SURGERY TODAT (11/03/2016) Constipated Dementia ([facility]) Dysarthria Dysphagia Elevated liver enzymes [...] min Stress: No Stress Concern Present (07/08/2023) [place] [employer] - Occupational Stress Questionnaire Feeling of Stress : Not at all Social Connections: Unknown (07/08/2023) Social Connection and Isolation Panel [NHANES] Frequency of Communication with Friends and Family: Patient refused Frequency of Social Gatherings with Friends and Family: Patient refused Attends Buddhism Services: Never Active Member of Clubs or [...] 07/08/23 9:35 AM documented in this encounter [facility] 07-08-2023 Plan of care note [...] Recommendations to address these barriers include . [facility] 07-07-2023 Note Formatting of this [...] time. Please reach out if this changes. [employer] Phone: 07-07-2023 Note Formatting of this n [...] time. Please reach out if this changes. [employer] Phone: 07-07-2023 Emergency department Note Bed: 14 Expected date: Expected time: Means of arrival: Comments: Barbara Read RN 07/07/23 1510 [employer] 07-07-2023 Emergency department Note Emergency Department Encounter [facility] ED Patient: Diana Calabrese : [...] provider for clarification. Dakotah Dejesus MD Acute [facility] Dakotah Dejesus MD 07/07/232049 Dakotah Dejesus MD 07/07/232131 Arrived via ems from [facility], [facility] AMS per staff, A/0 x3 per EMS, patient A/0 x3, GCS 15, able to speak in slow clear sentences and respond to questions, providing limited pmhx, placed on monitor, continue with plan of care, patient with call light within reach Bed: 14 Expected date: Expected time: Means of arrival: Comments: Barbara Read RN 07/07/23 1510 documented in this encounter [facility] 07-07-2023 Emergency department Triage note Arrived via ems from [facility], [facility] AMS per staff, A/0 x3 per EMS, patient A/0 x3, GCS 15, able to speak in slow clear sentences and respond to questions, providing limited pmhx, placed on monitor, continue with plan of care, patient with call light within reach [facility] 07-07-2023 Physician Emergency department Note Emergency Department Encounter [facility] ED Patient: Diana Calabrese : [...] for clarification. Dakotah Dejesus MD Acute Care [facility] Dakotah Dejesus MD 07/07/232049 Dakotah Dejesus MD 07/07/232131 [facility] 05-09-2023 History of Presen t illness Narrative Images from the original note were not included. General Surgery History and Physical Zi Wright MD, MPH Patient ID: Diana Calabrese [id number] 47 y.o. 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 Malin HPI: Diana Calabrese is a 47 y.o. female who presents with abnormal US of L breast Patient presents today for evaluation of L breast lesion found on exam and screening US. Patient comes from [facility] and is joined by her [...] anywhere is her chart both paper from [place] or from EMR. Patient states that she [...] kg/m Physical Exam Exam conducted with a bunch maker present. Constitutional: General: She is not in [...] Work Phone: Evaluation noteNo assessment information available [facility] Work Phone: Evaluation note* Diagnosis Mass of lower inner quadrant of left breast- Primary [facility] Diagnosis Mass of lower inner quadrant of left breast [facility] Diagnosis Urinary tract infection- Primary Urinary tract infection, site not specified Urinary tract infection Urinary tract infection, site not specified [facility] Diagnosis Pain in unspecified joint- Primary [facility]* Diagnosis Disorientation Other general symptoms Functional quadriplegia (CMS/HCC) (HCC) Functional quadriplegia Hypotension, unspecified hypotension type Hypotension, unspecified hypotension type [facility])No reason for referral information availableW[facility] Work Phone: Summary Purpose Family History No Family History Records FoundNo Family History Records FoundNo Family History Records FoundNo Family History Records FoundNo Family History Records FoundNo Family History Records FoundNo Family History Records Found Advance Directives No Advanced Directives Records FoundDocuments on File Type Date Recorded 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 ACP-Advance Directive ACP-Power of Network Architect Manager ACP-Power of Network Architect Manager 10/02/2020 3:31 PM PA IN MGNT- POA Latest Code Status on File Code Status Date Activated Date Inactivated Comments Full Code 11/03/2016 4:21 PM 11/04/2016 7:24 PM Full Code 11/03/2016 10:26 AM 11/03/2016 4:10 PM Documents on File Type Date Recorded 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 Advance Directives and Livin g Will 06/08/2023 2:26 PM Latest Code Status on File Code Status Date Activated Date Inactivated Comments Full Code 07/07/2023 10:13 PM 07/11/2023 9:26 PM Documents on File Type Date Recorded 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 Power of Network Architect Manager 01/14/2025 10:25 AM Advance Directives and [...] Communication Erin Mora Other Health Care Agent Ericmiah Chappell Legal Guardian Health Care Agent Blaise Moreno Other First Alternate Health Care Agent Chief Complaint and Reason for Visit Chief Complaint LABWORK SENIOR CARE LAB WORK Chief Complaint SENIOR CARE LABWORK Chief Complaint SENIOR CARE LABWORK LABWORK Chief Complaint SENIOR CARE LABWORK SENIOR CARE LABWORK Chief Complaint LABWORK SENIOR CARE LABWORK Chief Complaint SENIOR CARE LABWORK SENIOR CARE LAB WORK LABWORK Chief Complaint SENIOR CARE LABWORK SENIOR CARE LAB WORK LABWORK LABWORK Chief Complaint SENIOR CARE LABWORK SENIOR CARE LAB WORK LABWORK LABWORK LABWORK Chief Complaint SENIOR CARE LABWORK SENIOR CARE LAB WORK LABWORK LABWORK LABWORK LABWORK Chief Complaint SENIOR CARE LABWORK SENIOR CARE LAB WORK LABWORK LABWORK LABWORK LABWORK LABWORK Chief Complaint SENIOR CARE LAB WOR K LABWORK LABWORK LABWORK LABWORK LABWORK LABWORK Chief Complaint SENIOR CARE LAB WOR K LABWORK LABWORK LABWORK LABWORK LABWORK LABWORK LABWORK Chief Complaint Admit Date LABWORK June 24, 2024 5:00am SENIOR CARE LAB WORK July 25 4:00am SENIOR CARE LAB WORK September 03, 2024 5:00am Chief Complaint Admit Date SENIOR CARE LAB WORK July 25 4:00am SENIOR CARE LAB WORK September 03, 2024 5:00am SENIOR CARE LAB WORK October 24, 2024 4 :00am Chief Complaint Admit Date SENIOR CARE LAB WORK September 03, 2024 5:00am SENIOR CARE LAB WORK October 24, 2024 4 :00am LABOWRK December 11, 2024 5:00a m Reason for Referral Specialty Diagnoses / Procedures Referred By Fabian singh Referred To Contact Radiology Diagnoses Pain in unspecified joint Procedures CT pelvis wo IV contrast Venkat Malin[address] [place] [address] Referral ID Status Reason Start Date Expiration Date V isits Requested Visits Authorized [id number] Authorized 06/07/2022 12/04/2022 1 1 Specialty Diagnoses / Procedures Referred By Contac t Referred To Contact Radiology Diagnoses Pain in unspecified joint Procedures CT lumbar spine wo IV contrast Venkat Malin [address] [place] [address] Referral ID Status Reason Start Date Expiration Date V isits Requested Visits Authorized [id number] Authorized 06/07/2022 12/04/2022 1 1 Additional Source Comments INFORMATION SOURCE (unrecogn ized section and content) DATE CREATED AUTHOR 01/22/2018 [facility] DATE CREATED AUTHOR AUTHOR'S ORGANIZ ATION 01/23/2018 [facility] DATE CREATED AUTHOR AUTHOR'S ORGANIZ ATION 06/20/2018 [facility] [place] DATE CREATED AUTHOR AUTHOR'S ORGANIZ ATION 08/03/2021 [facility] DATE CREATED AUTHOR AUTHOR'S ORGANIZ ATION 11/21/2022 [facility] DATE CREATED AUTHOR AUTHOR'S ORGANIZ ATION 01/26/2025 [facility] DATE CREATED AUTHOR AUTHOR'S ORGANIZ ATION 06/09/2025 [facility] Reason for Visit (unrecogniz ed section and content) Reason Comments Fall Per EMS, patient chris macias out of bed 3ft, from long-term, has laceration to back of head, arrives with C-collar. 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 Malin Reason Comments Altered Mental Status Per SNF, A/0 x3 pe r EMS Specialty Diagnoses / Procedures Referred By Contac t Referred To Contact Diagnoses Urinary tract infection Procedures . Yoko Waters M, DO [address] [place] [address] [facility] [address] [place] [address] Referral ID Status Reason Start Date Expiration Date Visits Re quested Visits Authorized [id number] 1 1 Reason Onset Date Comments Other 01/20/2025 Reason Comments Altered Mental Status Specialty Diagnoses / Procedures Referred By Contac t Referred To Contact Diagnoses Hypotension Disorientation Functional quadriplegia (CMS/HCC) (HCC) Hypotension, unspecified hypotension type Procedures ... Daja Vogel MD [address] [place] [address] Phone: tel: fax: [facility] [address] [place] [address] Phone: tel: Referral ID Status Reason Start Date Expiration Date Visits Re quested Visits Authorized [id number] 1 1 Scheduled Active and Recently Administ ered Medications (unrecognized section and content) Medication Order 07/01/2021 07/02/2021 07/03/2021 lidocaine-EPINEPHrine 1 %-1:[id number] injection 20 mL 20 mL, IntraDERmal, ONCE, On 07/03/21 at 1845, For 1 dose 1845 (Due) Scheduled Medication Order 07/09/2023 07/10/2023 07/11/2023 baclofen (Lioresal) tablet 10 mg 10 mg, Oral, 3 times daily, First dose on Mon07/07/23 at 2215 1004 (Given - Provider: Dena Pelaez RN)1530 (Given - Provider: Dena Pelaez, RN)2044 (Given - Provider: Azucena Godfrey RN) [...] 1014 (Given - Provider: Tatianna Da Silva, RN) topiramate (Topamax) tablet 200 mg 200 mg, Oral, Daily, First dose on 07/08/23 at 0900, Do not crush, chew, or split. 1004 (Given - Provider: Dena Pelaez RN) 1234 (Given - Provider: Tatianna Da Silva RN) 1013 (Given - Provider: Tatianna Da Silva, RN) vancomycin IVPB 1250 mg in 250 mL NS (premix) (CANCELED) 1,250 mg, IntraVENous, Administer over 90 Minutes, Every 12 hours, First dose on 12/10/23 at 0930, premix bag, Suspected Indication (Select all that apply): Sepsis of Unknown Etiology 1016 (New Bag - Provider: Dena Pelaez RN)1146 (Stopped - Provider: Dena Pelaez RN)2033 (New Bag - Provider: Azucena Godfrey RN)2203 (Stopped - Provider: Azucena Godfrey RN) Continuous [...] RN)1534 (See Alternative - Provider: Tatianna Da Silva [...] Jessica Hernandez RN)213 (Given - Provider: Diane Laguerre, MEGHNA) 0814 [...] Diane Laguerre, MEGHNA)1451 (Given - Provider: Erika Gabriel RN) pantoprazole [...] Hernandez RN) 0813 (Given - Provider: Erika Gabreil RN) topiramate (Topamax) tablet 100 mg 100 [...] 1402 (See Alternative - Provider: Liborio Mendoza, MEGHNA) acetaminophen (Tylenol) tablet 650 mg(Linked Group 1) [...] Status Dates Venkat HONEYCUTT Attending Provider Active 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 Relationship Specialty Start Date End Date Yoko Waters, DO [address] [place] [address] PCP - General 11/02/16 Team Status: Inactive Member Role Status Dates Venkat Malin Attending Provider Active 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 Relationship Specialty Start Date End Date Venkat Malin [address] [place] [id number] PCP - General Internal Medicine 06/03/22 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 Relationship Specialty Start Date End Date Venkat Malin [address] [place] [id number] PCP - General Internal Medicine 06/03/22 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 Relationship Specialty Start Date End Date Venkat Malin [address] [place] [id number] PCP - General Internal Medicine 06/03/22 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 [facility]. provides no warranty or guarantee of the accuracy or completeness of information in this document.
[2025-07-30 09:01] LABS: Hematocrit 36.6 % (37-47); Hemoglobin 11.1 g/dL (12.0-15.0); Mean Corp Hgb Conc 30.3 g/dL (32-36); Mean Corpuscular Volume 88.6 fL (81-99); Mean Platelet Vol. 10.9 fl (6.2-12.0); Platelet Count 368 K/mm3 (150-450); RBC Distribution Width CV 15.1 % (11.6-14.6); RBC Distribution Width SD 49.1 fl (35.1-43.9); Red Blood Count 4.13 M/mm3 (4.2-5.4); White Blood Count 7.9 K/mm3 (4.4-11.0)
[2025-07-30 09:13] LABS: AST(SGOT) 17 U/L (<=31); Alanine Aminotransfer ALT/SGPT 10 U/L (<=34); Albumin, Serum 2.9 g/dL (3.5-5.0); Alkaline Phosphatase 151 U/L (35-104); Anion Gap 9 (7-18); BUN 18 mg/dL (4-19); BUN/Creat Ratio 29.0 RATIO (10-20); Calcium,Total 8.9 mg/dL (7.6-11.0); Carbon Dioxide 23.1 mmol/L (20.0-29.0); Chloride 107 mmol/L (96-106); Globulin 4.4 g/dL (2.2-4.2); Glucose 86 mg/dL (70-99); Potassium 3.7 mmol/L (3.5-5.1)
== END ==
LOC: OLS.SANC 05:00
PROVIDERS: Visit Provider Internal Medicine
DX: D64.9 Anemia, unspecified (principal); I10 Essential (primary) hypertension
CPT/HCPCS: 36415; 80053; 85027